=== PATIENT | female | born 1995 | race Caucasian/White ===

== ENCOUNTER 2019-02-02 14:21 | Emergency (ER) | payer MEDICAID, SELFPAY ==
[2019-02-02 14:28] VITALS: BP 111/59; PULSE 93; RESP 16; TEMP 37; O2SAT 98
--- NOTE | 2019-02-02 15:21 | DI.CT_ITS ---
EXAM: CT ABDOMEN PELVIS W CLINICAL HISTORY: abdominal pain after IUD placement TECHNIQUE: Imaging Protocol: Axial computed tomography images with coronal and sagittal reformatted images were created and reviewed CONTRAST MATERIAL: Intravenous: Omnipaque 350 Contrast volume:100 mL contrast route:IV - Oral: No COMPARISON: ABD PELVIS WITH CONTRAST from 06/05/2016 FINDINGS: ABDOMEN: Lung Bases: Normal where visualized. Liver: Normal density. No measurable mass. Gallbladder and biliary tract: No radiodense calculus or dilation. Pancreas: Normal density, no abnormal calcifications or inflammatory process. Spleen: Normal. Kidneys: Normal size, contour and axis. No radiodense stones or obstructive uropathy. No masses seen. Adrenal glands: No masses seen. Abdominal Aorta: Abdominal portion non-dilated. PELVIS: Bladder: Symmetric distention, no gross wall thickening. Bowel: No obstruction or bowel wall thickening. The appendix is normal in size without evidence of ad jacent mesenteric fat stranding or adjacent fluid collection. Peritoneal cavity: No ascites, collection or mesenteric inflammatory response. Bones: Within normal limits. Reproductive organs: Within normal limits. Note is made of an intrauterine device within the endometr ial cavity. The IUD appears well positioned. Follicles are seen in the ovaries bilaterally. Lymph nodes: Unremarkable. Impression: No evidence of an acute abdomen. DATA REPOSITORY: All CT scans at this facility are submitted to the National Radiology Data Registry (NRDR) Dose Index Registry (DIR) with the [employer] (A[employer]). RADIATION OPTIMIZATION: All CT scans at this facility use at least one of these dose optimization te chniques: automated exposure control; mA and/or kV adjustment per patient size (includes targeted exa ms where dose is matched to clinical indication); or iterative reconstruction.
[2019-02-02] MEDS: Normal Saline 1,000 ML 1000 ML IV ×2 (15:32→16:05)
[2019-02-02 15:40] LABS: Abs Immature Grans 0.02 k/cumm (0.0-0.09); Absolute Basophil Count 0.04 k/cumm (0.0-0.2); Absolute Eosinophil Count 0.25 k/cumm (0.0-0.7); Absolute Lymphocyte Count 1.66 k/cumm (1.2-3.4); Absolute Monocyte Count 0.81 k/cumm (0.11-0.7); Basophils % 0.4; Eosinophils % 2.5; HCT 38.7 % (36.0-46.0); HGB 12.6 g/dL (12.0-15.5); Immature Grans % 0.2; Lactate 0.7 mmol/L (0.6-1.4); Lymphocytes % 16.5; Mean Corp. HGB Concentration 32.6 g/dL (32.0-36.0); Mean Corpuscular Hemoglobin 29.6 pg (27.0-33.0); Mean Corpuscular Volume 91.1 fL (80-95); Mean Platelet Volume 10.8 fL (8.0-11.0); Neutrophils % 72.4; Platelet Count 304 x1000/uL (130-400); RBC 4.25 m/cumm (4.00-5.20); RBC Distribution Width 12.7 % (11.7-14.6); White Blood Cell Count 10.08 k/cumm (4.4-10.8)
[2019-02-02 15:57] LABS: ALT 13 U/L (14-59); AST 10 U/L (15-37); Albumin 3.5 g/dL (3.4-5.0); Alkaline Phosphatase 74 U/L (46-116); Anion Gap 6.3 mmol/L (3-11); BUN 7 mg/dL (7-18); Bilirubin, Total 0.3 mg/dL (0.2-1.0); CO2 28.7 mmol/L (21.0-32.0); CREATININE 0.81 mg/dL (0.55-1.02); Calcium 8.8 mg/dL (8.5-10.1); Chloride 105 mmol/L (98-107); Glucose 78 mg/dL (74-106); Potassium 3.9 mmol/L (3.5-5.1); Sodium 140 mmol/L (136-145); Total Protein 7.6 g/dL (6.4-8.2)
--- NOTE | 2019-02-02 16:02 | ED.GENADUL_ITS ---
Discharge Plan Disposition Patient Disposition: HOME Condition: Stable Discharge Details Chief Complaint: RN OUTPATIENT SURGERY Clinical Impression: Pelvic pain, Endometritis Primary Care Provider: April,Local ED Provider: Alice Leung Home Meds and New Rx's Prescriptions: New amoxicillin-pot clavulanate [Augmentin] 875-125 mg tablet 1 tab PO BID Qty: 19 RF: 0 Continued ibuprofen 600 MG tablet 600 mg PO TID Qty: 30 RF: 0 sertraline [Zoloft] 25 mg Tablet 25 mg PO DAILY RF: 0 Discharge Instructions Instructions: Amoxicillin/Clavulanate Potassium (By mouth), Endometritis (ED), Pelvic Pain (ED) Additional Instructions: Please return immediately to the emergency department if you develop any new or worsening symptoms or if you become otherwise concerned. It is extremely important that you call soon as possible to make an appointment to be seen in follow-up for this visit by your chief of police and also by your primary care doctor. Referrals: Nighat Balderas MD [[facility] STAFF PHYSICIAN] - Discharge Data Discharge Date/Time-TO BE ENTERED AT DEPARTURE: 02/02/19 18:04 Medical Decision Making <Alice Leung MD - Last Filed: 02/02/19 18:06> Beryl Porras is a 23-year-old woman with a history of CHF, UTI who presented to the emergency department with pelvic pain since recent IUD placement, patient signed out to me at time of shift change by GABRIELLA Martino pending CT abdomen pelvis, labs, pelvic exam, and discussion with Dr. Balderas of gynecology conducted prior to signout, plan for CT abdomen pelvis and if negative treat for endometritis. Please see her note for initial H&P. CT abdomen/pelvis nondiagnostic. Patient very well and nontoxic appearing on reassessment. Concern for endometritis based on pelvic exam as performed by Ramonita Alvarez. Exam/history is not consistent with sepsis, other acute emergent life-threatening process. I did discuss these results with Dr. Balderas of gynecology, who recommended Augmentin for endometritis, outpatient follow-up, leave IUD in place at this time. I had a lengthy discussion with the patient regarding return to emergency department precautions, importance of outpatient follow-up with her PCP and also with gynecology, and home care. Patient verbalized understanding of the plan and was amenable. All questions were answered. Patient was discharged home with clear plan for outpatient follow-up. Medical Records Medical records reviewed: Yes I reviewed the patient's medical records. Imaging Data Radiologic Study: Attestation: I personally reviewed and interpreted this imaging study as follows: Radiologist's impression: Exam: CT Abdomen And Pelvis With Contrast Exam date and time: 02/02/2019 3:23 PM Age: 23 years old Clinical history: Abdominal pain; Patient HX: Pain after iud placement on 02/01 TECHNIQUE: Imaging protocol: Computed tomography of the abdomen and pelvis with intravenous contrast. COMPARISON: CT ABD PELVIS WITH CONTRAST 06/05/2016 11:06 PM FINDINGS: Liver: Normal. No mass. Gallbladder and bile ducts: Normal. No calcified stones. No ductal dilation. Pancreas: Normal. No ductal dilation. Spleen: Normal. No splenomegaly. Adrenals: Normal. No mass. Kidneys and ureters: Normal. No hydronephrosis. Stomach and bowel: Unremarkable. No obstruction. No mucosal thickening. Appendix: No evidence of appendicitis. Intraperitoneal space: There is a small are free fluid in the cul-de-sac. Vasculature: Unremarkable. No abdominal aortic aneurysm. Lymph nodes: Unremarkable. No enlarged lymph nodes. Bladder: Unremarkable as visualized. Reproductive: The uterus is retroverted. There is a T-shaped IUD within the endometrial cavity. The bars of the IUD are well-positioned within the fundus. The ovaries contain multiple small follicles. Bones/joints: Unremarkable. No acute fracture. Soft tissues: Unremarkable. IMPRESSION: No etiology of the patient's pain is demonstrated. The IUD appears to be in good position. Lab Data Lab results reviewed: Yes I reviewed the patient's lab results. Labs: 02/02/19 17:18 Urine - Reflex from Ua Urine Culture - Pending 02/02/19 15:26 Vaginal Vaginitis Screen - Final Laboratory Tests Range/Units 02/02/19 02/02/19 02/02/19 15:26 15:26 15:26 WBC (4.4-10.8) k/cumm 10.08 RBC (4.00-5.20) m/cumm 4.25 Hgb (12.0-15.5) g/dL 12.6 Hct (36.0-46.0) % 38.7 MCV (80-95) fL 91.1 MCH (27.0-33.0) pg 29.6 MCHC (32.0-36.0) g/dL 32.6 RDW (11.7-14.6) % 12.7 Plt Count (130-400) x1000/uL 304 MPV (8.0-11.0) fL 10.8 Immature Gran % 0.2 Neutrophils % 72.4 Lymphocytes % 16.5 Monocytes % 8.0 Eosinophils % 2.5 Basophils % 0.4 Absolute Neutrophils (1.2-6.7) k/cumm 7.30 H Absolute Lymphocytes (1.2-3.4) k/cumm 1.66 Absolute Monocytes (0.11-0.7) k/cumm 0.81 H Absolute Eosinophils (0.0-0.7) k/cumm 0.25 Absolute Basophils (0.0-0.2) k/cumm 0.04 Sodium (136-145) mmol/L 140 Potassium (3.5-5.1) mmol/L 3.9 Chloride (98-107) mmol/L 105 Carbon Dioxide (21.0-32.0) mmol/L 28.7 Anion Gap (3-11) mmol/L 6.3 BUN (7-18) mg/dL 7 Creatinine (0.55-1.02) mg/dL 0.81 Estimated GFR/1.73 m2 (mL/min/1.73m2) >= 60.00 Glucose (74-106) mg/dL 78 Lactate (0.6-1.4) mmol/L 0.7 Calcium (8.5-10.1) mg/dL 8.8 Total Bilirubin (0.2-1.0) mg/dL 0.3 AST (15-37) U/L 10 L ALT (14-59) U/L 13 L Alkaline Phosphatase (46-116) U/L 74 Total Protein (6.4-8.2) g/dL 7.6 Albumin (3.4-5.0) g/dL 3.5 Urine Color (Yellow) Urine Clarity (Clear) Urine pH (5-8) Ur Specific [place] (1.005-1.025) Urine Protein (Negative) mg/dL Urine Ketones (Negative) mg/dL Urine Blood (Negative) Urine Nitrite (Negative) Urine Bilirubin (Negative) Urine Urobilinogen (Up TO 0.2) EU/dL Ur Leukocyte Esterase (Negative) Urine RBC (0-2) HPF Urine WBC (0-5) HPF Ur Epithelial Cells (Negative) HPF Urine Crystals (Negative) HPF Urine Bacteria (Negative) HPF Urine Mucus (Negative) Ur Culture Indicated? Urine Glucose (Negative) mg/dL Chlamydia/GC Source Chlamydia DNA Probe N.gonorrhoeae DNA Probe Range/Units 02/02/19 02/02/19 15:26 17:18 WBC (4.4-10.8) k/cumm RBC (4.00-5.20) m/cumm Hgb (12.0-15.5) g/dL Hct (36.0-46.0) % MCV (80-95) fL MCH (27.0-33.0) pg MCHC (32.0-36.0) g/dL RDW (11.7-14.6) % Plt Count (130-400) x1000/uL MPV (8.0-11.0) fL Immature Gran % Neutrophils % Lymphocytes % Monocytes % Eosinophils % Basophils % Absolute Neutrophils (1.2-6.7) k/cumm Absolute Lymphocytes (1.2-3.4) k/cumm Absolute Monocytes (0.11-0.7) k/cumm Absolute Eosinophils (0.0-0.7) k/cumm Absolute Basophils (0.0-0.2) k/cumm Sodium (136-145) mmol/L Potassium (3.5-5.1) mmol/L Chloride (98-107) mmol/L Carbon Dioxide (21.0-32.0) mmol/L Anion Gap (3-11) mmol/L BUN (7-18) mg/dL Creatinine (0.55-1.02) mg/dL Estimated GFR/1.73 m2 (mL/min/1.73m2) Glucose (74-106) mg/dL Lactate (0.6-1.4) mmol/L Calcium (8.5-10.1) mg/dL Total Bilirubin (0.2-1.0) mg/dL AST (15-37) U/L ALT (14-59) U/L Alkaline Phosphatase (46-116) U/L Total Protein (6.4-8.2) g/dL Albumin (3.4-5.0) g/dL Urine Color (Yellow) Yellow Urine Clarity (Clear) Clear Urine pH (5-8) 7.0 Ur Specific [place] (1.005-1.025) 1.015 Urine Protein (Negative) mg/dL Negative Urine Ketones (Negative) mg/dL Trace H Urine Blood (Negative) Negative Urine Nitrite (Negative) Positive H Urine Bilirubin (Negative) Negative Urine Urobilinogen (Up TO 0.2) EU/dL 0.2 Ur Leukocyte Esterase (Negative) Negative Urine RBC (0-2) HPF 0-2 Urine WBC (0-5) HPF 5-10 Ur Epithelial Cells (Negative) HPF Few Urine Crystals (Negative) HPF Negative Urine Bacteria (Negative) HPF Many Urine Mucus (Negative) Negative Ur Culture Indicated? Yes Urine Glucose (Negative) mg/dL Negative Chlamydia/GC Source Cancelled Chlamydia DNA Probe Cancelled N.gonorrhoeae DNA Probe Cancelled <GABRIELLA Arora - Last Filed: 02/03/19 16:08> Is a 23-year-old patient who presents for 2 weeks of abdominal pain and vaginal bleeding status post IUD insertion at [facility]. Patient reports mo derate vaginal bleeding, using 2 boxes of tampons in the last 2 week. Patient reports increasing abdominal pain as well as abdominal distention noted. Patient reports cramping pain. Patient reports initially noting a fever for the first 3 days which has since resolved. Patient reports persistent chills and nausea without vomiting. Patient is concerned with a complication after IUD placement due to persistence of pain and bleeding. Patient denies significant dizziness. Is eating and drink without difficulty. Has no urinary or bowel changes. I spoke with Dr. Balderas of [facility] regarding patient's case and presentation. She recommended CT with IV contrast for best initial testing. Discussed the possibility of endometritis Labs as well as CT pending for patient signout. HPI <Alice Leung MD - Last Filed: 02/02/19 18:06> General Date/Time Provider Initiated Documentation: 02/02/19 14:30 . Related Data Home Medications Medication Instructions Recorded Confirmed ibuprofen 600 mg PO TID #30 tab 08/29/14 02/02/19 amoxicillin-pot clavulanate 1 tab PO BID #19 tab 02/02/19 [Augmentin] sertraline [Zoloft] 25 mg PO DAILY 02/02/19 02/02/19 Previous Rx's Medication Instructions Recorded ibuprofen 600 mg PO TID #30 tab 08/29/14 amoxicillin-pot clavulanate 1 tab PO BID #19 tab 02/02/19 [Augmentin] Allergies Allergy/AdvReac Type Severity Reaction Status Date / Time No Known Allergies Allergy Unverified 02/02/19 14:32 <GABRIELLA Arora - Last Filed: 02/03/19 16:08> HPI Narrative: Is a 23-year-old patient who presents to the emergency room for 2 weeks of abdominal pain. Patient also complaining of vaginal bleeding. Patient reports she recently had an IUD placed 2 weeks ago. Patient admits to painful insertion. Patient reports persistent abdominal pain since that time. Patient reports lower abdominal pain noting abdominal bloating and vaginal bleeding for the last 2 weeks. Patient reports a mucousy discharge in addition to blood which was noted. Patient reports she used 2 boxes of tampons. Patient denies heavy bleeding at this time. Patient does report fever for approximately 3 days after IUD was inserted up to 102. Patient reports fever since have entirely resolved. Patient reports nausea without active vomiting. Patient denies any recent sexual activity. She is not concerned with at this time. She did have a negative test at time of IUD insertion has not had intercourse since. Patient denies significant headache or dizziness. Patient has been able to eat and drink without difficulty. No significant diarrhea. General Stated Complaint: RN OUTPATIENT SURGERY GABRIEL: 3 <GABRIELLA Arora - Last Filed: 02/03/19 16:08> All systems reviewed & are unremarkable except as noted in HPI and below Constitutional Constitutional: Reports chills and Reports malaise ENT Ears, Nose, Mouth, and Throat: Denies sinus pain and Denies sore throat Cardiovascular Cardiovascular: Denies dyspnea Respiratory Respiratory: Denies cough, Denies pain on inspiration, Denies pain with cough and Denies dyspnea Gastrointestinal Gastrointestinal: Reports abdominal pain, Reports cramping, Reports nausea and Denies vomiting Genitourinary Genitourinary: Reports abnormal vaginal bleeding, Denies dysuria, Denies urinary hesitancy, Denies urinary urgency, Reports vaginal discharge and Denies vaginal pruritus PENDING SALE TO [facility] <Alice Leung MD - Last Filed: 02/02/19 18:06> Social History Smoking/Tobacco Use Status: Current-Occasional Tobacco Type: cigarettes and e- cigarettes Alcohol Intake: never Drug use: Daily Substance use type: marijuana Do you feel safe at home: Yes Do you feel safe in your relationship?: Yes <GABRIELLA Arora - Last Filed: 02/03/19 16:08> Narrative Exam Narrative: CONST: Healthy appearing patient, in no acute distress. Well hydrated. Alert and alert. HENMT: Head nomocephalic, normal to inspection. Atraumatic. Hearing grossly normal. External ear canal no erythema or swelling. TM normal bilaterally. Nose normal to inspection. No rhinnorhea. Normal facial exam. Oral mucosa normal. Tounge normal. Dentition normal. Normal posterior oropharynx. Uvula midline. EYES: General normal appearance. Alignment normal. Eyelids normal. Conjunctiva normal. Sclera normal. PERRL. NECK: Normal visual inspection. FROM. No lymphadenopathy. Trachea midline. No Midline tenderness. GI: Normal inspection of abdomen. No distension. Soft. Lower abdominal discomfort with palpation.. Bowel sounds present in all 4 quadrants. No rebound. No gaurding. /pelvic: Patient has IUD string present at the cervix. Patient has a mucus and purulent discharge present with no significant active bleeding at this time. Cervix is closed. Cervical motion tenderness noted on exam. MUSCULOSKELETAL: Normal Gait. FROM of all extremities. Distal neurovascularly intact. Sensation intact distally. SKIN: Normal. Dry. No rashes. NEURO: Alert and awake. Speech clear. PSYCH: Normal affect. Cooperative. <GABRIELLA Arora - Last Filed: 02/03/19 16:08> Vital Signs Vital signs: Vital Signs Temperature 37.0 C 02/02/19 14:28 Pulse 93 H 02/02/19 14:28 Respiratory Rate 16 02/02/19 14:28 Blood Pressure 111/59 L 02/02/19 14:28 Pulse Oximetry 98 02/02/19 14:28 Temperature 37.0 C 02/02/19 14:28 Temperature Source Skin 02/02/19 14:28 Pulse 93 H 02/02/19 14:28 Respiratory Rate 16 02/02/19 14:28 Respiratory Effort Non-Labored 02/02/19 14:28 Blood Pressure 111/59 L 02/02/19 14:28 Blood Pressure Position Sitting 02/02/19 14:28 Pulse Oximetry 98 02/02/19 14:28 Oxygen Delivery Method Room Air 02/02/19 14:28 Oxygen Flow Rate 0 02/02/19 14:28 Pain Level 8 02/02/19 14:28 Lab/Test Results Lab/Test Results: 02/02/19 15:26 Vaginal Vaginitis Screen - Pending Laboratory Tests Range/Units 02/02/19 02/02/19 02/02/19 15:26 15:26 15:26 WBC (4.4-10.8) k/cumm 10.08 RBC (4.00-5.20) m/cumm 4.25 Hgb (12.0-15.5) g/dL 12.6 Hct (36.0-46.0) % 38.7 MCV (80-95) fL 91.1 MCH (27.0-33.0) pg 29.6 MCHC (32.0-36.0) g/dL 32.6 RDW (11.7-14.6) % 12.7 Plt Count (130-400) x1000/uL 304 MPV (8.0-11.0) fL 10.8 Immature Gran % 0.2 Neutrophils % 72.4 Lymphocytes % 16.5 Monocytes % 8.0 Eosinophils % 2.5 Basophils % 0.4 Absolute Neutrophils (1.2-6.7) k/cumm 7.30 H Absolute Lymphocytes (1.2-3.4) k/cumm 1.66 Absolute Monocytes (0.11-0.7) k/cumm 0.81 H Absolute Eosinophils (0.0-0.7) k/cumm 0.25 Absolute Basophils (0.0-0.2) k/cumm 0.04 Sodium (136-145) mmol/L 140 Potassium (3.5-5.1) mmol/L 3.9 Chloride (98-107) mmol/L 105 Carbon Dioxide (21.0-32.0) mmol/L 28.7 Anion Gap (3-11) mmol/L 6.3 BUN (7-18) mg/dL 7 Creatinine (0.55-1.02) mg/dL 0.81 Estimated GFR/1.73 m2 (mL/min/1.73m2) >= 60.00 Glucose (74-106) mg/dL 78 Lactate (0.6-1.4) mmol/L 0.7 Calcium (8.5-10.1) mg/dL 8.8 Total Bilirubin (0.2-1.0) mg/dL 0.3 AST (15-37) U/L 10 L ALT (14-59) U/L 13 L Alkaline Phosphatase (46-116) U/L 74 Total Protein (6.4-8.2) g/dL 7.6 Albumin (3.4-5.0) g/dL 3.5 Sign Out <Alice Leung MD - Last Filed: 02/02/19 18:06> Sign Out Data: Sign Out Comment: Patient signed out pending CT with IV contrast for vaginal bleeding and abdominal pain after IUD insertion 2 weeks ago. Last updated by Anusha Alvarez PA at 02/02/19 16:03
[2019-02-02] MEDS: Ondansetron 4 MG/2 ML VIAL IVP (16:05)
[2019-02-02] MEDS: Omnipaque 350 MG/ML 100 ML BTL IJ (16:34)
[2019-02-02 16:39] VITALS: BP 98/58; PULSE 75; O2SAT 98
--- NOTE | 2019-02-02 16:40 | NUR.NOTE ---
Nursing Note: returned from ct. pt a little more comfortable.
[2019-02-02 16:41] VITALS: O2SAT 99
[2019-02-02 16:45] VITALS: BP 100/60; PULSE 73; O2SAT 99
[2019-02-02 16:50] VITALS: O2SAT 97
[2019-02-02 17:01] VITALS: O2SAT 98
--- NOTE | 2019-02-02 17:02 | DI.VRAD_ITS ---
PROCEDURE INFORMATION: Exam: CT Abdomen And Pelvis With Contrast Exam date and time: 02/02/2019 3:23 PM Age: 23 years old Clinical history: Abdominal pain; Patient HX: Pain after iud placement on 02/01 TECHNIQUE: Imaging protocol: Computed tomography of the abdomen and pelvis with intravenous contrast. COMPARISON: CT ABD PELVIS WITH CONTRAST 06/05/2016 11:06 PM FINDINGS: Liver: Normal. No mass. Gallbladder and bile ducts: Normal. No calcified stones. No ductal dilation. Pancreas: Normal. No ductal dilation. Spleen: Normal. No splenomegaly. Adrenals: Normal. No mass. Kidneys and ureters: Normal. No hydronephrosis. Stomach and bowel: Unremarkable. No obstruction. No mucosal thickening. Appendix: No evidence of appendicitis. Intraperitoneal space: There is a small are free fluid in the cul-de-sac. Vasculature: Unremarkable. No abdominal aortic aneurysm. Lymph nodes: Unremarkable. No enlarged lymph nodes. Bladder: Unremarkable as visualized. Reproductive: The uterus is retroverted. There is a T-shaped IUD within the endometrial cavity. The bars of the IUD are well-positioned within the fundus. The ovaries contain multiple small follicles. Bones/joints: Unremarkable. No acute fracture. Soft tissues: Unremarkable. IMPRESSION: No etiology of the patient's pain is demonstrated. The IUD appears to be in good position. Dictated and Authenticated by: Reuben Rosales MD. Ordering:DEZ Tavares MD
[2019-02-02 17:28] LABS: Bilirubin Negative (Negative); Blood Negative (Negative); Clarity Clear (Clear); Glucose Negative (Negative); Ketones Trace mg/dL (Negative); Leukocyte Esterase Negative (Negative); Nitrite Positive (Negative); Specific Gravity 1.015 (1.005-1.025); Urobilinogen 0.2 EU/dL (Up TO 0.2)
[2019-02-02 17:35] LABS: Bacteria Many HPF (Negative); C & S Indicated? Yes; Crystals Negative HPF (Negative); Epithelial Cells Few HPF (Negative); Mucus Negative (Negative); RBC 0-2 HPF (0-2)
[2019-02-02] MEDS: Amoxicillin 875/Clav. 125 TAB PO (17:58)
--- NOTE | 2019-02-06 14:43 | ED.FU.B_ITS ---
Follow Up Plan: Received call back from lab, patient pelvic cultures positive for chlamydia, negative for gonorrhea. I discussed prior patient presentation and lab results with Dr. Crisostomo of gynecology, who requested that patient schedule an appointment to be seen within the next 2 to 3 days for IUD removal and possible alternative antibiotic treatment depending on patient exam. I called patient at [facility] on the phone and relayed lab results to her. Patient patient reports that her abdominal pain has resolved since starting antibiotics, but she continues to have vaginal discharge. I discussed plan for her to have outpatient follow-up with gynecology for removal of IUD and further evaluation. Patient verbalized understanding of the plan, number for women's wellness provided, patient states she will call directly after speaking with me. I did give her the emergency department number for call back if she has any difficulty scheduling that appointment.
[2019-02-06 15:11] LABS: Chlamydia Result Positive (Negative); GC Result Negative (Negative)
== END 2019-02-02 18:04 | disposition home or self-care (01) ==
PROVIDERS: Physician Assistant; Emergency Provider Student in an Organized Health Care Education/Training Program
DX: A56.11 Chlamydial female pelvic inflammatory disease (principal); R10.2 Pelvic and perineal pain; T83.84XA Pain due to genitourinary prosthetic devices, implants and grafts, initial encounter; Z97.5 Presence of (intrauterine) contraceptive device
CPT/HCPCS: 36415; 80053; 81025; 87077; 87491; 87591; 96361; 96374; 96375; 99285; 74177; 81003; 81015; 83605; 85025; 87086; 87186; 87480; 87510; 87660; 99284; J2405; J3490

== ENCOUNTER 2019-03-23 14:58 | Emergency (ER) | payer MEDICAID, SELFPAY ==
[2019-03-23 15:05] VITALS: BP 112/71; PULSE 85; RESP 14; TEMP 36.3; O2SAT 100
--- NOTE | 2019-03-23 15:25 | W.ED.GENAD ---
Discharge Plan Disposition Patient Disposition: HOME Condition: Stable Discharge Details Chief Complaint: Orthopedic Clinical Impression: Sprain of toe Primary Care Provider: April,Local ED Provider: Reuben Rose Home Meds and New Rx's Prescriptions: Continued ibuprofen 600 MG tablet 600 mg PO TID Qty: 30 RF: 0 sertraline [Zoloft] 25 mg Tablet 25 mg PO DAILY RF: 0 Discharge Instructions Additional Instructions: you can take 1000mg tylenol and 600mg ibuprofen every 6 hours for pain as needed if pain continues next week see your primary care provider if you have high fevers, severe worsening pain or spreading redness up the foot return to the emergency department Medical Decision Making 23 yo female comes in with right toe pain. Denies any known trauma but has had more walking in the recent past than normal. Denies fevers or chills or rash. She has no erythema of the right middle toe, does have pain with palpation of the right distal toe with full rom and intact sensation and no warmth to touch. Suspect strain but will xray to eval for fx xray negative for fx, will d/c home and advised f/u with pcp if pain continues next week Differential Diagnosis Differential Diagnosis: contusion, fx, strain Imaging Data Radiologic Study: Attestation: I personally reviewed and interpreted this imaging study as follows: Imaging: X-Ray Radiologist's impression: no acute findings HPI General Mode of arrival: ambulatory. Date/Time Provider Initiated Documentation: 03/23/19 15:03. Limitations to Documentation: no limitations. Information obtained by: patient. History of Present Illness 23 year old F presents to the emergency department with the chief complaint of right middle toe pain, described as moderate, Quality is described as aching, and is localized to the right and lower extremity. Patient reports no radiation. Patient started experiencing this day(s) (2) and it has been constant. Rest improves symptom(s), Movement worsens symptoms . Patient notes no other symptoms.. Patient did receive the following treatments prior to arrival, none Related Data Home Medications Medication Instructions Recorded Confirmed ibuprofen 600 mg PO TID #30 tab 08/29/14 03/23/19 sertraline [Zoloft] 25 mg PO DAILY 02/02/19 03/23/19 Previous Rx's Medication Instructions Recorded ibuprofen 600 mg PO TID #30 tab 08/29/14 Allergies Allergy/AdvReac Type Severity Reaction Status Date / Time No Known Allergies Allergy Unverified 03/23/19 15:08 General Stated Complaint: Orthopedic GABRIEL: 4 Review of Systems All systems reviewed & are unremarkable except as noted in HPI and below Constitutional Constitutional: Denies chills, Denies fever(s) and Denies weakness Cardiovascular Cardiovascular: Denies chest pain and Denies dyspnea Respiratory Respiratory: Denies cough and Denies dyspnea Gastrointestinal Gastrointestinal: Denies abdominal pain, Denies nausea and Denies vomiting Musculoskeletal Musculoskeletal: Denies joint swelling Neurologic Neurologic: Denies weakness Endocrine Endocrine: Denies heat intolerance [facility] Social History Smoking/Tobacco Use Status: Current-Occasional Tobacco Type: cigarettes and e-cigarettes Alcohol Intake: never Drug use: Daily Substance use type: marijuana Do you feel safe at home: Yes Do you feel safe in your relationship?: Yes History History 2 Para 1 Hx # Term Pregnancies Multiple births Hx # Pregnancies Ectopic pregnancies AB induced Hx Number of Living Children AB spontaneous Exam Const General: no acute distress Orientation: alert HENMT Head: normal to inspection Ears: external ears normal General nose exam: external nose normal Mouth: moist mucous membranes Eyes General: appearance normal, both eyes and all related structures Neck Neck: normal visual inspection Resp Effort & Inspection: normal respiratory effort and able to speak in complete sentences Cardio Rate: regular rate Skin General skin exam: no rashes or lesions noted Neuro General: alert and oriented x3 Extrem General: normal to inspection Psych Mental Status: mental status grossly normal Course Vital Signs Vital signs: Vital Signs Temperature 36.3 C L 03/23/19 15:05 Pulse 85 03/23/19 15:05 Respiratory Rate 14 03/23/19 15:05 Blood Pressure 112/71 03/23/19 15:05 Pulse Oximetry 100 03/23/19 15:05 Temperature 36.3 C L 03/23/19 15:05 Temperature Source Temporal Artery Scan 03/23/19 15:05 Pulse 85 03/23/19 15:05 Respiratory Rate 14 03/23/19 15:05 Respiratory Effort Non-Labored 03/23/19 15:07 Blood Pressure 112/71 03/23/19 15:05 Blood Pressure Position Sitting 03/23/19 15:05 Pulse Oximetry 100 03/23/19 15:05 Oxygen Delivery Method Room Air 03/23/19 15:05 Oxygen Flow Rate 0 03/23/19 15:05 Pain Level 4 03/23/19 15:05
[2019-03-23] MEDS: Acetaminophen 500 MG TAB 1000 MG PO (15:29)
--- NOTE | 2019-03-23 15:33 | DI.RAD_ITS ---
EXAM: XR TOE RT THIRD CLINICAL HISTORY: pain TECHNIQUE: COMPARISON: LEFT FOOT COMPLETE from 06/05/2016 FINDINGS: Three views were obtained no fracture is seen. IMPRESSION:
[2019-03-23 16:07] VITALS: BP 112/71; PULSE 85; RESP 14; TEMP 36.3; O2SAT 100
== END 2019-03-23 16:24 | disposition home or self-care (01) ==
LOC: ER 16:21
PROVIDERS: Emergency Provider Emergency Medicine
DX: S93.504A Unspecified sprain of right lesser toe(s), initial encounter (principal); X58.XXXA Exposure to other specified factors, initial encounter
CPT/HCPCS: 81025; 99283; 73660

== ENCOUNTER 2019-05-01 11:47 | Emergency (ER) | payer MEDICAID, SELFPAY ==
[2019-05-01 11:57] VITALS: BP 106/60; PULSE 81; RESP 16; TEMP 36.4; O2SAT 97
--- NOTE | 2019-05-01 12:44 | W.ED.GENAD ---
Discharge Plan Disposition Patient Disposition: HOME Condition: Stable Discharge Details Chief Complaint: Nk/Back Pain Clinical Impression: Buttock pain, Sciatica Primary Care Provider: April,Local ED Provider: Alice Leung Home Meds and New Rx's Prescriptions: New cyclobenzaprine 10 mg tablet 10 mg PO TID PRN (Reason: muscle spasm) Qty: 15 RF: 0 Continued ibuprofen 600 MG tablet 600 mg PO TID Qty: 30 RF: 0 sertraline [Zoloft] 25 mg Tablet 25 mg PO DAILY RF: 0 Discharge Instructions Instructions: Ibuprofen (By mouth), Cyclobenzaprine (By mouth), Sciatica (ED), Lumbar Radiculopathy (ED), Leg Pain (ED), Lower Back Exercises (ED) Additional Instructions: Please return immediately to the emergency department if you develop any new or worsening symptoms, if your condition does not improve as expected, or if you become otherwise concerned. It is extremely important that you call soon as possible to make an appointment to be seen in follow-up for this visit by your primary care doctor and by a physical therapist. Please do not drive, make important decisions, care for small children, or operate machinery while taking cyclobenzaprine. Do not take cyclobenzaprine with alcohol or any other sedating drugs or medications. You may take 600 mg of ibuprofen 3 times a day for pain as we discussed. 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 On exam patient is very well and nontoxic-appearing. Back is nontender to palpation, mild tenderness left buttock that reproduces pain. Concern for sciatica. Exam/history is not consistent with cauda equina syndrome, epidural abscess, epidural hematoma, other cord compression, myositis, other infectious etiology of symptoms. Plan for cyclobenzaprine, outpatient follow-up. I had a lengthy discussion with Patient regarding return to emergency department precautions, home care, and importance of outpatient follow-up. Pt verbalizes understanding of the plan and is amenable. Patient discharged to home with clear plan for outpatient follow-up. All questions were answered. Disposition decision was made weighing the risks and benefits of hospitalization versus outpatient treatment, the risk for further decompensation, and the patient's wishes. Medical Records Medical records reviewed: Yes I reviewed the patient's medical records. HPI General Mode of arrival: ambulatory. Date/Time Provider Initiated Documentation: 05/01/19 12:12. Limitations to Documentation: no limitations. Information obtained by: patient, RN notes reviewed and old records reviewed. HPI Narrative: Beryl Porras is a 23-year-old woman with a history of CHF resulting from infection as an now with essentially normal ejection fraction, no other reported medical problems, presenting to the emergency department with buttock and leg pain. Patient reports that she has had 3 weeks of constant unchanged sharp/burning sensation that starts in her left buttock and radiates down the back of her left leg. Patient reports that pain is worse with changing positions. Patient reports that she had several days of the same pain at age 15 after riding horse for 3 hours, but has not had similar pain since. Patient reports no trauma or known inciting event, but she does frequently lift and carry her son who weighs 70 pounds. She denies any other pain, fever, vomiting, diarrhea, shortness of breath, cough, numbness of the legs, saddle region, or genitals, urinary incontinence or hesitancy, constipation, weakness lower legs. Patient reports that she feels otherwise in her usual state of health. Has been able to walk and go about her usual daily activities. Related Data Home Medications Medication Instructions Recorded Confirmed ibuprofen 600 mg PO TID #30 tab 08/29/14 05/01/19 sertraline [Zoloft] 25 mg PO DAILY 02/02/19 05/01/19 cyclobenzaprine 10 mg PO TID PRN #15 tab 05/01/19 Previous Rx's Medication Instructions Recorded ibuprofen 600 mg PO TID #30 tab 08/29/14 cyclobenzaprine 10 mg PO TID PRN #15 tab 05/01/19 Allergies Allergy/AdvReac Type Severity Reaction Status Date / Time No Known Allergies Allergy Unverified 05/01/19 12:00 General Stated Complaint: Nk/Back Pain GABRIEL: 4 Review of Systems Narrative: Constitutional: denies fevers Eyes: denies eye pain ENT: denies ear pain, dental pain, sore throat Cardiovascular: denies chest pain Respiratory: denies SOB, cough GI: denies abdominal pain, vomiting, diarrhea, constipation : denies flank pain, urinary hesitancy, incontinence MSK: denies neck pain, arthralgias, myalgias, reports back pain Skin: denies rash Neuro: denies headaches, numbness, weakness PFSH Social History Smoking/Tobacco Use Status: Current-Occasional Tobacco Type: cigarettes Alcohol Intake: never Drug use: Daily Substance use type: marijuana Do you feel safe at home: Yes Do you feel safe in your relationship?: Yes History History 2 Para 1 Hx # Term Pregnancies Multiple births Hx # Pregnancies Ectopic pregnancies AB induced Hx Number of Living Children AB spontaneous Exam Narrative Exam Narrative: Constitutional: well and [id number], pleasant, conversing normally HENT: head atraumatic/normocephalic/normal inspection, mucous membranes moist Eyes: conjunctiva normal, sclera normal, pupils 3mm b/l Neck: no stridor, normal ROM, trachea midline Resp: normal work of breathing, LCTAB Cardio: normal rate, normal rhythm, no murmur appreciated Back: normal inspection, no rash, no midline lumbar or sacral tenderness palpation, no paraspinal tenderness palpation Skin: warm, dry, normal color, no rash Neuro: alert, not altered, grossly non-focal, normal tone, motor 5 out of 5 bilateral lower extremities, normal sensation bilateral extremities including saddle region Ext: Mild tenderness palpation that somewhat reproduces pain over the left buttock Psych: normal mood, normal affect, normal behavior Course Vital Signs Vital signs: Vital Signs Temperature 36.4 C L 05/01/19 11:57 Pulse 81 05/01/19 11:57 Respiratory Rate 16 05/01/19 11:57 Blood Pressure 106/60 05/01/19 11:57 Pulse Oximetry 97 05/01/19 11:57 Temperature 36.4 C L 05/01/19 11:57 Temperature Source Skin 05/01/19 11:57 Pulse 81 05/01/19 11:57 Respiratory Rate 16 05/01/19 11:57 Respiratory Effort Non-Labored 05/01/19 11:57 Blood Pressure 106/60 05/01/19 11:57 Blood Pressure Position Sitting 05/01/19 11:57 Pulse Oximetry 97 05/01/19 11:57 Oxygen Delivery Method Room Air 05/01/19 11:57 Oxygen Flow Rate 0 05/01/19 11:57 Pain Level 8 05/01/19 12:01
== END 2019-05-01 13:27 | disposition home or self-care (01) ==
PROVIDERS: Emergency Provider Student in an Organized Health Care Education/Training Program
DX: M54.42 Lumbago with sciatica, left side (principal); M54.16 Radiculopathy, lumbar region
CPT/HCPCS: 99283

== ENCOUNTER 2019-05-15 23:28 | Emergency (ER) | payer MEDICAID, SELFPAY ==
--- NOTE | 2019-05-15 23:36 | ED.GENADUL_ITS ---
Discharge Plan Disposition Patient Disposition: HOME Condition: Good Discharge Details Chief Complaint: Chest Pain Clinical Impression: Dyspnea, Palpitations Primary Care Provider: None,None ED Provider: Rustam Johnson Meds and New Rx's Prescriptions: Continued sertraline [Zoloft] 25 mg Tablet 25 mg PO DAILY RF: 0 Discharge Instructions Additional Instructions: EKG, chest x-ray, laboratory studies all look good tonight. Radiology will call you with appointment for echo. Will refer you to cardiology clinic here for follow-up. Care management will assist in arranging for primary care follow-up as well. Return to ED for increasing shortness of breath, weight gain, extremity swelling, chest pain, other concerns or problems. Referrals: Care Management [Provider Group] [facility] [Provider Group] Medical Decision Making Patient presenting with complaints of shortness of breath especially with exertion or lying down as well as palpitations. She has history of CHF and nonischemic cardiomyopathy. She is not on ZEUS inhibitor or beta-sunitha as cardiology would like her to be. She has not seen cardiology for 1 year. Last echo was about a year ago and she had an EF around 50%. She does not look to be in any distress. Her room air saturation at rest is 100%. Her lungs are clear. Her EKG is normal. PERC negative. We will get laboratory studies and chest x-ray. If nothing of significance found will order outpatient echo and refer to cardiology clinic. We will also refer to care management for primary care physician. Patient laboratory studies look fine other than potassium which is low at 3. This is replaced orally. White count is normal. Hemoglobin is normal. BNP is normal. Kidney function normal. Chest x-ray normal per my review with normal- sized heart and no interstitial lung markings. Discussed above with patient. We will plan discharge with order for outpatient echo and follow-up in cardiology clinic. We will also need care management to work on getting primary care follow-up. Return to ED for increasing shortness of breath, syncope, extremity swelling, other concerns or problems. Medical Records Medical records reviewed: Yes I reviewed the patient's medical records. Lab Data Lab results reviewed: Yes I reviewed the patient's lab results. ECG Data Attestation: I personally reviewed and interpreted this ECG (s) as follows: Prior ECG tracings: not available for review Interpretation: Normal sinus rhythm at 84. Normal axis and intervals. Normal ST segments. Normal EKG. HPI General Mode of arrival: ambulatory . Date/Time Provider Initiated Documentation: 05/15/19 23:36 . Limitations to Documentation: no limitations . Information obtained by: patient, RN notes reviewed and old records reviewed . HPI Narrative: Patient presents to ED with complaints of shortness of breath and palpitations. 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 She last saw cardiology about a year ago. She is not currently on any medications except for her Zoloft. Over the last few weeks she has noticed increased shortness of breath especially with exertion or with lying flat. She is noticed palpitations and heart racing. She has not had chest pain. She had fever and URI symptoms a week prior to onset of current symptoms. She continues to make urine. She has not noticed any leg edema. She has noti laura blue fingertips with no good reason why. She does not have a PCP in the area. 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 Related Data Home Medications Medication Instructions Recorded Confirmed sertraline [Zoloft] 25 mg PO DAILY 02/02/19 05/15/19 Allergies Allergy/AdvReac Type Severity Reaction Status Date / Time No Known Allergies Allergy Unverified 05/01/19 12:00 General GABRIEL: 4 Review of Systems Narrative: As documented in HPI otherwise negative as below. Const: no fever, chills, weakness Resp: cough, SOB; no pleuritic pain CV: no CP, diaphoresis, edema, syncope GI: no abdominal pain, nausea, vomiting, diarrhea Neuro: no headache, numbness, focal weakness, confusion [facility] Medical History Anxiety (Chronic) CHF (congestive heart failure) (Chronic) Nonischemic cardiomyopathy (Chronic) Surgical History History of section (Chronic) S/P hernia repair (Chronic) Social History Smoking/Tobacco Use Status: Current every day Tobacco Type: cigarettes Alcohol Intake: never Drug use: Daily Substance use type: marijuana Do you feel safe at home: Yes Do you feel safe in your relationship?: Yes History History 2 Para 1 Hx # Term Pregnancies Multiple births Hx # Pregnancies Ectopic pregnancies AB induced Hx Number of Living Children AB spontaneous Exam Narrative Exam Narrative: Vitals: Afebrile. Elevated blood pressure otherwise normal vitals and normal room air pulse oximetry. Const: WDWN female in NAD. HEENT: NC/AT. Normal facial exam. Eyes: Normal conjunctiva and sclera. Neck: Supple. Trachea midline. Lungs: Normal respiratory effort. Lungs are clear. No rales, rhonchi or wheezes. Cor: RRR without murmur/gallop. Good radial pulses. Neuro: A+O x 3. Normal speech, mentation, gait. Cranial nerves II - XII grossly intact. No gross motor or sensory deficit. Ext: No C/C/E. Skin: Warm and dry without rash.
[2019-05-15 23:37] VITALS: BP 153/93; PULSE 106; PULSE 87; RESP 14; O2SAT 100
[2019-05-15 23:44] VITALS: BP 153/93; PULSE 88; RESP 18; TEMP 36.8
[2019-05-15 23:46] VITALS: BP 121/81; PULSE 81; PULSE 87; RESP 22; O2SAT 100
--- NOTE | 2019-05-16 | DI.RAD_ITS ---
EXAM: CHEST XRAY CLINICAL HISTORY: SOB TECHNIQUE: 2D digital imaging was performed. COMPARISON: No exams were available for comparison FINDINGS: The cardiac and mediastinal contours have a normal appearance. The lungs are well inflated and clear . No infiltrate, effusion or pneumothorax is seen. No spine or rib fracture is identified. IMPRESSION: Negative chest x-ray.
[2019-05-16 00:01] VITALS: BP 117/83; PULSE 81; PULSE 82; RESP 13; O2SAT 98
[2019-05-16 00:04] LABS: Abs Immature Grans 0.01 k/cumm (0.0-0.09); Absolute Basophil Count 0.06 k/cumm (0.0-0.2); Absolute Eosinophil Count 0.43 k/cumm (0.0-0.7); Absolute Lymphocyte Count 3.18 k/cumm (1.2-3.4); Absolute Monocyte Count 0.77 k/cumm (0.11-0.7); Absolute Neutrophil Count 5.19 k/cumm (1.2-6.7); Basophils % 0.6; Eosinophils % 4.5; HCT 37.9 % (36.0-46.0); HGB 12.8 g/dL (12.0-15.5); Immature Grans % 0.1 %; Mean Corp. HGB Concentration 33.8 g/dL (32.0-36.0); Mean Corpuscular Hemoglobin 29.9 pg (27.0-33.0); Mean Corpuscular Volume 88.6 fL (80-95); Mean Platelet Volume 11.2 fL (8.0-11.0); Neutrophils % 53.8; Platelet Count 279 x1000/uL (130-400); RBC 4.28 m/cumm (4.00-5.20); RBC Distribution Width 13.3 % (11.7-14.6); White Blood Cell Count 9.64 k/cumm (4.4-10.8)
[2019-05-16 00:16] VITALS: PULSE 86; RESP 11
[2019-05-16 00:18] LABS: ALT 13 U/L (14-59); AST 12 U/L (15-37); Albumin 3.9 g/dL (3.4-5.0); Alkaline Phosphatase 67 U/L (46-116); Anion Gap 7.1 mmol/L (3-11); BUN 12 mg/dL (7-18); Bilirubin, Total 0.2 mg/dL (0.2-1.0); CO2 30.9 mmol/L (21.0-32.0); CREATININE 0.95 mg/dL (0.55-1.02); Chloride 105 mmol/L (98-107); Glucose 59 mg/dL (74-106); Sodium 143 mmol/L (136-145); Total Protein 7.6 g/dL (6.4-8.2)
[2019-05-16 00:25] LABS: NT-proBNP 144 pg/mL (<300); Troponin I < 0.05 ng/Ml (<0.06)
[2019-05-16] MEDS: Potassium Chloride 20 MEQ TABCR 40 MEQ PO (00:41)
--- NOTE | 2019-05-16 00:51 | DI.VRAD_ITS ---
PROCEDURE INFORMATION: Exam: XR Chest, 2 Views Exam date and time: 05/15/2019 12:33 AM Age: 23 years old Clinical indication: Shortness of breath; Patient HX: SOB, HX chf and nonischemic cardiomyopathy TECHNIQUE: Imaging protocol: XR of the chest Views: 2 views. COMPARISON: CR CHEST 2 VIEWS PA,LAT 08/15/2016 8:21 PM FINDINGS: Lungs: Unremarkable. No consolidation. Pleural space: Unremarkable. No pleural effusion. No pneumothorax. Heart/Mediastinum: Unremarkable. No cardiomegaly. Bones/joints: Unremarkable. IMPRESSION: No acute findings. Dictated and Authenticated by: Bright Gomez MD. Ordering:YUNI Easton MD
[2019-05-16 01:19] VITALS: BP 121/76; PULSE 86; RESP 16; TEMP 36.8; O2SAT 99
== END 2019-05-16 01:25 | disposition home or self-care (01) ==
PROVIDERS: Emergency Provider Emergency Medicine
DX: R06.00 Dyspnea, unspecified (principal); R00.2 Palpitations; E87.6 Hypokalemia
CPT/HCPCS: 80053; 81025; 93005; 99284; 71046; 83735; 83880; 84484; 85025; 93010

== ENCOUNTER 2019-09-14 22:44 | Emergency (ER) | payer MEDICAID, SELFPAY ==
[2019-09-14 22:49] VITALS: BP 109/79; PULSE 107; RESP 18; TEMP 37.2; O2SAT 97
--- NOTE | 2019-09-14 22:58 | ED.GENADUL_ITS ---
Discharge Plan Disposition Patient Disposition: HOME Condition: Good Discharge Details Chief Complaint: Abd Prob Clinical Impression: UTI (urinary tract infection) Primary Care Provider: None,None ED Provider: Chetna Reynoso Home Meds and New Rx's Prescriptions: New cephalexin [Keflex] 500 mg capsule 500 mg PO BID Qty: 6 RF: 0 Continued sertraline [Zoloft] 25 mg Tablet 25 mg PO DAILY RF: 0 Discharge Instructions Instructions: Cephalexin (By mouth), Urinary Tract Infection in Women (ED) Additional Instructions: Encourage water intake. You may use Tylenol and ibuprofen as needed for discomfort. Please take the Keflex as prescribed. Even if symptoms improve, please take entire course. Referral has been sent for local primary care provider. If you develop fever/chills, back pain, increased discomfort or other new/worsening symptoms please seek care urgently once again. Discharge Data Discharge Date/Time-TO BE ENTERED AT DEPARTURE: 09/15/19 01:05 Medical Decision Making Patient is a pleasant 24-year-old female presenting today with chief complaint of abdominal discomfort. She reports abdominal discomfort began this morning. She reports robust appetite throughout the course of the day today with no change in her discomfort after eating. Denies any nausea and vomiting. Had normal bowel movement this morning. Denies noting any blood in her stool. No fevers or chills. States that she is not had pain like this historically. Den ies any dysuria, increased frequency urgency. Denies any back pain. Denies any vaginal discharge. Patient reports that these cramps feel very similar to menstrual cramps but reports that her last menses was 2 weeks ago. She does report that she is sexually active with a stable partner. Denies any personal history of STI. States that she has been tested recently with no positive findings. Denies any vaginal discharge. On exam, patient appears nontoxic. She does appear slightly anxious. Lungs are clear:, Normal cardiac exam, no CVA tenderness. Abdomen is benign. No peritoneal findings. No guarding or rebound tenderness. However, the patient does endorse fairly diffuse discomfort maximal low central area. She does not have any severe pain or pain but more so on the right of the left suggestive of ovarian torsion. No known ovarian cysts. Patient is . Differential diagnosis include colitis, muscular pain, UTI. She does not have findings suggestive of appendicitis or diverticulitis. In an effort to reduce radiation, particularly as there is no peritoneal findings, will hold off on CT imaging. Will plan for basic labs for screening, will hydrate the patient and offer analgesia. Labs reviewed. No leukocytosis. CBC stable. CMP without abnormality. Lipase is within normal limits. Patient does have a nitrite positive urinalysis with moderate leukocyte esterase and moderate bacteria. This has been sent for culture. This is likely the source of the patient's low central Cramping. She denies having had a UTI historically. Plan to treat the patient with Keflex. She was given her first dose here this evening and was given dosing for tomorrow morning as pharmacies are currently closed. She does not have any CVA tenderness to suggest nephrolithiasis nor is the patient appear acutely ill. She is feeling improved. She does not have a local primary care, I have referred for a local PCP. Encouraged water intake. Patient was given return precautions. All of her questions and concerns were addressed and she is in agreement with this plan. HPI General Mode of arrival: ambulatory . Date/Time Provider Initiated Documentation: 09/14/19 22:58 . Limitations to Documentation: no limitations . Information obtained by: patient and RN notes reviewed . History of Present Illness 24 year old F presents to the emergency department with the chief complaint of abdominal cramping, described as moderate, with intensity rated at 7. Quality is described as other (cramping), and is localized to the abdomen. Patient reports no radiation. Patient started experiencing this hour(s) (started this morning) and it has been constant. No relieving factors improve symptom(s), No exacerbating factors reported . Patient notes no other symptoms.. Patient did receive the following treatments prior to arrival, none Related Data Home Medications Medication Instructions Recorded Confirmed sertraline [Zoloft] 25 mg PO DAILY 02/02/19 09/14/19 cephalexin [Keflex] 500 mg PO BID #6 cap 09/15/19 Previous Rx's Medication Instructions Recorded cephalexin [Keflex] 500 mg PO BID #6 cap 09/15/19 Allergies Allergy/AdvReac Type Severity Reaction Status Date / Time No Known Allergies Allergy Unverified 09/14/19 22:53 General Stated Complaint: Abd Prob GABRIEL: 3 Review of Systems Constitutional Constitutional: Reports as per HPI, Denies chills, Denies fatigue, Denies fever(s) and Denies headache(s) ENT Ears, Nose, Mouth, and Throat: Denies headache(s) Cardiovascular Cardiovascular: Reports as per HPI, Denies chest pain and Denies dyspnea Respiratory Respiratory: Reports as per HPI, Denies cough and Denies dyspnea Gastrointestinal Gastrointestinal: Reports as per HPI Genitourinary Genitourinary: Reports as per HPI (LMP 08/25/19), Denies abnormal menses, Denies abnormal vaginal bleeding, Denies metrorrhagia, Denies hematuria, Denies difficulty voiding, Denies genital pruritis, Denies genital lesions, Denies dysuria, Denies pelvic pain, Denies flank pain, Denies urinary urgency, Denies vaginal discharge (states typical white discharge, no change from her baseline), Denies vaginal odor and Denies vaginal pruritus Musculoskeletal Musculoskeletal: Reports as per HPI and Denies back pain Integumentary/Breasts Skin/Breast: Reports as per HPI and Denies rash Neurologic Neurologic: Reports as per HPI and Denies headache(s) Endocrine Endocrine: Denies fatigue [facility] Medical History Anxiety (Chronic) CHF (congestive heart failure) (Chronic) Nonischemic cardiomyopathy (Chronic) Surgical History History of section (Chronic) S/P hernia repair (Chronic) Social History Smoking/Tobacco Use Status: Current every day Tobacco Type: cigarettes Alcohol Intake: current Drug use: Daily Substance use type: marijuana Do you feel safe at home: Yes Do you feel safe in your relationship?: Yes History History 2 Para 1 Hx # Term Pregnancies Multiple births Hx # Pregnancies Ectopic pregnancies AB induced Hx Number of Living Children AB spontaneous Exam Const General: cooperative, healthy appearing, comfortable, no acute distress and well developed Nutritional Appearance: average body habitus and well nourished Orientation: alert and awake HENMT Head: normal to inspection Mouth: moist mucous membranes Resp Effort & Inspection: normal respiratory effort, able to speak in complete sentences and no respiratory distress Auscultation: clear to auscultation bilaterally, no rales, no rhonchi and no wheezes Cardio Rate: regular rate Rhythm: regular rhythm Heart Sounds: S1 normal and S2 normal Back/Spine/Pelvis Back: no CVA tenderness Skin General skin exam: no rashes or lesions noted Trauma: no lacerations or abrasions Neuro General: patient alert and patient awake Cognition: normal cognition Speech: speech normal Gait: normal gait Psych Appearance: grossly normal and well kempt Mental Status: mental status grossly normal Speech and Movement: speech and movement normal Course Vital Signs Vital signs: Vital Signs Temperature 37.2 C 09/14/19 22:49 Pulse 107 H 09/14/19 22:49 Respiratory Rate 18 09/14/19 22:49 Blood Pressure 109/79 09/14/19 22:49 Pulse Oximetry 97 09/14/19 22:49 Temperature 37.2 C 09/14/19 22:49 Temperature Source Skin 09/14/19 22:49 Pulse 107 H 09/14/19 22:49 Respiratory Rate 18 09/14/19 22:49 Respiratory Effort Non-Labored 09/14/19 22:54 Blood Pressure 109/79 09/14/19 22:49 Blood Pressure Position Sitting 09/14/19 22:49 Pulse Oximetry 97 09/14/19 22:49 Oxygen Delivery Method Room Air 09/14/19 22:49 Oxygen Flow Rate 0 09/14/19 22:49 Pain Level 7 09/14/19 22:49
[2019-09-14] MEDS: Lactated Ringers 1,000 ML 1000 ML IV (23:38)
[2019-09-14] MEDS: Acetaminophen 500 MG TAB 1000 MG PO (23:39)
[2019-09-14 23:42] LABS: Abs Immature Grans 0.01 k/cumm (0.0-0.09); Absolute Basophil Count 0.06 k/cumm (0.0-0.2); Absolute Eosinophil Count 0.33 k/cumm (0.0-0.7); Absolute Lymphocyte Count 2.68 k/cumm (1.2-3.4); Absolute Monocyte Count 0.67 k/cumm (0.11-0.7); Absolute Neutrophil Count 3.39 k/cumm (1.2-6.7); Basophils % 0.8; Eosinophils % 4.6; HCT 41.7 % (36.0-46.0); HGB 14.1 g/dL (12.0-15.5); Immature Grans % 0.1 %; Lymphocytes % 37.5; Mean Corp. HGB Concentration 33.8 g/dL (32.0-36.0); Mean Corpuscular Hemoglobin 30.1 pg (27.0-33.0); Mean Corpuscular Volume 88.9 fL (80-95); Mean Platelet Volume 11.4 fL (8.0-11.0); Monocytes % 9.4; Neutrophils % 47.6; Platelet Count 252 x1000/uL (130-400); RBC 4.69 m/cumm (4.00-5.20); RBC Distribution Width 13.2 % (11.7-14.6); White Blood Cell Count 7.14 k/cumm (4.4-10.8)
[2019-09-15 00:02] LABS: ALT 23 U/L (14-59); AST 16 U/L (15-37); Albumin 4.3 g/dL (3.4-5.0); Alkaline Phosphatase 60 U/L (46-116); Anion Gap 10.3 mmol/L (3-11); BUN 7 mg/dL (7-18); Bilirubin, Total 0.4 mg/dL (0.2-1.0); CO2 26.7 mmol/L (21.0-32.0); CREATININE 0.92 mg/dL (0.55-1.02); Calcium 9.3 mg/dL (8.5-10.1); Chloride 102 mmol/L (98-107); Glucose 101 mg/dL (74-106); Lipase 143 U/L (73-393); Potassium 3.5 mmol/L (3.5-5.1); Sodium 139 mmol/L (136-145); Total Protein 8.2 g/dL (6.4-8.2)
[2019-09-15 00:38] LABS: Bilirubin Negative (Negative); Blood Negative (Negative); Clarity Sl Cloudy (Clear); Glucose Negative (Negative); Ketones Negative (Negative); Leukocyte Esterase Moderate (Negative); Nitrite Positive (Negative); Urobilinogen 0.2 EU/dL (Up TO 0.2); pH 6.5 (5-8)
[2019-09-15 00:39] LABS: Bacteria Moderate HPF (Negative); Crystals Negative HPF (Negative); Epithelial Cells Rare HPF (Negative); Mucus Trace (Negative); RBC Negative HPF (0-2)
[2019-09-15 00:40] LABS: C & S Indicated? Yes; Casts Negative LPF (Negative)
[2019-09-15 00:55] VITALS: BP 103/55; PULSE 75; TEMP 36.7; O2SAT 98
[2019-09-15] MEDS: Cephalexin 500 MG CAP 1000 MG PO (01:06)
--- NOTE | 2019-09-19 11:47 | W.ED.FU ---
Reviewed urine culture growing E. coli greater than 100,000, resistant to first generation cephalosporins, sensitive to nitrofurantoin. I called the patient who notes she is feeling better. I recommended discontinuing Keflex and starting nitrofurantoin. I called her prescription for nitrofurantoin 100 mg twice daily x5 days to her [facility]. Patient was encouraged to return should have any worsening or new concerning symptoms.
== END 2019-09-15 01:05 | disposition home or self-care (01) ==
PROVIDERS: Emergency Provider Physician Assistant
DX: N39.0 Urinary tract infection, site not specified (principal)
CPT/HCPCS: 80053; 81025; 83690; 87077; 96360; 99284; 81003; 81015; 85025; 87086; 87186

== ENCOUNTER 2020-07-11 11:20 | Outpatient (REF) | payer MEDICAID, SELFPAY ==
[2020-07-12 14:55] LABS: Chlamydia Result Negative (Negative); GC Result Negative (Negative)
== END 2020-07-11 11:21 | disposition home or self-care (01) ==
LOC: NCHCN 11:20
PROVIDERS: PCP Physician Assistant; Visit Provider Physician Assistant
DX: R10.9 Unspecified abdominal pain (principal); Z11.3 Encounter for screening for infections with a predominantly sexual mode of transmission; R82.998 Other abnormal findings in urine
CPT/HCPCS: 87077; 87491; 87591; 87086; 87186; 87480; 87510; 87660

== ENCOUNTER 2020-07-11 15:05 | Outpatient (REF) | payer MEDICAID, SELFPAY ==
[2020-07-11 21:19] LABS: Abs Immature Grans 0.01 10^3/uL (0.0-0.06); Absolute Basophil Count 0.06 10^3/uL (0.0-0.2); Absolute Eosinophil Count 0.13 10^3/uL (0.0-0.7); Absolute Monocyte Count 0.58 10^3/uL (0.1-0.8); Absolute Neutrophil Count 4.56 10^3/uL (1.2-6.7); Basophils % 0.9; Eosinophils % 1.8; HCT 39.1 % (36.0-46.0); HGB 12.9 g/dL (11.2-15.7); Immature Grans % 0.1; Lymphocytes % 24.1; MCH 30.3 pg (27.0-33.0); MCV 91.8 fL (80-95); MPV 11.8 fL (8.0-11.0); Monocytes % 8.2; Neutrophils % 64.9; Nucleated RBC 0 %; Platelet Count 257 10^3/uL (130-400); RBC 4.26 10^6/uL (3.93-5.22); RDW 12.9 % (11.7-14.6); RDW-SD 43.6 fL; WBC 7.04 10^3/uL (4.4-10.8)
[2020-07-11 22:01] LABS: ALT 18 U/L (14-59); AST 7 U/L (15-37); Albumin 3.9 g/dL (3.4-5.0); Alkaline Phosphatase 51 U/L (46-116); Anion Gap 6.9 mmol/L (3-11); BUN 7 mg/dL (7-18); Bilirubin, Total 0.5 mg/dL (0.2-1.0); CO2 28.1 mmol/L (21.0-32.0); CREATININE 0.7 mg/dL (0.55-1.02); Calcium 8.9 mg/dL (8.5-10.1); Chloride 105 mmol/L (98-107); Glucose 82 mg/dL (74-106); Potassium 4.6 mmol/L (3.5-5.1); Sodium 140 mmol/L (136-145); Total Protein 7.2 g/dL (6.4-8.2)
[2020-07-11 22:13] LABS: HCG Quant, Pregnancy 27437 mIU/mL (1-3)
== END 2020-07-11 15:06 | disposition home or self-care (01) ==
LOC: LBN 15:05
PROVIDERS: PCP Physician Assistant; Visit Provider Physician Assistant
DX: R10.9 Unspecified abdominal pain (principal)
CPT/HCPCS: 80053; 84702; 85025

== ENCOUNTER 2020-07-12 06:28 | Outpatient (CLI) | payer MEDICAID, SELFPAY ==
--- NOTE | 2020-07-12 06:29 | DI.US_ITS ---
Exam(s) US ABD PELV TRANSVAG NON-OB EXAM: US ABD PELV TRANSVAG NON-OB CLINICAL HISTORY: UPPER abdominal pain,R10.9,RECENT ,? RETAINED PRODUCTS TECHNIQUE: Ultrasound of the abdomen, pelvic, both abdmonal and tranvaginal was performed using sta ndard protocol. COMPARISON: US PELVIS TRANSVAG from 05/13/[address] ABDOMEN PELVIS W from 02/02/2019 FINDINGS: LIVER: Normal. GALLBLADDER: No evidence of cholelithiasis. No evidence of wall thickening. No pericholecystic fluid identified. KIDNEYS: Kidneys are symmetric in size. No evidence of renal calculi. No evidence of hydronephrosis. No renal mass or cyst identified. BILIARY SYSTEM: Common bile duct measures < 7 mm. No intrahepatic biliary ductal dilation. MESSINA'S SIGN: Negative. PANCREAS: Normal where visualized. SPLEEN: Not enlarged. ABDOMINAL AORTA AND IVC: Visualized portions normal caliber. ASCITES: None seen. UTERUS: Position: Anteverted. Size: 8.0 long by 5.9 AP by 7.2 transverse cm Endometrium: There is an intrauterine gestational sac present. Estimated sonographic age is 5 weeks 6 days. heart rate is 103 beats per minute. Yolk sac was identified as was a pole. No evidence of a subchorionic hemorrhage is noted. Myometrium: Unremarkable. Cervix: Unremarkable. OVARIES: Right: 3.1 x 1.9 x 1.3 cm Cyst or mass: Small functional cysts are present. Left: 3.2 x 2.6 x 2.2 cm Cyst or mass: There is a 2.4 x 2 x 2 cm corpus luteal cyst. DOPPLER: Color: Symmetric and uniform flow to both ovaries. No hyperemia. Duplex: Normal ovarian arterial waveforms visualized. CUL-DE-SAC: Free fluid: There is a small amount of free fluid seen adjacent to the right ovary in the fundus of t he uterus. IMPRESSION: 1. Normal sonographic appearance of the upper abdomen. 2. Single living intrauterine gestation of estimated sonographic age 5 weeks 6 days. 3. 2.4 cm left ovarian corpus luteal cyst. 4. Small amount of free fluid in the pelvis. DATA REPOSITORY:
== END 2020-07-12 06:48 ==
PROVIDERS: PCP Physician Assistant; Visit Provider Physician Assistant
DX: R10.11 Right upper quadrant pain (principal); N83.12 Corpus luteum cyst of left ovary; N83.291 Other ovarian cyst, right side; Z33.1 Pregnant state, incidental; Z3A.01 Less than 8 weeks gestation of pregnancy
CPT/HCPCS: 76700; 76830; 76856

== ENCOUNTER 2020-07-12 07:51 | Emergency (ER) | payer MEDICAID, SELFPAY ==
[2020-07-12 08:03] VITALS: BP 137/97; PULSE 80; RESP 20; TEMP 36.5; O2SAT 98
--- NOTE | 2020-07-12 08:19 | ED.GENADUL_ITS ---
Discharge Plan Disposition Patient Disposition: HOME Condition: Good Discharge Details Clinical Impression: Miscarriage, threatened, early Primary Care Provider: Pietro Son ED Provider: Sierra Ruby Home Meds and New Rx's Prescriptions: New metoclopramide HCl [Reglan] 10 mg tablet 10 mg PO Q6H Qty: 14 RF: 0 No Action cephalexin 500 mg capsule 500 mg PO QID Qty: 28 RF: 0 sucralfate [Carafate] 1 gram tablet 1 g PO TID Qty: 15 RF: 0 omeprazole 20 mg capsule,delayed release(DR/EC) 20 mg PO DAILY Qty: 14 RF: 0 Discharge Instructions Additional Instructions: Take Reglan as needed for nausea and vomiting You may take doxylamine if your nausea is not controlled with the Reglan Take a magnesium supplement, this is [id number] Follow[facility] with [facility] should do decide that you would like to continue on with an elective Your baby has a low heart rate and discussed you at increased risk for having a miscarriage I do recommend close follow-up and vitamin Please return earlier should you have new or worsening complaints Medical Decision Making Patient feeling symptomatically improved, able to tolerate p.o. Diagnostic lab significant acute abnormality Patient does have a threatened miscarriage on ultrasound with a low heart rate, 103 She is referred to [facility] should she choose to continue with assisted Discussed with Dr. Ulloa given possible failure of medication assisted who recommends outpatient follow-up with [facility] and further evaluation Patient is hemodynamically stable, she is B+ for her blood type, she is not actively bleeding There is no evidence of additional acute pathology Patient given prescription for Reglan for home Return precautions discussed and patient expressed understanding Differential Diagnosis Differential Diagnosis: Threatened , retained products of conception, hyperemesis gravidaru Medical Records Medical records reviewed: Yes I reviewed the patient's medical records. Lab Data Lab results reviewed: Yes I reviewed the patient's lab results. HPI General Mode of arrival: ambulatory . Date/Time Provider Initiated Documentation: 07/12/20 07:59 . Limitations to Documentation: no limitations . Information obtained by: patient . HPI Narrative: This 25-year-old female 2 para 1 presents with report of elective being performed 6 weeks ago. Patient states she had 5 days of bleeding 2 days after taking medication assisted treatment. She states that she has been persistently nauseous since that time. She denies any additional vaginal bleeding and missed her June menses. She states that she subsequently went to urgent care yesterday and had ultrasounds and labs ordered. She was told that her hCG was elevated which concerned her because she medication assisted . She denies any chest pain or shortness of breath. She denies any dizziness or weakness. She has had several episodes of diarrhea. She denies any additional complaints at this time. She denies any pelvic pain. She denies any dysuria or frequency. Related Data Home Medications Medication Instructions Recorded Confirmed cephalexin 500 mg capsule 500 mg PO QID #28 cap 07/11/20 07/12/20 omeprazole 20 mg capsule,delayed 20 mg PO DAILY #14 cap 07/11/20 07/12/20 release sucralfate 1 gram tablet 1 g PO TID #15 tab 07/11/20 07/12/20 metoclopramide HCl [Reglan] 10 mg PO Q6H #14 tab 07/12/20 Previous Rx's Medication Instructions Recorded cephalexin 500 mg capsule 500 mg PO QID #28 cap 07/11/20 omeprazole 20 mg capsule,delayed 20 mg PO DAILY #14 cap 07/11/20 release sucralfate 1 gram tablet 1 g PO TID #15 tab 07/11/20 metoclopramide HCl [Reglan] 10 mg PO Q6H #14 tab 07/12/20 Allergies Allergy/AdvReac Type Severity Reaction Status Date / Time No Known Allergies Allergy Verified 07/12/20 08:08 General Stated Complaint: Nausea/Vomit/Diar GABRIEL: 3 Review of Systems Narrative: Review of systems obtained x7 aside from where indicated in [facility] Medical History (Updated 07/12/20 @ 09:31 by GABRIELLA Lugo) Anxiety CHF (congestive heart failure) Nonischemic cardiomyopathy Surgical History History of section S/P hernia repair Social History Smoking/Tobacco Use Status: Current every day Tobacco Type: e-cigarettes Smoking risk assessment performed?: Yes Alcohol Intake: current Drug use: Daily Substance use type: marijuana Do you feel safe at home: Yes Do you feel safe in your relationship?: Yes History History 2 Para 1 Hx # Term Pregnancies Multiple births Hx # Pregnancies Ectopic pregnancies AB induced Hx Number of Living Children AB spontaneous Exam Const General: cooperative and no acute distress HENMT Other: Moist mucous membranes Eyes Pupils: PERRL Chest Chest: normal inspection of the chest Resp Effort & Inspection: normal respiratory effort Auscultation: clear to auscultation bilaterally Cardio Rate: regular rate Rhythm: regular rhythm GI Inspection: normal to inspection Palpation: nontender Skin General skin exam: no rashes or lesions noted Neuro General: patient alert and patient oriented x3 Extrem Other: No peripheral edema Course Vital Signs Vital signs: Vital Signs Temperature 36.5 C 07/12/20 08:03 Pulse 80 07/12/20 08:03 Respiratory Rate 20 07/12/20 08:03 Blood Pressure 137/97 H 07/12/20 08:03 Pulse Oximetry 98 07/12/20 08:03 Temperature 36.5 C 07/12/20 08:03 Temperature Source Skin 07/12/20 08:03 Pulse 80 07/12/20 08:03 Respiratory Rate 20 07/12/20 08:03 Respiratory Effort Non-Labored 07/12/20 08:08 Blood Pressure 137/97 H 07/12/20 08:03 Blood Pressure Position Sitting 07/12/20 08:03 Pulse Oximetry 98 07/12/20 08:03 Oxygen Delivery Method Room Air 07/12/20 08:03 Oxygen Flow Rate 0 07/12/20 08:03
[2020-07-12] MEDS: Normal Saline 1,000 ML 1000 ML IV (08:32)
[2020-07-12] MEDS: Metoclopramide 10 MG/2 ML VIAL IVP (08:39)
[2020-07-12 08:44] LABS: Abs Immature Grans 0.01 10^3/uL (0.0-0.06); Absolute Basophil Count 0.04 10^3/uL (0.0-0.2); Absolute Eosinophil Count 0.09 10^3/uL (0.0-0.7); Absolute Lymphocyte Count 1.09 10^3/uL (1.2-3.4); Absolute Monocyte Count 0.53 10^3/uL (0.1-0.8); Basophils % 0.5; Eosinophils % 1.1; HCT 35.6 % (36.0-46.0); HGB 12.2 g/dL (11.2-15.7); Immature Grans % 0.1; Lymphocytes % 13.5; MCH 30.5 pg (27.0-33.0); MCHC 34.3 % (32.0-36.0); MPV 11.4 fL (8.0-11.0); Monocytes % 6.6; Neutrophils % 78.2; Nucleated RBC 0 %; Platelet Count 246 10^3/uL (130-400); RDW 12.8 % (11.7-14.6); RDW-SD 42.1 fL; WBC 8.06 10^3/uL (4.4-10.8)
[2020-07-12 08:59] LABS: ALT 14 U/L (14-59); AST 11 U/L (15-37); Albumin 3.6 g/dL (3.4-5.0); Alkaline Phosphatase 47 U/L (46-116); Anion Gap 7.9 mmol/L (3-11); BUN 7 mg/dL (7-18); Bilirubin, Total 0.5 mg/dL (0.2-1.0); CO2 27.1 mmol/L (21.0-32.0); CREATININE 0.7 mg/dL (0.55-1.02); Calcium 8.7 mg/dL (8.5-10.1); Chloride 105 mmol/L (98-107); Glucose 86 mg/dL (74-106); Magnesium 1.7 mg/dL (1.8-2.4); Sodium 140 mmol/L (136-145); Total Protein 6.9 g/dL (6.4-8.2)
[2020-07-12 09:14] LABS: Bilirubin Negative (Negative); Blood Negative (Negative); Clarity Clear (Clear); Glucose Negative (Negative); Ketones 15 mg/dL (Negative); Leukocyte Esterase Negative (Negative); Nitrite Negative (Negative); Specific Gravity 1.015 (1.005-1.025); Urobilinogen 0.2 EU/dL (Up TO 0.2); pH 7.5 (5-8)
[2020-07-12 09:41] VITALS: BP 100/62; PULSE 69; RESP 18; TEMP 36.6; O2SAT 96
== END 2020-07-12 09:44 | disposition home or self-care (01) ==
PROVIDERS: Emergency Provider Physician Assistant; PCP Physician Assistant
DX: O07.4 Failed attempted termination of pregnancy without complication (principal); R11.0 Nausea
CPT/HCPCS: 80053; 96361; 96374; 99284; 81003; 83735; 85025; 99283; J2765

== ENCOUNTER 2020-08-16 01:07 | Outpatient (CLI) | payer MEDICAID, SELFPAY ==
[2020-08-16 11:17] LABS: Kit/Specimen SENT
[2020-08-16 11:36] LABS: Abs Immature Grans 0.04 10^3/uL (0.0-0.06); Absolute Basophil Count 0.04 10^3/uL (0.0-0.2); Absolute Eosinophil Count 0.14 10^3/uL (0.0-0.7); Absolute Lymphocyte Count 2.03 10^3/uL (1.2-3.4); Absolute Neutrophil Count 7.12 10^3/uL (1.2-6.7); Basophils % 0.4; Eosinophils % 1.4; HCT 36.8 % (36.0-46.0); HGB 12.7 g/dL (11.2-15.7); Immature Grans % 0.4; Lymphocytes % 20.4; MCH 30.8 pg (27.0-33.0); MCHC 34.5 % (32.0-36.0); MCV 89.3 fL (80-95); MPV 11.4 fL (8.0-11.0); Neutrophils % 71.4; Nucleated RBC 0 %; Platelet Count 251 10^3/uL (130-400); RBC 4.12 10^6/uL (3.93-5.22); RDW 12.8 % (11.7-14.6); RDW-SD 42.2 fL; WBC 9.97 10^3/uL (4.4-10.8)
[2020-08-16 12:29] LABS: TSH (W/Ref FT4) 0.53 uIU/mL (0.36-3.74)
[2020-08-18 14:11] LABS: Syphilis Total Ab w/Reflex Nonreactive (Nonreactive)
[2020-08-19 10:25] LABS: HIV-1/2 Ag & Ab Screen Negative (Negative)
[2020-08-19 10:42] LABS: Hepatitis B Surface Ag Negative (Negative)
[2020-08-19 10:59] LABS: Hepatitis C Ab w Rflx HCV PCR Negative (Negative)
[2020-08-19 11:08] LABS: Varicella IgG Antibody Negative (See Note)
[2020-08-19 11:12] LABS: Rubella IgG Ab (UVM) Positive (See Note)
[2020-08-24 00:11] LABS: Result Summary NEGATIVE; Specimen WB Whole Blood
== END 2020-08-16 01:08 | disposition home or self-care (01) ==
LOC: LBO 01:07
PROVIDERS: PCP Physician Assistant; Visit Provider Advanced Practice Midwife
DX: O99.321 Drug use complicating pregnancy, first trimester (principal); F41.9 Anxiety disorder, unspecified; Z11.4 Encounter for screening for human immunodeficiency virus [HIV]; Z11.59 Encounter for screening for other viral diseases; Z01.84 Encounter for antibody response examination
CPT/HCPCS: 36415; 86787; 86803; 86850; 86900; 86901; 87340; 87389; 81220; 84443; 85025; 86762; 86780

== ENCOUNTER 2020-08-16 12:36 | Outpatient (REF) | payer MEDICAID, SELFPAY ==
--- NOTE | 2020-08-16 10:20 | PAPFT_PTH ---
PATIENT: Mary Porras LOC: [facility] U#:[id number] AGE/SX: 25/F ROOM: RE08/16/[address]: Vicky Manuel : 1995 BED: DIS: 08/16/2020 SPEC #: [id number] RECD: 08/16/20 12:50 STATUS: BILL REQ #: [id number] [place]: 08/16/20 10:[address]: Vicky Manuel DEPT: [facility] Cytology RECD BY: Sierra Chavarria ENTERED: 08/16/20 12:50 SP TYPE: PAPFT OTHR DR: Pietro Son Tissues: 1 - CX/ENDOCX FOR PAP SMEARS Procedures: PAP THIN PREP/UVM Screening Comments: [id number]
--- OUTSIDE RECORDS SUMMARY | 2020-08-16 12:40 | XMS_ITS | Encounter Summary ---
:1995 Author Reason for Visit procedure termination of , mandrel cleaner- acc epted; consent for procedure has been signed Assessment and Plan 1. Routine care She was here with the intent o f having a termination of , but she decided that she could not go through wi th it due to the discomfort of the last termination. She would rather keep the p regnancy and put the baby up for adoption. 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 With her last in 2013, there was significant risk of cardiac decompensation. She reports that most recently the community health director told her that she no longer had a cardiomyopathy. We certainly need to get the records fro cardiology at [facility] [place]. In addition, it would make sense for her to be seen by both ca rdiology and maternal- medicine. Of note, at the of the child, she cur rently does not want to see the baby. Also of note, she is aware that the misoprostol may actually induce a miscarriage. She understands all of this and still wishes to maintain the . She is due to return in about 2 weeks. She is very ear ly in the now, so I did not yet order the labs. When I see her in 2 week s, we can order the labs and set up the referrals at [facility]. I spent 30 minut es in preparation and discussion with the patient. 2. Uterine scar from previous chen rgery affecting Discussion Note: None recorded.Patient educational handouts: No information available. Plan of Care Reminders Provider Appointments None ? ? recorded. Lab None ? ? recorded. Referral None ? ? recorded. Procedures None ? ? recorded. Surgeries None ? ? recorded. Imaging None ? ? recorded. Medications No Medications Reported Medications Administered None recorded. Vitals None recorded. Results Lab Results None recorded. Allergies Code Code System Name Reaction Severity Onset NKDA ? ? ? Problems Name Status Onset Date Source ? Active 05/30/2020 ? Uterine Scar from Previous Surgery Affecting Active ? Routine Care Active 05/31/2020 ? 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 Procedures Date Name Performed by ? 10/08/2013 Section Information not avai lable Vaccine List None recorded. Social History None recorded. Functional Status Unknown. Past Encounters 05/31/2020 Routine Care; Uterine Scar fro m Previous Surgery Affecting Ventura Miles MD: [address] [place] [phone], Ph. History of Present Illness Note: <p>She is currently with an EGA of 5.2 weeks. She would like to have a termination of . She has thought about her options and was sure that this is what she would like to do.</p> Review of Systems None recorded. Physical Exam None recorded.
--- OUTSIDE RECORDS SUMMARY | 2020-08-16 12:40 | XMS_ITS ---
:1995 Author Care Team Providers Name Role Phone Jd Primary Care Provider Unavailable Allergies Code Code System Name Reaction Severity Status Onset NKDA ? Medications Name Status Start Date Stop Date ? ? doxycycline hyclate 100 mg capsule Completed ? 06/12/2020 Take 2 capsules by oral route as directed. TAKE 2 TABLETS 2 HOURS AFTER PROCEDURE doxycycline hyclate 100 mg tablet Completed 05/17/2015 06/06/2015 2 (two) Tablet: Take 2 hours after procedure misoprostol 200 mcg tablet Completed ? 05/31 2 (two) Tablet: 2 Hours before Procedure TAKE 2 TABLETS 2 HOURS BEFORE PROCEDURE Carrie-BE 0.35 mg tablet Completed 11/30/2013 6 1 (one) Tablet: daily Valium 5 mg tablet Completed ? 06/12/2020 Take 1 tab 2 hour prior; 1 tab upon arrival; 1 tab bedtime if n eeded Problems Name Status Onset Date Source ? Active 05/30/2020 ? Uterine Scar from Previous Surgery Affecting Active ? Routine Care Active 05/31/2020 ? 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 Procedures Date Name Performed by ? 10/08/2013 Section Information not avai lable Results Lab Results Date Name Specimen Result Interpretation Description Value Range Status Address ? 05/30/2020 Type + BLD ? Abo B ? Final [facility] Screen, Hospital Lab Blood (Internal) : [address] ? ? BLD ? Rh positive ? Final [facility] L ab (Internal) : [address] ? ? BLD ? Ab negative negative Final [facility] L ab (Internal) : [address] 05/30/2020 beta-HCG, S High HCG, 93.5 2.0-6.0 Final No rth Country Quantitati Quant [IU]/mL [IU]/mL Hosp ital Lab ve, Serum (Admitting Interviewer al): or Plasma [address], [address] t Past Encounters 05/31/2020 Routine Care; Uterine Scar fro m Previous Surgery Affecting Ventura Miles MD: [address] [place] [phone], Ph. Social History None recorded. Vaccine List None recorded. Plan of Care Reminders Provider Appointments None ? ? recorded. Lab None ? ? recorded. Referral None ? ? recorded. Procedures None ? ? recorded. Surgeries None ? ? recorded. Imaging None ? ? recorded. Vitals 05/23/2015 Blood Pressure 106/60 mm[Hg] 10/23/2013 Weight Blood Pressure 98.7 kg 96/58 mm[Hg] 10/16/2013 Blood Pressure 102/72 mm[Hg] 04/21/2013 Height Weight Blood Pressure 173.36 cm 79.47 kg 118/66 mm[Hg]
[2020-08-16 14:07] LABS: *AMPHETAMINES SCREEN URINE Negative (Negative); *BARBITURATES SCREEN URINE Negative (Negative); *BENZODIAZEPINES SCREEN URINE Negative (Negative); Cannabinoids THC Positive (Negative); Cocaine Screen,Urine Negative (Negative); METHADONE URINE SCREEN Negative (Negative); OPIATES URINE SCREEN Negative (Negative)
[2020-08-16 14:10] LABS: Tricyclic Antidepressants Negative (Negative)
[2020-08-19 14:57] LABS: Chlamydia Result Negative (Negative); GC Result Negative (Negative)
== END 2020-08-16 12:37 | disposition home or self-care (01) ==
LOC: LBN 12:36
PROVIDERS: PCP Physician Assistant; Visit Provider Advanced Practice Midwife
DX: Z34.91 Encounter for supervision of normal pregnancy, unspecified, first trimester (principal); Z11.3 Encounter for screening for infections with a predominantly sexual mode of transmission; Z12.4 Encounter for screening for malignant neoplasm of cervix; Z3A.10 10 weeks gestation of pregnancy
CPT/HCPCS: 80307; 87491; 87591; 88142; 87086; 87480; 87510; 87660

== ENCOUNTER 2021-01-10 14:41 | Emergency (ER) | payer MEDICAID, SELFPAY ==
--- NOTE | 2021-01-10 14:45 | RT.EKG_ITS ---
APPROVED REPORT Exam: Resting ECG Reason for Exam: Hx CHF, SOB Patient Location: E HR:87 bpm ECG Measurements Heart Rate 87 AXIS OR 138 P 6 QRSd 91 QRS 0 QT 361 T [id number] QTc 436 Conclusion Sinus rhythm...normal P axis, V-rate 60- 99 Indeterminate axis...QRS axis indeterminate Nonspecific T abnormalities, inferior leads...T <-0.10mV, II III aVF
[2021-01-10 14:47] VITALS: BP 124/69; PULSE 94; TEMP 37.4; O2SAT 100
[2021-01-10 15:13] LABS: Bilirubin Negative (Negative); Blood Negative (Negative); Clarity Clear (Clear); Glucose Negative (Negative); Ketones Negative (Negative); Leukocyte Esterase Negative (Negative); Nitrite Negative (Negative); Specific Gravity 1.015 (1.005-1.025); Urobilinogen 0.2 EU/dL (Up TO 0.2)
--- NOTE | 2021-01-10 15:16 | ED.GENADUL_ITS ---
Discharge Plan Disposition Patient Disposition: HOME Condition: Stable Discharge Details Clinical Impression: Leg swelling in in third trimester, CHF (congestive heart failure) Primary Care Provider: Pietro Son ED Provider: Idalmis Olmedo Home Meds and New Rx's Prescriptions: No Action One A Day Women's DHA 28 mg iron- 800 mcg combo pack PO DAILY RF: 0 Colace Clear 50 mg capsule 50 mg PO BID Qty: 60 RF: 5 ferrous sulfate [Iron (ferrous sulfate)] 325 mg (65 mg iron) Tablet 325 mg PO DAILY RF: 0 magnesium 250 mg Tablet 250 mg PO DAILY RF: 0 Discharge Instructions Instructions: Leg Edema (ED), at 31 to 34 Weeks (ED) Additional Instructions: I spoke with [facility] GRAPHOTYPE OPERATOR who encourage you to keep your appt as previously scheduled on WednesdayJan 14 at 0830 am. You also have a Echo scheduled Wednesday at 1000 am. Please keep these appointments. At this time there is no evidence for an emergent condition requiring intervention. Rest, keep legs elevated. Continue with your previously scheduled medications. Return to ED and consider going to [facility] for chest pain, dizziness lightheadedness, Vaginal fluid leaking, not feeling baby move, worsening pain or concerns. Stand Alone Forms: Work Release Referrals: Rustam Hoffman MD [Other] (Keep January 14 Appt at 0800) Pietro Son [Primary Care Provider] - Discharge Data Discharge Date/Time-TO BE ENTERED AT DEPARTURE: 01/10/21 17:25 Medical Decision Making 25 year old female presents to the ED with chief C/O bilateral lower extremity swelling, SOB, STROUD and Fatigue which worsened over last 24 hours. Hx of CHF, 32 weeks , sees ELECTRICAL AND INSTRUMENT TECHNICIAN at [facility]. Denies Chest pain. VSS, takes metoprolol, and magnesium 250 mg PO. Shx includes .2+ non pitting edema noted bilaterally, Denies abd cramping reports low back pain which started 1 hour ago. She reports intermittant back pain on and off x 1 month. 1554: Spoke with Dr. Vaca ELECTRICAL AND INSTRUMENT TECHNICIAN office manager receptionist, pt was seen by [facility] in August and referred to [facility] for high risk . She does not recommend monitoring unless back pain is cyclical. I will re-assess and Consult with [facility] GRAPHOTYPE OPERATOR. At this time, no proteinuria, CBC largely unremarkable, CMP and Pro-BNP pending. FHT 141. BNP WNL. Patient reports intermittant lower back pain x 1 month. Denies leaking fluid, or vaginal bleeding. Pt reports good movement. 1646: Spoke with Dr. Calle with [facility] regarding patient she has a upcoming appt on WednesdayJan 14 at 0800 am along with maternal cardiac echocardiogram at 1000 am at [facility]. Due to no signs of eclampsia, no chest pain, BP WNL, I do agree that patient is safe to be discharged home with strict return instructions and instructions to keep her upcoming appt. Patient alert, oriented, conversive and appears much more comfortable. HPI General Mode of arrival: ambulatory . Date/Time Provider Initiated Documentation: 01/10/21 14:44 . Limitations to Documentation: no limitations . Information obtained by: patient . HPI Narrative: 25 year old female presents to the ED with chief C/O bilateral lower extremity swelling, SOB, STROUD and Fatigue which worsened over last 24 hours. Hx of CHF, 32 weeks , sees ELECTRICAL AND INSTRUMENT TECHNICIAN at [facility]. Denies Chest pain. VSS, takes metoprolol, and magnesium 250 mg PO. Shx includes .2+ non pitting edema noted bilaterally, Denies abd cramping reports low back pain which started 1 hour ago. She reports intermittant back pain on and off x 1 month. Related Data Home Medications Medication Instructions Recorded Confirmed docusate sodium 50 mg capsule 50 mg PO BID #60 cap 08/16/20 01/10/21 vits 75-iron 28 mg-folic pkg PO DAILY ea 08/16/20 08/16/20 acid 800 mcg-omega-3 oral combo pack ferrous sulfate [Iron (ferrous 325 mg PO DAILY 01/10/21 01/10/21 sulfate)] magnesium 250 mg PO DAILY 01/10/21 01/10/21 Previous Rx's Medication Instructions Recorded docusate sodium 50 mg capsule 50 mg PO BID #60 cap 08/16/20 Allergies Allergy/AdvReac Type Severity Reaction Status Date / Time No Known Allergies Allergy Verified 08/16/20 09:24 General Stated Complaint: RespSymp GABRIEL: 3 Review of Systems All systems reviewed & are unremarkable except as noted in HPI and below Constitutional Constitutional: Reports as per HPI, Denies excessive sweating, Reports fatigue, Denies fever(s) and Reports headache(s) ENT Ears, Nose, Mouth, and Throat: Reports headache(s) Cardiovascular Cardiovascular: Reports dyspnea and Reports dyspnea on exertion Respiratory Respiratory: Denies cough, Denies hemoptysis, Reports dyspnea and Reports dyspnea on exertion Gastrointestinal Gastrointestinal: Denies abdominal pain Genitourinary Genitourinary: Denies difficulty voiding and Denies vaginal pruritus Comments: Denies leaking fluid, Vaginal bleeding, Neurologic Neurologic: Reports headache(s) Endocrine Endocrine: Denies excessive sweating and Reports fatigue [facility] Medical History (Updated 01/10/21 @ 17:01 by Idalmis Olmedo) Anxiety CHF (congestive heart failure) History of posttraumatic stress disorder (PTSD) therapy in the past, sertraline in the past HRP (high risk ) History of cardiomyopathy and congestive heart failure. Has been seen at [facility]. Careful evaluation of cardiac function. High likelihood for delivery at a tertiary facility Nonischemic cardiomyopathy Surgical History History of section S/P hernia repair Family History (Updated 08/16/20 @ 09:54 by Vicky Manuel CNM) Maternal Grandfather Congestive heart disease Mother Bipolar 1 disorder Degenerative disc disease Paternal Cousin Seizures Brother Schizophrenia Father Schizophrenia Paternal Grandmother Breast cancer Social History (Updated 08/16/20 @ 12:34 by Vicky Manuel CNM) Smoking/Tobacco Use Status: Former Tobacco Use Quit Date: 06/05/20 Smoking risk assessment performed?: Yes Alcohol Intake: never Drug use: Occasionally Substance use type: marijuana Pets and animals: Yes Pets and animals: cat(s) Sexually active: Yes Do you feel safe at home: Yes Do you feel safe in your relationship?: Yes History History 4 Para 1 Hx # Term Pregnancies Multiple births Hx # Pregnancies Ectopic pregnancies 1 AB induced 2 Hx Number of Living Children AB spontaneous Past Pregnancies Del. Date GA/Weeks # Outcome Route Wgt Sex Labor Lgth Anesthes ia Location Prov Complic 10/08/13 37 No Successful 3005.049 g Male [facility] Delivery Date: 10/08/13 IOL due to cardiomyopathy, FHR decellerations, emergency under epidural analgesia. Vicky Manuel Exam Const General: cooperative, comfortable, well developed and well groomed Nutritional Appearance: average body habitus Orientation: alert, awake and oriented x3 Resp Effort & Inspection: able to speak in complete sentences, no audible wheezes, no cough, labored (With exertion), no respiratory distress, no tripod positioning and no use of accessory muscles Auscultation: diminished lung sounds, no rales, no rhonchi and no wheezes Cardio Palpation: normal PMI Rhythm: regular rhythm Heart Sounds: S1 normal and S2 normal GI Inspection: other (Consistent with 32 weeks gravidum) Palpation: nontender Skin General skin exam: pallor Lesions: no lesions Rashes: no rashes Extrem Right lower extremity: edema Details: non-pitting and 2+ Left lower extremity: edema Details: non-pitting and 2+ Course Vital Signs Vital signs: Vital Signs Temperature 37.4 C 01/10/21 14:47 Pulse 94 H 01/10/21 14:47 Blood Pressure 124/69 01/10/21 14:47 Pulse Oximetry 100 01/10/21 14:47 Temperature 37.4 C 01/10/21 14:47 Temperature Source Temporal Artery Scan 01/10/21 14:47 Pulse 94 H 01/10/21 14:47 Respiratory Effort Non-Labored 01/10/21 14:56 Blood Pressure 124/69 01/10/21 14:47 Blood Pressure Position Sitting 01/10/21 14:47 Pulse Oximetry 100 01/10/21 14:47 Oxygen Delivery Method Room Air 01/10/21 14:47 Oxygen Flow Rate 0 01/10/21 14:47 Pain Level 2 01/10/21 14:47 Lab/Test Results Lab/Test Results: Laboratory Tests Range/Units 01/10/21 15:08 Urine Color (Yellow) Yellow Urine Clarity (Clear) Clear Urine pH (5-8) 7.0 Ur Specific [place] (1.005-1.025) 1.015 Urine Protein (Negative) mg/dL Negative Urine Ketones (Negative) mg/dL Negative Urine Blood (Negative) Negative Urine Nitrite (Negative) Negative Urine Bilirubin (Negative) Negative Urine Urobilinogen (Up TO 0.2) EU/dL 0.2 Ur Leukocyte Esterase (Negative) Negative Urine Glucose (Negative) mg/dL Negative
[2021-01-10 15:34] LABS: Abs Immature Grans 0.25 10^3/uL (0.0-0.06); Absolute Basophil Count 0.04 10^3/uL (0.0-0.2); Absolute Eosinophil Count 0.25 10^3/uL (0.0-0.7); Absolute Lymphocyte Count 1.89 10^3/uL (1.2-3.4); Absolute Monocyte Count 0.78 10^3/uL (0.1-0.8); Absolute Neutrophil Count 7.16 10^3/uL (1.2-6.7); Basophils % 0.4; Eosinophils % 2.4; HCT 30.6 % (36.0-46.0); Immature Grans % 2.4; Lymphocytes % 18.2; MCH 28.7 pg (27.0-33.0); MCHC 32.7 % (32.0-36.0); MCV 87.9 fL (80-95); Monocytes % 7.5; Neutrophils % 69.1; Nucleated RBC 0 %; Platelet Count 248 10^3/uL (130-400); RBC 3.48 10^6/uL (3.93-5.22); RDW 13.5 % (11.7-14.6); WBC 10.37 10^3/uL (4.4-10.8)
[2021-01-10 15:52] LABS: ALT 13 U/L (14-59); AST 19 U/L (15-37); Albumin 2.5 g/dL (3.4-5.0); Alkaline Phosphatase 92 U/L (46-116); Anion Gap 9.6 mmol/L (3-11); BUN 6 mg/dL (7-18); Bilirubin, Total 0.1 mg/dL (0.2-1.0); CO2 24.4 mmol/L (21.0-32.0); CREATININE 0.6 mg/dL (0.55-1.02); Calcium 8.7 mg/dL (8.5-10.1); Chloride 105 mmol/L (98-107); Glucose 83 mg/dL (74-106); Magnesium 1.8 mg/dL (1.8-2.4); NT-proBNP 62 pg/mL (<300); Potassium 3.8 mmol/L (3.5-5.1); Sodium 139 mmol/L (136-145); Total Protein 6.7 g/dL (6.4-8.2)
[2021-01-10 17:18] VITALS: BP 106/75; PULSE 90; RESP 18; TEMP 36.6; O2SAT 100
[2021-01-10 17:20] VITALS: RESP 18
[2021-01-10 17:24] VITALS: BP 106/75; PULSE 90; RESP 18; TEMP 36.6; O2SAT 100
== END 2021-01-10 17:25 | disposition home or self-care (01) ==
PROVIDERS: Emergency Provider Registered Nurse Emergency; PCP Physician Assistant
DX: O99.413 Diseases of the circulatory system complicating pregnancy, third trimester (principal); O26.893 Other specified pregnancy related conditions, third trimester; Z3A.32 32 weeks gestation of pregnancy; I50.9 Heart failure, unspecified; R60.0 Localized edema; M54.50 Low back pain, unspecified
CPT/HCPCS: 36415; 80053; 93005; 99283; 81003; 83735; 83880; 85025; 93010; 99284

== ENCOUNTER 2021-03-25 14:59 | Outpatient (REF) | payer MEDICAID, SELFPAY ==
[2021-03-25 19:22] LABS: Anion Gap 9.2 mmol/L (3-11); BUN 11 mg/dL (7-18); CO2 27.8 mmol/L (21.0-32.0); CREATININE 0.8 mg/dL (0.55-1.02); Calcium 9.1 mg/dL (8.5-10.1); Chloride 101 mmol/L (98-107); Glucose 68 mg/dL (74-106); Potassium 4.2 mmol/L (3.5-5.1); Sodium 138 mmol/L (136-145)
== END 2021-03-25 15:00 | disposition home or self-care (01) ==
LOC: NCHCN 14:59
PROVIDERS: PCP Physician Assistant; Visit Provider Physician Assistant
DX: I42.8 Other cardiomyopathies (principal)
CPT/HCPCS: 80048

== ENCOUNTER 2021-04-23 05:47 | Emergency (ER) | payer MEDICAID, SELFPAY ==
[2021-04-23 05:55] VITALS: BP 108/90; PULSE 92; RESP 16; TEMP 36.4; O2SAT 100
--- NOTE | 2021-04-23 06:07 | ED.GENADUL_ITS ---
Discharge Plan Disposition Patient Disposition: HOME Condition: Stable Discharge Details Clinical Impression: COVID, Nausea & vomiting Primary Care Provider: Pietro Son ED Provider: Reuben Rose Home Meds and New Rx's Prescriptions: New ondansetron 4 mg tablet,disintegrating 4 mg PO Q8H PRN (Reason: nausea and vomiting) Qty: 30 RF: 0 Continued One A Day Women's DHA 28 mg iron- 800 mcg combo pack PO DAILY RF: 0 Colace Clear 50 mg capsule 50 mg PO BID Qty: 60 RF: 5 ferrous sulfate [Iron (ferrous sulfate)] 325 mg (65 mg iron) Tablet 325 mg PO DAILY RF: 0 magnesium 250 mg Tablet 250 mg PO DAILY RF: 0 enalapril maleate 5 mg tablet 5 mg PO DAILY RF: 0 sertraline 100 mg tablet 150 mg PO DAILY RF: 0 spironolactone 25 mg tablet 25 mg PO DAILY RF: 0 losartan 25 mg tablet 25 mg PO DAILY RF: 0 metoprolol succinate 25 mg tablet extended release 24 hr 25 mg PO DAILY RF: 0 Discharge Instructions Instructions: COVID-19 (Coronavirus Disease 2019) (ED) Additional Instructions: drink fluids to stay hydrated if you feel more ill, have severe worsening pain or difficulty breathing return to the emergency department if symptoms not improving within a week follow up with your primary care provider Stand Alone Forms: POSITIVE COVID-19/TO BE TESTED Medical Decision Making 25 yo female with hx of heart failure since she was a child per patient, who states since yesterday has had body aches and general malaise and took an at home covid test that was positive comes in with continued aches and also had a bloody nose and nausea on her way to work. Denies fevers, chills. HAs a frontal headache that has slowly been worsening since yesterday, denies worse of her life and no neck stiffness/pain. She is vaccinated though has not had covid booster. She arrives stable in no distress with stable vitals, 100% on room air. Clear lungs, soft nontender abdomen, no epistaxis on exam and no evidence of recent bleeding. She has no meninigismus, eomi, perrl. Symptoms seem consistent with covid, will evaluate for thrombocytopenia and treat symptoms with toradol and zofran and fluids and reassess. 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 Will d/c and discussed quarantine guidelines, return precautions given Differential Diagnosis Differential Diagnosis: covid, flu, thrombocytopenia Medical Records Medical records reviewed: Yes I reviewed the patient's medical records. Lab Data Lab results reviewed: Yes I reviewed the patient's lab results. HPI General Mode of arrival: ambulatory . Date/Time Provider Initiated Documentation: 04/23/21 05:49 . Limitations to Documentation: no limitations . Information obtained by: patient . History of Present Illness 25 year old F presents to the emergency department with the chief complaint of body aches, described as moderate, Patient started experiencing this day(s) (1) and it has been constant. No relieving factors improve symptom(s), No exacerbating factors reported . Patient notes weakness. Patient did receive the following treatments prior to arrival, none Related Data Home Medications Medication Instructions Recorded Confirmed docusate sodium 50 mg capsule 50 mg PO BID #60 cap 08/16/20 01/10/21 vits 75-iron 28 mg-folic pkg PO DAILY ea 08/16/20 08/16/20 acid 800 mcg-omega-3 oral combo pack ferrous sulfate [Iron (ferrous 325 mg PO DAILY 01/10/21 04/23/21 sulfate)] magnesium 250 mg PO DAILY 01/10/21 04/23/21 enalapril maleate 5 mg PO DAILY 04/23/21 04/23/21 losartan 25 mg PO DAILY 04/23/21 04/23/21 metoprolol succinate 25 mg PO DAILY 04/23/21 04/23/21 ondansetron 4 mg PO Q8H PRN #30 tab 04/23/21 sertraline 150 mg PO DAILY 04/23/21 04/23/21 spironolactone 25 mg PO DAILY 04/23/21 04/23/21 Previous Rx's Medication Instructions Recorded docusate sodium 50 mg capsule 50 mg PO BID #60 cap 08/16/20 ondansetron 4 mg PO Q8H PRN #30 tab 04/23/21 Allergies Allergy/AdvReac Type Severity Reaction Status Date / Time No Known Allergies Allergy Verified 04/23/21 05:59 General Stated Complaint: Headache GABRIEL: 3 Review of Systems All systems reviewed & are unremarkable except as noted in HPI and below Constitutional Constitutional: Denies chills and Denies fever(s) Cardiovascular Cardiovascular: Denies chest pain and Denies dyspnea Respiratory Respiratory: Denies cough and Denies dyspnea Gastrointestinal Gastrointestinal: Denies abdominal pain, Denies nausea and Denies vomiting Musculoskeletal Musculoskeletal: Denies joint swelling PFSH All Active Problems (Updated 04/23/21 @ 06:13 by Reuben Rose MD) Leg swelling in in third trimester (Acute) CHF (congestive heart failure) (Chronic) COVID (Acute) Nausea & vomiting (Acute) HRP (high risk ) (Acute) History of cardiomyopathy and congestive heart failure. Has been seen at [facility]. Careful evaluation of cardiac function. High likelihood for delivery at a tertiary facility History of posttraumatic stress disorder (PTSD) (Acute) therapy in the past, sertraline in the past (Acute) Miscarriage, threatened, early (Acute) CHF (congestive heart failure) (Chronic) S/P hernia repair (Chronic) History of section (Chronic) Anxiety (Chronic) Nonischemic cardiomyopathy (Chronic) Buttock pain (Acute) Sciatica (Acute) Family History (Updated 08/16/20 @ 09:54 by Vicky Manuel CNM) Maternal Grandfather Congestive heart disease Mother Bipolar 1 disorder Degenerative disc disease Paternal Cousin Seizures Brother Schizophrenia Father Schizophrenia Paternal Grandmother Breast cancer Social History (Updated 08/16/20 @ 12:34 by Vicky Manuel CNM) Smoking/Tobacco Use Status: Former Tobacco Use Quit Date: 06/05/20 Smoking risk assessment performed?: Yes Alcohol Intake: never Drug use: Occasionally Substance use type: marijuana Pets and animals: Yes Pets and animals: cat(s) Sexually active: Yes Do you feel safe at home: Yes Do you feel safe in your relationship?: Yes History History 4 Para 1 Hx # Term Pregnancies Multiple births Hx # Pregnancies Ectopic pregnancies 1 AB induced 2 Hx Number of Living Children AB spontaneous Past Pregnancies Del. Date GA/Weeks # Outcome Route Wgt Sex Labor Lgth Anesthes ia Location Prov Complic 10/08/13 37 No Successful 3005.049 g Male [facility] Delivery Date: 10/08/13 IOL due to cardiomyopathy, FHR decellerations, emergency under epidural analgesia. Vicky Manuel Exam Const General: no acute distress Orientation: alert HENMT Head: normal to inspection Ears: external ears normal General nose exam: external nose normal Mouth: moist mucous membranes Eyes General: appearance normal, both eyes and all related structures Neck Neck: normal visual inspection Resp Effort & Inspection: normal respiratory effort and able to speak in complete sentences Cardio Rate: regular rate Skin General skin exam: no rashes or lesions noted Neuro General: patient alert and patient oriented x3 Extrem General: normal to inspection Psych Mental Status: mental status grossly normal Course Vital Signs Vital signs: Vital Signs Temperature 36.4 C L 04/23/21 05:55 Pulse 92 H 04/23/21 05:55 Respiratory Rate 16 04/23/21 05:55 Blood Pressure 108/90 04/23/21 05:55 Pulse Oximetry 100 04/23/21 05:55 Temperature 36.4 C L 04/23/21 05:55 Pulse 92 H 04/23/21 05:55 Respiratory Rate 16 04/23/21 05:55 Respiratory Effort Non-Labored 04/23/21 06:02 Blood Pressure 108/90 04/23/21 05:55 Blood Pressure Position Sitting 04/23/21 05:55 Pulse Oximetry 100 04/23/21 05:55 Pain Level 6 04/23/21 06:02
[2021-04-23] MEDS: Normal Saline 1,000 ML 1000 ML IV (06:10)
[2021-04-23] MEDS: Ondansetron 4 MG/2 ML VIAL IVP (06:11)
[2021-04-23] MEDS: Ketorolac 15 MG/ML VIAL IVP (06:13)
[2021-04-23 06:15] LABS: Abs Immature Grans 0.01 10^3/uL (0.0-0.06); Absolute Basophil Count 0.06 10^3/uL (0.0-0.2); Absolute Eosinophil Count 0.28 10^3/uL (0.0-0.7); Absolute Monocyte Count 0.52 10^3/uL (0.1-0.8); Absolute Neutrophil Count 3.94 10^3/uL (1.2-6.7); Eosinophils % 4.4; HCT 42.6 % (36.0-46.0); HGB 13.5 g/dL (11.2-15.7); Immature Grans % 0.2; Lymphocytes % 23.8; MCH 28.4 pg (27.0-33.0); MCHC 31.7 % (32.0-36.0); MCV 89.7 fL (80-95); MPV 10.4 fL (8.0-11.0); Monocytes % 8.2; Neutrophils % 62.4; Nucleated RBC 0 %; Platelet Count 300 10^3/uL (130-400); RBC 4.75 10^6/uL (3.93-5.22); RDW 14.5 % (11.7-14.6); RDW-SD 47.8 fL; WBC 6.31 10^3/uL (4.4-10.8)
[2021-04-23 06:24] LABS: Anion Gap 5.5 mmol/L (3-11); BUN 10 mg/dL (7-18); CO2 27.5 mmol/L (21.0-32.0); CREATININE 0.8 mg/dL (0.55-1.02); Chloride 105 mmol/L (98-107); Glucose 93 mg/dL (74-106); Potassium 4.7 mmol/L (3.5-5.1); Sodium 138 mmol/L (136-145)
[2021-04-23 06:43] VITALS: BP 100/48; PULSE 76; RESP 16; O2SAT 100
[2021-04-24 13:06] LABS: COVID-19 RT-PCR UVMMC Result Negative (Negative)
--- NOTE | 2021-04-25 12:19 | NUR.NOTE ---
negativge covid result left on her message machine.Nursing Note:
== END 2021-04-23 06:55 | disposition home or self-care (01) ==
PROVIDERS: Emergency Provider Emergency Medicine; PCP Physician Assistant
DX: R11.2 Nausea with vomiting, unspecified (principal); R51.9 Headache, unspecified; R53.81 Other malaise; Z20.822 Contact with and (suspected) exposure to COVID-19
CPT/HCPCS: 80048; 96361; 96374; 96375; 99283; 99284; U0003; 85025; J1885; J2405

== ENCOUNTER → 2021-07-07 03:02 | Outpatient (CLI) | payer MEDICAID, SELFPAY | PROVIDERS: PCP Physician Assistant; Visit Provider Physician Assistant ==

== ENCOUNTER 2021-09-17 09:45 | Emergency (ER) | payer MEDICAID, SELFPAY ==
[2021-09-17 09:53] VITALS: BP 118/81; PULSE 100; RESP 17; TEMP 36.3; O2SAT 96
--- NOTE | 2021-09-17 10:21 | W.ED.GENAD ---
Discharge Plan Disposition Patient Disposition: HOME Condition: Stable Discharge Details Chief Complaint: RespSymp Clinical Impression: COVID-19 Primary Care Provider: Pietro Son ED Provider: Vincent Smyth Home Meds and New Rx's Prescriptions: No Action cyclobenzaprine 10 mg tablet 10 mg PO HS PRN (Reason: muscle spasm) Qty: 5 0RF ferrous sulfate [Iron (ferrous sulfate)] 325 mg (65 mg iron) Tablet 325 mg PO DAILY magnesium 250 mg Tablet 250 mg PO DAILY spironolactone 25 mg tablet 25 mg PO DAILY Label Comments: TAKE ONE TABLET BY MOUTH EVERY DAY losartan 25 mg tablet 25 mg PO DAILY Label Comments: TAKE ONE TABLET BY MOUTH EVERY DAY Discharge Instructions Instructions: Viral Syndrome (ED) Additional Instructions: Please follow-up with your primary care physician. Please return to the emergency department if you develop worsening respiratory symptoms. Medical Decision Making 26-year-old female history of CHF, congenital, presents with shortness of breath and cough as well as fevers over the last week, currently resting comfortably afebrile nontoxic lungs clear no peripheral edema. Likely symptomatic COVID. Low suspicion for superimposed pneumonia or CHF exacerbation. Low suspicion for ACS or PE. Trial of dexamethasone. Home care instructions and strict return precautions given. HPI General Date/Time Provider Initiated Documentation: 09/17/21 09:50. HPI Narrative: 26-year-old female history of CHF congenital, presents with shortness of breath and cough for the last week, tested positive for COVID, denies ankle swelling or pain. Related Data Home Medications Medication Instructions Recorded Confirmed ferrous sulfate 325 mg (65 mg 325 mg PO DAILY 01/10/21 09/17/21 iron) tablet (Iron (ferrous sulfate)) magnesium 250 mg tablet 250 mg PO DAILY 01/10/21 09/17/21 losartan 25 mg tablet 25 mg PO DAILY 04/23/21 09/17/21 spironolactone 25 mg tablet 25 mg PO DAILY 04/23/21 09/17/21 cyclobenzaprine 10 mg tablet 10 mg PO HS PRN muscle spasm #5 07/01/21 09/17/21 tabs Previous Rx's Medication Instructions Recorded cyclobenzaprine 10 mg tablet 10 mg PO HS PRN muscle spasm #5 07/01/21 tabs Allergies Allergy/AdvReac Type Severity Reaction Status Date / Time No Known Allergies Allergy Verified 09/17/21 10:07 General Stated Complaint: RespSymp GABRIEL: 4 Review of Systems Narrative: Review of Systems Constitutional: Fever fatigue Eyes: negative ENT: negative Cardiovascular: negative Respiratory: Shortness of breath Gastrointestinal: negative : negative Musculoskeletal: negative Skin: negative Neurologic: negative Psych: negative PFSH All Active Problems (Updated 09/17/21 @ 10:24 by Vincent Smyth MD) Leg swelling in in third trimester (Acute) CHF (congestive heart failure) (Chronic) COVID (Acute) COVID-19 (Acute) HRP (high risk ) (Acute) History of cardiomyopathy and congestive heart failure. Has been seen at [facility]. Careful evaluation of cardiac function. High likelihood for delivery at a tertiary facility History of posttraumatic stress disorder (PTSD) (Acute) therapy in the past, sertraline in the past (Acute) Miscarriage, threatened, early (Acute) CHF (congestive heart failure) (Chronic) S/P hernia repair (Chronic) History of section (Chronic) Anxiety (Chronic) Nonischemic cardiomyopathy (Chronic) Buttock pain (Acute) Sciatica (Acute) Family History Maternal Grandfather Congestive heart disease Mother Bipolar 1 disorder Degenerative disc disease Paternal Cousin Seizures Brother Schizophrenia Father Schizophrenia Paternal Grandmother Breast cancer Social History Smoking/Tobacco Use Status: Former Tobacco Use Quit Date: 06/05/20 Smoking risk assessment performed?: Yes Alcohol Intake: never Drug use: Occasionally Substance use type: marijuana Pets and animals: Yes Pets and animals: cat(s) Sexually active: Yes Do you feel safe at home: Yes Do you feel safe in your relationship?: Yes History History 4 Para 1 Hx # Term Pregnancies Multiple births Hx # Pregnancies Ectopic pregnancies 1 AB induced 2 Hx Number of Living Children AB spontaneous Past Pregnancies Del. Date GA/Weeks # Preg Succ Route Wgt Sex Labor Lgth Anesthesia Location Prov Complic 10/08/13 37 No 3005.049 g Male [facility] [place] Delivery Date: 10/08/13 Last Updated by: Vicky Manuel CNM IOL due to cardiomyopathy, FHR decellerations, emergency under epidural analgesia. Exam Narrative Exam Narrative: Physical Examination General: alert, awake, cooperative, resting comfortably, no acute distress HEENT: normocephalic, atraumatic; PERRL, EOM intact, conjunctiva normal; no nasal discharge; moist mucous membranes, oral and pharyngeal mucosa normal, tolerating secretions Neck: supple, trachea midline; full ROM Chest: normal to inspection Respiratory: normal respiratory effort, speaking in full sentences, clear to auscultation, no wheezing, rales or rhonchi Cardiac: regular rate, regular rhythm, S1S2 intact, no murmurs rubs or gallops GI: abdomen soft, non-tender, non-distended; no palpable mass or hepatosplenomegaly Skin: no lesions, rashes or trauma appreciated Neuro: AAOx3, normal speech, moving all extremities Extremities: No peripheral edema Psych: Appropriate mood and affect Course Vital Signs Vital signs: Vital Signs Temperature 36.3 C L 09/17/21 09:53 Pulse 100 H 09/17/21 09:53 Respiratory Rate 17 09/17/21 09:53 Blood Pressure 118/81 09/17/21 09:53 Pulse Oximetry 96 09/17/21 09:53 Temperature 36.3 C L 09/17/21 09:53 Temperature Source Temporal Artery Scan 09/17/21 09:53 Pulse 100 H 09/17/21 09:53 Respiratory Rate 17 09/17/21 09:53 Respiratory Effort Non-Labored 09/17/21 10:04 Respiratory Depth Normal 09/17/21 10:04 Blood Pressure 118/81 09/17/21 09:53 Blood Pressure Position Sitting 09/17/21 09:53 Pulse Oximetry 96 09/17/21 09:53 Oxygen Delivery Method Room Air 09/17/21 09:53 Oxygen Flow Rate 0 09/17/21 09:53 Pain Level 5 09/17/21 09:53
[2021-09-17] MEDS: Dexamethasone 10 MG/ML VIAL IVP (10:26)
== END 2021-09-17 10:35 | disposition home or self-care (01) ==
PROVIDERS: Emergency Provider Emergency Medicine; PCP Physician Assistant
DX: U07.1 COVID-19 (principal)
CPT/HCPCS: 99283; J1100

== ENCOUNTER 2021-11-22 17:22 | Emergency (ER) | payer MEDICAID, SELFPAY ==
[2021-11-22 17:23] VITALS: BP 106/69; PULSE 101; RESP 18; TEMP 36.6; O2SAT 97
--- NOTE | 2021-11-22 18:09 | ED.GENADUL_ITS ---
Discharge Plan Disposition Patient Disposition: HOME Condition: Stable Discharge Details Clinical Impression: URI (upper respiratory infection) Primary Care Provider: Pietro Son ED Provider: Idalims Olmedo Home Meds and New Rx's Prescriptions: New amoxicillin-pot clavulanate 875-125 mg tablet 1 tab PO BID 7 Days Qty: 14 0RF Rx Instructions: Take one tablet twice daily with yogurt or a probiotic. Continued cyclobenzaprine 10 mg tablet 10 mg PO HS PRN (Reason: muscle spasm) Qty: 5 0RF ferrous sulfate [Iron (ferrous sulfate)] 325 mg (65 mg iron) Tablet 325 mg PO DAILY magnesium 250 mg Tablet 250 mg PO DAILY spironolactone 25 mg tablet 25 mg PO DAILY Label Comments: TAKE ONE TABLET BY MOUTH EVERY DAY losartan 25 mg tablet 25 mg PO DAILY Label Comments: TAKE ONE TABLET BY MOUTH EVERY DAY Entresto 24-26 mg tablet 1 tab PO BID Label Comments: TAKE ONE TABLET BY MOUTH TWICE A DAY Discharge Instructions Instructions: Upper Respiratory Infection (ED) Additional Instructions: At this time the strep swab is negative and the COVID test is negative. Please take the antibiotic twice daily with yogurt or probiotic x7 days. You are given the first dose here. Please take Tylenol or Ibuprofen with food every 4-6 hours as needed for pain and swelling. Follow up with primary care provider in 3-5 days. Return to ED sooner if any worsening or concerns. Increase oral fluids. Referrals: Pietro Son [Primary Care Provider] - 5 days HPI General Mode of arrival: ambulatory . Date/Time Provider Initiated Documentation: 11/22/21 17:32 . Limitations to Documentation: no limitations . Information obtained by: patient, RN notes reviewed and old records reviewed . HPI Narrative: 26-year-old female presents to the ER with a chief complaint of headache, sore throat, body aches for the last 48 hours. She reports T-max fever of 102. She reports mild cough. She reports sensitivity to light and sound. Denies any recent injuries. She does have a past medical history of CHF, anxiety, sciatica. No significant history of migraines. Related Data Home Medications Medication Instructions Recorded Confirmed ferrous sulfate 325 mg (65 mg 325 mg PO DAILY 01/10/21 11/22/21 iron) tablet (Iron (ferrous sulfate)) magnesium 250 mg tablet 250 mg PO DAILY 01/10/21 11/22/21 losartan 25 mg tablet 25 mg PO DAILY 04/23/21 11/22/21 spironolactone 25 mg tablet 25 mg PO DAILY 04/23/21 11/22/21 cyclobenzaprine 10 mg tablet 10 mg PO HS PRN muscle spasm #5 07/01/21 11/22/21 tabs amoxicillin 875 mg-potassium 1 tab PO BID 7 days #14 tabs 11/22/21 clavulanate 125 mg tablet sacubitril 24 mg-valsartan 26 mg 1 tab PO BID 11/22/21 11/22/21 tablet (Entresto) Previous Rx's Medication Instructions Recorded cyclobenzaprine 10 mg tablet 10 mg PO HS PRN muscle spasm #5 07/01/21 tabs amoxicillin 875 mg-potassium 1 tab PO BID 7 days #14 tabs 11/22/21 clavulanate 125 mg tablet Allergies Allergy/AdvReac Type Severity Reaction Status Date / Time No Known Allergies Allergy Verified 11/22/21 17:28 General Stated Complaint: GenMedical GABRIEL: 3 Review of Systems All systems reviewed & are unremarkable except as noted in HPI and below Constitutional Constitutional: Reports body ache(s), Reports fever(s) and Reports headache(s) ENT Ears, Nose, Mouth, and Throat: Reports headache(s) Neurologic Neurologic: Reports headache(s) [facility] All Active Problems (Updated 11/22/21 @ 20:01 by Idalmis Olmedo NP) Leg swelling in in third trimester (Acute) CHF (congestive heart failure) (Chronic) COVID (Acute) COVID-19 (Acute) URI (upper respiratory infection) (Acute) HRP (high risk ) (Acute) History of cardiomyopathy and congestive heart failure. Has been seen at [facility]. Careful evaluation of cardiac function. High likelihood for delivery at a tertiary facility History of posttraumatic stress disorder (PTSD) (Acute) therapy in the past, sertraline in the past (Acute) Miscarriage, threatened, early (Acute) CHF (congestive heart failure) (Chronic) S/P hernia repair (Chronic) History of section (Chronic) Anxiety (Chronic) Nonischemic cardiomyopathy (Chronic) Buttock pain (Acute) Sciatica (Acute) Family History Maternal Grandfather Congestive heart disease Mother Bipolar 1 disorder Degenerative disc disease Paternal Cousin Seizures Brother Schizophrenia Father Schizophrenia Paternal Grandmother Breast cancer Social History Smoking/Tobacco Use Status: Former Tobacco Use Quit Date: 06/05/20 Smoking risk assessment performed?: Yes Alcohol Intake: never Drug use: Occasionally Substance use type: marijuana Pets and animals: Yes Pets and animals: cat(s) Sexually active: Yes Do you feel safe at home: Yes Do you feel safe in your relationship?: Yes History History 4 Para 1 Hx # Term Pregnancies Multiple births Hx # Pregnancies Ectopic pregnancies 1 AB induced 2 Hx Number of Living Children AB spontaneous Past Pregnancies Del. Date GA/Weeks # Preg Succ Route Wgt Sex Labor Lgth Anesth esia Location Prov Complic 10/08/13 37 No 3005.049 g Male [facility] Delivery Date: 10/08/13 Last Updated by: Vicky Manuel CNM IOL due to cardiomyopathy, FHR decellerations, emergency under epidural analgesia. Exam Narrative Exam Narrative: Constitutional: Alert and oriented x3. Appears stated age. Normal body habitus. Head: Normocephalic, no trauma. Eyes: Pupils PERRL, Red reflex noted, EOM's intact. Eyelids symmetrical without lesions, discharge, or swelling. ENT: Bilateral TM's WNL, External ear normal to inspection, no mastoid TTP, swelling, or erythema, Nasal turbinates WNL, no nasal discharge. Normal dentition, Posterior pharynx WNL, no exudate. Chest: RRR, Normal S1, S2, distal pulses intact. Resp: Lungs clear to auscultation bilaterally, no wheezes, rales, or rhonchi. Abdomen: Soft, non-distended, Normoactive bowel sounds all 4 quads. Musculoskeletal: Normal gait, 5/5 strength to all four extremities. Skin: No suspicious rashes or lesions. Capillary refill less than 2 sec. Neurologic: Cranial nerves II-XII intact. Alert and oriented x 3. Motor: No deficits noted. Sensory: Intact bilaterally all 4 extremities. Reflexes: DTR's intact bilaterally.. Hematologic/Lymphatic: No ecchymosis, no lymphadenopathy. Course Vital Signs Vital signs: Vital Signs Temperature 36.6 C 11/22/21 17:23 Pulse 101 H 11/22/21 17:23 Respiratory Rate 18 11/22/21 17:23 Blood Pressure 106/69 11/22/21 17:23 Pulse Oximetry 97 11/22/21 17:23 Temperature 36.6 C 11/22/21 17:23 Temperature Source Temporal Artery Scan 11/22/21 17:23 Pulse 101 H 11/22/21 17:23 Respiratory Rate 18 11/22/21 17:23 Respiratory Effort Non-Labored 11/22/21 17:31 Blood Pressure 106/69 11/22/21 17:23 Blood Pressure Position Sitting 11/22/21 17:23 Pulse Oximetry 97 11/22/21 17:23 Oxygen Delivery Method Room Air 11/22/21 17:23 Oxygen Flow Rate 0 11/22/21 17:23 Pain Level 6 11/22/21 17:23
[2021-11-22] MEDS: Ketorolac 15 MG/ML VIAL IVP (18:43)
[2021-11-22] MEDS: Normal Saline 1,000 ML 1000 ML IV (18:43)
[2021-11-22 18:44] VITALS: RESP 17
[2021-11-22] MEDS: Ondansetron 4 MG/2 ML VIAL IVP (18:44)
[2021-11-22 18:47] LABS: Source Nasal/Nares
[2021-11-22 19:20] LABS: Bilirubin Negative (Negative); Blood Negative (Negative); Clarity Clear (Clear); Glucose Negative (Negative); Ketones Negative (Negative); Leukocyte Esterase Negative (Negative); Nitrite Negative (Negative); Specific Gravity 1.025 (1.005-1.025); Urobilinogen 0.2 EU/dL (Up TO 0.2); pH 6.5 (5-8)
[2021-11-22 19:42] LABS: COVID-19 PCR Negative (Negative)
[2021-11-22] MEDS: ACETAMINOPHEN 1,000 MG/100 ML BTL 400 MG IVPB (20:06)
[2021-11-22] MEDS: Amoxicillin 875/Clav. 125 TAB PO (20:07)
[2021-11-22] MEDS: Amox. 875/Clav. 125, 2 TABS/BTL 1 TAB PO (20:07)
[2021-11-22 20:10] VITALS: BP 98/47; PULSE 74; TEMP 37.1; O2SAT 98
[2021-11-22 20:22] VITALS: PULSE 80; RESP 18; TEMP 36.7; O2SAT 99
== END 2021-11-22 20:26 | disposition home or self-care (01) ==
PROVIDERS: Emergency Provider Registered Nurse Emergency; PCP Physician Assistant
DX: J06.9 Acute upper respiratory infection, unspecified (principal); Z20.822 Contact with and (suspected) exposure to COVID-19; Z87.891 Personal history of nicotine dependence
CPT/HCPCS: 87635; 87880; 96361; 96374; 96375; 99284; 81003; 87081; J0131; J1885; J2405

== ENCOUNTER 2022-01-19 18:09 | Outpatient (REF) | payer MEDICAID, SELFPAY ==
[2022-01-19 18:25] LABS: HCT 38.8 % (36.0-46.0); HGB 12.4 g/dL (11.2-15.7); MCH 28.4 pg (27.0-33.0); MCV 89 fL (80-95); MPV 11.3 fL (8.0-11.0); Platelet Count 344 10^3/uL (130-400); RBC 4.36 10^6/uL (3.93-5.22); RDW 12.3 % (11.7-14.6); RDW-SD 40.3 fL; WBC 8.46 10^3/uL (4.4-10.8)
== END 2022-01-19 18:10 | disposition home or self-care (01) ==
LOC: NCHCN 18:09
PROVIDERS: PCP Physician Assistant; Visit Provider Physician Assistant
DX: I42.8 Other cardiomyopathies (principal)
CPT/HCPCS: 80053; 85027; 84439; 84443

== ENCOUNTER 2022-01-20 19:38 | Outpatient (REF) | payer MEDICAID, SELFPAY ==
[2022-01-20 20:00] LABS: ALT 13 U/L (14-59); AST 14 U/L (15-37); Albumin 3.8 g/dL (3.4-5.0); Alkaline Phosphatase 73 U/L (46-116); Anion Gap 8.1 mmol/L (3-11); BUN 13 mg/dL (7-18); Bilirubin, Total 0.2 mg/dL (0.2-1.0); CO2 28.9 mmol/L (21.0-32.0); CREATININE 0.9 mg/dL (0.55-1.02); Calcium 9.3 mg/dL (8.5-10.1); Chloride 104 mmol/L (98-107); Estimated GFR 90.98 (mL/min/1.73m2); Glucose 105 mg/dL (74-106); Potassium 3.9 mmol/L (3.5-5.1); Sodium 141 mmol/L (136-145); TSH 1.28 uIU/mL (0.36-3.74); Total Protein 7.3 g/dL (6.4-8.2)
== END 2022-01-20 19:39 | disposition home or self-care (01) ==
LOC: NCHCN 19:38
PROVIDERS: PCP Physician Assistant; Visit Provider Physician Assistant
DX: I42.8 Other cardiomyopathies (principal)
CPT/HCPCS: 80053; 84439; 84443

== ENCOUNTER 2022-05-20 00:04 | Emergency (ER) | payer MEDICAID, SELFPAY ==
[2022-05-20] VITALS (40 sets, daily range): BP systolic 72–109; BP diastolic 36–63; PULSE 97–145; RESP 11–28; TEMP 36.8; O2SAT 95–100
--- NOTE | 2022-05-20 01:00 | DI.CT_ITS ---
Exam(s) CT ABDOMEN PELVIS W EXAM: CT ABDOMEN PELVIS W CLINICAL HISTORY: diarhea, ruq pain, eval GB/colitis. TECHNIQUE: Imaging Protocol: Axial computed tomography images with coronal and sagittal reformatted images were created and reviewed CONTRAST MATERIAL: Intravenous: Omnipaque 350 Contrast volume:100 ml Oral: no COMPARISON: CT CT ABDOMEN PELVIS W from 02/02/2019 FINDINGS: ABDOMEN: Lung Bases: Small patchy infiltrate versus atelectasis left lung base. Liver: Normal density. No measurable mass. Gallbladder and biliary tract: No radiodense calculus or dilation. Pancreas: Normal density, no abnormal calcifications or inflammatory process. Spleen: Normal. Kidneys: Normal size, contour and axis. No radiodense stones or obstructive uropathy. No suspicious m asses seen. Adrenal glands: No masses seen. Abdominal Aorta: Abdominal portion non-dilated. Soft tissues: Unremarkable. PELVIS: Bladder: Not well distended however the wall appears thickened. No calculi.No focal mass. Bowel: Fluid in ascending colon and distal small bowel loops. No obstruction. No bowel wall thicken ing. Appendix normal. Peritoneal cavity: No ascites, collection or mesenteric inflammatory response. Bones: Within normal limits for age. Reproductive organs: Within normal limits. Lymph nodes: Numerous mildly enlarged mesenteric lymph nodes, consistent with reactive lymph nodes. M esenteric adenitis could also be considered. Impression: Thick-walled urinary bladder, suspicious for cystitis. Mildly enlarged mesenteric lymph nodes could indicate mesenteric adenitis or could be reactive second alec to gastritis or colitis. Fluid in distal small bowel and colon. No evidence of wall thickening or obstruction. RADIATION DOSE DELIVERED: 1,525.52mGy.cm Total DLP DATA REPOSITORY: All CT scans at this facility are submitted to the National Radiology Data Registry (NRDR) Dose Index Registry (DIR) with the [employer] (ACR). RADIATION OPTIMIZATION: All CT scans at this facility use at least one of these dose optimization te chniques: automated exposure control; mA and/or kV adjustment per patient size (includes targeted exa ms where dose is matched to clinical indication); or iterative reconstruction.
--- NOTE | 2022-05-20 01:04 | ED.GENADUL_ITS ---
Discharge Plan Disposition Patient Disposition: Home Discharge Details Clinical Impression: Diarrhea, Enteritis, Dehydration Primary Care Provider: Pietro Son ED Provider: Rufino To Home Meds and New Rx's Prescriptions: Continued cyclobenzaprine 10 mg tablet 10 mg PO HS PRN (Reason: muscle spasm) Qty: 5 0RF Fish Oil 120-180 mg capsule 1 cap PO DAILY Alive Hair, Skin and Nails 1,250 mcg-50 mg -67.5 mg-15 mg tablet,chewable PO metoprolol succinate 25 mg tablet extended release 24 hr 25 mg PO DAILY ferrous sulfate [Iron (ferrous sulfate)] 325 mg (65 mg iron) Tablet 325 mg PO DAILY magnesium 250 mg Tablet 250 mg PO DAILY spironolactone 25 mg tablet 25 mg PO DAILY Patient Comments: TAKE ONE TABLET BY MOUTH EVERY DAY losartan 25 mg tablet 25 mg PO DAILY Patient Comments: TAKE ONE TABLET BY MOUTH EVERY DAY Entresto 24-26 mg tablet 1 tab PO BID Patient Comments: TAKE ONE TABLET BY MOUTH TWICE A DAY Discharge Instructions Instructions: Dehydration (ED), Acute Diarrhea (ED) Additional Instructions: At this time your labs have stabilized. Please continue to drink plenty fluids at home. As we discussed together, please take a probiotic, crackers and high- fiber foods. Avoid any tomato-based product spicy foods or greasy foods. When you do have a bowel movement again, please take it into the lab for testing. We have given you the lab slip. If you notice any worsening of your symptoms, or any new symptoms such as vomiting, diarrhea, fever, chills, shortness of breath, chest pain, numbness, weakness, or fainting , please return immediately to the emergency department for reevaluation. Please follow up with your primary care provider as soon as possible for reassessment and reevaluation. As always, it was a pleasure participating in your medical care today. Referrals: Pietro Son [Primary Care Provider] - Medical Decision Making 26-year-old female with a past medical history of congestive heart failure since she was a child, PTSD, nonischemic cardiomyopathy, tubal ligation, presents today for evaluation of diarrhea. Patient states that 4 days ago on Wednesday her child came home from daycare with diarrhea. Shortly after that the patient began having diarrhea. She was initially having a few watery episodes per day, but then today starting at 6 PM (for the last 6 hours) she has had 20 episodes of watery diarrhea. No blood. She has not eaten anything for the last 48 hours. Whenever she drinks a small amount of liquid it comes right through. She denies any blood, vomiting, or shortness of breath. She denies any numbness or tingling. She does feel generally weak. She denies family history or any personal history of celiac disease, Crohn's disease, or ulcerative colitis. Patient has no other complaints at this time. Her child symptoms have resolved. Patient denies any foreign travel or drinking or eating from water from a pond or oscar. Additionally she does admit to some mild right upper quadrant pain which is new. Exam demonstrates a fatigued appearing female. Heart rate in the 140s, blood pr essure 102 systolic. Notably dry mucous membranes. Pain is present in the right upper quadrant. No evidence of guarding or rebound otherwise. Differential is highest for likely viral gastroenteritis causing dehydration, however her right upper quadrant tenderness is concerning for gallbladder pathology, or acute cholecystitis. We will rehydrate gently, get a CT scan of the abdomen, evaluate for electrolyte abnormalities, monitor closely and reassess. 3:12 AM On reassessment the patient is clinically feeling much better. Heart rate has gone from the 140s to the low 100s. Blood pressure is slightly low, but the patient feels clinically much better. We will give an additional liter of fluids. Laboratory work-up demonstrates no white count or bandemia. Electrolytes stable, lactate normal. Lipase normal. CT scan shows evidence of enteritis, there is some bladder wall thickening, but the patient has no symptoms of cystitis or UTI. There is also evidence of some mild mesenteric adenitis. Patient otherwise feels well. She has not had any bowel movements here. We will send her home with an outpatient stool study form. We will finish the fluids and reassess. 4:42 AM Laboratory work-up is returned normal, lactate normal, on reassessment the patient is feeling much better she got up ambulated around did very well. CT scan shows evidence of enteritis, no acute process otherwise. Heart rate has normalized, blood pressures in the 90s systolic, but the patient states that she feels well and would like to go home. We did offer additional IV fluids, but she states that at this stage she would like to go home and sleep and she feels that she has been resuscitated enough. Patient is stable for discharge otherwise. No syncope or lightheadedness. We will send stool studies, recommend high-fiber diet, probiotic, small amount of yogurt with live culture. Discussed red flags for which to return. Suspect enteritis likely from food or virus like she got from her child, as a source of her symptoms. I have extensively reviewed the treatment plan and discharge instructions with the patient. I have addressed all patient concerns at this time. The patient was mad e aware of what symptoms to monitor for that would warrant a return to the emergency department. Discussed the plan with the patient, they demonstrate verbal understanding and agreement with our assessment and plan at this time. The documentation in this chart was dictated using [employer] dictation software. Please excuse any dictation errors. FINDINGS: Lungs: 9 mm nodule in the left lower lobe with adjacent ground-glass and branching opacity, not imaged on prior study and of questionable significance in this 26 year patient. Comparison with additional prior studies may be helpful. Liver: No focal hepatic lesion identified. Gallbladder and bile ducts: No radiodense gallbladder calculi seen. Pancreas: No CT evidence for acute pancreatitis. Spleen: Splenomegaly. Adrenal glands: No mass. Kidneys and ureters: No hydronephrosis or evidence for pyelonephritis. Stomach and bowel: No intestinal obstruction is evident. Fluid in nondilated small bowel. Moderate colonic fluid. Appendix: No evidence of appendicitis Intraperitoneal space: No free air. Vasculature: No abdominal aortic aneurysm. Lymph nodes: Mesenteric lymphadenopathy. Urinary bladder: Bladder wall thickening. Reproductive: Small corpus luteum cyst in the right ovary. Bones/joints: No pertinent acute abnormality seen. Soft tissues: No pertinent acute abnormality seen. IMPRESSION: 1. Bladder wall thickening consistent with cystitis. 2. Fluid-filled small bowel, nonspecific and can be a normal finding or reflective of mild enteritis. 3. Mesenteric lymphadenopathy may reflect bowel pathology and/or mesenteric adenitis. 4. Nonacute findings as outlined above. Thank you for allowing us to participate in the care of your patient. Dictated and Authenticated by: Michelle Parson MD 05/20/2022 2:52 AM Eastern Time ([place] & [place]) HPI General Date/Time Provider Initiated Documentation: 05/20/22 00:35 . HPI Narrative: 26-year-old female with a past medical history of congestive heart failure since she was a child, PTSD, nonischemic cardiomyopathy, tubal ligation, presents today for evaluation of diarrhea. Patient states that 4 days ago on Wednesday her child came home from daycare with diarrhea. Shortly after that the patient began having diarrhea. She was initially having a few watery episodes per day, but then today starting at 6 PM (for the last 6 hours) she has had 20 episodes of watery diarrhea. No blood. She has not eaten anything for the last 48 hours. Whenever she drinks a small amount of liquid it comes right through. She denies any blood, vomiting, or shortness of breath. She denies any numbness or tingling. She does feel generally weak. She denies family history or any personal history of celiac disease, Crohn's disease, or ulcerative colitis. Patient has no other complaints at this time. Her child symptoms have resolved. Patient denies any foreign travel or drinking or eating from water from a pond or oscar. Additionally she does admit to some mild right upper quadrant pain which is new. Related Data Home Medications Medication Instructions Recorded Confirmed ferrous sulfate 325 mg (65 mg 325 mg PO DAILY 01/10/21 11/22/21 iron) tablet (Iron (ferrous sulfate)) magnesium 250 mg tablet 250 mg PO DAILY 01/10/21 11/22/21 losartan 25 mg tablet 25 mg PO DAILY 04/23/21 11/22/21 spironolactone 25 mg tablet 25 mg PO DAILY 04/23/21 11/22/21 cyclobenzaprine 10 mg tablet 10 mg PO HS PRN muscle spasm #5 07/01/21 11/22/21 tabs sacubitril 24 mg-valsartan 26 mg 1 tab PO BID 11/22/21 11/22/21 tablet (Entresto) biotin 1,250 mcg-collagen 50 tab PO 12/24/21 mg-vit C 67.5 mg-vit E-herbal chew tablet (Alive Hair, Skin and Nails) docosahexaenoic acid (dha)-epa 120 1 cap PO DAILY 12/24/21 mg-180 mg capsule (Fish Oil) metoprolol succinate 25 mg 25 mg PO DAILY 12/24/21 tablet,extended release 24 hr Previous Rx's Medication Instructions Recorded cyclobenzaprine 10 mg tablet 10 mg PO HS PRN muscle spasm #5 07/01/21 tabs Allergies Allergy/AdvReac Type Severity Reaction Status Date / Time No Known Allergies Allergy Verified 11/22/21 17:28 General Stated Complaint: Abd Prob GABRIEL: 3 Review of Systems All systems reviewed & are unremarkable except as noted in HPI and below PFSH All Active Problems (Updated 05/20/22 @ 03:55 by Rufino To DO) Diarrhea (Acute) Enteritis (Acute) Dehydration (Acute) Leg swelling in in third trimester (Acute) CHF (congestive heart failure) (Chronic) COVID (Acute) COVID-19 (Acute) HRP (high risk ) (Acute) History of cardiomyopathy and congestive heart failure. Has been seen at [facility]. Careful evaluation of cardiac function. High likelihood for delivery at a tertiary facility History of posttraumatic stress disorder (PTSD) (Acute) therapy in the past, sertraline in the past (Acute) Miscarriage, threatened, early (Acute) CHF (congestive heart failure) (Chronic) S/P hernia repair (Chronic) History of section (Chronic) Anxiety (Chronic) Nonischemic cardiomyopathy (Chronic) Buttock pain (Acute) Sciatica (Acute) Medical History (Updated 05/20/22 @ 03:55 by Rufino To DO) Chronic depression Low back pain Menorrhagia Family History Maternal Grandfather Congestive heart disease Mother Bipolar 1 disorder Degenerative disc disease Paternal Cousin Seizures Brother Schizophrenia Father Schizophrenia Paternal Grandmother Breast cancer Social History Smoking/Tobacco Use Status: Former Tobacco Use Quit Date: 06/05/20 Smoking risk assessment performed?: Yes Alcohol Intake: never Drug use: Occasionally Substance use type: marijuana Pets and animals: Yes Pets and animals: cat(s) Sexually active: Yes Do you feel safe at home: Yes Do you feel safe in your relationship?: Yes History History 4 Para 1 Hx # Term Pregnancies Multiple births Hx # Pregnancies Ectopic pregnancies 1 AB induced 2 Hx Number of Living Children AB spontaneous Past Pregnancies Del. Date GA/Weeks # Preg Succ Route Wgt Sex Labor Lgth Anesth esia Location Prov Complic 10/08/13 37 No 3005.049 g Male [facility] Delivery Date: 10/08/13 Last Updated by: Vicky Manuel CNM IOL due to cardiomyopathy, FHR decellerations, emergency under epidural analgesia. Exam Narrative Exam Narrative: 1.Const: Well-nourished, Well-developed, appearing stated age 2.Eyes: PERRL, no conjunctival injection, and symmetrical lids. 3.ENT: Atraumatic external nose and ears. Notably dry MM. Neck: Symmetric, trachea midline, No thyromegaly. 4.CVS: +S1/S2, No murmurs or gallops. Peripheral pulses 2+ and equal in all extremities. Brisk capillary refill in all extremities. 5.RESP: Unlabored respiratory effort. Clear to auscultation bilaterally. No wheezes rales or rhonchi 6.GI: Soft, nondistended, mild tenderness in the right upper quadrant on palpation. No guarding. No pain to McBurney's point. 7.MSK: Normocephalic/Atraumatic, Extremities w/o deformity or ttp No cyanosis or clubbing, Normal movement of all extremities 8.Skin: Warm, Dry. No rashes or lesions. 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 Sensation grossly intact, no focal neurologic deficits. 10.Psych: (AAO) x3. Appropriate mood and affect Course Vital Signs Vital signs: Vital Signs Temperature 36.8 C 05/20/22 00:57 Pulse 145 H 05/20/22 00:57 Respiratory Rate 18 05/20/22 00:57 Blood Pressure 102/57 L 05/20/22 00:57 Pulse Oximetry 97 05/20/22 00:57 Temperature 36.8 C 05/20/22 00:57 Temperature Source Temporal Artery Scan 05/20/22 00:57 Pulse 145 H 05/20/22 00:57 Respiratory Rate 18 05/20/22 00:57 Blood Pressure 102/57 L 05/20/22 00:57 Blood Pressure Position Sitting 05/20/22 00:57 Pulse Oximetry 97 05/20/22 00:57 Oxygen Delivery Method Room Air 05/20/22 00:57 Oxygen Flow Rate 0 05/20/22 00:57
[2022-05-20 01:12] LABS: Lactate 1.3 mmol/L (0.6-1.4)
[2022-05-20 01:14] LABS: Abs Immature Grans 0.03 10^3/uL (0.0-0.06); Absolute Basophil Count 0.03 10^3/uL (0.0-0.2); Absolute Eosinophil Count 0.06 10^3/uL (0.0-0.7); Absolute Monocyte Count 0.31 10^3/uL (0.1-0.8); Absolute Neutrophil Count 9.12 10^3/uL (1.2-6.7); Basophils % 0.3; Eosinophils % 0.6; HCT 42.3 % (36.0-46.0); HGB 13.5 g/dL (11.2-15.7); Immature Grans % 0.3; MCH 27.9 pg (27.0-33.0); MCHC 31.9 % (32.0-36.0); MCV 87 fL (80-95); MPV 10.2 fL (8.0-11.0); Monocytes % 3.1; Neutrophils % 91.7; Platelet Count 251 10^3/uL (130-400); RBC 4.84 10^6/uL (3.93-5.22); RDW 12.5 % (11.7-14.6); RDW-SD 39.6 fL; WBC 9.95 10^3/uL (4.4-10.8)
[2022-05-20] MEDS: Normal Saline 1,000 ML 1000 ML IV (01:15)
[2022-05-20 01:30] LABS: ALT 20 U/L (14-59); AST 21 U/L (15-37); Albumin 3.6 g/dL (3.4-5.0); Alkaline Phosphatase 85 U/L (46-116); Anion Gap 10.2 mmol/L (3-11); BUN 8 mg/dL (7-18); Bilirubin, Total 0.6 mg/dL (0.2-1.0); CO2 26.8 mmol/L (21.0-32.0); Calcium 8.6 mg/dL (8.5-10.1); Chloride 102 mmol/L (98-107); Estimated GFR 80.18 (mL/min/1.73m2); Glucose 119 mg/dL (74-106); Lipase 21 U/L (16-77); Potassium 3.4 mmol/L (3.5-5.1); Sodium 139 mmol/L (136-145); Total Protein 8.1 g/dL (6.4-8.2)
[2022-05-20] MEDS: Omnipaque 350 MG/ML 100 ML BTL IJ (01:55)
[2022-05-20] MEDS: ACETAMINOPHEN 1,000 MG/100 ML BTL 400 MG IVPB (02:39)
[2022-05-20] MEDS: Normal Saline 500 ML IV (02:47)
--- NOTE | 2022-05-20 02:53 | DI.VRAD_ITS ---
PROCEDURE INFORMATION: Exam: CT Abdomen And Pelvis With Contrast Exam date and time: 05/20/2022 1:56 AM Age: 26 years old Clinical indication: Abdominal pain; Localized; Right upper quadrant (ruq); Prior surgery; Surgery date: 6+ months; Surgery type: , hernia repair; Patient HX: Diarhea, ruq pain, eval gb/colitis TECHNIQUE: Imaging protocol: Computed tomography of the abdomen and pelvis with contrast. Radiation optimization: All CT scans at this facility use at least one of these dose optimization techniques: automated exposure control; mA and/or kV adjustment per patient size (includes targeted exams where dose is matched to clinical indication); or iterative reconstruction. Contrast material: OMNIPAQUE 350; Contrast volume: 100 ml; Contrast route: INTRAVENOUS (IV); COMPARISON: CT ABDOMEN PELVIS W 02/02/2019 4:26 PM FINDINGS: Lungs: 9 mm nodule in the left lower lobe with adjacent ground-glass and branching opacity, not imaged on prior study and of questionable significance in this 26 year patient. Comparison with additional prior studies may be helpful. Liver: No focal hepatic lesion identified. Gallbladder and bile ducts: No radiodense gallbladder calculi seen. Pancreas: No CT evidence for acute pancreatitis. Spleen: Splenomegaly. Adrenal glands: No mass. Kidneys and ureters: No hydronephrosis or evidence for pyelonephritis. Stomach and bowel: No intestinal obstruction is evident. Fluid in nondilated small bowel. Moderate colonic fluid. Appendix: No evidence of appendicitis. Intraperitoneal space: No free air. Vasculature: No abdominal aortic aneurysm. Lymph nodes: Mesenteric lymphadenopathy. Urinary bladder: Bladder wall thickening. Reproductive: Small corpus luteum cyst in the right ovary. Bones/joints: No pertinent acute abnormality seen. Soft tissues: No pertinent acute abnormality seen. IMPRESSION: 1. Bladder wall thickening consistent with cystitis. 2. Fluid-filled small bowel, nonspecific and can be a normal finding or reflective of mild enteritis. 3. Mesenteric lymphadenopathy may reflect bowel pathology and/or mesenteric adenitis. 4. Nonacute findings as outlined above. Dictated and Authenticated by: Michelle Parson MD. Ordering:HELIO Joy MD
--- NOTE | 2022-05-20 04:34 | NUR.NOTE ---
Nursing Note: MD aware of bp 89/50, hr 101, states ok for discharge, pt requesting to go home, states she feels better
[2022-05-20 05:20] LABS: C Diff PCR Negative (Negative)
[2022-05-21 11:11] LABS: Campylobacter PCR Negative (Negative); Salmonella PCR Negative (Negative); Shiga Toxin PCR Negative (Negative); Shigella/Enteroinvasive Ecoli Negative (Negative)
== END 2022-05-20 04:36 | disposition home or self-care (01) ==
PROVIDERS: Emergency Provider Student in an Organized Health Care Education/Training Program; PCP Physician Assistant
DX: R19.7 Diarrhea, unspecified (principal); E86.0 Dehydration; R10.11 Right upper quadrant pain
CPT/HCPCS: 80053; 83690; 87329; 87493; 87505; 96361; 96365; 99284; 99285; 74177; 83605; 85025; 87177; J0131; J3490

== ENCOUNTER 2022-12-08 10:16 | Outpatient (CLI) | payer MEDICAID, SELFPAY ==
--- NOTE | 2022-12-08 10:15 | RT.EKG_ITS ---
APPROVED REPORT Exam: Resting ECG Reason for Exam: chest discomfort Patient Location: O HR:90 bpm ECG Measurements Heart Rate 90 AXIS OH 145 P 31 QRSd 93 QRS 29 QT 346 T 29 QTc 424 Conclusion Sinus rhythm...normal P axis, V-rate 50- 99 Normal Electrocardiogram
--- NOTE | 2022-12-08 10:30 | DI.RAD_ITS ---
Exam(s) XR CHEST 2V PA LATERAL EXAM: XR CHEST 2V PA LATERAL CLINICAL HISTORY: eval pathology,SOB, R06.02 TECHNIQUE: 2D digital imaging was performed of the chest. Two images were obtained. PA and lateral views were obtained. COMPARISON: CR,XR XR CHEST 2V PA LATERAL from 05/16/2019 FINDINGS: MEDIASTINUM: Normal. HEART: Normal. PULMONARY VASCULATURE: Normal. LUNGS: Clear. PLEURAL SPACE: No pleural effusion or pneumothorax. BONE:Within normal limits for the patient's age. OTHER FINDINGS:Normal. IMPRESSION: No acute pulmonary findings. DATA REPOSITORY: RADIATION DOSE DELIVERED:
== END 2022-12-08 10:17 | disposition home or self-care (01) ==
PROVIDERS: PCP Physician Assistant; Visit Provider Nurse Practitioner Family
DX: R07.89 Other chest pain (principal); R06.02 Shortness of breath
CPT/HCPCS: 93010; 71046

== ENCOUNTER 2023-04-08 12:15 | Emergency (ER) | payer MEDICAID, SELFPAY ==
[2023-04-08] VITALS (34 sets, daily range): BP systolic 94–149; BP diastolic 59–91; PULSE 73–152; RESP 10–30; O2SAT 96–100
--- NOTE | 2023-04-08 12:15 | RT.EKG_ITS ---
APPROVED REPORT Exam: Resting ECG Reason for Exam: racing heart rate Patient Location: E HR:144 bpm ECG Measurements Heart Rate [address] 162 P 86 QRSd 87 QRS 53 QT 306 T -81 QTc 474 Conclusion Sinus tachycardia...rate> 99 Nonspecific repol abnormality, diffuse leads...ST dep, T flat/neg, ant/lat/inf
[2023-04-08 12:38] LABS: Abs Immature Grans 0.04 10^3/uL (0.0-0.06); Absolute Basophil Count 0.06 10^3/uL (0.0-0.2); Absolute Eosinophil Count 0.32 10^3/uL (0.0-0.7); Absolute Lymphocyte Count 3.13 10^3/uL (1.2-3.4); Absolute Neutrophil Count 5.57 10^3/uL (1.2-6.7); Basophils % 0.6; Eosinophils % 3.3; HCT 35.1 % (36.0-46.0); HGB 11.4 g/dL (11.2-15.7); Immature Grans % 0.4; Lymphocytes % 31.9; MCH 27.7 pg (27.0-33.0); MCHC 32.5 % (32.0-36.0); MCV 85 fL (80-95); MPV 10.2 fL (8.0-11.0); Monocytes % 7.1; Neutrophils % 56.7; Platelet Count 318 10^3/uL (130-400); RBC 4.11 10^6/uL (3.93-5.22); RDW 13.2 % (11.7-14.6); RDW-SD 40.8 fL; WBC 9.82 10^3/uL (4.4-10.8)
[2023-04-08 12:58] LABS: ALT 15 U/L (14-59); AST 12 U/L (15-37); Albumin 3.7 g/dL (3.4-5.0); Alkaline Phosphatase 71 U/L (46-116); Anion Gap 11.2 mmol/L (3-11); BUN 9 mg/dL (7-18); Bilirubin, Total 0.3 mg/dL (0.2-1.0); CO2 25.8 mmol/L (21.0-32.0); Calcium 9.5 mg/dL (8.5-10.1); Chloride 104 mmol/L (98-107); Estimated GFR 79.68 (mL/min/1.73m2); Glucose 98 mg/dL (74-106); Sodium 141 mmol/L (136-145); Total Protein 7.4 g/dL (6.4-8.2); Troponin I < 50 ng/L (< or =60)
[2023-04-08 13:07] LABS: D-Dimer 317 ng/mlFEU (<500)
[2023-04-08] MEDS: LORazepam 2 MG/ML VIAL 1 MG IVP (13:26)
[2023-04-08] MEDS: Lactated Ringers 500 ML IV (13:26)
[2023-04-08] MEDS: Potassium Chloride 20 MEQ TABCR 40 MEQ PO (14:06)
--- NOTE | 2023-04-08 14:32 | ED.GENADUL_ITS ---
HPI General Mode of arrival: ambulatory . Date/Time Provider Initiated Documentation: 04/08/23 12:22 . Limitations to Documentation: no limitations . Information obtained by: patient . HPI Narrative: 27yo female his history of anxiety disorder and cardiomyopathy, chronic since childhood, here with chief complaint of panic attack. Patient notes severe anxiety with associated chest pressure and palpitations that started just prior to arrival. Symptoms are severe. No modifiers. Related Data Home Medications Medication Instructions Recorded Confirmed spironolactone 25 mg tablet 25 mg PO DAILY 04/23/21 04/08/23 sacubitril 24 mg-valsartan 26 mg 1 tab PO BID 11/22/21 04/08/23 tablet (Entresto) metoprolol succinate 25 mg 25 mg PO DAILY 12/24/21 04/08/23 tablet,extended release 24 hr inhalational spacing device #1 ea 12/08/22 04/08/23 (Aerochamber MV spacer) Previous Rx's Medication Instructions Recorded inhalational spacing device #1 ea 12/08/22 (Aerochamber MV spacer) Allergies Allergy/AdvReac Type Severity Reaction Status Date / Time No Known Allergies Allergy Verified 04/08/23 12:22 General Stated Complaint: Chest Pain GABRIEL: 3 Review of Systems All systems reviewed & are unremarkable except as noted in HPI and below Constitutional Constitutional: Denies fever(s) Cardiovascular Cardiovascular: Reports as per HPI Exam Const General: cooperative and no acute distress HENMT Mouth: moist mucous membranes Eyes Conjunctivae: normal conjunctivae Sclera: normal sclerae Neck Neck: trachea midline and supple Thyroid: thyroid normal Resp Auscultation: clear to auscultation bilaterally, no rales, no rhonchi and no wheezes Cardio Rate: tachycardic Rhythm: regular rhythm GI Palpation: soft, not firm, no guarding, no masses, not rigid and nontender Skin General skin exam: no rashes or lesions noted Neuro General: patient alert, patient awake, patient oriented x3 and tone normal Extrem General: no edema Psych Appearance: grossly normal Mental Status: mental status grossly normal Speech and Movement: speech and movement normal Mood: anxious mood Affect: anxious affect Thought Process: normal Thought Content: normal Insight: insight good Judgment: judgment good Course Vital Signs Vital signs: Vital Signs Pulse 140 H 04/08/23 12:19 Respiratory Rate 15 04/08/23 12:19 Blood Pressure 149/68 H 04/08/23 12:19 Pulse Oximetry 100 04/08/23 12:19 Pulse 128 H 04/08/23 12:31 Pulse 126 H 04/08/23 12:40 Respiratory Rate 12 04/08/23 12:40 Respiratory Effort Normal 04/08/23 12:26 Respiratory Depth Normal 04/08/23 12:26 Respiratory Pattern Normal 04/08/23 12:26 Blood Pressure 132/73 04/08/23 12:31 Blood Pressure Mean 92 04/08/23 12:31 Blood Pressure Position Sitting 04/08/23 12:19 Pulse Oximetry 100 04/08/23 12:40 Oxygen Delivery Method Room Air 04/08/23 12:19 Oxygen Flow Rate 0 04/08/23 12:19 Lab/Test Results Lab/Test Results: Laboratory Tests Range/Units 04/08/23 12:30 WBC (4.4-10.8) 10^3/uL 9.82 RBC (3.93-5.22) 10^6/uL 4.11 Hgb (11.2-15.7) g/dL 11.4 Hct (36.0-46.0) % 35.1 L MCV (80-95) fL 85 MCH (27.0-33.0) pg 27.7 MCHC (32.0-36.0) % 32.5 RDW (11.7-14.6) % 13.2 Plt Count (130-400) 10^3/uL 318 MPV (8.0-11.0) fL 10.2 Immature Gran % 0.4 Neutrophils % 56.7 Lymphocytes % 31.9 Monocytes % 7.1 Eosinophils % 3.3 Basophils % 0.6 Nucleated RBC % (0.0-0.3) % 0.0 Absolute Neutrophils (1.2-6.7) 10^3/uL 5.57 Absolute Lymphocytes (1.2-3.4) 10^3/uL 3.13 Absolute Monocytes (0.1-0.8) 10^3/uL 0.70 Absolute Eosinophils (0.0-0.7) 10^3/uL 0.32 Absolute Basophils (0.0-0.2) 10^3/uL 0.06 D-Dimer (<500) ng/mlFEU 317 Sodium (136-145) mmol/L 141 Potassium (3.5-5.1) mmol/L 3.0 L Chloride (98-107) mmol/L 104 Carbon Dioxide (21.0-32.0) mmol/L 25.8 Anion Gap (3-11) mmol/L 11.2 H BUN (7-18) mg/dL 9 Creatinine (0.55-1.02) mg/dL 1.0 Est GFR (CKD-EPI 2020) (mL/min/1.73m2) 79.68 Glucose (74-106) mg/dL 98 Calcium (8.5-10.1) mg/dL 9.5 Magnesium (1.8-2.4) mg/dL 2.0 Total Bilirubin (0.2-1.0) mg/dL 0.3 AST (15-37) U/L 12 L ALT (14-59) U/L 15 Alkaline Phosphatase (46-116) U/L 71 Troponin I (< or =60) ng/L < 50 Total Protein (6.4-8.2) g/dL 7.4 Albumin (3.4-5.0) g/dL 3.7 TSH (0.36-3.74) uIU/mL 1.00 Medical Decision Making 1445 -- 27-year-old female with history of anxiety disorder, cardiomyopathy, here with severe anxiety with palpitations and chest tightness. Patient is tachycardic. Saturating well in no respiratory distress. Normotensive. Considered electrolyte abnormalities. Labs reviewed and hypokalemia noted with potassium of 3.0. I will give potassium chloride orally. Considered pulmonary embolism. Patient is low risk. D-dimer negative. EKG was reviewed and interpreted by me: Please report, sinus tachycardia 144 bpm, nonspecific repolarization abnormality diffuse leads. Troponin negative. Patient was given Ativan 1 mg IV for anxiety. IV fluid bolus was given. --I reviewed outside hospital records: [facility] [place]/06 showed LVEF 39% with global hypokinesis. 1555 --patient reassessed and symptoms completely resolved. Feeling much better. Delta troponin negative. -- Repeat EKG reviewed and interpreted by me: Please see report, Suspect panic attack. Plan for discharge with outpatient follow-up. Usual customary discharge instructions reviewed with the patient. Lab Data Lab results reviewed: Yes I reviewed the patient's lab results. Labs: Laboratory Tests Range/Units 04/08/23 12:30 WBC (4.4-10.8) 10^3/uL 9.82 RBC (3.93-5.22) 10^6/uL 4.11 Hgb (11.2-15.7) g/dL 11.4 Hct (36.0-46.0) % 35.1 L MCV (80-95) fL 85 MCH (27.0-33.0) pg 27.7 MCHC (32.0-36.0) % 32.5 RDW (11.7-14.6) % 13.2 Plt Count (130-400) 10^3/uL 318 MPV (8.0-11.0) fL 10.2 Immature Gran % 0.4 Neutrophils % 56.7 Lymphocytes % 31.9 Monocytes % 7.1 Eosinophils % 3.3 Basophils % 0.6 Nucleated RBC % (0.0-0.3) % 0.0 Absolute Neutrophils (1.2-6.7) 10^3/uL 5.57 Absolute Lymphocytes (1.2-3.4) 10^3/uL 3.13 Absolute Monocytes (0.1-0.8) 10^3/uL 0.70 Absolute Eosinophils (0.0-0.7) 10^3/uL 0.32 Absolute Basophils (0.0-0.2) 10^3/uL 0.06 D-Dimer (<500) ng/mlFEU 317 Sodium (136-145) mmol/L 141 Potassium (3.5-5.1) mmol/L 3.0 L Chloride (98-107) mmol/L 104 Carbon Dioxide (21.0-32.0) mmol/L 25.8 Anion Gap (3-11) mmol/L 11.2 H BUN (7-18) mg/dL 9 Creatinine (0.55-1.02) mg/dL 1.0 Est GFR (CKD-EPI 2020) (mL/min/1.73m2) 79.68 Glucose (74-106) mg/dL 98 Calcium (8.5-10.1) mg/dL 9.5 Magnesium (1.8-2.4) mg/dL 2.0 Total Bilirubin (0.2-1.0) mg/dL 0.3 AST (15-37) U/L 12 L ALT (14-59) U/L 15 Alkaline Phosphatase (46-116) U/L 71 Troponin I (< or =60) ng/L < 50 Total Protein (6.4-8.2) g/dL 7.4 Albumin (3.4-5.0) g/dL 3.7 TSH (0.36-3.74) uIU/mL 1.00 Quality:SDOH Health Related Social Needs: No Data to Display PFSH All Active Problems (Updated 04/08/23 @ 14:48 by Ervin Leung MD) Acute hypokalemia (Acute) Anxiety attack (Acute) Leg swelling in in third trimester (Acute) CHF (congestive heart failure) (Chronic) COVID (Acute) COVID-19 (Acute) HRP (high risk ) (Acute) History of cardiomyopathy and congestive heart failure. Has been seen at [facility]. Careful evaluation of cardiac function. High likelihood for delivery at a tertiary facility History of posttraumatic stress disorder (PTSD) (Acute) therapy in the past, sertraline in the past (Acute) Miscarriage, threatened, early (Acute) CHF (congestive heart failure) (Chronic) S/P hernia repair (Chronic) History of section (Chronic) Anxiety (Chronic) Nonischemic cardiomyopathy (Chronic) Buttock pain (Acute) Sciatica (Acute) Medical History Low back pain Chronic depression Menorrhagia Family History Maternal Grandfather Congestive heart disease Mother Bipolar 1 disorder Degenerative disc disease Paternal Cousin Seizures Brother Schizophrenia Father Schizophrenia Paternal Grandmother Breast cancer Social History Smoking/Tobacco Use Status: Former Tobacco Use Quit Date: 06/05/20 Smoking risk assessment performed?: Yes Alcohol Intake: never Drug use: Occasionally Substance use type: marijuana Pets and animals: Yes Pets and animals: cat(s) Sexually active: Yes Do you feel safe at home: Yes Do you feel safe in your relationship?: Yes History History 4 Para 1 Hx # Term Pregnancies Multiple births Hx # Pregnancies Ectopic pregnancies 1 AB induced 2 Hx Number of Living Children AB spontaneous Past Pregnancies Del. Date GA/Weeks # Preg Succ Route Wgt Sex Labor Lgth Anesth esia Location Prov Complic 10/08/13 37 No 3005.049 g Male [facility] Delivery Date: 10/08/13 Last Updated by: Vicky Manuel CNM IOL due to cardiomyopathy, FHR decellerations, emergency under epidural analgesia. Discharge Plan Disposition Patient Disposition: Home Condition: Stable Discharge Details Clinical Impression: Anxiety attack, Acute hypokalemia Primary Care Provider: Pietro Son ED Provider: Ervin Leung Home Meds and New Rx's Prescriptions: Continued metoprolol succinate 25 mg tablet extended release 24 hr 25 mg PO DAILY spironolactone 25 mg tablet 25 mg PO DAILY Patient Comments: TAKE ONE TABLET BY MOUTH EVERY DAY Entresto 24-26 mg tablet 1 tab PO BID Patient Comments: TAKE ONE TABLET BY MOUTH TWICE A DAY Discontinued Fish Oil 120-180 mg capsule 1 cap PO DAILY Hold Instructions: Pt Stopped/Never Started Alive Hair, Skin and Nails 1,250 mcg-50 mg -67.5 mg-15 mg tablet,chewable 1 tab PO DAILY Hold Instructions: Pt Stopped/Never Started ferrous sulfate [Iron (ferrous sulfate)] 325 mg (65 mg iron) Tablet 325 mg PO DAILY Hold Instructions: Pt Stopped/Never Started magnesium 250 mg Tablet 250 mg PO DAILY Hold Instructions: Pt Stopped/Never Started No Action (DME) Aerochamber MV Spacer See Rx Instructions .Route Qty: 1 0RF Rx Instructions: As directed Discharge Instructions Instructions: Hypokalemia (ED), Panic Attack (ED) Additional Instructions: Please contact your primary care physician to arrange follow-up. Return to the ER immediately for any worsening or new concerning symptoms. Referrals: Pietro Son [Primary Care Provider] -
[2023-04-08 15:38] LABS: Troponin I < 50 ng/L (< or =60)
--- NOTE | 2023-04-08 15:45 | RT.EKG_ITS ---
APPROVED REPORT Exam: Resting ECG Reason for Exam: palpitations Patient Location: E HR:65 bpm ECG Measurements Heart Rate 65 AXIS MS 147 P 40 QRSd 93 QRS 67 QT 417 T 36 QTc 434 Conclusion Sinus rhythm...normal P axis, V-rate 60- 99
== END 2023-04-08 16:30 | disposition home or self-care (01) ==
PROVIDERS: Emergency Provider Student in an Organized Health Care Education/Training Program; PCP Physician Assistant
DX: R07.9 Chest pain, unspecified (principal); E87.6 Hypokalemia; I42.9 Cardiomyopathy, unspecified; F41.9 Anxiety disorder, unspecified; Z87.891 Personal history of nicotine dependence
CPT/HCPCS: 36415; 80053; 93005; 96361; 96374; 99284; 83735; 84443; 84484; 85025; 85379; 93010; J2060

== ENCOUNTER 2023-04-13 15:00 | Outpatient (REF) | payer MEDICAID, SELFPAY ==
[2023-04-13 15:58] LABS: ESR 37 mm/hr (0-20)
[2023-04-13 15:59] LABS: HGB 13.3 g/dL (11.2-15.7); MCH 27.7 pg (27.0-33.0); MCHC 32.4 % (32.0-36.0); MCV 85 fL (80-95); MPV 11.4 fL (8.0-11.0); Platelet Count 316 10^3/uL (130-400); RBC 4.81 10^6/uL (3.93-5.22); RDW 13.4 % (11.7-14.6); RDW-SD 41.6 fL
[2023-04-13 16:46] LABS: ALT 19 U/L (14-59); AST 15 U/L (15-37); Albumin 3.7 g/dL (3.4-5.0); Alkaline Phosphatase 77 U/L (46-116); Anion Gap 9.8 mmol/L (3-11); BUN 8 mg/dL (7-18); Bilirubin, Total 0.3 mg/dL (0.2-1.0); C-Reactive Protein 0.96 mg/dL (0.0-0.3); CO2 25.2 mmol/L (21.0-32.0); CREATININE 0.7 mg/dL (0.55-1.02); Calcium 9.6 mg/dL (8.5-10.1); Chloride 103 mmol/L (98-107); Estimated GFR 122.25 (mL/min/1.73m2); Glucose 87 mg/dL (74-106); Potassium 4.5 mmol/L (3.5-5.1); Sodium 138 mmol/L (136-145); Total Protein 7.6 g/dL (6.4-8.2)
== END 2023-04-13 15:01 | disposition home or self-care (01) ==
LOC: NCHCN 15:00
PROVIDERS: PCP Physician Assistant; Visit Provider Physician Assistant
DX: R50.9 Fever, unspecified (principal); R70.0 Elevated erythrocyte sedimentation rate; R79.82 Elevated C-reactive protein (CRP)
CPT/HCPCS: 80053; 85027; 85652; 86140

== ENCOUNTER 2024-01-03 12:40 | Emergency (ER) | payer MEDICAID, SELFPAY ==
[2024-01-03] VITALS (12 sets, daily range): BP systolic 120; BP diastolic 80; PULSE 70–86; RESP 12–23; TEMP 36.2; O2SAT 98
--- NOTE | 2024-01-03 12:30 | RT.EKG_ITS ---
APPROVED REPORT Exam: Resting ECG Reason for Exam: palpitations Patient Location: E HR:95 bpm ECG Measurements Heart Rate 95 AXIS PA 147 P 49 QRSd 86 QRS 33 QT 364 T 11 QTc 458 Conclusion Sinus rhythm...normal P axis, V-rate 60- 99 Borderline T abnormalities, diffuse leads...T flat/neg
--- OUTSIDE RECORDS SUMMARY | 2024-01-03 13:08 | XMS_ITS | Encounter Summary ---
Author Organization [facility] Address [address] [place] [address] Care Team Providers Care Manager Strategic Name Role Phone Unknown, Provider Primary Care Provider [phone] Encounter Details Date Type Department Care Team (Late st Contact Info) Description 08/16/2020 Lab Requisition [facility] Pathology & Laboratory Medicine - [address] [id number] Outr Resulting Lab, Provider Social History Tobacco Use Types Packs/Day Years Used Date Smoking Tobacco: Every Day Cigarettes Smokeless Tobacco: Never Alcohol Use Standard Drinks/Week Comments Yes 0 (1 standard drink = 0.6 oz pur e alcohol) rare use PHQ-2 Answer Date Recorded PHQ-2 Score 0 10/15/2019 Interpersonal Safety Answer Date Record ed Physically Hurt Never 10/15/2019 Verbally Threaten Not on file 10/15/2019 Sex and Gender Information Value Date Recorded Sex Assigned at Not on file Gender Identity Not on file Sexual Orientation Not on file documented as of this encounter Functional Status Functional Status Response Date of Assess ment Because of a physical, menta l, or emotional condition, does this person have difficulty doing errands alone such as visiting a doctor's office or shopping? No 10/27/2017 Cognitive Status Response Date of Assessm ent Because of a physical, menta l, or emotional condition, does this person have serious difficulty concentrating, remembering, or making decisions? No 10/27/2017 documented as of this encounter Plan of Treatment Not on file documented as of this encounter Procedures Procedure Name Priority Date/Time Associated Diagnosis Comments CHLAMYDIA/N. GONORRHOEAE AMPLIFIED NUCLEIC ACID Routine 08/16/2020 10:20 EDT documented in this encounter Results * CHLAMYDIA/N. GONORRHOEAE AMPLIFIED RNA (08/16/2020 10:20 EDT) Neisseria gonorrhoeae Result Negative Negative 08/19/2020 14:52 EDT [facility] Chlamydia trachomatis Result Negative Negative 08/19/2020 14:52 EDT [facility] Swab ENTIRE ENDOCERVIX / Unknown 08/16/2020 10:20 EDT 08/16/2020 22:38 EDT Provider Outr Resulting Lab MICROBIOLOGY - GENERAL ORDERABLES Performing Organization Address City/State/[facility] Co de Phone Number [facility] [address] [place] [address] documented in this encounter Visit Diagnoses Not on filedocumented in this encounter Care Teams Manager Strategic Relationship Specialty Start Date End Date Unknown, Provider, PCP - General 12/31/18 documented as of this encounter
--- OUTSIDE RECORDS SUMMARY | 2024-01-03 13:08 | XMS_ITS | Encounter Summary ---
Author Organization [facility] Address [address] [place] [address] Care Team Providers Care Drill Press Tender Name Role Phone Unknown, Provider Primary Care Provider [phone] Encounter Details Date Type Department Care Team (Late st Contact Info) Description 04/23/2021 Lab Requisition [facility] Pathology & Laboratory Medicine - [address] [id number] Outr Resulting Lab, Provider Social History Tobacco [...] Procedure Name Priority Date/Time Associated Diagnosis Comments ZZCOVID-19 TEST [facility] PCR Today 04/23/2021 6:08 EST COVID-19 TESTING Routine 04/23/2021 6:08 EST documented in this encounter Results * COVID-19 TEST [facility] PCR (04/23/2021 6:08 EST) Swab 04/23/2021 6:08 EST 04/23/2021 20:20 EST Provider Outr Resulting Lab MICROBIOLOGY - GENERAL ORDERABLES Performing Organization Address [facility] Co de Phone Number [facility] [address] [place] [address] * COVID-19 TESTING (04/23/2021 6:08 EST) COVID-19 rt-PCR Result Negative Negative 04/24/2021 13:01 EST [facility] Comment: This test has not been FDA cleared or approved. This test has been authorized by FDA under an EUA for use by authorized laboratories. This test has been authorized only for detection of nucleic acid from 2019-nCoV, not for any other viruses or pathogens. This test is only authorized for the duration of the declaration that circumstances exist justifying the authorization of emergency use of in vitro diagnostic tests for detection and/or diagnosis of 2019-nCoV under section 564(b)(1) of Act, 21 U.S.C ?? 360bbb-3(b) (1), unless the authorization is terminated or revoked sooner. Negative results do not preclude 2019-nCoV infection and should not be used as the sole basis for treatment or other patient management decisions. Negative results must be combined with clinical observations, patient history, and epidemiological information. Testing was performed using the chong SARS-CoV-2 assay ([employer] on the Chong 6800 System Performing Lab Chong [address] [facility] 04/24/2021 13:01 EST [facility] Swab 04/23/2021 6:08 EST 04/23/2021 20:20 EST Provider Outr Resulting Lab MICROBIOLOGY - GENERAL ORDERABLES Performing Organization Address [facility]/ZIP Co de Phone Number [facility] [address] [place] [address] documented in this encounter Visit Diagnoses Not on filedocumented in this encounter Care Teams Drill Press Tender Relationship Specialty Start Date End Date Unknown, Provider, PCP - General 12/31/18 documented as of this encounter
--- OUTSIDE RECORDS SUMMARY | 2024-01-03 13:08 | XMS_ITS | Encounter Summary ---
Author Organization [facility] Address [address] [place] [address] Care Team Providers Care Architectural Administrative Assistant Name Role Phone Unknown, Provider Primary Care Provider [phone] Reason for Visit * Reason Onset Date Comments Medications Refill 02/24/2019 Encounter Details Date Type Department Care Team (Late st Contact Info) Description 02/24/[address] [place] [id number] Unknown, Provider, Medications Refill Social History Tobacco Use Types Packs/Day Years Used Date Smoking Tobacco: Every Day Cigarettes Smokeless Tobacco: Never Alcohol Use Standard Drinks/Week Comments Yes 0 (1 standard drink = 0.6 oz pur e alcohol) rare use Sex and Gender Information Value Date Recorded [...] No 10/27/2017 documented as of this encounter Miscellaneous Notes * Telephone Encounter - Heaven Bah, WILLOW - 02/24/2019 6284 EST Outgoing call to [facility], facilitated transfer of medication. Pt notified. * Telephone Encounter - Luther Garber - 02/24/2019 1512 EST Pt called in prior to the last note, unable to track at the time. Pt was stating that she couldn't get her meds transferred to [facility]. * Telephone Encounter - Tianna Hicks - 02/24/2019 1406 EST Call to patient. Patient confirmed she just need to transfer refills to new pharmacy. Advised that if she calls her pharmacy, they can facilitate the transfer. Patient agreed to plan and verbalized understanding with no barriers. * Telephone Encounter - Luther Garber - 02/24/2019 1344 EST Medication(s) Requested: ZOLOFT Preferred Pharmacy: [facility], [place] Last refill date: 01/11/2019 Last appointment with PCP: Is patient out of medication? 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
--- OUTSIDE RECORDS SUMMARY | 2024-01-03 13:08 | XMS_ITS | Encounter Summary ---
Author Organization [facility] Address [address] [place] [address] Care Team Providers Care French Pastry Cook Name Role Phone Unknown, Provider Primary Care Provider Encounter Details Date Type Department Care Team (Late st Contact Info) Description 05/20/2022 Lab Requisition [facility] Pathology & Laboratory Medicine - [address] [phone] Outr Resulting Lab, Provider Social History Tobacco [...] Procedure Name Priority Date/Time Associated Diagnosis Comments FECAL BACTERIAL PATHOGENS BY PCR Routine 05/20/2022 4:22 EST GIARDIA AND CRYPTOSPORIDIUM ANTIGENS Routine 05/20/2022 4:22 EST OVA/PARASITE EXAM Routine 05/20/2022 4:2 2 EST documented in this encounter Results * GIARDIA AND CRYPTOSPORIDIUM ANTIGENS (05/20/2022 4:22 EST) Giardia and Cryptosporidium Cryptosporidium Antigen Neg and Giardia Antigen Neg Cryptosporidium Antigen Neg and Giardia Antigen Neg 10:57 EST [facility] Feces SPECIMEN FROM RECTUM / Unknown 05/20/2022 4:22 EST 05/20/2022 17:30 EST Provider Outr Resulting Lab MICROBIOLOGY - GENERAL ORDERABLES Performing Organization Address City/[facility] Co de Phone Number [facility] [address] [place] [address] * FECAL BACTERIAL PATHOGENS BY PCR (05/20/2022 4:22 EST) Salmonella PCR Negative Negative 05/21/2022 11:06 EST [facility] Shigella/Enteroin vasive E. coli Negative Negative 05/21/2022 11:06 EST [facility] HN LAB CAMPYLOBACTER PCR Negative Negative 05/21/2022 11:06 EST [facility] Shiga Toxin PCR Negative Negative 11:06 EST [facility] Feces SPECIMEN FROM RECTUM / Unknown 05/20/2022 4:22 EST 05/20/2022 17:30 EST Provider Outr Resulting Lab MICROBIOLOGY - GENERAL ORDERABLES Performing Organization Address City/[facility]/ZIP Co de Phone Number [facility] [address] [place] [address] * OVA/PARASITE EXAM (05/20/2022 4:22 EST) Parasite No ova and parasites seen. 05/21/2022 11:20 EST [facility] Feces SPECIMEN FROM RECTUM / Unknown 05/20/2022 4:22 EST 05/20/2022 17:30 EST Narrative [facility] - 05/21/2022 11:20 EST (If Cryptosporidium, Cyclospora, or Microsporidium are suspected, specific tests must be requested.) Single negative specimen does not rule out the possibility of a parasitic infection. Provider Outr Resulting Lab MICROBIOLOGY - GENERAL ORDERABLES Performing Organization Address City/State/[facility] Co de Phone Number [facility] [address] [place] [phone] documented in this encounter Visit Diagnoses Not on filedocumented in this encounter Care Teams French Pastry Cook Relationship Specialty Start Date End Date Unknown, Provider, PCP - General 12/31/18 documented as of this encounter
--- OUTSIDE RECORDS SUMMARY | 2024-01-03 13:08 | XMS_ITS | Referral Summary ---
Author Organization [facility] Address [address] [place] [address] Care Team Providers Care Organ Grinder Name Role Phone Unknown, Provider MD Primary Care Provider Allergies No known active allergies Medications Medication Sig Dispensed Refills Start Date End Date Status sertraline (ZOLOFT) 25 mg tabletIndications:Mixed anxiety depressive disorder Take 1 Tab by mouth daily. 30 Tab 3 01/11/2019 Active Active Problems Problem Noted Date Diagnosed Date PTSD (post-traumatic stress disorder) 06/27/2018 Mixed anxiety depressive disorder 06/27/2018 Umbilical hernia without obstruction and without gangrene 05/24/2018 Sinus tachycardia 06/25/2017 Cardiomyopathy (HCC-CMS) 06/25/2017 Resolved Problems Problem Noted Date Diagnosed Date Resolved Date High risk teen 06/25/2017 Immunizations Name Administration Dates Next Due Hepatitis B Vaccine Ped/Adol escent 3-dose IM 06/22/1997,1996,1996 Hib PRP-T Conjugate Vaccine 4 Dose IM ,10/15/1997,1996,09/20 Historical DTaP Vaccine, Unspecified ,10/15/1997,06/22/1997,11/02,1996 Human Papillomavirus (HPV9) 9-Valent Vaccine (GARDASIL-9) IM 07/23/2011,05/12/2011 Influenza (split) 04/07/2006 Influenza Vaccine Quad (AFLU JOSE ANTONIO) PF 0.5 ml IM (3 yrs+) 01/31/2018 MMR Vaccine SQ 07/26/2001,10/15/1997 Poliovirus Vaccine IPV IM OR SQ 02,10/15/1997,06/22/1997,11/02,1996 Tdap Vaccine =>7YO IM 02/17/2011 Varicella (Chickenpox) vacci ne (VARIVAX) SQ 02/17/2011,10/15/1997 Social History Tobacco Use Types Packs/Day Years Used Date Smoking Tobacco: Every Day Cigarettes Smokeless Tobacco: Never Tobacco Cessation:Counseling Given: Yes Alcohol Use Standard Drinks/Week Comments Yes 0 [...] on file Sexual Orientation Not on file Last Filed Vital Signs Vital Sign Reading Time Taken Comments Blood Pressure 95/66 12/31/2018 1957 EDT Pulse 92 12/20/2018 165 EDT Temperature 36.8 ??C (98.2 ??F) 12/31/2018 170 EDT Respiratory Rate 16 12/31/20181708 EDT Oxygen Saturation 100% 12/31/20182000 EDT Inhaled Oxygen Concentration - - Weight 74.8 kg (165 lb) 12/31/20181708 EDT Height 177.8 cm (5' 10) 12/31/2018 170 EDT Body Mass Index 23.68 12/31/2018 170 EDT Functional Status Functional Status Response Date of [...] concentrating, remembering, or making decisions? No 10/27/2017 Plan of Treatment Not on file Procedures Procedure Name Priority Date/Time Associated Diagnosis Comments HEPATITIS C AB W REFLEX TO HCV RNA BY PCR Routine 08/16/2020 11:07 EDT HIV 1/2 ANTIGEN AND ANTIBODY, 4TH GENERATION Routine 08/16/2020 11:07 EDT PAP TEST Today 08/16/2020 10:20 EDT Encounter for other general examination CHLAMYDIA/N. GONORRHOEAE AMPLIFIED NUCLEIC ACID Routine 08/16/2020 10:20 EDT from Last 3 Months or Most Recently Relevant to Health Maintenance Results * HEPATITIS C AB W REFLEX TO HCV RNA BY PCR (08/16/2020 11:07 EDT) Hep C Antibody Negative Negative 08/19/2020 10:55 EDT [facility] Blood VENOUS BLOOD / Unknown 08/16/2020 11:07 EDT 08/16/2020 15:49 EDT Provider Outr Resulting Lab CHEMISTRY & BLOOD GAS ORDERABLES Performing Organization Address [facility] Co de Phone Number [facility] [address] [place] [address] * HIV 1/2 ANTIGEN AND ANTIBODY, 4TH GENERATION (08/16/2020 11:07 EDT) HIV 1 and 2 Antibody/p24 Antigen, 4th Generation Negative Negative 08/19/2020 10:21 EDT [facility] Comment: If acute HIV-1 infection is suspected in a high risk ??patient, submit plasma specimen for HIV-1 RNA quantitation test. Fourth Generation assay performed on the Siemens Centaur. Blood VENOUS BLOOD / Unknown 08/16/2020 11:07 EDT 08/16/2020 15:50 EDT Provider Outr Resulting Lab IMMUNOLOGY A ND SEROLOGY ORDERABLES Performing Organization Address City/[facility]/ZIP Co de Phone Number [facility] [address] [place] [address] * PAP TEST (08/16/2020 10:20 EDT) Specimens A. Cervix and/or Endocervix , ThinPrep Imaging System with Manual Evaluation 08/29/2020 10:20 EDT [facility] Specimen Adequacy Satisfactory for Evaluation - transformation zone component present 08/29/2020 10:20 EDT [facility] General Categorization Negative for intraepithelial lesion or malignancy 08/29/2020 10:20 EDT [facility] Attestation . 08/29/2020 10:20 EDT [facility] at 1020 Clinical History See below 08/30/19 10:20 EDT [facility] Performing Lab [facility] 08/29/2020 10:20 EDT [facility] Scanned Images 08/29/2020 10:20 EDT [facility] Papanicolaou smear specimen (specimen) CERVIX UTERI STRUCTURE / Unknown 08/16/2020 10:20 EDT 08/19/2020 13:33 EDT Vicky Manuel [facility] ORDE SAUL [facility] [address] [place] [address] * CHLAMYDIA/N. GONORRHOEAE AMPLIFIED RNA (08/16/2020 10:20 EDT) Neisseria gonorrhoeae Result Negative Negative 08/19/2020 14:52 EDT [facility] Chlamydia trachomatis Result Negative Negative 08/19/2020 14:52 EDT [facility] Swab ENTIRE ENDOCERVIX / Unknown 08/16/2020 10:20 EDT 08/16/2020 22:38 EDT Provider Outr Resulting Lab MICROBIOLOGY - GENERAL ORDERABLES [facility] [address] [place] [address] from Last 3 Months or Most Recently Relevant to Health Maintenance Advance Directives For more information, please contact: [phone] Documents on File Type Date Recorded Patient Program Director Group Work Expl anation Advance Directive 11/11/2017 7:44 Appointm ent Of A Health Care Agent signed 2017-09-26 Care Teams Organ Grinder Relationship Specialty Start Date End Date Unknown, Provider, PCP - General 12/31/18
--- OUTSIDE RECORDS SUMMARY | 2024-01-03 13:08 | XMS_ITS | Clinical Summary ---
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 CHF (congestive heart failure) ([facility]) Migraines High risk teen 06/25/2017 Hypertension Family History Medical History Relation Comments Drug Abuse Brother 1 Mental Illness Brother 1 Anxiety Disorder Brother 2 Mental Illness Father Mental Illness Mother bipolar Relation Status Comments Brother 1 Alive Brother 2 Alive Father Alive Mother Alive Sister Alive Social History Tobacco Use Types Packs/Day Years [...] on file Sexual Orientation Not on file Obstetrics History Last Filed Vital Signs Vital Sign Reading Time Taken Comments Blood Pressure 95/66 12/31/2018 1957 EDT Pulse 92 12/20/2018 1652 EDT Temperature 36.8 ??C (98.2 ??F) 12/31/2018 1709 EDT Respiratory Rate 16 12/31/2018 1709 EDT Oxygen Saturation 100% 12/31/20182000 EDT Inhaled Oxygen Concentration - - Weight 74.8 kg (165 lb) 12/31/2018 170 EDT Height 177.8 cm (5' 10) 12/31/2018 170 EDT Body Mass Index 23.68 12/31/2018 1709 EDT Plan of Treatment Health Maintenance Due Date Last Done Comments Social Determinants Of Healt h (SDOH) 1996 Pneumococcal Immunization (1 of 2 - PCV) 2002 Depression Screening 2019 06/27/2018, 06/27/2018, 10/27/2017, Additional history exists Preventive Care Visit 10/28/2019 10/27/2017 Tetanus (Adult) Immunization 02/17/2021 02/17/2011 COVID-19 Vaccine (2 4 season) 2022 Cervical Cancer Screening 08/17/2023 Pap Smear (Cervical Cancer Screening) 08/17/2023 08/16/2020 Influenza Immunization (Adul t) (#1) 2023 01/31/2018, 04/07/2006 Hepatitis B Vaccine Completed 06/22/1997, 1996, 1996 Pertussis (Adult) Immunization Completed 02/17/2011 HPV Vaccines Discontinued 07/23/2011, 05/12/2011 Chlamydia Screening Discontinued 08/16/2020, 07/11/2020, 02/02/2019, Additional history exists HIV Screening Completed 08/16/2020 Hepatitis C Screen Completed 08/16/2020 Procedures Procedure Name Priority Date/Time Associated Diagnosis [...] Antibody Negative Negative 08/19/2020 10:55 EDT [facility] Blood VENOUS BLOOD / Unknown 08/16/2020 11:07 EDT 08/16/2020 15:49 EDT Provider Outr Resulting Lab CHEMISTRY & BLOOD GAS ORDERABLES [facility] [address] [place] [address] * HIV 1/2 ANTIGEN AND ANTIBODY, 4TH GENERATION (08/16/2020 11:07 EDT) HIV 1 and 2 Antibody/p24 Antigen, 4th Generation Negative Negative 08/19/2020 10:21 EDT [facility] Comment: If acute HIV-1 infection is suspected in a high risk ??patient, submit plasma specimen for HIV-1 RNA quantitation test. Fourth Generation assay performed on the Siemens Centaur. Blood VENOUS BLOOD / Unknown 08/16/2020 11:07 EDT 08/16/2020 15:50 EDT Provider Outr Resulting Lab IMMUNOLOGY A ND SEROLOGY ORDERABLES [facility] [address] [place] [address] * PAP TEST (08/16/2020 10:20 EDT) Specimens A. Cervix and/or Endocervix , ThinPrep Imaging System with Manual Evaluation 08/29/2020 10:20 EDT [facility] Specimen Adequacy Satisfactory for Evaluation - transformation zone component present 08/29/2020 10:20 EDT [facility] General Categorization Negative for intraepithelial lesion or malignancy 08/29/2020 10:20 EDT [facility] Attestation . 08/29/2020 10:20 [facility] at 1020 Clinical History See below 08/30/19 21 10:20 EDT [facility] Performing Lab [facility] 08/29/2020 10:20 T [facility] Scanned Images 08/29/2020 10:20 EDT [facility] Papanicolaou smear specimen (specimen) CERVIX UTERI STRUCTURE / Unknown 08/16/2020 10:20 EDT 08/19/2020 13:33 EDT Vicky Manuel [facility] ORDE SAUL [facility] [address] [place] [address] * CHLAMYDIA/N. GONORRHOEAE AMPLIFIED RNA (08/16/2020 10:20 EDT) Neisseria gonorrhoeae Result Negative Negative 08/19/2020 14:52 EDT [facility] Chlamydia trachomatis Result Negative Negative 08/19/2020 14:52 EDT [facility] Swab ENTIRE ENDOCERVIX / Unknown 08/16/2020 10:20 EDT 08/16/2020 22:38 EDT Provider Outr Resulting Lab MICROBIOLOGY - GENERAL ORDERABLES [facility] [address] [place] [address] from Last 3 Months or Most Recently Relevant to Health Maintenance Advance Directives For more information, please contact: [phone] Documents on File Type Date Recorded Patient Ramp Lead Expl anation Advance Directive 11/11/2017 7:44 Appointm ent Of A Health Care Agent signed 2017-09-26 Care Teams Computer Support Specialist Instructor Relationship Specialty Start Date End Date Unknown, Provider, PCP - General 12/31/18
--- OUTSIDE RECORDS SUMMARY | 2024-01-03 13:08 | XMS_ITS | Encounter Summary ---
Author Organization [facility] Address [address] [place] [address] Care Team Providers Care Certified Technician Name Role Phone Unknown, Provider Primary Care Provider [phone] Encounter Details Date Type Department Care Team (Late st Contact Info) Description 02/02/2019 Lab Requisition [facility] Pathology & Laboratory Medicine - [address] [address] Unknown, Provider, Social History Tobacco Use Types Packs/Day Years [...] documented as of this encounter Visit Diagnoses Not on filedocumented in this encounter Care Teams Certified Technician Relationship Specialty Start Date End Date Unknown, ProviderMD PCP - General 12/31/18 documented as of this encounter
--- OUTSIDE RECORDS SUMMARY | 2024-01-03 13:08 | XMS_ITS | Encounter Summary ---
Author Organization [facility] Address [address] [place] [address] Care Team Providers Care Blood Coordinator Name Role Phone Unknown, Provider Primary Care Provider Encounter Details Date Type Department Care Team (Late st Contact Info) Description 08/19/2020 Lab Requisition [facility] Pathology & Laboratory Medicine - [address] [address] [id number] Encounter for other general examination Social History Tobacco Use Types Packs/Day Years [...] Procedure Name Priority Date/Time Associated Diagnosis Comments PAP TEST Today 08/16/2020 10:20 EDT Encounter for other general examination documented in this encounter Results * PAP TEST (08/16/2020 10:20 EDT) Specimens A. Cervix and/or Endocervix , ThinPrep Imaging System with Manual Evaluation 08/29/2020 10:[address] [facility] Specimen Adequacy Satisfactory for Evaluation - transformation zone component present 08/29/2020 10:[address] [facility] General Categorization Negative for intraepithelial lesion or malignancy 08/29/2020 10:[address] [facility] Attestation . 08/29/2020 10:[address] [facility] at 1020 Clinical History See below 08/30/19 10:[address] [facility] Performing Lab [facility] 08/29/2020 10:[address] [facility] Scanned Images 08/29/2020 10:[address] [facility] Papanicolaou smear specimen (specimen) CERVIX UTERI STRUCTURE / Unknown 08/16/2020 10:20 EDT 08/19/2020 13:33 EDT Vicky Manuel [facility] [address] [place] [address] documented in this encounter Visit Diagnoses Diagnosis Encounter for other general examination documented in this encounter Care Teams Blood Coordinator Relationship Specialty Start Date End Date Unknown, Provider, PCP - General 12/31/18 documented as of this encounter
--- OUTSIDE RECORDS SUMMARY | 2024-01-03 13:08 | XMS_ITS | Encounter Summary ---
Author Organization [facility] Address [address] [place] [address] Care Team Providers Care Grades 7 And 8 Visiting Teacher Name Role Phone Unknown, Provider Primary Care Provider Encounter Details Date Type Department Care Team (Late st Contact Info) Description 08/16/2020 Lab Requisition [facility] Pathology & Laboratory Medicine - [address] [phone] Outr Resulting Lab, Provider Social History Tobacco [...] Procedure Name Priority Date/Time Associated Diagnosis Comments RUBELLA IGG ANTIBODY Routine 08/16/2020 11:07 EDT VARICELLA IGG ANTIBODY Routine 08/16/2020 11:07 EDT documented in this encounter Results * VARICELLA IGG ANTIBODY (08/16/2020 11:07 EDT) Varicella IgG Ab Negative See Note 08/19/2020 11:[address] [facility] Comment:Absence of detectabl e Varicella Zoster virus IgG antibodies. A negative result generally indicates no detectable antibody, but does not rule out acute infection. If VZV exposure is suspected, a second sample should be collected and tested no less than one or two weeks later. Blood VENOUS BLOOD / Unknown 08/16/2020 11:07 EDT 08/16/2020 15:50 EDT Provider Outr Resulting Lab IMMUNOLOGY A ND SEROLOGY ORDERABLES Performing Organization Address [facility] Co de Phone Number [facility] [address] [place] [address] * RUBELLA IGG ANTIBODY (08/16/2020 11:07 EDT) Rubella IgG Ab Positive See Note 08/19/2020 11:[address] [facility] Comment:Positive for IgG ant ibodies to Rubella virus. Blood VENOUS BLOOD / Unknown 08/16/2020 11:07 EDT 08/16/2020 15:50 EDT Provider Outr Resulting Lab CHEMISTRY & BLOOD GAS ORDERABLES Performing Organization Address City/[facility] Co de Phone Number [facility] [address] [place] [address] documented in this encounter Visit Diagnoses Not on filedocumented in this encounter Care Teams Grades 7 And 8 Visiting Teacher Relationship Specialty Start Date End Date Unknown, Provider, PCP - General 12/31/18 documented as of this encounter
--- OUTSIDE RECORDS SUMMARY | 2024-01-03 13:08 | XMS_ITS | Encounter Summary ---
Author Organization [facility] Address [address] [place] [address] Care Team Providers Care Automation Technologist Name Role Phone Unknown, Provider Primary Care Provider [phone] Encounter Details Date Type Department Care Team (Late st Contact Info) Description 02/02/2019 Lab Requisition [facility] Pathology & Laboratory Medicine - [address] [phone] Anusha Alvarez PA-C [address] [place] [phone] Encounter for other general examination Social History [...] as of this encounter Visit Diagnoses Diagnosis Encounter for other general examination documented in this encounter Care Teams Automation Technologist Relationship Specialty Start Date End Date Unknown, Provider, PCP - General 12/31/18 documented as of this encounter
--- OUTSIDE RECORDS SUMMARY | 2024-01-03 13:08 | XMS_ITS | Encounter Summary ---
Author Organization [facility] Address [address] [place] [address] Care Team Providers Care Paper Folding Machine Operator Name Role Phone Unknown, Provider Primary Care Provider [phone] Encounter Details Date Type Department Care Team (Late st Contact Info) Description 02/03/2019 Lab Requisition [facility] Pathology & Laboratory Medicine - [address] [address] Unknown, Provider, Social History Tobacco Use Types [...] Comments CHLAMYDIA/N. GONORRHOEAE AMPLIFIED NUCLEIC ACID Routine 02/02/2019 15:26 EST documented in this encounter Results * (ABNORMAL) CHLAMYDIA/N. GONORRHOEAE AMPLIFIED RNA (02/02/2019 15:26 EST) Neisseria gonorrhoeae Result Negative Negative 02/06/2019 13:51 EST [facility] Chlamydia trachomatis Result Positive(A) Negative 02/06/2019 13:51 EST [facility] Swab SPECIMEN FROM UTERINE CERVIX / Unknown 02/02/2019 15:26 EST 02/03/2019 18:50 EST Provider Unknown MICROBIOLOGY - GENER AL ORDERABLES [facility] [address] [place] [address] documented in this encounter Visit Diagnoses Not on filedocumented in this encounter Care Teams Paper Folding Machine Operator Relationship Specialty Start Date End Date Unknown, Provider, PCP - General 12/31/18 documented as of this encounter
--- OUTSIDE RECORDS SUMMARY | 2024-01-03 13:08 | XMS_ITS | Encounter Summary ---
Author Organization [facility] Address [address] [place] [address] Care Team Providers Care Director Cloud Transformation Name Role Phone Unknown, Provider Primary Care Provider Encounter Details Date Type Department Care Team (Late st Contact Info) Description 08/16/2020 Lab Requisition [facility] Pathology & Laboratory Medicine - [address] [phone] Outr Resulting Lab, Provider Social History Tobacco [...] Procedure Name Priority Date/Time Associated Diagnosis Comments HIV 1/2 ANTIGEN AND ANTIBODY, 4TH GENERATION Routine 08/16/2020 11:07 EDT documented in this encounter Results * HIV 1/2 ANTIGEN AND ANTIBODY, 4TH GENERATION (08/16/2020 11:07 EDT) HIV 1 and 2 Antibody/p24 Antigen, 4th Generation Negative Negative 08/19/2020 10:21 EDT [facility] Comment: If acute HIV-1 infection is suspected in a high risk ??patient, submit plasma specimen for HIV-1 RNA quantitation test. Fourth Generation assay performed on the Siemens Actixaur. Blood VENOUS BLOOD / Unknown 08/16/2020 11:07 EDT 08/16/2020 15:50 EDT Provider Outr Resulting Lab IMMUNOLOGY A ND SEROLOGY ORDERABLES Performing Organization Address City/State/[facility] Co de Phone Number [facility] [address] [place] [address] documented in this encounter Visit Diagnoses Not on filedocumented in this encounter Care Teams Director Cloud Transformation Relationship Specialty Start Date End Date Unknown, Provider, PCP - General 12/31/18 documented as of this encounter
--- OUTSIDE RECORDS SUMMARY | 2024-01-03 13:08 | XMS_ITS | Encounter Summary ---
Author Organization [facility] Address [address] [place] [address] Care Team Providers Care Photo Mask Pattern Generator Name Role Phone Unknown, Provider Primary Care Provider Encounter Details Date Type Department Care Team (Late st Contact Info) Description 07/11/2020 Lab Requisition [facility] Pathology & Laboratory Medicine - [address] [id number] Outr Resulting Lab, Provider Social History Tobacco [...] Comments CHLAMYDIA/N. GONORRHOEAE AMPLIFIED NUCLEIC ACID Routine 07/11/2020 10:00 EDT documented in this encounter Results * CHLAMYDIA/N. GONORRHOEAE AMPLIFIED RNA (07/11/2020 10:00 EDT) Neisseria gonorrhoeae Result Negative Negative 07/12/2020 14:50 EDT [facility] Chlamydia trachomatis Result Negative Negative 07/12/2020 14:50 EDT [facility] Swab ENTIRE WALL OF CERVIX / Unknown 07/11/2020 10:00 EDT 07/11/2020 22:27 EDT Provider Outr Resulting Lab MICROBIOLOGY - GENERAL ORDERABLES Performing Organization Address City/State/[facility] Co de Phone Number [facility] [address] [place] [address] documented in this encounter Visit Diagnoses Not on filedocumented in this encounter Care Teams Photo Mask Pattern Generator Relationship Specialty Start Date End Date Unknown, Provider, PCP - General 12/31/18 documented as of this encounter
--- OUTSIDE RECORDS SUMMARY | 2024-01-03 13:08 | XMS_ITS | Encounter Summary ---
Author Organization [facility] Address [address] [place] [address] Care Team Providers Care Mirror Maker Name Role Phone Unknown, Provider Primary Care Provider [phone] Reason for Referral * Referral (Routine/Next Available) - Authorization Not Required Specialty Diagnoses / Procedures Referred By Contac t Referred To Contact Cardiology Diagnoses Cardiomyopathy, unspecified type ([facility]) Chad Middleton MD [address] [place] [phone] [facility] Cardiology [address] [place] [address] [place] [address] Referral ID Status Reason Start Date Expiration Date Visits Requested Visits Authorized [id number] Authorization Not Required Specialty Services Required 01/11/20 19 1 1 Question Answer Reason for Request: cardiomyopathy, Reason for Visit * Reason Onset Date Comments Advice Only 01/09/2019 Encounter Details Date Type Department Care Team ([facility] st Contact Info) Description 01/09/2019 Telephone [facility] Pediatric Cardiology - Main [address] [address] Chad Middleton MD [address] [place] [phone] Advice Only Social History Tobacco Use Types Packs/Day Years [...] encounter Miscellaneous Notes * Telephone Encounter - Kathy Sanchez RN - 01/09/2019 1519 EDT Message routed to Dr. Middleton. (Last note from 12/22/2007) 01/10: Discussed with Dr. Middleton, referral placed to adult cardiology. Called Mary and gave # tocall to schedule. Referral order routed to cardiology scheduling pool. * Telephone Encounter - Jessica Tang - 01/09/2019 1504 EDT Is Is it safe to have another baby? (Already has one) documented in this encounter Plan of Treatment Scheduled Referrals Name Type Priority Associated Diagnoses Orde r Schedule AMB CONS/FOLLOW UP CARDIOLOGY Outpatient Referral Routine Cardiomyopathy, unspecified type (HCC-CMS) Ordered: 01/10/2019 documented as of this encounter Visit Diagnoses Diagnosis Cardiomyopathy, unspecified type (HCC-CMS)- Primary documented in this encounter Care Teams Mirror Maker Relationship Specialty Start Date End Date Unknown, Provider, PCP - General 12/31/18 documented as of this encounter
--- OUTSIDE RECORDS SUMMARY | 2024-01-03 13:08 | XMS_ITS | Encounter Summary ---
Author Organization [facility] Address [address] [place] [address] Care Team Providers Care Nutritionist Public Health Name Role Phone Unknown, Provider Primary Care Provider [phone] Reason for Visit * Reason Onset Date Comments Community Health Team 01/11/2019 relocation to [place]; out of [facility] Encounter Details Date Type Department Care Team ([facility] Contact Info) Description 01/11/[address] [place] [id number] Erma Becerra Community Health Team (relocation to [place]; out of [facility]) Social History Tobacco Use Types Packs/Day Years [...] No 10/27/2017 documented as of this encounter Ordered Prescriptions Prescription Sig Dispensed Refills Start Date End Da te sertraline (ZOLOFT) 25 mg tabletIndications:Mixed anxiety depressive disorder Take 1 Tab by mouth daily. 30 Tab 3 01/11/2019 documented in this encounter Miscellaneous Notes * Telephone Encounter - Seth Gay - 01/12/2019 0838 EDT Called pt advising * Telephone Encounter - Chela Crook Aprn - 01/11/2019 1724 EDT Med renewed to get her to April. Please let her know. * Telephone Encounter - Erma Becerra - 01/11/2019 1422 EDT CHT referral to check in with patient regarding appropriate supports following her move to [place]. I called and spoke to patient. She has a new provider but does not have an appointment until early April. Patient is also looking for a therapist. I gave her information about finding a therapist using psychology today website. Patient states she will give this a try. Patient is working 6 days/week. She only has Sundays off. [facility]. Patient has been out of Zoloft for about 2 months. She got a 2 week supply from ED and made that last as long as she could. She asked new provider office if they could help with prescription and theysaid no, so she wonders if Chela can help get her through until April. I let her know I would pass on request to Chela. I gave her my contact information so she can be in touch with any further questions or concerns. documented in this encounter Plan of Treatment Not on file documented as of this encounter Visit Diagnoses Diagnosis Mixed anxiety depressive disorder- Primary Dysthymic disorder documented in this encounter Discontinued Medications Medication Sig Discontinue Reason Start Date End Da te sertraline (ZOLOFT) 25 mg tablet Take 25 mg by mouth daily. Reorder 01/11/2019 documented as of this encounter Care Teams Nutritionist Public Health Relationship Specialty Start Date End Date Unknown, Provider, PCP - General 12/31/18 documented as of this encounter
--- OUTSIDE RECORDS SUMMARY | 2024-01-03 13:08 | XMS_ITS | Encounter Summary ---
Author Organization [facility] Address [address] [place] [address] Care Team Providers Care System Support Administrator Name Role Phone Unknown, Provider Primary Care Provider Encounter Details Date Type Department Care Team (Late st Contact Info) Description 08/16/2020 Lab Requisition [facility] Pathology & Laboratory Medicine - [address] [phone] Outr Resulting Lab, Provider Social History Tobacco [...] RNA BY PCR Routine 08/16/2020 11:07 EDT HEPATITIS B SURFACE ANTIGEN Routine 08/16/2020 11:07 EDT documented in this encounter Results * HEPATITIS B SURFACE ANTIGEN (08/16/2020 11:07 EDT) Hep B Surface Ag Negative Negative 08/19/2020 10:38 EDT [facility] Blood VENOUS BLOOD / Unknown 08/16/2020 11:07 EDT 08/16/2020 15:49 EDT Provider Outr Resulting Lab CHEMISTRY & BLOOD GAS ORDERABLES Performing Organization Address City/[facility]/ZIP Co de Phone Number [facility] [address] [place] [address] * HEPATITIS C AB W REFLEX TO HCV RNA BY PCR (08/16/2020 11:07 EDT) Hep C Antibody Negative Negative 08/19/2020 10:55 EDT [facility] Blood VENOUS BLOOD / Unknown 08/16/2020 11:07 EDT 08/16/2020 15:49 EDT Provider Outr Resulting Lab CHEMISTRY & BLOOD GAS ORDERABLES [facility] [address] [place] [address] documented in this encounter Visit Diagnoses Not on filedocumented in this encounter Care Teams System Support Administrator Relationship Specialty Start Date End Date Unknown, Provider, PCP - General 12/31/18 documented as of this encounter
--- OUTSIDE RECORDS SUMMARY | 2024-01-03 13:09 | XMS_ITS | Encounter Summary ---
Author Organization [facility] Address [address] [place] [address] Care Team Providers Care Precision Instrument Maker Name Role Phone Chela Crook NP Primary Care Provider [phone] Reason for Visit * Reason Comments Emesis hx CHF (admitted in Apr--not at [facility]; was admitted at [facility]). Now with vomiting x 3 weeks and feels like the symptoms are coming back. Unable to keep any foods down. Has not seen her PMD. Appears in no distress. Very emotional and tearful. C/O abd. Pain across her entire abd. with buring. Encounter Details Date Type Department Care Team (Late st Contact Info) Description 09/15/2018 15:16 EDT - 09/15/2018 16:57 EDT Emergency [facility] Emergency Department - Main [place] [address] [place], [place] [id number] Vicky Reyna PA-C [address] [place] [phone] Emergency, MD [facility] Non-intractable vomiting with nausea, unspecified vomiting type (Primary Dx) Discharge Disposition: Left Against Medical Advice Social History Tobacco Use Types Packs/Day Years Used Date Smoking Tobacco: Never Smokeless Tobacco: Never Alcohol Use Standard Drinks/Week Comments Yes 0 (1 standard drink = 0.6 oz pur e alcohol) rare use Sex and Gender Information Value Date Recorded Sex Assigned at Not on file Gender Identity Not on file Sexual Orientation Not on file documented as of this encounter Last Filed Vital Signs Vital Sign Reading Time Taken Comments Blood Pressure 131/87 09/15/2018 1520 EDT Pulse 106 09/15/2018 1520 EDT Temperature 36.5 ??C (97.7 ??F) 09/15/2018 1520 EDT Respiratory Rate 12 09/15/2018 1520 EDT Oxygen Saturation 100% 09/15/2018 1520 EDT Inhaled Oxygen Concentration - - Weight 79.4 kg (175 lb) 09/15/2018 1520 EDT Height - - Body Mass Index 25.84 05/24/2018 1102 EDT documented in this encounter Functional Status Functional Status Response [...] No 10/27/2017 documented as of this encounter Discharge Diagnoses Diagnosis R11.2 Nausea with vomiting, unspecified-R11.2[ICD-10-CM] R10.13 Epigastric pain-R10.13[ICD-10-CM] R19.7 Diarrhea, unspecified-R19.7[ICD-10-CM] F41.9 Anxiety disorder, unspecified-F41.9[ICD-10-CM] I11.0 Hypertensive heart disease with heart failure-I11.0[ICD-10-CM] I50.9 Heart failure, unspecified-I50.9[ICD-10-CM] Z79.899 Other custodial (current) drug therapy-Z79.899[ICD-10-CM] documented in this encounter Medications at Time of Discharge Medication Sig Dispensed Refills Start Date End Date ethinyl estradiol-etonogestrel (NUVARING) 0.12-0.015 mg/24 hr vaginal ringIndications:Encount er for surveillance of vaginal ring hormonal contraceptive device Start the Wednesday after period starts. Insert one (1) ring vaginally and leave in place for three (3) weeks, then remove for one (1) week. 3 each 1 06/27/2018 12/07/2018 levonorgestrel (PLAN B ONE STEP) 1.5 mg tabletIndications:Gener al counseling and advice for contraceptive management Take 1 Tab by mouth once for 1 dose. One 1.5 mg tablet as soon as possible within 72 hours of unprotected sexual intercourse 1 Tab 5 10/27/2017 12/31/2018 sertraline (ZOLOFT) 25 mg tabletIndications:Mixed anxiety depressive disorder Take 1 tablet by mouth daily. 30 tablet 2 06/27/2018 12/05/2018 documented as of this encounter Discharge Disposition Disposition Code Departure Means Destination Left Against Medical Advice Home documented in this encounter ED Notes * Kylah Mosquera RN - 09/15/2018 1612 EDT 12 Lead EKG Performed by Kylah Mosquera RN and shown to Vicky Reyna PA. And Nadir Casas MD. * Vicky Reyna PA - 09/15/2018 1536 EDT DOS: 09/15/2018 Chief Complaint Patient presents with ??? Emesis hx CHF (admitted in Apr--not at [facility]; was admitted at [facility]). Now with vomiting x 3 weeks and feels like the symptoms are coming back. Unable to keep any foods down. Has not seen her PMD. Appears in no distress. Very emotional and tearful. C/O abd. Pain across her entire abd. with buring. HPI The patient is a 23 y.o. female who presents today with Emesis (hx CHF (admitted in Apr--not at [facility]; was admitted at [facility]). Now with vomiting x 3 weeks and feels like the symptoms are coming back. Unable to keep any foods down. Has not seen her PMD. Appears in no distress. Very emotional andtearful. C/O abd. Pain across her entire abd. with buring. ) HPI Ms. 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 She notes that up to one week ago she was smoking 2 oz of weed daily. She stopped smoking one week ago as she was concerned it was contributing to her symptoms. Her epigastric pain is diffuse and burning in nature She denies fevers, chills, CP, SOB, recent illness, recent travel, sick contacts, unusual foods, changes in bladder, rashes, injury. Review of Systems Review of Systems My standard 10 pt review of systems was performed for this type of chief complaint and was negativeother than noted above. The patient's past medical, family and social history was reviewed and updated as needed. No Known Allergies Vital Signs Temp: 36.5 ??C (97.7 ??F) Temp src: Oral Pulse: (!) 106 Resp: 12 SpO2: 100 % BP: 131/87 Physical Exam Constitutional: She is oriented to person, place, and time. She appears well- developed and well-nourished. No distress. HENT: Head: Normocephalic and atraumatic. Mouth/Throat: Oropharynx is clear and moist. Eyes: Pupils are equal, round, and reactive to light. Neck: Normal range of motion. Neck supple. Cardiovascular: Normal rate, regular rhythm, normal heart sounds and intact distal pulses. Exam reveals no gallop and no friction rub. No murmur heard. Pulmonary/Chest: Effort normal and breath sounds normal. No respiratory distress. Abdominal: Soft. Bowel sounds are normal. She exhibits no distension and no mass. There is tenderness (diffuse). There is no rebound and no guarding. Musculoskeletal: She exhibits no edema. Neurological: She is alert and oriented to person, place, and time. Skin: Skin is warm and dry. Capillary refill takes less than 2 seconds. No erythema. Psychiatric: She has a normal mood and affect. Her behavior is normal. Nursing note and vitals reviewed. RESULTS EKG orders: EKG 12-LEAD Normal Sinus Rhythm, rate of 83 bpm QTc of 415 with no evidence ischemia reviewed by myself and Dr.Keith Casas. Radiology orders: None Procedures ED COURSE A medical screening exam was performed. Concern Cholelithiasis, cholecystitis, gastritis, colitis, cannabis hyperemesis syndrome(more likely), pancreatitis, viral syndrome. Labs, Urine, UPT, EKG ordered to assess QT prior to administration of Haldol for nausea. 1L fluid ordered to be administered at a slow rate due to patient hx of CHF. No active signs of CHF at this time with no reported CAMPUZANO, PND, CP, edema, weight gain. Labs reassuring. Pt improved with 2 mg Haldol and IV fluids. PA informed by RN that patient has eloped. Pt notes getting a message that her dog had been bitten,feeling improved, and had to leave immediately. She left prior to discussion about her medical status and need for further evaluation or treatment. AMA discussion was performed by RN with paperwork signed while I was evaluating another rpt. Pt was no longer on site at attempted reevaluation. Final diagnoses: Non-intractable vomiting with nausea, unspecified vomiting type DISPOSITION: AMA The patient's pain was managed to an adequate level weighing risk vs. benefit of further medications. Upon departure from the Emergency Department, the patient's pain was 3 on a zero to ten scale. Any further pain treatment will be at the discretion of the provider following up with the patient based on their clinical assessment. Condition at departure from the Emergency Department: Improved PCP: Chela Casas 09/16/2018 12:49 No flowsheet data found. * Maria Elena Hoffmann, WILLOW - 09/15/2018 1520 EDT Chief Complaint Patient presents with ??? Emesis hx CHF (admitted in Apr--not at [facility]; was admitted at [facility]). Now with vomiting x 3 weeks and feels like the symptoms are coming back. Unable to keep any foods down. Has not seen her PMD. Appears in no distress. Very emotional and tearful. C/O abd. Pain across her entire abd. with buring. documented in this encounter Plan of Treatment Not on file documented as of this encounter Procedures Procedure Name Priority Date/Time Associated Diagnosis Comments ECG REPORT - SCANNED 09/30/2018 12:53 EDT COMPLETE BLOOD COUNT AND DIFFERENTIAL STAT 09/15/2018 16:09 EDT NT PRO BNP STAT 09/15/2018 16:09 EDT LIPASE STAT 09/15/2018 16:09 EDT HEPATIC FUNCTION PANEL (ALB,ALK PHOS,ALT,AST,DBIL,TOT DALI,TOT PROT) STAT 09/15/2018 16:09 EDT BASIC METABOLIC PANEL (BMP) STAT 09/15/2018 16:09 EDT EKG 12-LEAD STAT 09/15/2018 16:08 EDT documented in this encounter Results * ECG REPORT - SCANNED (09/30/2018 12:53 EDT) 09/30/2018 12:5 3 EDT Scan 2 Pressure Washer PROCEDURE/MINOR MADELYN GICAL ORDERABLES * NT PRO BNP (09/15/2018 16:09 EDT) NT Pro BNP 127 <300 pg/ml 09/15/2018 16:53 EDT [facility] Comment: Reference Range: NT-proBNP values less than 300 pg/ml have a 99% negative predictive value for excluding acute congestive heart failure. A diagnostic NT-proBNP cutoff of 900 pg/ml has been suggested in adults over 50 years of age in the absence of renal failure. A cutoff of 1200 pg/ml for patients with an eGFR <60 yields a diagnostic sensitivity and specificity of 89% and 72% for acute congestive failure. The results of this assay can be falsely lowered due to the consumption of Biotin. Blood specimen (specimen) BLOOD SPECIMEN / Unknown 09/15/2018 16:09 EDT 09/15/2018 16:26 EDT Vicky Reyna PA-C CHEMISTRY & B LOOD GAS ORDERABLES [facility] [address] [place] [address] * LIPASE (09/15/2018 16:09 EDT) Lipase 105 <251 U/L 09/15/2018 16:43 EDT [facility] Blood specimen (specimen) BLOOD SPECIMEN / Unknown 09/15/2018 16:09 EDT 09/15/2018 16:26 EDT Vicky Reyna PA-C CHEMISTRY & B LOOD GAS ORDERABLES Performing Organization Address [facility] de Phone Number [facility] [address] [place] [address] * HEPATIC FUNCTION PANEL (ALB,ALK PHOS,ALT,AST,DBIL,TOT DALI,TOT PROT) (09/15/2018 16:09 EDT) Albumin 4.4 3.4 - 4.9 g/dl 09/15/2018 16:43 T [facility] Total Protein 7.2 6.3 - 8.2 g/dl 09/15/2018 16:43 T [facility] Total Alkaline Phosphatase 55 38 - 126 U/L 09/15/2018 16:43 T [facility] ALT 25 <53 U/L 09/15/2018 16:43 T [facility] AST 20 15 - 46 U/L 09/15/2018 16:43 [facility] Unconjugated Bilirubin 0.4 0.0 - 1.1 mg/dl 09/15/2018 16:43 T [facility] Conjugated Bilirubin 0.0 0.0 - 0.3 mg/dl 09/15/2018 16:43 [facility] Bilirubin, Total 0.7 <1.4 mg/dl 09/16/19 19 16:43 T [facility] Blood specimen (specimen) BLOOD SPECIMEN / Unknown 09/15/2018 16:09 EDT 09/15/2018 16:26 EDT Vicky Reyna PA-C CHEMISTRY & B LOOD GAS ORDERABLES Performing Organization Address [facility] Co de Phone Number [facility] [address] [place] [address] * (ABNORMAL) BASIC METABOLIC PANEL (BMP) (09/15/2018 16:09 EDT) Sodium 140 136 - 145 mEq/L 09/15/2018 16:43 [facility] Potassium 3.8 3.5 - 5.0 mEq/L 09/15/2018 16:43 [facility] Chloride 106 96 - 110 mEq/L 09/15/2018 16:43 [facility] CO2 26 22 - 32 mEq/L 09/15/2018 16:43 [facility] BUN 7(L) 10 - 26 mg/dl 09/15/2018 16:43 [facility] Creatinine 0.70 0.52 - 1.04 mg/dl 09/15/2018 16:43 [facility] GFR, Calculated 123 >60 ml/min/1.7 3m2 09/15/2018 16:43 [facility] Comment: eGFR calculated using CKD-EPI equation for non Americans. Multiply eGFR by 1.16 for Americans. Calcium 9.6 8.5 - 10.5 mg/dl 09/15/2018 16:43 [facility] Calculated Calcium 9.3 8.5 - 10.5 mg/dl 09/15/2018 16:43 [facility] Glucose, Serum 81 70 - 100 mg/dl 09/15/2018 16:43 [facility] Fasting? Unknown 09/15/2018 16:27 [facility] Blood specimen (specimen) BLOOD SPECIMEN / Unknown 09/15/2018 16:09 EDT 09/15/2018 16:26 EDT Vicky Reyna PA-C CHEMISTRY & B LOOD GAS ORDERABLES [facility] [address] [place] [address] * COMPLETE BLOOD COUNT AND DIFFERENTIAL (09/15/2018 16:09 EDT) WBC 7.60 4.0 - 12.4 K/cmm 09/15/2018 16:37 [facility] RBC 4.54 3.86 - 5.04 M/cmm 09/15/2018 16:37 [facility] Hemoglobin 13.7 11.6 - 15.2 gm/dl 09/15/2018 16:37 [facility] HCT 40.0 34.9 - 44.4 % 09/15/2018 16:37 [facility] MCV 88 81 - 98 fl 09/15/2018 16:37 [facility] MCH 30.2 26.7 - 33.3 pg 09/15/2018 16:37 [facility] MCHC 34.3 32.1 - 35.9 gm/dl 09/15/2018 16:37 [facility] RDW-CV 13.0 <14.7 % 09/15/2018 16:37 [facility] RDW-SD 41.8 <50.4 fl 09/15/2018 16:37 [facility] PLT 235 141 - 377 K/[facility] 09/15/2018 16:37 [facility] MPV 11.5 9.5 - 12.7 fl 09/15/2018 16:37 [facility] % Neutrophils 70.4 % 09/15/2018 16:37 [facility] % Lymphocytes 17.8 % 09/15/2018 16:37 [facility] % Monocytes 7.9 % 09/15/2018 16:37 [facility] % Eosinophils 2.9 % 09/15/2018 16:37 [facility] % Basophils 0.7 % 09/15/2018 16:37 [facility] % Immature Grans 0.3 % 09/15/2018 16:37 [facility] ABS Neutrophils 5.36 2.20 - 8.85 K/[facility] 09/15/2018 16:37 [facility] ABS Lymphs 1.35 1.09 - 3.30 K/[facility] 09/15/2018 16:37 [facility] ABS Monocytes 0.60 0.1 - 0.8 K/[facility] 09/15/2018 16:37 [facility] ABS Eosinophils 0.22 0.03 - 0.61 K/cmm 09/15/2018 16:37 EDT [facility] ABS Basophils 0.05 0.01 - 0.11 K/cmm 09/15/2018 16:37 EDT [facility] ABS Immature Grans 0.02 0 - 0.06 K/cmm 09/15/2018 16:37 EDT [facility] Type of Diff: Automated 09/15/2018 16:37 EDT [facility] Blood specimen (specimen) BLOOD SPECIMEN / Unknown 09/15/2018 16:09 EDT 09/15/2018 16:26 EDT Vicky Reyna PA-C PACKAGES & DN A PROBE ORDERABLES Performing Organization Address City/State/[facility] Co de Phone Number [facility] [address] [place] [address] * EKG 12-LEAD (09/15/2018 16:08 EDT) 09/15/2018 16:0 8 EDT Narrative [facility] EKG - 09/30/2018 12:48 EDT ?[facility] Emergency ? Test Date: ?2018-09-15 Pat Name: ? MARY PORRAS ?Department: ?? ED ? Room: ? GT22 Gender: ? Female ? Ampoule Filler And Sealer: ?? [id number] : ?1995 ? Requested By: BRIANNA VILLARREAL Order Number: [id number] ? Reading : ?? DHRUV CAGLE MD ? Measurements Intervals ?Xenia ? Rate: ? 83 ? P: ?52 NE: ? 144 ?QRS: ?41 QRSD: ? 90 ? T: ?40 QT: ? 376 ? QTc: ?442 ? Interpretive Statements SINUS RHYTHM Compared to ECG 08/25/1999 12:16:00 No significant changes I reviewed the tracing and have either agreed or edited the findings in this report. Electronically Signed On 09-30-2018 12:48:16 EDT by DHRUV CAGLE MD. Procedure Note Dhruv Cagle MD, - 09/30/2018 [facility] Emergency Test Date: 2018-09-15 Pat Name: MARY PORRAS Department: ED Room: GT22 Gender: Female Ampoule Filler And Sealer: [id number] : 1995 Requested By: BRIANNA VILLARREAL Order Number: [id number] Charles MD: DHRUV GONZALEZ Measurements Intervals Xenia Rate: 83 P: 52 NE: 144 QRS: 41 QRSD: 90 T: 40 QT: 376 QTc: 442 Interpretive Statements SINUS RHYTHM Compared to ECG 08/25/1999 12:16:00 No significant changes I reviewed the tracing and have either agreed or edited the findings inthis report. Electronically Signed On 09-30-2018 12:48:16 EDT by MARTITA MEDINA. Vicky Reyna PA-C CARDIAC ECG O RDERABLES [facility] EKG documented in this encounter Visit Diagnoses Diagnosis Non-intractable vomiting with nausea, unspecified vomiting type- Primary documented in this encounter Administered Medications Inactive Administered Medications - up to 3 most recent administrations Medication Order MAR Action Action Date Dose Rate Site haloperidol lactate (HALDOL) injection 2 mg 2 mg, intravenous, NOW X1, 1 dose, On Angel[place] 09/15/18 at 1600, STAT Given 09/15/2018 16:19 EDT 2 mg lactated ringers BOLUS 1,000 mL 1,000 mL, intravenous, NOW X1, 1 dose, On [place] 09/15/18 at 1600, STAT New Bag 09/15/2018 16:19 EDT 1,000 mL documented in this encounter Active and Recently Administered Medications Times are shown in EDT. Scheduled Medication Order 09/13/2018 09/14/2018 09/15/2018 haloperidol lactate (HALDOL) injection 2 mg (COMPLETED) 2 mg, intravenous, NOW X1, 1 dose, On Angel[place] 09/15/18 at 1600, STAT 1619 (Given - Provid er: Tash Youngblood RN) lactated ringers BOLUS 1,000 mL (COMPLETED) 1,000 mL, intravenous, NOW X1, 1 dose, On [place] 09/15/18 at 1600, STAT 1619 (New Bag - Prov ider: Tash Youngblood RN)1647 (Completed - Provider: Kami Perez, RN - Comment: [email or web address]) documented in this encounter Care Teams Precision Instrument Maker Relationship Specialty Start Date End Date Chela Crook, AMADOU [address] [place] [phone] PCP - General 06/04/17 12/30/18 documented as of this encounter
--- OUTSIDE RECORDS SUMMARY | 2024-01-03 13:09 | XMS_ITS | Encounter Summary ---
Author Organization [facility] Address [address] [place] [address] Care Team Providers Care Associate Publisher Name Role Phone Rustam Coppola MD Primary Care Provider [phone] Reason for Visit * Reason Onset Date Comments Appointment Related 03/10/2013 Encounter Details Date Type Department Care Team (Late st Contact Info) Description 03/10/2013 Telephone [facility] Pediatric Cardiology - Main [place] [address] [place] [phone] Chad Middleton MD [address] [place] [phone] Appointment Related Social History Tobacco Use Types Packs/Day Years Used Date Smoking Tobacco: Never Assessed Sex and Gender Information Value Date Recorded Sex Assigned at Not on file Gender Identity Not on file Sexual Orientation Not on file documented as of this encounter Miscellaneous Notes * Telephone Encounter - Dannielle Escobar - 03/10/2013 1453 EST I returned Perla Duncan's called and set up a follow up appointment with Dr. Middleton. * Telephone Encounter - Manoj Merritt - 03/10/2013 1355 EST Calling to schedule a new patient with Dr. Vargas. documented in this encounter Plan of Treatment Not on file documented as of this encounter Visit Diagnoses Not on filedocumented in this encounter Care Teams Associate Publisher Relationship Specialty Start Date End Date Rustam Coppola MD [address] [place] [address] PCP - General 12/19/08 06/03/17 documented as of this encounter
--- OUTSIDE RECORDS SUMMARY | 2024-01-03 13:09 | XMS_ITS | Encounter Summary ---
Author Organization [facility] Address [address] [place] [address] Care Team Providers Care Automatic Riveting Machine Operator Name Role Phone Chela Crook NP Primary Care Provider [phone] Encounter Details Date Type Department Care Team (Late st Contact Info) Description 02/11/2018 Results Only [facility] [phone] Dejuan Mohr MD [address] [place] [phone] Social History Tobacco Use Types Packs/Day Years Used Date Smoking Tobacco: Never Smokeless Tobacco: Never Alcohol Use Standard Drinks/Week Comments No 0 (1 standard drink = 0.6 oz [...] Procedure Name Priority Date/Time Associated Diagnosis Comments COMPREHENSIVE METABOLIC PANEL ([facility]) Routine 02/11/2018 12:55 EST documented in this encounter Results * COMPREHENSIVE METABOLIC PANEL ([facility]) (02/11/2018 12:55 EST) Albumin, External 4.8 3.4 - 4.9 g/dL [facility] Total Alkaline Phosphatase, External 63 38 - 126 U/L [facility] Bilirubin, Total, External 0.6 0.2 - 1.3 mg/dL [facility] Bun, External 12 10 - 26 mg/dL [facility] Calcium, External 9.9 8.5 - 10.5 mg/dL [facility] Chloride, External 102 96 - 110 mmol/L [facility] CO2, External 28 22 - 32 mEq/L [facility] Creatinine, External 0.77 0.52 - 1.04 mg/dL [facility] GFR, Richard/Est., External >60 [facility] Comment: Chronic renal impairment is defined as GFR <60 Multiply result by 1.210 for patients. eGFR calculated using the IDMS-traceable MDRD Study Equation. ??(effective 01/15/2014) Glucose, Serum, External 78 70 - 100 mg/dL [facility] Potassium, External 4.4 3.5 - 5.0 mEq/L [facility] Sodium, External 140 136 - 145 mEq/L [facility] AST, External 25 14 - 36 U/L [facility] ALT, External 21 9 - 52 U/L [facility] 02/11/2018 12:5 5 EST 02/11/2018 13:48 EST Dejuan Mohr MD CHEMISTRY & BL OOD GAS ORDERABLES [facility] documented in this encounter Visit Diagnoses Not on filedocumented in this encounter Care Teams Automatic Riveting Machine Operator Relationship Specialty Start Date End Date Chela Crook NP [address] [place] [phone] PCP - General 06/04/17 12/30/18 documented as of this encounter
--- OUTSIDE RECORDS SUMMARY | 2024-01-03 13:09 | XMS_ITS | Encounter Summary ---
Author Organization [facility] Address [address] [place] [address] Care Team Providers Care Formal Waiter/Waitress Name Role Phone Chela Crook NP Primary Care Provider [phone] Reason for Visit * Reason Onset Date Comments No Show 07/27/2017 Encounter Details Date Type Department Care Team (Late st Contact Info) Description 07/27/[address] [facility] Medicine [facility] [address] [address] Chela Crook NP [address] [phone] No Show Social History Tobacco Use Types Packs/Day Years Used Date Smoking Tobacco: Never Smokeless Tobacco: Never Sex and Gender Information Value Date Recorded Sex Assigned at Not on file Gender Identity Not on file Sexual Orientation Not on file documented as of this encounter Miscellaneous Notes * Telephone Encounter - Chela Grider - 08/13/2017 0846 EDT Have left two messages for pt to call us back, If she does call us back I will reschedule at that time. * Telephone Encounter - Chela Crook NP - 07/27/2017 0923 EDT Yes, please. Thanks. * Telephone Encounter - Gina Coto - 07/27/2017 0911 EDT Pt no showed for her new patient appt on 06/29/17 with Chela York, please advise? Call to review no show policy and reschedule? documented in this encounter Plan of Treatment Not on file documented as of this encounter Visit Diagnoses Not on filedocumented in this encounter Care Teams Formal Waiter/Waitress Relationship Specialty Start Date End Date Chela Crook, INTERNET SALES DIRECTOR [address] [place] [phone] PCP - General 06/04/17 12/30/18 documented as of this encounter
--- OUTSIDE RECORDS SUMMARY | 2024-01-03 13:09 | XMS_ITS | Encounter Summary ---
Author Organization [facility] Address [address] [place] [address] Care Team Providers Care Driller Machine Name Role Phone Chela Crook NP Primary Care Provider [phone] Unknown, Provider Primary Care Provider [phone] Encounter Details Date Type Department Care Team ([facility] st Contact Info) Description 02/11/2018 Historical Results Only [facility] - Main [address] [address] Dejuan Mohr MD [address] [place] [phone] Social History Tobacco Use Types Packs/Day [...] Procedure Name Priority Date/Time Associated Diagnosis Comments COMPLETE BLOOD COUNT WITH DIFFERENTIAL (AUTO) Routine 02/11/2018 12:55 EST TROPONIN I Routine 02/11/2018 12:55 EST NT PRO BNP Routine 02/11/2018 12:55 EST MAGNESIUM Routine 02/11/2018 12:55 EST COMPREHENSIVE METABOLIC PANEL (CMP) Routine 02/11/2018 12:55 EST documented in this encounter Results * MAGNESIUM (02/11/2018 12:55 EST) Magnesium 1.90 1.7 - 2.8 mg/dL 02/11/2018 14:08 [facility] 02/11/2018 12:5 5 EST 02/11/2018 13:48 EST Dejuan Mohr MD CHEMISTRY & BL OOD GAS ORDERABLES [facility] * (ABNORMAL) COMPREHENSIVE METABOLIC PANEL (CMP) (02/11/2018 12:55 EST) Albumin % 4.8 3.4 - 4.9 g/dL 02/11/2018 14:08 [facility] ALKALINE PHOSPHATASE - [facility] 63 38 - 126 U/L 02/11/2018 14:08 [facility] BILIRUBIN TOTAL 0.6 0.2 - 1.3 mg/dL 02/11/2018 14:08 [facility] BUN - [facility] 12 10 - 26 mg/dL 02/11/2018 14:08 [facility] CALCIUM - [facility] 9.9 8.5 - 10.5 mg/dL 02/11/2018 14:08 [facility] Chloride 102 96 - 110 mmol/L 02/11/2018 14:08 [facility] CO2 Total 28 22 - 32 mEq/L 02/11/2018 14:08 [facility] CREATININE 0.77 0.52 - 1.04 mg/dL 02/11/2018 14:08 [facility] eGFR >60 02/11/2018 14:08 [facility] Comment: Chronic renal impairment is defined as GFR <60 Multiply result by 1.210 for patients. eGFR calculated using the IDMS-traceable MDRD Study Equation. ??(effective 01/15/2014) Anion Gap 10 0 - 18 02/11/2018 14:08 [facility] GLUCOSE - [facility] 78 70 - 100 mg/dL 02/11/2018 14:08 [facility] Potassium 4.4 3.5 - 5.0 mEq/L 02/11/2018 14:08 [facility] Sodium 140 136 - 145 mEq/L 02/11/2018 14:08 [facility] TOTAL PROTEIN - [facility] 8.5(H) 6.2 - 8.2 gm/dL 02/11/2018 14:08 [facility] SGOT/AST - [facility] 25 14 - 36 U/L 02/11/2018 14:08 [facility] SGPT/ALT - [facility] 21 9 - 52 U/L 8 14:08 [facility] 02/11/2018 12:5 5 EST 02/11/2018 13:48 EST Dejuan Mohr MD CHEMISTRY & BL OOD GAS ORDERABLES [facility] * NT PRO BNP (02/11/2018 12:55 EST) NT-pro BNP 95 <300 pg/mL 02/11/2018 14:18 [facility] Comment: NT-proBNP values less than 300 pg/ml have a 99% negative predictive value for excluding acute congestive heart failure. A diagnostic NT-proBNP cutoff of 900 pg/ml has been suggested in adults over 50 years of age in the absence of renal failure. A cutoff of 1200 pg/ml for patients with eGFR <60 yields a diagnostic sensitivity and specificity of 89% and 72% for acute congestive failure. (OCD Lencho Alberto, PhD, The International Collaborative of NT-proBNP (ICON) Study The results of this assay can be falsely lowered due to the consumption of Biotin. 02/11/2018 12:5 5 EST 02/11/2018 13:48 EST Dejuan Mohr MD CHEMISTRY & BL OOD GAS ORDERABLES Performing Organization Address [facility] Co de Phone Number [facility] * TROPONIN I (02/11/2018 12:55 EST) Pathologist [facility] Troponin I (ng/mL) <0.012 0.000 - 0.034 ng/mL 02/11/2018 14:20 [facility] Comment: Interpretation comments: ??Cutoff for a positive troponin result is set at the 99th percentile of the upper reference limit. ??Elevated troponin must always be interpreted in the context of the clinical presentation. ?Serial troponin testing 3-6 hr from baseline is favored over relying on a single troponin level. ?? The results of this assay can be falsely lowered due to the consumption of Biotin. 02/11/2018 12:5 5 EST 02/11/2018 13:48 EST Dejuan Mohr MD CHEMISTRY & BL OOD GAS ORDERABLES Performing Organization Address [facility] Co de Phone Number [facility] * COMPLETE BLOOD COUNT WITH DIFFERENTIAL (AUTO) (02/11/2018 12:55 EST) Pathologist [facility] ABSOLUTE NEUTROPHIL COUN - [facility] 6.11 1.7 - 7.0 10e3/ul 02/11/2018 13:57 [facility] BASO # - [facility] 0.03 0.0 - 0.3 10e3/uL 02/11/2018 13:57 [facility] BASO % - [facility] 0 0 - 2 % 02/11/2018 13:57 [facility] EOS # - [facility] 0.33 0.05 - 0.5 10e3/uL 02/11/2018 13:57 [facility] EOS % - [facility] 4 0 - 5 % 02/11/2018 13:57 [facility] GRAN % - [facility] 68 40 - 80 % 02/11/2018 13:57 [facility] HEMATOCRIT - [facility] 44.3 34.0 - 47.0 % 02/11/2018 13:57 [facility] HEMOGLOBIN - [facility] 14.7 11.2 - 15.7 g/dl 02/11/2018 13:57 [facility] IG# - [facility] 0.03 0 - 0.07 10e3/uL 02/11/2018 13:57 [facility] IG% - [facility] 0.3 0 - 0.9 % 02/11/2018 13:57 [facility] LYMPH # - [facility] 1.77 0.9 - 2.9 10e3/uL 02/11/2018 13:57 [facility] LYMPH% - [facility] 20 20 - 40 % 02/11/2018 13:57 [facility] MEAN CORPUSCULAR HGB - [facility] 30.4 26 - 34 pg 02/11/2018 13:57 [facility] MEAN CORPUSCULAR HGB CONC - [facility] 33.2 31 - 36 g/dL 02/11/2018 13:57 [facility] MEAN CELL VOLUME - [facility] 91.5 77 - 100 fl 02/11/2018 13:57 [facility] MONO # - [facility] 0.71 0.3 - 0.9 10e3/uL 02/11/2018 13:57 [facility] MONO% - [facility] 8 0 - 12 % 02/11/2018 13:57 [facility] PLATELET COUNT 297 150 - 400 10e3/ul 02/11/2018 13:57 [facility] RED BLOOD COUNT - [facility] 4.84 3.8 - 5.2 10e6/ul 02/11/2018 13:57 [facility] RED CELL DISTRI WIDTH - [facility] 12.7 11.8 - 15.6 % 02/11/2018 13:57 [facility] WHITE BLOOD COUNT - [facility] 9.0 3.5 - 10.5 10e3/ul 02/11/2018 13:57 [facility] 02/11/2018 12:5 5 EST 02/11/2018 13:49 EST Dejuan Mohr MD HEMATOLOGY & P F4 ORDERABLES [facility] documented in this encounter Visit Diagnoses Not on filedocumented in this encounter Care Teams Driller Machine Relationship Specialty Start Date End Date Chela Crook, AMADOU [address] [place] [phone] PCP - General 06/04/17 12/30/18 Unknown, Provider, [address] [place] [phone] PCP - General 12/31/18 documented as of this encounter
--- OUTSIDE RECORDS SUMMARY | 2024-01-03 13:09 | XMS_ITS | Encounter Summary ---
Author Organization [facility] Address [address] [place] [address] Care Team Providers Care Contestant Coordinator Name Role Phone Chela Crook NP Primary Care Provider [phone] Encounter Details Date Type Department Care Team (Latest Contact Info) Description 12/20/2018 Travel Social History Tobacco Use Types Packs/Day Years [...] on filedocumented in this encounter Care Teams Contestant Coordinator Relationship Specialty Start Date End Date Chela Crook NP [address] [place] [address] [phone] PCP - General 06/04/17 12/30/18 documented as of this encounter
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
--- OUTSIDE RECORDS SUMMARY | 2024-01-03 13:09 | XMS_ITS | Encounter Summary ---
Author Organization [facility] Address [address] [place] [address] Care Team Providers Care Photoengraving Proofer Name Role Phone Unavailable Primary Care Provider Unavailabl e Encounter Details Date Type Department Care Team (Late st Contact Info) Description 12/22/2007 Before PRISM Converted Visit (Maple) [facility] - Maple conversion [address] [place] [address] Chad Middleton MD [address] [place] [phone] Social History Tobacco Use Types Packs/Day Years Used Date Smoking Tobacco: Never Assessed Sex and Gender Information Value Date Recorded Sex Assigned at Not on file Gender Identity Not on file Sexual Orientation Not on file documented as of this encounter Progress Notes * Chad Middleton MD - 10/06/2008 0652 EDT PROGRESS/FOLLOWUP NOTE - 12/22/2007 [place] [address] Dear Ms. Verdugo: I saw Mary on 12/22/2007 in our [facility] clinic. 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 She responded to anticongestive therapy and slowly recovered ventricular function over the following year or two. She has had a borderline enlarged heart since her recovery, with normal tomildly depressed function. Since I last saw andres year ago, she has generally continued to do well. She feels that she gets a little more short of breath with exercise than her peers, but her father has noted no difficulty running up and down stairs and with normal daily activity. She has had no complaints of chest pain and no known palpitations, dizzy spells, or fainting episodes. She has had no chronic coughing, wheezing, or pneumonia. She has had no major illnesses or hospitalizations. She has been on no medications routinely. Her father feels that she is doing very well. Mary says she is doing satisfactorily in school, but does not enjoy it very much. She is currently living with her father. On physical examination today, her height was 154.5 cm and her weight 50.5 kg, both 75th to 90th percentile. Her blood pressure was 102/61 in the right arm. Her pulse was 84 and her resting respiratory rate was 24. Her femoral pulses felt strong and her extremities were warm and well perfused. Her abdomen was soft and nontender. Her liver was not enlarged. No abdominal masses were appreciated. Her precordium was quiet. Her lungs were clear with symmetric aeration. Her neck veins were not distended. Her lips and nailbeds were pink. She had no clubbing or peripheral edema. She had a normal first heart sound and a physiologically split second heart sound of normal intensity. She had no significant murmurs. Her electrocardiogram was normal. A 2-dimensional echo and Doppler study was performed. This demonstrated her left ventricular size in the upper range of normal, with normal to mildly depressed left ventricular function. There was trivial mitral regurgitation. In summary, Mary has basically recovered from her infant illness, although she probably still has some ventricular scarring. I do not think there is any reason to restrict her activity at present.I anticipate putting her on a treadmill in a couple of years to see her response to exercise. I would want to know if she experienced any palpitations or arrhythmic symptoms. She canparticipate in gym class and normal physical activity without restrictions. She does not need SBE prophylaxis or any other medications. I would like to see her again in about a year for routine reevaluation. Please give me a call if you have questions or concerns regarding her cardiac status or about her past history. Sincerely, Total time spent with patient was 25 minutes; over 50% of the time was spent [id number] on counseling and managing care as described above. Signed by Chad Middleton MD 12/26/2007 08:23 Chad Middleton MD Division of Pediatric Cardiology [phone] - Chad Middleotn MD A - [facility] Job ID: [id number] Doc ID: [id number] cc: MARCELO Hobson documented in this encounter Plan of Treatment Not on file documented as of this encounter Visit Diagnoses Not on filedocumented in this encounter
--- OUTSIDE RECORDS SUMMARY | 2024-01-03 13:09 | XMS_ITS | Encounter Summary ---
Author Organization [facility] Address [address] [place] [address] Care Team Providers Care Jewel Bearing Maker Name Role Phone Chela Crook NP Primary Care Provider [phone] Reason for Visit * Reason Onset Date Comments No Show 02/23/2018 Encounter Details Date Type Department Care Team (Late st Contact Info) Description 02/23/2018 Telephone [facility] General Surgery - [address] [address] Arlene Phoenix MD [address] [phone] No Show Social History Tobacco [...] encounter Miscellaneous Notes * Telephone Encounter - Liz Patterson - 02/23/2018 1621 EST FYI: Pt no showed her new patient consult with Dr. Phoenix on 02/22 documented in this encounter Plan of Treatment Not on file documented as of this encounter Visit Diagnoses Not on filedocumented in this encounter Care Teams Jewel Bearing Maker Relationship Specialty Start Date End Date Chela Crook, TIPPLE TENDER [address] [place] [phone] PCP - General 06/04/17 12/30/18 documented as of this encounter
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
--- OUTSIDE RECORDS SUMMARY | 2024-01-03 13:09 | XMS_ITS | Encounter Summary ---
Author Organization [facility] Address [address] [place] [address] Care Team Providers Care Transformer Stock Clerk Name Role Phone Chela Crook NP Primary Care Provider [phone] Reason for Referral * Consult (Routine/Next Available) - Closed Specialty Diagnoses / Procedures Referred By Marvin vo Referred To Contact Diagnoses Mixed anxiety depressive disorder Chela Crook NP [address] [address] Referral ID Status Reason Start Date Expiration Date V isits Requested Visits Authorized [id number] Closed Specialty Services Required 06/27/2018 1 1 Question Answer Concerns Resulting in Behavioral Health Consultation: Mental Health Assessment, Anxiety, Other (Please specifiy in comments field) What goals would you like the patient to meet? meet with Mely Carbajal Requested Appointment Duration: 60 minutes Comments Pt with PTSD, family history of mental illness.She has depression and severe anxiety. Please evaluate. Reason for Visit * Reason Comments Anxiety affecting work, avoi ding people and places, lingering for 2 weeks Other Recently stopped smo pop marijuana Encounter Details Date Type Department Care Team (Latest Contact Info) Description 06/27/2018 11:45 EDT Office Visit [facility] [place] [address] [facility] [address] [address] Chela Crook NP [address] [phone] Mixed anxiety depressive disorder (Primary Dx); Screening for mental disorder and developmental handicaps; Encounter for surveillance of vaginal ring hormonal contraceptive device Social History Tobacco Use Types Packs/Day Years Used Date Smoking Tobacco: Never Smokeless Tobacco: Never Tobacco Cessation:Counseling Given: Yes [...] Sign Reading Time Taken Comments Blood Pressure 116/78 06/27/2018 1152 EDT Pulse 100 06/27/2018 1152 EDT Temperature 36.9 ??C (98.5 ??F) 06/27/2018 1152 EDT Respiratory Rate - - Oxygen Saturation 100% 06/27/2018 1152 EDT Inhaled Oxygen Concentration - - Weight - - Height - - Body Mass Index - - documented in this encounter Functional Status Functional [...] Patient Instructions * Patient Instructions* Chela Crook Aprn - 06/27/2018 11:45 EDT Crisis services are available 24 hours a day, 7 days a week. The [facility] Emergency Team can be reached at [phone]. documented in this encounter Ordered Prescriptions Prescription Sig Dispensed Refills Start Date End Da te sertraline (ZOLOFT) 25 mg tabletIndications:Mixed anxiety depressive disorder Take 1 tablet by mouth daily. 30 tablet 2 06/27/2018 12/05/2018 ethinyl estradiol-etonogestrel (NUVARING) 0.12-0.015 mg/24 hr vaginal ringIndications:Encounte r for surveillance of vaginal ring hormonal contraceptive device Start the Wednesday after period starts. Insert one (1) ring vaginally and leave in place for three (3) weeks, then remove for one (1) week. 3 each 1 06/27/2018 12/07/2018 documented in this encounter Progress Notes * Chela Crook Aprn E - 06/27/2018 1145 EDT Subjective: Patient ID: Mary Porras is an 22 y.o. female. Chief Complaint Patient presents with ??? Anxiety affecting work, avoiding people and places, lingering for 2 weeks ??? Other Recently stopped smoking marijuana HPI Reports a long history of anxiety and depression. She has a history of trauma. No longer in counseling. Tries several calming methods such as a warm bath, mindfulness or breathing. Worries all the time about everything, feeling irritable. Depression at times. She sleeps poorly, has nightmares. Living in her own apartment, but is often with friends. Her son (Julian) lives with her part of the day three times per week, and lives with her parents at other times. He is 4 years old. Endorses possible manic episodes, decreased need for sleep at times, but these do not impact her functioning. No psychosis or disordered thinking. She denies hypersexuality. Had been smoking marijuana daily to cope, but stopped it 2 weeks ago and has abstained since. She endorses alcohol use, will have one drink whenshe goes out with a friend. No other drug use. She denies suicidal ideation or thoughts of self harm. When she was younger (age 11) she was on Zoloft for PTSD. She lived in [place] with her father for a time; apparently her father medicated her with illicit drugs. She was eventually sent to [place] to live with her mother, who has bipolar. She has a dog that she finds to be therapeutic. Requesting note that this animal provides therapeutic benefit. Patient Active Problem List Diagnosis ??? Sinus tachycardia ??? Cardiomyopathy (HCC-CMS) ??? Umbilical hernia without obstruction and without gangrene ??? PTSD (post-traumatic stress disorder) ??? Mixed anxiety depressive disorder Past Medical History: Diagnosis Date ??? CHF (congestive heart failure) (HCC-CMS) ??? High risk teen 06/25/2017 ??? History of myocarditis infancy with severe dysfunction ??? Hypertension ??? Migraines Current Outpatient Medications on File Prior to Visit Medication Sig Dispense Refill ??? levonorgestrel (PLAN B ONE STEP) 1.5 mg tablet Nuvaring Take 1 Tab by mouth once for 1 dose. One 1.5 mg tablet as soon as possible within 72 hoursof unprotected sexual intercourse (Patient not taking: Reported on 05/12/2018) 1 Tab 5 No current facility-administered medications on file prior to visit. No Known Allergies Social Social History Tobacco Use ??? Smoking status: Never Smoker ??? Smokeless tobacco: Never Used Substance Use Topics ??? Alcohol use: Yes Comment: rare use ??? Drug use: Yes Frequency: 21.0 times per week Types: Marijuana Review of Systems Psychiatric/Behavioral: Positive for depression. Negative for substance abuse and suicidal ideas. The patient is nervous/anxious and has insomnia. - See HPI Objective: BP 116/78 Pulse 100 Temp 36.9 ??C (98.5 ??F) (Oral) LMP 06/06/2018 SpO2 100% Physical Exam Constitutional: She is oriented to person, place, and time. She appears well- developed and well-nourished. No distress. Pleasant, no acute distress, tearful at times Pulmonary/Chest: Effort normal. Neurological: She is alert and oriented to person, place, and time. Psychiatric: She has a normal mood and affect. Her behavior is normal. Appropriately groomed for the weather, polite, logical, good eye contact, speech is clear, no suicidal ideation or thoughts of self-harm Nursing note and vitals reviewed. Assessment: Pleasant 23-year-old female with history of trauma here with reports of anxiety and depression. Behavioral health screen reviewed and positive for severe anxiety and moderate depressive symptoms. No psychosis or disordered thinking. She has abstained from regular marijuana use; applauded lifestyle change. No suicidal ideation or self-harm behaviors. She would likely benefit from SSRI therapy. Lowsuspicion for bipolar, but should be careful with titration of an SSRI. She is open to the idea of psychotherapy. She is using the NuvaRing for contraception and is tolerating it well. No contraindications to continued use. Refill provided. Plan: Mary was seen today for anxiety and other. Diagnoses and all orders for this visit: Mixed anxiety depressive disorder -follow-up with Ramonita Carbajal of psychotherapy. Start Zoloft 25 mg once daily. Discussed administration, risks and benefits, including increased risk for suicidal ideation or trigger of lucía. She knows the [facility] crisis hotline. Return in 4 weeks for follow-up, soone r if needed. - AMB CONS/FOLLOW UP BEHAVIORAL HEALTH - sertraline (ZOLOFT) 25 mg tablet; Take 1 tablet by mouth daily. Screening for mental disorder and developmental handicaps Encounter for surveillance of vaginal ring hormonal contraceptive device - ethinyl estradiol-etonogestrel (NUVARING) 0.12-0.015 mg/24 hr vaginal ring; Start the Wednesday after period starts. Insert one (1) ring vaginally and leave in place for three (3) weeks, then remove for one (1) week. Return in about 4 weeks (around 07/25/2018) for [address] Block was the attending physician available in the clinic today if needed. A consultation was not required. documented in this encounter Plan of Treatment Scheduled Referrals Name Type Priority Associated Diagnoses Order Schedule AMB CONS/FOLLOW UP BEHAVIORAL HEALTH Outpatient Referral Routine Mixed anxiety depressive disorder Ordered: 06/27/2018 documented as of this encounter Visit Diagnoses Diagnosis Mixed anxiety depressive disorder- Primary Dysthymic disorder Screening for mental disorder and developmental handicaps Screening for unspecified mental disorder and developmental handicap Encounter for surveillance of vaginal ring hormonal contraceptive device documented in this encounter Care Teams Transformer Stock Clerk Relationship Specialty Start Date End Date Chela Crook NP [address] [place] [phone] PCP - General 06/04/17 12/30/18 documented as of this encounter
--- OUTSIDE RECORDS SUMMARY | 2024-01-03 13:09 | XMS_ITS | Encounter Summary ---
Author Organization [facility] Address [address] [place] [address] Care Team Providers Care Paper Processing Machine Helper Name Role Phone Unknown, Provider Primary Care Provider [phone] Reason for Visit * Reason Comments Vaginal Bleeding Pt with painful heav y vaginal bleeding x 24 hours. A&O. Respirations unlabored. Skin warm & dry. NAD. Encounter Details Date Type Department Care Team ([facility] st Contact Info) Description 12/31/2018 17:04 EDT - 12/31/2018 20:25 EDT [facility] - [address] [id number] Christa Reyna PA-C [address] [place] [address] [phone] Ramonita Lopes MD MPH [address] [phone] Emergency, MD [facility] Vaginal bleeding (Primary Dx) Discharge Disposition: Home or Self Care Social History Tobacco Use Types Packs/Day Years [...] Blood Pressure 95/66 12/31/2018 1957 EDT Pulse - - Temperature 36.8 ??C (98.2 ??F) 12/31/20181708 EDT Respiratory Rate 16 12/31/20181708 EDT Oxygen Saturation 100% 12/31/20182000 EDT Inhaled Oxygen Concentration - - Weight 74.8 kg (165 lb) 12/31/20181708 EDT Height 177.8 cm (5' 10) 12/31/20181708 EDT Body Mass Index 23.68 12/31/20181708 EDT documented in this encounter Functional Status [...] as of this encounter Discharge Diagnoses Diagnosis N93.9 Abnormal uterine and vaginal bleeding, unspecified-N93.9[ICD-10-CM] R10.30 Lower abdominal pain, unspecified-R10.30[ICD-10-CM] R42 Dizziness and giddiness-R42[ICD-10-CM] F17.210 Nicotine dependence, cigarettes, uncomplicated-F17.210[ICD-10-CM] documented in this encounter Discharge Instructions * Discharge Instructions* Christa Melchor PA - 12/31/2018 20:12 EDT Continue to rest, drink plenty of fluids. Take Ibuprofen (600 mg every 6 hours) for pain and inflammation. A urine culture is in process- we will call with positive results and discuss treatment with antibiotics If you bleed completely through one pad every hour, if you feel lightheaded, if you pass out or feel you will pass out then return to the ED for a repeat evaluation. Contact the [facility] for follow up If your pain is not controlled, if you feel dizzy or lightheaded or have a fainting episode, if youdevelop a fever, or if any other concerning symptoms occur, please return to the ED immediately forreevaluation. * Attachments The following attachments cannot be sent through Care Everywhere. * Vaginal Bleeding (Telugu) documented in this encounter Medications at Time of Discharge Medication Sig Dispensed Refills Start Date End Date nitrofurantoin, macrocrystal-monohydrate, (MACROBID) 100 mg capsule Take 1 Cap by mouth every 12 hours for 5 days. 10 Cap 01/02/2019 01/07/2019 sertraline (ZOLOFT) 25 mg tablet Take 25 mg by mouth daily. 01/11/2019 documented as of this encounter Ordered Prescriptions Prescription Sig Dispensed Refills Start Date End Da te nitrofurantoin, macrocrystal-monohydrate, (MACROBID) 100 mg capsule Take 1 Cap by mouth every 12 hours for 5 days. 10 Cap 01/02/2019 01/07/2019 documented in this encounter Discharge Disposition Disposition Code Departure Means Destination Home or Self Care documented in this encounter Progress Notes * Ariela Coronel [facility] - 12/31/20182024 EDT Urine culture obtained on 12/31 reveals >100,000 CFU E Coli. Spoke with patient to inform of result and sent electronic rx for Macrobid 100mg BID x 5 days to [facility] in [place] per GABRIELLA Schmitt.Patient verbalized good understanding of instructions. Ariela Coronel, PharmD Pager [phone] documented in this encounter ED Notes * Tash Youngblood RN - 12/31/20182022 EDT Orders for discharge. AVS reviewed with and provided to patient. Plan to take ibuprofen for pain and bleeding, monitor and return if soaking 1 pad/hour, and to follow up with OB. VSS. IV removed without complications. Ambulated out of ED with steady gait. * Axel Francisco, GABRIELLA Gamboa - 12/31/2018 2013 EDT DOS: 12/31/2018 Chief Complaint Patient presents with ??? Vaginal Bleeding Pt with painful heavy vaginal bleeding x 24 hours. A&O. Respirations unlabored. Skin warm &dry. NAD. HPI The patient is a 23 y.o. female who presents today with Vaginal Bleeding (Pt with painful heavy vaginal bleeding x 24 hours. A&O. Respirations unlabored. Skin warm & dry. NAD.) HPI Patient is a 23-year-old G2, P1 female with past medical history significant for myocarditis, hypertension, status post , who presents to the ED for evaluation of vaginal bleeding. Patient states that she started with vaginal bleeding today, feels as though she is bleeding 1 1/2 to 2 weeksearly. She reports using 7 tampons and 4-5 pads since last evening. She is passing small funmi sizeclots, has some suprapubic cramping. She is sexually active with one partner, denies vaginal discharge or odor, does not currently take oral contraceptives, took a test 1.5 weeks ago that was negative. She has not attempted to get . She reports some lightheadedness, denies headache , chest pain, shortness of breath, urinary symptoms. No blood dyscrasias. Pain is 7/10 in severity,she took Aleve, Midol, and Pamprin last night without improvement of her symptoms. Review of Systems Review of Systems see above No Known Allergies Vital Signs Temp: 36.8 ??C (98.2 ??F) Heart Rate: 90 BPM Resp: 16 SpO2: 100 % BP: 95/66 BP MAP: 75 mm Hg BP Device: BP Machine Patient Position: Sitting BP Cuff Location: Right arm O2 Device: None (Room air) Physical Exam Constitutional: She is oriented to person, place, and time. She appears well- developed and well-nourished. No distress. HENT: Head: Normocephalic and atraumatic. Right Ear: External ear normal. Left Ear: External ear normal. Conjunctiva pink Eyes: Conjunctivae and EOM are normal. Neck: Normal range of motion. Cardiovascular: Normal rate and intact distal pulses. Pulmonary/Chest: Effort normal and breath sounds normal. No stridor. No respiratory distress. She has no wheezes. Abdominal: Soft. Bowel sounds are normal. She exhibits no distension and no mass. There is tenderness. There is no rebound. Genitourinary: Genitourinary Comments: No active bleeding noted, pad in place x 1 hour with minimal blood noted Musculoskeletal: Normal range of motion. Neurological: She is alert and oriented to person, place, and time. Skin: Skin is warm and dry. She is not diaphoretic. Psychiatric: She has a normal mood and affect. Nursing note and vitals reviewed. RESULTS EKG orders: None Radiology orders: None Procedures ED COURSE A medical screening exam was performed. Patient is a 23-year-old G2, P1 female with past medical history significant for myocarditis, hypertension, status post , who presents to the ED for evaluation of vaginal bleeding. Vital signs are stable, patient is resting in stretcher no acute distress. She is generalized suprapubic tenderness palpation without rebound or guarding. She declines a pelvic exam in the ED today. Plan for basic labs, rehydration, and monitoring Her H&H is normal, UPT is negative. She does have positive nitrates and leukocyte esterase in her urine, however denies any urinary symptoms. A culture is in process, and I would treat if positive. After Toradol and fluids she feels significantly improved. She would like to follow-up with [facility] for consideration of a Mirena. We discussed importance of contraception. She will return to the ED as needed VSS, afebrile. PE concerning for vaginal bleeing. Pt rating pain at 7/10, is well-appearing and resting in NAD. Discussed symptomatic measures and discharged to home with detailed instructions and closely recommended follow-up. Supervising Physician: Moses Final diagnoses: Vaginal bleeding DISPOSITION: Discharged The patient's pain was managed to an adequate level weighing risk vs. benefit of further medications. Upon departure from the Emergency Department, the patient's pain was 7 on a zero to ten scale. Any further pain treatment will be at the discretion of the provider following up with the patient based on their clinical assessment. Condition at departure from the Emergency Department: Good PCP: Doctor Unknown MDM 12/31/2018 20:13 No flowsheet data found. * Miranda Navarro MA - 12/31/2018 1826 EDT Blood drawn via saline lock per protocol, tiger and purple tube(s) sent to lab per order. * Ramonita Lopes MD - 12/31/2018 1736 EDT I, Shandra Boyce, am scribing for Ramonita Lopes MD while she is personally performing the service. Shandra Boyce 12/31/2018 17:36 I performed a history and exam of this patient and discussed the case with the PA. I reviewed this individual's note and I concur with the documented findings and plan of care except as documented differently. ROS as per PA chart. Mary Porras is a 23 y.o. female with a history of CHF, endocarditis who presents to the ED for irregular vaginal bleeding. The patient reports that her bleeding began last night and she has since used 7 tampons and 5 pads with periodic funmi-sized clots. She reports that when compared to her normal menses, this period is 1.5 weeks earlier, heavier, and with more severe cramping. She notes associated headache and mild lightheadedness. The patient notes taking Aleve with relief, but currently endorses lower abdominal pain. Additionally, the patient notes that she last had intercourse two weeks ago and took a test one week ago which was negative. The patient had labs that were significant for negative UPT. Blood in urine present, but likely dueto vaginal bleeding. Based on the patient's improving condition, it was decided that the patient was safe for discharge to home care. She was advised to use ibuprofen for pain and informed that she will be notified of the results of her urine culture. She was advised to follow up with [facility] and return to the ED for new or worsening symptoms. This documentation is recorded by Shandra Boyce acting as Scribe under the direction and presence of Ramonita Lopes MD. Ramonita Lopes MD: I personally performed the services recorded by the scribe in my presence. I confirm the scribe's documentation has been reviewed by me to accurately and completely record my work, treatment, procedures, and medical decision making. * Ladarius Lafleur RN - 12/31/2018 1709 EDT Chief Complaint Patient presents with ??? Vaginal Bleeding Pt with painful heavy vaginal bleeding x 24 hours. A&O. Respirations unlabored. Skin warm &dry. NAD. documented in this encounter Plan of Treatment Not on file documented as of this encounter Procedures Procedure Name Priority Date/Time Associated Diagnosis Comments ED/URGENT CARE ADD-ON STAT 12/31/2018 19:00 EDT UA SEDIMENT ONLY STAT 12/31/2018 18:1 0 EDT COMPLETE BLOOD COUNT AND DIFFERENTIAL STAT 12/31/2018 18:10 EDT BACTERIAL CULTURE, URINE Routine 12/31/2018 18:10 EDT BASIC METABOLIC PANEL (BMP) STAT 12/31/2018 18:10 EDT POCT TEST, CLINITEK STAT 12/31/2018 18:06 EDT POCT URINE DIPSTICK, CLINITEK STAT 12/31/2018 17:28 EDT documented in this encounter Results * ED/URGENT CARE ADD-ON (12/31/2018 19:00 EDT) Tests to be added URINE CULTURE 12/31/2018 18:58 EDT [facility] Number for problems [id number] (ED) 12/31/2018 18:58 EDT [facility] TOPOGRAPHY UNKNOWN / Unknown 12/31/2018 19:00 EDT 12/31/2018 19:04 EDT Christa Reyna PA-C HEMATOLOGY & PF4 ORDERABLES [facility] [address] [place] [address] * BACTERIAL CULTURE, URINE (12/31/2018 18:10 EDT) Result Greater than 100,000 CFU/ml ESCHERICHIA COLI 01/02/2019 7:49 EDT [facility] Result Less than 10,000 CFU/ml Usual urogenital phillip. 01/02/2019 7:49 EDT [facility] URINE / Unknown 12/31/2018 1 8:10 EDT 12/31/2018 23:10 EDT Narrative Organism Antibiotic Method Susceptibility Greater than 100,000 cfu/ml escherichia coli Ampicillin SUSCEPTIBILITY (SAURAV) Resistant Greater than 100,000 cfu/ml escherichia coli Trimethoprim-Sulfameth oxazole SUSCEPTIBILITY (SAURAV) Susceptible Greater than 100,000 cfu/ml escherichia coli Nitrofurantoin SUSCEPTIBILITY (SAURAV) Susceptible Greater than 100,000 cfu/ml escherichia coli Ceftriaxone SUSCEPTIBILITY (SAURAV) Susceptible Greater than 100,000 cfu/ml escherichia coli Ciprofloxacin SUSCEPTIBILITY (SAURAV) Susceptible Greater than 100,000 cfu/ml escherichia coli Piperacillin Tazobactam SUSCEPTIBILITY (SAURAV) Intermediate Greater than 100,000 cfu/ml escherichia coli Meropenem SUSCEPTIBILITY (SAURAV) Susceptible Greater than 100,000 cfu/ml escherichia coli Ertapenem SUSCEPTIBILITY (SAURAV) Susceptible Greater than 100,000 cfu/ml escherichia coli Cefazolin SUSCEPTIBILITY (SAURAV) Susceptible Greater than 100,000 cfu/ml escherichia coli Cefazolin SUSCEPTIBILITY (SAURAV) Cefazolin susceptibility results can be used to predict susceptibility results for the following oral cephalosporins when used for therapy of uncomplicated UTIs due to E.coli, K.pneumoniae, and P.mirabilis: cefaclor, cefdinir, cefpodoxime, cefprozil, cefuroxime , cephalexin, loracarbef. Cefdinir, cefpodoxime, and cefuroxime may be tested individually because some isolates may be susceptible to these agents while testing resistant to cefazolin. Please note that only cefpodoxime and cephalexin [facility]. Ramonita Lopes MD MPH MICROBIOLOGY - GENERAL ORDERABLES [facility] [address] [place] [address] * BASIC METABOLIC PANEL (BMP) (12/31/2018 18:10 EDT) Sodium 138 136 - 145 mEq/L 12/31/2018 18:43 [facility] Potassium 4.0 3.5 - 5.0 mEq/L 12/31/2018 18:43 [facility] Chloride 104 96 - 110 mEq/L 12/31/2018 18:43 [facility] CO2 30 22 - 32 mEq/L 12/31/2018 18:43 [facility] BUN 11 10 - 26 mg/dl 12/31/2018 18:43 [facility] Creatinine 0.71 0.52 - 1.04 mg/dl 12/31/2018 18:43 [facility] GFR, Calculated 121 >60 ml/min/1.7 3m2 12/31/2018 18:43 [facility] Comment: eGFR calculated using CKD-EPI equation for non Americans. Multiply eGFR by 1.16 for Americans. Calcium 9.1 8.5 - 10.5 mg/dl 12/31/2018 18:43 [facility] Calculated Calcium 9.3 8.5 - 10.5 mg/dl 12/31/2018 18:43 [facility] Glucose, Serum 90 70 - 100 mg/dl 12/31/2018 18:43 [facility] Fasting? Unknown 12/31/2018 18:28 [facility] Blood specimen (specimen) BLOOD SPECIMEN / Unknown 12/31/2018 18:10 EDT 12/31/2018 18:28 EDT Christa Reyna PA-C CHEMISTRY & BLOOD GAS ORDERABLES [facility] [address] [place] [address] * (ABNORMAL) URINE SEDIMENT ANALYSIS (MICROSCOPIC ONLY) (12/31/2018 18:10 EDT) Urine RBC Count Automated 3 to 10(A) 0 to 2 /HPF 12/31/2018 18:37 [facility] Urine WBC Count Automated 11 to 50(A) 0 to 3 /HPF 12/31/2018 18:37 [facility] Urine Squamous Epithelial Cell Count, Automated Few(A) None seen /LPF 12/31/2018 18:37 EDT [facility] Urine Hyaline Casts, Automated < or = 10 < or = 10 /LPF 12/31/2018 18:37 [facility] Urine Bacteria Count, Automated Few(A) None seen 12/31/2018 18:37 EDT [facility] UA Comment Sediment results 12/31/2018 18:37 T [facility] Comment: are unreliable on urines unrefrig >2hrs or refrig >8hrs. Urine specimen (specimen) URINE / Unknown 12/31/2018 18:10 EDT 12/31/2018 18:15 EDT Christa Reyna PA-C URINALYSIS O RDERABLES [facility] [address] [place] [address] * COMPLETE BLOOD COUNT AND DIFFERENTIAL (12/31/2018 18:10 EDT) WBC 6.80 4.0 - 12.4 K/cmm 12/31/2018 18:37 [facility] RBC 4.25 3.86 - 5.04 M/cmm 12/31/2018 18:37 [facility] Hemoglobin 12.5 11.6 - 15.2 gm/dl 12/31/2018 18:37 [facility] HCT 38.0 34.9 - 44.4 % 12/31/2018 18:37 [facility] MCV 89 81 - 98 fl 12/31/2018 18:37 [facility] MCH 29.4 26.7 - 33.3 pg 12/31/2018 18:37 [facility] MCHC 32.9 32.1 - 35.9 gm/dl 12/31/2018 18:37 [facility] RDW-CV 12.4 <14.7 % 12/31/2018 18:37 [facility] RDW-SD 41.1 <50.4 fl 12/31/2018 18:37 [facility] 233 141 - 377 K/cmm 12/31/2018 18:37 [facility] MPV 10.7 9.5 - 12.7 fl 12/31/2018 18:37 [facility] % Neutrophils 56.4 % 12/31/2018 18:37 [facility] % Lymphocytes 30.7 % 12/31/2018 18:37 [facility] % Monocytes 7.8 % 12/31/2018 18:37 [facility] % Eosinophils 4.6 % 12/31/2018 18:37 [facility] % Basophils 0.4 % 12/31/2018 18:37 [facility] % Immature Grans 0.1 % 12/31/2018 18:37 [facility] ABS Neutrophils 3.83 2.20 - 8.85 K/cmm 12/31/2018 18:37 [facility] ABS Lymphs 2.09 1.09 - 3.30 K/cmm 12/31/2018 18:37 [facility] ABS Monocytes 0.53 0.1 - 0.8 K/cmm 12/31/2018 18:37 [facility] ABS Eosinophils 0.31 0.03 - 0.61 K/cmm 12/31/2018 18:37 [facility] ABS Basophils 0.03 0.01 - 0.11 K/cmm 12/31/2018 18:37 [facility] ABS Immature Grans 0.01 0 - 0.06 K/cmm 12/31/2018 18:37 [facility] Type of Diff: Automated 12/31/2018 18:37 [facility] Blood specimen (specimen) BLOOD SPECIMEN / Unknown 12/31/2018 18:10 EDT 12/31/2018 18:28 EDT Christa Reyna PA-C PACKAGES & D NA PROBE ORDERABLES [facility] [address] [place] [address] * POCT TEST, CLINITEK (12/31/2018 18:06 EDT) UPT Result Neg Neg 12/31/2018 18:09 EDT [facility] home health specialist ID [id number] 12/31/2018 18:09 EDT [facility] Comment:Test performed at [facility] Urine specimen (specimen) URINE / Unknown 12/31/2018 18:06 EDT 12/31/2018 18:09 EDT Christa Reyna PARehana POINT OF CAR E TEST ORDERABLES [facility] [address] [place] [address] * (ABNORMAL) POCT URINE DIPSTICK, CLINITEK (12/31/2018 17:28 EDT) Color YELLOW Yellow 12/31/2018 17:30 T [facility] Clarity, UA Clear Clear 12/31/2018 17:30 [facility] Glucose Neg Neg 12/31/2018 17:30 [facility] Bilirubin 1+(A) Neg 12/31/2018 17:30 [facility] Ketones Neg Neg 12/31/2018 17:30 [facility] Specific [place] 1.025 1.001 - 1.035 12/31/2018 17:30 [facility] Blood 2+(A) Neg 12/31/2018 17:30 [facility] pH 7.0 4.6 - 8.0 12/31/2018 17:30 [facility] Protein 1+(A) Neg 12/31/2018 17:30 [facility] Urobilinogen 0.2 0.2 - 1.0 mg/dL 12/31/2018 17:30 [facility] Nitrite Pos(A) Neg 12/31/2018 17:30 [facility] Leuk Esterase Trace(A) Neg 12/31/2018 17:30 EDT [facility] home health specialist ID [id number] 12/31/2018 17:30 EDT [facility] Comment:Test performed at [facility] Urine specimen (specimen) URINE / Unknown 12/31/2018 17:28 EDT 12/31/2018 17:30 EDT Christa Reyna PA-C POINT OF CAR E TEST ORDERABLES [facility] [address] [place] [address] documented in this encounter Visit Diagnoses Diagnosis Vaginal bleeding- Primary Other specified noninflammatory disorder of vagina documented in this encounter Administered Medications Inactive Administered Medications - up to 3 most recent administrations Medication Order MAR Action Action Date Dose Rate Site ketOROLAC (TORADOL) injection 15 mg 15 mg, intravenous, NOW X1, 1 dose, On 12/31/18 at 1745, STAT Given 12/31/2018 18:40 EDT 15 mg sodium chloride 0.9 % BOLUS 500 mL 500 mL, intravenous, NOW X1, 1 dose, On 12/31/18 at 1745, STAT New Bag 12/31/2018 18:27 EDT 500 mL documented in this encounter Discontinued Medications Medication Sig Discontinue Reason Start Date End Da te benzonatate (TESSALON) 100 mg capsule Take 1 Cap by mouth 3 times daily as needed for Cough. 12/20/2018 12/31/2018 levonorgestrel (PLAN B ONE STEP) 1.5 mg tabletIndications:Gener al counseling and advice for contraceptive management Take 1 Tab by mouth once for 1 dose. One 1.5 mg tablet as soon as possible within 72 hours of unprotected sexual intercourse 10/27/2017 12/31/2018 documented as of this encounter Active and Recently Administered Medications Times are shown in EDT. Scheduled Medication Order 12/29/2018 12/30/2018 12/31/2018 ketOROLAC (TORADOL) injection 15 mg (COMPLETED) 15 mg, intravenous, NOW X1, 1 dose, On 12/31/18 at 1745, STAT 1840 (Given - Provid er: Tash Youngblood RN) sodium chloride 0.9 % BOLUS 500 mL (COMPLETED) 500 mL, intravenous, NOW X1, 1 dose, On 12/31/18 at 1745, STAT 1827 (New Bag - Prov ider: Miranda Navarro MA)[id number] (Completed - Provider: Tash Youngblood RN) documented in this encounter Orders Nursing Count Last Ordered Date First Orde red Date INSERT PERIPHERAL IV 1 12/31/2018 documented in this encounter Care Teams Paper Processing Machine Helper Relationship Specialty Start Date End Date Unknown, Provider, PCP - General 12/31/18 documented as of this encounter
--- OUTSIDE RECORDS SUMMARY | 2024-01-03 13:09 | XMS_ITS | Encounter Summary ---
Author Organization [facility] Address [address] [place] [address] Care Team Providers Care Volleyball Assistant Coach Name Role Phone Chela Crook NP Primary Care Provider [phone] Encounter Details Date Type Department Care Team (Latest Contact Info) Description 06/02/2018 14:15 EDT - 06/02/2018 23:59 EDT Hospital Encounter [facility] [address] [place] [address] Unknown, Provider, Discharge Disposition: Home or Self Care Social [...] No 10/27/2017 documented as of this encounter Medications at Time of Discharge Medication Sig Dispensed Refills Start Date End Date levonorgestrel (PLAN B ONE STEP) 1.5 mg tabletIndications:Genera l counseling and advice for contraceptive management Take 1 Tab by mouth once for 1 dose. One 1.5 mg tablet as soon as possible within 72 hours of unprotected sexual intercourse 1 Tab 5 10/27/2017 12/31/2018 documented as of this encounter Discharge Disposition Disposition Code Departure Means Destination Home or Self Shelter documented in this encounter Plan of Treatment Not on file documented as of this encounter Visit Diagnoses Not on filedocumented in this encounter Care Teams Volleyball Assistant Coach Relationship Specialty Start Date End Date Chela Crook NP [address] [place] [phone] PCP - General 06/04/17 12/30/18 documented as of this encounter
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
--- OUTSIDE RECORDS SUMMARY | 2024-01-03 13:09 | XMS_ITS | Encounter Summary ---
Author Organization [facility] Address [address] [place] [address] Care Team Providers Care Coordinator Hotels Name Role Phone Chela Crook NP Primary Care Provider [phone] Reason for Visit * Reason Comments Sinus Problems frontal and back hea daches treated for sinus infections a couple times a year. vision can be blurry. also has a history of migraines. no imaging. sinus OTC doesnt help. tried flonase no help. does rinses but causes a headach. * Consult (Routine) - Specialty Report Received Specialty Diagnoses / Procedures Referred By Marvin vo Referred To Contact Otolaryngology Diagnoses Chronic nasal congestion Chela Crook NP [address] [place] [phone] Benjie Bedolla MD [address] [place] [phone] Referral ID Status Reason Start Date Expiration Date Visits Requested Visits Authorized [id number] Specialty Report Received Specialty Services Required 10/27/2017 1 1 Encounter Details Date Type Department Care Team (Late st Contact Info) Description 11/30/2017 10:50 EDT Office Visit [facility] ENT - [address] [address] Benjie Bedolla MD [address] [place] [phone] Nasal congestion (Primary Dx) Social History Tobacco Use Types Packs/Day Years [...] Sign Reading Time Taken Comments Blood Pressure 109/68 11/30/2017 1055 EDT Pulse 59 11/30/2017 1055 EDT Temperature - - Respiratory Rate - - Oxygen Saturation - - Inhaled Oxygen Concentration - - Weight 81.6 kg (180 lb) 11/30/2017 1055 EDT Height 171.5 cm (5' 7.5) 11/30/2017 1055 EDT Body Mass Index 27.78 11/30/2017 1055 EDT [...] as of this encounter Progress Notes * Benjie Bedolla MD - 11/30/2017 1050 EDT This is a consult from Chela Crook for evaluation of nasal congestion. Dear Ms Crook: History of Present Illness: This is a 22-year-old female with a long history of bilateral chronic nasal congestion and headaches. She has a history of migraines with intermittent frontal and back headaches with associated blurry vision, treated for sinus infection once or twice a year. She has tried Flonase nasal spray and nasal saline rinses, and [id number] medications without significant benefit. Her symptoms are equal bilaterally, constant. No known modifying factors or other associated signs or symptoms. Past Medical History: Current Medications nclude levonorgestrel, lisinopril and metoprolol. Past medical history significant for migraines, congestive heart failure, history of myocarditis ininfancy. Previous Surgeries onclude central venous catheter and . Family history significant for drug abuse, mental illness, anxiety disorder. Social History: The patient is a nonsmoker. Review of systems significant for headaches, dizziness, light sensitivity, anxiety, depression. Otherwise, negative for a complete review of all systems. Physical Exam: General: Well-developed, well-nourished, alert, oriented, cooperative, adult female in no acute distress. Normal voice. Vital Signs: Height 67-1/2 inches, weight 180. Blood pressure 109/68, pulse 59. Pain level of 7 in the abdomen. Face is normal without lesions. No tenderness to palpation over the sinuses. Salivatory glands are normal. Facial strength is symmetric. Eye exam is normal. Ears: External ears are normal, canals are clear, tympanic membranes are normal. Nose: Nasal dorsum is midline. The airway is patent. There is mild right inferior nasal septal deviation. Oral cavity and posterior pharynx are clear. Neck: No pathologic lymphadenopathy. Trachea is midline. Thyroid is normal. Chest is clear to auscultation. Heart: Regular rate and rhythm. Procedure: Fiberoptic nasal endoscopy was performed with topical anesthesia. This again reveals mild inferior nasal septal deviation off the maxillary crest. Both middle meati are clear. No polyps orpurulence. There is a patent nasal airway bilaterally. The nasopharynx is clear. No adenoid hypertrophy. The base of the tongue, epiglottis, vallecula, piriform sinuses, false vocal cords and true vocal cords are within normal limits. No significant nasal valving. No improvement with the Brown maneuver. Impression: Chronic nasal congestion, unclear etiology. The patient does have a small nose. Plan: Consider trial of a different steroid nasal spray, antihistamine nasal spray, oral decongestants, acupuncture. If the patient fails complete medical therapy, may consider septoplasty and turbinate reduction. Instruction material on this was given to the patient. Followup with ENT p.r.n. Sincerely, CC: Chela Crook APRN documented in this encounter Plan of Treatment Not on file documented as of this encounter Visit Diagnoses Diagnosis Nasal congestion- Primary Other diseases of nasal cavity and sinuses documented in this encounter Care Teams Coordinator Hotels Relationship Specialty Start Date End Date Chela Crook NP [address] [place] [phone] PCP - General 3/23/18 10/18/19 documented as of this encounter
--- OUTSIDE RECORDS SUMMARY | 2024-01-03 13:09 | XMS_ITS | Encounter Summary ---
Author Organization [facility] Address [address] [place] [address] Care Team Providers Care Electrical Service Technician Name Role Phone Chela Crook NP Primary Care Provider [phone] Encounter Details Date Type Department Care Team (Late st Contact Info) Description 08/11/2017 Historical Results Only [facility] Radiology Results [address] [place] [address] Ventura Frye MD Social History Tobacco Use Types Packs/Day Years Used Date Smoking Tobacco: Never Smokeless Tobacco: Never Sex and Gender Information Value Date Recorded Sex Assigned at Not on file Gender Identity Not on file Sexual Orientation Not on file documented as of this encounter Plan of Treatment Not on file documented as of this encounter Procedures Procedure Name Priority Date/Time Associated Diagnosis Comments CT ABDOMEN PELVIS WO CONTRAST 08/11/2017 18:52 EDT documented in this encounter Results * CT ABDOMEN PELVIS WO CONTRAST (08/11/2017 18:52 EDT) Anatomical Region Laterality Modality Other 08/11/2017 18:5 2 EDT Narrative 08/11/2017 18:52 EDT ? EXAM: CAT SCAN/ABDOMEN PELVIS WITHOUT CON EX. D/ (182) ? CLINICAL INFORMATION: ?INCISIONAL HERNIA LLQ ? EXAM: ? CT Abdomen and Pelvis Without Intravenous Contrast ? CLINICAL HISTORY: ? 22 years old, female; Pain; Abdominal pain; Prior surgery; ? Additional info: ? Incisional hernia llq ? TECHNIQUE: ? Axial computed tomography images of the abdomen and pelvis ? without intravenous contrast. ??All CT scans at this facility use ? one or more dose reduction techniques, viz.: automated exposure ? control; ma/kV adjustment per patient size (including targeted ? exams where dose is matched to indication; i.e. head); or ? iterative reconstruction technique. ? COMPARISON: ? US - TRANSVAGINAL - SUPERVISOR FACEPIECE LINE 2017-03-21 17:44 ? FINDINGS: ? Limitations: ??The study is limited due to lack of oral and IV ? contrast. ? Lung bases: ??The visualized lung bases are within normal ? limits. ? Heart: ??The visualized portions of the heart and pericardium ? are unremarkable. ?ABDOMEN: ? Liver: ??The liver is unremarkable. ? Gallbladder and bile ducts: ??The gallbladder is unremarkable. ? No calcified stones. ??No ductal dilation. ? Pancreas: ??The pancreas is unremarkable. ??No ductal dilation. ? Spleen: ??The spleen is within normal limits. ? Adrenals: ??The adrenal glands are within normal limits. ? Kidneys and ureters: ??There is a vague small calcification ? within the right kidney in the lower pole measuring 4 mm. ??This ? is nonobstructing. ??There is mild hydroureteronephrosis of the ? left kidney. ??The left kidney is obstructed secondary to a ? proximal ureteral calculus measuring 5 mm. ? Stomach and bowel: ??There is no evidence of bowel obstruction. ?No mucosal thickening. ?PELVIS: ? Appendix: ??The appendix is visualized and is within normal ? limits. ? Bladder: ??The urinary bladder is unremarkable. ??No stones. ? Reproductive: ??The uterus and ovaries are within normal limits. ?ABDOMEN and PELVIS: ? Intraperitoneal space: ??Unremarkable. ??No free air. ??No ? significant fluid collection. ? Bones/joints: ??There is degenerative disc disease at L5-S1. ? No acute fracture. ??No dislocation. ? Soft tissues: ??There is a small fat containing umbilical ? PAGE 1 ? Signed Report ? (CONTINUED) ? hernia. ? Vasculature: ??The aorta is within normal limits. ??No abdominal ? aortic aneurysm. ? Lymph nodes: ?? No enlarged lymph nodes. ? IMPRESSION: ? Mild hydroureteronephrosis of the left kidney secondary to a ? proximal ureteral calculus measuring 5 mm. ??Right ? nephrolithiasis as above. ? REPORT SIGNED IN OTHER VENDOR SYSTEM 08/11/2017 ?Reported By: Chau Sotelo MD ? CC: ? Transcribed Date/Time: 08/11/2017 (9432) ? Car Cooper: ? Printed Date/Time: 09/02/2018 (1340) ? PAGE 2 ? Signed Report ? Procedure Note Chau Sotelo MD - 01/19/2019 EXAM: CAT SCAN/ABDOMEN PELVIS WITHOUT CON EX. D/ (1826) CLINICAL INFORMATION: ?INCISIONAL HERNIA LLQ EXAM: CT Abdomen and Pelvis Without Intravenous Contrast CLINICAL HISTORY: 22 years old, female; Pain; Abdominal pain; Prior surgery; Additional info: ? Incisional hernia llq TECHNIQUE: Axial computed tomography images of the abdomen and pelvis without intravenous contrast. All CT scans at this facility use one or more dose reduction techniques, viz.: automated exposure control; ma/kV adjustment per patient size (including targeted exams where dose is matched to indication; i.e. head); or iterative reconstruction technique. COMPARISON: US - TRANSVAGINAL - SUPERVISOR FACEPIECE LINE 2017-03-21 17:44 FINDINGS: Limitations: The study is limited due to lack of oral and IV contrast. Lung bases: The visualized lung bases are within normal limits. Heart: The visualized portions of the heart and pericardium are unremarkable. ABDOMEN: Liver: The liver is unremarkable. Gallbladder and bile ducts: The gallbladder is unremarkable. No calcified stones. No ductal dilation. Pancreas: The pancreas is unremarkable. No ductal dilation. Spleen: The spleen is within normal limits. Adrenals: The adrenal glands are within normal limits. Kidneys and ureters: There is a vague small calcification within the right kidney in the lower pole measuring 4 mm. This is nonobstructing. There is mild hydroureteronephrosis of the left kidney. The left kidney is obstructed secondary to a proximal ureteral calculus measuring 5 mm. Stomach and bowel: There is no evidence of bowel obstruction. No mucosal thickening. PELVIS: Appendix: The appendix is visualized and is within normal limits. Bladder: The urinary bladder is unremarkable. No stones. Reproductive: The uterus and ovaries are within normal limits. ABDOMEN and PELVIS: Intraperitoneal space: Unremarkable. No free air. No significant fluid collection. Bones/joints: There is degenerative disc disease at L5-S1. No acute fracture. No dislocation. Soft tissues: There is a small fat containing umbilical PAGE 1 Signed Report (CONTINUED) hernia. Vasculature: The aorta is within normal limits. No abdominal aortic aneurysm. Lymph nodes: No enlarged lymph nodes. IMPRESSION: Mild hydroureteronephrosis of the left kidney secondary to a proximal ureteral calculus measuring 5 mm. Right nephrolithiasis as above. REPORT SIGNED IN OTHER VENDOR SYSTEM 08/11/2017 Reported By: Chau Sotelo MD CC: Transcribed Date/Time: 08/11/2017 (6586) Car Cooper: Printed Date/Time: 09/02/2018 (7311) PAGE 2 Signed Report Ventura Frye MD IMG CT ORDERABLES documented in this encounter Visit Diagnoses Not on filedocumented in this encounter Care Teams Electrical Service Technician Relationship Specialty Start Date End Date Chela Crook NP [address] [place] [phone] PCP - General 06/04/17 12/30/18 documented as of this encounter
--- OUTSIDE RECORDS SUMMARY | 2024-01-03 13:09 | XMS_ITS | Encounter Summary ---
Author Organization [facility] Address [address] [place] [address] Care Team Providers Care High Value Associate Name Role Phone Chela Crook NP Primary Care Provider [phone] Reason for Referral * Consult (Routine) - Closed Specialty Diagnoses / Procedures Referred By Contac t Referred To Contact Diagnoses Activity involving residential relocation Chela Crook NP [address] [phone] Referral ID Status Reason Start Date Expiration Date V isits Requested Visits Authorized [id number] Closed Specialty Services Required 12/14/2018 1 1 Question Answer What areas would you like the CHT to focus on? Automobile Upholstery Trim Installer (If [facility] primary care patient, please refer to [id number] Home Care Management for Social Work support instead) If Yes to Automobile Upholstery Trim Installer, Please Select from the Following: Other - Please Comment What goals would you like the patient to meet? pt has moved out of the area and up to [place], needs new PCP; please check in with pt and ensure appropriate supports are in place Encounter Details Date Type Department Care Team (Late st Contact Info) Description 12/14/2018 Orders Only [facility] Family Medicine - [place] 130 [facility] [address] [address] Chela Crook NP 130 [facility] [address] [phone] Activity involving residential relocation (Primary Dx) Social History Tobacco Use Types [...] as of this encounter Plan of Treatment Scheduled Referrals Name Type Priority Associated Diagnoses Orde r Schedule AMB CONS/FOLLOW UP COMMUNITY [facility] TEAM Outpatient Referral Routine Activity involving residential relocation Ordered: 12/14/2018 documented as of this encounter Visit Diagnoses Diagnosis Activity involving residential relocation- Primary Activities involving residential relocation documented in this encounter Care Teams High Value Associate Relationship Specialty Start Date End Date Chela Crook NP [address] [place] [phone] PCP - General 06/04/17 12/30/18 documented as of this encounter
--- OUTSIDE RECORDS SUMMARY | 2024-01-03 13:09 | XMS_ITS | Encounter Summary ---
Author Organization [facility] Address [address] [place] [address] Care Team Providers Care Wagon Driller Name Role Phone Chela Crook NP Primary Care Provider [phone] Reason for Visit * Reason Comments Cough Recent b/l ear infec tions per pt. Completed steroid course. Now w/ upper resp s/s. Cough, runny nose, fever, congestion, L ear pain. Encounter Details Date Type Department Care Team (Late st Contact Info) Description 12/20/2018 16:42 EDT - 12/20/2018 18:10 EDT Emergency [facility] Emergency Department - [address] [id number] De Haq MD [address] [facility], [address] [place] [phone] Tate Go, CHIKA [address], [place] [id number] Emergency, MD [facility] Viral URI with cough (Primary Dx) Discharge Disposition: Home or Self [...] Sign Reading Time Taken Comments Blood Pressure 128/88 12/20/20181651 EDT Pulse 92 12/20/20181651 EDT Temperature 37 ??C (98.6 ??F) 12/20/20181651 EDT Respiratory Rate 16 12/20/20181651 EDT Oxygen Saturation 98% 12/20/20181651 EDT Inhaled Oxygen Concentration - - Weight 74.8 kg (165 lb) 12/20/20181651 EDT Height 172.7 cm (5' 8) 12/20/20181651 EDT Body Mass Index 25.09 12/20/20181651 EDT documented in this encounter Functional Status [...] as of this encounter Discharge Diagnoses Diagnosis J06.9 Acute upper respiratory infection, unspecified-J06.9[ICD-10-CM] R05 Cough-R05[ICD-10-CM] R09.81 Nasal congestion-R09.81[ICD-10-CM] J34.89 Other specified disorders of nose and nasal sinuses-J34.89[ICD-10-CM] I42.9 Cardiomyopathy, unspecified-I42.9[ICD-10-CM] I11.0 Hypertensive heart disease with heart failure-I11.0[ICD-10-CM] I50.9 Heart failure, unspecified-I50.9[ICD-10-CM] F17.210 Nicotine dependence, cigarettes, uncomplicated-F17.210[ICD-10-CM] documented in this encounter Discharge Instructions * Discharge Instructions* De Haq MD, MD - 12/20/2018 17:59 EDT Keep yourself well hydrated. Use prescription as indicated. Return if symptoms worsen or new symptoms develop. Use Tylenol and/or Advil for discomfort. Thank you for using [facility] emergency department for your healthcare needs. * Attachments The following attachments cannot be sent through Care Everywhere. * URI (Upper Respiratory Infection): Viral (Peruvian) documented in this encounter Medications at Time of Discharge Medication Sig Dispensed Refills Start Date End Date benzonatate (TESSALON) 100 mg capsule Take 1 Cap by mouth 3 times daily as needed for Cough. 12 Cap 12/20/2018 12/31/2018 levonorgestrel (PLAN B ONE STEP) 1.5 mg tabletIndications:Genera l counseling and advice for contraceptive management Take 1 Tab by mouth once for 1 dose. One 1.5 mg tablet as soon as possible within 72 hours of unprotected sexual intercourse 1 Tab 5 10/27/2017 12/31/2018 sertraline (ZOLOFT) 25 mg tablet Take 25 mg by mouth daily. 01/11/2019 documented as of this encounter Ordered Prescriptions Prescription Sig Dispensed Refills Start Date End Da te benzonatate (TESSALON) 100 mg capsule Take 1 Cap by mouth 3 times daily as needed for Cough. 12 Cap 12/20/2018 12/31/2018 documented in this encounter Discharge Disposition Disposition Code Departure Means Destination Home or Self Care documented in this encounter ED Notes * Ceci Hurley RN - 12/20/2018 1809 EDT Pt provided with tessalon pearle prescription. Pt instructed to F/U with PCP as needed and to take APAP & Advil for discomfort. Pt now ready for DC. * De Haq MD, MD - 12/20/2018 1750 EDT DOS: 12/20/2018 Chief Complaint Patient presents with ??? Cough Recent b/l ear infections per pt. Completed steroid course. Now w/ upper resp s/s. Cough, runny nose, fever, congestion, L ear pain. HPI I, Siobhan Garcia, am scribing for De Haq MD while he is personally performing the service. Siobhan Garcia 12/20/2018 17:50 Mary Porras is a 23 y.o. female with a history of cardiomyopathy who presents for persistent productive cough x1 week. She states she has tried every cold medicine and a course of steroids without relief. She also reports associated nasal congestion and rhinorrhea. She notes she had a double ear infection last week and reports her entire immediate family has URI symptoms currently. Patient now presents for further evaluation and treatment. Patient otherwise denies additional symptoms, as noted in ROS. Social History- smokes 2-3 cigarettes daily, rare EtOH consumption, no current drug use The history is provided by the patient and medical records. Review of Systems Review of Systems Constitutional: Negative for chills and fever. HENT: Positive for congestion and rhinorrhea. Eyes: Negative for pain. Respiratory: Positive for cough. Negative for shortness of breath. Cardiovascular: Negative for chest pain. Gastrointestinal: Negative for abdominal pain and nausea. Genitourinary: Negative for flank pain. Musculoskeletal: Negative for back pain. Skin: Negative for rash and wound. Allergic/Immunologic: Negative for immunocompromised state. Neurological: Negative for headaches. Psychiatric/Behavioral: Negative for confusion. All other systems reviewed and are negative. The patient's past medical, family and social history was reviewed and updated as needed. No Known Allergies Vital Signs Temp: 37 ??C (98.6 ??F) Temp src: Temporal Pulse: 92 Resp: 16 SpO2: 98 % BP: 128/88 BP MAP: 94 mm Hg BP Device: BP Machine Patient Position: Sitting BP Cuff Location: Right arm O2 Device: None (Room air) Physical Exam Constitutional: She is oriented to person, place, and time. She appears well- developed and well-nourished. No distress. HENT: Head: Normocephalic and atraumatic. Mouth/Throat: Oropharynx is clear and moist. No oropharyngeal exudate. No erythema or exudates Normal TMs without erythema Eyes: EOM are normal. Right eye exhibits no discharge. Left eye exhibits no discharge. Neck: Normal range of motion. Neck supple. No tracheal deviation present. Cardiovascular: Normal rate, regular rhythm and normal heart sounds. No murmur heard. Pulmonary/Chest: Effort normal and breath sounds normal. No respiratory distress. No wheezes, rales, or rhonchi Abdominal: Soft. Bowel sounds are normal. She exhibits no distension. There is no tenderness. Thereis no rebound. Musculoskeletal: Normal range of motion. She exhibits no edema, tenderness or deformity. Lymphadenopathy: She has no cervical adenopathy. Neurological: She is alert and oriented to person, place, and time. Skin: Skin is warm and dry. She is not diaphoretic. Psychiatric: She has a normal mood and affect. Her behavior is normal. Nursing note and vitals reviewed. Procedures: None ED COURSE A medical screening exam was performed. The patient is a 23 y.o. female with a history of cardiomyopathy who presents for persistent productive cough x1 week. Vital Signs: BP 128/88 (BP Cuff Location: Right arm, Patient Position: Sitting) Pulse 92 Temp 37 ??C (98.6 ??F) (Temporal) Resp 16 Ht 172.7 cm (68) Wt 74.8 kg (165 lb) SpO2 98% BMI 25.09 kg/m?? Physical exam as above. Clear lungs, clear oropharynx, and normal TMs. Differential diagnosis includes but is not limited to: pneumonia, viral uri, sinusitis, pharyngitis, allergy Patient's past medical record reviewed by myself. Discharged with Tessalon pearls for viral URI. Prior to discharge usual and customary precautions were reviewed with the patient including follow-up instructions and reasons to return to the Emergency Department if condition worsens, does not improve as expected, or other new concerns arise. Final diagnoses: Viral URI with cough DISPOSITION: Discharged The patient's pain was managed to an adequate level weighing risk vs. benefit of further medications. Upon departure from the Emergency Department, the patient's pain was 0 on a zero to ten scale. Any further pain treatment will be at the discretion of the provider following up with the patient based on their clinical assessment. Condition at departure from the Emergency Department: Stable PCP: Chela Crook [facility] Number of Diagnoses or Management Options Amount and/or Complexity of Data Reviewed Review and summarize past medical records: yes This documentation is recorded by Siobhan Garcia acting as Scribe under the direction and presence of De Haq MD. De Haq MD: I personally performed the services recorded by the scribe in my presence. I confirm the scribe's documentation has been reviewed by me to accurately and completely record my work,treatment, procedures, and medical decision making. 12/20/2018 17:50 No flowsheet data found. documented in this encounter Plan of Treatment Not on file documented as of this encounter Visit Diagnoses Diagnosis Viral URI with cough- Primary Acute upper respiratory infections of unspecified site documented in this encounter Historical Medications * This list may reflect changes made after this encounter. Medication Sig Dispensed Refills Start Date End Date sertraline (ZOLOFT) 25 mg tablet Take 25 mg by mouth daily. 01/11/2019 added in this encounter Care Teams Wagon Driller Relationship Specialty Start Date End Date Chela Crook NP [address] [place] [phone] PCP - General 06/04/17 12/30/18 documented as of this encounter
--- OUTSIDE RECORDS SUMMARY | 2024-01-03 13:09 | XMS_ITS | Encounter Summary ---
Author Organization [facility] Address [address] [place] [address] Care Team Providers Care Electrician Assistant Name Role Phone Chela Crook NP Primary Care Provider [phone] Reason for Visit * Reason Comments Medications Refill Here for Zoloft Rx, unable to see pcp because patient moved, Encounter Details Date Type Department Care Team ([facility] Contact Info) Description 12/05/2018 10:01 EDT - 12/05/2018 13:04 EDT Emergency [facility] Emergency Department - Main [place] [address] [place] [address] Erma Nguyen PA-C [address] [place] [address] Emergency, MD [facility] Medication refill (Primary Dx) Discharge Disposition: Home or Self [...] Sign Reading Time Taken Comments Blood Pressure 106/66 12/05/2018 1016 EDT Pulse 84 12/05/2018 1016 EDT Temperature 37.1 ??C (98.8 ??F) 12/05/2018 1016 EDT Respiratory Rate 16 12/05/2018 1016 EDT Oxygen Saturation 100% 12/05/2018 1016 EDT Inhaled Oxygen Concentration - - Weight 75.8 kg (167 lb) 12/05/2018 1016 EDT Height 172.7 cm (5' 8) 12/05/2018 1016 EDT Body Mass Index 25.39 12/05/2018 1016 EDT documented in this encounter Functional Status [...] as of this encounter Discharge Diagnoses Diagnosis Z76.0 Encounter for issue of repeat prescription-Z76.0[ICD-10-CM] F41.9 Anxiety disorder, unspecified-F41.9[ICD-10-CM] R10.30 Lower abdominal pain, unspecified-R10.30[ICD-10-CM] I50.9 Heart failure, unspecified-I50.9[ICD-10-CM] I10 Essential (primary) hypertension-I10[ICD-10-CM] Z79.899 Other terminal superintendent (current) drug therapy-Z79.899[ICD-10-CM] documented in this encounter Discharge Instructions * Discharge Instructions* Erma Nguyen - 12/05/2018 12:33 EDT You were evaluated in the Emergency Department. Your test is negative. Take the Sertraline as prescribed. As we discussed, the Emergency Department is not the appropriate place to get refills so further medication refills should be done through a primary care provider. See the list of Primary Care providers provided or call the [facility] listed to coordinate primary care follow-up. Return to the Emergency Department if you have fever, chest pain, difficulty breathing, severe abdominal pain, plans to harm yourself/others or any other concerning symptoms. documented in this encounter Medications at Time of Discharge Medication Sig Dispensed Refills Start Date End Date ethinyl estradiol-etonogestrel (NUVARING) 0.12-0.015 mg/24 hr vaginal ringIndications:Encounte r for surveillance of vaginal ring hormonal contraceptive device Start the Balwinder after period starts. Insert one (1) ring vaginally and leave in place for three (3) weeks, then remove for one (1) week. 3 each 1 06/27/2018 12/07/2018 levonorgestrel (PLAN B ONE STEP) 1.5 mg tabletIndications:Astrid razo counseling and advice for contraceptive management Take 1 Tab by mouth once for 1 dose. One 1.5 mg tablet as soon as possible within 72 hours of unprotected sexual intercourse 1 Tab 5 10/27/2017 12/31/2018 sertraline (ZOLOFT) 25 mg tablet Take 1 Tab by mouth daily for 14 days. 14 Tab 12/05/2018 12/19/2018 documented as of this encounter Ordered Prescriptions Prescription Sig Dispensed Refills Start Date End Da te sertraline (ZOLOFT) 25 mg tablet Take 1 Tab by mouth daily for 14 days. 14 Tab 12/05/2018 12/19/2018 documented in this encounter Discharge Disposition Disposition Code Departure Means Destination Home or Self Care documented in this encounter Progress Notes * Phu Lynch - 12/05/2018 1248 EDT Mary Porras is a 23 y.o. female seen in the [facility] Emergency Department 12/05/18. As part of routine care Mary Porras was screened for substance use and depression. The results and interventions are as follows: The AUDIT-C was not administered because the patient reported using alcohol monthly during the lastyear. The score demonstrated no or minimal risk of alcohol use problems, therefore we recommend normal screening . The Cannabis Intervention Screen (CIS) was not administered because the patient reported using marijuana monthly during the last year. The results of the CIS demonstrated no or minimal risk of Cannabis Use Disorder. Therefore we recommend normal screening . The DAST 10 was not administered because the patient reported using other drugs never during the last year. DAST score demonstrated no or minimal risk of substance use problems, therefore we recommend normal screening . The depression screen completed was the PHQ-2 and demonstrated no or minimal risk of clinical depression. Suicidality was not reported. Therefore we recommend normal screening . The DAVID-7 was completed and demonstrated high risk of generalized anxiety disorder. Therefore we recommend brief intervention during this visit. Provided brief intervention for tobacco use and anxiety. Pt provided with info regarding PCPs accepting new patients. MARTINA Willams #[id number] documented in this encounter ED Notes * Nathalie Terry RN - 12/05/2018 1247 EDT Pt was discharged per plan. AVS and Rx reviewed; pt verbalized understanding. Pt was ambulatory andin NAD upon discharge. Pt to establish a new PCP * Sintia Madrid RN - 12/05/2018 1217 EDT Independent to BR. Urine sample obtained and POCT urine test performed. * Erma Nguyen - 12/05/2018 1216 EDT DOS: 12/05/2018 Chief Complaint Patient presents with ??? Medications Refill Here for Zoloft Rx, unable to see pcp because patient moved, HPI The patient is a 23 y.o. female who presents today with Medications Refill (Here for Zoloft Rx, unable to see pcp because patient moved, ) HPI 23 yo F hx anxiety presents requesting medication refill. Patient states she has been on 25 mg of sertraline daily for about 4 to 5 months. She ran out about 5 days ago. She states she has been feeling more anxious, irritable and had mood swings and a panic attack at work today. She recently moved to [place] and has not been able to establish care yet with a primary care provider and has not been able get a refill on her medication. She denies any other medications. Of note her last normalperiod was the end of October, she took Plan B a few weeks ago and has not had her menses since then. She has had some mild intermittent lower abdominal cramping. Review of Systems Review of Systems Constitutional: Negative for chills and fever. Respiratory: Negative for shortness of breath. Cardiovascular: Negative for chest pain. Gastrointestinal: Negative for diarrhea, nausea and vomiting. Genitourinary: Negative for dysuria and vaginal bleeding. Skin: Negative for rash. The patient's past medical, family and social history was reviewed and updated as needed. No Known Allergies Vital Signs Temp: 37.1 ??C (98.8 ??F) Temp src: Temporal Pulse: 84 Resp: 16 SpO2: 100 % BP: 106/66 BP Device: BP Machine Patient Position: Sitting BP Cuff Location: Left arm O2 Device: None (Room air) Physical Exam Constitutional: She appears well-developed and well-nourished. No distress. HENT: Head: Normocephalic and atraumatic. Cardiovascular: Normal rate and regular rhythm. Pulmonary/Chest: Effort normal and breath sounds normal. Abdominal: Soft. There is no tenderness. Musculoskeletal: She exhibits no edema. Neurological: She is alert. Skin: Skin is warm and dry. She is not diaphoretic. Psychiatric: She has a normal mood and affect. Nursing note and vitals reviewed. RESULTS EKG orders: None Radiology orders: None Procedures ED COURSE A medical screening exam was performed. 23 yo F hx anxiety presents requesting medication refill. Will give short course of pt's Sertraline. She started on 25 mg initially, did not start at lower dose so no concern with restarting at this dose. Discussed with pt that the ED is not the appropriate place for routine medication refills and she states she is working on establishing care with a PCP for further refills. Will provide with list of PCPs accepting patients. Will check UPT prior to prescribing medication. UPT negative. Patient educated on concerning symptoms for which to return. Final diagnoses: Medication refill DISPOSITION: Discharged The patient's pain was managed [...] departure from the Emergency Department: Good PCP: Chela Crook MDM Number of Diagnoses or Management Options Medication refill: Amount and/or Complexity of Data Reviewed Review and summarize past medical records: yes Dr. Haq was available for supervision 12/06/2018 16:36 No flowsheet data found. * Sintia Madrid, WILLOW - 12/05/2018 1204 EDT GABRIELLA Valadez at BS. documented in this encounter Plan of Treatment Not on file documented as of this encounter Procedures Procedure Name Priority Date/Time Associated Diagnosis Comments POCT TEST, CLINITEK STAT 12/05/2018 12:16 EDT documented in this encounter Results * POCT TEST, CLINITEK (12/05/2018 12:16 EDT) UPT Result Neg Neg 12/05/2018 12:21 EDT [facility] mild disabilities teacher ID [id number] 12/05/2018 12:21 EDT [facility] Comment:Test performed at [facility] Department Urine specimen (specimen) URINE / Unknown 12/05/2018 12:16 EDT 12/05/2018 12:21 EDT Erma Nguyen PA-C POINT OF CARE TEST ORDERABLES [facility] [address] [place] [address] documented in this encounter Visit Diagnoses Diagnosis Medication refill- Primary Issue of repeat prescriptions documented in this encounter Discontinued Medications Medication Sig Discontinue Reason Start Date End Da te sertraline (ZOLOFT) 25 mg tabletIndications:Mixed anxiety depressive disorder Take 1 tablet by mouth daily. Therapy completed 06/27/2018 12/05/2018 documented as of this encounter Care Teams Electrician Assistant Relationship Specialty Start Date End Date Chela Crook NP [address] [place] [phone] PCP - General 06/04/17 12/30/18 documented as of this encounter
--- OUTSIDE RECORDS SUMMARY | 2024-01-03 13:09 | XMS_ITS | Encounter Summary ---
Author Organization [facility] Address [address] [place] [address] Care Team Providers Care Last Repairer Name Role Phone Chela Crook NP Primary Care Provider [phone] Reason for Visit * Reason Onset Date Comments Other 05/27/2018 Encounter Details Date Type Department Care Team (Late st Contact Info) Description 05/27/2018 Telephone [facility] [address] [address] Chela Crook NP [address] [phone] Other Social History Tobacco Use Types Packs/Day Years [...] encounter Miscellaneous Notes * Telephone Encounter - Janice Souza - 05/27/2018 2336 EDT Patient called her power plant assistant to ask for written clearance to be sent to Dr. Phoenix. The power plant assistant has decided that the patient should be seen by them. She has an appointment on 05-31-18 @ 1:00pm.She would like to keep her surgery scheduled on 06-02-18. She states the power plant assistant will fax us all the notes from her appointment on Wednesday. * Telephone Encounter - Janice Souza - 05/27/[address] Phoenix needs to have written documentation of clearance from the power plant assistant before scheduling the surgery. This can be directly faxed to our office at [phone]. Patient is scheduling an elective umbilical hernia repair. Please transfer the call to Janice. * Telephone Encounter - Jolene Moscoso - 05/27/2018 1152 EDT Spoke to patient on the phone she states that she called [facility] Patch Press Operator and was told that it's a preexisting condition and that they didn't feel that she needed to see them. She saysthey didn'tseem to worried about it. * Telephone Encounter - Chela Crook Aprn - 05/27/2018 0903 EDT Pt needs pre-op cardiac clearance for hernia repair so please check in with patient to see if she has secured a visit with her power plant assistant at [facility]. Please keep me updated. Thanks. documented in this encounter Plan of Treatment Not on file documented as of this encounter Visit Diagnoses Not on filedocumented in this encounter Care Teams Last Repairer Relationship Specialty Start Date End Date Chela Crook NP [address] [place] [phone] PCP - General 06/04/17 12/30/18 documented as of this encounter
--- OUTSIDE RECORDS SUMMARY | 2024-01-03 13:09 | XMS_ITS | Encounter Summary ---
Author Organization [facility] Address [address] [place] [address] Care Team Providers Care Property Assessment Monitor Name Role Phone Chela Crook NP Primary Care Provider [phone] Reason for Visit * Reason Onset Date Comments No Show 04/22/2018 Encounter Details Date Type Department Care Team (Late st Contact Info) Description 04/22/2018 Telephone [facility] [address] [address] Chela Crook NP [address] [phone] No Show Social History Tobacco [...] encounter Miscellaneous Notes * Telephone Encounter - Bernard Camacho - 04/22/2018 1600 EST No show # 2 Left message for patient regarding the appointment she missed with Chela Crook NP on 01/12/18. The patient was evaluated on 01/31/18, but I wanted to inform her of the no show policy so that she would be aware of the implications of no show appointments in the future. I sent the patient a letter outlining the no show policy. Bernard Camacho documented in this encounter Plan of Treatment Not on file documented as of this encounter Visit Diagnoses Not on filedocumented in this encounter Care Teams Property Assessment Monitor Relationship Specialty Start Date End Date Chela Crook NP [address] [place] [phone] PCP - General 06/04/17 12/30/18 documented as of this encounter
--- OUTSIDE RECORDS SUMMARY | 2024-01-03 13:09 | XMS_ITS | Encounter Summary ---
Author Organization [facility] Address [address] [place] [address] Care Team Providers Care Loading Manager Name Role Phone Chela Crook NP Primary Care Provider [phone] Encounter Details Date Type Department Care Team (Latest Contact Info) Description 08/11/2017 21:08 EDT - 08/11/2017 23:59 EDT Hospital Encounter [address] [address] Unknown, Provider, Discharge Disposition: Home or Self Care Social History Tobacco Use Types Packs/Day Years Used Date Smoking Tobacco: Never Smokeless Tobacco: Never Sex and Gender Information Value Date Recorded Sex Assigned at Not on file Gender Identity Not on file Sexual Orientation Not on file documented as of this encounter Medications at Time of Discharge Medication Sig Dispensed Refills Start Date End Date lisinopril (PRINIVIL, ZESTRIL) 2.5 mg tablet Take 2.5 mg by mouth daily. 05/24/2018 metoprolol XL (TOPROL-XL) 25 mg tablet Take 25 mg by mouth daily. 05/24/2018 documented as of this encounter Discharge Disposition Disposition Code Departure Means Destination Home or Self Retirement documented in this encounter Plan of Treatment Not on file documented as of this encounter Visit Diagnoses Not on filedocumented in this encounter Care Teams Loading Manager Relationship Specialty Start Date End Date Chela Crook NP [address] [place] [address] [address] [place] [phone] PCP - General 06/04/17 12/30/18 documented as of this encounter
--- OUTSIDE RECORDS SUMMARY | 2024-01-03 13:09 | XMS_ITS | Encounter Summary ---
Author Organization [facility] Address [address] [place] [address] Care Team Providers Care Second Steward Name Role Phone Chela Crook NP Primary Care Provider Reason for Visit * Reason Onset Date Comments New Patient Visit 06/08/2017 Encounter Details Date Type Department Care Team (Late st Contact Info) Description 06/08/2017 Telephone [facility] Family Medicine [facility] [address] [address] Chela Crook NP [address] [phone] New Patient Visit Social History Tobacco Use Types Packs/Day Years Used Date Smoking Tobacco: Never Assessed Sex and Gender Information Value Date Recorded Sex Assigned at Not on file Gender Identity Not on file Sexual Orientation Not on file documented as of this encounter Miscellaneous Notes * Telephone Encounter - Chela Grider - 06/25/2017 1307 EDT Received medical records * Telephone Encounter - Bernard Camacho - 06/25/2017 0972 EDT Called [facility] to request notes and was advised the patient has not been seen since before 2014 but they put anything they had in the mail 06/24/17. She no showed 3 visits since 2014so she was listed as an inactive patient. Bernard Camacho * Telephone Encounter - Chela Grider - 06/08/2017 1010 EDT Made NPV, faxed medical release form to [facility]. documented in this encounter Plan of Treatment Not on file documented as of this encounter Visit Diagnoses Not on filedocumented in this encounter Care Teams Second Steward Relationship Specialty Start Date End Date Chela Crook, LANDSCAPE FOREMAN [address] [place] [phone] PCP - General 06/04/17 12/30/18 documented as of this encounter
--- OUTSIDE RECORDS SUMMARY | 2024-01-03 13:09 | XMS_ITS | Encounter Summary ---
Author Organization [facility] Address [address] [place] [address] Care Team Providers Care Statue Carver Name Role Phone Chela Crook NP Primary Care Provider [phone] Reason for Visit * Reason Comments Laceration Laceration of distal third finger of right hand sustained approx. 35 minutes ago while cutting vegetables at work Encounter Details Date Type Department Care Team (Latest Contact Info) Description 12/07/2018 9:48 EDT - 12/07/2018 10:41 EDT Hospital Encounter [facility] - [address] [address] Rolf Galloway MD [address] [place] [phone] Dhruv Mejia MD [address] [place] [phone] Unknown, Provider, Avulsion of fingertip, initial encounter (Primary Dx) Discharge Disposition: Home or Self [...] Sign Reading Time Taken Comments Blood Pressure 116/73 12/07/2018 1007 EDT Pulse 80 12/07/2018 1007 EDT Temperature 36.6 ??C (97.9 ??F) 12/07/2018 1007 EDT Respiratory Rate 18 12/07/2018 1007 EDT Oxygen Saturation - - Inhaled Oxygen Concentration - - Weight - [...] 10/27/2017 documented as of this encounter Discharge Instructions * Discharge Instructions* Dhruv Mejia MD, MD - 12/07/2018 10:43 EDT Keep wound clean and covered. In 2 days soak and remove dressing gently. Reapply dressing if further bleeding and repeat in 2 days. If no trouble with bleeding do a daily dressing change with antibiotic ointment and a non stick dressing. If any sign of infection such as worsening pain or spreading redness please follow up promptly for a re check. documented in this encounter Medications at Time [...] 12/05/2018 12/19/2018 documented as of this encounter Discharge Disposition Disposition Code Departure Means Destination Home or Self Care documented in this encounter ED Notes * Dhruv Mejia MD, MD - 12/07/2018 1100 EDT DOS: 12/07/2018 Chief Complaint Patient presents with ??? Laceration Laceration of distal third finger of right hand sustained approx. 35 minutes ago while cutting vegetables at work The patient is a 23 y.o. female who presents today with Laceration (Laceration of distal third finger of right hand sustained approx. 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 She is been holding pressure but unable tocompletely stop the bleeding. No treatment ACTIVE DIRECTORY ADMINISTRATOR other than that. Had a tetanus booster last year. [id number]. Review of Systems Gastrointestinal: Negative for nausea and vomiting. Musculoskeletal: Negative for back pain and neck pain. Skin: Negative for wound. Neurological: Negative for weakness and numbness. No current facility-administered medications for this encounter. Current Outpatient Medications Medication Sig Dispense Refill ??? levonorgestrel (PLAN B ONE STEP) 1.5 mg tablet Take 1 Tab by mouth once for 1 dose. One 1.5 mg tablet as soon as possible within 72 hours of unprotected sexual intercourse 1 Tab 5 ??? sertraline (ZOLOFT) 25 mg tablet Take 1 Tab by mouth daily for 14 days. 14 Tab 0 No Known Allergies Patient Active Problem List Diagnosis Date Noted ??? PTSD (post-traumatic stress disorder) 06/27/2018 ??? Mixed anxiety depressive disorder 06/27/2018 ??? Umbilical hernia without obstruction and without gangrene 05/24/2018 ??? Sinus tachycardia 06/25/2017 ??? Cardiomyopathy (HCC-CMS) 06/25/2017 Past Medical History: Diagnosis Date ??? CHF (congestive heart failure) ([facility]) ??? High risk teen 06/25/2017 ??? History of myocarditis infancy with severe dysfunction ??? Hypertension ??? Migraines Social History Tobacco Use ??? Smoking status: Never Smoker ??? Smokeless tobacco: Never Used Substance Use Topics ??? Alcohol use: Yes Comment: rare use ??? Drug use: Yes Frequency: 21.0 times per week Types: Marijuana Family History Problem Relation Age of Onset ??? Drug Abuse Brother ??? Mental Illness Brother ??? Anxiety Disorder Brother ??? Mental Illness Mother bipolar ??? Mental Illness Father BP 116/73 Pulse 80 Temp 97.9 ??F (36.6 ??C) (Temporal) Resp 18 Physical Exam Constitutional: She is oriented to person, place, and time. She appears well- developed and well-nourished. No distress. HENT: Head: Normocephalic and atraumatic. Eyes: Conjunctivae are normal. Neck: Normal range of motion. Neck supple. Pulmonary/Chest: Effort normal. No respiratory distress. Musculoskeletal: Normal range of motion. Right third finger very distal finger pad has been avulsed. Gauze removed. There is currently no active bleeding. She got the very distal 1 to 2 mm of a piece of her now with the avulsion. There is no laceration. Normal range of motion. Warm and well-perfused. Neurological: She is alert and oriented to person, place, and time. Skin: Skin is warm and dry. She is not diaphoretic. Psychiatric: She has a normal mood and affect. Her behavior is normal. Consult orders: None PCP: Chela Crook No results found for this visit on 12/07/18. Radiology orders: None Imaging Results None No orders to display Procedures URGENT CARE COURSE A medical screening exam was performed. ASSESSMENT AND PLAN Final diagnoses: Avulsion of fingertip, initial encounter Surgicel dressing. Wound care instructions provided. Reviewed symptomatic treatment and indications for follow up. See discharge instructions. No supervision required. DISPOSITION: Discharged The patient's pain was managed to an adequate level weighing risk vs. benefit of further medications. Upon departure from [facility], the patient's pain was 3 on a zero to ten scale. Any further pain treatment will be at the discretion of the provider following up with the patient based on their clinical assessment . Condition at departure from the [facility] : Stable MDM 12/07/2018 11:05 * Trever Doe MA - 12/07/2018 1059 EDT Finger tip covered per provider request with gelfoam and nonstick dressing. 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 Believes [facility] [place] was last [place] [facility] * Dhruv Trammell MA - 12/07/2018 1015 EDT Irrigated with 500ml saline documented in this encounter Plan of Treatment Not on file documented as of this encounter Visit Diagnoses Diagnosis Avulsion of fingertip, initial encounter- Primary documented in this encounter Discontinued Medications Medication Sig Discontinue Reason Start Date End Da te ethinyl estradiol-etonogestrel (NUVARING) 0.12-0.015 mg/24 hr vaginal ringIndications:Encounte r for surveillance of vaginal ring hormonal contraceptive device Start the Wednesday after period starts. Insert one (1) ring vaginally and leave in place for three (3) weeks, then remove for one (1) week. 06/27/2018 12/07/2018 documented as of this encounter Care Teams Statue Carver Relationship Specialty Start Date End Date Chela Crook NP [address] [place] [phone] PCP - General 06/04/17 12/30/18 documented as of this encounter
--- OUTSIDE RECORDS SUMMARY | 2024-01-03 13:09 | XMS_ITS | Encounter Summary ---
Author Organization [facility] Address [address] [place] [address] Care Team Providers Care Deicer Repairer Pneumatic Name Role Phone Chela Crook NP Primary Care Provider [phone] Encounter Details Date Type Department Care Team (Latest Contact Info) Description 12/05/2018 Travel Social History Tobacco Use Types Packs/Day [...] on filedocumented in this encounter Care Teams Deicer Repairer Pneumatic Relationship Specialty Start Date End Date Chela Crook NP [address] [place] [address] [address] [place] [phone] PCP - General 06/04/17 12/30/18 documented as of this encounter
--- OUTSIDE RECORDS SUMMARY | 2024-01-03 13:09 | XMS_ITS | Encounter Summary ---
Author Organization [facility] Address [address] [place] [address] Care Team Providers Care Credentialing Coordinator Name Role Phone Chela Crook NP Primary Care Provider [phone] Encounter Details Date Type Department Care Team (Latest Contact Info) Description 09/15/2018 Travel Social History Tobacco Use Types Packs/Day [...] on filedocumented in this encounter Care Teams Credentialing Coordinator Relationship Specialty Start Date End Date Chela Crook NP [address] [place] [address] [address] [place] [phone] PCP - General 06/04/17 12/30/18 documented as of this encounter
--- OUTSIDE RECORDS SUMMARY | 2024-01-03 13:09 | XMS_ITS | Encounter Summary ---
Author Organization [facility] Address [address] [place] [address] Care Team Providers Care Grant Administrator Name Role Phone Chela Crook NP Primary Care Provider [phone] Reason for Visit * Reason Onset Date Comments Other 05/25/2018 Encounter Details Date Type Department Care Team (Late st Contact Info) Description 05/25/2018 Telephone [facility] General Surgery - [place] [address] [address] Arlene Phoenix MD [address] [phone] Other Social History Tobacco Use [...] encounter Miscellaneous Notes * Telephone Encounter - Izzy Tobar - 05/25/2018 1240 EDT I contacted the pt to confirm that she would be contacting [facility] Cardiology regarding cardiac clearance for her 06/02/[address] Phoenix. At the time of my call, the pt was on the phone with a nurse from cardiology. The pt states she will take care of obtaining the cardiac clearance. documented in this encounter Plan of Treatment Not on file documented as of this encounter Visit Diagnoses Not on filedocumented in this encounter Care Teams Grant Administrator Relationship Specialty Start Date End Date Chela Crook NP [address] [place] [phone] PCP - General 06/04/17 12/30/18 documented as of this encounter
--- OUTSIDE RECORDS SUMMARY | 2024-01-03 13:09 | XMS_ITS | Encounter Summary ---
Author Organization [facility] Address [address] [place] [address] Care Team Providers Care Health And Fitness Professor Name Role Phone Chela Crook NP Primary Care Provider [phone] Reason for Visit * Reason Comments Post-OP Follow Up Encounter Details Date Type Department Care Team ([facility] st Contact Info) Description 06/15/2018 13:45 EDT Office Visit [facility] General Surgery - [place] [address] [address] Arlene Phoenix MD [address] [phone] Umbilical hernia without obstruction and without gangrene (Primary Dx) Social History Tobacco Use Types [...] Sign Reading Time Taken Comments Blood Pressure 113/74 06/15/2018 1355 EDT Pulse 66 06/15/2018 1355 EDT Temperature - - Respiratory Rate - [...] as of this encounter Progress Notes * Arlene Phoenix MD, MD - 06/15/2018 1345 EDT Chief complaint: Follow-up after primary umbilical hernia repair on 06/02/2018 Subjective: Ms. Porras has been doing very well since surgery. She was tender the first few days after surgery and took in total 2 tablets of narcotic pain medicine, which caused constipation. Otherwise she is completely pain-free and is very happy that she had the hernia repaired. A couple of days ago she scraped the scab off her scar by accident and she is worried that there is some erythema and skin breakdown centrally. She has been trying to keep the wound clean and dry. Objective: BP 113/74 Pulse 66 General: No distress, extremely pleasant and cooperative Abdomen: Soft, nontender, nondistended, infraumbilical incision intact with mild erythema centrallywith 1 mm of fibrinous exudate Assessment/plan: Ms. Porras is a 22-year-old woman 2 weeks status post primary umbilical hernia repair. She is recovering well. The wound looks irritated centrally but not necessarily infected. Because of the fibrinous exudate, she could consider applying a thin layer of bacitracin to this area. But I cautioned that if it seems to be macerating her skin, then she should just continue with the wound care as she is doing now. No heavy lifting for a total of 4 weeks. No further follow-up requiredwith me. Arlene Phoenix MD documented in this encounter Plan of Treatment Not on file documented as of this encounter Visit Diagnoses Diagnosis Umbilical hernia without obstruction and without gangrene- Primary documented in this encounter Care Teams Health And Fitness Professor Relationship Specialty Start Date End Date Chela Crook NP [address] [place] [phone] PCP - General 06/04/17 12/30/18 documented as of this encounter
--- OUTSIDE RECORDS SUMMARY | 2024-01-03 13:09 | XMS_ITS | Encounter Summary ---
Author Organization [facility] Address [address] [place] [address] Care Team Providers Care Strategic Consultant Name Role Phone Chela Crook NP Primary Care Provider [phone] Reason for Visit * Reason Comments Hernia * Consult (Routine) - Specialty Report Received Specialty Diagnoses / Procedures Referred By Marvin vo Referred To Contact General Surgery Diagnoses Umbilical hernia without obstruction and without gangrene Ilir Ghosh MD [address] [facility] [place] [phone] Arlene Phoenix MD [address] [place] [phone] Referral ID Status Reason Start Date Expiration Date Visits Requested Visits Authorized [id number] Specialty Report Received Specialty Services Required 05/12/2018 1 1 Encounter Details Date Type Department Care Team (Late st Contact Info) Description 05/24/2018 11:00 EDT Office Visit [facility] General Surgery - [address] [address] Arlene Phoenix MD [address] [place] [phone] Umbilical hernia without obstruction and without [...] Sign Reading Time Taken Comments Blood Pressure 99/60 05/24/2018 1102 EDT Pulse 94 05/24/2018 1102 EDT Temperature - - Respiratory Rate - - Oxygen Saturation - - Inhaled Oxygen Concentration - - Weight - - Height 175.3 cm (5' 9) 05/24/2018 1102 EDT Body Mass Index - - documented in [...] encounter Progress Notes * Arlene Phoenix MD, - 05/24/2018 1100 EDT [facility] HISTORY AND PHYSICAL EXAMINATION Date of Service: 05/24/2018 PROBLEM: Chief Complaint Patient presents with ??? Hernia SUBJECTIVE: Ms. Porras is a 22-year-old woman with congestive heart failure due to viral illness as an infant, who has noticed pain at her umbilicus since November 2017. She says there is sometimesa bulge at the umbilicus that she can push back in. In July she had pelvic pain and got a CT scan, which showed the tiny umbilical hernia defect. The patient says that the umbilical hernia is uncomfortable and often hurts. She has to wear loose pants otherwise the belt line irritates the hernia. It is made worse with lifting. She is very interested in having it repaired. She moves her bowels regularly and denies obstructive symptoms. PROBLEM LIST: Patient Active Problem List Diagnosis ??? Sinus tachycardia ??? Cardiomyopathy (HCC-CMS) ??? Umbilical hernia without obstruction and without gangrene Past Medical History: Diagnosis Date ??? CHF (congestive heart failure) (HCC-CMS) ??? High risk teen 06/25/2017 ??? History of myocarditis infancy with severe dysfunction ??? Hypertension ??? Migraines Past Surgical History: Procedure Laterality Date ??? CENTRAL VENOUS CATHETER ??? SECTION 10/08/2013 Family History Problem Relation Age of Onset ??? Drug Abuse Brother ??? Mental Illness Brother ??? Anxiety Disorder Brother ??? Mental Illness Mother ??? Mental Illness Father Social History Socioeconomic History ??? Marital status: Single Spouse name: None ??? Number of children: None ??? Years of education: None ??? Highest education level: None Occupational History ??? None Social Needs ??? Financial resource strain: None ??? Food insecurity: Worry: None Inability: None ??? Transportation needs: Medical: None Non-medical: None Tobacco Use ??? Smoking status: Never Smoker ??? Smokeless tobacco: Never Used Substance and Sexual Activity ??? Alcohol use: Yes Comment: rare use ??? Drug use: Yes Frequency: 21.0 times per week Types: Marijuana ??? Sexual activity: Yes Partners: Male control/protection: Condom Lifestyle ??? Physical activity: Days per week: None Minutes per session: None ??? Stress: None Relationships ??? Social connections: Talks on phone: None Gets together: None Attends baptist service: None Active member of club or organization: None Attends meetings of clubs or organizations: None Relationship status: None ??? Intimate partner violence: Fear of current or ex partner: None Emotionally abused: None Physically abused: None Forced sexual activity: None Other Topics Concern ??? None Social History Narrative ??? None Lives in [place] with her 4-year-old son, who weighs 54 pounds. 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 She says she has a potential roommate who would move in with her to help her during her postsurgical period. Current Outpatient Medications: levonorgestrel (PLAN B ONE STEP) 1.5 mg tablet No current facility-administered medications for this visit. ALLERGIES: No Known Allergies REVIEW OF SYSTEMS: A 10-point review of systems was conducted. Pertinent positives are listed in the HPI above and listed below. All other systems are negative. Review of Systems 05/24/2018 Constitutional Weight loss;Malaise/Fatigue Head & Neck Headaches Neurologic Dizziness Respiratory Shortness of breath Psychiatric Depression;Nervous/Anxious Gastrointestinal Nausea PHYSICAL EXAM: BP 99/60 Pulse 94 Ht 175.3 cm (69) BMI 26.58 kg/m?? General: well-nourished, very pleasant, NAD HEENT: head normocephalic, atraumatic, oronasopharynx clear. Eyes: sclera non-icteric Heart: RRR, no M/R/G Lungs: ctab Abd: bowel sounds present, soft, minimally tender with deep palpation at the umbilicus, non-distended, no organomegaly, unable to appreciate a large hernia defect at the umbilicus with Valsalva. Skin: warm and dry, no rashes Musculoskeletal: full range of motion, normal muscle strength and tone for age Psychiatric: A&Ox3, appropriate mood and affect Imaging: I reviewed the images and the report for the CT abdomen pelvis dated 01/08/2018. I also reviewed the images with the patient. There is a tiny umbilical hernia defect containing fat. ASSESSMENT: Encounter Diagnosis Name Primary? Umbilical hernia without obstruction and without gangrene Yes Ms. Porras is a 22-year-old woman with pain at the umbilicus likely due to tiny umbilical hernia defect. We discussed elective repair in the operating room. PLAN: We discussed the pathophysiology of hernias. I explained that her hernia is tiny and I would consider repairing it in an open fashion with IV sedation. It might be so small that it would not accommodate mesh well. There is a chance that she could still have pain at the site even after repair of thehernia defect. Given her cardiac history, I would like official cardiac clearance to perform this el ective procedure with IV sedation. The patient said she is due to see her results technician at [facility] and she thinks she could get in this week. I described the procedure in detail including infection, bleeding, damage to nearby structures, recurrence. She signed a written informed consent. Pos toperative pain control with scheduled acetaminophen, ibuprofen, ice packs. I will also provide herwith a prescription for a few tablets of narcotic. She signed the informed consent for opiates. No driving for 5 days after surgery. No heavy lifting for 4 weeks after surgery. I strongly encouraged her to have someone stay with her and help with her son in the immediate postoperative period. I provided the patient with written materials. The patient demonstrated understanding. There were no barriers to understanding. Arlene Phoenix MD 05/24/2018 documented in this encounter Plan of Treatment Not on file documented as of this encounter Visit Diagnoses Diagnosis Umbilical hernia without obstruction and without gangrene- Primary documented in this encounter Discontinued Medications Medication Sig Discontinue Reason Start Date End Da te ethinyl estradiol-etonogestrel (NUVARING) 0.12-0.015 mg/24 hr vaginal ringIndications:Encounte r for initial prescription of vaginal ring hormonal contraceptive Start the Wednesday after period starts. Insert one (1) ring vaginally and leave in place for three (3) weeks, then remove for one (1) week. Therapy completed 01/31/2018 05/24/2018 lisinopril (PRINIVIL, ZESTRIL) 2.5 mg tablet Take 2.5 mg by mouth daily. Therapy completed 05/24/2018 metoprolol XL (TOPROL-XL) 25 mg tablet Take 25 mg by mouth daily. Therapy completed 05/24/2018 documented as of this encounter Care Teams Strategic Consultant Relationship Specialty Start Date End Date Chela Crook NP [address] [place] [phone] PCP - General 06/04/17 12/30/18 documented as of this encounter
--- OUTSIDE RECORDS SUMMARY | 2024-01-03 13:09 | XMS_ITS | Encounter Summary ---
Author Organization [facility] Address [address] [place] [address] Care Team Providers Care Sandwich Maker Name Role Phone Chela Crook NP Primary Care Provider [phone] Unknown, Provider Primary Care Provider [phone] Encounter Details Date Type Department Care Team (Late st Contact Info) Description 10/01/2017 Historical Results Only [facility] Lab - Main [address] [id number] Elma Castro MD Social History Tobacco Use Types Packs/Day Years Used Date Smoking Tobacco: Never Smokeless Tobacco: Never Sex and Gender Information Value Date Recorded Sex Assigned at Not on file Gender Identity Not on file Sexual Orientation Not on file documented as of this encounter Plan of Treatment Not on file documented as of this encounter Procedures Procedure Name Priority Date/Time Associated Diagnosis Comments SPEC W/O [facility] [place] [facility] Routine 10/01/2017 18:20 EDT documented in this encounter Results * SPEC W/O ORDERS - [facility] (10/01/2017 18:20 EDT) SPEC W/O [facility] SEE NOTE 10/01/2017 18:50 EDT [facility] Comment: ?Emergency Room Specimen(s) without Orders These specimens will be discarded in 8 hours: Gold, green, purple 10/01/2017 18:2 0 EDT 10/01/2017 18:50 EDT Elma Castro MD CHEMISTRY & BLOOD GAS ORDERABLES [facility] documented in this encounter Visit Diagnoses Not on filedocumented in this encounter Care Teams Sandwich Maker Relationship Specialty Start Date End Date Chela Crook NP [address] [place] [phone] PCP - General 06/04/17 12/30/18 Unknown, Provider, [address] [place] [phone] PCP - General 12/31/18 documented as of this encounter
--- OUTSIDE RECORDS SUMMARY | 2024-01-03 13:09 | XMS_ITS | Encounter Summary ---
Author Organization [facility] Address [address] [place] [address] Care Team Providers Care Fire Control Technician Name Role Phone Rustam Coppola MD Primary Care Provider [phone] Chela Crook NP Primary Care Provider [phone] Encounter Details Date Type Department Care Team (Late st Contact Info) Description 03/21/2017 Historical Results Only [facility] Radiology Results [address] [place] [address] Stephanie Heller PA-C [address] [place] [address] Social History Tobacco Use Types Packs/Day Years Used Date Smoking Tobacco: Never Assessed Sex and Gender Information Value Date Recorded Sex Assigned at Not on file Gender Identity Not on file Sexual Orientation Not on file documented as of this encounter Plan of Treatment Not on file documented as of this encounter Procedures Procedure Name Priority Date/Time Associated Diagnosis Comments BACTERIAL CULTURE, URINE Routine 03/21/2017 18:46 EST US PELVIS TRANSVAGINAL COMPLETE 03/21/2017 18:37 EST GC/[place]AMYDIA [place] [facility] Routine 03/21/2017 17:30 EST WET PREP Routine 03/21/2017 17:30 EST documented in this encounter Results * BACTERIAL CULTURE, URINE (03/21/2017 18:46 EST) ESCHERIACHIA COLI - [facility] ESCHERICHIA COLI 03/23/2017 7:39 EST [facility] CitrateConcentration >100,000 CFU/ML 11/2017 7:39 [facility] 03/21/2017 18:4 6 EST 03/21/2017 18:46 EST Comment:VOID Narrative Organism Antibiotic Method Susceptibility Escherichia coli Ampicillin Sulbactam GRAM NEGAT JC SUSCEPTIBILITY - [facility] >=32: Resistant Escherichia coli Ampicillin GRAM NEGATIVE SUSCEPTIBILITY - [facility] >=32: Resistant Escherichia coli Amoxicillin Clavulan ic acid GRAM NEGATIVE SUSCEPTIBILITY - [facility] 16: Intermediate Escherichia coli Ceftriaxone GRAM NEGATIVE SUSCEPTIBILITY - [facility] <=1: Susceptible Escherichia coli Cefazolin GRAM NEGATIVE SUSCEPTIBILITY - [facility] 32: Resistant Escherichia coli Ciprofloxacin GRAM NEGATIVE SUSCEPTIBILITY - [facility] <=0.25: Susceptible Escherichia coli Cefepime GRAM NEGATIVE SUSCEPTIBILITY - [facility] <=1: Susceptible Escherichia coli Ertapenem GRAM NEGATIVE SUSCEPTIBILITY - [facility] <=0.5: Susceptible Escherichia coli Nitrofurantoin GRAM NEGATIVE SUSCEPTIBILITY - [facility] <=16: Susceptible Escherichia coli Gentamicin GRAM NEGATIVE SUSCEPTIBILITY - [facility] 8: Intermediate Escherichia coli Levofloxacin GRAM NEGATIVE SUSCEPTIBILITY - [facility] <=0.12: Susceptible Escherichia coli Piperacillin Tazobactam GRAM NEGATIVE SUSCEPTIBILITY - [facility] 64: Intermediate Escherichia coli Trimethoprim-Sulfame th oxazole GRAM NEGATIVE SUSCEPTIBILITY - [facility] <=20: Susceptible Escherichia coli Tobramycin GRAM NEGATIVE SUSCEPTIBILITY - [facility] 8: Intermediate Comment:See Reason(s) for St udy Stephanie Heller PA-C MICROBIOLOGY - GENER AL ORDERABLES [facility] * US PELVIS TRANSVAGINAL (03/21/2017 18:37 EST) Anatomical Region Laterality Modality Pelvis Other 03/21/2017 18:3 7 EST Narrative 03/21/2017 18:37 EST ? EXAM: ULTRASOUND/TRANSVAGINAL - [employer] W/ DO EX. D/ (181) ? CLINICAL INFORMATION: ? PELVIC PAIN,ASSESS FOR CYSTS,TOSRSION, IUD PLACEMENT ? EXAM: ? US Pelvis, Transvaginal ? CLINICAL HISTORY: ? 21 years old, female; Pain; Pelvic pain; Patient HX: Patient ? has had iud for two years. Had sex after a long abstinence and ? afterwards was covered in blood. ; Additional info: Pelvic ? pain, assess for cysts, tosrsion, iud placement ? TECHNIQUE: ? Real-time transvaginal pelvic ultrasound (complete) with image ? documentation. ??Transvaginal imaging was used for better ? evaluation of the endometrium and adnexa. ? COMPARISON: ? No relevant prior studies available. ? FINDINGS: ? Uterus/cervix: ??The IUD appears to be in the lower uterine ? segment/cervical area. ??8.2 x 4.4 x 4.9 cm uterus. ??3.76 mm ? endometrial stripe which is normal. ??No myometrial mass. ? Right ovary: ??3.9 x 2.0 x 2.6 cm right ovary. ??Normal ovarian ? perfusion bilaterally with no torsion. ? Left ovary: ??3.4 x 1.9 x 2.2 cm left ovary. ? Free fluid: ??No free fluid. ? Bladder: ??Empty bladder which cannot be evaluated with this ? probe. ? IMPRESSION: ? The IUD appears to be in the lower uterine segment/cervical ? area. ? REPORT SIGNED IN OTHER VENDOR SYSTEM 03/21/2017 ?Reported By: Reuben Zuñiga MD ? CC: ? Transcribed Date/Time: 03/21/2017 (1836) ? Crusher And Binder Operator: ? Printed Date/Time: 08/31/2018 (5495) ? PAGE 1 ? Signed Report ? Procedure Note Reuben Zuñiga MD - 01/18/2019 EXAM: ULTRASOUND/TRANSVAGINAL - [employer] W/ DO EX. D/ (1812) CLINICAL INFORMATION: PELVIC PAIN,ASSESS FOR CYSTS,TOSRSION, IUD PLACEMENT EXAM: US Pelvis, Transvaginal CLINICAL HISTORY: 21 years old, female; Pain; Pelvic pain; Patient HX: Patient has had iud for two years. Had sex after a long abstinence and afterwards was covered in blood. ; Additional info: Pelvic pain, assess for cysts, tosrsion, iud placement TECHNIQUE: Real-time transvaginal pelvic ultrasound (complete) with image documentation. Transvaginal imaging was used for better evaluation of the endometrium and adnexa. COMPARISON: No relevant prior studies available. FINDINGS: Uterus/cervix: The IUD appears to be in the lower uterine segment/cervical area. 8.2 x 4.4 x 4.9 cm uterus. 3.76 mm endometrial stripe which is normal. No myometrial mass. Right ovary: 3.9 x 2.0 x 2.6 cm right ovary. Normal ovarian perfusion bilaterally with no torsion. Left ovary: 3.4 x 1.9 x 2.2 cm left ovary. Free fluid: No free fluid. Bladder: Empty bladder which cannot be evaluated with this probe. IMPRESSION: The IUD appears to be in the lower uterine segment/cervical area. REPORT SIGNED IN OTHER VENDOR SYSTEM 03/21/2017 Reported By: Reuben Zuñiga MD CC: Transcribed Date/Time: 03/21/2017 (1836) Crusher And Binder Operator: Printed Date/Time: 08/31/2018 (1520) PAGE 1 Signed Report Stephanie Heller PA-C IMG US OB ORDERABLES * WET PREP (03/21/2017 17:30 EST) CLUE CELLS [place] [facility] CLUE CELLS SEEN 03/21/2017 18:29 EST [facility] SPERM NO SPERM SEEN 03/21/2017 18:29 [facility] TRICHOMONAS - [facility] NO TRICHOMONAS SEEN 03/21/2017 18:29 [facility] YEAST - [facility] NO YEAST SEEN 8 18:29 EST [facility] 03/21/2017 17:3 0 EST 03/21/2017 17:55 EST Narrative [facility] - 03/21/2017 18:29 EST Does PT Have a Latex Allergy? UNKNOWN Stephanie Heller PA-C MICROBIOLOGY - GENER AL ORDERABLES [facility] * GC/CHLAMYDIA PCR [place] [facility] (03/21/2017 17:30 EST) CHLAMYDIA PCR [place] [facility] NOT DETECTED 03/21/2017 19:54 EST [facility] GONORRHEA PCR - [facility] NOT DETECTED 03/21/2017 19:54 [facility] SOURCE VAGINAL 03/21/2017 19:54 [facility] 03/21/2017 17:3 0 EST 03/21/2017 17:55 EST Narrative [facility] - 03/21/2017 19:54 EST Does PT Have a Latex Allergy? UNKNOWN Stephanie Heller PA-C CHEMISTRY & BLOOD GA S ORDERABLES [facility] documented in this encounter Visit Diagnoses Not on filedocumented in this encounter Care Teams Fire Control Technician Relationship Specialty Start Date End Date Rustam Coppola MD [address] [place] [phone] PCP - General 12/19/08 06/03/17 Chela Crook NP [address] [place] [address] [phone] PCP - General 06/04/17 12/30/18 documented as of this encounter
--- OUTSIDE RECORDS SUMMARY | 2024-01-03 13:09 | XMS_ITS | Encounter Summary ---
Author Organization [facility] Address [address] [place] [address] Care Team Providers Care Fire Chief Name Role Phone Chela Crook NP Primary Care Provider [phone] Unknown, Provider Primary Care Provider [phone] Encounter Details Date Type Department Care Team (Late st Contact Info) Description 11/25/2017 Historical Results Only [facility] - Main [place] [address] [place], [place] [phone] Sheila Yarbrough NP [address] [facility] [address] [place], [place] [id number] Social History Tobacco Use Types Packs/Day Years [...] Procedure Name Priority Date/Time Associated Diagnosis Comments PHARYNGITIS SCREEN - [facility] Routine 11/25/2017 15:26 EDT documented in this encounter Results * PHARYNGITIS SCREEN - CV (11/25/2017 15:26 EDT) BETA HEMOLYTIC STREP NOT GRP A - [facility] DIRECTOR TRANSITION 11/27/2017 10:14 EDT [facility] QUANT - [facility] RARE 11/27/2017 10:14 EDT [facility] USUAL ORAL/PHARYNGEA L GEMA - [facility] UTF 11/27/2017 10:14 EDT [facility] - [facility] PRESENT 11/27/2017 10:14 EDT [facility] 11/25/2017 15:2 6 EDT 11/25/2017 17:50 EDT Sheila Yarbrough STRATEGIC DEVELOPMENT MANAGER CHEMISTRY & BLOOD GAS ORDERABLES [facility] documented in this encounter Visit Diagnoses Not on filedocumented in this encounter Care Teams Fire Chief Relationship Specialty Start Date End Date Chela Crook, AMADOU [address] [place] [phone] PCP - General 06/04/17 12/30/18 Unknown, Provider, [address] [place] [phone] PCP - General 12/31/18 documented as of this encounter
--- OUTSIDE RECORDS SUMMARY | 2024-01-03 13:09 | XMS_ITS | Encounter Summary ---
Author Organization [facility] Address [address] [place] [address] Care Team Providers Care Utility Tender Carding Name Role Phone Chela Crook NP Primary Care Provider [phone] Reason for Visit * Reason Onset Date Comments No Show 09/19/2018 Encounter Details Date Type Department Care Team (Late st Contact Info) Description 09/19/2018 Telephone [facility] [address] [address] Chela Crook NP [address] [phone] No Show Social History Tobacco [...] * Telephone Encounter - Bernard Camacho - 09/19/2018 1623 EDT No Show # 4 Spoke to patient regarding the appointment she missed with Chela Crook NP on 09/13/18. The patient states her phone was not working and she was not aware of this appointment. I informed the patient of the no show policy, and expressed how important it is to keep her appointments. She is going to holdoff on rescheduling until she knows her work schedule, but states she will be sure to not miss another appointment. I also sent the patient a letter outlining the no show policy. Bernard Camacho documented in this encounter Plan of Treatment Not on file documented as of this encounter Visit Diagnoses Not on filedocumented in this encounter Care Teams Utility Tender Carding Relationship Specialty Start Date End Date Chela Crook NP [address] [place] [phone] PCP - General 06/04/17 12/30/18 documented as of this encounter
--- OUTSIDE RECORDS SUMMARY | 2024-01-03 13:09 | XMS_ITS | Encounter Summary ---
Author Organization [facility] Address [address] [place] [address] Care Team Providers Care Blending Supervisor Name Role Phone Chela Crook NP Primary Care Provider Reason for Visit * Reason Onset Date Comments Hernia 05/05/2018 Encounter Details Date Type Department Care Team (Late st Contact Info) Description 05/05/2018 Telephone [facility] [address] [address] Chela Crook NP [address] [phone] Hernia Social History Tobacco Use Types Packs/Day Years [...] encounter Miscellaneous Notes * Telephone Encounter - Andria Long RN - 05/05/2018 3545 EST Noted. * Telephone Encounter - Ziyad Mendieta MD - 05/05/2018 1727 EST Agree, concern incarcerated vs strangulated. ER evaluation appropriate * Telephone Encounter - Andria Long RN - 05/05/2018 1648 EST Patient states she has been told she has an umbilical hernia and Chela Crook APRN has shown her how to push it back in place, but I've been trying to do it every day and it's not working. 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 I can't pick up attendant my son because it hurts so bad. Wearing my pants hurts. It hurts 24/7. It hurts to sleep and I can feel it outside of my skin and when I l ay down flat I can feel a bubble at the top of my belly button. I need to know what to do... It hurts. Discussed with the patient that because it's increasingly more painful and is affecting her abilityto work, sleep, care for her child, etc., she should be evaluated. She will go to [facility] ER. * Telephone Encounter - Seth Gay - 05/05/2018 1644 EST Pt complaining of umbilical hernia pain--having a hard time wearing pants, difficult to work-- booked with Dr Ghosh on 05/12/18 as thats first opening available-- but pt needs further outreach GERALDINE documented in this encounter Plan of Treatment Not on file documented as of this encounter Visit Diagnoses Not on filedocumented in this encounter Care Teams Blending Supervisor Relationship Specialty Start Date End Date Chela Crook NP [address] [place] [phone] PCP - General 06/04/17 12/30/18 documented as of this encounter
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
--- OUTSIDE RECORDS SUMMARY | 2024-01-03 13:09 | XMS_ITS | Encounter Summary ---
Author Organization [facility] Address [address] [place] [address] Care Team Providers Care Supervisor Brine Name Role Phone Chela Crook NP Primary Care Provider Reason for Referral * Consult (Routine) - Specialty Report Received Specialty Diagnoses / Procedures Referred By Marvin vo Referred To Contact General Surgery Diagnoses Umbilical hernia without obstruction and without gangrene Ilir Ghosh MD [address] [place] [phone] Arlene Phoenix MD [address] [place] [phone] Referral ID Status Reason Start Date Expiration Date Visits Requested Visits Authorized [id number] Specialty Report Received Specialty Services Required 05/12/2018 1 1 Question Answer Reason for Request: recurring reducable umbilical hernia with frequent painful episodes Reason for Visit * Reason Comments Hernia Pt. here for hernia Encounter Details Date Type Department Care Team (Late st Contact Info) Description 05/12/2018 16:00 EST Office Visit [facility] [address] [place] [address] Ilir Ghosh MD [address] [place] [phone] Umbilical hernia without obstruction and without gangrene [...] Sign Reading Time Taken Comments Blood Pressure 110/80 05/12/2018 1651 EST Pulse 73 05/12/2018 1651 EST Temperature - - Respiratory Rate - - Oxygen Saturation 98% 05/12/2018 1651 EST Inhaled Oxygen Concentration - - Weight - [...] as of this encounter Progress Notes * Ilir Ghosh MD - 05/12/2018 1600 EST Images from the original note were not included. Subjective: Patient ID: Mary Porras is an 22 y.o. female. Chief Complaint Patient presents with ??? Hernia Pt. 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 She had recently been seen at the ER for pain. She had been taking motrin and tylenol intermittently for pain. She does not endorse any nausea vomiting, fevers chills, blood in the stools. Remaining review of system as follows. Patient Active Problem List Diagnosis ??? Sinus tachycardia ??? Cardiomyopathy (HCC-CMS) Past Medical History: Diagnosis Date ??? CHF (congestive heart failure) (HCC-CMS) ??? High risk teen 06/25/2017 ??? History of myocarditis infancy with severe dysfunction ??? Migraines Current Outpatient Medications on File Prior to Visit Medication Sig Dispense Refill ??? ethinyl estradiol-etonogestrel (NUVARING) 0.12-0.015 mg/24 hr vaginal ring Start the Wednesday after period starts. Insert one (1) ring vaginally and leave in place for three (3) weeks, then remove for one (1) week. (Patient not taking: Reported on 05/12/2018) 3 Each 1 ??? levonorgestrel (PLAN B ONE STEP) 1.5 mg tablet Take 1 Tab by mouth once for 1 dose. One 1.5 mg tablet as soon as possible within 72 hours of unprotected sexual intercourse (Patient not taking: Reported on 05/12/2018) 1 Tab 5 ??? lisinopril (PRINIVIL, ZESTRIL) [...] Frequency: 3.0 times per week Types: Marijuana Review of Systems Constitutional: Negative for chills, fever and weight loss. Respiratory: Negative. Cardiovascular: Negative. Gastrointestinal: Positive for abdominal pain. Negative for blood in stool, constipation, diarrhea,heartburn, melena and nausea. Genitourinary: Negative. - See HPI Objective: BP 110/80 (BP Cuff Location: Right arm, Patient Position: Sitting, BP Cuff Sizes: Adult, regular) Pulse 73 SpO2 98% Physical Exam Constitutional: She appears well-developed and well-nourished. Cardiovascular: Normal rate and regular rhythm. Pulmonary/Chest: Effort normal. Abdominal: Soft. There is no hepatosplenomegaly. There is tenderness in the periumbilical area. Did not appreciate any specific bulging with palpation Nursing note and vitals reviewed. Assessment: Plan: Mary was seen today for hernia. Diagnoses and all orders for this visit: Umbilical hernia without obstruction and without gangrene This has been evident on the previous abdominal CT. Recommended general surgery evaluation for possible repair. - AMB CONS/FOLLOW UP GENERAL SURGERY documented in this encounter Plan of Treatment Scheduled Referrals Name Type Priority Associated Diagnoses Orde r Schedule AMB CONS/FOLLOW UP GENERAL SURGERY Outpatient Referral Routine Umbilical hernia without obstruction and without gangrene Ordered: 05/12/2018 documented as of this encounter Visit Diagnoses Diagnosis Umbilical hernia without obstruction and without gangrene- Primary documented in this encounter Care Teams Supervisor Brine Relationship Specialty Start Date End Date Chela Crook NP [address] [place] [phone] PCP - General 06/04/17 12/30/18 documented as of this encounter
--- OUTSIDE RECORDS SUMMARY | 2024-01-03 13:09 | XMS_ITS | Encounter Summary ---
Author Organization [facility] Address [address] [place] [address] Care Team Providers Care Certified Real Estate Appraiser Name Role Phone Chela Crook NP Primary Care Provider [phone] Encounter Details Date Type Department Care Team (Late st Contact Info) Description 06/25/[address] [address] Andria Long RN Social History Tobacco Use Types Packs/Day Years Used Date Smoking Tobacco: Never Smokeless Tobacco: Never Sex and Gender Information Value Date Recorded Sex Assigned at Not on file Gender Identity Not on file Sexual Orientation Not on file documented as of this encounter Plan of Treatment Not on file documented as of this encounter Visit Diagnoses Not on filedocumented in this encounter Historical Medications * This list may reflect changes made after this encounter. Medication Sig Dispensed Refills Start Date End Date lisinopril (PRINIVIL, ZESTRIL) 2.5 mg tablet Take 2.5 mg by mouth daily. 05/24/2018 metoprolol XL (TOPROL-XL) 25 mg tablet Take 25 mg by mouth daily. 05/24/2018 added in this encounter Care Teams Certified Real Estate Appraiser Relationship Specialty Start Date End Date Chela Crook NP [address] [phone] PCP - General 06/04/17 12/30/18 documented as of this encounter
--- OUTSIDE RECORDS SUMMARY | 2024-01-03 13:09 | XMS_ITS | Encounter Summary ---
Author Organization [facility] Address [address] [place] [address] Care Team Providers Care Stamp Press Operator Name Role Phone Chela Crook NP Primary Care Provider [phone] Encounter Details Date Type Department Care Team (Late st Contact Info) Description 06/25/2017 Abstract [facility] [address] [address] Chela Crook NP [address] [address] Social History Tobacco Use Types Packs/Day Years Used Date Smoking Tobacco: Never Smokeless Tobacco: Never Sex and Gender Information Value Date Recorded Sex Assigned at Not on file Gender Identity Not on file Sexual Orientation Not on file documented as of this encounter Plan of Treatment Not on file documented as of this encounter Procedures Procedure Name Priority Date/Time Associated Diagnosis Comments BASIC METABOLIC PANEL (BMP) Routine 04/19/2017 documented in this encounter Results * BASIC METABOLIC PANEL (BMP) (04/19/2017) GFR, Calculated, External >60 [facility] Glucose, Serum, External 70 [facility] Calculated Calcium, External 9.3 [facility] BUN, External 10 [facility] Calcium, External [facility] Chloride, External 102 [facility] CO2, External 29 [facility] Creatinine, External 0.85 [facility] Fasting?, External [facility] Potassium, External 4.1 [facility] Sodium, External 144 [facility] Blood specimen (specimen) 04/19/2017 Historical Provider CHEMISTRY & BLOOD GAS ORDERABLES [facility] documented in this encounter Visit Diagnoses Not on filedocumented in this encounter Care Teams Stamp Press Operator Relationship Specialty Start Date End Date Chela Crook NP [address] [place] [phone] PCP - General 06/04/17 12/30/18 documented as of this encounter
--- OUTSIDE RECORDS SUMMARY | 2024-01-03 13:09 | XMS_ITS | Encounter Summary ---
Author Organization [facility] Address [address] [place] [address] Care Team Providers Care Blackjack Pit Boss Name Role Phone Chela Crook NP Primary Care Provider [phone] Reason for Visit * Reason Onset Date Comments Pharmacy 10/27/2017 Encounter Details Date Type Department Care Team (Late st Contact Info) Description 10/27/[address] [facility] [address] [address] Chela Crook NP [address] [phone] Pharmacy Social History Tobacco Use Types Packs/Day Years [...] Miscellaneous Notes * Telephone Encounter - Chela Crook NP - 10/27/2017 1637 EDT Thank you. She needs emergency contraception if needed. * Telephone Encounter - Andria Long RN - 10/27/2017 1459 EDT Kevin wanted to know if the reason for prescribing the birthcontrol that was chosen this morning. He was informed, according to Chela Crook APRN's OV note from today: Has tried multiple forms of contraception (Paragard, Mirena, Nexplanon) and has had bothersome sideeffects including weight gain and nausea. He was satisfied with that answer. * Telephone Encounter - Dori Gomez - 10/27/2017 1438 EDT Kevin from [facility] calling about the patient's Plan B prescription. He wanted to clarify the rationale behind prescribing it- is the patient unable to use contraceptive pills? documented in this encounter Plan of Treatment Not on file documented as of this encounter Visit Diagnoses Not on filedocumented in this encounter Care Teams Blackjack Pit Boss Relationship Specialty Start Date End Date Chela Crook, AMADOU [address] [place] [phone] PCP - General 06/04/17 12/30/18 documented as of this encounter
--- OUTSIDE RECORDS SUMMARY | 2024-01-03 13:09 | XMS_ITS | Encounter Summary ---
Author Organization [facility] Address [address] [place] [address] Care Team Providers Care Beer Still Runner Compounder Name Role Phone Chela Crook NP Primary Care Provider [phone] Reason for Visit * Reason Onset Date Comments Appointment Related 06/01/2018 Encounter Details Date Type Department Care Team (Late st Contact Info) Description 06/01/2018 Telephone [facility] General Surgery - [address] [address] Arlene Phoenix MD [address] [phone] Appointment Related Social History Tobacco Use Types [...] encounter Miscellaneous Notes * Telephone Encounter - LibbyJanice - 06/01/2018 1406 EDT Spoke with patient to notify her that we received the clearance from her gas distribution and emergency clerk. She has confirmed this information. documented in this encounter Plan of Treatment Not on file documented as of this encounter Visit Diagnoses Not on filedocumented in this encounter Care Teams Beer Still Runner Compounder Relationship Specialty Start Date End Date Chela Crook NP [address] [place] [phone] PCP - General 06/04/17 12/30/18 documented as of this encounter
--- OUTSIDE RECORDS SUMMARY | 2024-01-03 13:09 | XMS_ITS | Encounter Summary ---
Author Organization [facility] Address [address] [place] [address] Care Team Providers Care Rubber And Pounder Name Role Phone Chela Crook NP Primary Care Provider [phone] Reason for Visit * Reason Onset Date Comments No Show 08/02/2018 Encounter Details Date Type Department Care Team (Late st Contact Info) Description 08/02/2018 Telephone [facility] [address] [address] Chela Crook NP [address] [phone] No Show Social History Tobacco [...] * Telephone Encounter - Bernard Camacho - 08/02/2018 2436 EDT Per Chela Toussaint, [employer], the patient will not be discharged from the practice for her no shows at this time. Bernard Camacho documented in this encounter Plan of Treatment Not on file documented as of this encounter Visit Diagnoses Not on filedocumented in this encounter Care Teams Rubber And Pounder Relationship Specialty Start Date End Date Chela Crook NP [address] [place] [phone] PCP - General 06/04/17 12/30/18 documented as of this encounter
--- OUTSIDE RECORDS SUMMARY | 2024-01-03 13:09 | XMS_ITS | Encounter Summary ---
Author Organization [facility] Address [address] [place] [address] Care Team Providers Care Grease Machine Worker Name Role Phone Rustam Coppola MD Primary Care Provider [phone] Encounter Details Date Type Department Care Team (Latest Contact Info) Description 03/21/2017 14:46 EST - 03/21/2017 23:59 EST Hospital Encounter [facility] [address] [place] [address] Unknown, Provider, Discharge Disposition: Home or Self Care Social History Tobacco Use Types Packs/Day Years Used Date Smoking Tobacco: Never Assessed Sex and Gender Information Value Date Recorded Sex Assigned at Not on file Gender Identity Not on file Sexual Orientation Not on file documented as of this encounter Discharge Disposition Disposition Code Departure Means Destination Home or Self Alf documented in this encounter Plan of Treatment Not on file documented as of this encounter Visit Diagnoses Not on filedocumented in this encounter Care Teams Grease Machine Worker Relationship Specialty Start Date End Date Rustam Coppola MD [address] [place] [phone] PCP - General 12/19/08 06/03/17 documented as of this encounter
--- OUTSIDE RECORDS SUMMARY | 2024-01-03 13:10 | XMS_ITS | Encounter Summary ---
Author [facility] [place] [address] Care Team Providers Care Marble Installer Name Role Phone Pietro Son Primary Care Provider [phone] Encounter Details Date Type Department Care Team (Late st Contact Info) Description 01/16/2022 Abstract Cardiology at [address] [phone] Erma Chapin RN Social History Tobacco Use Types Packs/Day Years Used Date Smoking Tobacco: Former Smokeless Tobacco: Never Comments:smokes weed Alcohol Use Standard Drinks/Week Comments Not Currently 0 (1 standard drink = 0.6 oz pur e alcohol) Sex and Gender Information Value Date Recorded Sex Assigned at Female 11/26/2021 10:32 AM EDT Gender Identity Choose not to disclose 10:32 AM EDT Sexual Orientation Straight 11/26/2021 10 :32 AM EDT documented as of this encounter Plan of Treatment Upcoming Encounters Date Type Department Care Team (Late st Contact Info) Description 01/27/2024 1:00 PM EST Appointment Non-Invasive [place] [address] Anton Márquez MD [facility] [place] [address] 01/27/2024 3:00 PM EST Office Visit Cardiology at [address] [phone] Anton Márquez MD [facility] [place] [address] documented as of this encounter Visit Diagnoses Not on filedocumented in this encounter Care Teams Marble Installer Relationship Specialty Start Date End Date Pietro Son PA [address] [place] [phone] PCP - General Internal Medicine 09/27/20 documented as of this encounter
--- OUTSIDE RECORDS SUMMARY | 2024-01-03 13:10 | XMS_ITS | Encounter Summary ---
Author [facility] [place] [address] Care Team Providers Care Customer Resource Specialist Name Role Phone Pietro Son Primary Care Provider [phone] Encounter Details Date Type Department Care Team (Late st Contact Info) Description 11/26/2021 Orders Only Cardiology at [address] [phone] Anton Márquez MD [facility] [place] [address] Chronic systolic heart failure Social History Tobacco Use Types Packs/Day Years [...] 1:00 PM EST Appointment Non-[place] [address] Anton Márquez MD [facility] [place] [address] 01/27/2024 3:00 PM EST Office Visit Cardiology at [address] [place] [address] Anton Márquez MD [facility] [place] [address] documented as of this encounter Visit Diagnoses Diagnosis Chronic systolic heart failure documented in this encounter Care Teams Customer Resource Specialist Relationship Specialty Start Date End Date Pietro Son PA [address] [place] [phone] PCP - General Internal Medicine 09/27/20 documented as of this encounter
--- OUTSIDE RECORDS SUMMARY | 2024-01-03 13:10 | XMS_ITS | Encounter Summary ---
Author Organization [facility] [place] [address] Care Team Providers Care Preschool Teacher Name Role Phone Pietro Son Primary Care Provider [phone] Encounter Details Date Type Department Care Team (Late st Contact Info) Description 02/25/2023 Orders Only Cardiology at [address] [phone] Anton Márquez MD [facility] [place] [address] Chronic systolic heart failure; Peripartum cardiomyopathy Social History Tobacco Use Types Packs/Day Years [...] 1:00 PM EST Appointment Non-Invasive [place] [address] Anton Márquez MD [facility] [place] [address] 01/27/2024 3:00 PM EST Office Visit Cardiology at [address] [phone] Anton Márquez MD [facility] [place] [address] Scheduled Orders Name Type Priority Associated Diagnoses Orde r Schedule Comprehensive metabolic panel (non-fasting) Lab Routine Chronic systolic heart failure Peripartum cardiomyopathy Expected: 02/28/2023, Expires: 02/25/2024 pro-Brain Natriuretic Peptide Lab Routine Chronic systolic heart failure Peripartum cardiomyopathy Expected: 03/04/2023, Expires: 02/26/2024 TSH Lab Routine Chronic systolic heart failure Peripartum cardiomyopathy Expected: 02/25/2023, Expires: 02/25/2024 documented as of this encounter Visit Diagnoses Diagnosis Chronic systolic heart failure Peripartum cardiomyopathy Peripartum cardiomyopathy, unspecified as to episode of care documented in this encounter Care Teams Preschool Teacher Relationship Specialty Start Date End Date Pietro Son PA [address] [place] [address] PCP - General Internal Medicine 09/27/20 documented as of this encounter
--- OUTSIDE RECORDS SUMMARY | 2024-01-03 13:10 | XMS_ITS | Encounter Summary ---
[place] [address] Care Team Providers Care Plastic Fixture Builder Name Role Phone Pietro Son Primary Care Provider [phone] Encounter Details Date Type Department Care Team (Latest Contact Info) Description 01/30/2021 3:25 PM EST Laboratory Appointment Lab [address] [place] [address] Peripartum cardiomyopathy Social History Tobacco Use Types [...] 1:00 PM EST Appointment Non-Invasive [place] [address] Anton Márquez MD [facility] [place] [address] 01/27/2024 3:00 PM EST Office Visit Cardiology at [address] [phone] Anton Márquez MD [facility] [place] [address] documented as of this encounter Procedures Procedure Name Priority Date/Time Associated Diagnosis Comments HC PROBNP Routine 01/30/2021 3:39 PM EST Peripartum cardiomyopathy HC DIGOXIN, SERUM Routine 01/30/2021 3:3 9 PM EST Peripartum cardiomyopathy HC VENIPUNCTURE Routine 01/30/2021 3:39 PM EST Peripartum cardiomyopathy documented in this encounter Results * (ABNORMAL) Digoxin level (01/30/2021 3:39 PM EST) Digoxin <0.3(L) 0.9 - 2.0 mcg/L [facility] Blood 01/30/2021 3:39 PM EST 01/30/2021 4:07 PM EST Narrative Resulting Agency Comment Spec In Lab Anton Márquez MD CHEMISTRY ORDER JERRY Performing Organization Address City/[facility]/ZIP Co de Phone Number [facility] [place] [address] * pro-Brain Natriuretic Peptide (01/30/2021 3:39 PM EST) NT-proBNP 113 <=124 pg/mL [facility] Blood 01/30/2021 3:39 PM EST 01/30/2021 4:07 PM EST Narrative Resulting Agency Comment Spec In Lab Anton Márquez MD CHEMISTRY ORDER JERRY [facility] [place] [address] * Basic Metabolic Panel (non-fasting) (01/30/2021 3:39 PM EST) Glucose 77 65 - 199 mg/dL [facility] Comment:Diabetes: >=200 mg/d L plus symptoms Blood Urea Nitrogen 16 8 - 18 mg/dL [facility] Creatinine 0.82 0.70 - 1.20 mg/dL [facility] Sodium 140 135 - 145 mmol/L [facility] Potassium 4.4 3.5 - 5.0 mmol/L [facility] Comment: Please note: ??Patients with WBC >100,000 may have falsely elevated Potassium levels. ??For accurate Potassium quantification in these patients send serum separator tube (gold top) for subsequent determinations. ??Contact the Clinical Chemistry Laboratory if there are any questions. Chloride 103 98 - 107 mmol/L [facility] Carbon Dioxide 27 22 - 31 mmol/L [facility] Anion Gap 10 5 - 15 mmol/L [facility] Calcium 9.2 8.5 - 10.5 mg/dL [facility] Est Glomerular Filtration Rate 100 >=60 mL/min/1. 73 m?? [facility] Comment: This patient? s estimated glomerular filtration rate (eGFR) is between 100 mL/min/1.73 m2 (patients with less muscle mass) and 116 mL/min/1.73 m2 (patients with more muscle mass) as determined by the CKD-EPI equation. Assessment of eGFR is not appropriate when creatinine concentrations are rapidly changing. For clinical decisions where creatinine clearance will affect therapy, a 24-hour urine creatinine clearance may be advised. Assignment of CKD stage 1 - 5 for patients with an eGFR near the transition point between stages may be based on clinical assessment of muscle mass and symptoms in addition to eGFR. Blood 01/30/2021 3:39 PM EST 01/30/2021 4:07 PM EST Narrative Resulting Agency Comment Spec In Lab Anton Márquez MD [place] [address] documented in this encounter Visit Diagnoses Diagnosis Peripartum cardiomyopathy Peripartum cardiomyopathy, unspecified as to episode of care documented in this encounter Care Teams Plastic Fixture Builder Relationship Specialty Start Date End Date Pietro Son PA [address] [place] [address] PCP - General Internal Medicine 09/27/20 documented as of this encounter
--- OUTSIDE RECORDS SUMMARY | 2024-01-03 13:10 | XMS_ITS | Encounter Summary ---
Author Organization [facility] [place] [address] Care Team Providers Care Oil Well Drilling Manager Name Role Phone Pietro Son Primary Care Provider [phone] Encounter Details Date Type Department Care Team (Latest Contact Info) Description 02/24/2022 Travel Social History Tobacco Use Types Packs/Day [...] 1:00 PM EST Appointment Non-[place] [phone] Anton Márquez MD [facility] [place] [address] 01/27/2024 3:00 PM EST Office Visit Cardiology at [address] [phone] Anton Márquez MD [facility] [place] [address] documented as of this encounter Visit Diagnoses Not on filedocumented in this encounter Care Teams Oil Well Drilling Manager Relationship Specialty Start Date End Date Pietro Son PA [address] [address] PCP - General Internal Medicine 09/27/20 documented as of this encounter
--- OUTSIDE RECORDS SUMMARY | 2024-01-03 13:10 | XMS_ITS | Encounter Summary ---
Author Organization [facility] [place] [address] Care Team Providers Care Rigging Loft Mechanic Name Role Phone Pietro Son Primary Care Provider [phone] Encounter Details Date Type Department Care Team (Late st Contact Info) Description 02/26/2023 Telephone Cardiology at [address] [phone] Anton Márquez MD [facility] [place] [address] [place] [address] Social History Tobacco Use Types Packs/Day Years [...] AM EDT documented as of this encounter Miscellaneous Notes * Telephone Encounter - Ariadna Maldonado - 02/26/2023 12:41 PM EST Patient is calling back and states to please contact her to schedule follow up visit when available. Patient states that she has enough medication left but will need refills of metoprolol succinate XL (Toprol-XL) 25 mg Tablet Sustained Release 24 hr and spironolactone (Aldactone) 25 mg Tablet Sent to [facility] in [facility] please. Patient states that she had recent test and would like to know if her ejection fraction has changed? Please call to advise. documented in this encounter Plan of Treatment Upcoming Encounters Date Type Department Care Team (Late st Contact Info) Description 01/27/2024 1:00 PM EST Appointment Non-[place] [phone] Anton Márquez MD [facility] [place] [address] 01/27/2024 3:00 PM EST Office Visit Cardiology at [address] [phone] Anton Márquez MD [facility] [place] [address] documented as of this encounter Visit Diagnoses Not on filedocumented in this encounter Care Teams Rigging Loft Mechanic Relationship Specialty Start Date End Date Pietro Son PA Dacia [address] [place] [id number] PCP - General Internal Medicine 09/27/20 documented as of this encounter
--- OUTSIDE RECORDS SUMMARY | 2024-01-03 13:10 | XMS_ITS | Encounter Summary ---
[place] [address] Care Team Providers Care Video Machines Mechanic Name Role Phone Pietro Son Primary Care Provider [phone] Encounter Details Date Type Department Care Team (Late st Contact Info) Description 09/30/2021 Telephone Cardiology at [address] [phone] Ariela Solo, RN Social History Tobacco Use Types Packs/Day [...] encounter Miscellaneous Notes * Telephone Encounter - Ariela Solo, RN - 09/30/2021 3:08 PM EDT RTC to Mrs Dixon regarding her Telephone call to make sure her prescription has been sent to [facility]for her, from our pharmacy. Unable to leave , as Box is full Ariela Solo (Jodie), RN, BSN [facility] documented in this encounter Plan of Treatment Upcoming Encounters Date Type Department Care Team (Late st Contact Info) Description 01/27/2024 1:00 PM EST Appointment Non-Invasive [place] [address] Anton Márquez MD [facility] [place] [address] 01/27/2024 3:00 PM EST Office Visit Cardiology at [address] [phone] Anton Márquez MD [facility] [place] [address] documented as of this encounter Visit Diagnoses Not on filedocumented in this encounter Care Teams Video Machines Mechanic Relationship Specialty Start Date End Date Pietro Son PA [address] [place] [address] PCP - General Internal Medicine 09/27/20 documented as of this encounter
--- OUTSIDE RECORDS SUMMARY | 2024-01-03 13:10 | XMS_ITS | Encounter Summary ---
[place] [address] Care Team Providers Care Retail Product Demo Specialist Name Role Phone Pietro Son Primary Care Provider [phone] Reason for Referral * Diagnostic Test (Routine) - Closed Specialty Diagnoses / Procedures Referred By Marvin vo Referred To Contact Cardiology Diagnoses Chronic systolic heart failure Procedures Echocardiogram Transthoracic Anton Márquez MD [facility] [place] [address] [facility] [place] [address] Referral ID Status Reason Start Date Expiration Date V isits Requested Visits Authorized [id number] Closed Specialty Service Requested 11/28/2021 11/28/2022 1 1 Encounter Details Date Type Department Care Team (Late st Contact Info) Description 11/28/2021 9:30 AM EDT Office Visit Cardiology at [address] [phone] Anton Márquez MD [facility] [place] [address] Chronic systolic heart failure Social History Tobacco [...] AM EDT documented as of this encounter Last Filed Vital Signs Vital Sign Reading Time Taken Comments Blood Pressure 126/74 11/28/2021 9:27 AM EDT Pulse 72 11/28/2021 9:27 AM EDT Temperature - - Respiratory Rate - - Oxygen Saturation 100% 11/28/2021 9:2 7 AM EDT Inhaled Oxygen Concentration - - Weight 94.3 kg (207 lb 12.8 oz) 11/28/2021 9:27 AM EDT Height 177.8 cm (5' 10) 11/28/2021 9:2 7 AM EDT patient reported Body Mass Index 29.82 11/28/2021 9:27 AM EDT documented in this encounter Patient Instructions * Patient Instructions* Anton Márquez MD - 11/28/2021 9:30 AM EDT Today we increased your entresto to the next dose up. For now, try taking 2 tablets of the pills you have twice a day. If you get dizzy, please call my office at [phone] and we'll decide what todo together. Keep taking everything else the same way. documented in this encounter Progress Notes * Anton Márquez MD - 11/28/2021 9:30 AM EDT Images from the original note were not included. CARDIOLOGY OUTPATIENT NEW PATIENT NOTE PRIMARY CARE PROVIDER: GABRIELLA Mayer Chief Complaint: Mary Porras is a 26 y.o. 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 LVEF currently 35-40%. -Pre- LVEF, last 04/19/2017 59%. LVEF had dropped to 45% in early . Euvolemic. Started on metoprolol 25mg XL daily. -Her LV function improved mildly to 54% on metoprolol XL monotherapy. -Late LVEF 35% with an LV end-diastolic dimension increasing from 4.9 to 5.9 cm at 32 weeks. -Her TTE 09/2021 shows stable, moderately reduced LVEF 35 to 40%. Pre- weight 160lb. Her weight on admission for delivery was 216 pounds and BNP 77. Weight on discharge 206lb. ProBNP 125. Last visit 09/2021: main complaint is low energy and dyspnea and inability to lose weight. She had increased her spironolactone to 50mg on her own and reports this made her breathing better. I startedentresto. Today she has stable weight again. She is active during the day but does not do any specific exercise. She is interested in starting a swimming program and today we looked up together any local poolsin her area. She has not had any cardiovascular hospitalizations or emergency department visits. Last Wednesday URI- ED visit. Prior time got steroids. This time got amoxicillin and an anti-inflammatory for migraine. Toradol. Had pleuritic chest pain and pressure with breathing. Was there for 4 hours. Current Weight 206-207lb. Cardiac ROS: Denies chest pain, chest tightness, chest pressure, + mild dyspnea on exertion after half mile walking,orthopnea,PND,trace LE edema, palpitations, syncope Systemic: Denies side effects to medications. PROBLEM LIST: Patient Active Problem List Diagnosis ??? Numbness ??? Cardiomyopathy, peripartum, antepartum ??? 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 Chronic systolic heart failure ??? Supervision of high risk in third trimester ??? Sinus tachycardia ??? Cardiomyopathy 1. Nonischemic dilated cardiomyopathy Presented age 4 months (1995) with CHF and severely dilated hypokinetic LV. 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 Treated with immunoglobulin Slow improvement in sx and LV function over years with low normal LVEF, No CHF sx. Treated with vasotec, coumadin, b sunitha, Digoxin, lasix. Meds stopped age 7-8 y. Echo 06/30/2013 (22 weeks ): LVEF 51% with diffuse hypokinesis and mild RV and LV dilitation(LVEDD 6 cm). Trace MR, TR. Est PAS 15. B-sunitha initiated 06/30/13 MEDICATIONS: Current Outpatient Medications Medication Sig Dispense Refill ??? PARoxetine CR (Paxil-CR) 25 mg Tablet Sustained Release 24 hr Take 25 mg by mouth every morning. We'll double check dose ??? sacubitriL-valsartan (Entresto) 49-51 mg Tablet tablet Take 1 tablet by mouth 2 times daily. 90tablet 3 ??? fish oil-omega-3 fatty acids 1,000 mg Capsule Take 2 g by mouth daily. ??? spironolactone (Aldactone) 25 mg Tablet Take 1 tablet by mouth daily. 90 tablet 3 ??? metoprolol succinate XL (Toprol-XL) 25 mg Tablet Sustained Release 24 hr Take 1 tablet by mouthdaily. 90 tablet 5 ??? ibuprofen (Advil) 600 mg Tablet Take 1 tablet by mouth every 6 hours as needed for Pain. 30 tablet 5 ??? polyethylene glycoL (Miralax) 17 gram/dose Powder Take 17 g by mouth daily. 255 g 3 ??? magnesium 250 mg Tablet Take by mouth. ??? iron,carb/vit C/vit B12/folic (IRON 100 PLUS ORAL) Take by mouth. No current facility-administered medications for this visit. Family history: Family History Problem Relation Age of Onset ??? Coronary Artery Disease Unknown ??? Cancer Unknown ??? Type 2 Diabetes Unknown Social history: Social History Tobacco Use ??? Smoking status: Former Smoker ??? Smokeless tobacco: Never Used ??? Tobacco comment: smokes weed Vaping Use ??? Vaping Use: Every day Substance Use Topics ??? Alcohol use: Not Currently ??? Drug use: Yes Types: Marijuana ROS: 11 point ros either negative or per HPI Objective: Patient Vitals for the past 24 hrs: Pulse BP SpO2 11/28/21 0927 72 126/74 100 % Gen: pleasant adult in NAD Eyes: Non-injected, no scleral icterus HEENT: atraumatic, MMM Cor: rrr, s1/s2 of nl character and amplitude, no m/r/g. Estimated RAP 5. Carotids without bruit. Pulm: CTAB. Normal diaphragmatic movement without use of accessory muscles Ab: soft, nt, no hernias Ext: no c/c/e. Dp/pt ++ Neuro: without focal deficit Skin: WWP, no rashes nor ulcers Psych: Well kempt, normal affect and insight TESTING: I have reviewed the pertinent outside records, laboratory data, and imaging studies. I personally reviewed the images and developed my own interpretation of the echocardiogram, stress tests,and CT scan if available, as well as the chest xray, and ECG. Pertinent results for this evaluationare recorded in the HPI. EKG: NSR, normal ekg Assessment and Plan: Problems: #NICM: Recurrent peripartum cardiomyopathy. Acute on chronic systolic heart failure. ACC/AHA stage C. Euvolemic and well compensated on physical exam. NYHA II. The following plan was provided in writin) increase ENTRESTO to 49-51 mg twice daily 2) Continue spironolactone and metoprolol 25mg daily. 3) Get your labs at [facility] when you are on the new dose of entresto.. Call me when you get labs. 4) RTC 3 months with TTE #Palps: Z[employer] monitor Contact information: Best number to reach Mary [phone] (cell) ok to leave messages Best number to reach Anderson Phelan [phone]( boyfriendcell) ok to leave messages Soraya Best [phone]. Return in about 3 months (around 02/27/2022) for In Person in TTE. Anton Márquez MD 11/28/2021 12:55 PM I spent at least 35 minutes of time on this patient encounter on the date of service performing activities related to: ?preparing to see the patient (eg, review of tests) ?obtaining and/or reviewing separately obtained history ?performing a medically appropriate examination and/or evaluation ?counseling and educating the patient/family/caregiver ?ordering medications, tests, or procedures ?referring and communicating with other health day care aide (when not separately reported) ?documenting clinical information in the electronic or other health record ?independently interpreting results (not separately reported) and communicating results to the patient/family/caregiver ?care coordination (not separately reported) documented in this encounter Plan of Treatment Upcoming Encounters Date Type Department Care Team (Late st Contact Info) Description 01/27/2024 1:00 PM EST Appointment Non-[place] [address] Anton Márquez MD [facility] [place] [address] 01/27/2024 3:00 PM EST Office Visit Cardiology at [address] [phone] Anton Márquez MD [facility] [place] [address] documented as of this encounter Results * ECHO COMPLETE W CONTRAST (02/24/2023 2:05 PM EST) [facility] EF 39 HEARTLAB SYSTEM Anatomical Region Laterality Modality Cardiac Other 02/24/2023 12:5 1 PM EST Narrative 02/24/2023 3:25 PM EST [address] [place] [address] ? Echocardiogram Report Name: MARY PORRAS ?Study Date: 02/24/2023 12:51 PMBP: 96/66 mmHg ? Patient Location: : 1995 ? Height: 178 cm ? Account: [id number] Age: 27 yrs ? Weight: 99 kg Gender: Female ?BSA: 2.2 m2 Ordering Physician: ANTON MÁRQUEZ Referring Physician: ANTON MÁRQUEZ Performed By: Almita Jade RDCS Reason For Study: Chronic systolic heart failure Interpreting Fellow: Moises Leach. Exam Location: [facility]. Interpretation Summary The left ventricle is mildly dilated (EDVi 65 mL/m2) with moderately reduced systolic function. The estimated LVEF is 39% by Higginbotham's biplane method. There is moderate global hypokinesis. The right ventricle is normal in size with normal systolic function. The estimated RVSP is 18 mmHg (assuming RAP 3 mmHg). There is no significant valve disease present. Compared to the prior study dated 09/25/2021, there is no significant change in LVEF. If there is concern as to whether this LVEF is really under or over 35%, consider further evaluation with a cardiac MRI. Procedure Complete-96423. Image enhancement Optison was used for left ventricular opacification. Suboptimal quality. There is normal sinus rhythm. Left Ventricle Left ventricle is mildly dilated. Wall thickness is normal. There is no left ventricular outflow tract obstruction. There is no ventricular septal defect. Left ventricular systolic function is moderately reduced. The left ventricular ejection fraction is 39% by Higginbotham's biplane. Moderate global hypokinesis. There is no left ventricular thrombus. Right Ventricle The right ventricle is of normal size. Right ventricular systolic function is normal. Left Atrium The left atrium is normal. No abnormality of the interatrial septum is identified. Right Atrium The right atrium is normal. Aortic Valve The aortic valve is tricuspid. There is no aortic stenosis. There is no aortic regurgitation. Mitral Valve The mitral valve leaflets are thickened. There is no mitral stenosis. There is trace mitral regurgitation. Tricuspid Valve The tricuspid valve is structurally normal. There is trace tricuspid regurgitation. Pulmonic Valve The pulmonic valve appears to be structurally normal. There is trace pulmonic valve regurgitation. Great Arteries The aortic root is of normal size. No abnormalities are identified. The ascending aorta is not well visualized. No abnormalities of the pulmonary artery are identified. Venous Inferior vena cava is normal in size. Inferior vena cava collapse greater than 50% with respiration. Pericardium/Pleural There is no pericardial effusion. Hemodynamics The peak right ventricular systolic pressure is 18 mmHg. The estimated right atrial pressure is 3mmHg. Left ventricular diastolic function is normal. Left ventricular filling pressure is normal. Ejection Fraction ?2D Measurements ? Volumes EF(MOD-bp): 38.9 % ?IVSd: 0.99 cm ?LAV(MOD- bp) Indexed: ?LVIDd: 5.4 cm ?LVIDs: 4.6 cm ?28.0 ml/m2 ?LVPWd: 0.71 cm ? RA A4Cs_phl: 11.2 cm2 ?LV mass(C)d: 165.5 grams ? EDV(MOD- bp) Indexed: ?LV mass(C)dI: 76.5 grams/m2 ?64.9 ml/m2 ?Ao root diam: 3.0 cm ? ESV(MOD-bp) Indexed: ?Ao root diam index: 1.4 ?39.6 ml/m2 ?LVOT diam: 2.2 cm ?SV(LVOT): 68.7 ml ?TAPSE_phl: 1.6 cm ? SI(LVOT): 31.7 ml/m2 Doppler LV V1 VTI: 17.7 cm Ao V2 VTI: 18.7 cm Ao Max: 96.0 cm/sec Ao valve max: 3.7 mmHg Ao valve mean: 2.2 mmHg MV E max jourdan: 81.4 cm/sec MV A max jourdan: 55.1 cm/sec MV E/A: 1.5 MV dec time: 0.18 sec Lat Peak E' Jourdan: 14.8 cm/sec E/ e' (lat): 5.5 Med Peak E' Jourdan: 10.0 cm/sec E/e' (med): 8.1 E/e' Average: 6.8 TREY(I,D): 3.7 cm2 Dimensionless index Aov: 0.95 TR max jourdan: 195.2 cm/sec RVSP(TR): 18.2 mmHg I ?WMSI = 2.00 ? % Normal = 0 ?Segments ??Size X - Cannot ?2 - ?4 - ?1-2 ? small Interpret ?1 - Normal ?? Hypokinetic 3 - Akinetic Dyskinetic ?? 3-5 ? moderate 5 - ? 6-14 ?large Aneurysmal ?15-16 ?? diffuse Procedure Note Eric Bass MD - 02/24/2023 1 [place] [address] Echocardiogram Report Name: MARY PORRAS Study Date: 2:51 PMBP: 96/66 mmHg Patient Location: : 1995 Height: 178 cm Account: [id number] Age: 27 yrs Weight: 99 kg Gender: Female BSA: 2.2 m2 Ordering Physician: ANTON MÁRQUEZ Referring Physician: ANTON MÁRQUEZ Performed By: Almita Jade RDCS Reason For Study: Chronic systolic heart failure Interpreting Fellow: Moises Leach. Exam Location: [facility]. Interpretation Summary The left ventricle is mildly dilated (EDVi 65 mL/m2) with moderatelyreduced systolic function. The estimated LVEF is 39% by Higginbotham's biplane method.There is moderate global hypokinesis. The right ventricle is normal in size with normal systolic function. Theestimated RVSP is 18 mmHg (assuming RAP 3 mmHg). There is no significant valve disease present. Compared to the prior study dated 09/25/2021, there is no significantchange in LVEF. If there is concern as to whether this LVEF is really under or over35%, consider further evaluation with a cardiac MRI. Procedure Complete-[id number]. Image enhancement Optison was used for left ventricular opacification. Suboptimal quality. There is normal sinus rhythm. Left Ventricle Left ventricle is mildly dilated. Wall thickness is normal. There is noleft ventricular outflow tract obstruction. There is no ventricular septaldefect. Left ventricular systolic function is moderately reduced. The left ventricularejection fraction is 39% by Higginbotham's biplane. Moderate global hypokinesis. Thereis no left ventricular thrombus. Right Ventricle The right ventricle is of normal size. Right ventricular systolic functionis normal. Left Atrium The left atrium is normal. No abnormality of the interatrial septum isidentified. Right Atrium The right atrium is normal. Aortic Valve The aortic valve is tricuspid. There is no aortic stenosis. There is noaortic regurgitation. Mitral Valve The mitral valve leaflets are thickened. There is no mitral stenosis.There is trace mitral regurgitation. Tricuspid Valve The tricuspid valve is structurally normal. There is trace tricuspid regurgitation. Pulmonic Valve The pulmonic valve appears to be structurally normal. There is tracepulmonic valve regurgitation. Great Arteries The aortic root is of normal size. No abnormalities are identified. Theascending aorta is not well visualized. No abnormalities of the pulmonary arteryare identified. Venous Inferior vena cava is normal in size. Inferior vena cava collapse greaterthan 50% with respiration. Pericardium/Pleural There is no pericardial effusion. Hemodynamics The peak right ventricular systolic pressure is 18 mmHg. The estimatedright atrial pressure is 3mmHg. Left ventricular diastolic function is normal.Left ventricular filling pressure is normal. Ejection Fraction 2D Measurements Volumes EF(MOD-bp): 38.9 % IVSd: 0.99 cm LAV(MOD-bp)Indexed: LVIDd: 5.4 cm LVIDs: 4.6 cm 28.0 ml/m2 LVPWd: 0.71 cm RA A4Cs_phl: 11.2cm2 LV mass(C)d: 165.5 grams EDV(MOD-bp)Indexed: LV mass(C)dI: 76.5 grams/m2 64.9 ml/m2 Ao root diam: 3.0 cm ESV(MOD-bp)Indexed: Ao root diam index: 1.4 39.6 ml/m2 LVOT diam: 2.2 cm SV(LVOT): 68.7ml TAPSE_phl: 1.6 cm SI(LVOT): 31.7ml/m2 Doppler LV V1 VTI: 17.7 cm Ao V2 VTI: 18.7 cm Ao Max: 96.0 cm/sec Ao valve max: 3.7 mmHg Ao valve mean: 2.2 mmHg MV E max jourdan: 81.4 cm/sec MV A max jourdan: 55.1 cm/sec MV E/A: 1.5 MV dec time: 0.18 sec Lat Peak E' Jourdan: 14.8 cm/sec E/ e' (lat): 5.5 Med Peak E' Jourdan: 10.0 cm/sec E/e' (med): 8.1 E/e' Average: 6.8 TREY(I,D): 3.7 cm2 Dimensionless index Aov: 0.95 TR max jourdan: 195.2 cm/sec RVSP(TR): 18.2 mmHg I WMSI = 2.00 % Normal = 0 SegmentsSize X - Cannot 2 - 4 - 1-2small Interpret 1 - Normal Hypokinetic 3 - Akinetic Dyskinetic 3-5moderate 5 - 6-14large Aneurysmal 15-16diffuse Anton Márquez MD ECHO ORDERABLES documented in this encounter Visit Diagnoses Diagnosis Chronic systolic heart failure Chronic systolic heart failure documented in this encounter Care Teams Retail Product Demo Specialist Relationship Specialty Start Date End Date Pietro Son PA [address] [place] [address] PCP - General Internal Medicine 09/27/20 documented as of this encounter
--- OUTSIDE RECORDS SUMMARY | 2024-01-03 13:10 | XMS_ITS | Encounter Summary ---
[place] [address] Care Team Providers Care Statistician Theoretical Name Role Phone Pietro Son Primary Care Provider [phone] Reason for Referral * Diagnostic Test (Routine) - Closed Specialty Diagnoses / Procedures Referred By Contac t Referred To Contact Cardiology Diagnoses Chronic systolic heart failure Procedures Echocardiogram Transthoracic Sapphire Márquez MD [facility] [place] [address] [facility] [place] [address] Referral ID Status Reason Start Date Expiration Date V isits Requested Visits Authorized [id number] Closed Specialty Service Requested 11/28/2021 11/28/2022 1 1 Reason for Visit * Diagnostic Test (Routine) - Closed Specialty Diagnoses / Procedures Referred By Contac t Referred To Contact Cardiology Diagnoses Chronic systolic heart failure Procedures Echocardiogram Transthoracic Sapphire Márquez MD [facility] [place] [address] [facility] [place] [address] Referral ID Status Reason Start Date Expiration Date V isits Requested Visits Authorized [id number] Closed Specialty Service Requested 11/28/2021 11/28/2022 1 1 Encounter Details Date Type Department Care Team (Late st Contact Info) Description 02/24/2023 12:31 PM EST - 02/24/2023 11:59 PM EST Hospital Encounter Non-[place] [phone] Sapphire Márquez MD [facility] [place] [address] Chronic systolic heart failure Discharge Disposition: Home Social History Tobacco Use Types Packs/Day Years [...] AM EDT documented as of this encounter Medications at Time of Discharge Medication Sig Dispensed Refills Start Date End Date buPROPion XL (Wellbutrin XL) 150 mg Tablet Extended Release 24 hr Take 150 mg by mouth every morning. escitalopram oxalate (LEXAPRO) 5 mg Tablet Take 5 mg by mouth daily. sacubitriL-valsartan (Entresto) 49-51 mg Tablet tablet Take 1 tablet by mouth 2 times daily. Covered on month to month basis only (#60 with 11 refills). 60 tablet 11 02/24/2022 fish oil-omega-3 fatty acids 1,000 mg Capsule Take 2 g by mouth daily. polyethylene glycoL (Miralax) 17 gram/dose Powder Take 17 g by mouth daily. 255 g 3 01/25/2021 magnesium 250 mg Tablet Take by mouth. iron,carb/vit C/vit B12/folic (IRON 100 PLUS ORAL) Take by mouth. metoprolol succinate XL (Toprol-XL) 25 mg Tablet Sustained Release 24 hrIndications:Chronic systolic heart failure,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 Take 1 tablet by mouth daily. 90 tablet 3 02/24/2022 03/11/2023 spironolactone (Aldactone) 25 mg TabletIndications:Chronic systolic heart failure,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 Take 1 tablet by mouth daily. 90 tablet 3 02/24/2022 03/11/2023 documented as of this encounter Plan of Treatment Upcoming Encounters Date Type Department Care Team (Late st Contact Info) Description 01/27/2024 1:00 PM EST Appointment Non-[place] [address] Sapphire Márquez MD [facility] [place] [address] 01/27/2024 3:00 PM EST Office Visit Cardiology at [address] [phone] Sapphire Márquez MD [facility] [place] [address] documented as of this encounter Procedures Procedure Name Priority Date/Time Associated Diagnosis Comments ECHO COMPLETE W CONTRAST Routine 02/24/2023 2:05 PM EST Chronic systolic heart failure documented in this encounter Results * ECHO COMPLETE W CONTRAST (02/24/2023 2:05 PM EST) EF 39 HEARTLAB SYSTEM Anatomical Region Laterality Modality Cardiac Other 02/24/2023 12:5 1 PM EST Narrative 02/24/2023 3:25 PM EST [address] [place] [id number] ? Echocardiogram Report Name: LAYO PORRAS ?Study Date: 02/24/2023 12:51 PMBP: 96/66 mmHg ? Patient Location: : 1995 ? Height: 178 cm ? Account: [id number] Age: 27 yrs ? Weight: 99 kg Gender: Female ?BSA: 2.2 m2 Ordering Physician: SAPPHIRE MÁRQUEZ Referring Physician: SAPPHIRE MÁRQUEZ Performed By: Almita Jade RDCS Reason For Study: Chronic systolic heart failure Interpreting Fellow: Moises Leach. Exam Location: [facility]. Interpretation Summary The left ventricle is mildly [...] further evaluation with a cardiac MRI. Procedure Complete-[id number]. Image enhancement Optison was used for left [...] Note Eric Bass MD - 02/24/2023 [address] [place] [address] Echocardiogram Report Name: LAYO PORRAS Study Date: 2:51 PMBP: 96/66 mmHg Patient Location: : 1995 Height: 178 cm Account: [id number] Age: 27 yrs Weight: 99 kg Gender: Female BSA: 2.2 m2 Ordering Physician: SAPPHIRE MÁRQUEZ Referring Physician: SAPPHIRE MÁRQUEZ Performed By: Almita Jade RDCS Reason For Study: Chronic systolic heart failure Interpreting Fellow: Moises Laech. Exam Location: [facility]. Interpretation Summary The left ventricle is mildly [...] further evaluation with a cardiac MRI. Procedure Complete-[id number]. Image enhancement Optison was used for left [...] Dyskinetic 3-5moderate 5 - 6-14large Aneurysmal 15-16diffuse Sapphire Márquez MD ECHO ORDERABLES documented in this encounter Visit Diagnoses Diagnosis Chronic systolic heart failure documented in this encounter Administered Medications Inactive Administered Medications - up to 3 most recent administrations Medication Order MAR Action Action Date Dose Rate Site perflutren protein-A microsphers (Optison) (0.22 mg/mL) injection 1.5 mL 1.5 mL, Intravenous, ONCE PRN, 1 dose, Starting on Wed02/24/23 at 1405, Until Wed02/24/23 at 1340, for enhancement of sub-optimal echo images, Echo Lab (Intra-Procedure), Routine Given 02/24/2023 1:40 PM EST 1.5 mLs documented in this encounter Care Teams Statistician Theoretical Relationship Specialty Start Date End Date Pietro Son PA [address] [place] [address] PCP - General Internal Medicine 09/27/20 documented as of this encounter
--- OUTSIDE RECORDS SUMMARY | 2024-01-03 13:10 | XMS_ITS | Encounter Summary ---
Author Organization [facility] Address [address] [place] [address] Care Team Providers Care Associate Professor Name Role Phone Rustam Coppola MD Primary Care Provider [phone] Encounter Details Date Type Department Care Team (Late st Contact Info) Description 11/27/2004 Before PRISM Converted Visit (Maple) [facility] - Maple conversion [address] [place] [address] Chad Middleton MD [address] [place] [phone] Social History Tobacco Use Types Packs/Day Years Used Date Smoking Tobacco: Never Assessed Sex and Gender Information Value Date Recorded Sex Assigned at Not on file Gender Identity Not on file Sexual Orientation Not on file documented as of this encounter Progress Notes * Chad Middleton MD - 05/15/2009 3061 EST PROGRESS/FOLLOWUP NOTE- 11/27/2004 DIVISION OF PEDIATRIC CARDIOLOGY November 27, 2004 Rustam Coppola M.D. [facility] [address] [place] [address] Dear Sudhakar, I saw Mary in [facility] on 11/27/2004. She is an 8- 1/2- year- old whom I originally saw in her first year of life with apparent severe myocarditis. She presented in congestive heart failure but responded to anticongestive medications and slowly recovered ventricular function over the following year or two. She has a mild degreeof residual depression of her ventricular function but has been essentially without symptoms. I last saw her a little over a year ago. She says that she will sometimes feel somewhat dizzy after she has been running for a long period. She also will feelsick to her stomach but does not actually vomit. There are other times when she can play fairly actively and not experience any symptoms. She denies a sensation of tachycardia or palpitations at the time. She has also had occasional sharp, brief chest pain associated with exercise. She has had no chronic coughing, wheezing, or other respiratory difficulties. Her overall health has been good. She has not actually fainted at any point. She has not been hospitalized since her last visit here. We discontinued enalapril at her last visit. She is currently in the 3rd grade and says that she likes school. She comes to today's visit with her mother and her grandmother. Her mother feels that she is probably no different than she has been for several years. On physical examination today, she was a well- nourished, cooperative girl who appeared in good health. Her height was 133.2 cm and her weight 32 kg. Her blood pressure was 96/49 in the right arm, her pulse 88, and her resting respiratory rate was 24. Her femoral pulses felt normal, and her extremities were warm and well perfused. Her liver was not enlarged. No abdominal masses were palpated. Herprecordium was quiet. Her lungs were clear with equal aeration. Her neck veins were not visibly distended. Her thyroid did not feel enlarged. She had no clubbing or peripheral edema. She had a normalfirst heart sound and a physiologically split second heart sound of normal intensity. She had no sig nificant murmurs noted. Her electrocardiogram showed a normal axis with normal precordial voltages. Her T- waves were also normal as were her intervals. A 2- dimensional echo and Doppler study was again performed. Her left ventricle was minimally enlarged with mildly depressed ventricular function. There was minimal mitral regurgitation. In summary, Mary probably is unchanged with good ventricular function and excellent recovery from her severe myocarditis. I am not sure whether her symptoms of dizziness with exercise are cardiac related. They do not sound as though they are particularly likely to be arrhythmic in nature. However, I would appreciate it if we could get a 24- hour Holter some time in the next few months. I askedher mother to encourage Mary to be physically active with the Holter on so that we can exclude rhythm abnormalities with exercise. I am planning on seeing her again in another year but will followup if the Holter shows anything of concern. When she is a little older we can put her on a treadmill and see what her response to exercise is. She should continue with SBE prophylaxis as needed but no other medications at this time. If you have any specific concerns prior to her return in a year, please give me a call. Sincerely, Signed by Chad Middleton MD 12/03/2004 10:22 Jsoe Middleton [phone] Middleton MD Chad Middleton MD [phone] - Chad Middleton MD P - O2 Job ID: [id number] Document ID: [id number] cc: Rustam Coppola MD documented in this encounter Plan of Treatment Not on file documented as of this encounter Visit Diagnoses Not on filedocumented in this encounter Care Teams Associate Professor Relationship Specialty Start Date End Date Rustam Coppola MD [address] [place] [address] PCP - General 12/19/08 06/03/17 documented as of this encounter
--- OUTSIDE RECORDS SUMMARY | 2024-01-03 13:10 | XMS_ITS | Encounter Summary ---
[place] [address] Care Team Providers Care Certified Surgical Tech/First Assistant Name Role Phone Pietro Son Primary Care Provider [phone] Encounter Details Date Type Department Care Team (Late st Contact Info) Description 01/28/2021 Orders Only Cardiology at [address] [phone] Anton Márquez MD [facility] [place] [address] Chronic systolic heart failure; Other cardiomyopathy Social History Tobacco Use Types Packs/Day [...] 1:00 PM EST Appointment Non-Invasive [place] [address] Anton Márquez MD [facility] [place] [address] 01/27/2024 3:00 PM EST Office Visit Cardiology at [address] [place] [address] Anton Márquez MD [facility] [place] [address] Scheduled Orders Name Type Priority Associated Diagnoses Orde r Schedule EKG 12 Lead ECG Routine Chronic systolic heart failure Other cardiomyopathy As Needed for 3 Occurrences starting 01/28/2021 until 01/28/2022, 1 completed documented as of this encounter Results * EKG 12 Lead (01/28/2021 11:32 AM EST) Ventricular rate 68 BPM MUSE SYSTEM Atrial Rate 68 BPM MUSE SYSTEM P-R Interval 136 ms MUSE SYSTEM QRS Duration 84 ms MUSE SYSTEM Q-T Interval 400 ms MUSE SYSTEM QTC Calculated (Bezet) 425 ms MUSE SYSTEM Calculated P [place] 6 degrees MUSE SYSTEM Calculated R [place] 63 degrees MUSE SYSTEM Calculated T [place] 48 degrees MUSE SYSTEM INTERPRETATION Normal sinus rhythm Cannot rule out Anterior infarct , age undetermined ??vs lead placement Abnormal ECG When compared with ECG of 17-JAN-2021 20:06, No significant change was found Confirmed by Karen Cook ([id number]) on 01/28/2021 5:04:22 PM MUSE SYSTEM 01/28/2021 11:3 2 AM EST 01/28/2021 5:04 PM EST Anton Márquez MD ECG ORDERABLES MUSE SYSTEM documented in this encounter Visit Diagnoses Diagnosis Chronic systolic heart failure Other cardiomyopathy documented in this encounter Care Teams Certified Surgical Tech/First Assistant Relationship Specialty Start Date End Date Pietro Son PA [address] [place] [address] PCP - General Internal Medicine 09/27/20 documented as of this encounter
--- OUTSIDE RECORDS SUMMARY | 2024-01-03 13:10 | XMS_ITS | Encounter Summary ---
[place] [address] Care Team Providers Care Pathology Laboratory Aides Teacher Name Role Phone Pietro Son Primary Care Provider [phone] Reason for Visit * Reason Onset Date Comments Medication Refill 04/17/2021 Sprionolactone , Metoprolol Encounter Details Date Type Department Care Team (Late st Contact Info) Description 04/17/2021 Refill Cardiology at [address] [phone] Anton Márquez MD [facility] [place] [address] Medication Refill ( Sprionolactone, Metoprolol) Social History Tobacco Use Types Packs/Day Years [...] 1:00 PM EST Appointment Non-[place] [address] Anton Márquez MD [facility] [place] [address] 01/27/2024 3:00 PM EST Office Visit Cardiology at [address] [phone] Anton Márquez MD [facility] [place] [address] documented as of this encounter Visit Diagnoses Diagnosis Chronic systolic heart failure 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 documented in this encounter Care Teams Pathology Laboratory Aides Teacher Relationship Specialty Start Date End Date Pitero Son PA [address] [place] [address] PCP - General Internal Medicine 09/27/20 documented as of this encounter
--- OUTSIDE RECORDS SUMMARY | 2024-01-03 13:10 | XMS_ITS | Encounter Summary ---
[place] [address] Care Team Providers Care Certified Public Accountant Name Role Phone Pietro Son Primary Care Provider [phone] Reason for Visit * Reason Comments Medication Refill Encounter Details Date Type Department Care Team (Late st Contact Info) Description 03/03/2023 Refill Cardiology at [address] [phone] [address]ár[address] [facility] [place] [address] Medication Refill Social History Tobacco Use Types Packs/Day [...] 1:00 PM EST Appointment Non-Invasive Cardiology [place] [facility] [place] [address]árquez MD [facility] [place] [place] [address] 01/27/2024 3:00 PM EST Office Visit Cardiology at [address] [phone] [address] Márquez MD [facility] [place] [address] documented as of this encounter Visit Diagnoses Diagnosis Chronic systolic heart failure 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 documented in this encounter Care Teams Certified Public Accountant Relationship Specialty Start Date End Date Pietro Son PA [address] [place] [address] PCP - General Internal Medicine 09/27/20 documented as of this encounter
--- OUTSIDE RECORDS SUMMARY | 2024-01-03 13:10 | XMS_ITS | Encounter Summary ---
Author Organization [facility] Address [address] [place] [address] Care Team Providers Care Continuous Improvement Facilitator Name Role Phone Unavailable Primary Care Provider Unavailabl e Encounter Details Date Type Department Care Team (Latest Contact Info) Description 08/25/1999 11:00 EDT - 08/25/1999 11:59 EDT Hospital Encounter [address] [address] Chad Middleton MD [address] [place] [phone] Discharge Disposition: Auto Discharge Social History Tobacco Use Types Packs/Day Years Used Date Smoking Tobacco: Never Assessed Sex and Gender Information Value Date Recorded Sex Assigned at Not on file Gender Identity Not on file Sexual Orientation Not on file documented as of this encounter Discharge Disposition Disposition Code Departure Means Destination Auto Discharge documented in this encounter Plan of Treatment Not on file documented as of this encounter Visit Diagnoses Not on filedocumented in this encounter
--- OUTSIDE RECORDS SUMMARY | 2024-01-03 13:10 | XMS_ITS | Encounter Summary ---
[place] [address] Care Team Providers Care Chemical Production Machine Operator Name Role Phone Pietro Son Primary Care Provider [phone] Reason for Visit * Reason Comments Care Encounter Details Date Type Department Care Team (Latest Contact Info) Description 02/11/2021 1:30 PM EST Visit Obstetrics [place] [phone] Zuri Borden MD [facility]ST[facility] [place] [address] Cardiomyopathy, peripartum, antepartum; Encounter for care or examination of mother immediately after delivery Social History Tobacco Use Types Packs/Day Years [...] Sign Reading Time Taken Comments Blood Pressure 105/67 02/11/2021 1:46 PM EST Pulse 88 02/11/2021 1:46 PM EST Temperature 36.4 ??C (97.5 ??F) 02/11/2021 1:46 PM ES T Respiratory Rate 18 02/11/2021 1:46 PM EST Oxygen Saturation 99% 02/11/2021 1:46 PM EST Inhaled Oxygen Concentration - - Weight 91.3 kg (201 lb 3.2 oz) 02/11/2021 1:46 P M EST Height 177.8 cm (5' 10) 02/11/2021 1:46 PM EST Body Mass Index 28.87 02/11/2021 1:46 PM EST documented in this encounter Progress Notes * Selam Middleton MD - 02/11/2021 1:30 PM EST Department of [place]st[place] [address] 2 week Clinic Visit Patient name: Mary Porras Date of : 1995 Date of visit: 02/11/2021 Chief concern: 2 week assessment History of present illness: Mary Porras is a 25 y.o. female who presents for assessment at 2 weeks. On 01/22/2021, she underwent a repeat??Low Transverse Delivery with Bilateral??Salpingectomy, without complications. Her has been??complicated by the following:? 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 OB Hx: prior pLTC/S at 37w0d.? Mary reports she is feeling well. She saw Cardiology last week, and was offered two options--to continue on her triple therapy of metoprolol 25mg, enalapril 5mg and spironolactone 12.5mg daily or to start a one pill regimen called Entresto, which has shown to be superior to other RASi medications. Mary said that that that time, she was hoping to continue and so declined Entresto, however, her supply ran out and she is now formula feeding. She reports a stable mood on Zoloft 50 mg, declines additional psychotherapy. She is well supported at home, ambulating, passing flatus and BM, normal bladder habits, and denies any wew orthopnea, PND, LE edema, no PEC symptoms. No chest pain. No palpitations, presyncope, or syncope. Normal lochia. Pap NILM 08/16/20 Review of systems: All systems reviewed and negative except as above in HPI. Problem list: Patient Active Problem List Diagnosis Code ??? Cardiomyopathy I42.9 ??? High risk teen O09.899 ??? Sinus tachycardia R00.0 ??? Chronic systolic heart failure I50.22 ??? Supervision of high risk in third trimester O09.93 ??? 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 Cardiomyopathy, peripartum, antepartum O90.3 ??? Numbness R20.0 Past surgical history: Past Surgical History: Procedure Laterality Date ??? CENTRAL VENOUS CATHETER ??? HERNIA REPAIR ??? PRO DELIVERY ONLY 10/08/2013 @ DELIVERY performed by Meri Zimmerman MD at [facility] MAIN OR ??? PRO DELIVERY ONLY Midline 01/22/2021 @ DELIVERY (WRVU 16.13) performed by Reuben Cuellar MD at [facility] MAIN OR ??? PRO REMOVAL OF FALLOPIAN TUBE Bilateral 01/22/2021 @SALPINGECTOMY (WRVU 12.95) performed by Reuben Cuellar MD at [facility] MAIN OR Medications: Medications 02/11/21 1348 Medication Sig Taking? enalapriL (Vasotec) 5 mg Tablet Take 1 tablet by mouth daily. Yes spironolactone (Aldactone) 25 mg Tablet Take 0.5 tablets by mouth daily. Yes metoprolol succinate XL (Toprol-XL) 25 mg Tablet Sustained Release 24 hr Take 1 tablet by mouth daily. Yes oxyCODONE (Roxicodone) 5 mg Tablet Take 1 tablet by mouth every 4 hours as needed for Pain. Yes acetaminophen (Tylenol) 325 mg Tablet Take 2 tablets by mouth every 6 hours as needed for Pain. Yes ibuprofen (Advil) 600 mg Tablet Take 1 tablet by mouth every 6 hours as needed for Pain. Yes docusate sodium (Colace) 100 mg Capsule Take 1 capsule by mouth 2 times daily for 40 days. Yes polyethylene glycoL (Miralax) 17 gram/dose Powder Take 17 g by mouth daily. Yes sertraline (Zoloft) 50 mg Tablet Take 0.5 tablets by mouth daily. Yes magnesium 250 mg Tablet Take by mouth. Yes iron,carb/vit C/vit B12/folic (IRON 100 PLUS ORAL) Take by mouth. Yes vit 75/iron/folic/om3 (KHDIOI74-IMIX FUM-FOLIC AC-OM3 ORAL) Take by mouth. Yes lidocaine (Lidoderm) 5% Adhesive Patch, Medicated Apply 1 patch onto the skin daily. (leave on for 12 hours and remove for 12 hours) Patient not taking: Reported on 02/11/2021 Allergies: No Known Allergies Physical exam: BP 105/67 Pulse 88 Temp 36.4 ??C (97.5 ??F) (Temporal) Resp 18 Ht 177.8 cm (5' 10) Wt 91.3 kg (201 lb 3.2 oz) SpO2 99% No BMI 28.87 kg/m?? General: Pleasant, well developed female. Skin: Warm and well-perfused. No rashes. CV: Normal rate, regular rhythm, normal S1 and S2. No murmurs / rubs / gallops. Resp: Clear to auscultation bilaterally. No wheezes or crackles. Abdomen: Bowel sounds present, no masses or hepatosplenomegaly, soft, nontender, nondistended. Pfannenstiel incision closed with dermabond skin glue, no erythema or exudate Pelvic: deferred Extremities: No calf tenderness or lower extremity edema. Neuro: CNII - XII grossly intact. Assessment Mary Porras is a 25 y.o. who presents for her two week visit after her RCS and bilateral salpingectomy in the setting of her nonischemic cardiomyopathy, now well controlled on her threemedication regimen. She is doing well, recovering appropriately. Incision appears well healing, with expected numbness which could be a normal byproduct of her surgery. Discussed that her cardiomyopathy is currently well controlled, but since she is no longer , she can consider touching base with Cardiology to switch her medication to the second option. Message sent to Cards team to touch base with the patient. Recommended she maintain her [address] Zimmerman and her echocardiogram in February 2021. Discussed her plan for COVID vaccination; patient will try to get the vaccination at a local pharmacy given longer wait times here at . Plan: 1. Continue routine care 2. Maintain 6 week PP visit 3. Discuss changing her cardiomyopathy medications given her cessation of 4. Recommended COVID vaccination 5. Reviewed reasons to call or return The patient was discussed with Dr Borden, attending M, with whom the plan was formulated. Selam Middleton MD, PGY4 02/11/2021 * Zuri Borden MD - 02/11/2021 1:30 PM EST The case was discussed at the time of the visit or immediately after the visit. The assessment and plan were formulated in discussion with me and I agree with them as documented. I have reviewed the history, physical exam, assessment and plan with the resident. Major issues discussed today: Stable two weeks post delivery, in complicated by cardiomyopathy. No signs of worsening cardiac status at this time. Plan: Ongoing care as scheduled with cardiology. Scheduled for f/u in February for 6 wk pp and cardiology f/u. Ms. Porras is not yet vaccinated for COVID. The first available appointment for vaccination here at [facility] was in March. She will try to schedule an appointment sooner at [facility] near her home. Zuri BORDEN MD documented in this encounter Plan of Treatment Upcoming Encounters Date Type Department Care Team (Late st Contact Info) Description 01/27/2024 1:00 PM EST Appointment Non-[place]vasive [place] [address] Anton Márquez MD [facility] [place] [address] 01/27/2024 3:00 PM EST Office Visit Cardiology at [address] [phone] Anton Márquez MD [facility] [place] [address] documented as of this encounter Visit Diagnoses Diagnosis Cardiomyopathy, peripartum, antepartum Peripartum cardiomyopathy, antepartum condition or complication Encounter for care or examination of mother immediately after delivery care and examination immediately after delivery documented in this encounter Care Teams Chemical Production Machine Operator Relationship Specialty Start Date End Date Pietro Son PA [address] [place] [id number] PCP - General Internal Medicine 09/27/20 documented as of this encounter
--- OUTSIDE RECORDS SUMMARY | 2024-01-03 13:10 | XMS_ITS | Encounter Summary ---
Author Organization [facility] Address [address] [place] [address] Care Team Providers Care Senior Director Name Role Phone Unavailable Primary Care Provider Unavailabl e Encounter Details Date Type Department Care Team (Latest Contact Info) Description 02/12/2000 11:48 EST - 02/12/2000 11:59 [facility] Hospital Encounter [facility] [address] [place] [address] Peter Andrade, DDS [address] [place] [address] Discharge Disposition: Auto Discharge Social History Tobacco [...]
--- OUTSIDE RECORDS SUMMARY | 2024-01-03 13:10 | XMS_ITS | Encounter Summary ---
Author Organization [facility] Address [address] [place] [address] Care Team Providers Care Brim Pouncing Machine Operator Name Role Phone Rustam Coppola MD Primary Care Provider [phone] Encounter Details Date Type Department Care Team (Late st Contact Info) Description 12/24/2005 Before PRISM Converted Visit (Maple) [facility] - Maple conversion [address] [place] [address] Chad Middleton MD [address] [place] [phone] Social History Tobacco Use Types Packs/Day Years Used Date Smoking Tobacco: Never Assessed Sex and Gender Information Value Date Recorded Sex Assigned at Not on file Gender Identity Not on file Sexual Orientation Not on file documented as of this encounter Progress Notes * Chad Middleton MD - 03/08/2009 1904 EST PROGRESS/FOLLOWUP NOTE - 12/24/2005 December 25, 2005 Rustam Coppola MD [facility] [address] [place] [address] Dear Sudhakar: I saw Mary on December 24, 2005. As you know, she is about a 9-1/2- year- old who presented in infancy with apparent myocarditis and severe ventricular dysfunction. She slowly recovered over her first couple of years of life with return of systolic function to normal. Her left ventricle has been mildly dilatedand appears a little thin but works well and she has essentially been without symptoms. I last saw her a year ago. In the interim things have been going well. Her mother feels that her overall energy level and exercise tolerance are probably near normal.She sometimes says she cannot dophysical activities, but mostly if she wants to be excused from them. She has no difficulty runningup several flights of stairs. She does not have a history of chronic coughing, wheezing or other respiratory difficulties.She has had no reports of palpitations, dizziness or fainting. She says that she sometimes gets some chest pain when she is upset and her mother says that she will get chest pain if she is told to clean her room. Mary is not currently on any medications. She is aware of SBE prophylaxis. She is currently in the 3rd grade. Her mother says she does have a little difficultyfocusing in school. On physical examination today Mary looked very well. Her height was 138.4, the 50th to 75th percentile, and her weight 34.4 kg, the 75th percentile. Her blood pressure was 113/72 in the right arm.Her resting pulse was 88 and her resting respiratory rate was 18. Her femoral pulses felt strong and her extremities were warm and well perfused. Her liver was not palpably enlarged. No abdominal masses were appreciated. Her abdomen was soft and nontender. Her precordium was quiet. Her lungs sounded clear with symmetric aeration. Her neck veins were not distended. Her lips and nailbeds were pink.She had no clubbing or peripheral edema. She had a normal first heart sound and physiologically split second heart sound of normal intensity. She had grade 1 to 2/6 very soft mid systolic murmur nearthe apex. I did not hear a diastolic murmur. Her electrocardiogram was normal. A two- dimensional echo and Doppler study was repeated. This demonstrated a left ventricular size in the upper range of normal with normal systolic function. Her wall thickness appeared a little thincompared to the chamber size. There was a minimal amount of mitral regurgitation and a trace of aortic regurgitation. In summary, Mary remains stable with adequate ventricular performance. She should continue to get SBE prophylaxis and I would like to see her again in another year. She can participate in all physical activities but should be allowed to stop and rest if she feels particularly short of breath or fatigued. Her mother will let us know if she is having any new symptoms or problems. Do not hesitateto give me a call if you have questions about today's visit or our recommendations. Sincerely, Signed by Chad Middleton MD 12/30/2005 08:29 [facility] [id number] B Yeager, MD Chad Middleton MD Division of Pediatric Cardiology [phone] - Chad Middleton MD P - O1 Job ID: [id number] Document ID: [id number] cc: Rustam Coppola MD documented in this encounter Plan of Treatment Not on file documented as of this encounter Visit Diagnoses Not on filedocumented in this encounter Care Teams Brim Pouncing Machine Operator Relationship Specialty Start Date End Date Rustam Coppola MD [address] [place] [address] PCP - General 12/19/08 06/03/17 documented as of this encounter
--- OUTSIDE RECORDS SUMMARY | 2024-01-03 13:10 | XMS_ITS | Encounter Summary ---
[place] [address] Care Team Providers Care Launching Pad Mechanic Name Role Phone Pietro Son Primary Care Provider [phone] Reason for Visit * Reason Comments Medication Refill Encounter Details Date Type Department Care Team (Late st Contact Info) Description 06/26/2023 Refill Cardiology at [address] [address] Anton Márquez MD [facility] [place] [address] Medication Refill Social History Tobacco Use Types [...] 1:00 PM EST Appointment Non-Invasive Cardiology Lab [facility] [place] [address] Anton Márquez MD [facility] [place] [address] 01/27/2024 3:00 PM EST Office Visit Cardiology at [address] [phone] Anton Márquez MD [facility] [place] [address] documented as of this encounter Visit Diagnoses Diagnosis Cardiomyopathy, unspecified type- Primary documented in this encounter Care Teams Launching Pad Mechanic Relationship Specialty Start Date End Date Pietro Son PA [address] [place] [address] PCP - General Internal Medicine 09/27/20 documented as of this encounter
--- OUTSIDE RECORDS SUMMARY | 2024-01-03 13:10 | XMS_ITS | Encounter Summary ---
[place] [address] Care Team Providers Care Toe Laster Name Role Phone Pietro Son Primary Care Provider [phone] Encounter Details Date Type Department Care Team (Late st Contact Info) Description 02/25/2023 Telephone Cardiology at [address] [phone] Ariela Solo, RN Social History [...] Telephone Encounter - Ariela Solo, RN - 02/25/2023 3:12 PM EST TC to Ms Porras to convey message and recommendations from Dr Márquez. Wrote [facility] message also, with message and phone number for Mr Porras to call the cardiology clinic for a follow up appointment, for any questions, as well as, any needed refills. Ariela Solo (Jodie), RN, BSN Cardiology Ambulatory Clinic * Telephone Encounter - Ariela Solo RN - 02/25/2023 3:12 PM EST ----- Message from Anton Márquez MD sent at 02/25/2023 2:20 PM EST ----- Mary has a cardiomyopathy and has not been seen in a year. I don't know if she still has/is taking her medications but her heart muscle needs them (spironolactone, entresto, metop XL). Jenn-can you call and see if she needs refills while waiting for followup? Followup: Next available with me or a blue team EDWIN with labs (ordered). Needs to optimize GDMT. ----- Message ----- From: [facility] Cardiology In Sent: 02/24/2023 3:26 PM EST To: Anton Márquez MD documented in this encounter Plan of Treatment Upcoming Encounters Date Type Department Care Team (Late st Contact Info) Description 01/27/2024 1:00 PM EST Appointment Non-Invasive [place] [phone] Anton Márquez MD [facility] [place] [address] 01/27/2024 3:00 PM EST Office Visit Cardiology at [address] [phone] Anton Márquez MD [facility] [place] [address] documented as of this encounter Visit Diagnoses Not on filedocumented in this encounter Care Teams Toe Laster Relationship Specialty Start Date End Date Pietro Son PA [address] [place] [address] PCP - General Internal Medicine 09/27/20 documented as of this encounter
--- OUTSIDE RECORDS SUMMARY | 2024-01-03 13:10 | XMS_ITS | Encounter Summary ---
[place] [address] Care Team Providers Care Final Coat Sprayer Name Role Phone Pietro Son Primary Care Provider [phone] Encounter Details Date Type Department Care Team (Latest Contact Info) Description 10/20/2021 10:05 AM EDT Laboratory Appointment Lab [address] [place] [address] Vaginal bleeding between periods; Chronic systolic heart failure Social History Tobacco [...] AM EDT documented as of this encounter Progress Notes * Anton Márquez MD - 10/20/2021 10:05 AM EDT Mary, Your labs look good on entresto, aldactone, and metoprolol. I will see you in November. Dr. Lucas documented in this encounter Plan of Treatment Upcoming Encounters Date Type Department Care Team (Late st Contact Info) Description 01/27/2024 1:00 PM EST Appointment Non-Invasive [place] [phone] Anton Márquez MD [facility] [place] [address] 01/27/2024 3:00 PM EST Office Visit Cardiology at [address] [address] Anton Márquez MD [facility] [place] [address] documented as of this encounter Procedures Procedure Name Priority Date/Time Associated Diagnosis Comments HEMOGRAM Routine 10/20/2021 10:08 AM EDT Vaginal bleeding between periods DIFFERENTIAL, AUTOMATED Routine 10/20/2021 10:08 AM EDT Vaginal bleeding between periods HC CBC,PLT & AUTO DIFF Routine 10/20/2021 10:08 AM EDT Vaginal bleeding between periods HC PROBNP Routine 10/20/2021 10:08 AM EDT Chronic systolic heart failure BASIC METABOLIC PANEL Routine 10/20/2021 10:08 AM EDT Chronic systolic heart failure documented in this encounter Results * Differential, Automated (10/20/2021 10:08 AM EDT) Neutrophil % 56.7 % [facility] Neutrophil Absolute 3.95 1.70 - 6.10 x10(3)/[facility] Lymph % 30.0 % [facility] Lymphocytes Abs 2.1 0.9 - 3.2 x10(3)/[facility] Monocyte % 7.3 % [facility] Monocyte Abs 0.5 0.3 - 0.9 x10(3)/[facility] Eos % 5.0 % [facility] Eosinophils Abs 0.4 0.0 - 0.4 x10(3)/[facility] Basophil % 0.9 % [facility] Baso Absolute 0.1 0.0 - 0.1 x10(3)/[facility] Immature Gran % 0.10 % [facility] Comment: Immature granulocytes(IG's)percentage and absolute count will include metamyelocytes, myelocytes, and promyelocytes. Blood smears from CBCs yielding IG's will be scanned manually for concordance. If this scan disagrees with the automated IG or if promyelocytes are noted, a manual differential will be performed. Immature Gran Absolute 0.01 0.00 - 0.04 x10(3)/[facility] Blood 10/20/2021 10:0 8 AM EDT 10/20/2021 10:38 AM EDT Narrative Resulting Agency Comment Spec In Lab Anton Márquez MD HEMATOLOGY FAREED HUGHES [place] Organization Address City/State/ZIP Co de Phone Number [facility] [place] [address] * Hemogram (10/20/2021 10:08 AM EDT) White Blood Cell 7.0 4.0 - 9.5 x10(3)/[facility] Red Blood Cell 4.73 4.00 - 5.21 x10(6)/[facility] Hemoglobin 13.7 11.7 - 15.5 g/dL [facility] Hematocrit 41.3 35.7 - 45.8 % [facility] Mean Cell Volume 87.3 82.6 - 94.4 fL [facility] Mean Cell Hemoglobin 29.0 27.1 - 32.0 pg [facility] Mean Cell Hemoglobin Concentration 33.2 31.7 - 35.0 g/dL [facility] Platelet 309 145 - 357 x10(3)/[facility] RDW Standard Deviation 39.8 37.0 - 46.0 fL [facility] RDW coefficient of variation 12.5 11.5 - 14.1 % [facility] Mean Platelet Volume 10.6 7.6 - 12.9 fL [facility] NRBC% auto 0.0 % [facility] NRBC Absolute 0.000 0.000 - 0.000 x10(3)/[facility] Blood 10/20/2021 10:0 8 AM EDT 10/20/2021 10:38 AM EDT Narrative Resulting Agency Comment Spec In Lab Anton Márquez MD HEMATOLOGY ORDE SAUL Performing Organization Address City/[facility]/ZIP Co de Phone Number [facility] [place] [place] [address] * pro-Brain Natriuretic Peptide (10/20/2021 10:08 AM EDT) NT-proBNP 81 <=124 pg/mL [facility] Blood 10/20/2021 10:0 8 AM EDT 10/20/2021 10:38 AM EDT Narrative Resulting Agency Comment Spec In Lab Anton Márquez MD CHEMISTRY ORDER JERRY Performing Organization Address City/[facility]/ZIP Co de Phone Number [facility] [place] [address] * Basic Metabolic Panel (non-fasting) (10/20/2021 10:08 AM EDT) Glucose 87 65 - 199 mg/dL [facility] Comment:Diabetes: >=200 mg/d L plus symptoms Blood Urea Nitrogen 9 8 - 18 mg/dL [facility] Creatinine 0.73 0.70 - 1.20 mg/dL [facility] Sodium 139 135 - 145 mmol/L [facility] Potassium 4.4 3.5 - 5.0 mmol/L [facility] Comment: Please note: ??Patients with WBC >100,000 may have falsely elevated Potassium levels. ??For accurate Potassium quantification in these patients send serum separator tube (gold top) for subsequent determinations. ??Contact the Clinical Chemistry Laboratory if there are any questions. Chloride 103 98 - 107 mmol/L [facility] Carbon Dioxide 28 22 - 31 mmol/L [facility] Anion Gap 8 5 - 15 mmol/L [facility] Calcium 9.8 8.5 - 10.5 mg/dL [facility] Est Glomerular Filtration Rate 117 >=60 mL/min/1. 73 m?? [facility] Comment: This patient's estimated GFR was calculated using the 2020 CKD-EPI equation. The estimated GFR can vary from the measured GFR by up to 30% in the absence of rapidly changing kidney function. Assessment of the estimated GFR is not appropriate when creatinine concentrations are rapidly changing. For clinical situations in which a more precise estimate of GFR is necessary, consider alternative methods of GFR estimation such as a 24-hour urine creatinine clearance. Assignment of CKD stage 1-5 for patients with an eGFR near the transition point between stages may be based on clinical assessment of muscle mass and symptoms in addition to eGFR. Blood 10/20/2021 10:0 8 AM EDT 10/20/2021 10:38 AM EDT Narrative Resulting Agency Comment Spec In Lab Anton Márquez MD CHEMISTRY ORDER JERRY [facility] [place] [place] [address] documented in this encounter Visit Diagnoses Diagnosis Vaginal bleeding between periods Metrorrhagia Chronic systolic heart failure documented in this encounter Care Teams Final Coat Sprayer Relationship Specialty Start Date End Date Pietro Son PA [address] [place] [address] PCP - General Internal Medicine 09/27/20 documented as of this encounter
--- OUTSIDE RECORDS SUMMARY | 2024-01-03 13:10 | XMS_ITS | Encounter Summary ---
[place] [address] Care Team Providers Care Electric Relay Tester Name Role Phone Pietro Son Primary Care Provider [phone] Encounter Details Date Type Department Care Team (Late st Contact Info) Description 01/28/2021 Telephone Obstetrics [place] [address] Rivka Nichole RN Social History Tobacco Use Types Packs/Day [...] encounter Miscellaneous Notes * Telephone Encounter - Rivka Nichole RN - 01/28/2021 10:14 AM EST Called to patient to check in on her following on 01/22/2021 in the setting of cardiomyopathy. Patient did not answer and I was unable to leave a vm due to patient's mailbox being full. Will send her a BubbleGab message. documented in this encounter Plan of Treatment Upcoming Encounters Date Type Department Care Team (Late st Contact Info) Description 01/27/2024 1:00 PM EST Appointment Non[place] [address] Anton Márquez MD [facility] [place] [address] 01/27/2024 3:00 PM EST Office Visit Cardiology at [address] [phone] Anton Márquez MD [facility] [place] [address] documented as of this encounter Visit Diagnoses Not on filedocumented in this encounter Care Teams Electric Relay Tester Relationship Specialty Start Date End Date Pietro Son PA [address] [place] [address] PCP - General Internal Medicine 09/27/20 documented as of this encounter
--- OUTSIDE RECORDS SUMMARY | 2024-01-03 13:10 | XMS_ITS | Encounter Summary ---
Author Organization [facility] Address [address] [place] [address] Care Team Providers Care Ndt Inspector Name Role Phone Rustam Coppola MD Primary Care Provider [phone] Encounter Details Date Type Department Care Team (Late st Contact Info) Description 12/23/2006 Before PRISM Converted Visit ([place]) [facility] - [place] conversion [address] [place] [address] Chad Middleton MD [address] [place] [phone] Social History Tobacco Use Types Packs/Day Years Used Date Smoking Tobacco: Never Assessed Sex and Gender Information Value Date Recorded Sex Assigned at Not on file Gender Identity Not on file Sexual Orientation Not on file documented as of this encounter Progress Notes * Chad Middleton MD - 01/20/2009 0137 EST PROGRESS/FOLLOWUP NOTE - [facility] Rustam Coppola MD [facility] [address] [place] [address] Dear Sudhakar: I saw Mary on December 23, 2006 in our [facility]. She is now a 11?? 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 She gradually improved over thefollowing year or two and has had normal ventricular function for a number of years. Since her lastvisit with us, she has had no new symptoms or problems. She denies chest pain, palpitations, dizziness, or fainting. She has had no chronic coughing, wheezing, or other respiratory difficulties. She is not involved in any athletic activity, but has no difficulty with routine play. Her mother has noconcerns about her health at this time. She says she enjoys school and is doing well. She came to today's visit with her mother. On physical examination today, her height was 145.9 cm, and her weight 46.1 kg, both around the 75th percentile. Her blood pressure was 115/65 in the right arm. Her resting pulse was 84 and her resting respiratory rate was 20. Her femoral pulses felt normal, and her liver was not enlarged. Her precordium was quiet. Her lungs were clear with symmetric aeration. Her neck veins were not distended. Her lips and nail beds were pink. She had no clubbing or peripheral edema. She had a normal first heart sound and a physiologically split second heart sound of normal intensity. She had a grade 1-2/6 rather soft, somewhat vibratory sounding ejection murmur at the left lower sternal border. I did not hear mitral regurgitation. She did not have a diastolic murmur. Her electrocardiogram was normal. She had normal voltages and normal repolarization. A 2-dimensional echo and Doppler study was performed. This demonstrated normal left ventricular size and systolic function. There was a trace of mitral regurgitation seen. In summary, Mary's electrocardiogram and echocardiogram are normal, and she is havingno symptoms. I think she can participate in sports if she is interested, although if she wants to continue in strenuous sports, I would have her come to [place] for treadmill stress tests when she is a littleolder. We should continue to monitor herannually for now, and I would want to know if she had any new symptoms, particularly any that could be suggestive of an arrhythmia. Based on new recommendations, she would not longer need SBE prophylaxis prior to dental procedures or other interventions that might result in bacteremia. Please give me a call if you have any questions about today's visit or our recommendations. Sincerely, Signed by Chad Middleton MD 12/27/2006 14:15 Chad Middleton MD - Chad Middleton MD P - LBR Job ID: [id number] Doc ID: [id number] cc: Rustam Coppola MD Doc ID: [id number] cc: Rustam Coppola MD documented in this encounter Plan of Treatment Not on file documented as of this encounter Visit Diagnoses Not on filedocumented in this encounter Care Teams Ndt Inspector Relationship Specialty Start Date End Date Rustam Coppola MD [address] [place] [address] PCP - General 12/19/08 06/03/17 documented as of this encounter
--- OUTSIDE RECORDS SUMMARY | 2024-01-03 13:10 | XMS_ITS | Encounter Summary ---
[place] [address] Care Team Providers Care Harness Puller Name Role Phone Pietro Son Primary Care Provider [phone] Encounter Details Date Type Department Care Team (Late st Contact Info) Description 10/14/2021 Telephone Cardiology at [address] [phone] Ariela Solo, RN Social History [...] Miscellaneous Notes * Telephone Encounter - Ariela Solo RN - 10/17/2021 4:34 PM EDT TC to Mrs Dixon regarding having her blood work done ordered by Dr Ugarte. Unable to leave as Mailbox is full. Called [facility] and no results. Ariela Solo (Jodie) RN, BSN [facility] * Telephone Encounter - Ariela Solo RN - 10/14/2021 4:57 PM EDT TC to Mary Porras, and unable to leave a VM as her mailbox is full. TC to [facility], and master motorcycle technician states the labs were received this morning, and have not beenscanned in, at this time. Ariela Solo RN (Jodie), BSN [facility] Amb[facility] * Telephone Encounter - Ariela Solo RN - 10/14/2021 9:21 AM EDT TC to Ms Porras, who states she started her Entresto on 09/30/2021. Labs for Dr Márquez faxed to [facility]. Mary Porras states she will have her blood work done later today. Areila Solo RN (Jodie), BSN [facility] documented in this encounter Plan of Treatment Upcoming Encounters Date Type Department Care Team (Late st Contact Info) Description 01/27/2024 1:00 PM EST Appointment Non-Invasive [place] [address] Anton Márquez MD [facility] [place] [address] 01/27/2024 3:00 PM EST Office Visit Cardiology at [address] [phone] Anton Márquez MD [facility] [place] [address] documented as of this encounter Visit Diagnoses Not on filedocumented in this encounter Care Teams Harness Puller Relationship Specialty Start Date End Date Pietro Son PA [address] [place] [address] PCP - General Internal Medicine 09/27/20 documented as of this encounter
--- OUTSIDE RECORDS SUMMARY | 2024-01-03 13:10 | XMS_ITS | Encounter Summary ---
[place] [address] Care Team Providers Care Soil Expert Name Role Phone Pietro Son Primary Care Provider [phone] Reason for Visit * Reason Comments Prior Authorization Entresto 24-26mg tab lets Encounter Details Date Type Department Care Team (Late st Contact Info) Description 09/26/2021 Specialty [place] [address] Mane Arauz, YULIET Social History Tobacco Use Types Packs/Day Years [...] as of this encounter Progress Notes * Mane Arauz CPHT - 09/26/2021 3:24 PM EDT [facility], Medication Prior Authorization Submission Patient: Mary Polo Chiquita Patient : 1995 Patient Address: [address] [place] [address] Phone: [phone] (home) Medication Name: ENTRESTO 24 MG-26 MG TABLET Medication ID: [id number] Subscriber Insurance: [place] Medicaid Subscriber Insurance Comment: Physician: SAPPHIRE MÁRQUEZ Physician Comment: Sent Via: Fax Gates: N/A Ref/Case/PA#: Unavailable Medication Strength Frequency Requested: Entresto 24-26mg tablets / One tablet twice daily Qty/Day Supply: New Start: New to Therapy Diagnosis & ICD-10 Code: Chronic systolic heart failure, I50.22 Patient Notified: No Submission Notes: Sent PA via fax, awaiting response from insurance. Attempted to call patient to notify her of the required PA process/timeline, but she didn't answer and the mail box was full, so I was unable to leave a voicemail. Mane Arauz 09/26/21 3:27 PM * Mane Arauz CPHT - 09/26/2021 3:24 PM EDT [facility], Prior Authorization Approval Medication Name: ENTRESTO 24 MG-26 MG TABLET Medication ID: [id number] Approval Dates: 09/26/2021 to 09/26/2022 Insurance requirements/notes: None Other Notes: None Case/Reference #: [id number] Approval notification Received via: Fax Copay: $3 Copay assistance: None Copay Notes: Insurance mandated Pharmacy: Unknown [facility] at [facility]: Yes Pharmacy staff will be reaching out to the patient to inform them of their medication's [facility]. If applicable, a pharmacist will speak with the patient to offer our specialty pharmacy services and to arrange delivery of their medication. Mane Arauz 09/29/21 9:30 AM documented in this encounter Plan of Treatment Upcoming Encounters Date Type Department Care Team (Late st Contact Info) Description 01/27/2024 1:00 PM EST Appointment Non-Invasive [place] [address] Sapphire Márquez MD [facility] [place] [address] 01/27/2024 3:00 PM EST Office Visit Cardiology at [address] [phone] Sapphire Márquez MD [facility] [place] [address] documented as of this encounter Visit Diagnoses Not on filedocumented in this encounter Care Teams Soil Expert Relationship Specialty Start Date End Date Pietro Son PA [address] [place] [address] PCP - General Internal Medicine 09/27/20 documented as of this encounter
--- OUTSIDE RECORDS SUMMARY | 2024-01-03 13:10 | XMS_ITS | Encounter Summary ---
Author Organization [facility] Address [address] [place] [address] Care Team Providers Care Laborer Wharf Name Role Phone Unavailable Primary Care Provider Unavailabl e Encounter Details Date Type Department Care Team (Latest Contact Info) Description 07/28/2001 7:12 EDT - 07/28/2001 11:59 EDT Hospital Encounter [address] [address] Teodoro Kay, DDS [address] [place] [address] Discharge Disposition: Auto Discharge Social History Tobacco [...]
--- OUTSIDE RECORDS SUMMARY | 2024-01-03 13:10 | XMS_ITS | Encounter Summary ---
Author Organization [facility] Address [address] [place] [address] Care Team Providers Care Director Instructional Material Name Role Phone Rustam Coppola MD Primary Care Provider [phone] Chela Crook NP Primary Care Provider [phone] Unknown, Provider Primary Care Provider [phone] Encounter Details Date Type Department Care Team (Late st Contact Info) Description 12/23/2006 Before PRISM Converted Visit (Maple) [facility] - Maple conversion [address] [place] [address] Teodoro Umanzor, DDS [address] [place] [address] Social History Tobacco Use Types Packs/Day Years Used Date Smoking Tobacco: Never Assessed Sex and Gender Information Value Date Recorded Sex Assigned at Not on file Gender Identity Not on file Sexual Orientation Not on file documented as of this encounter Plan of Treatment Not on file documented as of this encounter Procedures Procedure Name Priority Date/Time Associated Diagnosis Comments ECHOCARDIOGRAM 12/23/2006 18:20 EDT documented in this encounter Results * ECHOCARDIOGRAM (12/23/2006 18:20 EDT) Anatomical Region Laterality Modality Other 12/23/2006 18:2 0 EDT Narrative 09/03/2008 2:25 EDT color/pulse Doppler Site Location: Date of Appt: , December 23, 2006, 6:20 PM Pediatric Echocardiogram Report Demographics and Visit Data: : 1995. ??Age: 11y/5m/25d. ??BSA (m 2): 1.37. ??Height (cm): 145.9. Weight (kg): 46.1. ??BMI (kg/m 2): 21.66. ??Patient location: [facility]. Height Centile: 74.26. ??Weight Centile: 89.73. ??Person requesting test: TEODORO UMANZOR DDS Chicken Hatchery Helper: Cami Casas. ??Reason for test: color/pulse Doppler. Referral diagnosis: Dilated Cardiomyopath. ??Procedure Description: 2D ECHOCARDIOGRAM W/WO M-MODE. Summary: History of myocarditis with severe dysfunction. Normal left ventricular size, wall thickness and systolic function . Trivial mitral regurgitation. Small secundum atrial septal defect without significant right ventricular volume overload. Compared with last study, no significant change. Atrial Situs: Solitus Ventricular Situs: D - Looped Arterial Situs: Solitus Findings: Veins and Atria: >> Secundum atrial septal defect, small Small secundum atrial septal defect without significant right ventricular volume overload. A-V Canal: >> Mitral regurgitation, trivial Trace of mitral regurgitation from apical views only. Ventricles: >> Cardiomyopathy dilated History of severe myocarditis with subsequent recovery of function. >> Global left ventricular dysfunction, ruled out Normal left ventricular size, wall thickness and systolic function. >> Left ventricular dilation or enlargement, ruled out >> Right ventricular volume overload, ruled out Measures: Systemic Arterial Function: Name ? Value ?Units ?Z-Score ?Min ?Max Systolic BP ? 115 ?mmHg ? 1.09 ?84.87 ?? 123.65 Diastolic BP ? 65 ? mmHg ? 1.09 ?37.06 ?? 72.99 Pulse Pressure ? 50.00 ?mmHg Mean BP ? 81.7 ? mmHg ? 0.45 ?59.56 ?? 95.62 M-Mode: Name ? Value ?Units ?Z-Score ?Min ?Max LV Diastolic Septal Thickness ? 0.65 ? cm ? -1.6 ?0.61 ?1.16 LV Diastolic Dimension ? 4.85 ? cm ? 1.06 ?3.78 ?5.23 LV Diastolic Wall Thickness ? 0.65 ? cm ? -1.73 ? 0.63 ?1.05 LV Systolic Dimension ? 3.30 ? cm ? 1.13 ?2.39 ?3.6 LV Fractional Shortening ? 31.96 ?% ?-0.7 ?28.83 ?? 38.51 LV Systolic Function: Name ? Value ?Units ?Z-Score ?Min ?Max Endocardial FS ? 31.96 ?% ?-0.7 ?28.83 ?? 38.51 FS Vs Stress ? 31.96 ?% Cardiac Geometry: Name ? Value ?Units ?Z-Score ?Min ?Max M-Mode LV Mass ? 99.21 ?g ?-0.82 ? 78.79 ?? 173.49 M-Mode LV Mass Index ? 72.42 ?g/m 2 LV Midwall Diastolic Dimension ? 5.50 ? cm M-Mode LV Mass / Height ? 68 ? g/m M-Mode LV Mass / Height 2.7 ? 35.78 ?g/m ?19.4 ?38.6 Aorta: Name ? Value ?Units ?Z-Score ?Min ?Max Ao Annulus Diameter ? 1.85 ? cm ? 0.49 ?1.48 ?2.07 Ao Root Diameter ? 2.63 ? cm ? 1.28 ?1.87 ?2.79 AV Area (using Diameter) ? 2.69 ? cm 2 Sinotubular Junction Diameter ? 2.04 ? cm ? 0.32 ?1.6 ? 2.35 Ascending Ao Diameter ? 2.19 ? cm ? 0.82 ?1.64 ?2.42 Analysis Aortic Valve Doppler: Name ? Value ?Units AV Area (using Diameter) ? 2.69 ? cm 2 [place]'s Name: CHAD WALTER MD Date/time of reading: Dec 27 2006 - 8:54:00 AM Report created at 8:55:24 AM on Wednesday, December 27, 2006 Procedure Note Chad Walter MD - 09/03/2008 color/pulse Doppler Site Location: Date of Appt: December, 6:20 PM Pediatric Echocardiogram Report Demographics and Visit Data: : 1995. Age: 11y/5m/25d. BSA (m 2): 1.37. Height (cm): 145.9. Weight (kg): 46.1. BMI (kg/m 2): 21.66. Patient location: [facility]. Height Centile: 74.26. Weight Centile: 89.73. Person requesting test: TEODORO UMANZOR DDS Chicken Hatchery Helper: Cami Casas. Reason for test: color/pulse Doppler. Referral diagnosis: Dilated Cardiomyopath. Procedure Description: 2D ECHOCARDIOGRAM W/WO M-MODE. Summary: History of myocarditis with severe dysfunction. Normal left ventricular size, wall thickness and systolic function . Trivial mitral regurgitation. Small secundum atrial septal defect without significant rightventricular volume overload. Compared with last study, no significant change. Atrial Situs: Solitus Ventricular Situs: D - Looped Arterial Situs: Solitus Findings: Veins and Atria: >> Secundum atrial septal defect, small Small secundum atrial septal defect without significant rightventricular volume overload. A-V Canal: >> Mitral regurgitation, trivial Trace of mitral regurgitation from apical views only. Ventricles: >> Cardiomyopathy dilated History of severe myocarditis with subsequent recovery of function. >> Global left ventricular dysfunction, ruled out Normal left ventricular size, wall thickness and systolic function. >> Left ventricular dilation or enlargement, ruled out >> Right ventricular volume overload, ruled out Measures: Systemic Arterial Function: Name Value Units Z-Score Min Max Systolic BP 115 mmHg 1.09 84.87 123.65 Diastolic BP 65 mmHg 1.09 37.06 72.99 Pulse Pressure 50.00 mmHg Mean BP 81.7 mmHg 0.45 59.56 95.62 M-Mode: Name Value Units Z-Score Min Max LV Diastolic Septal Thickness 0.65 cm -1.6 0.61 1.16 LV Diastolic Dimension 4.85 cm 1.06 3.78 5.23 LV Diastolic Wall Thickness 0.65 cm -1.73 0.63 1.05 LV Systolic Dimension 3.30 cm 1.13 2.39 3.6 LV Fractional Shortening 31.96 % -0.7 28.83 38.51 LV Systolic Function: Name Value Units Z-Score Min Max Endocardial FS 31.96 % -0.7 28.83 38.51 FS Vs Stress 31.96 % Cardiac Geometry: Name Value Units Z-Score Min Max M-Mode LV Mass 99.21 g -0.82 78.79 173.49 M-Mode LV Mass Index 72.42 g/m 2 LV Midwall Diastolic Dimension 5.50 cm M-Mode LV Mass / Height 68 g/m M-Mode LV Mass / Height 2.7 35.78 g/m 19.4 38.6 Aorta: Name Value Units Z-Score Min Max Ao Annulus Diameter 1.85 cm 0.49 1.48 2.07 Ao Root Diameter 2.63 cm 1.28 1.87 2.79 AV Area (using Diameter) 2.69 cm 2 Sinotubular Junction Diameter 2.04 cm 0.32 1.6 2.35 Ascending Ao Diameter 2.19 cm 0.82 1.64 2.42 Analysis Aortic Valve Doppler: Name Value Units AV Area (using Diameter) 2.69 cm 2 [place]'s Name: SABA MEDINA,CHAD [place] Date/time of reading: Dec 27 2006 - 8:54:00 AM Report created at 8:55:24 AM on Wednesday, December 27, 2006 Teodoro Umanzor DDS CARDIAC ECHO ORDERAB LES documented in this encounter Visit Diagnoses Not on filedocumented in this encounter Care Teams Director Instructional Material Relationship Specialty Start Date End Date Rustam Coppola MD [address] [place] [address] PCP - General 12/19/08 06/03/17 Chela Crook NP [address] [place] [phone] PCP - General 06/04/17 12/30/18 Unknown, Provider, [address] [place] [phone] PCP - General 12/31/18 documented as of this encounter
--- OUTSIDE RECORDS SUMMARY | 2024-01-03 13:10 | XMS_ITS | Encounter Summary ---
[place] [address] Care Team Providers Care Director Communications Name Role Phone Pietro Son Primary Care Provider [phone] Reason for Visit * Diagnostic Test (Routine) - Closed Specialty Diagnoses / Procedures Referred By Marvin t Referred To Contact Cardiology Diagnoses Chronic systolic heart failure Palpitations Procedures Ziopatch 48 Hrs-15 Days Anton Márquez MD [facility] [place] [place] [address] [facility] [place] [address] Referral ID Status Reason Start Date Expiration Date V isits Requested Visits Authorized [id number] Closed Specialty Service Requested 09/25/2021 09/25/2022 1 1 Encounter Details Date Type Department Care Team (Late st Contact Info) Description 09/25/2021 11:00 AM EDT - 09/25/2021 11:59 PM EDT Hospital Encounter Non[place] [address] Anton Márquez MD [facility] [place] [address] Chronic systolic heart failure; Palpitations Discharge Disposition: Home Social History Tobacco Use [...] Sig Dispensed Refills Start Date End Date fish oil-omega-3 fatty acids 1,000 mg Capsule Take 2 g by mouth daily. polyethylene glycoL (Miralax) 17 gram/dose Powder Take 17 g by mouth daily. 255 g 3 01/25/2021 magnesium 250 mg Tablet Take by mouth. iron,carb/vit C/vit B12/folic (IRON 100 PLUS ORAL) Take by mouth. sacubitriL-valsartan (Entresto) 24-26 mg Tablet tablet Take 1 tablet by mouth 2 times daily. 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 90 tablet 5 09/25/2021 02/24/2022 ibuprofen (Advil) 600 mg Tablet Take 1 tablet by mouth every 6 hours as needed for Pain. 30 tablet 5 01/25/2021 02/24/2022 documented as of this encounter Plan of Treatment Upcoming Encounters Date Type Department Care Team (Late st Contact Info) Description 01/27/2024 1:00 PM EST Appointment Non-[place] [address] Anton Márquez MD [facility] [place] [address] 01/27/2024 3:00 PM EST Office Visit Cardiology at [address] [place] [address] Anton Márquez MD [facility] [place] [address] documented as of this encounter Procedures Procedure Name Priority Date/Time Associated Diagnosis Comments ZIOPATCH LOST Routine 09/25/2021 11:37 AM EDT Chronic systolic heart failure Palpitations documented in this encounter Results * Ziopatch Lost (09/25/2021 11:37 AM EDT) Narrative Dicom, Auditing User - 12/11/2021 9:44 AM EDT The ziopatch was lost. No data collected. Anton Márquez MD CARDIAC SERVICE S ORDERABLES documented in this encounter Visit Diagnoses Diagnosis Chronic systolic heart failure Palpitations documented in this encounter Care Teams Director Communications Relationship Specialty Start Date End Date Pietro Son PA [address] [place] [address] PCP - General Internal Medicine 09/27/20 documented as of this encounter
--- OUTSIDE RECORDS SUMMARY | 2024-01-03 13:10 | XMS_ITS | Encounter Summary ---
Author Organization [facility] Address [address] [place] [address] Care Team Providers Care Well Service Derrick Worker Name Role Phone Rustam Coppola MD Primary Care Provider [phone] Chela Crook NP Primary Care Provider [phone] Unknown, Provider Primary Care Provider [phone] Encounter Details Date Type Department Care Team (Late st Contact Info) Description 12/22/2007 Before PRISM Converted Visit (Maple) [facility] - Maple conversion [address] [place] [address] Ej Muñoz ARNP [address] [place] [address] Social History Tobacco Use Types Packs/Day Years Used Date Smoking Tobacco: Never Assessed Sex and Gender Information Value Date Recorded Sex Assigned at Not on file Gender Identity Not on file Sexual Orientation Not on file documented as of this encounter Plan of Treatment Not on file documented as of this encounter Procedures Procedure Name Priority Date/Time Associated Diagnosis Comments ECHOCARDIOGRAM 12/22/2007 13:20 EDT documented in this encounter Results * ECHOCARDIOGRAM (12/22/2007 13:20 EDT) Anatomical Region Laterality Modality Other 12/22/2007 13:2 0 EDT Narrative 07/30/2008 7:58 EDT color/pulse Doppler Site Location: Date of Appt: , December 22, 2007, 1:20 PM Pediatric Echocardiogram Report Demographics and Visit Data: : 1995. ??Age: 12y/5m/23d. ??BSA (m 2): 1.47. ??Height (cm): 154.5. Weight (kg): 50.5. ??BMI (kg/m 2): 21.16. ??Patient location: [facility]. Height Centile: 82.43. ??Weight Centile: 86.37. ??Person requesting test: EJ HERNANDEZ. Rotogravure Press Operator: CHAD WALTER MD ??Reason for test: color/pulse Doppler. Referral diagnosis: Dilated Cardiomyopath. ??Procedure Description: 2D ECHOCARDIOGRAM W/WO M-MODE. Summary: History of myocarditis with severe dysfunction. Normal left ventricular size and wall thickness with normal to mildly depressed systolic function . Trivial mitral regurgitation. Small secundum atrial septal defect without significant right ventricular volume overload. Compared with last study, probably no significant change. Atrial Situs: Solitus Ventricular Situs: D - Looped Arterial Situs: Solitus Findings: Veins and Atria: >> Secundum atrial septal defect, small Small secundum atrial septal defect without significant right ventricular volume overload. >> Normal Left Atrium >> Normal Right Atrium >> Normal Pulmonary venous connections >> Normal Systemic Veins A-V Canal: >> Mitral regurgitation, trivial Trace of mitral regurgitation from apical views only. 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 >> Global left ventricular dysfunction, mild Normal left ventricular size and wall thickness with normal to mildly depressed systolic function. >> Left ventricular dilation or enlargement, ruled out >> Right ventricular volume overload, ruled out >> Intact Ventricular Septum Conotruncus: >> Normal Aortic Valve >> Normal Pulmonary Valve Great Arteries: >> Normal Pulmonary Artery >> Normal Aorta Pericardium: (No abnormalities seen) Measures: Systemic Arterial Function: Name ? Value ?Units ?Z-Score ?Min ?Max Systolic BP ? 102 ?mmHg ? -0.38 ? 86.38 ?? 125.18 Diastolic BP ? 61 ? mmHg ? 0.57 ?37.8 ?73.74 Pulse Pressure ? 41.00 ?mmHg Mean BP ? 74.7 ? mmHg ? -0.41 ? 60.47 ?? 96.54 M-Mode: Name ? Value ?Units ?Z-Score ?Min ?Max LV Diastolic Septal Thickness ? 0.65 ? cm ? -1.82 ? 0.63 ?1.2 LV Diastolic Dimension ? 5.05 ? cm ? 1.16 ?3.91 ?5.4 LV Diastolic Wall Thickness ? 0.70 ? cm ? -1.43 ? 0.65 ?1.09 LV Systolic Dimension ? 3.70 ? cm ? 1.89 ?2.48 ?3.73 LV Fractional Shortening ? 26.73 ?% ?-2.74 ? 28.63 ?? 38.31 LV Systolic Function: Name ? Value ?Units ?Z-Score ?Min ?Max Endocardial FS ? 26.73 ?% ?-2.74 ? 28.63 ?? 38.31 FS Vs Stress ? 26.73 ?% Cardiac Geometry: Name ? Value ?Units ?Z-Score ?Min ?Max M-Mode LV Mass ? 111.55 ? g ?-0.71 ? 86.71 ?? 190.99 M-Mode LV Mass Index ? 75.89 ?g/m 2 LV Midwall Diastolic Dimension ? 5.75 ? cm M-Mode LV Mass / Height ? 72.2 ? g/m M-Mode LV Mass / Height 2.7 ? 34.46 ?g/m ?19.4 ?38.6 [place]'s Name: CHAD WALTER MD Date/time of reading: Jan 02 2008 - 6:42:17 PM Report created at 6:43:49 PM on Wednesday, January 02, 2008 Procedure Note Chad Walter MD - 07/30/2008 color/pulse Doppler Site Location: Date of Appt: December, 1:20 PM Pediatric Echocardiogram Report Demographics and Visit Data: : 1995. Age: 12y/5m/23d. BSA (m 2): 1.47. Height (cm): 154.5. Weight (kg): 50.5. BMI (kg/m 2): 21.16. Patient location: [facility]. Height Centile: 82.43. Weight Centile: 86.37. Person requesting test: EJ HERNANDEZ. Rotogravure Press Operator: CHAD WALTER MD Reason for test: color/pulse Doppler. Referral diagnosis: Dilated Cardiomyopath. Procedure Description: 2D ECHOCARDIOGRAM W/WO M-MODE. Summary: History of myocarditis with severe dysfunction. Normal left ventricular size and wall thickness with normal to mildly depressed systolic function . Trivial mitral regurgitation. Small secundum atrial septal defect without significant rightventricular volume overload. Compared with last study, probably no significant change. Atrial Situs: Solitus Ventricular Situs: D - Looped Arterial Situs: Solitus Findings: Veins and Atria: >> Secundum atrial septal defect, small Small secundum atrial septal defect without significant rightventricular volume overload. >> Normal Left Atrium >> Normal Right Atrium >> Normal Pulmonary venous connections >> Normal Systemic Veins A-V Canal: >> Mitral regurgitation, trivial Trace of mitral regurgitation from apical views only. 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 >> Global left ventricular dysfunction, mild Normal left ventricular size and wall thickness with normal to mildly depressed systolic function. >> Left ventricular dilation or enlargement, ruled out >> Right ventricular volume overload, ruled out >> Intact Ventricular Septum Conotruncus: >> Normal Aortic Valve >> Normal Pulmonary Valve Great Arteries: >> Normal Pulmonary Artery >> Normal Aorta Pericardium: (No abnormalities seen) Measures: Systemic Arterial Function: Name Value Units Z-Score Min Max Systolic BP 102 mmHg -0.38 86.38 125.18 Diastolic BP 61 mmHg 0.57 37.8 73.74 Pulse Pressure 41.00 mmHg Mean BP 74.7 mmHg -0.41 60.47 96.54 M-Mode: Name Value Units Z-Score Min Max LV Diastolic Septal Thickness 0.65 cm -1.82 0.63 1.2 LV Diastolic Dimension 5.05 cm 1.16 3.91 5.4 LV Diastolic Wall Thickness 0.70 cm -1.43 0.65 1.09 LV Systolic Dimension 3.70 cm 1.89 2.48 3.73 LV Fractional Shortening 26.73 % -2.74 28.63 38.31 LV Systolic Function: Name Value Units Z-Score Min Max Endocardial FS 26.73 % -2.74 28.63 38.31 FS Vs Stress 26.73 % Cardiac Geometry: Name Value Units Z-Score Min Max M-Mode LV Mass 111.55 g -0.71 86.71 190.99 M-Mode LV Mass Index 75.89 g/m 2 LV Midwall Diastolic Dimension 5.75 cm M-Mode LV Mass / Height 72.2 g/m M-Mode LV Mass / Height 2.7 34.46 g/m 19.4 38.6 [place]'s Name: SABA MEDINA,CHAD [place]land Date/time of reading: Jan 02 2008 - 6:42:17 PM Report created at 6:43:49 PM on Wednesday, January 02, 2008 Ej ROBERTSON CARDIAC ECHO ORDERA BLES documented in this encounter Visit Diagnoses Not on filedocumented in this encounter Care Teams Well Service Derrick Worker Relationship Specialty Start Date End Date Rustam Coppola MD [address] [place] [address] PCP - General 12/19/08 06/03/17 Chela Crook NP [address] [place] [phone] PCP - General 06/04/17 12/30/18 Unknown, Provider, [address] [place] [phone] PCP - General 12/31/18 documented as of this encounter
--- OUTSIDE RECORDS SUMMARY | 2024-01-03 13:10 | XMS_ITS | Encounter Summary ---
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 Social History Tobacco Use Types Packs/Day Years [...] 1:00 PM EST Appointment Non-[place] [address] Anton Márquez MD [facility] [place] [address] 01/27/2024 3:00 PM EST Office Visit Cardiology at [address] [phone] Anton Márquez MD [facility] [place] [address] documented as of this encounter Visit Diagnoses Diagnosis Chronic systolic heart failure 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
--- OUTSIDE RECORDS SUMMARY | 2024-01-03 13:10 | XMS_ITS | Encounter Summary ---
[place] [address] Care Team Providers Care Manager Of Product Name Role Phone Pietro Son Primary Care Provider [phone] Reason for Visit * Reason Onset Date Comments Medication Refill 09/30/2021 Entresto Encounter Details Date Type Department Care Team (Late st Contact Info) Description 09/30/2021 Refill Cardiology at [address] [phone] Anton Márquez MD [facility] [place] [address] Medication Refill (Entresto) Social History Tobacco Use Types Packs/Day Years [...] 1:00 PM EST Appointment Non-[place] [address] Anton Márquez MD [facility] [place] [address] 01/27/2024 3:00 PM EST Office Visit Cardiology at [address] [address] Anton Márquez MD [facility] [place] [address] documented as of this encounter Visit Diagnoses Diagnosis Chronic systolic heart failure documented in this encounter Care Teams Manager Of Product Relationship Specialty Start Date End Date Pietro Son PA [address] [place] [address] PCP - General Internal Medicine 09/27/20 documented as of this encounter
--- OUTSIDE RECORDS SUMMARY | 2024-01-03 13:10 | XMS_ITS | Encounter Summary ---
Author Organization [facility] [place] [address] Care Team Providers Care Ice Puller Name Role Phone Pietro Son Primary Care Provider [phone] Encounter Details Date Type Department Care Team (Latest Contact Info) Description 01/31/2021 Encounter Social History Tobacco Use Types Packs/Day Years [...] as of this encounter Miscellaneous Notes * Note - Susannah Malik RN - 01/31/2021 3:32 PM EST This note was copied from a baby's chart. I touched base with this mother today. Per mom she continues to pump about 5 times a day. She obtains about 40 cc's from the left and only about 5 cc's from the right. She states this has always beenthe case that there is always less on the right. She denies block ducts and states the white membrane of the pump is intact and the pump appears to be working well. Mom feel she is eating enough calories and hydrating well. Mom will try to increase her pumping sessions to 8-12 times in a 24 hour day. I explained to mom itmay appears that she pumps less milk as she increases her frequency, but in the end it will increase her volumes. is available to support as needed. documented in this encounter Plan of Treatment Upcoming Encounters Date Type Department Care Team (Late st Contact Info) Description 01/27/2024 1:00 PM EST Appointment Non[place] [phone] Anton Márquez MD [facility] [place] [address] 01/27/2024 3:00 PM EST Office Visit Cardiology at [address] [address] Anton Márquez MD [facility] [place] [address] documented as of this encounter Visit Diagnoses Not on filedocumented in this encounter Care Teams Ice Puller Relationship Specialty Start Date End Date Pietro Son PA [address] [place] [address] PCP - General Internal Medicine 09/27/20 documented as of this encounter
--- OUTSIDE RECORDS SUMMARY | 2024-01-03 13:10 | XMS_ITS | Encounter Summary ---
[facility] Organization [facility] [place] [address] Care Team Providers Care Bi Consultant Name Role Phone Pietro Son Primary Care Provider [phone] Encounter Details Date Type Department Care Team (Late st Contact Info) Description 09/24/2021 Orders Only Cardiology at [address] [phone] Anton Márquez MD [facility] [place] [address] Chronic systolic heart failure Social History Tobacco [...] 1:00 PM EST Appointment [place] [address] Anton Márquez MD [facility] [place] [address] 01/27/2024 3:00 PM EST Office Visit Cardiology at [address] [place] [address] Anton Márquez MD [facility] [place] [address] documented as of this encounter Visit Diagnoses Diagnosis Chronic systolic heart failure documented in this encounter Care Teams Bi Consultant Relationship Specialty Start Date End Date Pietro Son PA [address] [place] [address] PCP - General Internal Medicine 09/27/20 documented as of this encounter
--- OUTSIDE RECORDS SUMMARY | 2024-01-03 13:10 | XMS_ITS | Encounter Summary ---
Author Organization [facility] [place] [address] Care Team Providers Care Agriculture Consultant Name Role Phone Pietro Son Primary Care Provider [phone] Encounter Details Date Type Department Care Team (Latest Contact Info) Description 02/24/2023 Travel Social History Tobacco Use Types Packs/Day [...] 1:00 PM EST Appointment Non-[place] [phone] Anton Márquez MD [facility] [place] [address] 01/27/2024 3:00 PM EST Office Visit Cardiology at [address] [phone] Anton Márquez MD [facility] [place] [address] documented as of this encounter Visit Diagnoses Not on filedocumented in this encounter Care Teams Agriculture Consultant Relationship Specialty Start Date End Date Pietro Son PA [address] [address] PCP - General Internal Medicine 09/27/20 documented as of this encounter
--- OUTSIDE RECORDS SUMMARY | 2024-01-03 13:10 | XMS_ITS | Encounter Summary ---
[place] [address] Care Team Providers Care Sql Analyst Name Role Phone Pietro Son Primary Care Provider [phone] Reason for Visit * Reason Comments Medication Management Encounter Details Date Type Department Care Team (Late st Contact Info) Description 10/06/2021 Specialty [place] [phone] Sangeeta Higginbotham RPH Social History Tobacco Use Types Packs/Day Years [...] as of this encounter Progress Notes * Sangeeta Higginbotham RPH - 10/06/2021 12:41 PM EDT Specialty Pharmacy Referral; Sangeeta Higginbotham RPH Transfer of Services Mary Porras [address] [facility] [address] Telephone Information: Home Phone [phone] Work Phone Not on file. The [facility] has received a prescription for Entresto for patient Ms. Mary Porras 26 y.o. (1995). Patient requested to have this sent to her local [facility]. Patient requested directly from provider and does not need to be notified of this change. A copy of patient's medication profile was offered to the accepting pharmacy. Additional instructions provided to patient about transfer: no The patient has been advised to call the [facility] at [phone] with any questions or concerns on this referral. Thank you, Sangeeta Higginbotham RPH 10/06/21 12:41 PM Patient understands no changes to current drug regimen were made at this time. documented in this encounter Plan of Treatment Upcoming Encounters Date Type Department Care Team (Late st Contact Info) Description 01/27/2024 1:00 PM EST Appointment Non-[place] [phone] Anton Márquez MD [facility] [place] [address] 01/27/2024 3:00 PM EST Office Visit Cardiology at [address] [phone] Anton Márquez MD [facility] [place] [address] documented as of this encounter Visit Diagnoses Not on filedocumented in this encounter Care Teams Sql Analyst Relationship Specialty Start Date End Date Pietro Son PA [address] [place] [address] PCP - General Internal Medicine 09/27/20 documented as of this encounter
--- OUTSIDE RECORDS SUMMARY | 2024-01-03 13:10 | XMS_ITS | Encounter Summary ---
[place] [address] Care Team Providers Care Senior Construction Manager Name Role Phone Pietro Son Primary Care Provider [phone] Encounter Details Date Type Department Care Team (Late st Contact Info) Description 09/26/2021 Telephone Cardiology at [address] [phone] Ariela Solo, RN Social History [...] Telephone Encounter - Ariela Solo, RN - 09/26/2021 2:44 PM EDT TC to Mrs Porras to convey message and recommendations from Dr Márquez: Can you call this patient to remind her to get labs 2 weeks from now? Ask her how her breathing is. If she is taking spironolactone/metop as instructed and if she got her entresto. If she can't afford entresto I will go back to losartan. Thanks! Left VM message stating above message, and left Telephone call back for support teacher. Ariela Solo (Jodie), RN, BSN [facility] documented in this encounter Plan of Treatment Upcoming Encounters Date Type Department Care Team (Late st Contact Info) Description 01/27/2024 1:00 PM EST Appointment Non-[place]vasive [place] [address] Anton Márquez MD [facility] [place] [address] 01/27/2024 3:00 PM EST Office Visit Cardiology at [address] [phone] Anton Márquez MD [facility] [place] [address] documented as of this encounter Visit Diagnoses Not on filedocumented in this encounter Care Teams Senior Construction Manager Relationship Specialty Start Date End Date Pietro Son PA [address] [place] [address] PCP - General Internal Medicine 09/27/20 documented as of this encounter
--- OUTSIDE RECORDS SUMMARY | 2024-01-03 13:10 | XMS_ITS | Encounter Summary ---
[place] [address] Care Team Providers Care Patient Portal Representative Name Role Phone Pietro Son Primary Care Provider [phone] Encounter Details Date Type Department Care Team (Late st Contact Info) Description 09/29/2021 Telephone Cardiology at [address] [phone] Ariela Solo, RN Social History [...] Telephone Encounter - Ariela Solo, RN - 09/29/2021 11:48 AM EDT TC to Ms Porras to let her know her medication Entresto, has been approved by Prior Authorization with her insurance company, and her co pay is 3.00 dollars. Left VM message with call back for social welfare research worker. Ariela Solo (Jodie), RN, BSN Cardiology Ambulatory [facility] documented in this encounter Plan of Treatment Upcoming Encounters Date Type Department Care Team (Late st Contact Info) Description 01/27/2024 1:00 PM EST Appointment Non-Invasive [place] [address] Anton Márquez MD [facility] [place] [address] 01/27/2024 3:00 PM EST Office Visit Cardiology at [address] [phone] Anton Márquez MD [facility] [place] [address] documented as of this encounter Visit Diagnoses Not on filedocumented in this encounter Care Teams Patient Portal Representative Relationship Specialty Start Date End Date Pietro Son PA [address] [place] [address] PCP - General Internal Medicine 09/27/20 documented as of this encounter
--- OUTSIDE RECORDS SUMMARY | 2024-01-03 13:10 | XMS_ITS | Encounter Summary ---
Author Organization [facility] Address [place] [id number] Care Team Providers Care Ward Aide Name Role Phone Pietro Son Primary Care Provider [phone] Reason for Referral * Diagnostic Test (Routine) - Closed Specialty Diagnoses / Procedures Referred By Contac t Referred To Contact Cardiology Diagnoses Chronic systolic heart failure Procedures Echocardiogram Transthoracic([facility] or [facility]) Sapphire Márquez MD [facility] [address] [facility] [place] [address] Referral ID Status Reason Start Date Expiration Date V isits Requested Visits Authorized [id number] Closed Specialty Service Requested 03/10/2021 03/10/2022 1 1 Reason for Visit * Diagnostic Test (Routine) - Closed Specialty Diagnoses / Procedures Referred By Contac t Referred To Contact Cardiology Diagnoses Chronic systolic heart failure Procedures Echocardiogram Transthoracic([facility] or [facility]) Sapphire Márquez MD [facility] [place] [address] [facility] [place] [address] Referral ID Status Reason Start Date Expiration Date V isits Requested Visits Authorized [id number] Closed Specialty Service Requested 03/10/2021 03/10/2022 1 1 Encounter Details Date Type Department Care Team (Late st Contact Info) Description 09/25/2021 8:22 AM EDT - 09/25/2021 10:59 AM EDT Hospital Encounter Non[place] [phone] Sapphire Márquez MD [facility] [place] [address] Chronic systolic heart failure Discharge Disposition: Home [...] mouth daily. 90 tablet 3 09/25/2021 02/24/2022 ibuprofen (Advil) 600 mg Tablet Take 1 tablet by mouth every 6 hours as needed for Pain. 30 tablet 5 01/25/2021 02/24/2022 documented as of this encounter Plan of Treatment Upcoming Encounters Date Type Department Care Team (Late st Contact Info) Description 01/27/2024 1:00 PM EST Appointment Non-[place] [phone] Sapphire Márquez MD [facility] [place] [address] 01/27/2024 3:00 PM EST Office Visit Cardiology at [address] [phone] Sapphire Márquez MD [facility] [place] [address] documented as of this encounter Procedures Procedure Name Priority Date/Time Associated Diagnosis Comments ECHO COMPLETE Routine 09/25/2021 9:20 AM EDT Chronic systolic heart failure documented in this encounter Results * ECHO COMPLETE (09/25/2021 9:20 AM EDT) EF 38 HEARTLAB SYSTEM Anatomical Region Laterality Modality Cardiac Other 09/25/2021 8:42 AM EDT Narrative 09/25/2021 9:44 AM EDT ? Echocardiogram Report Name: LAYO PORRAS ?Study Date: 09/25/2021 08:42 AMBP: 91/53 mmHg ? Patient Location: [address] [place] [address] ? HR: 79 : 1995 ? Height: 178 cm ? Account: [id number] Age: 26 yrs ? Weight: 92 kg Gender: Female ?BSA: 2.1 m2 Ordering Physician: SAPPHIRE MÁRQUEZ Referring Physician: SAPPHIRE MÁRQUEZ Performed By: Bushra Tompkins RDCS Reason For Study: CHF Exam Location: [facility]. Interpretation Summary Left ventricle is normal in size (LVEDV 52 cc/m2), though remains with increased sphericity index. There is moderately reduced systolic function, with an EF by visual estimate of 35-40% and diffuse hypokinesis. Diastology would indicate normal LA pressure. Right ventricle is normal in size and function. No hemodynamically significant valve disease. Compared to prior study dated 02/2021, the endocardium is not as well visualized; however, systolic function remains moderately reduced. There has likely been benefical remodeling in the interim, as evidenced by decreased EDV and less spheroid appearance. Procedure Complete-[id number]. Satisfactory quality. There is normal sinus rhythm. Left Ventricle Left ventricle is of normal size. There is no ventricular septal defect. Wall thickness is normal. Left ventricular systolic function is moderately reduced. The left ventricular ejection fraction is 35-40% by Higginbotham's biplane. Global longitudinal strain is measured at -13.6 %. There is global hypokinesis with regional variation. Right Ventricle The right ventricle is of normal size. Right ventricular systolic function is normal. Left Atrium The left atrium is normal. There is no evidence for a patent foramen ovale. Right Atrium The right atrium is normal. Aortic Valve The aortic valve is structurally normal. There is no aortic stenosis. There is no aortic regurgitation. Mitral Valve The mitral valve is structurally and functionally normal. There is trace mitral regurgitation. Tricuspid Valve The tricuspid valve is structurally normal. There is trace tricuspid regurgitation. Pulmonic Valve The pulmonic valve appears to be structurally and functionally normal. Great Arteries The aortic root is of normal size. No abnormalities are identified. Venous Inferior vena cava is normal in size. Inferior vena cava collapse greater than 50% with respiration. Pericardium/Pleural The pericardium appears normal. Hemodynamics The peak right ventricular systolic pressure is 28 mmHg. The estimated right atrial pressure is 3mmHg. Left ventricular filling pressure is normal. Ejection Fraction ?2D Measurements ? Volumes LV Biplane EF: 39.8 % ? IVSd: 0.85 cm ?LA Volume Index: ?LVIDd: 5.2 cm ?LVIDs: 3.8 cm ?21.1 ml/m2 ?LVPWd: 0.83 cm ? EDV Biplane: 110.3 ml ? EDV Biplane Index: 52.5 ?LV mass(C)d: 156.8 grams ? ESV Biplane: 66.4 ml ?LV mass(C)dI: 74.6 grams/m2 ?ESV Biplane Index: 31.6 ?Ao root diam: 3.0 cm ? SV(LVOT): 50.9 ml ?Ao root diam index: 1.4 ?LV Stroke Volume: 50.8 ml ?asc Aorta Diam: 2.9 cm ?LVOT diam: 2.2 cm ?SI(LVOT): 24.2 ml/m2 Doppler TR max jourdan: 250.6 cm/sec Ao valve max: 3.3 mmHg MV E max jourdan: 61.9 cm/sec MV A max jourdan: 65.5 cm/sec MV E/A: 0.95 MV dec time: 0.12 sec Lat Peak E' Jourdan: 11.6 cm/sec E/ e' (lat): 5.3 Med Peak E' Jourdan: 9.9 cm/sec E/e' (med): 6.3 E/e' Average: 5.8 I ?WMSI = 2.00 ? % Normal = 0 ?Segments ??Size X - Cannot ?2 - ?4 - ?1-2 ? small Interpret ?1 - Normal ?? Hypokinetic 3 - Akinetic Dyskinetic ?? 3-5 ? moderate 5 - ? 6-14 ?large Aneurysmal ?15-16 ?? diffuse Procedure Note Dhruv Greene MD - 09/25/2021 Echocardiogram Report Name: JORDONSHARMILA QUIGLEYNOLVIA Polo Study Date: 208:42 AMBP: 91/53 mmHg Patient Location: [id number] HR: 79 : 1995 Height: 178 cm Account: [id number] Age: 26 yrs Weight: 92 kg Gender: Female BSA: 2.1 m2 Ordering Physician: SAPPHIRE MÁRQUEZ Referring Physician: SAPPHIRE MÁRQUEZ Performed By: Bushra Tompkins RDCS Reason For Study: CHF Exam Location: [facility]. Interpretation Summary Left ventricle is normal in size (LVEDV 52 cc/m2), though remains withincreased sphericity index. There is moderately reduced systolic function, with anEF by visual estimate of 35-40% and diffuse hypokinesis. Diastology wouldindicate normal LA pressure. Right ventricle is normal in size and function. No hemodynamically significant valve disease. Compared to prior study dated 02/2021, the endocardium is not as wellvisualized; however, systolic function remains moderately reduced. There has likelybeen benefical remodeling in the interim, as evidenced by decreased EDV andless spheroid appearance. Procedure Complete-[id number]. Satisfactory quality. There is normal sinus rhythm. Left Ventricle Left ventricle is of normal size. There is no ventricular septal defect.Wall thickness is normal. Left ventricular systolic function is moderatelyreduced. The left ventricular ejection fraction is 35-40% by Higginbotham's biplane.Global longitudinal strain is measured at -13.6 %. There is global hypokinesiswith regional variation. Right Ventricle The right ventricle is of normal size. Right ventricular systolic functionis normal. Left Atrium The left atrium is normal. There is no evidence for a patent foramenovale. Right Atrium The right atrium is normal. Aortic Valve The aortic valve is structurally normal. There is no aortic stenosis.There is no aortic regurgitation. Mitral Valve The mitral valve is structurally and functionally normal. There is tracemitral regurgitation. Tricuspid Valve The tricuspid valve is structurally normal. There is trace tricuspid regurgitation. Pulmonic Valve The pulmonic valve appears to be structurally and functionally normal. Great Arteries The aortic root is of normal size. No abnormalities are identified. Venous Inferior vena cava is normal in size. Inferior vena cava collapse greaterthan 50% with respiration. Pericardium/Pleural The pericardium appears normal. Hemodynamics The peak right ventricular systolic pressure is 28 mmHg. The estimatedright atrial pressure is 3mmHg. Left ventricular filling pressure is normal. Ejection Fraction 2D Measurements Volumes LV Biplane EF: 39.8 % IVSd: 0.85 cm LA VolumeIndex: LVIDd: 5.2 cm LVIDs: 3.8 cm 21.1 ml/m2 LVPWd: 0.83 cm EDV Biplane:110.3 ml EDV BiplaneIndex: 52.5 LV mass(C)d: 156.8 grams ESV Biplane: 66.4ml LV mass(C)dI: 74.6 grams/m2 ESV BiplaneIndex: 31.6 Ao root diam: 3.0 cm SV(LVOT): 50.9ml Ao root diam index: 1.4 LV Stroke Volume:50.8 ml asc Aorta Diam: 2.9 cm LVOT diam: 2.2 cm SI(LVOT): 24.2ml/m2 Doppler TR max jourdan: 250.6 cm/sec Ao valve max: 3.3 mmHg MV E max jourdan: 61.9 cm/sec MV A max jourdan: 65.5 cm/sec MV E/A: 0.95 MV dec time: 0.12 sec Lat Peak E' Jourdan: 11.6 cm/sec E/ e' (lat): 5.3 Med Peak E' Jourdan: 9.9 cm/sec E/e' (med): 6.3 E/e' Average: 5.8 I WMSI = 2.00 % Normal = 0 SegmentsSize X - Cannot 2 - 4 - 1-2small Interpret 1 - Normal Hypokinetic 3 - Akinetic Dyskinetic 3-5moderate 5 - 6-14large Aneurysmal 15-16diffuse Sapphire Márquez MD ECHO ORDERABLES documented in this encounter Visit Diagnoses Diagnosis Chronic systolic heart failure documented in this encounter Care Teams Ward Aide Relationship Specialty Start Date End Date Pietro Son PA [address] [place] [address] PCP - General Internal Medicine 09/27/20 documented as of this encounter
--- OUTSIDE RECORDS SUMMARY | 2024-01-03 13:10 | XMS_ITS | Encounter Summary ---
Author Organization [facility] Address [place] [id number] Care Team Providers Care Fare Enforcement Officer Name Role Phone Pietro Son Primary Care Provider [phone] Reason for Referral * Diagnostic Test (Routine) - Closed Specialty Diagnoses / Procedures Referred By Contac t Referred To Contact Cardiology Diagnoses Peripartum cardiomyopathy Procedures Echocardiogram Transthoracic([facility]) Anton Márquez MD [facility] [place] [address] [facility] [place] [address] Referral ID Status Reason Start Date Expiration Date V isits Requested Visits Authorized [id number] Closed Specialty Service Requested 01/28/2021 01/28/2022 1 1 Reason for Visit * Diagnostic Test (Routine) - Closed Specialty Diagnoses / Procedures Referred By Contac t Referred To Contact Cardiology Diagnoses Peripartum cardiomyopathy Procedures Echocardiogram Transthoracic([facility]) Anton Márquez MD [facility] [place] [address] [facility] [place] [address] Referral ID Status Reason Start Date Expiration Date V isits Requested Visits Authorized [id number] Closed Specialty Service Requested 01/28/2021 01/28/2022 1 1 Encounter Details Date Type Department Care Team (Late st Contact Info) Description 03/10/2021 8:51 AM EST - 03/10/2021 11:59 PM EST Hospital Encounter Non-[place] [phone] Anton Márquez MD [facility] [place] [address] Peripartum cardiomyopathy Discharge Disposition: Home Social History Tobacco Use [...] Sig Dispensed Refills Start Date End Date polyethylene glycoL (Miralax) 17 gram/dose Powder Take 17 g by mouth daily. 255 g 3 01/25/2021 magnesium 250 mg Tablet Take by mouth. iron,carb/vit C/vit B12/folic (IRON 100 PLUS ORAL) Take by mouth. spironolactone (Aldactone) 25 mg Tablet Take 1 tablet by mouth daily. 90 tablet 3 03/10/2021 04/17/2021 losartan (Cozaar) 25 mg TabletIndications:Chronic systolic heart failure Take 1 tablet by mouth daily. 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 90 tablet 5 01/25/2021 04/17/2021 ibuprofen (Advil) 600 mg Tablet Take 1 tablet by mouth every 6 hours as needed for Pain. 30 tablet 5 01/25/2021 02/24/2022 sertraline (Zoloft) 50 mg Tablet Take 0.5 tablets by mouth daily. 90 tablet 3 01/25/2021 09/25/2021 vit 75/iron/folic/om3 ([id number] FUM-FOLIC AC-OM3 ORAL) Take by mouth. 08/16/2020 09/25/2021 documented as of this encounter Plan of Treatment Upcoming Encounters Date Type Department Care Team (Late st Contact Info) Description 01/27/2024 1:00 PM EST Appointment Non-[place] [phone] Anton Márquez MD [facility] [place] [address] 01/27/2024 3:00 PM EST Office Visit Cardiology at [address] [phone] Anton Márquez MD [facility] [place] [address] documented as of this encounter Procedures Procedure Name Priority Date/Time Associated Diagnosis Comments ECHO LMTD W CONTRAST W LMTD SPEC DOPP COLOR DOPP Routine 03/10/2021 9:56 AM EST Peripartum cardiomyopathy documented in this encounter Results * ECHO LMTD W CONTRAST W LMTD SPEC DOPP COLOR DOPP (03/10/2021 9:56 AM EST) EF 36 HEARTLAB SYSTEM Anatomical Region Laterality Modality Other 03/10/2021 Narrative 03/10/2021 10:52 AM EST Procedure: ?Transthoracic Echocardiogram Patient: ?JORDON LAYO C ? (Age): 1995(25y) Med Rec#: ? [id number] ?Sex: ?F ? Site Loc: ? [facility] ?Ht / Wt: ??177(cm)/91(kg) Pt. Loc: ?Echo Lab ?BSA: ?2.08 Study Date: ?? 03/10/2021 ?Pt. Type: Outpatient Tape: ? 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 112/64 SUMMARY: 1. The left ventricle is moderately dilated (LVEDV index 75 mL/m2). Global left ventricular systolic function is moderately reduced. The quantitative left ventricular ejection fraction by biplane Higginbotham's method is 36%. There is diffuse hypokinesis present, except for the basal anterolateral and inferolateral segments which are normal. 2. The right ventricle is mildly dilated. Right ventricular global systolic function is mildly reduced. Pulmonary artery hypertension could not be assessed due to inadequate tricuspid regurgitation jet. 3. There is mild (1+/4+) mitral regurgitation present. 4. Compared to the prior echocardiogram from 01/14/21, there is no significant change. Findings ? : Left Ventricle: ? The left ventricle is moderately dilated. by LVEDV index- 75mL/m2 ?Left ventricular wall thickness is normal. ?Global left ventricular systolic function is moderately reduced. ?The quantitative left ventricular ejection fraction by biplane Higginbotham's method is 36%. ?There is diffuse hypokinesis present. Except for the basal anterolateral and inferolateral segments which are normal. ?Left ventricular diastolic function is probably normal. ?Doppler assessment is consistent with normal left sided filling pressure. Right Ventricle: ? The right ventricle is mildly dilated. ?Right ventricular global systolic function is mildly reduced. ?Pulmonary artery hypertension could not be assessed due to inadequate tricuspid regurgitation jet. Aortic Valve: ? The aortic valve is tricuspid. ?Systolic excursion of the aortic valve is normal. ?There is no evidence of aortic valve stenosis. ?There is no evidence of aortic regurgitation. Mitral Valve: ? The mitral valve leaflets appear normal. ?There is mild (1+/4+) mitral regurgitation present. Tricuspid Valve: ? The tricuspid valve leaflets are morphologically normal. ?There is trace tricuspid regurgitation present. Pericardium: ? The pericardium appears normal and there is no evidence of a pericardial effusion. Misc: ? Two-dimensional echo, limited spectral Doppler and color Doppler performed. ?Definity contrast (one 1.5 ml vial)was used to enhance endocardial definition. Excess contrast was discarded. Chambers 2D ?Value ?Units (Range) ? IVSd (2D) ? 0.57 ? cm ? LVPWd (2D) ?0.66 ? cm ? IVS:LVPW ratio (2D) 0.87 ? ratio ? RWT (2D) ?0.2 ?ratio ? RWT PW (2D) ? 0.21 ? ratio ? LVIDd (2D) ?6.13 ? cm ? LVIDs (2D) ?5.08 ? cm ? LVIDd (2D) index ?2.94 ? cm/m2 ? LVIDs (2D) index ?2.44 ? cm/m2 ? LV FS (2D) ?17.08 ?% ? EF Teichholz (2D) ?? 35.02 ?% ? Volumes/Mass ?Value ?Units (Range) ? LV ESV SP 4CH (MOD) 106.51 ? ml ? LV ESV SP 2CH (MOD) 92.65 ?ml ? LV EDV BP ? 157.12 ? ml ? LV ESV BP ? 101.24 ? ml ? LV EDV BP index ? 75.42 ?ml/m2 ? LV ESV BP index ? 48.6 ? ml/m2 ? BP EF (MOD) ? 35.57 ?% ? LV mass (2D) ?140.4 ?g ? LV mass (2D) index ??67.39 ?g/m2 ? Diastolic/Systolic Function ?Value ?Units (Range) ? MV E-wave Vmax ?0.75 ? m/sec ? MV deceleration mdlc090.21 ? msec ? MV A-wave Vmax ?0.4 ?m/sec ? MV E:A ratio ?1.86 ? ratio ? LV septal e' Vmax ?? 0.09 ? m/sec ? LV lateral e' Vmax ??0.15 ? m/sec ? LV average e' Vmax ??0.12 ? m/sec ? LV E:e' septal ratio8.3 ?ratio ? LV E:e' lateral rati4.98 ? ratio ? LV average E:e' rati6.23 ? ratio ? Aortic Valve ?Value ?Units (Range) ? LVOT Vmax ? 0.6 ?m/sec ? LVOT VTI ?11.95 ?cm ? LVOT peak gradient ??1.46 ? mmHg ? LVOT mean gradient ??0.79 ? mmHg ? This report has been electronically signed by: Adán Beebe MD ? 03/10/2021 10:52:11 Images reviewed and interpretation verified [facility] Cardiac Ultrasound [facility] Procedure Note Adán Beebe MD - 03/10/2021 Procedure: Transthoracic Echocardiogram Patient: JORDON DE LUNA(Age): 1995(25y) Med Rec#: [id number] Sex: F Site Loc: [facility] Ht / Wt: 177(cm)/91(kg) Pt. Loc: Echo Lab BSA: 2.08 Study Date: 03/10/2021 Pt. 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 The left ventricle is moderately dilated (LVEDV index 75 mL/m2). Global left ventricular systolic function is moderately reduced. The quantitative left ventricular ejection fraction by biplane Higginbotham's method is 36%. There is diffuse hypokinesis present, except for the basal anterolateral and inferolateral segments which are normal. 2. The right ventricle is mildly dilated. Right ventricular global systolic function is mildly reduced. Pulmonary artery hypertension could not be assessed due to inadequate tricuspid regurgitation jet. 3. There is mild (1+/4+) mitral regurgitation present. 4. Compared to the prior echocardiogram from 01/14/21, there is no significant change. Findings : Left Ventricle: The left ventricle is moderately dilated. by LVEDV index- 75mL/m2 Left ventricular wall thickness is normal. Global left ventricular systolic function is moderately reduced. The quantitative left ventricular ejection fraction by biplane Higginbotham's method is 36%. There is diffuse hypokinesis present. Except for the basal anterolateral and inferolateral segments which are normal. Left ventricular diastolic function is probably normal. Doppler assessment is consistent with normal left sided filling pressure. Right Ventricle: The right ventricle is mildly dilated. Right ventricular global systolic function is mildly reduced. Pulmonary artery hypertension could not be assessed due to inadequate tricuspid regurgitation jet. Aortic Valve: The aortic valve is tricuspid. Systolic excursion of the aortic valve is normal. There is no evidence of aortic valve stenosis. There is no evidence of aortic regurgitation. Mitral Valve: The mitral valve leaflets appear normal. There is mild (1+/4+) mitral regurgitation present. Tricuspid Valve: The tricuspid valve leaflets are morphologically normal. There is trace tricuspid regurgitation present. Pericardium: The pericardium appears normal and there is no evidence of a pericardial effusion. Misc: Two-dimensional echo, limited spectral Doppler and color Doppler performed. Definity contrast (one 1.5 ml vial)was used to enhance endocardial definition. Excess contrast was discarded. Chambers 2D Value Units (Range) IVSd (2D) 0.57 cm LVPWd (2D) 0.66 cm IVS:LVPW ratio (2D) 0.87 ratio RWT (2D) 0.2 ratio RWT PW (2D) 0.21 ratio LVIDd (2D) 6.13 cm LVIDs (2D) 5.08 cm LVIDd (2D) index 2.94 cm/m2 LVIDs (2D) index 2.44 cm/m2 LV FS (2D) 17.08 % EF Teichholz (2D) 35.02 % Volumes/Mass Value Units (Range) LV ESV SP 4CH (MOD) 106.51 ml LV ESV SP 2CH (MOD) 92.65 ml LV EDV BP 157.12 ml LV ESV BP 101.24 ml LV EDV BP index 75.42 ml/m2 LV ESV BP index 48.6 ml/m2 BP EF (MOD) 35.57 % LV mass (2D) 140.4 g LV mass (2D) index 67.39 g/m2 Diastolic/Systolic Function Value Units (Range) MV E-wave Vmax 0.75 m/sec MV deceleration cdot610.21 msec MV A-wave Vmax 0.4 m/sec MV E:A ratio 1.86 ratio LV septal e' Vmax 0.09 m/sec LV lateral e' Vmax 0.15 m/sec LV average e' Vmax 0.12 m/sec LV E:e' septal ratio8.3 ratio LV E:e' lateral rati4.98 ratio LV average E:e' rati6.23 ratio Aortic Valve Value Units (Range) LVOT Vmax 0.6 m/sec LVOT VTI 11.95 cm LVOT peak gradient 1.46 mmHg LVOT mean gradient 0.79 mmHg This report has been electronically signed by: Adán Beebe MD 03/10/2021 10:52:11 Images reviewed and interpretation verified [facility] Cardiac Ultrasound [facility] Anton Márquez MD ECHO ORDERABLES documented in this encounter Visit Diagnoses Diagnosis Peripartum cardiomyopathy Peripartum cardiomyopathy, unspecified as to episode of care documented in this encounter Administered Medications Inactive Administered Medications - up to 3 most recent administrations Medication Order MAR Action Action Date Dose Rate Site perflutren lipid microspheres (Definity) injection 1.5 mL 1.5 mL, Intravenous, ONCE PRN, 1 dose, Starting on Wed03/10/21 at 0956, Until Wed03/10/21 at 0935, to enhance echo images, Routine Given 03/10/2021 9:35 AM EST 1.5 mLs documented in this encounter Care Teams Fare Enforcement Officer Relationship Specialty Start Date End Date Pietro Son PA [address] [place] [address] PCP - General Internal Medicine 09/27/20 documented as of this encounter
--- OUTSIDE RECORDS SUMMARY | 2024-01-03 13:10 | XMS_ITS | Encounter Summary ---
Author Organization [facility] [address] Care Team Providers Care Medical Driver Name Role Phone Pietro Son Primary Care Provider [phone] Reason for Referral * Diagnostic Test (Routine) - Closed Specialty Diagnoses / Procedures Referred By Marvin vo Referred To Contact Cardiology Diagnoses Chronic systolic heart failure Procedures Echocardiogram Transthoracic Anton Márquez MD [facility] [place] [address] [facility] [place] [address] Referral ID Status Reason Start Date Expiration Date V isits Requested Visits Authorized [id number] Closed Specialty Service Requested 02/24/2022 02/24/2023 1 1 Encounter Details Date Type Department Care Team (Late st Contact Info) Description 02/24/2022 3:00 PM EST Office Visit Cardiology at [address] [phone] [address] Márquez MD [facility] [place] [address] Chronic systolic heart failure; Maternal cardiovascular disease [...] Sign Reading Time Taken Comments Blood Pressure 104/74 02/24/2022 2:59 PM EST Pulse 102 02/24/2022 2:59 PM EST Temperature - - Respiratory Rate - - Oxygen Saturation 99% 02/24/2022 2:59 PM EST Inhaled Oxygen Concentration - - Weight 98.8 kg (217 lb 12.8 oz) 02/24/2022 2:59 PM EST Height - - Body Mass Index 31.25 11/28/2021 9:27 AM EDT documented in this encounter Progress Notes * Anton Márquez MD - 02/24/2022 3:00 PM EST Images from the original note were [...] 77. Weight on discharge 206lb. ProBNP 125. 09/2021: main complaint is low energy and dyspnea and inability to lose weight. She had increased her spironolactone to 50mg on her own and reports this made her breathing better. I started entresto. 11/2021: Weight 206-207lb. NYHA I-II. 02/2022: Started wellbutrin/lexapro. Weight 217.8lb today. Euvolemic on exam. Ran out of medications 1 month ago (metoprolol/spironolactone). Taking entresto. Here with her daughter Debbie who has an ear infection. Mary is active with house cleaning but no specific exercise. No cardiac complaints. Cardiac ROS: Denies chest pain, chest tightness, chest pressure,orthopnea,PND,trace LE edema, palpitations, syncope Systemic: Denies side [...] Outpatient Medications Medication Sig Dispense Refill ??? buPROPion XL (Wellbutrin XL) 150 mg Tablet Extended Release 24 hr Take 150 mg by mouth every morning. ??? escitalopram oxalate (LEXAPRO) 5 mg Tablet Take 5 mg by mouth daily. ??? fish oil-omega-3 fatty acids 1,000 mg Capsule Take 2 g by mouth daily. ??? polyethylene glycoL (Miralax) 17 gram/dose Powder Take 17 g by mouth daily. 255 g 3 ??? magnesium 250 mg Tablet Take by mouth. ??? iron,carb/vit C/vit B12/folic (IRON 100 PLUS ORAL) Take by mouth. ??? metoprolol succinate XL (Toprol-XL) 25 mg Tablet Sustained Release 24 hr Take 1 tablet by mouthdaily. 90 tablet 3 ??? sacubitriL-valsartan (Entresto) 49-51 mg Tablet tablet Take 1 tablet by mouth 2 times daily. Covered on month to month basis only (#60 with 11 refills). 60 tablet 11 ??? spironolactone (Aldactone) 25 mg Tablet Take 1 tablet by mouth daily. 90 tablet 3 No current facility-administered medications for this visit. Family history: Family History Problem Relation Age of Onset ??? Coronary Artery Disease Unknown ??? Cancer Unknown ??? Type 2 Diabetes Unknown Social history: Social History Tobacco Use ??? Smoking status: Former ??? Smokeless tobacco: Never ??? Tobacco comments: smokes weed Vaping Use ??? Vaping Use: Every day Substance Use Topics ??? Alcohol use: Not Currently ??? Drug use: Yes Types: Marijuana ROS: 11 point ros either negative or per HPI Objective: Patient Vitals for the past 24 hrs: Pulse BP SpO2 02/24/22 1459 (!) 102 104/74 99 % Gen: pleasant adult in NAD Eyes: [...] and Plan: Problems: #NICM: Recurrent peripartum cardiomyopathy. Doing well. Acute on chronic systolic heart failure. ACC/AHA stage C. Euvolemic and well compensated on physical exam. NYHA I-II. -continue ENTRESTO to 49-51 mg twice daily -Continue spironolactone and metoprolol 25mg daily. -I asked my team to get her most recent labs from [facility] for her renal function which she states wasnormal. -RTC 6 months with TTE. She missed her TTE appointment today. Contact information: Best number to reach Mary [phone] (cell) ok to leave messages Best number to reach Anderson Phelan [phone]( boyfriendcell) ok to leave messages Soraya Best [phone]. Return in about 6 months (around 08/25/2022) for In Person. Anton Márquze MD 02/24/2022 5:25 PM I spent at least 35 minutes of time on this patient encounter on the date of service performing activities related to: ?preparing to see the patient (eg, review of tests) ?obtaining and/or reviewing separately obtained history ?performing a medically appropriate examination and/or evaluation ?counseling and educating the patient/family/caregiver ?ordering medications, tests, or procedures ?referring and communicating with other health live in caregiver (when not separately reported) ?documenting clinical information in the electronic or other health record ?independently interpreting results (not separately reported) and communicating results to the patient/family/caregiver ?care coordination (not separately reported) documented in this encounter Plan of Treatment Upcoming Encounters Date Type Department Care Team (Late st Contact Info) Description 01/27/2024 1:00 PM EST Appointment Non-Invasive [place] [address] [facility] [place] [address] 01/27/2024 3:00 PM EST Office Visit Cardiology at [address] [place] [address] 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
--- OUTSIDE RECORDS SUMMARY | 2024-01-03 13:10 | XMS_ITS | Encounter Summary ---
[place] [address] Care Team Providers Care Furnace Installer Name Role Phone Pietro Son Primary Care Provider [phone] Encounter Details Date Type Department Care Team (Late st Contact Info) Description 02/03/2021 1:00 PM EST Clinical Support Obstetrics [place] [phone] Tash Lange, RN Numbness Social History Tobacco Use Types Packs/Day Years [...] Sign Reading Time Taken Comments Blood Pressure 109/79 02/03/2021 1:20 PM EST Pulse 72 02/03/2021 1:20 PM EST Temperature 36.7 ??C (98.1 ??F) 02/03/2021 1:20 PM ES T Respiratory Rate 14 02/03/2021 1:20 PM EST Oxygen Saturation 98% 02/03/2021 1:20 PM EST Inhaled Oxygen Concentration - - Weight 92.3 kg (203 lb 6.4 oz) 02/03/2021 1:20 P M EST Height - - Body Mass Index 29.18 01/28/2021 11:24 AM EST documented in this encounter Progress Notes * Tash Lange RN - 02/03/2021 1:00 PM EST Mary Christ Porras, : 1995 presents to clinic for BP check after c- section delivery of baby girl on 01/22/2021. Reports overall doing fine except left side numbness. incision looks to be well healing, denies pain. Reports using ice, tylenol and ibuprofen intermittently as needed. Reports doing both /bottlefeeding. and pumping as able and formula as back up to promote weight gain. Up to 5 pounds in ICN, hoping for discharge this week Reports lochia as none, no longer wearing a pad. Denies any vision changes, RUQ pain, headaches. No edema appreciated, instructed patient to elevate lower extremities as much as possible while at home. PHQ= 0. On Sertraline which has been working well encourage patient to reach out if dosing becomes no longer adequate. Vital Signs Today: BP- 109/79 HR- 72 Temp- 98.1F Resp- 14 Pulse Ox- 98% RA Pain- No Weight- 203.4lbs She states her left leg goes numb with walking or prolonged sitting, L hand ring and pinky finger go numb and goes up to shoulder with holding daughter or cupping motion of fingers (such as holding abottle). This numbness has been ongoing since she started walking after delivery. I think it may be a pinched nerve Good CSM, skin warm and dry, palpable pulses, good cap refill. Neuro assessment: alert and oriented, speaking clearly and appropriately. CALDERON with equal strength, balanced gait. I just walk slow Reviewed with Dr. Zimmerman, who plans to follow up with anesthesia. Patient aware to call clinic with any further questions or concerns. Police Inspector on record notified as well. documented in this encounter Plan of Treatment Upcoming Encounters Date Type Department Care Team (Late st Contact Info) Description 01/27/2024 1:00 PM EST Appointment Non-Invasive [place] [address] Anton Márquez MD [facility] [address] 01/27/2024 3:00 PM EST Office Visit Cardiology at [address] [phone] Anton Márquez MD [facility] [place] [address] documented as of this encounter Visit Diagnoses Diagnosis Numbness Disturbance of skin sensation documented in this encounter Care Teams Furnace Installer Relationship Specialty Start Date End Date Pietro Son PA [address] [place] [address] PCP - General Internal Medicine 09/27/20 documented as of this encounter
--- OUTSIDE RECORDS SUMMARY | 2024-01-03 13:10 | XMS_ITS | Encounter Summary ---
[place] [address] Care Team Providers Care Writing Manager Name Role Phone Pietro Son Primary Care Provider [phone] Reason for Visit * Reason Comments Medication Refill Encounter Details Date Type Department Care Team (Late st Contact Info) Description 03/05/2023 Refill Cardiology at [address] [phone] Anton Márquez MD [facility] [place] [address] Medication Refill Social History Tobacco Use Types [...] 1:00 PM EST Appointment Non-Invasive [place] [address] Anton Márquez MD [facility] [place] [address] 01/27/2024 3:00 PM EST Office Visit Cardiology at [address] [phone] Anton Márquez MD [facility] [place] [address] documented as of this encounter Visit Diagnoses Diagnosis Chronic systolic heart failure 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
--- OUTSIDE RECORDS SUMMARY | 2024-01-03 13:10 | XMS_ITS | Encounter Summary ---
[place] [address] Care Team Providers Care Sales Merchandising Specialist Name Role Phone Pietro Son Primary Care Provider [phone] Encounter Details Date Type Department Care Team (Late st Contact Info) Description 09/25/2021 10:30 AM EDT Office Visit Cardiology at [address] [phone] Anton Márquez MD [facility] [place] [address] Chronic systolic heart failure; 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; Palpitations Social History Tobacco Use Types Packs/Day Years [...] Sign Reading Time Taken Comments Blood Pressure 116/70 09/25/2021 10:24 AM EDT Pulse 84 09/25/2021 10:24 AM EDT Temperature - - Respiratory Rate - - Oxygen Saturation 100% 09/25/2021 10:24 AM EDT Inhaled Oxygen Concentration - - Weight 94.3 kg (208 lb) 09/25/2021 10:24 AM EDT Height 177.8 cm (5' 10) 09/25/2021 10:24 AM EDT Body Mass Index 29.84 09/25/2021 10:24 AM EDT documented in this encounter Patient Instructions * Patient Instructions* Anton Márquez MD - 09/25/2021 10:30 AM EDT Stop LOSARTAN and START ENTRESTO. This new medication is twice a day (morning and night). I sent [facility] pharmacy so they can do the insurance paperwork to get this for you. Restart spironolactone and metoprolol. I sent these to [facility] in [facility]. Ziopatch monitor Get your labs at [facility] when you are on entresto, metoprolol, and spironolactone.Call me when you get labs. documented in this encounter Progress Notes * Anton Márquez MD - 09/25/2021 10:30 AM EDT Images from the original note were not included. CARDIOLOGY OUTPATIENT NEW PATIENT NOTE PRIMARY CARE PROVIDER: GABRIELLA Mayer Chief Complaint: Mary Porras is a 26 y.o. 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 LVEF currently 36%. -Pre- LVEF, last 04/19/2017 59%. LVEF had dropped to 45% in early . Euvolemic. Started on metoprolol 25mg XL daily. -Her LV function improved mildly to 54% on metoprolol XL monotherapy. -Mary had written to me about progressive lower extremity edema and was found to have an LVEF which had reduced from 54 to 35% with an LV end-diastolic dimension increasing from 4.9 to 5.9 cm at 32 weeks. #Delivery: -Admitted for induction of labor from cardio-OB clinic for maternal medical condition (worsening cardiomyopathy with EF 35%). delivery was indicated for nonreassuring status. -Admitted for IOL due to progressive LV dysfunction. delivery for maternal indications (remote from term and worsening maternal status, low likelihood of successful IOL) s/p hysterectomy. Pre- weight 160lb. Her weight on admission for delivery was 216 pounds and BNP 77. Weight on discharge 206lb. ProBNP 125. Current weight 208lb. Last visit: stopped breast feeding due to lactose intolerance/difficulties. Otherwise getting positional orthostasis. Difficulty with medication adherence with a . Today main complaint is low energy and dyspnea and inability to lose weight despite small portions of a healthy diet (which we reviewed in detail). Her TTE shows stable, moderately reduced LVEF. She has run out of medication due to issues with her pharmacy. Last took them 2 weeks ago. She had increased her spironolactone to 50mg on her own and reports this made her breathing better. Cardiac ROS: Denies chest pain, chest tightness, chest pressure, +dyspnea on exertion, +orthopnea, +PND, + trace LE edema, +palpitations, syncope Systemic: Denies side effects to medications. [...] Outpatient Medications Medication Sig Dispense Refill ??? fish oil-omega-3 fatty acids 1,000 mg Capsule Take 2 g by mouth daily. ??? spironolactone (Aldactone) 25 mg Tablet Take 1 tablet by mouth daily. 90 tablet 3 ??? losartan (Cozaar) 25 mg Tablet Take 1 tablet by mouth daily. 90 tablet 3 ??? ibuprofen (Advil) 600 mg Tablet Take [...] 24 hr Take 1 tablet by mouthdaily. (Patient not taking: Reported on 09/25/2021) 90 tablet 5 ??? sertraline (Zoloft) 50 mg Tablet Take 0.5 tablets by mouth daily. (Patient not taking: Reportedon 09/25/2021) 90 tablet 3 ??? vit 75/iron/folic/om3 ([id number] FUM-FOLIC AC-OM3 ORAL) Take by mouth. No current facility-administered [...] the past 24 hrs: Pulse BP SpO2 09/25/21 1024 84 116/70 100 % Gen: pleasant female in NAD Eyes: Non-injected, no scleral icterus [...] The following plan was provided in writin) Stop LOSARTAN and START ENTRESTO. This new medication is twice a day (morning and night). I [facility] to [facility] pharmacy so they can do the insurance paperwork to get this for you. 2) Restart spironolactone and metoprolol 25mg daily. I sent these to [facility] in [facility]. 3) Get your labs at [facility] when you are on entresto, metoprolol, and spironolactone.Call me when youget labs. Based on weight, symptoms, and labs at that time. I will either increase aldactone to 50mg as her diuretic or increase entresto. #Palps: Ziopatch monitor Contact information: Best number to reach Mary [phone] (cell) ok to leave messages Best number to reach Anderson Phelan [phone]( boyfriendcell) ok to leave messages Soraya Best [phone]. Return in about 2 months (around 11/26/2021) for In Person with labs on her way in.. Anton Márquez MD 09/25/2021 10:50 AM I spent at least 45 minutes of time on this patient encounter on the date of service performing activities related to: ?preparing to see the patient (eg, review of tests) ?obtaining and/or reviewing separately obtained history ?performing a medically appropriate examination and/or evaluation ?counseling and educating the patient/family/caregiver ?ordering medications, tests, or procedures ?referring and communicating with other health care coordinator (when not separately reported) ?documenting clinical information in the electronic or other health record ?independently interpreting results (not separately reported) and communicating results to the patient/family/caregiver ?care coordination (not separately reported) documented in this encounter Plan of Treatment Upcoming Encounters Date Type Department Care Team (Late st Contact Info) Description 01/27/2024 1:00 PM EST Appointment Non-Invasive [place] [phone] Anton Márquez MD [facility] [place] [address] [place] [address] 01/27/2024 3:00 PM EST Office Visit Cardiology at [address] [phone] Anton Márquez MD [facility] [place] [address] documented as of this encounter Results * Basic Metabolic Panel (non-fasting) (10/20/2021 10:08 AM EDT) [facility] Glucose 87 65 - 199 mg/dL [facility] Comment:Diabetes: >=200 mg/d L plus symptoms Blood Urea Nitrogen 9 8 - 18 mg/dL [facility] Creatinine 0.73 0.70 - 1.20 mg/dL [facility] Sodium 139 135 - 145 mmol/L [facility] Potassium 4.4 3.5 - 5.0 mmol/L [facility] Comment: Please note: ??Patients with WBC >100,000 may have falsely elevated Potassium levels. ??For accurate Potassium quantification in these patients send serum separator tube (gold top) for subsequent determinations. ??Contact the Clinical Chemistry Laboratory if there are any questions. Chloride 103 98 - 107 mmol/L [facility] Carbon Dioxide 28 22 - 31 mmol/L [facility] Anion Gap 8 5 - 15 mmol/L [facility] Calcium 9.8 8.5 - 10.5 mg/dL [facility] Est Glomerular Filtration Rate 117 >=60 mL/min/1. 73 m?? [facility] Comment: This patient's estimated GFR [...] Lab Anton Márquez MD CHEMISTRY ORDER JERRY [facility] [place] [address] * pro-Brain Natriuretic Peptide (10/20/2021 10:08 AM EDT) NT-proBNP 81 <=124 pg/mL [facility] Blood 10/20/2021 10:0 8 AM EDT 10/20/2021 10:38 AM EDT Narrative Resulting Agency Comment Spec In Lab Anton Márquez MD CHEMISTRY ORDER JERRY [facility] [place] [address] documented in this encounter Visit Diagnoses Diagnosis Chronic systolic heart failure 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 Palpitations documented in this encounter Care Teams Sales Merchandising Specialist Relationship Specialty Start Date End Date Pietro Son PA [address] [place] [address] PCP - General Internal Medicine 09/27/20 documented as of this encounter
--- OUTSIDE RECORDS SUMMARY | 2024-01-03 13:10 | XMS_ITS | Encounter Summary ---
Author Organization [facility] [place] [address] Care Team Providers Care Pedodontist Name Role Phone Pietro Son Primary Care Provider [phone] Reason for Referral * Diagnostic Test (Routine) - Closed Specialty Diagnoses / Procedures Referred By Contac t Referred To Contact Cardiology Diagnoses Chronic systolic heart failure Procedures Echocardiogram Transthoracic([facility]) Anton Márquez MD [facility] [place] [address] [facility] [place] [address] Referral ID Status Reason Start Date Expiration Date V isits Requested Visits Authorized [id number] Closed Specialty Service Requested 03/10/2021 03/10/2022 1 1 Encounter Details Date Type Department Care Team (Late st Contact Info) Description 03/10/2021 10:20 AM EST Office Visit Cardiology at [address] [phone] Anton Márquez MD [facility] [place] [address] Chronic systolic heart failure; Vaginal bleeding between periods Social History Tobacco Use Types Packs/Day Years [...] Sign Reading Time Taken Comments Blood Pressure 108/72 03/10/2021 10:09 AM EST Pulse 85 03/10/2021 10:09 AM EST Temperature - - Respiratory Rate - - Oxygen Saturation 99% 03/10/2021 10:09 AM EST Inhaled Oxygen Concentration - - Weight 92.3 kg (203 lb 6.4 oz) 03/10/2021 10:09 AM EST Height 177.8 cm (5' 10) 03/10/2021 10:09 AM EST Body Mass Index 29.18 03/10/2021 10:09 AM EST documented in this encounter Patient Instructions * Patient Instructions* Anton Márquez MD - 03/10/2021 10:20 AM EST Today we switched your enalapril to losartan 25mg daily. This is at [facility]. Your ultrasound shows some improvement in your heart muscle function, but we still want it to get back to normal. Let me know how you are feeling in between visits. documented in this encounter Progress Notes * Anton Márquez MD - 03/10/2021 10:20 AM EST Images from the original note were not included. CARDIOLOGY OUTPATIENT NEW PATIENT NOTE PRIMARY CARE PROVIDER: GABRIELLA Mayer Chief Complaint: Mary Porras is a 25 y.o. 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 LVEF currently 36%. #Delivery: -Admitted for induction of labor from cardio-OB clinic for maternal medical condition (worsening cardiomyopathy with EF 35%). delivery was indicated for nonreassuring status. -Admitted for IOL due to progressive LV dysfunction. delivery for maternal indications (remote from term and worsening maternal status, low likelihood of successful IOL) s/p hysterectomy. Pre- weight 160lb. Pre- LVEF, last 04/19/2017 59%. LVEF had droppedto 45%. Euvolemic. Started on metoprolol 25mg XL daily. Her LV function improved mildly to 54% on metoprolol XL monotherapy. RHOINI late February.Mary had written to me about progressive lower extremity edema and wasfound to have an LVEF which had reduced from 54 to 35% with an LV end-diastolic dimension increasing from 4.9 to 5.9 cm at 32 weeks. On arrival her BNP was 77 and her exam was reasonably euvolemic and compensated. She received steroids for lung maturation and subsequently underwent delivery for combined maternal and obstetric indications (progressive left ventricular systolic dysfunction, prior prolonged stage II of labor with arrest of delivery). She was seen by our heart failure attending Dr. Toledo and multidisciplinary discussion was had with our [facility] colleagues. She underwent successful delivery to live-born baby girl on 01/22/2021. I personally spoke to her about her options for medical therapy for her left ventricular systolic dysfunction. Option 1) use metoprolol succinate, enalapril, and spironolactone, which are all safe during breast- feeding. Option 2) forego breast-feeding and initiate Entresto as part of her medical therapy. We discussed the limited evidence to support a rationale for Entresto with progressive cardiomyopathy during . Entrestohas been shown to be superior to other RASi like enalapril and other cardiomyopathies. She had a desire to attempt breast-feeding with the contingency that should her symptoms are systolic dysfunction progress we transition to therapies that have been shown to be slightly superior like Entresto andpossibly an SGLT2 inhibitor. She was monitored overnight in the [facility] without incident and was subsequently transferred back to the [facility] to facilitate bonding and breast- feeding. Her weight on admission was 216 pounds and BNP 77. Weight on discharge 206lb. ProBNP 125. Last visit 01/28/21: She is taking metoprolol 25mg, enalapril 5mg and spironolactone 12.5mg daily. Today she is 3 days post discharge and doing well. Weight is 206lbs. No orthopnea, PND, LE edema. Nochest pain. No palpitations, presyncope, or syncope. BNP 113. BMP stable. Interim stopped breast feeding due to lactose intolerance/difficulties. No hospitalizations, procedures, complaints. Asymptomatic, euvolemic, no need for diuretic. Increased spironolactone to 25mg daily because they were difficult to cut. Has had difficulty taking daily medications. If she forgets at night, she'll switch to a morning schedule and take them the next day. Interested in escalating medical therapy for TTE with LVEF 36%. Losartan chosen for ease of use and ease of transition to entresto if needed. Reported one episode of heavy vaginal bleeding and dizziness two weeks ago. Otherwise getting positional orthostasis. Cardiac ROS: Denies chest pain, chest tightness, chest pressure, dyspnea on exertion, orthopnea, PND, LE edema, palpitations, syncope Systemic: Denies side [...] Outpatient Medications Medication Sig Dispense Refill ??? enalapriL (Vasotec) 5 mg Tablet Take 1 tablet by mouth daily. 30 tablet 11 ??? spironolactone (Aldactone) 25 mg Tablet Take 0.5 tablets by mouth daily. 90 tablet 3 ??? metoprolol succinate XL (Toprol-XL) 25 mg Tablet Sustained Release 24 hr Take 1 tablet by mouthdaily. 90 tablet 5 ??? oxyCODONE (Roxicodone) 5 mg Tablet Take 1 tablet by mouth every 4 hours as needed for Pain. 15 tablet 0 ??? acetaminophen (Tylenol) 325 mg Tablet Take 2 tablets by mouth every 6 hours as needed for Pain.30 tablet 3 ??? ibuprofen (Advil) 600 mg Tablet Take 1 tablet by mouth every 6 hours as needed for Pain. 30 tablet 5 ??? polyethylene glycoL (Miralax) 17 gram/dose Powder Take 17 g by mouth daily. 255 g 3 ??? sertraline (Zoloft) 50 mg Tablet Take 0.5 tablets by mouth daily. 90 tablet 3 ??? lidocaine (Lidoderm) 5% Adhesive Patch, Medicated Apply 1 patch onto the skin daily. (leave on for 12 hours and remove for 12 hours) (Patient not taking: Reported on 02/11/2021) 30 patch 0 ??? magnesium 250 mg Tablet Take by mouth. ??? iron,carb/vit C/vit B12/folic (IRON 100 PLUS ORAL) Take by mouth. ??? vit 75/iron/folic/om3 ([id number] FUM-FOLIC AC-OM3 ORAL) Take by mouth. No [...] ros either negative or per HPI Objective: Vitals [place] 08/02/[place] [facility] Weight 72.8 kg (160 lb 9.6 oz) Height 177.8 cm (5' 10) BSA (Calculated - sq m) 1.9 sq meters BMI (Calculated) 23.04 Heart Rate 97 BP 121/76 SpO2 100 % Gen: pleasant female in NAD [...] and well compensated on physical exam. NYHA I. -Continue metoprolol 25 mg XL daily -Switch enalapril 5mg daily to losartan 25mg daily. TTE with LVEF 36%. Losartan chosen for ease of use and ease of transition to entresto if needed. -BMP in 1 week. Increase losartan to 50mg at that time if able. -Asymptomatic, euvolemic, no need for diuretic. Contact information: Best number to reach Mary [phone] (cell) ok to leave messages Best number to reach Anderson Phelan [phone]( boyfriendcell) ok to leave messages Soraya Best [phone]. RTC 2 months with echo on the day. If LVEF remains 35-40% will switch to entresto. Anton Márquez MD 03/10/2021 8:59 AM documented in this encounter Plan of Treatment Upcoming Encounters Date Type Department Care Team (Late st Contact Info) Description 01/27/2024 1:00 PM EST Appointment Non[place] [phone] Anton Márquez MD [facility] [place] [address] 01/27/2024 3:00 PM EST Office Visit Cardiology at [address] [phone] Anton Márquez MD [facility] [place] [address] documented as of this encounter Results * ECHO COMPLETE (09/25/2021 9:20 AM EDT) EF 38 HEARTLAB SYSTEM Anatomical Region Laterality Modality Cardiac Other 09/25/2021 8:42 AM EDT Narrative 09/25/2021 9:44 AM EDT ? Echocardiogram Report Name: MARY PORRAS ?Study Date: 09/25/2021 08:42 AMBP: 91/53 mmHg ? Patient Location: 4A 0000 ? HR: 79 : 1995 ? Height: 178 cm ? Account: [id number] Age: 26 yrs ? Weight: 92 kg Gender: Female ?BSA: 2.1 m2 Ordering Physician: ANTON MÁRQUEZ Referring Physician: ANTON MÁRQUEZ Performed By: Bushra Tompkins RDCS Reason For Study: CHF Exam Location: [facility]. Interpretation Summary Left ventricle is normal in [...] decreased EDV and less spheroid appearance. Procedure Complete-[id number]. Satisfactory quality. There is normal sinus rhythm. [...] Greene MD - 09/25/2021 Echocardiogram Report Name: MARY PORRAS Study Date: 208:42 AMBP: 91/53 mmHg Patient Location: [id number] HR: 79 : 1995 Height: 178 cm Account: [id number] Age: 26 yrs Weight: 92 kg Gender: Female BSA: 2.1 m2 Ordering Physician: ANTON MÁRQUEZ Referring Physician: ANTON MÁRQUEZ Performed By: Bushra Tompkins RDCS Reason For Study: CHF Exam Location: [facility]. Interpretation Summary Left ventricle is normal in [...] by decreased EDV andless spheroid appearance. Procedure Complete-[id number]. Satisfactory quality. There is normal sinus rhythm. [...] Visit Diagnoses Diagnosis Chronic systolic heart failure Vaginal bleeding between periods Metrorrhagia Chronic systolic heart failure documented in this encounter Care Teams Pedodontist Relationship Specialty Start Date End Date Pietro Son PA [address] [place] [address] PCP - General Internal Medicine 09/27/20 documented as of this encounter
--- OUTSIDE RECORDS SUMMARY | 2024-01-03 13:10 | XMS_ITS | Clinical Summary ---
Author Organization [facility] Address [address] [facility] [place] [address] Care Team Providers Care Rehabilitation Consultant Name Role Phone Pietro Son Primary Care Provider [phone] Allergies No known active allergies Medications Medication Sig Dispensed Refills Start Date End Date Status magnesium 250 mg Tablet Take by mouth. Active iron,carb/vit C/vit B12/folic (IRON 100 PLUS ORAL) Take by mouth. Active polyethylene glycoL (Miralax) 17 gram/dose Powder Take 17 g by mouth daily. 255 g 3 01/25/2021 Active fish oil-omega-3 fatty acids 1,000 mg Capsule Take 2 g by mouth daily. Active buPROPion XL (Wellbutrin XL) 150 mg Tablet Extended Release 24 hr Take 150 mg by mouth every morning. Active escitalopram oxalate (LEXAPRO) 5 mg Tablet Take 5 mg by mouth daily. Active sacubitriL-valsartan (Entresto) 49-51 mg Tablet tablet Take 1 tablet by mouth 2 times daily. Covered on month to month basis only (#60 with 11 refills). 60 tablet 11 02/24/2022 Active metoprolol succinate XL (Toprol-XL) 25 mg ER 24 hr tabletIndications:Chron ic systolic heart failure,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 Take 1 tablet by mouth daily. 90 tablet 08/30/2023 Active spironolactone (Aldactone) 25 mg tabletIndications:Chron ic systolic heart failure,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 Take 1 tablet by mouth daily. 90 tablet 08/30/2023 Active Active Problems Problem Noted Date Diagnosed Date Numbness 02/03/2021 Cardiomyopathy, peripartum, antepartum Maternal cardiovascular dise ase affecting in third trimester 08/23/2020 Chronic systolic heart failure 08/04/2020 Supervision of high risk in third trim herilnda 08/04/2020 Sinus tachycardia 10/11/2013 Cardiomyopathy 07/21/2013 Overview (09/19/2020): 1. Nonischemic dilated cardiomyopathy Presented age 4 months (1995) with CHF and severely dilated hypokinetic LV. 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 Treated with immunoglobulin Slow improvement in sx and LV function over years with low normal LVEF, No CHF sx. Treated with vasotec, coumadin, b suintha, Digoxin, lasix. Meds stopped age 7-8 y. Echo 06/30/2013 (22 weeks ): LVEF 51% with diffuse hypokinesis and mild RV and LV dilitation (LVEDD 6 cm). Trace MR, TR. Est PAS 15. 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 08/23/202008/13 Immunizations Name Administration Dates Next Due Influenza Quadrivalent, Preservative Free 2020 Tdap (Adacel, Boostrix) 01/02/2021 Family History Medical History Relation Comments Cancer Other Coronary Artery Disease Other Type 2 Diabetes Other Relation Status Comments Other Social History Tobacco Use Types Packs/Day [...] Orientation Straight 11/26/2021 10 :32 AM EDT Last Filed Vital Signs Vital Sign Reading Time Taken Comments Blood Pressure 104/74 02/24/2022 2:59 PM EST Pulse 102 02/24/2022 2:59 PM EST Temperature 36.4 ??C (97.5 ??F) 02/11/2021 1 :46 PM EST Respiratory Rate 18 02/11/2021 1:46 PM EST Oxygen Saturation 99% 02/24/2022 2:5 9 PM EST Inhaled Oxygen Concentration - - Weight 98.8 kg (217 lb 12.8 oz) 02/24/2022 2:59 PM EST Height 177.8 cm (5' 10) 11/28/2021 9:2 7 AM EDT patient reported Body Mass Index 31.25 11/28/2021 9:27 AM EDT Plan of Treatment Upcoming Encounters Date Type Department Care Team (Late st Contact Info) Description 01/27/2024 1:00 PM EST Appointment [place] [phone]quez MD [facility] [address] 01/27/2024 3:00 PM EST Office Visit Cardiology at [address] [phone] M[address]quez MD [facility] [address] Health Maintenance Due Date Last Done Comments Pneumococcal Vaccine: At-Risk 5-64yrs (1 of 2 - PCV) 0 2002 Hepatitis C Screening 2014 Lipid Screening 2014 Hepatitis B vaccine (0-59 yrs) (1) 06/29/2015 PAP Smear 2017 Covid-19 Vaccine (1 - season) 2023 Influenza (Flu) vaccine (1 o f 1 - Influenza standard series) 11/14/2023 01/02/2021 Tetanus/Diphtheria/Pertussis Vaccines (2 - Td or Tdap) 01/02/2031 01/02/2021 HIV screen Completed 06/22/2013 Procedures Procedure Name Priority Date/Time Associated Diagnosis Comments INITIAL EXTERNAL RESULTS PANEL Routine 06/22/2013 from Last 3 Months or Most Recently Relevant to Health Maintenance Results * (ABNORMAL) - Initial External Results (06/22/2013) ABORH Type B+(Corporate Quality Manager al Lab) Ab Screen Interp Negative( External Lab) Hemoglobin 12.0 - 16.0 Hematocrit 36.0 - 46.0 Mean Cell Volume 82.0 - 108.0 Platelet Rubella Antibody IgG Immune(Ex ternal Lab) Syphilis IgG Negative( External Lab) Hepatitis B Surface Antigen Negative( External Lab) HIV 1/2 Ab Negative( External Lab) Thyroid Stimulating Hormone Hemoglobin A1c Cystic Fibrosis Report Protein, 24 Hour Urine Creatinine Clearance, 24 Hour Urine Creatinine Aspartate Aminotransferase 2 - 40 Alanine Aminotransferase 3 - 30 Uric Acid Urine Culture GC Gene Amp Negative( External Lab) Chlamydia Gene Amp negative( External Lab) Cytopathology Final Report GBS Screen Gluc Baseline Glucose 1 hour Glucose 2 hour Glucose 3 hour Oral Glucose Dose 06/22/2013 Historical Provider POINT OF CARE LYNN Mendoza ORDERABLES from Last 3 Months or Most Recently Relevant to Health Maintenance Advance Directives * Attempt Cardiopulmonary Resuscitation - Inpatient (Latest Code Status on File) Date Activated Date Inactivated Comments 01/23/2021 7:55 AM 01/25/2021 7:18 PM Question Answer Comments Code Status decision made by: Patient * Attempt Cardiopulmonary Resuscitation - Inpatient Date Activated Date Inactivated Comments 01/16/2021 4:07 PM 01/23/2021 7:55 AM Question Answer Comments Code Status decision made by: Patient * Full Code Date Activated Date Inactivated Comments 10/08/2013 10:46 PM 10/12/2013 8:08 PM Question Answer Comments Does patient have decision m aking capacity? Yes, order is based on Patient wishes. * Full Code Date Activated Date Inactivated Comments 10/04/2013 5:51 PM 10/08/2013 8:41 AM Question Answer Comments Order Status: Initial Order Does patient have decision m aking capacity? Yes, Order is based on Patients wishes. Care Teams Rehabilitation Consultant Relationship Specialty Start Date End Date Pietro Son PA [address] [place] [address] PCP - General Internal Medicine 09/27/20
--- OUTSIDE RECORDS SUMMARY | 2024-01-03 13:11 | XMS_ITS | Encounter Summary ---
Author Organization [facility] [place] [address] Care Team Providers Care Vinyl Dipper Name Role Phone Pietro Son Primary Care Provider [phone] Reason for Visit * Auth/Cert Specialty Diagnoses / Procedures Referred By Contcarla t Referred To Contact Diagnoses Cardiomyopathy, peripartum, antepartum AND TUBAL Procedures PRO DELIVERY ONLY PRO REMOVAL OF FALLOPIAN TUBE @ DELIVERY (WRVU 16.13) @SALPINGECTOMY (WRVU 12.95) Referral ID Status Reason Start Date Expiration Date Visits Re quested Visits Authorized [id number] 1 1 Encounter Details Date Type Department Care Team (Latest Contact Info) Description 01/16/2021 2:50 PM EDT - 01/25/2021 5:13 PM [facility] Hospital [place] [address] Grace Desai MD [facility] [place] [address] Malissa Borrero MD [facility] [place] [address] Mandie Mauro MD [facility] [place] [address] Cardiomyopathy, peripartum, antepartum; state; Chronic systolic heart failure; 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; Supervision of high risk in third trimester; Maternal cardiovascular disease affecting in third trimester Discharge Disposition: Home Social History Tobacco Use [...] Sign Reading Time Taken Comments Blood Pressure 124/77 01/25/2021 2:25 PM EST Pulse 95 01/25/2021 2:25 PM EST Temperature 36.6 ??C (97.9 ??F) 01/25/2021 10:[address] Respiratory Rate 16 01/25/2021 10:01 AM EST Oxygen Saturation 98% 01/25/2021 2:25 PM EST Inhaled Oxygen Concentration - - Weight 95.3 kg (210 lb) 01/25/2021 11:08 AM EST Height 177.8 cm (5' 10) 01/20/2021 8:07 AM EST Body Mass Index 30.13 01/20/2021 8:07 AM EST documented in this encounter Discharge Summaries * Thao Whitt MD - 01/25/2021 5:13 PM EST Images from the original note were not included. Discharge Summary Patient Name: Mary Porras Patient Age: 25 y.o. Language: Armenian Race: White Ethnicity: Not nor Admit date: 01/16/2021 Discharge date and time: 01/25/2021 Attending Physician: Mandie Mauro MD Discharge Physician: Grace Desai MD Care Provider: [facility] Maternal Medicine Referring Hospital: N/A Follow-up Recommendations for Providers: - follow up with cardiology 01/27 or 01/28 (to be arranged by Dr. 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 Cardiomyopathy, peripartum, antepartum Resolved Hospital Problems No resolved problems to display. Active Non-Hospital Problems Diagnosis ??? 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 Chronic systolic heart failure ??? Supervision of high risk in third trimester ??? Sinus tachycardia ??? Cardiomyopathy ??? High risk teen Operations/Major Procedures: 01/22/2021 Repeat??Low Transverse Delivery with Bilateral Salpingectomy Indication for Admission: Mary Porras??is a 25 y.o.?? at 32w5d??weeks gestation admitted at the request of MFM & Cardiology??for betamethasone, NST, and cardiology consultation givenrecent reduction in systolic function (45 to 35%) on TTE. ?? History of Presentation: Mary Porras??is a 25 y.o.?? at 32w5d??weeks gestation admitted at the request of M & Cardiology??for betamethasone, NST, and cardiology consultation given recent reduction in systolic function (45 to 35%) on TTE. ?? On interview, patient endorses significant 2 week??SOB,??triggered with light activities (eg.??packing her bags).??Associated with LE bilateral calf swelling and ~60 lb weight gain during this . Endorses recreational marijuana vaping 1-2x/day during this . Denies associated CP, syncope, orthopnea, PORTER, vision changes, recent viral illnesses, GI or symptoms. ?? From a labor standpoint,??No VB. No ctx. No LOF. Good mvt. Her sBP has been in 100s. Currently taking Metoprolol XL 25 mg qHS and was recently asked to start digoxin per Cardiology. She has notgotten chance to bulk picker Digoxin??250 mcg?BID??from the pharmacy.? Her has been??complicated by the following:? 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 TTE (01/14/21): Severely dilated LV. EF 35% (reduced from 54% in 12/10/20). Diffuse hypokinesis, except for basal anterolateral & inferolateral segments nl.? OB Hx: prior pLTC/S at 37w0d.? Review of Systems- Negative to complete review except as noted in the HPI. ?? Obstetric Review of Systems Total Weight Gain this ??29 kg (64 lb) Movement:??normal Contractions:??none Leaking:??None Bleeding;??none now Preeclampsia signs and symptoms:??None Admission History Mary Porras??is a 25 y.o.?? at 32w5d??gestation being admitted for antepartum monitoring for cardiocascular optimization and management given recent finding of significant decline in systolic dysfunction in the setting of known dilated non-ischemic cardiomyopathy. On admission,patient hemodynamically stable on room air, no s/s of right heart failure, however did have CAMPUZANO andlower extremity edema. Not currently in labor. Admission NST stable. Cardiology, neonatology and anesthesiology were consulted upon arrival to coordinate this patient's care. Hospital Course Including Delivery and Events Given the patient's concerning decline in LVEF, the patient was continued on her home metoprolol. She did not require any immediate escalation in her heart failure regimen and was overall stable. In consultation with cardiology and the patient, the team elected to move forward with a planned after betamethasone course was completed for lung maturity. The patient was involved in all decision-making between the OB and cardiology teams and was also inagreement, additionally the patient was wishing to avoid the trauma of her first delivery. Consent was obtained. The patient received antepartum betamethasone and was beta-complete on 01/17. ?? While awaiting surgery, she was closely monitored for volume retention with the steroids and remained on continuous telemetry without any events noted. On 01/17/21, the patient's daily metoprolol was held due to borderline soft but asymptomatic BP, however later that evening developed mild chest pain with mild tachycardia to the low 110s. Her metoprolol was given. She had no EKG changes or arrhythmias noted on telemetry, a negative troponin and a normal pro-BNP (70) at that time. Since that episode, the patient did not have any further episodes of chest pain, and her cardiac status remained stable until her scheduled on 01/22/2021. ?? On 01/22/2021, the patient underwent a scheduled repeat low transverse section with bilateral salpingectomy at 33w4d for complicated by peripartum cardiomyopathy in the setting of history of acute on chronic DCM under epidural anesthesia in the main OR with cardiac anesthesia andOB present for delivery. She had an EBL of 500 cc without complication. She delivered a liveborn female infant, named Debbie, with APGARs of 8 and 9, and weight of 2080 gm; normal uterus, tubes and ovaries. The patient tolerated the procedure well, however did have a mild pressor requirement, and??was??in stable condition at its conclusion.??The infant was taken to the ICN after delivery for stabil ization and monitoring in the setting of prematurity. The patient was taken??to the cardiovascular ICU (CVCC) in stable condition for planned postoperative admission??for careful monitoring given thefluid shifts in the immediate post- period and her reduced LVEF. On postoperative day 1, she was restarted on sertraline at 25 mg daily due to anxiety and her history of depression with plans to increase to her former dose of 50 mg after one week (will start 50 mg on 01/30/21). Given her exacerbated mood symptoms, the patient desired to be seen by theBIT team (medical psychology) after her delivery to help process her unanticipated hospitalization and clinical status. ?? After delivery, she remained stable in the CVCC. She was continued on an epi drip for hemodynamic support in the acute post- setting, which was easily weaned and discontinued overnight after her . On POD1, she had already significantly diuresed and was net negative 3L. Her epidural was removed early on POD#1 and the patient's pain was well controlled on acetaminophen and oxycodone.She briefly used IV toradol, which was later discontinued. She was re- started on metoprolol on POD1, and did not require any additional inotropic support or diuretics during the immediate post-partumperiod. She was transferred [facility] during the afternoon on POD1 due to clinical stability. ?? Upon arrival at the [facility], the patient reported a new sore throat, which was mild. She was re-tested for COVID-19 given that she was having this symptom and requested to visit her infant in the ICN. Her repeat COVID PCR was negative. On POD#2, she was started on enalapril 5 mg once daily in the evening, and her metoprolol tartrate was consolidated to metoprolol succinate 25 mg. She was started on spironolactone 12.4mg on POD#3 and tolerated this well. She remained hemodynamically stable without signs or symptoms of fluid overload and was deemed by collaborative assessment with Dr. Márquez and the Cardiology- Obstetrics Consult service to be stable for discharge home. ?? Her post-operative course was otherwise uneventful. Her post-operative hemoglobin was 10.4, for which she was instructed to continue her vitamins. Her pain was well controlled with oral painmedications. She was tolerating a regular diet, was ambulating and voiding without difficulty, and w as passing flatus. Her fundal exam was as expected, and her lochia was within normal limits. She was establishing of her . Patient underwent salpingectomy during her for future contraception. She was discharged to home on POD#3 with plans for follow up in clinic as above. ?? She will follow up in clinic with cardiology for optimization of her heart failure medication regimen as well as with [facility] OB ([place]). Delivery Information Information for the patient's : Christiano Porras Girl [[id number]] INFORMATION Baby Walt Porras 01/22/2021 3:24 PM by Lower Segment Transverse Sex: female Gestational Age: 33w4d [place] Measurements: Weight: 4 lb 9.4 oz (2080 g) APGARS One Minute Five Minutes Ten Minutes Totals: 8 9 EBL: 500 mL Vital signs at Discharge: BP: 124/77, Heart Rate: 95, Temp: 36.6 ??C (97.9 ??F), Resp: 16, BMI (Calculated): 30.62 Height: 177.8 cm (5' 10) (01/20/21 0807) Weight: 95.3 kg (210 lb) (01/25/21 1108) Functional and Cognitive status: Stable Important Studies and Lab Data: Labs: Last wbc, hgb, hct plt Recent Labs 01/24/21 0319 WBC 11.2* HGB 10.4* HCT 32.6* Recent Results (from the past 72 hour(s)) COVID-19 PCR Specimen: Nasopharyngeal Swab Symptoms->COVID-19 Suspected Result Value Ref Range SARS-CoV-2 RNA PCR Not Detected Not Detected SARS-CoV-2 Source RECORD CHANGER Swab Basic Metabolic Panel (non-fasting) Result Value Ref Range Glucose Lvl 83 65 - 199 mg/dL BUN 15 8 - 18 mg/dL Creatinine 0.59 (L) 0.70 - 1.20 mg/dL Sodium 136 135 - 145 mmol/L Potassium 4.2 3.5 - 5.0 mmol/L Chloride 104 98 - 107 mmol/L CO2 24 22 - 31 mmol/L Anion Gap 8 5 - 15 mmol/L Calcium 9.1 8.5 - 10.5 mg/dL Estimated GFR 128 >=60 mL/min/1.73 m?? Magnesium Result Value Ref Range Magnesium 0.70 0.69 - 1.07 mmol/L Phosphorus Result Value Ref Range Phosphorus 4.2 2.5 - 4.5 mg/dL Hemogram Result Value Ref Range WBC 11.2 (H) 4.0 - 9.5 x10(3)/mcL RBC 3.71 (L) 4.00 - 5.21 x10(6)/mcL Hemoglobin 10.4 (L) 11.7 - 15.5 g/dL Hematocrit 32.6 (L) 35.7 - 45.8 % MCV 87.9 82.6 - 94.4 fL MCH 28.0 27.1 - 32.0 pg MCHC 31.9 31.7 - 35.0 g/dL Platelets 181 145 - 357 x10(3)/mcL RDWSD 43.3 37.0 - 46.0 fL RDWCV 13.6 11.5 - 14.1 % MPV 10.0 7.6 - 12.9 fL nRBC % Auto 0.0 % nRBC Abs Auto 0.000 0.000 - 0.000 x10(3)/mcL Differential, Automated Result Value Ref Range Neutrophils % 61.4 % Neutr Abs (ANC) 6.85 (H) 1.70 - 6.10 x10(3)/mcL Lymphocytes % 23.0 % Lymphocytes Abs 2.6 0.9 - 3.2 x10(3)/mcL Monocytes % 8.1 % Monocyte Abs 0.9 0.3 - 0.9 x10(3)/mcL Eosinophils % 3.4 % Eosinophils Abs 0.4 0.0 - 0.4 x10(3)/mcL Basophils % 0.4 % Basophils Abs 0.0 0.0 - 0.1 x10(3)/mcL Immature Gran % 3.70 % Octavia Gran Abs 0.41 (H) 0.00 - 0.04 x10(3)/mcL Scan, Peripheral Blood Result Value Ref Range Plat Estimate Normal RBC Morphology Abnormal Hypochromia Slight pro-Brain Natriuretic Peptide Result Value Ref Range ProBNP 125 (H) <=124 pg/mL Magnesium Result Value Ref Range Magnesium 0.72 0.69 - 1.07 mmol/L Basic Metabolic Panel (non-fasting) Result Value Ref Range Glucose Lvl 72 65 - 199 mg/dL BUN 15 8 - 18 mg/dL Creatinine 0.51 (L) 0.70 - 1.20 mg/dL Sodium 138 135 - 145 mmol/L Potassium 4.2 3.5 - 5.0 mmol/L Chloride 104 98 - 107 mmol/L CO2 25 22 - 31 mmol/L Anion Gap 9 5 - 15 mmol/L Calcium 9.0 8.5 - 10.5 mg/dL Estimated GFR 135 >=60 mL/min/1.73 m?? Studies: Most Recent Transthoracic Echocardiogram (01/14/21) 1. The left ventricle is severely dilated. Global left ventricular systolic function is moderately reduced. The quantitative left ventricular ejection fraction by biplane Higginobtham's method is 35%. There is diffuse hypokinesis present. ??except for the basal anterolateral and inferolateral segments which are normal. 2. The right ventricle is normal in size. Right ventricular global systolic function is normal. The estimated pulmonary artery systolic pressure is 22 mmHg. The estimated right atrial pressure is 8 mmHg. 3. There is no hemodynamically significant valve disease. 4. See remainder of report for additional findings. Pending Studies and Lab Data: None Discharge Conditions/Prognosis: good Discharge to: Home Contraceptive Plans: bilateral salpingectomy Allergies at Discharge: No Known Allergies Immunizations Given this Hospitalization: Immunization History Administered Date(s) Administered ??? Influenza Vaccine PF, Quadrivalent 01/02/2021 ??? Tdap Vaccine 01/02/2021 Discharge Medications: Your Medications New Medications Dose Details acetaminophen 325 mg Tab Commonly known as: Tylenol Take 2 tablets by mouth every 6 hours as needed for Pain. 650 mg Quantity: 30 tablet Refills: 3 enalapriL 5 mg Tab Commonly known as: Vasotec Take 1 tablet by mouth daily. 5 mg Quantity: 30 tablet Refills: 11 ibuprofen 600 mg Tab Commonly known as: Advil Take 1 tablet by mouth every 6 hours as needed for Pain. 600 mg Quantity: 30 tablet Refills: 5 lidocaine 5% Ptmd Commonly known as: Lidoderm Apply 1 patch onto the skin daily. (leave on for 12 hours and remove for 12 hours) Quantity: 30 patch Refills: 0 oxyCODONE 5 mg Tab Commonly known as: Roxicodone Take 1 tablet by mouth every 4 hours as needed for Pain. 5 mg Quantity: 15 tablet Refills: 0 polyethylene glycoL 17 gram/dose Powd Commonly known as: Miralax Take 17 g by mouth daily. 17 g Quantity: 255 g Refills: 3 sertraline 50 mg Tab Commonly known as: Zoloft Take 0.5 tablets by mouth daily. 25 mg Quantity: 90 tablet Refills: 3 spironolactone 25 mg Tab Commonly known as: Aldactone Take 0.5 tablets by mouth daily. 12.5 mg Quantity: 90 tablet Refills: 3 Continued medications, unchanged Dose Details docusate sodium 100 mg Cap Commonly known as: Colace Take 1 capsule by mouth 2 times daily for 40 days. 100 mg Quantity: 20 capsule Refills: 3 IRON 100 PLUS ORAL Take by mouth. Refills: 0 magnesium 250 mg Tab Take by mouth. Refills: 0 metoprolol succinate XL 25 mg Tablet sr Commonly known as: Toprol-XL Take 1 tablet by mouth daily. 25 mg Quantity: 90 tablet Refills: 5 [id number] FUM-FOLIC AC-OM3 ORAL Take by mouth. Refills: 0 STOPPED Medications digoxin 125 mcg (0.125 mg) Tab Commonly known as: Lanoxin Smoking Status at Discharge: Social History Tobacco Use Smoking Status Former Smoker Smokeless Tobacco Never Used Tobacco Comment smokes weed Instructions Given to Patient at Discharge: Patient Instructions Patient Instructions Follow-up: -- 1-2 week follow-up visit with Maternal Medicine Service -- Follow up with Cardiology as scheduled on 01/[address] Márquez (CALL on Wednesday if this is not scheduled) for labwork and assessment -- 6 week visit -- Continue PO metoprolol 25 mg XL, PO enalapril 5 mg, and PO spironolactone 12.5 mg nightly -- Call with increasing shortness of breath, chest pain, palpitations, worsening swelling Activity: -- Nothing in vagina until bleeding stops -- No heavy lifting (nothing greater than 15 lbs), pushing or pulling for 6 weeks. -- No driving for two weeks if you had a section or if you are taking narcotic medication. Please call your OB provider for the following: -- Fever more than 100.5 degrees -- Heavy bleeding that saturates a pad an hour -- Increased abdominal pain, nausea , shaking chills -- Redness, increased pain, discharge at incision if you had a delivery. -- Hot, hard, tender areas on the breast and feeling generally unwell. -- Depression Contact Numbers: If you see an cutter operator tile call: [phone] 9 am - 5 pm, after 5 pm If you see a support director call: [phone] all hours If you see a family practitioner call: [phone] all hours If you were transferred to our institution for delivery and cannot reach your local OB provider, call the cutter operator tile numbers. Diet: You may resume your regular diet, drink plenty of fluids. Be sure you drink plenty of fluids.Please use Colace 1-2 tablets twice daily for the entire time that you are taking narcotic pain medication to keep your bowel movements soft and regular. If you are constipated or have not had a bowel movement in 3 days, please use milk of magnesia (or Miralax) as directed over the counter. Shower/Bath: Showering is fine. Short baths are OK but you should avoid having any abdominal incision under water for more than 10-15 minutes for the next 2 weeks. When showering, rinse the incision with water, do not use soap on the areas, and pat dry well. Wound Care: You may remove your dressing the day after you leave the hospital if they were not removed for you. Under the dressings will be small pieces of paper tape over your incision. This tape can get wet in the shower, just pat them dry afterwards. These pieces of tape should fall off within 5-7 days; if they have not, please remove them after one week. You have stitches just under the skin and these will dissolve on their own over the next couple of weeks. They do not need to be removed. Pain medications include Ibuprofen, Tylenol and oxycodone ??? Please alternate Ibuprofen 600 mg every 6 hours with food with Tylenol 650 mg every 6 hours around the clock for the next several days and then after that use it only as needed. Drink plenty of fluids while you are home with this medication ??? Please use the oxycodone 5 mg every 4 hours as needed for pain that breaks through the Ibuprofen and Tylenol General Instructions None Future Appointments and Orders Future Orders Complete By Expires Durable Medical Equipment Order [EQ148 Custom] As directed Process Instructions: Scheduling Instructions: Comments: Mary Porras 1995 [address] [facility] [address] (home) Infant's Legal name: Debbie Phelan 's : [birth year] Insurance: [place] Plan Address Payor Plan Phone Number Payor Plan Fax Number Effective Dates [address] 04/26/2019 - None Entered [facility] [address] Subscriber Name Subscriber Date Member ID JORDONMARY Polo 1995 [id number] [employer] # [phone] Symphony breast pump [id number] Length of need: 3 months 's diagnosis: Infant born at 33 weeks 4 days Purpose of Appliance: To Initiate and Maintain Medical Necessity: /Lactating Mother- Z39.1 Breast Engorgement relative to infant born at 33 weeks 4 days gestation Feeding problem of , unspecified P92.9 Premature Infant in ICN from mother P07.30 A standard breast pump will not provide sufficient milk for this baby. [facility] NPI #: [id number] [employer] [place] [facility] [place]ESS [place] MEDICAID MEDICAL NECESSITY FORM (MNF) ORTHOTICS, PROSTHETICS, MEDICAL SUPPLIES & EQUIPMENT All claims for supplies and equipment require a written order. Orders must be signed by a physician, physician visitor services assistant, or nurse practitioner. All home health plans of care require a physician signature. Copies of the order must be kept in the patient record by both the ordering provider and Durable Medical Equipment (DME) supplier. It is the responsibility of the ordering provider to complete or review this Medical Necessity Form (MNF) and provide adequate documentation supporting the medical need for the items listed. The ordering provider must provide this documentation either for the Medicaid beneficiary to take to the DME supplier of choice, or directly to the DME supplier. The DME bernard pplier must be enrolled in [place] Medicaid. The ordering provider must document a description of the device and/or its HCPCs code. If the ordering provider does not provide the HCPCs code, the DME supplier must provide the HCPCs code for all prior authorizations and on all claims, on this form or on other documentation submitted to the [facility] and DXC. The codes submitted to [facility] and DXC must matchthe description documented by the ordering provider. All orders must adhere to state and federal rules and regulations. [place] Medicaid Rules can be found online at [email or web address].[email or web address]-badg-ahacs. Section A: (must be completed or reviewed and signed by ordering provider) Beneficiary's name: Mary Porras Medicaid ID#: Insurance: [place] Pay[place] Plan Address Payor Plan Phone Number Payor Plan Fax Number Effective Dates [address] 04/26/2019 - None Entered [facility] [address] Subscriber Name Subscriber Date Member ID MARY PORRAS 1995 [id number] Diagnoses: /Lactating Mother- Z39.1 Breast Engorgement relative to born at 33 weeks 4 days gestation Feeding problem of , unspecified P92.9 Premature in ICN from mother P07.30 A standard breast pump will not provide sufficient milk for this baby. Place of service: Is the beneficiary living in a senior living facility? Yes [ ] No[x] Is the request part of a home health plan of care? Yes [x] No[ ] 4. HCPCs Code Description Modifier Medical Necessity of Item Expected Length of Need (months) 3 months E0604, Hospital Grade Breast Pump __X_ To Initiate and Maintain . A standard breast pump will not provide adequate milk supply for patient. 1 ___ ___ ___ ___ ___ ___ ___ ___ ___ ___ ___ ___ ___ ___ ___ ___ The HCPCS code(s) may be provided by the supplying provider when the ordering provider has includeda clear description of the required item(s). I CERTIFY THAT THE ITEM(S) PRESCRIBED ABOVE IS(ARE) A MEDICALLY NECESSARY PART OF THE COURSE OF TREATMENT AND NOT FOR CONVENIENCE, COMFORT, OR PRECAUTIONARY PURPOSES 5. Ordering provider's name & address: Please see ordering physician signature below - [facility], [address] [place] [address] 6. Ordering provider's signature: Pl ease see order signature below. Date signed: Please see signedorder date 7. Ordering provider's Medicaid provider #: [id number] Phone#: [phone] See back of form for DME information and instructions --- Section B FOR DURABLE MEDICAL EQUIPMENT AND SUPPLIES (completed by the DME supplier) 8. Date supplies/original equipment first dispensed: ____/____/ 9. Name of DME employee completing above information: 10.Signature of DME employee: Phone#: 11. Medicaid DME provider #: Claims: All DME requires an MNF to be submitted with the claim, with the exception of certain itemsthat are identified in the Provider Manual, available at: [email or web address]. For exceptions, an MNF must be kept on file by the DME supplier. Prior Authorization: The DME supplier must include a copy of an MNF with every Prior Authorization request. Fax the MNF and any other supporting documents to the [facility] at . Use of this [facility] Medical Necessity Form is recommended for all prior authorization requests to ensure timely processing. Medicaid may request a copy of the medical record upon audit. *INSTRUCTIONS FOR SECTIONS A & B* Section A must be completed or reviewed, signed, and dated by the ordering physician/physician visitor services assistant/nurse practitioner. Section B must be completed by the DME supplier when equipment and/or supplies are ordered. Beneficiary's first & last name, and Medicaid ID number. List all relevant diagnoses, including status diagnoses such as colostomy, tracheostomy. If this isan initial order or there have been significant clinical changes, attach documentation reflecting the provider's treatment plan. All DME ordered within a home health plan of care require a physician signature. The place of service in which the item will be used. If it is to be used in a facility, document the facility name and address. A place of service code may be used. List for each item being ordered: HCPCS code (optional for ordering provider, but then must appear on other documentation submitted to [facility] for PA and to [facility] for billing), medical necessity rationale, expected length of need (will be interpreted as months unless stated otherwise), and the number ofitems needed (for example: 2 bottles of sterile saline per month). NOTE: If the quantity ordered ismore than the number allowed (based on customary usage and as listed in the [facility] DME Restriction list, available at: http://[facility].[place].gov/for-providers/szytrrzi-qknqxldg-krwlbjozyf), an explanation from the physician is required. The ordering provider's name and address. The ordering provider's signature must be that of the ordering provider and attests to the validityof the information given. The date of this signature is also required. Medicaid provider number and phone number. To be completed by the DME supplier: the date that the base device was first provided. If there is no base device (for example, incontinence products), document the date the supply was first provided. The name of the DME employee completing the form. DME employee's signature and phone number. DME Medicaid provider number. Questions: Name/Description of requested item: Hospital Grade rental breast pump Size requested: Referral to Home Health - at DISCHARGE [OCG6716 CPT(R)] As directed Process Instructions: Scheduling Instructions: Comments: DOCUMENTATION FOR VNA SERVICES (INCLUDING THOSE PATIENTS WITH MEDICARE COVERAGE REQUIRING HOME VNA SERVICES AND/OR HOSPICE SERVICES) PATIENT'S LOCATION: Mary Porras [address] [facility] [id number] (home) Cell: Telephone Information: [place] [address] [employer] Supervisor's Name: Self In discussion with the attending physician, it is certified that this patient is under their care and that they, or a Nurse Practitioner,Clinical Nurse specialist or Physician Cycle Liaison who is working directly with them, had a face to face encounter that meets the physician face to face encounter requirements with this patient on 01/24/2021 The encounter with the patient was in whole, or in part, for the following medical condition, whichis the primary reason for home health care services: s/p c/s 01/22/21 In discussion with the provider, it is certified that, based on their findings, the following services are medically necessary for home health services. To provide the following care/treatments with the clinical findings supporting the need for services as follows: HOME CARE ORDERS: HOME HEALTH AGENCY: [facility] PHONE: [phone] FAX: [phone] RN orders: 1. Assess /postoperative recovery 2. Assess breast feeding/pumping 3. Assess care management, clinical status including risk for depression. 4. Provide care guidance, anticipatory guidance for maternal post period and assist with connecting to appropriate community resources. Start of care: Upon discharge. Please see the week of January 26 2021. Please note that any additional orders needed or changes will need to be obtained from this patient's PCP: G[address]RIELL[address] [place] [address] OR [facility] OB Team [phone]. All VNA agencies which cover the area of patient's residence have been reviewed, either verbally sharan writing, and patient/family have chosen the home health care agency noted. Questions: Agency name and contact information: [facility] Patient location post discharge: Home What services are requested: Registered Nurse Start date: Responsible MD post discharge contact info: [facility] OB Team Discharge References/Attachments Depression: (Armenian) documented in this encounter Discharge Instructions * Patient Instructions* Thao Whitt MD - 01/25/2021 2:16 PM EST Images from the original note were not included. Patient Instructions Follow-up: -- 1-2 week follow-up visit with Maternal Medicine Service -- Follow up with Cardiology as scheduled on 01/[address] Márquez (CALL on Wednesday if this is not scheduled) for labwork and assessment -- 6 week visit -- Continue PO metoprolol 25 mg XL, PO enalapril 5 mg, and PO spironolactone 12.5 mg nightly -- Call with increasing shortness of breath, chest pain, palpitations, worsening swelling Activity: -- Nothing in vagina until bleeding stops -- No heavy lifting (nothing greater than 15 lbs), pushing or pulling for 6 weeks. -- No driving for two weeks if you had a section or if you are taking narcotic medication. Please call your OB provider for the following: -- Fever more than 100.5 degrees -- Heavy bleeding that saturates a pad an hour -- Increased abdominal pain, nausea , shaking chills -- Redness, increased pain, discharge at incision if you had a delivery. -- Hot, hard, tender areas on the breast and feeling generally unwell. -- Depression Contact Numbers: If you see an cutter operator tile call: [phone] 9 am - 5 pm, after 5 pm If you see a support director call: [phone] all hours If you see a family practitioner call: [phone] all hours If you were transferred to our institution for delivery and cannot reach your local OB provider, call the cutter operator tile numbers. Diet: You may resume your regular diet, drink plenty of fluids. Be sure you drink plenty of fluids.Please use Colace 1-2 tablets twice daily for the entire time that you are taking narcotic pain medication to keep your bowel movements soft and regular. If you are constipated or have not had a bowel movement in 3 days, please use milk of magnesia (or Miralax) as directed over the counter. Shower/Bath: Showering is fine. Short baths are OK but you should avoid having any abdominal incision under water for more than 10-15 minutes for the next 2 weeks. When showering, rinse the incision with water, do not use soap on the areas, and pat dry well. Wound Care: You may remove your dressing the day after you leave the hospital if they were not removed for you. Under the dressings will be small pieces of paper tape over your incision. This tape can get wet in the shower, just pat them dry afterwards. These pieces of tape should fall off within 5-7 days; if they have not, please remove them after one week. You have stitches just under the skin a nd these will dissolve on their own over the next couple of weeks. They do not need to be removed. Pain medications include Ibuprofen, Tylenol and oxycodone ??? Please alternate Ibuprofen 600 mg every 6 hours with food with Tylenol 650 mg every 6 hours around the clock for the next several days and then after that use it only as needed. Drink plenty of fluids while you are home with this medication ??? Please use the oxycodone 5 mg every 4 hours as needed for pain that breaks through the Ibuprofen and Tylenol * Attachments The following attachments cannot be sent through Care Everywhere. * Depression: (Armenian) documented in this encounter Medications at Time of Discharge Medication Sig Dispensed Refills Start Date End Date polyethylene glycoL (Miralax) 17 gram/dose Powder Take 17 g by mouth daily. 255 g 3 01/25/2021 magnesium 250 mg Tablet Take by mouth. iron,carb/vit C/vit B12/folic (IRON 100 PLUS ORAL) Take by mouth. docusate sodium (Colace) 100 mg Capsule Take 1 capsule by mouth 2 times daily for 40 days. 20 capsule 3 01/25/2021 03/06/2021 enalapriL (Vasotec) 5 mg Tablet Take 1 tablet by mouth daily. 30 tablet 11 01/25/2021 03/10/2021 spironolactone (Aldactone) 25 mg Tablet Take 0.5 tablets by mouth daily. 90 tablet 3 01/25/2021 03/10/2021 metoprolol succinate XL (Toprol-XL) 25 mg Tablet Sustained Release 24 hrIndications:Chronic systolic heart failure,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 Take 1 tablet by mouth daily. 90 tablet 5 01/25/2021 04/17/2021 oxyCODONE (Roxicodone) 5 mg Tablet Take 1 tablet by mouth every 4 hours as needed for Pain. 15 tablet 01/25/2021 03/10/2021 acetaminophen (Tylenol) 325 mg Tablet Take 2 tablets by mouth every 6 hours as needed for Pain. 30 tablet 3 01/25/2021 03/10/2021 ibuprofen (Advil) 600 mg Tablet Take 1 tablet by mouth every 6 hours as needed for Pain. 30 tablet 5 01/25/2021 02/24/2022 sertraline (Zoloft) 50 mg Tablet Take 0.5 tablets by mouth daily. 90 tablet 3 01/25/2021 09/25/2021 lidocaine (Lidoderm) 5% Adhesive Patch, Medicated Apply 1 patch onto the skin daily. (leave on for 12 hours and remove for 12 hours) 30 patch 01/25/2021 03/10/2021 vit 75/iron/folic/om3 ([id number] FUM-FOLIC AC-OM3 ORAL) Take by mouth. 08/16/2020 09/25/2021 documented as of this encounter Progress Notes * Shandra Mccormick RN - 01/25/2021 5:01 PM EST Routine PP care provided, goals provided. VSS. Family bonding promoted.Pumping independently. Pump provided. IV removed. Safe sleep discussed with parents. Car seat safety reviewed. AVS and dischargesummary reviewed, all questions answered. Ready for discharge home. * Rivka Henriquez RN - 01/25/2021 2:56 PM EST 01/25/21 1455 [REMOVED] PICC Line - Double Lumen 01/17/211407 basilic vein (medial side of arm), right 5 Fr Removal Date/Time: 01/25/211451 Placement Date/Time: 01/17/211407 Location: basilic vein (medial side of arm), right Device: pressure injectable catheter Size: (c) 5 Fr External Length (cm): 0 cm Internal Length (cm): 38 cm Total Length (cm)... Site Preparation/Maintenance dressing: dry and intact;dressing: transparent semipermeable applied;dressing: CHG gel Securement catheter stabilization device, secured with Phlebitis 0-->no symptoms Infiltration 0-->no symptoms Site Signs/Symptoms no redness;no swelling;no warmth;no pain;no palpable cord;no streak formation;no drainage Interventions other (see comments) (removed per MD order; recovered 38 cm) Picc Catheter Removal: PICC Removal Catheter Removal: Requested for dual lumen PICC removal in RUE per MD order. Date: 01/25/211449 [ x ] Catheter removed intact with 38 cm removed from R arm, per MD order. Reason for removal: [x ] End of Therapy [ ] Phlebitis [ ] Cellulitis [ ] Catheter-related infection: [ ] Suspected [ ] Documented [ ] Thrombus: [ ] Suspected [ ] Documented [ ] Infiltration [ ] Other Description of insertion/exit site: [x ] no signs of infection, no bleeding at site [ ] other (see narrative below) Patient Education: [x ] Patient instructed to observe site for redness, swelling, discomfort and /or exudates and miguel Healthcare Provider if any of these signs/symptoms present. Comments: The following teaching sheet was provided to patient along with education regarding monitoring parameters and limitations. Patient expressed an understanding of teaching. Patient Guidelines for Self-Care after PICC (Peripherally Inserted Central Catheter) Removal Your PICC was removed on 01/25/21 at 1450 A Petroleum ointment was applied to the insertion site (where the PICC went into your skin). The nurse applied gauze and a transparent (see-through) dressing over the insertion site. To help your PICC insertion site heal: *Avoid heavy lifting (for example, no more than a gallon of milk) or vigorous activities for 24 hours * Keep the dressing over the insertion site dry for 24 hours * You can remove the dressing after 24 hours. Call your doctor after your PICC has been removed if you experience any of the following: * Fever (temperature over 100.1F) * Chills * Drainage from the insertion site ( including bleeding). *Redness, warmth, pain, swelling, or a pink/red streak going up your arm *A knot at the insertion site or anywhere in the arm *If bleeding should occur, hold firm pressure for 3-5 minutes. Do not remove the dressing that the nurse put on when the PICC was removed. If needed, apply another dressing over the first dressing. If bleeding does not stop, call or seek medical attention. * Grace Desai MD - 01/25/2021 9:07 AM EST Delivery Note ID: Mary Porras is a 25 y.o. who is POD #3 after repeat delivery and bilateral salpingectomy at 33w4d for exacerbation of chronic non- ischemic dilated cardiomyopathy with EF 30%. She was admitted to [facility] POD#0 to POD#1 and remained clinically stable, transferred to in stablecondition POD#1. S: Mary is doing well today. She has minimal incisional pain which is controlled with PO meds. No shortness of breath or chest pain. No palpitations. She is tolerating a regular diet without nausea or vomiting. She is ambulating without lightheadedness or dizziness. Passing gas, no BM. O: Last value Range last 24 hrs Temperature Temp: 36.6 ??C (97.9 ??F) Temp: [36.5 ??C (97.7 ??F)-36.9 ??C (98.4 ??F)] Heart Rate Heart Rate: 86 Heart Rate: [75-91] Blood Pressure BP: 118/69 BP: (108-120)/(64-78) Respiratory Rate Resp: 16 Resp: [16-18] SpO2 SpO2: 99 % SpO2: [99 %] Intake/Output Summary (Last 24 hours) at 01/25/2021 1207 Last data filed at 01/25/2021 0700 Gross per 24 hour Intake 1275 ml Output 1200 ml Net 75 ml Patient Vitals for the past 168 hrs: Weight 01/25/21 1108 95.3 kg (210 lb) 01/24/21 0607 93.7 kg (206 lb 9.6 oz) 01/23/21 0600 94.9 kg (209 lb 3.5 oz) 01/22/21 0624 96.1 kg (211 lb 13.8 oz) 01/21/21 0614 96.8 kg (213 lb 6.5 oz) 01/20/21 0807 96.8 kg (213 lb 6.5 oz) 01/19/21 0833 98 kg (216 lb) Exam: Gen: NAD Heart: regular rate and rhythm, no murmurs Lungs: clear to auscultation bilaterally, no wheezes, crackles Abdomen: soft, NT/ND, no rebound or guarding, fundus firm 4cm below umbilicus Incision/Dressing: clean/dry/intact, well approximated with Dermabond over subcuticular closure, noerythema/exudate. Lidocaine patches in place Extremities: nontender, +1 nonpitting edema in LE bilaterally. Labs: Recent Labs 01/25/21 0630 01/24/21 0319 01/23/21 0320 WBC -- 11.2* 16.1* HGB -- 10.4* 10.4* HCT -- 32.6* 31.8* PLATELET -- 181 195 CREATININE 0.51* 0.59* 0.47* Assessment: Mary Porras is a 25 y.o. POD #3 after repeat delivery and bilateral salpingectomy at 33w4d for exacerbation of chronic non-ischemic cardiomyopathy with moderate systolic dysfunction and dilation, with decrease in EF from 54 to 35% prompting need for delivery. She required a brief stay in the [facility] postoperatively, and has [facility], Heart Failure Team, and Cardiology following. She has remained stable without significant evidence of fluid overload or decompensated heart failure, with no abnormal findings of telemetry.Her regimen currently includes 25 mg XL metoprolol, 5 mg enalapril, and 12.5 mg spironolactone which appears to be sufficiently managing her heart failure and fluid status at a level stable for discharge home today. Plan: General Care ?? She is meeting appropriate post op milestones. Continue routine post op care. ?? Hgb 10.4 s/p EBL 500mL and stable today. Pt asymptomatic for anemia. Continue to monitor for signs or symptoms of worsening anemia. ?? VTE prophylaxis: SCDs, heparin 5000u BID ?? Immunization needs: COVID-19 ?? : Pumping, feels like her milk has come in ?? Contraception plan: bilateral salpingectomy Chronic non-ischemic cardiomyopathy with moderate systolic dysfunction and dilation, with EF 35% ?? Restarted on home metoprolol tartrate 12.5 q6h, transitioned overnight to enalapril 5 mg nightlywith plan for 25 mg XL PO metoprolol this AM, and spironolactone 12.5 mg daily at noon today. ?? Repeat labs this AM notable for normal electrolytes including mag, normal creatinine, and BNP of125 (up from 70 prior to delivery) ?? Reviewed with Dr. Márquez and she felt given her stable vitals and labs with moderate but not significant increase in BNP, she was relatively euvolemic without signs or symptoms of fluid overload and spironolactone would be sufficient for diuresis at this time ?? per cardiology team will likely start an ACEi as an outpatient ?? Cardiology recommended only a short course of NSAIDs, s/p Toradol for pain control postoperatively yesterday, but continues on only with Tylenol and oxycodone to avoid JOHN. Will give Toradol x 5 doses and then discontinue NSAIDs. Creatinine normal. ?? Will watch closely for fluid shifts and signs/symptoms of worsening heart failure. Important to keep her hemodynamically stable with good rate control. History of depression ?? Started sertraline at 25mg daily on 01/23 for 1week then up-titrate to 50 mg ?? BIT team consult placed Dispo: Anticipated discharge likely this afternoon, pending clinical course and cardiology recommendation. This patient was discussed on rounds. Thao Whitt MD , PGY-3 Obstetrics and Gynecology 01/25/2021 I have seen and examined the patient, providing smith components as outlined below. I have reviewed the resident???s above note; my evaluation of the patient is below: POD#3 RCS cardiomyopathy with declining LVEF. Pain controlled. Lochia light. Ambulating. Toleratingdiet. Voiding. Denies CP, SOB, palp, CAMPUZANO, PND, orthopnea, edema. BP 124/77 Pulse 95 Temp 36.6 ??C (97.9 ??F) (Oral) Resp 16 Ht 177.8 cm (5' 10) Wt 95.3 kg (210 lb) SpO2 98% Unknown BMI 30.13 kg/m?? Lungs CTA CV RRR Abdomen soft, NT Uterus NT Incision CDI Ext NT I/R POD#3 RCS salpingectomy Cardiomyopathy with reduced LVEF. Cardiology f/u. On metoprolol. Starting ZEUS inhibitor. Spironolactone diuretic. Check labs. Will need f/u echocardiogram No clinical evidence of CHF at present. Heparin VTE prophylaxis D/c today Mild anemia GRACE DESAI MD * Home Hester DO - 01/25/2021 7:36 AM EST Brief Inpatient Cardiology Consult Follow-up Note Interval Events: - pt started on enalpril and metoprolol which she has tolerated well - appears euvolemic on exam Recommendations - start spironolactone 12.5 mg QD this afternoon as previously discussed. Jareth Hester DO Analytics Senior Manager; PGY-6 01/25/2021 * Sintia Da Silva RN - 01/24/2021 10:07 PM EST Images from the original note were not included. 01/24/212203 PICC Line - Double Lumen 01/17/21 1408 basilic vein (medial side of arm), right 5 Fr Placement Date/Time: 01/17/211407 Location: basilic vein (medial side of arm), right Device: pressure injectable catheter Size: (c) 5 Fr External Length (cm): 0 cm Internal Length (cm): 38 cm Total Length (cm): 38 cm Placement Verification: p... External Catheter Length (cm) 0 Mid-Upper Arm Circumference (cm) 31 Site Preparation/Maintenance dressing: changed;site cleansed: chlorhexidine solution;dressing: transparent semipermeable applied;dressing: CHG gel;dressing: dry and intact Dressing change due 01/31/21 Securement catheter stabilization device, secured with Distal (Purple) Patency/Maintenance flushed without difficulty;blood return, able to obtain;alcoholimpregnated cap applied Proximal (Red) Patency/Maintenance flushed without difficulty;blood return, able to obtain;alcohol impregnated cap applied Phlebitis 0-->no symptoms Infiltration 0-->no symptoms Site Signs/Symptoms no drainage;no streak formation;no palpable cord;no pain;no warmth;no swelling;no redness Routine PICC dressing change * Arlene Long RN - 01/24/2021 3:17 PM EST OFFICE OF CARE MANAGEMENT/metal sprayer Patient will not be discharging with PICC. VNA orders updated. [facility] notified. Arlene Long RN Case Manager [facility] [phone] Pager [phone] DOCUMENTATION FOR VNA SERVICES (INCLUDING THOSE PATIENTS WITH MEDICARE COVERAGE REQUIRING HOME VNA SERVICES AND/OR HOSPICE SERVICES) PATIENT'S LOCATION: Mary Porras [address] [place] [id number] (home) Cell: Telephone Information: Patient will be staying at [place] [id number] [employer] Supervisor's Name: Self In discussion with the attending physician, it is certified that this patient is under their care and that they, or a Nurse Practitioner,Clinical Nurse specialist or Physician Cycle Liaison who is working directly with them, had a face to face encounter that meets the physician face to face encounter requirements with this patient on 01/24/2021 The encounter with the patient was in whole, or in part, for the following medical condition, whichis the primary reason for home health care services: s/p c/s 01/22/21 In discussion with the provider, it is certified that, based on their findings, the following services are medically necessary for home health services. To provide the following care/treatments with the clinical findings supporting the need for services as follows: HOME CARE ORDERS: HOME HEALTH AGENCY: [facility] PHONE: [phone] FAX: [phone] RN orders: 1. Assess /postoperative recovery 2. Assess breast feeding/pumping 3. Assess care management, clinical status including risk for depression. 4. Provide care guidance, anticipatory guidance for maternal post period and assist with connecting to appropriate community resources. Start of care: Upon discharge. Please see the week of January 26 2021. Please note that any additional orders needed or changes will need to be obtained from this patient's PCP: [address] [place] [address] OR [facility] OB Team [phone]. All VNA agencies which cover the area of patient's residence have been reviewed, either verbally sharan writing, and patient/family have chosen the home health care agency noted. * Anton Márquez MD - 01/24/2021 2:57 PM EST CARDIOLOGY CONSULT NOTE Patient Name: Mary Porras Service: OBTeam Responsible Attending: MD Zunilda PCP: GABRIELLA Mayer PCP phone #: [phone] CC: Peripartum CDMO ON Events: No events overnight. The pt was transferred from the [facility] yesterday as she has been stable in the early post- period. The pt denies any chest pain, sob, or CAMPUZANO. She actually feels like she is breathing much easier. Noquestions today. Problem List/Past Medical History Patient Active Problem List Diagnosis ??? Cardiomyopathy, peripartum, antepartum ??? Maternal cardiovascular [...] TR. Est PAS 15. B-sunitha initiated 06/30/13 ??? High risk teen With known cardiomyopathy Meds: No current facility-administered medications on file prior to encounter. Current Outpatient Medications on File Prior to Encounter Medication Sig Dispense Refill ??? magnesium 250 mg Tablet Take by mouth. ??? iron,carb/vit C/vit B12/folic (IRON 100 PLUS ORAL) Take by mouth. ??? docusate sodium (Colace) 100 mg Capsule Take 100 mg by mouth 2 times daily. ??? metoprolol succinate XL (Toprol-XL) 25 mg Tablet Sustained Release 24 hr Take 1 tablet by mouthdaily. 90 tablet 2 ??? vit 75/iron/folic/om3 ([id number] FUM-FOLIC AC-OM3 ORAL) Take by mouth. Allergies: No Known Allergies Vitals: Last value Range last 24 hrs Temperature Temp: 36.8 ??C (98.2 ??F) Temp: [36.8 ??C (98.2 ??F)-36.9 ??C (98.4 ??F)] Heart Rate Heart Rate: (!) 102 Heart Rate: [68-102] Blood Pressure BP: 121/82 BP: (116-122)/(70-82) Respiratory Rate Resp: 17 Resp: [16-17] SpO2 SpO2: 98 % SpO2: [96 %-100 %] Examination: General - No acute distress. Well-groomed/nourished. Speech is normal HEENT - EOMI. No scleral icterus. Noninjected. Moist membranes. Respiratory: Clear to auscultation bilaterally. Good effort/excursion. Cardiac - RRR, normal S1/S2, no audible murmur, gallop or rubs. No JVD. No KATHERINE. Abdomen - Soft, nontender/nondistended, normal active bowel sounds. Extremities - Warm. No clubbing or cyanosis. Radial Pulses: 2+ B/l Neuro - Limited exam. No deficits. Laboratory: CBC: Recent Labs 01/24/21 0319 01/23/21 0320 01/16/21 1648 WBC 11.2* 16.1* 13.3* HGB 10.4* 10.4* 11.6* PLATELET 181 195 300 Chemistry: Recent Labs 01/24/2131801/23/2131901/16/21 1648 NA 136 136 137 K 4.2 4.2 3.7 CL 104 105 102 CO2 24 22 24 BUN 15 10 7* CREATININE 0.59* 0.47* 0.57* GLUCOSE 83 89 76 Recent Labs 01/24/2131801/23/2131901/16/21 1648 CALCIUM 9.1 8.8 9.4 MAGNESIUM 0.70 0.73 -- PHOS 4.2 -- -- LFT's: Recent Labs 01/16/21 1648 BILITOT <0.2* ALBUMIN 3.9 ALKPHOS 114* ALT 10 AST 15 Coags: No results for input(s): PT, INR, PTT, FIBRINOGEN, DDIMER in the last 168 hours. Invalid input(s): THROMBIN TIME Cardiac enzymes: Recent Labs 01/17/21201801/16/21 1648 TROPONINT <0.01 <0.01 ASSESSMENT: Mary Porras is a 25 yo woman w/ a pmh sig for pediatric viral myocarditis (age 4 months) and previous peripartum cardiomyopathy, presenting today after having found a newly reduced EF of 35% (from 45%) on out-pt f/u echocardiogram. Now s/p section and doing well. Remains clinically stable. Exam was unremarkable today, and the pt is actually feeling much better now s/p delivery. Appears well compensated. Will continue current metoprolol dosing w/ the addition of Enalapril 5 mg daily. ?? Peripartum CDMO: -Care per OB team -Start Enalapril 5 mg tonight -For change in clinical status, please contact the hog killer -See Dr. Márquez's separate documentation for details of the plan. 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 Approval for rental pump received from Sandra ibarra [facility]. Patient given rental breast pump number [id number] from [employer]. Rental of pump is covered by her insurance for 3 months. Arlene Long RN Case Manager Theresa Morelos [phone] Pager [phone] Mary Porras 1995 [address] [place] [address] (home) 's Legal name: Debbie Phelan Infant's : 01/22/21 Insurance: [place] Pay[place] Plan Address Payor Plan Phone Number Payor Plan Fax Number Effective Dates [address] 04/26/2019 - None Entered [facility] [address] Subscriber Name Subscriber Date Member ID MARY PORRAS 1995 [id number] [employer] # [phone] Symphony breast pump [id number] Length of need: 3 months 's diagnosis: born at 33 weeks 4 days Purpose of Appliance: To Initiate and Maintain Medical Necessity: /Lactating Mother- Z39.1 Breast Engorgement relative to infant born at 33 weeks 4 days gestation Feeding problem of , unspecified P92.9 Premature Infant in ICN from mother P07.30 A standard breast pump will not provide sufficient milk for this baby. [facility] NPI #: [id number] [facility] ACCESS [place] MEDICAID MEDICAL NECESSITY FORM (MNF) ORTHOTICS, PROSTHETICS, MEDICAL SUPPLIES & EQUIPMENT All claims for supplies and equipment require a written order. Orders must be signed by a physician, physician visitor services assistant, or nurse practitioner. All home health plans of care require a physician signature. Copies of the order must be kept in the patient record by both the ordering provider and Durable Medical Equipment (DME) supplier. It is the responsibility of the ordering provider to complete or review this Medical Necessity Form (MNF) and provide adequate documentation supporting the medical need for the items listed. The ordering provider must provide this documentation either for the Medicaid beneficiary to take to the DME supplier of choice, or directly to the DME supplier. The DME bernard pplier must be enrolled in [place] Medicaid. The ordering provider must document a description of the device and/or its HCPCs code. If the ordering provider does not provide the HCPCs code, the DME supplier must provide the HCPCs code for all prior authorizations and on all claims, on this form or on other documentation submitted to the DVHA and DXC. The codes submitted to DVHA and DXC must matchthe description documented by the ordering provider. All orders must adhere to state and federal rules and regulations. [place] Medicaid Rules can be found online at [email or web address].[email or web address]/lq-rbad-hwihw. Section A: (must be completed or reviewed and signed by ordering provider) Beneficiary's name: Mary Porras Medicaid ID#: Insurance: [place] Pay[place] Plan Address Payor Plan Phone Number Payor Plan Fax Number Effective Dates [address] 04/26/2019 - None Entered [facility] [phone] Subscriber Name Subscriber Date Member ID MARY PORRAS 1995 [id number] Diagnoses: /Lactating Mother- Z39.1 Breast Engorgement relative to infant born at 33 weeks 4 days gestation Feeding problem of , unspecified P92.9 Premature in ICN from mother P07.30 A standard breast pump will not provide sufficient milk for this baby. Place of service: Is the beneficiary living in a senior living facility? Yes [ ] No[x] Is the request part of a home health plan of care? Yes [x] No[ ] 4. HCPCs Code Description Modifier Medical Necessity of Item Expected Length of Need (months) 3 months E0604, Hospital Grade Breast Pump __X_ To Initiate and Maintain . A standard breast pump will not provide adequate milk supply for patient. 1 ___ ___ ___ ___ ___ ___ ___ ___ ___ ___ ___ ___ ___ ___ ___ ___ [facility] code(s) may be provided by the supplying provider when the ordering provider has includeda clear description of the required item(s). I CERTIFY THAT THE ITEM(S) PRESCRIBED ABOVE IS(ARE) A MEDICALLY NECESSARY PART OF THE COURSE OF TREATMENT AND NOT FOR CONVENIENCE, COMFORT, OR PRECAUTIONARY PURPOSES 5. Ordering provider's name & address: Please see ordering physician signature below - [facility], [address] [place] [address], [place] [address] 6. Ordering provider's signature: Pl ease see order signature below. Date signed: Please see signedorder date 7. Ordering provider's Medicaid provider #: [id number] Phone#: [phone] See back of form for DME information and instructions --- Section B FOR DURABLE MEDICAL EQUIPMENT AND SUPPLIES (completed by the DME supplier) 8. Date supplies/original equipment first dispensed: ____/____/ 9. Name of DME employee completing above information: 10.Signature of DME employee: Phone#: 11. Medicaid DME provider #: Claims: All DME requires an MNF to be submitted with the claim, with the exception of certain itemsthat are identified in the Provider Manual, available at: [email or web address]. For exceptions, an MNF must be kept on file by the DME supplier. Prior Authorization: The DME supplier must include a copy of an MNF with every Prior Authorization request. Fax the MNF and any other supporting documents to the [facility] at . Use of this [facility] Medical Necessity Form is recommended for all prior authorization requests to ensure timely processing. Medicaid may request a copy of the medical record upon audit. *INSTRUCTIONS FOR SECTIONS A & B* Section A must be completed or reviewed, signed, and dated by the ordering physician/physician visitor services assistant/nurse practitioner. Section B must be completed by the DME supplier when equipment and/or supplies are ordered. Beneficiary's first & last name, and Medicaid ID number. List all relevant diagnoses, including status diagnoses such as colostomy, tracheostomy. If this isan initial order or there have been significant clinical changes, attach documentation reflecting the provider's treatment plan. All DME ordered within a home health plan of care require a physician signature. The place of service in which the item will be used. If it is to be used in a facility, document the facility name and address. A place of service code may be used. List for each item being ordered: HCPCS code (optional for ordering provider, but then must appear on other documentation submitted to [facility] for [place] and to [facility] for billing), medical necessity rationale, expected length of need (will be interpreted as months unless stated otherwise), and the number ofitems needed (for example: 2 bottles of sterile saline per month). NOTE: If the quantity ordered ismore than the number allowed (based on customary usage and as listed in the [facility] DME Restriction list, available at: [email or web address].[place].[facility]/for-providers/yadjhfho-zwkknflj-lshfhtbftj), an explanation from the physician is required. The ordering provider's name and address. The ordering provider's signature must be that of the ordering provider and attests to the validityof the information given. The date of this signature is also required. Medicaid provider number and phone number. To be completed by the DME supplier: the date that the base device was first provided. If there is no base device (for example, incontinence products), document the date the supply was first provided. The name of the DME employee completing the form. DME employee's signature and phone number. DME Medicaid provider number. 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 Given information about [facility]. Patient would like VNA services while at [facility]. VNA orders updated. Patient given VNA agency choice. VNA orders pended to: [facility] and [place] PHONE: [phone] FAX: [phone] VNA has confirmed that they can accept referral. Previous VNA orders had been pended to: [facility]. PHONE: [phone] FAX: [phone] This agency has been contacted and informed that patient will be discharging to [facility] and that their services are not needed at this time. Patient is not sure if she will be discharging home with her PICC. Home PICC Line/flush orders have been pended to: [place], [place] or Weekend CM to follow up with OB team and contact [place] if patient does need to go home with the PICC. If she does not need PICC then orders for PICC need to be deleted. Arlene Long RN Case Manager Theresa Morelos [phone] Pager [phone] * Grace Desai MD - 01/24/2021 6:41 AM EST Delivery Note Patient ID: Mary Porras is a 25 y.o. POD #2 after Repeat Delivery with Bilateral salpingectomy at 33w4d , delivered due to worsening status of her known non-ischemic dilated cardiomyopathy. Delivery uncomplicated. Transferred back to from [facility] on POD#1. S: Mary is feeling well this AM. Pain: well controlled with oral medications (Tylenol, Toradol and oxycodone) Diet: tolerating regular diet without n/v Ambulating: yes Voiding: christianson catheter removed yesterday Bowel function: passing flatus Lochia: minimal O: Last value Range last 24 hrs Temperature Temp: 36.8 ??C (98.2 ??F) Temp: [36.7 ??C (98.1 ??F)-37 ??C (98.6 ??F)] Heart Rate Heart Rate: 84 Heart Rate: [76-101] Blood Pressure BP: 118/76 BP: (99-121)/(61-79) Respiratory Rate Resp: 22 Resp: [13-22] SpO2 SpO2: 100 % SpO2: [96 %-100 %] Intake/Output Summary (Last 24 hours) at 01/24/2021 0248 Last data filed at 01/24/2021 0000 Gross per 24 hour Intake 1424.6 ml Output 3730 ml Net -2305.4 ml Exam: Gen: NAD Heart: regular rate and rhythm, no murmurs Lungs: clear to auscultation bilaterally Abdomen: soft, NT/ND, no rebound or guarding, fundus firm 4cm below umbilicus Incision/Dressing: clean/dry/intact, well approximated with Dermabond over subcuticular closure, noerythema/exudate. Lidocaine patches in place Extremities: nontender, no edema. Labs: Recent Labs 01/23/21 0320 WBC 16.1* HGB 10.4* HCT 31.8* PLATELET 195 CREATININE 0.47* Assessment: Mary Porras is a 25 y.o. s/p CS, doing well this morning. Plan: General Care ?? Pt meeting appropriate post op milestones. Continue routine post op care. ?? Hgb 10.4 s/p EBL 500mL and stable today. Pt asymptomatic for anemia. Continue to monitor for signs or symptoms of worsening anemia. ?? VTE prophylaxis: SCDs, heparin 5000u BID ?? Immunization needs: COVID-19 ?? - plans to ?? Contraception plan: bilateral salpingectomy HRrEF: ?? restarted on home metoprolol tartrate 12.5 q6h ?? per cardiology team will likely start an ACEi as an outpatient ?? Cardiology recommended only a short course of NSAIDs, s/p Toradol for pain control postoperatively yesterday, but continues on only with Tylenol and oxycodone to avoid stress on the kidneys. Will give Toradol x 5 doses and then discontinue NSAIDs. Creatinine normal.. ?? Will watch closely for fluid shifts and signs/symptoms of worsening heart failure. Important to keep her hemodynamically stable with good rate control. History of depression ?? Started sertraline at 25mg daily on 01/23 for 1week then up-titrate to 50 mg ?? BIT team consult placed Transferred back to on POD#1 due to stable condition, doing well. Cardiology and anesthesia continue to be involved in her care. Anticipated discharge pending clinical course and cardiology recommendation. This patient was discussed on rounds. Inge Benavides MD , PGY-3 Obstetrics and Gynecology 01/24/2021 have seen and examined the patient, providing smith components as outlined below. I have reviewed the resident???s above note; my evaluation of the patient is below: POD#2 RCS cardiomyopathy with declining LVEF. Pain controlled. Lochia light. Ambulating. Toleratingdiet. Voiding. Denies CP, SOB, palp, CAMPUZANO, PND, orthopnea, edema. AFVSS Lungs CTA CV RRR Abdomen soft, NT Uterus NT Incision CDI Ext NT I/R POD#2 RCS salpingectomy Cardiomyopathy with reduced LVEF. Cardiology f/u. On metoprolol. Check labs. Will need f/u echocardiogram No clinical evidence of CHF at present. Heparin VTE prophylaxis Mild anemia GRACE DESAI MD * Grace Desai MD - 01/23/2021 8:58 AM EST Delivery Note Patient ID: Mary Porras is a 25 y.o. POD #1 after Repeat Delivery with Bilateral salpingectomy at 33w5d , delivered due to worsening status of her known non-ischemic dilated cardiomyopathy. Delivery uncomplicated. S: Mary is feeling well this AM. Pain: well controlled with oral medications (Tylenol and oxycodone) Diet: tolerating regular diet without n/v Ambulating: not yet Voiding: christianson catheter still in place Bowel function: passing flatus Lochia: minimal She is still in the Cardiovascular ICU. Epinephrine gtt was weaned this morning at 0430. Her epidural is still in place and running at a low rate with anesthesia rounding. O: Last value Range last 24 hrs Temperature Temp: 36.7 ??C (98.1 ??F) Temp: [36.6 ??C (97.8 ??F)-36.9 ??C (98.4 ??F)] Heart Rate Heart Rate: 81 Heart Rate: [71-110] Blood Pressure BP: 99/65 BP: (99-111)/(57-65) Respiratory Rate Resp: 13 Resp: [10-19] SpO2 SpO2: 97 % SpO2: [94 %-99 %] Intake/Output Summary (Last 24 hours) at 01/23/2021 0859 Last data filed at 01/23/2021 0800 Gross per 24 hour Intake 2061.66 ml Output 5650 ml Net -3588.34 ml Exam: Gen: NAD Chest: nl respiratory effort Abdomen: soft, NT/ND, no rebound or guarding, fundus firm 4cm below umbilicus Incision/Dressing: clean/dry/intact, well approximated with Dermabond over subcuticular closure, noerythema/exudate Extremities: nontender, no edema, SCDs in place. Labs: Recent Labs 01/23/21 0320 WBC 16.1* HGB 10.4* HCT 31.8* PLATELET 195 CREATININE 0.47* Assessment: Mary Porras is a 25 y.o. s/p CS, doing well this morning. Plan: General Care ?? Pt meeting appropriate post op milestones. Continue routine post op care. ?? Hgb 10.4 s/p EBL 500mL. Pt asymptomatic for anemia. Continue to monitor for signs or symptoms ofworsening anemia. ?? VTE prophylaxis: SCDs, heparin 5000u BID ?? Immunization needs: COVID-19 ?? - plans to ?? Contraception plan: bilateral salpingectomy HRrEF: ?? restarted on home metoprolol succinate 25 mg daily ?? Per cardiology team will likely start an ACEi as an outpatient ?? Cardiology recommended only a short course of NSAIDs, so will give several doses of Toradol for pain control postoperatively today, but then continue only with Tylenol and oxycodone to avoid stress on the kidneys. Creatinine was normal today. ?? Will watch closely for fluid shifts and signs/symptoms of worsening heart failure. Important to keep her hemodynamically stable with good rate control. History of depression ?? Discussed restarting sertraline. Previously on 50 mg daily, we will start at 25mg daily x1 week then up-titrate to 50 mg ?? BIT team consult placed Anticipate transfer back to on POD#1 due to stable condition. Cardiology and anesthesia will continue to be involved in her care. This patient was discussed on rounds. Inge Benavides MD, PGY-3 01/23/2021 8:59 AM POD#1 RCS BTL cardiomyopathy with declining LVEF. Pain controlled. Lochia light. Not ambulatory yet, Tolerating diet. Christianson in place. Denies CP, SOB, palp, CAMPUZANO, PND, orthopnea, edema. AFVSS Lungs CTA CV RRR Abdomen soft, NT Uterus NT Incision CDI Ext NT I/R POD#1 RCS salpingectomy Cardiomyopathy with reduced LVEF. Cardiology f/u. On metoprolol. Check labs. Will need f/u echocardiogram. Possible transfer out of CCU to later today No clinical evidence of CHF at present. Heparin VTE prophylaxis Mild anemia GRACE DESAI MD * Seth Rush MD - 01/23/2021 6:40 AM EST Images from the original note were not included. Cardiology ICU Progress Note Patient info: Name: Mary Porras : 1995 PCP: GABRIELLA Mayer PCP phone number: [phone] Date of Admission: 01/16/2021 ( Hospital Day 7 days ) Attending:Malissa Borrero MD ID: Mary Porras is a 25 y.o. female with a past medical history of with peripartum nonischemic cardiomyopathy (last TTE 01/14 w/ EF of 35%) with a previous high-risk complicated by peripartum cardiomyopathy and presenting at 33w of her second now s/p caesarian section with bilateral salpingectomy who was admitted to the [facility] for monitoring in the post-opsetting. 24 Hour Events/Subjective: Yesterday: Uncomplicated . Admitted to [facility] for post op monitoring. -- Overnight: Maintained on 1mg epi for 6 hours followed by 0.5mg. Did well and epi was turned off at 0430. A-line removed. -- This AM: Denies CP, SOB, lightheadedness this morning. Endorses lower abdominal pain at her incision. Feet are still numb due to epidural. -- Vasoactive & Sedating Medications: Infusions: Continuous Infusions: ??? ROpivacaine 2 mL/hr (01/22/211845) ??? EPINEPHrine Stopped (01/23/21 8616) Ventilator Settings: Mode: , SET RR: TV: PEEP: FiO2: VARIABLES PATIENT RR: PIP: Pplateau: SpO2: OUTPUT Resp: 14 SpO2: 99 % ABG (Arterial Blood Gas) No results for input(s): PHART, FXP6MNV, PO2ART, YQC4YXK, LACTATEVEN, UJE0GIT, PFRATIOART2 in the last 168 hours. VBG (Venous Blood Gas) No results for input(s): PHVEN, GQN7JND, PO2VEN, RHK5ZIJ, LACTATEVEN in the last 168 hours. Mixed Venous Sat No results for input(s): H7SADK3 in the last 168 hours. Objective: Vitals Last value Range last 24 hrs Temperature Temp: 36.6 ??C (97.8 ??F) Temp: [36.6 ??C (97.8 ??F)-36.9 ??C (98.4 ??F)] Heart Rate Heart Rate: 78 Heart Rate: [71-110] Blood Pressure BP: 111/57 BP: (111)/(57) Art Line BP BP (Arterial Line): 119/82 BP (Arterial Line): (102-136)/(51-82) MAP (NBP): [66 mmHg] Respiratory Rate Resp: 14 Resp: [10-19] SpO2 SpO2: 99 % SpO2: [94 %-99 %] Oxygen Delivery Oxygen Therapy O2 Device: None (Room air) Intake/Output Summary (Last 24 hours) at 01/23/2021 0640 Last data filed at 01/23/2021 0600 Gross per 24 hour Intake 1811.66 ml Output 4550 ml Net -2738.34 ml Patient Vitals for the past 168 hrs: Weight 01/23/21 0600 94.9 kg (209 lb 3.5 oz) 01/22/21 0624 96.1 kg (211 lb 13.8 oz) 01/21/21 0614 96.8 kg (213 lb 6.5 oz) 01/20/21 0807 96.8 kg (213 lb 6.5 oz) 01/19/21 0833 98 kg (216 lb) 01/18/21 0822 97 kg (213 lb 14.4 oz) 01/16/21 1832 97.7 kg (215 lb 4.8 oz) 01/16/21 1527 95.7 kg (211 lb) Admit wt: 95.71 kg Physical Exam: Gen: in bed in NAD, alert and conversant HEENT: anicteric, EOMI intact CV: RRR, no murmurs/rubs/gallops Resp: CTAB, no crackles/wheezes/ronchi, normal work of breathing Abd: active bowel sounds Ext: no pedal edema, feet WWP, SCDs in place Neuro: no focal deficits noted, CN II-XII grossly intact, moves all extremities spontaneously Psych: cooperative Skin: no rashes, lesions, or ulcerations noted Lines/Drains/Airways Lines: PICC Line - Double Lumen 01/17/21 1408 basilic vein (medial side of arm), right 5 Fr (Active) External Catheter Length (cm) 0 01/18/21 1742 Mid-Upper Arm Circumference (cm) 29 01/17/21 1409 Indication/Daily Review of Necessity Inadequate peripheral IV access (see comment);Medications known to cause phlebitis (vasopressors, concentrated electrolytes, TPN, chemotherapy) 01/22/211999 Site Preparation/Maintenance dressing: dry and intact;dressing: CHG gel 01/23/21599 Dressing change due 01/24/21 01/19/211413 Needleless Connector change due 01/20/21 01/19/211413 Securement catheter stabilization device, secured with;sutures, secured with 01/23/21599 Distal (Purple) Patency/Maintenance alcohol impregnated cap applied 01/23/21599 Proximal (Red) Patency/Maintenance alcohol impregnated cap applied 01/23/21599 Phlebitis 0-->no symptoms 01/23/21599 Infiltration 0-->no symptoms 01/23/21599 Site Signs/Symptoms no redness;no swelling;no pain;no palpable cord;no streak formation;no warmth;no drainage 01/23/21599 Peripheral IV Line - Single Lumen 01/20/21 0629 cephalic vein (lateral side of arm), left 18 gauge;1 in length;3/4 in length (Active) Indication/Daily Review of Necessity medication therapy intermittent 01/22/211999 Site Preparation/Maintenance dressing: dry and intact 01/23/21599 Securement catheter stabilization device, secured with;sterile tape strips, secured with 01/23/21599 Patency/Maintenance alcohol impregnated cap applied 01/23/21599 Phlebitis 0-->no symptoms 01/23/21599 Infiltration 0-->no symptoms 01/23/21599 Site Signs/Symptoms no redness;no swelling;no warmth;no pain;no palpable cord;no streak formation;no drainage 01/23/21599 Epidural Catheter 01/22/21 1400 thoracic (Active) Infusion Method continuous 01/22/211999 Dressing dressing dry and intact 01/22/211999 Securement catheter securement device utilized;secured with tape 01/22/211999 Safety Interventions catheter connections intact;closed system maintained;excess tubing coiled and taped securely 01/22/211999 Insertion Site clean and dry 01/22/211999 Daily Review of Necessity completed 01/22/211999 Equal: Motor BLE no deficit 01/22/211999 Unequal: Motor LLE no deficit 01/22/211999 Unequal: Motor RLE no deficit 01/22/211999 Bilateral Side Sensory Level (Dermatome) no deficit 01/22/211999 Left Side Sensory Level (Dermatome) other (see comments) 01/22/211999 Right Side Sensory Level (Dermatome) other (see comments) 01/22/211999 Left Level of Sensation other (see comments) 01/22/211999 Right Level of Sensation other (see comments) 01/22/211999 Method of Testing light touch 01/22/211999 Arterial Line 01/22/21 1342 radial artery, right 20 gauge (Active) Daily Review Of Necessity completed 01/22/211999 Dressing dressing dry and intact 01/23/21599 Arterial Catheter Securement secured with sterile tape strips 01/23/21599 Lumen Patency/Care flushed without difficulty;blood return present 01/22/211999 Waveform normal 01/23/21599 Phlebitis 0-->no symptoms 01/23/21599 Infiltration 0-->no symptoms 01/23/21599 Site Signs/Symptoms no redness;no swelling;no warmth;no pain;no palpable cord;no streak formation;no drainage 01/23/21599 Pressure Catheter Interventions line leveled/zeroed;system flushed 01/22/21 1630 Labs: Recent Labs 01/23/2131901/16/21 1648 WBC 16.1* 13.3* HGB 10.4* 11.6* HCT 31.8* 36.8 PLATELET 195 300 MCV 86.6 87.6 Recent Labs 01/23/2131901/16/21 1648 NA 136 137 CL 105 102 CO2 22 24 K 4.2 3.7 CALCIUM 8.8 9.4 BUN 10 7* CREATININE 0.47* 0.57* LFTs Recent Labs 01/16/21 1648 PROT 7.4 ALBUMIN 3.9 AST 15 ALT 10 ALKPHOS 114* BILITOT <0.2* Coags No results for input(s): INR, PT, PTT, FIBRINOGEN, DDIMER in the last 168 hours. Invalid input(s): THROMBIN TIME Cardiac Enzymes Recent Labs 01/17/21201801/16/211647 TROPONINT <0.01 <0.01 PROBNP 70 77 Endocrine No results for input(s): TSH, CORTISOL in the last 7068 hours. Invalid input(s): [id number] No results for input(s): POCGLU in the last 168 hours. Heme No results for input(s): LDH, HAPTOGLOBIN, URICACID in the last 168 hours. ABG (Arterial Blood Gas) No results for input(s): PHART, EPM8UQB, PO2ART, ICB1FUU, LACTATEVEN, DRN6OND, PFRATIOART2 in the last 168 hours. VBG (Venous Blood Gas) No results for input(s): PHVEN, GUP1HJG, PO2VEN, DHO6TJL, LACTATEVEN in the last 168 hours. Mixed Venous Sat No results for input(s): B8NNCE5 in the last 168 hours. Microbiology: Microbiology Results (Last 30 days) Procedure Component Value Units Date/Time Group B Strep Culture Screen [[id number]] (Abnormal) Collected: 01/16/211656 Lab Status: Final result Specimen: Vaginal/Rectal Updated: 01/17/21 1443 Group B Streptococcus Culture Beta Hemolytic Streptococci, Group B isolated COVID-19 PCR [[id number]] Collected: 01/16/211656 Lab Status: Final result Specimen: Nasopharyngeal Swab Updated: 01/16/212057 SARS-CoV-2 RNA PCR Not Detected Comment: This result should be interpreted in combination with the clinical observations, patient history and epidemiological information. For testing of asymptomatic individuals, assay performance characteristics and clinical utility have not been evaluated. Testing for SARS-CoV-2 (Severe acute respiratory syndrome coronavirus 2, formerly known as 2019 novel coronavirus or 2019-nCoV) to aid in the diagnosis of COVID-19 is performed using the Simplexa COVID-19 Direct Assay by [employer] as authorized by the FDA issued Emergency Use Authorization (EUA). This assay is intended for In-vitro Diagnostic (IVD) use with nasopharyngeal swabs collected from individuals meeting the CDC criteria for testing. The assay is performed based on the instructions for use and additional guidance provided by the FDA. Testing is performed in the Microbiology Laboratory within the Department of Pathology and Laboratory Medicine at [facility], certified under the Clinical Laboratory Improvement Amendments of 1988 (CLIA), 42 U.S.C. section 263a, to perform high complexity tests. Assay performance has been verified according to clinical laboratory regulatory requirements. Test results are provided above. A result of Not Detected indicates that the viral RNA target is not present but does not preclude SARS-CoV-2 infection. False negative results may occur if a specimen is improperly collected, transported or handled; if amplification inhibitors are present; or if inadequate numbers of viral particles are present in the specimen. A result of Detected suggests a current or recent infection and the patient is presumed to be infected. Positive and negative predictive values for this test are highly dependent on disease prevalence. A result of Invalid indicates the inability to conclusively determine the presence or absence of SARS-CoV-2 RNA in the sample which can be due to a variety of factors. Recollection is recommended in the case of an invalid result. CDC COVID-19 criteria for testing on human specimens and clinical management guidance information are available at the CDC Coronavirus Disease 2019 (COVID-19) webpage under Information for Healthcare Professionals (https://www.cdc.gov/coronavirus/2019-ncov/hcp/index.html). Additional information about this and other EUA tests can be found in provider and patient fact sheets at the following FDA website: https://www.fda.gov/medical-devices/nuycmlgppja-soijdde-0640-nfpha-17-aukidfamw- urc-hzyiggufudfwxd-sktlwyf-devices/vonue-kmymhiryjub-soof SARS-CoV-2 Source RECORD CHANGER Swab Group B Streptococcus Screen [[id number]] Collected: 01/16/21 1657 Lab Status: Final result Specimen: Vaginal/Rectal Updated: 01/17/21 1443 Group B Strep Screen Pos Imaging: Results for orders placed or performed during the hospital encounter of 01/16/21 US OB Follow Up (Exam End: 01/17/2021 11:52 AM) Impression 3rd Trimester Summary Single intrauterine with a gestational age of 32w 6d based on Early Ultrasound (07/16/20) Composite age based on the current ultrasound alone is 33w 4d. Estimated weight corresponds to the 75th percentile for 32w 6d. Current growth parameters are consistent with prior dating indicating normal growth. Amniotic fluid volume is normal Anatomical survey is limited due to the late gestational age. Thank you for letting us participate in the care of this patient. If you are a health care provider and have any questions regarding this report, please contact the number above. For patients who have questions, please contact the health career development specialist that requested your imaging first. Rustam Hoffman, Staff Physician Electronically Signed Final Report 01/17/2021 01:32 pm XR PICC Placement Over 5 Years with Imaging Guidance (IV Team) (Exam End: 01/17/2021 1:54 PM) Impression right PICC, with the catheter tip projected at the region of SVC/RA. Thank you for letting us participate in the care of this patient. If you are a health care provider and have any questions regarding this report, please contact the number below. For patients who have questions please contact the health career development specialist that requested your imaging first. Medications Scheduled Meds: ??? Neuraxial/Epidural shift total and Settings verification Epidural 2 Times Daily- Neuraxial Shift Total ??? acetaminophen 650 mg Oral Q6H MIKA ??? docusate sodium 100 mg Oral BID ??? heparin (porcine) 5,000 Units Subcutaneous 2 times per day ??? melatonin 12 mg Oral Nightly ??? sodium chloride 0.9 % (flush) 5 mL Intravenous BID Continuous Infusions: ??? ROpivacaine 2 mL/hr (01/22/21 5532) ??? EPINEPHrine Stopped (01/23/21 3173) PRN Meds:.miSOPROStol, oxyCODONE OR oxyCODONE, polyethylene glycoL (MIRALAX) oral powder, simethicone, acetaminophen, lidocaine, lidocaine (pf), sodium chloride 0.9 % (flush), lidocaine, ondansetron, calcium carbonate Assessment & Plan: Mary Porras is a 25 y.o. female with a past medical history of with peripartum nonischemic cardiomyopathy (last TTE 01/14 w/ EF of 35%) with a previous high-risk and now presenting at 33w due to worsening shortness of breath now s/p caesarian section with bilateral s alpingectomy who was admitted to the [facility] for monitoring in the post-op setting. The exact etiology of Mary's heart failure is not entirely understood. It seems likely that she has an underlying cardiac weakness that is unmasked during , a high strain time on her heart. She did very well overnight. She tolerated the 6 hours of planned 1mg epi well and it was able jordan discontinued, as planned, at 0430. Her arterial line was removed. Will restart her metoprolol tartrate 12.5mg q6h today but will hold off on digoxin going forward until reassessed by outpatient soccer referee Dr. Márquez. Will ideally be on an ACEi/ARB as an outpatient. She diuresed extensively overnight with the epinephrine but no other diuretics and appears euvolemic on exam this morning. Pain control was managed with her epidural, acetaminophen, and oxycodone overnight. Anesthesiology team added Toradol this morning; okay for a short course of Toradol but recommend avoiding other or longer term NSAIDS in the setting of HFrEF to avoid renal injury. Started on Zoloft daily by OB team due to history of depression. Plan for transition to birthing pavilion later this afternoonif she continues to do so well throughout this morning. Cardiology consult will continue to follow while she is inpatient. ?? PLAN: ?? Neuro: #Pain Control -Acetaminophen and oxycodone available prn -recommend avoiding alf NSAIDs in the setting of HFrEF -acceptable to receive short term Toradol post op ?? Respiratory: - No acute issue, satting well on RA ?? Cardiac: #HFrEF (LV EF 35% 01/14 down from 54% on 12/10) #Nonischemic cardiomyopathy likely secondary to viral infection in infancy - Medications: - Metoprolol tartrate 12.5 q6h - ideally on ACEi or ARB going forward - no need for digoxin going forward but outpatient cardiology will reassess - tolerated epinephrine well overnight - f/u cardiac function as an outpatient - Strict I/Os - Daily weights - troponin <0.01 - pro-BNP 70 ?? : - s/p 01/22 - OB to follow for post- assessment ?? Renal: - No acute issue at this time. ?? GI: - No acute issue at this time. - bowel regimen in place ?? Heme/Onc: - No acute issue at this time. ?? ID: - No acute issue at this time. Psych: -Zoloft daily for history of depression #Routine Diet: Regular diet DVT Prophylaxis: heparin subQ GI Prophylaxis: n/a Code Status: Attempt Cardiopulmonary Resuscitation - Inpatient Dispo: Pending clinical course Seth Rush MD Internal Medicine, PGY-1 Cardiology, M1-S1, #[id number] 01/23/21 6:40 AM Associated attestation - Malissa Borrero MD - 01/23/2021 1:15 PM EST CARDIOLOGY ATTENDING NOTE Patient: Mary Porras Date of Service: 01/23/2021 Date of Admission: 01/16/2021 Length of Stay Hospital Day 7 days Mary did well overnight and was titrated off epinephrine without significant issue. She diuresedwell and was net negative >3L. Blood pressure has been soft in the setting of epidural, but stable. Epidural turned off on rounds this morning by Anesthesia team. She feels tired and sore, but well. Exam benign with good perfusion and no evidence of volume overload. Would add low dose beta sunitha this morning, then ACEi as tolerated by blood pressure. I'm okay with her moving back to the BP later today if she remains stable, in order to facilitate bonding with her baby and , with cardiology to continuing to follow for guidance on medical management and initiation of therapies. Limited course of toradol for post- pain also okay from my perspective. Rounds were multidisciplinary this morning including myself, cardiac anesthesia, OB anesthesia and OB. Attending Attestation Please see Dr. Rush's note for details of the patient history of presentation and data. I have discussed, reviewed and agree with the documented History, Physical findings, Assessment and Plan of care. I have examined the patient myself and personally reviewed all studies. In addition, I certify thatI am a [facility] credentialed attending provider with admitting privileges and that the patient meets or has met medical necessity to require an inpatient IPI level of care meeting a minimum of two midnights or is on the CMS inpatient only procedure list (status C) due to: monitoring of fluid status given an inability to regulate fluid balance and the need for administration or restriction of fluid Malissa Borrero MD Cardiovascular Medicine Personal Pager [phone] 01/23/2021 1:03 PM * Makayla Inge Jonah - 01/22/2021 7:15 AM EST Obstetrical Antepartum Progress Note Patient ID: Mary Porras is a 25 y.o. at 33w4d by 8w3d US with a PMH significant for nonischemic cardiomyopathy since childhood with peripartum cardiomyopathy in prior who presented for interval worsening in systolic function with exertional dyspnea. HD#7 24 Hour Events --none Subjective: Mary is feeling well today. She reports no vaginal bleeding, loss of fluid or contractions. Feeling good movement. No chest pain or shortness of breath. She has had nothing to eat or drink since midnight. She reiterates her desire for permanent sterilization at the time of section today. Review of Systems: Negative except as detailed above. Objective: Physical Exam Patient Vitals for the past 24 hrs: BP Temp Temp src Pulse Resp SpO2 Weight 01/22/21 0627 -- -- -- -- -- 99 % -- 01/22/21 0624 -- -- -- -- -- -- 96.1 kg (211 lb 13.8 oz) 01/22/21 0623 97/60 36.5 ??C (97.7 ??F) -- 91 -- -- -- 01/22/21 013 111/66 -- -- 89 -- -- -- 01/21/212137 111/63 -- -- 87 16 98 % -- 01/21/212025 -- 36.6 ??C (97.9 ??F) Oral -- -- -- -- 01/21/21 172 -- -- -- -- -- 98 % -- 01/21/21 172 113/66 36.7 ??C (98.1 ??F) Oral 95 16 -- -- 01/21/21 1446 98/59 36.5 ??C (97.7 ??F) Oral 98 -- -- -- 01/21/21 1445 -- -- -- -- -- 99 % -- 01/21/21 1042 103/65 36.8 ??C (98.2 ??F) Oral (!) 101 -- -- -- 01/21/21 1038 -- -- -- -- -- 98 % -- 01/21/21 1033 -- -- -- -- -- 98 % -- 01/21/21 1029 -- -- -- -- -- 97 % -- 01/21/21 1025 -- -- -- -- -- 98 % -- 01/21/21 1021 -- -- -- -- -- 98 % -- 01/21/21 0747 -- -- -- -- -- 97 % -- 01/21/21 0742 98/65 36.6 ??C (97.9 ??F) Oral 87 16 -- -- Gen: appears well, NAD, resting comfortably in bed CV: RRR, no murmurs/rubs/gallops Pulm: CTAB, no wheezes/crackles/rales Uterus: gravid, nontender Heart Rate Interpretation: Please see separate daily NST note. Most Recent Ultrasound Date: 01/17/21 GA: 33w4d FHR: 134 bpm Presentation: cephalic Placenta: anterior Amniotic fluid: within normal limits EFW: 2135g, 1ws27za, 75% Normal limited anatomy Labs Lab Results Component Value Date WBC 13.3 (H) 01/16/2021 HGB 11.6 (L) 01/16/2021 HCT 36.8 01/16/2021 MCV 87.6 01/16/2021 PLATELET 300 01/16/2021 Lab Results Component Value Date NA 137 01/16/2021 K 3.7 01/16/2021 CL 102 01/16/2021 CO2 24 01/16/2021 BUN 7 (L) 01/16/2021 CREATININE 0.57 (L) 01/16/2021 GLUCOSE 76 01/16/2021 GLUCFASTING 81 10/10/2013 CALCIUM 9.4 01/16/2021 ESTGFR 130 01/16/2021 Lab Results Component Value Date ALT 10 01/16/2021 AST 15 01/16/2021 ALKPHOS 114 (H) 01/16/2021 BILITOT <0.2 (L) 01/16/2021 BILIDIR <0.1 09/19/2013 ALBUMIN 3.9 01/16/2021 PROT 7.4 01/16/2021 Pre-eclampsia Labs No results for input(s): WBC, HGB, HCT, PLATELET, AST, ALT, CREATININE, UPROTCREAT in the last 72 hours. Labs ABO/RH B pos, Ab negative Hgb/Hct 11.6/36.8 Platelets 300K Varicella Non-immune 08/16/20 Rubella Immune 08/16/20 Syphillis Not found GC/Chlam Neg/neg Urine Culture Neg HepBsAg Negative 08/16/20 HepC Negative 08/16/20 HIV Negative 08/16/20 1 hr GTT 106 3 hr GTT NA GBS pending Pap NILM 08/16/20 Assessment & Plan: Mary is a 25 y.o. at 33w4d presenting for optimization of cardiac status in the setting of known nonischemic cardiomyopathy in the setting of and prior delivery. Plan for delivery by section with bilateral salpingectomy today followed by recovery in the CVCC. 1. Non-ischemic dilated cardiomyopathy, NYHA Class II ?? 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 Last TTE 01/14/21 showing severely dilated LV EF 35% (reduced from 54% on 12/10/20), diffuse hypokinesis except for basal anterolateral &inferolateral segments ?? Delivery indications: NRFHT, maternal deterioration, progressive labor ?? Delivery plan: repeat section and bilateral salpingectomy today ?? Tocolysis: not indicated ?? Continuous telemetry monitoring, low threshold to transfer to cardiovascular critical care unit ?? Avoid tachycardia, bradycardia, rapid fluid boluses. Careful fluid loading and consider Greenwood catheter to measure PAD pressure ?? Double lumen PICC line in place (R) in anticipation of possible need for vasoactive medication administration ?? Avoid rapid oxytocin bolus, terbutaline, nitrous oxide, methergine, ?? Per cardiology, consider Lasix for progressive SOB or hypoxia in coordination with cardiology team ?? Mild CP on the evening of 01/17/21, resolved. Normal ECG, troponin and BNP at time of pain 2. Status ?? NST: daily ?? presentation: cephalic as of 01/17/21 ?? Last Growth US: morphology. Growth ultrasound ordered. ?? Steroid status: First dose 01/16/21 at 1708 ?? Magnesium for neuroprotection: not applicable ?? Consults obtained: Neonatology, Anesthesiology, Cardiology 3. Other Maternal Concerns ?? Anemia: hgb 11.6 on admission ?? Marijuana use 4. Care ?? labs reviewed and within normal limits ?? GBS status: GBS positive ?? T&S performed on admission, repeated today, Rh positive ?? TDaP: Given 01/02/21 ?? Influenza Vaccine: given 01/02/21 ?? COVID-19 vaccine: has not received. ?? Continue vitamin ?? Contraception Plan: Permanent sterilization. Consent form signed 12/10/2020 5. General Antepartum Care ?? hemorrhage risk: medium ?? Consents obtained: Section with bilateral salpingectomy for sterilization, Opioids ?? Prophylaxis: SCDs in bed, Heparin held since 01/20 at 5pm ?? Anticipated DC date: pending clinical course Patient seen and discussed with Maternal Medicine attending. Inge Benavides MD, PGY-3 01/22/2021 7:15 AM * Lilly Greenfield RN - 01/21/2021 6:02 PM EST OUTCOME EVALUATION NOTE: OUTCOME SUMMARY: Patient doing well, VSS, no loss of fluid, contractions, chest pain or shortness of breath. Telemetry continued today for cardiomyopathy, rhythm consistently NSR or Sinus Tach today. A second shower and scrub was done today with anticipation of but surgery got bumped to tomorrow around 1300. PLAN MOVING FORWARD: NPO after midnight again. Continue to monitor. section tomorrow. INDIVIDUALIZED FALL PREVENTION INTERVENTIONS: Surveillance [continuous indirect monitoring]: Rounding, call núñez within reach. Lilly R Greenfield, RN * Echo Tirado M - 01/21/2021 12:40 PM EST Obstetrical Antepartum Progress Note Patient ID: Mary Porras is a 25 y.o. 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 HD#6 24 Hour Events --none Subjective: Mary is feeling well today. She reports no vaginal bleeding, loss of fluid or contractions. Feeling good movement. No chest pain or shortness of breath. She has had nothing to eat or drink since midnight. She reiterates her desire for permanent sterilization at the time of section today. Review of Systems: Negative except as detailed above. Objective: Physical Exam Patient Vitals for the past 24 hrs: BP Temp Temp src Pulse Resp SpO2 Height Weight 01/20/211999 131/78 36.8 ??C (98.2 ??F) Oral 93 17 -- -- -- 01/20/211958 -- -- -- -- -- 99 % -- -- 01/20/211713 117/69 -- -- 86 -- -- -- -- 01/20/211710 117/69 -- -- 80 -- -- -- -- 01/20/21 1601 -- -- -- -- -- 96 % -- -- 01/20/21 1600 103/62 36.8 ??C (98.2 ??F) Oral 88 16 -- -- -- 01/20/21 1244 -- -- -- -- -- 98 % -- -- 01/20/21 1239 -- -- -- -- -- 98 % -- -- 01/20/21 1234 -- -- -- -- -- 98 % -- -- 01/20/21 1229 -- -- -- -- -- 98 % -- -- 01/20/21 1225 -- -- -- -- -- 98 % -- -- 01/20/21 1221 -- -- -- -- -- 98 % -- -- 01/20/21 1215 113/64 -- -- 90 15 99 % -- -- 01/20/21 0807 -- -- -- -- -- -- 177.8 cm (5' 10) 96.8 kg (213 lb 6.5 oz) 01/20/21 0716 114/66 36.9 ??C (98.4 ??F) Oral 98 16 98 % -- -- 01/20/21 0411 99/56 37 ??C (98.6 ??F) Oral 81 16 100 % -- -- 01/20/21 0002 98/55 -- -- 80 18 -- -- -- Gen: appears well, NAD, resting comfortably in bed CV: RRR, no murmurs/rubs/gallops Pulm: CTAB, no wheezes/crackles/rales Uterus: gravid, nontender Heart Rate Interpretation: Please see separate daily NST note. Most Recent Ultrasound Date: 01/17/21 GA: 33w4d FHR: 134 bpm Presentation: cephalic Placenta: anterior Amniotic fluid: within normal limits EFW: 2135g, 3id35si, 75% Normal limited anatomy Labs Lab Results Component Value Date WBC 13.3 (H) 01/16/2021 HGB 11.6 (L) 01/16/2021 HCT 36.8 01/16/2021 MCV 87.6 01/16/2021 PLATELET 300 01/16/2021 Lab Results Component Value Date NA 137 01/16/2021 K 3.7 01/16/2021 CL 102 01/16/2021 CO2 24 01/16/2021 BUN 7 (L) 01/16/2021 CREATININE 0.57 (L) 01/16/2021 GLUCOSE 76 01/16/2021 GLUCFASTING 81 10/10/2013 CALCIUM 9.4 01/16/2021 ESTGFR 130 01/16/2021 Lab Results Component Value Date ALT 10 01/16/2021 AST 15 01/16/2021 ALKPHOS 114 (H) 01/16/2021 BILITOT <0.2 (L) 01/16/2021 BILIDIR <0.1 09/19/2013 ALBUMIN 3.9 01/16/2021 PROT 7.4 01/16/2021 Pre-eclampsia Labs No results for input(s): WBC, HGB, HCT, PLATELET, AST, ALT, CREATININE, UPROTCREAT in the last 72 hours. Labs ABO/RH B pos, Ab negative Hgb/Hct 11.6/36.8 Platelets 300K Varicella Non-immune 08/16/20 Rubella Immune 08/16/20 Syphillis Not found GC/Chlam Neg/neg Urine Culture Neg HepBsAg Negative 08/16/20 HepC Negative 08/16/20 HIV Negative 08/16/20 1 hr GTT 106 3 hr GTT NA GBS pending Pap NILM 08/16/20 Assessment & Plan: Mary is a 25 y.o. at 33w2d presenting for optimization of cardiac status in the setting of known nonischemic cardiomyopathy in the setting of and prior delivery. Plan for delivery by section with bilateral salpingectomy today followed by recovery in the CVCC. 1. Non-ischemic dilated cardiomyopathy, NYHA Class II ?? 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 Last TTE 01/14/21 showing severely dilated LV EF 35% (reduced from 54% on 12/10/20), diffuse hypokinesis except for basal anterolateral &inferolateral segments ?? Delivery indications: NRFHT, maternal deterioration, progressive labor ?? Delivery plan: repeat section and bilateral salpingectomy today ?? Tocolysis: not indicated ?? Continuous telemetry monitoring, low threshold to transfer to cardiovascular critical care unit ?? Avoid tachycardia, bradycardia, rapid fluid boluses. Careful fluid loading and consider Greenwood catheter to measure PAD pressure ?? Double lumen PICC line in place (R) in anticipation of possible need for vasoactive medication administration ?? Avoid rapid oxytocin bolus, terbutaline, nitrous oxide, methergine, ?? Per cardiology, consider Lasix for progressive SOB or hypoxia in coordination with cardiology team ?? Mild CP on the evening of 01/17/21, resolved. Normal ECG, troponin and BNP at time of pain 2. Status ?? NST: daily ?? presentation: cephalic as of 01/17/21 ?? Last Growth US: morphology. Growth ultrasound ordered. ?? Steroid status: First dose 01/16/21 at 1708 ?? Magnesium for neuroprotection: not applicable ?? Consults obtained: Neonatology, Anesthesiology, Cardiology 3. Other Maternal Concerns ?? Anemia: hgb 11.6 on admission ?? Marijuana use 4. Care ?? labs reviewed and within normal limits ?? GBS status: GBS positive ?? T&S performed on admission, Rh positive ?? TDaP: Given 01/02/21 ?? Influenza Vaccine: given 01/02/21 ?? COVID-19 vaccine: has not received. ?? Continue vitamin ?? Contraception Plan: Permanent sterilization. Consent form signed 12/10/2020 5. General Antepartum Care ?? hemorrhage risk: medium ?? Consents obtained: Section with bilateral salpingectomy for sterilization, Opioids ?? Prophylaxis: SCDs in bed, Heparin held since 01/20 at 5pm ?? Anticipated DC date: pending clinical course Patient seen and discussed with Maternal Medicine attending. Inge Benavides MD, PGY-3 01/20/2021 10:34 PM Associated attestation - Grace Desai MD - 02/07/2021 8:42 AM EST I have seen and examined the patient, providing smith components as outlined below. I have reviewed the resident???s above note; my evaluation of the patient is below: 33 2/7 weeks cardiomyopathy declining LVEF. FM felt, no LOF, no bleeding or robbin. No CP, palps, orthopnea. Has CAMPUZANO and some SOB. AFVSS NAD Lungs CTA Abdomen soft, NT Uterus NT Ext No edema I/R 33 2/7 weeks cardiomyopathy declining LVEF status reassuring S/p BMZ Cardiomyopathy on metoprolol and digoxin. Some increased CAMPUZANO and SOB. Cardiology following. Plan RCS and p Op care in CCU GRACE DESAI MD * Inge Benavides - 01/21/2021 11:00 AM EST Daily NST Note Patient ID: Mary Porras is a 25 y.o. 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 NST Fetus A 01/21/2021 HR (beats/min) 140 HR Variability moderate (amplitude range 6 to 25 bpm) HR Accelerations lasting at least 15 seconds;greater than/equal to 15 bpm HR Decelerations none Contraction Frequency (Minutes) none Nonstress Test Interpretation Reactive, >32 weeks: two 15 bpm accelerations lasting 15 seconds Overall Impression Reassuring for gestational age Comments - D/w Dr. 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 Inge Benavides MD , PGY3 01/21/2021 Associated attestation - Reuben Cuellar MD - 01/22/2021 8:25 AM EST Attending Note: I was the attending physician supervising the resident in the above care and I personally reviewed and interpreted the NST. I agree with the resident's interpretation as noted above. Reuben Cuellar MD 01/22/21 8:25 AM * Ileana Marcial MD - 01/20/2021 1:00 PM EST Daily NST Note ?? Patient ID: Mary Porras??is a 25 y.o. at 33w2d who is for antepartum and management of interval reduced systolic function with known non- ischemic dilated cardiomyopathy and LVEF 35%.?? NST Fetus A 01/20/2021 HR (beats/min) 130 HR Variability moderate (amplitude range 6 to 25 bpm) HR Accelerations present;lasting at least 15 seconds;greater than/equal to 15 bpm HR Decelerations none Contraction Frequency (Minutes) none Nonstress Test Interpretation Reactive, >32 weeks: two 15 bpm accelerations lasting 15 seconds Overall Impression Reassuring for gestational age Comments - D/w Dr. Aniket Benavides MD 01/20/2021 I personally reviewed and interpreted this NST. 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 Previous referrals had been sent to [facility] and [facility] in anticipated of patient being discharged home with PICC line. [facility] and [facility] both informed that patient has not discharged at this time and discharge needs are not yet known. Arlene Long RN Case Manager Birthing [facility] [phone] Pager [phone] * Inge Benavides - 01/20/2021 7:27 AM EST Obstetrical Antepartum Progress Note Patient ID: Mary Porras is a 25 y.o. 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 HD#5 24 Hour Events --none Subjective: Mary is feeling well today. She reports no vaginal bleeding, loss of fluid or contractions. Feeling good movement. She is having regular bowel movements and eating. No chest pain or shortness of breath. She is nervous about her surgery tomorrow. She had a peripheral IV placed this morning. Review of Systems: Negative except as detailed above. Objective: Physical Exam Patient Vitals for the past 24 hrs: BP Temp Temp src Pulse Resp SpO2 Weight 01/20/21 0716 114/66 36.9 ??C (98.4 ??F) Oral 98 16 98 % -- 01/20/21 0411 99/56 37 ??C (98.6 ??F) Oral 81 16 100 % -- 01/20/21 0002 98/55 -- -- 80 18 -- -- 01/19/212001 121/69 36.8 ??C (98.2 ??F) Oral 90 18 98 % -- 01/19/21 1704 120/73 36.4 ??C (97.5 ??F) Oral 89 18 100 % -- 01/19/21 1300 127/65 36.5 ??C (97.7 ??F) Oral 92 18 -- -- 01/19/21 1259 -- -- -- -- -- 97 % -- 01/19/21 0938 -- -- -- -- -- 98 % -- 01/19/21 0934 -- -- -- -- -- 98 % -- 01/19/21 0930 -- -- -- -- -- 98 % -- 01/19/21 0926 -- -- -- -- -- 98 % -- 01/19/21 0921 -- -- -- -- -- 98 % -- 01/19/21 0916 -- -- -- -- -- 99 % -- 01/19/21 0911 -- -- -- -- -- 99 % -- 01/19/21 0906 -- -- -- -- -- 99 % -- 01/19/21 0902 -- -- -- -- -- 98 % -- 01/19/21 0858 -- -- -- -- -- 98 % -- 01/19/21 0854 -- -- -- -- -- 99 % -- 01/19/21 0849 -- -- -- -- -- 98 % -- 01/19/21 0845 -- -- -- -- -- 98 % -- 01/19/21 0833 -- -- -- -- -- -- 98 kg (216 lb) 01/19/21 0829 119/67 36.6 ??C (97.9 ??F) Oral (!) 102 20 -- -- Gen: appears well, NAD, resting comfortably in bed CV: RRR, no murmurs/rubs/gallops Pulm: CTAB, no wheezes/crackles/rales Uterus: gravid, nontender Heart Rate Interpretation: Please see separate daily NST note. Most Recent Ultrasound Date: 01/17/21 GA: 33w4d FHR: 134 bpm Presentation: cephalic Placenta: anterior Amniotic fluid: within normal limits EFW: 2135g, [id number], 75% Normal limited anatomy Labs Lab Results Component Value Date WBC 13.3 (H) 01/16/2021 HGB 11.6 (L) 01/16/2021 HCT 36.8 01/16/2021 MCV 87.6 01/16/2021 PLATELET 300 01/16/2021 Lab Results Component Value Date NA 137 01/16/2021 K 3.7 01/16/2021 CL 102 01/16/2021 CO2 24 01/16/2021 BUN 7 (L) 01/16/2021 CREATININE 0.57 (L) 01/16/2021 GLUCOSE 76 01/16/2021 GLUCFASTING 81 10/10/2013 CALCIUM 9.4 01/16/2021 ESTGFR 130 01/16/2021 Lab Results Component Value Date ALT 10 01/16/2021 AST 15 01/16/2021 ALKPHOS 114 (H) 01/16/2021 BILITOT <0.2 (L) 01/16/2021 BILIDIR <0.1 09/19/2013 ALBUMIN 3.9 01/16/2021 PROT 7.4 01/16/2021 Pre-eclampsia Labs No results for input(s): WBC, HGB, HCT, PLATELET, AST, ALT, CREATININE, UPROTCREAT in the last 72 hours. Labs ABO/RH B pos, Ab negative Hgb/Hct 11.6/36.8 Platelets 300K Varicella Non-immune 08/16/20 Rubella Immune 08/16/20 Syphillis Not found GC/Chlam Neg/neg Urine Culture Neg HepBsAg Negative 08/16/20 HepC Negative 08/16/20 HIV Negative 08/16/20 1 hr GTT 106 3 hr GTT NA GBS pending Pap NILM 08/16/20 Assessment & Plan: Mary is a 25 y.o. at 33w2d presenting for optimization of cardiac status in the setting of known nonischemic cardiomyopathy in the setting of and prior delivery. 1. Non-ischemic dilated cardiomyopathy, NYHA Class II ?? 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 Last TTE 01/14/21 showing severely dilated LV EF 35% (reduced from 54% on 12/10/20), diffuse hypokinesis except for basal anterolateral &inferolateral segments ?? Delivery indications: NRFHT, maternal deterioration, progressive labor ?? Delivery plan: repeat section scheduled 01/21 at 12pm ?? Tocolysis: not indicated ?? Continuous telemetry monitoring, low threshold to transfer to cardiovascular critical care unit ?? Avoid tachycardia, bradycardia, rapid fluid boluses. Careful fluid loading and consider Greenwood catheter to measure PAD pressure ?? Double lumen PICC line in place (R) in anticipation of possible need for vasoactive medication administration ?? Avoid rapid oxytocin bolus, terbutaline, nitrous oxide ?? Per cardiology, consider Lasix for progressive SOB or hypoxia in coordination with cardiology team ?? Mild CP on the evening of 01/17/21, resolved. Normal ECG, troponin and BNP at time of pain 2. Status ?? NST: daily ?? presentation: cephalic as of 01/17/21 ?? Last Growth US: morphology. Growth ultrasound ordered. ?? Steroid status: First dose 01/16/21 at 1708 ?? Magnesium for neuroprotection: not applicable ?? Consults obtained: Neonatology, Anesthesiology, Cardiology 3. Other Maternal Concerns ?? Anemia: hgb 11.6 on admission ?? Marijuana use 4. Care ?? labs reviewed and within normal limits ?? GBS status: GBS positive ?? T&S performed on admission, Rh positive ?? TDaP: Given 01/02/21 ?? Influenza Vaccine: given 01/02/21 ?? COVID-19 vaccine: has not received. ?? Continue vitamin ?? Contraception Plan: Permanent sterilization. Consent form signed 12/10/2020 5. General Antepartum Care ?? hemorrhage risk: medium ?? Consents obtained: Section with bilateral salpingectomy for sterilization, Opioids ?? Prophylaxis: SCDs in bed, on SQH 7500u q12h for VTE prophylaxis ?? Anticipated DC date: pending clinical course Patient seen and discussed with Maternal Medicine attending. Inge Benavides MD, PGY-3 01/20/2021 7:27 AM Associated attestation - Meri Zimmerman MD - 01/20/2021 10:08 AM EST MF attending note I saw and evaluated the patient. I agree with the findings and the plan of care as documented in Dr. Benavides's note. The patient reports feeling well. Denies dyspnea and chest pain. She denies contractions, leaking of fluid or bleeding. She reports good activity. My physical exam confirms and/or revises Dr. Benavides's exam. Temp: [36.4 ??C (97.5 ??F)-37 ??C (98.6 ??F)] Heart Rate: [80-98] Resp: [16-18] BP: (98-127)/(55-73) SpO2: [97 %-100 %] Heart Rate from SpO2: [85 bpm-98 bpm] Nonstress test: Documented elsewhere Abdomen: gravid, soft, nontender Ext: no edema Impression: Cardiomyopathy with stable condition but seems to have the capacity to decompensate easily and requires ongoing hospitalization. No evidence for labor. Reassuring testing Plan: Continue hospitalization for and maternal safety and ongoing assessment regarding need for delivery. Metoprolol Heparin Telemetry Meri Zimmerman MD * Meri Zimmerman MD - 01/19/2021 9:29 AM EST MFM attending note I saw and evaluated the patient. Mary reports feeling unchanged from yesterday. She has not chest pain, palpitations or dyspnea. Has not noted change in edema. She denies contractions, leaking of fluid or bleeding. She reports good activity. 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 Her recent deterioration has not progressed with hospital rest and continued beta sunitha. Prior LTCS at 37 weeks for nonreassuring FHR during long induction of labor. Plan: Given her unstable heart function she requires ongoing hospitalization in preparation for delivery. With long she discussion she has opted for a RCS which I support. She will be evaluated againby cardiology tomorrow with plan for RCS in 2 days. We would plan to transfer her to the [facility] for any decompensation. Meri Zimmerman MD * Inge Benavides - 01/19/2021 9:00 AM EST Daily NST Note Patient ID: Mary Porras is a 25 y.o. at 33w2d who is for antepartum and management ofinterval reduced systolic function with known non- ischemic dilated cardiomyopathy and LVEF 35%. NST Start 0848. Stop 0940 Baseline 135 Large prolonged accels, >15 bpm lasting at least 15 seconds No decels Reactive NST, reassuring for >[address] 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 Inge Benavides MD, PGY-3 01/19/21 Associated attestation - Cami Rowland MD - 01/21/2021 1:29 PM EST I personally reviewed and interpreted this NST. Cami Rowland MD * Inge Benavides - 01/19/2021 8:06 AM EST Obstetrical Antepartum Progress Note Patient ID: Mary Porras is a 25 y.o. 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 HD#4 24 Hour Events --none Subjective: Mary is feeling well today. She reports no vaginal bleeding, loss of fluid or contractions. Feeling good movement. She is having regular bowel movements and eating. No chest pain or shortness of breath. Review of Systems: Negative except as detailed above. Objective: Physical Exam Patient Vitals for the past 24 hrs: BP Temp Temp src Pulse Resp SpO2 Weight 01/19/21 0407 109/55 36.8 ??C (98.2 ??F) Oral 84 18 97 % -- 01/19/21 0048 110/54 -- -- 81 -- 96 % -- 01/18/21 1948 113/52 36.8 ??C (98.2 ??F) Oral 92 20 99 % -- 01/18/21 1710 -- -- -- -- -- 99 % -- 01/18/21 1657 117/66 36.7 ??C (98.1 ??F) Oral 100 20 -- -- 01/18/21 1130 114/56 36.4 ??C (97.5 ??F) Oral 100 18 -- -- 01/18/21 1125 -- -- -- -- -- 98 % -- 01/18/21 1121 -- -- -- -- -- 97 % -- 01/18/21 1117 -- -- -- -- -- 97 % -- 01/18/21 1112 -- -- -- -- -- 97 % -- 01/18/21 1108 -- -- -- -- -- 97 % -- 01/18/21 1104 -- -- -- -- -- 97 % -- 01/18/21 1100 -- -- -- -- -- 98 % -- 01/18/21 1056 -- -- -- -- -- 98 % -- 01/18/21 1052 -- -- -- -- -- 98 % -- 01/18/21 1048 -- -- -- -- -- 98 % -- 01/18/21 1044 -- -- -- -- -- 98 % -- 01/18/21 1040 -- -- -- -- -- 99 % -- 01/18/21 1035 -- -- -- -- -- 99 % -- 01/18/21 0826 110/60 36.5 ??C (97.7 ??F) Oral 92 18 98 % -- 01/18/21 0822 -- -- -- -- -- -- 97 kg (213 lb 14.4 oz) Exam per Dr. Zimmerman Heart Rate Interpretation: Please see separate daily NST note. Most Recent Ultrasound Date: 01/17/21 GA: 33w4d FHR: 134 bpm Presentation: cephalic Placenta: anterior Amniotic fluid: within normal limits EFW: 2135g, [id number], 75% Normal limited anatomy Labs Lab Results Component Value Date WBC 13.3 (H) 01/16/2021 HGB 11.6 (L) 01/16/2021 HCT 36.8 01/16/2021 MCV 87.6 01/16/2021 PLATELET 300 01/16/2021 Lab Results Component Value Date NA 137 01/16/2021 K 3.7 01/16/2021 CL 102 01/16/2021 CO2 24 01/16/2021 BUN 7 (L) 01/16/2021 CREATININE 0.57 (L) 01/16/2021 GLUCOSE 76 01/16/2021 GLUCFASTING 81 10/10/2013 CALCIUM 9.4 01/16/2021 ESTGFR 130 01/16/2021 Lab Results Component Value Date ALT 10 01/16/2021 AST 15 01/16/2021 ALKPHOS 114 (H) 01/16/2021 BILITOT <0.2 (L) 01/16/2021 BILIDIR <0.1 09/19/2013 ALBUMIN 3.9 01/16/2021 PROT 7.4 01/16/2021 Pre-eclampsia Labs Recent Labs 01/16/21 1648 WBC 13.3* HGB 11.6* HCT 36.8 PLATELET 300 AST 15 ALT 10 CREATININE 0.57* Labs ABO/RH B pos, Ab negative Hgb/Hct 11.6/36.8 Platelets 300K Varicella Non-immune 08/16/20 Rubella Immune 08/16/20 Syphillis Not found GC/Chlam Neg/neg Urine Culture Neg HepBsAg Negative 08/16/20 HepC Negative 08/16/20 HIV Negative 08/16/20 1 hr GTT 106 3 hr GTT NA GBS pending Pap NILM 08/16/20 Assessment & Plan: Mary is a 25 y.o. at 33w1d presenting for optimization of cardiac status in the setting of known nonischemic cardiomyopathy in the setting of and prior delivery. 1. Non-ischemic dilated cardiomyopathy, NYHA Class II ?? 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 Last TTE 01/14/21 showing severely dilated LV EF 35% (reduced from 54% on 12/10/20), diffuse hypokinesis except for basal anterolateral &inferolateral segments ?? Delivery indications: NRFHT, maternal deterioration, progressive labor ?? Delivery plan: repeat section scheduled 01/21 at 12pm ?? Tocolysis: not indicated ?? Continuous telemetry monitoring, low threshold to transfer to cardiovascular critical care unit ?? Avoid tachycardia, bradycardia, rapid fluid boluses. Careful fluid loading and consider Greenwood catheter to measure PAD pressure ?? PICC line in place in anticipation of possible need for vasoactive medication administration ?? Avoid rapid oxytocin bolus, terbutaline, nitrous oxide ?? Per cardiology, consider Lasix for progressive SOB or hypoxia in coordination with cardiology team ?? Mild CP on the evening of 01/17/21, resolved. Normal ECG, troponin and BNP at time of pain 2. Status ?? NST: daily ?? presentation: cephalic as of 01/17/21 ?? Last Growth US: morphology. Growth ultrasound ordered. ?? Steroid status: First dose 01/16/21 at 1708 ?? Magnesium for neuroprotection: not applicable ?? Consults obtained: Neonatology, Anesthesiology, Cardiology 3. Other Maternal Concerns ?? Anemia: hgb 11.6 on admission ?? Marijuana use 4. Care ?? labs reviewed and within normal limits ?? GBS status: GBS positive ?? T&S performed on admission, Rh positive ?? TDaP: Given 01/02/21 ?? Influenza Vaccine: given 01/02/21 ?? COVID-19 vaccine: has not received. ?? Continue vitamin ?? Contraception Plan: Permanent sterilization. Consent form signed 12/10/2020 5. General Antepartum Care ?? hemorrhage risk: medium ?? Consents obtained: Section with bilateral salpingectomy for sterilization, Opioids ?? Prophylaxis: SCDs in bed, on SQH 7500u q12h for VTE prophylaxis ?? Anticipated DC date: pending clinical course Patient seen and discussed with Maternal Medicine attending. Inge Benavides MD, PGY-3 01/19/2021 8:06 AM Mayra Rodas MD - 01/18/2021 4:05 PM EDT Obstetrical Antepartum Progress Note Patient ID: Mary Porras is a 25 y.o. 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 HD#3 24 Hour Events -- Episode of tachycardia and chest pain overnight, EKG normal and labs normal. Symptoms resolved with metoprolol. Subjective: Mary is feeling well today. She reports no vaginal bleeding, loss of fluid or contractions. Feeling good movement. She is having regular bowel movements and eating. Feels her cardiac symptoms from last night have resolved. No chest pain or shortness of breath. Review of Systems: Negative except as detailed above. Objective: Physical Exam Patient Vitals for the past 24 hrs: BP Temp Temp src Pulse Resp SpO2 Weight 01/18/21 1130 114/56 36.4 ??C (97.5 ??F) Oral 100 18 -- -- 01/18/21 1125 -- -- -- -- -- 98 % -- 01/18/21 1121 -- -- -- -- -- 97 % -- 01/18/21 1117 -- -- -- -- -- 97 % -- 01/18/21 1112 -- -- -- -- -- 97 % -- 01/18/21 1108 -- -- -- -- -- 97 % -- 01/18/21 1104 -- -- -- -- -- 97 % -- 01/18/21 1100 -- -- -- -- -- 98 % -- 01/18/21 1056 -- -- -- -- -- 98 % -- 01/18/21 1052 -- -- -- -- -- 98 % -- 01/18/21 1048 -- -- -- -- -- 98 % -- 01/18/21 1044 -- -- -- -- -- 98 % -- 01/18/21 1040 -- -- -- -- -- 99 % -- 01/18/21 1035 -- -- -- -- -- 99 % -- 01/18/21 0826 110/60 36.5 ??C (97.7 ??F) Oral 92 18 98 % -- 01/18/21 0822 -- -- -- -- -- -- 97 kg (213 lb 14.4 oz) 01/18/21 0800 -- -- -- 92 -- -- -- 01/18/21 0428 104/54 36.9 ??C (98.4 ??F) Oral 83 17 99 % -- 01/17/21 2325 118/58 36.8 ??C (98.2 ??F) Oral 93 18 96 % -- 01/17/21 1939 106/58 36.6 ??C (97.9 ??F) Oral 100 19 -- -- 01/17/21 1936 -- -- -- -- -- 98 % -- 01/17/21 1657 94/60 -- -- 95 -- -- -- 01/17/21 1655 95/58 -- -- 97 -- 99 % -- Gen: appears well, NAD, resting comfortably in bed CV: RRR, no murmurs/rubs/gallops Pulm: CTAB, no wheezes/crackles/rales Uterus: gravid, nontender Heart Rate Interpretation: Please see separate daily NST note. Most Recent Ultrasound Date: 10/10/20 GA: 18w5d FHR: 148 bpm Presentation: cephalic Placenta: anterior Amniotic fluid: within normal limits EFW: 309g, [id number] Normal detailed anatomy Labs Lab Results Component Value Date WBC 13.3 (H) 01/16/2021 HGB 11.6 (L) 01/16/2021 HCT 36.8 01/16/2021 MCV 87.6 01/16/2021 PLATELET 300 01/16/2021 Lab Results Component Value Date NA 137 01/16/2021 K 3.7 01/16/2021 CL 102 01/16/2021 CO2 24 01/16/2021 BUN 7 (L) 01/16/2021 CREATININE 0.57 (L) 01/16/2021 GLUCOSE 76 01/16/2021 GLUCFASTING 81 10/10/2013 CALCIUM 9.4 01/16/2021 ESTGFR 130 01/16/2021 Lab Results Component Value Date ALT 10 01/16/2021 AST 15 01/16/2021 ALKPHOS 114 (H) 01/16/2021 BILITOT <0.2 (L) 01/16/2021 BILIDIR <0.1 09/19/2013 ALBUMIN 3.9 01/16/2021 PROT 7.4 01/16/2021 Pre-eclampsia Labs Recent Labs 01/16/21 1648 WBC 13.3* HGB 11.6* HCT 36.8 PLATELET 300 AST 15 ALT 10 CREATININE 0.57* Labs ABO/RH B pos, Ab negative Hgb/Hct 11.6/36.8 Platelets 300K Varicella Non-immune 08/16/20 Rubella Immune 08/16/20 Syphillis Not found GC/Chlam Neg/neg Urine Culture Neg HepBsAg Negative 08/16/20 HepC Negative 08/16/20 HIV Negative 08/16/20 1 hr GTT 106 3 hr GTT NA GBS pending Pap NILM 08/16/20 Assessment & Plan: Mary is a 25 y.o. at 33w0d presenting for optimization of cardiac status in the setting of known nonischemic cardiomyopathy in the setting of and prior delivery. 1. Non-ischemic dilated cardiomyopathy, NYHA Class II ?? 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 Last TTE 01/14/21 showing severely dilated LV EF 35% (reduced from 54% on 12/10/20), diffuse hypokinesis except for basal anterolateral &inferolateral segments ?? Delivery indications: NRFHT, maternal deterioration, progressive labor ?? Delivery plan: repeat section scheduled 01/21 at 12pm ?? Tocolysis: not indicated ?? Continuous telemetry monitoring, low threshold to transfer to cardiovascular critical care unit ?? Avoid tachycardia, bradycardia, rapid fluid boluses. Careful fluid loading and consider Greenwood catheter to measure PAD pressure ?? Will place PICC line today in anticipation of possible need for vasoactive medication administration ?? Avoid rapid oxytocin bolus, terbutaline, nitrous oxide ?? Per cardiology, consider Lasix for progressive SOB or hypoxia in coordination with cardiology team 2. Status ?? NST: daily ?? presentation: cephalic as of 01/16/21 ?? Last Growth US: morphology. Growth ultrasound ordered. ?? Steroid status: First dose 01/16/21 at 1708 ?? Magnesium for neuroprotection: not applicable ?? Consults obtained: Neonatology, Anesthesiology, Cardiology 3. Other Maternal Concerns ?? Anemia: hgb 11.6 on admission ?? Marijuana use 4. Care ?? labs reviewed and within normal limits except missing syphillis screening (will order) ?? GBS status: GBS pending (collected 01/16/21) ?? T&S performed on admission, Rh positive ?? TDaP: Given 01/02/21 ?? Influenza Vaccine: given 01/02/21 ?? COVID-19 vaccine: has not received. ?? Continue vitamin ?? Contraception Plan: Mirena IUD vs. Permanent sterilization. Consent form signed 12/10/2020 5. General Antepartum Care ?? hemorrhage risk: medium ?? Consents obtained: Section with bilateral salpingectomy for sterilization, Opioids ?? Prophylaxis: SCDs in bed, started SQH 7500u q12h for VTE prophylaxis today ?? Anticipated DC date: pending clinical course Patient seen and discussed with Maternal Medicine attending. Mayra Solorio MD, PGY-4 01/18/2021 4:05 PM * Mayra Solorio MD - 01/18/2021 3:58 PM EDT Daily NST Note Patient ID: Mary Porras is a 25 y.o. at 33w0d who is for antepartum and management ofinterval reduced systolic function with known non- ischemic dilated cardiomyopathy and LVEF 35%. NST Fetus A 01/18/2021 HR (beats/min) 135 HR Variability moderate (amplitude range 6 to 25 bpm) HR Accelerations present HR Decelerations none Contraction Frequency (Minutes) none Nonstress Test Interpretation Reactive, >32 weeks: two 15 bpm accelerations lasting 15 seconds Overall Impression Reassuring for gestational age Comments - Discussed with Dr. Dimple Mei, attending blast furnace blower. Mayra Solorio MD, PGY-4 01/18/2021 3:58 PM Associated attestation - Emma Mei MD - 01/18/2021 4:12 PM EDT Attending Note: I was the attending physician supervising the resident in the above care and I personally reviewed and interpreted the NST. I agree with the resident's interpretation as noted above. Emma Mei MD * Meri Zimmerman MD - 01/18/2021 11:07 AM EDT [facility] attending note I saw and evaluated the patient. The patient reports feeling well. She has not had recurrent chest pain or dyspnea after she received metoprolol. She did have dyspnea after leangin over to bulk picker something from the floor but does well with ambulation. She denies palpitations. She denies contractions, leaking of fluid or bleeding. She reports good activity. Temp: [36.5 ??C (97.7 ??F)-36.9 ??C (98.4 ??F)] Heart Rate: [83-100] Resp: [17-19] BP: (94-118)/(54-63) SpO2: [96 %-99 %] Heart Rate from SpO2: [82 bpm-103 bpm] Nonstress test: Documented elsewhere Appears well Cheerful Lungs clear Heart RRR Without murmur Abd nontender, uterus soft Ext no edema Impression: 33w0d Longstanding non ischemic cardiomyopathy with recent deterioration in heart function. She has been more stable with hospital rest and continued medication regimen. The fact that she had some chest pain with a delayed dose of metoprolol speaks to the fragility of her heart function and need for hospitalization. There is no evidence for labor. The testing is reassuring. Plan: Continued hospitalization for maternal safety from decreased heart function with longstandingcardiomyopathy. surveillance with nonstress test. Delivery in 3 days. Move to [facility] if decompensation. Meri Zimmerman MD * Sheela Lorenzo RN - 01/18/2021 4:39 AM EDT Patient not wanting to wear SCD states they make her warm, wants to keep them off, discussed reasonfor SCD with patient, patient on heparin * Sheela Lorenzo RN - 01/17/2021 9:23 PM EDT Patient called at 1939 c/ of chest pressure and pain .Lungs clear no SOB, cardiac rythem is sinus tach, Dr. Benavides in to assess patient, metroprol that was held earlier due to BP ordered to be given.EKG and labs done as ordered. Sinus tach on EKG, Troponin and Pro BNP WNL. With in 1/2 hour patientreports pain and pressure is gone * Inge Benavides - 01/17/2021 8:00 PM EDT Interval Progress Note S: Called to evaluate patient in the setting of new chest tightness. Mary describes chest pain as heaviness or tightness for the past 15 minute, mild but noticeable. She denies any shortness of breath or tachypnea. Denies nausea, sweating, abdominal pain, or other symptoms. Metoprolol was held at 1700 for BP in the low 90s/40s but bedside RN believes cuff may have been improperly sized. O: Temp: [36.6 ??C (97.9 ??F)] Heart Rate: [95-100] Resp: [19] BP: (94-106)/(58-60) SpO2: [98 %-99 %] Heart Rate from SpO2: [95 bpm-97 bpm] Gen: comfortable appearing female in NAD, skin warm and dry and not diaphoretic Heart: mildly tachycardiac rate and normal rhythm, no murmurs Lungs: clear to auscultation bilaterally in all lung luque including at bases, no rales/rhonchi/crackles Ext: 1+ nonpitting edema at ankles, no calf tenderness, normal DP pulses Telemetry reviewed: HR 95-123 A/P -give metoprolol now for rate control. BP adequate at 106/68. -stat ECG within normal limits -trop and BNP ordered -no signs/symptoms of fluid overload -monitor closely for worsening tachycardia or new hypoxia -d/w hog killer Inge Benavides MD 01/17/2021 Associated attestation - Isaiah Hernandez MD - 01/18/2021 3:38 AM EDT In to see patient after she had received metoprolol. She appeared comfortable and noted that her chest discomfort had resolved. EKG normal with HR 96. Troponin negative. Will continue to monitor ISAIAH HERNANDEZ MD * Allan Wilkinson Jr., MD - 01/17/2021 2:56 PM EDT The pt is feeling well and has no major complaints. She got up and ambulated a few times without issue. Thinks her breathing is normal. Exam: NAD, speech is normal Lungs are CTABL Cardiac, RRR, no m/r/g Trace to 1+ KATHERINE A/P: Mary Porras is a 25 yo woman w/ a pmh sig for pediatric viral myocarditis (age 4 months) and previous peripartum cardiomyopathy, presenting today after having found a newly reduced EF of 35%(from 45%) on out-pt f/u echocardiogram. Remains clinically stable. The pt is receiving steroids per OB for further development of her casey lungs. Plans are in the works for a C- section early next week in the OR, w/ support of cardiac anesthesia. The pt will then be monitored post-op in the [facility].Continue to monitor closley. In the event the pt does become hypoxic or progressively SOB, would recommend a trial of lasix and contact the hog killer. For now, continue metoprolol as written. 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 Patient may be discharged home with PICC this weekend. Patient has accepted VNA referral. Only one VNA, that offers maternal/child services covers patient's town. VNA orders pended to this agency: [facility] [employer]. PHONE: [phone] FAX: [phone] Patient offered DME choice for PICC line flush supplies. Orders for flush supplies pended to: [place], [place] or Arlene Long RN Case Manager [facility] [phone] Pager [phone] * Rubi Tejeda MD - 01/17/2021 10:55 AM EDT Daily NST Note Patient ID: Mary Porras is a 25 y.o. at 32w6d who is for antepartum and management ofinterval reduced systolic function with known non- ischemic dilated cardiomyopathy and LVEF 35%. NST Fetus A 01/17/2021 HR (beats/min) 125 HR Variability moderate (amplitude range 6 to 25 bpm) HR Accelerations present;greater than/equal to 15 bpm;lasting at least 15 seconds HR Decelerations none Contraction Frequency (Minutes) none Nonstress Test Interpretation Reactive, >32 weeks: two 15 bpm accelerations lasting 15 seconds Overall Impression Reassuring for gestational age Comments - Discussed with Dr. 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 Inge Benavides MD, PGY-3 01/17/2021 10:57 AM I personally reviewed and interpreted this NST. RUBI TEJEDA MD * Inge Benavides - 01/17/2021 9:30 AM EDT Obstetrical Antepartum Progress Note Patient ID: Mary Porras is a 25 y.o. 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 HD#2 24 Hour Events No acute events overnight Subjective: Mary is feeling well today. She reports no vaginal bleeding, loss of fluid or contractions. Feeling good movement. She is having regular bowel movements and eating. She reports mild exertional dyspnea. She cannot lie flat at night to sleep without being short of breath. She denies a cough. She denies any chest pain. Review of Systems: Negative except as detailed above. Objective: Physical Exam Patient Vitals for the past 24 hrs: BP Temp Temp src Pulse Resp SpO2 Height Weight 01/16/212011 101/58 36.5 ??C (97.7 ??F) Oral 94 17 99 % -- -- 01/16/21 183 -- -- -- -- -- 99 % -- 97.7 kg (215 lb 4.8 oz) 01/16/211829 -- -- -- -- -- 99 % -- -- 01/16/21 175 115/70 -- -- 92 -- 100 % -- -- 01/16/21 1757 115/70 -- -- 93 -- -- -- -- 01/16/21 1527 -- -- -- -- -- -- 177.8 cm (5' 10) 95.7 kg (211 lb) 01/16/21 1519 -- -- -- -- -- 99 % -- -- 01/16/21 1518 109/66 -- -- 93 -- -- -- -- 01/16/21 1504 -- 36.7 ??C (98.1 ??F) -- -- -- -- -- -- Gen: appears well, NAD, resting comfortably in bed CV: RRR, no murmurs/rubs/gallops Pulm: CTAB, no wheezes/crackles/rales Uterus: gravid, nontender Heart Rate Interpretation: Please see separate daily NST note. Most Recent Ultrasound Date: 10/10/20 GA: 18w5d FHR: 148 bpm Presentation: cephalic Placenta: anterior Amniotic fluid: within normal limits EFW: 309g, 2gt77sc Normal detailed anatomy Labs Lab Results Component Value Date WBC 13.3 (H) 01/16/2021 HGB 11.6 (L) 01/16/2021 HCT 36.8 01/16/2021 MCV 87.6 01/16/2021 PLATELET 300 01/16/2021 Lab Results Component Value Date NA 137 01/16/2021 K 3.7 01/16/2021 CL 102 01/16/2021 CO2 24 01/16/2021 BUN 7 (L) 01/16/2021 CREATININE 0.57 (L) 01/16/2021 GLUCOSE 76 01/16/2021 GLUCFASTING 81 10/10/2013 CALCIUM 9.4 01/16/2021 ESTGFR 130 01/16/2021 Lab Results Component Value Date ALT 10 01/16/2021 AST 15 01/16/2021 ALKPHOS 114 (H) 01/16/2021 BILITOT <0.2 (L) 01/16/2021 BILIDIR <0.1 09/19/2013 ALBUMIN 3.9 01/16/2021 PROT 7.4 01/16/2021 Pre-eclampsia Labs Recent Labs 01/16/21 1648 WBC 13.3* HGB 11.6* HCT 36.8 PLATELET 300 AST 15 ALT 10 CREATININE 0.57* Labs ABO/RH B pos, Ab negative Hgb/Hct 11..8 Platelets 300K Varicella Non-immune 08/16/20 Rubella Immune 08/16/20 Syphillis Not found GC/Chlam Neg/neg Urine Culture Neg HepBsAg Negative 08/16/20 HepC Negative 08/16/20 HIV Negative 08/16/20 1 hr GTT 106 3 hr GTT NA GBS pending Pap NILM 08/16/20 Assessment & Plan: Mary is a 25 y.o. at 32w5d presenting for optimization of cardiac status in the setting of known nonischemic cardiomyopathy in the setting of and prior delivery. 1. Non-ischemic dilated cardiomyopathy, NYHA Class II ?? 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 Last TTE 01/14/21 showing severely dilated LV EF 35% (reduced from 54% on 12/10/20), diffuse hypokinesis except for basal anterolateral &inferolateral segments ?? Delivery indications: NRFHT, maternal deterioration, progressive labor ?? Delivery plan: repeat section (see discussion below) ?? Tocolysis: not indicated ?? Continuous telemetry monitoring, low threshold to transfer to cardiovascular critical care unit ?? Avoid tachycardia, bradycardia, rapid fluid boluses. Careful fluid loading and consider Greenwood catheter to measure PAD pressure ?? Will place PICC line today in anticipation of possible need for vasoactive medication administration ?? Avoid rapid oxytocin bolus, terbutaline, nitrous oxide ?? Per cardiology, consider Lasix for progressive SOB or hypoxia in coordination with cardiology team Had a long discussion with Beryl about delivery method. She had previously discussed this with Dr. Hernandez and Dr. Lopez overnight and elected to pursue trial of labor after section. Upon further review of her operative note, and the perspective of Dr. Zimmerman who was present at her last delivery, we had a further discussion of the nuances of the decision making between trial of laborafter and planned repeat section. Her prior delivery was at 37w0d for NRFHT remote from delivery during IOL for worsening cardiomyopathy in the third trimester- surgery was notable for difficult extraction of the head after the head was elevated out of the pelvis and converted to breech position within the uterus prior to delivery. The fascia and skin was extended to accommodate delivery of the head which was ultimately successful. The hysterotomy had a 3cm extension at the left inferior angle and a 2-layer closure. We discussed the difference between a planned repeat section and an emergent section for either or maternal indications in the setting of labor and the potential consequences to both herself and her infant if emergency section were required. Due to her dilated cardiomyopathy there are several medications that are contraindicated due to significant ramifications in the setting of hemodynamic changes, for instance nitrous oxide and terbutaline. In the setting of a difficult extraction as she previously experienced with contraction of the uterine muscle we normally would use a medication such as nitrous oxide to allow delivery of the head. Obviously using this medication in her setting would have much deeper ramifications. Due to these nuances and the patient's discomfort with the idea of an emergent section during labor course, which is what happened the last time, she has now elected to proceed with the scheduled repeat section for delivery. After discussion with the cardiology/heart failure team, they feel it is unlikely that her clinicalstatus and cardiomyopathy will improve while she is still , thus we will make a plan to deliver her early next week on Wednesday or Wednesday after her betamethasone course has completed and we have a full staff complement including main OR staff, cardiac anesthesiology, full obstetrical team. It is planned that she will be transferred to the cardiovascular ICU postoperatively with transfer ofcare to the cardiology service for management of her heart failure. 2. Status ?? NST: daily ?? presentation: cephalic as of 01/16/21 ?? Last Growth US: morphology. Growth ultrasound ordered. ?? Steroid status: First dose 01/16/21 at 1708 ?? Magnesium for neuroprotection: not applicable ?? Consults obtained: Neonatology, Anesthesiology, Cardiology 3. Other Maternal Concerns ?? Anemia: hgb 11.6 on admission ?? Marijuana use 4. Care ?? labs reviewed and within normal limits except missing syphillis screening (will order) ?? GBS status: GBS pending (collected 01/16/21) ?? T&S performed on admission, Rh positive ?? TDaP: Given 01/02/21 ?? Influenza Vaccine: given 01/02/21 ?? COVID-19 vaccine: has not received. ?? Continue vitamin ?? Contraception Plan: Mirena IUD vs. Permanent sterilization. Consent form signed 12/10/2020 5. General Antepartum Care ?? hemorrhage risk: medium ?? Consents obtained: Section with bilateral salpingectomy for sterilization, Opioids ?? Prophylaxis: SCDs in bed, started SQH 7500u q12h for VTE prophylaxis today ?? Anticipated DC date: pending clinical course Patient seen and discussed with Maternal Medicine attending. Inge Benavides MD, PGY-3 01/16/2021 9:18 PM Associated attestation - Meri Zimmerman MD - 01/18/2021 11:05 AM EDT MFM attending note I saw and evaluated the patient. I agree with the findings and the plan of care as documented in Dr. Benavides's note. The patient reports feeling well. She has had no chest pain or dyspnea. Her leg edema is better. She denies contractions, leaking of fluid or bleeding. She reports good activity. My physical exam confirms and/or revises Dr. Benavides's exam. Temp: [36.5 ??C (97.7 ??F)-36.9 ??C (98.4 ??F)] Heart Rate: [83-100] Resp: [17-19] BP: (94-118)/(54-63) SpO2: [96 %-99 %] Heart Rate from SpO2: [82 bpm-100 bpm] Nonstress test: Documented elsewhere Abdomen: gravid, soft, nontender Ext: no edema Impression: 32 5/7 weeks here with long history of cardiomyopathy with recent decrease in function based on symptoms and echocardiogram. She has been stable in the past few days with continued beta usnitha and hospital surveillance. She has the high likelihood of worsening cardiac function with ongoing . The safest course of action for her is to deliver her after a few more days of stabilizing her condition. At this gestational age the likelihood of mortality and severe morbidity is very small particularly after a course of steroids. Prior difficult LTCS after long induction of labor. The uterine incision was low transverse but extraction of the fetus was difficult. Plan: I have recommended delivery in 3-4 days. We discussed mode of delivery. She is reluctant to have a long induction without guarantee of a vaginal delivery. I did confirm with her that she is aware that a vaginal delivery would provide the best outcome for her. An additional factor is that if she had upper segment contraction again, agents to release this could cause hemodynamic instability. Her stated preference is a repeat . Meri Zimmerman MD * Jackie Lopez MD - 01/16/2021 9:23 PM EDT Mode of delivery discussion: Went to the bedside to discuss with Mary the possible options for her delivery, although we are hopeful that her cardiovascular status will remain stable and she will be able to continue the further in gestation. She expressed anxiety about her future delivery given the urgent need fora section last time due to non-reassuring heart tones. She is still interested in trying to have a vaginal . She did sign federal consents for a tubal ligation during this , but expresses that she is unsure. She is not hoping to have further pregnancies, but is worried that if this does not go to term she may feel differently. She is hoping for a post-placental Mirena IUD. I had a discussion with the patient with regard to mode of delivery after section. I explained to her the risks, benefits, and alternatives to an elective repeat section and a trialof labor. I reviewed with her that using the [facility] TOLAC success calculator, her chance of a successful is around ~85%, but does not take into consideration her unique cardiovascular pathology andthe risks cannot be totally quantified. I reviewed with her the specific risks of section including bleeding, infection, and damage to internal organs, and the cumulative risks associated with multiple repeat sections. morbidity is greater if the delivery occurs after a trial of labor. I discussed the risks of a trial of labor including uterine rupture with resulting morbidity and mortality and maternal morbidity. I quoted an approximately 0.5% risk of uterine rupture with a trial of labor and a much lower risk with an ERCS. I explained that the risk of catastrophic outcome from a uterine rupture is less than 0.5%. I provided her with our information pamphlet and asked her to review it in detail. I explained that a successful trial of labor carries the least risk of adverse outcome and a failed trial of labor carries the highest risk of adverse outcome. The consent form was also filled out. Reviewed consent with the patient. Discussed risks such as maternal: bleeding, infection, need for blood transfusion, damage to nearby organs such as bladder; bowel; and ureters. Also discussed rare risks such as damage to the baby or maternal hysterectomy. Discussed benefits and alternatives. Patient had time to ask questions which were answered. She would like to trial labor with a section if indicated. TOLAC counseling consent and section consent both were signed and placed in chart. For contraception, she is planning on a post-placental Mirena IUD. We discussed the risks and benefits of the IUD. We discussed a slightly increased risk of IUD expulsion when placed placentally as compared to at six weeks . We also discussed the small risk of IUD migration into the uterine wall or through the uterus into the abdominal cavity and then requiring surgery for removal. I explained that the strings will need to be checked after her first menses, as there is a small risk of expulsion. I explained that with the Mirena IUD, many women experience irregular menstrual spotting, most have lightening of their menses, and 20% develop amenorrhea. Written consent was ob tained and placed in the chart. Discussed with Dr. Hernandez, attending OBGYN Jackie Lopez MD, PGY-1 Obstetrics and Gynecology 01/16/2021 documented in this encounter H&P Notes * Malissa Borrero MD - 01/22/2021 5:07 PM EST Images from the original note were not included. Cardiovascular Medicine Admission History and Physical Patient Name: Mary Porras Service: Cardiology S1 PCP: GABRIELLA Mayer PCP phone #: [phone] Attending: GRACE DESAI DANETTE L ID: Mary Porras is a 25 y.o. female with a past medical history of with peripartum nonischemic cardiomyopathy (last TTE 01/14 w/ EF of 35%) with a previous high-risk teen pregnancyand now again presenting at 33w now s/p caesarian section with bilateral salpingectomy whois being admitted to the [facility] for monitoring in the post-op setting. History of Present Illness: Mary was admitted to the Obstetrical service as per request of MFM and Cardiology on 01/16/21. Pt's previous echo demonstrated an EF of 35%, an acute change from previously known 45%. 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 During her first she experienced peripartum cardiomyopathy with a decline in her LVEF from 50% to 35%. Her cardiac function subsequently recovered. However, her EF has declined during her currentpregnancy. She has been managed with digoxin 250mcg daily and metoprolol succinate 25mg daily priorto her admission. Prior to her admission she notes 2 weeks of shortness of breath on exertion and bilateral calf swelling. She has had some SOB and lightheadedness with moving around her room in the OB unit prior to delivery. Denies fevers, chills, sick contacts, palpitations, chest pain, nausea, diaphoresis, headaches, dysuria, hematochezia. Not vaccinated against COVID. She lives with her boyfriend. He smokes cigarettes but she does not. She endorses smoking marijuana1-2x/day during her . She has a history of PTSD, depression, and anxiety that was originally treated with sertraline until she discontinued it because she did not like how it made her feel. Denies alcohol use during . Her elderly grandfather has CHF but no other family history of cardiac disease. Previous Cardiac Studies: Echo: 01/14 SUMMARY: ?? 1. The left ventricle is severely dilated. Global left ventricular systolic function is moderately reduced. The quantitative left ventricular ejection fraction by biplane Higginbotham's method is 35%. There is diffuse hypokinesis present. except for the basal anterolateral and inferolateral segments which are normal. 2. The right ventricle is normal in size. Right ventricular global systolic function is normal. Theestimated pulmonary artery systolic pressure is 22 mmHg. The estimated right atrial pressure is 8 mmHg. 3. There is no hemodynamically significant valve disease. Review of Systems: Bolaños-negative unless otherwise noted in the HPI above. Problem List/Past Medical History Patient Active Problem List Diagnosis ??? Cardiomyopathy, peripartum, antepartum ??? Maternal cardiovascular [...] TR. Est PAS 15. B-sunitha initiated 06/30/13 ??? High risk teen With known cardiomyopathy Past Medical History: Diagnosis Date ??? H/O chlamydia infection 2019 treated with negative JOSE ??? History of section ??? 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 Non-ischemic cardiomyopathy with peripartum cardiomyopathy 2013 Past Surgical History: Procedure Laterality Date ??? CENTRAL VENOUS CATHETER ??? HERNIA REPAIR ??? PRO DELIVERY ONLY 10/08/2013 @ DELIVERY performed by Meri Zimmerman MD at [facility] MAIN OR Meds: No current facility-administered medications on file prior to encounter. Current Outpatient Medications on File Prior to Encounter Medication Sig Dispense Refill ??? magnesium 250 mg Tablet Take by mouth. ??? iron,carb/vit C/vit B12/folic (IRON 100 PLUS ORAL) Take by mouth. ??? docusate sodium (Colace) 100 mg Capsule Take 100 mg by mouth 2 times daily. ??? metoprolol succinate XL (Toprol-XL) 25 mg Tablet Sustained Release 24 hr Take 1 tablet by mouthdaily. 90 tablet 2 ??? vit 75/iron/folic/om3 ([id number] FUM-FOLIC AC-OM3 ORAL) Take by mouth. Allergies: Allergies Allergen Reactions ??? Unknown [Unclassified Drug] seasonal Family History: Family History Problem Relation Age of Onset ??? Coronary Artery Disease Unknown ??? Cancer Unknown ??? Type 2 Diabetes Unknown Social History: Social History Socioeconomic History ??? Marital status: Single Spouse name: None ??? Number of children: None ??? Years of education: None ??? Highest education level: None Occupational History ??? None Tobacco Use ??? Smoking status: Former Smoker ??? Smokeless tobacco: Never Used ??? Tobacco comment: smokes weed Vaping Use ??? Vaping Use: Every day Substance and Sexual Activity ??? Alcohol use: Not Currently ??? Drug use: Yes Types: Marijuana ??? Sexual activity: Yes Partners: Male Other Topics Concern ??? None Social History Narrative Unmarried. Lives in [facility] with sons grandparents. Smoking MJ 3x per day - none X 1 month. No ETOH. No other drugs. Social Determinants of Health Financial Resource Strain: Not on file Food Insecurity: Not on file Transportation Needs: Not on file Physical Activity: Not on file Housing Stability: Not on file Vitals: Last value Range last 24 hrs Temperature Temp: 36.9 ??C (98.4 ??F) Temp: [36.5 ??C (97.7 ??F)-36.9 ??C (98.4 ??F)] Heart Rate Heart Rate: 100 Heart Rate: [87-100] Blood Pressure BP: 111/57 BP: (97-113)/(57-66) Respiratory Rate Resp: 16 Resp: [16] SpO2 SpO2: 98 % SpO2: [98 %-99 %] Examination: General: Pleasant, alert, appropriate, conversant, in NAD. Appears stated age. HEENT: conjunctiva nl, anicteric sclera. Moist mucous membranes. Neck: supple Cardiac: Normal S1 and S2, Regular rate and rhythm; No murmurs/gallops/rubs appreciated. Respiratory: Nonlabored. Normal work of breathing while lying flat on room air. Abd: +bowel sounds; wound in place with bandage overlying Ext: no LE edema, cyanosis or clubbing. WWP. SCDs in place. Neuro: CN II-XII grossly intact. Alert, no focal deficits. Skin: No rashes or lesions noted on exposed skin. Laboratory: CBC: Recent Labs 01/16/21 1648 01/02/21 1012 WBC 13.3* 15.1* HGB 11.6* 11.1* PLATELET 300 271 Chemistry: Recent Labs 01/16/21 1648 NA 137 K 3.7 CL 102 CO2 24 BUN 7* CREATININE 0.57* GLUCOSE 76 Recent Labs 01/16/21 1648 CALCIUM 9.4 LFTs: Recent Labs 01/16/21 1648 BILITOT <0.2* ALBUMIN 3.9 ALKPHOS 114* ALT 10 AST 15 Coags: No results for input(s): PT, INR, PTT, FIBRINOGEN, DDIMER in the last 168 hours. Invalid input(s): THROMBIN TIME Cardiac enzymes: Recent Labs 01/17/21 2019 01/16/211647 TROPONINT <0.01 <0.01 Endocrine: No results for input(s): TSH, CORTISOL in the last 7068 hours. Invalid input(s): [id number] Heme: No results for input(s): LDH, HAPTOGLOBIN, URICACID in the last 168 hours. Microbiology: Microbiology Results (Last 30 days) Procedure Component Value Units Date/Time Group B Strep Culture Screen [[id number]] (Abnormal) Collected: 01/16/211656 Lab Status: Final result Specimen: Vaginal/Rectal Updated: 01/17/21 1443 Group B Streptococcus Culture Beta Hemolytic Streptococci, Group B isolated COVID-19 PCR [[id number]] Collected: 01/16/211656 Lab Status: Final result Specimen: Nasopharyngeal Swab Updated: 01/16/212057 SARS-CoV-2 RNA PCR Not Detected Comment: This result should be interpreted in combination with the clinical observations, patient history and epidemiological information. For testing of asymptomatic individuals, assay performance characteristics and clinical utility have not been evaluated. Testing for SARS-CoV-2 (Severe acute respiratory syndrome coronavirus 2, formerly known as 2019 novel coronavirus or 2019-nCoV) to aid in the diagnosis of COVID-19 is performed using the Simplexa COVID-19 Direct Assay by [employer] as authorized by the FDA issued Emergency Use Authorization (EUA). This assay is intended for In-vitro Diagnostic (IVD) use with nasopharyngeal swabs collected from individuals meeting the CDC criteria for testing. The assay is performed based on the instructions for use and additional guidance provided by the FDA. Testing is performed in the Microbiology Laboratory within the Department of Pathology and Laboratory Medicine at [facility], certified under the Clinical Laboratory Improvement Amendments of 1988 (CLIA), 42 U.S.C. section 263a, to perform high complexity tests. Assay performance has been verified according to clinical laboratory regulatory requirements. Test results are provided above. A result of Not Detected indicates that the viral RNA target is not present but does not preclude SARS-CoV-2 infection. False negative results may occur if a specimen is improperly collected, transported or handled; if amplification inhibitors are present; or if inadequate numbers of viral particles are present in the specimen. A result of Detected suggests a current or recent infection and the patient is presumed to be infected. Positive and negative predictive values for this test are highly dependent on disease prevalence. A result of Invalid indicates the inability to conclusively determine the presence or absence of SARS-CoV-2 RNA in the sample which can be due to a variety of factors. Recollection is recommended in the case of an invalid result. CDC COVID-19 criteria for testing on human specimens and clinical management guidance information are available at the CDC Coronavirus Disease 2019 (COVID-19) webpage under Information for Healthcare Professionals (https://www.cdc.gov/coronavirus/2019-ncov/hcp/index.html). Additional information about this and other EUA tests can be found in provider and patient fact sheets at the following FDA website: https://www.fda.gov/medical-devices/twjfcvvpjhf-izehohv-7551-uztko-18-ctzvsbkyv- kjh-xlsankuwusvkmb-mnbirbx-devices/fsaqn-ternnetpohg-dpqt SARS-CoV-2 Source RECORD CHANGER Swab Group B Streptococcus Screen [[id number]] Collected: 01/16/21 1657 Lab Status: Final result Specimen: Vaginal/Rectal Updated: 01/17/21 1443 Group B Strep Screen Pos Diagnostic Studies: Results for orders placed or performed during the hospital encounter of 01/16/21 US OB Follow Up (Exam End: 01/17/2021 11:52 AM) Impression 3rd Trimester Summary Single intrauterine with a gestational age of 32w 6d based on Early Ultrasound (07/16/20) Composite age based on the current ultrasound alone is 33w 4d. Estimated weight corresponds to the 75th percentile for 32w 6d. Current growth parameters are consistent with prior dating indicating normal growth. Amniotic fluid volume is normal Anatomical survey is limited due to the late gestational age. Thank you for letting us participate in the care of this patient. If you are a health care provider and have any questions regarding this report, please contact the number above. For patients who have questions, please contact the health career development specialist that requested your imaging first. Rustam Hoffman, Staff Physician Electronically Signed Final Report 01/17/2021 01:32 pm XR PICC Placement Over 5 Years with Imaging Guidance (IV Team) (Exam End: 01/17/2021 1:54 PM) Impression right PICC, with the catheter tip projected at the region of SVC/RA. Thank you for letting us participate in the care of this patient. If you are a health care provider and have any questions regarding this report, please contact the number below. For patients who have questions please contact the health career development specialist that requested your imaging first. SSMENT: Mary Porras is a 25 y.o. female with a past medical history of with peripartum nonischemic cardiomyopathy (last TTE 01/14 w/ EF of 35%) with a previous high-risk teen pregnancyand now again presenting at 33w now s/p caesarian section with bilateral salpingectomy whois being admitted to the CVCC for monitoring in the post-op setting. Mary is doing well post-op. There are no signs of volume overload on exam. Will maintain her on epinephrine 1mg for six hours for hemodynamic support in the acute post- period before decreasing to 0.5mg. If she does well on 0.5mg, will turn off and pull the arterial line. No current needs for diuresis. PLAN: Neuro: #Pain Control -Acetaminophen and oxycodone available prn -avoid NSAIDs in the setting of HFrEF Respiratory: - No acute issue, satting well on RA. 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 If does okay hemodynamically thenstop it and pull the a-line - Strict I/Os - Daily weights - troponin <0.01 - pro-BNP 70 : - s/p 01/22 - OB to follow for post- assessment Renal: - No acute issue at this time. GI: - No acute issue at this time. - bowel regimen in place Heme/Onc: - No acute issue at this time. ID: - No acute issue at this time. #Other - VTE prophylaxis: heparin subQ - GI prophylaxis: n/a - Lytes: goal K>4, Mg>1 - Diet: NPO diet (Give Meds) - Code Status: Attempt Cardiopulmonary Resuscitation - Inpatient - Dispo: pending clinical course Seth Rush MD PGY-1 Internal Medicine Cardiology S1 , Pager #[phone] 01/22/21 3:13 PM -- CARDIOLOGY ATTENDING NOTE Patient: Mary Porras Date of Service: 01/22/2021 Date of Admission: 01/16/2021 Length of Stay Hospital Day 6 days Please see the above note by Dr. Rush for details. I have interviewed and examined the patient independently and I concur with the assessment and plan as documented, with exceptions/additions/emphases as noted below. The case was discussed on cardiology rounds and we reviewed the plan of care with the team and patient. 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 Given therecent decline in her LVEF, she was electively admitted for steroids for lung maturation which was done over the weekend and today at 33w4d she underwent with delivery of a healthy girl, Ember. Partner/FOB, Trevor, is involved. Per Dr. Greene, Cardio-OB Anesthesia, Mary did wellduring the procedure with an EBL of 500mL, and mild pressor (better response to vaso than levo) and epinephrine requirement. Mary was admitted to the CVCC post for careful monitoring given the fluid shifts in the immediate post- period and her reduced LVEF. She has an epidural inplace, as well as a RRA arterial line and has epinephrine gtt @1. She is tired but not distressed and she has no oxygen requirement. Extremities are WWP with good pulses although her complexion is pale (apparently chronic). Will continue care in the CVCC. No indication for PAC or diuresis at this time. Continue epinephrine for ~6h post-op, then can titrate down to 0.5 and if tolerated, off. Once epi is off, okay to DC arterial line as patient finds it very uncomfortable. Continue metoprolol. Post- assessment as per OB team. If patient remains clinically stable will attempt to re-unite her with her child and partner on the BP tomorrow. Attending Attestation Please see Dr. Rush's note for details of the patient history of presentation and data. I have discussed, reviewed and agree with the documented History, Physical findings, Assessment and Plan of care. I have examined the patient myself and personally reviewed all studies. In addition, I certify thatI am a [facility] credentialed attending provider with admitting privileges and that the patient meets or has met medical necessity to require an inpatient IPI level of care meeting a minimum of two midnights or is on the [facility] inpatient only procedure list (status C) due to: dany- cardiomyopathy withrecent decline and urgent elective delivery via - section requiring hemodynamic support and close monitoring for acute cardiac and hemodynamic deterioration. Malissa Borrero MD Cardiovascular Medicine Personal Pager [phone] 01/22/2021 8:47 PM * Inge Benavides - 01/22/2021 1:22 PM EST Inpatient WHARF OPERATOR - Admission Interval Note I have reviewed the admission H&P completed by Grace Desai on 01/16/21. Condition changed since H&P originally performed. See separate interval daily rounding note forupdates. Inge Benavides MD, PGY-3 01/20/2021 10:37 PM * Grace Desai MD - 01/16/2021 4:10 PM EDT Obstetrical Admission Note Referring Hospital: N/A Referring Provider: N/A Initial Care Provider (if early referral or co-managed by MFM): [facility] Chief Complaint: Mary Porras was admitted today for antepartum and medical management of interval reduced systolic function with known cardiomyopathy. Mary Porras is a 25 y.o. at 32w5d weeks gestation admitted at the request of MFM & Cardiology for betamethasone, NST, and cardiology consultation given recent reduction in systolic function (45 to 35%) on TTE. On interview, patient endorses significant 2 week SOB, triggered with light activities (eg. packingher bags). Associated with LE bilateral calf swelling and ~60 lb weight gain during this .Endorses recreational marijuana vaping 1-2x/day during this . Denies associated CP, syncope, orthopnea, PORTER, vision changes, recent viral illnesses, GI or symptoms. From a labor standpoint, No VB. No ctx. No LOF. Good mvt. Her sBP has been in 100s. Currentlytaking Metoprolol XL 25 mg qHS and was recently asked to start digoxin per Cardiology. She has not gotten chance to bulk picker Digoxin 250 mcg BID from the pharmacy. Her has been complicated by the following: ?? 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 Has been ?? TTE (01/14/21): Severely dilated LV. EF 35% (reduced from 54% in 12/10/20). Diffuse hypokinesis, except for basal anterolateral & inferolateral segments nl. ?? OB Hx: prior pLTC/S at 37w0d. Review of Systems- Negative to complete review except as noted in the HPI. Obstetric Review of Systems Total Weight Gain this 29 kg (64 lb) Movement: normal Contractions: none Leaking: None Bleeding; none now Preeclampsia signs and symptoms: None Active Hospital Problems Diagnosis ??? Cardiomyopathy, peripartum, antepartum Resolved Hospital Problems No resolved problems to display. Active Non-Hospital Problems Diagnosis ??? 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 Chronic systolic heart failure ??? Supervision of high risk in third trimester ??? Sinus tachycardia ??? Cardiomyopathy ??? High risk teen Past Medical History: Diagnosis Date ??? 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 CENTRAL VENOUS CATHETER ??? PRO DELIVERY ONLY 10/08/2013 @ DELIVERY performed by Meri Zimmerman MD at [facility] MAIN OR OB History 4 Para 1 Term 1 AB 2 Living 1 SAB IAB 2 Ectopic Multiple Live Births 1 # Outc Date GA Lbr Elvis/2nd Wgt Sex Del Anes PTL Lv 1 IAB 2 IAB 3 Term 09/2013 37w0d 3.01 kg (6 lb 10.2 oz) M LWR SEG ROSARIO EPI Living 4 Current Medications Prior to Admission Medication Sig Dispense Refill Last Dose ??? magnesium 250 mg Tablet Take by mouth. 01/16/2021 at Unknown time ??? iron,carb/vit C/vit B12/folic (IRON 100 PLUS ORAL) Take by mouth. 01/16/2021 at Unknown time ??? docusate sodium (Colace) 100 mg Capsule Take 100 mg by mouth 2 times daily. 01/16/2021 at Unknown time ??? metoprolol succinate XL (Toprol-XL) 25 mg Tablet Sustained Release 24 hr Take 1 tablet by mouthdaily. 90 tablet 2 01/15/2021 at 1900 ??? vit 75/iron/folic/om3 ([id number] FUM-FOLIC AC-OM3 ORAL) Take by mouth. 01/16/2021 at Unknown time ??? digoxin (Lanoxin) 125 mcg (0.125 mg) Tablet Take 2 tablets by mouth daily. 90 tablet 3 Unknown at Unknown time Allergies Allergen Reactions ??? Unknown [Unclassified Drug] seasonal Family History Problem Relation Age of Onset ??? Coronary Artery Disease Unknown ??? Cancer Unknown ??? Type 2 Diabetes Unknown Social History Occupational History ??? Not on file Tobacco Use ??? Smoking status: Former Smoker ??? Smokeless tobacco: Never Used ??? Tobacco comment: smokes weed Vaping Use ??? Vaping Use: Every day Substance and Sexual Activity ??? Alcohol use: Not Currently ??? Drug use: Never ??? Sexual activity: Yes Partners: Male Immunization History Immunization History Administered Date(s) Administered ??? Influenza Vaccine PF, Quadrivalent 01/02/2021 ??? Tdap Vaccine 01/02/2021 Last Set of Vitals: BP 109/66 Pulse 93 Temp 36.7 ??C (98.1 ??F) Ht 177.8 cm (5' 10) Wt 95.7 kg (211 lb) GrE765% BMI 30.28 kg/m?? Physical Exam: Gen: AAO, NAD Cardio: nl rhythm, S1, S2, no M/C/R/G Pulm: CTA BL, no W/C/R Abd: +BS, soft, NT, ND, gravid Ext: warm, well-perfused, no KATHERINE or calf tenderness Neuro: grossly intact Uterine Size: S=D Clinical EFW: 4.5 lb by Robby Sterile Speculum: not indicated Cervix Exam: not indicated at this time Pelvis: average Presentations: cephalic by BSUS Heart Rate Interpretation: Baseline: 130, Variability: moderate, Accels: yes, Decels: none, [place]: none Category: I Record Review Labs Lab Results Component Value Date ABORH B Pos 10/05/2013 HCT 34.5 (L) 01/02/2021 HGB 11.1 (L) 01/02/2021 MCV 90.8 01/02/2021 HEPBSAG Negative (External Lab) 06/22/2013 RUBLIGG Immune (External Lab) 06/22/2013 HIV12 Negative (External Lab) 06/22/2013 GCAMP Negative 10/05/2013 CHLMGENE Negative 10/05/2013 AST 19 09/19/2013 Lab Results Component Value Date [id number] 106 (External Lab) 08/24/2013 Lab Results Component Value Date GBSSCREEN Neg 10/04/2013 Assessment & Plan Mary Porras is a 25 y.o. at 32w5d gestation being admitted for antepartum monitoring for cardiocascular optimization and management given recent finding of significant decline in systolic dysfunction in the setting of known dilated non-ischemic cardiomyopathy. Patient is currently HDS on room air, no s/s of right heart failure, and asymptomatic from a cardiopulmonary standpoint. Not currently in labor. Admission NST stable. 1. Antepartum & cardiovascular monitoring -Labs: CBC, T&S, CMP, EKG, BNP, Troponin -Delivery indications: ?? Pending multidisciplinary discussion between Anesthesiology, OBGYN, and Cardiology ?? At this time, patient is still undecided about vs. section, given prior traumatic with previous C/S. -Tocolysis: Not indicated -GBS status: unknown, ordered GBS collection - status: NST daily, Ultrasound Growth Follow up ordered -Steroid status: ordered betamethasone 12 mg x 2 doses for lung maturity -Magnesium for neuro protection: Not indicated -Consultations: ?? Neonatology: for patient counseling re: implications of delivery ?? Anesthesiology: for neuraxial & fluid recommendation during laboring, vaginal or surgical delivery. ?? Cardiology: for optimization of heart failure medications, fluid management, cardiovascular demand strain during antepartum monitoring, labor, vaginal or surgical delivery. -Consents obtained: not completed at this time. Need C/S and Acute Opioid Consents. 2. Dilated non-ischemic cardiomyopathy: ?? Ordered home Metoprolol XL 25 mg qHS. 3. contraception plan: not discussed at this time. 4. Hemorrhage Risk: Medium for prior C/S. This patient was seen and discussed with Dr. Whtilock, Attending WHARF OPERATOR. Bri No MD 01/16/2021 I have seen and examined the patient, providing smith components as outlined below. I have reviewed the resident???s above note; my evaluation of the patient is below: 32 5/7 weeks dilated cardiomyopathy with worsening LVEF. Has had some CAMPUZANO and LE edema. Denies CP, palps, orthopnea and PND. Has had 60 lb weight gain. (gained 170 lbs in her last . FM felt, no LOF, no bleeding or robbin. BP 109/66 Pulse 93 Temp 36.7 ??C (98.1 ??F) Ht 177.8 cm (5' 10) Wt 95.7 kg (211 lb) QqM639% BMI 30.28 kg/m?? NAD Lungs CTA AP CV RRR, no MRG Abdomen soft, NT Uterus NT Ext trace edema I/R 32 5/7 weeks with dilated cardiomyopathy status reassuring QD NST Will give BMZ as increased chance of needing delivery Cardiology consult. Attempt to improve cardiac function. Continue metoprolol. EKG, Labs. Anesthesia consult Long discussion about vs RCS. She is fearful of a RCS as her previous CS was emergent and she inquired as to whether she was in danger during that CS. We reviewed the risk and benefits of each. James RIVAS GRACE DESAI MD documented in this encounter Procedure Notes * Yanely Schuler RN - 01/17/2021 2:05 PM EDTAssociated Order(s): PLACE PICC LINE: CONTACT VASCULAR ACCESS PICC/Midline Insertion Procedure Note Indications: Medication Administration This insertion was not to replace a malfunctioning catheter. This insertion was not due to a suspected line-associated infection. Location of Procedure: X-Ray Room 11 Risks and Benefits: The risks and benefits of this procedure were reviewed and informed consent was obtained obtained. Time Out: Prior to the start of the procedure, the patient's identity, intended procedure, site/side, correctpatient positioning and presence of the site jaxon was confirmed as applicable. The medical history and chart were reviewed to rule out potential contraindications to the planned procedure. Hand Hygiene: The certified control systems technician did perform hand hygiene prior to line insertion. Catheter type: PICC Lot number: [id number] Procedure Technique: Skin was prepped with chlorhexidine. Skin preparation agent was completely dry at the time of first skin puncture. The following barrier precaution methods were used:large sterile drape, maske/eye shield, large sterile gown, sterile gloves and cap. 3 ml of 1% Lidocaine was used for skin wheal. Ultrasound was used for guidance. Radiographic contrast agent was not injected for vein identification. Procedure Details: Order received for catheter placement. A 5 Fr. double lumen Bard Power catheter was placed into theright basilic vein over a 0.018 inch guidewire using modified seldinger technique and fluoroscopy. Arm circumference was 29 cm at 2 cm above the insertion site. Final catheter length (with trimming): 38 cm Internal: 38 cm External: 0 cm Tip in SVC per Flory The line was not placed over a guidewire. Post Procedure: Diagnosis: Cardiomyopathy Blood return noted on aspiration of line after placement confirmed. 5 mls of normal saline infused free flowing to gravity via PICC after insertion. Sterile dressing applied: CHG Impregnated Tegaderm. Findings: The patient did tolerate the procedure well. No Complications. Procedure Comments: YANELY SCHULER RN 01/17/2021 documented in this encounter Nursing Notes * Lana Freeman RN - 01/22/2021 4:03 PM EST of live baby girl at 1524 8 and 9 documented in this encounter Miscellaneous Notes * Consult Note - Anton Márquez MD - 01/24/2021 6:06 PM EST Images from the original note were not included. CARDIOVASCULAR AND REPRODUCTIVE MEDICINE PROGRESS NOTE Primary Care Provider: GABRIELLA Mayer Referring: No referring provider defined for this encounter. Mary Porras is a 25 y.o. female who is here for iatrogenic early induction of labor due to progressive maternal cardiomyopathy with moderate systolic dysfunction and dilation. I discussed her care with Dr. Hoffman in the outpatient setting last week. Mary had written to me about progressive lower extremity edema and was found to have an LVEF which had reduced from 54 to35% with an LV end-diastolic dimension increasing from 4.9 to 5.9 cm. On arrival her BNP was 77 andher exam was reasonably euvolemic and compensated. She received steroids for lung maturation and subsequently underwent delivery for combined maternal and obstetric indications (progressive left ventricular systolic dysfunction, prior prolonged stage II of labor with arrest of delivery). She was seen by our heart failure attending Dr. Toledo and multidisciplinary discussion was had with our [facility] colleagues. She underwent successful delivery to live-born baby girl on 01/22/2021. I personally spoke to her about her options for medical therapy for her left ventricular systolicdysfunction. Option 1) use metoprolol succinate, enalapril, and spironolactone, which are all safe during breast- feeding. Option 2) forego breast-feeding and initiate Entresto as part of her medical therapy. We discussed the limited evidence to support a rationale for Entresto with progressive cardiomyopathy during . Entresto has been shown to be superior to other RASi like enalapril andother cardiomyopathies. She had a desire to attempt breast-feeding with the contingency that shouldher symptoms are systolic dysfunction progress we transition to therapies that have been shown to be slightly superior like Entresto and possibly an SGLT2 inhibitor. She was monitored overnight in the [facility] without incident and [facility]. Her weight on admission was 216 pounds and BNP 77. Her weight today is 206 pounds. She has been up and walking and denies cardiac symptoms. Over the past day, she has had no chest pain, dyspnea, orthopnea, or PND. Her lower extremity edemahas significantly improved post delivery. Her JVD is noted 3 cm above the clavicle at 45 degrees suggesting a right atrial pressure of 8. There have been no significant new findings on telemetry. MEDICATIONS: Scheduled Meds: ??? [START ON 01/25/2021] metoprolol succinate XL 25 mg Oral Daily ??? enalapriL 5 mg Oral Nightly ??? sertraline 25 mg Oral Daily ??? lidocaine 1 patch Transdermal Q24H And ??? lidocaine 1 patch Transdermal Q24H ??? acetaminophen 650 mg Oral Q6H MIKA ??? docusate sodium 100 mg Oral BID ??? heparin (porcine) 5,000 Units Subcutaneous 2 times per day ??? melatonin 12 mg Oral Nightly ??? sodium chloride 0.9 % (flush) 5 mL Intravenous BID Continuous Infusions: PRN Meds:.oxyCODONE OR oxyCODONE, polyethylene glycoL (MIRALAX) oral powder, simethicone, lidocaine, sodium chloride 0.9 % (flush), lidocaine, ondansetron, calcium carbonate EXAMINATION: Last value Range last 24 hrs Temperature Temp: 36.9 ??C (98.4 ??F) Temp: [36.8 ??C (98.2 ??F)-36.9 ??C (98.4 ??F)] Heart Rate Heart Rate: 75 Heart Rate: [68-102] Blood Pressure BP: 110/69 BP: (110-122)/(69-82) Respiratory Rate Resp: 17 Resp: [16-17] SpO2 SpO2: 98 % SpO2: [96 %-100 %] Well appearing, in no distress Skin: warm and dry. HEENT: benign Neck: Carotid upstrokes and amplitudes normal. No bruits. Chest: Clear to auscultation Cor: Normal S1 and S2. No murmurs, gallops, rubs, thrills, lifts, heaves. Abdomen: benign. Normal bowel sounds. Extremities: No edema. Pulses normal. Neuro: grossly nonfocal. LABS: Electrocardiogram: 01/17/2021 shows normal sinus rhythm with normal intervals and no ST changes. TTE: 01/14/2021: The quantitative leftventricular ejection fraction by biplane Higginbotham's method is 35%. Thereis diffuse hypokinesis present. Lab Results Component Value Date WBC 11.2 (H) 01/24/2021 HGB 10.4 (L) 01/24/2021 HCT 32.6 (L) 01/24/2021 PLATELET 181 01/24/2021 ALT 10 01/16/2021 AST 15 01/16/2021 NA 136 01/24/2021 K 4.2 01/24/2021 CL 104 01/24/2021 CREATININE 0.59 (L) 01/24/2021 BUN 15 01/24/2021 CO2 24 01/24/2021 TSH 1.23 06/30/2013 GLUCFASTING 81 10/10/2013 IMPRESSION: 1. 25-year-old female with a history of myocarditis in infancy with recurrent peripartum cardiomyopathy and left jugular systolic dysfunction who was brought in for induction of labor due to progressive systolic dysfunction and symptomatic heart failure. Increased preload, increased afterload, and increased cardiac output in the early periodincrease the risk of developing pulmonary edema. PLAN: -Start enalapril 5 mg tonight -Consolidate metoprolol tartrate to metoprolol succinate 25 mg XL daily tomorrow morning -Continue continuous telemetry monitoring. This is helpful for us to estimate her risk of ventricular arrhythmias with her left ventricular systolic dysfunction. So far there has been no significant ventricular ectopy. There has been no NSVT or high risk findings. -If Mary tolerates enalapril tonight and metoprolol tomorrow morning (has no obvious change to blood pressure no dizziness) would initiate spironolactone 12.5 mg in the afternoon tomorrow. -Please obtain proBNP and BMP with standing weight tomorrow morning. Our cardiology service will come to examine her to confirm relative euvolemia. -From a cardiac perspective she is still at risk for exacerbation of her heart failure as her systemic vascular resistance, preload, and cardiac output rise post delivery. Would aim to discharge Wednesday morning after making the medication adjustments above. -I will ask my scheduling team to have her see me next week in the office on Wednesday or Wednesday to check in. She is staying at [facility] while her daughter Debbie is monitored at [facility]. . * Note - Susannah Malik RN - 01/24/2021 12:31 PM EST This note was copied from a baby's chart. I met with this family today. Per mom she plans to pump/breast feed this baby. She states she did have breast changes and leaked colostrum during this . I set mom up with a pump and pump kit. She understands to drive in her full milk supply she will need to double pump with the hospital garde pump 8-12 times in a 24 hour day for about 15 minutes. Mom was sized down to a 21 mm flange. She believes she plans to stay at [facility] once discharged. I explained there are hospital garde pumps at her baby's bedside and at [facility], but they an reach out to the insurance case manager in the ICN to discuss options about obtaining a hospital grade pump. RECOMMENDATIONS: Breast massage and hand expression before and during pumping [place] oil to nipples prior to pumping Pump at least 8-10 times per 24 hours and record in pumping log provided Frequent and prolonged maternal-infant skin to skin contact when possible Encouraged mother to let nurse know if pain with pumping develops Close support and follow up Susannah Malik RN, IBCLC Feather Trimmer [facility] Services * Consult Note - Cami Miranda APRN - 01/23/2021 12:20 PM EST BIT Evaluation Referral source: Consult request by primary team physician Reason for referral: Anxiety This staff writer introduced myself and reviewed my role with the BIT team. Patient was very open to additional support during this difficult time. She is missing her baby. Her partner was present and supportive. As we began evaluation patient was notified she was being transferred back to . This staff writer made partner aware that patient may ask for BIT to be contacted tomorrow for additional support ( this staff writer had to start outpatient clinic). Otherwise, I will return Wednesday to discuss ways this staff writer could be helpful. Keena Miranda, PMHNP [facility] - [facility] (Behavioral Intervention Team) Dept. of Psychiatry - Inpatient Psych. Services Pager: [phone] * Op Note - Inge Benavides - 01/22/2021 6:03 PM EST [facility] Operative Note Patient Name: Mary Porras : [id number] MR#: [id number] ?? Case Date: 01/22/2021 ?? Surgeon: Surgeon(s) and Role: * Rustam Hoffman MD - Primary * Inge Benavides MD - Resident ?? Preoperative diagnosis: non ischemic cardiomyopathy, ?? Postoperative diagnosis: non ischemic cardiomyopathy, ?? Procedure(s) (LRB): @ DELIVERY (WRVU 16.13) (Midline) @SALPINGECTOMY (WRVU 12.95) (Bilateral) ?? Repeat low transverse section, bilateral salpingectomy ?? Anesthesia: Epidural ?? Findings: Live female infant in cephalic position, clear fluid, APGARS 8 and 9 per pediatric team, normal appearing uterus, tubes, and ovaries. Minimal adhesions. ?? Complications: none ?? Estimated Blood Loss: 500 mL ?? Specimens removed during surgery: placenta, bilateral fallopian tubes (sent separately) Fluids: 450mL crystalloid ?? PRBCs: none (See Anesthesia Record/Report for Other Blood Products) Urine Output: 350 mL ?? Drains: Christianson ?? Disposition: regional anesthesia administered without incident, transferred to cardiovascular care unit ?? Condition: doing well without problems ?? (Please see the Surgical Encounter Summary for any Implant and Specimen details pertinent to this patient.) ?? Infection Bundle used? Yes Obstetric Infection Bundle: ?? Case Acuity: Elective case Chlorhexidine shower night before surgery?: (not recorded) Chlorhexidine shower morning of surgery on BP?: (not recorded) 2 % Chlorhexadine-alcohol skin prep: Yes Vaginal prep povidone -iodine scrub: Yes Pre op IV antibiotics: Ancef Preop antibiotics given between 15-60 minutes prior to incision? Yes Evidence of chorioamnionitis: No Intra-op antibiotic re-dose (for surgery length >3 hours or EBL >1500cc): N/A Closure of subcutaneous tissue > 2 cm: Yes Subcuticular skin closure: Yes ?? Dr. Hoffman was present and scrubbed for the entire case (does not need to include opening and closing). HPI/Surgical Indications: Mary Porras is a 25-year-old at 33 weeks 4 days who was admitted on 01/16/21 for observation optimization of her longstanding nonischemic dilated cardiomyopathy which has recently worsened in the setting of her third trimester . Her ejection fractionwas 35% which prompted admission to the hospital. After discussion between the cardiology and obstetrics teams, decision was made to proceed with delivery this week in order to allow for optimizationof her cardiovascular function. She was given betamethasone for lung maturity and decision was made for repeat with bilateral salpingectomy for permanent sterilization at the patient request. Risks and benefits of the procedure were discussed in detail informed consent was signed and placed in the chart. Procedure Description: The patient was taken to the Main Operating Room with IV fluids running where an arterial line was placed and epidural anesthesia was placed. The epidural level was achieved slowly per anesthesia team to minimize hemodynamic changes. The patient was given 2 gm of Ancef. The patient was placed in the dorsal supine position with a leftward tilt. SCD's were placed and operating. Christianson catheter was placed into the bladder. The patient was then prepped and draped in the usual sterile fashion. NICU team was assembled. A surgical timeout was performed with all parties in agreement. After epidural anesthesia was confirmed adequate, a Pfannenstiel skin incision was made with a scalpel and carried through to the underlying layer of fascia with the Bovie and blunt dissection. The fascia was nicked in the midline with the scalpel and the incision was extended laterally with the curved Ascencio scissors. The superior aspect of the fascial incision was then grasped with Kostas clamps,elevated, and the rectus muscle was dissected off with blunt dissection and curved Ascencio scissors. Attention was then turned to the inferior aspect of the fascial incision, which was grasped with Kostas clamps, elevated and the underlying rectus and pyramidalis muscles were dissected off in a similar fashion to the level of the pubic symphsis. The rectus muscles were then in the midline and the peritoneum identified and entered digitally. The peritoneal incision was extended with bluntdissection and lysis of the median urachus on the right with the Bovie. The bladder blade was then inserted and the vesicouterine peritoneum identified, grasped with pickups and entered sharply with Metzenbaum scissors. This incision was then extended laterally and the bladder flap created digitally. The bladder blade was replaced and the lower uterine segment incised in a curving transverse fashion with a scalpel. The hysterotomy was extended with upward and downward traction. The bladder blade was then removed and a hand inserted into the uterus. After the head was brought to the hysterotomy, gentle fundal pressure was applied to facilitate delivery of infant. There was a nuchal cord x 1 which reduced easily. The head and shoulders delivered easily. Liveborn female infant was delivered. The cord was doubly clamped and cut. [facility], who assigned Apgars of 8 and 9 and weight was 2080g. Oxytocin was initiated to facilitate uterine contractions. The placenta was then expressed. The uterus then exteriorized and cleared of all clots and debris. Moderate uterine tone was noted, but bleeding from the hysterotomy was controlled. The uterine incision was repaired with 0-Vicryl in a continuous locked fashion. A second layer of the same suture wasused to imbricate the first layer. The tone became boggy but continued to improve with massage and pitocin administration. Excellent hemostasis was appreciated at the hysterotomy. Attention was turned to the fallopian tubes. The left fallopian tube was elevated with Daryl clamps and the Ligasure was used to dessicate and divide the tube from the mesosalpinx along its length. The tube was dessicated and divided at the uterine cornua and the excised fallopian tube was sent for permanent pathology. This same procedure was repeated on the right. The mesosalpinx was hemostatic. The uterus was returned to the abdomen. There hysterotomy and bilateral salpingectomy pedicles were all found to be he mostatic. The bladder flap and fascial surfaces were checked and all found to be hemostatic. The fascia was reapproximated with 0-Vicryl in a running fashion. The subcuticular space was well irrigated. The subcuticular space was loosely reapproximated with 2-0 plain gut suture. The skin was then closed with subcuticular 4-0 Monocryl. Dermabond was applied over the incision. The uterus was expressed of clots. The patient tolerated the procedure well and was in stable condition at its conclusion.The was taken to the ICN after delivery for stabilization and monitoring in the setting of prematurity. Sponge, lap and needle counts were correct times three at case close. The patient was taken to the cardiovascular ICU for planned postoperative admission in stable condition. Prophylactic antibiotics: 2 gm Ancef DVT Prophylaxis: SCD's Dr. Rustam Hoffman, attending blast furnace blower, was present for the entire case without conflicting clinical responsibility. Inge Benavides MD, PGY-3 01/22/2021 9:14 PM Associated attestation - Rustam Hoffman MD - 01/23/2021 7:55 AM EST Attestation: Case Date: 01/22/2021 I was present and I participated during the entire procedure (does not need to include opening and closing). Rustam Hoffman MD 01/23/2021 * L&D Delivery Note - Inge Benavides - 01/22/2021 5:00 PM EST Delivery Note Mary Porras is a 25 y.o. year old woman at 33w5d weeks gestational age with longstanding nonischemic dilated cardiomyopathy which has recently worsened in the setting of her third trimester . Her ejection fraction was 35% which prompted admission to the hospital. After discussion between the cardiology and obstetrics teams, decision was made to proceed with delivery this week in order to allow for optimization of her cardiovascular function. The procedure resulted in the delivery of a liveborn female with Apgars of 8/9 and a weight of 2080g. The uterus, tubes and ovaries were normal. Bilateral salpingectomy was performed at the time of surgery. Estimated blood loss was 500mL. There were no complications. Please see operative note for more details. Cord gases: Results for CHRISTIANO PORRAS ( ) as of 01/23/2021 10:43 Ref. Range 01/22/2021 15:24 pH Cord Art Unknown 7.35 pCO2 Cord Art Latest Units: mmHg 39 pO2 Cord Art Latest Units: mmHg 31 BE Cord Art Latest Units: mmol/L -4.4 O2HB Cord Art Latest Units: % 72.9 pH Cord Odin Unknown 7.31 pCO2 Cord Odin Latest Units: mmHg 55 pO2 Cord Odin Latest Units: mmHg 21 BE Cord Odin Latest Units: mmol/L 0.8 O2HB Cord Odin Latest Units: % 47.8 Dr. Hoffman, attending physician was present for the entire surgery without conflicting clinical responsibility. Inge Benavides MD, PGY-3 01/22/21 Information for the patient's : Christiano Porras [[id number]] DELIVERY SUMMARY FOR Christiano Porras (please note there is a separate summary for each fetus) 01/22/2021 3:24 PM by Lower Segment Transverse Sex: female Gestational Age: 33w4d Labor Events labor?: No GBS colonized: positive GBS prophylaxis: adequate steroids: Full Course Labor onset type: section without labor Maternal procedures with delivery: tubal ligation Mother Delivery Surgical or additional est. blood loss (mL): 500 Combined est. blood loss (mL): 500 Delivery () Delivery Date: 01/22/21 Delivery Time: 3:24:00 PM Sex: Female Presentation: Vertex Attempted ?: No Delivery Type: Delivery Type (Specific): Lower Segment Transverse Major Indications - : maternal medical condition Delivery Comment: maternal peripartum cardiomyopathy Shoulder Dystocia Shoulder dystocia present?: No Delivery Information Delivery Location: OR Delivering Clinician: Inge Benavides MD Other Personnel: Provider Role Chanda Parra, hose coupling joiner Nurse Rustam Hoffman MD Nursery Manager Delivery Assist Anesthesia Method: Epidural Cord Vessels: Unknown Complications: Nuchal x 1 Gases Sent?: Yes Cord Insertion: eccentric Assessment & APGARS Apgars 1 Minute: 5 Minute: 10 Minute 15 Minute 20 Minute Skin Color: 1 1 Heart Rate: 2 2 Reflex Irritability: 2 2 Muscle Tone: 1 2 Respiratory Effort: 2 2 Total: 8 9 Apgars Assigned By: JERRY LARES MD Resuscitation Method: Suctioning, PPV Suctioning Method: bulb syringe Resuscitation Comment: Became tachypneic with retractions, sats in the low 80s so given CPAP of 6 around 6 mol during transport Maternal [place] Feeding and Skin to Skin No data filed [place] Medications No data filed Measurements Weight: 2080 g Placenta No data filed Labor Length No data filed * Brief Op Note - Inge Benavides - 01/22/2021 4:37 PM EST Brief Operative Note Patient Name: Mary Porras : [id number] MR#: [id number] Case Date: 01/22/2021 Surgeon: Surgeon(s) and Role: * Rustam Hoffman MD - Primary * Inge Benavides MD - Resident Preoperative diagnosis: non ischemic cardiomyopathy, Postoperative diagnosis: non ischemic cardiomyopathy, Procedure(s) (LRB): @ DELIVERY (WRVU 16.13) (Midline) @SALPINGECTOMY (WRVU 12.95) (Bilateral) Repeat low transverse section, bilateral salpingectomy Anesthesia: Epidural Findings: Live female in cephalic position, clear fluid, APGARS 8 and 9 per pediatric team, normal appearing uterus, tubes, and ovaries. Minimal adhesions. Complications: none Estimated Blood Loss: 500 mL Specimens removed during surgery: placenta, bilateral fallopian tubes (sent separately) Fluids: 450mL crystalloid PRBCs: none (See Anesthesia Record/Report for Other Blood Products) Urine Output: 350 mL Drains: Christianson Disposition: regional anesthesia administered without incident, transferred to cardiovascular care unit Condition: doing well without problems (Please see the Surgical Encounter Summary for any Implant and Specimen details pertinent to this patient.) Infection Bundle used? Yes Obstetric Infection Bundle: Case Acuity: Elective case Chlorhexidine shower night before surgery?: (not recorded) Chlorhexidine shower morning of surgery on BP?: (not recorded) 2 % Chlorhexadine-alcohol skin prep: Yes Vaginal prep povidone -iodine scrub: Yes Pre op IV antibiotics: Ancef Preop antibiotics given between 15-60 minutes prior to incision? Yes Evidence of chorioamnionitis: No Intra-op antibiotic re-dose (for surgery length >3 hours or EBL >1500cc): N/A Closure of subcutaneous tissue > 2 cm: Yes Subcuticular skin closure: Yes Dr. Hoffman was present and scrubbed for the entire case (does not need to include opening and closing). Inge Benavides MD, PGY-3 01/22/2021 4:40 PM * Plan of Care - Sheela Lorenzo RN - 01/21/2021 12:35 AM EST OUTCOME EVALUATION NOTE: OUTCOME SUMMARY: Vital signs stable, on telemetry for cardiomyopathy rhythm is NSR and sinus tachycardia, chlorhexidene scrub done in preparation for tomorrow. No c/o of chest pain or pressure PLAN MOVING FORWARD: Continue to monitor NPO after midnight INDIVIDUALIZED FALL PREVENTION INTERVENTIONS: Patient-specific fall risk factors per assessment: [current deficits]: none Assistance [level of assistance required for transfers and ambulation]: not needed Supervision [direct monitoring required during toileting and ADLs]: independent Surveillance [continuous indirect monitoring]: purposeful rounding CPG GOAL OUTCOME EVALUATION: * Plan of Care - Christa Prasad RN - 01/20/2021 6:29 AM EST OUTCOME EVALUATION NOTE: OUTCOME SUMMARY: Patient has been doing well overnight without any new complaints. Reports +FM. Denies VB, LOF, contractions, or cramping. Patient had a reactive NST yesterday. Patient denies pain and has been updated on the plan of care. On telemetry NSR throughout the night, with periods of tachycardia when walking. New IV placed this morning per MD request. PLAN MOVING FORWARD: Continue to monitor maternal and status, placing on EFM prn. Monitor VS as ordered and prn. Patient agrees to call for any changes or concerns. INDIVIDUALIZED FALL PREVENTION INTERVENTIONS: Patient-specific fall risk factors per assessment: [current deficits]: None. Assistance [level of assistance required for transfers and ambulation]: Independent. Supervision [direct monitoring required during toileting and ADLs]: Independent. Will call if dizzyor in need of assistance. Surveillance [continuous indirect monitoring]: Call núñez is within reach. Rounding completed by this RN. Patient-specific fall prevention interventions for sensory deficits provided, if applicable: [X] N/A CPG GOAL OUTCOME EVALUATION: * Plan of Care - Sheela Lorenzo RN - 01/18/2021 1:18 AM EDT OUTCOME EVALUATION NOTE: OUTCOME SUMMARY: Pt c/o of chest tightness and pain MD in room cardiology consulted, EKG showed sinus tachycardia, labs WNL, given her dose of metoprolol, symptoms went away PLAN MOVING FORWARD: Continue to monitor, meds as ordered INDIVIDUALIZED FALL PREVENTION INTERVENTIONS: Patient-specific fall risk factors per assessment: [current deficits]: none Assistance [level of assistance required for transfers and ambulation]: not needed Supervision [direct monitoring required during toileting and ADLs]: independent Surveillance [continuous indirect monitoring] Purposeful rounding CPG GOAL OUTCOME EVALUATION: * Consult Note - Jose C Winter MD - 01/17/2021 4:59 PM EDT Requested by Rubi Tejeda MD to provide a consult to Mary Porterckett and discuss the anticipated evaluation and management of an infant born at 32 weeks gestation. 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 She is receiving her second dose of betamethasone this evening. has been complicated by reduced maternal systolic function in setting of dilated cardiomyopathy. I met with Mary and her partner Trevor. They are anticipating the of a daughter named Debbie.She is planning on her infant. We also discussed that parents are considered to be part of the care team and are welcome in the ICN at all times. We discussed the general care and management of an born at 32 weeks gestation, including respiratory distress syndrome, feeding immaturity, thermoregulatory immaturity. We also discussed the potential need for procedures including intubation and umbilical catheter placement. They had no further questions, and I reassured them that a member of the ICN team would be available to come back and address any further questions regarding the care of their son/daughter Jose C Winter MD 01/17/2021 * Plan of Care - Yanely Schuler RN - 01/17/2021 2:05 PM EDT Peripherally Inserted Central Catheter (PICC) Teaching Sheet Peripherally inserted central catheters (tumo-ye-twrc) (PICC) are used when you need IV (intravenous) medicines and fluids. A catheter is a small flexible plastic tube. The catheter is put in througha vein under your skin. A vein is a tube inside your body that carries blood from the body to the heart. The catheter is usually put into a vein on the inside of your upper arm. Then it is threaded up this vein and ends in the blood vessel near your heart. The PICC catheter may be used for taking blood for laboratory tests. You may also get IV fluids andmedicines quickly and easily. Having the catheter may keep your arm from being stuck many times with a needle. The catheter will have 1-3 small tails (tubes) coming from your arm where the catheter was put in. Why do I need a PICC line or midline catheter? PICC lines are used for alf treatments. PICC lines may be used for up to a year. They are often put in to give you IV medicines at home. You may need a PICC catheter because caregivers cannot use smaller veins in your body. Smaller veins may be damaged, or they may have poor blood flow. Catheters are also used in case of emergency when you would need medicines or fluids very quickly. The following are medicines and treatments you may get when you have a PICC line. ?? Antibiotics. These are medicines to prevent infection. ?? Frequent blood sample collection. ?? IV medicines that would make your smaller veins sore or damaged. ?? Receiving IV fluids for a long period of time. ?? Pain medicine. ?? Total Parenteral Nutrition: This is also called TPN. TPN is a special liquid food that goes directly into your veins. ?? Blood ?? Chemotherapy (Medicine for cancer) What are the benefits of having a PICC line put in? Having a PICC line may keep your arm from being stuck many times with a needle to draw blood or start an IV (intravenous catheter) . Through a PICC catheter, you may have blood taken for tests. You may also get IV fluids and medicines quickly and easily. Small veins can be damaged or irritated by certain drugs or nutritional solutions. A PICC line helps to decrease vein irritation from antibiotics, IV pain drugs, or IV cancer drugs. A PICC line can be left in place when you go home. If you go home with a PICC line in place, home care can be set up via the nurse [employer]icker to help you. What are possible complications of having a PICC line put in? Some possible complications are: bruising, swelling, or infection in the arm with the PICC line mal-positioned catheter (catheter tip in wrong place) occlusion (blocked catheter) mechanical phlebitis (vein irritation) and thrombosis (clot) Your doctor is the person you should talk to if you have questions about what would happen if you do not choose to have a PICC line put in. Your doctor can talk to you about other choices you may have. What should I expect when it is put in? A written consent that gives your ok to have it put in needs to be signed after you understand thatyou are going to have a PICC put in, and all your questions about the procedure have been answered to your satisfaction. This is a safety feature that the hospital practices before doing procedures. An experienced nurse who has been through special training and education will be putting this catheter in. The procedure is done in a specially equipped room in Interventional Radiology on the third floor. The PICC nurse will first talk to you about any questions that you may have. The PICC nurse will explain to you what is going to be done before starting. Once you arrive in the procedure room in Interventional Radiology, the PICC nurse will then set up for the procedure. She will unwrap the sterile kit and open the needed supplies. A gown and mask andgloves will be worn while putting it in. An ultrasound machine will be used to help guide the catheter in the right place. This machine uses a handle with sound waves to find the vein. The area on your arm where the catheter will be put in is then numbed with a medicine put under your skin with a tiny needle. The nurse will then put in the catheter using fluoroscopy (a type of x-ray) as a guide. Once the catheter is in your vein, it will be threaded up your arm to the area beforeyour heart. While it is being threaded, you may be asked to turn your head. When the catheter is in, the nurse will place a small dressing on the site along with a little schneider which will help keep the catheter in place. After the procedure is done, a radiologist (doctor in x-ray department) will look at your x-ray to make sure that the end of the catheter is in proper position to give your fluids and/or medications. What should I expect in the care of my PICC? A dressing that is specially made to prevent infections will be put on. After this, the dressing will only be changed once a week unless it needs it sooner. If you go home with the catheter in, you may take a shower as long as you keep the site dry. You can do this by wearing a specially fitted PICC protector that will be provided to you before dischargefrom the hospital. The dressing at the site must be kept clean and dry. It is important that you watch for signs of infection at the site. Your healthcare provider should be notified if these occur: Redness Swelling Pus Pain at the site Other reasons to notify your healthcare provider are: Catheter becomes partially or totally removed Unable to infuse medication/fluid Unable to draw back blood from the catheter. This may be an early sign that a clot is forming on the end of the catheter. If this occurs, a medicine called Cathflo may be used to dissolve this clot. Ask the PICC nurse or your doctor, any questions you may have so you feel secure in consenting to having a PICC line. References: Vascular Access Device Selection, Insertion, and Management, [employer] 12/17. A Review of the Efficacy, Safety, Use, and Administration of Cathflo, [employer] 2005 * Initial Assessments - Ariela Kam MSW - 01/17/2021 10:56 AM EDT Office of Care Management Patricio Initial Assessment MARTINA Casarez reviewed record and discussed patient with Care Team. Source of Information: Mary Introduced self/reviewed role; services accepted. Patient???s Name: Mary Porras Reason for Hospitalization: Present on Admission: ??? Cardiomyopathy, peripartum, antepartum Patient receiving hospital care under Inpatient status. Admission order reviewed by RNCM. Past Medical History: Past Medical History: Diagnosis Date ??? H/O chlamydia infection 2019 treated with negative JOSE ??? History of section ??? 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 Non-ischemic cardiomyopathy with peripartum cardiomyopathy 2014 Hospitalizations Within the Past 30 Days: None Anticipated Length Of Stay (If known): Unknown Patient/Caregiver Goals of Treatment: To deliver her baby safely, and discharge safely with baby Decision-Making Responsibility/Custody: Mary has decision-making over herself DCF/DCYF involvement: None at this time Current Coping/Education/Information Needs: Mary is coping okay with her current status. She is anxious about her health and the safety of her baby. Mary is open to receiving supportive services after discharge and welcomes the support of the social work team. Functional Status Prior to Admission: , ambulating independently Current Functional Ability: , ambulating independently and easy to engage in conversation Home Environment: Lives at [address] [place] [id number] Household members: MOB, FOB Family Supports: Mary's partner's family appears to be supportive and helpful. Social & Community Resources: Food: Mary reported she receives food stamps and WIC Housing: No concerns for housing were reported Transportation: has vehicle Financial: No reported issues Car Seat: Does not have; SW will assist and support family Mental Health: SW will help Mary get a consult from psychiatry and make a referral for a therapist Childcare/School: did not ask Other: [place]: WIC, Children w/ Special Health Needs, Children???s Integrated Services, Early Intervention: Receives WIC Current Medical Services in the home: VNA: Has Infusion Company: N/A DME (including a breast pump): Has Early Intervention: N/A Behavioral Health History/Needs: 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 She reported she used to beon sertraline but is not anymore; Mary agreed she would like to consult with psychiatry during her stay here. Mary requested assistance with obtaining a therapist. Substance Use/Abuse: No concerns reported or observed Other Pertinent/Service Specific Information: None Health/Prescription Coverage: Primary Insurance: MEDICAID [place] Secondary Insurance: N/A Prescription Coverage: Preferred Pharmacy: Other: Primary Care Provider: GABRIELLA Mayer [phone] Potential Needs/referrals for Transition of Care: Need a psychiatry consult and a referral to outpatient community therapist Transportation at discharge: Has transportation from partner who is here supporting her Anticipated Barriers to Discharge/Special Considerations: No anticipated barriers to discharge oncemedically cleared Assessment: Mary is a young mother who is facing several medical concerns as she approaches delivery. She reported having a lot of anxiety about the situation and fear about her health status and the safety/well-being of her baby girl. Mary is here with her partner, RASHEED, who appears to be supportive and attentive to her needs. Mary welcomes the support from [facility] pediatric social workers and is open to working with psychiatry. This SW will work with this patient and her family on an ongoing basis to provide emotional support as well as referrals to community support services for her after discharge. Plan: This SW will remain available to the patient and continue to support her. A member of the Care Management team will continue to monitor progress, follow for continuity of care and assist with transition of care planning. MARTINA Casarez Pager [phone] Work * Consult Note - Allan Wilkinson Jr., MD - 01/16/2021 9:06 PM EDT Mary Porras is a 25 yo woman w/ a pmh sig for pediatric viral myocarditis (age 4 months) and previous peripartum cardiomyopathy, presenting today after having found a newly reduced EF of 35% (from 45%) on out-pt f/u echocardiogram. The pt was directed to the hospital today for further assessment by her soccer referee for further HFrEF management and antepartum monitoring. The pt states she has been doing relatively well over the past few weeks. She notes her weight is up and has swelling in her legs, and is unsure how much of this is related to her heart or alone. 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 She is able to carry out her work duties, which she feels arent very taxing. The pt does note simple tasks can make her SOB, such as ambulating quickly, and this has worsened over the past few weeks, but otherwise feels pretty good. Physical Exam: Well appearing, NAD, speaking in full sentences Lungs: good effort/excursion. CTABL Cardiac: RRR, no m/r/g. JVD flat. 1+ KATHERINE Extremities: warm and well perfused. 2+ b/l Radial pulses Neuro: limited exam, no deficits Notable Labs: trop negative, BNP 77 EKG: NSR, w/ sinus arrhythmia, good R wave progression, normal axis, no sig change from prior TTE 01/14/21: ?? 1. The left ventricle is severely dilated. Global left ventricular systolic function is moderately reduced. The quantitative left ventricular ejection fraction by biplane Higginbotham's method is 35%. There is diffuse hypokinesis present. except for the basal anterolateral and inferolateral segments which are normal. 2. The right ventricle is normal in size. Right ventricular global systolic function is normal. The estimated pulmonary artery systolic pressure is 22 mmHg. The estimated right atrial pressure is 8 mmHg. 3. There is no hemodynamically significant valve disease. 4. See remainder of report for additional findings. A/P:Mary Porras is a 25 yo woman w/ a pmh sig for pediatric viral myocarditis (age 4 months) and previous peripartum cardiomyopathy, presenting today after having found a newly reduced EF of 35% (from 45%) on out-pt f/u echocardiogram. Clinically she is well appearing, and does not appear to bein a CHF exacerbation. Furthermore, objective data such as BNP is WNL. TTE showing reduction in EF is concerning. At this point, we would not make any significant changes to the pts HFrEF regimen. Would favour continue metoprolol for now. Appreciat the insight and support from the OB team. They areplanning on 48 hours of steroids for support surfactant secretion and development of the babies deve loping lungs in the potential scenario requiring early delivery. Would continue to monitor the pt on tele and O2 saturations. Peripartum CDMO: -Monitor on tele w/ O2 sat -Continue metoprolol -remainder per OB team -Appreciate anesthesia recs Associated attestation - Lyndsay Garrido MD - 01/17/2021 12:59 PM EDT Cardiology Attending Addendum I was the assigned attending soccer referee for this clinical encounter. For the purposes of billing,I was directly involved in the clinical decision making and the plan of care is reasonable. Please see the note by Dr. Wilkinson below for full details, in brief: Mary Porras is a 25 y.o. year old female w/ a past medical history of pediatric viral myocarditis and peripartum cardiomyopathy that complicated her first 7 years ago, now being followed in high risk cardio obstetrics clinic with a recent drop in her ejection fraction to 35% who is electively admitted to the obstetrics floor for consideration of delivery options. After her son was born, the patient was placed on guideline directed medical therapy and recovered her ejection fraction to normal. The patient is now 32 weeks with her second child and a drop in ejection fraction to 35% with severe LV dilatation that has been noted in the outpatient setting. She has been continued on metoprolol. 1 day prior to admission, she spoke with one of her obstetricians and reported significant dyspnea with minimal physical activity, new orthopnea and lower extremity edema. By report, when she arrived on the obstetrics floor, she did have significant lower extremity edema which resolved with elevation of her lower extremities. She is received 1 dose of steroids and is relative euvolemic today on exam, though this is quite difficult to determine in a woman who is 32 weeks . Vital signs are notable for heart rate in the 80s to low 90s, blood pressure of 105/56 that occasionally drops into the 90s over 40s, saturations greater than 98% on room air. She does not have an elevated JVP on exam. She has trace nonpitting lower extremity edema that she says is markedly improved from prior. Her lab work is notable for a normal creatinine of 0.57, negative troponin of less than 0.01 and a proBNP of 77. Her LFTs are within normal limits. After discussion with the [facility] team and the patient, we have elected to move forward with the planned likely early next week. The thinking is that we are unlikely to be able to do much to help her ejection fraction improve until she is delivered. Moreover, given her history of peripartum ca rdiomyopathy, delivery itself may help her ejection fraction recover. During her first delivery, she got very sick very quickly as she decompensated from a cardiovascular perspective and thus we would like to avoid that this time around. Therefore, if it is reasonable from the baby's perspective tomove forward with delivery after steroids, I would much rather perform a planned C- section on a compensated woman with an ejection fraction of 30% as compared to decompensated woman with an ejection fraction of 30%. I discussed this plan with the patient and she is also in agreement, wishing to avoid the trauma ofher first delivery. We will work closely with the [facility] team. They will plan for a scheduled C- section, likely early nextweek after completion of steroids. We will monitor the patient in the interim for volume retention with the steroids. We will monitor carefully for any worsening signs or symptoms of volume overload,which she is at high risk for. We will work with the cardiac anesthesiologist in the [facility] and she will plan to recover in the [facility] post early next week. Recommendations: Agree with plan to move forward with planned early next week Monitor carefully for signs and symptoms of volume retention with steroids Continue low-dose metoprolol 25 mg nightly as long as the patient remains compensated No indication to initiate digoxin now given likely impending delivery Would involve cardiac anesthesia for her case as hemodynamic monitoring would likely be helpful We will plan for the patient to transfer to the cardiology service after delivery Will initiate guideline directed medical therapy for heart failure with reduced ejection fraction with a beta-sunitha, ARNI, MRA and SGLT2 inhibitor postdelivery -assuming the patient is not planningto breast-feed, which we would discourage in the situation given the likely contribution from recurrent peripartum cardiomyopathy Thank you for allowing us to participate in the care of this patient. For any additional questions,my pager is #[phone]. Lyndsay Toledo MD MPH Advanced Heart Disease & Cardiac Transplant Attending 01/17/2021, 12:49 PM documented in this encounter Plan of Treatment Upcoming Encounters Date Type Department Care Team (Late st Contact Info) Description 01/27/2024 1:00 PM EST Appointment Non-[place] [phone] Anton Márquez MD [facility] [place] [place] [address] 01/27/2024 3:00 PM EST Office Visit Cardiology at [address] [phone] Anton Márquez MD [facility] [place] [address] documented as of this encounter Procedures Procedure Name Priority Date/Time Associated Diagnosis Comments HC PROBNP Routine 01/25/2021 6:30 AM EST HC MAGNESIUM, SERUM Routine 01/25/2021 6 :30 AM EST BASIC METABOLIC PANEL Routine 01/25/2021 6:30 AM EST SCAN, PERIPHERAL BLOOD STAT 3:19 AM EST HEMOGRAM STAT 01/24/2021 3:19 AM EST DIFFERENTIAL, AUTOMATED STAT 01/24/2021 3:19 AM EST HC CBC,PLT & AUTO DIFF STAT 3:19 AM EST HC PHOSPHORUS, SERUM STAT 01/24/2021 3:19 AM EST HC MAGNESIUM, SERUM STAT 01/24/2021 3 :19 AM EST BASIC METABOLIC PANEL STAT 01/24/2021 3:19 AM EST RAPID COVID-19 PCR ([facility]) Routine 01/23/2021 1:05 PM EST HEMOGRAM Routine 01/23/2021 3:20 AM EST DIFFERENTIAL, AUTOMATED Routine 01/23/2021 3:20 AM EST HC CBC,PLT & AUTO DIFF Routine 3:20 AM EST MAGNESIUM Routine 01/23/2021 3:20 AM EST BASIC METABOLIC PANEL Routine 01/23/2021 3:20 AM EST SPECIMEN TO PATHOLOGY Routine 01/22/2021 4:37 PM EST SPECIMEN TO PATHOLOGY Routine 01/22/2021 4:37 PM EST SPECIMEN TO PATHOLOGY Routine 01/22/2021 4:37 PM EST SALPINGECTOMY Routine 01/22/2021 4:02 PM EST SPECIMEN TO PATHOLOGY Routine 01/22/2021 3:40 PM EST SPECIMEN TO PATHOLOGY Routine 01/22/2021 3:40 PM EST SURGICAL PATHOLOGY REPORT Routine 01/22/2021 3:33 PM EST SPECIMEN TO PATHOLOGY Routine 01/22/2021 3:33 PM EST Removal Of Fallopian Tube (56058) Yes 01/22/2021 1:31 PM EST non ischemic cardiomyopathy, Delivery Only ([id number]) Yes 01/22/2021 1:31 PM EST non ischemic cardiomyopathy, TYPE AND SCREEN VALIDITY STAT 01/22/2021 7:33 AM EST ABORH RECHECK STATUS STAT 01/22/2021 7:33 AM EST ABO/RH TYPING STAT 01/22/2021 7:33 AM EST ANTIBODY SCREEN STAT 01/22/2021 7:33 AM EST HC ANTIBODY DETECTION,CAPTURE-R STAT 01/22/2021 7:33 AM EST DELIVERY Routine 01/20/2021 9:1 2 PM EST HC SYPHILIS ANTIBODY Routine 01/17/2021 8:19 PM EDT HC TROPONIN T STAT 01/17/2021 8:19 PM EDT HC PROBNP STAT 01/17/2021 8:19 PM EDT EKG 12-LEAD STAT 01/17/2021 8:06 PM EDT Cardiomyopathy, peripartum, antepartum PLACE PICC LINE: CONTACT VASCULAR ACCESS Routine 01/17/2021 2:05 PM EDT XR PICC PLACEMENT OVER 5 YEARS (IV TEAM) Routine 01/17/2021 1:54 PM EDT US OB FOLLOW UP Routine 01/17/2021 11:52 AM EDT EKG 12-LEAD Routine 01/16/2021 5:09 PM EDT Cardiomyopathy, peripartum, antepartum GROUP B STREPTOCOCCUS SCREEN Routine 01/16/2021 4:57 PM EDT RAPID COVID-19 PCR ([facility]) Routine 01/16/2021 4:57 PM EDT HC GROUP B STREP SCREEN Routine 01/16/2021 4:57 PM EDT HEMOGRAM Routine 01/16/2021 4:48 PM EDT DIFFERENTIAL, AUTOMATED Routine 01/16/2021 4:48 PM EDT HC CBC,PLT & AUTO DIFF Routine 4:48 PM EDT TROPONIN Routine 01/16/2021 4:48 PM EDT PRO-BRAIN NATRIURETIC PEPTIDE Routine 01/16/2021 4:48 PM EDT COMPREHENSIVE METABOLIC PANEL Routine 01/16/2021 4:48 PM EDT TYPE AND SCREEN VALIDITY Routine 01/16/2021 4:40 PM EDT ABORH RECHECK STATUS Routine 01/16/2021 4:40 PM EDT ABO/RH TYPING Routine 01/16/2021 4:40 PM EDT ANTIBODY SCREEN Routine 01/16/2021 4:40 PM EDT HC ANTIBODY DETECTION,CAPTURE-R Routine 01/16/2021 4:40 PM EDT documented in this encounter Results * (ABNORMAL) Basic Metabolic Panel (non-fasting) (01/25/2021 6:30 AM EST) Glucose 72 65 - 199 mg/dL [facility] Comment:Diabetes: >=200 mg/d L plus symptoms Blood Urea Nitrogen 15 8 - 18 mg/dL [facility] Creatinine 0.51(L) 0.70 - 1.20 mg/dL [facility] Sodium 138 135 - 145 mmol/L [facility] Potassium 4.2 3.5 - 5.0 mmol/L [facility] Comment: Please note: ??Patients with WBC >100,000 may have falsely elevated Potassium levels. ??For accurate Potassium quantification in these patients send serum separator tube (gold top) for subsequent determinations. ??Contact the Clinical Chemistry Laboratory if there are any questions. Chloride 104 98 - 107 mmol/L [facility] Carbon Dioxide 25 22 - 31 mmol/L [facility] Anion Gap 9 5 - 15 mmol/L [facility] Calcium 9.0 8.5 - 10.5 mg/dL [facility] Est Glomerular Filtration Rate 135 >=60 mL/min/1. 73 m?? [facility] Comment: This patient? s estimated glomerular filtration rate (eGFR) is between 135 mL/min/1.73 m2 (patients with less muscle mass) and 156 mL/min/1.73 m2 (patients with more muscle mass) [...] and symptoms in addition to eGFR. Blood 01/25/2021 6:30 AM EST 01/25/2021 6:42 AM EST Narrative Resulting Agency Comment Spec In Lab Mandie Mauro MD CHEMISTRY ORDERABLES [facility] [place] [address] * Magnesium (01/25/2021 6:30 AM EST) Magnesium 0.72 0.69 - 1.07 mmol/L [facility] Blood 01/25/2021 6:30 AM EST 01/25/2021 6:42 AM EST Narrative Resulting Agency Comment Spec In Lab Mandie Mauro MD CHEMISTRY ORDERABLES Performing Organization Address [facility]/ZIP Co de Phone Number [facility] [place] [address] * (ABNORMAL) pro-Brain Natriuretic Peptide (01/25/2021 6:30 AM EST) Pathologist [facility] [place] NT-proBNP 125(H) <=124 pg/mL [facility] Blood 01/25/2021 6:30 AM EST 01/25/2021 6:42 AM EST Narrative Resulting Agency Comment Spec In Lab Mandie Mauro MD CHEMISTRY ORDERABLES Performing Organization Address [facility] Co de Phone Number [facility] [place] [address] * Scan, Peripheral Blood (01/24/2021 3:19 AM EST) Pathologist [facility] Plat estimate Normal [facility] RBC Morphology Abnormal [facility] Hypochromia Slight [facility] Blood 01/24/2021 3:19 AM EST 01/24/2021 3:27 AM EST Narrative Resulting Agency Comment Spec In Lab Mandie Mauro MD HEMATOLOGY ORDERABLE S Performing Organization Address [facility] Co de Phone Number [facility] [place] [address] * (ABNORMAL) Differential, Automated (01/24/2021 3:19 AM EST) [facility] Neutrophil % 61.4 % [facility] Neutrophil Absolute 6.85(H) 1.70 - 6.10 x10(3)/mc L [facility] Lymph % 23.0 % [facility] Lymphocytes Abs 2.6 0.9 - 3.2 x10(3)/mc L [facility] Monocyte % 8.1 % [facility] Monocyte Abs 0.9 0.3 - 0.9 x10(3)/mc L [facility] Eos % 3.4 % [facility] Eosinophils Abs 0.4 0.0 - 0.4 x10(3)/[facility] Basophil % 0.4 % [facility] Baso Absolute 0.0 0.0 - 0.1 x10(3)/[facility] Immature Gran % 3.70 % [facility] Comment: Immature granulocytes(IG's)percentage and absolute count will include metamyelocytes, myelocytes, and promyelocytes. Blood smears from CBCs yielding IG's will be scanned manually for concordance. If this scan disagrees with the automated IG or if promyelocytes are noted, a manual differential will be performed. Immature Gran Absolute 0.41(H) 0.00 - 0.04 x10(3)/[facility] Blood 01/24/2021 3:19 AM EST 01/24/2021 3:27 AM EST Narrative Resulting Agency Comment Spec In Lab Mandie Mauro MD HEMATOLOGY ORDERABLE S [facility] [place] [address] * (ABNORMAL) Hemogram (01/24/2021 3:19 AM EST) White Blood Cell 11.2(H) 4.0 - 9.5 x10(3)/ L [facility] Red Blood Cell 3.71(L) 4.00 - 5.21 x10(6)/ L [facility] Hemoglobin 10.4(L) 11.7 - 15.5 g/dL [facility] Hematocrit 32.6(L) 35.7 - 45.8 % [facility] Mean Cell Volume 87.9 82.6 - 94.4 fL [facility] Mean Cell Hemoglobin 28.0 27.1 - 32.0 pg [facility] Mean Cell Hemoglobin Concentration 31.9 31.7 - 35.0 g/dL [facility] Platelet 181 145 - 357 x10(3)/mc L [facility] RDW Standard Deviation 43.3 37.0 - 46.0 fL [facility] RDW coefficient of variation 13.6 11.5 - 14.1 % [facility] Mean Platelet Volume 10.0 7.6 - 12.9 fL [facility] NRBC% auto 0.0 % [facility] NRBC Absolute 0.000 0.000 - 0.000 x10(3)/mc L [facility] Blood 01/24/2021 3:19 AM EST 01/24/2021 3:27 AM EST Narrative Resulting Agency Comment Spec In Lab Mandie Mauro MD HEMATOLOGY ORDERABLE S Performing Organization Address [facility] Phone Number [facility] [place] [address] * Phosphorus (01/24/2021 3:19 AM EST) Phosphorus 4.2 2.5 - 4.5 mg/dL [facility] Blood 01/24/2021 3:19 AM EST 01/24/2021 3:27 AM EST Narrative Resulting Agency Comment Spec In Lab Mandie Mauro MD CHEMISTRY ORDERABLES Performing Organization Address [facility] de Phone Number [facility] [place] [address] * Magnesium (01/24/2021 3:19 AM EST) Magnesium 0.70 0.69 - 1.07 mmol/L [facility] Blood 01/24/2021 3:19 AM EST 01/24/2021 3:27 AM EST Narrative Resulting Agency Comment Spec In Lab Mandie Mauro MD CHEMISTRY ORDERABLES Performing Organization Address [facility]/ZIP Co de Phone Number [facility] [place] [address] * (ABNORMAL) Basic Metabolic Panel (non-fasting) (01/24/2021 3:19 AM EST) Glucose 83 65 - 199 mg/dL [facility] Comment:Diabetes: >=200 mg/d L plus symptoms Blood Urea Nitrogen 15 8 - 18 mg/dL [facility] Creatinine 0.59(L) 0.70 - 1.20 mg/dL [facility] Sodium 136 135 - 145 mmol/L [facility] Potassium 4.2 3.5 - 5.0 mmol/L [facility] Comment: Please note: ??Patients with WBC >100,000 may have falsely elevated Potassium levels. ??For accurate Potassium quantification in these patients send serum separator tube (gold top) for subsequent determinations. ??Contact the Clinical Chemistry Laboratory if there are any questions. Chloride 104 98 - 107 mmol/L [facility] Carbon Dioxide 24 22 - 31 mmol/L [facility] Anion Gap 8 5 - 15 mmol/L [facility] Calcium 9.1 8.5 - 10.5 mg/dL [facility] Est Glomerular Filtration Rate 128 >=60 mL/min/1. 73 m?? [facility] Comment: This patient? s estimated glomerular filtration rate (eGFR) is between 128 mL/min/1.73 m2 (patients with less muscle mass) and 149 mL/min/1.73 m2 (patients with more muscle mass) [...] and symptoms in addition to eGFR. Blood 01/24/2021 3:19 AM EST 01/24/2021 3:27 AM EST Narrative Resulting Agency Comment Spec In Lab Mandie Mauro MD CHEMISTRY ORDERABLES [facility] [place] [address] * COVID-19 PCR (01/23/2021 1:05 PM EST) SARS-CoV-2 RNA (Rapid) Not Detected Not Detected [facility] Comment: This result should be interpreted in combination with the clinical observations, patient history and epidemiological information. For testing of asymptomatic individuals, assay performance characteristics and clinical utility have not been evaluated. Testing for SARS-CoV-2 (Severe acute respiratory syndrome coronavirus 2, formerly known as 2019 novel coronavirus or 2019-nCoV) to aid in the diagnosis of COVID-19 is performed using the Simplexa COVID-19 Direct Assay by [employer] as authorized by the FDA issued Emergency Use Authorization (EUA). This assay is intended for In-vitro Diagnostic (IVD) use with nasopharyngeal swabs collected from individuals meeting the CDC criteria for testing. The assay is performed based on the instructions for use and additional guidance provided by the FDA. Testing is performed in the Microbiology Laboratory within the Department of Pathology and Laboratory Medicine at [facility], certified under the Clinical Laboratory Improvement Amendments of 1988 (CLIA), 42 U.S.C. section 263a, to perform high complexity tests. Assay performance has been verified according to clinical laboratory regulatory requirements. Test results are provided above. A result of Not Detected indicates that the viral RNA target is not present but does not preclude SARS-CoV-2 infection. False negative results may occur if a specimen is improperly collected, transported or handled; if amplification inhibitors are present; or if inadequate numbers of viral particles are present in the specimen. A result of Detected suggests a current or recent infection and the patient is presumed to be infected. Positive and negative predictive values for this test are highly dependent on disease prevalence. A result of Invalid indicates the inability to conclusively determine the presence or absence of SARS-CoV-2 RNA in the sample which can be due to a variety of factors. Recollection is recommended in the case of an invalid result. CDC COVID-19 criteria for testing on human specimens and clinical management guidance information are available at the CDC Coronavirus Disease 2019 (COVID-19) webpage under Information for Healthcare Professionals (https://www.cdc.gov/coronavirus/2019-ncov/hcp/index.html). Additional information about this and other EUA tests can be found in provider and patient fact sheets at the following FDA website: https://www.fda.gov/medical-devices/eojzuxqsvau-aryigse-7944-mqxkz-20-uwtveqohg- use-a ialoaitqgmzmx-wbkwrpy-vmmnjwb/ankzz-gytvgrqsjno-fimr SARS-CoV-2 Source RECORD CHANGER Swab MA RY [facility] Nasopharyngeal Swab 01/24/20 1:05 PM EST 01/23/2021 2:00 PM EST Comment:Symptoms->COVID-19 S uspected Narrative Resulting Agency Comment Spec In Lab Mandie Mauro MD MICROBIOLOGY - GENER AL ORDERABLES Performing Organization Address City/[facility]/ZIP Co de Phone Number [facility] [place] [address] * Magnesium (01/23/2021 3:20 AM EST) Pathologist [facility] [place] Magnesium 0.73 0.69 - 1.07 mmol/L [facility] Blood Venous Draw / Unknown 01/23/2021 3:20 AM EST 01/23/2021 3:33 AM EST Narrative Resulting Agency Comment Spec In Lab Seth Rush MD CHEMISTRY ORDERABLES Performing Organization Address City/[facility]/ZIP Co de Phone Number [facility] [place] [address] * (ABNORMAL) Differential, Automated (01/23/2021 3:20 AM EST) Neutrophil % 75.4 % [facility] Neutrophil Absolute 12.13(H) 1.70 - 6.10 x10(3)/mc L [facility] Lymph % 12.4 % [facility] Lymphocytes Abs 2.0 0.9 - 3.2 x10(3)/mc L [facility] Monocyte % 7.7 % [facility] Monocyte Abs 1.2(H) 0.3 - 0.9 x10(3)/ L [facility] Eos % 0.9 % [facility] Eosinophils Abs 0.2 0.0 - 0.4 x10(3)/[facility] Basophil % 0.5 % [facility] Baso Absolute 0.1 0.0 - 0.1 x10(3)/[facility] Immature Gran % 3.10 % [facility] Comment: Immature granulocytes(IG's)percentage and absolute count will include metamyelocytes, myelocytes, and promyelocytes. Blood smears from CBCs yielding IG's will be scanned manually for concordance. If this scan disagrees with the automated IG or if promyelocytes are noted, a manual differential will be performed. Immature Gran Absolute 0.50(H) 0.00 - 0.04 x10(3)/[facility] Blood 01/23/2021 3:20 AM EST 01/23/2021 3:27 AM EST Narrative Resulting Agency Comment Spec In Lab Inge Benavides MD HEMATOLOGY ORDERABLE S [facility] [place] [address] * (ABNORMAL) Hemogram (01/23/2021 3:20 AM EST) White Blood Cell 16.1(H) 4.0 - 9.5 x10(3)/[facility] Red Blood Cell 3.67(L) 4.00 - 5.21 x10(6)/[facility] Hemoglobin 10.4(L) 11.7 - 15.5 g/dL [facility] Hematocrit 31.8(L) 35.7 - 45.8 % [facility] Mean Cell Volume 86.6 82.6 - 94.4 fL [facility] Mean Cell Hemoglobin 28.3 27.1 - 32.0 pg [facility] Mean Cell Hemoglobin Concentration 32.7 31.7 - 35.0 g/dL [facility] Platelet 195 145 - 357 x10(3)/mc L [facility] RDW Standard Deviation 41.8 37.0 - 46.0 fL [facility] RDW coefficient of variation 13.4 11.5 - 14.1 % [facility] Mean Platelet Volume 10.1 7.6 - 12.9 fL [facility] NRBC% auto 0.0 % [facility] NRBC Absolute 0.000 0.000 - 0.000 x10(3)/mc L [facility] Blood 01/23/2021 3:20 AM EST 01/23/2021 3:27 AM EST Narrative Resulting Agency Comment Spec In Lab Inge Benavides MD HEMATOLOGY ORDERABLE S Performing Organization Address City/State/[facility] Co de Phone Number [facility] [place] [address] * (ABNORMAL) Basic Metabolic Panel (non-fasting) (01/23/2021 3:20 AM EST) Glucose 89 65 - 199 mg/dL [facility] Comment:Diabetes: >=200 mg/d L plus symptoms Blood Urea Nitrogen 10 8 - 18 mg/dL [facility] Creatinine 0.47(L) 0.70 - 1.20 mg/dL [facility] Sodium 136 135 - 145 mmol/L [facility] Potassium 4.2 3.5 - 5.0 mmol/L [facility] Comment: Please note: ??Patients with WBC >100,000 may have falsely elevated Potassium levels. ??For accurate Potassium quantification in these patients send serum separator tube (gold top) for subsequent determinations. ??Contact the Clinical Chemistry Laboratory if there are any questions. Chloride 105 98 - 107 mmol/L [facility] Carbon Dioxide 22 22 - 31 mmol/L [facility] Anion Gap 9 5 - 15 mmol/L [facility] Calcium 8.8 8.5 - 10.5 mg/dL [facility] Est Glomerular Filtration Rate 138 >=60 mL/min/1. 73 m?? [facility] Comment: This patient? s estimated glomerular filtration rate (eGFR) is between 138 mL/min/1.73 m2 (patients with less muscle mass) and 160 mL/min/1.73 m2 (patients with more muscle mass) [...] and symptoms in addition to eGFR. Blood 01/23/2021 3:20 AM EST 01/23/2021 3:27 AM EST Narrative Resulting Agency Comment Spec In Lab Malissa Borrero MD CHEMISTRY ORDERABLES Performing Organization Address [facility]/ZIP Co de Phone Number [facility] [place] [address] * Specimen to Pathology (01/22/2021 4:37 PM EST) AP Specimen 01/22/2021 4:37 PM EST 01/22/2021 4:37 PM EST Narrative [facility] - 01/22/2021 4:37 PM EST Specimen requisition ordered. ??Separate Pathology report to follow Malissa Borrero MD PATHOLOGY/CYTOLOGY O RDERABLES Performing Organization Address [facility]/ZIP Co de Phone Number [facility] [place] [address] * Specimen to Pathology (01/22/2021 4:37 PM EST) AP Specimen 01/22/2021 4:37 PM EST 01/22/2021 4:37 PM EST Narrative [facility] - 01/22/2021 4:37 PM EST Specimen requisition ordered. ??Separate Pathology report to follow Malissa Borrero MD PATHOLOGY/CYTOLOGY O MAY Performing Organization Address City/[facility]/[place] [address] * Specimen to Pathology (01/22/2021 4:37 PM EST) AP Specimen 01/22/2021 4:37 PM EST 01/22/2021 4:37 PM EST Narrative [facility] - 01/22/2021 4:37 PM EST Specimen requisition ordered. ??Separate Pathology report to follow Malissa Borrero MD PATHOLOGY/CYTOLOGY O MAY Performing Organization Address [facility] [place] [address] * Specimen to Pathology (01/22/2021 3:40 PM EST) AP Specimen 01/22/2021 3:40 PM EST 01/22/2021 3:40 PM EST Narrative [facility] - 01/22/2021 3:40 PM EST Specimen requisition ordered. ??Separate Pathology report to follow Malissa Borrero MD PATHOLOGY/CYTOLOGY O MAY Performing Organization Address [facility] [place] [place] [address] * Specimen to Pathology (01/22/2021 3:40 PM EST) AP Specimen 01/22/2021 3:40 PM EST 01/22/2021 3:40 PM EST Narrative [facility] - 01/22/2021 3:40 PM EST Specimen requisition ordered. ??Separate Pathology report to follow Malissa Borrero MD PATHOLOGY/CYTOLOGY O MAY Performing Organization Address City/[facility]/[place] [address] * Surgical Pathology Report (01/22/2021 3:33 PM EST) Final Diagnosis -[id number] ? Location: ; BP01; A The signing pathologist has (i) examined the relevant preparation(s) for the specimen(s) and (ii) rendered or confirmed the diagnosis(es). . ?Surgical Pathology DIAGNOSIS A - Fallopian tube, right; resection: ?Transected Fallopian tube with benign developmental remnants and rare ?subserosal foci of decidua. B - Fallopian tube, left; resection: ?Transected Fallopian tube with benign paratubal cyst(s), developmental ?remnants and rare subserosal foci of decidua. C - Pre-term placenta, 410 grams: ?Weight between 50th and 75th percentiles for gestation. ?Membranes with 90% marginal/10% circum-marginate insertion. ?No chorioamnionitis. ?Appropriate villous maturation with no focal parenchymal lesion. ?Three vessel umbilical cord with no funisitis. Electronically signed by: ?Erasmo MEDINA, Reuben Wayne Verified: ??01/30/2021 15:34 ??Pathologist Performed at: ??-[facility] Dept. of Pathology, [place], [place] SPECIMEN(S) SUBMITTED A - Right Fallopian tube B - Left Fallopian tube C - Placenta CLINICAL INFORMATION Nonischemic cardiomyopathy, . SPECIMEN PROCESSING A - Labeled/Fixative: Right fallopian tube, fresh. Quantity/Size: ??Single, 7.4 x 0.5 cm. Tissue Description: Segment of fallopian tube fimbriated The serosa is congested with scattered red-brown adhesions, and 0.1 cm paratubal cysts Sections/Processi ng: Police [employer] sections in 3 cassettes as follows: ?A1: ??Fallopian tube, cross sections ?A2-A3: ??Longitudinally bisected fimbria B - Labeled/Fixative: Left fallopian tube, fresh. Quantity/Size: ??Single, 7.5 x 0.3-0.6 cm. Tissue Description: Segment of fallopian tube fimbriated Sections/Processi ng: The serosa is congested with distal tortuosity, adhesions and 0.6 cm translucent fluid filled paratubal cyst [employer] sections in 3 cassettes as follows: ?B1: ??Cross-sections ?B2: ??distal tortuosity demonstrating serosal adhesions and paratubal cyst ?B3: ??Longitudinally bisected fimbria C - Labeled/Fixative: Placenta, fresh. Quantity/Size/Josse ght: Single, 21.0 x 16.5 x 2.5 cm, 410 g. Integrity: Intact. Shape: Discoid. . SPECIMEN PROCESSING Membranes: ? - Insertion: 90% marginal, 10% circummarginate. ? - Color and Clarity: Feather Sound-red and clear. Cord: ? - Size: 22.0 x 1.5 cm-attached; 26.0 x 1.3 cm-detached. ? - Number of Vessels: Three. ? - Insertion site: Central. Surface: ? - Color and Clarity: purple-red and clear. ? - surface abnormalities: Eccentric 2.7 x 1.5 cm pink-white and subchorionic plaque, 2 cm from the cord insertion site. Maternal Surface: Intact, complete with scattered, moderate calcification. ? - Lesions: Loosely adherent peripheral and retroplacental clotted blood, without associated parenchymal compression. The lesions occupy approximately <10% of the surface area. Parenchyma: Red-brown, spongy without additional gross lesions. Sections/Processi ng: Police Magistrate sections in 9 cassettes as follows: ?C1: ??Membrane roll ?C2: ??Proximal and distal cord ?C3-C8: ??Full thickness parenchyma ?C9: ?? surface subchorionic plaque ??shb 01/30/2021 3:34 PM EST [facility] TISSUE SPECIMEN FROM PLACENTA / Unknown 01/22/2021 3:33 PM EST 01/22/2021 3:33 PM EST False Vocal Cords, Bilateral 01/22/2021 3:33 PM EST 01/22/2021 3:33 PM EST TISSUE SPECIMEN FROM PLACENTA / Unknown 01/22/2021 3:33 PM EST 01/22/2021 3:33 PM EST Rustam Hoffman MD PATHOLOGY/CYTOLOGY O RDABRAN Performing Organization Address [facility] Co de Phone Number [facility] [place] [address] * Specimen to Pathology (01/22/2021 3:33 PM EST) AP Specimen 01/22/2021 3:33 PM EST 01/22/2021 3:33 PM EST Narrative [facility] - 01/22/2021 3:33 PM EST Specimen requisition ordered. ??Separate Pathology report to follow Malissa Borrero MD PATHOLOGY/CYTOLOGY O RDABRAN Performing Organization Address [facility] de Phone Number [facility] [place] [address] * Type and Screen Validity (01/22/2021 7:33 AM EST) T&S only valid at [facility] Comment:This Type and Screen result is only valid at the [facility] Blood 01/22/2021 7:33 AM EST 01/22/2021 7:39 AM EST Narrative Resulting Agency Comment Spec In Lab Inge Benavides MD BLOOD BANK LAB ORDER JERRY Performing Organization Address [facility] Co de Phone Number [facility] [place] [address] * ABORH Recheck Status (01/22/2021 7:33 AM EST) ABORH Type Recheck Completed [facility] Blood 01/22/2021 7:33 AM EST 01/22/2021 7:39 AM EST Narrative Resulting Agency Comment Spec In Lab Inge Benavides MD BLOOD BANK LAB ORDER JERRY [facility] [place] [address] * Antibody screen (01/22/2021 7:33 AM EST) Ab Screen Interp Negative [facility] Expires at [id number] on: 01/25/2021 [facility] Blood 01/22/2021 7:33 AM EST 01/22/2021 7:39 AM EST Narrative Resulting Agency Comment Spec In Lab Inge Benavides MD BLOOD BANK LAB ORDER JERRY Performing Organization Address City/[facility]/ZIP Co de Phone Number [facility] [place] [address] * ABO/Rh Typing (01/22/2021 7:33 AM EST) ABORH Type B Pos [facility] Blood 01/22/2021 7:33 AM EST 01/22/2021 7:39 AM EST Narrative Resulting Agency Comment Spec In Lab Inge Benavides MD BLOOD BANK LAB ORDER JERRY Performing Organization Address City/[facility]/ZIP Co de Phone Number [facility] [place] [address] * pro-Brain Natriuretic Peptide (01/17/2021 8:19 PM EDT) NT-proBNP 70 <=124 pg/mL [facility] Blood 01/17/2021 8:19 PM EDT 01/17/2021 8:33 PM EDT Narrative Resulting Agency Comment Spec In Lab Grace Desai MD CHEMISTRY ORDERABL ES Performing Organization Address City/[facility]/ZIP Co de Phone Number [facility] [place] [address] * Troponin (01/17/2021 8:19 PM EDT) Troponin-T <0.01 0.00 - 0.00 ng/mL [facility] Comment: The 99th percentile for Troponin T is less than 0.01 ng/mL, any detectable cTnT concentration using this assay should be considered elevated. According to the third universal definition of myocardial infarction the following criteria with a clinical presentation consistent with acute myocardial ischemia meets the diagnosis for a myocardial infarction (ME). Detection of a rise and/or fall of cTnT, with at least one value greater than the 99th percentile (> or = 0.01) and with at least one of the following ?? Symptoms of ischemia ?? New or presumed new significant GC-murmvjo-F wave (ST-T) changes or new left bundle branch block (LBBB) ?? Development of pathologic Q waves in the ECG ?? Imaging evidence of new loss of viable myocardium or new regional wall motion abnormality ?? Identification of an intracoronary thrombus by angiography or autopsy Samples for cTnT testing should be obtained serially upon first assessment and again 3 to 6 hours later. If the clinical suspicion is high and previous samples have been negative an additional sample may be indicated. Reference: Third [place] Definition of Myocardial Infarction. Journal of the [place] [employer] 2012;60:1581-98 Blood 01/17/2021 8:19 PM EDT 01/17/2021 8:33 PM EDT Narrative Resulting Agency Comment Spec In Lab Grace Desai MD CHEMISTRY ORDERABL ES Performing Organization Address [facility] de Phone Number [facility] [place] [address] * Syphilis Screening Antibody with reflex RPR (01/17/2021 8:19 PM EDT) Syphilis IgG/IgM Negative Negative [facility] Blood 01/17/2021 8:19 PM EDT 01/17/2021 8:33 PM EDT Narrative Resulting Agency Comment Spec In Lab Grace Desai MD CHEMISTRY ORDERABL ES Performing Organization Address [facility] Co de Phone Number [facility] [place] [address] * EKG 12 Lead (01/17/2021 8:06 PM EDT) Ventricular rate 95 BPM MUSE SYSTEM Atrial Rate 95 BPM MUSE SYSTEM P-R Interval 138 ms MUSE SYSTEM QRS Duration 90 ms MUSE SYSTEM Q-T Interval 360 ms MUSE SYSTEM QTC Calculated (Bezet) 452 ms MUSE SYSTEM Calculated P [place] 36 degrees MUSE SYSTEM Calculated R [place] 32 degrees MUSE SYSTEM Calculated T [place] 30 degrees MUSE SYSTEM INTERPRETATION Normal sinus rhythm Normal ECG When compared with ECG of 16-JAN-2021 17:09, No significant change was found Confirmed by MD Borrero Danette ([id number]) on 01/18/2021 1:52:41 PM MUSE SYSTEM 01/17/2021 8:06 PM EDT 01/18/2021 1:52 PM EDT Grace Desai MD ECG ORDERABLES MUSE SYSTEM * Place PICC Line: Contact Vascular Access Page [phone] Extremity to exclude: No restrictions; Is PICC procedure required PRIOR to patients discharge? Yes (01/17/2021 2:05 PM EDT) Narrative Yanely Schuler RN - 01/17/2021 2:05 PM EDT Yanely Schuler RN ? 01/17/2021 ??2:07 PM PICC/Midline Insertion Procedure Note Indications: Medication Administration This insertion was not to replace a malfunctioning catheter. This insertion was not due to a suspected line-associated infection. Location of Procedure: X-Ray Room 11 Risks and Benefits: The risks and benefits of this procedure were reviewed and informed consent was obtained obtained. Time Out: Prior to the start of the procedure, the patient's identity, intended procedure, site/side, correct patient positioning and presence of the site jaxon was confirmed as applicable. The medical history and chart were reviewed to rule out potential contraindications to the planned procedure. Hand Hygiene: The certified control systems technician did perform hand hygiene prior to line insertion. Catheter type: PICC Lot number: [id number] Procedure Technique: Skin was prepped with chlorhexidine. Skin preparation agent was completely dry at the time of first skin puncture. The following barrier precaution methods were used:large sterile drape, maske/eye shield, large sterile gown, sterile gloves and cap. 3 ml of 1% Lidocaine was used for skin wheal. Ultrasound was used for guidance. ??Radiographic contrast agent was not injected for vein identification. Procedure Details: Order received for catheter placement. A 5 Fr. double lumen Bard Power catheter was placed into the right basilic vein over a 0.018 inch guidewire using modified seldinger technique and fluoroscopy. Arm circumference was 29 cm at 2 cm above the insertion site. Final catheter length (with trimming): 38 cm Internal: 38 cm External: 0 cm Tip in SVC per Flory The line was not placed over a guidewire. Post Procedure: Diagnosis: Cardiomyopathy Blood return noted on aspiration of line after placement confirmed. 5 mls of normal saline infused free flowing to gravity via PICC after insertion. Sterile dressing applied: CHG Impregnated Tegaderm. Findings: The patient did tolerate the procedure well. No Complications. Procedure Comments: YANELY SCHULER RN 01/17/2021 Grace Desai MD PROCEDURE/MINOR BERNARD RGICAL ORDERABLES * XR PICC Placement Over 5 Years with Imaging Guidance (IV Team) (01/17/2021 1:54 PM EDT) Anatomical Region Laterality Modality N/A Radio Fluoroscop y Impressions 01/17/2021 1:57 PM EDT right PICC, with the catheter tip projected at the region of SVC/RA. Thank you for letting us participate in the care of this patient. ??If you are a health care provider and have any questions regarding this report, please contact the number below. ??For patients who have questions please contact the health career development specialist that requested your imaging first. ? Narrative 01/17/2021 1:57 PM EDT EXAMINATION: XR PICC PLACEMENT OVER 5 YEARS WITH IMAGING GUIDANCE (IV TEAM) CLINICAL HISTORY: Confirmation of PICC line placement TECHNIQUE: C-arm placement of PICC. Limited view of the line tip only. COMPARISON: None FINDINGS: Intraprocedural frontal radiograph of the mediastinum demonstrates a right PICC, with the catheter tip projected at the region of SVC/RA. Procedure Note Rosa Ruth MD - 01/17/2021 EXAMINATION: XR PICC PLACEMENT OVER 5 YEARS WITH IMAGING GUIDANCE (IVTEAM) CLINICAL HISTORY: Confirmation of PICC line placement TECHNIQUE: C-arm placement of PICC. Limited view of the line tip only. COMPARISON: None FINDINGS: Intraprocedural frontal radiograph of the mediastinumdemonstrates a right PICC, with the catheter tip projected at the region of SVC/RA. IMPRESSION right PICC, with the catheter tip projected at the region of SVC/RA. Thank you for letting us participate in the care of this patient. If youare a health care provider and have any questions regarding this report,please contact the number below. For patients who have questions please contactthe health career development specialist that requested your imaging first. Grace Desai MD IMG FLUORO ORDERAB LES * US OB Follow Up (01/17/2021 11:52 AM EDT) Anatomical Region Laterality Modality Pelvis, Abdomen Ultrasound 01/17/2021 11:5 1 AM EDT Impressions 01/17/2021 1:32 PM EDT 3rd Trimester Summary Single intrauterine with a gestational age of 32w 6d based on Early Ultrasound ??(07/16/20) Composite age based on the current ultrasound alone is 33w 4d. Estimated weight corresponds to the 75th percentile for 32w 6d. Current growth parameters are consistent with prior dating indicating normal growth. Amniotic fluid volume is normal Anatomical survey is limited due to the late gestational age. Thank you for letting us participate in the care of this patient. If you are a health care provider and have any questions regarding this report, please contact the number above. For patients who have questions, please contact the health career development specialist that requested your imaging first. ?Rustam Hoffman, Staff Physician Electronically Signed Final Report ?? 01/17/2021 01:32 pm Narrative 01/17/2021 1:32 PM EDT OBSTETRICS REPORT ?(Signed Final 01/17/2021 01:32 pm) PATIENT INFO: ID #: ? [id number] ?: ??[birth year] (25 yrs)(F) Name: ? MARY Polo ?Visit Date: 01/17/2021 11:51 am ? JORDON PERFORMED BY: Performed By: ? Lucie Villarreal RDMS Attending: ?Yasmin MEDINA, Rustam Mccallum Referred By: ?GRACE DESAI Location: ? [facility] SERVICE(S) PROVIDED: UOBFOL - Efw - Growth ??- [facility] - [id number] INDICATIONS: 32 weeks gestation of ?Z3A.32 systolic HF, third trimester VITAL SIGNS: Weight (lb): 215.0 Height: ?5'10 ?BMI: ? 30.85 EVALUATION: Num Of Fetuses: ? 1 Heart Rate(bpm): ??134 Cardiac Activity: ? Observed, normal rhythm Presentation: ? Cephalic Placenta: ? Anterior P. Cord Insertion: ?Within Normal Limits Amniotic Fluid CHRISTY FV: ?Normal CHRISTY Sum(cm) ? Largest Pocket(cm) 8.4 ? 2.7 RUQ(cm) ? RLQ(cm) ? LUQ(cm) ?LLQ(cm) 2.7 ? 1.2 ? 2.1 ?2.4 --------- BIOMETRY: --------- BPD: ?84.6 ??mm ? G.Age: ?? 34w 0d ?78 ??% OFD: ? 109.1 ??mm HC: ?309.5 ??mm ? G.Age: ?? 34w 4d ?58 ??% AC: ?292.0 ??mm ? G.Age: ?? 33w 1d ?60 ??% FL: ? 62.5 ??mm ? G.Age: ?? 32w 2d ?25 ??% HUM: ?54.7 ??mm ? G.Age: ?? 31w 6d ?37 ??% CER: ?44.1 ??mm ? G.Age: ?? 38w 1d ?> 95 ??% LV: ?4.0 ??mm CM: ?6.4 ??mm CI: ?77.5 ??% ? 70 - 86 FL/HC: ? 20.2 ??% ? 19.9 - 21.5 HC/AC: ? 1.06 ?0.96 - 1.11 FL/BPD: ?73.9 ??% ? 71 - 87 FL/AC: ? 21.4 ??% ? 20 - 24 Est. FW: ?2135 ??gm ?4 lb 11 oz ? 75 ??% GESTATIONAL AGE: U/S Today: ? 33w 4d ?ROHINI: ?? 03/03/21 Best: ?32w 6d ?? Det. By: ??Early ?ROHINI: ?? 03/08/21 ? Ultrasound ? (07/16/20) -------- ANATOMY: -------- Cranium: ? Visualized Cavum: ? Visualized Ventricles: ?Visualized Choroid Plexus: ?Visualized Cerebellum: ?Visualized Posterior Fossa: ? Visualized Nuchal Fold: ? Not evaluated at this gestational age Face: ?Limited views Heart: ? 4-chamber view appears normal RVOT: ?Visualized LVOT: ?Visualized Diaphragm: ? Visualized Stomach: ? Visualized Abdomen: ? Within Normal Limits Abdominal Wall: ?Not seen due to late gestational age Cord Vessels: ?3-vessels- WNL Kidneys: ? Visualized Bladder: ? Visualized Spine: ? Limited views Upper Extremities: ? Limited views Lower Extremities: ? Limited views CERVIX UTERUS ADNEXA: Right Ovary Not visualized Left Ovary Not visualized Procedure Note Rustam Hoffman MD - 01/17/2021 OBSTETRICS REPORT (Signed Final 01/17/2021 01:32 pm) PATIENT INFO: ID #: [id number] : [birth year] (25 yrs)(F) Name: MARY Polo Visit Date: 01/17/2021 11:51 am JORDON PERFORMED BY: Performed By: Lucie Villarreal RDMS Attending: Rustam Hoffman MD Referred By: GARCE DESAI Location: [facility] SERVICE(S) PROVIDED: UOBFOL - Efw - Growth - [facility] - [id number] INDICATIONS: 32 weeks gestation of Z3A.32 systolic HF, third trimester VITAL SIGNS: Weight (lb): 215.0 Height: 5'10 BMI: 30.85 EVALUATION: Num Of Fetuses: 1 Heart Rate(bpm): 134 Cardiac Activity: Observed, normal rhythm Presentation: Cephalic Placenta: Anterior P. Cord Insertion: Within Normal Limits Amniotic Fluid CHRISTY FV: Normal CHRISTY Sum(cm) Largest Pocket(cm) 8.4 2.7 RUQ(cm) RLQ(cm) LUQ(cm) LLQ(cm) 2.7 1.2 2.1 2.4 --------- BIOMETRY: --------- BPD: 84.6 mm G.Age: 34w 0d 78 % OFD: 109.1 mm HC: 309.5 mm G.Age: 34w 4d 58 % AC: 292.0 mm G.Age: 33w 1d 60 % FL: 62.5 mm G.Age: 32w 2d 25 % HUM: 54.7 mm G.Age: 31w 6d 37 % CER: 44.1 mm G.Age: 38w 1d > 95 % LV: 4.0 mm CM: 6.4 mm CI: 77.5 % 70 - 86 FL/HC: 20.2 % 19.9 - 21.5 HC/AC: 1.06 0.96 - 1.11 FL/BPD: 73.9 % 71 - 87 FL/AC: 21.4 % 20 - 24 Est. FW: 2135 gm 4 lb 11 oz 75 % GESTATIONAL AGE: U/S Today: 33w 4d ROHINI: 03/03/21 Best: 32w 6d Det. By: Early ROHINI: 03/08/21 Ultrasound (07/16/20) -------- ANATOMY: -------- Cranium: Visualized Cavum: Visualized Ventricles: Visualized Choroid Plexus: Visualized Cerebellum: Visualized Posterior Fossa: Visualized Nuchal Fold: Not evaluated at this gestational age Face: Limited views Heart: 4-chamber view appears normal RVOT: Visualized LVOT: Visualized Diaphragm: Visualized Stomach: Visualized Abdomen: Within Normal Limits Abdominal Wall: Not seen due to late gestational age Cord Vessels: 3-vessels- WNL Kidneys: Visualized Bladder: Visualized Spine: Limited views Upper Extremities: Limited views Lower Extremities: Limited views CERVIX UTERUS ADNEXA: Right Ovary Not visualized Left Ovary Not visualized IMPRESSION 3rd Trimester Summary Single intrauterine with a gestational age of 32w 6d based on Early Ultrasound (07/16/20) Composite age based on the current ultrasound alone is 33w 4d. Estimated weight corresponds to the 75th percentile for 32w 6d. Current growth parameters are consistent with prior dating indicating normal growth. Amniotic fluid volume is normal Anatomical survey is limited due to the late gestational age. Thank you for letting us participate in the care of this patient. If you are a health care provider and have any questions regarding this report, please contact the number above. For patients who have questions, please contact the health career development specialist that requested your imaging first. Rustam Hoffman, Staff Physician Electronically Signed Final Report 01/17/2021 01:32 pm Grace Desai MD IMG US OB ORDERABL ES * EKG 12 Lead (01/16/2021 5:09 PM EDT) Ventricular rate 88 BPM MUSE SYSTEM Atrial Rate 88 BPM MUSE SYSTEM P-R Interval 142 ms MUSE SYSTEM QRS Duration 90 ms MUSE SYSTEM Q-T Interval 384 ms MUSE SYSTEM QTC Calculated (Bezet) 464 ms MUSE SYSTEM Calculated P [place] 52 degrees MUSE SYSTEM Calculated R [place] 48 degrees MUSE SYSTEM Calculated T [place] 30 degrees MUSE SYSTEM INTERPRETATION Normal sinus rhythm with sinus arrhythmia Normal ECG When compared with ECG of 27-SEP-2020 11:04, No significant change was found Confirmed by MD Concepción, Adán Angelo ([id number]) on 01/16/2021 5:26:04 PM MUSE SYSTEM 01/16/2021 5:09 PM EDT 01/16/2021 5:26 PM EDT Grace Desai MD ECG ORDERABLES MUSE SYSTEM * Group B Streptococcus Screen (01/16/2021 4:57 PM EDT) GBS Screen Pos [facility] Vaginal/Rectal 01/16/2021 4: 57 PM EDT 01/16/2021 5:55 PM EDT Comment:Penicillin Allergy?- >No Narrative Resulting Agency Comment Spec In Lab Bri No MD MICROBIOLOGY - GENER AL ORDERABLES [facility] [place] [address] * COVID-19 PCR (01/16/2021 4:57 PM EDT) SARS-CoV-2 RNA (Rapid) Not Detected Not Detected [facility] Comment: This result should be interpreted in combination with the clinical observations, patient history and epidemiological information. For testing of asymptomatic individuals, assay performance characteristics and clinical utility have not been evaluated. Testing for SARS-CoV-2 (Severe acute respiratory syndrome coronavirus 2, formerly known as 2019 novel coronavirus or 2019-nCoV) to aid in the diagnosis of COVID-19 is performed using the Simplexa COVID-19 Direct Assay by [employer] as authorized by the FDA issued Emergency Use Authorization (EUA). This assay is intended for In-vitro Diagnostic (IVD) use with nasopharyngeal swabs collected from individuals meeting the [facility] criteria for testing. The assay is performed based on the instructions for use and additional guidance provided by the FDA. Testing is performed in the Microbiology Laboratory within the Department of Pathology and Laboratory Medicine at [facility], certified under the Clinical Laboratory Improvement Amendments of 1988 (CLIA), 42 U.S.C. section 263a, to perform high complexity tests. Assay performance has been verified according to clinical laboratory regulatory requirements. Test results are provided above. A result of Not Detected indicates that the viral RNA target is not present but does not preclude SARS-CoV-2 infection. False negative results may occur if a specimen is improperly collected, transported or handled; if amplification inhibitors are present; or if inadequate numbers of viral particles are present in the specimen. A result of Detected suggests a current or recent infection and the patient is presumed to be infected. Positive and negative predictive values for this test are highly dependent on disease prevalence. A result of Invalid indicates the inability to conclusively determine the presence or absence of SARS-CoV-2 RNA in the sample which can be due to a variety of factors. Recollection is recommended in the case of an invalid result. CDC COVID-19 criteria for testing on human specimens and clinical management guidance information are available at the CDC Coronavirus Disease 2019 (COVID-19) webpage under Information for Healthcare Professionals (https://www.cdc.gov/coronavirus/2019-ncov/hcp/index.html). Additional information about this and other EUA tests can be found in provider and patient fact sheets at the following FDA website: https://www.fda.gov/medical-devices/ruwadjlzutv-wqxopcj-0702-vvkup-92-avcgmeloa- use-a sgdmspchqgarc-gqealpv-ojtwkor/riugs-bzdesurcahs-hytu SARS-CoV-2 Source RECORD CHANGER Swab DE RY [facility] Nasopharyngeal Swab 01/17/20 4:57 PM EDT 01/16/2021 6:40 PM EDT Comment:Symptoms->Surveillan ce Narrative Resulting Agency Comment Spec In Lab Grace Desai MD MICROBIOLOGY - GEN ERAL ORDERABLES Performing Organization Address [facility] Co de Phone Number [facility] [place] [address] * (ABNORMAL) Group B Strep Culture Screen (01/16/2021 4:57 PM EDT) [facility] Group B Streptococcus Culture Beta Hemolytic Streptococci, Group B isolated(A) [facility] Organism Beta Hemolytic Streptococci, Group B(A) [facility] Vaginal/Rectal 01/16/2021 4: 57 PM EDT 01/16/2021 5:55 PM EDT Comment:Penicillin Allergy?- >No Narrative Resulting Agency Comment Spec In Lab Grace Desai MD MICROBIOLOGY - GEN ERAL ORDERABLES Performing Organization Address [facility] Co de Phone Number [facility] [place] [address] * Troponin (01/16/2021 4:48 PM EDT) Pathologist [facility] [place] Troponin-T <0.01 0.00 - 0.00 ng/mL [facility] Comment: The 99th percentile for Troponin T is less than 0.01 ng/mL, any detectable cTnT concentration using this assay should be considered elevated. According to the third universal definition of myocardial infarction the following criteria with a clinical presentation consistent with acute myocardial ischemia meets the diagnosis for a myocardial infarction (ME). Detection of a rise and/or fall of cTnT, with at least one value greater than the 99th percentile (> or = 0.01) and with at least one of the following ?? Symptoms of ischemia ?? New or presumed new significant AB-lbxdzed-X wave (ST-T) changes or new left bundle branch block (LBBB) ?? Development of pathologic Q waves in the ECG ?? Imaging evidence of new loss of viable myocardium or new regional wall motion abnormality ?? Identification of an intracoronary thrombus by angiography or autopsy Samples for cTnT testing should be obtained serially upon first assessment and again 3 to 6 hours later. If the clinical suspicion is high and previous samples have been negative an additional sample may be indicated. Reference: Third [place] Definition of Myocardial Infarction. Journal of the [place] [employer] 2012;60:1581-98 Blood Venous Draw / Unknown 01/16/2021 4:48 PM EDT 01/16/2021 4:50 PM EDT Narrative Resulting Agency Comment Spec In Lab Bri No MD CHEMISTRY ORDERABLES Performing Organization Address City/[facility]/ZIP Co de Phone Number [facility] [place] [address] * pro-Brain Natriuretic Peptide (01/16/2021 4:48 PM EDT) NT-proBNP 77 <=124 pg/mL [facility] Blood Venous Draw / Unknown 01/16/2021 4:48 PM EDT 01/16/2021 4:50 PM EDT Narrative Resulting Agency Comment Spec In Lab Bri No MD CHEMISTRY ORDERABLES Performing Organization Address City/[facility]/ZIP Co de Phone Number [facility] [place] [address] * (ABNORMAL) Differential, Automated (01/16/2021 4:48 PM EDT) Neutrophil % 67.9 % [facility] Neutrophil Absolute 9.01(H) 1.70 - 6.10 x10(3)/mc L [facility] Lymph % 18.6 % [facility] Lymphocytes Abs 2.5 0.9 - 3.2 x10(3)/mc L [facility] Monocyte % 8.4 % [facility] Monocyte Abs 1.1(H) 0.3 - 0.9 x10(3)/ L [facility] Eos % 2.0 % [facility] Eosinophils Abs 0.3 0.0 - 0.4 x10(3)/[facility] Basophil % 0.6 % [facility] Baso Absolute 0.1 0.0 - 0.1 x10(3)/[facility] Immature Gran % 2.50 % [facility] Comment: Immature granulocytes(IG's)percentage and absolute count will include metamyelocytes, myelocytes, and promyelocytes. Blood smears from CBCs yielding IG's will be scanned manually for concordance. If this scan disagrees with the automated IG or if promyelocytes are noted, a manual differential will be performed. Immature Gran Absolute 0.33(H) 0.00 - 0.04 x10(3)/[facility] Blood 01/16/2021 4:48 PM EDT 01/16/2021 4:48 PM EDT Narrative Resulting Agency Comment Spec In Lab Bri No MD HEMATOLOGY ORDERABLE S [facility] [place] [address] * (ABNORMAL) Hemogram (01/16/2021 4:48 PM EDT) White Blood Cell 13.3(H) 4.0 - 9.5 x10(3)/ L [facility] Red Blood Cell 4.20 4.00 - 5.21 x10(6)/ L [facility] Hemoglobin 11.6(L) 11.7 - 15.5 g/dL [facility] Hematocrit 36.8 35.7 - 45.8 % [facility] Mean Cell Volume 87.6 82.6 - 94.4 fL [facility] Mean Cell Hemoglobin 27.6 27.1 - 32.0 pg [facility] Mean Cell Hemoglobin Concentration 31.5(L) 31.7 - 35.0 g/dL [facility] Platelet 300 145 - 357 x10(3)/mc L [facility] RDW Standard Deviation 42.7 37.0 - 46.0 fL [facility] RDW coefficient of variation 13.3 11.5 - 14.1 % [facility] Mean Platelet Volume 10.0 7.6 - 12.9 fL [facility] NRBC% auto 0.0 % [facility] NRBC Absolute 0.000 0.000 - 0.000 x10(3)/mc L [facility] Blood 01/16/2021 4:48 PM EDT 01/16/2021 4:48 PM EDT Narrative Resulting Agency Comment Spec In Lab Bri No MD HEMATOLOGY ORDERABLE S [facility] [place] [address] * (ABNORMAL) Comprehensive metabolic panel (non-fasting) (01/16/2021 4:48 PM EDT) Glucose 76 65 - 199 mg/dL [facility] Comment:Diabetes: >=200 mg/d L plus symptoms Blood Urea Nitrogen 7(L) 8 - 18 mg/dL [facility] Creatinine 0.57(L) 0.70 - 1.20 mg/dL [facility] Sodium 137 135 - 145 mmol/L [facility] Potassium 3.7 3.5 - 5.0 mmol/L [facility] Comment: Please note: ??Patients with WBC >100,000 may have falsely elevated Potassium levels. ??For accurate Potassium quantification in these patients send serum separator tube (gold top) for subsequent determinations. ??Contact the Clinical Chemistry Laboratory if there are any questions. Chloride 102 98 - 107 mmol/L [facility] Carbon Dioxide 24 22 - 31 mmol/L [facility] Anion Gap 11 5 - 15 mmol/L [facility] Calcium 9.4 8.5 - 10.5 mg/dL [facility] Protein, Total 7.4 6.1 - 8.0 g/dL [facility] Albumin 3.9 3.2 - 5.2 g/dL [facility] Aspartate Aminotransferase 15 0 - 30 unit/L [facility] Alanine Aminotransferase 10 0 - 30 unit/L [facility] Alkaline Phosphatase 114(H) 35 - 105 unit/L [facility] Bilirubin, Total <0.2(L) 0.2 - 1.3 mg/dL [facility] Est Glomerular Filtration Rate 130 >=60 mL/min/1. 73 m?? [facility] Comment: This patient? s estimated glomerular filtration rate (eGFR) is between 130 mL/min/1.73 m2 (patients with less muscle mass) and 150 mL/min/1.73 m2 (patients with more muscle mass) [...] and symptoms in addition to eGFR. Blood 01/16/2021 4:48 PM EDT 01/16/2021 4:48 PM EDT Narrative Resulting Agency Comment Spec In Lab Grace Desai MD CHEMISTRY ORDERABL ES [facility] [place] [address] * Type and Screen Validity (01/16/2021 4:40 PM EDT) T&S only valid at [facility] Comment:This Type and Screen result is only valid at the [facility] Blood 01/16/2021 4:40 PM EDT 01/16/2021 4:49 PM EDT Narrative Resulting Agency Comment Spec In Lab Bri No MD BLOOD BANK LAB ORDER JERRY [facility] [place] [address] * ABORH Recheck Status (01/16/2021 4:40 PM EDT) ABORH Type Recheck Completed [facility] Blood 01/16/2021 4:40 PM EDT 01/16/2021 4:49 PM EDT Narrative Resulting Agency Comment Spec In Lab Bri No MD BLOOD BANK LAB ORDER JERRY Performing Organization Address City/[facility]/ZIP Co de Phone Number [facility] [place] [address] * Antibody screen (01/16/2021 4:40 PM EDT) Ab Screen Interp Negative [facility] Expires at [id number] on: 01/19/2021 [facility] Blood 01/16/2021 4:40 PM EDT 01/16/2021 4:49 PM EDT Narrative Resulting Agency Comment Spec In Lab Bri No MD BLOOD BANK LAB ORDER JERRY Performing Organization Address City/[facility]/ZIP Co de Phone Number [facility] [place] [address] * ABO/Rh Typing (01/16/2021 4:40 PM EDT) ABORH Type B Pos [facility] Blood 01/16/2021 4:40 PM EDT 01/16/2021 4:49 PM EDT Narrative Resulting Agency Comment Spec In Lab Bri No MD BLOOD BANK LAB ORDER JERRY ARIELA [facility] [place] [address] documented in this encounter Visit Diagnoses Diagnosis Cardiomyopathy, peripartum, antepartum Peripartum cardiomyopathy, antepartum condition or complication state Routine follow-up Chronic systolic heart failure 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 Supervision of high risk in third trimester Unspecified high-risk Maternal cardiovascular disease affecting in third trimester Cardiomyopathy, peripartum, antepartum Peripartum cardiomyopathy, antepartum condition or complication documented in this encounter Admitting Diagnoses Diagnosis Cardiomyopathy, peripartum, antepartum Peripartum cardiomyopathy, antepartum condition or complication documented in this encounter Administered Medications Inactive Administered Medications - up to 3 most recent administrations Medication Order MAR Action Action Date Dose Rate Site acetaminophen (Tylenol) tablet 650 mg 650 mg, Oral, EVERY 6 HOURS PRN, Starting on Wed01/17/21 at 1633, Until Wed01/23/21 at 1852, Pain, Maximum dose of acetaminophen is 4000 mg from all sources in 24 hours. When ordered for pain, acetaminophen should be given even when other ordered pain medications are indicated. , Routine Given 01/22/2021 5:57 PM EST 650 mg Given 01/19/2021 1:05 PM EST 650 mg Given 01/17/2021 4:54 PM EDT 650 mg acetaminophen (Tylenol) tablet 650 mg 650 mg, Oral, EVERY 6 HOURS SCHEDULED, First dose on Wed01/22/21 at 1800, Until Discontinued, Maximum dose of acetaminophen is 4,000 mg from all sources in 24 hours. Both acetaminophen and ibuprofen, if ordered, should be given even when other ordered pain medications are indicated., Routine Given 01/25/2021 2:25 PM EST 650 mg Given 01/25/2021 6:36 AM EST 650 mg Given 01/25/2021 1:09 AM EST 650 mg betamethasone acetate-betamethasone sodium phosphate (Cel[place]) (6 mg/mL) injection 12 mg 12 mg, Intramuscular, EVERY 24 HOURS, 2 doses, First dose on Wed01/16/21 at 1700, Last dose on Wed01/17/21 at 1700, Routine Given 01/17/2021 4:59 PM EDT 12 mg Given 01/16/2021 5:08 PM EDT 12 mg calcium carbonate (Tums) chewable tablet 1,000 mg 1,000 mg (2 tablet), Oral, EVERY 4 HOURS PRN, Starting on Angelita 01/16/21 at 1604, Until 01/25/21 at 1913, Heartburn, If both calcium carbonate (TUMS) and alum-mag hydroxide-simeth (MAALOX) ordered, administer calcium carbonate (TUMS) first, if ineffective administer alum-mag hydroxide-simeth (MAALOX)., Routine Given 01/19/2021 5:16 PM EST 1,000 mg Given 01/18/2021 6:23 PM EDT 1,000 mg Given 01/16/2021 5:56 PM EDT 1,000 mg citric acid-sodium citrate (Bicitra) (100 MG-66.8 mg/mL) oral liquid 30 mL 30 mL, Oral, ONCE, 1 dose, On Wed01/22/21 at 0800, STAT Given 01/22/2021 1:25 PM EST 30 mLs docusate sodium (Colace) capsule 100 mg 100 mg, Oral, 2 TIMES DAILY, First dose on Wed01/22/21 at 2100, Until Discontinued, Routine Given 01/25/2021 10:00 AM EST 100 mg Given 01/24/2021 9:10 PM EST 100 mg Given 01/24/2021 9:20 AM EST 100 mg enalapriL (Vasotec) tablet 5 mg 5 mg, Oral, NIGHTLY, First dose on Wed01/24/21 at 1845, Until Discontinued, Routine Given 01/24/2021 7:21 PM EST 5 mg EPINEPHrine (Adrenalin) (8 mcg/mL) in dextrose 5% 250 mL infusion 1 mcg/min (7.5 mL/hr), Intravenous, CONTINUOUS, Starting on Wed01/22/21 at 1830, Until Angelita 01/23/21 at 0755, Concentration: 8 mcg/mL. Warning Vesicant/Irritant Medication Rate/Dose Verify 01/23/2021 4:00 AM EST 0.507 mcg/min 3.8 mL/hr Rate/Dose Verify 01/23/2021 2:00 AM EST 0.507 mcg/min 3.8 mL/hr Rate/Dose Verify 01/23/2021 12:00 AM EST 0.507 mcg/min 3.8 mL/hr heparin (porcine) (5,000 units/1 mL) subcutaneous injection 5,000 Units 5,000 Units, Subcutaneous, EVERY 12 HOURS SCHEDULED (2 times per day), First dose on Wed01/22/21 at 2100, Until Discontinued, Routine Given 01/25/2021 10:00 AM EST 5,000 Units Given 01/24/2021 9:10 PM EST 5,000 Units A bdominal Tissue Given 01/24/2021 9:20 AM EST 5,000 Units heparin (porcine) (5,000 units/1 mL) subcutaneous injection 7,500 Units 7,500 Units, Subcutaneous, EVERY 12 HOURS SCHEDULED (2 times per day), 7 doses, First dose on Wed01/17/21 at 1115, Last dose on Wed01/20/21 at 1700, Routine Given 01/20/2021 5:08 PM EST 7,500 Units Given 01/20/2021 4:11 AM EST 7,500 Units Given 01/19/2021 5:08 PM EST 7,500 Units R ight Arm ketorolac (Toradol) (15 mg/mL) injection 15 mg 15 mg, Intravenous, EVERY 6 HOURS, 5 doses, First dose on Wed01/23/21 at 0945, Last dose on Wed01/24/21 at 0945, Routine Given 01/24/2021 12:00 PM EST 15 mg Given 01/24/2021 6:00 AM EST 15 mg Given 01/23/2021 11:50 PM EST 15 mg lidocaine (Lidoderm) 5% patch 1 patch 1 patch, Transdermal, EVERY 24 HOURS, First dose (after last modification) on Wed01/23/21 at 2000, Until Discontinued, Apply patch(es) for 12 hours, and then remove for 12 hours., Routine Patch Applied 01/24/2021 9:20 PM EST 1 patch 13- Abdomen (Left) Patch Applied 01/23/2021 9:43 PM EST 1 patch 13- Abdomen (Left) lidocaine (Lidoderm) topical patch REMOVAL Transdermal, EVERY 24 HOURS, First dose (after last modification) on Wed01/24/21 at 0800, Until Discontinued, Remove lidocaine 5% patch lidocaine (Xylocaine) 1% (10 mg/mL) injection 3 mg 3 mg (0.3 mL), Subcutaneous, ONCE PRN, 1 dose, Starting on Wed01/16/21 at 1603, Until 01/25/21 at 1913, for discomfort with PIV insertion, Routine lidocaine (Xylocaine) 2 % jelly 1 Bottle 1 Bottle, Topical (Top), ONCE PRN, Pain, Repair of laceration following delivery and/or prior to urinary catheter placement., Starting on Angelita 01/16/21 at 1552, 1 dose, Until 01/25/21 at 1913 melatonin tablet 12 mg 12 mg, Oral, NIGHTLY, First dose on 01/21/21 at 2145, Until Discontinued, Routine Given 01/24/2021 9:25 PM EST 12 mg Given 01/23/2021 11:49 PM EST 12 mg Given 01/22/2021 8:25 PM EST 12 mg melatonin tablet 3 mg 3 mg, Oral, NIGHTLY, First dose on 01/19/21 at 2100, Until Discontinued, Routine Given 01/20/2021 9:17 PM EST 3 mg Given 01/19/2021 8:36 PM EST 3 mg melatonin tablet 6 mg 6 mg, Oral, NIGHTLY, First dose on 01/20/21 at 2215, Until Discontinued, Routine Given 01/20/2021 9:45 PM EST 3 mg metoprolol succinate XL (Toprol-XL) tablet 25 mg 25 mg, Oral, EVERY EVENING, First dose on Angelita 01/16/21 at 1700, Until Discontinued, DO NOT CRUSH OR OPEN, Routine Given 01/21/2021 5:24 PM EST 25 mg Given 01/20/2021 5:11 PM EST 25 mg Given 01/19/2021 5:07 PM EST 25 mg metoprolol succinate XL (Toprol-XL) tablet 25 mg 25 mg, Oral, DAILY, First dose on 01/25/21 at 0900, Until Discontinued, DO NOT CRUSH OR OPEN, Routine Given 01/25/2021 10:00 AM EST 25 mg metoprolol tartrate (Lopressor) tablet 12.5 mg 12.5 mg, Oral, EVERY 6 HOURS SCHEDULED, First dose on Angelita 01/23/21 at 1200, Until Discontinued, Routine Given 01/24/2021 12:07 PM EST 12.5 mg Given 01/24/2021 6:00 AM EST 12.5 mg Given 01/23/2021 11:48 PM EST 12.5 mg midazolam (pf) (Versed) (1 mg/mL) injection 0.5 mg 0.5 mg, Intravenous, ONCE, 1 dose, On Wed01/17/21 at 1400, Prior to PICC, Routine Given 01/17/2021 1:23 PM EDT 0.5 mg ondansetron (pf) (Zofran) (2 mg/mL) injection 4 mg 4 mg, Intravenous, EVERY 8 HOURS PRN, Starting on Angelita 01/16/21 at 1604, Until 01/25/21 at 1913, Nausea, Vomiting, May repeat in 30 minutes if inefffective oxyCODONE (Roxicodone) tablet 10 mg 10 mg, Oral, EVERY 4 HOURS PRN, Starting on Wed01/22/21 at 1630, Until 01/25/21 at 1913, Pain, for pain scale 9-10, Routine Given 01/24/2021 4:07 PM EST 10 mg Given 01/23/2021 5:49 AM EST 10 mg oxyCODONE (Roxicodone) tablet 5 mg 5 mg, Oral, EVERY 4 HOURS PRN, Starting on Wed01/22/21 at 1630, Until 01/25/21 at 1913, Pain, for pain scale 6-8, Routine Given 01/24/2021 9:33 PM EST 5 mg Given 01/24/2021 9:26 AM EST 5 mg Given 01/23/2021 6:41 PM EST 5 mg polyethylene glycoL (Miralax) packet 17 g 17 g, Oral, DAILY PRN, Starting on Wed01/22/21 at 1630, Until 01/25/21 at 1913, Constipation, Routine Given 01/25/2021 10:14 AM EST 17 g ROpivacaine (Naropin) 0.2% (2 mg/mL) epidural (PCEA) Epidural, PCEA Dose: 2 mL, PCEA Frequency: Every 20 minutes New Bag 01/22/2021 6:46 PM EST 2 mL/hr 2 m L/hr sertraline (Zoloft) tablet 25 mg 25 mg, Oral, DAILY, First dose on Angelita 01/23/21 at 1000, Until Discontinued, Routine Given 01/25/2021 10:00 AM EST 25 mg Given 01/24/2021 9:20 AM EST 25 mg Given 01/23/2021 9:43 AM EST 25 mg simethicone (Mylicon) chewable tablet 80 mg 80 mg, Oral, 4 TIMES DAILY PRN, Starting on Wed01/22/21 at 1630, Until 01/25/21 at 1913, Cramping, gas pain, Routine sodium chloride 0.9 % (flush) (BD PosiFlush Normal Saline 0.9) flush 5 mL 5 mL, Intravenous, 2 TIMES DAILY, First dose on Wed01/16/21 at 2100, Until Discontinued, Routine Given 01/25/2021 10:00 AM EST 5 mLs Given 01/24/2021 9:14 PM EST 5 mLs Given 01/23/2021 9:34 PM EST 5 mLs sodium chloride 0.9 % (flush) (BD PosiFlush Normal Saline 0.9) flush 5-20 mL 5-20 mL, Intravenous, EVERY 1 MIN PRN, Starting on Wed01/16/21 at 1603, Until 01/25/21 at 1913, flush, Flush pertains to all indwelling lines. Flush per protocol found in the job aid using the link provided on this medication record., Routine Given 01/23/2021 9:36 PM EST 10 mLs Given 01/21/2021 8:34 PM EST 10 mLs Given 01/21/2021 8:33 PM EST 10 mLs spironolactone (Aldactone) tablet 12.5 mg 12.5 mg, Oral, DAILY, First dose on 01/25/21 at 1230, Until Discontinued, DO NOT SPLIT, CRUSH OR OPEN, Routine Given 01/25/2021 2:25 PM EST 12.5 mg documented in this encounter Active and Recently Administered Medications Times are shown in EST. Scheduled Medication Order 01/23/2021 01/24/2021 01/25/2021 acetaminophen (Tylenol) tablet 650 mg 650 mg, Oral, EVERY 6 HOURS SCHEDULED, First dose on Wed01/22/21 at 1800, Until Discontinued, Maximum dose of acetaminophen is 4,000 mg from all sources in 24 hours. Both acetaminophen and ibuprofen, if ordered, should be given even when other ordered pain medications are indicated., Routine 0550 (Given - Provider: Tanya Obrien RN)1148 (Given - Provider: Tiana Sun, WILLOW)1724 (Given - Provider: Kiera Saab, WILLOW)2347 (Given - Provider: Chanda Parra, WILLOW) 0600 (Given - Provider: Chanda Parra, WILLOW)1201 (Given - Provider: Sravanthi Ramirez, WILLOW)1921 (Given - Provider: Sravanthi Ramirez, WILLOW) 0109 (Given - Provider: Shi Zendejas RN)0636 (Given - Provider: Shi Zendejas RN)1425 (Given - Provider: Shandra Mccormick, WILLOW) docusate sodium (Colace) capsule 100 mg 100 mg, Oral, 2 TIMES DAILY, First dose on Wed01/22/21 at 2100, Until Discontinued, Routine 0943 (Given - Provider: Tiana Sun RN)2129 (Given - Provider: Wendy Del Valle RN) 09 (Given - Provider: Sravanthi Ramirez RN)2109 (Given - Provider: Shi Zendejas RN) 1000 (Given - Provider: Shandra Mccormick, WILLOW) enalapriL (Vasotec) tablet 5 mg 5 mg, Oral, NIGHTLY, First dose on Wed01/24/21 at 1845, Until Discontinued, Routine 192 (Given - Provider: Sravanthi Ramirez RN) heparin (porcine) (5,000 units/1 mL) subcutaneous injection 5,000 Units 5,000 Units, Subcutaneous, EVERY 12 HOURS SCHEDULED (2 times per day), First dose on Wed01/22/21 at 2100, Until Discontinued, Routine 0943 (Given - Provider: Tiana Sun RN)2130 (Given - Provider: Wendy Del Valle RN) 919 (Given - Provider: Sravanthi Ramirez RN)2109 (Given - Provider: Shi Zendejas RN) 1000 (Given - Provider: Shandra Mccormick, WILLOW) ketorolac (Toradol) (15 mg/mL) injection 15 mg (COMPLETED)(Linked Group 1) 15 mg, Intravenous, EVERY 6 HOURS, 5 doses, First dose on Wed01/23/21 at 0945, Last dose on Wed01/24/21 at 0945, Routine 0943 (Given - Provider: Tiana Sun RN)1725 (Given - Provider: Kiera Saab, WILLOW)2350 (Given - Provider: Chanda Parra RN) 0600 (Given - Provider: Chanda Parra RN)1200 (Given - Provider: Sravanthi Ramirez RN) lidocaine (Lidoderm) 5% patch 1 patch(Linked Group 2) 1 patch, Transdermal, EVERY 24 HOURS, First dose (after last modification) on Wed01/23/21 at 2000, Until Discontinued, Apply patch(es) for 12 hours, and then remove for 12 hours., Routine 214 (Patch Applied - Provider: Chanda Parra RN) 212 (Patch Applied - Provider: Shi Zendejas RN) lidocaine (Lidoderm) topical patch REMOVAL(Linked Group 2) Transdermal, EVERY 24 HOURS, First dose (after last modification) on Wed01/24/21 at 0800, Until Discontinued, Remove lidocaine 5% patch 0900 (Patch Removed - Provider: Sravanthi Ramirez RN) 0800 (Patch Removed - Provider: Shandra Mccormick RN) melatonin tablet 12 mg 12 mg, Oral, NIGHTLY, First dose on Wed01/21/21 at 2145, Until Discontinued, Routine 2349 (Given - Provider: Chanda Parra RN) 212 (Given - Provider: Shi Zendejas RN) metoprolol succinate XL (Toprol-XL) tablet 25 mg 25 mg, Oral, DAILY, First dose on Wed01/25/21 at 0900, Until Discontinued, DO NOT CRUSH OR OPEN, Routine 1000 (Given - Provider: Shandra Mccormick RN) metoprolol tartrate (Lopressor) tablet 12.5 mg (CANCELED) 12.5 mg, Oral, EVERY 6 HOURS SCHEDULED, First dose on Wed01/23/21 at 1200, Until Discontinued, Routine 1148 (Given - Provider: Tiana Sun RN)1724 (Given - Provider: Kiera Saab RN)2348 (Given - Provider: Chanda Parra RN) 0600 (Given - Provider: Chanda Parra RN)1207 (Given - Provider: Sravanthi Ramirez, WILLOW) sertraline (Zoloft) tablet 25 mg 25 mg, Oral, DAILY, First dose on Angelita 01/23/21 at 1000, Until Discontinued, Routine 0943 (Given - Provider: Tiana Sun RN) 0920 (Given - Provider: Sravanthi Ramirez RN) 1000 (Given - Provider: Shandra Mccormick, WILLOW) sodium chloride 0.9 % (flush) (BD PosiFlush Normal Saline 0.9) flush 5 mL 5 mL, Intravenous, 2 TIMES DAILY, First dose on Wed01/16/21 at 2100, Until Discontinued, Routine 0944 (Given - Provider: Tiana Sun RN)2134 (Given - Provider: Wendy Del Valle RN) 0900 (Due - Provider: Yary Roach)2113 (Given - Provider: Shi Zendejas RN) 1000 (Given - Provider: Shandra Mccormick RN) spironolactone (Aldactone) tablet 12.5 mg 12.5 mg, Oral, DAILY, First dose on Wed01/25/21 at 1230, Until Discontinued, DO NOT SPLIT, CRUSH OR OPEN, Routine 1425 (Given - Provider: Shandra Mccormick RN) Continuous Medication Order 01/23/2021 01/24/2021 01/25/2021 EPINEPHrine (Adrenalin) (8 mcg/mL) in dextrose 5% 250 mL infusion (CANCELED) 1 mcg/min (7.5 mL/hr), Intravenous, CONTINUOUS, Starting on Wed01/22/21 at 1830, Until Wed01/23/21 at 0755, Concentration: 8 mcg/mL. Warning Vesicant/Irritant Medication 0000 (Rate/Dose Verify - Provider: Tanya Obrine RN)0200 (Rate/Dose Verify - Provider: Tanya Obrien RN)0400 (Rate/Dose Verify - Provider: Tanya Obrien RN)0419 (Stopped - Provider: Tanya Obrien RN) PRN Medication Order 01/23/2021 01/24/2021 01/25/2021 calcium carbonate (Tums) chewable tablet 1,000 mg 1,000 mg (2 tablet), Oral, EVERY 4 HOURS PRN, Starting on Angelita 01/16/21 at 1604, Until 01/25/21 at 1913, Heartburn, If both calcium carbonate (TUMS) and alum-mag hydroxide-simeth (MAALOX) ordered, administer calcium carbonate (TUMS) first, if ineffective administer alum-mag hydroxide-simeth (MAALOX)., Routine lidocaine (Xylocaine) 1% (10 mg/mL) injection 3 mg 3 mg (0.3 mL), Subcutaneous, ONCE PRN, 1 dose, Starting on Angelita 01/16/21 at 1603, Until 01/25/21 at 1913, for discomfort with PIV insertion, Routine lidocaine (Xylocaine) 2 % jelly 1 Bottle 1 Bottle, Topical (Top), ONCE PRN, Pain, Repair of laceration following delivery and/or prior to urinary catheter placement., Starting on Angelita 01/16/21 at 1552, 1 dose, Until 01/25/21 at 1913 ondansetron (pf) (Zofran) (2 mg/mL) injection 4 mg 4 mg, Intravenous, EVERY 8 HOURS PRN, Starting on Angelita 01/16/21 at 1604, Until 01/25/21 at 1913, Nausea, Vomiting, May repeat in 30 minutes if inefffective oxyCODONE (Roxicodone) tablet 10 mg(Linked Group 3) 10 mg, Oral, EVERY 4 HOURS PRN, Starting on Wed01/22/21 at 1630, Until 01/25/21 at 1913, Pain, for pain scale 9-10, Routine 0549 (Given - Provider: Tanya Obrien RN)1250 (See Alternative - Provider: Kiera Saab RN)1841 (See Alternative - Provider: Kiera Saab RN) 0926 (See Alternative - Provider: Sravanthi Ramirez, WILLOW)1607 (Given - Provider: Sravanthi Ramirez, WILLOW)2133 (See Alternative - Provider: Shi Zendejas RN) oxyCODONE (Roxicodone) tablet 5 mg(Linked Group 3) 5 mg, Oral, EVERY 4 HOURS PRN, Starting on Wed01/22/21 at 1630, Until 01/25/21 at 1913, Pain, for pain scale 6-8, Routine 0549 (See Alternative - Provider: Tanya Obrien, WILLOW)1250 (Given - Provider: Kiera Saab, WILLOW)1841 (Given - Provider: Kiera Saab RN) 0926 (Given - Provider: Sravanthi Ramirez, WILLOW)1607 (See Alternative - Provider: Sravanthi Ramirez, WILLOW)2133 (Given - Provider: Shi Zendejas RN) polyethylene glycoL (Miralax) packet 17 g 17 g, Oral, DAILY PRN, Starting on Wed01/22/21 at 1630, Until 01/25/21 at 1913, Constipation, Routine 1014 (Given - Provider: Shandra Mccormick RN) simethicone (Mylicon) chewable tablet 80 mg 80 mg, Oral, 4 TIMES DAILY PRN, Starting on Wed01/22/21 at 1630, Until 01/25/21 at 1913, Cramping, gas pain, Routine sodium chloride 0.9 % (flush) (BD PosiFlush Normal Saline 0.9) flush 5-20 mL 5-20 mL, Intravenous, EVERY 1 MIN PRN, Starting on Angelita 01/16/21 at 1603, Until 01/25/21 at 1913, flush, Flush pertains to all indwelling lines. Flush per protocol found in the job aid using the link provided on this medication record., Routine 2135 (Given - Provider: Wendy Del Valle, WILLOW) Linked Groups Order Group 1: ketorolac (Toradol) (15 mg/mL) injection 15 mg (COMPLETED)Jump to med 15 mg, Intravenous, EVERY 6 HOURS, 5 doses, First dose on Angelita 01/23/21 at 0945, Last dose on Wed01/24/21 at 0945, Routine Followed by ibuprofen (Advil) tablet 600 mg (CANCELED) 600 mg, Oral, EVERY 6 HOURS, First dose on Wed01/24/21 at 1545, Until Discontinued, - Begin after ketorolac discontinued. , Routine Group 2: lidocaine (Lidoderm) 5% patch 1 patchJump to med 1 patch, Transdermal, EVERY 24 HOURS, First dose (after last modification) on Angelita 01/23/21 at 2000, Until Discontinued, Apply patch(es) for 12 hours, and then remove for 12 hours., Routine And lidocaine (Lidoderm) topical patch REMOVALJump to med Transdermal, EVERY 24 HOURS, First dose (after last modification) on Wed01/24/21 at 0800, Until Discontinued, Remove lidocaine 5% patch Group 3: oxyCODONE (Roxicodone) tablet 5 mgJump to med 5 mg, Oral, EVERY 4 HOURS PRN, Starting on Wed01/22/21 at 1630, Until 01/25/21 at 1913, Pain, for pain scale 6-8, Routine Or oxyCODONE (Roxicodone) tablet 10 mgJump to med 10 mg, Oral, EVERY 4 HOURS PRN, Starting on Wed01/22/21 at 1630, Until 01/25/21 at 1913, Pain, for pain scale 9-10, Routine documented in this encounter Additional Health Concerns Infection Onset Date Last Indicated Resolved Time Rule Out COVID-19 01/23/2021 01/23/2021 01/23/2021 5:16 PM EST documented as of this encounter Care Teams [employer] Relationship Specialty Start Date End Date Pietro Son PA [address] [place] [address] PCP - General Internal Medicine 09/27/20 documented as of this encounter
--- OUTSIDE RECORDS SUMMARY | 2024-01-03 13:11 | XMS_ITS | Encounter Summary ---
Author Organization Formerly [facility] Address [facility] [place] [address] Care Team Providers Care Counter Stitcher Name Role Phone Pietro Son Primary Care Provider [phone] Reason for Visit * Auth/Cert Specialty Diagnoses / Procedures Referred By Contcarla t Referred To Contact Diagnoses Cardiomyopathy, peripartum, antepartum AND TUBAL Procedures PRO DELIVERY ONLY PRO REMOVAL OF FALLOPIAN TUBE @ DELIVERY (WRVU 16.13) @SALPINGECTOMY (WRVU 12.95) Referral ID Status Reason Start Date Expiration Date Visits Re quested Visits Authorized [id number] 1 1 Encounter Details Date Type Department Care Team ([facility] Contact Info) Description 01/22/2021 1:30 PM EST - 01/22/2021 5:15 PM EST [place] [id number] Reuben Cuellar MD [facility] [place] [address] @ DELIVERY (WRVU 16.13) Social History Tobacco Use Types Packs/Day Years [...] Sign Reading Time Taken Comments Blood Pressure 111/57 01/22/2021 9:23 AM EST Pulse 81 01/22/2021 5:15 PM EST Temperature 36.7 ??C (98.1 ??F) 01/22/2021 4:45 PM ES T Respiratory Rate 19 01/22/2021 5:15 PM EST Oxygen Saturation 96% 01/22/2021 5:15 PM EST Inhaled Oxygen Concentration - - Weight 96.1 kg (211 lb 13.8 oz) 01/22/2021 6:24 AM EST Height 177.8 cm (5' 10) 01/20/2021 8:07 AM EST Body Mass Index 30.13 01/20/2021 8:07 AM EST documented in this encounter Discharge Summaries * Thao Whitt MD - 01/25/2021 5:13 PM EST Images from the original note were not included. Discharge Summary Patient Name: Mary Porras Patient Age: 25 y.o. Language: Palauan Race: White Ethnicity: Not nor Admit date: 01/16/2021 Discharge date and time: 01/25/2021 Attending Physician: Mandie Mauro MD Discharge Physician: Grace Desai MD Care Provider: [facility] Maternal Medicine Referring Hospital: N/A Follow-up Recommendations for Providers: - follow up with cardiology 01/27 or 01/28 (to be arranged by Dr. Márquez - 2 week mood check - 6 week follow up (MFM) Inpatient Provider Contact Information: [facility] TELETYPESETTER Department, Discharge Diagnoses (Hospital Problems) and Secondary [...] this . Denies associated CP, syncope, orthopnea, STROUD, vision changes, recent viral illnesses, GI or symptoms. ?? From a labor standpoint,??No VB. No ctx. No LOF. Good mvt. Her sBP has been in 100s. Currently taking Metoprolol XL 25 mg qHS and was recently asked to start digoxin per Cardiology. 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 Her has been??complicated by the following:? 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 TTE (01/14/21): Severely dilated LV. EF 35% (reduced from 54% in 9/28/21). Diffuse hypokinesis, except for basal anterolateral & [...] post-partumperiod. [facility] due to clinical stability. ?? [facility], the patient reported a new sore throat, which was mild. She was re-tested for COVID-19 given that she was having this symptom and requested to visit her in the ICN. Her repeat COVID PCR [...] failure medication regimen as well as with [facility] OB (GIA). Delivery Information Information for the patient's : Steve Porras Girl [[id number]] INFORMATION Baby Walt Porras 01/22/2021 3:24 PM by Lower Segment Transverse Sex: female Gestational Age: 33w4d Measurements: Weight: 4 lb 9.4 oz (2080 [...] PCR Not Detected Not Detected SARS-CoV-2 Source PROFESSOR OF COMMUNICATION ARTS Swab Basic Metabolic Panel (non-fasting) Result Value [...] 25 mg Quantity: 90 tablet Refills: 5 [id number] FUM-FOLIC AC-OM3 ORAL Take by mouth. Refills: [...] Depression Contact Numbers: If you see an drawer waxer call: [phone] 9 am - 5 pm, after 5 pm If you see a banner painter call: [phone] all hours If you see a family practitioner call: [phone] all hours If you were transferred to our institution for delivery and cannot reach your local OB provider, call the drawer waxer numbers. Diet: You may resume your regular [...] directed Process Instructions: Scheduling Instructions: Comments: Mary C Chiquita 1995 [address] [address] (home) Infant's Legal name: Debbie Phelan Infant's : 01/22/21 Insurance: MEDICAID [place] Payor Plan Address Payor Plan Phone Number Payor Plan Fax Number Effective Dates [address] 04/26/2019 - None Entered [facility] [id number] Subscriber Name Subscriber Date Member ID MARY PORRAS 1995 [id number] [employer] # [phone] Symphony breast pump [id number] Length of need: [...] not provide sufficient milk for this baby. [facility] NPI #: [id number] DEPARTMENT [facility] HEALTH ACCESS [place] MEDICA[place] MEDICAL NECESSITY FORM (MNF) ORTHOTICS, PROSTHETICS, MEDICAL SUPPLIES & EQUIPMENT All claims for supplies and equipment require a written order. Orders must be signed by a physician, physician certified medical assistant, or nurse practitioner. All home health [...] or on other documentation submitted to the [facility] and [facility]. The codes submitted to [facility] and C must matchthe description documented by the ordering provider. All orders must adhere to state and federal rules and regulations. [place] Medicaid Rules can be found online at http://humanservices.[place].[facility]/qz-lhra-ftgbe. Section A: (must be completed or reviewed and signed by ordering provider) Beneficiary's name: Mary Porras Medicaid ID#: Insurance: [place] Pay[place] Plan Address Payor Plan Phone Number Payor Plan Fax Number Effective Dates [address] 04/26/2019 - None Entered [facility] [address] Subscriber Name Subscriber Date Member ID MARY PORRAS 1995 [id number] Diagnoses: /Lactating Mother- Z39.1 Breast Engorgement relative to born at 33 weeks 4 days gestation Feeding problem of , unspecified P92.9 Premature in ICN from mother P07.30 A standard breast pump will not provide sufficient milk for this baby. Place of service: Is the beneficiary living in a mcfp facility? Yes [ ] No[x] Is the [...] Please see ordering physician signature below - [facility], [address] [place] [address] 6. Ordering provider's signature: Pl ease see order signature below. Date signed: Please see signedorder date 7. Ordering provider's Medicaid provider #: [id number] Phone#: [phone] See back of form for DME information [...] identified in the Provider Manual, available at: www.[employer], [email or web address].com. For exceptions, an MNF must be kept on file by the DME supplier. Prior Authorization: The DME supplier must include a copy of an MNF with every Prior Authorization request. Fax the MNF and any other supporting documents to the [facility] at . Use of this [facility] Medical Necessity Form is recommended for all prior authorization requests to ensure timely processing. Medicaid may request a copy of the medical record upon audit. *INSTRUCTIONS FOR SECTIONS A & B* Section A must be completed or reviewed, signed, and dated by the ordering physician/physician certified medical assistant/nurse practitioner. Section B must be completed [...] must appear on other documentation submitted to [facility] for PA and to [facility] for billing), medical necessity rationale, expected length of need (will be interpreted as months unless stated otherwise), and the number ofitems needed (for example: 2 bottles of sterile saline per month). NOTE: If the quantity ordered ismore than the number allowed (based on customary usage and as listed in the [facility] DME Restriction list, available at: http://[facility].[place].[facility]/for-providers/sdqvymqh-notdkxwg-edfrtousbo), an explanation from the physician is required. [...] Referral to Home Health - at DISCHARGE [MTC8253 CPT(R)] As directed Process Instructions: Scheduling Instructions: Comments: DOCUMENTATION FOR VNA SERVICES (INCLUDING THOSE PATIENTS WITH MEDICARE COVERAGE REQUIRING HOME VNA SERVICES AND/OR HOSPICE SERVICES) PATIENT'S LOCATION: Mary Porras [address] [place] [address] (home) Cell: Telephone Information: Patient will be staying at [address] [address] Help Desk Team Leader's Name: Self In discussion with the attending physician, it is certified that this patient is under their care and that they, or a Nurse Practitioner,Clinical Nurse specialist or Physician Mattress Renovator who is working directly with them, had [...] AGENCY: [facility] PHONE: [phone] FAX: [phone] RN orders: 1. Assess /postoperative recovery 2. [...] this patient's PCP: GABRIELLA [address] [place] [address] OR [facility] OB Team [phone]. All VNA agencies which cover the area of patient's residence have been reviewed, either verbally sharan writing, and patient/family have chosen the home health care agency noted. Questions: Agency name and contact information: [facility] Patient location post discharge: Home What services are requested: Registered Nurse Start date: Responsible MD post discharge contact info: [facility] OB Team Discharge References/Attachments Depression: (Palauan) documented in this encounter Discharge Instructions * [...] Depression Contact Numbers: If you see an drawer waxer call: [phone] 9 am - 5 pm, after 5 pm If you see a banner painter call: [phone] all hours If you see a family practitioner call: [phone] all hours If you were transferred to our institution for delivery and cannot reach your local OB provider, call the drawer waxer numbers. Diet: You may resume your regular [...] be sent through Care Everywhere. * Depression: (Palauan) documented in this encounter Medications at Time [...] hours) 30 patch 01/25/2021 03/10/2021 vit 75/iron/folic/om3 ([id number] FUM-FOLIC AC-OM3 ORAL) Take by mouth. 08/16/2020 [...] RN - 01/25/2021 2:56 PM EST 01/25/21 145 [REMOVED] PICC Line - Double Lumen 01/17/211407 [...] with EF 30%. She was admitted to [facility] POD#0 to POD#1 and remained clinically stable, [...] [facility] with MFM, Heart Failure Team, and Cardiology following. She [...] afternoon as previously discussed. Jareth Hester DO Gis Physical Scientist; PGY-6 01/25/2021 * Sintia Da Silva RN [...] 01/24/2021 3:17 PM EST OFFICE OF CARE MANAGEMENT/machine sole leveler Patient will not be discharging with PICC. VNA orders updated. [facility] notified. Arlene Long RN Case Manager [facility] [phone] Pager [phone] DOCUMENTATION FOR VNA SERVICES (INCLUDING THOSE PATIENTS WITH MEDICARE COVERAGE REQUIRING HOME VNA SERVICES AND/OR HOSPICE SERVICES) PATIENT'S LOCATION: Mary Porras [address] [address] (home) Cell: Telephone Information: [place] [address] Help Desk Team Leader's Name: Self In discussion with the attending physician, it is certified that this patient is under their care and that they, or a Nurse Practitioner,Clinical Nurse specialist or Physician Mattress Renovator who is working directly with them, had [...] AGENCY: [facility] PHONE: [phone] FAX: [phone] RN orders: 1. Assess /postoperative recovery 2. [...] this patient's PCP: GABRIELLA [address] [place] [address] OR [facility] OB Team [phone]. All VNA agencies which cover the area of patient's residence have been reviewed, either verbally sharan writing, and patient/family have chosen the home health care agency noted. * Anton Márquez MD - 01/24/2021 2:57 PM EST CARDIOLOGY CONSULT NOTE Patient Name: Mary Porras Service: OBTeam Responsible Attending: MD Zunilda PCP: GABRIELLA Mayer PCP phone #: [phone] CC: Peripartum CDMO ON Events: No events overnight. The pt was transferred from the [facility] yesterday as she has been stable in [...] mouthdaily. 90 tablet 2 ??? vit 75/iron/folic/om3 ([id number]-TMIA FUM-FOLIC AC-OM3 ORAL) Take by mouth. Allergies: [...] exam. No deficits. Laboratory: CBC: Recent Labs 01/24/2131801/23/2131901/16/21 1648 WBC 11.2* 16.1* 13.3* HGB 10.4* [...] change in clinical status, please contact the emt/dispatcher -See Dr. Márquez's separate documentation for details of the plan. Allan Wilkinson Gis Physical Scientist * Arlene Long RN - 01/24/2021 2:49 PM EST OFFICE OF CARE MANAGEMENT/machine sole leveler Patient needs hospital grade rental pump. Approval for rental pump received from Sandra at [facility]. Patient given rental breast pump number [id number] from [employer]. Rental of pump is covered by her insurance for 3 months. Arlene Long RN Case Manager [facility] [phone] Pager [phone] Mary Porras 1995 [address] [address] (home) 's Legal name: Debbie Phelan 's : [birth year] Insurance: [place] Pay[place] Plan Address Payor Plan Phone Number Payor Plan Fax Number Effective Dates [address] 04/26/2019 - None Entered [facility] [phone] Subscriber Name Subscriber Date Member ID MARY PORRAS 1995 [id number] [employer] # [phone] Symphony breast pump [id number] Length of need: 3 months Infant's diagnosis: born at 33 weeks 4 days Purpose of Appliance: To Initiate and Maintain Medical Necessity: /Lactating Mother- Z39.1 Breast Engorgement relative to infant born at 33 weeks 4 days gestation Feeding problem of , unspecified P92.9 Premature in ICN from mother P07.30 A standard breast pump will not provide sufficient milk for this baby. [facility] NPI #: [id number] DEPARTMENT [facility] HEALTH [place]ESS [place] MEDICAL NECESSITY FORM (MNF) ORTHOTICS, PROSTHETICS, MEDICAL SUPPLIES & EQUIPMENT All claims for supplies and equipment require a written order. Orders must be signed by a physician, physician certified medical assistant, or nurse practitioner. All home health [...] Medicaid Rules can be found online at http://humanservAktana.[place].gov/yg-maas-wmhbe. Section A: (must be completed or reviewed and signed by ordering provider) Beneficiary's name: Mary Porras Medicaid ID#: Insurance: [place] Pay[place] Plan Address Payor Plan Phone Number Payor Plan Fax Number Effective Dates [address] 04/26/2019 - None Entered [facility] [address] Subscriber Name Subscriber Date Member ID MARY PORRAS 1995 [id number] Diagnoses: /Lactating Mother- Z39.1 Breast Engorgement relative to born at 33 weeks 4 days gestation Feeding problem of , unspecified P92.9 Premature Infant in ICN from mother P07.30 A standard breast pump will not provide sufficient milk for this baby. Place of service: Is the beneficiary living in a mcfp facility? Yes [ ] No[x] Is the [...] Please see ordering physician signature below - [facility], [address] [place] [address] 6. Ordering provider's signature: Pl ease see order signature below. Date signed: Please see signedorder date 7. Ordering provider's Medicaid provider #: [id number] Phone#: [phone] See back of form for DME information [...] identified in the Provider Manual, available at: www.[employer], [email or web address].com. For exceptions, an MNF must be kept on file by the DME supplier. Prior Authorization: The DME supplier must include a copy of an MNF with every Prior Authorization request. Fax the MNF and any other supporting documents to the [facility] at . Use of this [facility] Medical Necessity Form is recommended for all prior authorization requests to ensure timely processing. Medicaid may request a copy of the medical record upon audit. *INSTRUCTIONS FOR SECTIONS A & B* Section A must be completed or reviewed, signed, and dated by the ordering physician/physician certified medical assistant/nurse practitioner. Section B must be completed [...] must appear on other documentation submitted to [facility] for PA and to [facility] for billing), medical necessity rationale, expected length of need (will be interpreted as months unless stated otherwise), and the number ofitems needed (for example: 2 bottles of sterile saline per month). NOTE: If the quantity ordered ismore than the number allowed (based on customary usage and as listed in the [facility] DME Restriction list, available at: http://[facility].[place].gov/for-providers/ermtvmye-nacysdlq-iuuijkqagq), an explanation from the physician is required. [...] 01/24/2021 2:30 PM EST OFFICE OF CARE MANAGEMENT/machine sole leveler Patient to be discharging this weekend to [facility]. Given information about [facility]. Patient would like VNA services while at [facility]. VNA orders updated. Patient given VNA agency choice. VNA orders pended to: [facility] PHONE: [phone] FAX: [phone] VNA has confirmed that they can accept referral. Previous VNA orders had been pended to: [facility]. PHONE: [phone] FAX: [phone] This agency has been contacted and informed that patient will be discharging to [facility] and that their services are not needed at this time. Patient is not sure if she will be discharging home with her PICC. Home PICC Line/flush orders have been pended to: [place], [place] or Weekend CM to follow up with OB team and contact NE if patient does need to go home with the PICC. If she does not need PICC then orders for PICC need to be deleted. Arlene Long RN Case Manager [facility] [phone] Pager [phone] * Grace Desai MD - 01/24/2021 6:41 AM EST Delivery Note Patient ID: Mary Porras is a 25 y.o. POD #2 after Repeat Delivery with Bilateral salpingectomy at 33w4d , delivered due to worsening status of her known non-ischemic dilated cardiomyopathy. Delivery uncomplicated. Transferred back to from [facility] on POD#1. S: Mary is feeling well [...] BIT team consult placed Transferred back to [facility] on POD#1 due to stable condition, doing [...] 1995 PCP: GABRIELLA Mayer PCP phone number: [phone] Date of Admission: 01/16/2021 ( Hospital Day [...] bilateral salpingectomy who was admitted to the [facility] for monitoring in the post-opsetting. 24 Hour Events/Subjective: Yesterday: Uncomplicated . Admitted to [facility] for post op monitoring. -- Overnight: Maintained [...] ROpivacaine 2 mL/hr (01/22/211845) ??? EPINEPHrine Stopped (01/23/21418) Ventilator Settings: Mode: , SET RR: TV: PEEP: FiO2: VARIABLES PATIENT RR: PIP: Pplateau: SpO2: OUTPUT Resp: 14 SpO2: 99 % ABG (Arterial Blood Gas) No results for input(s): PHART, XXS6IYD, PO2ART, YGL8BSA, LACTATEVEN, SZU4TZG, PFRATIOART2 in the last 168 hours. VBG (Venous Blood Gas) No results for input(s): PHVEN, QZX2HKV, PO2VEN, ECI3OMV, LACTATEVEN in the last 168 hours. Mixed Venous Sat No results for input(s): C2MMHC2 in the last 168 hours. Objective: Vitals [...] 01/23/21599 Peripheral IV Line - Single Lumen 01/20/21628 cephalic vein (lateral side of arm), left [...] input(s): THROMBIN TIME Cardiac Enzymes Recent Labs 01/17/21 2019 01/16/21 1648 TROPONINT <0.01 <0.01 PROBNP 70 77 Endocrine No results for input(s): TSH, CORTISOL in the last 7068 hours. Invalid input(s): TPHERPSAKWH9M No results for input(s): POCGLU in the last 168 hours. Heme No results for input(s): LDH, HAPTOGLOBIN, URICACID in the last 168 hours. ABG (Arterial Blood Gas) No results for input(s): PHART, HDN7HIW, PO2ART, EIF2RBR, LACTATEVEN, VNW1XYW, PFRATIOART2 in the last 168 hours. VBG (Venous Blood Gas) No results for input(s): PHVEN, FWT0HVD, PO2VEN, CMT5OZD, LACTATEVEN in the last 168 hours. Mixed Venous Sat No results for input(s): V5CCRE6 in the last 168 hours. Microbiology: Microbiology Results (Last 30 days) Procedure Component Value Units Date/Time Group B Strep Culture Screen [[id number]] (Abnormal) Collected: 01/16/211656 Lab Status: Final result Specimen: Vaginal/Rectal Updated: 01/17/21 144 Group B Streptococcus Culture Beta Hemolytic Streptococci, Group B isolated COVID-19 PCR [[id number]] Collected: 01/16/211656 Lab Status: Final result Specimen: [...] using the Simplexa COVID-19 Direct Assay by [employer] as authorized by the FDA issued Emergency [...] Department of Pathology and Laboratory Medicine at [facility], certified under the Clinical Laboratory Improvement [...] fact sheets at the following FDA website: https://www.fda.gov/medical-devices/lovkbvdhfhs-vnrjsxi-7095-hbnos-76-odfgnctqv- tyi-mgxrlgtiumcbrn-biqzcvr-devices/qvcfd-umiksfwfqpm-nzfy SARS-CoV-2 Source PROFESSOR OF COMMUNICATION ARTS Swab Group B Streptococcus Screen [[id number]] Collected: 01/16/21 1657 Lab Status: Final result [...] who have questions, please contact the health youth care worker that requested your imaging first. Rustam Hoffman, [...] who have questions please contact the health youth care worker that requested your imaging first. Medications Scheduled [...] Continuous Infusions: ??? ROpivacaine 2 mL/hr (01/22/21 859) ??? EPINEPHrine Stopped (01/23/21 4571) PRN Meds:.miSOPROStol, oxyCODONE OR oxyCODONE, polyethylene glycoL [...] digoxin going forward until reassessed by outpatient pneumatic deicer inspector Dr. Márquez. Will ideally be on an [...] -Acetaminophen and oxycodone available prn -recommend avoiding intermediate designer NSAIDs in the setting of HFrEF -acceptable [...] Malissa Borrero MD Cardiovascular Medicine Personal Pager [phone] 01/23/2021 1:03 PM * Inge Benavides - 01/22/2021 7:15 AM EST Obstetrical Antepartum [...] Temp src Pulse Resp SpO2 Weight 01/22/21 06 -- -- -- -- -- 99 % -- 01/22/21 0624 -- -- -- -- -- -- 96.1 kg (211 lb 13.8 oz) 01/22/21 06 97/60 36.5 ??C (97.7 ??F) -- 91 -- -- -- 01/22/21 0132 111/66 -- -- 89 -- -- -- 01/21/21 2138 111/63 -- -- 87 16 98 % -- 01/21/212025 -- 36.6 ??C (97.9 ??F) Oral -- -- -- -- 01/21/21 1724 -- -- -- -- -- 98 % -- 01/21/21 1723 113/66 36.7 ??C (98.1 ??F) Oral 95 [...] Amniotic fluid: within normal limits EFW: 2135g, 7uc79ue, 75% Normal limited anatomy Labs Lab Results [...] fluid boluses. Careful fluid loading and consider [place] catheter to measure PAD pressure ?? Double [...] monitoring]: Rounding, call núñez within reach. Lilly Greenfield RN * Echo Tirado - 01/21/2021 12:40 PM EST Obstetrical Antepartum [...] -- -- -- 99 % -- -- 01/20/21 171 117/69 -- -- 86 -- -- -- -- 01/20/21 171 117/69 -- -- 80 -- -- -- [...] Amniotic fluid: within normal limits EFW: 2135g, 6tm76ye, 75% Normal limited anatomy Labs Lab Results [...] fluid boluses. Careful fluid loading and consider [place] catheter to measure PAD pressure ?? Double [...] for gestational age Comments - D/w Dr. Ceullar, attending welder 2nd shift. Inge Benavides MD , PGY3 01/21/2021 Associated [...] 01/20/2021 11:57 AM EST OFFICE OF CARE MANAGEMENT/machine sole leveler Per MD Team, patient will be delivered by c/s on 01/21/21. Previous referrals had been sent to [facility] and [facility] in anticipated of patient being discharged home with PICC line. [facility] and [facility] both informed that patient has not discharged at this time and discharge needs are not yet known. Arlene Long RN Case Manager [facility] [phone] Pager [phone] * Inge Benavides - 01/20/2021 7:27 AM [...] 98/55 -- -- 80 18 -- -- 01/19/21 2002 121/69 36.8 ??C (98.2 ??F) Oral 90 [...] -- -- -- -- 98 % -- 01/19/2121 -- -- -- -- -- 98 % -- 01/19/21 0916 -- -- -- -- -- 99 % -- 01/19/2111 -- -- -- -- -- 99 % [...] -- -- -- -- 98 % -- 01/19/2133 -- -- -- -- -- -- 98 [...] Amniotic fluid: within normal limits EFW: 2135g, [id number], 75% Normal limited anatomy Labs Lab Results [...] fluid boluses. Careful fluid loading and consider [place] catheter to measure PAD pressure ?? Double [...] Zimmerman MD - 01/20/2021 10:08 AM EST MFM attending note I saw [...] weeks Discussed with Dr. Cami Rowland attending welder 2nd shift. Inge Benavides MD, PGY-3 01/19/21 Associated attestation [...] Amniotic fluid: within normal limits EFW: 2135g, [id number], 75% Normal limited anatomy Labs Lab Results [...] fluid boluses. Careful fluid loading and consider [place] catheter to measure PAD pressure ?? PICC [...] Inge Benavides MD, PGY-3 01/19/2021 8:06 AM * Mayra Solorio MD - 01/18/2021 4:05 PM EDT Obstetrical [...] ??F) Oral 83 17 99 % -- 01/17/215 118/58 36.8 ??C (98.2 ??F) Oral 93 18 96 % -- 01/17/211938 106/58 36.6 ??C (97.9 ??F) Oral 100 19 -- -- 01/17/211935 -- -- -- -- -- 98 % -- 01/17/211656 94/60 -- -- 95 -- -- -- 01/17/211654 95/58 -- -- 97 -- 99 % -- Gen: appears well, NAD, resting comfortably in bed CV: RRR, no murmurs/rubs/gallops Pulm: CTAB, no wheezes/crackles/rales Uterus: gravid, nontender Heart Rate Interpretation: Please see separate daily NST note. Most Recent Ultrasound Date: 10/10/20 GA: 18w5d FHR: 148 bpm Presentation: cephalic Placenta: anterior Amniotic fluid: within normal limits EFW: 309g, [id number] Normal detailed anatomy Labs Lab Results Component [...] fluid boluses. Careful fluid loading and consider [place] catheter to measure PAD pressure ?? Will [...] - Discussed with Dr. Dimple Mei, attending welder 2nd shift. Mayra Solorio MD, PGY-4 01/18/2021 3:58 PM Associated attestation - Emma Mei MD - 01/18/2021 4:12 PM EDT Attending Note: I was the attending physician supervising the resident in the above care and I personally reviewed and interpreted the NST. I agree with the resident's interpretation as noted above. Emma Mei MD * Meri Zimmerman MD - 01/18/2021 11:07 AM EDT [facility] attending note I saw and evaluated the patient. The patient reports feeling well. She has not had recurrent chest pain or dyspnea after she received metoprolol. She did have dyspnea after leangin over to pickup driver something from the floor but does well [...] test. Delivery in 3 days. Move to [facility] if decompensation. Meri Zimmerman MD * Sheela [...] for worsening tachycardia or new hypoxia -d/w emt/dispatcher Inge Benavides MD 01/17/2021 Associated attestation - [...] a trial of lasix and contact the emt/dispatcher. For now, continue metoprolol as written. Peripartum CDMO: -Care per OB team -Coordinate w/ cardiac anesthesia for planned in OR -Post-op care in CVCC -Continue Metoprolol -Would consider Lasix for progressive SOB or hypoxia, in coordination w/ the cardiology team * Arlene Long RN - 01/17/2021 11:28 AM EDT OFFICE OF CARE MANAGEMENT/machine sole leveler Patient will be getting a PICC line placed today at 1pm. Patient may be discharged home with PICC this weekend. Patient has accepted VNA referral. Only one VNA, that offers maternal/child services covers patient's town. VNA orders pended to this agency: [facility]. PHONE: [phone] FAX: [phone] Patient offered DME choice for PICC line flush supplies. Orders for flush supplies pended to: [place], [place] or Arlene Long RN [facility] [phone] Pager [phone] * Rubi Tejeda MD - 01/17/2021 10:55 [...] - Discussed with Dr. Rubi Tejeda, attending welder 2nd shift. Inge Benavides MD, PGY-3 01/17/2021 10:57 AM [...] 94 17 99 % -- -- 01/16/21 1832 -- -- -- -- -- 99 % -- 97.7 kg (215 lb 4.8 oz) 01/16/21 1830 -- -- -- -- -- 99 % -- -- 01/16/21 1759 115/70 -- -- 92 -- 100 % [...] Amniotic fluid: within normal limits EFW: 309g, 5eq25rd Normal detailed anatomy Labs Lab Results Component [...] fluid boluses. Careful fluid loading and consider [place] catheter to measure PAD pressure ?? Will [...] the past few days with continued beta sunitha and hospital surveillance. She has the high [...] I reviewed with her that using the [facility] TOLAC success calculator, her chance of [...] S1 PCP: GABRIELLA Mayer PCP phone #: [phone] Attending: GRACE DESAI DANETTE L ID: Mray Porras is a 25 y.o. female with a past medical history of with peripartum nonischemic cardiomyopathy (last TTE 01/14 w/ EF of 35%) with a previous high-risk teen pregnancyand now again presenting at 33w now s/p caesarian section with bilateral salpingectomy whois being admitted to the CV for monitoring in the post-op setting. History [...] H/O chlamydia infection 2019 treated with negative JSOE ??? History of section ??? 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 Non-ischemic cardiomyopathy with peripartum cardiomyopathy 2013 Past Surgical History: Procedure Laterality Date ??? CENTRAL VENOUS CATHETER ??? HERNIA REPAIR ??? PRO DELIVERY ONLY 10/08/2013 @ DELIVERY performed by Meri Zimmerman MD at [facility] MAIN OR Meds: No current facility-administered medications [...] mouthdaily. 90 tablet 2 ??? vit 75/iron/folic/om3 ([id number] FUM-FOLIC AC-OM3 ORAL) Take by mouth. Allergies: [...] None Social History Narrative Unmarried. Lives in [place] with sons grandparents. Smoking MJ 3x per [...] TIME Cardiac enzymes: Recent Labs 01/17/21 2019 01/16/21 1648 TROPONINT <0.01 <0.01 Endocrine: No results for input(s): TSH, CORTISOL in the last 7068 hours. Invalid input(s): [id number] Heme: No results for input(s): LDH, HAPTOGLOBIN, URICACID in the last 168 hours. Microbiology: Microbiology Results (Last 30 days) Procedure Component Value Units Date/Time Group B Strep Culture Screen [[id number]] (Abnormal) Collected: 01/16/211656 Lab Status: Final result Specimen: Vaginal/Rectal Updated: 01/17/21 1443 Group B Streptococcus Culture Beta Hemolytic Streptococci, Group B isolated COVID-19 PCR [[id number]] Collected: 01/16/211656 Lab Status: Final result Specimen: [...] using the Simplexa COVID-19 Direct Assay by [employer] as authorized by the FDA issued Emergency [...] Department of Pathology and Laboratory Medicine at [facility], certified under the Clinical Laboratory Improvement [...] fact sheets at the following FDA website: https://www.fda.gov/medical-devices/jcxjyonmdcz-isjpxlb-5255-bndpe-67-mjxitcmff- ukj-mgptwvlfisnetr-sjwlqkz-devices/tqiyy-yetabyyzokx-lizw SARS-CoV-2 Source PROFESSOR OF COMMUNICATION ARTS Swab Group B Streptococcus Screen [[id number]] Collected: 01/16/21 1657 Lab Status: Final result [...] who have questions, please contact the health youth care worker that requested your imaging first. Rustam Hoffman, [...] who have questions please contact the health youth care worker that requested your imaging first. SSMENT: Mary Porras is a 25 y.o. female with a past medical history of with peripartum nonischemic cardiomyopathy (last TTE 01/14 w/ EF of 35%) with a previous high-risk teen pregnancyand now again presenting at 33w now s/p caesarian section with bilateral salpingectomy whois being admitted to the CV for monitoring in the post-op setting. Mary [...] PGY-1 Internal Medicine Cardiology S1 , Pager #[phone] 01/22/21 3:13 PM -- CARDIOLOGY ATTENDING NOTE [...] underwent with delivery of a healthy girl, Debbie. Partner/FOB, Trevor, is involved. Per Dr. Greene, [...] of two midnights or is on the [facility] inpatient only procedure list (status C) due to: dany- cardiomyopathy withrecent decline and urgent elective delivery via - section requiring hemodynamic support and close monitoring for acute cardiac and hemodynamic deterioration. Malissa Borrero MD Cardiovascular Medicine Personal Pager [phone] 01/22/2021 8:47 PM * Inge Benavides - 01/22/2021 1:22 PM EST Inpatient TELETYPESETTER - Admission Interval Note I have reviewed the admission H&P completed by Grace Desai on 01/16/21. Condition changed since H&P originally performed. See separate interval daily rounding note forupdates. Inge Benavides MD, PGY-3 01/20/2021 10:37 PM * Grace Desai MD - 01/16/2021 4:10 PM EDT Obstetrical Admission Note Referring Hospital: N/A Referring Provider: N/A Initial Care Provider (if early referral or co-managed by M): [facility] MFM Chief Complaint: Mary Porras was admitted [...] this . Denies associated CP, syncope, orthopnea, STROUD, vision changes, recent viral illnesses, GI or symptoms. From a labor standpoint, No VB. No ctx. No LOF. Good mvt. Her sBP has been in 100s. Currentlytaking Metoprolol XL 25 mg qHS and was recently asked to start digoxin per Cardiology. She has not gotten chance to pickup driver Digoxin 250 mcg BID from the pharmacy. [...] DELIVERY performed by Meri Zimmerman MD at [facility] MAIN OR OB History 4 Para 1 [...] 2 01/15/2021 at 1900 ??? vit 75/iron/folic/om3 ([id number] FUM-FOLIC AC-OM3 ORAL) Take by mouth. 01/16/2021 [...] (5' 10) Wt 95.7 kg (211 lb) MkQ531% BMI 30.28 kg/m?? Physical Exam: Gen: AAO, [...] 130, Variability: moderate, Accels: yes, Decels: none, [place]: none Category: I Record Review Labs Lab Results Component Value Date ABORH B Pos 10/05/2013 HCT 34.5 (L) 01/02/2021 HGB 11.1 (L) 01/02/2021 MCV 90.8 01/02/2021 HEPBSAG Negative (External Lab) 06/22/2013 RUBLIGG Immune (External Lab) 06/22/2013 HIV12 Negative (External Lab) 06/22/2013 GCAMP Negative 10/05/2013 CHLMGENE Negative 10/05/2013 AST 19 09/19/2013 Lab Results Component Value Date [id number] 106 (External Lab) 08/24/2013 Lab Results Component [...] patient was seen and discussed with Dr. Whitlock, Attending TELETYPESETTER. Bri No MD 01/16/2021 I have seen [...] (5' 10) Wt 95.7 kg (211 lb) ZaT305% BMI 30.28 kg/m?? NAD Lungs CTA AP [...] reviewed the risk and benefits of each. Desires Mirena IUD GRACE DESAI MD documented in this encounter Procedure Notes * Yanely Schuler, RN - 01/17/2021 2:05 PM EDTAssociated Order(s): [...] to the planned procedure. Hand Hygiene: The labor delivery specialist did perform hand hygiene prior to line insertion. Catheter type: PICC Lot number: [id number] Procedure Technique: Skin was prepped with chlorhexidine. [...] External: 0 cm Tip in SVC per Mabelff The line was not placed over a [...] Hoffman in the outpatient setting last week. Mray had written to me about progressive lower [...] and multidisciplinary discussion was had with our [facility] colleagues. She underwent successful delivery to [...] and [facility]. Her weight on [...] to check in. She is staying at [facility] while her daughter Debbie is monitored at [facility]. . * Note - Susannah Malik RN [...] She believes she plans to stay at [facility] once discharged. I explained there are hospital garde pumps at her baby's bedside and at [facility], but they an reach out to the case sealer in the ICN to discuss options about obtaining a hospital grade pump. RECOMMENDATIONS: Breast massage and hand expression before and during pumping [place] oil to nipples prior to pumping Pump at least 8-10 times per 24 hours and record in pumping log provided Frequent and prolonged maternal-infant skin to skin contact when possible Encouraged mother to let nurse know if pain with pumping develops Close support and follow up Susannah Malik RN, IBCLC Director Of Vendor Management [facility] Services * Consult Note - Cami Miranda APRN - 01/23/2021 12:20 PM EST BIT Evaluation Referral source: Consult request by primary team physician Reason for referral: Anxiety This short story writer introduced myself and reviewed my role with the BIT team. Patient was very open to additional support during this difficult time. She is missing her baby. Her partner was present and supportive. As we began evaluation patient was notified she was being transferred back to . This short story writer made partner aware that patient may ask for BIT to be contacted tomorrow for additional support ( this short story writer had to start outpatient clinic). Otherwise, I will return Arsen to discuss ways this short story writer could be helpful. Keena Miranda, PMHNP [facility] - [facility] (Behavioral Intervention Team) Dept. of Psychiatry - Inpatient Psych. Services Pager: [phone] * Op Note - Inge Benavides - 01/22/2021 6:03 PM EST [facility] Operative Note Patient Name: Mary Porras : [id number] MR#: [id number] ?? Case Date: 01/22/2021 ?? Surgeon: Surgeon(s) and Role: * Rustam Hoffman MD - Primary * Inge Benavides MD - Resident ?? Preoperative diagnosis: non ischemic cardiomyopathy, ?? Postoperative diagnosis: non ischemic cardiomyopathy, ?? Procedure(s) (LRB): @ DELIVERY (WRVU 16.13) (Midline) @SALPINGECTOMY (WRVU 12.95) (Bilateral) ?? Repeat low transverse section, bilateral salpingectomy ?? Anesthesia: Epidural ?? Findings: Live female in cephalic position, clear [...] pressure was applied to facilitate delivery of . There was a nuchal cord x 1 which reduced easily. The head and shoulders delivered easily. Liveborn female infant was delivered. The cord was doubly clamped and cut. The infant was handed off [facility] pediatricians, who assigned Apgars of 8 [...] The left fallopian tube was elevated with [place] clamps and the Ligasure was used to [...] was in stable condition at its conclusion.The infant was taken to the ICN after delivery for stabilization and monitoring in the setting of prematurity. Sponge, lap and needle counts were correct times three at case close. The patient was taken to the cardiovascular ICU for planned postoperative admission in stable condition. Prophylactic antibiotics: 2 gm Ancef DVT Prophylaxis: SCD's Dr. Rustam Hoffman, attending welder 2nd shift, was present for the entire case without [...] in the delivery of a liveborn female infant with Apgars of 8/9 and a weight of 2080g. The uterus, tubes and ovaries were normal. Bilateral salpingectomy was performed at the time of surgery. Estimated blood loss was 500mL. There were no complications. Please see operative note for more details. Cord gases: Results for CHIQUITA BABY GIRL ( ) as of 01/23/2021 10:43 Ref. [...] PGY-3 01/22/21 Information for the patient's : Steve Porras [[id number]] DELIVERY SUMMARY FOR Baby Walt Porras (please note there is a separate [...] Combined est. blood loss (mL): 500 Delivery ([place]) Delivery Date: 01/22/21 Delivery Time: 3:24:00 PM Sex: Female Presentation: Vertex Attempted ?: No Delivery Type: Delivery Type (Specific): Lower Segment Transverse Major Indications - : maternal medical condition Delivery Comment: maternal peripartum cardiomyopathy Shoulder Dystocia Shoulder dystocia present?: No Delivery Information Delivery Location: OR Delivering Clinician: Inge Benavides MD Other Personnel: Provider Role Chanda Parra RN Delivery Nurse Rustam Hoffman MD Instant Potato Processing Supervisor Delivery Assist Anesthesia Method: Epidural Cord Vessels: [...] 6 around 6 mol during transport Maternal [place] Feeding and Skin to Skin No data filed [place] Medications No data filed Measurements Weight: 2080 g Placenta No data filed Labor Length No data filed * Brief Op Note - Inge Benavides - 01/22/2021 4:37 PM EST Brief Operative Note Patient Name: Mary Porras : [id number] MR#: [id number] Case Date: 01/22/2021 Surgeon: Surgeon(s) and Role: * Rustam Hoffman MD - Primary * Inge Benavides MD - Resident Preoperative diagnosis: non ischemic cardiomyopathy, Postoperative diagnosis: non ischemic cardiomyopathy, Procedure(s) (LRB): @ DELIVERY (WRVU 16.13) (Midline) @SALPINGECTOMY (WRVU 12.95) (Bilateral) Repeat low transverse section, bilateral salpingectomy Anesthesia: Epidural Findings: Live female infant in cephalic position, [...] MD to provide a consult to Mary Porras and discuss the anticipated evaluation and management of an infant born at 32 weeks gestation. Mary is a 25 y/o G 4 P 1 B+/Ab neg/Rubella immune/HBsAg Neg/HIV Neg/Syphilis Neg/GBS Pos/GC Neg/Chlamydia Neg women at 32w weeks gestation and admitted to the [facility] due to maternal dilated cardiomyopathy secondary to [...] daughter named Debbie.She is planning on her . We also discussed that parents are considered to be part of the care team and are welcome in the ICN at all times. We discussed the general care and management of an infant born at 32 weeks gestation, including respiratory [...] MD 01/17/2021 * Plan of Care - [place], Yanely Martin RN - 01/17/2021 2:05 PM EDT Peripherally Inserted Central Catheter (PICC) Teaching Sheet Peripherally inserted central catheters (zupk-vi-rijt) (PICC) are used when you need IV [...] midline catheter? PICC lines are used for half-way treatments. PICC lines may be used for [...] can be set up via the nurse Shot Grinder Operator to help you. What are possible complications [...] Efficacy, Safety, Use, and Administration of [employer], [employer] 2005 * Initial Assessments - Ariela [...] engage in conversation Home Environment: Lives at [address] [place] [id number] Household members: MOB, FOB Family Supports: Mary's [...] Pharmacy: Other: Primary Care Provider: GABRIELLA Mayer [phone] Potential Needs/referrals for Transition of Care: Need [...] her needs. Mary welcomes the support from [facility] pediatric social workers and is open [...] transition of care planning. MARTINA Casarez Pager [phone] Work * Consult Note - Allan Wilkinson [...] hospital today for further assessment by her pneumatic deicer inspector for further HFrEF management and antepartum monitoring. [...] Attending Addendum I was the assigned attending pneumatic deicer inspector for this clinical encounter. For the purposes [...] within normal limits. After discussion with the [facility] team and the patient, we have [...] delivery. We will work closely with the [facility] team. They will plan for a [...] patient. For any additional questions,my pager is #[phone]. Lyndsay Toledo MD MPH Advanced Heart Disease & Cardiac Transplant Attending 01/17/2021, 12:49 PM documented in this encounter Plan of Treatment Upcoming Encounters Date Type Department Care Team (Late st Contact Info) Description 01/27/2024 1:00 PM EST Appointment [place] [phone] Anton Márquez MD [facility] [place] [address] 01/27/2024 3:00 PM EST Office Visit Cardiology at [address] [phone] Anton Márquez MD [facility] [place] [address] documented as of this encounter Procedures Procedure [...] 01/24/2021 3:19 AM EST RAPID COVID-19 PCR ([facility]/APD/[facility]H) Routine 01/23/2021 1:05 PM EST HEMOGRAM Routine [...] 3:33 PM EST Removal Of Fallopian Tube (56516) Yes 01/22/2021 1:31 PM EST non ischemic cardiomyopathy, Delivery Only (82648) Yes 01/22/2021 1:31 PM EST non ischemic [...] 01/16/2021 4:57 PM EDT RAPID COVID-19 PCR ([facility]D/[facility]) Routine 01/16/2021 4:57 PM EDT HC GROUP [...] EST) Glucose 72 65 - 199 mg/dL [facility] Comment:Diabetes: >=200 mg/d L plus symptoms Blood Urea Nitrogen 15 8 - 18 mg/dL [facility] Creatinine 0.51(L) 0.70 - 1.20 mg/dL [facility] Sodium 138 135 - 145 mmol/L [facility] Potassium 4.2 3.5 - 5.0 mmol/L [facility] Comment: Please note: ??Patients with WBC >100,000 may have falsely elevated Potassium levels. ??For accurate Potassium quantification in these patients send serum separator tube (gold top) for subsequent determinations. ??Contact the Clinical Chemistry Laboratory if there are any questions. Chloride 104 98 - 107 mmol/L [facility] Carbon Dioxide 25 22 - 31 mmol/L [facility] Anion Gap 9 5 - 15 mmol/L [facility] Calcium 9.0 8.5 - 10.5 mg/dL [facility] Est Glomerular Filtration Rate 135 >=60 mL/min/1. 73 m?? [facility] Comment: This patient? s estimated [...] In Lab Mandie Mauro MD CHEMISTRY ORDERABLES [facility] [place] [place] [address] * Magnesium (01/25/2021 6:30 AM EST) Magnesium 0.72 0.69 - 1.07 mmol/L [facility] Blood 01/25/2021 6:30 AM EST 01/25/2021 6:42 AM EST Narrative Resulting Agency Comment Spec In Lab Mandie Mauro MD CHEMISTRY ORDERABLES [facility] [place] [place] [address] * (ABNORMAL) pro-Brain Natriuretic Peptide (01/25/2021 6:30 AM EST) NT-proBNP 125(H) <=124 pg/mL [facility] Blood 01/25/2021 6:30 AM EST 01/25/2021 6:42 AM EST Narrative Resulting Agency Comment Spec In Lab Mandie Mauro MD CHEMISTRY ORDERABLES Performing Organization Address City/[facility]/ZIP Co de Phone Number [facility] [place] [place] [address] * Scan, Peripheral Blood (01/24/2021 3:19 AM EST) [facility] Plat estimate Normal [facility] RBC Morphology Abnormal [facility] Hypochromia Slight [facility] Blood 01/24/2021 3:19 AM EST 01/24/2021 3:27 AM EST Narrative Resulting Agency Comment Spec In Lab Mandie Mauro MD HEMATOLOGY ORDERABLE S Performing Organization Address [facility] Co de Phone Number [facility] [place] [address] * (ABNORMAL) Differential, Automated (01/24/2021 3:19 AM EST) [facility] Neutrophil % 61.4 % [facility] Neutrophil Absolute 6.85(H) 1.70 - 6.10 x10(3)/mc L [facility] Lymph % 23.0 % [facility] Lymphocytes Abs 2.6 0.9 - 3.2 x10(3)/mc L [facility] Monocyte % 8.1 % [facility] Monocyte Abs 0.9 0.3 - 0.9 x10(3)/mc L [facility] Eos % 3.4 % [facility] Eosinophils Abs 0.4 0.0 - 0.4 x10(3)/mc L [facility] Basophil % 0.4 % [facility] Baso Absolute 0.0 0.0 - 0.1 x10(3)/mc L [facility] Immature Gran % 3.70 % [facility] Comment: Immature granulocytes(IG's)percentage and absolute count will include metamyelocytes, myelocytes, and promyelocytes. Blood smears from CBCs yielding IG's will be scanned manually for concordance. If this scan disagrees with the automated IG or if promyelocytes are noted, a manual differential will be performed. Immature Gran Absolute 0.41(H) 0.00 - 0.04 x10(3)/mc L [facility] Blood 01/24/2021 3:19 AM EST 01/24/2021 3:27 AM EST Narrative Resulting Agency Comment Spec In Lab Mandie Mauro MD HEMATOLOGY ORDERABLE S [facility] [place] [address] * (ABNORMAL) Hemogram (01/24/2021 3:19 AM EST) White Blood Cell 11.2(H) 4.0 - 9.5 x10(3)/mc L [facility] Red Blood Cell 3.71(L) 4.00 - 5.21 x10(6)/mc L [facility] Hemoglobin 10.4(L) 11.7 - 15.5 g/dL [facility] Hematocrit 32.6(L) 35.7 - 45.8 % [facility] Mean Cell Volume 87.9 82.6 - 94.4 fL [facility] Mean Cell Hemoglobin 28.0 27.1 - 32.0 pg [facility] Mean Cell Hemoglobin Concentration 31.9 31.7 - 35.0 g/dL [facility] Platelet 181 145 - 357 x10(3)/mc L [facility] RDW Standard Deviation 43.3 37.0 - 46.0 fL [facility] RDW coefficient of variation 13.6 11.5 - 14.1 % [facility] Mean Platelet Volume 10.0 7.6 - 12.9 fL [facility] NRBC% auto 0.0 % [facility] [facility] NRBC Absolute 0.000 0.000 - 0.000 x10(3)/mc L [facility] Blood 01/24/2021 3:19 AM EST 01/24/2021 3:27 AM EST Narrative Resulting Agency Comment Spec In Lab Mandie Mauro MD HEMATOLOGY ORDERABLE S Performing Organization Address [facility]/ZIP Co de Phone Number [facility] [place] [address] * Phosphorus (01/24/2021 3:19 AM EST) Phosphorus 4.2 2.5 - 4.5 mg/dL [facility] Blood 01/24/2021 3:19 AM EST 01/24/2021 3:27 AM EST Narrative Resulting Agency Comment Spec In Lab Mandie Mauro MD CHEMISTRY ORDERABLES Performing Organization Address [facility] Co de Phone Number [facility] [place] [address] * Magnesium (01/24/2021 3:19 AM EST) Magnesium 0.70 0.69 - 1.07 mmol/L [facility] Blood 01/24/2021 3:19 AM EST 01/24/2021 3:27 AM EST Narrative Resulting Agency Comment Spec In Lab Mandie Mauro MD CHEMISTRY ORDERABLES Performing Organization Address [facility] Co de Phone Number [facility] [place] [address] * (ABNORMAL) Basic Metabolic Panel (non-fasting) (01/24/2021 3:19 AM EST) Glucose 83 65 - 199 mg/dL [facility] Comment:Diabetes: >=200 mg/d L plus symptoms Blood Urea Nitrogen 15 8 - 18 mg/dL [facility] Creatinine 0.59(L) 0.70 - 1.20 mg/dL [facility] Sodium 136 135 - 145 mmol/L [facility] Potassium 4.2 3.5 - 5.0 mmol/L [facility] Comment: Please note: ??Patients with WBC >100,000 may have falsely elevated Potassium levels. ??For accurate Potassium quantification in these patients send serum separator tube (gold top) for subsequent determinations. ??Contact the Clinical Chemistry Laboratory if there are any questions. Chloride 104 98 - 107 mmol/L [facility] Carbon Dioxide 24 22 - 31 mmol/L [facility] Anion Gap 8 5 - 15 mmol/L [facility] Calcium 9.1 8.5 - 10.5 mg/dL [facility] Est Glomerular Filtration Rate 128 >=60 mL/min/1. 73 m?? [facility] Comment: This patient? s estimated [...] In Lab Mandie Mauro MD CHEMISTRY ORDERABLES [facility] [place] [address] * COVID-19 PCR (01/23/2021 1:05 PM EST) Pathologist [facility] SARS-CoV-2 RNA (Rapid) Not Detected Not Detected [facility] Comment: This result should be interpreted [...] using the Simplexa COVID-19 Direct Assay by Grand Perfecta as authorized by the FDA issued Emergency [...] Department of Pathology and Laboratory Medicine at [facility], certified under the Clinical Laboratory Improvement [...] fact sheets at the following FDA website: https://www.fda.gov/medical-devices/eifjrgpeery-tecznml-9005-zcknu-10-ywsvecjvl- use-a bdetslpgxjvbg-ezgrurs-zskjhwp/qrnme-vdjgxvaublx-bfuj SARS-CoV-2 Source PROFESSOR [employer] COMM[employer]ICATION [employer] Swab [facility] Nasopharyngeal Swab 01/24/20 1:05 PM EST 01/23/2021 2:00 PM EST Comment:Symptoms->COVID-19 S uspected Narrative Resulting Agency Comment Spec In Lab Mandie Mauro MD MICROBIOLOGY - GENER AL ORDERABLES Performing Organization Address City/[facility]/ZIP Co de Phone Number [facility] [place] [address] * Magnesium (01/23/2021 3:20 AM EST) Pathologist [facility] Magnesium 0.73 0.69 - 1.07 mmol/L [facility] Blood Venous Draw / Unknown 01/23/2021 3:20 AM EST 01/23/2021 3:33 AM EST Narrative Resulting Agency Comment Spec In Lab Seth Rush MD CHEMISTRY ORDERABLES Performing Organization Address [facility] Co de Phone Number [facility] [place] [address] * (ABNORMAL) Differential, Automated (01/23/2021 3:20 AM EST) Neutrophil % 75.4 % [facility] Neutrophil Absolute 12.13(H) 1.70 - 6.10 x10(3)/mc L [facility] Lymph % 12.4 % [facility] Lymphocytes Abs 2.0 0.9 - 3.2 x10(3)/mc L [facility] Monocyte % 7.7 % [facility] Monocyte Abs 1.2(H) 0.3 - 0.9 x10(3)/mc L [facility] Eos % 0.9 % [facility] Eosinophils Abs 0.2 0.0 - 0.4 x10(3)/mc L [facility] Basophil % 0.5 % [facility] Baso Absolute 0.1 0.0 - 0.1 x10(3)/mc L [facility] Immature Gran % 3.10 % [facility] Comment: Immature granulocytes(IG's)percentage and absolute count will include metamyelocytes, myelocytes, and promyelocytes. Blood smears from CBCs yielding IG's will be scanned manually for concordance. If this scan disagrees with the automated IG or if promyelocytes are noted, a manual differential will be performed. Immature Gran Absolute 0.50(H) 0.00 - 0.04 x10(3)/mc L [facility] Blood 01/23/2021 3:20 AM EST 01/23/2021 3:27 AM EST Narrative Resulting Agency Comment Spec In Lab Inge Benavides MD HEMATOLOGY ORDERABLE S [facility] [place] [address] * (ABNORMAL) Hemogram (01/23/2021 3:20 AM EST) White Blood Cell 16.1(H) 4.0 - 9.5 x10(3)/mc L [facility] Red Blood Cell 3.67(L) 4.00 - 5.21 x10(6)/mc L [facility] Hemoglobin 10.4(L) 11.7 - 15.5 g/dL [facility] Hematocrit 31.8(L) 35.7 - 45.8 % [facility] Mean Cell Volume 86.6 82.6 - 94.4 fL [facility] Mean Cell Hemoglobin 28.3 27.1 - 32.0 pg [facility] Mean Cell Hemoglobin Concentration 32.7 31.7 - 35.0 g/dL [facility] Platelet 195 145 - 357 x10(3)/mc L [facility] RDW Standard Deviation 41.8 37.0 - 46.0 fL [facility] RDW coefficient of variation 13.4 11.5 - 14.1 % [facility] Mean Platelet Volume 10.1 7.6 - 12.9 fL [facility] NRBC% auto 0.0 % [facility] NRBC Absolute 0.000 0.000 - 0.000 x10(3)/mc L [facility] Blood 01/23/2021 3:20 AM EST 01/23/2021 3:27 AM EST Narrative Resulting Agency Comment Spec In Lab Inge Benavides MD HEMATOLOGY ORDERABLE S [facility] [place] [address] * (ABNORMAL) Basic Metabolic Panel (non-fasting) (01/23/2021 3:20 AM EST) Glucose 89 65 - 199 mg/dL [facility] Comment:Diabetes: >=200 mg/d L plus symptoms Blood Urea Nitrogen 10 8 - 18 mg/dL [facility] Creatinine 0.47(L) 0.70 - 1.20 mg/dL [facility] Sodium 136 135 - 145 mmol/L [facility] Potassium 4.2 3.5 - 5.0 mmol/L [facility] Comment: Please note: ??Patients with WBC >100,000 may have falsely elevated Potassium levels. ??For accurate Potassium quantification in these patients send serum separator tube (gold top) for subsequent determinations. ??Contact the Clinical Chemistry Laboratory if there are any questions. Chloride 105 98 - 107 mmol/L [facility] Carbon Dioxide 22 22 - 31 mmol/L [facility] Anion Gap 9 5 - 15 mmol/L [facility] Calcium 8.8 8.5 - 10.5 mg/dL [facility] Est Glomerular Filtration Rate 138 >=60 mL/min/1. 73 m?? [facility] Comment: This patient? s estimated [...] Borrero MD CHEMISTRY ORDERABLES Performing Organization Address City/[facility] Co de Phone Number [facility] [place] [address] * Specimen to Pathology (01/22/2021 4:37 PM EST) AP Specimen 01/22/2021 4:37 PM EST 01/22/2021 4:37 PM EST Narrative [facility] - 01/22/2021 4:37 PM EST Specimen requisition ordered. ??Separate Pathology report to follow Malissa Borrero MD PATHOLOGY/CYTOLOGY O RDERABLES Performing Organization Address [facility] Co de Phone Number [facility] [place] [address] * Specimen to Pathology (01/22/2021 4:37 PM EST) AP Specimen 01/22/2021 4:37 PM EST 01/22/2021 4:37 PM EST Narrative [facility] - 01/22/2021 4:37 PM EST Specimen requisition ordered. ??Separate Pathology report to follow Malissa Borrero MD PATHOLOGY/CYTOLOGY O RDERABLES Performing Organization Address [facility]/[place] [address] * Specimen to Pathology (01/22/2021 4:37 PM EST) AP Specimen 01/22/2021 4:37 PM EST 01/22/2021 4:37 PM EST Narrative [facility] - 01/22/2021 4:37 PM EST Specimen requisition ordered. ??Separate Pathology report to follow Malissa Borrero MD PATHOLOGY/CYTOLOGY O MAY Performing Organization Address [facility] Phone Number [facility] [place] [address] * Specimen to Pathology (01/22/2021 3:40 PM EST) AP Specimen 01/22/2021 3:40 PM EST 01/22/2021 3:40 PM EST Narrative [facility] - 01/22/2021 3:40 PM EST Specimen requisition ordered. ??Separate Pathology report to follow Malissa Borrero MD PATHOLOGY/CYTOLOGY O MAY Performing Organization Address [facility] [place] [address] * Specimen to Pathology (01/22/2021 3:40 PM EST) AP Specimen 01/22/2021 3:40 PM EST 01/22/2021 3:40 PM EST Narrative [facility] - 01/22/2021 3:40 PM EST Specimen requisition ordered. ??Separate Pathology report to follow Malissa Borrero MD PATHOLOGY/CYTOLOGY O MAY Performing Organization Address [facility] Phone Number [facility] [place] [address] * Surgical Pathology Report (01/22/2021 3:33 PM EST) Final Diagnosis [id number] ? Location: BP; BP01; A The signing pathologist has (i) [...] Wayne Verified: ??01/30/2021 15:34 ??Pathologist Performed at: ??-[facility] Dept. of Pathology, [place], [place] SPECIMEN(S) SUBMITTED A - Right Fallopian tube B - Left Fallopian tube C - Placenta CLINICAL INFORMATION Nonischemic cardiomyopathy, . SPECIMEN PROCESSING A - Labeled/Fixative: Right fallopian tube, fresh. Quantity/Size: ??Single, 7.4 x 0.5 cm. Tissue Description: Segment of fallopian tube fimbriated The serosa is congested with scattered red-brown adhesions, and 0.1 cm paratubal cysts Sections/Processi ng: Formal Service Waiter sections in 3 cassettes as follows: ?A1: ??Fallopian tube, cross sections ?A2-A3: ??Longitudinally bisected fimbria B - Labeled/Fixative: Left fallopian tube, fresh. Quantity/Size: ??Single, 7.5 x 0.3-0.6 cm. Tissue Description: Segment of fallopian tube fimbriated Sections/Processi ng: The serosa is congested with distal tortuosity, adhesions and 0.6 cm translucent fluid filled paratubal cyst Formal Service Waiter sections in 3 cassettes as follows: ?B1: ??Cross-sections ?B2: ??distal tortuosity demonstrating serosal adhesions and paratubal cyst ?B3: ??Longitudinally bisected fimbria C - Labeled/Fixative: Placenta, fresh. Quantity/Size/Josse ght: Single, 21.0 x 16.5 x 2.5 cm, 410 g. Integrity: Intact. Shape: Discoid. . SPECIMEN PROCESSING Membranes: ? - Insertion: 90% marginal, 10% circummarginate. ? - Color and Clarity: Flora-red and clear. Cord: ? - Size: 22.0 [...] spongy without additional gross lesions. Sections/Processi ng: Formal Service Waiter sections in 9 cassettes as follows: ?C1: ??Membrane roll ?C2: ??Proximal and distal cord ?C3-C8: ??Full thickness parenchyma ?C9: ?? surface subchorionic plaque ??shb 01/30/2021 3:34 PM EST [facility] TISSUE SPECIMEN FROM PLACENTA / Unknown 01/22/2021 3:33 PM EST 01/22/2021 3:33 PM EST False Vocal Cords, Bilateral 01/22/2021 3:33 PM EST 01/22/2021 3:33 PM EST TISSUE SPECIMEN FROM PLACENTA / Unknown 01/22/2021 3:33 PM EST 01/22/2021 3:33 PM EST Rustam Hoffman MD PATHOLOGY/CYTOLOGY O RDERABLES [facility] [place] [address] * Specimen to Pathology (01/22/2021 3:33 PM EST) AP Specimen 01/22/2021 3:33 PM EST 01/22/2021 3:33 PM EST Narrative [facility] - 01/22/2021 3:33 PM EST Specimen requisition ordered. ??Separate Pathology report to follow Malissa Borrero MD PATHOLOGY/CYTOLOGY O MAY Performing Organization Address City/[facility]/ZIP Co de Phone Number [facility] [place] [address] * Type and Screen Validity (01/22/2021 7:33 AM EST) T&S only valid at [facility] LABORATORY Comment:This Type and Screen result is only valid at the [facility] Hospital Blood 01/22/2021 7:33 AM EST 01/22/2021 7:39 AM EST Narrative Resulting Agency Comment Spec In Lab Inge Benavides MD BLOOD BANK LAB ORDER JERRY Performing Organization Address City/[facility]/ZIP Co de Phone Number [facility] [place] [address] * ABORH Recheck Status (01/22/2021 7:33 AM EST) ABORH Type Recheck Completed [facility] Blood 01/22/2021 7:33 AM EST 01/22/2021 7:39 AM EST Narrative Resulting Agency Comment Spec In Lab Inge Benavides MD BLOOD BANK LAB ORDER JERRY Performing Organization Address City/[facility]/ZIP Co de Phone Number [facility] [place] [address] * Antibody screen (01/22/2021 7:33 AM EST) Ab Screen Interp Negative [facility] Expires at [id number] on: 01/25/2021 [facility] Blood 01/22/2021 7:33 AM EST 01/22/2021 7:39 AM EST Narrative Resulting Agency Comment Spec In Lab Inge Benavides MD BLOOD BANK LAB ORDER JERRY Performing Organization Address City/[facility]/ZIP Co de Phone Number [facility] [place] [address] * ABO/Rh Typing (01/22/2021 7:33 AM EST) ABORH Type B Pos [facility] Blood 01/22/2021 7:33 AM EST 01/22/2021 7:39 AM EST Narrative Resulting Agency Comment Spec In Lab Inge Benavides MD BLOOD BANK LAB ORDER JERRY Performing Organization Address [facility] Co de Phone Number [facility] [place] [address] * pro-Brain Natriuretic Peptide (01/17/2021 8:19 PM EDT) Pathologist [facility] NT-proBNP 70 <=124 pg/mL [facility] Blood 01/17/2021 8:19 PM EDT 01/17/2021 8:33 PM EDT Narrative Resulting Agency Comment Spec In Lab Grace Desai MD CHEMISTRY ORDERABL ES Performing Organization Address [facility] Co de Phone Number [facility] [place] [address] * Troponin (01/17/2021 8:19 PM EDT) Pathologist [facility] Troponin-T <0.01 0.00 - 0.00 ng/mL [facility] Comment: The 99th percentile for Troponin T is less than 0.01 ng/mL, any detectable cTnT concentration using this assay should be considered elevated. According to the third universal definition of myocardial infarction the following criteria with a clinical presentation consistent with acute myocardial ischemia meets the diagnosis for a myocardial infarction (DC). Detection of a rise and/or fall of cTnT, with at least one value greater than the 99th percentile (> or = 0.01) and with at least one of the following ?? Symptoms of ischemia ?? New or presumed new significant YJ-klnrcsn-Z wave (ST-T) changes or new left bundle [...] additional sample may be indicated. Reference: Third Thompson Definition of Myocardial Infarction. Journal of the [place] [employer] 2012;60:1581-98 Blood 01/17/2021 8:19 PM EDT 01/17/2021 8:33 PM EDT Narrative Resulting Agency Comment Spec In Lab Grace Desai MD CHEMISTRY ORDERABL ES Performing Organization Address [facility] Co de Phone Number [facility] [place] [address] * Syphilis Screening Antibody with reflex RPR (01/17/2021 8:19 PM EDT) Pathologist [facility] Syphilis IgG/IgM Negative Negative [facility] Blood 01/17/2021 8:19 PM EDT 01/17/2021 8:33 PM EDT Narrative Resulting Agency Comment Spec In Lab Grace Desai MD CHEMISTRY ORDERABL ES Performing Organization Address [facility] Co de Phone Number [facility] [place] [address] * EKG 12 Lead (01/17/2021 8:06 PM EDT) Ventricular rate 95 BPM MUSE SYSTEM Atrial Rate 95 BPM MUSE SYSTEM P-R Interval 138 ms MUSE SYSTEM QRS Duration 90 ms MUSE SYSTEM Q-T Interval 360 ms MUSE SYSTEM QTC Calculated (Bezet) 452 ms MUSE SYSTEM Calculated P [place] 36 degrees MUSE SYSTEM Calculated R [place] 32 degrees MUSE SYSTEM Calculated T [place] 30 degrees MUSE SYSTEM INTERPRETATION Normal sinus rhythm Normal ECG When compared with ECG of 16-JAN-2021 17:09, No significant change was found Confirmed by MD Borrero Danette ([id number]) on 01/18/2021 1:52:41 PM MUSE SYSTEM 01/17/2021 8:06 PM EDT 01/18/2021 1:52 PM EDT Grace Desai MD ECG ORDERABLES MUSE SYSTEM * Place PICC Line: Contact Vascular Access Page [phone] Extremity to exclude: No restrictions; Is PICC [...] to the planned procedure. Hand Hygiene: The labor delivery specialist did perform hand hygiene prior to line insertion. Catheter type: PICC Lot number: [id number] Procedure Technique: Skin was prepped with chlorhexidine. [...] who have questions please contact the health youth care worker that requested your imaging first. ? Narrative [...] patients who have questions please contactthe health youth care worker that requested your imaging first. Grace Desai [...] who have questions, please contact the health youth care worker that requested your imaging first. ?Rustam Hoffman, Staff Physician Electronically Signed Final Report ?? 01/17/2021 01:32 pm Narrative 01/17/2021 1:32 PM EDT OBSTETRICS REPORT ?(Signed Final 01/17/2021 01:32 pm) PATIENT INFO: ID #: ? [id number] ?: ??[birth year] (25 yrs)(F) Name: ? MARY Polo ?Visit Date: 01/17/2021 11:51 am ? CHIQUITA PERFORMED BY: Performed By: ? Lucie Villarreal RDMS Attending: ?Yasmin MEDINA, Rustam Mccallum Referred By: ?GRACE DESAI Location: ? [place] SERVICE(S) PROVIDED: UOBFOL - Efw - Growth ??- Carias - [id number] INDICATIONS: 32 weeks gestation of ?Z3A.32 systolic [...] 01/17/2021 01:32 pm) PATIENT INFO: ID #: [id number] : [birth year] (25 yrs)(F) Name: MARY Polo Visit Date: 01/17/2021 11:51 am CHIQUITA PERFORMED BY: Performed By: Lucie Villarreal RDMS Attending: Rustam Hoffman MD Referred By: GRACE DESAI Location: [place] SERVICE(S) PROVIDED: UOBFOL - Efw - Growth - Carias - [id number] INDICATIONS: 32 weeks gestation of Z3A.32 systolic [...] who have questions, please contact the health youth care worker that requested your imaging first. Rustam Hoffman, [...] (Bezet) 464 ms MUSE SYSTEM Calculated P [place] 52 degrees MUSE SYSTEM Calculated R [place] 48 degrees MUSE SYSTEM Calculated T [place] 30 degrees MUSE SYSTEM INTERPRETATION Normal sinus rhythm with sinus arrhythmia Normal ECG When compared with ECG of 27-SEP-2020 11:04, No significant change was found Confirmed by MD Concepción, Adán Angelo ([id number]) on 01/16/2021 5:26:04 PM MUSE SYSTEM 01/16/2021 5:09 PM EDT 01/16/2021 5:26 PM EDT Grace Desai MD ECG ORDERABLES MUSE SYSTEM * Group B Streptococcus Screen (01/16/2021 4:57 PM EDT) Pathologist [facility] GBS Screen Pos [facility] Vaginal/Rectal 01/16/2021 4: 57 PM EDT 01/16/2021 5:55 PM EDT Comment:Penicillin Allergy?- >No Narrative Resulting Agency Comment Spec In Lab Bri No MD MICROBIOLOGY - GENER AL ORDERABLES Performing Organization Address City/[facility]/ZIP Co de Phone Number [facility] [place] [address] * COVID-19 PCR (01/16/2021 4:57 PM EDT) SARS-CoV-2 RNA (Rapid) Not Detected Not Detected [facility] Comment: This result should be interpreted [...] using the Simplexa COVID-19 Direct Assay by Grand Perfecta as authorized by the FDA issued Emergency [...] Department of Pathology and Laboratory Medicine at [facility], certified under the Clinical Laboratory Improvement [...] fact sheets at the following FDA website: https://www.fda.gov/medical-devices/syrmhozcowx-icconwx-5135-pvneg-41-yrthpozoy- use-a xvhmztjpofmdn-leplqmr-xtcarlp/lzxio-vvwdljgvkgg-swvs SARS-CoV-2 Source PROFESSOR OF COMMUNICATION [employer]S Swab [facility] Nasopharyngeal Swab 01/17/20 4:57 PM EDT 01/16/2021 6:40 PM EDT Comment:Symptoms->Surveillan ce Narrative Resulting Agency Comment Spec In Lab Grace Desai MD MICROBIOLOGY - GEN ERAL ORDERABLES [facility] [place] [address] * (ABNORMAL) Group B Strep Culture Screen (01/16/2021 4:57 PM EDT) [facility] Group B Streptococcus Culture Beta Hemolytic Streptococci, Group B isolated(A) [facility] Organism Beta Hemolytic Streptococci, Group B(A) [facility] Vaginal/Rectal 01/16/2021 4: 57 PM EDT 01/16/2021 5:55 PM EDT Comment:Penicillin Allergy?- >No Narrative Resulting Agency Comment Spec In Lab Garce Desai MD MICROBIOLOGY - GEN ERAL ORDERABLES Performing Organization Address [facility] Co de Phone Number [facility] [place] [address] * Troponin (01/16/2021 4:48 PM EDT) [facility] Troponin-T <0.01 0.00 - 0.00 ng/mL [facility] Comment: The 99th percentile for Troponin T is less than 0.01 ng/mL, any detectable cTnT concentration using this assay should be considered elevated. According to the third universal definition of myocardial infarction the following criteria with a clinical presentation consistent with acute myocardial ischemia meets the diagnosis for a myocardial infarction (DC). Detection of a rise and/or fall of cTnT, with at least one value greater than the 99th percentile (> or = 0.01) and with at least one of the following ?? Symptoms of ischemia ?? New or presumed new significant VJ-dknyjpp-I wave (ST-T) changes or new left bundle [...] additional sample may be indicated. Reference: Third Thompson Definition of Myocardial Infarction. Journal of the [place] [employer] 2012;60:1581-98 Blood Venous Draw / Unknown 01/16/2021 4:48 PM EDT 01/16/2021 4:50 PM EDT Narrative Resulting Agency Comment Spec In Lab Bri No MD CHEMISTRY ORDERABLES Performing Organization Address City/[facility]/ZIP Co de Phone Number [facility] [place] [address] * pro-Brain Natriuretic Peptide (01/16/2021 4:48 PM EDT) Pathologist [facility] NT-proBNP 77 <=124 pg/mL [facility] Blood Venous Draw / Unknown 01/16/2021 4:48 PM EDT 01/16/2021 4:50 PM EDT Narrative Resulting Agency Comment Spec In Lab Bri No MD CHEMISTRY ORDERABLES Performing Organization Address City/[facility]/ZIP Co de Phone Number [facility] [place] [address] * (ABNORMAL) Differential, Automated (01/16/2021 4:48 PM EDT) Pathologist [facility] Neutrophil % 67.9 % [facility] Neutrophil Absolute 9.01(H) 1.70 - 6.10 x10(3)/mc L [facility] Lymph % 18.6 % [facility] Lymphocytes Abs 2.5 0.9 - 3.2 x10(3)/mc L [facility] Monocyte % 8.4 % [facility] Monocyte Abs 1.1(H) 0.3 - 0.9 x10(3)/mc L [facility] Eos % 2.0 % [facility] Eosinophils Abs 0.3 0.0 - 0.4 x10(3)/mc L [facility] Basophil % 0.6 % [facility] Baso Absolute 0.1 0.0 - 0.1 x10(3)/mc L [facility] Immature Gran % 2.50 % [facility] Comment: Immature granulocytes(IG's)percentage and absolute count will include metamyelocytes, myelocytes, and promyelocytes. Blood smears from CBCs yielding IG's will be scanned manually for concordance. If this scan disagrees with the automated IG or if promyelocytes are noted, a manual differential will be performed. Immature Gran Absolute 0.33(H) 0.00 - 0.04 x10(3)/ L [facility] Blood 01/16/2021 4:48 PM EDT 01/16/2021 4:48 PM EDT Narrative Resulting Agency Comment Spec In Lab Bri No MD HEMATOLOGY ORDERABLE S [facility] [place] [address] * (ABNORMAL) Hemogram (01/16/2021 4:48 PM EDT) White Blood Cell 13.3(H) 4.0 - 9.5 x10(3)/mc L [facility] Red Blood Cell 4.20 4.00 - 5.21 x10(6)/mc L [facility] Hemoglobin 11.6(L) 11.7 - 15.5 g/dL [facility] Hematocrit 36.8 35.7 - 45.8 % [facility] Mean Cell Volume 87.6 82.6 - 94.4 fL [facility] Mean Cell Hemoglobin 27.6 27.1 - 32.0 pg [facility] Mean Cell Hemoglobin Concentration 31.5(L) 31.7 - 35.0 g/dL [facility] Platelet 300 145 - 357 x10(3)/mc L [facility] RDW Standard Deviation 42.7 37.0 - 46.0 fL [facility] RDW coefficient of variation 13.3 11.5 - 14.1 % [facility] Mean Platelet Volume 10.0 7.6 - 12.9 fL [facility] NRBC% auto 0.0 % [facility] NRBC Absolute 0.000 0.000 - 0.000 x10(3)/mc L [facility] Blood 01/16/2021 4:48 PM EDT 01/16/2021 4:48 PM EDT Narrative Resulting Agency Comment Spec In Lab Bri No MD HEMATOLOGY ORDERABLE S [facility] [place] [address] * (ABNORMAL) Comprehensive metabolic panel (non-fasting) (01/16/2021 4:48 PM EDT) Glucose 76 65 - 199 mg/dL [facility] Comment:Diabetes: >=200 mg/d L plus symptoms Blood Urea Nitrogen 7(L) 8 - 18 mg/dL [facility] Creatinine 0.57(L) 0.70 - 1.20 mg/dL [facility] Sodium 137 135 - 145 mmol/L [facility] Potassium 3.7 3.5 - 5.0 mmol/L [facility] Comment: Please note: ??Patients with WBC >100,000 may have falsely elevated Potassium levels. ??For accurate Potassium quantification in these patients send serum separator tube (gold top) for subsequent determinations. ??Contact the Clinical Chemistry Laboratory if there are any questions. Chloride 102 98 - 107 mmol/L [facility] Carbon Dioxide 24 22 - 31 mmol/L [facility] Anion Gap 11 5 - 15 mmol/L [facility] Calcium 9.4 8.5 - 10.5 mg/dL [facility] Protein, Total 7.4 6.1 - 8.0 g/dL [facility] Albumin 3.9 3.2 - 5.2 g/dL [facility] Aspartate Aminotransferase 15 0 - 30 unit/L [facility] Alanine Aminotransferase 10 0 - 30 unit/L [facility] Alkaline Phosphatase 114(H) 35 - 105 unit/L [facility] Bilirubin, Total <0.2(L) 0.2 - 1.3 mg/dL [facility] Est Glomerular Filtration Rate 130 >=60 mL/min/1. 73 m?? [facility] Comment: This patient? s estimated [...] Lab Grace Desai MD CHEMISTRY ORDERABL ES [facility] [place] [address] * Type and Screen Validity (01/16/2021 4:40 PM EDT) Pathologist [facility] T&S only valid at [facility] LABORATORY Comment:This Type and Screen result is only valid at the [facility] Blood 01/16/2021 4:40 PM EDT 01/16/2021 4:49 PM EDT Narrative Resulting Agency Comment Spec In Lab Bri No MD BLOOD BANK LAB ORDER JERRY [facility] [place] [address] * ABORH Recheck Status (01/16/2021 4:40 PM EDT) ABORH Type Recheck Completed [facility] Blood 01/16/2021 4:40 PM EDT 01/16/2021 4:49 PM EDT Narrative Resulting Agency Comment Spec In Lab Bri No MD BLOOD BANK LAB ORDER JERRY [facility] [place] [address] * Antibody screen (01/16/2021 4:40 PM EDT) Ab Screen Interp Negative [facility] Expires at [id number] on: 01/19/2021 [facility] Blood 01/16/2021 4:40 PM EDT 01/16/2021 4:49 PM EDT Narrative Resulting Agency Comment Spec In Lab Bri No MD BLOOD BANK LAB ORDER JERRY Performing Organization Address City/[facility]/ZIP Co de Phone Number [facility] [place] [address] * ABO/Rh Typing (01/16/2021 4:40 PM EDT) ABORH Type B Pos [facility] Blood 01/16/2021 4:40 PM EDT 01/16/2021 4:49 PM EDT Narrative Resulting Agency Comment Spec In Lab Bri No MD BLOOD BANK LAB ORDER JERRY [facility] [place] [address] documented in this encounter Visit Diagnoses Not on filedocumented in this encounter Admitting Diagnoses Diagnosis Cardiomyopathy, [...] Given 01/25/2021 1:09 AM EST 650 mg calcium carbonate (Tums) chewable tablet 1,000 [...] Given 01/16/2021 5:56 PM EDT 1,000 mg docusate sodium (Colace) capsule 100 mg 100 [...] Given 01/24/2021 7:21 PM EST 5 mg heparin (porcine) (5,000 units/1 mL) subcutaneous injection 5,000 Units 5,000 Units, Subcutaneous, EVERY 12 HOURS SCHEDULED (2 times per day), First dose on Wed01/22/21 at 2100, Until Discontinued, Routine Given 01/25/2021 10:00 AM EST 5,000 Units Given 01/24/2021 9:10 PM EST 5,000 Units A bdominal Tissue Given 01/24/2021 9:20 AM EST 5,000 Units lidocaine (Lidoderm) 5% patch 1 patch 1 [...] on Wed01/21/21 at 2145, Until Discontinued, Routine Given 01/24/2021 9:25 PM EST 12 mg Given 01/23/2021 11:49 PM EST 12 mg Given 01/22/2021 8:25 PM EST 12 mg metoprolol succinate XL (Toprol-XL) tablet 25 mg 25 mg, Oral, DAILY, First dose on 01/25/21 at 0900, Until Discontinued, DO NOT CRUSH OR OPEN, Routine Given 01/25/2021 10:00 AM EST 25 mg ondansetron (pf) (Zofran) (2 mg/mL) injection [...] Given 01/25/2021 10:14 AM EST 17 g sertraline (Zoloft) tablet 25 mg 25 mg, Oral, DAILY, First dose on Wed01/23/21 at 1000, Until Discontinued, Routine Given 01/25/2021 10: 00 AM EST 25 mg Given 01/24/2021 9:20 [...] Tanya Obrien RN)1148 (Given - Provider: Tiana Sun RN)1724 (Given - Provider: Kiera Saab, WILLOW)2347 (Given - Provider: Chanda Parra, WILLOW) 0600 (Given - Provider: Chanda Parra, WILLOW)1201 (Given - Provider: Sravanthi Ramirez, WILLOW)1921 (Given - Provider: Sravanthi Ramirez, WILLOW) 0109 (Given - Provider: Shi Zendejas RN)0636 (Given - Provider: Shi Zendejas RN)1425 (Given - Provider: Shandra Mccormick RN) docusate sodium (Colace) capsule 100 mg 100 mg, Oral, 2 TIMES DAILY, First dose on Wed01/22/21 at 2100, Until Discontinued, Routine 0943 (Given - Provider: Tiana Sun RN)2130 (Given - Provider: Wendy Del Valle RN) 0920 (Given - Provider: Sravanthi Ramirez RN)2110 (Given - Provider: Shi Zendejas RN) 1000 (Given - Provider: Shandra Mccormick, WILLOW) enalapriL (Vasotec) tablet 5 mg 5 mg, Oral, NIGHTLY, First dose on Wed01/24/21 at 1845, Until Discontinued, Routine 1921 (Given - Provider: Sravanthi Ramirez, WILLOW) heparin (porcine) (5,000 units/1 mL) subcutaneous injection 5,000 Units 5,000 Units, Subcutaneous, EVERY 12 HOURS SCHEDULED (2 times per day), First dose on Wed01/22/21 at 2100, Until Discontinued, Routine 0943 (Given - Provider: Tiana Sun RN)213 (Given - Provider: Wendy Del Valle, WILLOW) 0920 (Given - Provider: Sravanthi Ramirez, WILLOW)211 (Given - Provider: Shi Zendejas, WILLOW) 1000 (Given - Provider: Shandra Mccormick, WILLOW) ketorolac (Toradol) (15 mg/mL) injection 15 mg (COMPLETED)(Linked Group 1) 15 mg, Intravenous, EVERY 6 HOURS, 5 doses, First dose on Wed01/23/21 at 0945, Last dose on Wed01/24/21 at 0945, Routine 0943 (Given - Provider: Tiana Sun RN)1725 (Given - Provider: Kiera Saab RN)2350 (Given - Provider: Chanda Parra, WILLOW) 0600 (Given - Provider: Chanda Parra, WILLOW)1200 (Given - Provider: Sravanthi Ramirez, WILLOW) lidocaine (Lidoderm) 5% patch 1 patch(Linked Group 2) 1 patch, Transdermal, EVERY 24 HOURS, First dose (after last modification) on Wed01/23/21 at 2000, Until Discontinued, Apply patch(es) for 12 hours, and then remove for 12 hours., Routine 2142 (Patch Applied - Provider: Chanda Parra RN) 2119 (Patch Applied - Provider: Shi Zendejas RN) lidocaine (Lidoderm) topical patch REMOVAL(Linked Group 2) Transdermal, EVERY 24 HOURS, First dose (after last modification) on Wed01/24/21 at 0800, Until Discontinued, Remove lidocaine 5% patch 0900 (Patch Removed - Provider: Sravanthi Ramirez RN) 0800 (Patch Removed - Provider: Shandra Mccormick, WILLOW) melatonin tablet 12 mg 12 mg, Oral, NIGHTLY, First dose on Wed01/21/21 at 2145, Until Discontinued, Routine 2349 (Given - Provider: Chanda Parra, WILLOW) 2125 (Given - Provider: Shi Zendejas, WILLOW) metoprolol succinate XL (Toprol-XL) tablet 25 mg 25 mg, Oral, DAILY, First dose on Wed01/25/21 at 0900, Until Discontinued, DO NOT CRUSH OR OPEN, Routine 1000 (Given - Provider: Shandra Mccormick, WILLOW) metoprolol tartrate (Lopressor) tablet 12.5 mg (CANCELED) 12.5 mg, Oral, EVERY 6 HOURS SCHEDULED, First dose on Angelita 01/23/21 at 1200, Until Discontinued, Routine 1148 (Given - Provider: Tiana Sun RN)1724 (Given - Provider: Kiera Saab RN)2348 (Given - Provider: Chanda Parra, WILLOW) 0600 (Given - Provider: Chanda Parra, WILLOW)1207 (Given - Provider: Sravanthi Ramirez RN) sertraline (Zoloft) tablet 25 mg 25 mg, Oral, DAILY, First dose on Angelita 01/23/21 at 1000, Until Discontinued, Routine 0943 (Given - Provider: Tiana Sun RN) 0920 (Given - Provider: Sravanthi Ramirez RN) 1000 (Given - Provider: Shandra Mccormick RN) sodium chloride 0.9 % (flush) (BD PosiFlush Normal Saline 0.9) flush 5 mL 5 mL, Intravenous, 2 TIMES DAILY, First dose on Angelita 01/16/21 at 2100, Until Discontinued, Routine 0944 (Given - Provider: Tiana Sun RN)2134 (Given - Provider: Wendy Del Valle RN) 0900 (Due - Provider: Admin Adt)2114 (Given - Provider: Shi Zendejas RN) 1000 [...] mcg/min (7.5 mL/hr), Intravenous, CONTINUOUS, Starting on 01/22/21 at 1830, Until Angelita 01/23/21 at 0755, Concentration: 8 mcg/mL. Warning Vesicant/Irritant Medication 0000 (Rate/Dose Verify - Provider: Tanya Obrien RN)0200 (Rate/Dose Verify - Provider: Tanya Obrien [...] RN)1250 (See Alternative - Provider: Kiera Saab RN)184 (See Alternative - Provider: Kiera Saab RN) 0926 (See Alternative - Provider: Sravanthi Ramirez RN)160 (Given - Provider: Sravanthi Ramirez RN)213 (See Alternative - Provider: Shi Zendejas RN) oxyCODONE (Roxicodone) tablet 5 mg(Linked Group 3) 5 mg, Oral, EVERY 4 HOURS PRN, Starting on Wed01/22/21 at 1630, Until 01/25/21 at 1913, Pain, for pain scale 6-8, Routine 0549 (See Alternative - Provider: Tanya Obrien RN)1250 (Given - Provider: Kiera Saab RN)1841 (Given - Provider: Kiera Saab RN) 0926 (Given - Provider: Sravanthi Ramirez RN)160 (See Alternative - Provider: Sraavnthi Ramirez RN)213 (Given - Provider: Shi Zendejas RN) polyethylene [...] Routine 2135 (Given - Provider: Wendy Del Valle RN) Linked Groups Order Group 1: ketorolac (Toradol) [...] documented as of this encounter Care Teams Counter Stitcher Relationship Specialty Start Date End Date Pietro Son PA [address] [place] [address] PCP - General Internal Medicine 09/27/20 documented as of this encounter
--- OUTSIDE RECORDS SUMMARY | 2024-01-03 13:11 | XMS_ITS | Encounter Summary ---
Author Organization [facility] [place] [address] Care Team Providers Care Strategic Planning Director Name Role Phone Pietro Son Primary Care Provider [phone] Reason for Visit * Auth/Cert Specialty Diagnoses / Procedures Referred By Marvin vo Referred To Contact Diagnoses Cardiomyopathy, peripartum, antepartum AND TUBAL Procedures PRO DELIVERY ONLY PRO REMOVAL OF FALLOPIAN TUBE @ DELIVERY (WRVU 16.13) @SALPINGECTOMY (WRVU 12.95) Referral ID Status Reason Start Date Expiration Date Visits Re quested Visits Authorized [id number] 1 1 Encounter Details Date Type Department Care Team (Late st Contact Info) Description 01/22/2021 1:34 PM EST Anesthesia [place] [address] Alyx Greene MD [facility] [place] [address] Anesthesia Record Procedure Summary Procedure Name Responsible Anesthesiologist Anesthesia Start Time Anesthesia Stop Time @ DELIVERY (WRVU 16.13) (Midline: Abdomen) Alyx Greene MD 01/22/21 1334 01/22/21 1645 Events Date Time Event Comment 01/22/2021 1200 1334 AN Verify 1334 Start 1334 An Start Data 1425 Epidural 1435 L Uterine Displacement 1435 Anesthesia Ready 1456 Quick Note Decreased sensa tion to pinprick up to T6 bilaterally 1514 Skin Incision 1523 Uterine Incision 1524 Baby Delivered 1624 an stop data 1630 Recovery or ICU Handoff Alma ent care was transferred to the destination unit staff after review of the patient's medical history, current anesthetic/surgical status and plan, according to the Provider Handoff Checklist. 1645 Stop Meds Name Total fentaNYL 100 mcg Lidocaine 2% 17 mL EPINEPHrine INF 129 mcg NORepinephrine INF 66 mcg Dexmedetomidine 12 mcg Vasopressin 1.5 Units NORepinephrine 8 mcg Metoclopramide 6 mg oxytocin (Pitocin) (0.06 units/mL) in so dium chloride 0.9% 500 mL infusion 716.67 mL Morphine (PF) 2 mg acetaminophen IV 1,000 mg Lactated Ringers 200 mL Sodium Chloride 0.9% 250 mL * Agents Name O2 Air N2O Isoflurane (et) O2 Auxiliary Flowmeter 1 * Blood No blood administrations on file. Lines, Drains, and Airways Type Details Placement Removal (RETIRED By NOE) Incision 10/08/13; 0400 10/08/13 0400 by Torsetn Schneider RN Incision 01/22/21; 1519; anterior; horizontal 01/22/21 1519 by Lana Freeman RN (RETIRED) PICC Line - Double Lumen 01/17/21; 1408; basilic vein (medial side of arm), right; pressure injectable catheter; 5 Fr ([id number]); 0 cm; 38 cm; 38 cm; placement verified by x-ray; superior vena cava; CCampRNVAS; distraction, intradermal injection; Recovered 38 cm; no longer indicated, removed per physician, removed per policy/procedure, site care per policy/procedure, catheter/device intact; 01/25/21; 1452 01/17/21 1408 by Yanely Singh RN 01/25/21 1452 by Rivka Henriquez RN (RETIRED) Peripheral IV Line - Single Lumen 01/20/21; 0629; cephalic vein (lateral side of arm), left; [id number] catheter system; Ultrasound Guidance; 18 gauge, 1 in length, 3/4 in length; rmt, hardening machine operator-vas; distraction, intradermal injection, tolerated well, appears comfortable; 01/25/21; 1436 01/20/21 0629 by Heaven Angel LPN 01/25/21 1436 by Shandra Truong RN Arterial Line 01/22/21; 1342; radi al artery, right; 20 gauge; Guidewire, Ultrasound Guidance; Yes - US guidance used for evaluation of potential access sites, vessel patency and realtime visualization of needle entry with permanent recording.; continuous blood pressure monitoring, frequent blood gas measurement; Armando; Sterile Gloves, Sterile Prep; 01/23/21; 1000 01/22/21 1342 by Giles Roberts MD 01/23/21 1000 by Tiana Sun RN Epidural 01/22/21; 1400; thoracic; 01/23/21; 1700 01/22/21 1400 by Tiana Sun RN 01/23/21 1700 by Kayleigh Lockwood MD Urethral Catheter 01/22/21; 1458; late x; 14; 1; 5; 10; 01/23/21; 1510 01/22/21 1458 by Lana Freeman RN 01/23/21 1510 by Kiera Saab RN documented in this encounter Social History Tobacco Use Types Packs/Day Years Used Date Smoking Tobacco: Former Smokeless Tobacco: Never Comments:smokes weed Alcohol Use Standard Drinks/Week Comments Not Currently 0 (1 standard drink = 0.6 oz pur e alcohol) Comments Yes Sex and Gender Information Value Date Recorded Sex Assigned at Female 11/26/2021 10:32 AM EDT Gender Identity Choose not to disclose 10:32 AM EDT Sexual Orientation Straight 11/26/2021 10 :32 AM EDT documented as of this encounter OR Notes * Anesthesia Postprocedure Evaluation - Kayleigh Lockwood MD - 01/23/2021 9:02 AM EST Department of Anesthesiology Post-procedure Note Patient: Mary Porras Procedure Summary Date: 01/22/21 Room / Location: [facility] OR [address] [place] [address] MAIN OR Anesthesia Start: 1334 Anesthesia Stop: 1645 Procedures: @ DELIVERY (WRVU 16.13) (Midline Abdomen) @SALPINGECTOMY (WRVU 12.95) (Bilateral Abdomen) Diagnosis: (non ischemic cardiomyopathy, ) Surgeons: Reuben Cuellar MD Responsible Provider: Alyx Greene MD Anesthesia Type: epidural ASA Status: 4 All Anesthesia Providers: Anesthesiologist: Kayleigh Lockwood MD; Alyx Greene MD Cotton Ginner Helper: Giles Roberts MD Vitals Value Taken Time BP 97/60 01/23/21 0901 Temp 36.7 ??C (98.1 ??F) 01/23/21 0800 Pulse 98 01/23/21 0902 Resp 15 01/23/21 0902 SpO2 98 % 01/23/21 0902 Pain Level 0 01/23/21 0800 Vitals shown include unvalidated device data. Patient Location: ICU Level of Consciousness: Awake and Alert Pain Management: Satisfactory Analgesia PONV: None Cardiovascular Status: At Baseline Respiratory Status: At Baseline and Room Air Postoperative Fluid Status: Intravascular EUvolemia Possible Anesthetic Complications: NONE apparent at time of evaluation Final Primary Anesthesia Type: Epidural (The anesthetic type performed was the same as planned.) Comments: Visited patient in ICU, now POD1 from her delivery and bilateral salpingectomy under epidural anesthesia. Patient has been doing very well. Epidural infusion left running overnight(2cc/h 0.2% ropi). Patient reports some soreness this morning. Eating and drinking okay. Pressors weaned off overnight. Net negative 3 L overnight (autodiuresis). Labs normal this morning. On exam, well appearing, lying comfortably in bed, NAD or increased WOB. Lungs clear to auscultation at bases. Plan to start Toradol this morning. Will turn off epidural infusion at this time. Epidural catheterwill be left in place (okay to given morning subQ heparin). We will reassess this afternoon and likely pull epidural at that time if doing well. Please do not start enoxaparin until epidural catheterremoved. Plan discussed with OB and CVCC teams. F/u: Patient now transferred to . Has been ambulating without issue. Pain well controlled. Epidural catheter pulled, tip intact. Kayleigh Lockwood MD Attending Anesthesiologist Pager [phone] 01/23/21 6:09 PM * Anesthesia Postprocedure Evaluation - Alyx Greene MD - 01/22/2021 5:15 PM EST Department of Anesthesiology Post-procedure Note Patient: Mary Porras Procedure Summary Date: 01/22/21 Room / Location: [address] MAIN OR Anesthesia Start: 1334 Anesthesia Stop: Procedures: @ DELIVERY (WRVU 16.13) (Midline Abdomen) @SALPINGECTOMY (WRVU 12.95) (Bilateral Abdomen) Diagnosis: (non ischemic cardiomyopathy, ) Surgeons: Reuben Cuellar MD Responsible Provider: Alyx Greene MD Anesthesia Type: epidural ASA Status: 4 All Anesthesia Providers: Anesthesiologist: Kayleigh Lockwood MD; Alyx Greene MD Cotton Ginner Helper: Giles Roberts MD Vitals Value Taken Time BP Temp 36.7 ??C (98.1 ??F) 01/22/21 1645 Pulse 81 01/22/21 1714 Resp 10 01/22/21 1714 SpO2 98 % 01/22/21 1714 Pain Level Vitals shown include unvalidated device data. Patient Location: [facility] Level of Consciousness: Awake and Alert Pain Management: Satisfactory Analgesia PONV: None Cardiovascular Status: Hemodynamically Stable Respiratory Status: Room Air, Stable Respiratory Status and At Baseline Postoperative Fluid Status: Intravascular EUvolemia Possible Anesthetic Complications: NONE apparent at time of evaluation Final Primary Anesthesia Type: Epidural (The anesthetic type performed was the same as planned.) Comments: The patient's hemodynamics, ventilation and oxygenation were stable during transport. Face to face handoff was performed with the ICU team. Infusions include low dose epinephrine at 0.01 mcg/kg/min and oxytocin. She is doing well, comfortable and feels like her breathing is unlabored and normal. She is having no nausea and otherwise doing well. We discussed running low dose epidural solution to ensure she is comfortable through the night. * Anesthesia Procedure Notes - Alyx Greene MD - 01/22/2021 2:25 PM EST Associated Order(s): Neuraxial Block Procedure: Neuraxial Block Primary Anesthetic Type: Epidural The patient was greeted. The sedation plan, its benefits, risks and alternatives were discussed with the patient. The patient has consented to the procedure. The medical history and chart were reviewed. The timeout was performed. Start time: 01/22/2021 2:05 PM End time: 01/22/2021 2:25 PM Patient Location: Operating Room Patient Prep Position: Right lateral decubitus Prep: Hand Hygiene, Hat, Mask, Sterile Gloves, Chlorhexidine and Patient Draped Injection technique: continuous Skin Anesthetic Lidocaine 1% 5 ml Procedure Technique Level of needle insertion: L2-3 Needle approach: midline Needle Type: Tuohy Gauge: 17 Needle length: 3.5 in Needle insertion depth when AKOSUA achieved: 9 cm Technique for Loss of Resistance: AKOSUA saline A 21 guage epidural catheter introduced into the epidural space. Catheter at skin depth: 16 cm Dressing/Secured with: Chlorhexidine Tegaderm and Tegaderm Number of attempts: 2 Events/Notes Events: unexpected parasthesia, parethesias with first attempt at likely L3-4, re-attempted at L2-3and successful without further symptoms Additional Notes: Patient felt light-headed and pre-syncopal during sitting epidural preparations. We put her in left lateral decubitus to recover. Attempted again to prepare for epidural and again, the patient had anxiety and pre-syncopal symptoms. Third attempt was lateral and we were able to proceed with local injection in the lateral position. Patient tolerated well and remained in communication throughout. First attempt with false loss and paresthesia at L3-4. Second attempt at L2-3 with AKOSUA at 9cm. Positive dural puncture with spinal needle for confirmation. Catheter threaded uneventfully. Aspiration negative. Resident/STONE SAWYER: Giles Roberts MD Second Resident/STONE SAWYER: SRNA: Fellow: Attending Physician: Alyx Greene MD ~~~~~~~~~~~~~~~~~~~~~~~~~~~~~~~~~~~~~~~~~~~~~~~~~~~~~~~~~~~~ * Anesthesia Preprocedure Evaluation - Alyx Greene MD - 01/16/2021 4:51 PM EDT Pre-Anesthesia Evaluation for: Mary Porras a 25 y.o. female. * No procedures listed * Patient Active Problem List Diagnosis ??? Cardiomyopathy, [...] cardiomyopathy Past Medical History: Diagnosis Date ??? 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 CENTRAL VENOUS CATHETER ??? PRO DELIVERY ONLY 10/08/2013 @ DELIVERY performed by Meri Zimmerman MD at [facility] MAIN OR Social History Tobacco Use ??? Smoking status: Former Smoker ??? Smokeless tobacco: Never Used ??? Tobacco comment: smokes weed Substance Use Topics ??? Alcohol use: Not Currently Social History Substance and Sexual Activity Drug Use Never Allergies Allergen Reactions ??? Unknown [Unclassified Drug] seasonal Medications: MAR and/or home medications have been reviewed. Physical Exam: Preprocedure Vitals Current as of 01/16/21 1651 BP: 109/66 Pulse: 93 Resp: SpO2: 99 Temp: 36.7 ??C (98.1 ??F) Height: 177.8 cm (5' 10) (01/16/21) Weight: 95.7 kg (211 lb) (01/16/21) BMI: 30.27 IBW: 68.5 kg (151 lb 0.2 oz) Last edited 01/16/21 1519 by AMARIS Currently displaying vitals information from multiple entries within 90 minutes of most recent vitals. Airway Assessment: Mallampati: I TM distance: >3 FB Neck ROM: full Cardiovascular Assessment: Rhythm: regular Rate: normal (-) murmur Pulmonary Assessment: breath sounds clear to auscultation (-) rhonchi, wheezes and rales Dental Assessment: Misc Assessment: IV access: Peripheral line Last Filed Perioperative Cognitive Screening None Anesthesia Plan: ASA 4 epidural, with a(n) intravenous induction Ms. Porras is a 25 year old, 95 kg (BMI 30) patient presenting for worsening dyspnea on exertion at 32 weeks gestation. She was having more dyspnea while packing her bags at home, but is still able to walk up stairs without significantly worse shortness of breath over the last week. She was admitted due to worsening EF (35%) on her last TTE. She has a history of NICM with her last with acute decompensation and section with recovery in the cardiovascular intensive care unit. She received a slowly loaded chloroprocaine epidural with a dopamine infusion shamar PICC for inotropic support. Non-cardiac related anesthesia considerations: She has a vasovagal response to IVs in her hands andtends to vomit with needles. She had significant pain with epidural placement her last time and didnot feel like the numbing medicine was effective during placement. The tentative plan is to admit her for steroid administration, further optimization and tentative delivery if no improvement in her status after steroid course by in CVCC vs. repeat section in the main OR. Per cardiology, she will undergo a trial of digoxin and further optimization. She is not currently hypertensive or tachycardic. She is SR on ECG. We discussed monitoring in the BP and the rationale for why she may need to be transferred to the CVCC nearer to delivery or post-. We discussed the possibility of central access vs. PICC line,PAC, arterial line and early epidural. She is requesting the arterial line be placed further up herarm (if needed) due to her aversion to needles in her hands. RECOMMENDATIONS: -Telemetry +/- remote pulse oximetry while on BP and adjusting cardiac medications. -Early epidural if is planned with later stages of labor in [facility]. -If is planned we would prefer the main OR with recovery in [facility]. -Consider PAC vs. JULEE for volume management in the event of obstetric hemorrhage. -Consider avoiding rapid boluses of high dose oxytocin if ejection fraction worsens. -These plans are subject to change with patient's improvement or worsening of symptoms and cardiac function and/or attending preference. 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 The left ventricle is severely dilated. [...] There is no hemodynamically significant valve disease. Medications Prior to Admission: magnesium 250 mg Tablet, Take by mouth., Disp: , Rfl: , 01/16/2021 at Unknown time iron,carb/vit C/vit B12/folic (IRON 100 PLUS ORAL), Take by mouth., Disp: , Rfl: , 01/16/2021 at Unknown time docusate sodium (Colace) 100 mg Capsule, Take 100 mg by mouth 2 times daily., Disp: , Rfl: , 01/16/2021 at Unknown time metoprolol succinate XL (Toprol-XL) 25 mg Tablet Sustained Release 24 hr, Take 1 tablet by mouth daily., Disp: 90 tablet, Rfl: 2, 01/15/2021 at 1900 vit 75/iron/folic/om3 ([id number] FUM-FOLIC AC-OM3 ORAL), Take by mouth., Disp: , Rfl: , 01/16/2021 at Unknown time digoxin (Lanoxin) 125 mcg (0.125 mg) Tablet, Take 2 tablets by mouth daily., Disp: 90 tablet, Rfl: 3, Unknown at Unknown time Data ReviewCBC: Lab Results Component Value Date WBC 13.3 (H) 01/16/2021 RBC 4.20 01/16/2021 BMP: Lab Results Component Value Date GLUCOSE 71 05/31/2018 CO2 26 05/31/2018 BUN 10 05/31/2018 CREATININE 0.84 05/31/2018 CALCIUM 9.4 05/31/2018 Coagulation: Cardiac markers: Lab Results Component Value Date TROPONINT <0.03 08/17/2014 Summary and Delivery Plan: Risk of mortality: CARPREG II score = 2 (approximately 10% risk mortality). If NYHA class increasesto III or IV, her CARPREG II score would be significantly higher. Planned mode of delivery: Section Anesthesia Plan: Early neuraxial for before Christianson balloon, and slow epidural loading Fluid and loading conditions: Hemodynamic Management: Avoid volume overload, Avoid tachycardia, Avoid bradycardia and Avoid high afterload Monitoring: Telemetry, Remote pulse oximetry and Arterial line Adaptations for special situations: in main OR with CVCC recovery vs. CVCC . Hemorrhage: Careful fluid loading, consider swan to measure PAD pressure for volume management. Medications to avoid: Peripartum Medications: Rapid administration of oxytocin bolus, Terbutaline and Nitrous Oxide Delivery planning: Date of induction/admission 01/16/21 admission. Estimated Due Date: 03/08/21 Planned Delivery Location Main OR with recovery in [facility] Reservation/Listing Confirmed Main OR Monitoring Telemetry, Remote pulse oximetry and Arterial line Lines Arterial line and Central line (Cordis) Fluid Strict I&O Yes Christianson Yes Consults that have been completed at the time of this note: Cardioobstetric Consult List: Obstetric Anesthesia and Cardiac Anesthesia Consults outstanding: Cardioobstetric Consult List: Cardiology, Obstetric Anesthesia and Cardiac Anesthesia Bedboard Planning: Teams notified of birthing plan and admission bed holds: BP RN Rehabilitation Counselor and Charge and CVCC Team/ICU Team Critical members for huddles prior to delivery: Cardiology Yes Critical Care Yes Anesthesia Yes MFM Yes OBDOC Yes Chief resident Yes BP RN leadership (charge nurse) Yes Critical care nursing leadership Yes The patient was informed of the risks, benefits and alternatives of anesthesia. These risks included, but were not limited to, post-operative nausea and/or vomiting, pain, sore throat, dental/lip injury, and other rare but serious complications such as cardiac instability/arrest, neurologic event, awareness, severe allergic reactions, position-related nerve injuries, and need blood transfusions. All questions sought and answered. Addendum: Plan for in main OR with arterial line, PICC in situ and post-operative recovery in [facility] overnight. Region - Other Informed Consent: Anesthetic plan and risks discussed with patient. Use of blood products discussed with patient who consented to blood products. Plan discussed with attending. Anesthesia Screening documented in this encounter Miscellaneous Notes * Addendum Note - Kayleigh Lockwood MD - 01/23/2021 6:10 PM EST Addendum created 01/23/211809 by Kayleigh Lockwood MD Clinical Note Signed, LDA properties accepted * Addendum Note - Kayleigh Lockwood MD - 01/23/2021 9:22 AM EST Addendum created 01/23/21921 by Kayleigh Lockwood MD Clinical Note Signed * Addendum Note - Alyx Greene MD - 01/22/2021 5:23 PM EST Addendum created 01/22/211722 by Alyx Greene MD Intraprocedure Event edited, Intraprocedure Staff edited documented in this encounter Plan of Treatment Upcoming Encounters Date Type Department Care Team (Late st Contact Info) Description 01/27/2024 1:00 PM EST Appointment Non-Invasive Card[facility] [place] [address] Anton Márquez MD [facility] [place] [address] 01/27/2024 3:00 PM EST Office Visit Cardiology at [address] [phone] Anton Márquez MD [facility] [place] [address] documented as of this encounter Procedures Procedure Name Priority Date/Time Associated Diagnosis Comments ANE NEURAXIAL APS USE Routine 01/22/2021 2:25 PM EST documented in this encounter Results * Neuraxial Block (01/22/2021 2:25 PM EST) Narrative Alyx Greene MD - 01/22/2021 2:25 PM EST Alyx Greene MD ? 01/22/2021 ??5:10 PM Procedure: ?? Neuraxial Block Primary Anesthetic Type: Epidural The patient was greeted. The sedation plan, its benefits, risks and alternatives were discussed with the patient. ??The patient has consented to the procedure. ??The medical history and chart were reviewed. ??The timeout was performed. Start time: 01/22/2021 2:05 PM End time: 01/22/2021 2:25 PM Patient Location: Operating Room Patient Prep Position: Right lateral decubitus Prep: Hand Hygiene, Hat, Mask, Sterile Gloves, Chlorhexidine and Patient Draped Injection technique: continuous Skin Anesthetic Lidocaine 1% ??5 ml Procedure Technique Level of needle insertion: L2-3 Needle approach: midline Needle Type: Tuohy Gauge: 17 Needle length: 3.5 in Needle insertion depth when AKOSUA achieved: 9 cm Technique for Loss of Resistance: AKOSUA saline A 21 guage epidural catheter introduced into the epidural space. Catheter at skin depth: 16 cm Dressing/Secured with: Chlorhexidine Tegaderm and Tegaderm Number of attempts: 2 Events/Notes Events: ??unexpected parasthesia, parethesias with first attempt at likely L3-4, re-attempted at L2-3 and successful without further symptoms Additional Notes: ??Patient felt light-headed and pre-syncopal during sitting epidural preparations. We put her in left lateral decubitus to recover. Attempted again to prepare for epidural and again, the patient had anxiety and pre-syncopal symptoms. Third attempt was lateral and we were able to proceed with local injection in the lateral position. ?? Patient tolerated well and remained in communication throughout. First attempt with false loss and paresthesia at L3-4. Second attempt at L2-3 with AKOSUA at 9cm. Positive dural puncture with spinal needle for confirmation. Catheter threaded uneventfully. Aspiration negative. Resident/STONE SAWYER: ? Giles Roberts MD Second Resident/STONE SAWYER: SRNA: ? Fellow: ? Attending Physician: ? Alyx Greene MD ~~~~~~~~~~~~~~~~~~~~~~~~~~~~~~~~~~~~~~~~~~~~~~~~~~~~~~~~~~~~ Alyx Greene MD [facility]ER [facility] documented in this encounter Visit Diagnoses Not on filedocumented in this encounter Administered Medications Inactive Administered Medications - up to 3 most recent administrations Medication Order MAR Action Action Date Dose Rate Site acetaminophen (Ofirmev) (1000 mg/100 mL) infusion Intravenous, Administer over 15 Minutes, PRN, Starting on Wed01/22/21 at 1606, Until Wed01/22/21 at 1722, Anesthesia Intra-op, Routine Given 01/22/2021 4:06 PM EST 1,000 mg dexmedetomidine (Precedex) (4 mcg/mL) bolus injection (Anesthsia) Intravenous, PRN, Starting on Wed01/22/21 at 1340, Until Wed01/22/21 at 1722, Anesthesia Intra-op, Routine Given 01/22/2021 1:52 PM EST 4 mcg Given 01/22/2021 1:40 PM EST 8 mcg EPINEPHrine (Adrenalin) (8 mcg/mL) in dextrose 5% 250 mL infusion Intravenous, CONTINUOUS PRN, Starting on Wed01/22/21 at 1436, Until Wed01/22/21 at 1722, Anesthesia Intra-op New Bag 01/22/2021 2:36 PM EST 1 mcg/min 7.5 m L/hr fentaNYL (pf) (50 mcg/mL) multi-dose injection Epidural, PRN, Starting on Wed01/22/21 at 1458, Until Wed01/22/21 at 1722, Anesthesia Intra-op, Routine Given 01/22/2021 2:58 PM EST 100 mcg lactated ringers infusion Intravenous, CONTINUOUS PRN, Starting on Wed01/22/21 at 1334, Until Wed01/22/21 at 1722, Anesthesia Intra-op New Bag 01/22/2021 1:34 PM EST lidocaine (pf) (Xylocaine) (20 mg/mL) 2% injection Infiltration, PRN, Starting on Wed01/22/21 at 1434, Until Wed01/22/21 at 1722, Anesthesia Intra-op, Routine Given 01/22/2021 3:42 PM EST 2 mLs Given 01/22/2021 2:44 PM EST 5 mLs Given 01/22/2021 2:41 PM EST 5 mLs metoclopramide (Reglan) (5 mg/mL) injection Intravenous, PRN, Starting on Wed01/22/21 at 1518, Until Wed01/22/21 at 1722, Anesthesia Intra-op, Routine Given 01/22/2021 3:28 PM EST 2 mg Given 01/22/2021 3:18 PM EST 2 mg Given 01/22/2021 3:04 PM EST 2 mg morphine (PF) (0.5 mg/mL) injection Epidural, PRN, Starting on Wed01/22/21 at 1542, Until Wed01/22/21 at 1722, Anesthesia Intra-op, Routine Given 01/22/2021 3:42 PM EST 2 mg NORepinephrine (Levophed) (16 mcg/mL) in dextrose 5% 250 mL infusion Intravenous, CONTINUOUS PRN, Starting on Wed01/22/21 at 1451, Until Wed01/22/21 at 1722, Anesthesia Intra-op, Routine New Bag 01/22/2021 2:51 PM EST 2 mcg/min 7.5 mL/hr NORepinephrine (Levophed) injection Intravenous, PRN, Starting on Wed01/22/21 at 1451, Until Wed01/22/21 at 1722, Anesthesia Intra-op, Routine Given 01/22/2021 2:51 PM EST 8 mcg oxytocin (Pitocin) (0.06 units/mL) in sodium chloride 0.9% 500 mL infusion 30 Units (500 mL), Intravenous, Administer over 1 Hours, ONCE PRN, 1 dose, Starting on Angelita 01/16/21 at 1552, Until Wed01/22/21 at 1525, At the discretion of the provider following delivery., ., Routine Rate/Dose Change 01/22/2021 3:40 PM EST 500 mL/hr 500 mL/hr Rate/Dose Change 01/22/2021 3:28 PM EST 750 mL/hr 750 mL/ hr New Bag 01/22/2021 3:25 PM EST 500 mL/hr 500 mL/hr sodium chloride 0.9% infusion Intravenous, CONTINUOUS PRN, Starting on Wed01/22/21 at 1335, Until Wed01/22/21 at 1722, Anesthesia Intra-op New Bag 01/22/2021 1:35 PM EST vasopressin (Vasostrict) injection Intravenous, PRN, Starting on Wed01/22/21 at 1449, Until Wed01/22/21 at 1722, Anesthesia Intra-op, Routine Given 01/22/2021 3:18 PM EST 0.5 Units Given 01/22/2021 2:49 PM EST 1 Units documented in this encounter Care Teams Strategic Planning Director Relationship Specialty Start Date End Date Pietro Son PA [address] [place] [address] PCP - General Internal Medicine 09/27/20 documented as of this encounter
--- OUTSIDE RECORDS SUMMARY | 2024-01-03 13:11 | XMS_ITS | Encounter Summary ---
[place] [address] Care Team Providers Care Rag Room Supervisor Name Role Phone Pietro Son Primary Care Provider [phone] Encounter Details Date Type Department Care Team (Late st Contact Info) Description 01/16/2021 Telephone Obstetrics [place] [phone] Rustam Hoffman MD [facility] DR OBSTETRICS [place] [address] Social History Tobacco Use Types Packs/Day Years [...] encounter Miscellaneous Notes * Telephone Encounter - Rustam Hoffman MD - 01/16/2021 12:19 PM EDT Attempted to reach patient to discuss results of recent echo and to invite her to the [facility] for further evaluation and management, including possible admission. Unfortunately, the call went to voicemail and the mailbox was full so I couldn't leave a message. Our [facility] nurse will continue to try to reach out to her. MD Jacquelyn documented in this encounter Plan of Treatment Upcoming Encounters Date Type Department Care Team (Late st Contact Info) Description 01/27/2024 1:00 PM EST Appointment Non-[place] [address] Anton Márquez MD [facility] [place] [address] 01/27/2024 3:00 PM EST Office Visit Cardiology at [address] [phone] Anton Márquez MD [facility] [place] [address] documented as of this encounter Visit Diagnoses Not on filedocumented in this encounter Care Teams Rag Room Supervisor Relationship Specialty Start Date End Date Pietro Son PA [address] [place] [address] PCP - General Internal Medicine 09/27/20 documented as of this encounter
--- OUTSIDE RECORDS SUMMARY | 2024-01-03 13:11 | XMS_ITS | Encounter Summary ---
[place] [address] Care Team Providers Care Director Skills Name Role Phone Pietro Son Primary Care Provider [phone] Encounter Details Date Type Department Care Team (Late st Contact Info) Description 01/16/2021 Telephone Cardiology at [address] [phone] Ariela Solo, RN Social History [...] Telephone Encounter - Ariela Solo, RN - 01/16/2021 12:32 PM EDT RTC to Ms Dixon, no answer, and unable to leave Voice Mail, to convey message from dr Márquez, and her FLASHER ADJUSTER team regarding treating her for Cardiomyopathy, as soon as possible. Called her alternate phone number, and left message, for [phone], and called her emergency contact telephone number, and left VM message for her to contact, either Dr Márquez's office or her FLASHER ADJUSTER team as soon as possible. Ariela Solo (Jodie), RN, BSN [facility] documented in this encounter Plan of Treatment Upcoming Encounters Date Type Department Care Team (Late st Contact Info) Description 01/27/2024 1:00 PM EST Appointment Non-[place] [address] Anton Márquez MD [facility] [place] [address] 01/27/2024 3:00 PM EST Office Visit Cardiology at [address] [phone] Anton Márquez MD [facility] [place] [address] documented as of this encounter Visit Diagnoses Not on filedocumented in this encounter Care Teams Director Skills Relationship Specialty Start Date End Date Pietro Son PA [address] [place] [address] PCP - General Internal Medicine 09/27/20 documented as of this encounter
--- OUTSIDE RECORDS SUMMARY | 2024-01-03 13:11 | XMS_ITS | Encounter Summary ---
[place] [address] Care Team Providers Care Hospice Admitting Clerk Name Role Phone Pietro Son Primary Care Provider [phone] Encounter Details Date Type Department Care Team (Latest Contact Info) Description 01/27/2021 Encounter Social History Tobacco Use Types Packs/Day [...] this encounter Miscellaneous Notes * Note - Ariela Bermudez RN - 01/27/2021 12:20 PM EST This note was copied from a baby's chart. ASSESSMENT INPATIENT Encounter Date/Time: 01/27/2021 / 1220 Baby's name: Baby Girl Cihquita Lewis : 01/22/2020 Time of : 3:24 PM Mode of Delivery: Lower Segment Transverse Gestational Age: Gestational Age: 33w4d Baby age: 5 days Birthweight: 4 lb 9.4 oz (2080 g) Weights since : Patient Vitals for the past 168 hrs: Weight 01/27/21 0200 (!) 1.85 kg (4 lb 1.3 oz) 01/26/21 0155 (!) 1.86 kg (4 lb 1.6 oz) 01/25/21 0200 (!) 1.89 kg (4 lb 2.7 oz) 01/24/21 0500 (!) 1.97 kg (4 lb 5.5 oz) 01/22/21 1524 (!) 2.08 kg (4 lb 9.4 oz) Overall weight loss: -11% MATERNAL INFO: Mary Porras [id number] 1995 G 4 P 2 Significant History: Previous experience: None--she was 18 when she had her first baby and did not breastfeed Breast Changes During : Yes Breast Exam : deferred Milk Production: Oversupply Pumping 80 ml per pumping Firm Engorged Nipple Exam : deferred, she has been sized down to a 21mm flange Nipple Care Management: Wall oil or nipple butter to base of nipple prior to pumping OBSERVATION: INFANT ASSESSMENT: Asleep in Isolette - now 34 2/7 weeks Oral Motor Examination/Function: Mouth: Normal Jaw: Normal Lips: Normal Discussed the concept of breast visits where she can hold the baby STS and allow the baby to nuzzle, lick drops, possibly latch briefly. Would not expect the baby to take much milk at a time at this early age. She has not tried this yet. PATIENT EDUCATION AND RECOMMENDATIONS: Pump at least 8-10 times per 24 hours and record in pumping log provided Breast massage and hand expression before and during pumping Brief heat prior to pumping and ice packs after pumping X 48 hours Wall oil to nipples prior to pumping - for engorgement Frequent and prolonged maternal- skin to skin contact Close support and follow up 20 minutes were spent with this family, providing assessment, assistance, education, and support. Mother voices understanding of education and recommendations. Ariela Bermudez RN, IBCLC [facility] Services documented in this encounter Plan of Treatment Upcoming Encounters Date Type Department Care Team (Late st Contact Info) Description 01/27/2024 1:00 PM EST Appointment Non-[place] [phone] Anton Márquez MD [facility] [place] [address] 01/27/2024 3:00 PM EST Office Visit Cardiology at [address] [phone] Anton Márquez MD [facility] [place] [address] documented as of this encounter Visit Diagnoses Not on filedocumented in this encounter Care Teams Hospice Admitting Clerk Relationship Specialty Start Date End Date Pietro Son PA [address] [place] [address] PCP - General Internal Medicine 09/27/20 documented as of this encounter
--- OUTSIDE RECORDS SUMMARY | 2024-01-03 13:11 | XMS_ITS | Encounter Summary ---
Author Organization [place] [address] Care Team Providers Care Documentation Spec Name Role Phone Pietro Son Primary Care Provider [phone] Reason for Referral * Diagnostic Test (Routine) - Closed Specialty Diagnoses / Procedures Referred By Contcarla t Referred To Contact Cardiology Diagnoses Peripartum cardiomyopathy Procedures Echocardiogram Transthoracic([facility] or REPLACED BY [facility]) Anton Márquez MD [facility] [place] [address] [facility] [place] [address] Referral ID Status Reason Start Date Expiration Date V isits Requested Visits Authorized [id number] Closed Specialty Service Requested 01/28/2021 01/28/2022 1 1 Encounter Details Date Type Department Care Team ([facility] st Contact Info) Description 01/28/2021 11:20 AM EST Office Visit Cardiology at [address] [phone] Anton Márquez MD [facility] [place] [address] Peripartum cardiomyopathy; Chronic systolic heart failure; Other cardiomyopathy Social [...] Sign Reading Time Taken Comments Blood Pressure 113/70 01/28/2021 11:24 AM EST Pulse 69 01/28/2021 11:24 AM EST Temperature - - Respiratory Rate - - Oxygen Saturation 98% 01/28/2021 11:24 AM EST Inhaled Oxygen Concentration - - Weight 94.3 kg (208 lb) 01/28/2021 11:24 AM EST Height 177.8 cm (5' 10) 01/28/2021 11:24 AM EST Body Mass Index 29.84 01/28/2021 11:24 AM EST documented in this encounter Progress Notes * Anton Márquez MD - 01/28/2021 11:20 AM EST Images from the original note [...] , recurrent LV dysfunction in thecurrent . #Delivery: -Admitted for induction of labor from cardio-OB clinic for maternal medical condition (worsening cardiomyopathy with EF 35%). delivery was indicated for nonreassuring status. -Admitted for IOL due to progressive LV dysfunction. delivery for maternal indications (remote from term and worsening maternal status, low likelihood of successful IOL) Pre- weight 160lb. Pre- LVEF, last 04/19/2017 59%. LVEF had droppedto 45%. Euvolemic. Started on metoprolol 25mg XL daily. Her LV function improved mildly to 54% on metoprolol XL monotherapy. ROHINI late February.Mary had written to me about [...] and multidisciplinary discussion was had with our [facility] colleagues. She underwent successful delivery to [...] and [facility] and [facility]- feeding. Her weight on admission was 216 pounds and BNP 77. Weight on discharge 206lb. ProBNP 125. She is taking metoprolol 25mg, enalapril 5mg and spironolactone 12.5mg daily. Today she is 3 days post discharge and doing well. Weight is 206lbs. No orthopnea, PND, LE edema. No chest pain. No palpitations, presyncope, or syncope. PROBLEM LIST: Patient Active Problem List Diagnosis ??? Cardiomyopathy, [...] ??? High risk teen With known cardiomyopathy MEDICATIONS: Current Outpatient Medications Medication Sig Dispense [...] needed for Pain. 30 tablet 5 ??? docusate sodium (Colace) 100 mg Capsule Take 1 capsule by mouth 2 times daily for 40 days. 20 capsule 3 ??? polyethylene glycoL (Miralax) 17 gram/dose Powder Take 17 g by mouth daily. 255 g 3 ??? sertraline (Zoloft) 50 mg Tablet Take 0.5 tablets by mouth daily. 90 tablet 3 ??? lidocaine (Lidoderm) 5% Adhesive Patch, Medicated Apply 1 patch onto the skin daily. (leave on for 12 hours and remove for 12 hours) 30 patch 0 ??? magnesium 250 mg Tablet Take by mouth. ??? iron,carb/vit C/vit B12/folic (IRON 100 PLUS ORAL) Take by mouth. ??? vit 75/iron/folic/om3 ([id number] FUM-FOLIC AC-OM3 ORAL) Take by mouth. No [...] Office Visit [place] 08/02/2020 in Cardiology at [facility] Weight 72.8 kg (160 lb 9.6 oz) [...] C. Euvolemic and well compensated on physical exam -Continue metoprolol 25 mg XL daily, enalapril 5mg daily -BMP and proBNP today, increase spironolactone to 25mg daily if K and Cr are stable with another repeat BMP. -Asymptomatic, euvolemic, no need for diuretic. Instructed to call if she develops new symptoms. Contact information in [facility] is outdated. Here are the best contact numbers: Best number to reach Mary [phone] (cell) ok to leave messages Best number to reach Anderson Phelan [phone]( boyfriendcell) ok to leave messages Soraya Best [phone]. RTC 1-2 months with echo on the day Anton Márquez MD 01/28/2021 5:43 PM documented in this encounter Plan of Treatment Upcoming Encounters Date Type Department Care Team (Late st Contact Info) Description 01/27/2024 1:00 PM EST Appointment Non-Invasive [place] [phone] Anton Márquez MD [facility] [place] [address] 01/27/2024 3:00 PM EST Office Visit Cardiology at [address] [phone] Anton Márquez MD [facility] [place] [address] Scheduled Orders Name Type Priority Associated Diagnoses Orde r Schedule Basic Metabolic Panel (non-fasting) Lab Routine Peripartum cardiomyopathy Expected: 01/28/2021, Expires: 01/28/2022 pro-Brain Natriuretic Peptide Lab Routine Peripartum cardiomyopathy Expected: 02/04/2021, Expires: 01/28/2022 documented as of this encounter Procedures Procedure Name Priority Date/Time Associated Diagnosis Comments EKG 12-LEAD Routine 01/28/2021 11:32 AM EST Chronic systolic heart failure Other cardiomyopathy documented in this encounter Results * ECHO LMTD W CONTRAST W LMTD SPEC DOPP COLOR DOPP (03/10/2021 9:56 AM EST) EF 36 HEARTLAB SYSTEM Anatomical Region Laterality Modality Other 03/10/2021 Narrative 03/10/2021 10:52 AM EST Procedure: ?Transthoracic Echocardiogram Patient: ?JORDON Polo ? (Age): 1995(25y) Med Rec#: ? [id number] ?Sex: ?F ? Site Loc: ? [facility] ?Ht / Wt: ??177(cm)/91(kg) Pt. Loc: ?Echo Lab ?BSA: ?2.08 Study Date: ?? 03/10/2021 ?Pt. Type: Outpatient Tape: ? Referring: Anton Márquez ([id number]) Reading: Adán Beebe ??([id number]) Sample Checker: Stephanie Flowers Interpreting Fellow: Fritz Castanon ([id number]) Diagnosis: *Peripartum cardiomyopathy (O90.3) BP: ? 112/64 [...] Vmax ?0.75 ? m/sec ? MV deceleration ibpf764.21 ? msec ? MV A-wave Vmax ?0.4 [...] 03/10/2021 10:52:11 Images reviewed and interpretation verified [facility] Cardiac Ultrasound Laboratory Procedure Note Adán Beebe MD - 03/10/2021 Procedure: Transthoracic Echocardiogram Patient: JORDON Polo (Age): 1995(25y) Med Rec#: [id number] Sex: F Site Loc: [facility] Ht / Wt: 177(cm)/91(kg) Pt. Loc: Echo Lab BSA: 2.08 Study Date: 03/10/2021 Pt. Type: Outpatient Tape: Referring: Anton Márquez ([id number]) Reading: Adán Bebee ([id number]) Sample Checker: Stephanie Flowers Interpreting Fellow: Fritz Castanon ([id number]) Diagnosis: *Peripartum cardiomyopathy (O90.3) BP: 112/64 SUMMARY: [...] MV E-wave Vmax 0.75 m/sec MV deceleration [id number] msec MV A-wave Vmax 0.4 m/sec MV [...] 03/10/2021 10:52:11 Images reviewed and interpretation verified [facility] Cardiac Ultrasound Laboratory Anton Márquez MD ECHO ORDERABLES * EKG 12 Lead (01/28/2021 11:32 AM EST) Ventricular rate 68 BPM MUSE SYSTEM Atrial Rate 68 BPM MUSE SYSTEM P-R Interval 136 ms MUSE SYSTEM QRS Duration 84 ms MUSE SYSTEM Q-T Interval 400 ms MUSE SYSTEM QTC Calculated (Bezet) 425 ms MUSE SYSTEM Calculated P [place] 6 degrees MUSE SYSTEM Calculated R [place] 63 degrees MUSE SYSTEM Calculated T [place] 48 degrees MUSE SYSTEM INTERPRETATION Normal sinus [...] cardiomyopathy, unspecified as to episode of care Chronic systolic heart failure Other cardiomyopathy Peripartum cardiomyopathy Peripartum cardiomyopathy, unspecified as to episode of care documented in this encounter Care Teams Documentation Spec Relationship Specialty Start Date End Date Pietro Son PA [address] [place] [address] PCP - General Internal Medicine 09/27/20 documented as of this encounter
--- OUTSIDE RECORDS SUMMARY | 2024-01-03 13:11 | XMS_ITS | Encounter Summary ---
[place] [address] Care Team Providers Care Ice Cream Freezer Helper Name Role Phone Pietro Son Primary Care Provider [phone] Encounter Details Date Type Department Care Team (Late st Contact Info) Description 01/16/2021 Telephone Cardiology at [address] [phone] Ariela Solo RN Social History Tobacco Use Types Packs/Day [...] Telephone Encounter - Ariela Solo RN - 01/16/2021 4:09 PM EDT Patient admitted, at current time. * Telephone Encounter - Ariela Solo RN - 01/16/2021 1:31 PM EDT RTC to Mary Porras, regarding [facility] team trying to reach her to initiate immediate treatment forCHF, during her . Called alternate telephone number and left message for her. Reviewed chart and patient is responding to [facility] message. documented in this encounter Plan of Treatment Upcoming Encounters Date Type Department Care Team (Late st Contact Info) Description 01/27/2024 1:00 PM EST Appointment Non-[place] [address] Anton Márquez MD [facility] [place] [address] 01/27/2024 3:00 PM EST Office Visit Cardiology at [address] [phone] Anton Márquez MD [facility] [place] [address] documented as of this encounter Visit Diagnoses Not on filedocumented in this encounter Care Teams Ice Cream Freezer Helper Relationship Specialty Start Date End Date Pietro Son PA [address] [place] [address] PCP - General Internal Medicine 09/27/20 documented as of this encounter
--- OUTSIDE RECORDS SUMMARY | 2024-01-03 13:12 | XMS_ITS | Encounter Summary ---
[place] [address] Care Team Providers Care Embossing Press Operator Name Role Phone Rustam Coppola MD Primary Care Provider [phone] Encounter Details Date Type Department Care Team (Late Contact Info) Description 02/17/2018 Telephone Cardiology at [address] [phone] Nancy Baker Social History Tobacco Use Types Packs/Day Years Used Date Smoking Tobacco: Never Smokeless Tobacco: Never Alcohol Use Standard Drinks/Week Comments Not Asked 0 (1 standard drink = 0.6 oz pur e alcohol) Sex and Gender Information Value Date Recorded Sex Assigned at Female 11/26/2021 10:32 AM EDT Gender Identity Choose not to disclose 10:32 AM EDT Sexual Orientation Straight 11/26/2021 10 :32 AM EDT documented as of this encounter Miscellaneous Notes * Telephone Encounter - Nancy Baker - 02/17/2018 3:24 PM EST Received a call from [phone], which was listed as pt's number. It appears this number no longer belongs to her as the person who called said she was not Mary and that she would like the number to be taken out of our contact list for Mary. This number has been taken out of her chart. If pt calls again, please ask her for updated phone number. Will send letter requesting for her to call us. documented in this encounter Plan of Treatment Upcoming Encounters Date Type Department Care Team (Late st Contact Info) Description 01/27/2024 1:00 PM EST Appointment Non-Invasive [place] [phone] Anton Márquez MD [facility] [place] [address] 01/27/2024 3:00 PM EST Office Visit Cardiology at [address] [phone] Anton Márquez MD [facility] [place] [address] documented as of this encounter Visit Diagnoses Not on filedocumented in this encounter Care Teams Embossing Press Operator Relationship Specialty Start Date End Date Rustam Coppola MD [address] [place] [address] PCP - General 06/30/13 05/30/18 documented as of this encounter
--- OUTSIDE RECORDS SUMMARY | 2024-01-03 13:12 | XMS_ITS | Encounter Summary ---
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 Procedures MyChart Weight Flowsheet Anton Márquez MD [facility] [place] [address] Referral ID Status Reason Start Date Expiration Date V isits Requested Visits Authorized [id number] Closed Consult, Test & Treat 09/27/2020 09/27/2021 1 1 * Diagnostic Test (Routine) - Closed Specialty Diagnoses / Procedures Referred By Contac t Referred To Contact Cardiology Diagnoses Other cardiomyopathy Procedures Echocardiogram Transthoracic([facility] or [facility]) Anton Márquez MD [facility] [place] [address] [facility] [place] [address] Referral ID Status Reason Start Date Expiration Date V isits Requested Visits Authorized [id number] Closed Specialty Service Requested 09/27/2020 09/27/2021 1 1 Encounter Details Date Type Department Care Team (Late st Contact Info) Description 09/27/2020 11:00 AM EDT Office Visit Cardiology at [address] [phone] Anton Máruqez MD [facility] [place] [address] Sinus tachycardia; 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; Other cardiomyopathy Social History Tobacco Use Types Packs/Day Years Used Date Smoking Tobacco: Former Smokeless Tobacco: Never Comments:smokes weed Alcohol Use Standard Drinks/Week Comments Not Asked [...] Sign Reading Time Taken Comments Blood Pressure 103/61 09/27/2020 10:47 AM EDT Pulse 81 09/27/2020 10:47 AM EDT Temperature - - Respiratory Rate - - Oxygen Saturation 100% 09/27/2020 10:47 AM EDT Inhaled Oxygen Concentration - - Weight 77.1 kg (170 lb) 09/27/2020 10:47 AM EDT Height 177.8 cm (5' 10) 09/27/2020 10:47 AM EDT Body Mass Index 24.39 09/27/2020 10:47 AM EDT documented in this encounter Patient Instructions * Patient Instructions* Anton Márquez MD - 09/27/2020 11:00 AM EDT -Our clinic can be reached at [phone]. Call us anytime with questions, problems, or importantly new or worsening symptoms. documented in this encounter Progress Notes * Anton Márquez MD - 09/27/2020 11:00 AM EDT Images from the original note [...] , recurrent LV dysfunction in thecurrent . #High risk #Lost to follow-up: There have been intervals were Mary has been lost to care or has reduced hermedical therapy I met Mary when she was 8 weeks in her second . She was accompanied by her boyfriend Anderson. We had a long discussion about the risks, benefits, and alternatives of continuing her and Mary had a strong preference to continue this despite the risk of worsening LV function, arrhythmia, decompensated heart failure, and . It was difficult to schedule her echocardiogram, requiring reaching out to family. She is now returning for a checkup at 16 weeks and is accompanied by her boyfriend's mother. She has not had interim hospitalization for cardiovascular complaints or heart failure. Now 16 weeks . Up to 170lbs from 160.She denies active symptoms of CAMPUZANO, edema, weight gain, orthopnea, PND. She has had no chest pain, syncope or presyncope, or palpitations. She is no longer working and has been physically active hiking without any cardiovascular symptoms. Echocardiogram reviewed from 08/2020 LVEF 45%. GLS -13.8% PROBLEM LIST: Patient Active Problem List Diagnosis ??? 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 Chronic systolic heart failure ??? Supervision of high risk in first trimester ??? Sinus tachycardia ??? Cardiomyopathy 1. [...] Outpatient Medications Medication Sig Dispense Refill ??? metoprolol succinate XL (Toprol-XL) 25 mg Tablet Sustained Release 24 hr Take 1 tablet by mouthdaily. 90 tablet 2 ??? docusate sodium (Colace) 50 mg Capsule Take by mouth. ??? ondansetron (Zofran) 4 mg Tablet ??? vit 75/iron/folic/om3 ([id number] FUM-FOLIC AC-OM3 ORAL) Take by mouth. ??? metoclopramide (Reglan) 10 mg Tablet No current facility-administered medications for this visit. Family history: Family History Problem Relation Age of Onset ??? Coronary Artery Disease Unknown ??? Cancer Unknown ??? Type 2 Diabetes Unknown Social history: Social History Tobacco Use ??? Smoking status: Former Smoker ??? Smokeless tobacco: Never Used ??? Tobacco comment: smokes weed Vaping Use ??? Vaping Use: Never used Substance Use Topics ??? Alcohol use: Not on file ??? 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 2 interim terminated pregnancies. Now again without recent medical therapy or assessment of ventricular function. #High risk Chronic systolic heart failure. ACC/AHA stage C. NYHA functional class I. Euvolemic and well compensated on physical exam -08/2020 LVEF 45%. GLS -13.8% -Continue metoprolol 25 mg XL daily -Repeat TTE prior to next visit - I have emphasized the need for close and frequent followup and delivery at [facility]. I have confirmedthat Mary has my DH and shown her how to message me via the application. I have sent her a weight flowsheet to use and given her instructions to call me if she gains more than 2 to 3 pounds in a day or 5 pounds in a week. ?? Contact information in [employer] is outdated. Here are the best contact numbers: Best number to reach Mary [phone] (cell) ok to leave messages Best number to reach Anderson Phelan [phone]( boyfriendcell) ok to leave messages Soraya Best [phone]. RTC 3 months with echo on the day Anton Márquez MD 09/27/2020 11:15 AM I spent at least 40 minutes of time on this patient encounter on the date of service performing activities related to: ?preparing to see the patient (eg, review of tests) ?obtaining and/or reviewing separately obtained history ?performing a medically appropriate examination and/or evaluation ?counseling and educating the patient/family/caregiver ?ordering medications, tests, or procedures ?referring and communicating with other health manager intensive care (when not separately reported) ?documenting clinical information in the electronic or other health record ?independently interpreting results (not separately reported) and communicating results to the patient/family/caregiver ?care coordination (not separately reported) Thank you for the opportunity to participate in this patient's cardiovascular care. All questions were answered and I look forward to the next visit. documented in this encounter Plan of Treatment Upcoming Encounters Date Type Department Care Team (Late st Contact Info) Description 01/27/2024 1:00 PM EST Appointment Non-[place] [address] Anton Márquez MD [facility] [place] [address] 01/27/2024 3:00 PM EST Office Visit Cardiology at [address] [phone] Antno Márquez MD [facility] [place] [address] Scheduled Orders Name Type Priority Associated Diagnoses Orde r Schedule MyChart Weight Flowsheet Procedures Routine 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 (Age): 1995(25y) Med Rec#: ? [id number] ?Sex: ?F ? Site Loc: ? DH ?Ht / Wt: ??178(cm)/86.18(k Pt. Loc: ?Echo Lab ?BSA: ?2.04 Study Date: ?? 12/10/2020 ?Pt. Type: Outpatient Tape: ? Referring: HAYLEY Reading: Maicol Hart ([id number]) Supervisor/Port Director: Bushra Tompkins RDCS, FASE Diagnosis: *Cardiomyopathy, unspecified (I42.9) Rhythm: ? Sinus BP: ? 108/50 HR: ? 103 SUMMARY: 1. The left ventricular chamber size is normal. ??Left ventricular wall thickness is normal. ??The quantitative left ventricular ejection fraction by biplane Higginbotham's method is 54%. ??GLS -16.5% (GE). 2. The right ventricle is normal in size. ??Right ventricular global systolic function is normal. ??The estimated pulmonary artery systolic pressure is 20 mmHg. 3. The left atrium is normal in size. ??The right atrium is normal in size. 4. The cardiac valves appear structurally and functionally normal. 5. See remainder of report for additional findings. ??Compared to the TTE performed 09/04/20, there has been mild improvement in global LV systolic function. ?? Findings ? : Study Quality: ? Adequate Left Ventricle: ? The left ventricular chamber size is normal. ?Left ventricular wall thickness is normal. ?The quantitative left ventricular ejection fraction by biplane Higginbotham's method is 54%. ?There are no left ventricular segmental wall motion abnormalities. ?Doppler assessment is consistent with normal left sided filling pressure. ?A false chord is observed in the left ventricle. Left Atrium: ? The left atrium is normal in size. 26 ml/m2. Right Ventricle: ? The right ventricle is normal in size. ?Right ventricular global systolic function is normal. ?The estimated pulmonary artery systolic pressure is 20 mmHg. ?The estimated right atrial pressure is 3 mmHg. Right Atrium: ? The right atrium is normal in size. Aortic Valve: ? The aortic valve is tricuspid. ?There is no evidence of aortic valve stenosis. ?There is no evidence of aortic regurgitation. Mitral Valve: ? The mitral valve leaflets appear normal. ?There is trace mitral regurgitation present. Tricuspid Valve: ? The tricuspid valve leaflets are morphologically normal. ?There is trace tricuspid regurgitation present. Pulmonic Valve: ? The pulmonic valve appears normal. Pericardium: ? There is no pericardial effusion. Aorta: ? The aortic root is normal in size. ?The ascending aorta is normal in size. ?There is no evidence of coarctation of the aorta. Pulmonary Artery: ? The main pulmonary artery appears normal. Venous: ? The inferior vena cava appears normal in size. ?There is a greater than 50% respiratory change in the inferior vena cava dimension. Misc: ? The cardiac valves appear structurally and functionally normal. ?See remainder of report for additional findings. ?Two-dimensional echo, spectral Doppler and color Doppler performed. ?Myocardial Strain Imaging Chambers 2D ?Value ?Units (Range) ? IVSd (2D) ? 0.9 ?cm ? LVPWd (2D) ?0.94 ? cm ? IVS:LVPW ratio (2D) 0.96 ? ratio ? RWT (2D) ?0.38 ? ratio ? RWT PW (2D) ? 0.39 ? ratio ? LVIDd (2D) ?4.81 ? cm ? LVIDs (2D) ?3.49 ? cm ? LVIDd (2D) index ?2.35 ? cm/m2 ? LVIDs (2D) index ?1.71 ? cm/m2 ? LV FS (2D) ?27.47 ?% ? EF Teichholz (2D) ?? 53.28 ?% ? Ao root diameter (2D3.04 ? cm (2.1 - 3.6) ? Ascending Ao ?3.09 ? cm (2 - 3.5) ? Volumes/Mass ?Value ?Units (Range) ? LA Area 4 CH ?17 ? cm2 (<21) ? LA ESV BP (A/L) inde26.58 ?ml/m2 ? RA AREA 4CH ? 12 ? cm2 ? LA ESV BP (MOD) inde26 ? ml/m2 ? LV ESV SP 4CH (MOD) 63.18 ?ml ? LV ESV SP 2CH (MOD) 78.97 ?ml ? LV EDV BP ? 157.79 ? ml ? LV ESV BP ? 73.33 ?ml ? LV EDV BP index ? 77.2 ? ml/m2 ? LV ESV BP index ? 35.88 ?ml/m2 ? BP EF (MOD) ? 53.53 ?% ? Global Longiitudinal-16.5 ?% (-30 - -10) ? LV mass (2D) ?152.45 ? g ? LV mass (2D) index ??74.58 ?g/m2 ? Diastolic/Systolic Function ?Value ?Units (Range) ? MV E-wave Vmax ?0.99 ? m/sec ? MV deceleration cryl679.93 ? msec ? MV A-wave Vmax ?0.79 ? m/sec ? MV E:A ratio ?1.25 ? ratio ? LV septal e' Vmax ?? 0.11 ? m/sec ? LV lateral e' Vmax ??0.16 ? m/sec ? LV average e' Vmax ??0.14 ? m/sec ? LV E:e' septal ratio8.96 ? ratio ? LV E:e' lateral rati6.16 ? ratio ? LV average E:e' rati7.3 ?ratio ? Aortic Valve ?Value ?Units (Range) ? AV Vmax ? 1.17 ? m/sec ? AV peak gradient ?5.43 ? mmHg ? LVOT diameter ? 2.02 ? cm ? LVOT Vmax ? 0.91 ? m/sec ? LVOT peak gradient ??3.33 ? mmHg ? DOI (Vmax) ?0.78 ? ratio ? TREY (continuity Vmax2.51 ? cm2 ? TREY (continuity Vmax1.23 ? cm2/m2 ? Tricuspid Valve ?Value ?Units (Range) ? TR Vmax ? 2.06 ? m/sec ? TR peak gradient ?17 ? mmHg ? RAP ? 3 ?mmHg ? RVSP ?20 ? mmHg ? This report has been electronically signed by: Maicol Hart MD ? 12/10/2020 09:11:09 Images reviewed and interpretation verified [facility] Cardiac Ultrasound Laboratory Procedure Note Maicol Hart MD - 12/10/2020 Procedure: Transthoracic Echocardiogram Patient: JORDON Polo DOB(Age): 1995(25y) Med Rec#: [id number] Sex: F Site Loc: [facility] Ht / Wt: 178(cm)/86.18(k Pt. Loc: Echo Lab BSA: 2.04 Study Date: 12/10/2020 Pt. Type: Outpatient Tape: Referring: [facility] Reading: Maicol Hart ([id number]) Supervisor/Port Director: Bushra Tompkins RDCS, GIO Diagnosis: *Cardiomyopathy, unspecified (I42.9) Rhythm: Sinus BP: 108/50 HR: 103 SUMMARY: 1. The left ventricular chamber size is normal. Left ventricular wall thickness is normal. The quantitative left ventricular ejection fraction by biplane Higginbotham's method is 54%. GLS -16.5% (GE). 2. The right ventricle is normal in size. Right ventricular global systolic function is normal. The estimated pulmonary artery systolic pressure is 20 mmHg. 3. The left atrium is normal in size. The right atrium is normal in size. 4. The cardiac valves appear structurally and functionally normal. 5. See remainder of report for additional findings. Compared to the TTE performed 09/04/20, there has been mild improvement in global LV systolic function. Findings : Study Quality: Adequate Left Ventricle: The left ventricular chamber size is normal. Left ventricular wall thickness is normal. The quantitative left ventricular ejection fraction by biplane Higginbotham's method is 54%. There are no left ventricular segmental wall motion abnormalities. Doppler assessment is consistent with normal left sided filling pressure. A false chord is observed in the left ventricle. Left Atrium: The left atrium is normal in size. 26 ml/m2. Right Ventricle: The right ventricle is normal in size. Right ventricular global systolic function is normal. The estimated pulmonary artery systolic pressure is 20 mmHg. The estimated right atrial pressure is 3 mmHg. Right Atrium: The right atrium is normal in size. Aortic Valve: The aortic valve is tricuspid. There is no evidence of aortic valve stenosis. There is no evidence of aortic regurgitation. Mitral Valve: The mitral valve leaflets appear normal. There is trace mitral regurgitation present. Tricuspid Valve: The tricuspid valve leaflets are morphologically normal. There is trace tricuspid regurgitation present. Pulmonic Valve: The pulmonic valve appears normal. Pericardium: There is no pericardial effusion. Aorta: The aortic root is normal in size. The ascending aorta is normal in size. There is no evidence of coarctation of the aorta. Pulmonary Artery: The main pulmonary artery appears normal. Venous: The inferior vena cava appears normal in size. There is a greater than 50% respiratory change in the inferior vena cava dimension. Misc: The cardiac valves appear structurally and functionally normal. See remainder of report for additional findings. Two-dimensional echo, spectral Doppler and color Doppler performed. Myocardial Strain Imaging Chambers 2D Value Units (Range) IVSd (2D) 0.9 cm LVPWd (2D) 0.94 cm IVS:LVPW ratio (2D) 0.96 ratio RWT (2D) 0.38 ratio RWT PW (2D) 0.39 ratio LVIDd (2D) 4.81 cm LVIDs (2D) 3.49 cm LVIDd (2D) index 2.35 cm/m2 LVIDs (2D) index 1.71 cm/m2 LV FS (2D) 27.47 % EF Teichholz (2D) 53.28 % Ao root diameter (2D3.04 cm (2.1 - 3.6) Ascending Ao 3.09 cm (2 - 3.5) Volumes/Mass Value Units (Range) LA Area 4 CH 17 cm2 (<21) LA ESV BP (A/L) inde26.58 ml/m2 RA AREA 4CH 12 cm2 LA ESV BP (MOD) inde26 ml/m2 LV ESV SP 4CH (MOD) 63.18 ml LV ESV SP 2CH (MOD) 78.97 ml LV EDV BP 157.79 ml LV ESV BP 73.33 ml LV EDV BP index 77.2 ml/m2 LV ESV BP index 35.88 ml/m2 BP EF (MOD) 53.53 % Global Longiitudinal-16.5 % (-30 - -10) LV mass (2D) 152.45 g LV mass (2D) index 74.58 g/m2 Diastolic/Systolic Function Value Units (Range) MV E-wave Vmax 0.99 m/sec MV deceleration icjm380.93 msec MV A-wave Vmax 0.79 m/sec MV E:A ratio 1.25 ratio LV septal e' Vmax 0.11 m/sec LV lateral e' Vmax 0.16 m/sec LV average e' Vmax 0.14 m/sec LV E:e' septal ratio8.96 ratio LV E:e' lateral rati6.16 ratio LV average E:e' rati7.3 ratio Aortic Valve Value Units (Range) AV Vmax 1.17 m/sec AV peak gradient 5.43 mmHg LVOT diameter 2.02 cm LVOT Vmax 0.91 m/sec LVOT peak gradient 3.33 mmHg DOI (Vmax) 0.78 ratio TREY (continuity Vmax2.51 cm2 TREY (continuity Vmax1.23 cm2/m2 Tricuspid Valve Value Units (Range) TR Vmax 2.06 m/sec TR peak gradient 17 mmHg RAP 3 mmHg RVSP 20 mmHg This report has been electronically signed by: Maicol Hart MD 12/10/2020 09:11:09 Images reviewed and interpretation verified [facility] Cardiac Ultrasound Laboratory Anton Márquez MD ECHO ORDERABLES * EKG 12 Lead (09/27/2020 11:04 AM EDT) Ventricular rate 71 BPM MUSE SYSTEM Atrial Rate 71 BPM MUSE SYSTEM P-R Interval 142 ms MUSE SYSTEM QRS Duration 88 ms MUSE SYSTEM Q-T Interval 410 ms MUSE SYSTEM QTC Calculated (Bezet) 445 ms MUSE SYSTEM Calculated P Pedro 34 degrees MUSE SYSTEM Calculated R Pedro 52 degrees MUSE SYSTEM Calculated T Pedro 38 degrees MUSE SYSTEM INTERPRETATION Normal sinus rhythm Normal ECG When compared with ECG of 02-AUG-2020 16:36, No significant change was found Confirmed by MD Janie, Rashid ([id number]) on 09/27/2020 12:56:27 PM MUSE SYSTEM 09/27/2020 11:0 4 AM EDT 09/27/2020 12:56 PM EDT Anton Márquez MD ECG ORDERABLES MUSE SYSTEM documented in this encounter Visit Diagnoses Diagnosis Sinus tachycardia Other specified cardiac dysrhythmias 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
--- OUTSIDE RECORDS SUMMARY | 2024-01-03 13:12 | XMS_ITS | Encounter Summary ---
[place] [address] Care Team Providers Care Autism Teacher Name Role Phone Rustam Coppola MD Primary Care Provider [phone] Encounter Details Date Type Department Care Team (Late st Contact Info) Description 04/11/2018 Telephone Cardiology at [address] [phone] Nancy Baker Social History Tobacco [...] * Telephone Encounter - Nancy Baker - 04/11/2018 2:37 PM EST Attempted to call patient, but phone number in system was incorrect on 02/17/18. A letter was sent on 02/17/18 asking for her to call and schedule her appointment. Will send another letter asking forthe patient to call and schedule her appointment. Recall removed. documented in this encounter Plan of Treatment Upcoming Encounters Date Type Department Care Team (Late st Contact Info) Description 01/27/2024 1:00 PM EST Appointment Non-Invasive [place] [phone] Anton Márquez MD [facility] [place] [address] 01/27/2024 3:00 PM EST Office Visit Cardiology at [address] [phone] Anton Márquez MD [facility] [place] [address] documented as of this encounter Visit Diagnoses Not on filedocumented in this encounter Care Teams Autism Teacher Relationship Specialty Start Date End Date Rustam Coppola MD [address] [place] [id number] PCP - General 06/30/13 05/30/18 documented as of this encounter
--- OUTSIDE RECORDS SUMMARY | 2024-01-03 13:12 | XMS_ITS | Encounter Summary ---
[place] [address] Care Team Providers Care Special Tax Auditor Name Role Phone Pietro Son Primary Care Provider [phone] Encounter Details Date Type Department Care Team (Latest Contact Info) Description 01/02/2021 10:15 AM EDT Laboratory Appointment Lab [address] [place] [phone] , unspecified gestational age Social History Tobacco Use Types Packs/Day Years [...] 1:00 PM EST Appointment Non-[place] [phone] Anton Márquez MD [facility] [place] [address] 01/27/2024 3:00 PM EST Office Visit Cardiology at [address] [place] [phone] Anton Márquez MD [facility] [place] [address] documented as of this encounter Procedures Procedure Name Priority Date/Time Associated Diagnosis Comments HC HEMOGRAM Routine 01/02/2021 10:12 AM EDT , unspecified gestational age documented in this encounter Results * (ABNORMAL) Hemogram (01/02/2021 10:12 AM EDT) White Blood Cell 15.1(H) 4.0 - 9.5 x10(3)/mc L [facility] Red Blood Cell 3.80(L) 4.00 - 5.21 x10(6)/mc L [facility] Hemoglobin 11.1(L) 11.7 - 15.5 g/dL [facility] Hematocrit 34.5(L) 35.7 - 45.8 % [facility] Mean Cell Volume 90.8 82.6 - 94.[address] [facility] Mean Cell Hemoglobin 29.2 27.1 - 32.[address] [facility] Mean Cell Hemoglobin Concentration 32.2 31.7 - 35.0 g/dL [facility] Platelet 271 145 - 357 x10(3)/mc L [facility] RDW Standard Deviation 43.8 37.0 - 46.[address] [facility] RDW coefficient of variation 13.5 11.5 - 14.1 % [facility] Mean Platelet Volume 10.2 7.6 - 12.[address] [facility] NRBC% auto 0.1 % [facility] NRBC Absolute 0.020(H) 0.000 - 0.000 x10(3)/mc L [facility] Blood 01/02/2021 10:1 2 AM EDT 01/02/2021 10:27 AM EDT Narrative Resulting Agency Comment Spec In Lab Rustam Hoffman MD HEMATOLOGY ORDERABLE S Performing Organization Address City/State/[facility] Co de Phone Number [facility] [place] [address] documented in this encounter Visit Diagnoses Diagnosis , unspecified gestational age documented in this encounter Care Teams Special Tax Auditor Relationship Specialty Start Date End Date Pietro Son PA [address] [place] [address] PCP - General Internal Medicine 09/27/20 documented as of this encounter
--- OUTSIDE RECORDS SUMMARY | 2024-01-03 13:12 | XMS_ITS | Encounter Summary ---
[place] [address] Care Team Providers Care Home Improvement Advisor Name Role Phone Chela Crook APRN Primary Care Provider [phone] Reason for Visit * Reason Onset Date Comments Other 08/06/[address] Ba ordaz I called patient to schedule echo. Left messages on multiple phone numbers Encounter Details Date Type Department Care Team (Late Contact Info) Description 08/06/2020 Telephone [place] [phone] Belen Ibarra Other (Per Dr. Márquez I called patient to schedule echo. Left messages on multiple phone numbers) Social History Tobacco Use Types Packs/Day Years Used Date Smoking Tobacco: Former Smokeless Tobacco: Never Alcohol Use Standard Drinks/Week [...] Encounters Date Type Department Care Team (Late Contact Info) Description 01/27/2024 1:00 PM EST Appointment Non-[place] [address] Anton Márquez MD [facility] [place] [address] 01/27/2024 3:00 PM EST Office Visit Cardiology at [address] [phone] Anton Márquez MD [facility] [place] [address] documented as of this encounter Visit Diagnoses Not on filedocumented in this encounter Care Teams Home Improvement Advisor Relationship Specialty Start Date End Date Chela Crook APRN [address], [facility] [address] [place] [address] PCP - General Family Medicine 05/31/18 08/14/20 documented as of this encounter
--- OUTSIDE RECORDS SUMMARY | 2024-01-03 13:12 | XMS_ITS | Encounter Summary ---
[place] [address] Care Team Providers Care Terry Cloth Cutter Hand Name Role Phone Pietro Son Primary Care Provider [phone] Reason for Visit * Reason Comments Routine Visit Encounter Details Date Type Department Care Team (Late Contact Info) Description 01/02/2021 9:15 AM EDT Routine Obstetrics [place] [phone] Rustam Hoffman MD [facility] [address] [place] [address] GA: 30w5d Social History Tobacco Use Types Packs/Day Years [...] Sign Reading Time Taken Comments Blood Pressure 104/66 01/02/2021 9:19 AM EDT Pulse - - Temperature - - Respiratory Rate - - Oxygen Saturation - - Inhaled Oxygen Concentration - - Weight 96 kg (211 lb 9.6 oz) 01/02/2021 9:19 AM EDT Height - - Body Mass Index 30.36 12/10/2020 9:19 AM EDT documented in this encounter Progress Notes * Rustam Hoffman MD - 01/02/2021 9:15 AM EDT 25 y at 30w5d with cardiomyopathy and prior c/section. Doing well. Good activity. No bleeding. No SOB, chest pain or palpitations +FH today. tDAP today. Influenza vaccine today. Echo 12/10 = generally reassuring: LV EF = 54% (low normal, but stable) GLS = - 16.5% (borderline) Scheduled for follow up echo on 01/24 Cardiology consult: OK for vaginal delivery. Consider shortened second stage. Desires TL - federal consents signed last visit. Contemplating route of delivery. Tentatively scheduled for c/section and bilateral salpingectomy on03/03 (39+weeks) Planning Covid vaccine before delivery. Hemogram today. RTO 2 weeks. Growth US in 3-4 weeks. MD Jacquelyn documented in this encounter Plan of Treatment Upcoming Encounters Date Type Department Care Team (Late st Contact Info) Description 01/27/2024 1:00 PM EST Appointment Non-Invasive [place]iology [place] [phone] Anton Márquez MD [facility] [address] 01/27/2024 3:00 PM EST Office Visit Cardiology at [address] [phone] Anton Márquez MD [facility] [place] [address] documented as of this encounter Results * (ABNORMAL) Hemogram (01/02/2021 10:12 AM EDT) White Blood Cell 15.1(H) 4.0 - 9.5 x10(3)/mc L [facility] Red Blood Cell 3.80(L) 4.00 - 5.21 x10(6)/mc L [facility] Hemoglobin 11.1(L) 11.7 - 15.5 g/dL [facility] Hematocrit 34.5(L) 35.7 - 45.8 % [facility] Mean Cell Volume 90.8 82.6 - 94.4 fL [facility] Mean Cell Hemoglobin 29.2 27.1 - 32.0 pg [facility] Mean Cell Hemoglobin Concentration 32.2 31.7 - 35.0 g/dL [facility] Platelet 271 145 - 357 x10(3)/ L [facility] RDW Standard Deviation 43.8 37.0 - 46.0 [facility] RDW coefficient of variation 13.5 11.5 - 14.1 % [facility] Mean Platelet Volume 10.2 7.6 - 12.9 fL [facility] NRBC% auto 0.1 % [facility] NRBC Absolute 0.020(H) 0.000 - 0.000 x10(3)/ L [facility] Blood 01/02/2021 10:1 2 AM EDT 01/02/2021 10:27 AM EDT Narrative Resulting Agency Comment Spec In Lab Rustam Hoffman MD HEMATOLOGY ORDERABLE S [facility] [place] [address] documented in this encounter Visit Diagnoses Diagnosis , unspecified gestational age Maternal cardiovascular disease affecting in third trimester Supervision of high risk in third trimester Unspecified high-risk documented in this encounter Care Teams Terry Cloth Cutter Hand Relationship Specialty Start Date End Date Pietro Son PA [address] [place] [address] PCP - General Internal Medicine 09/27/20 documented as of this encounter
--- OUTSIDE RECORDS SUMMARY | 2024-01-03 13:12 | XMS_ITS | Encounter Summary ---
Author Organization [facility] [place] [address] Care Team Providers Care Rn Assessment Name Role Phone Pietro Son Primary Care Provider [phone] Reason for Referral * Diagnostic Test (Routine) - Closed Specialty Diagnoses / Procedures Referred By Contac t Referred To Contact Cardiology Diagnoses Chronic systolic heart failure Procedures Echocardiogram Transthoracic([facility] or [facility]) Anton Márquez MD [facility] [place] [address] [facility] [place] [address] Referral ID Status Reason Start Date Expiration Date V isits Requested Visits Authorized [id number] Closed Specialty Service Requested 12/10/2020 12/10/2021 1 1 Encounter Details Date Type Department Care Team ([facility] st Contact Info) Description 12/10/2020 9:20 AM EDT Office Visit Cardiology at [address] [phone] Anton Márquez MD [facility] [place] [address] Chronic systolic heart failure; Peripartum cardiomyopathy Social [...] Sign Reading Time Taken Comments Blood Pressure 112/60 12/10/2020 9:19 AM EDT Pulse 98 12/10/2020 9:19 AM EDT Temperature - - Respiratory Rate - - Oxygen Saturation 100% 12/10/2020 9:19 AM EDT Inhaled Oxygen Concentration - - Weight 91.1 kg (200 lb 12.8 oz) 12/10/2020 9:19 AM EDT Height 177.8 cm (5' 10) 12/10/2020 9:19 AM EDT Body Mass Index 28.81 12/10/2020 9:19 AM EDT documented in this encounter Patient Instructions * Patient Instructions* Anton Márquez MD - 12/10/2020 9:20 AM EDT -Our clinic can be reached at [phone]. Call us anytime with questions, problems, or importantly new or worsening symptoms. documented in this encounter Progress Notes * Anton Márquez MD - 12/10/2020 9:20 AM EDT Images from the original note [...] , recurrent LV dysfunction in thecurrent . #Last delivery: -Admitted for induction of labor from cardio-OB clinic for maternal medical condition (worsening cardiomyopathy with EF 35%). She underwent serial cervical ripening followed by Pitocin and AROM for induction of labor. She received an early epidural for management of pain. After AROM for meconium stained fluid, FHT were category II and delivery was indicated for nonreassuring status. #High risk #Lost to follow-up: There have been intervals were Mary has been lost to care or has reduced hermedical therapy I met Mary when she was 8 weeks in her second (this one). She was accompaniedby her boyfriend Anderson. We had a long discussion about the risks, benefits, and alternatives of continuing her and Mary had a strong preference to continue this despite the risk of worsening LV function, arrhythmia, decompensated heart failure, and . Pre- weig ht 160lb. Pre- LVEF, last 04/19/2017 59%. She was seen in her first trimester after some difficulty scheduling her, requiring reaching out tofamily. LVEF had dropped from 59% to 45%. Euvolemic. Started on metoprolol 25mg XL daily. She is now returning for a checkup at weeks and is accompanied by her boyfriend's mother.She has not had interim hospitalization for cardiovascular complaints or heart failure. Up to 187 in October (early rapid weight gain of 40lbs), referred to nutrition by MFM. Euvolemic by their description.She denies active symptoms of VEGA, edema, weight gain, orthopnea, PND. She has had no chest pain, syncopeor presyncope, or palpitations. She is no longer working and has been physically active hiking without any cardiovascular symptoms.Her LV function has improved mildly to 54% on metoprolol XL monotherapy. ROHINI late February. Hiking decreased in the summer when the humidity was horrible. Weight gain has slowed. Now total 50lbs. [id number]. Walking on flat ground. Getting really tired with whole body fatigue. Julian, boy age 7, backin school, living with his grandparents. She calls him daily. Mary is not COVID-vaccinated. She is avoiding crowds. Right now only seeing her boyfriend and immediate family. Wears a mask in public, handwashing. Able to clean and move heavy furniture. No longer having nausea or vomiting. Still hav ing heart burn. Taking Tums. NO ED visits or hospitalizations. No chest pain, orthopnea, PND, or LE edema. Sleeping with head ofthe bed up due to back pain. Weight gain in abdomen. No vega, presyncope or syncope. This is 100% easier than her first. She doesn't have a hard time breathing and she doesn't have palpitations like before. She never got a call back from medical nutrition, which OB referred her to for weight gain. Interested in tubal ligation after . Doesn't react well to control. Has discussed this with her boyfriend. Echocardiograms 1st trimester: 08/2020 LVEF 45%. GLS -13.8% 2nd trimester: 11/2020 LVEF 54%. GLS -16.5% (GE). PROBLEM LIST: Patient Active Problem List Diagnosis [...] (Zofran) 4 mg Tablet ??? vit 75/iron/folic/om3 ([id number] FUM-FOLIC AC-OM3 ORAL) Take by mouth. ??? [...] Office Visit from 08/02/2020 in Cardiology at [facility] Weight 72.8 kg (160 lb 9.6 oz) [...] on physical exam -08/2020 LVEF 45%. GLS -13.8%- -11/2020 LVEF 54%. GLS -16.5% (GE). -Continue metoprolol 25 mg XL daily -Asymptomatic, euvolemic, no need for diuretic. Instructed to call if she develops new symptoms. -Ultrasounds for growth with [facility] -Repeat TTE prior to next visit in January for final delivery planning - We will have an [facility] multidisciplinary meeting regarding delivery planning. It is preferrable to avoid a protracted labor (like her first ) regardless of her ventricular function, however, she does not have a cardiac contraindication to a possible vaginal delivery with either an assisted second stage or plan to assist if it is progressing slowly. should be considered for non-reassuring signs or obstetric indications. She is interested in tubal ligation after this as her contraception. ?? Contact information in [facility] is outdated. Here are the best contact numbers: Best number to reach Mary [phone] (cell) ok to leave messages Best number to reach Anderson Phelan [phone]( boyfriendcell) ok to leave messages Soraya Best [phone]. RTC 2 months with echo on the day, delivery planning with [facility] multidisciplinary team. Anton Márquez MD 12/08/2020 3:07 PM documented in this encounter Plan of Treatment Upcoming Encounters Date Type Department Care Team (Late st Contact Info) Description 01/27/2024 1:00 PM EST Appointment Non-[place] [phone] Anton Márquez MD [facility] [place] [address] 01/27/2024 3:00 PM EST Office Visit Cardiology at [address] [phone] Anton Márquez MD [facility] [place] [address] documented as of this encounter Results * ECHO LMTD W/O CONTRAST W LMTD SPEC DOPP COLOR DOPP (01/14/2021 10:39 AM EDT) Anatomical Region Laterality Modality Other 01/14/2021 Narrative 01/14/2021 11:00 AM EDT Procedure: ?Transthoracic Echocardiogram Patient: ?JORDON Polo ? (Age): 1995(25y) Med Rec#: ? [id number] ?Sex: ?F ? Site Loc: ? [facility] ?Ht / Wt: ??177.8(cm)/98(kg Pt. Loc: ?Echo Lab ?BSA: ?2.16 Study Date: ?? 01/14/2021 ?Pt. Type: Inpatient Tape: ? Referring: Anton Márquez ([id number]) Reading: Ean Linares ([id number]) Account Review Specialist: An Soto Diagnosis: *Chronic systolic (congestive) heart failure (I50.22) Rhythm: ? Sinus BP: ? 112/73 SUMMARY: 1. The left ventricle is severely dilated. [...] See remainder of report for additional findings. Findings ? : Study Quality: ? Adequate Left Ventricle: ? The left ventricle is severely dilated. ?Global left ventricular systolic function is moderately reduced. ?The quantitative left ventricular ejection fraction by biplane Higginbotham's method is 35%. ?There is diffuse hypokinesis present. except for the basal anterolateral and inferolateral segments which are normal. Right Ventricle: ? The right ventricle is normal in size. ?Right ventricular global systolic function is normal. ?The estimated pulmonary artery systolic pressure is 22 mmHg. ?The estimated right atrial pressure is 8 mmHg. Aortic Valve: ? The aortic valve is tricuspid. ?There is no evidence of aortic valve stenosis. ?There is a trace of aortic regurgitation present. Mitral Valve: ? There is flattened closure of the mitral valve leaflets. ?There is no evidence of mitral stenosis. ?There is mild (1+/4+) mitral regurgitation present. Tricuspid Valve: ? The tricuspid valve leaflets are morphologically normal. ?There is no tricuspid valve stenosis. ?There is trace tricuspid regurgitation present. Pericardium: ? There is no pericardial effusion. Pulmonary Artery: ? The main pulmonary artery is not well visualized. Venous: ? The inferior vena cava appears normal in size. ?There is less than 50% respiratory change in the inferior vena cava dimension consistent with elevated right atrial pressure. Misc: ? There is no hemodynamically significant valve disease. ?See remainder of report for additional findings. Volumes/Mass ?Value ?Units (Range) ? LV ESV SP 4CH (MOD) 97.69 ?ml ? LV ESV SP 2CH (MOD) 91.79 ?ml ? LV EDV BP ? 149.35 ? ml ? LV ESV BP ? 97.02 ?ml ? LV EDV BP index ? 69.24 ?ml/m2 ? LV ESV BP index ? 44.98 ?ml/m2 ? BP EF (MOD) ? 35.04 ?% ? Diastolic/Systolic Function ?Value ?Units (Range) ? MV E-wave Vmax ?0.69 ? m/sec ? MV deceleration [id number] ? msec ? MV A-wave Vmax ?0.59 ? m/sec ? MV E:A ratio ?1.17 ? ratio ? LV septal e' Vmax ?? 0.06 ? m/sec ? LV E:e' septal ratio11.56 ?ratio ? Aortic Valve ?Value ?Units (Range) ? AV Vmax ? 1.12 ? m/sec ? AV VTI ?20.8 ? cm ? AV peak gradient ?5.02 ? mmHg ? AV mean gradient ?3.16 ? mmHg ? LVOT Vmax ? 0.92 ? m/sec ? LVOT VTI ?16.17 ?cm ? LVOT peak gradient ??3.35 ? mmHg ? LVOT mean gradient ??1.91 ? mmHg ? DOI (VTI) ? 0.78 ? ratio ? DOI (Vmax) ?0.82 ? ratio ? Tricuspid Valve ?Value ?Units (Range) ? TR Vmax ? 1.85 ? m/sec ? TR peak gradient ?13.72 ?mmHg ? RAP ? 8 ?mmHg ? RVSP ?22 ? mmHg ? This report has been electronically signed by: Ean Linares MD ? 01/14/2021 11:00:19 Images reviewed and interpretation verified [facility] Cardiac Ultrasound [facility] Procedure Note Ean Linares MD - 01/14/2021 Procedure: Transthoracic Echocardiogram Patient: JORDON Polo (Age): 1995(25y) Med Rec#: [id number] Sex: F Site Loc: [facility] Ht / Wt: 177.8(cm)/98(kg Pt. Loc: Echo Lab BSA: 2.16 Study Date: 01/14/2021 Pt. Type: Inpatient Tape: Referring: Anton Márquez ([id number]) Reading: Ean Linares ([id number]) Account Review Specialist: An Soto Diagnosis: *Chronic systolic (congestive) heart failure (I50.22) Rhythm: Sinus BP: 112/73 SUMMARY: 1. The left ventricle is severely dilated. [...] See remainder of report for additional findings. Findings : Study Quality: Adequate Left Ventricle: The left ventricle is severely dilated. Global left ventricular systolic function is moderately reduced. The quantitative left ventricular ejection fraction by biplane Higginbotham's method is 35%. There is diffuse hypokinesis present. except for the basal anterolateral and inferolateral segments which are normal. Right Ventricle: The right ventricle is normal in size. Right ventricular global systolic function is normal. The estimated pulmonary artery systolic pressure is 22 mmHg. The estimated right atrial pressure is 8 mmHg. Aortic Valve: The aortic valve is tricuspid. There is no evidence of aortic valve stenosis. There is a trace of aortic regurgitation present. Mitral Valve: There is flattened closure of the mitral valve leaflets. There is no evidence of mitral stenosis. There is mild (1+/4+) mitral regurgitation present. Tricuspid Valve: The tricuspid valve leaflets are morphologically normal. There is no tricuspid valve stenosis. There is trace tricuspid regurgitation present. Pericardium: There is no pericardial effusion. Pulmonary Artery: The main pulmonary artery is not well visualized. Venous: The inferior vena cava appears normal in size. There is less than 50% respiratory change in the inferior vena cava dimension consistent with elevated right atrial pressure. Misc: There is no hemodynamically significant valve disease. See remainder of report for additional findings. Volumes/Mass Value Units (Range) LV ESV SP 4CH (MOD) 97.69 ml LV ESV SP 2CH (MOD) 91.79 ml LV EDV BP 149.35 ml LV ESV BP 97.02 ml LV EDV BP index 69.24 ml/m2 LV ESV BP index 44.98 ml/m2 BP EF (MOD) 35.04 % Diastolic/Systolic Function Value Units (Range) MV E-wave Vmax 0.69 m/sec MV deceleration [id number] msec MV A-wave Vmax 0.59 m/sec MV E:A ratio 1.17 ratio LV septal e' Vmax 0.06 m/sec LV E:e' septal ratio11.56 ratio Aortic Valve Value Units (Range) AV Vmax 1.12 m/sec AV VTI 20.8 cm AV peak gradient 5.02 mmHg AV mean gradient 3.16 mmHg LVOT Vmax 0.92 m/sec LVOT VTI 16.17 cm LVOT peak gradient 3.35 mmHg LVOT mean gradient 1.91 mmHg DOI (VTI) 0.78 ratio DOI (Vmax) 0.82 ratio Tricuspid Valve Value Units (Range) TR Vmax 1.85 m/sec TR peak gradient 13.72 mmHg RAP 8 mmHg RVSP 22 mmHg This report has been electronically signed by: Ean Linares MD 01/14/2021 11:00:19 Images reviewed and interpretation verified [facility] Cardiac Ultrasound Laboratory Anton áMrquez MD ECHO ORDERABLES documented in this encounter Visit Diagnoses Diagnosis Chronic systolic heart failure Peripartum cardiomyopathy Peripartum cardiomyopathy, unspecified as to episode of care Chronic systolic heart failure documented in this encounter Care Teams Rn Assessment Relationship Specialty Start Date End Date Pietro Son PA [address] [place] [address] PCP - General Internal Medicine 09/27/20 documented as of this encounter
--- OUTSIDE RECORDS SUMMARY | 2024-01-03 13:12 | XMS_ITS | Encounter Summary ---
[place] [address] Care Team Providers Care Silk Presser Name Role Phone Pietro Son Primary Care Provider [phone] Reason for Visit * Reason Comments Routine Visit Encounter Details Date Type Department Care Team (Late st Contact Info) Description 10/10/2020 11:30 AM EDT Routine Obstetrics [place] [phone] Meri Zimmerman MD [facility] DR OBSTETRICS [place] [address] GA: 18w5d Social History Tobacco Use Types Packs/Day Years [...] Reading Time Taken Comments Blood Pressure 106/62 10/10/2020 11:36 AM EDT Pulse - - Temperature - - Respiratory Rate - - Oxygen Saturation - - Inhaled Oxygen Concentration - - Weight 78.3 kg (172 lb 11.2 oz) 021 11:36 AM EDT Height - - Body Mass Index 24.78 09/27/2020 10:47 AM EDT documented in this encounter Progress Notes * Meri Zimmerman MD - 10/10/2020 11:30 AM EDT 18 5/7 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 Is followed by Dr. Márquez Did not do well with recent air quality warning (smoke) [place] like she had chest pain but had no issues when she was indoors. She has resumed normal activity without symptoms. Otherwise has had no chest pain, palpitations, dyspnea and edema Patient Vitals for the past 24 hrs: BP 10/10/20 1136 106/62 2nd Trimester - Detailed Morphology - Summary Single intrauterine with a gestational age of 18w 5d based on Early Ultrasound (07/16/20). Composite age based on the current ultrasound alone is 19w 3d. Current growth parameters are consistent with prior dating indicating normal growth. Amniotic fluid volume is subjectively normal for gestational age. Detailed anatomic evaluation was performed and no structural abnormalities are noted. Doing well without evidence for cardiac decompensation She asked for a Rx for a belly band which I gave to her RTC 4 weeks MFM 8 weeks MFM coordinate with currently scheduled cardiology appointment ERB documented in this encounter Plan of Treatment Upcoming Encounters Date Type Department Care Team (Late st Contact Info) Description 01/27/2024 1:00 PM EST Appointment Non-[place] [address] Anton Márquez MD [facility] [place] [address] 01/27/2024 3:00 PM EST Office Visit Cardiology at [address] [phone] Anton Márquez MD [facility] [place] [address] documented as of this encounter Visit Diagnoses Diagnosis Acute midline low back pain without sciatica documented in this encounter Care Teams Silk Presser Relationship Specialty Start Date End Date Pietro Son PA [address] [place] [address] PCP - General Internal Medicine 09/27/20 documented as of this encounter
--- OUTSIDE RECORDS SUMMARY | 2024-01-03 13:12 | XMS_ITS | Encounter Summary ---
[place] [address] Care Team Providers Care Life Enrichment Assistant Name Role Phone Pietro Son Primary Care Provider [phone] Encounter Details Date Type Department Care Team (Latest Contact Info) Description 10/10/2020 10:29 AM EDT - 10/10/2020 11:59 PM EDT Hospital [place] [phone] Zuri Borden MD [facility] [place] [address] 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; Single liveborn, born in hospital, delivered by section Discharge Disposition: Home Social History Tobacco Use [...] Sig Dispensed Refills Start Date End Date metoprolol succinate XL (Toprol-XL) 25 mg Tablet Sustained Release 24 hrIndications:Chronic systolic heart failure,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 Take 1 tablet by mouth daily. 90 tablet 2 09/05/2020 01/25/2021 docusate sodium (Colace) 50 mg Capsule Take by mouth. 08/16/2020 12/10/2020 ondansetron (Zofran) 4 mg Tablet 08/16/2020 12/10/2020 vit 75/iron/folic/om3 ([id number] FUM-FOLIC AC-OM3 ORAL) Take by mouth. 08/16/2020 09/25/2021 metoclopramide (Reglan) 10 mg Tablet 07/25/2020 12/10/2020 documented as of this encounter Plan of Treatment Upcoming Encounters Date Type Department Care Team (Late st Contact Info) Description 01/27/2024 1:00 PM EST Appointment Non-Invasive [place] [phone] Anton Márquez MD [facility] [place] [address] 01/27/2024 3:00 PM EST Office Visit Cardiology at [address] [phone] Anton Márquez MD [facility] [place] [address] documented as of this encounter Procedures Procedure Name Priority Date/Time Associated Diagnosis Comments US OB DETAILED MORPHOLOGY Routine 10/10/2020 11:26 AM EDT 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 Single liveborn, born in hospital, delivered by section documented in this encounter Results * US OB Detailed Morphology (10/10/2020 11:26 AM EDT) Anatomical Region Laterality Modality Pelvis, Abdomen Ultrasound 10/10/2020 11:0 7 AM EDT Impressions 10/10/2020 11:30 AM EDT 2nd Trimester - Detailed Morphology - Summary Single intrauterine with a gestational age of 18w 5d based on Early Ultrasound ??(07/16/20). Composite age based on the current ultrasound alone is 19w 3d. Current growth parameters are consistent with prior dating indicating normal growth. Amniotic fluid volume is subjectively normal for gestational age. Detailed anatomic evaluation was performed and no structural abnormalities are noted. Thank you for letting us participate in the care of this patient. If you are a health care provider and have any questions regarding this report, please contact the number above. For patients who have questions, please contact the health childcare center director that requested your imaging first. ?Meri Zimmerman, Waist Pleater Electronically Signed Final Report ?? 10/10/2020 11:30 am Narrative 10/10/2020 11:30 AM EDT OBSTETRICS REPORT ? (Signed Final 10/10/2020 11:30 am) PATIENT INFO: ID #: ? [id number] ?: ??[birth year] (25 yrs)(F) Name: ? MARY C ?Visit Date: 10/10/2020 11:07 am ? JORDON PERFORMED BY: Performed By: ? Beth Blandon RDMS Attending: ?Erasmo MEDINA, Meri Olvera Referred By: ?E RUSTY BORDEN Location: ? [facility] SERVICE(S) PROVIDED: [facility] - Detailed Morphology - [id number] ? [id number] INDICATIONS: 18 weeks gestation of ? Z3A.18 h/o cardiomyopathy; anatomy; h/o CS VITAL SIGNS: Weight (lb): 170.0 Height: ?5'10 ? BMI: ?24.39 EVALUATION: Num Of Fetuses: ?1 Heart Rate(bpm): ?? 148 Cardiac Activity: ?Observed, normal rhythm Presentation: ?Cephalic Placenta: ?Anterior P. Cord Insertion: ? Within Normal Limits Amniotic Fluid CHRISTY FV: ?Subjectively normal for gestational age --------- BIOMETRY: --------- BPD: ?42.8 ??mm ? G.Age: ?? 19w 0d OFD: ?55.8 ??mm HC: ?159.3 ??mm ? G.Age: ?? 18w 6d AC: ?148.6 ??mm ? G.Age: ?? 20w 1d FL: ? 30.8 ??mm ? G.Age: ?? 19w 4d HUM: ?29.3 ??mm ? G.Age: ?? 19w 4d CER: ?18.6 ??mm ? G.Age: ?? 18w 2d NFT: ?4.48 ??mm NB: ?4.9 ??mm LV: ?8.1 ??mm CM: ?5.8 ??mm CI: ?76.7 ??% ? 70 - 86 FL/HC: ? 19.3 ??% ? 16.1 - 18.3 HC/AC: ? 1.07 ?1.09 - 1.39 FL/BPD: ?72.0 ??% FL/AC: ? 20.7 ??% ? 20 - 24 Est. FW: ? 309 ?? gm ?? 0 lb 11 oz GESTATIONAL AGE: U/S Today: ? 19w 3d ?ROHINI: ?? 03/03/21 Best: ?18w 5d ?? Det. By: ??Early ?ROHINI: ?? 03/08/21 ? Ultrasound ? (07/16/20) TARGETED ANATOMY: Central Nervous System Calvarium/Cranial V.: ??Within Normal Limits Intracranial Tanna: ? Visualized Cavum: ? Visualized Parenchyma: ?Visualized Lateral Ventricles: ?Visualized Choroid Plexus: ?Visualized Cereb./Vermis: ? Within Normal Limits Cisterna Magna: ?Within Normal Limits Midline Falx: ?Visualized Spine Cervical: ?Visualized Thoracic: ?Visualized Lumbar: ?Visualized Sacral: ?Visualized Shape/Curvature: ? Visualized Head/Neck Face: ?Visualized Lips: ?Visualized Neck: ?Visualized Nuchal Fold: ? Within Normal Limits Nasal Bone: ?Present Profile: ? Visualized Orbits/Eyes: ? Visualized Mandible: ?Visualized Maxilla: ? Visualized Thorax Thoracic Contour: ?Visualized Lungs: ? Visualized 4 Chamber View: ?Visualized Cardiac Activity: ?Normal Rhythm Rt Outflow Tract: ?Visualized Lt Outflow Tract: ?Visualized Aortic Arch: ? Visualized Ductal Arch: ? Visualized SVC: ? Visualized Interventr. Septum: ?Visualized Cardiac [place]: ?Visualized Diaphragm: ? Visualized 3 Vessel View: ? Visualized 3 V Trachea View: ?Visualized IVC: ? Visualized Crossing: ?Visualized Abdomen Ventral Wall: ?Visualized Cord Insertion: ?Visualized Situs: ? Normal Stomach: ? Visualized Liver: ? Visualized Lt Kidney: ? Visualized Rt Kidney: ? Visualized Bladder: ? Visualized Bowel: ? Visualized Extremities Lt Humerus: ?Visualized Rt Humerus: ?Visualized Lt Forearm: ?Visualized Rt Forearm: ?Visualized Lt Hand: ? Visualized Rt Hand: ? Visualized Lt Femur: ?Visualized Rt Femur: ?Visualized Lt Lower Leg: ?Visualized Rt Lower Leg: ?Visualized Lt Foot: ? Visualized Rt Foot: ? Visualized Other Umbilical Cord: ?3 vessel cord Genitalia: ? Visualized CERVIX UTERUS ADNEXA: Right Ovary Not visualized Left Ovary Size(cm) ? 2.4 ??x ?? 2.6 ?x ??1.6 ? Vol(ml): 5.2 Visualized Procedure Note Meri Zimmerman MD - 10/10/2020 OBSTETRICS REPORT (Signed Final 10/10/2020 11:30 am) PATIENT INFO: ID #: [id number] : [birth year] (25 yrs)(F) Name: MARY Polo Visit Date: 10/10/2020 11:07 am JORDON PERFORMED BY: Performed By: Beth Blandon RDMS Attending: Meri Zimmerman MD Referred By: [facility] Location: [facility] SERVICE(S) PROVIDED: [facility] - Detailed Morphology - [id number] INDICATIONS: 18 weeks gestation of Z3A.18 h/o cardiomyopathy; anatomy; h/o CS VITAL SIGNS: Weight (lb): 170.0 Height: 5'10 BMI: 24.39 EVALUATION: Num Of Fetuses: 1 Heart Rate(bpm): 148 Cardiac Activity: Observed, normal rhythm Presentation: Cephalic Placenta: Anterior P. Cord Insertion: Within Normal Limits Amniotic Fluid CHRISTY FV: Subjectively normal for gestational age --------- BIOMETRY: --------- BPD: 42.8 mm G.Age: 19w 0d OFD: 55.8 mm HC: 159.3 mm G.Age: 18w 6d AC: 148.6 mm G.Age: 20w 1d FL: 30.8 mm G.Age: 19w 4d HUM: 29.3 mm G.Age: 19w 4d CER: 18.6 mm G.Age: 18w 2d NFT: 4.48 mm NB: 4.9 mm LV: 8.1 mm CM: 5.8 mm CI: 76.7 % 70 - 86 FL/HC: 19.3 % 16.1 - 18.3 HC/AC: 1.07 1.09 - 1.39 FL/BPD: 72.0 % FL/AC: 20.7 % 20 - 24 Est. FW: 309 gm 0 lb 11 oz GESTATIONAL AGE: U/S Today: 19w 3d ROHINI: 03/03/21 Best: 18w 5d Det. By: Early ROHINI: 03/08/21 Ultrasound (07/16/20) TARGETED ANATOMY: Central Nervous System Calvarium/Cranial V.: Within Normal Limits Intracranial Tanna: Visualized Cavum: Visualized Parenchyma: Visualized Lateral Ventricles: Visualized Choroid Plexus: Visualized Cereb./Vermis: Within Normal Limits Cisterna Magna: Within Normal Limits Midline Falx: Visualized Spine Cervical: Visualized Thoracic: Visualized Lumbar: Visualized Sacral: Visualized Shape/Curvature: Visualized Head/Neck Face: Visualized Lips: Visualized Neck: Visualized Nuchal Fold: Within Normal Limits Nasal Bone: Present Profile: Visualized Orbits/Eyes: Visualized Mandible: Visualized Maxilla: Visualized Thorax Thoracic Contour: Visualized Lungs: Visualized 4 Chamber View: Visualized Cardiac Activity: Normal Rhythm Rt Outflow Tract: Visualized Lt Outflow Tract: Visualized Aortic Arch: Visualized Ductal Arch: Visualized SVC: Visualized Interventr. Septum: Visualized Cardiac [place]: Visualized Diaphragm: Visualized 3 Vessel View: Visualized 3 V Trachea View: Visualized IVC: Visualized Crossing: Visualized Abdomen Ventral Wall: Visualized Cord Insertion: Visualized Situs: Normal Stomach: Visualized Liver: Visualized Lt Kidney: Visualized Rt Kidney: Visualized Bladder: Visualized Bowel: Visualized Extremities Lt Humerus: Visualized Rt Humerus: Visualized Lt Forearm: Visualized Rt Forearm: Visualized Lt Hand: Visualized Rt Hand: Visualized Lt Femur: Visualized Rt Femur: Visualized Lt Lower Leg: Visualized Rt Lower Leg: Visualized Lt Foot: Visualized Rt Foot: Visualized Other Umbilical Cord: 3 vessel cord Genitalia: Visualized CERVIX UTERUS ADNEXA: Right Ovary Not visualized Left Ovary Size(cm) 2.4 x 2.6 x 1.6 Vol(ml): 5.2 Visualized IMPRESSION 2nd Trimester - Detailed Morphology - Summary Single intrauterine with a gestational age of 18w 5d based on Early Ultrasound (07/16/20). Composite age based on the current ultrasound alone is 19w 3d. Current growth parameters are consistent with prior dating indicating normal growth. Amniotic fluid volume is subjectively normal for gestational age. Detailed anatomic evaluation was performed and no structural abnormalities are noted. Thank you for letting us participate in the care of this patient. If you are a health care provider and have any questions regarding this report, please contact the number above. For patients who have questions, please contact the health childcare center director that requested your imaging first. Meri Zimmerman, Waist Pleater Electronically Signed Final Report 10/10/2020 11:30 am E Rusty Borden MD [facility] OB ORDERAB LES documented in this encounter Visit Diagnoses Diagnosis 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 Single liveborn, born in hospital, delivered by section Single liveborn, born in hospital, delivered by delivery documented in this encounter Care Teams Life Enrichment Assistant Relationship Specialty Start Date End Date Pietro Son PA [address] [place] [address] PCP - General Internal Medicine 09/27/20 documented as of this encounter
--- OUTSIDE RECORDS SUMMARY | 2024-01-03 13:12 | XMS_ITS | Encounter Summary ---
[place] [address] Care Team Providers Care Combatant Diver Officer Name Role Phone Unknown Primary Care Provider Unavailabl e Reason for Visit * Reason Onset Date Comments Other 09/05/2020 Encounter Details Date Type Department Care Team ([facility] Contact Info) Description 09/05/2020 Telephone Cardiology at [address] [phone] Tanna Corrales RN Other Social History Tobacco Use Types Packs/Day [...] encounter Miscellaneous Notes * Telephone Encounter - Tanna Corrales RN - 09/05/2020 8:[address] Márquez: TTE results received. LVEF has come down from normal. Will need beta sunitha to protect her heart during . Can someone order 25mg metoprolol XL daily to whatever pharmacy she prefers and lether know? Thank you! This RN contacted Mary and explained Dr Márquez's message as noted above,Mary expresses good understanding,all questions answered. Uses [facility] in [facility]. Prescription prepared and forwarded to Dr Márquez for her electronic signature. documented in this encounter Plan of Treatment Upcoming Encounters Date Type Department Care Team (Late st Contact Info) Description 01/27/2024 1:00 PM EST Appointment Non-Invasive [place] [address] Anton Márquez MD [facility] [place] [address] 01/27/2024 3:00 PM EST Office Visit Cardiology at [address] [phone] Anton Márquez MD [facility] [place] [address] documented as of this encounter Visit Diagnoses Not on filedocumented in this encounter Care Teams Combatant Diver Officer Relationship Specialty Start Date End Date Unknown None PCP - General 08/16/20 09/26/20 documented as of this encounter
--- OUTSIDE RECORDS SUMMARY | 2024-01-03 13:12 | XMS_ITS | Encounter Summary ---
[place] [address] Care Team Providers Care Deaf/Hard Of Hearing Specialist Name Role Phone Rustam Coppola MD Primary Care Provider [phone] Encounter Details Date Type Department Care Team (Late st Contact Info) Description 04/19/2017 3:00 PM EST Office Visit Cardiology at [address] [phone] Imelda Durham, TRAINING ASSOCIATE [facility] [place] [address] Chronic systolic heart failure Social History Tobacco [...] Sign Reading Time Taken Comments Blood Pressure 102/59 04/19/2017 2:44 PM EST Pulse 80 04/19/2017 2:44 PM EST Temperature - - Respiratory Rate - - Oxygen Saturation 99% 04/19/2017 2:4 4 PM EST room air Inhaled Oxygen Concentration - - Weight 80.3 kg (177 lb) 04/19/2017 2:44 PM EST w/boots, PT refused to take boots off Height 175.3 cm (5' 9) 04/19/2017 2:44 PM EST Body Mass Index 26.14 04/19/2017 2:44 PM EST documented in this encounter Progress Notes * Imelda Durham, TRAINING ASSOCIATE - 04/19/2017 3:00 PM EST Images from the original note were not included. [facility] Section of Advanced Heart Failure Cardiology [facility] [place] [address] OUTPATIENT VISIT DATE: 04/19/17 OUTPATIENT VISIT TYPE: New Patient PRIMARY CARE PHYSICIAN: Rustam Coppola MD REFERRING PHYSICIAN: None CHIEF COMPLAINT: No chief complaint on file. HISTORY OF PRESENT ILLNESS: (from visit 2 weeks ago) This 21-year-old female presents for follow-up after a 3 year hiatus. 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 We met her during in 2013 when her LVEFdropped from 51% to 35%. She had an uncomplicated 09/2013. She was seen in the heart failure clinic in routine follow-up 7 months after her delivery. Heart failure medical therapy has included enalapril and metoprolol in the past. When she returned to the clinic in 2014 she was on no medical therapy at that time. Wisam inhibitor and beta- sunitha were reinitiated. She returned for an attempted MRI which was unable to be completed. That was our last contact with the patient. Mary returns today to reestablish follow-up. Her son, Julian, is now 4 years old. [facility] [place] [place] (son's father's parents). She has been off cardiac medical therapy since 2014. She reports a several year history of intermittent sharp pain in the center of her chest which is not brought on by any particular activity. She will have intermittent chest pressure and difficulty breathing. Occasionally she will feel palpitations lasting a few minutes in duration. None of her reported symptoms are new and have been present for at least one year. her weight has remained fairly stable. She notes no lower extremity edema. She denies syncope presyncope light headedness or dizziness. She is currently sexually active and is using condoms. She has plans to visit er MANAGER NEW PRODUCT soon and initiate NuvaRing. Since last visit: Since her last visit she started metoprolol and lisinopril as recommended. She has occasional lightheadedness when she stands up quickly. There is no syncope or presyncope. There is no palpitations. Her major complaint is ongoing fatigue. She is here today with her boyfriend. Contact with her new PCP has not been established. RELEVANT CARDIAC HISTORY: ?? Diagnosed with a viral myocarditis at age 4 months- on meds until age 8. ?? EF was 51% at 22 weeks , and then around 35% on 09/2013. (echo data noted below) ?? S/P uncomplicated IOL and at 37 weeks on 10/09/2013 ?? On enalapril and metoprolol in the past - none since 2014 - says that they make her tired. ?? Low-dose metoprolol and lisinopril reinitiated March 2017. OUTPATIENT MEDICATIONS: Current Outpatient Prescriptions Medication Sig Dispense Refill ??? meTOPROLOL succinate (TOPROL-XL) 25 mg Tablet Sustained Release 24 hr Take 1 tablet by mouth daily. 30 tablet 12 ??? lisinopril (PRINIVIL;ZESTRIL) 2.5 mg Tablet Take 1 tablet by mouth daily. 30 tablet 3 ALLERGIES: No Known Allergies PAST MEDICAL HISTORY: Patient Active Problem List Diagnosis ??? Sinus tachycardia ??? Cardiomyopathy 1. Nonischemic [...] ??? High risk teen With known cardiomyopathy PAST SURGICAL HISTORY: Past Surgical History: Procedure Laterality Date ??? CENTRAL VENOUS CATHETER ??? PRO DELIVERY ONLY 10/08/2013 @ DELIVERY performed by Meri Zimmerman MD at [facility] OR FAMILY HISTORY: family history is not on file. SOCIAL HISTORY: Social History Social History Narrative Unmarried. [facility] [place] [facility] with sons grandparents. Smoking MJ 3x per day - none X 1 month. No ETOH. No other drugs. REVIEW OF SYSTEMS: See HPI above for pertinent positives and negatives. All other ROS negative by system (including general, HEENT, pulmonary, gastrointestinal, genitourinary, musculoskeletal, endocrine, hematologic, extremity, skin, neurology, and psychiatric) with exceptions below. PHYSICAL EXAMINATION: VITALS: BP 102/59 Pulse 80 Ht 175.3 cm (5' 9) Wt 80.3 kg (177 lb) Comment: w/boots, PT refused to take boots off SpO2 99% Comment: room air BMI 26.14 kg/m2 GENERAL: Pleasant and in no acute distress. Well appearing. PSYCH: Mood appropriate. LABS: Recent Labs 04/19/17 1315 NA 144 K 4.1 CL 102 CO2 29 BUN 10 CREATININE 0.85 GLUCOSE 70 ProBNP Date Value Ref Range Status 03/29/2017 62 <=125 pg/mL Final 10/07/2013 438 (H) <=125 pg/mL Final 09/19/2013 104 <=125 pg/mL Final CARDIOLOGY RELEVANT STUDIES: CXR EKG 03/2017: NSR 88 bpm. QRS 88 ms. Nl axis Holter monitor 06/2013: no arrhythmia Echo and JULEE 06/2013: LVEF 51%. LVIDd 6. 09/2013: LVEF 35%. LVIDd 6. GLS -9%. RV mildly dil, Nl fx 04/2014: LVEF 34%. LVIDd 6.1 . RV nl size and fx 04/2017: LVEF 59% LVIDd 5.5 RV nl Stress test Coronary Angiography Right Heart Catheterization Endomyocardial Biopsy Cardiac MRI 08/2014 Incomplete evaluation CPET PFT's Sleep Study I thoroughly reviewed the patient's current clinical status, the pertinent laboratory and recent cardiovascular or imaging studies, and the active management plan. IMPRESSION / PLAN: Mary Porras is a 21 y.o. female with history as above, seen in the heart failure clinic todaywith the following impression and plan: 1. History of nonischemic dilated cardiomyopathy- echo today shows LVEF improved from 35% to 59% with normal LV size. 2. Chronic systolic heart failure. ACC/AHA stage C. NYHA functional class II. Tolerating low-dose beta-sunitha and WISAM inhibitor with no current heart failure symptoms other than fatigue which may or may not be heart failure related. Discussed rationale for standard medical therapy. Discussed compliance with low- sodium diet and frequent weight monitoring. Strongly encouraged use of a more reliable control method and discouraged recurrent . Needs to establish with PCP RECOMMEND: Continue metoprolol at current dose. Hold off on lisinopril for now. I am concerned that she is not using reliable control method and is sexually active. COUNSELING: The signs and symptoms to be aware of for more urgent evaluation were discussed and all questions addressed. The patient was counseled to continue cardiovascular care management and self management principles and to notify providers of any change in clinical status. Additionally, we discussed the fo llowing non-pharmacological measures during this visit: ??? Smoking and alcohol abstinence/cessation, if applicable ??? Dietary and medication compliance ??? Monitoring daily weights and blood pressures ??? Exercise regimen ??? When to call our office FOLLOW UP: 6 months with lab work IMELDA DURHAM APRN documented in this encounter Plan of Treatment Upcoming Encounters Date Type Department Care Team (Late st Contact Info) Description 01/27/2024 1:00 PM EST Appointment Non-[place] [address] Anton Márquez MD [facility] [place] [address] 01/27/2024 3:00 PM EST Office Visit Cardiology at [address] [phone] Anton Márquez MD [facility] [place] [address] documented as of this encounter Results * Basic Metabolic Panel (non-fasting) (04/19/2017 1:15 PM EST) Glucose 70 65 - 199 mg/dL [facility] Comment:Diabetes: >=200 mg/d L plus symptoms Blood Urea Nitrogen 10 8 - 18 mg/dL [facility] Creatinine 0.85 0.70 - 1.20 mg/dL [facility] Sodium 144 135 - 145 mmol/L [facility] Potassium 4.1 3.5 - 5.0 mmol/L [facility] Comment: Please note: ??Patients with WBC >100,000 may have falsely elevated Potassium levels. ??For accurate Potassium quantification in these patients send serum separator tube (gold top) for subsequent determinations. ??Contact the Clinical Chemistry Laboratory if there are any questions. Chloride 102 98 - 107 mmol/L [facility] Carbon Dioxide 29 22 - 31 mmol/L [facility] Anion Gap 13 5 - 15 mmol/L [facility] Calcium 9.3 8.5 - 10.5 mg/dL [facility] Est Glomerular Filtration Rate >60 >=60 [facility] Comment: The reported eGFR should be multiplied by 1.2 for patients. The MDRD is not an appropriate measure of renal function for patients with body mass extremes or in patients with acute kidney failure. http://Comfy.Socialite/DHnkdep http://Comfy.com/DHMCnkf Blood specimen (specimen) 04/19/2017 1:15 PM EST 04/19/2017 1:36 PM EST Narrative Resulting Agency Comment Spec In Lab Imelda Durham APR[place] [address] documented in this encounter Visit Diagnoses Diagnosis Chronic systolic heart failure documented in this encounter Care Teams Deaf/Hard Of Hearing Specialist Relationship Specialty Start Date End Date Rustam Coppola MD [address] [place] [id number] PCP - General 06/30/13 05/30/18 documented as of this encounter
--- OUTSIDE RECORDS SUMMARY | 2024-01-03 13:12 | XMS_ITS | Encounter Summary ---
Author Organization [facility] [place] [address] Care Team Providers Care Business Machine Mechanic Name Role Phone Pietro Son Primary Care Provider [phone] Reason for Visit * Reason Comments Routine Visit * Auth/Cert Specialty Diagnoses / Procedures Referred By Contac t Referred To Contact Diagnoses Cardiomyopathy, peripartum, antepartum AND TUBAL Procedures PRO DELIVERY ONLY PRO REMOVAL OF FALLOPIAN TUBE @ DELIVERY (WRVU 16.13) @SALPINGECTOMY (WRVU 12.95) Referral ID Status Reason Start Date Expiration Date Visits Re quested Visits Authorized [id number] 1 1 Encounter Details Date Type Department Care Team ([facility] Contact Info) Description 01/14/2021 8:45 AM EDT Routine Obstetrics [place] [address] Rustam Hoffman MD [facility] DR OBSTETRICS [place] [address] GA: [id number] Social History Tobacco Use Types Packs/Day Years [...] Sign Reading Time Taken Comments Blood Pressure 112/68 01/14/2021 8:55 AM EDT Pulse - - Temperature - - Respiratory Rate - - Oxygen Saturation - - Inhaled Oxygen Concentration - - Weight 97.7 kg (215 lb 4.8 oz) 01/14/2021 8:55 A M EDT Height - - Body Mass Index 30.89 12/10/2020 9:19 AM EDT documented in this encounter Progress Notes * Rustam Hoffman MD - 01/14/2021 8:45 AM EDT 25 yo at 32w3d with cardiomyopathy and prior c/esction. Some increased swelling. Getting a bit short of breath. Last echo with EF of 54% Good activity. No bleeding or fluid. Some weight loss Covid vaccine? Pt plans on getting it. We discussed that the sooner she gets it, the more likely she can produce protective antibodies that will get to the fetus. Scheduled for repeat c/section on 03/03 Sterilization consents signed on 12/10/20 Echo today. Results pending. RTO 1-2 weeks. MD Jacquelyn Addendum: Echo shows dilated LV and EF down to 35%. Discussed with Dr. Márquez (01/16/2021). Plan to invite her in to the to start a course of betamethasone, NST and cardiology consultation. 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
--- OUTSIDE RECORDS SUMMARY | 2024-01-03 13:12 | XMS_ITS | Encounter Summary ---
Author [facility] [place] [address] Care Team Providers Care Solar Electric Practitioner Name Role Phone AmbreenChela benavides ISAI Primary Care Provider [phone] Encounter Details Date Type Department Care Team (Late st Contact Info) Description 07/30/2020 Orders Only Cardiology at [address] [address] Vicky Shepherd, RN Sinus tachycardia Social History Tobacco Use Types Packs/Day Years [...] 1:00 PM EST Appointment Non-Invasive [place] [address] Anton Márquez MD [facility] [place] [address] 01/27/2024 3:00 PM EST Office Visit Cardiology at [address] [address] Anton Márquez MD [facility] [place] [address] documented as of this encounter Results * EKG 12 Lead (09/27/2020 11:04 AM EDT) Ventricular rate 71 BPM MUSE SYSTEM Atrial Rate 71 BPM MUSE SYSTEM P-R Interval 142 ms MUSE SYSTEM QRS Duration 88 ms MUSE SYSTEM Q-T Interval 410 ms MUSE SYSTEM QTC Calculated (Bezet) 445 ms MUSE SYSTEM Calculated P [place] 34 degrees MUSE SYSTEM Calculated R [place] 52 degrees MUSE SYSTEM Calculated T [place] 38 degrees MUSE SYSTEM INTERPRETATION Normal sinus rhythm Normal ECG When compared with ECG of 02-AUG-2020 16:36, No significant change was found Confirmed by MD Janie, [facility] ([id number]) on 09/27/2020 12:56:27 PM MUSE SYSTEM 09/27/2020 11:0 4 AM EDT 09/27/2020 12:56 PM EDT Anton Márquez MD ECG ORDERABLES MUSE SYSTEM documented in this encounter Visit Diagnoses Diagnosis Sinus tachycardia Other specified cardiac dysrhythmias documented in this encounter Care Teams Solar Electric Practitioner Relationship Specialty Start Date End Date Chela Crook APRN [address], [facility] [address] [place] [address] PCP - General Family Medicine 05/31/18 08/14/20 documented as of this encounter
--- OUTSIDE RECORDS SUMMARY | 2024-01-03 13:12 | XMS_ITS | Encounter Summary ---
[place] [address] Care Team Providers Care Sleeve Setter Name Role Phone Pietro Son Primary Care Provider [phone] Encounter Details Date Type Department Care Team (Late st Contact Info) Description 01/16/2021 Telephone Cardiology at [address] [phone] Anton Márquez MD [facility] [place] [address] Social History Tobacco Use Types Packs/Day Years [...] encounter Miscellaneous Notes * Telephone Encounter - Anton Márquez MD - 01/16/2021 11:59 AM EDT Mary's condition was discussed with MFM (Dr. Hoffman). The expedited TTE shows worsening LVEF (45% to 35%) and dilation of her LV (reported dilation severe but needs to be confirmed in side by side comparison as LVEDVi was 77 and is now 69). She has gained 55lbs this and recently become symptomatic, writing in to my team about worsening LE edema and CAMPUZANO. Her Bps are consistently 100s systolic. Her cardiac medications this have thusfar have only been metoprolol XL 25mg daily. Plan: -Expedite plan to augment CHF regimen and bring her into [facility] for management of ADHF as well as forlung maturation with steroids in the event an early delivery is needed. -For medical therapy I was planning to trial digoxin pending renal function but hydralazine/nitratecombination could be used if there is suspicion for elevated SVR by exam findings etc -Will need assessment of intravascular volume status with JVD exam and proBNP and IVC ultrasound todose diuretics. -I have informed our cardiology consult fellow, consult attending, cardio- OB/service attending, CVCC attending, Cardio-OB anesthesia, and CHF attending of this planned admission. -Early engagement of Cardio-OB anesthesia on arrival (Dr. Alyx Greene) recommended. documented in this encounter Plan of Treatment Upcoming Encounters Date Type Department Care Team (Late st Contact Info) Description 01/27/2024 1:00 PM EST Appointment Non[place] [phone] Anton Márquez MD [facility] [place] [address] 01/27/2024 3:00 PM EST Office Visit Cardiology at [address] [phone] Anton Márquez MD [facility] [place] [address] documented as of this encounter Visit Diagnoses Not on filedocumented in this encounter Care Teams Sleeve Setter Relationship Specialty Start Date End Date Pietro Son PA [address] [place] [address] PCP - General Internal Medicine 09/27/20 documented as of this encounter
--- OUTSIDE RECORDS SUMMARY | 2024-01-03 13:12 | XMS_ITS | Encounter Summary ---
Author Organization [facility] [place] [address] Care Team Providers Care Automotive Tire Technician Name Role Phone Chela Crook APRN Primary Care Provider [phone] Encounter Details Date Type Department Care Team (Latest Contact Info) Description 05/31/2018 1:00 PM EDT Office Visit Cardiology at [address] [address] Imelda Durham APRN [facility] [place] [address] Chronic systolic heart failure; Pre-operative cardiovascular examination; Umbilical hernia without obstruction and without gangrene; Other cardiomyopathy Social History Tobacco Use Types [...] Sign Reading Time Taken Comments Blood Pressure 128/80 05/31/2018 1:07 PM EDT Pulse 80 05/31/2018 1:07 PM EDT Temperature - - Respiratory Rate - - Oxygen Saturation 100% 05/31/2018 1:07 PM EDT Inhaled Oxygen Concentration - - Weight 81.6 kg (180 lb) 05/31/2018 1:07 PM EDT Height - - Body Mass Index 26.58 04/19/2017 2:44 PM EST documented in this encounter Progress Notes * Imelda Durham APRN - 05/31/2018 1:00 PM EDT [facility] Section of Advanced Heart Failure Cardiology [facility] [place] [address] OUTPATIENT VISIT DATE: 05/31/18 OUTPATIENT VISIT TYPE: New Patient PRIMARY CARE PHYSICIAN: Chela Crook APRN REFERRING PHYSICIAN: None HISTORY OF PRESENT ILLNESS: This 21-year-old female presents for follow-up after [...] at that time. Wisam inhibitor and beta- sunihta were reinitiated. She returned for an attempted MRI which was unable to be completed. She was last seen 1 yr ago. BB and ACEi were reinitiated and then DC ACEi due to concerns re: birthcontrol and recent unprotected intercourse. Echo showed Nl LV size and function. Since last visit she reports self discontinuation of metoprolol and lisinopril because they made her tired and generally she felt unwell while on the medical therapy. Overall she is feeling well froma heart failure standpoint. She denies symptoms to include CAMPUZANO, edema, weight gain, orthopnea, PND.She occasionally has swelling in her hands or toes when she eats salty snack foods. She has had no c hest pain, syncope or presyncope. She has trialed multiple methods of control to include oral contraceptives, other hormonal contraceptives and Mirena IUD. All methods were unacceptable either to excessive bleeding or she had acervical puncture and early expulsion of her IUD. She currently is using condoms and would use planB if necessary. She plans to explore tubal ligation. She is not currently in a long-term committed relationship. 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 Due to heavy lifting she developed an umbilical hernia and is scheduled to have this repaired at [facility] on June [address] Phoenix RELEVANT CARDIAC HISTORY: ?? Diagnosed with a [...] ?? Low-dose metoprolol and lisinopril reinitiated March 2017 - subsequently self DCd due to fatigue OUTPATIENT MEDICATIONS: No current outpatient medications on file. ALLERGIES: No Known Allergies PAST MEDICAL HISTORY: [...] by Meri Zimmerman MD at [facility] MAIN OR FAMILY HISTORY: family history includes Cancer in her unknown relative; Coronary Artery Disease in her unknown relative; Type 2 Diabetes in her unknown relative. SOCIAL HISTORY: Social History Social History Narrative Unmarried. Lives in [place] with sons grandparents. Smoking MJ 3x per day - none X 1 month. No ETOH. No other drugs. REVIEW OF SYSTEMS: See HPI above for pertinent positives and negatives. All other ROS negative by system (including general, HEENT, pulmonary, gastrointestinal, genitourinary, musculoskeletal, endocrine, hematologic, extremity, skin, neurology, and psychiatric) with exceptions below. PHYSICAL EXAMINATION: VITALS: BP 128/80 Pulse 80 Wt 81.6 kg (180 lb) SpO2 100% BMI 26.58 kg/m?? GENERAL: Pleasant and in no acute distress. Well appearing. Carotid upstrokes are brisk and there are no carotid bruits. JVP is visualized and not elevated. Lungs are clear to auscultation bilaterally. Heart has a regular rate and rhythm with no murmurs rubs or gallops noted. Abdomen is soft and nontender. There is no AJR. Lower extremities are warm and she has no LE edema. Mood appropriate. LABS: Recent Labs 05/31/18 1127 NA 140 K 4.1 CL 104 CO2 26 BUN 10 CREATININE 0.84 GLUCOSE 71 ProBNP Date Value Ref Range Status 05/31/2018 61 <=125 pg/mL Final 03/29/2017 62 <=125 pg/mL Final 10/07/2013 438 (H) <=125 pg/mL Final CARDIOLOGY RELEVANT STUDIES: CXR EKG 03/2017: NSR 88 bpm. QRS 88 ms. Nl axis 05/2018 'NSR 77 bpm Nl [place]. No scute STT abn Holter monitor 06/2013: no arrhythmia Echo and [...] IMPRESSION / PLAN: Mary Porras is a 22 y.o. female with history as above, seen in the heart failure clinic todaywith the following impression and plan: 1. History of nonischemic dilated cardiomyopathy- last echo 1 year ago shows LVEF improved from 35%to 59% with normal LV size. 2. Chronic systolic heart failure. ACC/AHA stage C. NYHA functional class I. Euvolemic and well compensated on physical exam with virtually no heart failure symptoms. Currently on no medical therapy. discussed rationale for standard medical therapy. Strongly encouraged use of a more reliable control method and discouraged recurrent . 3. Preoperative cardiovascular evaluation for umbilical hernia repair. She is at acceptable cardiovascular risk to proceed with surgery this week. RECOMMEND: Regular exercise Reviewed dietary guidelines COUNSELING: The signs and symptoms to be [...] our office FOLLOW UP: 6 months with echo and labs IMELDA DURHAM APRN documented in this encounter Plan of Treatment Upcoming Encounters Date Type Department Care Team (Late st Contact Info) Description 01/27/2024 1:00 PM EST Appointment Non-Invasive [place] [phone] Anton Márquez MD [facility] [place] [address] 01/27/2024 3:00 PM EST Office Visit Cardiology at [address] [phone] Anton Márquez MD [facility] [address] [place], [place] [id number] documented as of this encounter Procedures Procedure Name Priority Date/Time Associated Diagnosis Comments EKG 12-LEAD Routine 05/31/2018 1:37 PM EDT Pre-operative cardiovascular examination Umbilical hernia without obstruction and without gangrene documented in this encounter Results * EKG 12 Lead (05/31/2018 1:37 PM EDT) Ventricular rate 77 BPM MUSE SYSTEM Atrial Rate 77 BPM MUSE SYSTEM P-R Interval 142 ms MUSE SYSTEM QRS Duration 90 ms MUSE SYSTEM Q-T Interval 388 ms MUSE SYSTEM QTC Calculated (Bezet) 439 ms MUSE SYSTEM Calculated P [place] 53 degrees MUSE SYSTEM Calculated R [place] 68 degrees MUSE SYSTEM Calculated T [place] 55 degrees MUSE SYSTEM INTERPRETATION Normal sinus rhythm with sinus arrhythmia Normal ECG When compared with ECG of 29-MAR-2017 15:05, No significant change was found Confirmed by MD Serrano Timothy ([id number]) on 05/31/2018 5:40:27 PM MUSE SYSTEM 05/31/2018 1:37 PM EDT 05/31/2018 5:40 PM EDT Imelda Durham MANAGER FAMILY ECG ORDERABLES MUSE SYSTEM * pro-Brain Natriuretic Peptide (05/31/2018 11:27 AM EDT) NT-proBNP 61 <=125 pg/mL [facility] Blood specimen (specimen) 05/31/2018 11:27 AM EDT 05/31/2018 11:32 AM EDT Narrative Resulting Agency Comment Spec In Lab Imelda Durham MANAGER FAMILY CHEMISTRY ORDERABLES [facility] [place] [address] * Basic Metabolic Panel (non-fasting) (05/31/2018 11:27 AM EDT) Glucose 71 65 - 199 mg/dL [facility] Comment:Diabetes: >=200 mg/d L plus symptoms Blood Urea Nitrogen 10 8 - 18 mg/dL [facility] Creatinine 0.84 0.70 - 1.20 mg/dL [facility] Sodium 140 135 - 145 mmol/L [facility] Potassium 4.1 3.5 - 5.0 mmol/L [facility] Comment: Please note: ??Patients with WBC >100,000 may have falsely elevated Potassium levels. ??For accurate Potassium quantification in these patients send serum separator tube (gold top) for subsequent determinations. ??Contact the Clinical Chemistry Laboratory if there are any questions. Chloride 104 98 - 107 mmol/L [facility] Carbon Dioxide 26 22 - 31 mmol/L [facility] Anion Gap 10 5 - 15 mmol/L [facility] Calcium 9.4 8.5 - 10.5 mg/dL [facility] Est Glomerular Filtration Rate 99 >=60 mL/min/1. 73 m?? [facility] Comment: The eGFR was calculated using the CKD-EPI equation. As with all creatinine based estimates of kidney function, eGFR values calculated with the CKD-EPI equation are not accurate in patients with acute kidney failure, extremes of body mass or the acutely ill. http://Intapp/DHMCnkf eGFR 115 >=60 mL/min/1. 73 m?? [facility] Comment: The eGFR was calculated using the CKD-EPI equation. As with all creatinine based estimates of kidney function, eGFR values calculated with the CKD-EPI equation are not accurate in patients with acute kidney failure, extremes of body mass or the acutely ill. http://Intapp/DHMCnkf Blood specimen (specimen) 05/31/2018 11:27 AM EDT 05/31/2018 11:32 AM EDT Narrative Resulting Agency Comment Spec In Lab Imelda Durham APRN CHEMISTRY ORDERAB[place] [address] documented in this encounter Visit Diagnoses Diagnosis Chronic systolic heart failure Pre-operative cardiovascular examination Umbilical hernia without obstruction and without gangrene Other cardiomyopathy documented in this encounter Care Teams Automotive Tire Technician Relationship Specialty Start Date End Date Chela Crook APRN [address], [facility] [address] [place] [phone] PCP - General Family Medicine 05/31/18 08/14/20 documented as of this encounter
--- OUTSIDE RECORDS SUMMARY | 2024-01-03 13:12 | XMS_ITS | Encounter Summary ---
[place] [address] Care Team Providers Care Re Examiner Name Role Phone Rustam Coppola MD Primary Care Provider [phone] Encounter Details Date Type Department Care Team (Latest Contact Info) Description 04/19/2017 12:30 PM EST Laboratory Appointment Lab [address] [place] [address] Chronic systolic heart failure Social History Tobacco [...] 1:00 PM EST Appointment Non-[place] [address] Anton Márquez MD [facility] [place] [address] 01/27/2024 3:00 PM EST Office Visit Cardiology at [address] [phone] Anton Márquez MD [facility] [place] [address] documented as of this encounter Procedures Procedure Name Priority Date/Time Associated Diagnosis Comments BASIC METABOLIC PANEL STAT 04/19/2017 1:15 PM EST Chronic systolic heart failure documented in this encounter Results * Basic Metabolic Panel (non-fasting) (04/19/2017 1:15 PM EST) Glucose 70 65 - 199 mg/dL [facility] Comment:Diabetes: >=200 mg/d L plus symptoms Blood Urea Nitrogen 10 8 - 18 mg/dL [facility] Creatinine 0.85 0.70 - 1.20 mg/dL [facility] Sodium 144 135 - 145 mmol/L [facility] Potassium 4.1 3.5 - 5.0 mmol/L [facility] Comment: Please note: ??Patients with WBC >100,000 may have falsely elevated Potassium levels. ??For accurate Potassium quantification in these patients send serum separator tube (gold top) for subsequent determinations. ??Contact the Clinical Chemistry Laboratory if there are any questions. Chloride 102 98 - 107 mmol/L [facility] Carbon Dioxide 29 22 - 31 mmol/L [facility] Anion Gap 13 5 - 15 mmol/L [facility] Calcium 9.3 8.5 - 10.5 mg/dL [facility] Est Glomerular Filtration Rate >60 >=60 [facility] Comment: The reported eGFR should be multiplied by 1.2 for patients. The MDRD is not an appropriate measure of renal function for patients with body mass extremes or in patients with acute kidney failure. http://Ostial Solutions.EpiVax/DHnkdep http://Ostial Solutions.com/[facility] SHAWNEEnkf Blood specimen (specimen) 04/19/2017 1:15 PM EST 04/19/2017 1:36 PM EST Narrative Resulting Agency Comment Spec In Lab Imelda Durham AIRCRAFT CAPTAIN [place] [address] documented in this encounter Visit Diagnoses Diagnosis Chronic systolic heart failure documented in this encounter Care Teams Re Examiner Relationship Specialty Start Date End Date Rustam Coppola MD [address] [place] [address] PCP - General 06/30/13 05/30/18 documented as of this encounter
--- OUTSIDE RECORDS SUMMARY | 2024-01-03 13:12 | XMS_ITS | Encounter Summary ---
Author Organization [place] [address] Care Team Providers Care Clothes Presser Name Role Phone Unknown Primary Care Provider Unavailabl e Reason for Visit * Reason Comments Routine Visit Encounter Details Date Type Department Care Team (Late st Contact Info) Description 09/04/2020 10:45 AM EDT Routine Obstetrics [place] [address] Abisai Borden MD [facility] [address] [place] [address] GA: 13w4d Social History Tobacco Use Types Packs/Day Years [...] Sign Reading Time Taken Comments Blood Pressure 104/64 09/04/2020 10:06 AM EDT Pulse - - Temperature - - Respiratory Rate - - Oxygen Saturation - - Inhaled Oxygen Concentration - - Weight 73.3 kg (161 lb 8 oz) 09/04/2020 10:06 AM EDT Height - - Body Mass Index 23.17 08/02/2020 4:23 PM EDT documented in this encounter Progress Notes * Abisai Borden MD - 09/04/2020 10:45 AM EDT 13w4d BP 104/64 Wt 73.3 kg (161 lb 8 oz) BMI 23.17 kg/m?? Possible movement. No contractions/ leaking fluid / bleeding / pain. No headache, vision changes, RUQ pain. No chest pain, no shortness of breath. Echocardiogram later today. Needs f/u appointment with Dr. Márquez to review results of echo. Plan for morphology evaluation in ~5 weeks. Abisai BORDEN MD documented in this encounter Plan of Treatment Upcoming Encounters Date Type Department Care Team (Late st Contact Info) Description 01/27/2024 1:00 PM EST Appointment Non-[place] [address] Anton Márquez MD [facility] [place] [address] 01/27/2024 3:00 PM EST Office Visit Cardiology at [address] [address] Anton Márquez MD [facility] [place] [address] documented as of this encounter Results * US OB Detailed [...] who have questions, please contact the health care nurse rn that requested your imaging first. ?Meri Zimmerman, Toolsmith Electronically Signed Final Report ?? 10/10/2020 11:30 am Narrative 10/10/2020 11:30 AM EDT OBSTETRICS REPORT ? (Signed Final 10/10/2020 11:30 am) PATIENT INFO: ID #: ? [id number] ?: ??[birth year] (25 yrs)(F) Name: ? LAYO Polo ?Visit Date: 10/10/2020 11:07 am ? JORDON PERFORMED BY: Performed By: ? Beth Blandon RDMS Attending: ?Erasmo MEDINA, Meri Olvera Referred By: ?Abisai BORDEN Location: ? [place] SERVICE(S) PROVIDED: [facility] - Detailed Morphology - [id number] ? [id number] INDICATIONS: 18 weeks gestation of ? Z3A.18 [...] SVC: ? Visualized Interventr. Septum: ?Visualized Cardiac Walker: ?Visualized Diaphragm: ? Visualized 3 Vessel View: [...] 10/10/2020 11:30 am) PATIENT INFO: ID #: [id number] : [birth year] (25 yrs)(F) Name: LAYO Polo Visit Date: 10/10/2020 11:07 am JORDON PERFORMED BY: Performed By: Beth Blandon RDMS Attending: Meri Zimmerman MD Referred By: Abisai OJEDA [facility] Location: [place] SERVICE(S) PROVIDED: [facility] - Detailed Morphology - [id number] INDICATIONS: 18 weeks gestation of Z3A.18 h/o [...] Visualized SVC: Visualized Interventr. Septum: Visualized Cardiac Walker: Visualized Diaphragm: Visualized 3 Vessel View: Visualized [...] who have questions, please contact the health care nurse rn that requested your imaging first. Meri Zimmerman, Toolsmith Electronically Signed Final Report 10/10/2020 11:30 am E Cami Borden MD IMG US OB ORDERAB LES documented in this encounter Visit Diagnoses Diagnosis 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 Single liveborn, born in hospital, delivered by section Single liveborn, born in hospital, delivered by delivery 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 Single liveborn, born in hospital, delivered by section Single liveborn, born in hospital, delivered by delivery documented in this encounter Care Teams Clothes Presser Relationship Specialty Start Date End Date Unknown None PCP - General 08/16/20 09/26/20 documented as of this encounter
--- OUTSIDE RECORDS SUMMARY | 2024-01-03 13:12 | XMS_ITS | Encounter Summary ---
[place] [address] Care Team Providers Care Farm Machinery Engine Mechanic Name Role Phone Unknown Primary Care Provider Unavailabl e Reason for Visit * Reason Comments Routine Visit * Consultation (Routine) - Closed Specialty Diagnoses / Procedures Referred By Contac t Referred To Contact Obstetrics and Gynecology Diagnoses Supervision of high risk in first trimester CARDIOMYOPATHY, HX HEART FAILURE Anton Márquez MD [facility] [place] [address] [facility] [place] [address] [place] [address] Referral ID Status Reason Start Date Expiration Date V isits Requested Visits Authorized [id number] Closed Consult, Test & Treat PCP Updated and/or Approved 08/04/2020 08/04/2021 6 6 Encounter Details Date Type Department Care Team (Late st Contact Info) Description 08/23/2020 11:15 AM EDT Initial Obstetrics [place] [address] Rustam Hoffman MD [facility] [place] [address] GA: 11w6d Social History Tobacco Use Types Packs/Day Years [...] Sign Reading Time Taken Comments Blood Pressure 112/65 08/23/2020 11:00 AM EDT Pulse 87 08/23/2020 11:00 AM EDT Temperature - - Respiratory Rate 16 08/23/2020 11:00 AM EDT Oxygen Saturation 100% 08/23/2020 11:00 AM EDT Inhaled Oxygen Concentration - - Weight 72.8 kg (160 lb 9.6 oz) 08/23/2020 11:00 AM EDT Height - - Body Mass Index 23.04 08/02/2020 4:23 PM EDT documented in this encounter Progress Notes * Rustam Hoffman MD - 08/23/2020 11:15 AM EDT Asked by Vicky Manuel CNM, to see this 25 yo at 11w6d with prior c/section and hx/o cardiomyopathy for [facility] visit. OB: Seen in [facility] for 2 visits. Not all of those records seem available. labs were drawn then. No bleeding. +FH today. 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 Treated with immunoglogulin at that time and has made slow improvements in her LV function over the years. She currently has alow normal EF and no symptoms of heart failure. Pt had a in 2013. She was induced at 36 weeks due to worsening cardiac symptoms. She ended up with a primary c/section due to nonreassuring status. PP course was complicated by worsening EF. She required inpatient diuresis. Her EF dropped as low as 35% during that hospitalization.. Her last visit in 2019 to [facility] cardiology, she had discontinued all heart meds. She had 2 1st trimester interruptions. She was seen by Dr. Márqeuz of cardiology recently (08/02) who reviewed with her the risks of continued , including worsening heart failure, progressive cardiomyopathy, dysrhythmias and maternal/ mortality. Last echo available to me is from 2017 with EF of 59% with normal global left ventricular systolic function. She hasn't had a recent echo. It has been ordered but not yet scheduled. A/P: Very high risk . Degree of risk will depend on current cardiac function. If the left ventricular function has deteriorated, the risks of continuing will be dramatically increased. Of course, even if the left ventricular function continues to be in the low normal range, thereis a significant chance of peripartum deterioration. Although she ultimately did well in 2013, there is no guarantee that she will have as good an outcome. If she continues the , she will probably be best served by a planned repeat c/section. Mary seems quite committed to continuing the in spite of the risks. Maternal echo is scheduled for 09/04/2020 with follow up [facility] visit at that time. Should she decide to continue the (which I think is likely), she may be a candidate for [facility] model of care, but with ultimate delivery at [facility]. MD Jacquelyn 20 minutes of this 30 minute consultation was spent directly counseling the patient. documented in this encounter Plan of Treatment Upcoming Encounters Date Type Department Care Team (Late st Contact Info) Description 01/27/2024 1:00 PM EST Appointment Non[place] [address] Anton Márquez MD [facility] [place] [address] 01/27/2024 3:00 PM EST Office Visit Cardiology at [address] [address] Anton Márquez MD [facility] [place] [address] documented as of this encounter Procedures Procedure Name Priority Date/Time Associated Diagnosis Comments HC URINE CULTURE Routine 08/23/2020 11:1 5 AM EDT 12 weeks gestation of POCT URINE DIPSTICK Routine 08/23/2020 12 weeks gestation of documented in this encounter Results * Urine culture Clean Catch Urine (08/23/2020 11:15 AM EDT) Urine Culture 1,000-9,000 cfu/ml Insignificant growth [facility] Clean Catch Urine 08/23/2020 11:15 AM EDT 08/23/2020 2:14 PM EDT Narrative Resulting Agency Comment Spec In Lab Rustam Hoffman MD MICROBIOLOGY - GENER AL ORDERABLES [facility] [place] [id number] * POCT urine dipstick (08/23/2020) POC Sp Marshall 1.01 1.002 - 1.030 POC pH, UA 7 5.0 - 8.5 POC Leuk, UA neg Negative - Negative POC Nitrite, UA neg Negative - Negative POC Protein, UA neg Negative - Negative mg/dL POC Glucose, UA norm Normal - Normal mg/dL POC Ketone, UA neg Negative - Negative POC Urobil, UA norm 0.2 - 1.0 mg/dL POC Bili, UA neg Negative - Negative POC Blood, UA 7 Negative - Negative carmella/uL Rustam Hoffman MD POINT OF CARE TEST O RDERABLES documented in this encounter Visit Diagnoses Diagnosis 12 weeks gestation of state, incidental 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 documented in this encounter Care Teams Farm Machinery Engine Mechanic Relationship Specialty Start Date End Date Unknown None PCP - General 08/16/20 09/26/20 documented as of this encounter
--- OUTSIDE RECORDS SUMMARY | 2024-01-03 13:12 | XMS_ITS | Encounter Summary ---
[place] [address] Care Team Providers Care Hairpiece Stylist Name Role Phone Pietro Son Primary Care Provider [phone] Encounter Details Date Type Department Care Team (Late st Contact Info) Description 12/20/2020 Telephone Obstetrics [place] [address] Rivka Nichole RN Social History [...] Telephone Encounter - Rivka Nichole RN - 12/20/2020 1:39 PM EDT Called to patient after recvieving mydh message re: decreased movement. Left vm for patient to call office. documented in this encounter Plan of Treatment Upcoming Encounters Date Type Department Care Team (Late st Contact Info) Description 01/27/2024 1:00 PM EST Appointment Non-Invasive [place] [phone] Anton Márquez MD [facility] [place] [address] 01/27/2024 3:00 PM EST Office Visit Cardiology at [address] [phone] Anton Márquez MD [facility] [place] [address] documented as of this encounter Visit Diagnoses Not on filedocumented in this encounter Care Teams Hairpiece Stylist Relationship Specialty Start Date End Date Pietro Son PA [address] [place] [address] PCP - General Internal Medicine 09/27/20 documented as of this encounter
--- OUTSIDE RECORDS SUMMARY | 2024-01-03 13:12 | XMS_ITS | Encounter Summary ---
[place] [address] Care Team Providers Care Traveling Missionary Name Role Phone Pietro Son Primary Care Provider [phone] Encounter Details Date Type Department Care Team (Late st Contact Info) Description 01/15/2021 Telephone Cardiology at [address] [address] Ariela Solo, RN Social History [...] Telephone Encounter - Ariela Solo RN - 01/15/2021 4:32 PM EDT Called Ms Dixon to convey DR Márquez's message stating her EF has dropped to 35% by [place]ocardi[place] [facility] [place]. Please advise that Dr Márquez would like to start Ms Dixon on Digoxin, see note: It looks like this patient's LV ejection fraction has decreased to 35%, which explains her swellingand weight gain. I'd like to add digoxin to her regimen, but I need her to get the labs I ordered (BMP, proBNP). She lives near [facility], so she can go there to get these, ideally today or tomorrow so I can see the results and get her on the digoxin. I NEED to know her renal function before she should start this drug. Plan: Can you call her to tell her that her heart failure is worsening and we need to increase her medications. Tell her to get labs done today or tomorrow near home and fax the lab slips wherever she'd like to go. Once I see that her kidney function is normal I will start her on digoxin, which I orderedto her pharmacy already. Next week, she should DEFINITELY come in for our visit and have labs on the way in (I ordered a digoxin level and BMP). VM message left asking Ms Porras to call [facility] team and let us know where she would like her blood work done, and we will fax for her, hopefully to have drawn tomorrow, if possible. Ariela Solo (Jodie) RN, BSN [facility] documented in this encounter Plan of Treatment Upcoming Encounters Date Type Department Care Team (Late st Contact Info) Description 01/27/2024 1:00 PM EST Appointment Non-[place] [address] Anton Márquez MD [facility] [place] [address] 01/27/2024 3:00 PM EST Office Visit Cardiology at [address] [phone] Anton Márquez MD [facility] [place] [address] documented as of this encounter Visit Diagnoses Not on filedocumented in this encounter Additional Health Concerns Infection Onset Date Last Indicated Resolved Time Rule Out COVID-19 01/23/2021 01/23/2021 01/23/2021 5:16 PM EST documented as of this encounter Care Teams Traveling Missionary Relationship Specialty Start Date End Date Pietro Son PA [address] [place] [address] PCP - General Internal Medicine 09/27/20 documented as of this encounter
--- OUTSIDE RECORDS SUMMARY | 2024-01-03 13:12 | XMS_ITS | Encounter Summary ---
[place] [address] Care Team Providers Care Can Crimper Name Role Phone Chela Crook APRN Primary Care Provider [phone] Encounter Details Date Type Department Care Team (Late Contact Info) Description 08/07/2020 Telephone Non-Invasive [place] [address] Belen Ibarra Social History Tobacco Use Types Packs/Day Years [...] encounter Miscellaneous Notes * Telephone Encounter - Belen Ibarra - 08/07/2020 8:23 AM EDT Called patient again and left multiple messages again on multiple phones. documented in this encounter Plan of Treatment Upcoming Encounters Date Type Department Care Team (Late Contact Info) Description 01/27/2024 1:00 PM EST Appointment Non-Invasive [place] [address] Anton Márquez MD [facility] [place] [address] 01/27/2024 3:00 PM EST Office Visit Cardiology at [address] [address] Anton Márquez MD [facility] [place] [address] documented as of this encounter Visit Diagnoses Not on filedocumented in this encounter Care Teams Can Crimper Relationship Specialty Start Date End Date Chela Crook APRN [address] [place] [address] PCP - General Family Medicine 05/31/18 08/14/20 documented as of this encounter
--- OUTSIDE RECORDS SUMMARY | 2024-01-03 13:12 | XMS_ITS | Encounter Summary ---
[place] [address] Care Team Providers Care Tungsten Refiner Name Role Phone Unknown Primary Care Provider Unavailabl e Reason for Visit * Reason Onset Date Comments Medication Refill 09/05/2020 Encounter Details Date Type Department Care Team (Late st Contact Info) Description 09/05/2020 Refill Cardiology at [address] [address] Anton Márquez MD [facility] [place] [address] Medication Refill Social History Tobacco Use Types [...] 1:00 PM EST Appointment Non-[place]vasive [place] [address] Anton Márquez MD [facility] [place] [address] 01/27/2024 3:00 PM EST Office Visit Cardiology at [address] [address] Anton Márquez MD [facility] [place] [address] documented as of this encounter Visit Diagnoses Diagnosis Chronic systolic heart failure 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 documented in this encounter Care Teams Tungsten Refiner Relationship Specialty Start Date End Date Unknown None PCP - General 08/16/20 09/26/20 documented as of this encounter
--- OUTSIDE RECORDS SUMMARY | 2024-01-03 13:12 | XMS_ITS | Encounter Summary ---
Author Organization [facility] [place] [address] Care Team Providers Care Glass Glazier Name Role Phone Rustam Coppola MD Primary Care Provider + [phone] Reason for Referral * Diagnostic Test (Routine) - Closed Specialty Diagnoses / Procedures Referred By Marvin vo Referred To Contact Cardiology Diagnoses Other cardiomyopathy Procedures Echocardiogram Transthoracic(Leb) Imelda Durham APRN [facility] [place] [address] [facility] [place] [address] Referral ID Status Reason Start Date Expiration Date V isits Requested Visits Authorized [id number] Closed Specialty Service Requested 04/07/2017 07/06/2017 1 1 Reason for Visit * Reason Comments Shortness of Breath Encounter Details Date Type Department Care Team (Late st Contact Info) Description 03/29/2017 3:20 PM EST Office Visit Cardiology at [address] [address] Imelda Durham APRN [facility] [place] [address] Other cardiomyopathy; Chronic systolic heart failure Social History Tobacco [...] Sign Reading Time Taken Comments Blood Pressure 112/72 03/29/2017 2:57 PM EST Pulse 91 03/29/2017 2:57 PM EST Temperature - - Respiratory Rate - - Oxygen Saturation 97% 03/29/2017 2:57 PM EST room air Inhaled Oxygen Concentration - - Weight 76.2 kg (168 lb) 03/29/2017 2:57 PM EST Height 175.3 cm (5' 9) 03/29/2017 2:57 PM EST Body Mass Index 24.81 03/29/2017 2:57 PM EST documented in this encounter Patient Instructions * Patient Instructions* Imelda Durham APRN - 03/29/2017 3:20 PM EST Begin metoprolol 25 mg daily at night If ok after 3-4 days on metoprolol start lisinopril 2.5 mg daily in the morning documented in this encounter Progress Notes * Imelda Durham APRN - 03/29/2017 3:20 PM EST Images from the original note were not included. [facility] Section of Advanced Heart Failure Cardiology [facility] [place] [address] [address] OUTPATIENT VISIT DATE: 03/29/17 OUTPATIENT VISIT TYPE: New Patient PRIMARY CARE PHYSICIAN: Rustam Coppola MD REFERRING PHYSICIAN: None CHIEF COMPLAINT: Chief Complaint Patient presents with ??? Shortness of Breath HISTORY OF PRESENT ILLNESS: This 21-year-old female [...] now 5 years old. She is living [facility] with her son's grandparents (son's [...] condoms. She has plans to visit er HEALTH PLAN SPECIALIST soon and initiate NuvaRing. RELEVANT CARDIAC HISTORY: ?? Diagnosed with a [...] - says that they make her tired. OUTPATIENT MEDICATIONS: No current outpatient prescriptions on file. ALLERGIES: No Known Allergies PAST [...] DELIVERY performed by Meri Zimmerman MD at [facility] MA[facility] OR FAMILY HISTORY: family history is not on file. SOCIAL HISTORY: Social History Social History Narrative Unmarried. Lives in [facility] with sons grandparents. Smoking MJ 3x per day - none X 1 month. No ETOH. No other drugs. REVIEW OF SYSTEMS: See HPI above for pertinent positives and negatives. All other ROS negative by system (including general, HEENT, pulmonary, gastrointestinal, genitourinary, musculoskeletal, endocrine, hematologic, extremity, skin, neurology, and psychiatric) with exceptions below. PHYSICAL EXAMINATION: VITALS: BP 112/72 Pulse 91 Ht 175.3 cm (5' 9) Wt 76.2 kg (168 lb) SpO2 97% Comment: room air BMI 24.81 kg/m2 GENERAL: Pleasant and in no acute distress. Well appearing HEENT: PERRL, anicteric sclerae, no injection. Throat clear. NECK: Supple with full ROM. No LAD. Trachea midline. Normal thyroid no masses noted. JVP visualizedand is not elevated. CARDIAC: No abnormal precordial movements. RRR with normal S1 and S2. No murmurs, rub, or gallops noted. VASCULAR: Normal carotid upstroke, no bruits. Normal radial pulse b/l. Normal DP and PT pulses b/l. PULMONARY: symmetrical expansion. Clear lungs bilaterally. ABDOMEN: Positive bowel sounds. Soft, NT, ND. No rebound or guarding. No masses or hepatosplenomegaly. EXTREMITY: Warm and well perfused. No clubing, cyanosis. No edema. No erythema. SKIN: No concerning lesions noted on areas of skin visualized during exam. LYMPHATICS: No cervical or supraclavicular lymphadenopathy noted. NEUROLOGICAL: Alert and oriented to person, place, date. PSYCH: Mood appropriate. LABS: Recent Labs 03/29/17 1448 NA 143 K 4.2 CL 100 CO2 23 BUN 8 CREATININE 0.72 GLUCOSE 81 ProBNP Date Value Ref Range Status 03/29/2017 [...] 6.1 . RV nl size and fx Stress test Coronary Angiography Right Heart Catheterization [...] and plan: 1. 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 2. Chronic systolic heart failure. ACC/AHA stage C. NYHA functional class II. Though she does describe symptoms that can be associated with heart failure she looks euvolemic on physical exam. Will begin to reinitiate standard heart failure medical therapy. Discussed rationale for standard medical therapy, briefly discussed prophylactic ICD should LVEF remain at 35% or below. Discussed compliance with low-sodium diet and frequent weight monitoring. Strongly encouraged use of a more reliable control method and discouraged recurrent . RECOMMEND: Begin metoprolol succinate 25 mg daily at night If feeling ok after 3-4 days on metoprolol start lisinopril 2.5 mg daily in the morning Update echocardiogram Strict use of contraception F/U on day of echo COUNSELING: The signs and symptoms to be [...] When to call our office FOLLOW UP: On day of echo IMELDA DURHAM APRN documented in this encounter Plan of Treatment Upcoming Encounters Date Type Department Care Team (Late st Contact Info) Description 01/27/2024 1:00 PM EST Appointment Non-[place]vasive [place] [phone] Anton Márquez MD [facility] [place] [address] 01/27/2024 3:00 PM EST Office Visit Cardiology at [address] [phone] Anton Márquez MD [facility] [place] [address] documented as of this encounter Procedures Procedure Name Priority Date/Time Associated Diagnosis Comments EKG 12-LEAD Routine 03/29/2017 3:05 PM EST Other cardiomyopathy documented in this encounter Results * ECHO COMPLETE (04/19/2017 1:52 PM EST) EF 59 HEARTLAB SYSTEM Anatomical Region Laterality Modality Other 04/19/2017 Narrative 04/19/2017 2:07 PM EST Procedure: ?Transthoracic Echocardiogram Patient: ?JORDON VASQUES C ? (Age): 1995(21y) Med Rec#: ? [id number] ?Sex: ?F ? Site Loc: ? [facility] ?Ht / Wt: ??174(cm)/106(kg) Pt. Loc: ?Echo Lab ?BSA: ?2.2 Study Date: ?? 04/19/2017 ?Pt. Type: Outpatient Tape: ? Referring: Imelda Durham Reading: Boone Serrano ([id number]) Strategic Sourcing Manager: Bushra Tompkins [facility] Diagnosis: *ICD-10-PCS Cardiomyopathy, unspecified (I42.9) Indication: ?? Cardiomyopathy Rhythm: ? Sinus BP: ? 98/45 HR: ? 67 SUMMARY: 1. There is normal global left ventricular systolic function. ??The quantitative left ventricular ejection fraction by biplane Higginbotham's method is 59%. ??There are no left ventricular segmental wall motion abnormalities. 2. Right ventricular chamber size, wall thickness, and systolic function are within normal limits. 3. The cardiac valves appear structurally and functionally normal. 4. See remainder of report for additional findings. Findings ? : Left Ventricle: ? The left ventricular chamber size is normal. ?Left ventricular wall thickness is normal. ?There is no evidence of LVOT obstruction. ?No ventricular septal defect is visualized. ?There is normal global left ventricular systolic function. ?The quantitative left ventricular ejection fraction by biplane Higginbotham's method is 59%. ?There are no left ventricular segmental wall motion abnormalities. ?Doppler assessment is consistent with normal left sided filling pressure. Left Atrium: ? The left atrium is normal in size. 20 ml/m2. ?No atrial septal defect is visualized. Right Ventricle: ? Right ventricular chamber size, wall thickness, and systolic function are within normal limits. ?The estimated pulmonary artery systolic pressure is 25 mmHg. ?The estimated right atrial pressure is 3 mmHg. Right Atrium: ? The right atrium appears normal. Aortic Valve: ? The aortic valve is trileaflet. The leaflets are thin with normal excursion. There is no aortic stenosis or regurgitation present. Mitral Valve: ? The mitral valve appears normal in structure and function. ?There is no evidence of mitral valve leaflet prolapse. ?There is trace mitral regurgitation present. Tricuspid Valve: ? The tricuspid valve appears normal in structure and function. ?There is trace tricuspid regurgitation present. Pulmonic Valve: ? The pulmonic valve appears normal in structure and function. Pericardium: ? The pericardium appears normal and there is no evidence of a pericardial effusion. Aorta: ? The aortic root is normal in size. ?The ascending aorta is normal in size. ?There is no evidence of coarctation of the aorta. Pulmonary Artery: ? The main pulmonary artery appears normal. Venous: ? The inferior vena cava appears normal in size. ?There is a greater than 50% respiratory change in the inferior vena cava dimension. Misc: ? See remainder of report for additional findings. ?Two-dimensional echo, spectral Doppler and color Doppler performed. ?Myocardial Strain Imaging Chambers MM ?Value ?Units (Range) ? IVSd (MM) ? 0.8 ?cm (0.3 - 1.1) ? LVPWd (MM) ?1 ?cm (0.6 - 1.1) ? IVS:LVPW ratio ?0.9 ?ratio ? LVIDs (MM) ?3.9 ?cm (2.3 - 3.9) ? LVIDd (MM) ?5.5 ?cm (2.7 - 5.6) ? LVIDd (MM) index ?2.5 ?cm/m2 ? LVIDs (MM) index ?1.8 ?cm/m2 ? LV FS (MM) ?31 ? % (28 - 42) ? Chambers 2D ?Value ?Units (Range) ? IVSd (2D) ? 0.7 ?cm ? LVPWd (2D) ?0.7 ?cm ? IVS:LVPW ratio (2D) 1 ?ratio ? RWT (2D) ?0.3 ?ratio ? RWT PW (2D) ? 0.3 ?ratio ? LVIDd (2D) ?5.5 ?cm ? LVIDs (2D) ?4.1 ?cm ? LVIDd (2D) index ?2.5 ?cm/m2 ? LVIDs (2D) index ?1.8 ?cm/m2 ? LV FS (2D) ?26 ? % ? EF Teichholz (2D) ?? 51 ? % ? Ao root diameter (2D3 ?cm (2.1 - 3.6) ? Ascending Ao ?2.3 ?cm (2 - 3.5) ? Volumes/Mass ?Value ?Units (Range) ? LA Area 4 CH ?14 ? cm2 (<21) ? LA ESV BP (A/L) inde20.2 ? ml/m2 ? RA AREA 4CH ? 13 ? cm2 ? LA ESV BP (MOD) inde20 ? ml/m2 ? LV ESV SP 4CH (MOD) 57.7 ? ml ? LV ESV SP 2CH (MOD) 52.4 ? ml ? LV EDV BP ? 134.9 ?ml ? LV ESV BP ? 55.8 ? ml ? LV EDV BP index ? 61.3 ? ml/m2 ? LV ESV BP index ? 25.4 ? ml/m2 ? BP EF (MOD) ? 59 ? % ? Global Longiitudinal-17.5 ?% (-30 - -10) ? LV mass (MM) ?187.9 ?g ? LV mass (MM) index ??85.4 ? g/m2 ? LV mass (2D) ?135.5 ?g ? LV mass (2D) index ??61.6 ? g/m2 ? Diastolic/Systolic Function ?Value ?Units (Range) ? MV E-wave Vmax ?0.9 ?m/sec ? MV deceleration cgsr491.2 ?msec ? MV A-wave Vmax ?0.8 ?m/sec ? MV E:A ratio ?1.3 ?ratio ? LV septal e' Vmax ?? 0.1 ?m/sec ? LV lateral e' Vmax ??0.1 ?m/sec ? LV average e' Vmax ??0.1 ?m/sec ? LV E:e' septal ratio7.2 ?ratio ? LV E:e' lateral rati6.7 ?ratio ? LV average E:e' rati6.7 ?ratio ? Aortic Valve ?Value ?Units (Range) ? AV Vmax ? 1 ?m/sec ? AV peak gradient ?3.8 ?mmHg ? LVOT Vmax ? 0.9 ?m/sec ? LVOT peak gradient ??3.4 ?mmHg ? DOI (Vmax) ?0.9 ?ratio ? Tricuspid Valve ?Value ?Units (Range) ? TAPSE ? 2 ?cm ? RV lateral s' Vmax ??0.2 ?m/sec ? TR Vmax ? 2.4 ?m/sec ? TR peak gradient ?22.2 ? mmHg ? RAP ? 3 ?mmHg ? RVSP ?25 ? mmHg ? Wall Motion: Segment Name ?Rest ? Base-Anteroseptal ?? Normal ? Base-Anterior ? Normal ? Base-Anterolateral ??Normal ? Base-Posterolateral Normal ? Base-Inferior ? Normal ? Base-Inferoseptal ?? Normal ? Mid-Anteroseptal ?Normal ? Mid-Anterior ?Normal ? Mid-Anterolateral ?? Normal ? Mid-Posterolateral ??Normal ? Mid-Inferior ?Normal ? Mid-Inferoseptal ?Normal ? Buhl-Septal ? Normal ? Buhl-Anterior ? Normal ? Buhl-Lateral ?Normal ? Buhl-Inferior ? Normal ? Buhl-Tip ?Normal ? This report has been electronically signed by: Boone Serrano M.D. ? 04/19/2017 14:07:22 Images reviewed and interpretation verified [facility] Procedure Note Boone Serrano MD - 04/19/2017 Procedure: Transthoracic Echocardiogram Patient: JORDON DE LUNA(Age): 1995(21y) Med Rec#: [id number] Sex: F [place] Loc: [facility] Ht / Wt: 174(cm)/106(kg) Pt. Loc: Echo Lab BSA: 2.2 Study Date: 04/19/2017 Pt. Type: Outpatient Tape: Referring: Imelda Durham Reading: Boone Serrano ([id number]) Strategic Sourcing Manager: Bushra Tompkins JAYANT Diagnosis: *ICD-10-PCS Cardiomyopathy, unspecified (I42.9) Indication: Cardiomyopathy Rhythm: Sinus BP: 98/45 HR: 67 SUMMARY: 1. There is normal global left ventricular systolic function. The quantitative left ventricular ejection fraction by biplane Higginbotham's method is 59%. There are no left ventricular segmental wall motion abnormalities. 2. Right ventricular chamber size, wall thickness, and systolic function are within normal limits. 3. The cardiac valves appear structurally and functionally normal. 4. See remainder of report for additional findings. Findings : Left Ventricle: The left ventricular chamber size is normal. Left ventricular wall thickness is normal. There is no evidence of LVOT obstruction. No ventricular septal defect is visualized. There is normal global left ventricular systolic function. The quantitative left ventricular ejection fraction by biplane Higginbotham's method is 59%. There are no left ventricular segmental wall motion abnormalities. Doppler assessment is consistent with normal left sided filling pressure. Left Atrium: The left atrium is normal in size. 20 ml/m2. No atrial septal defect is visualized. Right Ventricle: Right ventricular chamber size, wall thickness, and systolic function are within normal limits. The estimated pulmonary artery systolic pressure is 25 mmHg. The estimated right atrial pressure is 3 mmHg. Right Atrium: The right atrium appears normal. Aortic Valve: The aortic valve is trileaflet. The leaflets are thin with normal excursion. There is no aortic stenosis or regurgitation present. Mitral Valve: The mitral valve appears normal in structure and function. There is no evidence of mitral valve leaflet prolapse. There is trace mitral regurgitation present. Tricuspid Valve: The tricuspid valve appears normal in structure and function. There is trace tricuspid regurgitation present. Pulmonic Valve: The pulmonic valve appears normal in structure and function. Pericardium: The pericardium appears normal and there is no evidence of a pericardial effusion. Aorta: The aortic root is normal in size. The ascending aorta is normal in size. There is no evidence of coarctation of the aorta. Pulmonary Artery: The main pulmonary artery appears normal. Venous: The inferior vena cava appears normal in size. There is a greater than 50% respiratory change in the inferior vena cava dimension. Misc: See remainder of report for additional findings. Two-dimensional echo, spectral Doppler and color Doppler performed. Myocardial Strain Imaging Chambers MM Value Units (Range) IVSd (MM) 0.8 cm (0.3 - 1.1) LVPWd (MM) 1 cm (0.6 - 1.1) IVS:LVPW ratio 0.9 ratio LVIDs (MM) 3.9 cm (2.3 - 3.9) LVIDd (MM) 5.5 cm (2.7 - 5.6) LVIDd (MM) index 2.5 cm/m2 LVIDs (MM) index 1.8 cm/m2 LV FS (MM) 31 % (28 - 42) Chambers 2D Value Units (Range) IVSd (2D) 0.7 cm LVPWd (2D) 0.7 cm IVS:LVPW ratio (2D) 1 ratio RWT (2D) 0.3 ratio RWT PW (2D) 0.3 ratio LVIDd (2D) 5.5 cm LVIDs (2D) 4.1 cm LVIDd (2D) index 2.5 cm/m2 LVIDs (2D) index 1.8 cm/m2 LV FS (2D) 26 % EF Teichholz (2D) 51 % Ao root diameter (2D3 cm (2.1 - 3.6) Ascending Ao 2.3 cm (2 - 3.5) Volumes/Mass Value Units (Range) LA Area 4 CH 14 cm2 (<21) LA ESV BP (A/L) inde20.2 ml/m2 RA AREA 4CH 13 cm2 LA ESV BP (MOD) inde20 ml/m2 LV ESV SP 4CH (MOD) 57.7 ml LV ESV SP 2CH (MOD) 52.4 ml LV EDV BP 134.9 ml LV ESV BP 55.8 ml LV EDV BP index 61.3 ml/m2 LV ESV BP index 25.4 ml/m2 BP EF (MOD) 59 % Global Longiitudinal-17.5 % (-30 - -10) LV mass (MM) 187.9 g LV mass (MM) index 85.4 g/m2 LV mass (2D) 135.5 g LV mass (2D) index 61.6 g/m2 Diastolic/Systolic Function Value Units (Range) MV E-wave Vmax 0.9 m/sec MV deceleration [id number] msec MV A-wave Vmax 0.8 m/sec MV E:A ratio 1.3 ratio LV septal e' Vmax 0.1 m/sec LV lateral e' Vmax 0.1 m/sec LV average e' Vmax 0.1 m/sec LV E:e' septal ratio7.2 ratio LV E:e' lateral rati6.7 ratio LV average E:e' rati6.7 ratio Aortic Valve Value Units (Range) AV Vmax 1 m/sec AV peak gradient 3.8 mmHg LVOT Vmax 0.9 m/sec LVOT peak gradient 3.4 mmHg DOI (Vmax) 0.9 ratio Tricuspid Valve Value Units (Range) TAPSE 2 cm RV lateral s' Vmax 0.2 m/sec TR Vmax 2.4 m/sec TR peak gradient 22.2 mmHg RAP 3 mmHg RVSP 25 mmHg Wall Motion: Segment Name Rest Base-Anteroseptal Normal Base-Anterior Normal Base-Anterolateral Normal Base-Posterolateral Normal Base-Inferior Normal Base-Inferoseptal Normal Mid-Anteroseptal Normal Mid-Anterior Normal Mid-Anterolateral Normal Mid-Posterolateral Normal Mid-Inferior Normal Mid-Inferoseptal Normal Buhl-Septal Normal Buhl-Anterior Normal Buhl-Lateral Normal Buhl-Inferior Normal Buhl-Tip Normal This report has been electronically signed by: Boone Serrano M.D. 04/19/2017 14:07:22 Images reviewed and interpretation verified [facility] Imelda Durham APRN ECHO ORDERABLES * EKG 12 Lead (03/29/2017 3:05 PM EST) Ventricular rate 88 BPM MUSE SYSTEM Atrial Rate 88 BPM MUSE SYSTEM P-R Interval 138 ms MUSE SYSTEM QRS Duration 88 ms MUSE SYSTEM Q-T Interval 372 ms MUSE SYSTEM QTC Calculated (Bezet) 450 ms MUSE SYSTEM Calculated P [place] 51 degrees MUSE SYSTEM Calculated R [place] 69 degrees MUSE SYSTEM Calculated T [place] 50 degrees MUSE SYSTEM INTERPRETATION Normal sinus rhythm Normal ECG When compared with ECG of 17-AUG-2014 10:09, T wave amplitude has increased in Anterior leads Confirmed by MD Linares Gregory A. ([id number]) on 03/30/2017 5:27:57 PM MUSE SYSTEM 03/29/2017 3:05 PM EST 03/30/2017 5:27 PM EST Imelda Durham APRN ECG ORDERABLES MUSE SYSTEM * pro-Brain Natriuretic Peptide (03/29/2017 2:48 PM EST) NT-proBNP 62 <=125 pg/mL [facility] Blood specimen (specimen) 03/29/2017 2:48 PM EST 03/29/2017 2:52 PM EST Narrative Resulting Agency Comment Spec In Lab Imelda Durham APRN CHEMISTRY ORDERABLES [facility] [place] [address] * (ABNORMAL) Basic Metabolic Panel (non-fasting) (03/29/2017 2:48 PM EST) Glucose 81 65 - 199 mg/dL [facility] Comment:Diabetes: >=200 mg/d L plus symptoms Blood Urea Nitrogen 8 8 - 18 mg/dL [facility] Creatinine 0.72 0.70 - 1.20 mg/dL [facility] Sodium 143 135 - 145 mmol/L [facility] Potassium 4.2 3.5 - 5.0 mmol/L [facility] Comment: Please note: ??Patients with WBC >100,000 may have falsely elevated Potassium levels. ??For accurate Potassium quantification in these patients send serum separator tube (gold top) for subsequent determinations. ??Contact the Clinical Chemistry Laboratory if there are any questions. Chloride 100 98 - 107 mmol/L [facility] Carbon Dioxide 23 22 - 31 mmol/L [facility] Anion Gap 20(H) 5 - 15 mmol/L [facility] Calcium 9.6 8.5 - 10.5 mg/dL [facility] Est Glomerular Filtration Rate >60 >=60 [facility] Comment: The reported eGFR should be multiplied by 1.2 for patients. The MDRD is not an appropriate measure of renal function for patients with body mass extremes or in patients with acute kidney failure. http://[employer].Nitronex/DHnkdep http://[employer].Nitronex/DHMCnkf Blood specimen (specimen) 03/29/2017 2:48 PM EST 03/29/2017 2:52 PM EST Narrative Resulting Agency Comment Spec In Lab Imelda Durham APRN CHEMISTRY ORDERABLES Performing Organization Address City/State/[facility] Co de Phone Number [facility] [place] [address] documented in this encounter Visit Diagnoses Diagnosis Other cardiomyopathy Chronic systolic heart failure Other cardiomyopathy documented in this encounter Care Teams Glass Glazier Relationship Specialty Start Date End Date Rustam Coppola MD [address] [place] [id number] PCP - General 06/30/13 05/30/18 documented as of this encounter
--- OUTSIDE RECORDS SUMMARY | 2024-01-03 13:12 | XMS_ITS | Encounter Summary ---
Author Organization [facility] [place] [address] Care Team Providers Care Greenhouse Specialist Name Role Phone Rustam Coppola MD Primary Care Provider [phone] Encounter Details Date Type Department Care Team (Latest Contact Info) Description 03/29/2017 2:30 PM EST Laboratory Appointment Lab [address] [place] [address] Other cardiomyopathy Social History Tobacco Use Types [...] 1:00 PM EST Appointment Non-[place] [address] Anton Márquez MD [facility] [place] [address] 01/27/2024 3:00 PM EST Office Visit Cardiology at [address] [phone] Anton Márquez MD [facility] [place] [address] documented as of this encounter Procedures Procedure Name Priority Date/Time Associated Diagnosis Comments PRO-BRAIN NATRIURETIC PEPTIDE STAT 03/29/2017 2:48 PM EST Other cardiomyopathy BASIC METABOLIC PANEL STAT 03/29/2017 2:48 PM EST Other cardiomyopathy documented in this encounter Results * pro-Brain Natriuretic Peptide (03/29/2017 2:48 PM EST) NT-proBNP 62 <=125 pg/mL [facility] Blood specimen (specimen) 03/29/2017 2:48 PM EST 03/29/2017 2:52 PM EST Narrative Resulting Agency Comment Spec In Lab Imelda Durham APRN CHEMISTRY ORDERABLES [facility] [place] [address] * (ABNORMAL) Basic Metabolic Panel (non-fasting) (03/29/2017 2:48 PM EST) Glucose 81 65 - 199 mg/dL [facility] Comment:Diabetes: >=200 mg/d L plus symptoms Blood Urea Nitrogen 8 8 - 18 mg/dL [facility] Creatinine 0.72 0.70 - 1.20 mg/dL [facility] Sodium 143 135 - 145 mmol/L [facility] Potassium 4.2 3.5 - 5.0 mmol/L [facility] Comment: Please note: ??Patients with WBC >100,000 may have falsely elevated Potassium levels. ??For accurate Potassium quantification in these patients send serum separator tube (gold top) for subsequent determinations. ??Contact the Clinical Chemistry Laboratory if there are any questions. Chloride 100 98 - 107 mmol/L [facility] Carbon Dioxide 23 22 - 31 mmol/L [facility] Anion Gap 20(H) 5 - 15 mmol/L [facility] Calcium 9.6 8.5 - 10.5 mg/dL [facility] Est Glomerular Filtration Rate >60 >=60 [facility] Comment: The reported eGFR should be multiplied by 1.2 for patients. The MDRD is not an appropriate measure of renal function for patients with body mass extremes or in patients with acute kidney failure. http://IEMO/DHnkdep http://IEMO/DHMCnkf Blood specimen (specimen) 03/29/2017 2:48 PM EST 03/29/2017 2:52 PM EST Narrative Resulting Agency Comment Spec In Lab Imelda Durham APRN CHEMISTRY ORDERABLES [facility] [place] [address] documented in this encounter Visit Diagnoses Diagnosis Other cardiomyopathy documented in this encounter Care Teams Greenhouse Specialist Relationship Specialty Start Date End Date Rustam Coppola MD [address] [place] [id number] PCP - General 06/30/13 05/30/18 documented as of this encounter
--- OUTSIDE RECORDS SUMMARY | 2024-01-03 13:12 | XMS_ITS | Encounter Summary ---
[place] [address] Care Team Providers Care Porcelain Finish Sprayer Name Role Phone Chela Crook APRN Primary Care Provider [phone] Encounter Details Date Type Department Care Team (Late st Contact Info) Description 08/06/2020 Telephone Non-Invasive [place] [address] Belen Ibarra Social History Tobacco [...] * Telephone Encounter - Belen Ibarra - 08/06/2020 7:[address] Márquez she asked me to call patient and get them in for an echo. I called the patient and left multiple messages on 3 phones. documented in this encounter Plan of Treatment Upcoming Encounters Date Type Department Care Team (Late st Contact Info) Description 01/27/2024 1:00 PM EST Appointment Non-Invasive [place] [address] Anton Márquez MD [facility] [place] [place] [address] 01/27/2024 3:00 PM EST Office Visit Cardiology at [address] [phone] Anton Márquez MD [facility] [place] [place] [address] documented as of this encounter Visit Diagnoses Not on filedocumented in this encounter Care Teams Porcelain Finish Sprayer Relationship Specialty Start Date End Date Chela Crook APRN [address], [facility] [address] [place] [address] PCP - General Family Medicine 05/31/18 08/14/20 documented as of this encounter
--- OUTSIDE RECORDS SUMMARY | 2024-01-03 13:12 | XMS_ITS | Encounter Summary ---
[place] [address] Care Team Providers Care Environmental Science Program Director Name Role Phone Chela Crook APRN Primary Care Provider [phone] Encounter Details Date Type Department Care Team (Latest Contact Info) Description 05/31/2018 12:00 PM EDT Laboratory Appointment Lab [address] [place] [address] Chronic systolic heart failure Social [...] 1:00 PM EST Appointment Non[place] [address] Anton Márquez MD [facility] [place] [address] 01/27/2024 3:00 PM EST Office Visit Cardiology at [address] [phone] Anton Márquez MD [facility] [place] [address] documented as of this encounter Procedures Procedure Name Priority Date/Time Associated Diagnosis Comments PRO-BRAIN NATRIURETIC PEPTIDE STAT 05/31/2018 11:27 AM EDT Chronic systolic heart failure BASIC METABOLIC PANEL STAT 05/31/2018 11:27 AM EDT Chronic systolic heart failure documented in this encounter Results * pro-Brain Natriuretic Peptide (05/31/2018 11:27 AM EDT) NT-proBNP 61 <=125 pg/mL [facility] Blood specimen (specimen) 05/31/2018 11:27 AM EDT 05/31/2018 11:32 AM EDT Narrative Resulting Agency Comment Spec In Lab Imelda Durham APRN CHEMISTRY ORDERABLES [facility] [place] [address] * Basic Metabolic Panel (non-fasting) (05/31/2018 11:27 AM EDT) Glucose 71 65 - 199 mg/dL [facility] Comment:Diabetes: >=200 mg/d L plus symptoms Blood Urea Nitrogen 10 8 - 18 mg/dL [facility] Creatinine 0.84 0.70 - 1.20 mg/dL [facility] Sodium 140 135 - 145 mmol/L [facility] Potassium 4.1 3.5 - 5.0 mmol/L [facility] Comment: Please note: ??Patients with WBC >100,000 may have falsely elevated Potassium levels. ??For accurate Potassium quantification in these patients send serum separator tube (gold top) for subsequent determinations. ??Contact the Clinical Chemistry Laboratory if there are any questions. Chloride 104 98 - 107 mmol/L [facility] Carbon Dioxide 26 22 - 31 mmol/L [facility] Anion Gap 10 5 - 15 mmol/L [facility] Calcium 9.4 8.5 - 10.5 mg/dL [facility] Est Glomerular Filtration Rate 99 >=60 mL/min/1. 73 m?? [facility] Comment: The eGFR was calculated using the CKD-EPI equation. As with all creatinine based estimates of kidney function, eGFR values calculated with the CKD-EPI equation are not accurate in patients with acute kidney failure, extremes of body mass or the acutely ill. [email or web address] eGFR 115 >=60 mL/min/1. 73 m?? [facility] Comment: The eGFR was calculated using the CKD-EPI equation. As with all creatinine based estimates of kidney function, eGFR values calculated with the CKD-EPI equation are not accurate in patients with acute kidney failure, extremes of body mass or the acutely ill. [email or web address] Blood specimen (specimen) 05/31/2018 11:27 AM EDT 05/31/2018 11:32 AM EDT Narrative Resulting Agency Comment Spec In Lab Imelda Durham APRN CHEMISTRY ORDERABLES Performing Organization Address City/State/[facility] Co de Phone Number [facility] [place] [address] documented in this encounter Visit Diagnoses Diagnosis Chronic systolic heart failure documented in this encounter Care Teams Environmental Science Program Director Relationship Specialty Start Date End Date Chela Crook APRN [address], [facility] [address] [place] [phone] PCP - General Family Medicine 05/31/18 08/14/20 documented as of this encounter
--- OUTSIDE RECORDS SUMMARY | 2024-01-03 13:12 | XMS_ITS | Encounter Summary ---
Author Organization [facility] [place] [address] Care Team Providers Care Cashier Associate Name Role Phone Unknown Primary Care Provider Unavailabl e Reason for Referral * Diagnostic Test (Routine) - Closed Specialty Diagnoses / Procedures Referred By Contac t Referred To Contact Cardiology Diagnoses Viral cardiomyopathy Procedures Echocardiogram Transthoracic([facility] or [facility]) Anton Márquez MD [facility] [place] [address] [facility] [place] [address] Referral ID Status Reason Start Date Expiration Date V isits Requested Visits Authorized [id number] Closed Specialty Service Requested 08/02/2020 08/02/2021 1 1 Reason for Visit * Diagnostic Test (Routine) - Closed Specialty Diagnoses / Procedures Referred By Contac t Referred To Contact Cardiology Diagnoses Viral cardiomyopathy Procedures Echocardiogram Transthoracic([facility] or [facility]) Anton Márquez MD [facility] [address] [facility] [place] [address] Referral ID Status Reason Start Date Expiration Date V isits Requested Visits Authorized [id number] Closed Specialty Service Requested 08/02/2020 08/02/2021 1 1 Encounter Details Date Type Department Care Team (Late st Contact Info) Description 09/04/2020 11:40 AM EDT - 09/04/2020 11:59 PM EDT Hospital Encounter Non-Invasive [place] [address] Anton Márquez MD [facility] [place] [address] Viral cardiomyopathy Discharge Disposition: Home Social History Tobacco [...] Sig Dispensed Refills Start Date End Date docusate sodium (Colace) 50 mg Capsule Take by mouth. 08/16/2020 12/10/2020 ondansetron (Zofran) 4 mg Tablet 08/16/2020 12/10/2020 vit 75/iron/folic/om3 ([id number] FUM-FOLIC AC-OM3 ORAL) Take by mouth. 08/16/2020 09/25/2021 metoclopramide (Reglan) 10 mg Tablet 07/25/2020 12/10/2020 documented as of this encounter Plan of Treatment Upcoming Encounters Date Type Department Care Team (Late st Contact Info) Description 01/27/2024 1:00 PM EST Appointment Non-Invasive [place] [address] Anton Márquez MD [facility] [place] [address] 01/27/2024 3:00 PM EST Office Visit Cardiology at [address] [phone] Anton Márquez MD [facility] [place] [address] documented as of this encounter Procedures Procedure Name Priority Date/Time Associated Diagnosis Comments ECHO COMPLETE Routine 09/04/2020 12:48 PM EDT Viral cardiomyopathy documented in this encounter Results * ECHO COMPLETE (09/04/2020 12:48 PM EDT) Anatomical Region Laterality Modality Other 09/04/2020 Narrative 09/04/2020 2:27 PM EDT Procedure: ?Transthoracic Echocardiogram Patient: ?JORDON Polo ? (Age): 1995(25y) Med Rec#: ? [id number] ?Sex: ?F ? Site Loc: ? [facility] ?Ht / Wt: ??178(cm)/73(kg) Pt. Loc: ?Echo Lab ?BSA: ?1.9 Study Date: ?? 09/04/2020 ?Pt. Type: Outpatient Tape: ? 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 112/67 SUMMARY: 1. The left ventricular chamber size is normal.Left ventricular wall thickness is normal.Global left ventricular systolic function is mildly reduced.The quantitative left ventricular ejection fraction by biplane Higginbotham's method is 45%. GLS -13.8%.There is diffuse hypokinesis present with sparing of a few basal segments. Doppler assessment is consistent with normal left sided filling pressure. 2. Right ventricular chamber size, wall thickness, and systolic function are within normal limits.Pulmonary artery hypertension could not be assessed due to inadequate tricuspid regurgitation jet. 3. Normal atrial sizes. 4. No significant valve disease. 5. Normal aorta size. 6. See remainder of report for additional findings. 7. In direct comparison to the prior study from 2018 the left ventricular global systolic function has decreased and is now mildly reduced (59 to 45%). Findings ? : Left Ventricle: ? The left ventricular chamber size is normal. ?Left ventricular wall thickness is normal. ?There is no evidence of LVOT obstruction. ?No ventricular septal defect is visualized. ?Global left ventricular systolic function is mildly reduced. ?The quantitative left ventricular ejection fraction by biplane Higginbotham's method is 45%.GLS -13.8% ?There is diffuse hypokinesis present. with sparing of a few basal segments. ?Left ventricular diastolic function is abnormal. ?Doppler assessment is consistent with normal left sided filling pressure. ?The ??basal anteroseptal, basal anterior, basal inferoseptal, mid anteroseptal, mid anterior, mid anterolateral, mid inferolateral, mid inferior, mid inferoseptal, apical septal, apical anterior, apical lateral, and ??apical inferior wall segments are hypokinetic (score 2). ?Overall wallmotion score index is ??1.81 Left Atrium: ? The left atrium is normal in size.(21 ml/m2) ?No atrial septal defect is visualized. Right Ventricle: ? Right ventricular chamber size, wall thickness, and systolic function are within normal limits. ?Pulmonary artery hypertension could not be assessed due to inadequate tricuspid regurgitation jet. ?The estimated right atrial pressure is 3 mmHg. Right Atrium: ? The right atrium appears normal. Aortic Valve: ? The aortic valve is tricuspid. ?The aortic valve leaflets are mildly thickened. ?Systolic excursion of the aortic valve is normal. ?There is no evidence of aortic valve stenosis. ?There is a trace of aortic regurgitation present. Mitral Valve: ? The mitral valve leaflets are mildly thickened. ?There is no evidence of mitral valve [...] ?Value ?Units (Range) ? IVSd (2D) ? 0.76 ? cm ? LVPWd (2D) ?1.12 ? cm ? IVS:LVPW ratio (2D) 0.68 ? ratio ? RWT (2D) ?0.38 ? ratio ? RWT PW (2D) ? 0.45 ? ratio ? LVIDd (2D) ?4.94 ? cm ? LVIDs (2D) ?3.85 ? cm ? LVIDd (2D) index ?2.59 ? cm/m2 ? LVIDs (2D) index ?2.02 ? cm/m2 ? LV FS (2D) ?22.06 ?% ? EF Teichholz (2D) ?? 44.41 ?% ? Ao root diameter (2D3.2 ?cm (2.1 - 3.6) ? Ascending Ao ?2.5 ?cm (2 - 3.5) ? Volumes/Mass ?Value ?Units (Range) ? LA Area 4 CH ?14.6 ? cm2 (<21) ? LA ESV BP (A/L) inde21 ? ml/m2 ? RA AREA 4CH ? 11.2 ? cm2 ? LA ESV BP (MOD) inde21.26 ?ml/m2 ? LV ESV SP 4CH (MOD) 63.9 ? ml ? LV ESV SP 2CH (MOD) 61.1 ? ml ? LV EDV BP ? 115 ?ml ? LV ESV BP ? 63.1 ? ml ? LV EDV BP index ? 60.38 ?ml/m2 ? LV ESV BP index ? 33.13 ?ml/m2 ? BP EF (MOD) ? 45.13 ?% ? LV mass (2D) ?164.11 ? g ? LV mass (2D) index ??86.16 ?g/m2 ? Diastolic/Systolic Function ?Value ?Units (Range) ? MV E-wave Vmax ?0.6 ?m/sec ? MV deceleration [id number] ?msec ? MV A-wave Vmax ?0.48 ? m/sec ? MV E:A ratio ?1.24 ? ratio ? LV septal e' Vmax ?? 0.08 ? m/sec ? LV lateral e' Vmax ??0.16 ? m/sec ? LV average e' Vmax ??0.12 ? m/sec ? LV E:e' septal ratio7.45 ? ratio ? LV E:e' lateral rati3.73 ? ratio ? LV average E:e' rati4.97 ? ratio ? Aortic Valve ?Value ?Units (Range) ? LVOT diameter ? 2.1 ?cm ? LVOT Vmax ? 0.71 ? m/sec ? LVOT VTI ?11.6 ? cm ? LVOT peak gradient ??2 ?mmHg ? LVOT mean gradient ??1 ?mmHg ? SV LVOT ? 40.16 ?ml ? Tricuspid Valve ?Value ?Units (Range) ? RAP ? 3 ?mmHg ? Wall Motion: Segment Name ?Rest ? Base-Anteroseptal ?? Hypokinetic ? Base-Anterior ? Hypokinetic ? Base-Anterolateral ??Normal ? Base-Posterolateral Normal ? Base-Inferior ? Normal ? Base-Inferoseptal ?? Hypokinetic ? Mid-Anteroseptal ?Hypokinetic ? Mid-Anterior ?Hypokinetic ? Mid-Anterolateral ?? Hypokinetic ? Mid-Posterolateral ??Hypokinetic ? Mid-Inferior ?Hypokinetic ? Mid-Inferoseptal ?Hypokinetic ? Mont[place]-Septal ? Hypokinetic ? [place]-Anterior ? Hypokinetic ? [place]-Lateral ?Hypokinetic ? [place]-Inferior ? Hypokinetic ? [place]-Tip ?Hypokinetic ? This report has been electronically signed by: Anton Márquez MD ? 09/04/2020 14:26:35 Images reviewed and interpretation verified [facility] Cardiac Ultrasound Laboratory Procedure Note Anton Márquez MD - 09/04/2020 Procedure: Transthoracic Echocardiogram Patient: JORDON Polo (Age): 1995(25y) Med Rec#: [id number] Sex: F Site Loc: [facility] Ht / Wt: 178(cm)/73(kg) Pt. Loc: Echo Lab BSA: 1.9 Study Date: 09/04/2020 Pt. 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 The left ventricular chamber size is normal.Left ventricular wall thickness is normal.Global left ventricular systolic function is mildly reduced.The quantitative left ventricular ejection fraction by biplane Higginbotham's method is 45%. GLS -13.8%.There is diffuse hypokinesis present with sparing of a few basal segments. Doppler assessment is consistent with normal left sided filling pressure. 2. Right ventricular chamber size, wall thickness, and systolic function are within normal limits.Pulmonary artery hypertension could not be assessed due to inadequate tricuspid regurgitation jet. 3. Normal atrial sizes. 4. No significant valve disease. 5. Normal aorta size. 6. See remainder of report for additional findings. 7. In direct comparison to the prior study from 2018 the left ventricular global systolic function has decreased and is now mildly reduced (59 to 45%). Findings : Left Ventricle: The left ventricular chamber size is normal. Left ventricular wall thickness is normal. There is no evidence of LVOT obstruction. No ventricular septal defect is visualized. Global left ventricular systolic function is mildly reduced. The quantitative left ventricular ejection fraction by biplane Higginbotham's method is 45%.GLS -13.8% There is diffuse hypokinesis present. with sparing of a few basal segments. Left ventricular diastolic function is abnormal. Doppler assessment is consistent with normal left sided filling pressure. The basal anteroseptal, basal anterior, basal inferoseptal, mid anteroseptal, mid anterior, mid anterolateral, mid inferolateral, mid inferior, mid inferoseptal, apical septal, apical anterior, apical lateral, and apical inferior wall segments are hypokinetic (score 2). Overall wallmotion score index is 1.81 Left Atrium: The left atrium is normal in size.(21 ml/m2) No atrial septal defect is visualized. Right Ventricle: Right ventricular chamber size, wall thickness, and systolic function are within normal limits. Pulmonary artery hypertension could not be assessed due to inadequate tricuspid regurgitation jet. The estimated right atrial pressure is 3 mmHg. Right Atrium: The right atrium appears normal. Aortic Valve: The aortic valve is tricuspid. The aortic valve leaflets are mildly thickened. Systolic excursion of the aortic valve is normal. There is no evidence of aortic valve stenosis. There is a trace of aortic regurgitation present. Mitral Valve: The mitral valve leaflets are mildly thickened. There is no evidence of mitral valve [...] Chambers 2D Value Units (Range) IVSd (2D) 0.76 cm LVPWd (2D) 1.12 cm IVS:LVPW ratio (2D) 0.68 ratio RWT (2D) 0.38 ratio RWT PW (2D) 0.45 ratio LVIDd (2D) 4.94 cm LVIDs (2D) 3.85 cm LVIDd (2D) index 2.59 cm/m2 LVIDs (2D) index 2.02 cm/m2 LV FS (2D) 22.06 % EF Teichholz (2D) 44.41 % Ao root diameter (2D3.2 cm (2.1 - 3.6) Ascending Ao 2.5 cm (2 - 3.5) Volumes/Mass Value Units (Range) LA Area 4 CH 14.6 cm2 (<21) LA ESV BP (A/L) inde21 ml/m2 RA AREA 4CH 11.2 cm2 LA ESV BP (MOD) inde21.26 ml/m2 LV ESV SP 4CH (MOD) 63.9 ml LV ESV SP 2CH (MOD) 61.1 ml LV EDV BP 115 ml LV ESV BP 63.1 ml LV EDV BP index 60.38 ml/m2 LV ESV BP index 33.13 ml/m2 BP EF (MOD) 45.13 % LV mass (2D) 164.11 g LV mass (2D) index 86.16 g/m2 Diastolic/Systolic Function Value Units (Range) MV E-wave Vmax 0.6 m/sec MV deceleration [id number] msec MV A-wave Vmax 0.48 m/sec MV E:A ratio 1.24 ratio LV septal e' Vmax 0.08 m/sec LV lateral e' Vmax 0.16 m/sec LV average e' Vmax 0.12 m/sec LV E:e' septal ratio7.45 ratio LV E:e' lateral rati3.73 ratio LV average E:e' rati4.97 ratio Aortic Valve Value Units (Range) LVOT diameter 2.1 cm LVOT Vmax 0.71 m/sec LVOT VTI 11.6 cm LVOT peak gradient 2 mmHg LVOT mean gradient 1 mmHg SV LVOT 40.16 ml Tricuspid Valve Value Units (Range) RAP 3 mmHg Wall Motion: Segment Name Rest Base-Anteroseptal Hypokinetic Base-Anterior Hypokinetic Base-Anterolateral Normal Base-Posterolateral Normal Base-Inferior Normal Base-Inferoseptal Hypokinetic Mid-Anteroseptal Hypokinetic Mid-Anterior Hypokinetic Mid-Anterolateral Hypokinetic Mid-Posterolateral Hypokinetic Mid-Inferior Hypokinetic Mid-Inferoseptal Hypokinetic Montrose-Septal Hypokinetic [place]-Anterior Hypokinetic [place]-Lateral Hypokinetic [place]-Inferior Hypokinetic [place]-Tip Hypokinetic This report has been electronically signed by: Anton Márquez MD 09/04/2020 14:26:35 Images reviewed and interpretation verified [facility] Cardiac Ultrasound Laboratory Anton Márquez MD ECHO ORDERABLES documented in this encounter Visit Diagnoses Diagnosis Viral cardiomyopathy Other primary cardiomyopathies documented in this encounter Care Teams Cashier Associate Relationship Specialty Start Date End Date Unknown None PCP - General 08/16/20 09/26/20 documented as of this encounter
--- OUTSIDE RECORDS SUMMARY | 2024-01-03 13:12 | XMS_ITS | Encounter Summary ---
[place] [address] Care Team Providers Care Log Roper Name Role Phone Rustam Coppola MD Primary Care Provider [phone] Encounter Details Date Type Department Care Team (Late st Contact Info) Description 02/11/2018 Telephone Cardiology at [address] [phone] Jorgito Li, RN Social History Tobacco Use Types Packs/Day [...] encounter Miscellaneous Notes * Telephone Encounter - Jorgito Li RN - 02/11/2018 12:02 PM EST I spoke with Mary as a hot call today. She states that she has been talking her Metoprolol and Lisinopril as recommended by Imelda Durham APRN at their last visit in April. Mary states that she had to walk the 2 miles to work today and that my heart felt like it was jumping out of my chest and after arriving at work she has been vomiting. She reports that she has a history of her arms t urning blue and that her arms and lips were blue when she arrived at work today and that they were better now while we were talking. She still feels poorly and asked that I speak with my boss about going home. I consulted with Sydni Gates APRN as Imelda Marva was unavailable and her recommendation was for Mary to be seen in the emergency department. I relayed this to Mary who states, Really? I hate that place. 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 documented in this encounter Plan of Treatment Upcoming Encounters Date Type Department Care Team (Late st Contact Info) Description 01/27/2024 1:00 PM EST Appointment Non[place] [address] Anton Márquez MD [facility] [place] [address] 01/27/2024 3:00 PM EST Office Visit Cardiology at [address] [address] Anton Márquez MD [facility] [place] [address] documented as of this encounter Visit Diagnoses Not on filedocumented in this encounter Care Teams Log Roper Relationship Specialty Start Date End Date Rustam Coppola MD [address] [place] [id number] PCP - General 06/30/13 05/30/18 documented as of this encounter
--- OUTSIDE RECORDS SUMMARY | 2024-01-03 13:12 | XMS_ITS | Encounter Summary ---
Author Organization Formerly [facility] [place] [address] Care Team Providers Care Cow Trimmer Name Role Phone Chela Crook APRN Primary Care Provider [phone] Reason for Referral * Consultation (Routine) - Closed Specialty Diagnoses / Procedures Referred By Contac t Referred To Contact Obstetrics and Gynecology Diagnoses Supervision of high risk in first trimester CARDIOMYOPATHY, HX HEART FAILURE Anton Márquez MD [facility] [address] [facility] [employer] [place] [address] Referral ID Status Reason Start Date Expiration Date V isits Requested Visits Authorized [id number] Closed Consult, Test & Treat PCP Updated and/or Approved 08/04/2020 08/04/2021 6 6 * Diagnostic Test (Routine) - Closed Specialty Diagnoses / Procedures Referred By Contac t Referred To Contact Cardiology Diagnoses Viral cardiomyopathy Procedures Echocardiogram Transthoracic([facility] or [facility]) Anton Márquez MD [facility] [address] [facility] [place] [address] Referral ID Status Reason Start Date Expiration Date V isits Requested Visits Authorized [id number] Closed Specialty Service Requested 08/02/2020 08/02/2021 1 1 Encounter Details Date Type Department Care Team (Late st Contact Info) Description 08/02/2020 3:40 PM EDT Office Visit Cardiology at [address] [address] Anton Márquez MD [facility] [address] CARDIOLOGY [place] [phone] Viral cardiomyopathy; Chronic systolic heart failure; Supervision of high risk in first trimester Social History Tobacco Use [...] Sign Reading Time Taken Comments Blood Pressure 121/76 08/02/2020 4:23 PM EDT Pulse 97 08/02/2020 4:23 PM EDT Temperature - - Respiratory Rate - - Oxygen Saturation 100% 08/02/2020 4:23 PM EDT Inhaled Oxygen Concentration - - Weight 72.8 kg (160 lb 9.6 oz) 08/02/2020 4:23 P M EDT Height 177.8 cm (5' 10) 08/02/2020 4:23 PM EDT Body Mass Index 23.04 08/02/2020 4:23 PM EDT documented in this encounter Progress Notes * Anton Márquez MD - 08/02/2020 3:40 PM EDT Images from the original note were not included. CARDIOLOGY OUTPATIENT NEW PATIENT NOTE PRIMARY CARE PROVIDER: Chela Crook APRN Chief Complaint: Mary Porras is a 25 y.o. 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 HPI: She presented at age 4 months with heart failure thought to be secondary to enterovirus myocarditis. She was treated with immunoglobin at that time. She's had slow improvements in her LV function over the years with low normal EF and no heart failure symptoms. She was previously treated with wisam-I,Coumadin, beta sunitha, digoxin. Meds were stopped by age [age]. The advanced heart failure team met her during in 2013 when she developed peripartum cardiomyopathy and her LVEF dropped from 51% to 35%. She had gained>100 lbs with and developed symptoms of heart failure requiring inpatient IV diuresis. She was managed on low-dose beta-sunitha throughout this . She had class I-II CHF symptoms (similar to pre symptoms and thought to be multifactorial including deconditioning as much as heart failure). [facility]. was performed for obstetric indications (meconium in the fluid and nonreassuring heart rate). She was seen in the heart failure clinic in routine follow-up 7 months after her delivery, and ACEi was added to her regimen. When she returned to the clinic in 2014 she was on no medical therapy at that time. Wisam inhibitor and beta-sunitha were reinitiated. She returned for an attempted MRI (due to trabeculations noted on echocardiography) which was unable to be completed. At her last follow-up with the advanced heart failure team in 2018, she reported self discontinuation of her medical therapy because they made her tired and unwell. She reported difficulty with multiple methods of control to include oral contraceptives, other hormonal contraceptives and Mirena IUD. All methods were unacceptable either to excessive bleeding or she had a cervical puncture andearly expulsion of her IUD. [facility] . She is accompanied by her boyfriend Anderson, whom she lives with. She has had 2 interim pregnancies which she elected to terminate due to concern over her heart condition. They arrived today having already discussed the risks of this and Mary voices a strong preference to see this to term. Anderson reports that he will do whatever she wants to do and that he is trying to be supportive. They report stable housing and there are no safety issues at home. Mary's 6-year-old is doing well. She denies interim hospitalization for cardiovascular complaints or heart failure. She denies active symptoms of CAMPUZANO, edema, weight gain, orthopnea, PND. She has had no chest pain, syncope or presyncope, or palpitations. She has nausea in the mornings, but otherwise is tolerating this well. She is not yet taking a vitamin. She currently smoking marijuana daily,but denies other illicits. She specifically denies opiates, cocaine, stimulants, and alcohol. She reports that she was recently terminated from her job due to nausea and vomiting at work. PROBLEM LIST: Patient Active Problem List Diagnosis [...] Outpatient Medications Medication Sig Dispense Refill ??? metoclopramide (Reglan) 10 mg Tablet No current facility-administered medications for this visit. Family history: Family History Problem Relation Age of Onset ??? Coronary Artery Disease Unknown ??? Cancer Unknown ??? Type 2 Diabetes Unknown Social history: Social History Tobacco Use ??? Smoking status: Former Smoker ??? Smokeless tobacco: Never Used Substance Use Topics ??? Alcohol use: Not on file ??? Drug use: Not on file ROS: 11 point ros either negative or per HPI Objective: Vitals Office Visit from 08/02/2020 in Cardiology at [facility] Weight 72.8 kg (160 lb 9.6 oz) [...] for this evaluationare recorded in the HPI. Assessment and Plan: Problems: #NICM: Initially juvenile myocarditis with subsequent peripartum cardiomyopathy at age 18 with recovered LVEF on TTE in 2018. 2 interim terminated pregnancies. Now again without recent medical therapy or assessment of ventricular function. #High risk Chronic systolic heart failure. ACC/AHA stage C. NYHA functional class I. Euvolemic and well compensated on physical exam with virtually no heart failure symptoms. -I discussed the risk of (both with the patient and her boyfriend) which includes worsening heart failure, progressive cardiomyopathy, dysrhythmias, and rarely maternal/ mortality. Among women in whom LV function returns to normal, the risk of subsequent appears lower than for those with persistent LV dysfunction, but elevated compared with the general population. The patient and her boyfriend are both wanting to keep this despite the stated risks. - I have emphasized the need for close and frequent followup and delivery at [facility]. -Currently on no medical therapy, will obtain updated TTE and decide on low dose beta sunitha at that time. -Will CC my [facility] colleagues to get Mary connected at [facility] -Will CC TTE scheduling to coordinate TTE with either [facility] appointment or my next follow up. ?? Contact information in [facility] is outdated. Here are the best contact numbers: Best number to reach Mary [phone] (cell) ok to leave messages Best number to reach Anderson Phelan [phone]( boyfriendcell) ok to leave messages Soraya Best [phone]. RTC 3 months with echo on the day or prior if coming to [facility] for another reason Anton Márquez MD 08/04/2020 12:01 PM Note: Mary and Anderson arrived 29 minutes late to their scheduled appointment today. They were seen with the full 40 minute length of time of face to face time at the end of the clinic session but we were unable to arrange echocardiography. I did state that in the future it might not be possible to accommodate a clinic visit if they arrive that late again, however, we always do our best to see anyone who makes it during their session. I spent at least 40 minutes of time on this patient encounter on the date of service performing activities related to: ?preparing to see the patient (eg, review of tests) ?obtaining and/or reviewing separately obtained history ?performing a medically appropriate examination and/or evaluation ?counseling and educating the patient/family/caregiver ?ordering medications, tests, or procedures ?referring and communicating with other health hospice care sales consultant (when not separately reported) ?documenting clinical information in the electronic or other health record ?independently interpreting results (not separately reported) and communicating results to the patient/family/caregiver ?care coordination (not separately reported) Thank you for the opportunity to participate in this patient's cardiovascular care. All questions were answered and I look forward to the next visit. * Anton Márquez MD - 08/02/2020 3:40 PM EDT Called patient last week to give her the number to schedule TTE and follow up with me and to get MFM visit. She was with her boyfriend who acknowledged this request. There have been several unsuccessful attempts to schedule her from our end. documented in this encounter Plan of Treatment Upcoming Encounters Date Type Department Care Team (Late st Contact Info) Description 01/27/2024 1:00 PM EST Appointment Non-Invasive [place] [phone] Anton Márquez MD [facility] [address] 01/27/2024 3:00 PM EST Office Visit Cardiology at [address] [phone] Anton Márquez MD [facility] [address] Scheduled Referrals Name Type Priority Associated Diagnoses Orde r Schedule Referral to Maternal Medicine Outpatient Referral Routine Supervision of high risk in first trimester Ordered: 08/04/2020 documented as of this encounter Procedures Procedure Name Priority Date/Time Associated Diagnosis Comments EKG 12-LEAD Routine 08/02/2020 4:36 PM EDT documented in this encounter Results * ECHO COMPLETE (09/04/2020 12:48 PM EDT) Anatomical Region Laterality Modality Other 09/04/2020 Narrative 09/04/2020 2:27 PM EDT Procedure: ?Transthoracic Echocardiogram Patient: ?JORDON Polo ? (Age): 1995(25y) Med Rec#: ? [id number] ?Sex: ?F ? Site Loc: ? [facility] ?Ht / Wt: ??178(cm)/73(kg) Pt. Loc: ?Echo Lab ?BSA: ?1.9 Study Date: ?? 09/04/2020 ?Pt. Type: Outpatient Tape: ? Referring: HAYLEY Reading: Anton Márquez ([id number]) Development Spec: Kaylene Villanueva Diagnosis: *Viral cardiomyopathy (B33.24) BP: [...] E-wave Vmax ?0.6 ?m/sec ? MV deceleration [id number] ?msec ? MV A-wave Vmax ?0.48 ? [...] ? Mid-Inferior ?Hypokinetic ? Mid-Inferoseptal ?Hypokinetic ? [place]-Septal ? Hypokinetic ? [place]-Anterior ? Hypokinetic ? [place]-Lateral ?Hypokinetic ? [place]-Inferior ? Hypokinetic ? [place]-Tip ?Hypokinetic ? This report has been electronically signed by: Anton Márquez MD ? 09/04/2020 14:26:35 Images reviewed and interpretation verified [facility] Procedure Note Anton Márquez MD - 09/04/2020 Procedure: Transthoracic Echocardiogram Patient: JORDON Polo (Age): 1995(25y) Med Rec#: [id number] Sex: F Site Loc: [facility] Ht / Wt: 178(cm)/73(kg) Pt. Loc: Echo Lab BSA: 1.9 Study Date: 09/04/2020 Pt. Type: Outpatient Tape: Referring: HAYLEY Soto: Anton Márquez ([id number]) Development Spec: Kaylene Villanueva Diagnosis: *Viral cardiomyopathy (B33.24) BP: [...] MV E-wave Vmax 0.6 m/sec MV deceleration [id number] msec MV A-wave Vmax 0.48 m/sec MV [...] Hypokinetic Mid-Posterolateral Hypokinetic Mid-Inferior Hypokinetic Mid-Inferoseptal Hypokinetic [place]-Septal Hypokinetic [place]-Anterior Hypokinetic [place]-Lateral Hypokinetic [place]-Inferior Hypokinetic [place]-Tip Hypokinetic This report has been electronically signed by: Anton Márquez MD 09/04/2020 14:26:35 Images reviewed and interpretation verified [facility] Anton Márquez MD ECHO ORDERABLES * EKG 12 Lead (08/02/2020 4:36 PM EDT) Ventricular rate 85 BPM MUSE SYSTEM Atrial Rate 85 BPM MUSE SYSTEM P-R Interval 138 ms MUSE SYSTEM QRS Duration 84 ms MUSE SYSTEM Q-T Interval 372 ms MUSE SYSTEM QTC Calculated (Bezet) 442 ms MUSE SYSTEM Calculated P [place] 58 degrees MUSE SYSTEM Calculated R [place] 76 degrees MUSE SYSTEM Calculated T [place] 63 degrees MUSE SYSTEM INTERPRETATION Normal sinus rhythm Normal ECG When compared with ECG of 31-MAY-2018 13:37, No significant change was found Confirmed by MD OLSEN ARMIN ([id number]) on 08/02/2020 4:43:05 PM MUSE SYSTEM 08/02/2020 4:36 PM EDT 08/02/2020 4:43 PM EDT Unknown ECG ORDERABLES MUSE SYSTEM documented in this encounter Visit Diagnoses Diagnosis Viral cardiomyopathy Other primary cardiomyopathies Chronic systolic heart failure Supervision of high risk in first trimester Unspecified high-risk Viral cardiomyopathy Other primary cardiomyopathies documented in this encounter Care Teams Cow Trimmer Relationship Specialty Start Date End Date Chela Crook APRN [address] [place] [phone] PCP - General Family Medicine 05/31/18 08/14/20 documented as of this encounter
--- OUTSIDE RECORDS SUMMARY | 2024-01-03 13:12 | XMS_ITS | Encounter Summary ---
[place] [address] Care Team Providers Care Strategic Manager Name Role Phone Pietro Son Primary Care Provider [phone] Encounter Details Date Type Department Care Team (Late st Contact Info) Description 12/20/2020 Telephone Obstetrics [place] [address] Sheela Long, RN Social History Tobacco Use Types Packs/Day [...] encounter Miscellaneous Notes * Telephone Encounter - Sheela Long RN - 12/20/2020 2:58 PM EDT Pt called in to report decreased movement.1-2 hours ago the baby rolled and has not felt any thing since. She has not been feeling well vomiting and congested denies fever. Covid test came backnegative. She is voiding and having bowel movements. I asked her to drink something cold and lay onher side for an hours. I asked her to call us back if she doesn't feel 10 movements in that time. Pt expressed understanding and agrees with the plan. documented in this encounter Plan of Treatment Upcoming Encounters Date Type Department Care Team (Late st Contact Info) Description 01/27/2024 1:00 PM EST Appointment Non-[place] [address] Anton Márquez MD [facility] [place] [address] 01/27/2024 3:00 PM EST Office Visit Cardiology at [address] [phone] Anton Márquez MD [facility] [place] [address] documented as of this encounter Visit Diagnoses Not on filedocumented in this encounter Care Teams Strategic Manager Relationship Specialty Start Date End Date Pietro Son PA [address] [place] [address] PCP - General Internal Medicine 09/27/20 documented as of this encounter
--- OUTSIDE RECORDS SUMMARY | 2024-01-03 13:12 | XMS_ITS | Encounter Summary ---
[place] [address] Care Team Providers Care Forming Roll Operator Name Role Phone Pietro Son Primary Care Provider [phone] Reason for Referral * Consultation (Routine) - Closed Specialty Diagnoses / Procedures Referred By Marvin vo Referred To Contact Obstetrics and Gynecology Diagnoses 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 Zuri Borden MD [facility] [place] [address] [facility] [place] [employer] [address] [place] [address] Referral ID Status Reason Start Date Expiration Date V isits Requested Visits Authorized [id number] Closed Continuity of Care 11/07/2020 11/07/2021 1 1 Reason for Visit * Reason Comments Routine Visit Encounter Details Date Type Department Care Team (Late st Contact Info) Description 11/07/2020 10:00 AM EDT Routine Obstetrics [place] [phone] Zuri Borden MD [facility] [place] [address] GA: 22w5d Social History Tobacco Use Types Packs/Day Years [...] Sign Reading Time Taken Comments Blood Pressure 118/70 11/07/2020 10:13 AM EDT Pulse - - Temperature - - Respiratory Rate - - Oxygen Saturation - - Inhaled Oxygen Concentration - - Weight 85 kg (187 lb 4.8 oz) 11/07/2020 10:13 AM EDT Height - - Body Mass Index 26.87 09/27/2020 10:47 AM EDT documented in this encounter Progress Notes * Zuri Borden MD - 11/07/2020 10:00 AM EDT 22w5d BP 118/70 Wt 85 kg (187 lb 4.8 oz) BMI 26.87 kg/m?? Good movement. No contractions/ leaking fluid / bleeding / pain. No cardiac symptoms: no chest pain, no shortness of breath, except when walking up multiple flightsof stairs. No headache, vision changes, RUQ pain. Physical Exam General: alert, well appearing, in no apparent distress, oriented to person, place and time HEENT: normocephalic, atraumatic Abdomen: Soft, nontender Extremities: no edema Neurologic:alert, oriented, normal speech, no focal findings or movement disorder noted Psychiatric: Affect is Appropriate. Total weight gain 40 pounds. Similar rapid/excessive weight gain in prior (reviewed vitals from prior ). Referral for nutritional counseling. RTC as scheduled. documented in this encounter Plan of Treatment Upcoming Encounters Date Type Department Care Team (Late st Contact Info) Description 01/27/2024 1:00 PM EST Appointment Non-[place] [address] Anton Márquez MD [facility] [place] [address] 01/27/2024 3:00 PM EST Office Visit Cardiology at [address] [phone] Anton Márquez MD [facility] [place] [address] Scheduled Referrals Name Type Priority Associated Diagnoses Orde r Schedule Referral to Nutrition Services Outpatient Referral Routine 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 Ordered: 11/07/2020 documented as of this encounter Visit Diagnoses Diagnosis 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 documented in this encounter Care Teams Forming Roll Operator Relationship Specialty Start Date End Date Pietro Son PA [address] [place] [address] PCP - General Internal Medicine 09/27/20 documented as of this encounter
--- OUTSIDE RECORDS SUMMARY | 2024-01-03 13:12 | XMS_ITS | Encounter Summary ---
[place] [address] Care Team Providers Care Project Director Name Role Phone Pietro Son Primary Care Provider [phone] Reason for Referral * Diagnostic Test (Routine) - Closed Specialty Diagnoses / Procedures Referred By Contac t Referred To Contact Cardiology Diagnoses Other cardiomyopathy Procedures Echocardiogram Transthoracic([facility]) Anton Márquez MD [facility] [place] [address] [facility] [place] [address] Referral ID Status Reason Start Date Expiration Date V isits Requested Visits Authorized [id number] Closed Specialty Service Requested 09/27/2020 09/27/2021 1 1 Reason for Visit * Diagnostic Test (Routine) - Closed Specialty Diagnoses / Procedures Referred By Contac t Referred To Contact Cardiology Diagnoses Other cardiomyopathy Procedures Echocardiogram Transthoracic([facility]) Anton Márquez MD [facility] [place] [address] [facility] [place] [address] Referral ID Status Reason Start Date Expiration Date V isits Requested Visits Authorized [id number] Closed Specialty Service Requested 09/27/2020 09/27/2021 1 1 Encounter Details Date Type Department Care Team (Late st Contact Info) Description 12/10/2020 7:30 AM EDT - 12/10/2020 11:59 PM EDT Hospital Encounter Non-[place] [address] Anton Márquez MD [facility] [place] [address] Other cardiomyopathy Discharge Disposition: Home Social History Tobacco [...] mouth daily. 90 tablet 2 09/05/2020 01/25/2021 vit 75/iron/folic/om3 ([id number] FUM-FOLIC AC-OM3 ORAL) Take by mouth. 08/16/2020 09/25/2021 documented as of this encounter Plan of Treatment Upcoming Encounters Date Type Department Care Team (Late st Contact Info) Description 01/27/2024 1:00 PM EST Appointment Non-Invasive [place] [address] Anton Márquez MD [facility] [place] [address] 01/27/2024 3:00 PM EST Office Visit Cardiology at [address] [place] [address] Anton Márquez MD [facility] [place] [address] documented as of this encounter Procedures Procedure Name Priority Date/Time Associated Diagnosis Comments ECHO COMPLETE Routine 12/10/2020 8:32 AM EDT Other cardiomyopathy documented in this encounter Results * ECHO COMPLETE (12/10/2020 8:32 AM EDT) EF 54 HEARTLAB SYSTEM Anatomical Region Laterality Modality Other 12/10/2020 Narrative 12/10/2020 9:11 AM EDT Procedure: ?Transthoracic Echocardiogram Patient: ?JORDON VASQUES C ? (Age): 1995(25y) Med Rec#: ? [id number] ?Sex: ?F ? Site Loc: ? [facility] ?Ht / Wt: ??178(cm)/86.18(k Pt. Loc: ?Echo Lab ?BSA: ?2.04 Study Date: ?? 12/10/2020 ?Pt. Type: Outpatient Tape: ? Referring: HAYLEY Reading: Maicol Hart ([id number]) Protection Agent: Bushra Tompkins [facility] Diagnosis: *Cardiomyopathy, unspecified (I42.9) Rhythm: ? Sinus [...] Vmax ?0.99 ? m/sec ? MV deceleration roya363.93 ? msec ? MV A-wave Vmax ?0.79 [...] 12/10/2020 09:11:09 Images reviewed and interpretation verified [facility] Procedure Note Maicol Hart MD - 12/10/2020 Procedure: Transthoracic Echocardiogram Patient: JORDON DE LUNA(Age): 1995(25y) [facility] Rec#: [id number] Sex: F Site Loc: [facility] Ht / Wt: 178(cm)/86.18(k Pt. Loc: Echo Lab BSA: 2.04 Study Date: 12/10/2020 Pt. Type: Outpatient Tape: Referring: [facility] Reading: Maicol Hart ([id number]) Protection Agent: Bushra Tompkins RDCS, FASE Diagnosis: *Cardiomyopathy, unspecified (I42.9) Rhythm: Sinus BP: [...] MV E-wave Vmax 0.99 m/sec MV deceleration dlix997.93 msec MV A-wave Vmax 0.79 m/sec MV [...] 12/10/2020 09:11:09 Images reviewed and interpretation verified [facility] Anton Márquez MD ECHO ORDERABLES documented in this encounter Visit Diagnoses Diagnosis Other cardiomyopathy documented in this encounter Care Teams Project Director Relationship Specialty Start Date End Date Pietro Son PA [address] [place] [address] PCP - General Internal Medicine 09/27/20 documented as of this encounter
--- OUTSIDE RECORDS SUMMARY | 2024-01-03 13:12 | XMS_ITS | Encounter Summary ---
[place] [address] Care Team Providers Care Eight Section Blower Name Role Phone Rustam Coppola MD Primary Care Provider [phone] Reason for Visit * Reason Onset Date Comments Follow-up 04/20/2017 Medication Ford e to communicate after appointment yesterday per S. D'Samia Encounter Details Date Type Department Care Team (Late st Contact Info) Description 04/20/2017 Telephone [place] [phone] Joselyn Loja, RN Follow-up (Medication Change to communicate after appointment yesterday per S. D'Samia) Social History Tobacco Use Types Packs/Day Years [...] encounter Miscellaneous Notes * Telephone Encounter - Joselyn Loja RN - 04/20/2017 11:21 AM EST Telephone call at 11:10am to Mary per SChano Mckeon'Samia to continue the Metoprolol dosing, but to discontinue taking the Lisinopril due to dizziness with position changes, monitor how she is feeling with this. Also, to learn status of her progress with Funeral Service Practitioner/Embalmer appointment for control method. She relays is expecting a return call this week about the appointment. I relayed I would call her next week as to her symptoms of dizziness with position changes and feeling tired. Mary agrees with the medication change, verbalized understanding. documented in this encounter Plan of Treatment Upcoming Encounters Date Type Department Care Team (Late st Contact Info) Description 01/27/2024 1:00 PM EST Appointment Non[place] [address] Anton Márquez MD [facility] [address] 01/27/2024 3:00 PM EST Office Visit Cardiology at [address] [address] Anton Márquez MD [facility] [address] documented as of this encounter Visit Diagnoses Not on filedocumented in this encounter Care Teams Eight Section Blower Relationship Specialty Start Date End Date Rustam Coppola MD [address] [place] [address] PCP - General 06/30/13 05/30/18 documented as of this encounter
--- OUTSIDE RECORDS SUMMARY | 2024-01-03 13:12 | XMS_ITS | Encounter Summary ---
[place] [address] Care Team Providers Care Copper Miner Name Role Phone Pietro Son Primary Care Provider [phone] Encounter Details Date Type Department Care Team (Late st Contact Info) Description 01/15/2021 Orders Only Cardiology at [address] [phone] Anton Márquez MD [facility] [place] [address] Peripartum cardiomyopathy Social History Tobacco Use Types [...] 1:00 PM EST Appointment Non-[place] [address] Anton Márquez MD [facility] [place] [address] 01/27/2024 3:00 PM EST Office Visit Cardiology at [address] [phone] Anton Márquez MD [facility] [place] [address] Scheduled Orders Name Type Priority Associated Diagnoses Orde r Schedule pro-Brain Natriuretic Peptide Lab Routine Peripartum cardiomyopathy Expected: 01/22/2021, Expires: 01/15/2022 Basic Metabolic Panel (non-fasting) Lab Routine Peripartum cardiomyopathy Expected: 01/15/2021, Expires: 01/15/2022 documented as of this encounter Results * pro-Brain Natriuretic Peptide (01/30/2021 3:39 PM EST) Pathologist [facility] NT-proBNP 113 <=124 pg/mL [facility] Blood 01/30/2021 3:39 PM EST 01/30/2021 4:07 PM EST Narrative Resulting Agency Comment Spec In Lab Anton Márquez MD CHEMISTRY ORDER JERRY [facility] [place] [place] [address] * Basic Metabolic Panel (non-fasting) (01/30/2021 3:39 PM EST) Glucose 77 65 - 199 mg/dL [facility] Comment:Diabetes: >=200 mg/d L plus symptoms Blood Urea Nitrogen 16 8 - 18 mg/dL [facility] Creatinine 0.82 0.70 - 1.20 mg/dL [facility] Sodium 140 135 - 145 mmol/L [facility] Potassium 4.4 3.5 - 5.0 mmol/L [facility] Comment: Please note: ??Patients with WBC >100,000 may have falsely elevated Potassium levels. ??For accurate Potassium quantification in these patients send serum separator tube (gold top) for subsequent determinations. ??Contact the Clinical Chemistry Laboratory if there are any questions. Chloride 103 98 - 107 mmol/L [facility] Carbon Dioxide 27 22 - 31 mmol/L [facility] Anion Gap 10 5 - 15 mmol/L [facility] Calcium 9.2 8.5 - 10.5 mg/dL [facility] Est Glomerular Filtration Rate 100 >=60 mL/min/1. 73 m?? [facility] Comment: This patient? s [...] MD CHEMISTRY ORDER JERRY Performing Organization Address City/[facility] Co de Phone Number [facility] [place] [address] * (ABNORMAL) Digoxin level (01/30/2021 3:39 PM EST) Digoxin <0.3(L) 0.9 - 2.0 mcg/L [facility] Blood 01/30/2021 3:39 PM EST 01/30/2021 4:07 PM EST Narrative Resulting Agency Comment Spec In Lab Anton Márquez MD [place] [address] documented in this encounter Visit Diagnoses Diagnosis Peripartum cardiomyopathy Peripartum cardiomyopathy, unspecified as to episode of care documented in this encounter Care Teams Copper Miner Relationship Specialty Start Date End Date Pietro Son PA [address] [place] [address] PCP - General Internal Medicine 09/27/20 documented as of this encounter
--- OUTSIDE RECORDS SUMMARY | 2024-01-03 13:12 | XMS_ITS | Encounter Summary ---
[place] [address] Care Team Providers Care Personal Financial Planner Name Role Phone Pietro Son Primary Care Provider [phone] Reason for Visit * Reason Comments Routine Visit Encounter Details Date Type Department Care Team (Late st Contact Info) Description 12/10/2020 10:00 AM EDT Routine Obstetrics [place] [phone] Rustam Hoffman MD [facility] DR OBSTETRICS [place] [address] GA: 27w3d Social History Tobacco Use Types Packs/Day Years [...] Time Taken Comments Blood Pressure 112/60 12/10/2020 10:00 AM EDT Pulse - - Temperature - - Respiratory Rate - - Oxygen Saturation - - Inhaled Oxygen Concentration - - Weight 91.1 kg (200 lb 13.4 oz) 021 10:00 AM EDT Height - - Body Mass Index 28.82 12/10/2020 9:19 AM EDT documented in this encounter Progress Notes * Rustam Hoffman MD - 12/10/2020 10:00 AM EDT 25 o at 27w3d with cardiomyopathy and prior c/section. Doing well. Denies SOB, palpitations or chest pain. +FH today. Cardiomyopathy: Echo and visit with cardiology today. On metoprolol XL 25mg/day Echo today (12/10/2020): EF = 54% 09/04/2020: EF = 45% 04/19/2017: EF = 59% Follow up echo scheduled for 01/24/2021 Desires in Tubal Ligation. Federal consent form signed today. Desires KAVITA. We discussed the risk of scar separation and that it is a bit higher with induction oflabor and that a scheduled delivery is likely to be woodard since it is important for her to deliver at a tertiary center and she lives some distance away. RTO 3 weeks. MD Jacquelyn documented in this encounter Plan of Treatment Upcoming Encounters Date Type Department Care Team (Late st Contact Info) Description 01/27/2024 1:00 PM EST Appointment Non-Invasive [place] [phone] Anton Márquez MD [facility] [place] [address] 01/27/2024 3:00 PM EST Office Visit Cardiology at [address] [phone] Anton Márquez MD [facility] [place] [address] documented as of this encounter Procedures Procedure Name Priority Date/Time Associated Diagnosis Comments HC VENIPUNCTURE Routine 12/10/2020 11:13 AM EDT , unspecified gestational age documented in this encounter Results * Gestational Diabetes Screen (12/10/2020 11:13 AM EDT) Glucose Gestational Screen, 1 Hour 106 65 - 134 mg/dL [facility] Blood 12/10/2020 11:1 3 AM EDT 12/10/2020 12:19 PM EDT Narrative Resulting Agency Comment Spec In Lab Rustam Hoffman MD CHEMISTRY ORDERABLES [facility] [place] [address] documented in this encounter Visit Diagnoses Diagnosis , unspecified gestational age 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 documented in this encounter Care Teams Personal Financial Planner Relationship Specialty Start Date End Date Pietro Son PA [address] [place] [address] PCP - General Internal Medicine 09/27/20 documented as of this encounter
--- OUTSIDE RECORDS SUMMARY | 2024-01-03 13:12 | XMS_ITS | Encounter Summary ---
[place] [address] Care Team Providers Care Detective Captain Name Role Phone Rustam Coppola MD Primary Care Provider [phone] Reason for Referral * Diagnostic Test (Routine) - Closed Specialty Diagnoses / Procedures Referred By Contac t Referred To Contact Cardiology Diagnoses Other cardiomyopathy Procedures Echocardiogram Transthoracic(Leb) Imelda Durham APRN [facility] [place] [address] [facility] [place] [address] Referral ID Status Reason Start Date Expiration Date V isits Requested Visits Authorized [id number] Closed Specialty Service Requested 04/07/2017 07/06/2017 1 1 Reason for Visit * Diagnostic Test (Routine) - Closed Specialty Diagnoses / Procedures Referred By Contac t Referred To Contact Cardiology Diagnoses Other cardiomyopathy Procedures Echocardiogram Transthoracic(Leb) Imelda Durham APRN [facility] [place] [address] [facility] [place] [address] Referral ID Status Reason Start Date Expiration Date V isits Requested Visits Authorized [id number] Closed Specialty Service Requested 04/07/2017 07/06/2017 1 1 Encounter Details Date Type Department Care Team (Latest Contact Info) Description 04/19/2017 1:00 PM EST - 04/19/2017 11:59 PM EST Hospital Encounter Non-[place]vasive [place] [phone] Other cardiomyopathy Discharge Disposition: Home Social History [...] Sig Dispensed Refills Start Date End Date meTOPROLOL succinate (TOPROL-XL) 25 mg Tablet Sustained Release 24 hr Take 1 tablet by mouth daily. 30 tablet 12 03/29/2017 05/31/2018 lisinopril (PRINIVIL;ZESTRIL) 2.5 mg Tablet Take 1 tablet by mouth daily. 30 tablet 3 03/29/2017 05/31/2018 documented as of this encounter Plan of Treatment Upcoming Encounters Date Type Department Care Team (Late st Contact Info) Description 01/27/2024 1:00 PM EST Appointment Non-Invasive [place] [phone] Anton Márquez MD [facility] [place] [address] 01/27/2024 3:00 PM EST Office Visit Cardiology at [address] [phone] Anton Márquez MD [facility] [place] [address] documented as of this encounter Procedures Procedure Name Priority Date/Time Associated Diagnosis Comments ECHO COMPLETE Routine 04/19/2017 1:52 PM EST Other cardiomyopathy documented in this encounter Results * ECHO COMPLETE (04/19/2017 1:52 PM EST) EF 59 HEARTOpathica SYSTEM Anatomical Region Laterality Modality Other 04/19/2017 Narrative 04/19/2017 2:07 PM EST Procedure: ?Transthoracic Echocardiogram Patient: ?JORDON Polo ? (Age): 1995(21y) Med Rec#: ? [id number] ?Sex: ?F ? Site Loc: ? [facility] ?Ht / Wt: ??174(cm)/106(kg) Pt. Loc: ?Echo Lab ?BSA: ?2.2 Study Date: ?? 04/19/2017 ?Pt. Type: Outpatient Tape: ? Referring: Imelda Durham Reading: Boone Serrano ([id number]) Gas Jockey: Bushra Tompkins RDCS Diagnosis: *ICD-10-PCS Cardiomyopathy, unspecified (I42.9) Indication: ?? [...] E-wave Vmax ?0.9 ?m/sec ? MV deceleration ixmb228.2 ?msec ? MV A-wave Vmax ?0.8 ?m/sec [...] ? Mid-Inferior ?Normal ? Mid-Inferoseptal ?Normal ? Watson-Septal ? Normal ? Watson-Anterior ? Normal ? Watson-Lateral ?Normal ? Watson-Inferior ? Normal ? Watson-Tip ?Normal ? This report has been electronically signed by: Boone Serrano M.D. ? 04/19/2017 14:07:22 Images reviewed and interpretation verified [facility] Procedure Note Boone Serrano MD - 04/19/2017 Procedure: Transthoracic Echocardiogram Patient: JORDON Polo DOB(Age): 1995(21y) Med Rec#: [id number] Sex: F Site Loc: [facility] Ht / Wt: 174(cm)/106(kg) Pt. Loc: Echo Lab BSA: 2.2 Study Date: 04/19/2017 Pt. Type: Outpatient Tape: Referring: Imelda Durham Reading: Boone Serrano ([id number]) Gas Jockey: Bushra Tompkins [facility] Diagnosis: *ICD-10-PCS Cardiomyopathy, unspecified (I42.9) Indication: Cardiomyopathy [...] MV E-wave Vmax 0.9 m/sec MV deceleration zuzw696.2 msec MV A-wave Vmax 0.8 m/sec MV [...] Normal Mid-Posterolateral Normal Mid-Inferior Normal Mid-Inferoseptal Normal Watson-Septal Normal Watson-Anterior Normal Watson-Lateral Normal Watson-Inferior Normal Watson-Tip Normal This report has been electronically signed by: Boone Serrano M.D. 04/19/2017 14:07:22 Images reviewed and interpretation verified [facility] Imelda Durham APRN ECHO ORDERABLES documented in this encounter Visit Diagnoses Diagnosis Other cardiomyopathy documented in this encounter Care Teams Detective Captain Relationship Specialty Start Date End Date Rustam Coppola MD [address] [place] [address] PCP - General 06/30/13 05/30/18 documented as of this encounter
--- OUTSIDE RECORDS SUMMARY | 2024-01-03 13:12 | XMS_ITS | Encounter Summary ---
Author Organization [facility] [place] [address] Care Team Providers Care Title Supervisor Name Role Phone Pietro Son Primary Care Provider [phone] Reason for Referral * Diagnostic Test (Routine) - Closed Specialty Diagnoses / Procedures Referred By Contac t Referred To Contact Cardiology Diagnoses Chronic systolic heart failure Procedures Echocardiogram Transthoracic([facility]) Anton Márquez MD [facility] [place] [place] [address] [facility] [place] [address] Referral ID Status Reason Start Date Expiration Date V isits Requested Visits Authorized [id number] Closed Specialty Service Requested 12/10/2020 12/10/2021 1 1 Reason for Visit * Auth/Cert Specialty Diagnoses / Procedures Referred By Contac t Referred To Contact Diagnoses Cardiomyopathy, peripartum, antepartum AND TUBAL Procedures PRO DELIVERY ONLY PRO REMOVAL OF FALLOPIAN TUBE @ DELIVERY (WRVU 16.13) @SALPINGECTOMY (WRVU 12.95) Referral ID Status Reason Start Date Expiration Date Visits Re quested Visits Authorized [id number] 1 1 Encounter Details Date Type Department Care Team (Late st Contact Info) Description 01/14/2021 9:22 AM EDT - 01/14/2021 11:59 PM EDT Hospital Encounter Non-Invasive Cardiology Lab [facility] [place] [address] Anton Márquez MD [facility] [place] [address] Chronic systolic heart failure Discharge Disposition: Home [...] for 12 hours) 30 patch 01/25/2021 03/10/2021 docusate sodium (Colace) 100 mg Capsule Take 100 mg by mouth 2 times daily. 01/25/2021 metoprolol succinate XL (Toprol-XL) 25 mg Tablet Sustained Release 24 hrIndications:Chronic systolic heart failure,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 Take 1 tablet by mouth daily. 90 tablet 2 09/05/2020 01/25/2021 vit 75/iron/folic/om3 ([id number] FUM-FOLIC AC-OM3 ORAL) Take by mouth. 08/16/2020 09/25/2021 documented as of this encounter Plan of Treatment Upcoming Encounters Date Type Department Care Team (Late st Contact Info) Description 01/27/2024 1:00 PM EST Appointment Non-[place] [address] Anton Márquez MD [facility] [place] [address] 01/27/2024 3:00 PM EST Office Visit Cardiology at [address] [phone] Anton Márquez MD [facility] [place] [address] documented as of this encounter Procedures Procedure Name Priority Date/Time Associated Diagnosis Comments ECHO LMTD W/O CONTRAST W LMTD SPEC DOPP COLOR DOPP Routine 01/14/2021 10:39 AM EDT Chronic systolic heart failure documented in this encounter Results * ECHO LMTD W/O CONTRAST W LMTD SPEC DOPP COLOR DOPP (01/14/2021 10:39 AM EDT) Anatomical Region Laterality Modality Other 01/14/2021 Narrative 01/14/2021 11:00 AM EDT Procedure: ?Transthoracic Echocardiogram Patient: ?JORDON Polo ? (Age): 1995(25y) Med Rec#: ? [id number] ?Sex: ?F ? Site Loc: ? [facility] ?Ht / Wt: ??177.8(cm)/98(kg Pt. Loc: ?Echo Lab ?BSA: ?2.16 Study Date: ?? 01/14/2021 ?Pt. Type: Inpatient Tape: ? Referring: Anton Márquez ([id number]) Reading: Ean Linares ([id number]) Doctorate Of Chiropractic: An [place]oto Diagnosis: *Chronic systolic (congestive) heart [...] Vmax ?0.69 ? m/sec ? MV deceleration eshg413.03 ? msec ? MV A-wave Vmax ?0.59 [...] 01/14/2021 11:00:19 Images reviewed and interpretation verified [facility] Procedure Note Ean Linares MD - 01/14/2021 Procedure: Transthoracic Echocardiogram Patient: JORDON Polo (Age): 1995(25y) Med Rec#: [id number] Sex: F Site Loc: [facility] Ht / Wt: 177.8(cm)/98(kg Pt. Loc: Echo Lab BSA: 2.16 Study Date: 01/14/2021 Pt. Type: Inpatient Tape: Referring: Anton Márquez ([id number]) Reading: Ean Linares ([id number]) Doctorate Of Chiropractic: An Soto Diagnosis: *Chronic systolic (congestive) heart [...] MV E-wave Vmax 0.69 m/sec MV deceleration kvap234.03 msec MV A-wave Vmax 0.59 m/sec MV [...] 01/14/2021 11:00:19 Images reviewed and interpretation verified [facility] Anton Márquez MD ECHO ORDERABLES documented in this encounter Visit Diagnoses Diagnosis Chronic systolic heart failure documented in this encounter Care Teams Title Supervisor Relationship Specialty Start Date End Date Pietro Son PA [address] [place] [address] PCP - General Internal Medicine 09/27/20 documented as of this encounter
--- OUTSIDE RECORDS SUMMARY | 2024-01-03 13:13 | XMS_ITS | Encounter Summary ---
[place] [address] Care Team Providers Care Liquefaction And Regasification Helper Name Role Phone Rustam Coppola MD Primary Care Provider [phone] Encounter Details Date Type Department Care Team (Late st Contact Info) Description 10/08/2013 3:46 AM EDT Anesthesia Event [place] [address] Reuben Escalera MD [facility] [place] [address] Tony Walker MD [facility] [place] [address] Anesthesia Record Procedure Summary Procedure Name Responsible Anesthesiologist Anesthesia Start Time Anesthesia Stop Time @ DELIVERY (WRVU 16.13) (Abdomen) Reuben Escalera MD 10/08/13 0346 10/08/13 0530 Events Date Time Event Comment 10/08/2013 0346 AN Verify 0346 Start 0346 An Start Data 0350 L Uterine Displacement 0403 Anesthesia Ready 0406 Skin Incision 0413 Uterine Incision 0421 Baby Delivered 0507 Quick Note Record here is incomplete due to EDH shutdown during middle of night Summary: To main OR for decels Epidural bolused with chloroprocaine 3% Remberto at 10 mcgs/min dopamine at 5 mcg/kg min Occasional Nitrous by maskl Pitocin for uterine atony mild Used NICOM and CVP for monitorihg 0520 an stop data 0530 Stop 10/10/2013 1053 Meds Name Total ondansetron 4 mg PHENYLephrine INF 585 mcg chloroprocaine 3% 40 mL Lidocaine 2% 10 mL oxytocin 0.06 units/mL INF 20 mL oxytocin 0.06 units/mL INF 143.75 mL metoclopramide 10 mg DOPamine INF 24.39 mg * Agents Name O2 N2O * Blood No blood administrations on file. Lines, Drains, and Airways Type Details Placement Removal (RETIRED By SPR20) Incision 10/08/13; 0400 10/08/13 0400 by Torsten Schneider RN (RETIRED) Peripheral IV Line - Single Lumen 10/06/13; 2222; cephalic vein right (lateral side of arm); [id number] catheter system; 22 gauge; intradermal injection, tolerated well; 10/08/13; 2217 10/06/13 2222 by Chase Ireland LPN 10/08/13 221 by Dannielle Martini APRN (RETIRED) PICC Line - Single Lumen 10/07/13; 1554; basilic vein left (medial side of arm); pressure injectable catheter; 4 Fr; 41 cm; TEODORO NEFF RN; tolerated well; 3; basilic vein (medial side of arm), right, cephalic vein (lateral side of arm), right, no redness, ecchymosis, warmth, swelling, pain, drainage; no longer indicated, removed per policy/procedure, site care per policy/procedure; 10/12/13; 1609 (41 cm out) 10/07/13 1554 by Teodoro Neff RN 10/12/13 1609 by Holly Love RN Epidural 10/07/13; 1925; aashish ar; Dr Beckford; anesthesia/block; 10/10/13; 0800 10/07/13 1926 by Reema Deluna RN 10/10/13 08 by Torsten Schneider RN Urethral Catheter 10/07/13; 2008; indwelling double lumen catheter; drainage bag to dependent drainage; 10/10/13; 1500 10/07/132008 by Torsten Schneider RN 10/10/13 1500 by Lizzette Posey RN Incision 10/08/13; abdomen; horizontal; LDA not present upon assessment; 01/22/21; 1004 10/08/13 0000 by Sydni Bañuelos RN 01/22/21 1004 by Imelda Rowland RN documented in this encounter Social History Tobacco Use Types Packs/Day Years Used Date Smoking Tobacco: Never Alcohol Use Standard Drinks/Week Comments Not Asked 0 (1 standard drink = 0.6 oz pur e alcohol) Comments Yes Sex and Gender Information Value Date Recorded Sex Assigned at Female 11/26/2021 10:32 AM EDT Gender Identity Choose not to disclose 10:32 AM EDT Sexual Orientation Straight 11/26/2021 10 :32 AM EDT documented as of this encounter OR Notes * Anesthesia Preprocedure Evaluation - Reuben Escalera MD - 10/10/2013 10:52 AM EDT Pre-Anesthesia Evaluation for: Mary Porras a 18 y.o. female. Procedure(s): @ DELIVERY Patient Active Problem List Diagnosis ??? Cardiomyopathy 1. Nonischemic dilated cardiomyopathy Presented [...] risk teen With known cardiomyopathy Past Medical History Diagnosis Date ??? 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 Central venous catheter ??? delivery only 10/08/2013 @ DELIVERY performed by Meri Zimmerman MD at [facility] MAIN OR History Substance Use Topics ??? Smoking status: Never Smoker ??? Smokeless tobacco: Not on file ??? Alcohol Use: Not on file History Drug Use Not on file No Known Allergies Medications: MAR and/or home medications have been reviewed. Physical Exam: There were no vitals filed for this visit. There is no height or weight on file to calculate BMI. Airway Assessment: Mallampati: II Cardiovascular Assessment: cardiovascular exam normal Pulmonary Assessment: (+) rhonchi Dental Assessment: Misc Assessment: Anesthesia Plan: ASA 3 epidural, Informed Consent: Anesthetic plan and risks discussed with mother. [facility] Assessment: * Anesthesia Postprocedure Evaluation - Tony Walker - 10/08/2013 5:30 AM EDT Patient: Mary Porras Procedure(s) Performed: Procedure(s): @ DELIVERY Actual Anesthetic: No value filed. Patient location: PACU Post-op pain: Adequate analgesia Post-op nausea: no nausea or vomiting Last Vitals: Filed Vitals: 10/08/13 0200 BP: 123/67 Pulse: 81 Temp: Resp: 18 Post-op cardiovascular and respiratory status: is stable Level of consciousness: awake, alert and oriented Complications: no apparent complications and tolerated the procedure well Fluid Status: normal documented in this encounter Plan of Treatment Upcoming Encounters Date Type Department Care Team (Late st Contact Info) Description 01/27/2024 1:00 PM EST Appointment Non-[place]vasive [place] [address] Anton Márquez MD [facility] [place] [address] 01/27/2024 3:00 PM EST Office Visit Cardiology at [address] [phone] Anton Márquez MD [facility] [place] [address] [phone] (work) documented as of this encounter Visit Diagnoses Not on filedocumented in this encounter Administered Medications Inactive Administered Medications - up to 3 most recent administrations Medication Order MAR Action Action Date Dose Rate Site chloroprocaine (NESACAINE) injection PRN, Starting on 10/08/13 at 0350, Until 10/08/13 at 0530, Anesthesia Intra-op, Routine Given 10/08/2013 4:36 AM EDT 5 mLs Given 10/08/2013 4:23 AM EDT 5 mLs Given 10/08/2013 4:07 AM EDT 5 mLs DOPamine 1,600 mcg/mL (standard ADULT & Patricio greater than 20kg) infusion CONTINUOUS PRN, Starting on 10/08/13 at 0346, Until Wed10/08/13 at 0530, Anesthesia Intra-op, Routine New Bag 10/08/2013 3:46 AM EDT 5 mcg/kg/min 20.3 mL/hr Lidocaine (PF) (XYLOCAINE) 20 mg/mL (2 %) injection PRN, Starting on 10/08/13 at 0447, Until 10/08/13 at 0530, Anesthesia Intra-op, Routine Given 10/08/2013 5:00 AM EDT 5 mLs Given 10/08/2013 4:47 AM EDT 5 mLs metoclopramide (REGLAN) injection PRN, Starting on 10/08/13 at 0349, Until 10/08/13 at 0530, Nausea, Anesthesia Intra-op, Routine Given 10/08/2013 3:49 AM EDT 10 mg ondansetron (ZOFRAN) injection PRN, Starting on 10/08/13 at 0432, Until 10/08/13 at 0530, Nausea, Anesthesia Intra-op, Routine Given 10/08/2013 4:32 AM EDT 4 mg oxytocin (PITOCIN) 30 units in sodium chloride 0.9% 500 mL infusion CONTINUOUS PRN, Starting on 10/08/13 at 0421, Until Wed10/08/13 at 0530, Anesthesia Intra-op, Routine New Bag 10/08/2013 4:21 AM EDT 125 mL/hr 125 mL/hr oxytocin (PITOCIN) 30 units in sodium chloride 0.9% 500 mL infusion PRN, Starting on 10/08/13 at 0421, Until 10/08/13 at 0530, Anesthesia Intra-op, Routine Given 10/08/2013 4:21 AM EDT 20 mLs PHENYLephrine (REMBERTO-SYNEPHRINE) 20 mg in sodium chloride 250 mL infusion CONTINUOUS PRN, Starting on 10/08/13 at 0346, Until 10/08/13 at 0530, Anesthesia Intra-op, Routine New Bag 10/08/2013 3:46 AM EDT 15 mcg/min 11.3 mL/hr documented in this encounter Care Teams Liquefaction And Regasification Helper Relationship Specialty Start Date End Date Rustam Coppola MD [address] [place] [id number] PCP - General 06/30/13 05/30/18 documented as of this encounter
--- OUTSIDE RECORDS SUMMARY | 2024-01-03 13:13 | XMS_ITS | Encounter Summary ---
[place] [address] Care Team Providers Care Packing Room Worker Name Role Phone Rustam Coppola MD Primary Care Provider [phone] Encounter Details Date Type Department Care Team (Late st Contact Info) Description 12/16/2015 Telephone Cardiology at [address] [phone] Joan Fregoso LNA Social History Tobacco Use Types Packs/Day Years [...] encounter Miscellaneous Notes * Telephone Encounter - Joan Fregoso LNA - 12/16/2015 3:17 PM EDT After multiple attempts, I have have been unsuccessful in reaching Ms. Porras by phone. We originally sent an unable to reach letter in 06/2014 after trying unsuccessfully to reach patient. I was again asked to schedule an appointment for Ms. Porras by Ariela Garcia RN on 10/14/2015- who received a prescription refill request for her. I have continuously been trying to reach Ms. Porras and have left several detailed messages and have not heard back from her. I am sending another letter in an effort to reach out to her. Ms. Porras was last seen in 04/2014. Joan Fregoso documented in this encounter Plan of Treatment Upcoming Encounters Date Type Department Care Team (Late st Contact Info) Description 01/27/2024 1:00 PM EST Appointment Non-[place] [address] Anton Márquez MD [facility] [place] [address] 01/27/2024 3:00 PM EST Office Visit Cardiology at [address] [address] Anton Márquez MD [facility] [place] [address] documented as of this encounter Visit Diagnoses Not on filedocumented in this encounter Care Teams Packing Room Worker Relationship Specialty Start Date End Date Rustam Coppola MD [address] [place] [id number] PCP - General 06/30/13 05/30/18 documented as of this encounter
--- OUTSIDE RECORDS SUMMARY | 2024-01-03 13:13 | XMS_ITS | Encounter Summary ---
Author Organization [facility] [place] [address] Care Team Providers Care Early Childhood Education Coordinator Name Role Phone Rustam Coppola MD Primary Care Provider [phone] Encounter Details Date Type Department Care Team (Late st Contact Info) Description 11/06/2013 Abstract Cardiology at [address] [phone] Pao Johnson LPN Social History Tobacco Use Types Packs/Day Years [...] 1:00 PM EST Appointment Non-[place] [address] Anton Márquez MD [facility] [place] [address] 01/27/2024 3:00 PM EST Office Visit Cardiology at [address] [phone] Anton Márquez MD [facility] [place] [address] documented as of this encounter Visit Diagnoses Not on filedocumented in this encounter Care Teams Early Childhood Education Coordinator Relationship Specialty Start Date End Date Rustam Coppola MD [address] [place] [id number] PCP - General 06/30/13 05/30/18 documented as of this encounter
--- OUTSIDE RECORDS SUMMARY | 2024-01-03 13:13 | XMS_ITS | Encounter Summary ---
[place] [address] Care Team Providers Care Cad Manager Name Role Phone Rustam Coppola MD Primary Care Provider [phone] Encounter Details Date Type Department Care Team (Latest Contact Info) Description 05/09/2014 9:50 AM EST - 05/09/2014 11:59 PM EST Hospital Encounter Non-Invasive [place] [phone] CARDIO, ECHO SIXTY MIN APPT None Cardiomyopathy Discharge Disposition: Home Social History Tobacco Use [...] Sig Dispensed Refills Start Date End Date enalapril (VASOTEC) 2.5 mg Tablet Take 1 tablet by mouth 2 times daily. 60 tablet 2 05/09/2014 07/10/2014 metoprolol succinate (TOPROL-XL) 25 mg Tablet Sustained Release 24 hr Take 1 tablet by mouth daily. 30 tablet 2 05/09/2014 03/29/2017 documented as of this encounter Plan of Treatment Upcoming Encounters Date Type Department Care Team (Late st Contact Info) Description 01/27/2024 1:00 PM EST Appointment Non-Invasive [place] [address] Anton Márquez MD [facility] [place] [address] 01/27/2024 3:00 PM EST Office Visit Cardiology at [address] [phone] Anton Márquez MD [facility] [place] [address] documented as of this encounter Procedures Procedure Name Priority Date/Time Associated Diagnosis Comments ECHOCARDIOGRAM TRANSTHORACIC Routine 05/09/2014 11:00 AM EST Cardiomyopathy documented in this encounter Results * Echocardiogram Transthoracic(Leb) (05/09/2014 11:00 AM EST) EF 34 HEARTLAB SYSTEM Anatomical Region Laterality Modality Other 05/09/2014 Narrative 05/09/2014 11:19 AM EST Procedure: ? Transthoracic Echocardiogram Patient: ? JORDON Polo ?(Age): 1995(18) Med Rec#: ?[id number] ? Sex: ?F ? [place] Ht / Wt: ??174(cm)/105.5(k Pt. Loc: ? Echo Lab ? BSA: ?2.26 Study Date: ?05/09/2014 ? Pt. Type: Outpatient Tape: ? Referring: Chau Felder ([id number]) Referring: ABHIJEET CRESPO L Workers Compensation Consultant: Sheree Garcia Diagnosis: ??Cardiomyopathy (425.4) CPT Code(s): ??Spectral Doppler (60865), ??Color Doppler (77760), ??Echo Full (78617), Indication(s): ??Congestive heart failure Rhythm: HR ?BP ?113/70 ?? SUMMARY: 1. Technically difficult study; limited apical imaging window. ??The patient declined contrast imaging. ?? 2. The left ventricle is moderately dilated. ??The apex may have prominent trabeculations. ??The quantitative left ventricular ejection fraction is 34% (modified Gee). ??There is diffuse hypokinesis present. 3. The right ventricle is normal in size. ??Right ventricular global systolic function is mildly reduced. ??Pulmonary artery hypertension could not be assessed due to inadequate tricuspid regurgitation jet. 4. The left atrium is normal in size.(26 ml/m2) 5. There is no hemodynamically significant valve disease. 6. See remainder of report for additional findings. ??Compared to the TTE performed 10/04/13, findings are similar. ?? FINDINGS: Study Quality ?Technically limited Left Ventricle ?The left ventricle is moderately dilated. ?Left ventricular wall thickness is normal. ?Global left ventricular systolic function is moderately reduced. Ejection fraction is estimated to be 35%. ?The quantitative left ventricular ejection fraction is34% (modified Gee). ?There is diffuse hypokinesis present. ?Left sided filling pressure could not be assessed by Doppler. ?The ??basal anteroseptal, basal anterior, basal anterolateral, basal inferolateral, basal inferior, basal inferoseptal, mid anteroseptal, mid anterior, mid anterolateral, mid inferolateral, mid inferior, mid inferoseptal, apical septal, apical anterior, apical lateral and apical inferior wall segments are hypokinetic. ?A false chord is observed in the left ventricle. Left Atrium ?The left atrium is normal in size.(26 ml/m2) Right Ventricle ?The right ventricle is normal in size. ?Right ventricular wall thickness is normal. ?Right ventricular global systolic function is mildly reduced. ?Pulmonary artery hypertension could not be assessed due to inadequate tricuspid regurgitation jet. ?The estimated right atrial pressure is 3 mmHg. Right Atrium ?The right atrium is normal in size. Aortic Valve ?The aortic valve is probably tricuspid. ?There is no evidence of aortic valve stenosis. ?There is no evidence of aortic regurgitation. Mitral Valve ?The mitral valve appears normal in structure and function. ?There is mild (1+/4+) mitral regurgitation present. Tricuspid Valve ?The tricuspid valve appears normal in structure and function. ?There is trace tricuspid regurgitation present. Pulmonic Valve ?The pulmonic valve appears normal in structure and function. Pericardium ?The pericardium appears normal and there is no evidence of a pericardial effusion. Aorta ?The aortic root is normal in size. ?The ascending aorta is normal in size. Pulmonary Artery ?The main pulmonary artery appears normal. Venous ?The inferior vena cava appears normal in size. ?There is a greater than 50% respiratory change in the inferior vena cava dimension. Misc ?There is no hemodynamically significant valve disease. ?Technically difficult study. ?See remainder of report for additional findings. ?Two-dimensional echo, spectral Doppler and color Doppler performed. Wall Motion: Segment Name ?Rest ? Base-Anteroseptal ?? Hypokinetic ? Base-Anterior ? Hypokinetic ? Base-Anterolateral ??Hypokinetic ? Base-Posterolateral Hypokinetic ? Base-Inferior ? Hypokinetic ? Base-Inferoseptal ?? Hypokinetic ? Mid-Anteroseptal ?Hypokinetic ? Mid-Anterior ?Hypokinetic ? Mid-Anterolateral ?? Hypokinetic ? Mid-Posterolateral ??Hypokinetic ? Mid-Inferior ?Hypokinetic ? Mid-Inferoseptal ?Hypokinetic ? [place]-Septal ? Hypokinetic ? [place]-Anterior ? Hypokinetic ? [place]-Lateral ?Hypokinetic ? [place]-Inferior ? Hypokinetic ? [place]-Tip ?Hypokinetic ? Chambers ?Value ?Units (Range) ? LV EF Est ? 35 ? % (55 to 80) ? IVSd 2D ? 0.6 ?cm ? LVIDd 2D ?6.1 ?cm ? PWd 2D ?0.9 ?cm ? LVIDs 2D ?4.9 ?cm ? LVFS 2D ? 19 ? % ? LA area ? 17 ? cm2 (<21) ? RA area ? 14 ? cm2 (<18) ? Ao root ? 2.7 ?cm (2.1 to 3.6) ? Asc Ao ?2.4 ?cm (2 to 3.5) ? Mitral Valve ?Value ?Units (Range) ? E peak ?0.88 ? m/sec ? E/A ratio ? 1.7 ?ratio ? MVDT ?137 ?msec ? E1 ?0.08 ? m/sec ? E/E1 ?11 ? ratio ? Tricuspid/Pulmonic Valves ?Value ?Units (Range) ? RAP ? 3 ?mmHg ? This report has been electronically signed by: Maicol Hart. ? 05/09/2014 11:18:50 Images reviewed and interpretation verified [facility] Cardiac Ultrasound Laboratory Procedure Note Maicol Hart MD - 05/09/2014 Procedure: Transthoracic Echocardiogram Patient: JORDON Polo (Age): 1995(18) Med Rec#: [id number] Sex: F [place] [facility] Ht / Wt: 174(cm)/105.5(k Pt. Loc: Echo Lab BSA: 2.26 Study Date: 05/09/2014 Pt. Type: Outpatient Tape: Referring: Chau Felder ([id number]) Referring: ABHIJEET CRESPO L Workers Compensation Consultant: Sheree Garcia Diagnosis: Cardiomyopathy (425.4) CPT Code(s): Spectral Doppler (14342), Color Doppler (60799), Echo Full (53691), Indication(s): Congestive heart failure Rhythm: HR BP 113/70 SUMMARY: 1. Technically difficult study; limited apical imaging window. The patient declined contrast imaging. 2. The left ventricle is moderately dilated. The apex may have prominent trabeculations. The quantitative left ventricular ejection fraction is 34% (modified Gee). There is diffuse hypokinesis present. 3. The right ventricle is normal in size. Right ventricular global systolic function is mildly reduced. Pulmonary artery hypertension could not be assessed due to inadequate tricuspid regurgitation jet. 4. The left atrium is normal in size.(26 ml/m2) 5. There is no hemodynamically significant valve disease. 6. See remainder of report for additional findings. Compared to the TTE performed 10/04/13, findings are similar. FINDINGS: Study Quality Technically limited Left Ventricle The left ventricle is moderately dilated. Left ventricular wall thickness is normal. Global left ventricular systolic function is moderately reduced. Ejection fraction is estimated to be 35%. The quantitative left ventricular ejection fraction is34% (modified Gee). There is diffuse hypokinesis present. Left sided filling pressure could not be assessed by Doppler. The basal anteroseptal, basal anterior, basal anterolateral, basal inferolateral, basal inferior, basal inferoseptal, mid anteroseptal, mid anterior, mid anterolateral, mid inferolateral, mid inferior, mid inferoseptal, apical septal, apical anterior, apical lateral and apical inferior wall segments are hypokinetic. A false chord is observed in the left ventricle. Left Atrium The left atrium is normal in size.(26 ml/m2) Right Ventricle The right ventricle is normal in size. Right ventricular wall thickness is normal. Right ventricular global systolic function is mildly reduced. Pulmonary artery hypertension could not be assessed due to inadequate tricuspid regurgitation jet. The estimated right atrial pressure is 3 mmHg. Right Atrium The right atrium is normal in size. Aortic Valve The aortic valve is probably tricuspid. There is no evidence of aortic valve stenosis. There is no evidence of aortic regurgitation. Mitral Valve The mitral valve appears normal in structure and function. There is mild (1+/4+) mitral regurgitation present. Tricuspid Valve The tricuspid valve appears normal in structure and function. There is trace tricuspid regurgitation present. Pulmonic Valve The pulmonic valve appears normal in structure and function. Pericardium The pericardium appears normal and there is no evidence of a pericardial effusion. Aorta The aortic root is normal in size. The ascending aorta is normal in size. Pulmonary Artery The main pulmonary artery appears normal. Venous The inferior vena cava appears normal in size. There is a greater than 50% respiratory change in the inferior vena cava dimension. Misc There is no hemodynamically significant valve disease. Technically difficult study. See remainder of report for additional findings. Two-dimensional echo, spectral Doppler and color Doppler performed. Wall Motion: Segment Name Rest Base-Anteroseptal Hypokinetic Base-Anterior Hypokinetic Base-Anterolateral Hypokinetic Base-Posterolateral Hypokinetic Base-Inferior Hypokinetic Base-Inferoseptal Hypokinetic Mid-Anteroseptal Hypokinetic Mid-Anterior Hypokinetic Mid-Anterolateral Hypokinetic Mid-Posterolateral Hypokinetic Mid-Inferior Hypokinetic Mid-Inferoseptal Hypokinetic [place]-Septal Hypokinetic [place]-Anterior Hypokinetic [place]-Lateral Hypokinetic [place]-Inferior Hypokinetic [place]-Tip Hypokinetic Chambers Value Units (Range) LV EF Est 35 % (55 to 80) IVSd 2D 0.6 cm LVIDd 2D 6.1 cm PWd 2D 0.9 cm LVIDs 2D 4.9 cm LVFS 2D 19 % LA area 17 cm2 (<21) RA area 14 cm2 (<18) Ao root 2.7 cm (2.1 to 3.6) Asc Ao 2.4 cm (2 to 3.5) Mitral Valve Value Units (Range) E peak 0.88 m/sec E/A ratio 1.7 ratio MVDT 137 msec E1 0.08 m/sec E/E1 11 ratio Tricuspid/Pulmonic Valves Value Units (Range) RAP 3 mmHg This report has been electronically signed by: Maicol Hart 05/09/2014 11:18:50 Images reviewed and interpretation verified [facility] Cardiac Ultrasound Laboratory Chau Felder MD ECHO ORDERABLES documented in this encounter Visit Diagnoses Diagnosis Cardiomyopathy Other primary cardiomyopathies documented in this encounter Care Teams Cad Manager Relationship Specialty Start Date End Date Rustam Coppola MD [address] [address] PCP - General 06/30/13 05/30/18 documented as of this encounter
--- OUTSIDE RECORDS SUMMARY | 2024-01-03 13:13 | XMS_ITS | Encounter Summary ---
[place] [address] Care Team Providers Care Director Cardiovascular Name Role Phone David Aldrich MD Primary Care Provider [phone] Encounter Details Date Type Department Care Team (Latest Contact Info) Description 10/04/2013 3:01 PM EDT - 10/12/2013 6:06 PM EDT [place] [id number] Mare Smith MD [facility] [place] [address] Alexandr Castaneda MD [facility] [place] [address] Cardiomyopathy; High risk teen , third trimester; High risk teen , unspecified trimester; Sinus tachycardia Discharge Disposition: Home Social History Tobacco Use [...] Sign Reading Time Taken Comments Blood Pressure 118/67 10/12/2013 3:42 PM EDT Pulse 95 10/12/2013 11:52 AM EDT Temperature 37 ??C (98.6 ??F) 10/12/2013 8:10 AM EDT Respiratory Rate 18 10/12/2013 11:5 2 AM EDT Oxygen Saturation 97% 10/12/2013 11: 52 AM EDT Inhaled Oxygen Concentration - - Weight 105.5 kg (232 lb 9.4 oz) 014 10:14 AM EDT Height 174 cm (5' 8.5) 10/04/2013 4:25 PM EDT Body Mass Index 34.88 10/04/2013 4:25 PM EDT Body Mass Index Percentile 97.68% 10/11/2013 6:2 6 AM EDT Growth Chart: [facility] (Girls, 2- 20 Years) documented in this encounter Discharge Instructions * Discharge Instructions* Clarence Otto RN - 10/12/2013 3:49 PM EDT Nursing Inpatient Progress C - Section Follow-up Follow-ups: 6 week follow up appointment will be scheduled for you and your appointment card will come in the mail. If you do not receive your appointment card within 4 weeks please call your OB provider. Maternal Discharge Instructions Rest: Although it may seem impossible to get enough rest, simple planning will help. Try to get at least one four hour block of uninterrupted sleep in 24 hours; then plan to rest, and/or sleep when your baby does. Limiting visitors also helps. Fathers and other family members can help by doing housework, caring for other children and/or helping limit visitors. Activity: After delivery, it is safe to climb stairs at home. Do not lift anything heavierthan your baby for two weeks. Do not drive for two weeks or while taking pain medicine that contains a narcotic as your reaction time may be decreased. Nutrition: Your diet following the of your baby is as important as it was before the baby wasborn. Drink a minimum of 6-8 glasses a day. Do not attempt to lose weight during the first six weeks. Continue taking your vitamins until they are gone. Lochia: (Flow) Your flow should be no heavier than a normal period. It will be bright red for 2-3 days and then pinkish and finally colorless. If your flow becomes bright red again, decrease your activity. Do not use tampons until your care provider advises you it is OK. Incision: Wash the incision with soap and water and pat dry. It is normal to have clear or pinkish fluid seep from the incision. Gauze pads or sanitary napkins may help to keep the incision dry if itis located in a fold under your tummy. If the incision has more redness, yellow drainage, or becomes more painful, contact the obstetrics clinic. Breast Care for Formula feeding mothers: Wear a well fitting bra to support your breasts. Ice packsto your breasts and Tylenol or Ibuprofen may be used to relieve discomfort from engorgement. Avoid stimulating your breasts: Do not let warm water from the shower fall on them; avoid holding your baby near your breasts until your milk begins to decrease and engorgement is relieved. Breast feeding mothers: Practice careful positioning and frequent feeding as demonstrated in the hospital. The printed information in your packet covers this in detail. Call your doctor or gas distribution plant operator for: Fever more than 100.5 Heavy bleeding that saturates a pad an hour Clots larger than a plum Increased abdominal pain, nausea, shaking chills Increased redness or soreness over your incision Breast with hot, hard, tender areas on the breast plus flu-like symptom depression occurs in a large percentage of women. We encourage you to contact your provider or a member of the nursing staff if you are feeling so overwhelmed that you are unable to care for yourself or your baby. Keep your follow up appointment. You may call the [facility] at any time for guidance or for answers to questions that come up prior to you follow up appointment. Your [facility] Provider can be reached during office hours at [facility] Follow-up Clinic AFTER OFFICE HOURS for the critical care paramedic or gas distribution plant operator web content manager Provider electronic signature confirms that discharge instructions were reviewed with the patient. A copy was printed and given to the patient. * Patient Instructions* Yue Wyatt MD - 10/12/2013 4:06 PM EDT Specific instructions related to your condition: 1) Please keep track of your body weight and breathing. If your weight is increasing, you are breathing heavily during exertion, and/or your legs are swelling, you may need a medication to help your body get rid of extra fluid because of your heart condition. If you have any of these symptoms, please call Dr. Gallegos right away. 2) Please take enalapril 2.5 mg (1 tablet) twice a day, and the increased dose of metoprolol XL (100mg) once daily documented in this encounter Medications at Time of Discharge Medication Sig Dispensed Refills Start Date End Date enalapril (VASOTEC) 2.5 mg tablet Take 1 tablet by mouth 2 times daily. 60 tablet 11 10/12/2013 05/09/2014 metoprolol succinate (TOPROL-XL) 100 mg XL tablet Take 1 tablet by mouth daily. 30 tablet 12 10/12/2013 05/09/2014 oxyCODONE-acetaminophen (PERCOCET) 5-325 mg per tablet Take 1-2 tablets by mouth every 4 hours as needed for Pain. 30 tablet 0 10/12/2013 05/09/2014 pediatric multivitamin with iron chewable tablet Take 1 tablet by mouth daily. 05/09/2014 documented as of this encounter Progress Notes * Alexandr Castaneda MD - 10/12/2013 11:09 AM EDT Inpatient Cardiology Progress Note Patient: On License Of [facility] Day 8 days 24 hour Events/Subjective: - Developed maculopapular rash, determined to be PUPS, given lotion - Denies CP/SOB/CAMPUZANO/n/v/diaphoresis - Leg pain improving today with ambulation. Physical Examination: Vitals: 37 85-101 16-18 91-119/60-65 98% Intake/Output Summary (Last 24 hours) at 10/12/13 1115 Last data filed at 10/12/13 1000 Gross per 24 hour Intake 900 ml Output 200 ml Net 700 ml cumulative I/O's since admission: Patient Vitals for the past 168 hrs: Weight 10/12/13 1014 105.5 kg (232 lb 9.4 oz) 10/11/13 0626 105.6 kg (232 lb 12.9 oz) 10/10/13 0900 109.7 kg (241 lb 13.5 oz) Gen: NAD breathing comfortably on room air. CV: Regular rate, rhythm, no murmurs/rubs/gallops; equal distal pulses Pulm: CTA-B, no wheezes rales or rhonchi Abd: Incision line appropriately tender to palpation, c/d/i. Ext: No C/C, mild LE edema, PICC line in place, maculopapular rash over shoulders. Laboratory: Recent Labs Basename 10/10/13 0805 WBC 13.5* HGB 9.1* PLATELET 227 Recent Labs Basename 10/10/13 0805 NA 139 K 4.2 CL 103 CO2 25 BUN 8* CREATININE 0.46 Recent Labs Basename 10/10/13 0805 CALCIUM 8.9 MAGNESIUM 0.69 PHOS -- Diagnostics: None MEDICATIONS: Continuous Infusions: ??? [DISCONTINUED] fentaNYL 2 mcg/mL with BUpivacaine 0.125% (1.25 mg/mL) (1/8%) in NS(PF) 7 mL/hr (10/09/13 0650) Scheduled Meds: ??? enalapril 2.5 mg Oral BID ??? metoprolol tartrate 25 mg Oral Q6H MIKA ??? [] metoprolol tartrate 12.5 mg Oral Once ??? enoxaparin 40 mg Subcutaneous Daily ??? docusate sodium 100 mg Oral BID ??? polyethylene glycol (MIRALAX)oral powder 17 g Oral Daily ??? [DISCONTINUED] lisinopril 10 mg Oral Daily ??? pediatric multivitamin 1 tablet Oral Daily ??? sodium chloride 0.9 % 5 mL Intravenous BID PRN Meds:.ibuprofen, bisacodyl, oxyCODONE, camphor-menthol, simethicone, acetaminophen Assessment/Plan: 18yo F with PMHx viral cardiomyopathy at 4 months of age, presenting at 36 weeks gestation forinduction of high risk with decline in LVEF to 35- 40%, now s/p POD 2, no clinical evidence of heart failure. No tachycardia overnight. Added enalapril 10/12 based on recommendations by OB, safe in . Concern that she may not be diuresing enough based on daily weights,however her I/O has met expectations, she is net negative about 5 L over the course of hospitalization. We will continue to take daily weights on a standing scale only in order to improve accuracy. We have a low threshold to diurese. Plan as below: CHF: - Increased lopressor to 25 Q6 hours - Added enalapril 2.5 BID - Continue to monitor for symptoms of CHF exacerbation during post- diuresis - Have daily weights taken on standing scale for accuracy s/p C/S: -OBGYN following, we will follow their recs. - Oxycodone PO for pain. FEN/PPX: -DVT: ambulating -FEN/Diet: Regular diet replace K/Mg for goal 06/13 -Access: PICC -Code Status: Full code -DISPO: pending OB recs, likely Tomorrow Jayde Humphries PGY-1 Internal Medicine S1 TEAM PAGER #[phone] 10/12/2013 Staff Rounding Addendum: I interviewed and examined the patient during comprehensive bedside rounds with Dr. Humphries. I agree with the summary of interval events, active hospital- focused problem list and plan of care. I personally reviewed the medications, laboratory results, treatment decisions and updated the patient on all of these elements. The assessment and plan were developed in discussion between Dr. Humphries and myself. Alexandr Castaneda MD Staff Overhead [employer]ane Truck Loader Pager #[phone] * Astrid Lopez, DIRECTOR EXTERNAL COMMUNICATIONS - 10/12/2013 10:14 AM EDT S/O: Met with Pt Mary in room on BP. Mary's cousin was present and holding the baby during this encounter. Mary gave to baby boy Julian on 10/08 at 37 weeks gestation. Mary lives in [place], [place] with her mother, step father and two younger siblings. The FOB, Petr, also lives with them in the home. Mary stated that it is a very large 3 bedroom apartment and that there is enough room for all of them. Mary is currently taking online classes to complete her high school education. Petr is two classes away from completion and is working on this as well. Neither Mary nor Petr are employed but he is actively looking while Mary will seek employment after spending some time with her baby. She reports having excellent supports at home and has a good network of extended family and friends outside the home. She denies any concern regarding PPD nor does she have a history of depression or anxiety. Briefly discussed PPD and encouraged her to review the information on it that is enclosed in her packet of information. Mary reported having everything she needs for the baby and that she is taking him to [facility] because she doesn't like any of the pediatricians in [facility]. A: Mary is a 18 year old teenage mother who is recovering from the of her first child on 10/08 via . Mary was pleasant although challenging to engage. She was not verbose nor did she volunteer much information even when asked. There are several risk factors in this situation including: teenage parents with their first child; maternal history of cardiomyopathy which resulted russ difficult recovery from delivery; limited financial means; questionable transportation availability and at risk for PPD. The strengths include: good family support; good support from the FOB; stable housing; no known history of depression or anxiety and no known history of ETOH or illicit drug use. Overall Mary seems to be doing well but would be worth a 2 or 6 week post check up to determine how things are going. P: No further SW intervention is needed at this time. MARTINA Atkins, [facility] Pager #[phone] * Marita Sprague MD - 10/12/2013 7:42 AM EDT Obstetrics Consultation / Delivery Note ID: 18yo F with PMH of viral cardiomyopathy s/p induction of labor at 37 weeks, now s/p for non-reassuring status, under cardiology supervision due to worsening cardiomyopathy (LVEF 35%) without clinical e/o heart failure. Today is POD#4 Interval Events: - patient started on ACEI (lisinopril) per cardiology team Subjective: The patient has no complaints this morning and reports feeling well. Incisional pain well controlled on tylenol, motrin, and oxycodone. Ambulating without weakness/dizziness, tolerating aregular diet without nausea/vomiting, voiding spontaneously, and passing flatus and had a bowel movement. She denies chest pain, shortness of breath. Lochia moderate. and bottle feedingfor infant nutrition. Review of Systems: 6 systems reviewed, otherwise negative Weight - Scale: 105.6 kg (232 lb 12.9 oz) Physical Exam: Last value Range last 24 hrs Temperature Temp: 37 ??C (98.6 ??F) Temp: [36.5 ??C (97.7 ??F)-37 ??C (98.6 ??F)] Heart Rate Heart Rate: 102 Heart Rate: [85-113] Blood Pressure BP: 117/53 mmHg BP: (91-119)/(31-71) Respiratory Rate Resp: 18 Resp: [16-18] SpO2 SpO2: 98 % SpO2: [98 %] No intake or output data in the 24 hours ending 10/12/13 0742 Gen: appears well, in no acute distress Cardiac: RRR, S1, S2, no rub/gallop/murmur Pulm: CTAB, no rales/wheeze/rhonchi Abd: soft, symmetric, mildly tender at incision, nondistended, BS hypoactive Incision: clean/dry/intact, well approximated with glynn (T-skin incision/vertical extension of Pfannensteil), no erythenma/exudate Extremities: symmetric, nontender, trace edema Recent Labs Basename 10/10/13 0805 10/09/13 0335 10/08/13 0700 WBC 13.5* 12.9 18.0* HGB 9.1* 9.8* 10.3* HCT 29.6* 31.1* 33.1* PLATELET 227 224 264 Recent Labs Basename 10/10/13 0805 10/09/13 0335 10/08/13 0700 NA 139 133* 139 K 4.2 4.0 4.1 CL 103 100 106 CO2 25 25 21* BUN 8* 9* 9* CREATININE 0.46 0.63 0.57 MAGNESIUM 0.69 -- -- PHOS -- -- -- Immunization status: Up to date for rubella per admission labs Assessment & Plan 18 y.o. woman who presented as a female w/history of cardiomyopathy with LVEF 35%, now POD #4 s/p primary C/S for NRFHT complicated by difficult extraction of the head. Patient is doing well in the postoperative period. UOP not recorded in past 24 hours, but clinically euvolemic and hemodynamically stable. o Will discuss need for strict I/O with nursing given patient's risk of volume overload Infant nutrition: breast Cardiac: Management per cardiology team. Continue Lopressor 12.5 BID, lisinopril (relatively contraindicated in ) - if pt. Still , will recommend switching to captropil or enalapril (safe with breastfeeding0 Contraception: patient considering mirena IUD (info provided) and would like to f/u with primary/referring OB (Leon Hoang MD) for insertion/6wk visit Right leg pain: Now resolved Pain: oxycodone, tylenol, ibuprofen care: 6 week visit with ?mirena IUD insertion. Cardiology f/u per primary team PPX: Lovenox 40mg subq daily until discharge Disposition: continue care, anticipate d/c tomorrow. o Will arrange for f/u visit 7-10 days after discharge for staple removal and for cardiology f/u Assessment Management of Additional Medical Issues ?? Anemia: Iron po daily upon discharge ?? Immunization: f/u varicella titers, f/u TDaP last dose This patient was seen and discussed on rounds SIDNEY CANELA MD PGY-4 10/12/2013 Feels well. Ambulating without difficulty. No chest pain, dyspnea or palpitations. Bleeding is minimal. Tolerating diet. Urinating without difficulty. Temp: [37 ??C (98.6 ??F)] Heart Rate: [95-102] Resp: [18] BP: (91-117)/(31-65) SpO2: [97 %-98 %] Appears well, cheerful Abd: obese, nontender. Wound clean dry and intact Ext: no edema Skin Diffuse pale papular rash Impression POD4 after primary for nonreassuring heart rate pattern. The procedure was complicated by difficulty extracting the head. The baby has done very well. Her recovery hasbeen normal Longstanding diagnosis of dilated cardiomyopathy. She tolerated and delivery very well including the diuresis. Never had any evidence of left or right heart failure Plan: Discharge today or tomorrow pending the baby's discharge planning Rest of wound care supervision by her local critical care paramedic Will take an ZEUS inhibitor and beta sunitha Contraception plan to be formalized by Dr. Hoang. Marita Sprague MD * Kami Valladares RN - 10/11/2013 5:08 PM EDT Pt arrived to room with FOB and infant from [facility]. VSS. Patient rating abd pain 2/10 and denying needfor PRN pain medications. Pt denies chest pain/shortness of breath, dizziness, and/or headaches. See flow sheet for head to toe assessment. Spoke to patient about/encouraged hydration, diet, ambulation, hygiene, frequent hand-washing, and rest. Pt verbalizes an understanding. Pt instructed to ring c all núñez for assistance; pt verbalizes an understanding. 1711 - Dr. Sprague at bedside. * Kami Valladares RN - 10/11/2013 2:54 PM EDT 1442 - Received report on patient and assumed care of patient. 1450 - Pt not in room at this time. Will assess patient when patient returns. * Sylvie Hurst RN - 10/11/2013 2:42 PM EDT Pt arrive to floor via w/c accompanied by s.o. Oriented to room, VS taken and settled in. Pt showing facial grimacing with movement, and noted pt had not received pain medication since 2100 last night. Discussed with pt pain management to be able to function her role when her infant came to the room with her. Pt agreed to take oxycodone 10mg for discomfort. Pt c/o her incision feeling like it wasripping apart. Incision well approximated, glynn intact, but some pulling up from the skin. notified, and stated she would assess incision. Pt also c/o increased pain on right side, noted small broken blisters where tape was. Report given to Gi Valladares Rn who assumed care. * Marita Sprague MD - 10/11/2013 7:30 AM EDT Obstetrics Consultation / Delivery Note ID: 18yo F with PMH of viral cardiomyopathy s/p induction of labor at 37 weeks, now s/p for non-reassuring status, under cardiology supervision due to worsening cardiomyopathy (LVEF 35%) without clinical e/o heart failure. Today is POD#3 Interval Events: - none Subjective: The patient has no complaints this morning. She reports incisional pain mostly R sided,well controlled with oral oxycodone and tylenol. She is ambulating without weakness/dizziness, tolerating a regular diet without nausea/vomiting, voiding spontaneously, and passing flatus. No BM yet.She denies chest pain, shortness of breath. Lochia moderate. LE pain now resolved. Review of Systems: 6 systems reviewed, otherwise negative Weight - Scale: 105.6 kg (232 lb 12.9 oz) Physical Exam: Vitals Last value Range last 24 hrs Temperature Temp: 37 ??C (98.6 ??F) Temp: [36.3 ??C (97.3 ??F)-37.3 ??C (99.1 ??F)] Heart Rate Heart Rate: 111 Heart Rate: [102-111] Blood Pressure BP: 110/66 mmHg BP: (96-119)/(55-77) Respiratory Rate Resp: 18 Resp: [16-20] SpO2 SpO2: 95 % SpO2: [95 %-99 %] Intake/Output Summary (Last 24 hours) at 10/11/13 0710 Last data filed at 10/11/13 0626 Gross per 24 hour Intake 1190 ml Output 1500 ml Net -310 ml Gen: appears well, in no acute distress Cardiac: RRR, S1, S2, no rub/gallop/murmur Pulm: CTAB, no rales/wheeze/rhonchi Abd: soft, symmetric, mildly tender at incision, nondistended, BS hypoactive Incision: clean/dry/intact, well approximated with glynn (T-skin incision/vertical extension of Pfannensteil), no erythenma/exudate Extremities: symmetric, nontender, trace edema Recent Labs Basename 10/10/13 0805 10/09/13 0335 10/08/13 0700 WBC 13.5* 12.9 18.0* HGB 9.1* 9.8* 10.3* HCT 29.6* 31.1* 33.1* PLATELET 227 224 264 Recent Labs Basename 10/10/13 0805 10/09/13 0335 10/08/13 0700 NA 139 133* 139 K 4.2 4.0 4.1 CL 103 100 106 CO2 25 25 21* BUN 8* 9* 9* CREATININE 0.46 0.63 0.57 MAGNESIUM 0.69 -- -- PHOS -- -- -- Immunization status: Up to date for rubella per admission labs Assessment & Plan 18 y.o. woman who presented as a female w/history of cardiomyopathy with LVEF 35%, now POD #3 s/p primary C/S for NRFHT complicated by difficult extraction of the head. Patient is doing well in the postoperative period. Patient with decreased UOP over the past 24 hrs,but clinically euvolemic and hemodynamically stable. nutrition: breast Cardiac: Management per cardiology team. Continue Lopressor 12.5 BID, ACEI held for Contraception: patient considering mirena IUD vs. Combined OCPs Right leg pain: Improved now with ambulation - if recurrent/persistent, consider duplex LE Pain: oxycodone, tylenol, dilaudid prn, consider addition of ibuprofen today care: 6 week visit with ?mirena IUD insertion. Cardiology f/u per primary team PPX: Lovenox 40mg subq daily until discharge Disposition: continue care, anticipate d/c POD #4 Assessment Management of Additional Medical Issues ?? Anemia: Iron po daily upon discharge ?? Immunization: f/u varicella titers, f/u TDaP last dose This patient was seen and discussed on rounds SIDNEY CANELA MD PGY-4 10/11/2013 --- Attending note I saw patient on rounds and agree with Dr. Canela's note above. The patient reports feeling well. Her bleeding is diminishing, and she is voiding without difficulty. She has adequate analgesia. She denies chest pain, shortness of breath or palpitations. She is able to ambulate. Temp: [36.5 ??C (97.7 ??F)-37.3 ??C (99.1 ??F)] Heart Rate: [96-113] Resp: [16-20] BP: (96-114)/(55-71) SpO2: [95 %-99 %] Abdomen: soft, appropriately tender, fundus below umbilicus Wound: clean, dry, intact Ext: nontender, mod edema Impression: POD 3 after primary low transvere at 36 weeks for nonreassuring heart rate pattern complicated by difficult delivery of head at breech extraction. She is now doing well from a surgical standpoint. Longstanding cardiomyopathy. She tolerated and delivery well. She tolerated the postop/ mobilization of fluid. Plan: Continue routine postoperative care. Watch for evidence of pulmonary edema and peripheral edema. Will investigate with cardiology if she can be discharged tomorrow. Marita Sprague MD * Alexandr Castaneda MD - 10/11/2013 5:43 AM EDT Inpatient Cardiology Progress Note Patient: On License Of [facility] Day 7 days Active Problems: 24 hour Events/Subjective: - Developed maculopapular rash, determined to be PUPS, given lotion - Denies CP/SOB/CAMPUZANO/n/v/diaphoresis - Leg pain improving today with ambulation. Physical Examination: Vitals: Last value Range last 24 hrs Temperature Temp: 36.9 ??C (98.4 ??F) Temp: [36.3 ??C (97.3 ??F)-37.3 ??C (99.1 ??F)] Heart Rate Heart Rate: 104 Heart Rate: [102-110] Blood Pressure BP: 111/69 mmHg BP: (96-119)/(55-77) Respiratory Rate Resp: 16 Resp: [16-20] SpO2 SpO2: 95 % SpO2: [95 %-99 %] TELEMETRY: sinus tach 100-140 Intake/Output Summary (Last 24 hours) at 10/11/13 0543 Last data filed at 10/11/13 0000 Gross per 24 hour Intake 1190 ml Output 1000 ml Net 190 ml cumulative I/O's since admission: Patient Vitals for the past 168 hrs: Weight 10/10/13 0900 109.7 kg (241 lb 13.5 oz) 10/05/13 0504 108.4 kg (238 lb 15.7 oz) 10/04/13 1625 108.6 kg (239 lb 6.7 oz) Gen: NAD breathing comfortably on room air. CV: Regular rate, rhythm, no murmurs/rubs/gallops; equal distal pulses Pulm: CTA-B, no wheezes rales or rhonchi Abd: Incision line appropriately tender to palpation, c/d/i. Ext: No C/C, mild LE edema, PICC line in place, maculopapular rash over shoulders. Laboratory: Recent Labs Basename 10/10/13 0810/09/1333410/08/13 0700 WBC 13.5* 12.9 18.0* HGB 9.1* 9.8* 10.3* PLATELET 227 224 264 Recent Labs Basename 10/10/13 0810/09/1333410/08/13 0700 NA 139 133* 139 K 4.2 4.0 4.1 CL 103 100 106 CO2 25 25 21* BUN 8* 9* 9* CREATININE 0.46 0.63 0.57 Recent Labs Basename 10/10/13 0805 10/09/1333410/08/13 0700 CALCIUM 8.9 8.8 8.6 MAGNESIUM 0.69 -- -- PHOS -- -- -- Diagnostics: None MEDICATIONS: Continuous Infusions: ??? fentaNYL 2 mcg/mL with BUpivacaine 0.125% (1.25 mg/mL) (1/8%) in NS(PF) 7 mL/hr (10/09/13 0650) Scheduled Meds: ??? [COMPLETED] enoxaparin 40 mg Subcutaneous Once ??? metoprolol tartrate 12.5 mg Oral Q6H MIKA ??? [DISCONTINUED] metoprolol tartrate 25 mg Oral Q6H MIKA ??? [DISCONTINUED] metoprolol tartrate 12.5 mg Oral Q6H MIKA ??? pediatric multivitamin 1 tablet Oral Daily ??? sodium chloride 0.9 % 5 mL Intravenous BID PRN Meds:.oxyCODONE, HYDROmorphone, camphor-menthol, simethicone, acetaminophen Assessment/Plan: 18yo F with PMHx viral cardiomyopathy at 4 months of age, presenting at 36 weeks gestation forinduction of high risk with decline in LVEF to 35- 40%, now s/p POD 2, no clinical evidence of heart failure. Instance of tachycardia over base line at 2200 at same time she was getting out of bed to see baby, likely sinus tach due to orthostatics vs pain vs anemia. No intervention at this time, will continue to monitor and keep pain controlled. Plan as below: CHF: - Increased lopressor to 25 Q6 hours - Continue to monitor for symptoms of CHF exacerbation during diuresis phase, today is peak phase of diuresis - Not starting ACEI at this time in light of her decision to breastfeed. s/p C/S: -OBGYN following, we will follow their recs. - Hydromorphone PO plus IV for breakthrough pain. FEN/PPX: -DVT: ambulating -FEN/Diet: Regular diet replace K/Mg for goal 06/13 -Access: PICC -Code Status: Full code -DISPO: pending OB recs, likely Jayde Humphries PGY-1 Internal Medicine S1 TEAM PAGER #[phone] 10/11/2013 Staff Rounding Addendum: I interviewed and examined the patient during comprehensive bedside rounds with Dr. Humphries. I agree with the summary of interval events, active hospital- focused problem list and plan of care. I personally reviewed the medications, laboratory results, treatment decisions and updated the patient on all of these elements. The assessment and plan were developed in discussion between Dr. Humphries and myself. Ms. Porras continues to do well without significant heart failure symptoms following her recent . She is increasing her mobility and while she describes some pain, I do not think it unexpected. Her heart rate is elevated associated with exertion and we will increase her beta-sunitha somewhat today. We will also plan to add an ZEUS-I as we hear from OB that a medication in this class could be used by a mother. Her weight has not reduced as much as expected at this phase and we will plan to reweigh her and if still close to her pre-delivery weight will add 20mg of po furosemide. Alexandr Castaneda MD Staff Overhead [employer] Pager #[phone] * Vicky Caballero RN - 10/10/2013 4:16 PM EDT Care Management Assessment (Clinical Field Care Manager) Patient Information has been reviewed in multi-disciplinary rounds with OB and pediatric providers,in medical record, and through patient interview. Introduced self and CRC role to patient and services accepted. Living Situation: Mary is a 18 y.o. Single delivered by Primary C/Section at 37 weeks gestation following IOL for worsening cardiomyopathy and subsequent non-reassuring FHRT. Her was complicated by: Teen , cardiomyopathy with worsening s/s and EF. With Whom: Lives at home with her mom and step father and 2 siblings. RASHEED Minor does not live with them currently. He appears to be same aged, this is his first child. Where: [place], [place] Approx time in community: Year(s) Social Resources: Intact (non-) couple with first child. Petr has been staying in the room with Mary through the [facility] and ICCU stays. Various family members (mom, step dad, grandmother, etc) have been coming from [facility] to visit. Mary states that she has everything she needs for the baby. Extended family in [facility] for support: Yes. Lives with family. Cognitive Resources: Intact Childbirth Education: Yes/No Educational Level: High School (in process of senior year-hopes to complete by February) Functional Status: Ambulatory, Independent, Without limitations. C/S recovery with limitations on lifting/driving x 2 weeks. Complications requiring follow-up: Financial Resources: Limited. OK while living at home. Health Insurance Coverage: [place] Medicaid Woods Manager Chosen: [facility] (pt to find name of provider) Declines list of [facility] providers. Baby's Name: Julian Minor Pt given information on adding baby to [facility]. Anticipated Continuing Care Needs: Physical: Recovery from . Initiation of /pumping for ICN Emotional: Adjustment to period Psychological: No known hx of anxiety/depression. Referred to social insurance administrator for assessment and support while inpatient. Educational: Parenting first Continuing Care Plan Development: At home resources/Discharge supports suggested. Printed materials and suggested community resourcesprovided to patient: Visiting Nurse visits: Offered services of VNA post discharge. Patient accepted on behalf of baby. Didn't really desire VNA for herself. [facility] (n/a) [place] Resource Sheets given. [place] [facility] [place]): [place] [facility] Info provided Provided information on [facility] as local lodging upon discharge. Pt uncertain, but likely to stay to be near her infant. DME ordered : Breast Pump Breast Pump: Rx to [facility] for Lactina breast pump. remains in ICN with [facility]DS at this time. Other: Have car seat, own transportation, and some family support. Referral placed with [facility] upon baby's discharge. [facility] information given. Breast Pump Rx to [facility]. CRC: Priscilla FIORE/ Theresa Morelos. Beeper [phone] * Lelia Del Valle RN - 10/10/2013 2:43 PM EDT Care Management(OCM)/Clinical Field Care Manager(CRC) CRC Service: Cardiology, Cardiothoracic and Thoracic Surgery TORSTEN Larson RN Pager # [phone] Record reviewed and patient discussed with multidisciplinary team. Per OB, anticipate d/c POD #4, . Cardiology team in agreement. Will update OB CRC Priscilla Archer CRC remains available as needed for coordination of care and discharge planning. * Astrid Lopez MSW - 10/10/2013 1:34 PM EDT S/O: Briefly met with Pt Mary and partner Petr in room on ICCU. Mary gave to baby ju Jordan on 10/08 at 37 weeks gestation. The baby is currently in the ICN for respiratory distress and is stable. Mary and Petr live in [place], [place] with her family. Mary is currently not working and it is unclear if Petr is employed. Mary was in the process of going up to the ICN tosee her baby so a full assessment was not completed at this time. Mary was open to another visitfrom this worker when she is not in transit. A: Mary is a 18 year old teenager who is recovering from the of her first child on 10/08 via . Mary appeared tired today and while pleasant was not verbose. Petr seemed a little guarded at first. As they were headed out the door this worker was not able to talk with them for long. Introduced self and role which they both were welcoming of. They both seemed eager to go to the ICN to see their baby so a more thorough assessment will be conducted at a later time. P: Continue to provide support while the baby remains in the ICN. Astrid Toscano. 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 Today is POD#2. Interval Events: s/p epidural with dilaudid DIRECTOR INDEPENDENT, started on oxycodone po Subjective: Complains of incision pain. Pain is well controlled, pain is 3/10 in lower abdomen. Sheis tolerating diet well, urinating via christianson and has ambulated. +Flatus but no BM. For contraception she would like OCPs since she had a previous paraguard failure (missed expulsion) and she did not tolerate depo well. After ambulating she notes right lower extremity pain along anterior leg, which is a cramping discomfort and not a sharp electrical shooting pain. Not worsened with toe dorsiflexion. Review of Systems ROS: No F/C/SOB/CP/N/V/LE swelling Lochia: small Last Set of Vitals: Patient Vitals for the past 24 hrs: BP Temp Temp src Pulse Resp SpO2 10/10/13 0420 115/70 mmHg 37.2 ??C (99 ??F) Oral 112 16 95 % 10/09/13 2329 121/71 mmHg 37 ??C (98.6 ??F) Oral 119 16 92 % 10/09/13 2000 119/67 mmHg 37 ??C (98.6 ??F) Oral 109 18 97 % 10/09/13 1649 110/64 mmHg 36.5 ??C (97.7 ??F) Oral 116 - 98 % 10/09/13 1350 - - - - - 97 % 10/09/13 1222 120/74 mmHg 37.1 ??C (98.8 ??F) Oral 115 18 - 10/09/13 0717 130/81 mmHg 36.5 ??C (97.7 ??F) Oral 117 18 95 % Intake/Output Summary (Last 24 hours) at 10/10/13 0631 Last data filed at 10/10/13 0400 Gross per 24 hour Intake 3170.7 ml Output 5775 ml Net -2604.3 ml Weight - Scale: 108.4 kg (238 lb 15.7 oz) Physical Exam Gen: asleep in bed, NAD CV: Tachycardic, S1/S2 and soft S3 Resp: CTAB, no w/r/r Ext: SCDs in place, LE symmetrical with no erythema or swelling, 1+ trace pitting edema bilaterally. Tender to palpation along anterior thigh and lower extremity. Joaquina's negative Uterine Fundus: firm Dressing: clean, dry and intact, taken down today Incision: T incision intact with glynn, no discharge, bleeding or surrounding erythema Lochia: appropriate Lines: PICC Significant Labs: Lab Results Component Value Date ABORH B Pos 10/05/2013 WBC 12.9 10/09/2013 HCT 31.1* 10/09/2013 HGB 9.8* 10/09/2013 RUBLIGG Immune* 06/22/2013 Immunization status: Up to date for rubella per admission labs Assessment & Plan 18 y.o. woman who presented as a female s/p primary C/S for NRFHT complicated by difficult extraction of the head. C/o right anterior thigh and leg pain which appears to be musculoskeletalwith no e/o DVT or radiculopathy. POD#2. was complicated by cardiomyopathy without heart failure, teenage Patient is doing well in the postoperative period. Stable hemodynamically and tolerating the diuresis phase well. Christianson in place with adequate UOP, from surgical standpoint can be d/c once ambulatory Infant nutrition: breast Cardiac: Lopressor 12.5 BID, ACEI held for , cards primary Contraception: OCPs Right leg pain: ambulate today, if still persistent will consider dopplers or PT for evaluation Pain: oxycodone, tylenol, dilaudid prn care: Will determine with MFM team appropriate follow-up PPX: Lovenox 40mg subq daily Disposition: continue care Assessment Management of Additional Medical Issues ?? Anemia: Iron po daily upon discharge ?? Immunization: f/u varicella titers, f/u TDaP last dose This patient was seen and discussed on rounds with Dr. Sprague Attending and Dr. Oliver PGY-3. CONCHITA ECHOLS MD PGY-1 10/10/2013 Attending note I saw patient on rounds and agree with Dr. Echols's note above. The patient reports feeling well. Her bleeding is diminishing. She has adequate analgesia. She has been to the nursery. Has ambulated to the bathroom and taken a shower. Temp: [36.3 ??C (97.3 ??F)-37.2 ??C (99 ??F)] Heart Rate: [102-119] Resp: [16-20] BP: (110-121)/(64-77) SpO2: [92 %-98 %] Net output 2.3 liters Abdomen: soft, appropriately tender, fundus below umbilicus Wound: clean, dry, intact Ext: nontender, SCD on, no edema Impression: POD 2 after primary low transverse at 36 weeks for nonreassuring testingdoing well in the setting of an induction of labor for maternal cardiomyopathy. The delivery was difficult but the baby is doing very well Plan: Continue routine postoperative care. lovenox Ambulate Pantera christianson Consider discharge on POD 4 Marita Sprague MD * Alexandr Castaneda MD - 10/10/2013 5:38 AM EDT Inpatient Cardiology Progress Note Patient: On License Of [facility] Day 6 days Active Problems: 24 hour Events/Subjective: - No overnight events - No CP, SOB, N/V/D overnight. C/O pain in leg. Physical Examination: Vitals: Last value Range last 24 hrs Temperature Temp: 37.2 ??C (99 ??F) Temp: [36.5 ??C (97.7 ??F)-37.2 ??C (99 ??F)] Heart Rate Heart Rate: 112 Heart Rate: [109-119] Blood Pressure BP: 115/70 mmHg BP: (110-130)/(64-81) Respiratory Rate Resp: 16 Resp: [16-18] SpO2 SpO2: 95 % SpO2: [92 %-98 %] TELEMETRY: sinus tach 100-140 Intake/Output Summary (Last 24 hours) at 10/10/13 0538 Last data filed at 10/10/13 0400 Gross per 24 hour Intake 3170.7 ml Output 5775 ml Net -2604.3 ml cumulative I/O's since admission: Patient Vitals for the past 168 hrs: Weight 10/05/13 0504 108.4 kg (238 lb 15.7 oz) 10/04/13 1625 108.6 kg (239 lb 6.7 oz) Gen: NAD breathing comfortably on room air. CV: Regular rate, rhythm, no murmurs/rubs/gallops; equal distal pulses Pulm: CTA-B, no wheezes rales or rhonchi Abd: Incision line appropriately tender to palpation, c/d/i. Ext: No C/C, mild LE edema, tender over entire R leg especially knee, PICC line in place. Laboratory: Recent Labs Basename 10/09/13 0335 10/08/13 0700 WBC 12.9 18.0* HGB 9.8* 10.3* PLATELET 224 264 Recent Labs Basename 10/09/13 0335 10/08/13 0700 NA 133* 139 K 4.0 4.1 CL 100 106 CO2 25 21* BUN 9* 9* CREATININE 0.63 0.57 Recent Labs Basename 10/09/13 0335 10/08/13 0700 CALCIUM 8.8 8.6 MAGNESIUM -- -- PHOS -- -- Diagnostics: None MEDICATIONS: Continuous Infusions: ??? fentaNYL 2 mcg/mL with BUpivacaine 0.125% (1.25 mg/mL) (1/8%) in NS(PF) 7 mL/hr (10/09/13 0650) ??? [DISCONTINUED] HYDROmorphone Stopped (10/09/13 1100) ??? [DISCONTINUED] DIRECTOR INDEPENDENT smith ??? [DISCONTINUED] lactated ringers Stopped (10/09/13 1100) Scheduled Meds: ??? metoprolol tartrate 12.5 mg Oral Q6H MIKA ??? [] varicella virus (live) 0.5 mL Subcutaneous Once ??? pediatric multivitamin 1 tablet Oral Daily ??? sodium chloride 0.9 % 5 mL Intravenous BID ??? [DISCONTINUED] metoprolol tartrate 12.5 mg Oral BID PRN Meds:.oxyCODONE, HYDROmorphone, camphor-menthol, simethicone, [DISCONTINUED] diphenhydrAMINE, [DISCONTINUED] prochlorperazine, [DISCONTINUED] ondansetron, [DISCONTINUED] nalOXone, [DISCONTINUED] DIRECTOR INDEPENDENT smith, acetaminophen Assessment/Plan: 18yo F with PMHx viral cardiomyopathy at 4 months of age, presenting at 36 weeks gestation forinduction of high risk with decline in LVEF to 35- 40%, now s/p POD 2, no clinical evidence of heart failure. Tachycardic over base line, possibly due to anemia v. Pain v. Fluid shift. No intervention at this time, will continue to monitor and keep pain controlled. Plan as below: CHF: - Continue Lopressor 12.5 BID - Continue to monitor for symptoms of CHF exacerbation during diuresis phase, today is peak phase of diuresis - Not starting ACEI at this time in light of her decision to breastfeed. : -OBGYN following, we will follow their recs. - Hydromorphone PO plus IV for breakthrough pain. FEN/PPX: -DVT: ambulating -FEN/Diet: Regular diet replace K/Mg for goal 06/13 -Access: PICC -Code Status: Full code -DISPO: pending OB recs, likely Jayde Humphries PGY-1 Internal Medicine S1 TEAM PAGER #[phone] 10/10/2013 Staff Rounding Addendum: I interviewed and examined the patient during comprehensive bedside rounds with Dr. Humphries. I concur with the summary of interval events, active hospital- focused problem list and plan of care. I personally reviewed the medications, laboratory results, treatment decisions and updated the patient onall of these elements. The assessment and plan were developed in [facility] Alexandr Castaneda MD Staff Overhead [employer] Pager #[phone] * Marita Graf, RD - 10/09/2013 3:31 PM EDT Nutrition Services - Initial Note Mary Porras : 1995 AGE: 18 y.o. Principal Problem: *High risk teen With known cardiomyopathy Active Problems: Cardiomyopathy 1. Nonischemic dilated cardiomyopathy Presented age [...] TR. Est PAS 15. B-sunitha initiated 06/30/13 Reason for Nutrition Intervention: Diagnosis Diet Order: Regular Appetite: good Food allergies: none Chewing/Swallowing difficulty: none Estimated Body mass index is 35.80 kg/(m^2) as calculated from the following: Height as of this encounter: 5' 8.504(1.74 m). Weight as of this encounter: 238 lb 15.7 oz(108.4 kg). Vitamins/Minerals: Pedi MVI Assessment: Patient denies need for nutrition education at this time and reports she is eating well. Only question was if she can have caffeine while /pumping, which from a nutrition perspective is fine, but I asked her to follow-up with her cardiology team for further recommendations. Nutrition Plan: Diet as ordered. Recommend Daily Multi Vitamins with minerals. Monitor weight. Encourage good po intake. Support and encouragement provided. Nutrition services to follow weekly thru hospital course unless consulted in the interim. TAY NAJERA * Merritt Ramachandran MD - 10/09/2013 3:12 PM EDT Called by RN stating that pt wished to have her epidural d/c'd. On exam pt was still demonstrating signs of motor block on the left but not the right lower extremity. Epidural dressing was c/d/i. I d/c'd the epidural without issue and the tip of the catheter was clearly intact. Pt knows to ask for prn pain meds as her pain may begin to increase as epidural wears off (currently a 2/10). Explained to RN that the majority of the motor and sensory block should resolve by this evening/night. JOSE DE JESUS IVERSON MD I was the attending physician supervising the resident in the above care and I, participated and was present with the resident for the entire procedure. MERRITT RAMACHANDRAN MD * Merritt Ramachandran MD - 10/09/2013 10:05 AM EDT Anesthesia OB Service - Epidural Management Physician: MD Umer Time of Service: 10:05 AM HPI: 18 yo F w/ h/o dilated cardiomyopathy w/ an EF of 35%, POD#1 from for non-reassuring FHTs; epidural was placed on 10/07 and used for surgical block and has been running at lower rate since OR. Epidural day: 2 days s/p placement Subjective: Pt states pain is well controlled. Reports some motor block in right leg but return of function of left leg. VITAL SIGNS: BP 130/81 Pulse 117 Temp 36.5 ??C (97.7 ??F) (Oral) Resp 18 Ht 174 cm (5' 8.5) Wt 108.4 kg (238 lb 15.7 oz) BMI 35.80 kg/m2 SpO2 95% I:O I/O last 3 completed shifts: In: 5343.2 [P.O.:2780; I.V.:2563.2] Out: 4195 [Urine:3095; Other:1100] Physical: Patient is awake and alert. Deep breathing and coughing well. Moves legs without difficulty. Epidural insertion site clean and without signs of infection. epidural level ~T10-L4 Labs: Recent Labs Basename 10/09/1333410/08/13 0710/07/13 0420 WBC 12.9 18.0* 12.8 HGB 9.8* 10.3* 10.6* HCT 31.1* 33.1* 33.7* PLATELET 224 264 276 PT -- -- -- INR -- -- -- PTT -- -- -- Recent Labs Basename 10/09/1333410/08/13 0710/07/13 0420 NA 133* 139 138 K 4.0 4.1 4.1 CL 100 106 103 CO2 25 21* 19* BUN 9* 9* 8* CREATININE 0.63 0.57 0.59 GLUCOSE 100 79 99 CALCIUM 8.8 8.6 9.5 MAGNESIUM -- -- -- PHOS -- -- -- Pertinent Medications: Bupivacaine 1/8 % (1.25 mg/ml) plus Fentanyl 2 micrograms / mixx infusing at 7 mls/hour with no PCEA function Hydromorphone DIRECTOR INDEPENDENT Oral oxycodone Assessment: 18 yo F high-risk teen d/t dilated cardiomyopathy w/ EF of 35% POD#1 s/p , currently hemodynamically stable with adequate pain control. Plan: Coordinated with OB team: continue epidural but will decrease dose to 5cc/hr in hopes of gaining increased motor function in bilateral lower extremities. Continue to transition to PO medications for pain control. Will continue to monitor her hemodynamics closely given the post- fluid shifts that will continue to occur for the next 24-36 hrs. Please call with any questions or concerns. JOSE DE JESUS IVERSON MD 10/09/2013 Pager # [phone] I was the attending physician supervising the resident in the above care and I, participated and was present with the resident for the entire procedure. 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 Today is POD#1. Subjective: Complains of incision pain. Pain is moderatelycontrolled, worst pain is 7/10 mostly on left side of incision, otherwise pain is around 4/10. Has an epidural with dilaudid DIRECTOR INDEPENDENT. She is tolerating diet moderately, urinating via christianson and not ambulating. +Flatus but no BM. Review of Systems ROS: No F/C/SOB/CP/N/V/LE swelling Lochia: small Last Set of Vitals: Patient Vitals for the past 24 hrs: BP Temp Temp src Pulse Resp SpO2 10/09/13 0717 130/81 mmHg 36.5 ??C (97.7 ??F) Oral 117 18 95 % 10/09/13 0315 134/69 mmHg 37.5 ??C (99.5 ??F) Oral 115 18 96 % 10/09/13 0023 110/61 mmHg 37 ??C (98.6 ??F) Oral 103 18 99 % 10/08/13 1938 102/59 mmHg 36.8 ??C (98.2 ??F) Oral 107 20 98 % 10/08/13 1659 101/57 mmHg 37.2 ??C (99 ??F) Oral 99 18 95 % 10/08/13 1500 104/84 mmHg - - 97 - - 10/08/13 1146 110/57 mmHg 37 ??C (98.6 ??F) - 96 18 95 % 10/08/13 1100 107/59 mmHg - - 103 19 92 % 10/08/13 1000 107/56 mmHg 36.8 ??C (98.2 ??F) Oral 105 17 95 % Intake/Output Summary (Last 24 hours) at 10/09/13 0916 Last data filed at 10/09/13 0730 Gross per 24 hour Intake 2882.55 ml Output 3315 ml Net -432.45 ml Weight - Scale: 108.4 kg (238 lb 15.7 oz) Physical Exam Gen: asleep in bed, NAD CV: Tachycardic, S1/S2 and soft S3 Resp: CTAB, no w/r/r Ext: SCDs in place, no LE tenderness/swelling Uterine Fundus: firm Dressing: clean, dry and intact Incision: dressing in place, will remove on POD#2 to view incision Lochia: appropriate Significant Labs: Lab Results Component Value Date ABORH B Pos 10/05/2013 WBC 12.9 10/09/2013 HCT 31.1* 10/09/2013 HGB 9.8* 10/09/2013 RUBLIGG Immune* 06/22/2013 Immunization status: Up to date for rubella per admission labs Assessment & Plan 18 y.o. woman who presented as a female s/p primary C/S for NRFHT complicated by difficult extraction of the head. was complicated by cardiomyopathy without heart failure, teenage ?? Patient is doing well with some pain issues in the postoperative period. Stable hemodynamically and cardiovascularlly. Christianson in place with adequate UOP, continue once ambulatory and can void spontaneously Infant nutrition: breast Contraception: Will discuss with patient Pain: dilaudid DIRECTOR INDEPENDENT likely d/c today and transition to po pain medication, epidural managed by anesthesia care: Will determine with MFM team appropriate follow-up Disposition: continue care Assessment Management of Additional Medical Issues ?? Anemia: Iron po daily upon discharge ?? Immunization: f/u varicella titers, f/u TDaP last dose This patient was seen and discussed on rounds with Dr. Sprague Attending and Dr. Oliver PGY-3. CONCHITA ECHOLS MD PGY-1 10/09/2013 Attending note I saw patient on rounds and agree with Dr. Echols's note above. The patient reports feeling reasonably well. Her bleeding is diminishing. She has adequate analgesia. She denies chest pain and dyspnea. Temp: [36.5 ??C (97.7 ??F)-37.5 ??C (99.5 ??F)] Heart Rate: [103-117] Resp: [18-20] BP: (102-134)/(59-81) SpO2: [95 %-99 %] Abdomen: soft, appropriately tender, fundus below umbilicus Wound/dressing: clean, dry, intact Ext: nontender, mod edema I/O last 3 completed shifts: In: 5285.1 [P.O.:4550; I.V.:735.1] Out: 4815 [Urine:3715; Other:1100] Impression: POD 2 after primary at 36 weeks for nonreassuring testing doing well from a surgical standpoint. Cardiomyopathy with modest depression in ventricular function. No evidence for heart failure Seems to be tolerating the mobilization of fluid. Plan: Continue routine postoperative care. Careful I &O through POD 3. Switch to oral narcotics and wean epidural Lovenox until ambulatory Marita Sprague MD * Zoie Valentin RN - 10/09/2013 6:51 AM EDT Pt pumping close to 3 hour schedule. Positive reinforcement provided. ZOIE P JAMES, RN * Alexandr Castaneda MD - 10/09/2013 5:46 AM EDT Inpatient Cardiology Progress Note Patient: On License Of [facility] Day 5 days Active Problems: 24 hour Events/Subjective: - NF called for tachycardia, low 100s. This is her baseline. - No CP, SOB, N/V/D overnight. Pain in ribs. Physical Examination: Vitals: Last value Range last 24 hrs Temperature Temp: 36.5 ??C (97.7 ??F) Temp: [36.5 ??C (97.7 ??F)-37.5 ??C (99.5 ??F)] Heart Rate Heart Rate: 117 Heart Rate: [96-117] Blood Pressure BP: 130/81 mmHg BP: (101-134)/(57-84) Respiratory Rate Resp: 18 Resp: [18-20] SpO2 SpO2: 95 % SpO2: [92 %-99 %] TELEMETRY: sinus tach 100-103 Intake/Output Summary (Last 24 hours) at 10/09/13 1023 Last data filed at 10/09/13 0730 Gross per 24 hour Intake 2602.55 ml Output 3225 ml Net -622.45 ml cumulative I/O's since admission: Patient Vitals for the past 168 hrs: Weight 10/05/13 0504 108.4 kg (238 lb 15.7 oz) 10/04/13 1625 108.6 kg (239 lb 6.7 oz) Gen: NAD breathing comfortably on room air. CV: Regular rate, rhythm, no murmurs/rubs/gallops; equal distal pulses Pulm: CTA-B, no wheezes rales or rhonchi Abd: Tenderness on ribs. No tenderness to incision line, c/d/i. Ext: No C/C, mild LE edema, PICC line in place. Laboratory: Recent Labs Basename 10/09/13 0335 10/08/13 0700 10/07/13 0420 WBC 12.9 18.0* 12.8 HGB 9.8* 10.3* 10.6* PLATELET 224 264 276 Recent Labs Basename 10/09/13 0335 10/08/13 0700 10/07/13 0420 NA 133* 139 138 K 4.0 4.1 4.1 CL 100 106 103 CO2 25 21* 19* BUN 9* 9* 8* CREATININE 0.63 0.57 0.59 Recent Labs Basename 10/09/13 0335 10/08/13 0700 10/07/13 0420 CALCIUM 8.8 8.6 9.5 MAGNESIUM -- -- -- PHOS -- -- -- Diagnostics: None MEDICATIONS: Continuous Infusions: ??? fentaNYL 2 mcg/mL with BUpivacaine 0.125% (1.25 mg/mL) (1/8%) in NS(PF) 7 mL/hr (10/09/13 0650) ??? [DISCONTINUED] HYDROmorphone ??? [DISCONTINUED] DIRECTOR INDEPENDENT smith ??? lactated ringers 20 mL/hr (10/09/13 0650) Scheduled Meds: ??? [DISCONTINUED] metoprolol tartrate 12.5 mg Oral BID ??? pediatric multivitamin 1 tablet Oral Daily ??? sodium chloride 0.9 % 5 mL Intravenous BID ??? metoprolol tartrate 12.5 mg Oral BID PRN Meds:.oxyCODONE, simethicone, [DISCONTINUED] diphenhydrAMINE, [DISCONTINUED] prochlorperazine, [DISCONTINUED] ondansetron, [DISCONTINUED] nalOXone, [DISCONTINUED] DIRECTOR INDEPENDENT smith, [DISCONTINUED] HYDROmorphone, acetaminophen Assessment/Plan: 18yo F with PMHx viral cardiomyopathy at 4 months of age, presenting at 36 weeks gestation forinduction of high risk with decline in LVEF to 35- 40%, now s/p POD 2, no clinical evidence of heart failure and hemodynamically stable. Plan as below: CHF: - Continue Lopressor 12.5 BID - Continue to monitor for symptoms of CHF exacerbation during diuresis phase - Not starting ACEI at this time in light of her decision to breastfeed. : -OBGYN following, we will follow their recs. - Pain control changed from DIRECTOR INDEPENDENT pump to hydromorphone PO plus IV dilaudid for breakthrough pain. FEN/PPX: -DVT: ambulating -FEN/Diet: Regular diet replace K/Mg for goal 06/13 -Access: PICC -Code Status: Full code -DISPO: pending OB recs Jayde Humphries PGY-1 Internal Medicine S1 TEAM PAGER #[phone] 10/09/2013 Staff Rounding Addendum: I interviewed and examined the patient during comprehensive bedside rounds with Dr. Humphreis. I concur with the summary of interval events, active hospital- focused problem list and plan of care. I personally reviewed the medications, laboratory results, treatment decisions and updated the patient onall of these elements. The assessment and plan were developed in discussion between Dr. Humphries andmindy. Ms. Porras continues to be clinically stable and we would like to start to transition her back to a medicine regimen for her cardiomyopathy. We will start to slowly uptitrate her beta-blockade. As she is considering we will hold off on the addition of an ZEUS-I or ARB for now. Alexandr Castaneda MD Staff Overhead [employer] Pager #[phone] * Alexandr Castaneda MD - 10/08/2013 6:05 AM EDT Inpatient Cardiology Progress Note Hospital Day 4 days ID: 18yo F with PMH of viral cardiomyopathy, presenting at 36 weeks gestation for induction oflabor, now s/p , under cardiology supervision due to worsening cardiomyopathy (EF 35%) without clinical e/o heart failure. 24 Hour Events/Subjective: - Delivered by this AM - Blood loss 1200 cc - Got 2 L fluid - Denies SOB/CP/orthopnea - No change in leg swelling Inpatient Medications: Metoprolol 12.5 BID (home med) Pediatric multivitamin Fentanyl DIRECTOR INDEPENDENT Pitocin gtt Tylenol PRN Cervidil PRN Terbutaline PRN Vitals: Last value Range last 24 hrs Temperature Temp: 37 ??C (98.6 ??F) Temp: [36.7 ??C (98.1 ??F)-37 ??C (98.6 ??F)] Heart Rate Heart Rate: 98 Heart Rate: [74-112] Blood Pressure BP: 108/74 mmHg BP: (86-133)/(42-98) Respiratory Rate Resp: 18 Resp: [13-27] SpO2 SpO2: 97 % SpO2: [93 %-100 %] Gen: NAD breathing comfortably on room air. CV: Regular rate, rhythm, no murmurs/rubs/gallops; equal distal pulses Pulm: CTA-B Abd: No abd tenderness Ext: No C/C/E, PICC line in place. Laboratory: Recent Labs Basename 10/08/13 0700 10/07/13 0420 10/06/13 0440 WBC 18.0* 12.8 11.8 HGB 10.3* 10.6* 10.5* PLATELET 264 276 269 Recent Labs Basename 10/08/13 0700 10/07/13 0420 10/06/13 0440 NA 139 138 137 K 4.1 4.1 4.3 CL 106 103 102 CO2 21* 19* 21* BUN 9* 8* 9* CREATININE 0.57 0.59 0.56 GLUCOSE 79 99 93 Recent Labs Basename 10/08/13 0700 10/07/13 0420 10/06/13 0440 CALCIUM 8.6 9.5 9.2 MAGNESIUM -- -- -- PHOS -- -- -- Recent Labs Basename 09/19/13 1451 06/30/13 1156 BILITOT 0.1 0.1 BILIDIR <0.1 <0.1 ALBUMIN 3.2 3.6 ALKPHOS 106 70 ALT 13 6 AST 19 11 Recent Labs Basename 10/07/13 0420 09/19/13 1451 06/30/13 1156 TROPONINT -- -- -- CK -- -- -- PROBNP 438* 104 342* Microbiology: U/A + for many bacteria, urine culture (P) Diagnostic Studies: None Assessment/Plan: 18yo F with viral cardiomyopathy since 4 months of age, presenting at 36 weeks gestation for induction of high risk with decline in LVEF to 35- 40%, now s/p , no clinical evidence of heart failure and hemodynamically stable. Plan as below: CHF: - Transfer to floor - Continue Lopressor 12.5 BID - Continue to monitor for symptoms of CHF exacerbation during diuresis phase - Consider ZEUS-I in setting of plans. - Consider transfer to floor. : -OBGYN following, we will follow their recs. FEN/PPX: -DVT: Held in light of recent -FEN/Diet: Regular diet replace K/Mg for goal 06/13 -Access: PICC -Code Status: Full code -DISPO: pending labor JAYDE HUMPHRIES MD Cardiology S1/Team Pager [phone] 10/08/2013 Staff Rounding Addendum: I interviewed and examined the patient during comprehensive bedside rounds with Dr. Humphries. I concur with the summary of interval events, active hospital- focused problem list and plan of care. I personally reviewed the medications, laboratory results, treatment decisions and updated the patient onall of these elements. The assessment and plan were developed in discussion between Dr. Humphries andmark. Ms. Porras is clinically stable after her and we are following her volume statusclosely. She has not yet needed aggressive volume management though this could change as she experiences post-surgical volume shifts. Alexandr Castaneda MD Staff Overhead [employer] Pager #[phone] * Marita Sprague MD - 10/07/2013 9:15 PM EDT Labor Progress Note ID: Mary Porras is a 18 y.o. female at 36w6d gestation (by 14 week U/S) admitted for induction of labor for worsening dilated cardiomyopathy with LVEF 35%. She is now HD#4. Subjective: Called by nurse to evaluate FHRT. Patient feels pruritis after epidural placement. Otherwise comfortable. Objective: Temp: 36.7 ??C (98.1 ??F) 24 hr Temp: [36.5 ??C (97.7 ??F)-36.9 ??C (98.4 ??F)] Heart Rate: 83 24 hr Heart Rate: [83-112] BP: 110/71 mmHg 24 hr BP: (96-144)/(53-98) Cervix Exam: Dilation: 2.5 (10/07/136) Effacement: 90 Station: -1 Position: Posterior Consistency: Soft Taylor Score: 8 OB Examiner: Tamara Heart Rate Interpretation: Mode: continuous external (10/07/13 2030) HR (beats/min): 140 Variability: moderate (amplitude range 6 to 25 bpm) Accelerations: absent Decelerations: variable Contraction Frequency (min): occasional Nonstress Test Interpretation: Reactive, >32 weeks: two 15 bpm accelerations lasting 15 seconds Overall Impression: Reassuring for gestational age Comments: irregular contractions GBS Lab Results Component Value Date GBSSCREEN Neg 10/04/2013 Assessment & Plan Mary Porras is a 18 y.o. at 36w6d admitted for IOL in setting of cardiomyopathy with EF of 35%. S/p misoprostol and cervidil for cervical ripening. Pitocin stopped after last exam due to category 2 tracing which has been persistent. Continues to be difficult to picker tender contractions on toco. Pt resuscitated with O2 and LLP. Per anesthesia, will bolus 250cc at this time to see if tracingimproves. ?? Labor Plans: hold pitocin ?? GBS Management: discontinue pcn as pt is GBS neg ?? Pain: epidural in place and functioning well ?? Passive descent with assisted second stage (vacuum vs. Forceps) per cardiology recommendations. ?? Patient has PICC in place Additional Issues Management of cardiomyopathy as per Cardiology F/u GC/CT cx Consent for CS completed with patient and patient's mother (per telephone consent) Discussed with Dr. Sprague. GRACE JUAREZ MD PGY4 10/07/2013 Attending note I have personally reviewed the patient's progress in labor and agree with Dr. Juarez' assessment andplan as documented. Since that note we have given the patient an additional 500 cc bolus. She had aperiod of repetitive decelerations which have resolved. She is very comfortable with her epidural. Filed Vitals: 10/08/13 0030 BP: 108/55 Pulse: 89 Temp: 36.9 ??C (98.4 ??F) Resp: 24 EFM: 140 with minimal variability and occasional accelerations Will start oxytocin and continue as long as the heart rate pattern remains reassuring. Marita Sprague MD * Torsten Schneider RN - 10/07/2013 8:51 PM EDT 1914- report received from WILLOW Varma and care of pt assumed by this RN. Report received at bedside.Pt sitting on side of bed for epidural placement. 1929- epidural placed and started. 1933- pt laid down on left side in bed. FHR deceleration from baseline 145 bpm, to zaki of 125. 1934- epidural stopped while waiting for CVP monitor to be placed. FHR return to baseline without other interventions. Length of deceleration undetermined due to monitor tracing be broken up from positioning pt. 2000- pt on to back for christianson catheter placement. FHR off monitor due to positioning. 2007- FHR tracing again on monitor at 145 bpm. 2048- FHR showing repetitive decelerations from baseline of 145 to zaki of 120. Moderate variability remains. Pt turned to left tilt position. 2099- FHr deceleration from baseline 145 to 125 lasting 2 minutes 30 seconds before dropping to zaki of 90 and returning to baseline. Total deceleration 3 minutes 30 seconds. Pt turned to right tiltposition. 2102- BP charge nurse WILLOW Red notified. MD Erasmo will be down to assess. 2104- O2 administered via simple face mask @ 8 Liters. 2105- MD Erasmo,MD Tamara and MD Mariann all at bedside. 2109- SVE by MD Tamara. No cervical change made. Pt turned all the way to right side. 2110- 250 ML bolus of LR given. 2139- 500 ML bolus of LR given. 215- pt turned to left side by order of MD Tamara. 2245- pt resting comfortably with eyes closed. SO, Petr at bedside. 0045- pt comfortable and resting. SCD placed bilaterally on lower legs. 0100- Pitocin restarted per MD Erasmo. 0130- pt slightly uncomfortable. Turned to right side. 0154- [place] not tracing contractions. Adjusted and now is showing contractions. 5- FHR deceleration from baseline to zaki of 80. Pitocin stopped. BP charge nurse, WILLOW Red notified. Pt turned to left tilt position. 215- WILLOW Red, MD Erasmo present at bedside. 0223- SVE by MD Erasmo. 0230- decision to move pt to OR 22 to attempt AROM. 0245- pt transferred to OR 22. 0304- pt positioned on OR table. Anesthesia staff, ICN staff and OR staff all present. 0314- Time out performed by all staff prior to AROM. 0320- SVE and AROM by MD Tamara. Thin meconium noted. 0336- FHR tracing reviewed by MD Erasmo and MD Tamara. 0340- decision by MD Erasmo to stop induction and perform a section for well being. 0353- gradual FHR deceleration from baseline to zaki of 80. Monitors removed for surgery. 0421- delivery of viable baby boy. Baby limp and pale, transferred to warmer with NICU present. * Marita Sprague MD - 10/07/2013 6:55 PM EDT Labor Progress Note ID: Mary Porras is a 18 y.o. female at 36w6d gestation (by 14 week U/S) admitted for induction of labor for worsening dilated cardiomyopathy with LVEF 35%. She is now HD#4. Subjective: Called by nurse to evaluate FHRT. Patient feels more pain with contractions. Objective: Temp: 36.7 ??C (98.1 ??F) 24 hr Temp: [36.5 ??C (97.7 ??F)-36.9 ??C (98.4 ??F)] Heart Rate: 86 24 hr Heart Rate: [86-112] BP: 111/63 mmHg 24 hr BP: (96-144)/(53-98) Cervix Exam: Dilation: 2.5 (10/07/13 1120) Effacement: 70 Station: -2 Position: Mid-Position Consistency: Soft Taylor Score: 7 OB Examiner: Dr Juarez Heart Rate Interpretation: Mode: continuous external (10/07/13 1750) HR (beats/min): 145 Variability: minimal (detectable: amplitude less than or equal to 5 bpm) Accelerations: absent Decelerations: none Contraction Frequency (min): none Nonstress Test Interpretation: Reactive, >32 weeks: two 15 bpm accelerations lasting 15 seconds Overall Impression: Reassuring for gestational age Comments: irregular contractions GBS Lab Results Component Value Date GBSSCREEN Neg 10/04/2013 Assessment & Plan Mary Porras is a 18 y.o. at 36w6d admitted for IOL in setting of cardiomyopathy with EF of 35%. S/p misoprostol and cervidil for cervical ripening, now on pitocin with mild change in cervical exam. Now with category 2 tracing. Difficult to picker tender contractions on toco. Pt resuscitated with O2 and LLP. Hold IV bolus in setting of cardiomyopathy. ?? Labor Plans: Pitocin at 6mU. Will stop for now until tracing improves. ?? GBS Management: continue pcn for GBS unknown in setting of , cx pending ?? Pain: will request epidural at this time ?? Passive descent with assisted second stage (vacuum vs. Forceps) per cardiology recommendations. ?? Patient has PICC in place Additional Issues Management of cardiomyopathy as per Cardiology F/u GC/CT cx Consent for CS completed with patient and patient's mother (per telephone consent) Discussed with Dr. Sprague. GRACE JUAREZ MD PGY4 10/07/2013 Attending note I have personally reviewed the patient's progress in labor and agree with Dr. Juarez' assessment andplan as documented. She has begun to sense contractions so will ask anesthesiology to place an epidural. Will defer need for IV bolus to them. We have stopped the IV oxytocin as there has been decreasing variability and occasional decelerations. Will restart the infusion after the epidural is placed an functioning well and when the heart rate pattern is reassuring. Marita Sprague MD * Emma Branch RN - 10/07/2013 12:42 PM EDT Pt taken off EFM, up to BR to Void, IV team at , decision to have PICC placement for IV access, will continue monitoring after IV access obtained and restart induction at that time. * Marita Sprague MD - 10/07/2013 11:41 AM EDT Labor Progress Note ID: Mary Porras is a 18 y.o. female at 36w6d gestation (by 14 week U/S) admitted for induction of labor for worsening dilated cardiomyopathy with LVEF 35%. She is now HD#4. Subjective: Mary has no complaints. She is more comfortable with exams s/p IV fentanyl. Objective: Temp: 36.9 ??C (98.4 ??F) 24 hr Temp: [36.5 ??C (97.7 ??F)-36.9 ??C (98.4 ??F)] Heart Rate: 107 24 hr Heart Rate: [91-107] BP: 96/68 mmHg 24 hr BP: (96-144)/(58-90) Cervix Exam: Dilation: 2.5 (10/07/13 1120) Effacement: 70 Station: -2 Position: Mid-Position Consistency: Soft Taylor Score: 7 OB Examiner: Dr Juarez Heart Rate Interpretation: Mode: continuous external (10/07/13 1130) HR (beats/min): 140 Variability: minimal (detectable: amplitude less than or equal to 5 bpm) Accelerations: absent Decelerations: none Contraction Frequency (min): approx 5-6 Nonstress Test Interpretation: Reactive, >32 weeks: two 15 bpm accelerations lasting 15 seconds Overall Impression: Reassuring for gestational age Comments: irregular contractions GBS Lab Results Component Value Date GBSSCREEN Neg 10/04/2013 Assessment & Plan This is Mary Porras who is at 36w6d. Labor Assessment: Early latent labor s/p cervidil removal at 1000. ?? Labor Plans: will start pitocin for continued IOL. ?? GBS Management: continue pcn for GBS unknown in setting of , cx pending ?? Pain: Fentanyl 50mcg IV prn prior to cervical exams due to patient discomfort ?? Plan for early epidural with onset of pain and passive descent with assisted second stage (vacuum vs. Forceps) per cardiology recommendations. ?? Patient has poor IV access. Per Cardiology team, no need for central line at this time. Recommend PICC vs 18-gauge PIV for improved access. Will wait for better access prior to pitocin administration. Additional Issues Management of cardiomyopathy as per Cardiology F/u GC/CT cx Consent for CS completed with patient and patient's mother (per telephone consent) Patient seen, examined, and plan discussed with Dr. Sprague. GRACE JUAREZ MD PGY4 10/07/2013 Attending note I have personally reviewed the patient's progress in labor and agree with Dr. Juarez's assessment and plan as documented. I saw the patient with Dr. Juarez. The patient is comfortable, denies painful contractions. Has not had bleeding Will place an 18 gauge IV prior to continuing with induction. Then will start oxytocin. Marita Sprague MD * Sidney Canela MD - 10/07/2013 7:00 AM EDT Labor Progress Note ID: Mary Porras is a 18 y.o. female at 36w6d gestation (by 14 week U/S) admitted for induction of labor for worsening dilated cardiomyopathy with LVEF 35%. She is now HD#3. Subjective: Patient remains comfortable - feeling some intermittent cramping but not requesting analgesia Objective: Temp: 36.9 ??C (98.4 ??F) 24 hr Temp: [36.5 ??C (97.7 ??F)-36.9 ??C (98.4 ??F)] Heart Rate: 91 24 hr Heart Rate: [91-107] BP: 121/75 mmHg 24 hr BP: (102-144)/(58-90) Cervix Exam: Cervical Exam: Dilation: 1 (10/06/13 2200) Effacement: 75 Station: -2 Position: Anterior Consistency: Soft Taylor Score: 8 OB Examiner: adam Rodriguez placed at 2200 hrs Heart Rate Interpretation: Five hours of tracing reviewed: Baseline wandering 135-145, mod variability, accels to 170, rare isolated shallow spontaneous decels w/late appearance and rare variable decels with immediate return to baseline, no visible contractions on toco. GBS unknown; pending Assessment & Plan 18 y.o. female at 36w6d gestation (by 14 week US) admitted for induction of labor for worsening dilated cardiomyopathy with LVEF 35%. She is now HD#3. Patient remained hemodynamically stable with normal vitals and pulse oximetry indicating compensated cardiomyopathy. Patient now s/p misoprostol x6 for cervical ripening with now good cervical change and cervix more favorable (taylor 8). Cervidil placed for ripening at 2200 hrs. Patient remains comfortable without need for analgesia Labor Assessment: Not in labor. ?? Labor Plans: Repeat exam at 1000 hrs when cervidil due to come out. Consider epidural at that time if cervix more favorable, followed by pitocin ?? GBS Management: Penicillin; cx pending ?? Pain: Fentanyl 50mcg IV prn prior to cervical exams due to patient discomfort ?? Plan for early epidural and passive descent with assisted second stage (vacuum vs. Forceps) per cardiology recommendations. Heart Tracing: Category II due to intermittent isolated late-appearing and variable decelerations, reassuring tracing in between. ?? If decelerations become repetitive, begin usual interventions of oxygen administration, maternalposition change, and assessment of uterine tone. Terbutaline is in room available if needed for tachysystole. Additional Issues ?? Management of cardiomyopathy as per Cardiology ?? F/u GC/CT cx ?? Consent for CS completed with patient and patient's mother (per telephone consent) SIDNEY CANELA MD, PGY4 10/07/2013 * Alexandr Castaneda MD - 10/07/2013 5:27 AM EDT Inpatient Cardiology Progress Note Hospital Day 3 days ID: 18yo F with PMH of viral cardiomyopathy, presenting at 36 weeks gestation for induction oflabor under cardiology supervision due to worsening cardiomyopathy (EF 35%) without clinical e/o heart failure. 24 Hour Events/Subjective: -Cervix dilated to 1 cm with misoprostol -No contractions -Overall feeling well, denies SOB or worsening in KATH[place]INE -Hemodynamically stable overnight Inpatient Medications: Metoprolol 12.5 BID (home med) Pediatric multivitamin PCN G for GBS prophylaxis Tylenol PRN Cervidil PRN Terbutaline PRN Vitals: Last value Range last 24 hrs Temperature Temp: 36.9 ??C (98.4 ??F) Temp: [36.5 ??C (97.7 ??F)-37 ??C (98.6 ??F)] Heart Rate Heart Rate: 100 Heart Rate: [93-107] Blood Pressure BP: 121/75 mmHg BP: (86-144)/(54-90) Respiratory Rate Resp: 22 Resp: [14-24] SpO2 SpO2: 98 % SpO2: [94 %-100 %] Gen: NAD breathing comfortably on room air. CV: Regular rate, rhythm, no murmurs/rubs/gallops; equal distal pulses Pulm: CTA-B Abd: No abd tenderness Ext: No C/C/E Laboratory: Recent Labs Basename 10/07/13 0420 10/06/1343910/05/13 0330 WBC 12.8 11.8 10.1 HGB 10.6* 10.5* 9.9* PLATELET 276 269 264 Recent Labs Basename 10/07/13 0420 10/06/130 10/05/13 0330 NA 138 137 138 K 4.1 4.3 3.9 CL 103 102 103 CO2 19* 21* 22 BUN 8* 9* 8* CREATININE 0.59 0.56 0.57 GLUCOSE 99 93 79 Recent Labs Basename 10/07/13 0420 10/06/13 0440 10/05/13 0330 CALCIUM 9.5 9.2 8.9 MAGNESIUM -- -- -- PHOS -- -- -- Recent Labs Basename 09/19/13 14506/30/13 1156 BILITOT 0.1 0.1 BILIDIR <0.1 <0.1 ALBUMIN 3.2 3.6 ALKPHOS 106 70 ALT 13 6 AST 19 11 Recent Labs Basename 09/19/13 1451 06/30/13 1156 TROPONINT -- -- CK -- -- PROBNP 104 342* Microbiology: U/A + for many bacteria, urine culture (P) Diagnostic Studies: None Assessment/Plan: 18yo F with viral cardiomyopathy since 4 months of age, presenting at 36 weeks gestation for induction of high risk with decline in LVEF to 35- 40%, no clinical evidence of heart failure and hemodynamically stable. Plan as below: CHF: - Lopressor 12.5 BID - Continue to monitor for symptoms of CHF exacerbation - Low threshold for placement of a-line, PA catheter if any e/o hemodynamic instability : -OBGYN following, we will follow their recs. FEN/PPX: -DVT: Ambulating -FEN/Diet: Regular diet replace K/Mg for goal 06/13 -Access: PIV -Code Status: Full code -DISPO: pending labor SRAVANTHI POP MD Cardiology S1/Team Pager [phone] 10/07/2013 Attending Attestation Please see Dr. Pop's note for details of the patient history of presentation and data. I have discussed, reviewed and agree with the documented History, Physical findings, Assessment and Plan ofcare. I have examined the patient myself and personally reviewed all studies. In addition, I certify thatI am a [facility] credentialed attending provider with admitting privileges and that the patient meets or has met medical necessity to require an inpatient IPI level of care meeting a minimum of two midnights or is on the [facility] inpatient only procedure list (status C) due to the need for ongoing observationand management while she undergoes an induced labor. Ms. Porras is a 18 year old woman with dilated cardiomyopathy, essentially at term with her first whom is here for induction of labor. Her cervix had only dilated to 1 cm this morning though the plan is to initiate her on pitocin for induction of labor. She remains stable from a cardiovascular perspective - that is, without worsening edema, orthopnea, PND, dyspnea, arrhythmia and chestdiscomfort. We have made contingency plans should she become hemodynamically unstable during the course of her labor. Alexandr Castaneda M.D. Staff Overhead [employer] [facility] Pager #[phone] * Rod Wyatt RN - 10/07/2013 5:07 AM EDT 0506- Pt c/o discomfort in lower back, and top of back of legs. Several position changes attempted.Hot pack applied to back. Pt in SF position with legs elevated a pillow. Offered pain medicine, pt declines at this time. 0520- pt to BR. * Estephania Heller RN - 10/07/2013 4:19 AM EDT 0445-M. Edmundo resumed care * Estephania Heller RN - 10/07/2013 3:04 AM EDT 0300-assumed care of patient from [facility] 0405-intermittent decels to 135. Pt turned to left side. Pt. Sleeping at this time 0410-Pt. Had move back to flat on her back. Repositioned her to right side. * Rod Wyatt RN - 10/07/2013 2:33 AM EDT 0230- pt up to BR. No complaints. Pt denies cramping or ctxs at this time. Voiding well. Pt repositioned to left side. * Jannie Tenorio MD - 10/07/2013 2:15 AM EDT Labor Progress Note ID: Mary Porras is a 18 y.o. female at 36w6d gestation, ROHINI 10/29/2013 by 14 week US admitted for induction of labor for worsening dilated cardiomyopathy with LVEF 35%. She is now HD#2. Subjective: The patient is sleeping. Objective: Temp: 36.9 ??C (98.4 ??F) 24 hr Temp: [36.6 ??C (97.9 ??F)-37 ??C (98.6 ??F)] Heart Rate: 107 24 hr Heart Rate: [92-107] BP: 102/58 mmHg 24 hr BP: (86-144)/(54-90) Cervix Exam: Cervical Exam: Dilation: 1 (10/06/13 2200) Effacement: 75 Station: -2 Position: Anterior Consistency: Soft Taylor Score: 8 OB Examiner: Tammie Canela, cervidil placed at 2200 hrs Heart Rate Interpretation: Four hours of tracing reviewed. Baseline wandering 135-150, mod variability with periods of minimal variability, accels to 170, 6 total intermittent spontaneous shallow decelerations (variable and late-appearing decels) with immediate return to baseline, no visible contractions on toco. GBS unknown; pending Assessment & Plan 18 y.o. female at 36w6d gestation, ROHINI 10/29/2013 by 14 week US admitted for induction of laborfor worsening dilated cardiomyopathy. HD#2. Patient remained hemodynamically stable with normal vitals and pulse oximetry indicating compensated cardiomyopathy. Patient now s/p misoprostol x6 for cervical ripening with now good cervical change and cervix more favorable (taylor 8). Cervidil placed for ripening at 2200 hrs. Patient remains comfortable and is sleeping without need for analgesia. Labor Assessment: Not in labor. ?? Labor Plans: Repeat exam at 1000 hrs when cervidil due to come out. Likely amniotomy and pitocinat that time ?? GBS Management: Penicillin; cx pending ?? Pain: Fentanyl 50mcg IV prn prior to cervical exams due to patient discomfort ?? ambien 10mg for sleep ?? Plan for early epidural and passive descent with assisted second stage (vacuum vs. Forceps) per cardiology recommendations. Heart Tracing: Category II due to intermittent isolated late-appearing and variable decelerations, reassuring tracing in between. ?? If decelerations become repetitive, begin usual interventions of oxygen administration, maternalposition change, and consider removing Cervidil. Additional Issues ?? Management of cardiomyopathy as per Cardiology ?? F/u GC/CT cx ?? Consent for CS completed with patient and patient's mother (per telephone consent) ?? Terbutaline x 1 prn uterine hyperstimulation with Geriatric Social Work Professor RN in [facility] to carry ZAINAB MEDINA MD, PGY1 10/07/2013 No status change or change in management. Reveiwed with oncoming attending at morning report. * Rod Wyatt RN - 10/07/2013 2:14 AM EDT This note also relates to the following rows which could not be included: Heart Rate - Cannot attach notes to unvalidated device data Resp - Cannot attach notes to unvalidated device data SpO2 - Cannot attach notes to unvalidated device data Pt denies feeling any ctxs. abd palpated, no tightening felt. abd soft. Pt resting comfortably. No complaints. * Rod Wyatt RN - 10/06/2013 11:50 PM EDT This note also relates to the following rows which could not be included: Heart Rate - Cannot attach notes to unvalidated device data Resp - Cannot attach notes to unvalidated device data SpO2 - Cannot attach notes to unvalidated device data Pt repositioned to right side. FHR 150 with mod variability and variable decels to 90-120. FHR return to baseline with position change, no further decels noted. * Rod Wyatt RN - 10/06/2013 11:28 PM EDT Pt repositioned to left side. Pt denies discomfort at this time. * Jannie Tenorio MD - 10/06/2013 10:11 PM EDT Labor Progress Note ID: Mary Porras is a 18 y.o. female at 36w5d gestation, ROHINI 10/29/2013 by 14 week US admitted for induction of labor for worsening dilated cardiomyopathy with LVEF 35%. She is now HD#2. Subjective: The patient notes irregular cramping which is non painful. No complaints. She is interested in ambien for sleep tonight. Objective: Temp: 36.8 ??C (98.2 ??F) 24 hr Temp: [36.6 ??C (97.9 ??F)-37 ??C (98.6 ??F)] Heart Rate: 105 24 hr Heart Rate: [92-111] BP: 136/75 mmHg 24 hr BP: (86-142)/(54-90) Cervix Exam: Cervical Exam: Dilation: 1 (10/06/13 2200) Effacement: 75 Station: -2 Position: Anterior Consistency: Soft Taylor Score: 8 OB Examiner: Tammie Canela, cervidil placed at 2200 hrs Heart Rate Interpretation: Baseline 150, mod variability, accels to 165, no decels, no contractions on toco. GBS unknown; pending Assessment & Plan 18 y.o. female at 36w5d gestation, ROHINI 10/29/2013 by 14 week US admitted for induction of laborfor worsening dilated cardiomyopathy. HD#2. Patient now s/p misoprostol x6 for cervical ripening with now good cervical change and cervix more favorable (taylor 8). Cervidil placed for ripening at 2200 hrs. Patient not yet with significant discomfort to necessitate analgesia. Plan for early epidural and passive descent with assisted second stage (vacuum vs. Forceps) per cardiology recommendations. Labor Assessment: Not in labor. ?? Labor Plans: Repeat exam at 1000 hrs when cervidil due to come out. Likely amniotomy and pitocinat that time ?? GBS Management: Penicillin; cx pending ?? Pain: Fentanyl 50mcg IV prn prior to cervical exams due to patient discomfort ?? ambien 10mg for sleep Additional Issues ?? Management of cardiomyopathy as per Cardiology ?? F/u GC/CT cx ?? Consent for CS completed with patient and patient's mother (per telephone consent) ?? Terbutaline x 1 prn uterine hyperstimulation with Geriatric Social Work Professor RN in [facility] to carry SIDNEY CANELA MD, PGY4 10/06/2013 Dr. Canela and I reviewed the findings and there are no changes to our management plan. Pt. Will be reviewed with oncoming attending at morning rounds. Plan is in place if c/s becomes necessary (main OR room 22 with technician test systems to be called). * Shaneka Wadsworth RN - 10/06/2013 8:43 PM EDT 2000- pt is resting in bed, up to toilet when needed. Pt is drinking water and has ice chips. Pt feels some occasional mild abdominal cramping. Fetus is active. Pt denies headache, visual changes, nausea, epigastric pain, LOF or bleeding. Plan of care explained to pt and family including timing of next cervical exam, medications used for continued induction, s/s to report to staff, and indications for delivery. 2115- FHR monitoring d/c'd by Dr Canela instruction. Will resume when OBs are available for next cervical exam. 2199- SVE by Dr Canela: /. Pt tolerated exam well, was premedicated with IV fentanyl by CVRN. cervadil placed by Dr Canela. Effects of medication, indication for use, and frequency of cervical exams discussed with patient. Pt agrees to plan. Pt currently feels the same mild cramping, fetus is active. * Gloria Menard MD - 10/06/2013 4:40 PM EDT Labor Progress Note ID: Mary Porras is a 18 y.o. female at 36w5d gestation, ROHINI 10/29/2013 by 14 week admitted for induction of labor for worsening dilated cardiomyopathy. HD#2. Subjective: The patient is feeling intermittent cramping pain and contractions, tolerating induction well and using acetaminophen prn pain. Objective: Temp: 36.6 ??C (97.9 ??F) 24 hr Temp: [36.6 ??C (97.9 ??F)-37 ??C (98.6 ??F)] Heart Rate: 101 24 hr Heart Rate: [92-116] BP: 123/77 mmHg 24 hr BP: (86-123)/(54-90) Cervix Exam: 1 cm / 50% / -2 / soft / post +bloody show Misoprostol #6 placed at time of exam Heart Rate Interpretation: 145bpm, mod variability, +accels, -decels Irregular ctx on toco, poorly tracing GBS unknown; pending Assessment & Plan 18 y.o. female at 36w5d gestation, ROHINI 10/29/2013 by 14 week US admitted for induction of laborfor worsening dilated cardiomyopathy. HD#2. Patient now s/p misoprostol x6 for cervical ripening with slight cervical change since beginning induction. Plan for early epidural and passive descent with assisted second stage. Labor Assessment: Not in labor. ?? Labor Plans: Recheck in 4 hrs and consider cervidil versus christianson balloon and Pitocin. Patient may requireadministration of epidural for comfort vs Fentanyl premedication before christianson balloon insertion. ?? GBS Management: Penicillin; cx pending ?? Pain: Fentanyl 50mcg IV prn prior to cervical exams Additional Issues ?? Management of cardiomyopathy as per Cardiology ?? F/u GC/CT cx ?? Consent for CS completed with patient and patient's mother (per telephone consent) ?? Terbutaline x 1 prn uterine hyperstimulation with Geriatric Social Work Professor RN in [facility] to carry MARY BETH OLIVER MD, PGY3 10/06/2013 I have personally reviewed this patients progress in labor and agree with the documentation above. Reassuring surveillance and some progress in cervical ripening GLORIA MENARD MD * Vicky Caballero RN - 10/06/2013 4:13 PM EDT Office of Care Management (OCM) / Clinical Field Care Manager (CRC)/ Initial Assessment Discussed patient with Provider Team and in multidisciplinary discharge-planning rounds. Reviewed record and interviewed patient. Introduced/reviewed CRC role and services accepted. REASON for HOSPITALIZATION: High risk teen Cardiomyopathy. 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 Teen . PREVIOUS FUNCTIONAL STATUS: Active. Was attending high school ([employer]) as combination Jr/Sr year until July when it became too uncomfortable and too much CURRENT FUNCTIONAL STATUS: Bedrest, BRP's. To labor and deliver (if vaginally) in the [facility].with cardiac monitoring. Cervical ripening in progress to be followed by IOL. OB/L&D nurse at bedside. SOCIAL / FAMILY SUPPORTS: Mary is in an intact relationship with RASHEED Gonsalez who lives with Mary and her family (mother and step father) as well as 2 of her 3 siblings (11 year old brother and 5 year old sister) in [place], [place]. She also has a 23 year old brother (born to her mom at the age of 14) Her mom Estephania Muse is a primary support. She also notes her grandmother and step-mother. Wallace is present and appears attentive and supportive. He plans to stay at her bedside throughout the IOL/Delivery process. Mary notes 5-6 other relatives that live in the [facility] that have been to visit her since her admission. Wallace has his tractor trailer truck driver's license, but not a working automobile. He is presently working in carpentry/building-employed by Mary's step-father, so his time off to be with her is not causing difficulties with his job. Mary was trying to complete the school year, but stopped at the end of July. She believes she will be able to graduate high school by February. She states her has been long and kind of hard and that she gained over 65 pounds. She has spent quite a bit of time in bed. Her mom is her legal guardian, and will be available and responsible to make medical decisions as she is a minor and in the event Mary is unableto do so. Her baby is a boy child, to be named Julian. Petr's family lives in [place], [place] and [place] to [place] [facility] [place] as well. ADVANCE DIRECTIVES: None. Pt is under 18 and not able to complete an A.D. of her own. Her mother isher legal decision maker at this time (for consents and decisions should Mary not be able to speak her choices. (Verified with Risk Management) HEALTH /PRESCRIPTION COVERAGE: [place] Medicaid primary, Pt states her step dad (Chad Peterson) hasher as a dependent on his VA policy as a secondary insurance. CURRENT HOME/COMMUNITY SERVICES/EQUIPMENT: DME: None prior to admission Home Health Agency: None prior Other: Pt is applying for WIC/food stamps once baby is born DIRECTOR EXTERNAL COMMUNICATIONS REFERRAL: Notified OB DIRECTOR EXTERNAL COMMUNICATIONS - for Support/Financial/Medication Assistance; See DIRECTOR EXTERNAL COMMUNICATIONS notes for further needs. Will meet with patient after delivery and once stable/recovered. PRIMARY CARE PHYSICIAN: DAVID ALDRICH MD [address] / [facility] [address] POTENTIAL DISCHARGE NEEDS: Pt states she has furniture, stroller, supplies for baby. DOES NOT HAVE AN INFANT CAR SEAT AND MAY NEED ASSISTANCE WITH THIS. [facility] F/U recommended. [facility] resources and referrals. ([facility] referral) PATIENT/FAMILY EDUCATION NEEDS: All aspects of care. Self Care post delivery. Controlplan. ANTICIPATED BARRIERS TO DISCHARGE: None TRANSPORTATION @ D/C: Mother/Step-father PLAN: CRC will continue to monitor progress, follow for continuity of care and assist with discharge planning while hospitalized. DIRECTOR EXTERNAL COMMUNICATIONS will follow as well. . * Alexandr Castaneda MD - 10/06/2013 12:45 PM EDT Inpatient Medicine Progress Note Hospital Day 2 days Active Hospital Problems Diagnosis ??? High risk teen ??? Cardiomyopathy Resolved Hospital Problems Diagnosis Date Resolved No resolved problems to display. ID:Mary Porras is a 18 y.o. year old female with PMHx cardiomyopathy who is at 36 weeks gestation, here for induction of labor with cardiology monitoring. 24 Hour Events: Was moved to [facility] 10/05. OB has begun the process of inducing labor, this may take several days. Subjective: Having some cramping/contractions with some associated SOB, likely 2/2 pain. ROS: Denies fevers/chills, chest pain, diarrhea/vomiting/abdominal pain/constipation, muscle aches or weakness. Inpatient Medications: Scheduled Meds: ??? [COMPLETED] fentaNYL Citrate (PF) ??? pediatric multivitamin 1 tablet Oral Daily ??? [COMPLETED] penicillin G potassium 5 million unit vial attach to sodium chloride 0.9% 100 mL Mini-Bag Plus 5 Million Units Intravenous Once Followed by ??? penicillin G potassium 3 Million Units Intravenous Q4H ??? sodium chloride 0.9 % 5 mL Intravenous BID ??? metoprolol tartrate 12.5 mg Oral BID Vitals: Last value Range last 24 hrs Temperature Temp: 36.7 ??C (98.1 ??F) Temp: [36.6 ??C (97.9 ??F)-37 ??C (98.6 ??F)] Heart Rate Heart Rate: 96 Heart Rate: [92-116] Blood Pressure BP: 110/63 mmHg BP: (86-120)/(54-90) Respiratory Rate Resp: 18 Resp: [16-25] SpO2 SpO2: 98 % SpO2: [96 %-99 %] Ins/Outs: Intake/Output Summary (Last 24 hours) at 10/06/13 1245 Last data filed at 10/06/13 1100 Gross per 24 hour Intake 2890 ml Output 3040 ml Net -150 ml Physical Exam: Gen: Young woman in NAD breathing comfortably on room air. HEENT: EOMI, Oropharynx clear, moist mucus membranes, neck supple, no carotid bruits, JVP within normal limits, equal 2+ carotids CV: Reg rhythm, slightly tachycardic in low 100s. No murmurs/rubs/gallops; equal distal pulses; no carotid/renal/inguinal bruits Pulm: Normal respiratory effort, speaking normally, clear to auscultation bilaterally, no rales/rhonchi/wheezes Thorax: no TTP, no tenderness w/ AP or lateral wall compression Abd: Ext: equal coloration, no pedal edema, 2+ radial/DP pulses, equal warmth Skin: Warm, dry, no rash/livedo Neuro: -alert, appropriate, oriented -sensation to light touch equal/symmetric U/L limbs Laboratory: CBC: Recent Labs Basename 10/06/1343910/05/1332909/19/13 1451 WBC 11.8 10.1 12.3 HGB 10.5* 9.9* 10.0* PLATELET 269 264 296 Chemistry: Recent Labs Basename 10/06/1343910/05/1332909/19/13 1451 NA 137 138 139 K 4.3 3.9 4.1 CL 102 103 104 CO2 21* 22 23 BUN 9* 8* 6* CREATININE 0.56 0.57 0.56 GLUCOSE 93 79 122 Recent Labs Basename 10/06/1343910/05/1332908/14 1451 CALCIUM 9.2 8.9 9.7 MAGNESIUM -- -- -- PHOS -- -- -- LFT's: Recent Labs Basename 09/19/13 1451 06/30/13 1156 BILITOT 0.1 0.1 BILIDIR <0.1 <0.1 ALBUMIN 3.2 3.6 ALKPHOS 106 70 ALT 13 6 AST 19 11 Cardiac enzymes: Recent Labs Basename 09/19/13 1451 06/30/13 1156 TROPONINT -- -- CK -- -- PROBNP 104 342* Endocrine: Recent Labs Basename 06/30/13 1156 TSH 1.23 CORTISOL -- Microbiology: U/A + for many bacteria, urine culture (P) Diagnostic Studies: None Assessment/Plan: This is a 18 y/o at 36 weeks gestation with PMHx of dilated cardiomyopathy with decline in LVEF and worsening heart failure symptoms who presents for induction of labor in light of CHF. She willbe admitted to the cardiology service with OBGYN following. Details of plan to follow: CHF: - Lopressor 12.5 BID - Continue to monitor for symptoms of CHF exacerbation : -OBGYN on board, we will follow their recs. - Induction imminent FEN/PPX: -DVT: Ambulating -FEN/Diet: Regular diet replace K/Mg for goal 06/13 -Access: PIV -Code Status: Full code -DISPO: pending labor Jayde Humphries PGY-1 Internal Medicine [id number] Team Pager #[phone] 10/06/2013 Cardiology Attending Attestation Please see Dr. Humphries's note for details of the patient history [...] of two midnights or is on the [facility] inpatient only procedure list (status C) due to the need for intensive monitoring and management while undergoing labor. Ms. 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 She is currently undergoing cervical ripening and is stable from a cardiovascular perspective (no difficulty breathing, no chest discomfort, no orthopnea, edema as expected).We will continue to monitor her closely in the [facility] unit. Alexandr Castaneda M.D. Staff Overhead Crane Truck Loader [facility] Pager #[phone] * Gloria Menard MD - 10/06/2013 11:48 AM EDT Labor Progress Note ID: Mary Porras is a 18 y.o. female at 36w4d gestation, ROHINI 10/29/2013 by 14 week US admitted for induction of labor for worsening dilated cardiomyopathy. HD#2. Subjective: The patient is tolerating induction well, reports increased cramping. The patient is using acetaminophen currently for pain management and fentanyl iv prn cervix exams. Objective: Temp: 36.7 ??C (98.1 ??F) 24 hr Temp: [36.6 ??C (97.9 ??F)-37 ??C (98.6 ??F)] Heart Rate: 99 24 hr Heart Rate: [92-116] BP: 115/77 mmHg 24 hr BP: (86-120)/(54-90) Cervix Exam: 1 cm / 50% / -2 / soft / post +bloody show Heart Rate Interpretation: Mode: continuous external (10/06/13 1100) HR (beats/min): 145 Variability: moderate (amplitude range 6 to 25 bpm) Accelerations: present Decelerations: none Contraction Frequency (min): 1-4 Nonstress Test Interpretation: Reactive, >32 weeks: two 15 bpm accelerations lasting 15 seconds Overall Impression: Reassuring for gestational age Comments: irregular contractions GBS No results found for this basename: gbsscreen, Assessment & Plan This is Mary Porras who is at 36w5d. Interval cervical change noted; continue with cervical ripening. Miso #5 placed during this exam. Plan for early epidural and passive descent with assisted second stage. Labor Assessment: Not in labor. ?? Labor Plans: Continue present management. ?? GBS Management: Penicillin; cx pending ?? Pain: fentanyl iv prn cervical exam Additional Issues ?? Management of cardiomyopathy as per Cardiology ?? F/u GC/CT cx ?? Consents completed with patient and patient's mother (per telephone consent) ?? Terbutaline x 1 prn, RN in [facility] to carry Patient was seen and evaluated with Dr. Canela PGY-[address] Menard Attending. CONCHITA ECHOLS MD PGY-1 10/06/2013 I saw and reviewed this patients progress in labor and agree with the documentation above. She is stable and has reassuring surveillance GLORIA MENARD MD * Sravanthi Avalos RN - 10/06/2013 8:07 AM EDT 0720- Report received from Gurpreet Weathers RN and care assumed. Patient resting on left side with significant other asleep at bedside. EFM telemetry on patient and tracing. Cardiac monitoring continues. NoIV infusions at this time. 0800- [facility] RN initiating PCN dose, patient continues to sleep soundly. 0840- Patient up to void in room. 0843- Back to bed to eat breakfast, EFM readjusted to trace heart tones and contractions. Uterus palpate soft between contractions which patient describes as crampy. [facility] RN Jayde performed physical assessment as documented. 0900- EFM u/s and toco readjusted due to maternal movement. 0902- Patient turned to right lateral position, heart tracing interrupted. Attempting to readjust to obtain heart tracing. 0910- heart tracing, patient resting on right side. Significant other continues to sleep in chair at bedside. 1007- [place] readjusted, patient reports feeling crampy occasionally, Continues to rest on right side. 1017- Pt requesting Tylenol for abdominal crampiness. 1021- To left side, EFM readjusted. Patient requesting hot pack for lower back. T-Pump requested from stores. 1037- Patient up to void in room, EFM u/s intermittently tracing. 1042- EFM u/s readjusted, patient sitting up in bed. 1110- EFM tracing maternal pulse when patient sitting straight up in bed. Patient readjusted to trace heart rate. 1123- Dr Menard, Dr Canela and Dr Jesus Manuel MEDINA at bedside. EFM strip reviewed by MD's. 1128- Fentanyl IV given by Tiffanie Travis RN as ordered prior to cervical exam. 1133- Cervical exam by Dr. Jesus Manuel MEDINA . Misoprostol # 5 placed at this time. 1150- [place] readjusted following maternal movement. 1152- Alessio Da Silva MD Anesthesia at bedside discussing plan of care with patient. 1249- Patient states that she occasionally feels crampy but nothing consistently. 1254- Up to void, toco tracing maternal movement. 1305- [place] zeroed, patient sitting up eating lunch in bed. States that the T- pump is help to relieve her lower back pain. 1343- Zohaib Hurst RN covering advertising copy writer for break. Dr Canela and Dr Jesus Manuel MEDINA reviewed EFM strip. 1440- Care reassumed by advertising copy writer. Patient resting on left side in bed. Significant other Petr remains supportive at bedside. 1502- Patient sleeping on left side. 1510- Up to void. 1513- Telemetry monitoring removed to charge and bedside monitor placed on patient. 1530- Patient sleeping soundly, not waking with contractions. 1610- Turned to right side. EFM adjusted. 1621- Angel Oliver MD at bedside evaluating patient. heart tracing reviewed. 1627- Repositioned for cervical exam. 1634- Fentanyl IV push given by Tiffanie Travis RN per MD order. Cervical exam unchanged. Misoprostol 25 mcg placed vaginally by Angel Oliver. 1649- Turned to right side, resting. 1731- Repositioned to sitting position to eat dinner. [place] and U/S readjusted. [place] adjusted frequently throughout day in attempt to trace contractions. Patient denies painful contractions at this time. 1744- Up to bathroom to void, telemetry EFM applied. 1826- Patients mother at bedside visiting. 184- Ultrasound EFM adjusted to obtain continuous heart tracing. 181- Report to May Wadsworth RN and care released. * Conchita Echols MD - 10/06/2013 7:05 AM EDT Labor Progress Note ID: Mary Porras is a 18 y.o. female at 36w4d gestation, ROHINI 10/29/2013 by 14 week US admitted for induction of labor for worsening dilated cardiomyopathy. HD#2. Subjective: The patient is tolerating induction well. The patient is using acetaminophen currently for pain management and fentanyl iv prn cervix exams. Objective: Temp: 37 ??C (98.6 ??F) 24 hr Temp: [36.5 ??C (97.7 ??F)-37 ??C (98.6 ??F)] Heart Rate: 97 24 hr Heart Rate: [92-116] BP: 102/54 mmHg 24 hr BP: (102-120)/(54-90) Cervix Exam: Dilation: 0.5 (10/06/13 0701) External os 1 cm Effacement: 0 Station: High -4 Position: Posterior Consistency: Firm Taylor Score: 0 OB Examiner: Dr. Echols Heart Rate Interpretation: Mode: continuous external (10/06/13 0700) HR (beats/min): 145 Variability: moderate (amplitude range 6 to 25 bpm) Accelerations: present Decelerations: none Contraction Frequency (min): irregular Nonstress Test Interpretation: Reactive, >32 weeks: two 15 bpm accelerations lasting 15 seconds Overall Impression: Reassuring for gestational age Comments: irregular contractions GBS No results found for this basename: gbsscreen, Assessment & Plan This is Mary Porras who is at 36w5d. No change in cervical exam; continue with cervical ripening. Miso #4 placed during this exam. Plan for early epidural and passive descent with assisted second stage. Labor Assessment: Not in labor. ?? Labor Plans: Continue present management. ?? GBS Management: Penicillin; cx pending ?? Pain: fentanyl iv prn cervical exam Additional Issues ?? Management of cardiomyopathy as per Cardiology ?? F/u GC/CT cx ?? Consents completed with patient and patient's mother (per telephone consent) ?? Terbutaline x 1 prn, RN in [facility] to carry Patient was seen and evaluated with Dr. Canela PGY-4. CONCHITA ECHOLS MD PGY-1 10/06/2013 * Isaiah Hernandez MD - 10/06/2013 3:02 AM EDT Labor Progress Note ID: Mary Porras is a 18 y.o. female at 36w4d gestation, ROHINI 10/29/2013 by 14 week US admitted for induction of labor for worsening dilated cardiomyopathy. HD#2. Subjective: The patient is tolerating induction well. The patient is using acetaminophen currently for pain management. Objective: Temp: 36.7 ??C (98.1 ??F) 24 hr Temp: [36.4 ??C (97.5 ??F)-37 ??C (98.6 ??F)] Heart Rate: 111 24 hr Heart Rate: [95-116] BP: 113/71 mmHg 24 hr BP: (102-120)/(59-90) Cervix Exam: Dilation: 1 (10/05/13 2238) Effacement: 50 Station: High -4 Consistency: Medium OB Examiner: Angel Ibrahim MD Heart Rate Interpretation: Mode: continuous external (10/06/13 0100) HR (beats/min): 135 Variability: moderate (amplitude range 6 to 25 bpm) Accelerations: present Decelerations: none Contraction Frequency (min): irregular Nonstress Test Interpretation: Reactive, >32 weeks: two 15 bpm accelerations lasting 15 seconds Overall Impression: Reassuring for gestational age Comments: irregular contractions GBS No results found for this basename: gbsscreen, Assessment & Plan This is Mary Porras who is at 36w5d. No change in cervical exam; continue with cervical ripening. Miso #3 placed during this exam. Plan for early epidural and passive descent with assisted second stage. Labor Assessment: Not in labor. ?? Labor Plans: Continue present management. ?? GBS Management:: Penicillin; cx pending Additional Issues ?? Management of cardiomyopathy as per Cardiology. ?? F/u GC/CL cx ?? Consents completed with patient and patient's mother RUFINO IBRAHIM MD PGY-1 This patient seen and discussed with Dr. Heaven Santillan and Dr. Isaiah Hernandez. Patient seen and heart rate tracing reviewed. Agree with plan for continued cervical ripening. ISAIAH HERNANDEZ MD * Rufino Ibrahim MD - 10/05/2013 10:42 PM EDT Labor Progress Note ID: Mary Porras is a 18 y.o. female at 36w4d gestation, ROHINI 10/29/2013 by 14 week US admitted for induction of labor for worsening dilated cardiomyopathy. HD#2. Subjective: The patient is tolerating induction well. The patient is using nothing currently for pain management. Objective: Temp: 36.9 ??C (98.4 ??F) 24 hr Temp: [36.4 ??C (97.5 ??F)-37 ??C (98.6 ??F)] Heart Rate: 99 24 hr Heart Rate: [95-116] BP: 104/67 mmHg 24 hr BP: (102-120)/(54-90) Cervix Exam: Dilation: 1 (10/05/132237) Effacement: 50 Station: High -4 Consistency: Medium OB Examiner: Angel Ibrahim MD Heart Rate Interpretation: Mode: continuous external (10/05/131) HR (beats/min): 155 Variability: moderate (amplitude range 6 to 25 bpm) Accelerations: present (Prolonged) Decelerations: none Contraction Frequency (min): irregular Nonstress Test Interpretation: Reactive, >32 weeks: two 15 bpm accelerations lasting 15 seconds Overall Impression: Reassuring for gestational age Comments: irregular contractions GBS No results found for this basename: gbsscreen, Assessment & Plan This is Mary Porras who is at 36w4d. No change in cervical exam; continue with cervical ripening. Miso #2 placed during this exam. Plan for early epidural and passive descent with assisted second stage. Labor Assessment: Not in labor. ?? Labor Plans: Continue present management. ?? GBS Management:: Penicillin; cx pending Additional Issues ?? Management of cardiomyopathy as per Cardiology. ?? F/u GC/CL cx ?? Consents completed with patient and patient's mother RUFINO IBRAHIM MD PGY-1 This patient seen and discussed with Dr. Heaven Santillan and Dr. Isaiah Hernandez. * Isaiah Hernandez MD - 10/05/2013 10:25 PM EDT In to see patient. She is resting comfortably. She feels some intermittant cramping. Filed Vitals: 10/05/13 2200 BP: 104/67 Pulse: 99 Temp: Resp: 25 EFM shows baseline 140s, moderate variablity, +accels to 180s, no decelerations. Irregular contractions visible on monitor but not appreciated by pt. Patient and her partner and I discussed consent forms. Patient signed section consent formearlier today, but her mom was not available at the time. The patient does not have any further questions about . I called and spoke with her mom, Estephania Muse, on the phone. We reviewed the consentform. We discussed the nature of surgery. We reviewed possible indications including failure to progress and worsening maternal or status. We discussed benefits including delivery of the baby. Risks of surgery such as bleeding requiring transfusion, infection, injury to the bowel or bladder all discussed. Risks of injury to the baby or hysterectomy also reviewed. Patient's mom agreed to plan for if needed and verbal consent obtained. Consent confirmed by patient's nurse, Kathy Weathers RN. ISAIAH HERNANDEZ MD * Kathy Weathers RN - 10/05/2013 8:55 PM EDT 1915 - RN to [facility] 25 for bedside report, RN report received from Angel Avalos RN, pt care assumed, pt on EFM/toco, FHR WNL 1944 - Grace DRU RN to bedside, VS and assessment by [facility] RN as charted 1946 - Pt changing position, EFM adjusted 1950 - Pt given Tylenol for cramping and vitamin as charted 1999 - Pt having irregular ctx, c/o cramping, FHR baseline 135 bpm, moderate variability, accels, no decels 2030 - Pt OOB to void 2101 - Pt given Metoprolol as charted 2129 - Dr. Hernandez and Zohaib Rodriguez Med Student to bedside, plan of care reviewed with pt and her fiance Petr, c/s consent reviewed with pt 2147 - Telephone c/s consent reviewed with pt's mother Estephania & Dr. Hernandez, this RN witnessed & signed with Dr. Hernandez 2199 - Pt having irregular ctx, c/o cramping, tolerating well, reports fetus active, FHR baseline 140 bpm, accels, no decels 2214 - This RN to break, Angel Arriola RN to bedside to assume care of pt, RN report given at bedside 2237 - Dr. Ibrahim & Dr. Santillan to bedside, CE by Dr. Ibrahim (4), Miso #2 placed as charted 2255 - Pt OOB to void 2299 - This RN return to bedside, pt care assumed 0000 - Pt having irregular ctx, c/o cramping, tolerating well, FHR baseline 135 bpm, accels, no decels 010 - RN discussed pain management with Dr. Maykel MD to change frequency of Tylenol for pt's cramping, RN updated [facility] RN Grace 0123 - Pt given Tylenol as charted for cramping 0230 - FHR assessed at 140 bpm, unable to assess continuous baseline due to difficulty tracing FHR,multiple adjustments made to EFM, pt on right side sleeping 0250 - Dr. Ibrahim & Dr. Santillan to bedside, Miso # 3 placed as charted 0424 - Pt OOB to void 0440 - AM labs drawn and sent to lab 0635 - Pt OOB to void 0658 - Dr. Canela & Dr. Echols to bedside 0659 - Fentanyl 50 mcg given for CE 0701 - CE by Dr. Echols (0.5/-4), long, posterior, firm, cephalic, taylor score 0 0702 - Miso #[address] Canela as charted 0730 - Bedside report given to Angel Weathers RN * Rolf Hager RN - 10/05/2013 6:48 PM EDT Patient transferred to [facility] in anticipation of delivery induction. Able to ambulate from wheelchairto bed without assistance. Denies pain at this time; however reports that on occasion, she has had mild stomach discomfort. Oriented patient and significant other to room and room functions. Cardiac monitoring initiated. IV access changed by vascular access nurse. Delivery nurse at bedside assisting patient with childbirth aspects of care. Patient with one episode of retching and vomited a small amount of undigested food during IV insertion; however, she reports feeling hungry following the vomit episode and requests a second dinner tray be brought. Obstetric physician has been in to see patient. * Rod Dukes MD - 10/05/2013 6:48 PM EDT Labor Progress Note ID: Mary Porras is a 18 y.o. female at 36w4d gestation, ROHINI 10/29/2013 by 14 week US admitted for induction of labor for worsening dilated cardiomyopathy. HD#2. Subjective: The patient is tolerating induction well. The patient is using nothing currently for pain management. Objective: Temp: 37 ??C (98.6 ??F) 24 hr Temp: [36.4 ??C (97.5 ??F)-37 ??C (98.6 ??F)] Heart Rate: 116 24 hr Heart Rate: [95-116] BP: 113/69 mmHg 24 hr BP: (103-118)/(54-83) Cervix Exam: Dilation: 1 (10/05/13 1833) Effacement: 50 Station: High -4 Consistency: Medium OB Examiner: Gi Dukes MD Heart Rate Interpretation: Mode: continuous external (10/05/13 1800) HR (beats/min): 140 Variability: moderate (amplitude range 6 to 25 bpm) Accelerations: present Decelerations: none Contraction Frequency (min): irregular Nonstress Test Interpretation: Reactive, >32 weeks: two 15 bpm accelerations lasting 15 seconds Overall Impression: Reassuring for gestational age Comments: irregular contractions GBS No results found for this basename: gbsscreen, Assessment & Plan This is Mary Porras who is at 36w4d. Cervix unfavorable. Will proceed with cervical ripening.Miso x 1 placed during this exam. Plan for early epidural and passive descent with assisted second stage. Labor Assessment: Not in labor. ?? Labor Plans: Continue present management. ?? GBS Management:: Penicillin; cx pending Additional Issues ?? Management of cardiomyopathy as per Cardiology. ?? F/u GC/CL cx ?? Will need additional consent from mother either in person or via phone RUFINO IBRAHIM MD PGY-1 This patient seen and discussed with Dr. Rod Dukes. I evaluated the patient with Dr. Ibrahim and performed the cervical exam. I agree with his A&P. * Sravanthi Avalos RN - 10/05/2013 5:19 PM EDT 1649- Patient in [facility] for induction of labor. Awaiting IV placement and lab draw. EFM explained andplaced on patient. [facility] RN collaborating with advertising copy writer in patients care. Patient and significant other Petr asking appropriate questions. 1710-Patient turned to left tilt. 1732- Repositioned to sitting up for dinner. [place] readjusted. 1756- IV team at bedside attempting IV placement. Patient very anxious and sitting up vomiting. Intermittent tracing maternal pulse. 1807- Angel Ibrahim MD paged to notify of Misoprostol arrival from pharmacy. 1830- Dr Gi Dukes and Angel Ibrahim MD at bedside evaluating patient. 1833- Cervical exam 1 cm/50/ -4 medium. 1838- Misoprostol 25 mcg placed by Angel Ibrahim MD. 1845- Patient sitting up in bed eating dinner. * Lelia Del Valle RN - 10/05/2013 12:28 PM EDT Care Management(OCM)/Clinical Field Care Manager(CRC) CRC Service: Cardiology, Cardiothoracic and Thoracic Surgery TORSTEN Larson RN Pager # [phone] Record reviewed and patient discussed with multidisciplinary team. Pt will transfer to [facility]CC as soonas bed is available. TC with Priscilla Caballero, OB CRC [phone],. She will assist with d/c planning when pt is medically ready for d/c as well as be a resource while on ICCU/CVCC. Astrid Mittal, DIRECTOR EXTERNAL COMMUNICATIONS #[id number], ,will be following pt as well. Priscilla plans to touch base with Astrid regarding AD completion. Rene Herrera DIRECTOR EXTERNAL COMMUNICATIONS, #[id number] for Cardi updated, and can assist with AD if needed. ( Pt is 18). timber feller Zoie relayed that pt appears to have a good support system with pt's Mother and BF present. CRC remains available as needed for coordination of care and discharge planning. PER EP consult note 10/04: IMPRESSION: 1. Nonischemic cardiomyopathy predating with decline in left ventricular function. 2. Fairly stable congestive heart failure symptoms with mild worsening in recent weeks Discussed with maternal- medicine: Given the decline in left ventricular ejection fraction andworsening heart failure symptoms (although mild) we plan admission to the cardiology service with anticipated delivery (in the CCU) in the near future depending on her course. The advantage of waiting another week or 2 for maturity is limited and risks significant maternal decompensation which includes pulmonary edema and hemodynamically significant dysrhythmias which can lead to adverse outcomes. For labor and delivery recommend: Continuous ECG monitoring in the CCU very low threshold for invasive arterial and pulmonary artery monitoring for any evidence of hemodynamic compromise, dysrhythmia, hypoxemia, hypotension Limited pushing/assisted delivery Critical care monitoring for 48 hours postdelivery through the diuretic phase * Mare Smith MD - 10/05/2013 10:07 AM EDT Inpatient Medicine Progress Note Hospital Day 1 day Active Hospital Problems Diagnosis ??? High risk teen ??? Cardiomyopathy Resolved Hospital Problems Diagnosis Date Resolved No resolved problems to display. ID:Mary Porras is a 18 y.o. year old female with PMHx cardiomyopathy who is at 36 weeks gestation, here for induction of labor with cardiology monitoring. 24 Hour Events: No overnight events. Subjective: No SOB, no CAMPUZANO, no PND or orthopnea, otherwise no complaints. ROS: Denies fevers/chills, chest pain, shortness of breath, diarrhea/vomiting/abdominal pain/constipation, muscle aches or weakness. Inpatient Medications: Scheduled Meds: ??? pediatric multivitamin 1 tablet Oral Daily ??? sodium chloride 0.9 % 5 mL Intravenous BID ??? metoprolol tartrate 12.5 mg Oral BID Vitals: Last value Range last 24 hrs Temperature Temp: 36.8 ??C (98.2 ??F) Temp: [36.4 ??C (97.5 ??F)-37 ??C (98.6 ??F)] Heart Rate Heart Rate: 114 Heart Rate: [95-116] Blood Pressure BP: 116/65 mmHg BP: (103-118)/(54-74) Respiratory Rate Resp: 16 Resp: [16-20] SpO2 SpO2: 98 % SpO2: [97 %-98 %] Ins/Outs: Intake/Output Summary (Last 24 hours) at 10/05/13 1016 Last data filed at 10/05/13 0049 Gross per 24 hour Intake 960 ml Output 1200 ml Net -240 ml Physical Exam: Gen: Young woman in NAD breathing comfortably on room air. HEENT: EOMI, Oropharynx clear, moist mucus membranes, neck supple, no carotid bruits, JVP within normal limits, equal 2+ carotids CV: Reg rhythm, slightly tachycardic in low 100s. No murmurs/rubs/gallops; equal distal pulses; no carotid/renal/inguinal bruits Pulm: Normal respiratory effort, speaking normally, clear to auscultation bilaterally, no rales/rhonchi/wheezes Thorax: no TTP, no tenderness w/ AP or lateral wall compression Abd: Ext: equal coloration, no pedal edema, 2+ radial/DP pulses, equal warmth Skin: Warm, dry, no rash/livedo Neuro: -alert, appropriate, oriented -sensation to light touch equal/symmetric U/L limbs Laboratory: CBC: Recent Labs Basename 10/05/13 0330 09/19/13 1451 06/30/13 1156 WBC 10.1 12.3 11.5 HGB 9.9* 10.0* 11.0* PLATELET 264 296 287 Chemistry: Recent Labs Basename 10/05/13 0330 09/19/13 1451 06/30/13 1156 NA 138 139 139 K 3.9 4.1 3.9 CL 103 104 102 CO2 22 23 25 BUN 8* 6* 7* CREATININE 0.57 0.56 0.56 GLUCOSE 79 122 90 Recent Labs Basename 10/05/13 0330 09/19/13 14506/30/13 1156 CALCIUM 8.9 9.7 9.7 MAGNESIUM -- -- -- PHOS -- -- -- LFT's: Recent Labs Basename 09/19/13 14506/30/13 1156 BILITOT 0.1 0.1 BILIDIR <0.1 <0.1 ALBUMIN 3.2 3.6 ALKPHOS 106 70 ALT 13 6 AST 19 11 Cardiac enzymes: Recent Labs Basename 09/19/13 1451 06/30/13 1156 TROPONINT -- -- CK -- -- PROBNP 104 342* Endocrine: Recent Labs Basename 06/30/13 1156 TSH 1.23 CORTISOL -- Microbiology: U/A + for many bacteria, urine culture (P) Diagnostic Studies: None Assessment/Plan: This is a 18 y/o at 36 weeks gestation with PMHx of dilated cardiomyopathy with decline in LVEF and worsening heart failure symptoms who presents for induction of labor in light of CHF. She willbe admitted to the cardiology service with OBGYN following. Details of plan to follow: CHF: - Lopressor 12.5 BID - Continue to monitor for symptoms of CHF exacerbation - Transfer to CCU bed when ready for induction : -OBGYN on board, we will follow their recs. - Timeline of induction based on availability of ICU beds. FEN/PPX: -DVT: Ambulating -FEN/Diet: Regular diet replace K/Mg for goal 06/13 -Access: PIV -Code Status: Full code -DISPO: pending labor Jayde Humphries PGY-1 Internal Medicine S1M1 Team Pager #[phone] 10/05/2013 Attending Addendum: The patient was seen and examined in conjunction with the resident on rounds. My history, physical exam findings, assessment, and plan are reflected in that note, except as noted below. Transfer to [facility] today. Induction and monitoring per OB. optical lab technician is alerted and ready if need for advance cardiac support. Mare Smith MD, [facility], [facility] Attending Overhead Crane Truck Loader Pager [phone] * Grace Reyna MD - 10/05/2013 7:23 AM EDT Obstetrical Antepartum Progress Note Mary Porras is a 18 y.o. female at 36w4d gestation, ROHINI 10/29/2013 by 14 week US admittedfor induction of labor for worsening dilated cardiomyopathy. HD#2. Active Problems: Active Hospital Problems Diagnosis ??? High risk teen With known cardiomyopathy ??? Cardiomyopathy 1. Nonischemic dilated cardiomyopathy Presented [...] Est PAS 15. B-sunitha initiated 06/30/13 Resolved Hospital Problems Diagnosis Date Resolved No resolved problems to display. 24 Hour Events: Admitted to intermediate CCU Subjective: Mary feels well today. She continues to have stable shortness of breath and orthopnea. Denies chest pain, palpitations, coughing, wheezing, paroxysmal nocturnal dyspnea, contractions or cramping. Review of Systems Obstetric Review of Systems Movement: normal Contractions: none Leaking: none Bleeding; none Preeclampsia signs and symptoms: none Physical Exam Gen: Sitting in bed, NAD CV: Normal rate, RR, nl S1 and S2, no m/r/g Resp: CTAB, no w/c Abd: Soft, nontender, nondistended. Prominent stria Uterus: non-tender Cervix Exam: Deferred; previously long/cl/high, firm, posterior Heart Rate Interpretation: NST reactive 10/04/2013 Most Recent Ultrasound Date: 10/04/2013 GA at US: 36w3d Presentation:Vertex EFW: 2984g (71%ile) AFV: MVP 5.74cm Placenta Location: Posterior TTE 10/04/2013: 1. Technically difficult study. 2. The left ventricle is moderately dilated (ROHINI 6 cm). Left ventricular wall thickness is normal. The apex appears to have prominent trabeculations. 3. Global left ventricular systolic function is moderately reduced. Global peak longitudinal strainis -9% and the quantitative left ventricular ejection fraction by biplane Higginbotham's method is 35%, with a visual estimate of 40%. There is diffuse hypokinesis present with sparing of the basal lateral wall segments. Doppler assessment is consistent with elevated left sided filling pressure (based on E/A of 3.3 and DT of 144ms). 4. The right ventricle is mildly dilated. Right ventricular global systolic function is probably normal. Pulmonary artery hypertension could not be assessed due to inadequate tricuspid regurgitation jet. 5. The left atrium is mildly dilated by volume index of 32 ml/m2. The right atrium is normal in size. 6. There is no hemodynamically significant valve disease. 7. See remainder of report for additional findings. Compared to the TTE performed 08/02/13, there isslightly better visualization of the LV; global LV systolic function has not significantly changed;and there is evidence to suggest that LV filling pressure has increased. GBS unknown; pending Assessment & Plan: 18 y.o. female at 36w4d gestational age, HD#2 hospitalized for induction of labor for worsening dilated cardiomyopathy. Awaiting placement in cardiac ICU for initiation of induction. -- Cervix unripe. Plan for early epidural, passive descent, and assisted vaginal delivery. -- Avoid methergine. -- Management of cardiomyopathy as per Cardiology. -- Will follow GC/chlamydia, GBS culture. -- Will consent for delivery. Signed: MARY BETH OLIVER MD, PGY3 10/05/2013 I have seen and examined the patient, providing smith components as outlined below. I have reviewed the resident???s above note; my evaluation of the patient is below: 18 yo at 36 4/7 weeks cardiomyopathy for IOL. FM felt, no LOF, no bleeding or robbin. Still has cardiac symptoms at rest. BP 119/67 Pulse 106 Temp 36.9 ??C (98.4 ??F) (Oral) Resp 23 Ht 174 cm (5' 8.5) Wt 108.4 kg (238 lb 15.7 oz) BMI 35.80 kg/m2 SpO2 98% Abdomen soft, NT, garvid I/R 36 4/7 weeks cardiomyopathy for IOL status reassuring Will start ripening as soon as in CVCC Anesthesia aware of patient Plan early regional anesthesia and assisted second stage * Isaiah Hernandez MD - 10/05/2013 12:58 AM EDT 10/04/13 0057 Nonstress Test, Fetus A HR (beats/min) 140 Variability moderate (amplitude range 6 to 25 bpm) Accelerations present Decelerations none Nonstress Test Interpretation Reactive, >32 weeks: two 15 bpm accelerations lasting 15 seconds Overall Impression Reassuring for gestational age Comments irregular contractions NST Times NST Start Time 2125 NST Stop Time 215 I personally have reviewed the heart rate tracing. It is reassuring and reactive. ISAIAH HERNANDEZ MD * Asmita Ellis RN - 10/04/2013 10:03 PM EDT Pt is on the ICCU (4 east). Met pt to complete an NST and collect a GBS culture. Pt denies crampingor contractions, vaginal bleeding, or leaking of fluid. Pt states she has good movement. NST was completed and noted irregular contractions via TOCO. Pt denied feeling these contractions. documented in this encounter H&P Notes * Mare Smith MD - 10/04/2013 4:47 PM EDT Inpatient Cardiology- Admission Note Patient Name: Mary Porras Patient Age: 18 y.o. Admit date: 10/04/2013 Attending Physician: Mare Smith MD Problem List: Dilated cardiomyopathy, PCP: DAVID ALDRICH MD History of Present Illness (obtained from patient and eDH chart review): Mary Porras is a 18 y.o. year old female who is at 36 weeks EDC 10/29/2013 by 14 week ultrasound. She has a PMHx of dilated caradiomyopathy that presented at 4 months of age that was ascribed to an enteroviral infection. She required lasix, captopril, digoxin and coumadin until age 8 years. She has not been on medications since age 8 years as her cardiac performance improved. She had nophysical restrictions, in fact she was able to play basketball in the 8th grade and was able to keep up with her friends. No history of arrhythmias or syncope. In light of her CHF, she was told never to get . So, she became and was followed by Dr. Leon Hoang in [place]. It seems as though she was fairly well-compensated for the majority of her , until the last several weeks. Per notes she reports recent chest pain and fluttering heart related to stressors in school. The edema started to get worse on Wednesday. She denies PND, swelling, or orthopnea. She can sleep lying flat. She can climb stairs but is finding this more difficult during school and classroom changes. She endorses feeling lightheaded. She also had an episode of 10/10 cramping on Wednesday and saw blood when she wiped. The pain resolved when she went to the bathroom. She was referred to [facility] with [facility] at the request of Dr. Hoang for evaluation of persistent maternal cardiac dysfunction. She is here for induction of labor in the CCU, admitted from Dr. Gallegos's clinic. Review of Systems (positives bold/underlined): Constitutional: Endorses appetite change, fatigue, Denies fevers, chills, sweats HEENT: Denies visual changes, dysphagia, odynophagia,hearing problems. Respiratory: Denies cough, wheeze, shortness of breath. CV: Endorses rare CP, endorses CAMPUZANO and leg swelling,, Denies PND, orthopnea, palpitations, calf cramping GI: Denies heartburn, abdominal pain, N/V, diarrhea, constipation, blood in stool, melena. Genitourinary: Denies dysuria, urgency, frequency Skin:Denies rash. Muskuloskeletal: Denies arthralgia, myalgia. Neurological: Denies headaches, LH, tingling, numbness, weakness, endorses dizziness Hematological: Denies adenopathy, easy bruising. Past Medical and Surgical History: Past Medical History Diagnosis Date ??? 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 Central venous catheter Prior To Admission Medications: Prescriptions prior to admission Medication Sig Dispense Refill ??? metoprolol succinate (TOPROL XL) 25 mg 24 hr tablet Take 1 tablet by mouth daily. 90 tablet 3 ??? pediatric multivitamin with iron chewable tablet Take 1 tablet by mouth daily. Allergies: No Known Allergies Family History: No early CAD hx Social History and Habits: History Social History ??? Marital Status: Single Spouse Name: N/A Number of Children: N/A ??? Years of Education: N/A Occupational History ??? Not on file. Social History Main Topics ??? Smoking status: Never Smoker ??? Smokeless tobacco: Not on file ??? Alcohol Use: Not on file ??? Drug Use: Not on file ??? Sexually Active: Yes -- Male partner(s) Other Topics Concern ??? Not on file Social History Narrative ??? No narrative on file Physical Exam: Last Set of Vitals and range of vitals over past 24 hours: Last value Range last 24 hrs Temperature Temp: 36.5 ??C (97.7 ??F) Temp: [36.5 ??C (97.7 ??F)] Heart Rate Heart Rate: 116 Heart Rate: [110-116] Blood Pressure BP: 118/57 mmHg BP: (110-118)/(57-74) Respiratory Rate Resp: 18 Resp: [18] SpO2 SpO2: 97 % SpO2: [97 %] Gen: Young woman in NAD breathing comfortably on room air. HEENT: EOMI, Oropharynx clear, moist mucus membranes, neck supple, no carotid bruits, JVP within normal limits, equal 2+ carotids CV: Reg rhythm, slightly tachycardic in low 100s. No murmurs/rubs/gallops; equal distal pulses; no carotid/renal/inguinal bruits Pulm: Normal respiratory effort, speaking normally, clear to auscultation bilaterally, no rales/rhonchi/wheezes Thorax: no TTP, no tenderness w/ AP or lateral wall compression Abd: Ext: equal coloration, no pedal edema, 2+ radial/DP pulses, equal warmth, no hematoma in groin Skin: Warm, dry, no rash/livedo Neuro: -alert, appropriate, oriented -sensation to light touch equal/symmetric U/L limbs Laboratory (Last 24 Hours): Pending Other Studies: EKG: Sinus tach Echo:1. Technically difficult study. 2. The left ventricle is moderately dilated (ROHINI 6 cm). Left ventricular wall thickness is normal. The apex appears to have prominent trabeculations. 3. Global left ventricular systolic function is moderately reduced. Global peak longitudinal strain is -9% and the quantitative left ventricular ejection fraction by biplane Higginbotham's method is 35%, with a visual estimate of 40%. There is diffuse hypokinesis present with sparing of the basal lateral wall segments. Doppler assessment is consistent with elevated left sided filling pressure (based on E/A of 3.3 and DT of 144ms). 4. The right ventricle is mildly dilated. Right ventricular global systolic function is probably normal. Pulmonary artery hypertension could not be assessed due to inadequate tricuspid regurgitation jet. 5. The left atrium is mildly dilated by volume index of 32 ml/m2. The right atrium is normal in size. 6. There is no hemodynamically significant valve disease. 7. See remainder of report for additional findings. Compared to the TTE performed 08/02/13, there is slightly better visualization of the LV; global LV systolic function has not significantly changed; and there is evidence to suggest that LV filling pressure has increased. Assessment/Plan This is a 18 y/o at 36 weeks gestation with PMHx of dilated cardiomyopathy with decline in LVEF and worsening heart failure symptoms who presents for induction of labor in light of CHF. She willbe admitted to the cardiology service with OBGYN following. Details of plan to follow: CHF: - Lopressor 12.5 BID - Continue to monitor for symptoms of CHF exacerbation - Transfer to CCU bed when ready for induction : -OBGYN on board, we will follow their recs FEN/PPX: -DVT: Ambulating -FEN/Diet: Regular diet replace K/Mg for goal 06/13 -Access: PIV -Code Status: Full code -DISPO: pending labor JAYDE HUMPHRIES MD PGY-1 Internal Medicine S1 Cardiology Pager #[phone] 10/04/2013 Attending Addendum: The patient was seen and examined in conjunction with the resident on rounds. My history, physical exam findings, assessment, and plan are reflected in that note, except as noted below. This 18-year-old woman is admitted at 36 weeks for a planned induction. She has a long-standing history of an underlying cardiomyopathy which has been idiopathic since her childhood. She's not had significant functional limitations and has tolerated her thus far without significant heart failure symptoms. She's been started on a beta sunitha and has tolerated this reasonably well. Because of the high risk nature of her cardiomyopathy and a hemodynamic and fluid shifts around the time of delivery, she is being admitted for planned induction and delivery. She'll need to be transferred to the Cardiovascular critical Care unit for close monitoring and availability of invasivehemodynamic support in the event of collapse. The plan was reviewed with her primary mysql database administrator, Dr. Gallegos and the obstetrical service. Transferred to [facility] tomorrow for induction Mare Smith MD, [facility], [facility] Attending Overhead Crane Truck Loader Pager [phone] documented in this encounter Procedure Notes * Provider, Lindsey - 10/13/2013 8:24 AM EDTAssociated Order(s): SCAN DOC: REPTILE KEEPER * Teodoro Neff RN - 10/07/2013 3:12 PM EDTAssociated Order(s): PLACE PICC LINE: CONTACT VASCULAR ACCESS PICC/Midline Insertion Procedure Note Indications: Access This insertion was not to replace a [...] to the planned procedure. Hand Hygiene: The tenant relations coordinator did perform hand hygiene prior to line insertion. Catheter type: PICC Lot number: [id number] Procedure Technique: Skin was prepped with chlorhexidine. [...] Details: Order received for catheter placement. A 4 Fr. single lumen Bard Power catheter was placed into theleft basilic vein over a 0.018 inch guidewire using modified seldinger technique and fluoroscopy. Arm circumference was 31 cm at 2 cm above the insertion site. Final catheter length (with trimming): 41 cm Internal: 41 cm External: 0 cm Tip in SVC per DR MENON. The line was not placed over a guidewire. 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 5 mls of normal saline infused free flowing to gravity via PICC after insertion. Sterile dressing applied: Tegaderm and Biopatch. Findings: The patient did tolerate the procedure well. No Complications. Procedure Comments: UNSUCCESSFUL ATTEMPTS ON RIGHT ARM - ONE BASILIC, ONE CEPHALIC. EACH TIME, WIRE WOULD NOT ADVANCE. LEFT BASILIC ACCESSED AND WIRE ADVANCED SUCCESSFULLY. TEODORO NEFF RN 10/07/2013 documented in this encounter Miscellaneous Notes * Miscellaneous - Provider, Scanning - 10/13/2013 8:24 AM EDT * Miscellaneous - Provider, Scanning - 10/13/2013 8:24 AM EDT * Miscellaneous - Provider, Scanning - 10/13/2013 8:24 AM EDT * Plan of Care - Holly Love RN - 10/12/2013 4:10 PM EDT Problem: Health Knowledge, Opportunity for Enhanced (Adult, NICU, , Obstetrics, Pediatric) Goal: Knowledgeable about Health Subject/Topic Patient will demonstrate the desired outcomes. Patient Guidelines for Self-Care after PICC (Peripherally Inserted Central Catheter) Removal Your PICC was removed on at An antibiotic ointment was applied to the insertion site (where the PICC went into your skin). Betadine ointment was used (a dark reddish brown color, and should not be confused with blood) Bacitracin ointment was used. (a clear ointment). The nurse applied gauze and a transparent ( see-through) dressing over the insertion site. To help [...] from the insertion site ( including bleeding). Remember the Betadine antibiotic ointment, if used, was to protect your skin when the PICC was removed, can look like blood! *Redness, warmth, pain, swelling, or a pink/red streak going up your arm *A knot at the insertion site or anywhere in the arm *If bleeding should occur, hold firm pressure for 3-5 minutes. Do not remove the dressing that the nurse put on when the PICC was removed.. If needed, apply another dressing over the first dressing. If bleeding does not stop, call or seek medical attention. Patient Guidelines for Self-Care after PICC (Peripherally Inserted Central Catheter) Removal Your PICC was removed on at An antibiotic ointment was applied to the insertion site (where the PICC went into your skin). Betadine ointment was used (a dark reddish brown color, and should not be confused with blood) Bacitracin ointment was used. (a clear ointment). The nurse applied gauze and a transparent ( see-through) dressing over the insertion site. To help [...] from the insertion site ( including bleeding). Remember the Betadine antibiotic ointment, if used, was to protect your skin when the PICC was removed, can look like blood! *Redness, warmth, pain, swelling, or a pink/red streak going up your arm *A knot at the insertion site or anywhere in the arm *If bleeding should occur, hold firm pressure for 3-5 minutes. Do not remove the dressing that the nurse put on when the PICC was removed.. If needed, apply another dressing over the first dressing. If bleeding does not stop, call or seek medical attention. Patient Guidelines for Self-Care after PICC (Peripherally Inserted Central Catheter) Removal Your PICC was removed on 10/12 at 4pm An antibiotic ointment was applied to the insertion site (where the PICC went into your skin). ___x___Betadine ointment was used (a dark reddish brown color, and should not be confused with blood) Bacitracin ointment was used. (a clear ointment). The nurse applied gauze and a transparent ( see-through) dressing over the insertion site. To help [...] from the insertion site ( including bleeding). Remember the Betadine antibiotic ointment, if used, was to protect your skin when the PICC was removed, can look like blood! *Redness, warmth, pain, swelling, or a pink/red streak going up your arm *A knot at the insertion site or anywhere in the arm *If bleeding should occur, hold firm pressure for 3-5 minutes. Do not remove the dressing that the nurse put on when the PICC was removed.. If needed, apply another dressing over the first dressing. If bleeding does not stop, call or seek medical attention. * Care Management - Marita Sprague MD - 10/10/2013 2:12 PM EDT I called Dr. Hoang with the delivery information. Marita Sprague MD * L&D Delivery Note - Grace Juarez MD - 10/09/2013 8:41 PM EDT Delivery Summary Mary Porras is a 18 y.o. at 37wks with a long-standing history of dilated cardiomyopathy. She underwent an IOL for worsening CHF. She received cervical ripening agents with good effect then transitioned to pitocin. An early epidural was placed at 3-4cm dilation. While on pitocin, the heart rate tracing was category 2 with variable and what appeared like late decelerations, though it was difficult to initially picker tender contractions on toco due to the patient's body habitus. The patient was resuscitated with O2 and position change. Fluid resuscitation was given cautiously dueto the patient's tenuous cardiac status. The tracing recovered. On repeat exam, a tense amniotic sac was noted. The patient was transferred to the OR for amniotomy, which was significant for light meconium. The pitocin was restarted. Shortly thereafter, repetitive late decelerations were noted withminimal variability. The decision was made to proceed with a primary section for NRFHRT. A low-transverse section was performed. EBL 1200cc. A live female infant was delivered. The surgery was complicated by head entrapment. APGARS were 0, 6 and 7 at one, five, and ten minutes respectively, and a weight of 3010g. Please see the operative note for more details. The was handed to awaiting NICU staff. Cord gases were the following: Results for CHRISTIANO PORRAS ( ) as of 10/09/2013 20:53 Ref. Range 10/08/2013 04:25 pH Cord Odin No range found 7.18 pCO2 Cord Odin No range found 72 pO2 Cord Odin No range found 18 BE Cord Odin No range found -2.4 O2HB Cord Odin No range found 8.4 Dr. Marita Sprague was present and participated in all aspects of this delivery without conflicting clinical responsibilities. GRACE JUAREZ MD PGY4 10/12/2013 Information for the patient's : Christiano Porras [[id number]] DELIVERY SUMMARY FOR Christiano Porras (please note there is a separate summary for each fetus) LABOR EVENTS Christiano Porras Labor Onset Type: section without labor Labor Onset Date: Induction: Indications for Induction of Labor: Induction Methods: Augmentation: AROM;Oxytocin Complications: Rupture Date: 10/08/2013 Rupture Time: 3:20 AM Rupture Type: Artificial rupture Fluid Color: meconium present DELIVERY EVENTS Christiano Porras Delivery Type: Delivery Type (Specific):Lower Segment Transverse [[id number]] Presentation/Position Christiano Porras : Breech Failed Operative Delivery: Anesthesia Method :Epidural [254] Analgesic: Episiotomy: Lacerations: Comments: Repair Suture: Repair # of Packets: Blood Loss (ml): 1200 Placenta: Delivered: 10/08/2013 4:23 AM Removal: Expressed Appearance: Intact Comment: Maternal Procedures with Delivery: Attempted ?: no INFORMATION Christiano Porras 10/08/2013 4:21 AM by Lower Segment Transverse Sex: male Gestational Age: 37w0d Measurements: Weight: 6 lb 10.2 oz (3010 g) Height: 18.9 Head Circumference: 34.5 cm ChestCircumference: Observed Anomalies: Delivery Clinician: Marita Sprague Other Providers: Resident Delivery Nurse Charge Nurse Certified Novell Administrator Scrub Nurse Scrub Nurse Registered Nurse Registered Nurse Charge Nurse Grace ORDOÑEZ Staff Present: yes Delivery Location: OR Living?: Yes APGARS One Minute Five Minutes Ten Minutes Skin Color: 0 1 1 Heart Rate: 0 2 2 Grimace: 0 1 1 Muscle Tone: 0 1 1 Breathin 1 2 Totals: 0 6 7 INTERVENTIONS Christiano Porras Resuscitation:PPV Suctioning Intubation Suctioning Method: PPV [4];Suctioning [2];Intubation [5] Vocal Cords Visualized:yes Meconium: meconium below vocal cords Resuscitation Comment: Fishtail Medications: Meds Given: vitamin K erythromycin Naloxone Given?: no Amount (mg): Injection Site: Cord Information: 3 Vessels Disposition of Cord Blood: Blood Gases Sent? Yes Cord Insertion: normalCord Complications: None [1] Cord Comment: LABOR LENGTH 1st Stage (hrs/min): 2nd Stage (hrs/min): 3rd Stage (hrs/min);0.00 2.00 ADDITIONAL DELIVERY DETAILS DELIVERY Major Indications-: non reassuring status Contributing Factors-: Delivery Comment: Uterine Scar Status if Prior Section: * Discharge Summary - Yue Wyatt MD - 10/09/2013 6:34 AM EDT Discharge Summary Patient Name: Mary Porras Patient Age: 18 y.o. Language: Slovak Race: White Ethnicity: Not nor Admit date: 10/04/2013 Discharge date and time: 10/12/2013 Attending Physician: Alexandr Castaneda MD Discharge Physician: Mary Beth Oliver (OB), Yue Wyatt (Cardiology) Care Provider: Dr. Leon Hoang [place], [place] Follow-up Recommendations for Providers: -Follow up 7-10 days for staple removal in clinic with home critical care paramedic -Routine 6 week visit with home critical care paramedic -Follow up with Dr. Gallegos (Cardiology) as scheduled below -Please follow patient's weight and respiratory status closely. She may require lasix if she is fluid overloaded. -She was started on enalapril BID (safer than lisinopril for breast feeding). When she is done , enalapril could be switched to lisinopril once daily for ease of administration. -Metoprolol was up-titrated for sinus tachycardia. Please follow heart rate and blood pressure withthis increase. Inpatient Provider Contact Information: [facility] [place] [facility] Department, Cardiology Department Discharge Diagnoses (Hospital Problems) and Secondary Diagnoses (Chronic Problems) Active Hospital Problems Diagnosis ??? High risk teen ??? Sinus tachycardia ??? Cardiomyopathy Resolved Hospital Problems Diagnosis Date Resolved No resolved problems to display. There are no active non-hospital problems to display for this patient. Operations/Major Procedures: Primary low transverse section with low transverse hysterotomy and T extension of fascial/skin incision Indication for Admission: induction of labor for worsening cardiomyopathy History of Presentation: (per OB admit note cut and paste) Mary Porras is a 18 y.o. female who is at 36w3d weeks gestation by [facility]/S being admitted for induction of labor for maternal medical condition (worsening cardiomyopathy with EF 35%). 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 She required lasix, captopril, digoxin and coumadin until 8 years of age. She has not been on medications since age 8 years as her cardiac performance improved. She had no physical restrictions, and participated in sports in 7th grade; she has not since that time but feels that she was not limited physically in any way. No history of arrhythmias or syncope. In light of her CHF, she was told never to get . She became following the expulsion of a Paraguard IUD, which she was unaware occurred. During her , she did not notice any issues until re cently, at which time she became unable to climb a flight of stairs without shortness of breath. She has had intermittent, mild KATHERINE, and occasionally has orthopnea. She denies chest pain, palpitations, coughing, wheezing, paroxysmal nocturnal dyspnea, contractions or cramping. She has also had 2 episodes of bleeding 4 days ago when urinating, during which she noticed blood on tissue paper after wiping and is unsure if the source was urethral or vaginal. She feels that when she holds her urine for long periods of time she has pain, and that this may have preceded these 2 episodes. Her has been complicated by: - CHF (TTE 10/04/2013 demonstrated EF of 35-40%; previous TTE in 07/2013 demonstrated EF of 50%) - Teen Review of Systems Obstetric Review of Systems Total Weight Gain this Not found. Movement: normal Contractions: none Leaking: None Bleeding; none now Preeclampsia signs and symptoms: None (per Cardiology admit note cut and paste) Mary Porras is a 18 y.o. year old female who is at 36 weeks EDC 10/29/2013 by 14 week ultrasound. She has a PMHx of dilated caradiomyopathy that presented at 4 months of age that was ascribed to an enteroviral infection. She required lasix, captopril, digoxin and coumadin until age 8 years. She has not been on medications since age 8 years as her cardiac performance improved. She had nophysical restrictions, in fact she was able to play basketball in the 8th grade and was able to keep up with her friends. No history of arrhythmias or syncope. In light of her CHF, she was told never to get . So, she became and was followed by Dr. Leon Hoang in [place]. It seems as though she was fairly well-compensated for the majority of her , until the last several weeks. Per notes she reports recent chest pain and fluttering heart related to stressors in school. The edema started to get worse on Wednesday. She denies PND, swelling, or orthopnea. She can sleep lying flat. She can climb stairs but is finding this more difficult during school and classroom changes. She endorses feeling lightheaded. She also had an episode of 10/10 cramping on Wednesday and saw blood when she wiped. The pain resolved when she went to the bathroom. She was referred to Grace Whitlock with M at the request of Dr. Hoang for evaluation of persistent maternal cardiac dysfunction. She is here for induction of labor in the CCU, admitted from Dr. Gallegos's clinic. Hospital Course Including Delivery and Events # , induction of labor, and delivery Patient was admitted to the Cardiology service as below. She was transferred to [facility] on HD#2 for initiation of induction of labor for worsening dilated cardiomyopathy in late . She underwent serial cervical ripening followed by Pitocin and AROM for induction of labor. She received an early epidural for management of pain. After AROM for meconium stained fluid, FHT were category II and delivery was indicated for nonreassuring status. A low transverse section was performed with EBL 1200cc. Procedure was complicated by head entrapment resulting in necessity of vertical midline extension of the skin and fascial incisions for delivery. Procedure resulted in delivery of a viable male , Apgars 0/6/7, weight 3010g. Patient recovered well postoperatively with pain adequately controlled on po pain medications. She was ambulating and urinating withoutdifficulty, tolerating a regular diet, and passing flatus. She will follow up for stapleremoval early next week with her primary critical care paramedic, as well as routine 6 week follow up with same. Patient was considering pumping but was primarily formula feeding. Initial plan for contraception was combined OCPs with condoms; she is considering Mirena IUD insertion. # Cardiomyopathy Mary was admitted to the Cardiology service because of her history of viral cardiomyopathy at age 4 months with residual low EF. A repeat TTE on 10/04/2013 showed a reduced EF from 50% in 07/2012 to35-40% with global hypokinesis. She was monitored closely for fluid status and any clinical signs of heart failure. She never complained of any symptoms of heart failure or chest pain and was ambulating without SOB within days after her . She did have persistent sinus tachycardia after in the low-100's to 1-teens, and once up to 140's during ambulation. The etiology of her sinus tachycardia was felt to be likely a combination of baseline higher HR (likely as compensation for her cardiomyopathy), fluid shifts after delivery, anemia and pain. She auto-diuresed well after delivery. Her home metoprolol was increased from succinate 25mg daily to tartrate 12.5 mg q6, then to 25mg q6, after which HR was better controlled, in 80-90's sinus. She tolerated the increased dose well and BPs were 100-1-teens/60-70's. Enalapril was started as an ZEUS inhibitor is indicated for treatment of her cardiomyopathy and enalapril is safer during per our Pharmacists. However, as enalapril is twice daily dosing, switching to lisinopril with once daily dosing might be warranted to ease of administration and to increase likelihood of compliance once she has stopped breast feeding. Aldactone is probably safe for , but given an EF >30% and no symptoms of heart failure, this was not started either. She will follow up with her primary Overhead Crane Truck Loader Dannielle Gallegos. Delivery Information Information for the patient's : Chiquita, Baby Boy [[id number]] INFORMATION Christiano Porras 10/08/2013 4:21 AM by Lower Segment Transverse Sex: male Gestational Age: 37w0d Fishtail Measurements: Weight: 6 lb 10.2 oz (3010 g) APGARS One Minute Five Minutes Ten Minutes Totals: 0 6 7 EBL: [id number] Vital signs at Discharge: BP: 118/67 mmHg, Heart Rate: 95 , Temp: 37 ??C (98.6 ??F), Resp: 18 , BMI (Calculated): 35.9 Height: 174 cm (5' 8.5) (10/04/13 1625) Weight - Scale: 105.5 kg (232 lb 9.4 oz) (10/12/13 1014) Functional and Cognitive status: Ambulating without shortness of breath or chest pain. Functional status at baseline. Important Studies and Lab Data: Labs: Recent Labs Basename 10/10/13 0810/09/1333410/08/13 0700 WBC 13.5* 12.9 18.0* HGB 9.1* 9.8* 10.3* HCT 29.6* 31.1* 33.1* PLATELET 227 224 264 Recent Labs Basename 10/10/13 0805 10/09/1333410/08/13 0700 NA 139 133* 139 K 4.2 4.0 4.1 CL 103 100 106 CO2 25 25 21* BUN 8* 9* 9* CREATININE 0.46 0.63 0.57 Recent Labs Basename 10/10/13 0805 10/09/1333410/08/13 0700 CALCIUM 8.9 8.8 8.6 MAGNESIUM 0.69 -- -- PHOS -- -- -- Recent Labs Basename 06/30/13 1156 TSH 1.23 Studies: TTE 10/04/2013: 1. Technically difficult study. 2. The left ventricle is moderately dilated (ROHINI 6 cm). Left ventricular wall thickness is normal. The apex appears to have prominent trabeculations. 3. Global left ventricular systolic function is moderately reduced. Global peak longitudinal strainis -9% and the quantitative left ventricular ejection fraction by biplane Higginbotham's method is 35%, with a visual estimate of 40%. There is diffuse hypokinesis present with sparing of the basal lateral wall segments. Doppler assessment is consistent with elevated left sided filling pressure (based on E/A of 3.3 and DT of 144ms). 4. The right ventricle is mildly dilated. Right ventricular global systolic function is probably normal. Pulmonary artery hypertension could not be assessed due to inadequate tricuspid regurgitation jet. 5. The left atrium is mildly dilated by volume index of 32 ml/m2. The right atrium is normal in size. 6. There is no hemodynamically significant valve disease. 7. See remainder of report for additional findings. Compared to the TTE performed 08/02/13, there isslightly better visualization of the LV; global LV systolic function has not significantly changed; and there is evidence to suggest that LVfilling pressure has increased. Pending Studies and Lab Data: Final placental pathology Discharge Conditions/Prognosis: stable Discharge to: Home Contraceptive Plans: IUD Allergies at Discharge: No Known Allergies Immunizations Given this Hospitalization: There is no immunization history for the selected administration types on file for this patient. Discharge Medications: Your Medications As of 10/12/2013 4:17 PM New Medications Dose Details enalapril 2.5 mg tablet Commonly known as: VASOTEC Take 1 tablet by mouth 2 times daily. 2.5 mg Quantity: 60 tablet Refills: 11 oxyCODONE-acetaminophen 5-325 mg per tablet Commonly known as: PERCOCET Take 1-2 tablets by mouth every 4 hours as needed for Pain. 1-2 tablet Quantity: 30 tablet Refills: 0 Continued medications with new dosing Dose Details metoprolol succinate 100 mg XL tablet Commonly known as: TOPROL-XL Take 1 tablet by mouth daily. What changed: - medication strength - dose 100 mg Quantity: 30 tablet Refills: 12 Continued medications, unchanged Dose Details pediatric multivitamin with iron chewable tablet Take 1 tablet by mouth daily. 1 tablet Refills: 0 Smoking Status at Discharge: History Smoking status ??? Never Smoker Smokeless tobacco ??? Not on file Instructions Given to Patient at Discharge: Patient Instructions Specific instructions related to your condition: 1) Please keep track of your body weight and breathing. If your weight is increasing, you are breathing heavily during exertion, and/or your legs are swelling, you may need a medication to help your body get rid of extra fluid because of your heart condition. If you have any of these symptoms, please call Dr. Gallegos right away. 2) Please take enalapril 2.5 mg (1 tablet) twice a day, and the increased dose of metoprolol XL (100mg) once daily General Instructions Nursing Inpatient Progress C - Section Follow-up Follow-ups: 6 week follow up appointment will be scheduled for you and your appointment card will come in the mail. If you do not receive your appointment card within 4 weeks please call your OB provider. Maternal Discharge Instructions Rest: Although it may seem impossible to get enough rest, simple planning will help. Try to get at least one four hour block of uninterrupted sleep in 24 hours; then plan to rest, and/or sleep when your baby does. Limiting visitors also helps. Fathers and other family members can help by doing housework, caring for other children and/or helping limit visitors. Activity: After delivery, it is safe to climb stairs at home. Do not lift anything heavierthan your baby for two weeks. Do not drive for two weeks or while taking pain medicine that contains a narcotic as your reaction time may be decreased. Nutrition: Your diet following the of your baby is as important as it was before the baby wasborn. Drink a minimum of 6-8 glasses a day. Do not attempt to lose weight during the first six weeks. Continue taking your vitamins until they are gone. Lochia: (Flow) Your flow should be no heavier than a normal period. It will be bright red for 2-3 days and then pinkish and finally colorless. If your flow becomes bright red again, decrease your activity. Do not use tampons until your care provider advises you it is OK. Incision: Wash the incision with soap and water and pat dry. It is normal to have clear or pinkish fluid seep from the incision. Gauze pads or sanitary napkins may help to keep the incision dry if itis located in a fold under your tummy. If the incision has more redness, yellow drainage, or becomes more painful, contact the obstetrics clinic. Breast Care for Formula feeding mothers: Wear a well fitting bra to support your breasts. Ice packsto your breasts and Tylenol or Ibuprofen may be used to relieve discomfort from engorgement. Avoid stimulating your breasts: Do not let warm water from the shower fall on them; avoid holding your baby near your breasts until your milk begins to decrease and engorgement is relieved. Breast feeding mothers: Practice careful positioning and frequent feeding as demonstrated in the hospital. The printed information in your packet covers this in detail. Call your doctor or gas distribution plant operator for: Fever more than 100.5 Heavy bleeding that saturates a pad an hour Clots larger than a plum Increased abdominal pain, nausea, shaking chills Increased redness or soreness over your incision Breast with hot, hard, tender areas on the breast plus flu-like symptom depression occurs in a large percentage of women. We encourage you to contact your provider or a member of the nursing staff if you are feeling so overwhelmed that you are unable to care for yourself or your baby. Keep your follow up appointment. You may call the [facility] at any time for guidance or for answers to questions that come up prior to you follow up appointment. Your [facility] Provider can be reached during office hours at [facility] Follow-up Clinic AFTER OFFICE HOURS for the critical care paramedic or gas distribution plant operator web content manager Provider electronic signature confirms that discharge instructions were reviewed with the patient. A copy was printed and given to the patient. Future Appointments and Orders Future Appointments: Provider: Department: Dept Phone: Center: 11/02/2013 2:30 PM Dannielle Gallegos MD Cardiology [phone] [facility] Future Orders Please Complete By Expires Referral to Home Health - at DISCHARGE [[id number] CPT(R)] Process Instructions: Scheduling Instructions: Comments: Mary Porras Being discharged to own home: [address] [facility] [id number] [facility] [address]* [phone] (home) No relevant phone numbers on file. HOME HEALTH AGENCY: [facility]. PHONE: [phone] FAX: [phone] RN orders: 1. Assess postoperative recovery. Assess cardio-respiratory status, intake and output, incisional healing, ambulation, pain management, lovenox administration, medication management. 2. Assess breast feeding/pumping for 3. Assess care management, clinical status including risk for depression. 4. Provide care guidance, anticipatory guidance for maternal post period and assist with connecting to appropriate community resources. Start of care within 24-48hrs of discharge of from N. Please see mom/baby together. Please note that any additional orders needed or changes will need to be obtained from this patient's PCP: DAVID ALDRICH MD [address] [place] [id number] All A agencies which cover the area of patient's residence have been reviewed, either verbally sharan writing, and patient/family have chosen the home health care agency noted Questions: Responses: Agency name and contact information [facility] Patient location post discharge Home: [facility] What services are requested Registered Nurse Start date Responsible MD post discharge contact info Maternal Medicine at [facility] [phone] Discharge References/Attachments None * Plan of Care - Zoie Valentin RN - 10/09/2013 4:00 AM EDT Problem: Pain, Acute (Adult, Obstetrics) Intervention: Pain Management Interventions Pt utilizing DIRECTOR INDEPENDENT, although needs reminding d/t sleeping intermittently between scheduled /nursing assessments. States relief with use of DIRECTOR INDEPENDENT. * Med Student Progress Note - Chela Parker - 10/08/2013 10:16 PM EDT Gynecology - Progress Note- Post Op Check Mary Porras is an 18 y.o. woman post operative day 2 s/p c/s. Subjective: Patient states she is comfortable at rest, but notes lower abdominal pain and tenderness upon palpation. Pain is controlled on hydromorphone and epidural. She has minimal bleeding. She is not ambulating with assistance. She has SCDS on both legs. Patient saw cardiology today and reports they told her she had a little fluid in her lungs, which they are not concerned about, and that her cardiac function is doing better. She denies any chest pain, palpitations, SOB, or h/a. Physical Exam: Last Set of Vitals and range of vitals over past 24 hours: Last value Range last 24 hrs Temperature Temp: 36.8 ??C (98.2 ??F) Temp: [36.8 ??C (98.2 ??F)-37.2 ??C (99 ??F)] Heart Rate Heart Rate: 107 Heart Rate: [74-107] Blood Pressure BP: 102/59 mmHg BP: (86-123)/(42-84) Respiratory Rate Resp: 20 Resp: [13-24] SpO2 SpO2: 98 % SpO2: [92 %-100 %] Date 10/08/13 0700 - 10/09/13 0659 Shift [id number] 9839-0667 4511-4768 24 Hour Total I N T A K E [address] 1160 1880 I.V. (mL/kg/hr) 168.1 (0.2) 189 357.1 Shift Total (mL/kg) 888.1 (8.2) 1349 (12.4) 2237.1 (20.6) O U T P U T Urine (mL/kg/hr) 240 (0.3) 600 840 Shift Total (mL/kg) 240 (2.2) 600 (5.5) 840 (7.7) Weight (kg) 108.4 108.4 108.4 108.4 Physical Exam General appearance: Patient lying in bed appearing fatigued. Abdominal: Bilateral tenderness and pain to palpation in the lower abdomen at level of umbilicus and below. Abdomen soft. No guarding or rebound appreciated. Fundus not palpated due to discomfort. Laboratory (Last 24 Hours): CBC Lab Results Component Value Date WBC 18.0* 10/08/2013 Hemoglobin 10.3* 10/08/2013 Hematocrit 33.1* 10/08/2013 Platelets 264 10/08/2013 Electrolytes Lab Results Component Value Date Potassium 4.1 10/08/2013 CO2 21* 10/08/2013 Renal Lab Results Component Value Date BUN 9* 10/08/2013 Creatinine 0.57 10/08/2013 Glucose Lab Results Component Value Date Glucose Lvl 79 10/08/2013 Assessment and Plan: Mary Porras is an 18 y.o. year old woman POD #2 s/p c/s. Pain Control: -- Hydromorphone DIRECTOR INDEPENDENT and epidural Cardiac: --She is being closely monitored by cardiology. Pulmonary: -Adequate O2 sat Gastrointestinal: no nausea or vomiting. Genitourinary: keep christianson in place. Fluid/ Electrolytes: Continue to closely monitor input/output and watch for decompensation. Ambulation: Hope to have patient ambulating with assistance tomorrow. Disposition: Continue inpatient hospitalization management for post-op c/s with close cardiac monitoring for pre-existing dilated cardiomyopathy. Chela Parker 10/08/2013 RUBI TEJEDA MD * Op Note - Grace Juarez MD - 10/08/2013 8:56 PM EDT Operative Note Patient: Mary Porras : 1995 Case Date: 10/08/2013 Surgeon: Surgeon(s) and Role: * Marita Sprague MD - Primary * Grace Juarez MD - Resident-Surgeon Chief Preoperative diagnosis: nonreassuring status, latent labor Postoperative diagnosis: nonreassuring status, latent labor Procedure(s): Primary section Anesthesia: epidural Findings: liveborn male infant Complications: difficult extraction of head Fluids: 2000 cc crystalloid Estimated Blood Loss:1200 cc UOP: 550cc clear yellow urine Indications: Mary Porras is a 18 y.o. with a long-standing history of dilated cardiomyopathy. She began to decompensate several weeks prior to admission. Due to her worsening CHF, the decision was made to proceed with IOL. She received cervical ripening agents, and eventually was placed on pitocin. However, the tracing became category 2 with low-dose pitocin. Pitocin was discontinued, and the patient was appropriately resuscitated with O2 and positional change. The tracing recovered to category 1. Pitocin was restarted. After a heart rate deceleration the cervix was found to be 3 cm dilated with a tense amniotic sac. Given the tracing and the potential need for urgent cesearean section after amniotomy the decision was made to proceed to the OR for amniotomy and continued augmentation. Cardiac monitoring would be done by the anesthesiology staff in the operating room. Once in the OR and after a timeout was done to confirm patient identity and procedures, an amniotomy was performed, notable for light meconium. Pitocin was restarted, but minimal variability and repetitive subtle late decelerations were noted on 2mU/min. The decision was made to proceed with a primary section. The patient was counseled and consented prior to surgery, and this is documented in a previous encounter. Procedure: Epidural anesthesia was found to be adequate. She was placed in the dorsal supine position with a leftward tilt. A christianson was placed in the bladder. The patient was then prepped and draped in the usual sterile fashion. A Pfannenstiel skin incision was made with the scalpel and carried down to the underlying layer of fascia with the scalpel. The fascia was incised in the midline and the incision extended laterally with Ascencio scissors. The superior aspect of the fascial incision was grasped with Kostas clamps, elevated, and the underlying rectus muscles dissected off bluntly and then cut in the midline with the bovie. Attention was then turned to the inferior aspect of this incision where the rectus muscles weredissected off bluntly and in the midline with the bovie. The rectus muscles were then in the midline and the peritoneum identified and entered bluntly. The rectus muscles were dissected superiorly and inferiorly using Metzenbaum scissors. The peritoneal incision was likewise extended superiorly and inferiorly also using Metzenbaum scissors with good visualization of the bladder. The bladder blade was inserted. The vesicouterine peritoneum was identified and entered sharply with Metzenbaum scissors. The incision was extended laterally sharply and the bladder flap created digitally. The bladder blade was reinserted. The uterine incision was made with a scalpel and the incision extended laterally bluntly. The was found to be initially in vertex position. As the head was elevated out of the pelvis the fetus suddenly converted to a transverse lie then breech. The baby was delivered breech with standard maneuvers. The head became entrapped and was very difficult to deliver. The uterine incision was maximally extended. The rectus fascia was cut superiorly and inferiorly in the midline without success, and the skin incision was also extended superiorly. The head was delivered. No nuchal cord was noted. The cord was clamped and cut. The was handed to the aw aiting NICU team. Cord gases and cord blood were collected. No blood could be obtained from the umbilical artery. The placenta was expressed and noted to be intact. The uterus was exteriorized. All clots and debris were removed from the uterus. A 3cm extension on the left inferior aspect of the hysterotomy was noted, and repaired with 0-vicryl in a running, locked fashion. The hysterotomy was closed with 0-vicryl in a running, locked fashion. A second layer of the same suture was imbricated. Excellent hemostasis was noted at the incision and angles of the incision. The uterus was returned to the abdomen. The fascia was closed with 0-vicryl in a running fashion. This was also done for the transverse incision and the superior and inferior incisions. The subcutaneous tissue was irrigated then closed with 2-0 plain gut in layers. The skin was closed with glynn. The patient tolerated the procedure well. Sponge and needle counts were correct x2. The patient wasbrought to the Cardiac Care Unit in stable condition for prolonged monitoring given her history of cardiomyopathy. She required phenylephrine and dobutamine during surgery, but was weaned prior to termination of the procedure. Dr. Marita Sprague was present and participated in all aspects of this delivery without conflicting clinical responsibilities. * Brief Op Note - Marita Sprague MD - 10/08/2013 5:59 AM EDT Brief Operative Note Patient Name: Mary Porras : [id number] MR#: [id number] Case Date: 10/08/2013 Surgeon: Surgeon(s) and Role: * Marita Sprague MD - Primary * Grace Juarez MD - Resident-Surgeon Chief Preoperative diagnosis: nonreassuring status, latent labor Postoperative diagnosis: nonreassuring status, latent labor Procedure(s): @ DELIVERY Anesthesia: epidural Findings: liveborn male infant Complications: difficult extraction of head Fluids: 2000 Estimated Blood Loss:1200 Drains: bladder catheter Disposition: regional anesthesia adiminstered without incident and patient [facility] to the [facility] Condition: doing well without problems (Please see the Surgical Encounter Summary for any Implant and Specimen details pertinent to this patient.) * OR Attestation - Marita Sprague MD - 10/08/2013 5:59 AM EDT Attestation: Case Date: 10/08/2013 I was present and I participated during the entire procedure (does not need to include opening and closing). MARITA SPRAGUE MD 10/08/2013 * Plan of Care - Torsten Harden RN - 10/07/2013 11:04 PM EDT Problem: Labor (Obstetrics) Goal: Signs and symptoms of listed potential problems will be absent or manageable (reference (Labor (Obstetrics)) CPG) Pt has been comfortable with epidural. FHR has shown decelerations. Pt explained interventions for FHR improvement and she is very compliant with all interventions. * Plan of Care - Lelia Ornelas RN - 10/07/2013 6:46 PM EDT Problem: Peds General Plan of Care Goal: Plan of Care Review Outcome: Present (see interventions, notes) Plan of care reviewed throughout the day with pt, boyfriend and mother. Updated as changes to POC were made. Opportunity for questions to be asked and answered provided. * Plan of Care - Rose Michadu LPN - 10/07/2013 4:32 PM EDT Problem: Health Knowledge, Opportunity for Enhanced (Adult, NICU, , Obstetrics, Pediatric) Goal: Knowledgeable about Health Subject/Topic Patient will demonstrate the desired outcomes. Outcome: Outcome achieved Date Met: 10/07/13 Peripherally Inserted Central Catheter (PICC) Teaching Sheet Peripherally inserted central catheters ([id number]) (PICC) are used when you need IV [...] midline catheter? PICC lines are used for mcfp treatments. PICC lines may be used for up to a year. They areoften put in to give you IV medicines at home. You may need a PICC catheter because caregivers cannot use smaller veins in your body. Smaller veins may be damaged, or they may have poor blood flow. ??? Catheters are also used in case of emergency when you would need medicines or fluids very quickly. ??? The following are medicines and treatments you may get when you have a PICC line. ? Antibiotics. These are medicines to prevent infection. ? Frequent blood sample collection. ? IV medicines that would make your smaller veins sore or damaged. ? Receiving IV fluids for a long period of time. ? Pain medicine. ? Total Parenteral Nutrition: This is also called TPN. TPN is a special liquid food that goes directly into your veins. ? Blood ? Chemotherapy (Medicine for cancer) What are the benefits of having a PICC line put in? Having a PICC line may keep your arm from being stuck many times with a needle to draw blood orstart an IV (intravenous catheter) . ??? Through a PICC catheter, you may have blood taken for tests. You may also get IV fluids and medicines quickly and easily. ??? Small veins can be damaged or irritated by certain drugs or nutritional solutions. A PICC line helps to decrease vein irritation from antibiotics, IV pain drugs, or IV cancer drugs. ??? A PICC line can be left in place when you go home. If you go home with a PICC line in place, home care can be set up via the nurse Safety Admin Assistant to help you. What are possible complications of having a PICC line put in? Some possible complications are: ??? bruising, swelling, or infection in the arm with the PICC line ??? mal-positioned catheter (catheter tip in wrong place) ??? occlusion (blocked catheter) ??? mechanical phlebitis (vein irritation) and thrombosis (clot) [...] provider should be notified if these occur: ??? Redness ??? Swelling ??? Pus ??? Pain at the site Other reasons to notify your healthcare provider are: ??? Catheter becomes partially or totally removed ??? Unable to infuse medication/fluid ??? Unable to draw back blood from the [...] Administration of Cathflo, [employer] 2005 * Plan of Care - Lu Cox RN - 10/07/2013 12:30 PM EDT Problem: Health Knowledge, Opportunity for Enhanced (Adult, NICU, Fishtail, Obstetrics, Pediatric) Goal: Knowledgeable about Health Subject/Topic Patient will demonstrate the desired outcomes. Peripherally Inserted Central Catheter (PICC) Teaching Sheet Peripherally inserted central catheters ([id number]) (PICC) are used when you need IV [...] midline catheter? PICC lines are used for long term care phlebotomist treatments. PICC lines may be used for up to a year. They areoften put in to give you IV medicines at home. You may need a PICC catheter because caregivers cannot use smaller veins in your body. Smaller veins may be damaged, or they may have poor blood flow. ??? Catheters are also used in case of emergency when you would need medicines or fluids very quickly. ??? The following are medicines and treatments you may get when you have a PICC line. ? Antibiotics. These are medicines to prevent infection. ? Frequent blood sample collection. ? IV medicines that would make your smaller veins sore or damaged. ? Receiving IV fluids for a long period of time. ? Pain medicine. ? Total Parenteral Nutrition: This is also called TPN. TPN is a special liquid food that goes directly into your veins. ? Blood ? Chemotherapy (Medicine for cancer) What are the benefits of having a PICC line put in? Having a PICC line may keep your arm from being stuck many times with a needle to draw blood orstart an IV (intravenous catheter) . ??? Through a PICC catheter, you may have blood taken for tests. You may also get IV fluids and medicines quickly and easily. ??? Small veins can be damaged or irritated by certain drugs or nutritional solutions. A PICC line helps to decrease vein irritation from antibiotics, IV pain drugs, or IV cancer drugs. ??? A PICC line can be left in place when you go home. If you go home with a PICC line in place, home care can be set up via the nurse Safety Admin Assistant to help you. What are possible complications of having a PICC line put in? Some possible complications are: ??? bruising, swelling, or infection in the arm with the PICC line ??? mal-positioned catheter (catheter tip in wrong place) ??? occlusion (blocked catheter) ??? mechanical phlebitis (vein irritation) and thrombosis (clot) [...] provider should be notified if these occur: ??? Redness ??? Swelling ??? Pus ??? Pain at the site Other reasons to notify your healthcare provider are: ??? Catheter becomes partially or totally removed ??? Unable to infuse medication/fluid ??? Unable to draw back blood from the [...] Efficacy, Safety, Use, and Administration of Cathflo, [employer] 2005 * Plan of Care - Reema Deluna RN - 10/07/2013 8:02 AM EDT 0720 Bedside report received from Gi Wyatt RN. Pt sleeping on left side. No contractions seen. FHR adjusted and now recording better. Accelerations seen. Respirations easy. Color pink. Left undisturbed at present. Partner in room, sleeping near bedside. 0745 Pt awakened by DRU RN for med. Pt reports lower back discomfort and mild uterine cramping. Tocoadjusted several times, mild contraction palpated. 0750 Dr Tammie Canela in to see pt and review monitor strip. Will remove cervidil at 10 am then page the OB team. Plan will be to place an epidural when pt uncomfortable or decision made to place christianson bulb and start Pitocin. 0900 Sleeping on right side. No contractions seen. 0925 Deceleration down to 135-140 from baseline of 145 noted at 0920 lasting approx 2 min. No contraction seen in relation to this deceleration. 1000 Awakened for breakfast, tolerated eating well. Repositioned self on right side, cervidil removed without problem. OB team notified of removal. Awaiting new orders. Plan of care reviewed with pt.Pt verbalizes understanding. [place] adjusted several times to try and record any uterine activity. Palpates soft, non-tender. 1035 Frequently repositions self due to lower back discomfort and occasional cramping. Now on rightside. Warm moist heat on lower back provides some relief of discomfort. One questionable late deceleration seen with pt supine. 1110 Dr Sprague and Tamara at bedside to discuss plan of care and perform cervical exam. 1115 Medicated with Fentanyl. 1120 Cervical exam. 2-3/70/-2. Decision made to utilize Pitocin but concerns were raised due to theonly PIV access is a 22 gauge angiocath in right ventral forearm. Will speak with Cardiology to develop an alternative plan. Pt back to right side. Understands need for larger IV access for induction. 1130 Spoke with It Applications Analyst to voice need for better IV access. Will have IV team take another look instead of considering a central line at this time. It Applications Analyst also spoke with Dr Juarez regarding above. 1630 Pt had been removed from [facility] earlier in the day as no induction method being employed. IV teamunable to place a larger bore access so pt went for a PICC line placement. Now settled back into her room in the [facility] and ready to have induction with Pitocin started. Pitocin explained. Placed on EFM to obtain strip. 1646 Induction started. Pt comfortable, reports an occasional contraction. Abdomen soft. 1715 Lying on right side. Starting to rest after dose of Tylenol for c/o headache. Also was c/o back ache. Warm compress to back. Encouraged to rest. Baby active. Emotional support provided. 1730 OOB to commode, void 500 ml clear yellow urine. Requested to sit in chair to alleviate back discomfort. 1755 Questionable deceleration when in chair. Improved variability after. No relationship to a contraction. Will monitor closely as pt is finally comfortable and able to doze off. Pitocin at 6 mU andno contractions seen or palpated. 1809 Questionable decelerations continue with pt asleep in the chair. Unable to record any contractions. Turned to right lateral while in chair. Dr Juarez called to come down to review strip. 1819 Pt escorted back to bed. Dr Juarez in to see pt. 1824 Cervical exam done 2-/-1 then repositioned to left side. Mild contraction palpated. Plan for labor discussed. Pt feeling abdominal discomfort but has not eaten dinner yet. Plan is to eat andthen have epidural placed. 1849 Pitocin stopped. O2 via mask added at 10 l/MIN. Had just started an IV bolus for epidural but Dr Juarez called and asked for bolus to be stopped and leave it up to anesthesia to decide. 1854 Anesthesia in to talk with pt. 1904 Pt to sitting position, Dr Maya started epidural placement. 1919 Bedside report to oncoming RN. Still placing epidural. 1925 Test dose. Care assumed by Angel Harden. * Plan of Care - Kathy Weathers RN - 10/06/2013 1:40 AM EDT Problem: Cervical Ripening Prior to the Induction of Labor (Obstetrics) Intervention: Emotional Support *(see this RN's progress note)* Problem: Labor (Obstetrics) Intervention: Antepartum Infection Prevention *(see this RN's progress note)* * Miscellaneous - Provider, Scanning - 10/05/2013 12:56 PM EDT * Consult Note - Isaiah Hernandez MD - 10/04/2013 9:00 PM EDT Obstetrical Consult Note Mary Porras is a 18 y.o. female who is at 36w3d weeks gestation by [facility]/S being admitted for induction of labor for maternal medical condition (worsening cardiomyopathy with EF 35%). 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 She required lasix, captopril, digoxin and coumadin until 8 years of age. She has not been on medications since age 8 years as her cardiac performance improved. She had no physical restrictions, and participated in sports in 7th grade; she has not since that time but feels that she was not limited physically in any way. No history of arrhythmias or syncope. In light of her CHF, she was told never to get . She became following the expulsion of a Paraguard IUD, which she was unaware occurred. During her , she did not notice any issues until re cently, at which time she became unable to climb a flight of stairs without shortness of breath. She has had intermittent, mild KATHERINE, and occasionally has orthopnea. She denies chest pain, palpitations, coughing, wheezing, paroxysmal nocturnal dyspnea, contractions or cramping. She has also had 2 episodes of bleeding 4 days ago when urinating, during which she noticed blood on tissue paper after wiping and is unsure if the source was urethral or vaginal. She feels that when she holds her urine for long periods of time she has pain, and that this may have preceded these 2 episodes. Her has been complicated by: - CHF (TTE 10/04/2013 demonstrated EF of 35-40%; previous TTE in 07/2013 demonstrated EF of 50%) - Teen Review of Systems Obstetric Review of Systems Total Weight Gain this Not found. Movement: normal Contractions: none Leaking: None Bleeding; none now Preeclampsia signs and symptoms: None Active Hospital Problems Diagnosis ??? High risk teen ??? Cardiomyopathy Resolved Hospital Problems Diagnosis Date Resolved No resolved problems to display. There are no active non-hospital problems to display for this patient. Past Medical History Diagnosis Date ??? 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 Central venous catheter OB History Grav Para Term Abortions TAB SAB Ect Mult Living 1 # Outc Date GA Lbr Elvis/2nd Wgt Sex Del Anes PTL Lv 1 CUR Prior to Admission Medications Prescriptions prior to admission Medication Sig Dispense Refill ??? metoprolol succinate (TOPROL XL) 25 mg 24 hr tablet Take 1 tablet by mouth daily. 90 tablet 3 ??? pediatric multivitamin with iron chewable tablet Take 1 tablet by mouth daily. Allergies No Known Allergies Family History Problem Relation Age of Onset ??? Coronary Artery Disease ??? Cancer ??? Type 2 Diabetes Social History Occupational History ??? Not on file. Social History Main Topics ??? Smoking status: Never Smoker ??? Smokeless tobacco: Not on file ??? Alcohol Use: Not on file ??? Drug Use: Not on file ??? Sexually Active: Yes -- Male partner(s) Immunization History There is no immunization history on file for this patient. Last Set of Vitals: Patient Vitals for the past 8 hrs: BP Temp Temp src Pulse Resp SpO2 10/05/13 0412 111/59 mmHg 36.4 ??C (97.5 ??F) Oral 95 18 98 % 10/04/13 2347 108/54 mmHg 37 ??C (98.6 ??F) Oral 103 18 97 % Weight - Scale: 108.6 kg (239 lb 6.7 oz) Physical Exam Gen: NAD, conversant CV: tachycardic, regular rhythm, no murmurs, clicks, rubs, gallops Pulm: CTAB, no course breath sounds Abd: soft, non-tender, appropriate fundal height LE: 1+ pretibial edema bilaterally Cervix Exam: Closed / Thick / Posterior Presentations: Cephalic (by targeted U/S 10/04/2013) Heart Rate Interpretation: Mode: continuous external (NST) (10/04/13 2159) HR (beats/min): 140 Variability: moderate (amplitude range 6 to 25 bpm) Accelerations: present Decelerations: none Contraction Frequency (min): irregular Nonstress Test Interpretation: Reactive, >32 weeks: two 15 bpm accelerations lasting 15 seconds Overall Impression: Reassuring for gestational age Comments: irregular contractions Lab Review Lab Results Component Value Date HCT 31.5* 10/05/2013 HGB 9.9* 10/05/2013 MCV 84.2 10/05/2013 AST 19 09/19/2013 Outside Labs: GC/CL - Negative (06/08/13) Rubella - Positive (06/22/13) RPR - Non-Reactive (06/22/13) HIV - Negative (06/22/13) Hepatitis B Surface Antigen - Negative (06/22/13) Hepatitis C Antibody - Negative (06/22/13) T+S - B Positive (06/22/13) Antibody Screen - Negative (06/22/13) Glucose, 1h PP - 106 (08/24/13) Most Recent Growth Ultrasound Date: 10/04/13 GA at US: 36w3d EFW: 2984g; 71%ile Growth appropriate for gestational age Amniotic fluid volumenormal; CHRISTY 16.5 cm; MVP 5.7 cm Placenta posterior Presentation cephalic Assessment & Plan Mary Porras is a 18 y.o. female who is at 36w3d weeks gestation by early U/S being admitted for induction of labor for maternal medical condition (worsening cardiomyopathy with EF 35%). Plan for vaginal delivery; induction to begin when CCU bed becomes available. Need for cervical ripening indicated by cervical exam. Will await full recommendations from Dr. Gallegos regarding possible early epidural, and passive descent. Methergine will need to be avoided in the case of PPH. ?? Labor State: Not in labor. ?? Heart Rate Assessment: Category 1 ?? Labor management: Cervical Ripening ?? GBS Management: Pending (collected) Additional Issues ?? Monitoring and delivery in CCU bed for continuous monitoring of CV status ?? Patient will be on Lopressor 12.5 BID per Cardiology ?? Patient will need to be consented for PLTCS ?? UA ordered ?? Urine GC/CL ordered because there isn't one for 3rd trimester and she's high risk as a teen RUFINO IBRAHIM MD PGY-1 This patient seen and discussed with Dr. Heaven Santillan and Dr. Isaiah Hernandez. I saw and evaluated the patient with the resident team. I reviewed the patient's medical record andhistory with her. I was supervising during interview and physical exam and formation of the assessment and plan. i reviewed her ultrasound and her from 10/04/13 and her We discussed the rationale for admission for delivery and the need for cervical ripening to begin induction process. We discussed obtaining further recommendations from cardiology team. Also plan to check ua given equivocal historyof hematuria. ISAIAH HERNANDEZ MD * Med Student H&P - Isaiah Hernandez MD - 10/04/2013 7:18 PM EDT Medical Student Obstetrics Consult Note Patient ID: Mary Porras is a 18 y.o. at 36w3d by first trimester ultrasound admitted to the cardiac service for IOL for maternal medical condition of dilated cardiomyopathy. Her has otherwise been complicated by young maternal age. Chief Complaint: 18yo female with history of dilated cardiomyopathy who presents for IOL for decreasing cardiac function History of Present Illness: Mary Porras is a 18 y.o. at 36w3d admitted for IOL for maternal medical condition of dilated cardiomyopathy. Her has otherwise been complicated by young maternal age. The patient states that she is here today because her heart function has been declining. Her most recent echocardiogram done today demonstrated an EF of 35-40%. Her echo in June demonstrated an EF of 51%. Her mysql database administrator recommended that she have her baby earlier so that her heartcondition does not get worse. The patient states that she has been generally feeling well during the . Recently during her she has had increased shortness of breath when climbing one flight of stairs. At school she had been restricted to the first floor because of her SOB. She isnow on summer vacation and has not had increased difficulty with her usual activities as far she can tell. She has some increased swelling in her feet (to the ankles) and hands. She has not had chestpain, racing heart beats, or difficulty lying flat when sleeping. She has not had any cough or wheezing. Mary states that this is an unplanned and she feels fine about it. She had a paraguardplaced, but it fell out without her knowing and this was when she became . She feels that she has not had any other complications during the including high blood pressure or diabetes. She did have a yeast infection in July and was treated for this with a topical cream. It has not recurred. She does not report any history of UTIs. She has not had any contractions, cramping, or bleeding today. She did however have 2 episodes of bleeding on 4 days ago when she went to urinate. Sheis not sure if it was from the urethra or the vagina and noticed the blood when she wiped. She feels that when she holds her urine for long periods of time she has pain and this may have preceded hertwo episodes of bleeding on Wednesday. Breast or bottle feeding: patient would like to breast feed, but is willing to bottle feed if needed. Analgesia plan: will discuss with team and understands that she will likely need an early epidural Contraception Plan: Patient states that she plans to wait until her six week visit and then would like to go back on the oral contraceptives as this has worked well for her in the past. We discussed the mini pill which she can have when she goes home and is safe to use during breast feeding. Review of Systems: movement: normal (baby boy Shad) Contractions: none Vaginal bleeding: none today, but had episode of bleeding on Wednesday. Unsure if it was from urethra or vagina. Pre-eclampsia symptoms: mild headache now which she thinks is from walking around all day. No vision changes or abdominal pain. Cardiac: endorses SOB when walking up stairs (see above), no chest pain, no racing heart beats, no difficulty lying flat when sleeping Resp: no history of asthma GI: no nausea, vomiting, diarrhea, or constipation, no bleeding with BM : no pain with urination, no increased frequency of urination, see note above about bleeding Past Medical History Patient Active Problem List Diagnosis Code ??? Cardiomyopathy 425.4 ??? High risk teen V23.89 Patient states that she has had depression in the past and has felt down a few times during this . She has never taken medication for this, but was meeting with a counselor which has been helpful. She no longer has a counselor at this point. Past Medical History Diagnosis Date ??? Myocarditis, viral age 4 months due to enterovirus infection OB History Grav Para Term Abortions TAB SAB Ect Mult Living 1 Past Surgical History Procedure Date ??? Central venous catheter Patient states that she has had no abdominal surgeries. Medications Current Outpatient Prescriptions on File Prior to Encounter Medication Sig Dispense Refill ??? metoprolol succinate (TOPROL XL) 25 mg 24 hr tablet Take 1 tablet by mouth daily. 90 tablet 3 ??? pediatric multivitamin with iron chewable tablet Take 1 tablet by mouth daily. Allergies: No Known Allergies Immunization History: Influenza: not during Tdap: not during Family History: Mother: deteriorated disks, fractured lumbar vertebrae, high BP, depression, bipolar disease Father: bipolar, depression, PTSD Siblings: 3 siblings. Older brother, fractured lumbar and two disks removed. 2 younger siblings fine. Family History Problem Relation Age of Onset ??? Coronary Artery Disease ??? Cancer ??? Type 2 Diabetes Social History: Tobacco: none during EtoH: none Illicit Drug none: Living Situation: lives with mom and step-dad, it is a supportive situation. Partner is supportive. 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 Will be going half- time in the fall andplans to graduate in 2014. Vitals: Last value Range last 24 hrs Temperature Temp: 36.5 ??C (97.7 ??F) Temp: [36.5 ??C (97.7 ??F)] Heart Rate Heart Rate: 116 Heart Rate: [110-116] Blood Pressure BP: 118/57 mmHg BP: (110-118)/(57-74) Respiratory Rate Resp: 18 Resp: [18] SpO2 SpO2: 97 % SpO2: [97 %] BMI Body mass index is 35.87 kg/(m^2). Physical Examination: Gen: sitting in bed with partner Petr at bedside, conversant, NAD CV: RRR, no murmurs or rubs noted. Lungs: CTAB, breathing non-labored. No wheezes, rhonchi, or crackles. Good aeration Abd: Fundus is appropriate for dates, soft, no tenderness to palpation in all 4 quadrants, Normoactive bowel sounds. Ext: No pedal edema. No cyanosis or clubbing Leopolds Presentation: cephalic Position: back maternal right EFW: 5lbs Cervical Exam- deferred, to be done by resident Heart Rate Tracing- patient will have NST Labs: Will attempt to obtain from [facility] GBS status: will collect today Imaging: Most recent ultrasound Date: 10/04/2013 (today) GA: 36w 3d Presentation: cephalic Placenta: posterior CHRISTY FV: normal, MVP 5.74cm EFW: 2984g (71% for GA) Assessment and Plan: Mary Porras is a 18 y.o. at 36w3d admitted to the cardiology service for induction of labor for maternal medical condition of dilated cardiac myopathy. She is currently stable and does not appear to be in labor. Her fetus is cephalic with a posterior placenta as seenby ultrasound done earlier today. She would be able to proceed with IOL once she is transferred to the [facility] for higher level monitoring. She should have her GBS status checked, her records reviewed, and have an NST as soon as possible. We recommend a UA to investigate her bleeding over theweekend. ?? Labor State: Not in active labor ?? Surveillance: will get NST today ?? Labor management: early epidural, will discuss with cardiology about assisted second-stage delivery and medication recommendations ?? GBS Management: will collect new GBS swab today //Code Status: Full Code Sneha Rodriguez, MS IV [facility] 10/04/13 Patient seen and evaluated with resident team. Agree with description of patient's history and indication for admission. Patient's description is that her symptoms have worsened somewhat since the beginning of the since she is now SOB after one flight of stairs. She is ambulatory and doesn't notice any particular symptoms but she also does not exercise or perform any other activity. Agree with plan to ripen cervix when appropriate team availability ISAIAH HERNANDEZ MD documented in this encounter Plan of Treatment Upcoming Encounters Date Type Department Care Team (Late st Contact Info) Description 01/27/2024 1:00 PM EST Appointment Non-Invasive [place] [address] Anton Márquez MD [facility] [address] [place] [address] 01/27/2024 3:00 PM EST Office Visit Cardiology at [address] [phone] Anton Márquez MD [facility] [address] [place] [address] documented as of this encounter Procedures Procedure Name Priority Date/Time Associated Diagnosis Comments REPTILE KEEPER SCAN 10/13/2013 8:24 AM EDT BMP W/FASTING GLUCOSE Routine 10/10/2013 8:05 AM EDT HEMOGRAM Routine 10/10/2013 8:05 AM EDT DIFFERENTIAL, AUTOMATED Routine 10/10/2013 8:05 AM EDT CBC (WITH DIFF) Routine 10/10/2013 8:05 AM EDT MAGNESIUM Routine 10/10/2013 8:05 AM EDT HEMOGRAM Routine 10/09/2013 3:35 AM EDT DIFFERENTIAL, AUTOMATED Routine 10/09/2013 3:35 AM EDT CBC (WITH DIFF) Routine 10/09/2013 3:35 AM EDT BASIC METABOLIC PANEL Routine 10/09/2013 3:35 AM EDT SPECIMEN TO PATHOLOGY (NON-OR) Routine 10/08/2013 8:42 AM EDT SURGICAL PATHOLOGY REPORT Routine 10/08/2013 7:07 AM EDT SPECIMEN TO PATHOLOGY Routine 10/08/2013 7:07 AM EDT NUCLEATED RED BLOOD CELLS Routine 10/08/2013 7:00 AM EDT HEMOGRAM Routine 10/08/2013 7:00 AM EDT DIFFERENTIAL, AUTOMATED Routine 10/08/2013 7:00 AM EDT CBC (WITH DIFF) Routine 10/08/2013 7:00 AM EDT BASIC METABOLIC PANEL Routine 10/08/2013 7:00 AM EDT @ DELIVERY (WRVU 16.13) 10/08/2013 2:[address] PICC LINE: CONTACT VASCULAR ACCESS Routine 10/07/2013 4:11 PM EDT XR PICC PLACEMENT OVER 5 YEARS (IV TEAM) Routine 10/07/2013 3:50 PM EDT HEMOGRAM Routine 10/07/2013 4:20 AM EDT DIFFERENTIAL, AUTOMATED Routine 10/07/2013 4:20 AM EDT CBC (WITH DIFF) Routine 10/07/2013 4:20 AM EDT PRO-BRAIN NATRIURETIC PEPTIDE Routine 10/07/2013 4:20 AM EDT BASIC METABOLIC PANEL Routine 10/07/2013 4:20 AM EDT NUCLEATED RED BLOOD CELLS Routine 10/06/2013 4:40 AM EDT HEMOGRAM Routine 10/06/2013 4:40 AM EDT DIFFERENTIAL, AUTOMATED Routine 10/06/2013 4:40 AM EDT CBC (WITH DIFF) Routine 10/06/2013 4:40 AM EDT BASIC METABOLIC PANEL Routine 10/06/2013 4:40 AM EDT ABO/RH TYPING Routine 10/05/2013 6:00 PM EDT ANTIBODY SCREEN Routine 10/05/2013 6:00 PM EDT TYPE AND SCREEN ([facility]/ALICJA) Routine 10/05/2013 6:00 PM EDT HEMOGRAM Routine 10/05/2013 3:30 AM EDT DIFFERENTIAL, AUTOMATED Routine 10/05/2013 3:30 AM EDT CBC (WITH DIFF) Routine 10/05/2013 3:30 AM EDT BASIC METABOLIC PANEL Routine 10/05/2013 3:30 AM EDT GC/CHLAMYDIA Routine 10/05/2013 12:55 AM EDT GC/CHLAM Routine 10/05/2013 12:55 AM EDT URINALYSIS WITH REFLEX CULTURE Routine 10/05/2013 12:54 AM EDT GROUP B STREPTOCOCCUS SCREEN Routine 10/04/2013 9:29 PM EDT GROUP B STREP CULTURE SCREEN Routine 10/04/2013 9:29 PM EDT SUBSEQUENT EXTERNAL RESULTS PANEL Routine 08/24/2013 INITIAL EXTERNAL RESULTS PANEL Routine 06/22/2013 documented in this encounter Results * SCAN DOC: REPTILE KEEPER (10/13/2013 8:24 AM EDT) Anatomical Region Laterality Modality Other Narrative 10/13/2013 8:33 AM EDT Procedure Note Provider, Scanning - 10/13/2013 8:24 AM EDT Scanning Provider MEDIA MGR SCAN EXT O RDR/RSLT * Magnesium (10/10/2013 8:05 AM EDT) Magnesium 0.69 0.69 - 1.07 mmol/L CERNER MILLENNIUM Blood specimen (specimen) 10/10/2013 8:05 AM EDT 10/10/2013 8:21 AM EDT Narrative Resulting Agency Comment Spec In Lab Alexandr Castaneda MD CHEMISTRY ORDERAB LES CERNER MILLENNIUM * (ABNORMAL) Differential, Automated (10/10/2013 8:05 AM EDT) Neutrophil % 72.3 37.0 - 77.0 % CERNER MILLENNIUM Neutrophil Absolute 9.79(H) 1.50 - 8.00 x10(3)/mc L CERNER MILLENNIUM Lymph % 14.7(L) 20.0 - 50.0 % CERNER MILLENNIUM Lymphocytes Abs 2.0 1.2 - 5.2 x10(3)/mc L CERNER MILLENNIUM Monocyte % 7.7 2.0 - 12.0 % CERNER MILLENNIUM Monocyte Abs 1.0 0.2 - 1.0 x10(3)/mc L CERNER MILLENNIUM Eos % 4.6 0.0 - 7.0 % CERNER MILLENNIUM Eosinophils Abs 0.6(H) 0.0 - 0.5 x10(3)/mc L CERNER MILLENNIUM Basophil % 0.2 0.0 - 2.0 % CERNER MILLENNIUM Baso Absolute 0.0 0.0 - 0.2 x10(3)/mc L CERNER MILLENNIUM Immature Gran % 0.50 0.00 - 0.66 % CERNER MILLENNIUM Comment: Immature granulocytes(IG's)percentage and absolute count will include metamyelocytes, myelocytes, and promyelocytes. Blood smears from CBCs yielding IG's will be scanned manually for concordance. If this scan disagrees with the automated IG or if promyelocytes are noted, a manual differential will be performed. Immature Gran Absolute 0.07(H) 0.00 - 0.05 x10(3)/mc L CERNER MILLENNIUM Blood specimen (specimen) 10/10/2013 8:05 AM EDT 10/10/2013 8:20 AM EDT Narrative Resulting Agency Comment Spec In Lab Alexandr Castaneda MD HEMATOLOGY ORDERA BLES CERJES[facility] MONTENEGROENNIUM * (ABNORMAL) Hemogram (10/10/2013 8:05 AM EDT) White Blood Cell 13.5(H) 4.5 - 13.0 x10(3)/mc L CERNER MILLENNIUM Red Blood Cell 3.54(L) 4.10 - 5.10 x10(6)/mc L CERNER MILLENNIUM Hemoglobin 9.1(L) 12.0 - 16.0 gm/dL CERNER MILLENNIUM Hematocrit 29.6(L) 36.0 - 46.0 % CERNER MILLENNIUM Mean Cell Volume 83.6 76.0 - 98.0 fL CERNER MILLENNIUM Mean Cell Hemoglobin 25.7 25.0 - 35.0 pg CERNER MILLENNIUM Mean Cell Hemoglobin Concentration 30.7(L) 32.0 - 36.5 gm/dL CERNER MILLENNIUM Platelet 227 145 - 370 x10(3)/mc L CERNER MILLENNIUM RDW Standard Deviation 47.4(H) 35.0 - 46.0 fL CERNER MILLENNIUM RDW coefficient of variation 15.5(H) 10.9 - 14.4 % CERNER MILLENNIUM Mean Platelet Volume 10.0 9.0 - 12.0 fL CERNER MILLENNIUM Blood specimen (specimen) 10/10/2013 8:05 AM EDT 10/10/2013 8:20 AM EDT Narrative Resulting Agency Comment Spec In Lab Alexandr Castaneda MD [facility] M[facility] * (ABNORMAL) BMP w/fasting Glucose (10/10/2013 8:05 AM EDT) Glucose Fasting 81 65 - 99 mg/dL CERNER MILLENNIUM Comment: ?Fasting* Glucose Interpretive Criteria Normal ?65-99 mg/dL Impaired Fasting glucose ?100-125 mg/dL Consistent with Diabetes Mellitus ? >or= 126 mg/dL *Fasting is defined as no caloric intake for at least 8 hours In the absence of unequivocal hyperglycemia a plasma glucose value of >or= 126 mg/dL should be repeated on a subsequent day. Diagnosis and Classification of Diabetes Mellitus, Position Statement from the [place] [employer]. ??Diabetes Care, Volume 33, Supplement 1, Mar 2009 Blood Urea Nitrogen 8(L) 10 - 20 mg/dL CERNER MILLENNIUM Creatinine 0.46 0.20 - 0.70 mg/dL CERNER MILLENNIUM Comment: Please note that the pediatric reference intervals supplied above were [place] validated [place] [facility] Results from pediatric patients should be interpreted in conjunction to the patient's age, height and muscle mass. Sodium 139 135 - 145 mmol/L CERNER MILLENNIUM Potassium 4.2 3.5 - 5.0 mmol/L CERNER MILLENNIUM Comment: Please note: ??Patients with WBC >100,000 may have falsely elevated Potassium levels. ??For accurate Potassium quantification in these patients send serum separator tube (gold top) for subsequent determinations. ??Contact the Clinical Chemistry Laboratory if there are any questions. Chloride 103 98 - 107 mmol/L CERNER MILLENNIUM Carbon Dioxide 25 22 - 31 mmol/L CERNER MILLENNIUM Anion Gap 11 5 - 15 mmol/L CERNER MILLENNIUM Calcium 8.9 8.5 - 10.5 mg/dL CERNER MILLENNIUM Est Glomerular Filtration Rate See note >=60 CERNER MILLENNIUM Comment: Calculated GFR not appropriate for patients less than 18 years of age. This estimated GFR (eGFR) value was calculated using the MDRD equation which has been validated on patients between the ages of 18 and 70. The MDRD should not be used to assess kidney function in patients < 18 years of age or in patients with extremes of body mass, or in patients with acute kidney failure. This value should be multiplied by 1.2 for patients. For further information please copy and paste the following links into your internet browser. http://[employer]/DHnkdep http://[employer]/DHMCnkf Blood specimen (specimen) 10/10/2013 8:05 AM EDT 10/10/2013 8:20 AM EDT Narrative Resulting Agency Comment Spec In Lab Alexandr Castaneda MD CHEMISTRY ORDERAB LES CERNER MONIENNIUM * (ABNORMAL) Differential, Automated (10/09/2013 3:35 AM EDT) Neutrophil % 75.2 37.0 - 77.0 % CERNER MILLENNIUM Neutrophil Absolute 9.67(H) 1.50 - 8.00 x10(3)/mc L CERNER MILLENNIUM Lymph % 12.6(L) 20.0 - 50.0 % CERNER MILLENNIUM Lymphocytes Abs 1.6 1.2 - 5.2 x10(3)/mc L CERNER MILLENNIUM Monocyte % 9.4 2.0 - 12.0 % CERNER MILLENNIUM Monocyte Abs 1.2(H) 0.2 - 1.0 x10(3)/mc L CERNER MILLENNIUM Eos % 2.3 0.0 - 7.0 % CERNER MILLENNIUM Eosinophils Abs 0.3 0.0 - 0.5 x10(3)/mc L CERNER MILLENNIUM Basophil % 0.2 0.0 - 2.0 % CERNER MILLENNIUM Baso Absolute 0.0 0.0 - 0.2 x10(3)/mc L CERNER MILLENNIUM Immature Gran % 0.30 0.00 - 0.66 % CERNER MILLENNIUM Comment: Immature granulocytes(IG's)percentage and absolute count will include metamyelocytes, myelocytes, and promyelocytes. Blood smears from CBCs yielding IG's will be scanned manually for concordance. If this scan disagrees with the automated IG or if promyelocytes are noted, a manual differential will be performed. Immature Gran Absolute 0.04 0.00 - 0.05 x10(3)/mc L CERNER MILLENNIUM Blood specimen (specimen) 10/09/2013 3:35 AM EDT 10/09/2013 3:52 AM EDT Narrative Resulting Agency Comment Spec In Lab Alexandr Castaneda MD HEMATOLOGY ORDERA BLES CERNER MILLENNIUM * (ABNORMAL) Hemogram (10/09/2013 3:35 AM EDT) White Blood Cell 12.9 4.5 - 13.0 x10(3)/mc L CERNER MILLENNIUM Red Blood Cell 3.70(L) 4.10 - 5.10 x10(6)/mc L CERNER MILLENNIUM Hemoglobin 9.8(L) 12.0 - 16.0 gm/dL CERNER MILLENNIUM Hematocrit 31.1(L) 36.0 - 46.0 % CERNER MILLENNIUM Mean Cell Volume 84.1 76.0 - 98.0 fL CERNER MILLENNIUM Mean Cell Hemoglobin 26.5 25.0 - 35.0 pg CERNER MILLENNIUM Mean Cell Hemoglobin Concentration 31.5(L) 32.0 - 36.5 gm/dL CERNER MILLENNIUM Platelet 224 145 - 370 x10(3)/mc L CERNER MILLENNIUM RDW Standard Deviation 47.3(H) 35.0 - 46.0 fL CERNER MILLENNIUM RDW coefficient of variation 15.4(H) 10.9 - 14.4 % CERNER MILLENNIUM Mean Platelet Volume 10.1 9.0 - 12.0 fL CERNER MILLENNIUM Blood specimen (specimen) 10/09/2013 3:35 AM EDT 10/09/2013 3:52 AM EDT Narrative Resulting Agency Comment Spec In Lab Alexandr Castaneda MD HEMATOLOGY ORDERA BLES CERNER MILLENNIUM * (ABNORMAL) Basic Metabolic Panel (non-fasting) (10/09/2013 3:35 AM EDT) Glucose 100 60 - 199 mg/dL CERNER MILLENNIUM Comment:Diabetes: >=200 mg/d L plus symptoms Blood Urea Nitrogen 9(L) 10 - 20 mg/dL CERNER MILLENNIUM Creatinine 0.63 0.20 - 0.70 mg/dL CERNER MILLENNIUM Comment: Please note that the pediatric reference intervals supplied above were not validated [place] [facility] Results from pediatric patients should be interpreted in conjunction to the patient's age, height and muscle mass. Sodium 133(L) 135 - 145 mmol/L CERNER MILLENNIUM Potassium 4.0 3.5 - 5.0 mmol/L CERNER MILLENNIUM Comment: Please note: ??Patients with WBC >100,000 may have falsely elevated Potassium levels. ??For accurate Potassium quantification in these patients send serum separator tube (gold top) for subsequent determinations. ??Contact the Clinical Chemistry Laboratory if there are any questions. Chloride 100 98 - 107 mmol/L CERNER MILLENNIUM Carbon Dioxide 25 22 - 31 mmol/L CERNER MILLENNIUM Anion Gap 8 5 - 15 mmol/L CERNER MILLENNIUM Calcium 8.8 8.5 - 10.5 mg/dL CERNER MILLENNIUM Est Glomerular Filtration Rate See note >=60 CERNER MILLENNIUM Comment: Calculated GFR not appropriate for patients less than 18 years of age. This estimated GFR (eGFR) value was calculated using the MDRD equation which has been validated on patients between the ages of 18 and 70. The MDRD should not be used to assess kidney function in patients < 18 years of age or in patients with extremes of body mass, or in patients with acute kidney failure. This value should be multiplied by 1.2 for patients. For further information please copy and paste the following links into your internet browser. http://[employer]/DHnkdep http://[employer]/DHMCnkf Blood specimen (specimen) 10/09/2013 3:35 AM EDT 10/09/2013 3:52 AM EDT Narrative Resulting Agency Comment Spec In Lab Alexandr Castaneda MD CHEMISTRY ORDERAB LES Performing Organization Address [place]/[facility] Co de Phone Number DARIUS KEITH * Specimen to Pathology (NON-OR) (10/08/2013 8:42 AM EDT) AP Specimen 10/08/2013 8:42 AM EDT 10/08/2013 8:42 AM EDT Narrative DARIUS MONICATYFORMERLY [facility] - 10/08/2013 8:42 AM EDT Specimen requisition ordered. ??Separate Pathology report to follow Alexandr Castaneda MD PATHOLOGY/CYTOLOG Y ORDERABLES Performing Organization Address [place]/[facility] Co de Phone Number DARIUS KEITH * Surgical Pathology Report (10/08/2013 7:07 AM EDT) Final Diagnosis ? [facility] ? Provider: ?? SIDNEY CANELA ??Pt. Name: ?? MARY PORRAS ? Acc #: ?[id number] ?Pt. ? Col Date: ?? 10/08/2013 ? /Sex: ?1995,(18 years),Female ? Rec Date: ?? 10/09/2013 ? LOC: ?BP ? SURGICAL PATHOLOGY ? ---Pathologic Diagnosis--- ? Placenta (398.0 grams): ?1. Third-trimester placenta. ?2. No evidence of acute chorioamnionitis or funisitis. ? CR-0 ? 10/11/13 ? JLG ? 10/11/13 Verified by: ? David MEDINA, Josue Jones ? Pathologist ? (Electronic Signature) ? The attending pathologist whose signature appears on this report has ? reviewed all diagnostic slides and has edited the gross and/or ? microscopic portion of the report in rendering the final pathologic ? diagnosis. ? ---Gross Description--- ? A - Labeled/Fixative: Placenta for exam, fresh. ? Qty/Size/Weight: Single, 27.6 x 25.6 x 3.7 cm, 398 g. ? Tissue Description: Intact discoid placenta with attached and detached ? cord. ? Membranes: [place], semitransparent, marginal insertion. ? Cord: 44.5 x 1.2 cm; three vessels; paracentral insertion. ? Surface: Ray-blue, clear, no focal lesion. ? Maternal Surface: Intact without focal lesion. ? Parenchyma: Red-brown, spongy tissue with no focal lesion. ? Sections/Processing : (1) membrane roll; (2) proximal and distal cord; (3) ? surface; (4) maternal surface. (R4) ??jamil ? ---Clinical Information--- ? Specimen Submitted: ? A - Placenta ? Clinical History: ? C/S at 37 weeks for non-reassuring status, maternal cardiomyopathy. ? Clinical Diagnosis: ? None provided. 10/11/2013 4:02 PM EDT [facility] TISSUE SPECIMEN FROM PLACENTA / Unknown 10/08/2013 7:07 AM EDT 10/08/2013 7:07 AM EDT Sidney Canela MD PATHOLOGY/CYTOLOGY ORDERABLES Performing Organization Address City/[facility]/ZIP Co de Phone Number DARIUS MONICATYIUM [facility] [place] [address] * Specimen to Pathology (surgical or derm) (10/08/2013 7:07 AM EDT) AP Specimen 10/08/2013 7:07 AM EDT 10/08/2013 7:07 AM EDT Narrative DARIUS WEINBERGIUM - 10/08/2013 7:07 AM EDT Specimen requisition ordered. ??Separate Pathology report to follow Alexandr Castaneda MD PATHOLOGY/CYTOLOG Y ORDERABLES Performing Organization Address [place]/[facility] Co de Phone Number CERJESUS MONIENNIUM * Nucleated Red Blood Cells (10/08/2013 7:00 AM EDT) NRBC% auto 0.0 0.0 - 0.2 % CERNER MILLENNIUM NRBC Absolute 0.000 0.000 - 0.012 x10(3)/mcL DARIUS MILLENNIUM Blood specimen (specimen) 10/08/2013 7:00 AM EDT 10/08/2013 7:12 AM EDT Narrative Resulting Agency Comment Spec In Lab Mare Smith MD HEMATOLOGY ORDERABLE S CERNER MILLENNIUM * (ABNORMAL) Differential, Automated (10/08/2013 7:00 AM EDT) Neutrophil % 81.0(H) 37.0 - 77.0 % CERNER MILLENNIUM Neutrophil Absolute 14.58(H) 1.50 - 8.00 x10(3)/mc L CERNER MILLENNIUM Lymph % 9.9(L) 20.0 - 50.0 % CERNER MILLENNIUM Lymphocytes Abs 1.8 1.2 - 5.2 x10(3)/mc L CERNER MILLENNIUM Monocyte % 6.9 2.0 - 12.0 % CERNER MILLENNIUM Monocyte Abs 1.2(H) 0.2 - 1.0 x10(3)/mc L CERNER MILLENNIUM Eos % 1.4 0.0 - 7.0 % CERNER MILLENNIUM Eosinophils Abs 0.2 0.0 - 0.5 x10(3)/mc L CERNER MILLENNIUM Basophil % 0.3 0.0 - 2.0 % CERNER MILLENNIUM Baso Absolute 0.0 0.0 - 0.2 x10(3)/mc L CERNER MILLENNIUM Immature Gran % 0.50 0.00 - 0.66 % CERNER MILLENNIUM Comment: Immature granulocytes(IG's)percentage and absolute count will include metamyelocytes, myelocytes, and promyelocytes. Blood smears from CBCs yielding IG's will be scanned manually for concordance. If this scan disagrees with the automated IG or if promyelocytes are noted, a manual differential will be performed. Immature Gran Absolute 0.09(H) 0.00 - 0.05 x10(3)/mc L CERNER MILLENNIUM Blood specimen (specimen) 10/08/2013 7:00 AM EDT 10/08/2013 7:12 AM EDT Narrative Resulting Agency Comment Spec In Lab Mare Smith MD HEMATOLOGY ORDERABLE S CERJESUS MONTENEGROENNIUM * (ABNORMAL) Hemogram (10/08/2013 7:00 AM EDT) White Blood Cell 18.0(H) 4.5 - 13.0 x10(3)/mc L CERNER MILLENNIUM Red Blood Cell 3.98(L) 4.10 - 5.10 x10(6)/mc L CERNER MILLENNIUM Hemoglobin 10.3(L) 12.0 - 16.0 gm/dL CERNER MILLENNIUM Hematocrit 33.1(L) 36.0 - 46.0 % CERNER MILLENNIUM Mean Cell Volume 83.2 76.0 - 98.0 fL CERNER MILLENNIUM Mean Cell Hemoglobin 25.9 25.0 - 35.0 pg CERNER MILLENNIUM Mean Cell Hemoglobin Concentration 31.1(L) 32.0 - 36.5 gm/dL CERNER MILLENNIUM Platelet 264 145 - 370 x10(3)/mc L CERNER MILLENNIUM RDW Standard Deviation 45.7 35.0 - 46.0 fL CERNER MILLENNIUM RDW coefficient of variation 15.3(H) 10.9 - 14.4 % CERNER MILLENNIUM Mean Platelet Volume 10.7 9.0 - 12.0 fL CERNER MILLENNIUM Blood specimen (specimen) 10/08/2013 7:00 AM EDT 10/08/2013 7:12 AM EDT Narrative Resulting Agency Comment Spec In Lab Mare Smith MD HEMATOLOGY ORDERABLE S CERNER MILLENNIUM * (ABNORMAL) Basic Metabolic Panel (non-fasting) (10/08/2013 7:00 AM EDT) [facility] Glucose 79 60 - 199 mg/dL CERNER MILLENNIUM Comment:Diabetes: >=200 mg/d L plus symptoms Blood Urea Nitrogen 9(L) 10 - 20 mg/dL CERNER MILLENNIUM Creatinine 0.57 0.20 - 0.70 mg/dL CERNER MILLENNIUM Comment: Please note that the pediatric reference intervals supplied above were not validated [place] [facility] Results from pediatric patients should be interpreted in conjunction to the patient's age, height and muscle mass. Sodium 139 135 - 145 mmol/L CERNER MILLENNIUM Potassium 4.1 3.5 - 5.0 mmol/L CERNER MILLENNIUM Comment: Please note: ??Patients with WBC >100,000 may have falsely elevated Potassium levels. ??For accurate Potassium quantification in these patients send serum separator tube (gold top) for subsequent determinations. ??Contact the Clinical Chemistry Laboratory if there are any questions. Chloride 106 98 - 107 mmol/L CERNER MILLENNIUM Carbon Dioxide 21(L) 22 - 31 mmol/L CERNER MILLENNIUM Anion Gap 12 5 - 15 mmol/L CERNER MILLENNIUM Calcium 8.6 8.5 - 10.5 mg/dL CERNER MILLENNIUM Est Glomerular Filtration Rate See note >=60 [facility] Comment: Calculated GFR not appropriate for patients less than 18 years of age. This estimated GFR (eGFR) value was calculated using the MDRD equation which has been validated on patients between the ages of 18 and 70. The MDRD should not be used to assess kidney function in patients < 18 years of age or in patients with extremes of body mass, or in patients with acute kidney failure. This value should be multiplied by 1.2 for patients. For further information please copy and paste the following links into your internet browser. http://[employer]/DHnkdep [email or web address]://[employer]/DHMCnkf Blood specimen (specimen) 10/08/2013 7:00 AM EDT 10/08/2013 7:12 AM EDT Narrative Resulting Agency Comment Spec In Lab Alexandr Castaneda MD CHEMISTRY ORDERAB LES DARIUS KEITH * Place PICC Line: Contact Vascular Access Page [id number] (10/07/2013 4:11 PM EDT) Narrative Teodoro Neff RN - 10/07/2013 4:11 PM EDT Teodoro Neff RN ? 10/07/2013 ??4:11 PM PICC/Midline Insertion Procedure Note Indications: Access This insertion was not to replace a [...] to the planned procedure. Hand Hygiene: The tenant relations coordinator did perform hand hygiene prior to line insertion. Catheter type: PICC Lot number: [id number] Procedure Technique: Skin was prepped with chlorhexidine. [...] Details: Order received for catheter placement. A 4 Fr. single lumen Bard Power catheter was placed into the left basilic vein over a 0.018 inch guidewire using modified seldinger technique and fluoroscopy. Arm circumference was 31 cm at 2 cm above the insertion site. Final catheter length (with trimming): 41 cm Internal: 41 cm External: 0 cm Tip in SVC per DR MENON. The line was not placed over a guidewire. 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 5 mls of normal saline infused free flowing to gravity via PICC after insertion. Sterile dressing applied: Tegaderm and Biopatch. Findings: The patient did tolerate the procedure well. No Complications. Procedure Comments: UNSUCCESSFUL ATTEMPTS ON RIGHT ARM - ONE BASILIC, ONE CEPHALIC. EACH TIME, WIRE WOULD NOT ADVANCE. LEFT BASILIC ACCESSED AND WIRE ADVANCED SUCCESSFULLY. TEODORO NEFF RN 10/07/2013 Procedure Note Teodoro Neff RN - 10/07/2013 3:12 PM EDT PICC/Midline Insertion Procedure Note Indications: Access This insertion was not to replace a malfunctioning catheter. This insertion was not due to a suspected line-associated infection. Location of Procedure: X-Ray Room 11 Risks and Benefits: The risks and benefits of this procedure were reviewed and informedconsent was obtained obtained. Time Out: Prior to the start of the procedure, the patient's identity, intendedprocedure, site/side, correct patient positioning and presence of the sitemark was confirmed as applicable. The medical history and chart werereviewed to rule out potential contraindications to the planned procedure. Hand Hygiene: The tenant relations coordinator did perform hand hygiene prior to line insertion. Catheter type: PICC Lot number: [id number] Procedure Technique: Skin was prepped with chlorhexidine. Skin preparation agent was completely dry at the time of first skinpuncture. The following barrier precaution methods were used:large sterile drape,maske/eye shield, large sterile gown, sterile gloves and cap. 3 ml of 1% Lidocaine was used for skin wheal. Ultrasound was used forguidance. Radiographic contrast agent was not injected for veinidentification. Procedure Details: Order received for catheter placement. A 4 Fr. single lumen Bard Powercatheter was placed into the left basilic vein over a 0.018 inch guidewireusing modified seldinger technique and fluoroscopy. Arm circumference was31 cm at 2 cm above the insertion site. Final catheter length (with trimming): 41 cm Internal: 41 cm External: 0 cm Tip in SVC per DR MENON. The line was not placed over a guidewire. 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 5 mlsof normal saline infused free flowing to gravity via PICC after insertion.Sterile dressing applied: Tegaderm and Biopatch. Findings: The patient did tolerate the procedure well. No Complications. Procedure Comments: UNSUCCESSFUL ATTEMPTS ON RIGHT ARM - ONE BASILIC, ONE CEPHALIC. EACH TIME,WIRE WOULD NOT ADVANCE. LEFT BASILIC ACCESSED AND WIRE ADVANCEDSUCCESSFULLY. TEODORO NEFF RN 10/07/2013 Alexandr Castaneda MD PROCEDURE/MINOR S URGICAL ORDERABLES * XR VAS venous access (PICC placement) (10/07/2013 3:50 PM EDT) Anatomical Region Laterality Modality N/A Radiographic Coco ging 10/07/2013 3:50 PM EDT Narrative 10/07/2013 5:03 PM EDT Examination PLACEMENT PICC LINE (IV TEAM) Over 5 yrs/XCARM Clinical History DILATED CARDIOMYOPATHY/HIGH RISK PREGANCY Technique C-arm placement of a PICC line. Limited view of the line tip only. Findings Intraprocedural frontal radiograph of the mediastinum demonstrates a left upper extremity PICC line, with the catheter tip projected at the mid SVC. Film and interpretation reviewed by the attending Procedure Note Liat Patterson MD - 10/07/2013 Examination PLACEMENT PICC LINE (IV TEAM) Over 5 yrs/XCARM Clinical History DILATED CARDIOMYOPATHY/HIGH RISK PREGANCY Technique C-arm placement of a PICC line. Limited view of the line tip only. Findings Intraprocedural frontal radiograph of the mediastinum demonstrates a leftupper extremity PICC line, with the catheter tip projected at the mid SVC. Film and interpretation reviewed by the attending Alexandr Castaneda MD IMG FLUORO ORDERA BLES * (ABNORMAL) pro-Brain Natriuretic Peptide (10/07/2013 4:20 AM EDT) NT-proBNP 438(H) <=125 pg/mL CERNER MILLENNIUM Blood specimen (specimen) 10/07/2013 4:20 AM EDT 10/07/2013 4:30 AM EDT Narrative Resulting Agency Comment Spec In Lab Mare Smith MD CHEMISTRY ORDERABLES CERNER MILLENNIUM * (ABNORMAL) Differential, Automated (10/07/2013 4:20 AM EDT) Pathologist [facility] Neutrophil % 72.0 37.0 - 77.0 % CERNER MILLENNIUM Neutrophil Absolute 9.24(H) 1.50 - 8.00 x10(3)/mc L CERNER MILLENNIUM Lymph % 13.3(L) 20.0 - 50.0 % CERNER MILLENNIUM Lymphocytes Abs 1.7 1.2 - 5.2 x10(3)/mc L CERNER MILLENNIUM Monocyte % 10.4 2.0 - 12.0 % CERNER MILLENNIUM Monocyte Abs 1.3(H) 0.2 - 1.0 x10(3)/mc L CERNER MILLENNIUM Eos % 3.4 0.0 - 7.0 % CERNER MILLENNIUM Eosinophils Abs 0.4 0.0 - 0.5 x10(3)/mc L CERNER MILLENNIUM Basophil % 0.2 0.0 - 2.0 % CERNER MILLENNIUM Baso Absolute 0.0 0.0 - 0.2 x10(3)/mc L CERNER MILLENNIUM Immature Gran % 0.70(H) 0.00 - 0.66 % CERNER MILLENNIUM Comment: Immature granulocytes(IG's)percentage and absolute count will include metamyelocytes, myelocytes, and promyelocytes. Blood smears from CBCs yielding IG's will be scanned manually for concordance. If this scan disagrees with the automated IG or if promyelocytes are noted, a manual differential will be performed. Immature Gran Absolute 0.09(H) 0.00 - 0.05 x10(3)/mc L CERNER MILLENNIUM Blood specimen (specimen) 10/07/2013 4:20 AM EDT 10/07/2013 4:28 AM EDT Narrative Resulting Agency Comment Spec In Lab Mare Smith MD HEMATOLOGY ORDERABLE S Performing Organization Address City/[facility]/ZIP Co de Phone Number CERJESUS MILLENNIUM * (ABNORMAL) Hemogram (10/07/2013 4:20 AM EDT) White Blood Cell 12.8 4.5 - 13.0 x10(3)/mc L CERNER MILLENNIUM Red Blood Cell 4.06(L) 4.10 - 5.10 x10(6)/mc L CERNER MILLENNIUM Hemoglobin 10.6(L) 12.0 - 16.0 gm/dL CERNER MILLENNIUM Hematocrit 33.7(L) 36.0 - 46.0 % CERNER MILLENNIUM Mean Cell Volume 83.0 76.0 - 98.0 fL CERNER MILLENNIUM Mean Cell Hemoglobin 26.1 25.0 - 35.0 pg CERNER MILLENNIUM Mean Cell Hemoglobin Concentration 31.5(L) 32.0 - 36.5 gm/dL CERNER MILLENNIUM Platelet 276 145 - 370 x10(3)/mc L CERNER MILLENNIUM RDW Standard Deviation 45.3 35.0 - 46.0 fL CERNER MILLENNIUM RDW coefficient of variation 15.2(H) 10.9 - 14.4 % CERNER MILLENNIUM Mean Platelet Volume 10.3 9.0 - 12.0 fL CERNER MILLENNIUM Blood specimen (specimen) 10/07/2013 4:20 AM EDT 10/07/2013 4:28 AM EDT Narrative Resulting Agency Comment Spec In Lab Mare Smith MD HEMATOLOGY ORDERABLE S Performing Organization Address [place]/[facility]/ZIP Co de Phone Number CERJESUS MONTENEGROENNIUM * (ABNORMAL) Basic Metabolic Panel (non-fasting) (10/07/2013 4:20 AM EDT) [facility] Glucose 99 60 - 199 mg/dL CERNER MILLENNIUM Comment:Diabetes: >=200 mg/d L plus symptoms Blood Urea Nitrogen 8(L) 10 - 20 mg/dL CERNER MILLENNIUM Creatinine 0.59 0.20 - 0.70 mg/dL CERNER MILLENNIUM Comment: Please note that the pediatric reference intervals supplied above were not validated at [facility] Results from pediatric patients should be interpreted in conjunction to the patient's age, height and muscle mass. Sodium 138 135 - 145 mmol/L CERNER MILLENNIUM Potassium 4.1 3.5 - 5.0 mmol/L CERNER MILLENNIUM Comment: Please note: ??Patients with WBC >100,000 may have falsely elevated Potassium levels. ??For accurate Potassium quantification in these patients send serum separator tube (gold top) for subsequent determinations. ??Contact the Clinical Chemistry Laboratory if there are any questions. Chloride 103 98 - 107 mmol/L CERNER MILLENNIUM Carbon Dioxide 19(L) 22 - 31 mmol/L CERNER MILLENNIUM Anion Gap 16(H) 5 - 15 mmol/L CERNER MILLENNIUM Calcium 9.5 8.5 - 10.5 mg/dL CERNER MILLENNIUM Est Glomerular Filtration Rate See note >=60 CERNER MILLENNIUM Comment: Calculated GFR not appropriate for patients less than 18 years of age. This estimated GFR (eGFR) value was calculated using the MDRD equation which has been validated on patients between the ages of 18 and 70. The MDRD should not be used to assess kidney function in patients < 18 years of age or in patients with extremes of body mass, or in patients with acute kidney failure. This value should be multiplied by 1.2 for patients. For further information please copy and paste the following links into your internet browser. [email or web address]/DHnkdep [email or web address]/DHnkf Blood specimen (specimen) 10/07/2013 4:20 AM EDT 10/07/2013 4:28 AM EDT Narrative Resulting Agency Comment Spec In Lab Alexandr Castaneda MD CHEMISTRY ORDERAB LES CERNER MILLENNIUM * (ABNORMAL) Nucleated Red Blood Cells (10/06/2013 4:40 AM EDT) NRBC% auto 0.2 0.0 - 0.2 % CERNER MILLENNIUM NRBC Absolute 0.020(H) 0.000 - 0.012 x10(3)/mcL CERNER MILLENNIUM Blood specimen (specimen) 10/06/2013 4:40 AM EDT 10/06/2013 4:45 AM EDT Narrative Resulting Agency Comment Spec In Lab Mare Smith MD HEMATOLOGY ORDERABLE S CERNER MILLENNIUM * (ABNORMAL) Differential, Automated (10/06/2013 4:40 AM EDT) Neutrophil % 66.4 37.0 - 77.0 % CERNER MILLENNIUM Neutrophil Absolute 7.85 1.50 - 8.00 x10(3)/mc L CERNER MILLENNIUM Lymph % 20.9 20.0 - 50.0 % CERNER MILLENNIUM Lymphocytes Abs 2.5 1.2 - 5.2 x10(3)/mc L CERNER MILLENNIUM Monocyte % 8.5 2.0 - 12.0 % CERNER MILLENNIUM Monocyte Abs 1.0 0.2 - 1.0 x10(3)/mc L CERNER MILLENNIUM Eos % 3.2 0.0 - 7.0 % CERNER MILLENNIUM Eosinophils Abs 0.4 0.0 - 0.5 x10(3)/mc L CERNER MILLENNIUM Basophil % 0.3 0.0 - 2.0 % CERNER MILLENNIUM Baso Absolute 0.0 0.0 - 0.2 x10(3)/mc L CERNER MILLENNIUM Immature Gran % 0.70(H) 0.00 - 0.66 % CERNER MILLENNIUM Comment: Immature granulocytes(IG's)percentage and absolute count will include metamyelocytes, myelocytes, and promyelocytes. Blood smears from CBCs yielding IG's will be scanned manually for concordance. If this scan disagrees with the automated IG or if promyelocytes are noted, a manual differential will be performed. Immature Gran Absolute 0.08(H) 0.00 - 0.05 x10(3)/mc L CERNER MILLENNIUM Blood specimen (specimen) 10/06/2013 4:40 AM EDT 10/06/2013 4:45 AM EDT Narrative Resulting Agency Comment Spec In Lab Mare Smith MD HEMATOLOGY ORDERABLE S Performing Organization Address City/[facility]/ZIP Co de Phone Number DARIUS MONTENEGROENNIUM * (ABNORMAL) Hemogram (10/06/2013 4:40 AM EDT) White Blood Cell 11.8 4.5 - 13.0 x10(3)/mc L CERNER MILLENNIUM Red Blood Cell 3.92(L) 4.10 - 5.10 x10(6)/mc L CERNER MILLENNIUM Hemoglobin 10.5(L) 12.0 - 16.0 gm/dL CERNER MILLENNIUM Hematocrit 32.7(L) 36.0 - 46.0 % CERNER MILLENNIUM Mean Cell Volume 83.4 76.0 - 98.0 fL CERNER MILLENNIUM Mean Cell Hemoglobin 26.8 25.0 - 35.0 pg CERNER MILLENNIUM Mean Cell Hemoglobin Concentration 32.1 32.0 - 36.5 gm/dL CERNER MILLENNIUM Platelet 269 145 - 370 x10(3)/mc L CERNER MILLENNIUM RDW Standard Deviation 46.3(H) 35.0 - 46.0 fL CERNER MILLENNIUM RDW coefficient of variation 15.1(H) 10.9 - 14.4 % CERNER MILLENNIUM Mean Platelet Volume 10.5 9.0 - 12.0 fL CERNER MILLENNIUM Blood specimen (specimen) 10/06/2013 4:40 AM EDT 10/06/2013 4:45 AM EDT Narrative Resulting Agency Comment Spec In Lab Mare Smith MD HEMATOLOGY ORDERABLE S Performing Organization Address [place]/[facility]/ZIP Co de Phone Number DARIUS WEINBERGIUM * (ABNORMAL) Basic Metabolic Panel (non-fasting) (10/06/2013 4:40 AM EDT) Glucose 93 60 - 199 mg/dL CERNER MILLENNIUM Comment:Diabetes: >=200 mg/d L plus symptoms Blood Urea Nitrogen 9(L) 10 - 20 mg/dL CERNER MILLENNIUM Creatinine 0.56 0.20 - 0.70 mg/dL CERNER MILLENNIUM Comment: Please note that the pediatric reference intervals supplied above were not validated [place] [facility] Results from pediatric patients should be interpreted in conjunction to the patient's age, height and muscle mass. Sodium 137 135 - 145 mmol/L CERNER MILLENNIUM Potassium 4.3 3.5 - 5.0 mmol/L CERNER MILLENNIUM Comment: Please note: ??Patients with WBC >100,000 may have falsely elevated Potassium levels. ??For accurate Potassium quantification in these patients send serum separator tube (gold top) for subsequent determinations. ??Contact the Clinical Chemistry Laboratory if there are any questions. Chloride 102 98 - 107 mmol/L CERNER MILLENNIUM Carbon Dioxide 21(L) 22 - 31 mmol/L CERNER MILLENNIUM Anion Gap 14 5 - 15 mmol/L CERNER MILLENNIUM Calcium 9.2 8.5 - 10.5 mg/dL CERNER MILLENNIUM Est Glomerular Filtration Rate See note >=60 CERNER MILLENNIUM Comment: Calculated GFR not appropriate for patients less than 18 years of age. This estimated GFR (eGFR) value was calculated using the MDRD equation which has been validated on patients between the ages of 18 and 70. The MDRD should not be used to assess kidney function in patients < 18 years of age or in patients with extremes of body mass, or in patients with acute kidney failure. This value should be multiplied by 1.2 for patients. For further information please copy and paste the following links into your internet browser. http://[employer]/DHnkdep http://[employer]/DHMCnkf Blood specimen (specimen) 10/06/2013 4:40 AM EDT 10/06/2013 4:45 AM EDT Narrative Resulting Agency Comment Spec In Lab Alexandr Castaneda MD [facility]MISTRY [facility]AB LES [facility] * Antibody screen (10/05/2013 6:00 PM EDT) Ab Screen Interp Negative CERNER MILLENNIUM Expires at [id number] on: [id number] CERNER MILLENNIUM Blood specimen (specimen) 10/05/2013 6:00 PM EDT 10/05/2013 6:21 PM EDT Narrative Resulting Agency Comment Spec In Lab Gloria Menard MD BLOOD BANK LAB ORDER JERRY DARIUS MONTENEGROENNIUM * ABO/Rh Typing (10/05/2013 6:00 PM EDT) Pathologist [facility] ABORH Type B Pos CERNER MONIENNIUM Blood specimen (specimen) 10/05/2013 6:00 PM EDT 10/05/2013 6:21 PM EDT Narrative Resulting Agency Comment Spec In Lab Gloria Menard MD BLOOD BANK LAB ORDER JERRY Performing Organization Address [place]/[facility] Co de Phone Number CERJESUS MONTENEGROENNIUM * (ABNORMAL) Differential, Automated (10/05/2013 3:30 AM EDT) Pathologist [facility] Neutrophil % 62.4 37.0 - 77.0 % CERNER MILLENNIUM Neutrophil Absolute 6.29 1.50 - 8.00 x10(3)/mc L CERNER MILLENNIUM Lymph % 25.3 20.0 - 50.0 % CERNER MILLENNIUM Lymphocytes Abs 2.6 1.2 - 5.2 x10(3)/mc L CERNER MILLENNIUM Monocyte % 7.7 2.0 - 12.0 % CERNER MILLENNIUM Monocyte Abs 0.8 0.2 - 1.0 x10(3)/mc L CERNER MILLENNIUM Eos % 3.5 0.0 - 7.0 % CERNER MILLENNIUM Eosinophils Abs 0.4 0.0 - 0.5 x10(3)/mc L CERNER MILLENNIUM Basophil % 0.2 0.0 - 2.0 % CERNER MILLENNIUM Baso Absolute 0.0 0.0 - 0.2 x10(3)/mc L CERNER MILLENNIUM Immature Gran % 0.90(H) 0.00 - 0.66 % CERNER MILLENNIUM Comment: Immature granulocytes(IG's)percentage and absolute count will include metamyelocytes, myelocytes, and promyelocytes. Blood smears from CBCs yielding IG's will be scanned manually for concordance. If this scan disagrees with the automated IG or if promyelocytes are noted, a manual differential will be performed. Immature Gran Absolute 0.09(H) 0.00 - 0.05 x10(3)/mc L CERNER MILLENNIUM Blood specimen (specimen) 10/05/2013 3:30 AM EDT 10/05/2013 4:05 AM EDT Narrative Resulting Agency Comment Spec In Lab Mare Smith MD HEMATOLOGY ORDERABLE S CERNER MILLENNIUM * (ABNORMAL) Hemogram (10/05/2013 3:30 AM EDT) White Blood Cell 10.1 4.5 - 13.0 x10(3)/mc L CERNER MILLENNIUM Red Blood Cell 3.74(L) 4.10 - 5.10 x10(6)/mc L CERNER MILLENNIUM Hemoglobin 9.9(L) 12.0 - 16.0 gm/dL CERNER MILLENNIUM Hematocrit 31.5(L) 36.0 - 46.0 % CERNER MILLENNIUM Mean Cell Volume 84.2 76.0 - 98.0 fL CERNER MILLENNIUM Mean Cell Hemoglobin 26.5 25.0 - 35.0 pg CERNER MILLENNIUM Mean Cell Hemoglobin Concentration 31.4(L) 32.0 - 36.5 gm/dL CERNER MILLENNIUM Platelet 264 145 - 370 x10(3)/mc L CERNER MILLENNIUM RDW Standard Deviation 46.3(H) 35.0 - 46.0 fL CERNER MILLENNIUM RDW coefficient of variation 15.1(H) 10.9 - 14.4 % CERNER MILLENNIUM Mean Platelet Volume 10.4 9.0 - 12.0 fL CERNER MILLENNIUM Blood specimen (specimen) 10/05/2013 3:30 AM EDT 10/05/2013 4:05 AM EDT Narrative Resulting Agency Comment Spec In Lab Mare Smith MD HEMATOLOGY ORDERABLE S DARIUS KEITH * (ABNORMAL) Basic Metabolic Panel (non-fasting) (10/05/2013 3:30 AM EDT) Glucose 79 60 - 199 mg/dL CERNER MILLENNIUM Comment:Diabetes: >=200 mg/d L plus symptoms Blood Urea Nitrogen 8(L) 10 - 20 mg/dL CERNER MILLENNIUM Creatinine 0.57 0.20 - 0.70 mg/dL CERNER MILLENNIUM Comment: Please note that the pediatric reference intervals supplied above were not [place] [facility] Results from pediatric patients should be interpreted in conjunction to the patient's age, height and muscle mass. Sodium 138 135 - 145 mmol/L CERNER MILLENNIUM Potassium 3.9 3.5 - 5.0 mmol/L CERNER MILLENNIUM Comment: Please note: ??Patients with WBC >100,000 may have falsely elevated Potassium levels. ??For accurate Potassium quantification in these patients send serum separator tube (gold top) for subsequent determinations. ??Contact the Clinical Chemistry Laboratory if there are any questions. Chloride 103 98 - 107 mmol/L CERNER MILLENNIUM Carbon Dioxide 22 22 - 31 mmol/L CERNER MILLENNIUM Anion Gap 13 5 - 15 mmol/L CERNER MILLENNIUM Calcium 8.9 8.5 - 10.5 mg/dL CERNER MILLENNIUM Est Glomerular Filtration Rate See note >=60 CERNER MILLENNIUM Comment: Calculated GFR not appropriate for patients less than 18 years of age. This estimated GFR (eGFR) value was calculated using the MDRD equation which has been validated on patients between the ages of 18 and 70. The MDRD should not be used to assess kidney function in patients < 18 years of age or in patients with extremes of body mass, or in patients with acute kidney failure. This value should be multiplied by 1.2 for patients. For further information please copy and paste the following links into your internet browser. http://[employer]/DHnkdep http://[employer]/DHMCnkf Blood specimen (specimen) 10/05/2013 3:30 AM EDT 10/05/2013 4:05 AM EDT Narrative Resulting Agency Comment Spec In Lab Alexandr Castaneda MD CHEMISTRY ORDERAB LES Performing Organization Address [place]/[facility] de Phone Number CERJESUS WEINBERGIUM * GC/Chlam (10/05/2013 12:55 AM EDT) GC Gene Amp Negative Negative CERNER MILLENNIUM Comment: The only FDA approved specimen types for this assay are cervix, vagina, urethra and urine. ??The sensitivity and specificity of the assay for other specimen types has not been determined. GC Source Urine CERNER MILLENNIUM Chlamydia Gene Amp Negative Negative CERNER MILLENNIUM Comment: The only FDA approved specimen types for this assay are cervix, vagina, urethra and urine. ??The sensitivity and specificity of the assay for other specimen types has not been determined. Chlm Source Urine CERNER MILLENNIUM Specimen of unknown material (specimen) 10/05/2013 12:55 AM EDT 10/05/2013 7:20 AM EDT Comment:Dirty urine Narrative Resulting Agency Comment Spec In Lab Mare Smith MD MICROBIOLOGY - GENER AL ORDERABLES Performing Organization Address [place]/[facility] de Phone Number CERJESUS KEITH * (ABNORMAL) Urinalysis with microscopic (10/05/2013 12:54 AM EDT) Glucose, Urine Dipstick Negative Negative mg/dL CERNER MILLENNIUM Protein, Urine Dipstick Negative Negative mg/dL CERNER MILLENNIUM Bilirubin, Urine Dipstick Negative Negative mg/dL CERNER MILLENNIUM Comment: Clinical correlation required for positive Urine Bilirubin results as false positive may occur with some drugs and drug related products. If a false positive is suspected a serum total bilirubin should be considered if clinically indicated. Urobilinogen, Urine Dipstick Normal Normal mg/dL CERNER MILLENNIUM pH, Urn (dipstick) 7.0 5.0 - 8.0 CERNER MILLENNIUM Blood, Urine Dipstick Negative Negative mg/dL CERNER MILLENNIUM Ketone, Urine Dipstick Negative Negative mg/dL CERNER MILLENNIUM Nitrite, Urine Dipstick Negative Negative CERNER MILLENNIUM Leukocytes, Urine Dipstick Negative Negative mcL CERNER MILLENNIUM Appearance, Urine Dipstick Hazy(A) Clear CERNER MILLENNIUM Specific Velma Urine Automated 1.008 1.002 - 1.030 CERNER MILLENNIUM Color, Urine Dipstick Light Yellow Yellow CERNER MILLENNIUM RBC, Urine Not Present 0 - 4 CERNER MILLENNIUM WBC, Urine 2 0 - 5 /HPF CERNER MILLENNIUM Bacteria, Urine Many /HPF CERN ER MILLENNIUM Squamous Epithelial Cells, Urine 1 <=4 /HPF CERNER MILLENNIUM Amorphous Crystals, Urine Rare(A) None /HPF CERNER MILLENNIUM Urine specimen (specimen) 10/05/2013 12:54 AM EDT 10/05/2013 1:11 AM EDT Narrative Resulting Agency Comment Spec In Lab Mare Smith MD URINE ORDERABLES Performing Organization Address [place]/[facility] Co de Phone Number DARIUS MONTENEGROENNIUM * Group B Streptococcus Screen (10/04/2013 9:29 PM EDT) GBS Screen Neg CERNER MILLENNIUM Pooled specimen from vaginal introitus and rectal swab (specimen) 10/04/2013 9:29 PM EDT 10/04/2013 9:47 PM EDT Comment:Penicillin Allergy?- >No Narrative Resulting Agency Comment Spec In Lab Mare Smith MD MICROBIOLOGY - GENER AL ORDERABLES Performing Organization Address [place]/[facility] Co de Phone Number DARIUS WEINBERGIUM * Group B Strep Culture Screen (10/04/2013 9:29 PM EDT) Group B Streptococcus Culture ? Patient Name: MARY PORRAS ? Ordered By: MARE SMITH ? MR#: [id number] ?LOC: ??[facility] ? /Sex: ??1995 (18 years), ? Female ? PROCEDURE: Group B Streptococcus Culture ?SOURCE: Vag/Rectal ? COLLECTED: 10/04/2013 21:29 ?FREE TEXT SOURCE: Penicillin Allergy?->No ? STARTED: 10/04/2013 21:47 ? FINAL REPORT ? Final Report ? Verified: 014 10:13 ? No Group B Streptococci isolated ? PRELIMINARY REPORT ? Preliminary Report ? Verified: 014 10:22 ? Culture in progress ? [facility] Pooled specimen from vaginal introitus and rectal swab (specimen) 10/04/2013 9:29 PM EDT 10/04/2013 9:47 PM EDT Comment:PENICILLIN ALLERGY?- >NO Narrative Resulting Agency Comment Spec In Lab Mare Smith MD MICROBIOLOGY - GENER AL ORDERABLES Performing Organization Address City/State/[facility] Co de Phone Number [facility] * (ABNORMAL) - Subsequent External Results (08/24/2013) Hemoglobin 12.0 - 16.0 Hematocrit 36.0 - 46.0 Platelet GBS Screen Protein, 24 Hour Urine Creatinine, 24 Hour Urine Creatinine Aspartate Aminotransferase 2 - 40 Alanine Aminotransferase 3 - 30 Uric Acid Gluc Baseline Glucose 1 hour 106(Exter nal Lab) Glucose 2 hour Glucose 3 hour Oral Glucose Dose Protein / Creatinine Ratio, Urine 08/24/2013 Historical Provider POINT OF CARE LYNN T ORDERABLES * (ABNORMAL) - Initial External Results (06/22/2013) ABORH Type B+([facility] Work[facility] al Lab) Ab Screen Interp Negative( External [...] 06/22/2013 Historical Provider POINT OF CARE LYNN T ORDERABLES documented in this encounter Visit Diagnoses Diagnosis High risk teen - Primary Supervision of other high-risk Cardiomyopathy Other primary cardiomyopathies High risk teen , third trimester High risk teen , unspecified trimester Sinus tachycardia Other specified cardiac dysrhythmias Cardiomyopathy Other primary cardiomyopathies Sinus tachycardia Other specified cardiac dysrhythmias documented in this encounter Administered Medications Inactive Administered Medications - up to 3 most recent administrations Medication Order MAR Action Action Date Dose Rate Site acetaminophen (TYLENOL) tablet 650 mg 650 mg (6 mg/kg/dose), Oral, EVERY 6 HOURS PRN, Starting on Wed10/05/13 at 1918, Until Wed10/06/13 at 0057, Pain, Not more than 3g in 24h., Maximum dose of acetaminophen is 90 mg/kg (up to 4000 mg maximum) from all sources in 24 hours., Routine Given 10/05/2013 7:51 PM EDT 650 mg acetaminophen (TYLENOL) tablet 650 mg 650 mg (6 mg/kg/dose), Oral, EVERY 4 HOURS PRN, Starting on Wed10/06/13 at 0100, Until Wed10/12/13 at 2008, Pain, Not more than 3g in 24h., Maximum dose of acetaminophen is 90 mg/kg (up to 4000 mg maximum) from all sources in 24 hours., Routine Given 10/07/2013 4:53 PM EDT 650 mg Given 10/06/2013 10:30 AM EDT 650 mg Given 10/06/2013 1:23 AM EDT 650 mg camphor-menthol (SARNA) lotion Topical (Top), 3 TIMES DAILY PRN, Itching, Starting on Wed10/09/13 at 1811, Until Wed10/12/13 at 2008 Given 10/10/2013 9:17 PM EDT Given 10/10/2013 6:08 AM EDT Given 10/09/2013 9:06 PM EDT dinoprostone (CERVIDIL) vaginal insert 10 mg 10 mg (0.0923 mg/kg/dose), Vaginal, ONCE, 1 dose, On Wed10/06/13 at 2200, Routine Given 10/06/2013 10:00 PM EDT 10 mg dinoprostone (CERVIDIL) vaginal insert 10 mg 10 mg (0.0923 mg/kg/dose), Vaginal, EVERY 12 HOURS PRN, Starting on Wed10/06/13 at 2034, Until Wed10/08/13 at 0841, until active labor, Routine Given 10/06/2013 10:00 PM EDT 10 mg docusate sodium (COLACE) capsule 100 mg 100 mg (0.947 mg/kg/dose), Oral, 2 TIMES DAILY, First dose on Wed10/11/13 at 1445, Until Discontinued, Routine Given 10/12/2013 8:31 AM EDT 100 mg Given 10/11/2013 4:47 PM EDT 100 mg enalapril (VASOTEC) tablet 2.5 mg 2.5 mg (0.0237 mg/kg/dose), Oral, 2 TIMES DAILY, First dose on Wed10/12/13 at 1100, Until Discontinued, Routine Given 10/12/2013 3:42 PM EDT 2.5 mg enoxaparin (LOVENOX) injection 40 mg 40 mg (0.369 mg/kg/dose), Subcutaneous, ONCE, 1 dose, On Wed10/10/13 at 0930, Routine Given 10/10/2013 9:57 AM EDT 40 m g enoxaparin (LOVENOX) injection 40 mg 40 mg (0.379 mg/kg/dose), Subcutaneous, DAILY, First dose (after last reorder) on Wed10/11/13 at 1600, Until Discontinued, Routine Given 10/12/2013 8:32 AM EDT 40 mg Given 10/11/2013 5:06 PM EDT 40 mg fentaNYL 2 mcg/mL, BUpivacaine (MARCAINE) 0.125% (1.25 mg/mL)(1/8%) in sodium chloride 0.9% 250 mL epidural Epidural, Maximum rate for continuous infusion 14 mL per hour Patient Controlled Epidural Analgesia (PCEA): Maintain continuous infusion plus: PCEA bolus volume of 5 mL Maximum total epidural rate (continuous and PCEA bolus) is 25 mL per hour Bolus lockout of 20 minutes, Recovery (Recovery-Hospital Unit) New Bag 10/07/2013 8:27 PM EDT 10 mL/hr 10 mL/hr fentaNYL 2 mcg/mL, BUpivacaine (MARCAINE) 0.125% (1.25 mg/mL)(1/8%) in sodium chloride 0.9% 250 mL epidural Epidural, Maximum rate for continuous infusion 14 mL per hour Patient Controlled Epidural Analgesia (PCEA): Maintain continuous infusion plus: PCEA bolus volume of 5 mL Maximum total epidural rate (continuous and PCEA bolus) is 25 mL per hour Bolus lockout of 20 minutes Rate/Dose Verify 10/09/2013 6:50 AM EDT 7 mL/hr 7 mL/hr New Bag 10/09/2013 12:35 AM EDT 7 mL/hr 7 mL/hr Rate/Dose Verify 10/08/2013 11:20 PM EDT 7 mL/hr 7 mL/h r fentaNYL 50mcg/mL injection 50 mcg (0.461 mcg/kg), Intravenous, ONCE PRN, 1 dose, Starting on Wed10/06/13 at 0627, Until Wed10/06/13 at 0600, premedication prior to cervical exam, Routine Given 10/06/2013 6:00 AM EDT 50 mcg fentaNYL 50mcg/mL injection 50 mcg (0.461 mcg/kg), Intravenous, ONCE PRN, 1 dose, Starting on Wed10/06/13 at 1119, Until Wed10/06/13 at 1128, premedication prior to cervical exam, Routine Given 10/06/2013 11:28 AM EDT 50 mcg fentaNYL 50mcg/mL injection 50 mcg (0.461 mcg/kg), Intravenous, ONCE, 1 dose, On Wed10/06/13 at 1645, Routine Given 10/06/2013 4:32 PM EDT 50 mcg fentaNYL 50mcg/mL injection 50 mcg (0.461 mcg/kg), Intravenous, ONCE PRN, 1 dose, Starting on Wed10/06/13 at 2033, Until Wed10/06/13 at 2200, premedication prior to cervical exam, Routine Given 10/06/2013 10:00 PM EDT 50 mcg fentaNYL 50mcg/mL injection 50 mcg (0.461 mcg/kg), Intravenous, ONCE, 1 dose, On 10/07/13 at 1030, Routine Given 10/07/2013 11:15 AM EDT 50 mcg fentaNYL Citrate (PF) 100 mcg/2 mL (50 mcg/mL) syringe Starting on Wed10/06/13 at 0652, 1 dose, Until Wed10/06/13 at 0659, GRACE MALDONADO: cabinet override Given 10/06/2013 6:59 AM EDT 50 mcg furosemide (LASIX) tablet 20 mg 20 mg (0.19 mg/kg/dose), Oral, ONCE, 1 dose, On [place] 10/12/13 at 1400, Routine Given 10/12/2013 3:41 PM EDT 20 mg HYDROmorphone (DILAUDID) 1 mg/mL DIRECTOR INDEPENDENT 30 mL Intravenous, DIRECTOR INDEPENDENT ONLY, Starting on Wed10/08/13 at 0730, Until Wed10/09/13 at 0918 Rate/Dose Verify 10/08/2013 11:18 PM EDT New Syringe/Cartridge 10/08/2013 8:03 AM EDT 30 mg HYDROmorphone (DILAUDID) 2 mg/mL injection 1 dose, Starting on Wed10/08/13 at 0640, Until Wed10/08/13 at 0648, JULINAA GERARD: cabinet override HYDROmorphone (DILAUDID) injection 0.2 mg 0.2 mg (0.18415 mg/kg/dose), Intravenous, EVERY 3 HOURS PRN, 2 doses, Starting on Wed10/08/13 at 0634, Until Wed10/08/13 at 1301, Pain, Routine Given 10/08/2013 6:48 AM EDT 0.2 mg HYDROmorphone (DILAUDID) injection 0.2-0.4 mg 0.2-0.4 mg (0.56938-9.23991 mg/kg/dose), Intravenous, EVERY 2 HOURS PRN, 5 doses, Starting on Wed10/09/13 at 1037, Until Wed10/11/13 at 0826, Pain, Routine Given 10/09/2013 6:15 PM EDT 0.4 mg Given 10/09/2013 1:50 PM EDT 0.2 mg ibuprofen (ADVIL;MOTRIN) tablet 600 mg 600 mg (5.68 mg/kg/dose), Oral, EVERY 6 HOURS PRN, Starting on Wed10/11/13 at 0826, Until [place] 10/12/13 at 2008, Pain, Administer orally with milk or food to minimize GI irritation, Routine Given 10/12/2013 8:31 AM EDT 600 mg ketorolac (TORADOL) injection 30 mg 30 mg (0.277 mg/kg/dose), Intravenous, ONCE, 1 dose, On Wed10/08/13 at 0700, Routine Given 10/08/2013 7:23 AM EDT 30 mg lactated ringers infusion 250 mL 250 mL, Intravenous, ONCE, 1 dose, On [facility] 10/07/13 at 2115 Rate/Dose Change 10/07/2013 9:15 PM EDT 250 mLs lactated ringers infusion 500 mL 500 mL, Intravenous, CONTINUOUS, Starting on Wed10/07/13 at 2215, Until [place] 10/08/13 at 0841 Rate/Dose Change 10/07/2013 9:40 PM EDT 500 mLs lactated ringers infusion 50 mL/hr, Intravenous, CONTINUOUS, Starting on Wed10/07/13 at 1715, Until Wed10/09/13 at 1028, While on pitocin Rate/Dose Verify 10/09/2013 6:50 AM EDT 20 mL/hr 20 mL/hr Rate/Dose Verify 10/08/2013 11:20 PM EDT 20 mL/hr 20 mL/ hr Rate/Dose Verify 10/08/2013 11:19 PM EDT 20 mL/hr 20 mL/ hr lisinopril (PRINIVIL;ZESTRIL) tablet 10 mg 10 mg (0.0947 mg/kg/dose), Oral, DAILY, First dose on Wed10/11/13 at 1700, Until Discontinued, Routine Given 10/11/2013 6:18 PM EDT 10 mg metoprolol (LOPRESSOR) pre-split tablet 12.5 mg 12.5 mg (0.115 mg/kg/dose), Oral, 2 TIMES DAILY, First dose on Wed10/05/13 at 0900, Until Discontinued, Routine Given 10/09/2013 8:33 AM EDT 12.5 mg Given 10/08/2013 8:12 PM EDT 12.5 mg Given 10/08/2013 10:15 AM EDT 12.5 mg metoprolol (LOPRESSOR) pre-split tablet 12.5 mg 12.5 mg (0.115 mg/kg/dose), Oral, EVERY 6 HOURS SCHEDULED, First dose (after last modification) on Wed10/09/13 at 1200, Until Discontinued, Hold for SBP<90 or HR<60, Routine Given 10/10/2013 6:05 AM EDT 12.5 mg Given 10/09/2013 11:27 PM EDT 12.5 mg Given 10/09/2013 6:01 PM EDT 12.5 mg metoprolol (LOPRESSOR) pre-split tablet 12.5 mg 12.5 mg (0.114 mg/kg/dose), Oral, EVERY 6 HOURS SCHEDULED, First dose (after last modification) on Wed10/10/13 at 1300, Until Discontinued, Hold for SBP<90 or HR<60, Routine Given 10/11/2013 6:22 AM EDT 12.5 mg Given 10/11/2013 12:10 AM EDT 12.5 mg Given 10/10/2013 5:28 PM EDT 12.5 mg metoprolol tartrate (LOPRESSOR) tablet 25 mg 25 mg (0.237 mg/kg/dose), Oral, EVERY 6 HOURS SCHEDULED, First dose (after last modification) on Wed10/11/13 at 1200, Until Discontinued, Hold for SBP<90 or HR<60, Routine Given 10/12/2013 11:53 AM EDT 25 mg Given 10/11/2013 11:02 PM EDT 25 mg Given 10/11/2013 5:07 PM EDT 25 mg misoprostol pre-split tablet 25 mcg 25 mcg (0.231 mcg/kg), Vaginal, EVERY 4 HOURS PRN, 6 doses, Starting on Wed10/05/13 at 1800, Until Wed10/06/13 at 1635, until favorable cervix, Until active labor., Routine Given 10/06/2013 4:35 PM EDT 25 mcg Given 10/06/2013 11:33 AM EDT 25 mcg Given 10/06/2013 7:02 AM EDT 25 mcg oxyCODONE (ROXICODONE) immediate release tablet 5-10 mg 5-10 mg (0.0461-0.0923 mg/kg/dose), Oral, EVERY 3 HOURS PRN, Starting on Wed10/09/13 at 1018, Until Wed10/12/13 at 2008, Pain, Routine Given 10/12/2013 8:29 AM EDT 5 m g Given 10/12/2013 1:37 AM EDT 10 mg Given 10/11/2013 2:25 PM EDT 10 mg oxytocin (PITOCIN) 30 units in sodium chloride 0.9% 500 mL infusion 1-40 yaya-units/min (rounded to 1-40 mL/hr), Intravenous, CONTINUOUS, Starting on Wed10/07/13 at 1500, Until Wed10/08/13 at 0841, Piggyback into Lactated Ringers; Start at 2 milliunits/minute and increase by 2 milliunits/minutes every 30 minutes to achieve contractions that are every 2-3 minutes, lasting 60-90 seconds with 1 minute resting tone between contractions palpating strong. Oxytocin may not be initiated until: - 1 hour after Cervidil is removed - 4 hours after last minute misoprostol dose is given, Routine Rate/Dose Verify 10/08/2013 6:00 AM EDT 125 yaya-units/min 125 mL/hr Restarted 10/08/2013 3:30 AM EDT 2 yaya-units/min 2 mL/h r Rate/Dose Change 10/08/2013 1:26 AM EDT 4 yaya-units/min 4 mL/hr pediatric multivitamin pedi chewable tablet 1 tablet 1 tablet, Oral, DAILY, First dose on Wed10/05/13 at 1100, Until Discontinued Given 10/12/2013 8:29 AM EDT 1 tablet Given 10/11/2013 12:03 PM EDT 1 tablet Given 10/10/2013 8:49 AM EDT 1 tablet penicillin G potassium 3 million units in dextrose 5% 50 mL 3 Million Units (0.0277 Million Units/kg), Intravenous, EVERY 4 HOURS, First dose on Wed10/06/13 at 0000, Until Discontinued, Until delivery for GBS prophylaxis, Indication for (Active or Suspected): Prophylaxis Given 10/07/2013 4:30 PM EDT 3 Million Units Given 10/07/2013 12:06 PM EDT 3 Million Units Given 10/07/2013 7:47 AM EDT 3 Million Units penicillin G potassium 5 million unit vial attach to sodium chloride 0.9% 100 mL Mini-Bag Plus 5 Million Units (0.0461 Million Units/kg), Intravenous, ONCE, 1 dose, On Angelita 10/05/13 at 1830, Administer over 60 Minutes, Attach to 100 mL sodium chloride 0.9% Mini-Bag Plus, Indication for (Active or Suspected): Prophylaxis Given 10/05/2013 7:52 PM EDT 5 Million Units 110 mL/hr polyethylene glycol (MIRALAX) packet 17 g 17 g (0.161 g/kg), Oral, DAILY, First dose on Wed10/11/13 at 1600, Until Discontinued, Routine Given 10/11/2013 4:47 PM EDT 17 g sodium chloride 0.9 % flush 5 mL 5 mL, Intravenous, 2 TIMES DAILY, First dose on Wed10/04/13 at 2100, Until Discontinued, Routine Given 10/12/2013 8:24 AM EDT 5 mLs Given 10/11/2013 9:00 PM EDT 5 mLs Given 10/11/2013 9:00 AM EDT 5 mLs zolpidem (AMBIEN) tablet 10 mg 10 mg (0.0923 mg/kg/dose), Oral, ONCE PRN, 1 dose, Starting on Wed10/06/13 at 2220, Until Wed10/06/13 at 2228, Sleep, Routine Given 10/06/2013 10:28 PM EDT 10 mg documented in this encounter Active and Recently Administered Medications Times are shown in EDT. Scheduled Medication Order 10/10/2013 10/11/2013 10/12/2013 docusate sodium (COLACE) capsule 100 mg (CANCELED) 100 mg (0.947 mg/kg/dose), Oral, 2 TIMES DAILY, First dose on Wed10/11/13 at 1445, Until Discontinued, Routine 1647 (Given - Provider: Kami Valladares RN)2100 (Not Given - Provider: Torsten Harden RN - Reason: See comment - Comment: given by WILLOW Patton during day shift) 0831 (Given - Provider: Marita Palma) enalapril (VASOTEC) tablet 2.5 mg 2.5 mg (0.0237 mg/kg/dose), Oral, 2 TIMES DAILY, First dose on Wed10/12/13 at 1100, Until Discontinued, Routine 1542 (Given - Provider: Clarence Otto RN) enoxaparin (LOVENOX) injection 40 mg (COMPLETED) 40 mg (0.369 mg/kg/dose), Subcutaneous, ONCE, 1 dose, On Wed10/10/13 at 0930, Routine 0957 (Given - Provider: Lizzette Posey RN) enoxaparin (LOVENOX) injection 40 mg (CANCELED) 40 mg (0.379 mg/kg/dose), Subcutaneous, DAILY, First dose (after last reorder) on Wed10/11/13 at 1600, Until Discontinued, Routine 1706 (Given - Provider: Kami Valladares RN - Comment: pt was in icn visiting ) 0832 (Given - Provider: Marita Palma) furosemide (LASIX) tablet 20 mg (COMPLETED) 20 mg (0.19 mg/kg/dose), Oral, ONCE, 1 dose, On Wed10/12/13 at 1400, Routine 1541 (Given - Provider: Clarence Otto RN) lisinopril (PRINIVIL;ZESTRIL) tablet 10 mg (CANCELED) 10 mg (0.0947 mg/kg/dose), Oral, DAILY, First dose on Wed10/11/13 at 1700, Until Discontinued, Routine 1818 (Given - Provider: Kami Valladares RN - Comment: medication arrived at this time from pharmacy) 0900 (Not Given - Provider: Marita Palma - Reason: Contraindicated) metoprolol (LOPRESSOR) pre-split tablet 12.5 mg (CANCELED) 12.5 mg (0.115 mg/kg/dose), Oral, EVERY 6 HOURS SCHEDULED, First dose (after last modification) on Wed10/09/13 at 1200, Until Discontinued, Hold for SBP<90 or HR<60, Routine 0605 (Given - Provider: Dannielle Drummond, WILLOW) metoprolol (LOPRESSOR) pre-split tablet 12.5 mg (CANCELED) 12.5 mg (0.114 mg/kg/dose), Oral, EVERY 6 HOURS SCHEDULED, First dose (after last modification) on Wed10/10/13 at 1300, Until Discontinued, Hold for SBP<90 or HR<60, Routine 1214 (Given - Provider: Lizzette Posey RN)1728 (Given - Provider: Lizzette Posey RN) 0010 (Given - Provider: Dannielle Drummond, WILLOW)0622 (Given - Provider: Dannielle Drummond, WILLOW) metoprolol tartrate (LOPRESSOR) tablet 25 mg (CANCELED) 25 mg (0.237 mg/kg/dose), Oral, EVERY 6 HOURS SCHEDULED, First dose (after last modification) on Wed10/11/13 at 1200, Until Discontinued, Hold for SBP<90 or HR<60, Routine 1203 (Given - Provider: Jorgito Li RN)1707 (Given - Provider: Kami Valladares RN)2302 (Given - Provider: Torsten Harden RN) 0600 (Due)1153 (Given - Provider: Marita Palma)1800 (Due) pediatric multivitamin pedi chewable tablet 1 tablet (CANCELED) 1 tablet, Oral, DAILY, First dose on Wed10/05/13 at 1100, Until Discontinued 0849 (Given - Provider: Lizzette Posey RN) 1203 (Given - Provider: Jorgito Li RN) 0829 (Given - Provider: Marita Palma) polyethylene glycol (MIRALAX) packet 17 g (CANCELED) 17 g (0.161 g/kg), Oral, DAILY, First dose on Wed10/11/13 at 1600, Until Discontinued, Routine 1647 (Given - Provider: Kami Valladares RN) 0900 (Due) sodium chloride 0.9 % flush 5 mL (CANCELED) 5 mL, Intravenous, 2 TIMES DAILY, First dose on Wed10/04/13 at 2100, Until Discontinued, Routine 0957 (Given - Provider: Lizzette Posey RN)2115 (Given - Provider: Dannielle Drummond RN) 0900 (Given - Provider: Lizzette Posey, WILLOW)2100 (Given - Provider: Torsten Harden, WILLOW) 0824 (Given - Provider: Marita Palma) PRN Medication Order 10/10/2013 10/11/2013 10/12/2013 camphor-menthol (SARNA) lotion (CANCELED) Topical (Top), 3 TIMES DAILY PRN, Itching, Starting on Wed10/09/13 at 1811, Until Wed10/12/13 at 2008 0608 (Given - Provider: Dannielle Drummond RN)2117 (Given - Provider: Dannielle Drummond RN) ibuprofen (ADVIL;MOTRIN) tablet 600 mg (CANCELED) 600 mg (5.68 mg/kg/dose), Oral, EVERY 6 HOURS PRN, Starting on Wed10/11/13 at 0826, Until Wed10/12/13 at 2007, Pain, Administer orally with milk or food to minimize GI irritation, Routine 0831 (Given - Provider: Marita Palma) oxyCODONE (ROXICODONE) immediate release tablet 5-10 mg (CANCELED) 5-10 mg (0.0461-0.0923 mg/kg/dose), Oral, EVERY 3 HOURS PRN, Starting on Wed10/09/13 at 1018, Until Wed10/12/13 at 2007, Pain, Routine 0418 (Given - Provider: Dannielle Drummond RN)0849 (Given - Provider: Lizzette Posey RN)1453 (Given - Provider: Lizzette Posey RN)2121 (Given - Provider: Dannielle Drummond RN) 1425 (Given - Provider: Sylvie Hurst RN) 0137 (Given - Provider: Leslie Tomlinson RN)0829 (Given - Provider: Marita Palma) documented in this encounter Care Teams Director Cardiovascular Relationship Specialty Start Date End Date David Aldrich MD [address] [place] [id number] PCP - General 06/30/13 05/30/18 documented as of this encounter
--- OUTSIDE RECORDS SUMMARY | 2024-01-03 13:13 | XMS_ITS | Encounter Summary ---
[place] [address] Care Team Providers Care Casing Material Weigher Name Role Phone Rustam Coppola MD Primary Care Provider [phone] Encounter Details Date Type Department Care Team (Latest Contact Info) Description 05/09/2014 11:30 AM EST - 05/09/2014 11:59 PM EST Hospital Encounter Non-[place] [phone] HOOF AND SHOE INSPECTOR, Brooke Stuart APRN [address] [place] [address] Cardiomyopathy Discharge Disposition: Home Social History Tobacco [...] 1:00 PM EST Appointment Non-[place] [phone] Anton Márquez MD [facility] [place] [address] 01/27/2024 3:00 PM EST Office Visit Cardiology at [address] [phone] Anton Márquez MD [facility] [place] [address] documented as of this encounter Procedures Procedure Name Priority Date/Time Associated Diagnosis Comments ZIOPATCH Routine 05/09/2014 12:00 PM EST Cardiomyopathy documented in this encounter Results * ZIOPATCH (05/09/2014 12:00 PM EST) Anatomical Region Laterality Modality Other Narrative 05/21/2014 7:57 AM EDT [facility] ? Zio Patch? Ambulatory Cardiac Event Monitor Report Duration of recording ? 3 days, 8 hour(s) ( 05/09/2014 to 05/12/2014) Summary Data Predominant rhythm ? sinus rhythm Maximum sinus rate 181 bpm ? this appears to be a sinus rhythm at 1009 pm on 05/11/2014 Minimum sinus rate 48 bpm ? this appears to be a sinus bradycardia at 155 am on 05/11/2014 Average heart rate 81 bpm Ectopic beats rare VPC? s 0 APC? s No high grade ectopy Triggered and Patient Diary Events There were 1 triggered and 2 patient diary events: The triggered event appears to be sinus rhythm at 90 bpm, with moderate artifact The first of the patient diary entries 'chest pain, pressure, lightheaded, dizzy' correlate with sinus rhythm at 85 bpm The second diary entry occurred outside of the wear period of the Zio Conclusion(s): ?? 1) The predominant rhythm is sinus rhythm 2) No significant dysrhythmias ?? 3) No correlation of symptoms with dysrhythmia Chau Felder MD [facility] ORD ERABLES documented in this encounter Visit Diagnoses Diagnosis Cardiomyopathy Other primary cardiomyopathies documented in this encounter Care Teams Casing Material Weigher Relationship Specialty Start Date End Date Rustam Coppola MD [address] [place] [id number] PCP - General 06/30/13 05/30/18 documented as of this encounter
--- OUTSIDE RECORDS SUMMARY | 2024-01-03 13:13 | XMS_ITS | Encounter Summary ---
Author Organization Formerly [facility] [place] [address] Care Team Providers Care Ball Points Inspector Name Role Phone Rustam Coppola MD Primary Care Provider [phone] Encounter Details Date Type Department Care Team (Late st Contact Info) Description 05/16/2014 Orders Only Cardiology at [address] [phone] Chau Felder MD [facility] [place] [address] Cardiomyopathy Social History Tobacco Use Types Packs/Day Years [...] 1:00 PM EST Appointment [place] [phone] Anton Márquez MD [facility] [address] 01/27/2024 3:00 PM EST Office Visit Cardiology at [address] [phone] Anton Márquez MD [facility] [address] documented as of this encounter Visit Diagnoses Diagnosis Cardiomyopathy Other primary cardiomyopathies documented in this encounter Care Teams Ball Points Inspector Relationship Specialty Start Date End Date Rustam Coppola MD [address] [place] [id number] PCP - General 06/30/13 05/30/18 documented as of this encounter
--- OUTSIDE RECORDS SUMMARY | 2024-01-03 13:13 | XMS_ITS | Encounter Summary ---
[place] [address] Care Team Providers Care Finance Advisor Name Role Phone Rustam Coppola MD Primary Care Provider [phone] Reason for Visit * Reason Onset Date Comments Other 10/08/2016 appointment Encounter Details Date Type Department Care Team (Late st Contact Info) Description 10/08/2016 Telephone Cardiology at [address] [phone] Nancy Ayon Other (appointment) Social History Tobacco Use Types Packs/Day Years [...] Miscellaneous Notes * Telephone Encounter - Nancy Ayon - 10/08/2016 2:41 PM EDT Patient called and left message, would like to schedule appointment. She left the number of [phone]. It rang busy for two attempts and then the trhird attempt it goes into voicemail which doesn't have a greeting it just beeps. Will try to call back to make an appointment. Nancy documented in this encounter Plan of Treatment Upcoming Encounters Date Type Department Care Team (Late st Contact Info) Description 01/27/2024 1:00 PM EST Appointment Non-Invasive [place] [address] Anton Márquez MD [facility] [place] [address] 01/27/2024 3:00 PM EST Office Visit Cardiology at [address] [phone] Anton Márquez MD [facility] [place] [address] documented as of this encounter Visit Diagnoses Not on filedocumented in this encounter Care Teams Finance Advisor Relationship Specialty Start Date End Date Rustam Coppola MD [address] [place] [phone] PCP - General 06/30/13 05/30/18 documented as of this encounter
--- OUTSIDE RECORDS SUMMARY | 2024-01-03 13:13 | XMS_ITS | Encounter Summary ---
[place] [address] Care Team Providers Care Professional Bass Fisherman Name Role Phone Rustam Coppola MD Primary Care Provider [phone] Reason for Visit * Reason Comments Chest Pain Encounter Details Date Type Department Care Team (Late st Contact Info) Description 08/17/2014 10:04 AM EDT - 08/17/2014 12:23 PM EDT [place] [address] Rivka Kc MD [facility] [place] [address] Chest tightness or pressure Discharge Disposition: Home Social History Tobacco Use [...] Sign Reading Time Taken Comments Blood Pressure 100/67 08/17/2014 12:20 PM EDT Pulse 62 08/17/2014 12:20 PM EDT Temperature 36.7 ??C (98.1 ??F) 08/17/2014 10:09 AM E DT Respiratory Rate 16 08/17/2014 12:20 PM EDT Oxygen Saturation 97% 08/17/2014 12:20 PM EDT Inhaled Oxygen Concentration - - Weight - - Height - - Body Mass Index - - documented in this encounter Discharge Instructions * Discharge Instructions* Ayala Donis Tone - 08/17/2014 12:12 PM EDT Images from the original note were not included. Take the 1 mg of Ativan by mouth 30 minutes prior to your MRI for anxiety. Do not drive, drink, make major life decisions or operative machinery with this medication. [facility] Chest Pain: After Your Visit Your Care Instructions There are many things that can cause chest pain. Some are not serious and will get better on their own in a few days. But some kinds of chest pain need more testing and treatment. Your doctor may have recommended a follow-up visit in the next 8 to 12 hours. If you are not getting better, you may need more tests or treatment. Even though your doctor has released you, you still need to watch for any problems. The doctor carefully checked you, but sometimes problems can develop later. If you have new symptoms or if your symptoms do not get better, get medical care right away. If you have worse or different chest pain or pressure that lasts more than 5 minutes or you passed out (lost consciousness), call 911 or seek other emergency help right away. A medical visit is only one step in your treatment. Even if you feel better, you still need to do what your doctor recommends, such as going to all suggested follow-up appointments and taking medicines exactly as directed. This will help you recover and help prevent future problems. How can you care for yourself at home? ?? Rest until you feel better. ?? Take your medicine exactly as prescribed. Call your doctor if you think you are having a problemwith your medicine. ?? Do not drive after taking a prescription pain medicine. When should you call for help? Call 911 if: ?? You passed out (lost consciousness). ?? You have severe difficulty breathing. ?? You have symptoms of a heart attack. These may include: ?? Chest pain or pressure, or a strange feeling in your chest. ?? Sweating. ?? Shortness of breath. ?? Nausea or vomiting. ?? Pain, pressure, or a strange feeling in your back, neck, jaw, or upper belly or in one or both shoulders or arms. ?? Lightheadedness or sudden weakness. ?? A fast or irregular heartbeat. After you call 911, the gasoline truck crane operator may tell you to chew 1 adult-strength or 2 to 4 low-dose aspirin. Wait for an ambulance. Do not try to drive yourself. Call your doctor today if: ?? You have any trouble breathing. ?? Your chest pain gets worse. ?? You are dizzy or lightheaded, or you feel like you may faint. ?? You are not getting better as expected. ?? You are having new or different chest pain. Where can you learn more? Visit our health information library at [email or web address] You can also view health information on AudioTrip, your personal patient account. Log in or sign up today. Enter A120 in the search box to learn more about Chest Pain: After Your Visit. ?? 2851-2021 [employer]. Care instructions adapted under license by [facility]. This care instruction is for use with your licensed healthcare professional. If you have questions about a medical condition or this instruction, always ask your healthcare professional. [employer] disclaims any warranty or liability for your use of this information. Content Version: 10.4.193028; Current as of: August 16, 2013 documented in this encounter Medications at Time of Discharge Medication Sig Dispensed Refills Start Date End Date LORazepam (ATIVAN) 1 mg Tablet Take 1 tablet by mouth once as needed for Anxiety (To take 30 minutes prior to MRI;) for up to 1 dose. 1 tablet 0 08/17/2014 03/29/2017 enalapril (VASOTEC) 2.5 mg Tablet Take 1 tablet by mouth 2 times daily. 180 tablet 3 07/10/2014 03/29/2017 metoprolol succinate (TOPROL-XL) 25 mg Tablet Sustained Release 24 hr Take 1 tablet by mouth daily. 30 tablet 2 05/09/2014 03/29/2017 documented as of this encounter ED Notes * Ayala Donis - 08/18/2014 11:19 AM EDT Mary Porras is an 19 y.o. female who presents to the ED with: Chief Complaint Patient presents with ??? Chest Pain HPI Mary Porras is a 19 y.o. 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 This started acutely while in the MRI scanner today. States has had panic attackspreviously but this was different. Last EF 35%. Has been off her ZEUS and beta sunitha x 3 days per patient I forgot per mother does not like as they decrease her energy. Patient reports resolution of chest pressure upon arrival to ED and denies current SOB. Denies any recent tick bites or rashes. Weight loss of 30 lbs in last 3 months (intentional) Review of Systems: Review of Systems Constitutional: Positive for fatigue. Negative for fever and diaphoresis. Eyes: Negative for visual disturbance. Respiratory: Episode of SOB and chest tightness Cardiovascular: Negative for palpitations. Gastrointestinal: Negative for nausea and vomiting. Musculoskeletal: Negative for neck pain. Skin: Negative for rash. Neurological: Negative for light-headedness. Psychiatric/Behavioral: The patient is nervous/anxious. Patient Vitals for the past 24 hrs: BP Pulse Resp SpO2 08/17/14 1220 100/67 mmHg 62 16 97 % Physical Exam: Physical Exam Constitutional: She is oriented to person, place, and time. She appears well-developed. Female obese, pleasant conversant HENT: Mouth/Throat: Oropharynx is clear and moist. Tongue ring present Eyes: Pupils are equal, round, and reactive to light. Cardiovascular: Normal rate and regular rhythm. No murmur heard. Pulmonary/Chest: Effort normal and breath sounds normal. No stridor. No respiratory distress. She has no wheezes. Abdominal: Soft. She exhibits no distension. Musculoskeletal: No pitting edema Neurological: She is alert and oriented to person, place, and time. Skin: No rash noted. Psychiatric: Appears anxious Nursing note and vitals reviewed. ED Course: - Patient was evaluated and discussed with Dr. Kc - Medications, allergies and past medical history reviewed - Troponin <0.03 - Normal sinus rhythm on monitor - I reviewed the Chest X-ray: no evidence of opacifications concerning for pneumonia or pleural effusions or pulmonary edema MDM: ACS was considered; thought unlikely given her age. Initial troponin negative. No leg edema and no crackles on exam without evidence of edema on chest x-ray acutely worsening CHF thought unlikely. Recommended to patient and mother to stay for second troponin to rule out; however child protective services specialist issues and given her age and low likelihood of ACS Allowed patient to d/c. No hypoxemia, lack of a-fib,and lack of tachycardia with PERC criteria makes PE highly unlikely. With history of anxiety and claustrophobia high on the differential. Assessment and Plan: Assessment: 19 y.o. female with shortness of breath and chest pressure likely secondary to shortness of breath. Plan: - 1mg ativan rx given to patient to take prior to MRI - Follow up with cardiology as scheduled - Return precautions Ayala Donis MD Resident 08/18/14 1151 Associated attestation - Rivka Kc MD - 08/18/2014 11:59 AM EDT ED ATTENDING ATTESTATION NOTE The patient was seen in conjunction with Dr. Donis, the resident physician. I have independently performed the smith portions of the history and physical exam. I have reviewed the nursing notes, vital signs, and all diagnostic studies personally including labs, imaging studies and EKGs. I have discussed the details of the case with the resident and agree with the assessment and plan as described in the resident note above unless noted otherwise below. documented in this encounter Miscellaneous Notes * ED Triage - Benjie Kelley RN - 08/17/2014 10:11 AM EDT To room 4 for triage. Pt was sent over from MRI after she developed some chest pain and shortness of breath. She has a history of CHF. She is Pt is awake, alert and oriented x 3. Skin color is pink warm and dry. 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 Respirations are regular. Breath sounds areclear and equal bilaterally. documented in this encounter Plan of Treatment Upcoming Encounters Date Type Department Care Team (Late st Contact Info) Description 01/27/2024 1:00 PM EST Appointment Non-[place] [address] Anton Márquez MD [facility] [place] [address] 01/27/2024 3:00 PM EST Office Visit Cardiology at [address] [phone] Anton Márqeuz MD [facility] [place] [address] documented as of this encounter Procedures Procedure Name Priority Date/Time Associated Diagnosis Comments XR CHEST PA AND LATERAL STAT 08/17/2014 11:13 AM EDT HEMOGRAM STAT 08/17/2014 10:55 AM EDT DIFFERENTIAL, AUTOMATED STAT 08/17/2014 10:55 AM EDT GOLD TUBE HOLD STAT 08/17/2014 10:55 AM EDT BLUE TUBE HOLD STAT 08/17/2014 10:55 AM EDT CBC (WITH DIFF) STAT 08/17/2014 10:55 AM EDT TROPONIN STAT 08/17/2014 10:55 AM EDT CK STAT 08/17/2014 10:55 AM EDT BASIC METABOLIC PANEL STAT 08/17/2014 10:55 AM EDT EKG 12-LEAD STAT 08/17/2014 10:09 AM EDT POCT URINE STAT 08/17/2014 documented in this encounter Results * XR chest routine PA & lateral (08/17/2014 11:13 AM EDT) Anatomical Region Laterality Modality Chest N/A Radiographic Coco ging 08/17/2014 11:1 3 AM EDT Impressions 08/17/2014 11:34 AM EDT IMPRESSION: Normal chest radiograph This report was reviewed by Leon Zarate at 08/17/2014 11:28 AM Film and interpretation reviewed by the attending Narrative 08/17/2014 11:34 AM EDT EXAMINATION: CHEST ROUTINE 2 VIEWS CLINICAL HISTORY: significant chest pain TECHNIQUE: PA and lateral upright views of the chest COMPARISON: None FINDINGS: The lungs are clear. Cardiomediastinal silhouette, gab, and pulmonary vasculature are normal. No acute osseous abnormalities. Procedure Note Leon Zarate MD - 08/17/2014 EXAMINATION: CHEST ROUTINE 2 VIEWS CLINICAL HISTORY: significant chest pain TECHNIQUE: PA and lateral upright views of the chest COMPARISON: None FINDINGS: The lungs are clear. Cardiomediastinal silhouette, gab, and pulmonary vasculature are normal. No acute osseous abnormalities. IMPRESSION IMPRESSION: Normal chest radiograph This report was reviewed by Leon Zarate at 08/17/2014 11:28 AM Film and interpretation reviewed by the attending Rivka Kc MD IMG DX ORDERABLES * Gold Tube HOLD (08/17/2014 10:55 AM EDT) Gold Hold Sample in lab. DARIUS KEITH Blood specimen (specimen) Venous Draw / Unknown 08/17/2014 10:55 AM EDT 08/17/2014 11:26 AM EDT Rivka Kc MD CHEMISTRY ORDERABLE S DARIUS KEITH * Blue Tube HOLD (08/17/2014 10:55 AM EDT) Blue Hold Sample in lab. DARIUS KEITH Blood specimen (specimen) Venous Draw / Unknown 08/17/2014 10:55 AM EDT 08/17/2014 11:27 AM EDT Rivka Kc MD HEMATOLOGY ORDERABL ES CERNER MILLENNIUM * Differential, Automated (08/17/2014 10:55 AM EDT) Neutrophil % 57.9 % CERNER MILLENNIUM Neutrophil Absolute 4.18 1.50 - 6.30 x10(3)/mcL CERNER MILLENNIUM Lymph % 32.3 % CERNER MILLENNIUM Lymphocytes Abs 2.3 1.0 - 3.6 x10(3)/mcL CERNER MILLENNIUM Monocyte % 5.1 % CERNER MILLENNIUM Monocyte Abs 0.4 0.2 - 1.0 x10(3)/mcL CERNER MILLENNIUM Eos % 4.0 % CERNER MILLENNIUM Eosinophils Abs 0.3 0.0 - 0.5 x10(3)/mcL CERNER MILLENNIUM Basophil % 0.6 % CERNER MILLENNIUM Baso Absolute 0.0 0.0 - 0.2 x10(3)/mcL CERNER MILLENNIUM Immature Gran % 0.10 % CERN ER MILLENNIUM Comment: Immature granulocytes(IG's)percentage and absolute count will include metamyelocytes, myelocytes, and promyelocytes. Blood smears from CBCs yielding IG's will be scanned manually for concordance. If this scan disagrees with the automated IG or if promyelocytes are noted, a manual differential will be performed. Immature Gran Absolute 0.01 0.00 - 0.05 x10(3)/mcL CERNER MILLENNIUM Blood specimen (specimen) 08/17/2014 10:55 AM EDT 08/17/2014 11:26 AM EDT Narrative Resulting Agency Comment Spec In Lab Rivka Kc MD HEMATOLOGY ORDERABL ES CERNER MILLENNIUM * Hemogram (08/17/2014 10:55 AM EDT) White Blood Cell 7.2 4.0 - 10.0 x10(3)/mcL CERNER MILLENNIUM Red Blood Cell 4.13 3.93 - 5.22 x10(6)/mcL CERNER MILLENNIUM Hemoglobin 11.5 11.2 - 15.7 gm/dL CERNER MILLENNIUM Hematocrit 35.2 34.0 - 45.0 % CERNER MILLENNIUM Mean Cell Volume 85.2 79.0 - 94.0 fL CERNER MILLENNIUM Mean Cell Hemoglobin 27.8 26.6 - 32.2 pg CERNER MILLENNIUM Mean Cell Hemoglobin Concentration 32.7 32.0 - 36.5 gm/dL CERNER MILLENNIUM Platelet 272 145 - 370 x10(3)/mcL CERNER MILLENNIUM RDW Standard Deviation 45.0 35.0 - 46.0 fL CERNER MILLENNIUM RDW coefficient of variation 14.4 10.9 - 14.4 % CERNER MILLENNIUM Mean Platelet Volume 11.2 9.0 - 12.0 fL CERNER MILLENNIUM Blood specimen (specimen) 08/17/2014 10:55 AM EDT 08/17/2014 11:26 AM EDT Narrative Resulting Agency Comment Spec In Lab Rivka Kc MD HEMATOLOGY ORDERABL ES DARIUS KEITH * Troponin T (08/17/2014 10:55 AM EDT) Troponin-T <0.03 <=0.03 ng/mL CERNER MILLENNIUM Comment: 0.03 ng/mL: Represents the 99th percentile upper reference limit for normals. >0.03 ng/mL: Elevated cardiac troponin T level indicative of myocardial damage. Diagnosis of acute, evolving or recent NM requires a typical rise and gradual fall of cTnT with at least ONE of the following: a) Ischemic symptoms b) Development of pathologic Q waves on the ECG c) ECG changes indicative of eschemia (S-T segment elevation/depression) d) Coronary artery intervention Serial bloods should be obtained for testing on admission, at 6 to 9 hrs and again at 12 to 24 hrs if earlier samples are negative and the clinical index of suspicion is high. Reference: [Myocardial infarction redefined? a consensus document of the Joint Society of Cardiology/[place] [employer] Committee for the redefinition of myocardial infarction. ??Journal of the [place] College [employer] 2000; 36: 959-969] Blood specimen (specimen) 08/17/2014 10:55 AM EDT 08/17/2014 11:26 AM EDT Narrative Resulting Agency Comment Spec In Lab Rivka Kc MD CHEMISTRY ORDERABLE S CERNER MILLENNIUM * (ABNORMAL) Basic Metabolic Panel (non-fasting) (08/17/2014 10:55 AM EDT) [facility] Signature Glucose 73 65 - 199 mg/dL CERNER MILLENNIUM Comment:Diabetes: >=200 mg/d L plus symptoms Blood Urea Nitrogen 7(L) 10 - 20 mg/dL CERNER MILLENNIUM Creatinine 0.72(H) 0.20 - 0.70 mg/dL CERNER MILLENNIUM Comment: Please note that the pediatric reference intervals supplied above were not validated at [facility] Results from pediatric patients should be interpreted in conjunction to the patient's age, height and muscle mass. Sodium 144 135 - 145 mmol/L CERNER MILLENNIUM Potassium 4.0 3.5 - 5.0 mmol/L CERNER MILLENNIUM Comment: Please note: ??Patients with WBC >100,000 may have falsely elevated Potassium levels. ??For accurate Potassium quantification in these patients send serum separator tube (gold top) for subsequent determinations. ??Contact the Clinical Chemistry Laboratory if there are any questions. Chloride 109(H) 98 - 107 mmol/L CERNER MILLENNIUM Carbon Dioxide 22 22 - 31 mmol/L CERNER MILLENNIUM Anion Gap 13 5 - 15 mmol/L CERNER MILLENNIUM Calcium 8.0(L) 8.5 - 10.5 mg/dL CERNER MILLENNIUM Est Glomerular Filtration Rate >60 >=60 CERNER MILLENNIUM Comment: This estimated GFR (eGFR) value was calculated [...] the following links into your internet browser. [email or web address] Blood specimen (specimen) 08/17/2014 10:55 AM EDT 08/17/2014 11:26 AM EDT Narrative Resulting Agency Comment Spec In Lab Rivka Kc MD CHEMISTRY ORDERABLE S Performing Organization Address [facility] Co de Phone Number [facility] * CK (08/17/2014 10:55 AM EDT) Creatine Kinase 50 0 - 250 unit/L [facility] Blood specimen (specimen) 08/17/2014 10:55 AM EDT 08/17/2014 11:26 AM EDT Narrative Resulting Agency Comment Spec In Lab Rivka Kc MD CHEMISTRY ORDERABLE S Performing Organization Address [facility] de Phone Number [facility] * EKG 12 Lead (08/17/2014 10:09 AM EDT) Ventricular rate 68 BPM MUSE SYSTEM Atrial Rate 68 BPM MUSE SYSTEM P-R Interval 136 ms MUSE SYSTEM QRS Duration 86 ms MUSE SYSTEM Q-T Interval 440 ms MUSE SYSTEM QTC Calculated (Bezet) 467 ms MUSE SYSTEM Calculated P [place] 26 degrees MUSE SYSTEM Calculated R [place] 24 degrees MUSE SYSTEM Calculated T [place] 21 degrees MUSE SYSTEM INTERPRETATION Normal sinus rhythm Borderline Prolonged QTc When compared with ECG of 04-OCT-2013 13:20, Vent. rate has decreased BY ??51 BPM Confirmed by MD MARILUZ, JOS ([id number]) on 08/28/2014 8:46:43 AM MUSE SYSTEM 08/17/2014 10:0 9 AM EDT 08/28/2014 8:46 AM EDT Rivka Kc MD ECG ORDERABLES Performing Organization Address [facility] Co de Phone Number MUSE SYSTEM * POCT urine (08/17/2014) POC Urine HCG Negative Negative - Negative POC Control Internal Controls Acceptable 08/17/2014 Rivka Kc MD POINT OF CARE TEST ORDERABLES documented in this encounter Visit Diagnoses Diagnosis Chest tightness or pressure Other chest pain documented in this encounter Care Teams Professional Bass Fisherman Relationship Specialty Start Date End Date Rustam Coppola MD [address] [place] [id number] PCP - General 06/30/13 05/30/18 documented as of this encounter
--- OUTSIDE RECORDS SUMMARY | 2024-01-03 13:13 | XMS_ITS | Encounter Summary ---
[facility] [place] [address] Care Team Providers Care Director Of Pediatric Rehabilitation Name Role Phone Rustam Coppola MD Primary Care Provider [phone] Encounter Details Date Type Department Care Team (Latest Contact Info) Description 08/17/2014 8:35 AM EDT - 08/17/2014 11:59 PM EDT Hospital [place] [phone] CLINIC, Chau George MD [facility] [place] [address] Discharge Disposition: Home Social History Tobacco Use [...] 1:00 PM EST Appointment Non[place] [phone] Anton Márquez MD [facility] [place] [address] 01/27/2024 3:00 PM EST Office Visit Cardiology at [address] [phone] Anton Márquez MD [facility] [place] [address] documented as of this encounter Procedures Procedure Name Priority Date/Time Associated Diagnosis Comments MRI CARDIAC MORPHOLOGY FUNCTION WO CONTRAST Routine 08/17/2014 10:00 AM EDT documented in this encounter Results * MRI- Cardiac for morph/func WO contrast (08/17/2014 10:00 AM EDT) Anatomical Region Laterality Modality Chest, Cardiac Magnetic Resonan ce 08/17/2014 10:0 0 AM EDT Impressions 08/17/2014 4:19 PM EDT IMPRESSION: Incomplete noncontrast evaluation, as above. Patient has been rescheduled to complete the examination. Dilated hypokinetic left ventricle. Narrative 08/17/2014 4:19 PM EDT EXAMINATION: MR cardiac for morphology and function without contrast CLINICAL HISTORY: cardiomyopathy nonischemic COMPARISON: None. TECHNIQUE: Axial double inversion recovery without contrast. Axial triple inversion recovery without contrast. Short and long axis cine steady-state free precession without contrast. [place] through the short axis steady state free precession acquisition, the technologist reports that the patient complained of chest pain. The study was aborted and the nursing staff sent the patient to the emergency department. Brooke Patrick, the referring provider, was notified. As the short axis steady-state free precession sequence was aborted, post-processing for evaluation check analysis was not performed. The patient is scheduled for return on 08/23/2014, to complete the examination, specifically the short axis steady state free precession and its accompanying postprocessing, as well as contrast demonstration for delayed enhancement sequence. FINDINGS: Artifacts Magnetic susceptibility:No magnetic susceptibility artifacts. Breath-holding: Rare respiratory motion artifacts. Ectopy/arrhythmia:No significant cardiac motion artifacts. Aliasing:No wrap-around artifacts. Other: No other artifacts identified. Chambers Left ventricle: Mild to moderately dilated left ventricle. Otherwise, normal morphology and function. No findings for noncompaction. Other chambers: Normal morphology and structure. Myocardium Non-contrast series: No abnormal myocardial signal on non-contrast imaging. Wall motion abnormalities: Moderate global hypokinesis of the left ventricle. Note however, incomplete evaluation, as the short axis steady state free precession acquisition was aborted, as above. Valves:No valvulopathy identified. Pericardium:No pericardial thickening or effusion. Aorta: Normal contour and caliber. Other thoracic great vessels: Normal contour and caliber. Left and right coronary arteries both arise from their respective sinuses of Valsal[place], with normal proximal course. Non-cardiovascular structures: No significant findings. QUANTITATIVE DATA: Not obtained, as the steady-state free precession acquisition was aborted, as above. Procedure Note Katharine Judd MD - 08/17/2014 EXAMINATION: MR cardiac for morphology and function without contrast CLINICAL HISTORY: cardiomyopathy nonischemic COMPARISON: None. TECHNIQUE: Axial double inversion recovery without contrast. Axial triple inversion recovery without contrast. Short and long axis cine steady-state free precession without contrast. [place] through the short axis steady state free precession acquisition,the technologist reports that the patient complained of chest pain. The studywas aborted and the nursing staff sent the patient to the emergencydepartment. Brooke Patrick, the referring provider, was notified. As the short axis steady-state free precession sequence was aborted, post-processing for evaluation check analysis was not performed. The patient is scheduled for return on 08/23/2014, to complete theexamination, specifically the short axis steady state free precession and itsaccompanying postprocessing, as well as contrast demonstration for delayedenhancement sequence. FINDINGS: Artifacts Magnetic susceptibility:No magnetic susceptibility artifacts. Breath-holding: Rare respiratory motion artifacts. Ectopy/arrhythmia:No significant cardiac motion artifacts. Aliasing:No wrap-around artifacts. Other: No other artifacts identified. Chambers Left ventricle: Mild to moderately dilated left ventricle. Otherwise,normal morphology and function. No findings for noncompaction. Other chambers: Normal morphology and structure. Myocardium Non-contrast series: No abnormal myocardial signal on non-contrastimaging. Wall motion abnormalities: Moderate global hypokinesis of the leftventricle. Note however, incomplete evaluation, as the short axis steady state free precession acquisition was aborted, as above. Valves:No valvulopathy identified. Pericardium:No pericardial thickening or effusion. Aorta: Normal contour and caliber. Other thoracic great vessels: Normal contour and caliber. Left and right coronary arteries both arise from their respective sinuses of [place],with normal proximal course. Non-cardiovascular structures: No significant findings. QUANTITATIVE DATA: Not obtained, as the steady-state free precessionacquisition was aborted, as above. IMPRESSION IMPRESSION: Incomplete noncontrast evaluation, as above. Patient hasbeen rescheduled to complete the examination. Dilated hypokinetic left ventricle. Brooke Patrick APRN [facility] [place] documented in this encounter Visit Diagnoses Not on filedocumented in this encounter Care Teams Director Of Pediatric Rehabilitation Relationship Specialty Start Date End Date Rustam Coppola MD [address] [place] [phone] PCP - General 06/30/13 05/30/18 documented as of this encounter
--- OUTSIDE RECORDS SUMMARY | 2024-01-03 13:13 | XMS_ITS | Encounter Summary ---
Author Organization [facility] [place] [address] Care Team Providers Care Customer Development Representative Name Role Phone Rustam Coppola MD Primary Care Provider [phone] Encounter Details Date Type Department Care Team (Latest Contact Info) Description 05/09/2014 11:56 AM EST - 05/09/2014 11:59 PM [facility] Hospital [place] [address] Dannielle Gallegos MD [facility] [place] [address] Discharge Disposition: Home Social History Tobacco Use [...] 1:00 PM EST Appointment Non-Invasive [place] [phone] Anton Márquez MD [facility] [place] [address] 01/27/2024 3:00 PM EST Office Visit Cardiology at [address] [phone] Anton Márquez MD [facility] [place] [address] documented as of this encounter Visit Diagnoses Not on filedocumented in this encounter Care Teams Customer Development Representative Relationship Specialty Start Date End Date Rustam Coppola MD [address] [place] [id number] PCP - General 06/30/13 05/30/18 documented as of this encounter
--- OUTSIDE RECORDS SUMMARY | 2024-01-03 13:13 | XMS_ITS | Encounter Summary ---
Author Organization [facility] [place] [address] Care Team Providers Care Non Destructive Evaluation Manager Name Role Phone Rustam Coppola MD Primary Care Provider [phone] Encounter Details Date Type Department Care Team (Late st Contact Info) Description 05/16/2014 Orders Only Cardiology at [address] [phone] Chau Felder MD [facility] [place] [address] Social History Tobacco Use Types Packs/Day Years [...] 1:00 PM EST Appointment Non-[place] [address] Anton Márquez MD [facility] [place] [address] 01/27/2024 3:00 PM EST Office Visit Cardiology at [address] [phone] Anton Márquez MD [facility] [place] [address] documented as of this encounter Visit Diagnoses Not on filedocumented in this encounter Care Teams Non Destructive Evaluation Manager Relationship Specialty Start Date End Date Rustam Coppola MD [address] [place] [id number] PCP - General 06/30/13 05/30/18 documented as of this encounter
--- OUTSIDE RECORDS SUMMARY | 2024-01-03 13:13 | XMS_ITS | Encounter Summary ---
[place] [address] Care Team Providers Care Tack Puller Name Role Phone Rustam Coppola MD Primary Care Provider [phone] Encounter Details Date Type Department Care Team (Late st Contact Info) Description 05/14/2014 Orders Only Cardiology at [address] [phone] Brooke Patrick, [facility] [address] [place] [address] Social History Tobacco Use Types Packs/Day Years [...] 1:00 PM EST Appointment Non-[place] [address] Anton Márquez MD [facility] [place] [address] 01/27/2024 3:00 PM EST Office Visit Cardiology at [address] [phone] Anton Márquez MD [facility] [place] [address] documented as of this encounter Visit Diagnoses Not on filedocumented in this encounter Care Teams Tack Puller Relationship Specialty Start Date End Date Rustam Coppola MD [address] [place] [id number] PCP - General 06/30/13 05/30/18 documented as of this encounter
--- OUTSIDE RECORDS SUMMARY | 2024-01-03 13:13 | XMS_ITS | Encounter Summary ---
Author Organization [facility] [place] [address] Care Team Providers Care Shield Operator Name Role Phone Rustam Coppola MD Primary Care Provider [phone] Reason for Visit * Reason Onset Date Comments Other 05/09/2014 echo order Encounter Details Date Type Department Care Team (Late st Contact Info) Description 05/09/2014 Telephone Cardiology at [address] [phone] Brooke Patrick, ROOM MANAGER [address] [place] [address] Other (echo order) Social History Tobacco Use Types Packs/Day Years [...] encounter Miscellaneous Notes * Telephone Encounter - Leisa Major - 05/09/2014 9:24 AM EST Please sign attached order for upcoming appointment. documented in this encounter Plan of Treatment Upcoming Encounters Date Type Department Care Team (Late st Contact Info) Description 01/27/2024 1:00 PM EST Appointment Non-Invasive [place] [address] Anton Márquez MD [facility] [place] [address] 01/27/2024 3:00 PM EST Office Visit Cardiology at [address] [phone] Anton Márquez MD [facility] [place] [address] documented as of this encounter Visit Diagnoses Diagnosis Other primary cardiomyopathies documented in this encounter Care Teams Shield Operator Relationship Specialty Start Date End Date Rustam Coppola MD [address] [place] [phone] PCP - General 06/30/13 05/30/18 documented as of this encounter
--- OUTSIDE RECORDS SUMMARY | 2024-01-03 13:13 | XMS_ITS | Encounter Summary ---
[place] [address] Care Team Providers Care Director Of Sports Performance Name Role Phone David Aldrich MD Primary Care Provider [phone] Encounter Details Date Type Department Care Team (Late st Contact Info) Description 05/09/2014 10:10 AM EST Follow-Up Cardiology at [address] [phone] Abhijeet Crespo, ISAI [address] [place] [address] Cardiomyopathy Discharge Disposition: Home Social History Tobacco [...] Sign Reading Time Taken Comments Blood Pressure 100/70 05/09/2014 10:51 AM EST Pulse 86 05/09/2014 10:51 AM EST Temperature - - Respiratory Rate - - Oxygen Saturation 95% 05/09/2014 10: 51 AM EST Inhaled Oxygen Concentration - - Weight 96.7 kg (213 lb 3.2 oz) 05/09/19 15 10:51 AM EST Height 174 cm (5' 8.5) 05/09/2014 10:5 1 AM EST Body Mass Index 31.94 05/09/2014 10:51 AM EST Body Mass Index Percentile 95.97% 05/09 10:51 AM EST Growth Chart: CDC (Girls, 2- 20 Years) documented in this encounter Progress Notes * Abhijeet Crespo, VOICE SYSTEMS ENGINEER - 05/09/2014 11:50 AM EST Images from the original note were not included. [facility] [place] [address] [address] CARDIOMYOPATHY/HEART FAILURE SERVICE OUTPATIENT CLINIC NOTE- INITIAL CONSULT Mary Porras 05/09/2014 Primary Care Provider: DAVID ALDRICH MD Referring Provider: David Aldrich CHIEF COMPLAINT: Fatigue, worry re her heart. HISTORY OF PRESENT ILLNESS: Mary Porras is a 18 y.o. patient seen in scheduled (per pt request) follow up in the [facility] Heart Failure Clinic. This is my first visit with Mary, who was last seen by general cardiology while here for delivery of her son, who is now 7 months old. Per notes and patient, she was diagnosed with a viral myocarditis at age 4 months- on meds until age 8. EF was 51% at 22 weeks , and then around 35% on 10/04/14. She has not been seen here since. In Jan, she stopped her heart failure meds(enalapril and metoprolol) because she said her boyfriend threw them out. She has noted fatigue, some lightheadedness. Has occ sx of waking up at night. Sleeps on 1 pillow. Occ chest heaviness, and b elieves she has palpitations-more recently. No abdominal bloating. Notes freq nose bleeds. Pt lives with her mother and her mother's boyfriend. Is here today with her 7 month old and her mother's boyfriend's mother. She is concerned that she might be , although has started what shebelieves is here menses just recently. No periods since delivery. Pt weighed 135 lbs before she got . Gained>100 lbs with . From her follow up with Dr Gallegos Labs noticeable for a BNP 342, sodium of 139, creatinine 0.56 Social history: notable for marijuana smoking until five months before . No history of alcohol, cocaine or heroin abuse. Father is not involved. This is a 18-year-old woman with a history of nonischemic dilated cardiomyopathy who presents for cardiac follow-up 27 weeks into her first . She presented at age 4 months with heart failurethought to be secondary to enterovirus myocarditis. She was treated with immunoglobin at that time.She's had slow improvements in her LV function over the years with low normal EF and no heart failure symptoms. She was previously treated with darlene-I, Coumadin, beta sunitha, digoxin. Meds were stopped by age [age]. Seen [address] Dr. Felder on July 21 where she noted dyspnea with school activities. Risks of were discussed at that time, including worsening heart failure and progression of her cardio myopathy along with dysrhythmias. Metoprolol succinate 25 mg daily was initiated at this visit for cardio protection For the C.M., she notes that she was treated at [facility]. Lives in [facility] her OB care at [place], [place] Echo performed June 30 when she was 22 weeks showed EF 51% with diffuse hypokinesis and mild RV and LV dilatation, trace MR, trace TR an estimated PASP of 15 mmHg. TTE 08/02 c/w above, and EF has increased to 54%. From a consultation with [facility] (per Dr Gallegos): There are limited records available. The patient apparently presented at age 4 months with difficulty breathing and eventually the diagnosis of a dilated cardiomyopathy and congestive heart failure was made. A femoral line was placed and she was eventually treated with warfarin, digoxin, Lasix, Vasotec, potassium, and the mother thinks a beta sunitha. Over the next few years, her cardiac function slowly improved, the symptoms decreased and eventually she became asymptomatic. Echocardiography revealed improvement in left ventricular function with near normalization although there is a mention of persistent left ventricular dilatation and some thinning of the left ventricular sanchez. At age 8 or 9 the medications were eventually tapered and discontinued although there was some mention of a persistent hole in the heart. She moved, living with her father and cardiology followup became less intense. Her last followup was reportedly at age 11 or 12. According to the mother, the patient was told not to become . She has be en on no medications and in general did fairly well with respect to activity tolerance. She is now 22 weeks into her first which to date has been uncomplicated with respect to obstetric issues. The patient continues to go to school although finds it difficult to complete a full day and to climb stairs. She is tired and particularly dyspneic. She has not had difficulty with edema though notes that she has had some heart fluttering particularly when she is stressed which leads to an increase in dyspnea. Workup at the time of her initial presentation was suggestive of an enterovirus myocarditis and shewas apparently treated with immunoglobulin in addition to the cardiac medications. There is a family history of heart trouble which is ill- defined particularly with her maternal grandfather. There isno family history of sudden cardiac . IMPRESSION: History of myocarditis as an infant with significant improvement though not full normalization of left ventricular function. In addition, she is at significant risk for dysrhythmias (atrial and ventricular). We discussed the risk of (both with the patient and her mother and grandmother) which includes worsening heart failure, progressive cardiomyopathy, dysrhythmias, and fortunately rarely but still increased risk of mortality. I have emphasized the need for close and frequent followup and delivery an institution with full cardiology support. The patient's mother had discussed termination of with her sometime ago and the patient declined. PAST MEDICAL HISTORY: Reviewed and updated as appropriate in the medical record. Patient Active Problem List Diagnosis Code ??? Cardiomyopathy 425.4 ??? High risk teen V23.89 ??? Sinus tachycardia 427.89 Patient Active Problem List Diagnosis ??? Sinus [...] ??? High risk teen With known cardiomyopathy SOCIAL HISTORY: Reviewed and updated as appropriate in the medical record. The patient reports thatcapo has never smoked. She has never used smokeless tobacco. FAMILY HISTORY: Reviewed and updated as appropriate in the medical record. Family History Problem Relation Age of Onset ??? Coronary Artery Disease ??? Cancer ??? Type 2 Diabetes ALLERGIES: Reviewed and updated as appropriate in the medical record. No Known Allergies MEDICATIONS: Outpatient Prescriptions Marked as Taking for the 05/09/14 encounter (Follow-Up) with Abhijeet Crespo APRN Medication Sig Dispense Refill ??? enalapril (VASOTEC) 2.5 mg tablet Take 1 tablet by mouth 2 times daily. 60 tablet 11 ??? metoprolol succinate (TOPROL-XL) 100 mg XL tablet Take 1 tablet by mouth daily. 30 tablet 12 PHYSICAL EXAMINATION: Vital Signs: Blood pressure 100/70, pulse 86, height 174 cm (5' 8.5), weight 96.707 kg (213 lb 3.2 oz), SpO2 95%, not currently . BP Readings from Last 3 Encounters: 05/09/14 100/70 10/12/13 118/67 10/12/13 118/67 Pulse Readings from Last 3 Encounters: 05/09/14 86 10/12/13 95 10/12/13 95 SpO2: [95 %] PE: Gen: Pleasant, NAD, elevated BMI HEENT: Head AT/NC; JVP < 7, no HJ reflex Cor: RRR s1 s2 no murmer heard , no S3 Pulm: Lungs CTAB. Abd: s,nt, no HSM Stria. Extremities: No Lower extremity edema- warm LAB STUDIES: Recent Results (from the past 72 hour(s)) ECHOCARDIOGRAM TRANSTHORACIC(LEB) Result Value Ref Range EF 34 ProBNP Date Value Ref Range Status 10/07/2013 438* <=125 pg/mL Final 09/19/2013 104 <=125 pg/mL Final 06/30/2013 342* <=125 pg/mL Final CARDIAC STUDIES 05/09/14: SUMMARY: 1. Technically difficult study; limited apical [...] the TTE performed 10/04/13, findings are similar. 10/04/14 SUMMARY: 1. Technically difficult study. 2. The left [...] to suggest that LV filling pressure has increased LVIDd=6.1 Echo 06/30/13 Index echo during HR BP 121/79 SUMMARY: 1. The left ventricle is mildly dilated. The quantitative left ventricular ejection fraction by biplane Higginbotham's method is 51%. There is diffuse hypokinesis present. 2. The right ventricle is mildly dilated. Right ventricular global systolic function is normal. The estimated pulmonary artery systolic pressure is normal 15 mmHg. 3. Both atria are normal in size. 4. There is no hemodynamically significant valve disease. 5. The pericardium appears normal and there is no evidence of a pericardial effusion. ASSESSMENT: Beta HcG today is negative. Nonischemic cardiomyopathy- initially diagnosed as an - off meds age 8 years and on. EF dropped post delivery this past summer to 35%, where it has remained per echo today. She declined contrast on echo today- interesting to note that echo suggests possible trabeculations. Consider MRI to evaluate trabeculations-? noncompaction Will need to get back on GDMT for heart failure/cardiomyopathy. I don't think she has a lot of extra volume. Placed Zio for palpitation evaluation. If EF doesn't come up- refer to EP for device consideration. Will update EKG next visit Obesity Supportive family Plan RTC 3 weeks Initiated enalapril 2.5 mg BID Toprol XL 25 mg daily Reinforced that she should not get - she understands Cardiac MRI at follow up visit [facility] documented in this encounter Plan of Treatment Upcoming Encounters Date Type Department Care Team (Late st Contact Info) Description 01/27/2024 1:00 PM EST Appointment Non-Invasive [place] [address] Anton Márquez MD [facility] [address] 01/27/2024 3:00 PM EST Office Visit Cardiology at [address] [phone] Anton Márquez MD [facility] [place] [address] documented as of this encounter Procedures Procedure Name Priority Date/Time Associated Diagnosis Comments IRON AND TIBC Routine 05/09/2014 12:01 PM EST Cardiomyopathy BETA HCG, QUANTITATIVE STAT 05/09/2014 12:01 PM EST Cardiomyopathy FERRITIN STAT 05/09/2014 12:01 PM EST documented in this encounter Results * (ABNORMAL) Ferritin (05/09/2014 12:01 PM EST) Pathologist [facility] Ferritin 33(L) 36 - 92 ng/mL [facility] Comment: Pediatric reference ranges not verified at [facility], interpret with caution. Reference ranges for females greater than 50 years of age approach values for men, i.e., 30-400 ng/mL. Blood specimen (specimen) Venous Draw / Unknown 05/09/2014 12:01 PM EST 05/09/2014 12:21 PM EST Narrative Resulting Agency Comment Spec In Lab Chau Felder MD CHEMISTRY ORDERABLES Performing Organization Address [facility] [address]/[facility] Co de Phone Number [facility] * (ABNORMAL) Iron and TIBC (05/09/2014 12:01 PM EST) [facility] Iron 53 20 - 160 mcg/dL [facility] TIBC 322 194 - 372 mcg/dL [facility] Iron Saturation 16(L) 20 - 50 % [facility] Blood specimen (specimen) 05/09/2014 12:01 PM EST 05/09/2014 12:11 PM EST Narrative Resulting Agency Comment Spec In Lab Chau Felder MD CHEMISTRY ORDERABLES Performing Organization Address [facility] [address]/[facility] de Phone Number [facility] * Beta HCG, quantitative (05/09/2014 12:01 PM EST) [facility] Beta Human Chorionic Gonadotropin, Quantitative <1 mlU/ML [facility] Comment: REFERENCE RANGES NON- FEMALE: ??Less than 5 mIU/mL POSTMENOPAUSAL FEMALE: ??Less than 8 mIU/mL ? -- FEMALES -- Weeks of ? HCG range ??(mIU/mL) ? 3 weeks ? 5.8 - 71.2 ? 4 weeks ? 9.5 - 750 ? 5 weeks ? 217 - 7,138 ? 6 weeks ? 158 - 31,795 ? 7 weeks ? 3,697 - 163,563 ? 8 weeks ? 32,065 - 149,571 ? 9 weeks ? 63,803 - 151,410 ?10 weeks ? 46,509 - 186,977 ?12 weeks ? 27,832 - 210,612 ?14 weeks ? 13,950 - 62,530 ?15 weeks ? 12,039 - 70,971 ?16 weeks ? 9,040 - 56,451 ?17 weeks ? 8,175 - 26,685 ?18 weeks ? 8,691 - 55,706 Blood specimen (specimen) 05/09/2014 12:01 PM EST 05/09/2014 12:10 PM EST Narrative Resulting Agency Comment Spec In Lab Chau Felder MD CHEMISTRY ORDERABLES DARIUS KEITH * ZIOPATCH (05/09/2014 12:00 PM EST) Anatomical Region Laterality Modality Other Narrative 05/21/2014 7:57 AM EDT [facility] ? Zio Patch? Ambulatory Cardiac Event [...] Chau Felder MD CARDIAC SERVICES ORD ERABLES * Echocardiogram Transthoracic(Leb) (05/09/2014 11:00 AM EST) EF 34 [facility] Anatomical Region Laterality Modality Other 05/09/2014 Narrative 05/09/2014 11:19 AM EST Procedure: ? Transthoracic Echocardiogram Patient: ? JORDON Polo ?(Age): 1995(18) Med Rec#: ?[id number] ? Sex: ?F ? Site Loc: ?[facility] ? Ht / Wt: ??174(cm)/105.5(k Pt. Loc: ? Echo Lab ? BSA: ?2 Study Date: ?05/09/2014 ? Pt. Type: Outpatient Tape: ? Referring: Chau Felder ([id number]) Referring: ABHIJEET CRESPO L Warning Analyst: Sheree Garcia Diagnosis: ??Cardiomyopathy (425.4) CPT Code(s): ??Spectral Doppler (97233), ??Color Doppler (50186), ??Echo Full (45181), Indication(s): ??Congestive heart failure Rhythm: HR ?BP [...] ? Mid-Inferior ?Hypokinetic ? Mid-Inferoseptal ?Hypokinetic ? Clayton-Septal ? Hypokinetic ? Clayton-Anterior ? Hypokinetic ? Clayton-Lateral ?Hypokinetic ? Clayton-Inferior ? Hypokinetic ? Clayton-Tip ?Hypokinetic ? Chambers ?Value ?Units (Range) ? [...] 05/09/2014 11:18:50 Images reviewed and interpretation verified [facility] Cardiac Ultrasound Laboratory Procedure Note Maicol Hart MD - 05/09/2014 Procedure: Transthoracic Echocardiogram Patient: JORDON DE LUNA(Age): 1995(18) Med Rec#: [id number] Sex: F Site Loc: [facility] Ht / Wt: 174(cm)/105.5(k Pt. Loc: Echo Lab BSA: 2.26 Study Date: 05/09/2014 Pt. Type: Outpatient Tape: Referring: Chau Felder ([id number]) Referring: ABHIJEET CRESPO L Warning Analyst: Sheree Garcia Diagnosis: Cardiomyopathy (425.4) CPT Code(s): Spectral Doppler (50668), Color Doppler (23405), Echo Full (33284), Indication(s): Congestive heart failure Rhythm: HR BP [...] Hypokinetic Mid-Posterolateral Hypokinetic Mid-Inferior Hypokinetic Mid-Inferoseptal Hypokinetic Clayton-Septal Hypokinetic Clayton-Anterior Hypokinetic Clayton-Lateral Hypokinetic Clayton-Inferior Hypokinetic Clayton-Tip Hypokinetic Chambers Value Units (Range) LV EF [...] 05/09/2014 11:18:50 Images reviewed and interpretation verified [facility] Cardiac Ultrasound Laboratory Cahu Felder MD ECHO ORDERABLES documented in this encounter Visit Diagnoses Diagnosis Cardiomyopathy Other primary cardiomyopathies Cardiomyopathy Other primary cardiomyopathies Cardiomyopathy Other primary cardiomyopathies documented in this encounter Care Teams Director Of Sports Performance Relationship Specialty Start Date End Date David Aldrich MD [address] [address] PCP - General 06/30/13 05/30/18 documented as of this encounter
--- OUTSIDE RECORDS SUMMARY | 2024-01-03 13:13 | XMS_ITS | Encounter Summary ---
[place] [address] Care Team Providers Care Health Editor Name Role Phone Rustam Coppola MD Primary Care Provider [phone] Reason for Visit * Reason Onset Date Comments Medication Refill 07/10/2014 Encounter Details Date Type Department Care Team (Late st Contact Info) Description 07/10/2014 Refill Cardiology at [address] [phone] Brooke Patrick, METAL TESTER [address] [place] [address] Medication Refill Social History Tobacco Use Types [...] 1:00 PM EST Appointment [facility] [place] [address] Anton Márquez MD [facility] [place] [address] 01/27/2024 3:00 PM EST Office Visit Cardiology at [address] [phone] Anton Márquez MD [facility] [place] [address] documented as of this encounter Visit Diagnoses Not on filedocumented in this encounter Care Teams Health Editor Relationship Specialty Start Date End Date Rustam Coppola MD [address] [place] [address] PCP - General 06/30/13 05/30/18 documented as of this encounter
--- OUTSIDE RECORDS SUMMARY | 2024-01-03 13:14 | XMS_ITS | Encounter Summary ---
[place] [address] Care Team Providers Care Health Education Teacher Name Role Phone Rustam Coppola MD Primary Care Provider [phone] Encounter Details Date Type Department Care Team (Late st Contact Info) Description 10/04/2013 2:00 PM EDT [place] [address] Anesthesia Record Procedure Summary Procedure Name Responsible Anesthesiologist Anesthesia Start Time Anesthesia Stop Time @ DELIVERY (WRVU 16.13) (Bilateral) Events No events on file. Meds * Agents No agents on file. * Blood No blood administrations on file. Lines, Drains, and Airways Type Details Placement Removal (RETIRED By SPR20) Incision 10/08/13; 0400 10/08/13 0400 by Torsten Schneider RN Incision 01/22/21; 1519; ante rior; horizontal 01/22/21 1519 by Lana Freeman RN documented in this encounter Social History [...] 1:00 PM EST Appointment Non-[place] [address] Anton Márquez MD [facility] [place] [address] 01/27/2024 3:00 PM EST Office Visit Cardiology at [address] [phone] Anton Márquez MD [facility] [place] [address] documented as of this encounter Visit Diagnoses Not on filedocumented in this encounter Care Teams Health Education Teacher Relationship Specialty Start Date End Date Rustam Coppola MD [address] [place] [address] PCP - General 06/30/13 05/30/18 documented as of this encounter
--- OUTSIDE RECORDS SUMMARY | 2024-01-03 13:14 | XMS_ITS | Encounter Summary ---
Author Organization Formerly [facility] [place] [address] Care Team Providers Care School Operations Manager Name Role Phone Rustam Coppola MD Primary Care Provider [phone] Encounter Details Date Type Department Care Team (Late st Contact Info) Description 09/13/2013 Telephone Cardiology at [address] [phone] Dannielle Gallegos MD [facility] [place] [address] Social History Tobacco Use Types Packs/Day Years [...] encounter Miscellaneous Notes * Telephone Encounter - Dori Fregoso - 09/13/2013 1:07 PM EDT Error Staff message sent disregard documented in this encounter Plan of Treatment Upcoming Encounters Date Type Department Care Team (Late st Contact Info) Description 01/27/2024 1:00 PM EST Appointment Non-[place]vasive [place] [phone] Anton Márquez MD [facility] [place] [address] 01/27/2024 3:00 PM EST Office Visit Cardiology at [address] [phone] Anton Márquez MD [facility] [place] [address] documented as of this encounter Visit Diagnoses Not on filedocumented in this encounter Care Teams School Operations Manager Relationship Specialty Start Date End Date Rustam Coppola MD [address] [place] [address] PCP - General 06/30/13 05/30/18 documented as of this encounter
--- OUTSIDE RECORDS SUMMARY | 2024-01-03 13:14 | XMS_ITS | Encounter Summary ---
[place] [address] Care Team Providers Care Administrative Support Specialist Name Role Phone Rustam Coppola MD Primary Care Provider [phone] Reason for Visit * Reason Comments Routine Visit Encounter Details Date Type Department Care Team (Latest Contact Info) Description 10/04/2013 3:45 PM EDT Initial Obstetrics [place] [phone] CLINIC, Rod Watkins MD [facility] OBSTETRICS [place] [address] Discharge Disposition: Home Social History Tobacco Use [...] Sign Reading Time Taken Comments Blood Pressure 112/70 10/04/2013 3:03 PM EDT Pulse - - Temperature - - Respiratory Rate - - Oxygen Saturation - - Inhaled Oxygen Concentration - - Weight 108.7 kg (239 lb 9.6 oz) 10/04/2013 3:03 PM EDT Height - - Body Mass Index 35.9 10/04/2013 1:14 PM EDT Body Mass Index Percentile 98.11% 10/04/2013 3:0 3 PM EDT Growth Chart: [facility] (Girls, 2- 20 Years) documented in this encounter Progress Notes * Rod Dukes MD - 10/04/2013 4:09 PM EDT Mary presents today after cardiology visit. She states that if she holds her urine for too long,she develops bleeding and cramping like a menses. She is uncertain if the blood comes from her vagina or urethra. Echo today shows decline in cardiac function, which correlates with her symptoms. Given the GA and decline in function, IOL would be indicated. US today shows normal growth and fluid. We discussed good analgesia and assisted second stage with no pushing. She will be admitted to the CCU, bed 4t5. The OB team is aware. documented in this encounter Plan of Treatment Upcoming Encounters Date Type Department Care Team (Late st Contact Info) Description 01/27/2024 1:00 PM EST Appointment Non[place] [address] Anton Márquez MD [facility] [address] 01/27/2024 3:00 PM EST Office Visit Cardiology at [address] [phone] Anton Márquez MD [facility] [place] [address] documented as of this encounter Visit Diagnoses Diagnosis Cardiomyopathy Other primary cardiomyopathies High risk teen , third trimester documented in this encounter Care Teams Administrative Support Specialist Relationship Specialty Start Date End Date Rustam Coppola MD [address] [place] [address] PCP - General 06/30/13 05/30/18 documented as of this encounter
--- OUTSIDE RECORDS SUMMARY | 2024-01-03 13:14 | XMS_ITS | Encounter Summary ---
[place] [address] Care Team Providers Care Chiropractic Physician Name Role Phone aDvid Aldrich MD Primary Care Provider [phone] Encounter Details Date Type Department Care Team (Late st Contact Info) Description 10/08/2013 3:00 AM EDT - 10/08/2013 5:05 AM EDT [place] [id number] Marita Sprague MD [facility] [address] [place] [address] @ DELIVERY (WRVU 16.13) Social History Tobacco [...] 10/11/2013 6:2 6 AM EDT Growth Chart: [facility] (Girls, 2- 20 Years) documented in this [...] this in detail. Call your doctor or superintendent of generation for: Fever more than 100.5 Heavy bleeding [...] follow up appointment. You may call the [facility] at any time for guidance or for answers to questions that come up prior to you follow up appointment. Your [facility] Provider can be reached during office hours at [facility]wives [facility]stetric[facility] Follow-up Clinic AFTER OFFICE HOURS for the economic development manager or superintendent of generation instrumentation fitter Provider electronic signature confirms that discharge instructions [...] AM EDT Inpatient Cardiology Progress Note Patient: [facility] Day 8 days 24 hour Events/Subjective: - [...] Humphries PGY-1 Internal Medicine S1 TEAM PAGER #[phone] 10/12/2013 Staff Rounding Addendum: I interviewed and [...] Humphries and myself. Alexandr Castaneda MD Staff Dimensional Integration Engineer Pager #[phone] * Astrid Lopez, PSYCHIATRIC NURSE PRACTITIONER - 10/12/2013 10:14 AM EDT S/O: Met with Pt Mary in room on BP. Mary's cousin was present and holding the baby during this encounter. Mary gave to baby boy Julian on 10/08 at 37 weeks gestation. Mary lives in [place], [place] with her mother, step father and [...] and that she is taking him to [facility] because she doesn't like any of the pediatricians in [facility]. A: Mary is a 18 year [...] is needed at this time. MARTINA Atkins, [facility] Pager #[phone] * Marita Sprauge MD - 10/12/2013 7:42 AM EDT Obstetrics [...] nursing given patient's risk of volume overload nutrition: breast Cardiac: Management per cardiology team. [...] of wound care supervision by her local economic development manager Will take an ZEUS inhibitor and beta sunitha Contraception plan to be formalized by Dr. Hoang. Marita Sprague MD * Kami Valladares RN - 10/11/2013 5:08 PM EDT Pt arrived to room with FOB and infant from N. VSS. Patient rating abd pain 2/10 and denying needfor PRN pain medications. Pt denies chest pain/shortness of breath, dizziness, and/or headaches. See flow sheet for head to toe assessment. Spoke to patient about/encouraged hydration, diet, ambulation, hygiene, frequent hand-washing, and rest. Pt verbalizes an understanding. Pt instructed to ring c ann núñez for assistance; pt verbalizes an understanding. [...] able to function her role when her came to the room with her. Pt [...] Intake/Output Summary (Last 24 hours) at 10/11/13 0723 Last data filed at 10/11/13 0626 Gross [...] 24 hrs,but clinically euvolemic and hemodynamically stable. Infant nutrition: breast Cardiac: Management per cardiology [...] AM EDT Inpatient Cardiology Progress Note Patient: [facility] Day 7 days Active Problems: 24 hour [...] shoulders. Laboratory: Recent Labs Basename 10/10/13 0805 10/09/1333410/08/13 0700 WBC 13.5* 12.9 18.0* HGB 9.1* 9.8* 10.3* PLATELET 227 224 264 Recent Labs Basename 10/10/13 0805 10/09/1333410/08/13 0700 NA 139 133* 139 K 4.2 4.0 4.1 CL 103 100 106 CO2 25 25 21* BUN 8* 9* 9* CREATININE 0.46 0.63 0.57 Recent Labs Basename 10/10/13 0810/09/1333410/08/13 0700 CALCIUM 8.9 8.8 8.6 MAGNESIUM 0.69 [...] Humphries PGY-1 Internal Medicine S1 TEAM PAGER #[phone] 10/11/2013 Staff Rounding Addendum: I interviewed and [...] of po furosemide. Alexandr Castaneda MD Staff Dimensional Integration Engineer Pager #[phone] * Vicky Caballero RN - 10/10/2013 4:16 PM EDT Care Management Assessment (Clinical Editor) Patient Information has been reviewed in multi-disciplinary [...] aged, this is his first child. Where: [place], [place] Approx time in community: Year(s) Social Resources: Intact (non-) couple with first child. Petr has been staying in the room with Mary through the CVCC and ICCU stays. Various family members (mom, step dad, grandmother, etc) have been coming from [facility] to visit. Mary states that she has everything she needs for the baby. Extended family in [facility] for support: Yes. Lives with family. Cognitive Resources: Intact Childbirth Education: Yes/No Educational Level: High School (in process of senior year-hopes to complete by February) Functional Status: Ambulatory, Independent, Without limitations. C/S recovery with limitations on lifting/driving x 2 weeks. Complications requiring follow-up: Financial Resources: Limited. OK while living at home. Health Insurance Coverage: [place] Medicaid [employer] Chosen: [facility] (pt to find name of provider) Declines list of [facility] providers. Baby's Name: Julian Minor Pt given information on adding baby to [facility]. Anticipated Continuing Care Needs: Physical: Recovery from . Initiation of /pumping for ICN Emotional: Adjustment to period Psychological: No known hx of anxiety/depression. Referred to public health social worker for assessment and support while inpatient. Educational: Parenting first Continuing Care Plan Development: At home resources/Discharge supports suggested. Printed materials and suggested community resourcesprovided to patient: Visiting Nurse visits: Offered services of VNA post discharge. Patient accepted on behalf of baby. Didn't really desire VNA for herself. [facility] (n/a) [place] Resource Sheets given. [place] [facility]): [place] [facility]: [facility] ([facility] or [facility]) Info provided Provided information on [facility] as local lodging upon discharge. Pt uncertain, but likely to stay to be near her . DME ordered : Breast Pump Breast Pump: Rx to [facility] for Lactina breast pump. Infant remains in ICN with [facility] at this time. Other: Have car seat, own transportation, and some family support. Referral placed with [facility] upon baby's discharge. [facility] information given. Breast Pump Rx to [facility]. CRC: Priscilla FIORE/ Theresa Morelos. Beeper [id number] * Lelia Del Valle RN - 10/10/2013 2:43 PM EDT Care Management(OCM)/Clinical Editor(CRC) CRC Service: Cardiology, Cardiothoracic and Thoracic Surgery TORSTEN Lrason RN Pager # [phone] Record reviewed and patient discussed with multidisciplinary [...] is stable. Mary and Petr live in [place], [place] with her family. Mary is currently [...] while the baby remains in the ICN. 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 Today is POD#2. Interval Events: s/p epidural with dilaudid ACCOUNTING LECTURER, started on oxycodone po Subjective: Complains of [...] surgical standpoint can be d/c once ambulatory nutrition: breast Cardiac: Lopressor 12.5 BID, ACEI [...] AM EDT Inpatient Cardiology Progress Note Patient: [facility] Day 6 days Active Problems: 24 hour [...] [DISCONTINUED] HYDROmorphone Stopped (10/09/13 1100) ??? [DISCONTINUED] ACCOUNTING LECTURER smith ??? [DISCONTINUED] lactated ringers Stopped (10/09/13 [...] [DISCONTINUED] prochlorperazine, [DISCONTINUED] ondansetron, [DISCONTINUED] nalOXone, [DISCONTINUED] ACCOUNTING LECTURER smith, acetaminophen Assessment/Plan: 18yo F with PMHx [...] Humphries PGY-1 Internal Medicine S1 TEAM PAGER #[phone] 10/10/2013 Staff Rounding Addendum: I interviewed and examined the patient during comprehensive bedside rounds with Dr. Humphries. I concur with the summary of interval events, active hospital- focused problem list and plan of care. I personally reviewed the medications, laboratory results, treatment decisions and updated the patient onall of these elements. The assessment and plan were developed [facility] Alexandr Castaneda MD Staff Dimensional Integration Engineer Pager #[phone] * Marita Graf, RD - 10/09/2013 3:31 [...] level ~T10-L4 Labs: Recent Labs Basename 10/09/1333410/08/13 0700 10/07/13 0420 WBC 12.9 18.0* 12.8 HGB 9.8* 10.3* 10.6* HCT 31.1* 33.1* 33.7* PLATELET 224 264 276 PT -- -- -- INR -- -- -- PTT -- -- -- Recent Labs Basename 10/09/135 10/08/13 0710/07/13 0420 NA 133* 139 138 K [...] 7 mls/hour with no PCEA function Hydromorphone ACCOUNTING LECTURER Oral oxycodone Assessment: 18 yo F high-risk [...] DE JESUS IVERSON MD 10/09/2013 Pager # [phone] I was the attending physician supervising the resident in the above care and I, participated and was present with the resident for the entire procedure. MERRITT RAMACHANDRAN MD * Marita Sprague MD - 10/09/2013 8:01 AM EDT Delivery Note Information for the patient's : Christiano Porras [[id number]] Delivery Date and Time:10/08/2013 4:21 AM Delivery [...] around 4/10. Has an epidural with dilaudid ACCOUNTING LECTURER. She is tolerating diet moderately, urinating via [...] Contraception: Will discuss with patient Pain: dilaudid ACCOUNTING LECTURER likely d/c today and transition to po [...] until ambulatory Marita Sprague MD * Zoie Ramirez RN - 10/09/2013 6:51 AM EDT Pt pumping close to 3 hour schedule. Positive reinforcement provided. ZOIE RAMIREZ, RN * Alexandr Castaneda MD - 10/09/2013 5:46 AM EDT Inpatient Cardiology Progress Note Patient: [facility] Day 5 days Active Problems: 24 hour [...] in place. Laboratory: Recent Labs Basename 10/09/13 03310/08/13 0700 10/07/13 0420 WBC 12.9 18.0* 12.8 [...] (10/09/13 0650) ??? [DISCONTINUED] HYDROmorphone ??? [DISCONTINUED] ACCOUNTING LECTURER smith ??? lactated ringers 20 mL/hr (10/09/13 0650) Scheduled Meds: ??? [DISCONTINUED] metoprolol tartrate 12.5 mg Oral BID ??? pediatric multivitamin 1 tablet Oral Daily ??? sodium chloride 0.9 % 5 mL Intravenous BID ??? metoprolol tartrate 12.5 mg Oral BID PRN Meds:.oxyCODONE, simethicone, [DISCONTINUED] diphenhydrAMINE, [DISCONTINUED] prochlorperazine, [DISCONTINUED] ondansetron, [DISCONTINUED] nalOXone, [DISCONTINUED] ACCOUNTING LECTURER smith, [DISCONTINUED] HYDROmorphone, acetaminophen Assessment/Plan: 18yo F [...] their recs. - Pain control changed from ACCOUNTING LECTURER pump to hydromorphone PO plus IV dilaudid for breakthrough pain. FEN/PPX: -DVT: ambulating -FEN/Diet: Regular diet replace K/Mg for goal 06/13 -Access: PICC -Code Status: Full code -DISPO: pending OB recs Jayde Humphries PGY-1 Internal Medicine S1 TEAM PAGER #[phone] 10/09/2013 Staff Rounding Addendum: I interviewed and examined the patient during comprehensive bedside rounds with Dr. Humphries. I concur with the summary of interval events, active hospital- focused problem list and plan of care. I personally reviewed the medications, laboratory results, treatment decisions and updated the patient onall of these elements. The assessment and plan were developed in discussion between Dr. Alexis calderon. Ms. Porras continues to be clinically stable and we would like to start to transition her back to a medicine regimen for her cardiomyopathy. We will start to slowly uptitrate her beta-blockade. As she is considering we will hold off on the addition of an ZEUS-I or ARB for now. Alexandr Castaneda MD Staff Dimensional Integration Engineer Pager #[phone] * Alexandr Castaneda MD - 10/08/2013 6:05 [...] 12.5 BID (home med) Pediatric multivitamin Fentanyl ACCOUNTING LECTURER Pitocin gtt Tylenol PRN Cervidil PRN Terbutaline [...] labor JAYDE HUMPHRIES MD Cardiology S1/Team Pager [phone] 10/08/2013 Staff Rounding Addendum: I interviewed and [...] discussion between Dr. Humphries andmindy. Ms. Porras is clinically stable after her and we are following her volume statusclosely. She has not yet needed aggressive volume management though this could change as she experiences post-surgical volume shifts. Alexandr Castaneda MD Staff Dimensional Integration Engineer Pager #[phone] * Marita Sprague MD - 10/07/2013 9:15 [...] hr BP: (96-144)/(53-98) Cervix Exam: Dilation: 2.5 (10/07/132115) Effacement: 90 Station: -1 Position: Posterior Consistency: Soft Taylor Score: 8 OB Examiner: Tamara Heart Rate Interpretation: Mode: continuous external (10/07/132029) HR (beats/min): 140 Variability: moderate (amplitude range [...] been persistent. Continues to be difficult to pickle sorter contractions on toco. Pt resuscitated with O2 [...] Schneider RN - 10/07/2013 8:51 PM EDT 1915- report received from WILLOW Varma and care [...] 2139- 500 ML bolus of LR given. 2154- pt turned to left side by order of MD Tamara. 2245- pt resting comfortably with eyes closed. SO, Petr at bedside. 0045- pt comfortable and resting. SCD placed bilaterally on lower legs. 0100- Pitocin restarted per MD Erasmo. 0130- pt slightly uncomfortable. Turned to right side. 0154- [place] not tracing contractions. Adjusted and now is showing contractions. 0215- FHR deceleration from baseline to zaki of 80. Pitocin stopped. BP charge nurse, WILLOW Red notified. Pt turned to left tilt position. 6- WILLOW Red, MD Erasmo present at bedside. [...] boy. Baby limp and pale, transferred to [facility] with NICU present. * Marita Sprague MD [...] Now with category 2 tracing. Difficult to pickle sorter contractions on toco. Pt resuscitated with O2 [...] seen, examined, and plan discussed with Dr. Sprauge. GRACE JUAREZ MD PGY4 10/07/2013 Attending note [...] Consistency: Soft Taylor Score: 8 OB Examiner: brad Rodriguezidil placed at 2200 hrs Heart Rate Interpretation: [...] PLATELET 276 269 264 Recent Labs Basename 10/07/130 10/06/130 10/05/13 0330 NA 138 137 138 K 4.1 4.3 3.9 CL 103 102 103 CO2 19* 21* 22 BUN 8* 9* 8* CREATININE 0.59 0.56 0.57 GLUCOSE 99 93 79 Recent Labs Basename 10/07/130 10/06/130 10/05/13 0330 CALCIUM 9.5 9.2 8.9 MAGNESIUM -- -- -- PHOS -- -- -- Recent Labs Basename 09/19/13 1451 06/30/13 1156 BILITOT 0.1 0.1 BILIDIR <0.1 <0.1 ALBUMIN 3.2 3.6 ALKPHOS 106 70 ALT 13 6 AST 19 11 Recent Labs Basename 09/19/13145006/30/13 1156 TROPONINT -- -- CK -- -- [...] labor SRAVANTHI POP MD Cardiology S1/Team Pager [phone] 10/07/2013 Attending Attestation Please see Dr. Pop's [...] of two midnights or is on the [facility] inpatient only procedure list (status C) [...] of her labor. Alexandr Castaneda M.D. Staff Dimensional Integration Engineer [facility] Heart and Vascular Center [facility] Pager #[phone] * Rod Wyatt RN - 10/07/2013 5:07 AM EDT 0506- Pt c/o discomfort in lower back, and top of back of legs. Several position changes attempted.Hot pack applied to back. Pt in SF position with legs elevated a pillow. Offered pain medicine, pt declines at this time. 0520- pt to BR. * Estephania Heller RN - 10/07/2013 4:19 AM EDT 0445-Gi Wyatt resumed care * Estephania Heller RN - [...] Consistency: Soft Taylor Score: 8 OB Examiner: brad Rodriguezidil placed at 2200 hrs Heart Rate Interpretation: [...] Terbutaline x 1 prn uterine hyperstimulation with Poker In RN in CV to carry ZAINAB MEDINA MD, PGY1 10/07/2013 [...] Terbutaline x 1 prn uterine hyperstimulation with Poker In RN in CVCC to carry SIDNEY CANELA MD, PGY4 10/06/2013 Dr. Canela and I reviewed the findings and there are no changes to our management plan. Pt. Will be reviewed with oncoming attending at morning rounds. Plan is in place if c/s becomes necessary (main OR room 22 with lead maintenance technician to be called). * Shaneka Wadsworth RN - 10/06/2013 8:43 PM EDT 1999- pt is resting in bed, up to [...] cervical exam. 2199- SVE by Dr Canela: /2. Pt tolerated exam well, was premedicated with IV fentanyl by CVCCRN. cervadil placed by Dr Canela. Effects of [...] Terbutaline x 1 prn uterine hyperstimulation with Poker In RN in CVCC to carry MARY BETH OLIVER MD, PGY3 10/06/2013 I have personally reviewed this patients progress in labor and agree with the documentation above. Reassuring surveillance and some progress in cervical ripening GLORIA MENARD MD * Vicky Caballero RN - 10/06/2013 4:13 PM EDT Office of Care Management (OCM) / Clinical Editor (CRC)/ Initial Assessment Discussed patient with Provider Team and in multidisciplinary discharge-planning rounds. Reviewed record and interviewed patient. Introduced/reviewed CRC role and services accepted. REASON for HOSPITALIZATION: High risk teen Cardiomyopathy. Mary is a 18 y.o single at 36 5/7 weeks gestation admitted to the [facility] for induction of labor in a setting [...] labor and deliver (if vaginally) in the [facility].with cardiac monitoring. Cervical ripening in progress to be followed by IOL. OB/L&D nurse at bedside. SOCIAL / FAMILY SUPPORTS: Mary is in an intact relationship with RASHEED Gonsalez who lives with Mary and her family (mother and step father) as well as 2 of her 3 siblings (11 year old brother and 5 year old sister) in [place], [place]. She also has a 23 year old brother (born to her mom at the age of 14) Her mom Estephania Muse is a primary support. She also notes her grandmother and step-mother. Wallace is present and appears attentive and supportive. He plans to stay at her bedside throughout the IOL/Delivery process. Mary notes 5-6 other relatives that live in the [facility] that have been to visit her since her admission. Wallace has his skip load driver's license, but not a working automobile. [...] be named Julian. Petr's family lives in [place], [place] and plans to be at [facility] for the as well. ADVANCE DIRECTIVES: None. Pt is under 18 and not able to complete an A.D. of her own. Her mother isher legal decision maker at this time (for consents and decisions should Mary not be able to speak her choices. (Verified with Risk Management) HEALTH /PRESCRIPTION COVERAGE: [place] Medicaid primary, Pt states her step dad (Chad cain as a dependent on his [employer] policy as a secondary insurance. CURRENT HOME/COMMUNITY SERVICES/EQUIPMENT: DME: None prior to admission Home Health Agency: None prior Other: Pt is applying for WIC/food stamps once baby is born PSYCHIATRIC NURSE PRACTITIONER REFERRAL: Notified OB PSYCHIATRIC NURSE PRACTITIONER - for Support/Financial/Medication Assistance; See PSYCHIATRIC NURSE PRACTITIONER notes for further needs. Will meet with patient after delivery and once stable/recovered. PRIMARY CARE PHYSICIAN: DAVID ALDRICH MD [address] / [facility] [address] POTENTIAL DISCHARGE NEEDS: Pt states she has furniture, stroller, supplies for baby. DOES NOT HAVE AN CAR SEAT AND MAY NEED ASSISTANCE WITH THIS. VNA F/U recommended. [facility] resources and referrals. ([facility] referral) PATIENT/FAMILY EDUCATION NEEDS: All aspects of care. Self Care post delivery. Controlplan. ANTICIPATED BARRIERS TO DISCHARGE: None TRANSPORTATION @ D/C: Mother/Step-father PLAN: CRC will continue to monitor progress, follow for continuity of care and assist with discharge planning while hospitalized. PSYCHIATRIC NURSE PRACTITIONER will follow as well. . * Alexandr [...] monitoring. 24 Hour Events: Was moved to [facility] 10/05. OB has begun the process of [...] U/L limbs Laboratory: CBC: Recent Labs Basename 10/06/1343910/05/13 03309/19/13 1451 WBC 11.8 10.1 12.3 HGB 10.5* 9.9* 10.0* PLATELET 269 264 296 Chemistry: Recent Labs Basename 10/06/1343910/05/13 03309/19/13 1451 NA 137 138 139 K 4.3 3.9 4.1 CL 102 103 104 CO2 21* 22 23 BUN 9* 8* 6* CREATININE 0.56 0.57 0.56 GLUCOSE 93 79 122 Recent Labs Basename 10/06/1343910/05/13 0330 09/19/13 1451 CALCIUM 9.2 8.9 9.7 MAGNESIUM -- [...] Humphries PGY-1 Internal Medicine S1M1 Team Pager #[phone] 10/06/2013 Cardiology Attending Attestation Please see Dr. 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 She is currently undergoing cervical ripening and is stable from a cardiovascular perspective (no difficulty breathing, no chest discomfort, no orthopnea, edema as expected).We will continue to monitor her closely in the CVCC unit. Alexandr Castaneda M.D. Staff Dimensional Integration Engineer [facility] Heart and Vascular Center [facility] Pager #[phone] * Gloria Menard MD - 10/06/2013 11:48 [...] ?? Terbutaline x 1 prn, RN in CC to carry Patient was seen and evaluated with Dr. Canela PGY-[address] Menard Attending. CONCHITA ECHOLS MD PGY-1 10/06/2013 I saw and reviewed this patients progress in labor and agree with the documentation above. She is stable and has reassuring surveillance GLORIA MENARD MD * Sravanthi Avalos RN - 10/06/2013 8:07 AM EDT 07- Report received from Gurpreet Weathers RN and [...] to sleep in chair at bedside. 1007- [place] readjusted, patient reports feeling crampy occasionally, [...] # 5 placed at this time. 1150- [place] readjusted following maternal movement. 1152- Alessio Da Silva MD Anesthesia at bedside discussing plan of care with patient. 1249- Patient states that she occasionally feels crampy but nothing consistently. 1254- Up to void, toco tracing maternal movement. 1305- [place] zeroed, patient sitting up eating lunch in bed. States that the T- pump is help to relieve her lower back pain. 1343- Zohaib Hurst RN covering quality analyst/technical writer for break. Dr Canela and Dr Jesus Manuel MEDINA reviewed EFM strip. 1440- Care reassumed by quality analyst/technical writer. Patient resting on left side in [...] Repositioned to sitting position to eat dinner. [place] and U/S readjusted. [place] adjusted frequently throughout day in attempt to trace contractions. Patient denies painful contractions at this time. 1744- Up to bathroom to void, telemetry EFM applied. 1826- Patients mother at bedside visiting. 1842- Ultrasound EFM adjusted to obtain continuous heart tracing. 1815- Report to May Wadsworth RN and care [...] MD Heart Rate Interpretation: Mode: continuous external (10/05/132230) HR (beats/min): 155 Variability: moderate (amplitude range [...] Weathers RN - 10/05/2013 8:55 PM EDT 1914 - RN to [facility] 25 for bedside report, RN report received from Angel Avalos RN, pt care assumed, pt on EFM/toco, FHR WNL 1944 - Grace RIVAS RN to bedside, VS and assessment by DRU RN as charted 1946 - Pt changing position, EFM adjusted 1950 - Pt given Tylenol for cramping and vitamin as charted 1999 - Pt having irregular ctx, c/o cramping, FHR baseline 135 bpm, moderate variability, accels, no decels 2030 - Pt OOB to void 2101 - Pt given Metoprolol as charted 2129 - Dr. Hernanedz and Zohaib Rodriguez Med Student to bedside, [...] Ibrahim (4), Miso #2 placed as charted 225 - Pt OOB to void 230 - This RN return to bedside, pt care assumed 0000 - Pt having irregular ctx, c/o cramping, tolerating well, FHR baseline 135 bpm, accels, no decels 0100 - RN discussed pain management with Dr. Maykel MD to change frequency of Tylenol for pt's cramping, RN updated CVCC RN Grace 0123 - Pt given Tylenol [...] CE 0701 - CE by Dr. Echols (0.5//-4), long, posterior, firm, cephalic, taylor score 0 0702 - Miso #[address] Canela as charted 0730 - Bedside report given to Angel Weathers RN * Rolf Hager RN - 10/05/2013 6:48 PM EDT Patient transferred to [facility] in anticipation of delivery induction. Able to [...] 36w4d gestation, ROHINI 10/29/2013 by 14 week admitted [...] 10/05/2013 5:19 PM EDT 1649- Patient in [facility] for induction of labor. Awaiting IV placement and lab draw. EFM explained andplaced on patient. [facility] RN collaborating with quality analyst/technical writer in patients care. Patient and significant other Petr asking appropriate questions. 1710-Patient turned to left tilt. 1732- Repositioned to sitting up for dinner. [place] readjusted. 1756- IV team at bedside [...] - 10/05/2013 12:28 PM EDT Care Management(OCM)/Clinical Editor(CRC) CRC Service: Cardiology, Cardiothoracic and Thoracic Surgery TORSTEN Larson RN Pager # [phone] Record reviewed and patient discussed with multidisciplinary team. Pt will transfer to [facility] as soonas bed is available. TC with Priscilla Caballero, OB CRC [phone],. She will assist with d/c planning when pt is medically ready for d/c as well as be a resource while on ICCU/CVCC. Astrid Mittal, PSYCHIATRIC NURSE PRACTITIONER #[id number], ,will be following pt as well. Priscilla plans to touch base with Astrid regarding AD completion. Rene Javier PSYCHIATRIC NURSE PRACTITIONER, #[id number] for Cardi updated, and can assist with AD if needed. ( Pt is 18). 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 My history, physical exam findings, assessment, and plan are reflected in that note, except as noted below. Transfer to [facility] today. Induction and monitoring per OB. labor arbitrator is alerted and ready if need for advance cardiac support. Mare Smith MD, [facility] Attending Dimensional Integration Engineer Pager [phone] * Grace Reyna MD - 10/05/2013 7:23 [...] irregular contractions NST Times NST Start Time 2126 NST Stop Time 2150 I personally have reviewed the heart rate [...] was followed by Dr. Leon Hoang in [place]. It seems as though she was fairly [...] She was referred to Grace Whitlock with MFM at the request of Dr. Hoang for [...] MD PGY-1 Internal Medicine S1 Cardiology Pager #[phone] 10/04/2013 Attending Addendum: The patient was seen [...] The plan was reviewed with her primary property insurance agent, Dr. Gallegos and the obstetrical service. Transferred to [facility] tomorrow for induction Mare Smith MD, [facility] Attending Dimensional Integration Engineer Pager [phone] documented in this encounter Procedure Notes * Provider, Scanning - 10/13/2013 8:24 AM EDTAssociated Order(s): SCAN DOC: ARCHITECTURAL DRAFTER * Teodoro Neff RN - 10/07/2013 3:12 [...] to the planned procedure. Hand Hygiene: The separator inserter did perform hand hygiene prior to line insertion. Catheter type: PICC Lot number: [id number] Procedure Technique: Skin was prepped with chlorhexidine. [...] decelerations, though it was difficult to initially pickle sorter contractions on toco due to the patient's [...] was performed. EBL 1200cc. A live female was delivered. The surgery was complicated by head entrapment. APGARS were 0, 6 and 7 at one, five, and ten minutes respectively, and a weight of 3010g. Please see the operative note for more details. The infant was handed to awaiting NICU staff. Cord [...] Information for the patient's : Christiano Porras [[id number]] DELIVERY SUMMARY FOR Christiano Porras (please note [...] Delivery Type: Delivery Type (Specific):Lower Segment Transverse [[id number]] Presentation/Position Christiano Porras : Breech Failed Operative [...] Other Providers: Resident Delivery Nurse Charge Nurse Guidance Director Scrub Nurse Scrub Nurse Registered Nurse Registered Nurse Charge Nurse Grace Mercado ICDorcas Staff Present: yes Delivery Location: OR Living?: Yes APGARS One Minute Five Minutes Ten Minutes Skin Color: 0 1 1 Heart Rate: 0 2 2 Grimace: 0 1 1 Muscle Tone: 0 1 1 Breathin 1 2 Totals: 0 6 7 INTERVENTIONS Christiano Porras Resuscitation:PPV Suctioning Intubation Suctioning Method: PPV [4];Suctioning [2];Intubation [5] Vocal Cords Visualized:yes Meconium: meconium below vocal cords Resuscitation Comment: Leota Medications: Leota Meds Given: vitamin K erythromycin Naloxone Given?: [...] Mary Porras Patient Age: 18 y.o. Language: Micronesian Race: White Ethnicity: Not nor Admit date: 10/04/2013 Discharge date and time: 10/12/2013 Attending Physician: Alexandr Castaneda MD Discharge Physician: Mary Beth Oliver (OB), Yue Wyatt (Cardiology) Care Provider: Dr. Leon Hoang [place], [place] Follow-up Recommendations for Providers: -Follow up 7-10 days for staple removal in clinic with home economic development manager -Routine 6 week visit with home economic development manager -Follow up with Dr. Gallegos (Cardiology) as [...] pressure withthis increase. Inpatient Provider Contact Information: [facility] FIELD PART[employer] MANAGER Department, Cardiology Department Discharge Diagnoses (Hospital [...] who is at 36w3d weeks gestation by [facility]/S being admitted for induction of labor for [...] Cardiology admit note cut and paste) Mary Porars is a 18 y.o. year old female [...] was followed by Dr. Leon Hoang in [place]. It seems as though she was fairly [...] She was referred to Grace Whitlock with MFM at the request of Dr. Hoang for evaluation of persistent maternal cardiac dysfunction. She is here for induction of labor in the CCU, admitted from Dr. Gallegos's clinic. Hospital Course Including Delivery and Events # , induction of labor, and delivery Patient was admitted to the Cardiology service as below. She was transferred to [facility] on HD#2 for initiation of induction of [...] stapleremoval early next week with her primary economic development manager, as well as routine 6 week follow [...] She will follow up with her primary Dimensional Integration Engineer Dannielle Gallegos. Delivery Information Information for the patient's : Christiano Porras [[id number]] INFORMATION Christiano Porras 10/08/2013 4:21 AM by Lower Segment Transverse Sex: male Gestational Age: 37w0d Measurements: Weight: 6 lb 10.2 oz (3010 g) APGARS One Minute Five Minutes Ten Minutes Totals: 0 6 7 EBL: [id number] Vital signs at Discharge: BP: 118/67 mmHg, [...] Lab Data: Labs: Recent Labs Basename 10/10/13 0805 10/09/13 03310/08/13 0700 WBC 13.5* 12.9 18.0* HGB 9.1* 9.8* 10.3* HCT 29.6* 31.1* 33.1* PLATELET 227 224 264 Recent Labs Basename 10/10/13 0805 10/09/13 0335 10/08/13 0700 NA 139 133* 139 K 4.2 4.0 4.1 CL 103 100 106 CO2 25 25 21* BUN 8* 9* 9* CREATININE 0.46 0.63 0.57 Recent Labs Basename 10/10/13 0805 10/09/13 0335 10/08/13 0700 CALCIUM 8.9 8.8 8.6 MAGNESIUM 0.69 [...] this in detail. Call your doctor or superintendent of generation for: Fever more than 100.5 Heavy bleeding [...] follow up appointment. You may call the [facility] at any time for guidance or for answers to questions that come up prior to you follow up appointment. Your [facility] Provider can be reached during office hours at [facility] Follow-up Clinic AFTER OFFICE HOURS for the economic development manager or superintendent of generation instrumentation fitter Provider electronic signature confirms that discharge instructions were reviewed with the patient. A copy was printed and given to the patient. Future Appointments and Orders Future Appointments: Provider: Department: Dept Phone: Center: 11/02/2013 2:30 PM Dannielle Gallegos MD Cardiology [phone] [facility] Future Orders Please Complete By Expires Referral to Home Health - at DISCHARGE [TPC1274 CPT(R)] Process Instructions: Scheduling Instructions: Comments: Mary Porras Being discharged to own home: [address] [facility] [address] [facility] [address]* [phone] (home) No relevant phone numbers on file. HOME HEALTH AGENCY: [facility] PHONE: [phone] FAX: [phone] RN orders: 1. Assess postoperative recovery. Assess cardio-respiratory status, intake and output, incisional healing, ambulation, pain management, lovenox administration, medication management. 2. Assess breast feeding/pumping for 3. Assess care management, clinical status including risk for depression. 4. Provide care guidance, anticipatory guidance for maternal post period and assist with connecting to appropriate community resources. Start of care within 24-48hrs of discharge of from [facility]. Please see mom/baby together. Please note that any additional orders needed or changes will need to be obtained from this patient's PCP: DAVID ALDRICH MD [address] [place] [id number] All A agencies which cover the area of patient's residence have been reviewed, either verbally sharan writing, and patient/family have chosen the home health care agency noted Questions: Responses: Agency name and contact information [facility] Patient location post discharge Home: [facility] What services are requested Registered Nurse Start date Responsible MD post discharge contact info Maternal Medicine at [facility] [phone] Discharge References/Attachments None * Plan of Care - Zoie Ramirez RN - 10/09/2013 4:00 AM EDT Problem: Pain, Acute (Adult, Obstetrics) Intervention: Pain Management Interventions Pt utilizing ACCOUNTING LECTURER, although needs reminding d/t sleeping intermittently between scheduled /nursing assessments. States relief with use of ACCOUNTING LECTURER. * Med Student Progress Note - Chela [...] Date 10/08/13 0700 - 10/09/13 0659 Shift [id number] [phone] 24 Hour Total I N T A [...] #2 s/p c/s. Pain Control: -- Hydromorphone ACCOUNTING LECTURER and epidural Cardiac: --She is being closely monitored by cardiology. Pulmonary: -Adequate O2 sat Gastrointestinal: no nausea or vomiting. Genitourinary: keep christianson in place. Fluid/ Electrolytes: Continue to closely monitor input/output and watch for decompensation. Ambulation: Hope to have patient ambulating with assistance tomorrow. Disposition: Continue inpatient hospitalization management for post-op c/s with close cardiac monitoring for pre-existing dilated cardiomyopathy. Chela Jenkins Elena 10/08/2013 RUBI TEJEDA MD * Op Note - Grace Juarez MD - 10/08/2013 8:56 PM EDT Operative Note Patient: Mary Porras : 1995 Case Date: 10/08/2013 Surgeon: Surgeon(s) and Role: * Marita Sprague MD - Primary * Grace Juarez MD - Resident-Surgeon Chief Preoperative diagnosis: nonreassuring status, latent labor Postoperative diagnosis: nonreassuring status, latent labor Procedure(s): Primary section Anesthesia: epidural Findings: liveborn male Complications: difficult extraction of head Fluids: 2000 [...] and the incision extended laterally bluntly. The infant was found to be initially in vertex [...] and cut. The was handed to the [facility] NICU team. Cord gases and cord blood [...] Operative Note Patient Name: Mary Porras : [id number] MR#: [id number] Case Date: 10/08/2013 Surgeon: Surgeon(s) and Role: * Marita Sprague MD - Primary * Grace Juarez MD - Resident-Surgeon Chief Preoperative diagnosis: nonreassuring status, latent labor Postoperative diagnosis: nonreassuring status, latent labor Procedure(s): @ DELIVERY Anesthesia: epidural Findings: liveborn male Complications: difficult extraction of head Fluids: 2000 Estimated Blood Loss:1200 Drains: bladder catheter Disposition: regional anesthesia adiminstered without incident and patient returned to the [facility] Condition: doing well without problems (Please see [...] provided. * Plan of Care - Rose Michaud LPN - 10/07/2013 4:32 PM EDT Problem: Health Knowledge, Opportunity for Enhanced (Adult, NICU, [place], Obstetrics, Pediatric) Goal: Knowledgeable about Health Subject/Topic Patient will demonstrate the desired outcomes. Outcome: Outcome achieved Date Met: 10/07/13 Peripherally Inserted Central Catheter (PICC) Teaching Sheet Peripherally inserted central catheters (cczd-ny-jmzn) (PICC) are used when you need IV [...] midline catheter? PICC lines are used for ferry terminal agent treatments. PICC lines may be used for [...] can be set up via the nurse Household Manager to help you. What are possible complications [...] on the site along with a little schnedier which will help keep the catheter in [...] Efficacy, Safety, Use, and Administration of Cathflo, [employer] 2005 * Plan of Care - Lu Cox RN - 10/07/2013 12:30 PM EDT Problem: Health Knowledge, Opportunity for Enhanced (Adult, NICU, , Obstetrics, Pediatric) Goal: Knowledgeable about Health Subject/Topic Patient will demonstrate the desired outcomes. Peripherally Inserted Central Catheter (PICC) Teaching Sheet Peripherally inserted central catheters (jctw-my-ukkp) (PICC) are used when you need IV [...] midline catheter? PICC lines are used for ferry terminal agent treatments. PICC lines may be used for [...] can be set up via the nurse Household Manager to help you. What are possible complications [...] Vascular Access Device Selection, Insertion, and Management, [employer] 12/17. A Review of the Efficacy, Safety, Use, and Administration of Cathflo, [employer] Inc. 2005 * Plan of Care - Reema Deluna RN - 10/07/2013 8:02 AM EDT 0720 Bedside report received from Gi Wyatt RN. Pt sleeping on left side. No contractions seen. FHR adjusted and now recording better. Accelerations seen. Respirations easy. Color pink. Left undisturbed at present. Partner in room, sleeping near bedside. 0745 Pt awakened by CC RN for med. Pt reports lower back [...] of care reviewed with pt.Pt verbalizes understanding. [place] adjusted several times to try and [...] 1115 Medicated with Fentanyl. 1120 Cervical exam. 2-3//-2. Decision made to utilize Pitocin but concerns were raised due to theonly PIV access is a 22 gauge angiocath in right ventral forearm. Will speak with Cardiology to develop an alternative plan. Pt back to right side. Understands need for larger IV access for induction. 1130 Spoke with Tub Operator to voice need for better IV access. Will have IV team take another look instead of considering a central line at this time. Tub Operator also spoke with Dr Juarez regarding above. 1630 Pt had been removed from EF earlier in the day as no induction [...] 6 mU andno contractions seen or palpated. 1810 Questionable decelerations continue with pt asleep in the chair. Unable to record any contractions. Turned to right lateral while in chair. Dr Juarez called to come down to review strip. 1820 Pt escorted back to bed. Dr Juarez in to see pt. 1824 Cervical exam done then repositioned to left side. Mild contraction [...] RN's progress note)* * Miscellaneous - Provider, Lindsey - 10/05/2013 12:56 PM EDT * Consult Note - Isaiah Hernandez MD - 10/04/2013 9:00 PM EDT Obstetrical Consult Note Mary Porras is a 18 y.o. female who is at 36w3d weeks gestation by [facility]/S being admitted for induction of labor for [...] Rate Interpretation: Mode: continuous external (NST) (10/04/13 2859) HR (beats/min): 140 Variability: moderate (amplitude range [...] June demonstrated an EF of 51%. Her property insurance agent recommended that she have her baby earlier [...] NST Labs: Will attempt to obtain from [facility] GBS status: will collect today [...] IOL once she is transferred to the [facility] for higher level monitoring. She should have [...] Status: Full Code Sneha Rodriguez, MS IV [facility] 10/04/13 Patient seen and evaluated with resident [...] 1:00 PM EST Appointment [place] [address] Anton Márquez MD [facility] [place] [address] 01/27/2024 3:00 PM EST Office Visit Cardiology at [address] [address] Anton Márquez MD [facility] [address] documented as of this encounter Procedures Procedure Name Priority Date/Time Associated Diagnosis Comments ARCHITECTURAL DRAFTER SCAN 10/13/2013 8:24 AM EDT BMP W/FASTING [...] in this encounter Results * SCAN DOC: ARCHITECTURAL DRAFTER (10/13/2013 8:24 AM EDT) Anatomical Region Laterality [...] ORDERA BLES CERNER MILLENNIUM * (ABNORMAL) Hemogram (10/10/2013 8:05 AM EDT) [...] In Lab Alexandr Castaneda MD HEMATOLOGY ORDERA ABRAHAMS DARIUS MONTENEGROENNIUM * (ABNORMAL) BMP w/fasting Glucose (10/10/2013 8:05 [...] of Diabetes Mellitus, Position Statement from the [place] [employer]. ??Diabetes Care, Volume 33, Supplement 1, Mar 2009 Blood Urea Nitrogen 8(L) 10 - 20 mg/dL CERNER MILLENNIUM Creatinine 0.46 0.20 - 0.70 mg/dL CERNER MILLENNIUM Comment: Please note that the pediatric reference intervals supplied above were not validated at [facility]. Results from pediatric patients should be interpreted [...] the following links into your internet browser. [email or web address] Blood specimen (specimen) 10/10/2013 8:05 AM EDT 10/10/2013 8:20 AM EDT Narrative Resulting Agency Comment Spec In Lab Alexandr Castaneda MD CHEMISTRY ORDERAB LES CERNER MILLENNIUM * (ABNORMAL) Differential, Automated (10/09/2013 3:35 AM [...] In Lab Alexandr Castaneda MD HEMATOLOGY ORDERA BING CERNER MILLENNIUM * (ABNORMAL) Basic Metabolic Panel (non-fasting) (10/09/2013 3:35 AM EDT) Glucose 100 60 - 199 mg/dL CERNER MILLENNIUM Comment:Diabetes: >=200 mg/d L plus symptoms Blood Urea Nitrogen 9(L) 10 - 20 mg/dL CERNER MILLENNIUM Creatinine 0.63 0.20 - 0.70 mg/dL CERNER MILLENNIUM Comment: Please note that the pediatric reference intervals supplied above were not validated at [facility]. Results from pediatric patients should be interpreted [...] the following links into your internet browser. [email or web address] Blood specimen (specimen) 10/09/2013 3:35 AM EDT 10/09/2013 3:52 AM EDT Narrative Resulting Agency Comment Spec In Lab Alexandr Castaneda MD CHEMISTRY ORDERAB LES Performing Organization Address [facility] de Phone Number [facility] * Specimen to Pathology (NON-OR) (10/08/2013 8:42 AM EDT) AP Specimen 10/08/2013 8:42 AM EDT 10/08/2013 8:42 AM EDT Narrative [facility] - 10/08/2013 8:42 AM EDT Specimen requisition ordered. ??Separate Pathology report to follow Alexandr Castaneda MD PATHOLOGY/CYTOLOG Y ORDERABLES Performing Organization Address [facility] de Phone Number [facility] * Surgical Pathology Report (10/08/2013 7:07 AM EDT) Final Diagnosis ? [facility] ? Provider: ?? SIDNEY CANELA ??Pt. Name: ?? MARY PORRAS ? Acc #: ?[id number] ?Pt. ? Col Date: ?? 10/08/2013 ? /Sex: ?1995,(18 years),Female ? Rec Date: ?? 10/09/2013 ? LOC: ?BP ? SURGICAL PATHOLOGY ? ---Pathologic Diagnosis--- ? Placenta (398.0 grams): ?1. Third-trimester placenta. ?2. No evidence of acute chorioamnionitis or funisitis. ? CR-0 ? 10/11/13 ? [facility] ? 10/11/13 Verified by: ? Josue Hernandez MD. ? Pathologist ? (Electronic Signature) ? The [...] attached and detached ? cord. ? Membranes: [place], semitransparent, marginal insertion. ? Cord: 44.5 x [...] ? None provided. 10/11/2013 4:02 PM EDT [facility] TISSUE SPECIMEN FROM PLACENTA / Unknown 10/08/2013 7:07 AM EDT 10/08/2013 7:07 AM EDT Sidney Canela MD PATHOLOGY/CYTOLOGY ORDERABLES RAFAJESUS MONTENEGROCATYIUM [facility] [place] [address] * Specimen to Pathology (surgical or derm) (10/08/2013 7:07 AM EDT) AP Specimen 10/08/2013 7:07 AM EDT 10/08/2013 7:07 AM EDT Narrative CERNER MILLENNIUM - 10/08/2013 7:07 AM EDT Specimen requisition ordered. ??Separate Pathology report to follow Alexandr Castaneda MD PATHOLOGY/CYTOLOG Y ORDERABLES DARIUS WEINBERGIUM * Nucleated Red Blood Cells (10/08/2013 7:00 AM EDT) NRBC% auto 0.0 0.0 - 0.2 % CERNER MILLENNIUM NRBC Absolute 0.000 0.000 - 0.012 x10(3)/mcL RAFANER MILLENNIUM Blood specimen (specimen) 10/08/2013 7:00 AM EDT 10/08/2013 7:12 AM EDT Narrative Resulting Agency Comment Spec In Lab Mare Smith MD HEMATOLOGY ORDERABLE S Performing Organization Address City/[facility]/ZIP Co de Phone Number CERJESUS MONTENEGROENNIUM * (ABNORMAL) Differential, Automated (10/08/2013 7:00 AM [...] Mare Smith MD HEMATOLOGY ORDERABLE S CERNER MONIENNIUM * (ABNORMAL) Hemogram (10/08/2013 7:00 AM EDT) [...] Metabolic Panel (non-fasting) (10/08/2013 7:00 AM EDT) Glucose 79 60 - 199 mg/dL CERNER MILLENNIUM Comment:Diabetes: >=200 mg/d L plus symptoms Blood Urea Nitrogen 9(L) 10 - 20 mg/dL CERNER MILLENNIUM Creatinine 0.57 0.20 - 0.70 mg/dL CERNER MILLENNIUM Comment: Please note that the pediatric reference intervals supplied above were not validated at [facility]. Results from pediatric patients should be interpreted [...] the following links into your internet browser. [email or web address] Blood specimen (specimen) 10/08/2013 7:00 AM EDT 10/08/2013 7:12 AM EDT Narrative Resulting Agency Comment Spec In Lab Alexandr Castaneda MD CHEMISTRY ORDERAB LES DARIUS KEITH * Place PICC Line: Contact Vascular Access Page [phone] (10/07/2013 4:11 PM EDT) Narrative Teodoro Neff [...] to the planned procedure. Hand Hygiene: The separator inserter did perform hand hygiene prior to line insertion. Catheter type: PICC Lot number: [id number] Procedure Technique: Skin was prepped with chlorhexidine. [...] to the planned procedure. Hand Hygiene: The separator inserter did perform hand hygiene prior to line insertion. Catheter type: PICC Lot number: [id number] Procedure Technique: Skin was prepped with chlorhexidine. [...] In Lab Mare Smith MD CHEMISTRY ORDERABLES CERJESUS MONTENEGROENNIUM * (ABNORMAL) Differential, Automated (10/07/2013 4:20 AM EDT) Neutrophil % 72.0 37.0 - 77.0 % [...] Narrative Resulting Agency Comment Spec In Lab Mrae Smith MD HEMATOLOGY ORDERABLE S Performing Organization Address City/[facility]/ZIP Co de Phone Number DARIUS MONTENEGROENNIUM * (ABNORMAL) Hemogram (10/07/2013 4:20 AM EDT) [...] MD HEMATOLOGY ORDERABLE S Performing Organization Address City/[facility]/ZIP Co de Phone Number DARIUS WEINBERGIUM * (ABNORMAL) Basic Metabolic Panel (non-fasting) (10/07/2013 4:20 AM EDT) Glucose 99 60 - 199 mg/dL CERNER MILLENNIUM Comment:Diabetes: >=200 mg/d L plus symptoms Blood Urea Nitrogen 8(L) 10 - 20 mg/dL CERNER MILLENNIUM Creatinine 0.59 0.20 - 0.70 mg/dL CERNER MILLENNIUM Comment: Please note that the pediatric reference intervals supplied above were not validated at [facility]. Results from pediatric patients should be interpreted [...] the following links into your internet browser. [email or web address] Blood specimen (specimen) 10/07/2013 4:20 AM EDT 10/07/2013 4:28 AM EDT Narrative Resulting Agency Comment Spec In Lab Alexandr Castaneda MD CHEMISTRY ORDERAB LES CERJESUS MONTENEGROENNIUM * (ABNORMAL) Nucleated Red Blood Cells (10/06/2013 [...] MD HEMATOLOGY ORDERABLE S Performing Organization Address City/[facility] Co de Phone Number CERJESUS MILLENNIUM * (ABNORMAL) Hemogram (10/06/2013 4:40 AM EDT) [...] MD HEMATOLOGY ORDERABLE S Performing Organization Address [facility] [facility]/ZIP Co de Phone Number CERJESUS MONTENEGROENNIUM * (ABNORMAL) Basic Metabolic Panel (non-fasting) (10/06/2013 4:40 AM EDT) Glucose 93 60 - 199 mg/dL CERNER MILLENNIUM Comment:Diabetes: >=200 mg/d L plus symptoms Blood Urea Nitrogen 9(L) 10 - 20 mg/dL CERNER MILLENNIUM Creatinine 0.56 0.20 - 0.70 mg/dL CERNER MILLENNIUM Comment: Please note that the pediatric reference intervals supplied above were not validated at [facility]. Results from pediatric patients should be interpreted [...] the following links into your internet browser. [email or web address] Blood specimen (specimen) 10/06/2013 4:40 AM EDT 10/06/2013 4:45 AM EDT Narrative Resulting Agency Comment Spec In Lab Alexandr Castaneda MD CHEMISTRY ORDERAB LES DARIUS WEINBERGIUM * Antibody screen (10/05/2013 6:00 PM EDT) Ab Screen Interp Negative CERJESUS MONTENEGROENNIUM Expires at [id number] on: [id number] RAFANER MILLENNIUM Blood specimen (specimen) 10/05/2013 6:00 PM EDT 10/05/2013 6:21 PM EDT Narrative Resulting Agency Comment Spec In Lab Gloria Menard MD BLOOD BANK LAB ORDER JERRY Performing Organization Address City/[facility]/ZIP Co de Phone Number CERJESUS MONTENEGROENNIUM * ABO/Rh Typing (10/05/2013 6:00 PM EDT) ABORH Type B Pos CERNER MILLENNIUM Blood specimen (specimen) 10/05/2013 6:00 PM EDT 10/05/2013 6:21 PM EDT Narrative Resulting Agency Comment Spec In Lab Gloria Menard MD BLOOD BANK LAB ORDER JERRY Performing Organization Address City/[facility] Co de Phone Number CERJESUS MONTENEGROENNIUM * (ABNORMAL) Differential, Automated (10/05/2013 3:30 AM EDT) Neutrophil % 62.4 37.0 - 77.0 % [...] MD HEMATOLOGY ORDERABLE S Performing Organization Address [facility] Co de Phone Number DARIUS MONTENEGROENNIUM * (ABNORMAL) Hemogram (10/05/2013 3:30 AM EDT) [...] MD HEMATOLOGY ORDERABLE S Performing Organization Address [facility]/ZIP Co de Phone Number DARIUS MONTENEGROENNIUM * (ABNORMAL) Basic Metabolic Panel (non-fasting) (10/05/2013 3:30 AM EDT) [facility] Glucose 79 60 - 199 mg/dL CERNER MILLENNIUM Comment:Diabetes: >=200 mg/d L plus symptoms Blood Urea Nitrogen 8(L) 10 - 20 mg/dL CERNER MILLENNIUM Creatinine 0.57 0.20 - 0.70 mg/dL CERNER MILLENNIUM Comment: Please note that the pediatric reference intervals supplied above were not validated at [facility]. Results from pediatric patients should be interpreted [...] the following links into your internet browser. [email or web address] Blood specimen (specimen) 10/05/2013 3:30 AM EDT 10/05/2013 4:05 AM EDT Narrative Resulting Agency Comment Spec In Lab Alexandr Castaneda MD CHEMISTRY ORDERAB LES DARIUS WEINBERGIUM * GC/Chlam (10/05/2013 12:55 AM EDT) [...] - GENER AL ORDERABLES Performing Organization Address [facility] de Phone Number DARIUS KEITH * (ABNORMAL) Urinalysis with microscopic (10/05/2013 [...] Urine Dipstick Hazy(A) Clear CERNER MILLENNIUM Specific [place] Urine Automated 1.008 1.002 - 1.030 CERNER [...] Smith MD URINE ORDERABLES Performing Organization Address [facility]/ZIP Co de Phone Number DARIUS WEINBERGIUM * Group B Streptococcus Screen (10/04/2013 9:29 PM EDT) GBS Screen Neg CERNER MILLENNIUM Pooled specimen from vaginal introitus and rectal swab (specimen) 10/04/2013 9:29 PM EDT 10/04/2013 9:47 PM EDT Comment:Penicillin Allergy?- >No Narrative Resulting Agency Comment Spec In Lab Mare Smith MD MICROBIOLOGY - GENER AL ORDERABLES Performing Organization Address [facility] Co de Phone Number DARIUS KEITH * Group B Strep Culture Screen (10/04/2013 9:29 PM EDT) Group B Streptococcus Culture ? Patient Name: MARY PORRAS ? Ordered By: MARE SMITH ? MR#: [id number] ?LOC: ??[facility] ? /Sex: ??1995 (18 years), ? Female ? PROCEDURE: Group B Streptococcus Culture ?SOURCE: Vag/Rectal ? COLLECTED: 10/04/2013 21:29 ?FREE TEXT SOURCE: Penicillin Allergy?->No ? STARTED: 10/04/2013 21:47 ? FINAL REPORT ? Final Report ? Verified: 014 10:13 ? No Group B Streptococci isolated ? PRELIMINARY REPORT ? Preliminary Report ? Verified: 014 10:22 ? Culture in progress ? [facility] Pooled specimen from vaginal introitus and rectal swab (specimen) 10/04/2013 9:29 PM EDT 10/04/2013 9:47 PM EDT Comment:PENICILLIN ALLERGY?- >NO Narrative Resulting Agency Comment Spec In Lab Mare Smith MD MICROBIOLOGY - GENER AL ORDERABLES [facility] * (ABNORMAL) - Subsequent External Results [...] 08/24/2013 Historical Provider POINT OF CARE LYNN Mendoza ORDERABLES * (ABNORMAL) - Initial External Results (06/22/2013) ABORH Type B+(Business Intelligence Consultant al Lab) Ab Screen Interp Negative( External [...] Diagnoses Not on filedocumented in this encounter Active and Recently Administered [...] Discontinued, Routine 1542 (Given - Provider: Clarence Otto, WILLOW) enoxaparin (LOVENOX) injection 40 mg (COMPLETED) 40 mg (0.369 mg/kg/dose), Subcutaneous, ONCE, 1 dose, On Wed10/10/13 at 0930, Routine 0957 (Given - Provider: Lizzette Posey, WILLOW) enoxaparin (LOVENOX) injection 40 mg (CANCELED) 40 [...] Posey RN) 0010 (Given - Provider: Dannielle Drummond RN)0622 (Given - Provider: Dannielle Drummond, WILLOW) metoprolol tartrate (LOPRESSOR) tablet 25 mg (CANCELED) 25 mg (0.237 mg/kg/dose), Oral, EVERY 6 HOURS SCHEDULED, First dose (after last modification) on 7/30/14 at 1200, Until Discontinued, Hold for SBP<90 or HR<60, Routine 1203 (Given - Provider: Jorgito Li, RN)1707 (Given - Provider: Kami Valladares, RN)2302 (Given - Provider: Torsten Haredn, WILLOW) 0600 (Due)1153 (Given - Provider: Marita Palma)1800 (Due) pediatric multivitamin pedi chewable tablet 1 tablet (CANCELED) 1 tablet, Oral, DAILY, First dose on Wed10/05/13 at 1100, Until Discontinued 0849 (Given - Provider: Lizzette Posey RN) 1203 (Given - Provider: Jorgito Li, WILLOW) 0829 (Given - Provider: Marita Palma) polyethylene [...] Lizzette Posey RN)2115 (Given - Provider: Dannielle Drummond, WILLOW) 0900 (Given - Provider: Lizzette Posey RN)2100 (Given - Provider: Torsten Harden RN) 0824 (Given - Provider: Marita Palma) PRN Medication Order 10/10/2013 10/11/2013 10/12/2013 camphor-menthol (SARNA) lotion (CANCELED) Topical (Top), 3 TIMES DAILY PRN, Itching, Starting on Wed10/09/13 at 1811, Until Wed10/12/13 at 2007 0608 (Given - Provider: Dannielle Drummond, WILLOW)211 (Given - Provider: Dannielle Drummond RN) ibuprofen [...] Oral, EVERY 3 HOURS PRN, Starting on 10/09/13 at 1018, Until Angelita 10/12/13 at 2007, Pain, Routine 0418 (Given - Provider: Dannielle Drummond, WILLOW)0849 (Given - Provider: Lizzette Posey, WILLOW)1453 (Given - Provider: Lizzette Posey, WILLOW)2121 (Given - Provider: Dannielle Drummond RN) 1425 (Given - Provider: Sylvie Hurst RN) 0137 (Given - Provider: Leslie Tomlinson RN)0829 (Given - Provider: Marita Palma) documented in this encounter Care Teams Chiropractic Physician Relationship Specialty Start Date End Date David Aldrich MD [address] [place] [id number] PCP - General 06/30/13 05/30/18 documented as of this encounter
--- OUTSIDE RECORDS SUMMARY | 2024-01-03 13:14 | XMS_ITS | Encounter Summary ---
[facility] [place] [address] Care Team Providers Care Solution Sales Senior Executive Name Role Phone Pietro Son Primary Care Provider [phone] Encounter Details Date Type Department Care Team (Late st Contact Info) Description 10/06/2013 Surgery [place] [id number] Gloria Menard MD [facility] [place] [address] Not Performed @ DELIVERY (WRVU 16.13) Social History Tobacco [...] Sign Reading Time Taken Comments Blood Pressure 121/71 10/09/2013 11:29 PM EDT Pulse 119 10/09/2013 11:29 PM EDT Temperature 37 ??C (98.6 ??F) 10/09/2013 11: 29 PM EDT Respiratory Rate 16 10/09/2013 11:2 9 PM EDT Oxygen Saturation 92% 10/09/2013 11: 29 PM EDT Inhaled Oxygen Concentration - - Weight 108.4 kg (238 lb 15. 7 oz) 10/05/2013 5:04 AM EDT Height 174 cm (5' 8.5) 10/04/2013 4:25 PM EDT Body Mass Index 34.88 10/04/2013 4:25 PM EDT Body Mass Index Percentile 97.68% 10/11/2013 6:2 6 AM EDT Growth Chart: [facility] (Girls, 2- 20 Years) documented [...] this in detail. Call your doctor or aircraft instrument mechanic for: Fever more than 100.5 Heavy bleeding [...] follow up appointment. You may call the [facility] at any time for guidance or for answers to questions that come up prior to you follow up appointment. Your [facility] [place] [place] Provider can be reached during office hours at [facility] Follow-up Clinic AFTER OFFICE HOURS for the director of retail marketing or aircraft instrument mechanic assembler carbon brushes Provider electronic signature confirms that discharge instructions [...] AM EDT Inpatient Cardiology Progress Note Patient: [facility] 8 days 24 hour Events/Subjective: - [...] Humphries PGY-1 Internal Medicine S1 TEAM PAGER #[phone] 10/12/2013 Staff Rounding Addendum: I interviewed and [...] Humphries and myself. Alexandr Castaneda MD Staff Reset Merchandiser Pager #[phone] * Astrid Lopez, CLOTH BURLER - 10/12/2013 10:14 AM EDT S/O: Met with Pt Mary in room on BP. Mary's cousin was present and holding the baby during this encounter. Mary gave to baby boy Julian on 10/08 at 37 weeks gestation. Mary lives in [place], [place] with her mother, step father and [...] and that she is taking him to [facility] because she doesn't like any of the pediatricians in [facility]. A: Mary is a 18 year [...] is needed at this time. MARTINA Atkins, MANAGER INTERNAL Pager #[phone] * Marita Sprague MD - 10/12/2013 7:42 [...] of breath. Lochia moderate. and bottle feedingfor nutrition. Review of Systems: 6 systems reviewed, [...] of wound care supervision by her local director of retail marketing Will take an ZEUS inhibitor and beta [...] Intake/Output Summary (Last 24 hours) at 10/11/13 0737 Last data filed at 10/11/13 0626 Gross [...] AM EDT Inpatient Cardiology Progress Note Patient: [facility] 7 days Active Problems: 24 hour [...] over shoulders. Laboratory: Recent Labs Basename 10/10/13 0810/09/13 03310/08/13 0700 WBC 13.5* 12.9 18.0* HGB 9.1* 9.8* 10.3* PLATELET 227 224 264 Recent Labs Basename 10/10/13 0810/09/13 03310/08/13 0700 NA 139 133* 139 K 4.2 [...] Humphries PGY-1 Internal Medicine S1 TEAM PAGER #[phone] 10/11/2013 Staff Rounding Addendum: I interviewed and [...] of po furosemide. Alexandr Castaneda MD Staff Reset Merchandiser Pager #[phone] * Vicky Caballero RN - 10/10/2013 4:16 PM EDT Care Management Assessment (Clinical Mail Technician) Patient Information has been reviewed in multi-disciplinary [...] aged, this is his first child. Where: [place], [place] Approx time in community: Year(s) Social Resources: Intact (non-) couple with first child. Petr has been staying in the room with Mary through the CVCC and ICCU stays. Various family members (mom, step dad, grandmother, etc) have been coming from [facility] to visit. Mary states that she has everything she needs for the baby. Extended family in [facility] for support: Yes. Lives with family. Cognitive Resources: Intact Childbirth Education: Yes/No Educational Level: High School (in process of senior year-hopes to complete by February) Functional Status: Ambulatory, Independent, Without limitations. C/S recovery with limitations on lifting/driving x 2 weeks. Complications requiring follow-up: Financial Resources: Limited. OK while living at home. Health Insurance Coverage: [place] Medicaid Post Manager Chosen: [facility] (pt to find name of provider) Declines list of [facility] [place] [facility] providers. Baby's Name: Julian Lobopita Pt given information on adding baby to [facility]. Anticipated Continuing Care Needs: Physical: Recovery from . Initiation of /pumping for ICN infant Emotional: Adjustment to period Psychological: No known hx of anxiety/depression. Referred to social studies department chair for assessment and support while inpatient. Educational: Parenting first Continuing Care Plan Development: At home resources/Discharge supports suggested. Printed materials and suggested community resourcesprovided to patient: Visiting Nurse visits: Offered services of VNA post discharge. Patient accepted on behalf of baby. Didn't really desire VNA for herself. [facility] (n/a) [place] Resource Sheets given. [facility] ([facility]): Md Parent Child Center: [facility] ([facility] [place]) Info provided Provided information on [facility] as local lodging upon discharge. Pt uncertain, but likely to stay to be near her . DME ordered : Breast Pump Breast Pump: Rx to [facility] for Lactina breast pump. remains in ICN with RDS at this time. Other: Have infant car seat, own transportation, and some family support. Referral placed with [facility] upon baby's discharge. [facility] information given. Breast Pump Rx to [facility]. CRC: Priscilla FIORE/ Theresa Morelos. Beeper [phone] * Lelia Del Valle RN - 10/10/2013 2:43 PM EDT Care Management(OCM)/Clinical Mail Technician(CRC) CRC Service: Cardiology, Cardiothoracic and Thoracic Surgery TORSTEN Larson RN Pager # [phone] Record reviewed and patient discussed with multidisciplinary [...] is stable. Mary and Petr live in [place], [place] with her family. Mary is currently [...] baby remains in the ICN. 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 Today is POD#2. Interval Events: s/p epidural with dilaudid PHOTOVOLTAIC INSTALLER, started on oxycodone po Subjective: Complains of [...] AM EDT Inpatient Cardiology Progress Note Patient: [facility] 6 days Active Problems: 24 hour [...] [DISCONTINUED] HYDROmorphone Stopped (10/09/13 1100) ??? [DISCONTINUED] PHOTOVOLTAIC INSTALLER smith ??? [DISCONTINUED] lactated ringers Stopped (10/09/13 [...] [DISCONTINUED] prochlorperazine, [DISCONTINUED] ondansetron, [DISCONTINUED] nalOXone, [DISCONTINUED] PHOTOVOLTAIC INSTALLER smith, acetaminophen Assessment/Plan: 18yo F with PMHx [...] Humphries PGY-1 Internal Medicine S1 TEAM PAGER #[phone] 10/10/2013 Staff Rounding Addendum: I interviewed and examined the patient during comprehensive bedside rounds with Dr. Humphries. I concur with the summary of interval events, active hospital- focused problem list and plan of care. I personally reviewed the medications, laboratory results, treatment decisions and updated the patient onall of these elements. The assessment and plan were developed [facility] Alexandr Castaneda MD Staff Reset Merchandiser Pager #[phone] * Marita Graf, MARCIANO - 10/09/2013 3:31 PM EDT Nutrition Services [...] 7 mls/hour with no PCEA function Hydromorphone PHOTOVOLTAIC INSTALLER Oral oxycodone Assessment: 18 yo F high-risk [...] DE JESUS IVERSON MD 10/09/2013 Pager # [phone] I was the attending physician supervising the resident in the above care and I, participated and was present with the resident for the entire procedure. MERRITT RAMACHANDRAN MD * Marita Sprague MD - 10/09/2013 8:01 AM EDT Delivery Note Information for the patient's : Christiano Porras [[id number]] Delivery Date and Time:10/08/2013 4:21 AM Delivery [...] around 4/10. Has an epidural with dilaudid PHOTOVOLTAIC INSTALLER. She is tolerating diet moderately, urinating via [...] continue once ambulatory and can void spontaneously nutrition: breast Contraception: Will discuss with patient Pain: dilaudid PHOTOVOLTAIC INSTALLER likely d/c today and transition to po [...] 3 hour schedule. Positive reinforcement provided. ZOIE RAMIREZ RN * Alexandr Castaneda MD - 10/09/2013 5:46 AM EDT Inpatient Cardiology Progress Note Patient: [facility] 5 days Active Problems: 24 hour [...] 224 264 276 Recent Labs Basename 10/09/13 03310/08/13 0700 10/07/13 0420 NA 133* 139 138 [...] (10/09/13 0650) ??? [DISCONTINUED] HYDROmorphone ??? [DISCONTINUED] PHOTOVOLTAIC INSTALLER smith ??? lactated ringers 20 mL/hr (10/09/13 0650) Scheduled Meds: ??? [DISCONTINUED] metoprolol tartrate 12.5 mg Oral BID ??? pediatric multivitamin 1 tablet Oral Daily ??? sodium chloride 0.9 % 5 mL Intravenous BID ??? metoprolol tartrate 12.5 mg Oral BID PRN Meds:.oxyCODONE, simethicone, [DISCONTINUED] diphenhydrAMINE, [DISCONTINUED] prochlorperazine, [DISCONTINUED] ondansetron, [DISCONTINUED] nalOXone, [DISCONTINUED] PHOTOVOLTAIC INSTALLER smith, [DISCONTINUED] HYDROmorphone, acetaminophen Assessment/Plan: 18yo F [...] their recs. - Pain control changed from PHOTOVOLTAIC INSTALLER pump to hydromorphone PO plus IV dilaudid for breakthrough pain. FEN/PPX: -DVT: ambulating -FEN/Diet: Regular diet replace K/Mg for goal 06/13 -Access: PICC -Code Status: Full code -DISPO: pending OB recs Jayde Humphries PGY-1 Internal Medicine S1 TEAM PAGER #[phone] 10/09/2013 Staff Rounding Addendum: I interviewed and examined the patient during comprehensive bedside rounds with Dr. Humphries. I concur with the summary of interval events, active hospital- focused problem list and plan of care. I personally reviewed the medications, laboratory results, treatment decisions and updated the patient onall of these elements. The assessment and plan were developed in discussion between Dr. Kristel calderon. Ms. Porras continues to be clinically stable and we would like to start to transition her back to a medicine regimen for her cardiomyopathy. We will start to slowly uptitrate her beta-blockade. As she is considering we will hold off on the addition of an ZEUS-I or ARB for now. Alexandr Castaneda MD Staff Reset Merchandiser Pager #[phone] * Alexandr Castaneda MD - 10/08/2013 6:05 [...] 12.5 BID (home med) Pediatric multivitamin Fentanyl PHOTOVOLTAIC INSTALLER Pitocin gtt Tylenol PRN Cervidil PRN Terbutaline [...] labor JAYDE HUMPHRIES MD Cardiology S1/Team Pager [phone] 10/08/2013 Staff Rounding Addendum: I interviewed and [...] post-surgical volume shifts. Alexandr Castaneda MD Staff Reset Merchandiser Pager #[phone] * Marita Sprague MD - 10/07/2013 9:15 [...] been persistent. Continues to be difficult to apple picker contractions on toco. Pt resuscitated with O2 [...] on side of bed for epidural placement. 1930- epidural placed and started. 1933- pt laid [...] slightly uncomfortable. Turned to right side. 0154- [place] not tracing contractions. Adjusted and now is showing contractions. 0215- FHR deceleration from baseline to zaki of 80. Pitocin stopped. BP charge nurse, NedaRN notified. Pt turned to left tilt position. 6- Neda,RN, MD Erasmo present at bedside. 0223- SVE [...] boy. Baby limp and pale, transferred to warm with NICU present. * Marita Sprague MD [...] Now with category 2 tracing. Difficult to apple picker contractions on toco. Pt resuscitated with O2 [...] Soft Taylor Score: 8 OB Examiner: Tammie Canela cervidil placed at 2200 hrs Heart Rate [...] C/C/E Laboratory: Recent Labs Basename 10/07/13 0420 10/06/13 0440 10/05/13 0330 WBC 12.8 11.8 10.1 HGB 10.6* 10.5* 9.9* PLATELET 276 269 264 Recent Labs Basename 10/07/13 0420 10/06/13 0440 10/05/13 0330 NA 138 137 138 K [...] labor SRAVANTHI POP MD Cardiology S1/Team Pager [phone] 10/07/2013 Attending Attestation Please see Dr. Pop's [...] of two midnights or is on the [facility] inpatient only procedure list (status C) due [...] of her labor. Alexandr Castaneda M.D. Staff Reset Merchandiser [facility] [place] [place] Heart and Vascular Center [facility] [place] [place] Pager #[phone] * Rod Wyatt RN - 10/07/2013 5:07 [...] Terbutaline x 1 prn uterine hyperstimulation with Ripsaw Operator RN in CVCC to carry ZAINAB MEDINA [...] Consistency: Soft Taylor Score: 8 OB Examiner: J Ethan, cervidil placed at 2200 hrs Heart Rate [...] Terbutaline x 1 prn uterine hyperstimulation with Ripsaw Operator RN in CVCC to carry SIDNEY CANELA MD, PGY4 10/06/2013 Dr. Canela and I reviewed the findings and there are no changes to our management plan. Pt. Will be reviewed with oncoming attending at morning rounds. Plan is in place if c/s becomes necessary (main OR room 22 with mail technician to be called). * Shaneka Wadsworth [...] Terbutaline x 1 prn uterine hyperstimulation with Ripsaw Operator RN in CVCC to carry MARY BETH OLIVER MD, PGY3 10/06/2013 I have personally reviewed this patients progress in labor and agree with the documentation above. Reassuring surveillance and some progress in cervical ripening GLORIA MENARD MD * Vicky Caballero RN - 10/06/2013 4:13 PM EDT Office of Care Management (OCM) / Clinical Mail Technician (CRC)/ Initial Assessment Discussed patient with Provider Team and in multidisciplinary discharge-planning rounds. Reviewed record and interviewed patient. Introduced/reviewed CRC role and services accepted. REASON for HOSPITALIZATION: High risk teen Cardiomyopathy. Mary is a 18 y.o single at 36 5/7 weeks gestation admitted to the [facility] for induction of labor in a setting [...] labor and deliver (if vaginally) in the [facility].with cardiac monitoring. Cervical ripening in progress to be followed by IOL. OB/L&D nurse at bedside. SOCIAL / FAMILY SUPPORTS: Mary is in an intact relationship with RASHEED Gonsalez who lives with Mary and her family (mother and step father) as well as 2 of her 3 siblings (11 year old brother and 5 year old sister) in [place], [place]. She also has a 23 year old brother (born to her mom at the age of 14) Her mom Estephania Muse is a primary support. She also notes her grandmother and step-mother. Wallace is present and appears attentive and supportive. He plans to stay at her bedside throughout the IOL/Delivery process. Mary notes 5-6 other relatives that live in the [facility] that have been to visit her since her admission. Wallace has his oil transport driver's license, but not a working automobile. [...] be named Julian. Petr's family lives in [place], [place] and plans to be at [facility] [place] [place] for the as well. ADVANCE DIRECTIVES: None. Pt is under 18 and not able to complete an A.D. of her own. Her mother isher legal decision maker at this time (for consents and decisions should Mary not be able to speak her choices. (Verified with Risk Management) HEALTH /PRESCRIPTION COVERAGE: [place] Medicaid primary, Pt states her step dad (Chad cain as a dependent on his [employer] policy as a secondary insurance. CURRENT HOME/COMMUNITY SERVICES/EQUIPMENT: DME: None prior to admission Home Health Agency: None prior Other: Pt is applying for WIC/food stamps once baby is born CLOTH BURLER REFERRAL: Notified OB CLOTH BURLER - for Support/Financial/Medication Assistance; See CLOTH BURLER notes for further needs. Will meet with patient after delivery and once stable/recovered. PRIMARY CARE PHYSICIAN: DAVID ALDRICH MD [address] / [facility] [id number] POTENTIAL DISCHARGE NEEDS: Pt states she has [...] and assist with discharge planning while hospitalized. CLOTH BURLER will follow as well. . * Alexandr [...] monitoring. 24 Hour Events: Was moved to [facility] 10/05. OB has begun the process of [...] 93 79 122 Recent Labs Basename 10/06/1343910/05/13 03309/19/13 1451 CALCIUM 9.2 8.9 9.7 MAGNESIUM -- [...] Humphries PGY-1 Internal Medicine S1M1 Team Pager #[phone] 10/06/2013 Cardiology Attending Attestation Please see Dr. [...] the CVCC unit. Alexandr Castaneda M.D. Staff Reset Merchandiser [facility] [place] [place] Heart and Vascular Center [facility] [place] [place] Pager #[phone] * Gloria Menard MD - 10/06/2013 11:48 [...] to sleep in chair at bedside. 1007- [place] readjusted, patient reports feeling crampy occasionally, Continues [...] # 5 placed at this time. 1150- [place] readjusted following maternal movement. 1152- Alessio Da Silva MD Anesthesia at bedside discussing plan of care with patient. 1249- Patient states that she occasionally feels crampy but nothing consistently. 1254- Up to void, toco tracing maternal movement. 1305- [place] zeroed, patient sitting up eating lunch in bed. States that the T- pump is help to relieve her lower back pain. 1343- Bakari. Aris DAUGHERTY covering technical proposal writer for break. Dr Canela and Dr Jesus Manuel MEDINA reviewed EFM strip. 1440- Care reassumed by technical proposal writer. Patient resting on left side in [...] Repositioned to sitting position to eat dinner. [place] and U/S readjusted. [place] adjusted frequently throughout day in attempt to [...] Weathers RN - 10/05/2013 8:55 PM EDT 191 - RN to [facility] 25 for bedside report, RN report received from Angel Avalos RN, pt care assumed, pt on EFM/toco, FHR WNL 1944 - Grace DRU RN to bedside, VS and assessment by [facility] RN as charted 1946 - Pt changing [...] FHR baseline 140 bpm, accels, no decels 221 - This RN to break, Angel Arriola [...] 0730 - Bedside report given to Angel Weathers, RN * Rolf Hager RN - 10/05/2013 6:48 PM EDT Patient transferred to [facility] in anticipation of delivery induction. Able [...] 10/05/2013 5:19 PM EDT 1649- Patient in [facility] for induction of labor. Awaiting IV placement and lab draw. EFM explained andplaced on patient. [facility] RN collaborating with technical proposal writer in patients care. Patient and significant other Petr asking appropriate questions. 1710-Patient turned to left tilt. 1732- Repositioned to sitting up for dinner. [place] readjusted. 1756- IV team at bedside attempting IV placement. Patient very anxious and sitting up vomiting. Intermittent tracing maternal pulse. 1807- Angel Ibrahim MD paged to notify of Misoprostol arrival from pharmacy. 1830- Dr Gi Dukes and Angel Ibraihm MD at bedside evaluating patient. 1833- Cervical exam 1 cm/50/ -4 medium. 1838- Misoprostol 25 mcg placed by Angel Ibrahim MD. 1845- Patient sitting up in bed eating dinner. * Lelia Del Valle RN - 10/05/2013 12:28 PM EDT Care Management(OCM)/Clinical Mail Technician(CRC) CRC Service: Cardiology, Cardiothoracic and Thoracic Surgery TORSTEN Larson RN Pager # [phone] Record reviewed and patient discussed with multidisciplinary team. Pt will transfer to [facility] as soonas bed is available. TC with Priscilla Federico, OB CRC [phone],. She will assist with d/c planning when pt is medically ready for d/c as well as be a resource while on ICCU/CVCC. Astrid Mittal, CLOTH BURLER #[id number], ,will be following pt as well. Priscilla plans to touch base with Astrid regarding AD completion. Rene Javier CLOTH BURLER, #[id number] for Cardi updated, and can assist with AD if needed. ( Pt is 18). animal caregiver Zoie relayed that pt appears to have [...] Chemistry: Recent Labs Basename 10/05/13 0330 09/19/13 14506/30/13 1156 NA 138 139 139 K 3.9 [...] Humphries PGY-1 Internal Medicine S1M1 Team Pager #[phone] 10/05/2013 Attending Addendum: The patient was seen and examined in conjunction with the resident on rounds. My history, physical exam findings, assessment, and plan are reflected in that note, except as noted below. Transfer to [facility] today. Induction and monitoring per OB. farm labor contractor is alerted and ready if need for advance cardiac support. Mare Smith MD, [facility], [facility] Attending Reset Merchandiser Pager [phone] * Grace Reyna MD - 10/05/2013 7:23 [...] 2. The left ventricle is moderately dilated (ROHIIN 6 cm). Left ventricular wall thickness is normal. The apex appears to have prominent trabeculations. 3. Global left ventricular systolic function is moderately reduced. Global peak longitudinal strainis -9% and the quantitative left ventricular ejection fraction by biplane Higginbohtam's method is 35%, with a visual estimate [...] irregular contractions NST Times NST Start Time 6 NST Stop Time 2150 I personally have [...] was followed by Dr. Leon Hoang in [place]. It seems as though she was fairly [...] MD PGY-1 Internal Medicine S1 Cardiology Pager #[phone] 10/04/2013 Attending Addendum: The patient was seen [...] The plan was reviewed with her primary copy cutter, Dr. Gallegos and the obstetrical service. Transferred to [facility] tomorrow for induction Mare Smith MD, [facility], [facility] Attending Reset Merchandiser Pager [phone] documented in this encounter Procedure Notes * Lindsey Fried - 10/13/2013 8:24 AM EDTAssociated Order(s): SCAN DOC: OPERATIONS PLANT ATTENDANT * Teodoro Neff RN - 10/07/2013 3:12 [...] to the planned procedure. Hand Hygiene: The research worker encyclopedia did perform hand hygiene prior to line insertion. Catheter type: PICC Lot number: [id number] Procedure Technique: Skin was prepped with chlorhexidine. [...] Health Knowledge, Opportunity for Enhanced (Adult, NICU, [place], Obstetrics, Pediatric) Goal: Knowledgeable about Health Subject/Topic [...] decelerations, though it was difficult to initially apple picker contractions on toco due to the patient's [...] Information for the patient's : Christiano Porras [[id number]] DELIVERY SUMMARY FOR Christiano Porras (please note [...] Delivery Type: Delivery Type (Specific):Lower Segment Transverse [[id number]] Presentation/Position Christiano Porras : Breech Failed Operative [...] Other Providers: Resident Delivery Nurse Charge Nurse Stone Belt Sander Scrub Nurse Scrub Nurse Registered Nurse Registered Nurse Charge Nurse Grace Mercado ICN Staff Present: yes Delivery Location: OR Living?: Yes APGARS One Minute Five Minutes Ten Minutes Skin Color: 0 1 1 Heart Rate: 0 2 2 Grimace: 0 1 1 Muscle Tone: 0 1 1 Breathin 1 2 Totals: 0 6 7 INTERVENTIONS Christiano Porras Resuscitation:PPV Suctioning Intubation Suctioning Method: PPV [4];Suctioning [2];Intubation [5] Vocal Cords Visualized:yes Meconium: meconium below vocal cords Resuscitation Comment: Medications: [place] Meds Given: vitamin K erythromycin Naloxone Given?: [...] Mary Porras Patient Age: 18 y.o. Language: French Race: White Ethnicity: Not nor Admit date: 10/04/2013 Discharge date and time: 10/12/2013 Attending Physician: Alexandr Castaneda MD Discharge Physician: Mary Beth Oliver (OB), Yue Wyatt (Cardiology) Care Provider: Dr. Leon Hoang [place], [place] Follow-up Recommendations for Providers: -Follow up 7-10 days for staple removal in clinic with home director of retail marketing -Routine 6 week visit with home director of retail marketing -Follow up with Dr. Gallegos (Cardiology) as [...] pressure withthis increase. Inpatient Provider Contact Information: [facility] [place] [employer]EARCH ASSOCIATE POLICY Department, Cardiology Department Discharge Diagnoses (Hospital Problems) [...] who is at 36w3d weeks gestation by [facility]/S being admitted for induction of labor [...] was followed by Dr. Leon Hoang in [place]. It seems as though she was fairly [...] service as below. She was transferred to [facility] on HD#2 for initiation of induction of [...] stapleremoval early next week with her primary director of retail marketing, as well as routine 6 week follow [...] She will follow up with her primary Reset Merchandiser Dannielle Gallegos. Delivery Information Information for the patient's : Christiano Porras [[id number]] INFORMATION Christiano Porras 10/08/2013 4:21 AM by Lower Segment Transverse Sex: male Gestational Age: 37w0d [place] Measurements: Weight: 6 lb 10.2 oz (3010 g) APGARS One Minute Five Minutes Ten Minutes Totals: 0 6 7 EBL: [id number] Vital signs at Discharge: BP: 118/67 mmHg, [...] Labs: Recent Labs Basename 10/10/13 0805 10/09/13 0335 [...] 2. The left ventricle is moderately dilated (ROHIIN 6 cm). Left ventricular wall thickness is [...] this in detail. Call your doctor or aircraft instrument mechanic for: Fever more than 100.5 Heavy bleeding [...] follow up appointment. [facility] time for guidance or for answers to questions that come up prior to you follow up appointment. Your [facility] [place] Provider can be reached during office hours at [facility] Follow-up Clinic AFTER OFFICE HOURS for the director of retail marketing or aircraft instrument mechanic assembler carbon brushes Provider electronic signature confirms that discharge instructions were reviewed with the patient. A copy was printed and given to the patient. Future Appointments and Orders Future Appointments: Provider: Department: Dept Phone: Center: 11/02/2013 2:30 PM Dannielle Gallegos MD Cardiology [phone] [facility] Future Orders Please Complete By Expires Referral to Home Health - at DISCHARGE [UFD1394 CPT(R)] Process Instructions: Scheduling Instructions: Comments: Mary Porras Being discharged to own home: [address] [facility] [address] [facility] [address]* [phone] (home) No relevant phone numbers on file. HOME HEALTH AGENCY: [facility]. PHONE: [phone] FAX: [phone] RN orders: 1. Assess postoperative recovery. Assess [...] patient's PCP: DAVID ALDRICH MD [address] [place] [address] All VNA agencies which cover the area of patient's residence have been reviewed, either verbally sharan writing, and patient/family have chosen the home health care agency noted Questions: Responses: Agency name and contact information [facility] Patient location post discharge Home: [facility] What services are requested Registered Nurse Start date Responsible MD post discharge contact info Maternal Medicine at [facility] [place] [phone] Discharge References/Attachments None * Plan of Care - Zoie Ramirez RN - 10/09/2013 4:00 AM EDT Problem: Pain, Acute (Adult, Obstetrics) Intervention: Pain Management Interventions Pt utilizing PHOTOVOLTAIC INSTALLER, although needs reminding d/t sleeping intermittently between scheduled /nursing assessments. States relief with use of PHOTOVOLTAIC INSTALLER. * Med Student Progress Note - Chela [...] Date 10/08/13 0700 - 10/09/13 0659 Shift [id number] 24 Hour Total I N T A [...] #2 s/p c/s. Pain Control: -- Hydromorphone PHOTOVOLTAIC INSTALLER and epidural Cardiac: --She is being closely [...] and cut. The was handed to the [facility] NICU team. Cord gases and cord [...] Operative Note Patient Name: Mary Porras : [id number] MR#: [id number] Case Date: 10/08/2013 Surgeon: Surgeon(s) and Role: [...] without incident and patient returned to the [facility] Condition: doing well without problems (Please see [...] Health Knowledge, Opportunity for Enhanced (Adult, NICU, [place], Obstetrics, Pediatric) Goal: Knowledgeable about Health Subject/Topic Patient will demonstrate the desired outcomes. Outcome: Outcome achieved Date Met: 10/07/13 Peripherally Inserted Central Catheter (PICC) Teaching Sheet Peripherally inserted central catheters (ejgm-lt-nwan) (PICC) are used when you need IV [...] midline catheter? PICC lines are used for intermediate frame tender treatments. PICC lines may be used for [...] can be set up via the nurse Fighting Vehicle Infantryman to help you. What are possible complications [...] Efficacy, Safety, Use, and Administration of Cathflo, [employer] Inc[employer] 2005 * Plan of Care - Lu Cox RN - 10/07/2013 12:30 PM EDT Problem: Health Knowledge, Opportunity for Enhanced (Adult, NICU, [place], Obstetrics, Pediatric) Goal: Knowledgeable about Health Subject/Topic Patient will demonstrate the desired outcomes. Peripherally Inserted Central Catheter (PICC) Teaching Sheet Peripherally inserted central catheters (fwak-ak-oyos) (PICC) are used when you need IV [...] midline catheter? PICC lines are used for intermediate frame tender treatments. PICC lines may be used for [...] can be set up via the nurse Fighting Vehicle Infantryman to help you. What are possible complications [...] Vascular Access Device Selection, Insertion, and Management, [employer] Access [employer] 12/17. A Review of the Efficacy, Safety, Use, and Administration of Cathflo, [employer], Inc. 2005 * Plan of Care - [...] of care reviewed with pt.Pt verbalizes understanding. [place] adjusted several times to try and record [...] 1115 Medicated with Fentanyl. 1120 Cervical exam. /-2. Decision made to utilize Pitocin but concerns were raised due to theonly PIV access is a 22 gauge angiocath in right ventral forearm. Will speak with Cardiology to develop an alternative plan. Pt back to right side. Understands need for larger IV access for induction. 1130 Spoke with Program Administrator to voice need for better IV access. Will have IV team take another look instead of considering a central line at this time. Program Administrator also spoke with Dr Juarez regarding above. 1630 Pt had been removed from [facility] earlier in the day as no [...] 1820 Pt escorted back to bed. Dr Pacis in to see pt. 1825 Cervical exam done 2/- then repositioned to left side. Mild contraction [...] who is at 36w3d weeks gestation by [facility]/S being admitted for induction of labor [...] Rate Interpretation: Mode: continuous external (NST) (10/04/13 7649) HR (beats/min): 140 Variability: moderate (amplitude range [...] June demonstrated an EF of 51%. Her copy cutter recommended that she have her baby earlier [...] in the fall andplans to graduate in 2015. Vitals: Last value Range last 24 hrs [...] IOL once she is transferred to the [facility] for higher level monitoring. She should have [...] Status: Full Code Sneha Rodriguez, MS IV [facility] 10/04/13 Patient seen and evaluated with resident [...] 1:00 PM EST Appointment Non-Invasive [place] [address] Anton Márquez MD [facility] [place] [address] 01/27/2024 3:00 PM EST Office Visit Cardiology at [address] [address] Anton Márquez MD [facility] [place] [address] documented as of this encounter Procedures Procedure Name Priority Date/Time Associated Diagnosis Comments OPERATIONS PLANT ATTENDANT SCAN 10/13/2013 8:24 AM EDT BMP W/FASTING [...] METABOLIC PANEL Routine 10/08/2013 7:[address] PICC LINE: CONTACT VASCULAR ACCESS Routine [...] in this encounter Results * SCAN DOC: OPERATIONS PLANT ATTENDANT (10/13/2013 8:24 AM EDT) Anatomical Region Laterality [...] Spec In Lab Alexandr Castaneda MD HEMATOLOGY ROBERT SMART DARIUS KEITH * (ABNORMAL) BMP w/fasting Glucose (10/10/2013 8:05 [...] of Diabetes Mellitus, Position Statement from the [place] [employer]. ??Diabetes Care, Volume 33, Supplement 1, Mar 2009 Blood Urea Nitrogen 8(L) 10 - 20 mg/dL CERNER MILLENNIUM Creatinine 0.46 0.20 - 0.70 mg/dL CERNER MILLENNIUM Comment: Please note that the pediatric reference intervals supplied above were not validated at [facility] [place]. Results from pediatric patients should be interpreted [...] the following links into your internet browser. [email or web address] Blood specimen (specimen) 10/10/2013 8:05 AM EDT [...] Lab Alexandr Castaneda MD HEMATOLOGY ORDERA ABRAHAMS CERJESUS KEITH * (ABNORMAL) Basic Metabolic Panel (non-fasting) (10/09/2013 3:35 AM EDT) Glucose 100 60 - 199 mg/dL CERNER MILLENNIUM Comment:Diabetes: >=200 mg/d L plus symptoms Blood Urea Nitrogen 9(L) 10 - 20 mg/dL CERNER MILLENNIUM Creatinine 0.63 0.20 - 0.70 mg/dL CERNER MILLENNIUM Comment: Please note that the pediatric reference intervals supplied above were not validated at [facility] [place]. Results from pediatric patients should be interpreted [...] the following links into your internet browser. [email or web address] Blood specimen (specimen) 10/09/2013 3:35 AM EDT 10/09/2013 3:52 AM EDT Narrative Resulting Agency Comment Spec In Lab Alexandr Castaneda MD CHEMISTRY ORDERAB LES Performing Organization Address [facility] Co de Phone Number [facility] * Specimen to Pathology (NON-OR) (10/08/2013 8:42 AM EDT) AP Specimen 10/08/2013 8:42 AM EDT 10/08/2013 8:42 AM EDT Narrative [facility] - 10/08/2013 8:42 AM EDT Specimen requisition ordered. ??Separate Pathology report to follow Alexandr Castaneda MD PATHOLOGY/CYTOLOG Y ORDERABLES Performing Organization Address [facility] de Phone Number [facility] * Surgical Pathology Report (10/08/2013 7:07 AM EDT) Final Diagnosis ? [facility] ? Provider: ?? SIDNEY CANELA ??Pt. Name: ?? MARY PORRAS ? Acc #: ?[id number] ?Pt. ? Col Date: ?? 10/08/2013 ? [...] attached and detached ? cord. ? Membranes: Christine, semitransparent, marginal insertion. ? Cord: 44.5 x [...] ? None provided. 10/11/2013 4:02 PM EDT [facility] TISSUE SPECIMEN FROM PLACENTA / Unknown 10/08/2013 7:07 AM EDT 10/08/2013 7:07 AM EDT Sidney Canela MD PATHOLOGY/CYTOLOGY ORDERABLES CERNER MILLENNIUM [facility] [place] [address] * Specimen to Pathology (surgical or derm) [...] NRBC Absolute 0.000 0.000 - 0.012 x10(3)/mcL CERNER MONIENNIUM Blood specimen (specimen) 10/08/2013 7:00 AM EDT 10/08/2013 7:12 AM EDT Narrative Resulting Agency Comment Spec In Lab Mare Smith MD HEMATOLOGY ORDERABLE S DARIUS WEINBERGIUM * (ABNORMAL) Differential, Automated (10/08/2013 7:00 AM [...] intervals supplied above were not validated at [facility] [place]. Results from pediatric patients should be interpreted [...] the following links into your internet browser. [email or web address] Blood specimen (specimen) 10/08/2013 7:00 AM EDT 10/08/2013 7:12 AM EDT Narrative Resulting Agency Comment Spec In Lab Alexandr Castaneda MD CHEMISTRY ORDERAB LES DARIUS KEITH * Place PICC Line: Contact Vascular Access Page [phone] (10/07/2013 4:11 PM EDT) Narrative Teodoro Neff [...] to the planned procedure. Hand Hygiene: The research worker encyclopedia did perform hand hygiene prior to line insertion. Catheter type: PICC Lot number: [id number] Procedure Technique: Skin was prepped with chlorhexidine. [...] to the planned procedure. Hand Hygiene: The research worker encyclopedia did perform hand hygiene prior to line insertion. Catheter type: PICC Lot number: [id number] Procedure Technique: Skin was prepped with chlorhexidine. [...] 4:20 AM EDT) NT-proBNP 438(H) <=125 pg/mL [facility] Blood specimen (specimen) 10/07/2013 4:20 AM EDT 10/07/2013 4:30 AM EDT Narrative Resulting Agency Comment Spec In Lab Mare Smith MD CHEMISTRY ORDERABLES DARIUS MONTENEGROENNIUM * (ABNORMAL) Differential, Automated (10/07/2013 4:20 [...] MD HEMATOLOGY ORDERABLE S Performing Organization Address [facility]/ZIP Co de Phone Number CERNER MILLENNIUM * (ABNORMAL) Hemogram (10/07/2013 4:20 AM EDT) Pathologist [facility] White Blood Cell 12.8 4.5 - 13.0 [...] MD HEMATOLOGY ORDERABLE S Performing Organization Address City/[facility]/ZIP Co de Phone Number CERJESUS MILLENNIUM * (ABNORMAL) Basic Metabolic Panel (non-fasting) (10/07/2013 4:20 AM EDT) Pathologist [facility] Glucose 99 60 - 199 mg/dL CERNER MILLENNIUM Comment:Diabetes: >=200 mg/d L plus symptoms Blood Urea Nitrogen 8(L) 10 - 20 mg/dL CERNER MILLENNIUM Creatinine 0.59 0.20 - 0.70 mg/dL CERNER MILLENNIUM Comment: Please note that the pediatric reference intervals supplied above were not validated at [facility] [place]. Results from pediatric patients should be interpreted [...] the following links into your internet browser. [email or web address] Blood specimen (specimen) 10/07/2013 4:20 AM EDT [...] Mare Smith MD HEMATOLOGY ORDERABLE S DARIUS MONTENEGROENNIUM * (ABNORMAL) Differential, Automated (10/06/2013 4:40 AM [...] ORDERABLE S CERJESUS MONTENEGROENNIUM * (ABNORMAL) Hemogram (10/06/2013 4:40 AM [...] MD HEMATOLOGY ORDERABLE S Performing Organization Address [facility] Co de Phone Number CERJESUS WEINBERGIUM * (ABNORMAL) Basic Metabolic Panel (non-fasting) (10/06/2013 4:40 AM EDT) Glucose 93 60 - 199 mg/dL CERNER MILLENNIUM Comment:Diabetes: >=200 mg/d L plus symptoms Blood Urea Nitrogen 9(L) 10 - 20 mg/dL CERNER MILLENNIUM Creatinine 0.56 0.20 - 0.70 mg/dL CERNER MILLENNIUM Comment: Please note that the pediatric reference intervals supplied above were not validated at [facility] [place]. Results from pediatric patients should be interpreted [...] the following links into your internet browser. [email or web address] Blood specimen (specimen) 10/06/2013 4:40 AM EDT 10/06/2013 4:45 AM EDT Narrative Resulting Agency Comment Spec In Lab Alexandr Castaneda MD CHEMISTRY ORDERAB LES DARIUS WEINBERGIUM * Antibody screen (10/05/2013 6:00 PM EDT) Ab Screen Interp Negative CERNER MILLENNIUM Expires at [id number] on: [id number] CERNER MILLENNIUM Blood specimen (specimen) 10/05/2013 6:00 PM EDT 10/05/2013 6:21 PM EDT Narrative Resulting Agency Comment Spec In Lab Gloria Menard MD BLOOD BANK LAB ORDER JERRY DARIUS WEINBERGIUM * ABO/Rh Typing (10/05/2013 6:00 PM EDT) ABORH Type B Pos CERNER MILLENNIUM Blood specimen (specimen) 10/05/2013 6:00 PM EDT 10/05/2013 6:21 PM EDT Narrative Resulting Agency Comment Spec In Lab Gloria Menard MD BLOOD BANK LAB ORDER JERRY DARIUS MONTENEGROENNIUM * (ABNORMAL) Differential, Automated (10/05/2013 3:30 AM EDT) Pathologist [facility] Neutrophil % 62.4 37.0 - 77.0 % [...] MD HEMATOLOGY ORDERABLE S Performing Organization Address City/[facility]/ZIP Co de Phone Number CERNER MILLENNIUM * (ABNORMAL) Hemogram (10/05/2013 3:30 [...] MD HEMATOLOGY ORDERABLE S Performing Organization Address City/[facility]/ZIP Co de Phone Number CERJESUS MILLENNIUM * (ABNORMAL) Basic Metabolic Panel (non-fasting) (10/05/2013 3:30 AM EDT) Glucose 79 60 - 199 mg/dL CERNER MILLENNIUM Comment:Diabetes: >=200 mg/d L plus symptoms Blood Urea Nitrogen 8(L) 10 - 20 mg/dL CERNER MILLENNIUM Creatinine 0.57 0.20 - 0.70 mg/dL CERNER MILLENNIUM Comment: Please note that the pediatric reference intervals supplied above were not validated at [facility] [place]. Results from pediatric patients should be interpreted [...] the following links into your internet browser. [email or web address] Blood specimen (specimen) 10/05/2013 3:30 AM EDT 10/05/2013 4:05 AM EDT Narrative Resulting Agency Comment Spec In Lab Alexandr Castaneda MD CHEMISTRY ORDERAB LES DARIUS KEITH * GC/Chlam (10/05/2013 12:55 AM EDT) GC [...] Smith MD MICROBIOLOGY - GENER AL ORDERABLES CERNER MILLENNIUM * (ABNORMAL) Urinalysis with microscopic (10/05/2013 12:54 AM EDT) Pathologist [facility] Glucose, Urine Dipstick Negative Negative mg/dL CERNER [...] Urine Dipstick Hazy(A) Clear CERNER MILLENNIUM Specific [place] Urine Automated 1.008 1.002 - 1.030 CERNER [...] Smith MD URINE ORDERABLES Performing Organization Address [facility] de Phone Number CERJESUS MONTENEGROPHOEN[facility]DREN'[facility]ITALI[facility] * Group B Streptococcus Screen (10/04/2013 9:29 PM EDT) GBS Screen Neg CERNER MILLENNIUM Pooled specimen from vaginal introitus and rectal swab (specimen) 10/04/2013 9:29 PM EDT 10/04/2013 9:47 PM EDT Comment:Penicillin Allergy?- >No Narrative Resulting Agency Comment Spec In Lab Mare Smith MD MICROBIOLOGY - GENER AL ORDERABLES Performing Organization Address [facility] de Phone Number [facility] * Group B Strep Culture Screen (10/04/2013 9:29 PM EDT) Group B Streptococcus Culture ? Patient Name: MARY PORRAS ? Ordered By: MARE SMITH ? MR#: [id number] ?LOC: ??[facility] ? /Sex: ??1995 (18 years), ? Female ? PROCEDURE: Group B Streptococcus Culture ?SOURCE: Vag/Rectal ? COLLECTED: 10/04/2013 21:29 ?FREE TEXT SOURCE: Penicillin Allergy?->No ? STARTED: 10/04/2013 21:47 ? FINAL REPORT ? Final Report ? Verified: 014 10:13 ? No Group B Streptococci isolated ? PRELIMINARY REPORT ? Preliminary Report ? Verified: 014 10:22 ? Culture in progress ? [facility] Pooled specimen from vaginal introitus and rectal swab (specimen) 10/04/2013 9:29 PM EDT 10/04/2013 9:47 PM EDT Comment:PENICILLIN ALLERGY?- >NO Narrative Resulting Agency Comment Spec In Lab Mare Smith MD MICROBIOLOGY - GENER AL ORDERABLES [facility] * (ABNORMAL) - Subsequent External Results (08/24/2013) [...] - Initial External Results (06/22/2013) ABORH Type B+(Chain Hooker al Lab) Ab Screen Interp Negative( External [...] Kami Valladares RN)2302 (Given - Provider: Torsten Harden, WILLOW) 0600 (Due)1153 (Given - Provider: Marita [...] Drummond, WILLOW) 0900 (Given - Provider: Lizzette Posey, WILLOW)2100 (Given - Provider: Torsten Harden RN) 0824 (Given - Provider: Marita Palma) PRN Medication Order 10/10/2013 10/11/2013 10/12/2013 camphor-menthol (SARNA) lotion (CANCELED) Topical (Top), 3 TIMES DAILY PRN, Itching, Starting on Wed10/09/13 at 1811, Until Wed10/12/13 at 2007 0608 (Given - Provider: Dannielle Drummond, WILLOW)2117 (Given - Provider: Dannielle Drummond, WILLOW) ibuprofen (ADVIL;MOTRIN) tablet 600 mg (CANCELED) 600 [...] 10/09/13 at 1018, Until Angelita 10/12/13 at 2008, Pain, Routine 0418 (Given - Provider: Dannielle Drummond, RN)0849 (Given - Provider: Lizzette Posey, RN)1453 (Given - Provider: Lizzette Posey, WILLOW)2121 (Given - Provider: Dannielle Drummond, WILLOW) 1425 (Given - Provider: Sylvie Hurst RN) 0137 (Given - Provider: Leslie Tomlinson RN)0826 (Given - Provider: Marita Palma) documented in this encounter Care Teams Solution Sales Senior Executive Relationship Specialty Start Date End Date Pietro Son PA [address] [place] [address] PCP - General Internal Medicine 09/27/20 documented as of this encounter
--- OUTSIDE RECORDS SUMMARY | 2024-01-03 13:14 | XMS_ITS | Encounter Summary ---
[place] [address] Care Team Providers Care Ux Designer Name Role Phone Rustam Coppola MD Primary Care Provider [phone] Reason for Visit * Reason Onset Date Comments Advice Only 08/04/2013 ? IS PATIENT EXC USED FROM SCHOOL Encounter Details Date Type Department Care Team (Late st Contact Info) Description 08/04/2013 Telephone [place] [phone] New Bobo MD [facility] [place] [address] Advice Only (? IS PATIENT EXCUSED FROM SCHOOL) Social History Tobacco Use Types Packs/Day Years [...] * Telephone Encounter - Dori Fregoso - 08/04/2013 10:[address] Bobo, Arlene Solo, the school counselor, from the [facility] called today. She is requested that we send them the most recent office note, to determine whether Mary shouldbe at home or attending class. At this point she has not been attending. In reading your note, from an appointment on August 02, 2013, or previous notes from others, I am not sure if this was addressed. Would you please determine whether Mary may attend school or should stay at home? Please let us know so that we may tell Arlene. If you would like to speak with Arlene directly, she may be reached at . Her fax number is . Thank You, Dori documented in this encounter Plan of Treatment Upcoming Encounters Date Type Department Care Team (Late st Contact Info) Description 01/27/2024 1:00 PM EST Appointment [place] [address] Anton Márquez MD [facility] [place] [address] 01/27/2024 3:00 PM EST Office Visit Cardiology at [address] [address] Anton Márquez MD [facility] [place] [address] documented as of this encounter Visit Diagnoses Not on filedocumented in this encounter Care Teams Ux Designer Relationship Specialty Start Date End Date Rustam Coppola MD [address] [place] [address] PCP - General 06/30/13 05/30/18 documented as of this encounter
--- OUTSIDE RECORDS SUMMARY | 2024-01-03 13:14 | XMS_ITS | Encounter Summary ---
[facility] Organization [facility] [place] [address] Care Team Providers Care Brand Advocate Name Role Phone Rustam Coppola MD Primary Care Provider [phone] Encounter Details Date Type Department Care Team (Late st Contact Info) Description 10/04/2013 1:10 PM EDT Follow-Up Cardiology at [address] [phone] Dannielle Gallegos MD [facility] [place] [address] Tachycardia, unspecified (Primary Dx); Cardiomyopathy; complicated by cardiac condition, antepartum, third trimester Discharge Disposition: Home Social History [...] Sign Reading Time Taken Comments Blood Pressure 110/74 10/04/2013 1:14 PM EDT Pulse 110 10/04/2013 1:14 PM EDT Temperature - - Respiratory Rate - - Oxygen Saturation 97% 10/04/2013 1:14 PM EDT Inhaled Oxygen Concentration - - Weight 108.9 kg (240 lb) 10/04/2013 1:14 PM EDT Height 174 cm (5' 8.5) 10/04/2013 1:14 PM EDT Body Mass Index 35.96 10/04/2013 1:14 PM EDT Body Mass Index Percentile 98.14% 10/04/2013 1:1 4 PM EDT Growth Chart: [facility] (Girls, 2- 20 Years) documented in this encounter Patient Instructions * Patient Instructions* Dannielle Gallegos MD - 10/04/2013 2:24 PM EDT Patient to be admitted documented in this encounter Progress Notes * Dannielle Gallegos MD - 10/04/2013 1:31 PM EDT CARDIOVASCULAR AND REPRODUCTIVE MEDICINE CLINIC NOTE PROBLEM LIST: Patient Active Problem List Diagnosis Code ??? Cardiomyopathy 425.4 ??? High risk teen V23.89 Mary Porras is a 18 y.o. female who is here for follow up of cardiomyopathy and . She is 36 weeks. She has a known pre-existing cardiomyopathy with good recovery. She was seen earlier in her with stable class I-II congestive heart failure symptoms (similar to pre- symptoms and thought to be related to deconditioning as much as heart failure.) She was managed on low-dose beta sunitha and was able to continue her schooling with modified activity. Over the last few weeks she has noted increasing peripheral edema, worsening dyspnea while lying flat on her back (better when she turns to her side). She says that her activity level remains about the same: She is able to walk around the house in the backyard and go shopping without too much difficulty. ALLERGIES: No Known Allergies MEDICATIONS: Outpatient Encounter Prescriptions as of 10/04/2013 Medication Sig Dispense Refill ??? metoprolol succinate (TOPROL XL) 25 mg 24 hr tablet Take 1 tablet by mouth daily. 90 tablet 3 ??? pediatric multivitamin with iron chewable tablet Take 1 tablet by mouth daily. PHYSICAL EXAMINATION: Filed Vitals: 10/04/13 1314 BP: 110/74 Pulse: 110 General: Well appearing. No distress. Normal affect. Skin: Warm and dry Head/Eyes: Pupils normal ENT: Benign. Mucosa moist. Neck: Jugular venous pressure normal. Lungs: Clear to auscultation. Cor: Regular rhythm. Normal S1 and S2. No murmurs, gallops, rubs, thrills, lifts, heaves. Tachycardic Abdomen: Normal bowel sounds. Ext: 1+ edema Neuro: Grossly nonfocal. LABORATORIES: Electrocardiogram: Sinus tachycardia at 120 beats a minute. No evidence of Brugada, ARVD, LVH, LQTS, pre-excitation. Tracing personally visualized by me. Echocardiogram: Reviewed personally by me today with comparison to previous studies. Her left ventricular ejection fraction is likely around 40% and is at most mildly worse than previous studies. However evidence is significant for increasing ventricular filling pressures and strain. IMPRESSION: 1. Nonischemic cardiomyopathy predating with decline [...] adverse outcomes. For labor and delivery recommend: ?? Continuous ECG monitoring in the CCU ?? very low threshold for invasive arterial and pulmonary artery monitoring for any evidence of hemodynamic compromise, dysrhythmia, hypoxemia, hypotension ?? Limited pushing/assisted delivery ?? Critical care monitoring for 48 hours postdelivery through the diuretic phase PLAN: 1. Admit to cardiology service for management of cardiomyopathy and heart failure in the setting ofpregnancy 2. Anticipate delivery in the near future 3. OB service aware of patient 4. Continue/increase b sunitha 5. Diuretics, vasodilators as needed. Avoid hypotension 45 of the 60 minute visit were spent evaluating the patient, the majority in direct discussion and counseling: CHF and . cc: MD Benjie RAMOS MD, MD documented in this encounter Plan of Treatment Upcoming Encounters Date Type Department Care Team (Late st Contact Info) Description 01/27/2024 1:00 PM EST Appointment Non-Invasive [place] [address] Anton Márquez MD [facility] [address] [place], [place] [id number] 01/27/2024 3:00 PM EST Office Visit Cardiology at [address] [phone] Anton Márquez MD [facility] [place] [address] documented as of this encounter Procedures Procedure Name Priority Date/Time Associated Diagnosis Comments EKG 12-LEAD Routine 10/04/2013 1:20 PM EDT Tachycardia, unspecified documented in this encounter Results * EKG 12 Lead (10/04/2013 1:20 PM EDT) Ventricular rate 119 BPM MUSE SYSTEM Atrial Rate 119 BPM MUSE SYSTEM P-R Interval 134 ms MUSE SYSTEM QRS Duration 84 ms MUSE SYSTEM Q-T Interval 332 ms MUSE SYSTEM QTC Calculated (Bezet) 467 ms MUSE SYSTEM Calculated P [place] 31 degrees MUSE SYSTEM Calculated R [place] 22 degrees MUSE SYSTEM Calculated T [place] 21 degrees MUSE SYSTEM INTERPRETATION Sinus tachycardia Possible Left atrial enlargement Borderline ECG When compared with ECG of 19-SEP-2013 13:40, No significant change was found Confirmed by VICK MENCHACA M.D. ([id number]) on 10/04/2013 4:50:34 PM MUSE SYSTEM 10/04/2013 1:20 PM EDT 10/04/2013 4:50 PM EDT Dannielle Gallegos MD ECG ORDERABLES MUSE SYSTEM documented in this encounter Visit Diagnoses Diagnosis Tachycardia, unspecified- Primary Cardiomyopathy Other primary cardiomyopathies complicated by cardiac condition, antepartum, third trimester documented in this encounter Care Teams Brand Advocate Relationship Specialty Start Date End Date Rustam Coppola MD [address] [place] [address] PCP - General 06/30/13 05/30/18 documented as of this encounter
--- OUTSIDE RECORDS SUMMARY | 2024-01-03 13:14 | XMS_ITS | Encounter Summary ---
[place] [address] Care Team Providers Care Ui Architect Name Role Phone Rustam Coppola MD Primary Care Provider [phone] Encounter Details Date Type Department Care Team (Late st Contact Info) Description 10/04/2013 2:51 PM EDT - 10/04/2013 3:00 PM EDT Hospital [place] [address] Social History Tobacco Use Types Packs/Day Years [...] for Pain. 30 tablet 0 10/12/2013 05/09/2014 metoprolol succinate (TOPROL XL) 25 mg 24 hr tabletIndications:Cardio myopathy Take 1 tablet by mouth daily. 90 tablet 3 09/04/2013 10/12/2013 pediatric multivitamin with iron chewable tablet Take 1 tablet by mouth daily. 05/09/2014 documented as of this encounter Plan of Treatment Upcoming Encounters Date Type Department Care Team (Late st Contact Info) Description 01/27/2024 1:00 PM EST Appointment Non-Invasive [place] [phone] Anton Márquez MD [facility] [place] [address] 01/27/2024 3:00 PM EST Office Visit Cardiology at [address] [phone] Anton Márquez MD [facility] [place] [address] documented as of this encounter Procedures Procedure Name Priority Date/Time Associated Diagnosis Comments US OB DETAILED MORPHOLOGY Routine 10/04/2013 3:56 PM EDT documented in this encounter Results * US OB Targeted Morphology (10/04/2013 3:56 PM EDT) Anatomical Region Laterality Modality Pelvis, Abdomen Ultrasound 10/04/2013 3:56 PM EDT Narrative 10/04/2013 3:57 PM EDT OBSTETRICS REPORT ?(Signed Final 10/04/2013 03:52 ? pm) Patient Info ID #: ? [id number] ?: ??[birth year] (18 yrs) Name: ? LAYO Christ ?Visit Date: 10/04/2013 03:38 pm ? JORDON Performed By Performed By: ?Anuja Perez RDMS Attending: ? Ernst MEDINA, Rod Olvera Referred By: ? E RUSTY SANTIAGO MD Service(s) Provided ??[facility] - Targeted Morphology - Genetics - ? [id number] ??[id number] Indications ?? growth; morphology Evaluation Num Of Fetuses: ? 1 Heart ? 157 Rate(bpm): Cardiac Activity: ?? Observed, normal rhythm Presentation: ? Cephalic Placenta: ? Posterior P. Cord Insertion: ??Not able to evaluate Amniotic Fluid CHRISTY FV: ?Normal CHRISTY Sum: ? 16.52 ?? cm ? Larg Pckt: ?5.74 ??cm RUQ: ?? 5.74 ?cm ?LUQ: ?? 4.68 ?? cm RLQ: ?? 3.63 ?cm ?LLQ: ?? 2.47 ?? cm -------- Biometry -------- BPD: ?89.4 ??mm ?G. Age: ?? 36w 1d ?55 ??% OFD: ? 115.5 ??mm HC: ?323.7 ??mm ?G. Age: ?? 36w 4d ?26 ??% AC: ?309.8 ??mm ?G. Age: ?? 34w 6d ?21 ??% FL: ? 78.2 ??mm ?G. Age: ?? 40w 0d ?> 97 ??% HUM: ?66.2 ??mm ?G. Age: ?? 38w 3d ?> 95 ??% LV: ?6.8 ??mm CI: ?77.4 ??% ? 70 - 86 FL/HC: ? 24.2 ??% ? 20.1 - 22.1 HC/AC: ? 1.04 ?0.93 - 1.11 FL/BPD: ?87.5 ??% ? 71 - 87 FL/AC: ? 25.2 ??% ? 20 - 24 Est. FW: ?2984 ?? gm ? 6 lb 9 oz ?71 ??% Gestational Age Clinical ROHINI: ??36w 3d ?ROHINI: ?? 10/29/13 U/S Today: ? 36w 6d ?ROHINI: ?? 10/26/13 Best: ?36w 3d ?? Det. By: ??Clinical ROHINI ? ROHINI: ?? 10/29/13 Targeted Anatomy Central Nervous System Calvarium: ?Within Normal Limits Intracranial: ? Within Normal Limits Lat. Ventricles: ?Within Normal Limits Cerebellum: ? Limited Views Choroid Plexus: ? Limited Views Cisterna Magna: ? Limited Views Spine Cervical: ? Visualized Thoracic: ? Visualized Lumbar: ? Visualized Sacral: ? Visualized Head/Neck Face: ? Not well seen due to Lips: ? Not well seen due to Nuchal Fold: ?Not visualized due to Thorax Four Chamber: ? Within Normal Limits Cardiac Motion: ? Normal Rhythm R Outflow Tract: ?Visualized L Outflow Tract: ?Not visualized due to Cardiac [place]: ? Visualized Diaphragm: ?Visualized Abdomen Ventral Wall: ? Visualized Stomach: ?Visualized Lt Kidney: ?Visualized Rt Kidney: ?Visualized Bladder: ?Visualized Extremities Lt Humerus: ? Within Nomal Limits Rt Humerus: ? Within Normal Limits Lt Forearm: ? Not visualized due to Rt Forearm: ? Not visualized due to Lt Hand: ?Not visualized due to Rt Hand: ?Not visualized due to Lt Femur: ? Within Normal Limits Rt Femur: ? Within Normal Limits Lt Lower Leg: ? Not visualized due to Rt Lower Leg: ? Not visualized due to Lt Foot: ?Not visualized due to Rt Foot: ?Not visualized due to Other Umbilical Cord: ? 3 vessel cord Cord Insertion: ? Not visualized due to Comment: ? Nasal Bone: Not well seen due to ?postiion Doppler - Uterine Artery Right S/D Ratio: ? RI: ?PI: ?%Tile Left S/D Ratio: ?RI: ?PI: ?%Tile Cervix Uterus Adnexa Left Ovary Not visualized Right Ovary Not visualized Impression 3rd Trimester Summary Single intrauterine with a gestational age of 36w 3d based on outside dates. Composite age based on the current ultrasound alone is 36w 6d. Estimated weight corresponds to the 71th percentile for 36w 3d. Current growth parameters are consistent indicating normal growth. Amniotic fluid volume is Normal, CHRISTY = 16.52 cm Anatomical survey is limited due to the late gestational age. I ??viewed the images and agree with the above interpretation. ? Rod Dukes MD Electronically Signed Final Report ?? 10/04/2013 03:52 pm Procedure Note Rod Dukes MD - 10/04/2013 OBSTETRICS REPORT (Signed Final 10/04/2013 03:52 pm) Patient Info ID #: [id number] : [birth year] (18 yrs) Name: LAYO Polo Visit Date: 10/04/2013 03:38 pm JORDON Performed By Performed By: Anuja Perez RDMS Attending: Rod Dukes MD Referred By: Zuri SANTIAGO MD Service(s) Provided [facility] - Targeted Morphology - Genetics - [id number] Indications growth; morphology Evaluation Num Of Fetuses: 1 Heart 157 Rate(bpm): Cardiac Activity: Observed, normal rhythm Presentation: Cephalic Placenta: Posterior P. Cord Insertion: Not able to evaluate Amniotic Fluid CHRISTY FV: Normal CHRISTY Sum: 16.52 cm Larg Pckt: 5.74 cm RUQ: 5.74 cm LUQ: 4.68 cm RLQ: 3.63 cm LLQ: 2.47 cm -------- Biometry -------- BPD: 89.4 mm G. Age: 36w 1d 55 % OFD: 115.5 mm HC: 323.7 mm G. Age: 36w 4d 26 % AC: 309.8 mm G. Age: 34w 6d 21 % FL: 78.2 mm G. Age: 40w 0d > 97 % HUM: 66.2 mm G. Age: 38w 3d > 95 % LV: 6.8 mm CI: 77.4 % 70 - 86 FL/HC: 24.2 % 20.1 - 22.1 HC/AC: 1.04 0.93 - 1.11 FL/BPD: 87.5 % 71 - 87 FL/AC: 25.2 % 20 - 24 Est. FW: 2984 gm 6 lb 9 oz 71 % Gestational Age Clinical ROHINI: 36w 3d ROHINI: 10/29/13 U/S Today: 36w 6d ROHINI: 10/26/13 Best: 36w 3d Det. By: Clinical ROHINI ROHINI: 10/29/13 Targeted Anatomy Central Nervous System Calvarium: Within Normal Limits Intracranial: Within Normal Limits Lat. Ventricles: Within Normal Limits Cerebellum: Limited Views Choroid Plexus: Limited Views Cisterna Magna: Limited Views Spine Cervical: Visualized Thoracic: Visualized Lumbar: Visualized Sacral: Visualized Head/Neck Face: Not well seen due to Lips: Not well seen due to Nuchal Fold: Not visualized due to Thorax Four Chamber: Within Normal Limits Cardiac Motion: Normal Rhythm R Outflow Tract: Visualized L Outflow Tract: Not visualized due to Cardiac [place]: Visualized Diaphragm: Visualized Abdomen Ventral Wall: Visualized Stomach: Visualized Lt Kidney: Visualized Rt Kidney: Visualized Bladder: Visualized Extremities Lt Humerus: Within Nomal Limits Rt Humerus: Within Normal Limits Lt Forearm: Not visualized due to Rt Forearm: Not visualized due to Lt Hand: Not visualized due to Rt Hand: Not visualized due to Lt Femur: Within Normal Limits Rt Femur: Within Normal Limits Lt Lower Leg: Not visualized due to Rt Lower Leg: Not visualized due to Lt Foot: Not visualized due to Rt Foot: Not visualized due to Other Umbilical Cord: 3 vessel cord Cord Insertion: Not visualized due to Comment: Nasal Bone: Not well seen due to postiion Doppler - Uterine Artery Right S/D Ratio: RI: PI: %Tile Left S/D Ratio: RI: PI: %Tile Cervix Uterus Adnexa Left Ovary Not visualized Right Ovary Not visualized Impression 3rd Trimester Summary Single intrauterine with a gestational age of 36w 3d based on outside dates. Composite age based on the current ultrasound alone is 36w 6d. Estimated weight corresponds to the 71th percentile for 36w 3d. Current growth parameters are consistent indicating normal growth. Amniotic fluid volume is Normal, CHRISTY = 16.52 cm Anatomical survey is limited due to the late gestational age. I viewed the images and agree with the above interpretation. Rod Dukes MD Electronically Signed Final Report 10/04/2013 03:52 pm E Rusty Santiago MD IMG US OB ORDERAB LES documented in this encounter Visit Diagnoses Not on filedocumented in this encounter Care Teams Ui Architect Relationship Specialty Start Date End Date Rustam Coppola MD [address] [address] PCP - General 06/30/13 05/30/18 documented as of this encounter
--- OUTSIDE RECORDS SUMMARY | 2024-01-03 13:14 | XMS_ITS | Encounter Summary ---
Author Organization [facility] [place] [address] Care Team Providers Care Interactive Digital Media Specialist Name Role Phone Rustam Coppola MD Primary Care Provider [phone] Encounter Details Date Type Department Care Team (Late st Contact Info) Description 08/02/2013 Orders Only Cardiology at [address] [phone] [place] Bobo MD [facility] [place] [address] Cardiomyopathy (Primary Dx) Social History Tobacco Use Types [...] 1:00 PM EST Appointment Non-[place] [address] Anton Márquez MD [facility] [place] [address] 01/27/2024 3:00 PM EST Office Visit Cardiology at [address] [place] [address] Anton Márquez MD [facility] [place] [address] Scheduled Orders Name Type Priority Associated Diagnoses Orde r Schedule Basic Metabolic Panel (non-fasting) Lab Routine Cardiomyopathy Expected: 08/02/2013, Expires: 08/02/2014 documented as of this encounter Visit Diagnoses Diagnosis Cardiomyopathy- Primary Other primary cardiomyopathies documented in this encounter Care Teams Interactive Digital Media Specialist Relationship Specialty Start Date End Date Rustam Coppola MD [address] [place] [address] PCP - General 06/30/13 05/30/18 documented as of this encounter
--- OUTSIDE RECORDS SUMMARY | 2024-01-03 13:14 | XMS_ITS | Encounter Summary ---
[place] [address] Care Team Providers Care Service Mechanic Name Role Phone Rustam Coppola MD Primary Care Provider [phone] Reason for Visit * Reason Comments Follow-up Encounter Details Date Type Department Care Team (Late st Contact Info) Description 09/19/2013 3:15 PM EDT Follow-Up Obstetrics [place] [phone] Zuri Borden MD [facility] DR OBSTETRICS [place] [address] High risk teen , third trimester; Cardiomyopathy Discharge Disposition: Home Social History Tobacco [...] Sign Reading Time Taken Comments Blood Pressure 118/68 09/19/2013 2:58 PM EDT Pulse - - Temperature - - Respiratory Rate - - Oxygen Saturation - - Inhaled Oxygen Concentration - - Weight 107.5 kg (237 lb 1.6 oz) 09/19/2013 2:58 PM EDT Height - - Body Mass Index 36.05 09/19/2013 1:30 PM EDT Body Mass Index Percentile 98.19% 09/19/2013 2:5 8 PM EDT Growth Chart: [facility] (Girls, 2- 20 Years) documented in this encounter Progress Notes * Zuri Borden MD - 09/19/2013 3:22 PM EDT Gestational age: 34w2d, returns for follow-up visit, as an add-on. She was scheduled for f/u visit in July 2013, but did not keep that appointment. Ms. Porras saw Dr. Dannielle Gallegos in Cardiology today, who called and asked us to see the patient, to reestablish contact. Ms. Porras reports good movement; no leaking, bleeding, regular contractions or pain. No cardiac symptoms at this time. She reports she has been receiving routine care with Dr. Leon Hoang. Patient Active Problem List Diagnosis Date Noted ??? Cardiomyopathy 07/21/2013 ??? High risk teen 07/21/2013 Physical Exam BP 118/68 Wt 107.548 kg (237 lb 1.6 oz) General: alert, well appearing, in no apparent distress, oriented to person, place and time, overweight HEENT: normocephalic, atraumatic Abdomen: Gravid, soft, nontender Extremities: trace edema Neurologic:alert, oriented, normal speech, no focal findings or movement disorder noted Psychiatric: Affect is Appropriate. Assessment and Recommendations: 18 y.o. year old female at 34w2d weeks gestation, who requires delivery planning here at [facility].Plan for RTC in 2 weeks with next cardiology appointment. At that time, we will obtain ultrasound for growth, as well as anesthesia consultation. We will obtain GBS culture at visit in two weeks. Likely planned delivery in the CCU. I discussed induction of labor between 39 and 40 weeks, if the patient remains undelivered at that time. She will be 39w1d on October 23. I will put herin the calendar for IOL on that date; we did not discuss the date prior to her leaving the office today. This date is of course subject to change based upon the cardiology services recommendations/scheduling conflicts. I appreciate the opportunity to be involved in this patients care, and am available if further questions should arise. Zuri BORDEN MD 09/19/2013 Cc: Leon Hoang MD; Rustam Coppola MD; Dannielle Gallegos MD documented in this encounter Plan of Treatment Upcoming Encounters Date Type Department Care Team (Late st Contact Info) Description 01/27/2024 1:00 PM EST Appointment Non-Invasive [place] [address] Anton Márquez MD [facility] [place] [address] 01/27/2024 3:00 PM EST Office Visit Cardiology at [address] [phone] Anton Márquez MD [facility] [place] [address] documented as of this encounter Visit Diagnoses Diagnosis High risk teen , third trimester Cardiomyopathy Other primary cardiomyopathies documented in this encounter Care Teams Service Mechanic Relationship Specialty Start Date End Date Rustam Coppola MD [address] [place] [id number] PCP - General 06/30/13 05/30/18 documented as of this encounter
--- OUTSIDE RECORDS SUMMARY | 2024-01-03 13:14 | XMS_ITS | Encounter Summary ---
[place] [address] Care Team Providers Care Drainage Inspector Name Role Phone Rustam Coppola MD Primary Care Provider [phone] Reason for Visit * Reason Onset Date Comments Other 09/13/2013 ECG ORDER-NEWSPAPER DISTRIBUTOR SUPERVISOR AL Encounter Details Date Type Department Care Team (Late st Contact Info) Description 09/13/2013 Telephone Cardiology at [address] [phone] Dannielle Gallegos MD [facility] [place] [address] Other (ECG ORDER-EXTERNAL) Social History Tobacco Use Types Packs/Day Years [...] Telephone Encounter - Dori Fregoso - 09/13/2013 3:[address] Gallegos, Please sign the attached ECG order. Per your request, she will have one done today. We are faxing this to [facility], so she may do it close to home. Thank You, Dori documented in this encounter Plan of Treatment Upcoming Encounters Date Type Department Care Team (Late st Contact Info) Description 01/27/2024 1:00 PM EST Appointment Non-[place] [address] Anton Márquez MD [facility] [place] [address] 01/27/2024 3:00 PM EST Office Visit Cardiology at [address] [phone] Anton Márquez MD [facility] [place] [address] Scheduled Orders Name Type Priority Associated Diagnoses Orde r Schedule EKG 12 Lead ECG STAT Tachycardia, unspecified Ordered: 09/13/2013 documented as of this encounter Visit Diagnoses Diagnosis Tachycardia, unspecified Cardiomyopathy Other primary cardiomyopathies documented in this encounter Care Teams Drainage Inspector Relationship Specialty Start Date End Date Rustam Coppola MD [address] [place] [id number] PCP - General 06/30/13 05/30/18 documented as of this encounter
--- OUTSIDE RECORDS SUMMARY | 2024-01-03 13:14 | XMS_ITS | Encounter Summary ---
Author Organization [facility] Address [facility] [place] [address] Care Team Providers Care Radio Time Buyer Name Role Phone Rustam Coppola MD Primary Care Provider [phone] Encounter Details Date Type Department Care Team (Latest Contact Info) Description 09/19/2013 2:44 PM EDT - 09/19/2013 11:59 PM EDT Hospital [place] [phone] Chau Felder MD [facility] [place] [address] Supervision of other high-risk (V23.89); Other primary cardiomyopathies Discharge Disposition: Home Social History Tobacco Use [...] Refills Start Date End Date metoprolol succinate (TOPROL XL) 25 mg 24 hr tabletIndications:Cardiom yopathy Take 1 tablet by mouth daily. 90 tablet 3 09/04/2013 10/12/2013 pediatric multivitamin with iron chewable tablet Take 1 tablet by mouth daily. 05/09/2014 documented as of this encounter Plan of Treatment Upcoming Encounters Date Type Department Care Team (Late st Contact Info) Description 01/27/2024 1:00 PM EST Appointment Non-Invasive [place] [phone] Anton Márquez MD [facility] [place] [address] 01/27/2024 3:00 PM EST Office Visit Cardiology at [address] [phone] Anton Márquez MD [facility] [place] [address] documented as of this encounter Procedures Procedure Name Priority Date/Time Associated Diagnosis Comments HEMOGRAM STAT 09/19/2013 2:51 PM EDT Supervision of other high-risk (V23.89) Other primary cardiomyopathies DIFFERENTIAL, AUTOMATED STAT 09/19/2013 2:51 PM EDT Supervision of other high-risk (V23.89) Other primary cardiomyopathies CBC (WITH DIFF) STAT 09/19/2013 2:51 PM EDT Supervision of other high-risk (V23.89) Other primary cardiomyopathies PRO-BRAIN NATRIURETIC PEPTIDE STAT 09/19/2013 2:51 PM EDT Supervision of other high-risk (V23.89) Other primary cardiomyopathies COMPREHENSIVE METABOLIC PANEL STAT 09/19/2013 2:51 PM EDT Supervision of other high-risk (V23.89) Other primary cardiomyopathies documented in this encounter Results * (ABNORMAL) Differential, Automated (09/19/2013 2:51 PM EDT) Neutrophil % 73.6 37.0 - 77.0 % [facility] Neutrophil Absolute 9.06(H) 1.50 - 8.00 x10(3)/mc L [facility] Lymph % 17.2(L) 20.0 - 50.0 % [facility] Lymphocytes Abs 2.1 1.2 - 5.2 x10(3)/mc L [facility] Monocyte % 5.5 2.0 - 12.0 % [facility] Monocyte Abs 0.7 0.2 - 1.0 x10(3)/mc L [facility] Eos % 2.0 0.0 - 7.0 % [facility] Eosinophils Abs 0.2 0.0 - 0.5 x10(3)/mc L [facility] Basophil % 0.2 0.0 - 2.0 % [facility] Baso Absolute 0.0 0.0 - 0.2 x10(3)/mc L [facility] Immature Gran % 1.50(H) 0.00 - 0.66 % [facility] Comment: Immature granulocytes(IG's)percentage and absolute count will include metamyelocytes, myelocytes, and promyelocytes. Blood smears from CBCs yielding IG's will be scanned manually for concordance. If this scan disagrees with the automated IG or if promyelocytes are noted, a manual differential will be performed. Immature Gran Absolute 0.19(H) 0.00 - 0.05 x10(3)/mc L [facility] Blood specimen (specimen) 09/19/2013 2:51 PM EDT 09/19/2013 3:14 PM EDT Narrative Resulting Agency Comment Spec In Lab Chau Felder MD HEMATOLOGY ORDERABLE S [facility] * (ABNORMAL) Hemogram (09/19/2013 2:51 PM EDT) Pathologist [facility] White Blood Cell 12.3 4.5 - 13.0 x10(3)/mc L [facility] Red Blood Cell 3.74(L) 4.10 - 5.10 x10(6)/mc L [facility] Hemoglobin 10.0(L) 12.0 - 16.0 gm/dL [facility] Hematocrit 31.9(L) 36.0 - 46.0 % [facility] Mean Cell Volume 85.3 76.0 - 98.0 fL [facility] Mean Cell Hemoglobin 26.7 25.0 - 35.0 pg [facility] Mean Cell Hemoglobin Concentration 31.3(L) 32.0 - 36.5 gm/dL [facility] Platelet 296 145 - 370 x10(3)/mc L [facility] RDW Standard Deviation 43.8 35.0 - 46.0 fL [facility] RDW coefficient of variation 14.2 10.9 - 14.4 % [facility] Mean Platelet Volume 10.0 9.0 - 12.0 fL [facility] Blood specimen (specimen) 09/19/2013 2:51 PM EDT 09/19/2013 3:14 PM EDT Narrative Resulting Agency Comment Spec In Lab Chau Felder MD HEMATOLOGY ORDERABLE S [facility] * pro-Brain Natriuretic Peptide (09/19/2013 2:51 PM EDT) Pathologist [facility] NT-proBNP 104 <=125 pg/mL [facility] Blood specimen (specimen) 09/19/2013 2:51 PM EDT 09/19/2013 3:14 PM EDT Narrative Resulting Agency Comment Spec In Lab Chau Felder MD CHEMISTRY ORDERABLES [facility] * (ABNORMAL) Comprehensive metabolic panel (non-fasting) (09/19/2013 2:51 PM EDT) Pathologist [facility] Glucose 122 60 - 199 mg/dL [facility] Comment:Diabetes: >=200 mg/d L plus symptoms Blood Urea Nitrogen 6(L) 10 - 20 mg/dL [facility] Creatinine 0.56 0.20 - 0.70 mg/dL [facility] Comment: Please note that the pediatric reference intervals supplied above were not validated at [facility]. Results from pediatric patients should be interpreted [...] questions. Chloride 104 98 - 107 mmol/L [facility] Carbon Dioxide 23 22 - 31 mmol/L [facility] Anion Gap 12 5 - 15 mmol/L [facility] Calcium 9.7 8.5 - 10.5 mg/dL [facility] Protein, Total 6.4 6.4 - 8.3 gm/dL [facility] Albumin 3.2 3.2 - 5.2 gm/dL [facility] Aspartate Aminotransferase 19 5 - 30 unit/L [facility] Alanine Aminotransferase 13 0 - 25 unit/L [facility] Alkaline Phosphatase 106 55 - 140 unit/L [facility] Bilirubin, Total 0.1 <=1.0 mg/dL [facility] Bilirubin, Direct <0.1 0.0 - 0.3 mg/dL [facility] Est Glomerular Filtration Rate [...] the following links into your internet browser. [email or web address] Blood specimen (specimen) 09/19/2013 2:51 PM EDT 09/19/2013 3:14 PM EDT Narrative Resulting Agency Comment Spec In Lab Chau Felder MD CHEMISTRY ORDERABLES Performing Organization Address City/State/ZIP Co la Phone Number [facility] documented in this encounter Visit Diagnoses Diagnosis Supervision of other high-risk (V23.89) Supervision of other high-risk Other primary cardiomyopathies documented in this encounter Care Teams Radio Time Buyer Relationship Specialty Start Date End Date Rustam Coppola MD [address] [place] [id number] PCP - General 06/30/13 05/30/18 documented as of this encounter
--- OUTSIDE RECORDS SUMMARY | 2024-01-03 13:14 | XMS_ITS | Encounter Summary ---
[place] [address] Care Team Providers Care Concrete Finishing Machine Operator Name Role Phone Rustam Coppola MD Primary Care Provider [phone] Reason for Visit * Reason Onset Date Comments Medication Refill 09/04/2013 Encounter Details Date Type Department Care Team (Late st Contact Info) Description 09/04/2013 Refill Cardiology at [address] [phone] Dannielle Gallegos MD [facility] [address] Medication Refill Social History Tobacco Use Types [...] 1:00 PM EST Appointment Non-[place] [phone] Anton Márquez MD [facility] [place] [address] 01/27/2024 3:00 PM EST Office Visit Cardiology at [address] [phone] Anton Márquez MD [facility] [place] [address] documented as of this encounter Visit Diagnoses Diagnosis Cardiomyopathy- Primary Other primary cardiomyopathies documented in this encounter Care Teams Concrete Finishing Machine Operator Relationship Specialty Start Date End Date Rustam Coppola MD [address] [place] [id number] PCP - General 06/30/13 05/30/18 documented as of this encounter
--- OUTSIDE RECORDS SUMMARY | 2024-01-03 13:14 | XMS_ITS | Encounter Summary ---
[place] [address] Care Team Providers Care Technology Integration Specialist Name Role Phone Rustam Coppola MD Primary Care Provider [phone] Encounter Details Date Type Department Care Team (Late st Contact Info) Description 10/07/2013 8:49 PM EDT Anesthesia Event [place] [phone] Giles Owusu MD [facility] [place] [address] Anesthesia Record Procedure Summary Procedure Name Responsible [...] OR Notes * Anesthesia Postprocedure Evaluation - Giles Owusu MD - 10/11/2013 9:42 AM EDT Patient: Mary Porras Procedure(s) Performed: Procedure(s): @ DELIVERY Actual Anesthetic: Spinal. Patient location: Labor and Delivery Post-op pain: Adequate analgesia Post-op nausea: no nausea or vomiting Last Vitals: Filed Vitals: 10/11/13 0716 BP: 110/66 Pulse: 111 Temp: 37 ??C (98.6 ??F) Resp: 18 Post-op cardiovascular and respiratory status: is stable Level of consciousness: awake, alert and oriented Complications: no apparent complications and tolerated the procedure well Fluid Status: normal * Anesthesia Procedure Notes - Safia Maya MD - 10/07/2013 8:50 PM EDT Associated Order(s): ANE NEURAXIAL UPDATED Procedure: Neuraxial Block Labor Analgesia Type: Epidural The patient was greeted; the risks and benefits were reviewed. The anesthetic consent was obtained.The medical history and chart were reviewed. The timeout was performed. Start time: 10/07/2013 6:49 PM End time: 10/07/2013 7:10 PM Patient Location: Other - add comment below Patient Prep Position: Sitting Prep: Hat, Hand Hygiene, Mask, Sterile Gloves, Chlorhexidine and Patient Draped Injection technique: continuous Skin Anesthetic Lidocaine 1% 10 ml Procedure Technique Level of needle insertion: L3-4 Needle approach: midline Needle Type: Tuohy Needle length: 3.5 in Needle insertion depth when AKOSUA achieved: 8.5 cm Technique for Loss of Resistance: AKOSUA air and AKOSUA saline A 20 guage epidural catheter introduced Catheter at skin depth: 14 cm Dressing/Secured with: Tegaderm and Chlorhexidine Tegaderm Number of attempts: 1 Test dose A test dose of 3 mL was administered. Events/Notes Events: None Resident/SERVICE DISPATCHER: Zulma Fellow: Attending Physician: Lali ~~~~~~~~~~~~~~~~~~~~~~~~~~~~~~~~~~~~~~~~~~~~~~~~~~~~~~~~~~~~ * Anesthesia Preprocedure Evaluation - Giles Owusu MD - 10/04/2013 3:11 PM EDT Pre-Anesthesia Evaluation for: Mary Porras a 18 y.o. female. Patient Active Problem List Diagnosis ??? Cardiomyopathy [...] History Procedure Date ??? Central venous catheter History Substance Use Topics ??? Smoking status: Never Smoker ??? Smokeless tobacco: Not on file ??? Alcohol Use: No History Drug Use No No Known Allergies Medications: MAR and/or home medications have been reviewed. Physical Exam: Heart Rate: [110] BP: (110-112)/(70-74) Resp: -- SpO2: [97 %] There is no height or weight on file to calculate BMI. Airway Assessment: Mallampati: II TM distance: >3 FB Neck ROM: full Cardiovascular Assessment: cardiovascular exam normal Pulmonary Assessment: pulmonary exam normal Dental Assessment: - normal exam Misc Assessment: Labs/Studies: TTE (10/04/2013): 1. Technically difficult study. 2. The left [...] suggest that LV filling pressure has increased. Anesthesia Plan: ASA 3 spinal and epidural, Morbidly obese 18 y.o. female at 36w3d with PMH per above significant for dilated cardiomyopathy with h/o symptomatic CHF; being evaluated in PAT clinic for anesthesia recommendations during labor and delivery. She has been advised by her plant and instrument engineer and yardage control operator forming to allow for an early epidural placement so as to blunt the sympathetic response of labor. We also discussed that this would also allow us to safely obtain a surgical block in a controlled fashion should a be necessary. Patient denies h/o migraines, any current back pain or prior back surgery, LE paresthesia or weakness, or problems with voiding. No history of problems with anesthesia. Allergies: No Known Allergies HGB 10.0 09/19/2013 PLATELET 296 09/19/2013 No results found for this basename: ABORH Risks and benefits of epidural, spinal, and general anesthesia discussed with patient including butnot limited to bleeding, infection, need to repeat a regional procedure, post-dural puncture headache, damage to teeth, and sore throat. Patient expressed understanding and was offered opportunity toask questions. Consent in chart. Informed Consent: Anesthetic plan and risks [facility]: documented in this encounter Plan of Treatment Upcoming Encounters Date Type Department Care Team (Late st Contact Info) Description 01/27/2024 1:00 PM EST Appointment Non-Invasive [place] [phone] Anton Márquez MD [facility] [place] [address] 01/27/2024 3:00 PM EST Office Visit Cardiology at [address] [phone] Anton Márquez MD [facility] [place] [address] documented as of this encounter Procedures Procedure Name Priority Date/Time Associated Diagnosis Comments ANE NEURAXIAL UPDATED Routine 10/07/2013 8:52 PM EDT documented in this encounter Results * ANE NEURAXIAL UPDATED (10/07/2013 8:52 PM EDT) Narrative Safia Maya MD - 10/07/2013 8:52 PM EDT Safia Maya MD ? 10/07/2013 ??8:52 PM Procedure: ?? Neuraxial Block Labor Analgesia Type: Epidural The patient was greeted; the risks and benefits were reviewed. ?? The anesthetic consent was obtained. ??The medical history and chart were reviewed. ??The timeout was performed. Start time: 10/07/2013 6:49 PM End time: 10/07/2013 7:10 PM Patient Location: Other - add comment below Patient Prep Position: Sitting Prep: Hat, Hand Hygiene, Mask, Sterile Gloves, Chlorhexidine and Patient Draped Injection technique: continuous Skin Anesthetic Lidocaine 1% ??10 ml Procedure Technique Level of needle insertion: L3-4 Needle approach: midline Needle Type: Tuohy Needle length: 3.5 in Needle insertion depth when AKOSUA achieved: 8.5 cm Technique for Loss of Resistance: AKOSUA air and AKOSUA saline A 20 guage epidural catheter introduced Catheter at skin depth: 14 cm Dressing/Secured with: Tegaderm and Chlorhexidine Tegaderm Number of attempts: 1 Test dose A test dose of 3 mL was administered. Events/Notes Events: ??None Resident/SERVICE DISPATCHER: Zulma Fellow: Attending Physician: ??Lali ~~~~~~~~~~~~~~~~~~~~~~~~~~~~~~~~~~~~~~~~~~~~~~~~~~~~~~~~~~~~ Procedure Note Safia Maya MD - 10/07/2013 8:50 PM EDT Procedure: Neuraxial Block Labor Analgesia Type: Epidural The patient was greeted; the risks and benefits were reviewed. Theanesthetic consent was obtained. The medical history and chart werereviewed. The timeout was performed. Start time: 10/07/2013 6:49 PM End time: 10/07/2013 7:10 PM Patient Location: Other - add comment below Patient Prep Position: Sitting Prep: Hat, Hand Hygiene, Mask, Sterile Gloves, Chlorhexidine and PatientDraped Injection technique: continuous Skin Anesthetic Lidocaine 1% 10 ml Procedure Technique Level of needle insertion: L3-4 Needle approach: midline Needle Type: Tuohy Needle length: 3.5 in Needle insertion depth when AKOSUA achieved: 8.5 cm Technique for Loss of Resistance: AKOSUA air and AKOSUA saline A 20 guage epidural catheter introduced Catheter at skin depth: 14 cm Dressing/Secured with: Tegaderm and Chlorhexidine Tegaderm Number of attempts: 1 Test dose A test dose of 3 mL was administered. Events/Notes Events: None Resident/SERVICE DISPATCHER: Zulma Fellow: Attending Physician: Lali ~~~~~~~~~~~~~~~~~~~~~~~~~~~~~~~~~~~~~~~~~~~~~~~~~~~~~~~~~~~~ Safia Álvarez MD [employer] [facility] documented in this encounter Visit Diagnoses Not on filedocumented in this encounter Care Teams Technology Integration Specialist Relationship Specialty Start Date End Date Rustam Coppola MD [address] [place] [id number] PCP - General 06/30/13 05/30/18 documented as of this encounter
--- OUTSIDE RECORDS SUMMARY | 2024-01-03 13:14 | XMS_ITS | Encounter Summary ---
[place] [address] Care Team Providers Care Senior Accounting Analyst Name Role Phone Rustam Coppola MD Primary Care Provider [phone] Encounter Details Date Type Department Care Team (Latest Contact Info) Description 08/02/2013 11:41 AM EDT - 08/02/2013 11:59 PM EDT Hospital Encounter [place] [phone] LV dysfunction; Cardiomyopathy Social History Tobacco Use Types Packs/Day [...] Sig Dispensed Refills Start Date End Date pediatric multivitamin with iron chewable tablet Take 1 tablet by mouth daily. 05/09/2014 metoprolol succinate (TOPROL XL) 25 mg 24 hr tablet Take 1 tablet by mouth daily. 30 tablet 12 06/30/2013 09/04/2013 documented as of this encounter Plan of Treatment Upcoming Encounters Date Type Department Care Team ([facility] Contact Info) Description 01/27/2024 1:00 PM EST Appointment [place] [address] Anton Márquez MD [facility] [place] [address] 01/27/2024 3:00 PM EST Office Visit Cardiology at [address] [phone] Anton Márquez MD [facility] [place] [address] documented as of this encounter Procedures Procedure Name Priority Date/Time Associated Diagnosis Comments ECHOCARDIOGRAM TRANSTHORACIC Routine 08/02/2013 1:22 PM EDT LV dysfunction Cardiomyopathy documented in this encounter Results * Echocardiogram Transthoracic(Leb) (08/02/2013 1:22 PM EDT) Pathologist Comfort Line EF 50 HEARTMedialive SYSTEM Anatomical Region Laterality Modality Other 08/04/2013 Narrative 08/04/2013 7:41 PM EDT Amended Report Procedure: ? Transthoracic Echocardiogram Patient: ? JORDON Polo ?(Age): 1995(18) Med Rec#: ?[id number] ? Sex: ?F ? [place] [place] Ht / Wt: ??167(cm)/89(kg) Pt. Loc: ? Echo Lab ? BSA: ?2.03 Study Date: ?08/02/2013 ? Pt. Type: Outpatient Tape: ? Referring: Chau Felder ([id number]) Diagnosis: ??Cardiomyopathy (425.4) CPT Code(s): ??Spectral Doppler (69352), ??Color Doppler (33712), ??Echo Full (76059), Indication(s): ??Congestive heart failure Rhythm: Tachycardia HR ?BP 110 ? 112/59 ?? SUMMARY: 1. The left ventricle is mildly dilated. Global left ventricular systolic function is mildly reduced. The quantitative left ventricular ejection fraction by biplane Higginbotham's method is 50%.There is diffuse hypokinesis present. 2. The right ventricle is not well visualized. Right ventricular global systolic function is probably normal. The estimated right atrial pressure is 8 mmHg. 3. The left atrium is mildly dilated. The right atrium is normal in size. 4. There is no hemodynamically significant valve disease. 5. The pericardium appears normal and there is no evidence of a pericardial effusion. Compared to the images of 30 June 2013, there has been no significant change. FINDINGS: Study Quality ?Adequate Left Ventricle ?The left ventricle is mildly dilated. ?Left ventricular wall thickness is normal. ?Global left ventricular systolic function is mildly reduced. ?The quantitative left ventricular ejection fraction by biplane Higginbotham's method is 50%. ?There is diffuse hypokinesis present. ?Doppler assessment is consistent with normal left sided filling pressure. ?The ??basal anteroseptal, basal anterior, basal anterolateral, basal inferolateral, basal inferior, basal inferoseptal, mid anteroseptal, mid anterior, mid anterolateral, mid inferolateral, mid inferior, mid inferoseptal, apical septal, apical anterior, apical lateral and apical inferior wall segments are hypokinetic. Left Atrium ?The left atrium is mildly dilated. Right Ventricle ?The right ventricle is not well visualized. ?The right ventricle is mildly dilated. ?Right ventricular wall thickness is normal. ?Right ventricular global systolic function is probably normal. ?Pulmonary artery hypertension could not be assessed due to inadequate tricuspid regurgitation jet. ?The estimated right atrial pressure is 8 mmHg. Right Atrium ?The right atrium is normal in size. Aortic Valve ?The aortic valve is trileaflet. The leaflets are thin with normal excursion. There is no aortic stenosis or regurgitation present. Mitral Valve ?The mitral valve appears normal in structure and function. ?There is trace mitral regurgitation present. Tricuspid Valve ?The tricuspid [...] dimension consistent with elevated right atrial pressure. Misc ?There is no hemodynamically significant valve disease. ?See [...] ? Mid-Inferior ?Hypokinetic ? Mid-Inferoseptal ?Hypokinetic ? [place]-Septal ? Hypokinetic ? [place]-Anterior ? Hypokinetic ? [place]-Lateral ?Hypokinetic ? [place]-Inferior ? Hypokinetic ? [place]-Tip ?Hypokinetic ? Chambers ?Value ?Units (Range) ? IVSd 2D ? 1 ?cm ? LVIDd 2D ?5.6 ?cm ? PWd 2D ?0.9 ?cm ? LVIDs 2D ?4.1 ?cm ? LVFS 2D ? 27 ? % ? LA area ? 21 ? cm2 (<21) ? RA area ? 16 ? cm2 (<18) ? Ao root ? 2.8 ?cm (2.1 to 3.6) ? Asc Ao ?2.6 ?cm (2 to 3.5) ? Mitral Valve ?Value ?Units (Range) ? E peak ?0.77 ? m/sec ? E/A ratio ? 1.2 ?ratio ? MVDT ?155 ?msec ? E1 ?0.08 ? m/sec ? E/E1 ?10 ? ratio ? Tricuspid/Pulmonic Valves ?Value ?Units (Range) ? RAP ? 8 ?mmHg ? This report has been electronically signed by: Rogelio Catalan M.D. ? 08/04/2013 19:40:37 Images reviewed and interpretation verified [facility] Cardiac Ultrasound Laboratory Procedure Note Rogelio Catalan MD - 08/04/2013 Amended Report Procedure: Transthoracic Echocardiogram Patient: JORDON Polo DOB(Age): 1995(18) Med Rec#: [id number] Sex: F [place] [facility] [place]t / Wt: 167(cm)/89(kg) Pt. Loc: Echo Lab BSA: 2.03 Study Date: 08/02/2013 Pt. Type: Outpatient Tape: Referring: Chau Felder ([id number]) Diagnosis: Cardiomyopathy (425.4) CPT Code(s): Spectral Doppler (46829), Color Doppler (02528), Echo Full (60055), Indication(s): Congestive heart failure Rhythm: Tachycardia HR BP 110 112/59 SUMMARY: 1. The left ventricle is mildly dilated. Global left ventricular systolic function is mildly reduced. The quantitative left ventricular ejection fraction by biplane Higginbotham's method is 50%.There is diffuse hypokinesis present. 2. The right ventricle is not well visualized. Right ventricular global systolic function is probably normal. The estimated right atrial pressure is 8 mmHg. 3. The left atrium is mildly dilated. The right atrium is normal in size. 4. There is no hemodynamically significant valve disease. 5. The pericardium appears normal and there is no evidence of a pericardial effusion. Compared to the images of 30 June 2013, there has been no significant change. FINDINGS: Study Quality Adequate Left Ventricle The left ventricle is mildly dilated. Left ventricular wall thickness is normal. Global left ventricular systolic function is mildly reduced. The quantitative left ventricular ejection fraction by biplane Higginbotham's method is 50%. There is diffuse hypokinesis present. Doppler assessment is consistent with normal left sided filling pressure. The basal anteroseptal, basal anterior, basal anterolateral, basal inferolateral, basal inferior, basal inferoseptal, mid anteroseptal, mid anterior, mid anterolateral, mid inferolateral, mid inferior, mid inferoseptal, apical septal, apical anterior, apical lateral and apical inferior wall segments are hypokinetic. Left Atrium The left atrium is mildly dilated. Right Ventricle The right ventricle is not well visualized. The right ventricle is mildly dilated. Right ventricular wall thickness is normal. Right ventricular global systolic function is probably normal. Pulmonary artery hypertension could not be assessed due to inadequate tricuspid regurgitation jet. The estimated right atrial pressure is 8 mmHg. Right Atrium The right atrium is normal in size. Aortic Valve The aortic valve is trileaflet. The leaflets are thin with normal excursion. There is no aortic stenosis or regurgitation present. Mitral Valve The mitral valve appears normal in structure and function. There is trace mitral regurgitation present. Tricuspid Valve The tricuspid [...] dimension consistent with elevated right atrial pressure. Misc There is no hemodynamically significant valve disease. See remainder of report for additional findings. Two-dimensional echo, spectral Doppler and color Doppler performed. Wall Motion: Segment Name Rest Base-Anteroseptal Hypokinetic Base-Anterior Hypokinetic Base-Anterolateral Hypokinetic Base-Posterolateral Hypokinetic Base-Inferior Hypokinetic Base-Inferoseptal Hypokinetic Mid-Anteroseptal Hypokinetic Mid-Anterior Hypokinetic Mid-Anterolateral Hypokinetic Mid-Posterolateral Hypokinetic Mid-Inferior Hypokinetic Mid-Inferoseptal Hypokinetic [place]-Septal Hypokinetic [place]-Anterior Hypokinetic [place]-Lateral Hypokinetic [place]-Inferior Hypokinetic [place]-Tip Hypokinetic Chambers Value Units (Range) IVSd 2D 1 cm LVIDd 2D 5.6 cm PWd 2D 0.9 cm LVIDs 2D 4.1 cm LVFS 2D 27 % LA area 21 cm2 (<21) RA area 16 cm2 (<18) Ao root 2.8 cm (2.1 to 3.6) Asc Ao 2.6 cm (2 to 3.5) Mitral Valve Value Units (Range) E peak 0.77 m/sec E/A ratio 1.2 ratio MVDT 155 msec E1 0.08 m/sec E/E1 10 ratio Tricuspid/Pulmonic Valves Value Units (Range) RAP 8 mmHg This report has been electronically signed by: Rogelio Catalan M.D. 08/04/2013 19:40:37 Images reviewed and interpretation verified [facility] Cardiac Ultrasound Laboratory Dannielle Gallegos MD ECHO ORDERABLES documented in this encounter Visit Diagnoses Diagnosis LV dysfunction Heart disease, unspecified Cardiomyopathy Other primary cardiomyopathies documented in this encounter Care Teams Senior Accounting Analyst Relationship Specialty Start Date End Date Rustam Coppola MD [address] [address] PCP - General 06/30/13 05/30/18 documented as of this encounter
--- OUTSIDE RECORDS SUMMARY | 2024-01-03 13:14 | XMS_ITS | Encounter Summary ---
[place] [address] Care Team Providers Care Hoisting Engine Operator Name Role Phone Rustam Coppola MD Primary Care Provider [phone] Encounter Details Date Type Department Care Team (Latest Contact Info) Description 10/04/2013 11:05 AM EDT - 10/04/2013 2:50 PM EDT Hospital Encounter [place] [phone] Heart failure, unspecified; Myocarditis Social History Tobacco Use Types Packs/Day Years [...] 1:00 PM EST Appointment Non-[place] [phone] Anton Márquez MD [facility] [place] [address] 01/27/2024 3:00 PM EST Office Visit Cardiology at [address] [phone] Anton Márquez MD [facility] [place] [address] documented as of this encounter Procedures Procedure Name Priority Date/Time Associated Diagnosis Comments ECHOCARDIOGRAM TRANSTHORACIC Routine 10/04/2013 1:20 PM EDT Heart failure, unspecified Myocarditis documented in this encounter Results * Echocardiogram Transthoracic(Leb) (10/04/2013 1:20 PM EDT) EF 35 HEARTLAB SYSTEM Anatomical Region Laterality Modality Other 10/04/2013 Narrative 10/04/2013 1:56 PM EDT Amended Report Procedure: ? Transthoracic Echocardiogram Patient: ? JORDON Polo ?(Age): 1995(18) Med Rec#: ?[id number] ? Sex: ?F ? [place] Loc: ?[facility] [place] ? Ht / Wt: ??174(cm)/109(kg) Pt. Loc: ? Echo Lab ? BSA: ?2.3 Study Date: ?10/04/2013 ? Pt. Type: Outpatient Tape: ? Referring: Chau Felder ([id number]) Linderman Machine Operator: Kaylene Gimenez Linderman Machine Operator 2: Jan Rivera MS, [facility] Diagnosis: ??Cardiomyopathy (425.4) CPT Code(s): ??Echo Full (49871), ??Spectral Doppler (06190), ??Color Doppler (23273), ??Spectral Doppler (99442), ??Color Doppler (01769), Echo Full (11705), Indication(s): ??Congestive heart failure Rhythm: HR ?BP ?118/68 ?? SUMMARY: 1. Technically difficult study. 2. The left ventricle is moderately dilated (ROHINI 6 cm). ??Left ventricular wall thickness is normal. ??The apex appears to have prominent trabeculations. ?? 3. Global left ventricular systolic function is moderately reduced. Global peak longitudinal strain is -9% and the quantitative left ventricular ejection fraction by biplane Higginbotham's method is 35%, with a visual estimate of 40%. ??There is diffuse hypokinesis present with sparing of the basal lateral wall segments. ??Doppler assessment is consistent with elevated left sided filling pressure (based on E/A of 3.3 and DT of 144ms). 4. The right ventricle is mildly dilated. ??Right ventricular global systolic function is probably normal. ??Pulmonary artery hypertension could not be assessed due to inadequate tricuspid regurgitation jet. 5. The left atrium is mildly dilated by volume index of 32 ml/m2. ??The right atrium is normal in size. 6. There is no hemodynamically significant valve disease. 7. See remainder of report for additional findings. ??Compared to the TTE performed 08/02/13, there is slightly better visualization of the LV; global LV systolic function has not significantly changed; and there is evidence to suggest that LV filling pressure has increased. ?? FINDINGS: Left Ventricle ?The left ventricle is moderately dilated. ?Left ventricular wall thickness is normal. ?Global left ventricular systolic function is moderately reduced. ?The visually estimated left ventricular ejection fraction is 35-40%. ?The quantitative left ventricular ejection fraction by biplane Higginbotham's method is 35%. ?There is diffuse hypokinesis present. ?Doppler assessment is consistent with elevated left sided filling pressure. ?The ??basal anteroseptal, basal anterior, basal inferior, basal inferoseptal, mid anteroseptal, mid anterior, mid anterolateral, mid inferior, mid inferoseptal, apical septal, apical anterior, apical lateral and apical inferior wall segments are hypokinetic. ?A false chord is observed in the left ventricle. Left Atrium ?The left atrium is mildly dilated.by volume index of 32 ml/m2 Right Ventricle ?The right ventricle is mildly dilated. ?Right ventricular wall thickness is normal. ?Right ventricular global systolic function is probably normal. ?Pulmonary artery hypertension could not be assessed due to inadequate tricuspid regurgitation jet. ?The estimated right atrial pressure is 8 mmHg. Right Atrium ?The right atrium is normal in size. Aortic Valve ?The aortic valve is not well visualized. ?The aortic valve is probably tricuspid. ?There [...] inferior vena cava appears normal in size. Misc ?There is no hemodynamically significant valve disease. ?Technically difficult study. ?See remainder of report for additional findings. ?Two-dimensional echo, spectral Doppler and color Doppler performed. Wall Motion: Segment Name ?Rest ? Base-Anteroseptal ?? Hypokinetic ? Base-Anterior ? Hypokinetic ? Base-Anterolateral ??Normal ? Base-Posterolateral Normal ? Base-Inferior ? Hypokinetic ? Base-Inferoseptal ?? Hypokinetic ? Mid-Anteroseptal ?Hypokinetic ? Mid-Anterior ?Hypokinetic ? Mid-Anterolateral ?? Hypokinetic ? Mid-Posterolateral ??Normal ? Mid-Inferior ?Hypokinetic ? Mid-Inferoseptal ?Hypokinetic ? [place]-Septal ? Hypokinetic ? [place]-Anterior ? Hypokinetic ? [place]-Lateral ?Hypokinetic ? [place]-Inferior ? Hypokinetic ? [place]-Tip ?Hypokinetic ? Chambers ?Value ?Units (Range) ? EF ??Bi-p Simp ? 35 ? % (55 to 80) ? IVSd 2D ? 1 ?cm ? LVIDd 2D ?6 ?cm ? PWd 2D ?0.9 ?cm ? LVIDs 2D ?4.9 ?cm ? LVFS 2D ? 19 ? % ? LA area ? 20.9 ? cm2 (<21) ? RA area ? 16 ? cm2 (<18) ? Ao root ? 2.7 ?cm (2.1 to 3.6) ? Asc Ao ?2.5 ?cm (2 to 3.5) ? Mitral Valve ?Value ?Units (Range) ? E peak ?1.1 ?m/sec ? E/A ratio ? 3.2 ?ratio ? MVDT ?144 ?msec ? E1 ?0.09 ? m/sec ? E/E1 ?12.2 ? ratio ? Tricuspid/Pulmonic Valves ?Value ?Units (Range) ? RAP ? 8 ?mmHg ? This report has been electronically signed by: Maicol Hart ? 10/04/2013 14:15:45 Images reviewed and interpretation verified [facility] Cardiac Ultrasound Laboratory Procedure Note Maicol Hart MD - 10/04/2013 Amended Report Procedure: Transthoracic Echocardiogram Patient: JORDON DE LUNA(Age): 1995(18) Med Rec#: [id number] Sex: F Site Loc: [facility] [place] Ht / Wt: 174(cm)/109(kg) Pt. Loc: Echo Lab BSA: 2.3 Study Date: 10/04/2013 Pt. Type: Outpatient Tape: Referring: hCau Felder ([id number]) Linderman Machine Operator: Kaylene Gimenez Linderman Machine Operator 2: Jan Rivera MS, [facility] Diagnosis: Cardiomyopathy (425.4) CPT Code(s): Echo Full (78655), Spectral Doppler (50212), Color Doppler (77274), Spectral Doppler (01017), Color Doppler (25465), Echo Full (01426), Indication(s): Congestive heart failure Rhythm: HR BP 118/68 SUMMARY: 1. Technically difficult study. 2. The [...] suggest that LV filling pressure has increased. FINDINGS: Left Ventricle The left ventricle is moderately dilated. Left ventricular wall thickness is normal. Global left ventricular systolic function is moderately reduced. The visually estimated left ventricular ejection fraction is 35-40%. The quantitative left ventricular ejection fraction by biplane Higginbotham's method is 35%. There is diffuse hypokinesis present. Doppler assessment is consistent with elevated left sided filling pressure. The basal anteroseptal, basal anterior, basal inferior, basal inferoseptal, mid anteroseptal, mid anterior, mid anterolateral, mid inferior, mid inferoseptal, apical septal, apical anterior, apical lateral and apical inferior wall segments are hypokinetic. A false chord is observed in the left ventricle. Left Atrium The left atrium is mildly dilated.by volume index of 32 ml/m2 Right Ventricle The right ventricle is mildly dilated. Right ventricular wall thickness is normal. Right ventricular global systolic function is probably normal. Pulmonary artery hypertension could not be assessed due to inadequate tricuspid regurgitation jet. The estimated right atrial pressure is 8 mmHg. Right Atrium The right atrium is normal in size. Aortic Valve The aortic valve is not well visualized. The aortic valve is probably tricuspid. There [...] inferior vena cava appears normal in size. Misc There is no hemodynamically significant valve disease. Technically difficult study. See remainder of report for additional findings. Two-dimensional echo, spectral Doppler and color Doppler performed. Wall Motion: Segment Name Rest Base-Anteroseptal Hypokinetic Base-Anterior Hypokinetic Base-Anterolateral Normal Base-Posterolateral Normal Base-Inferior Hypokinetic Base-Inferoseptal Hypokinetic Mid-Anteroseptal Hypokinetic Mid-Anterior Hypokinetic Mid-Anterolateral Hypokinetic Mid-Posterolateral Normal Mid-Inferior Hypokinetic Mid-Inferoseptal Hypokinetic [place]-Septal Hypokinetic [place]-Anterior Hypokinetic [place]-Lateral Hypokinetic [place]-Inferior Hypokinetic [place]-Tip Hypokinetic Chambers Value Units (Range) EF Bi-p Simp 35 % (55 to 80) IVSd 2D 1 cm LVIDd 2D 6 cm PWd 2D 0.9 cm LVIDs 2D 4.9 cm LVFS 2D 19 % LA area 20.9 cm2 (<21) RA area 16 cm2 (<18) Ao root 2.7 cm (2.1 to 3.6) Asc Ao 2.5 cm (2 to 3.5) Mitral Valve Value Units (Range) E peak 1.1 m/sec E/A ratio 3.2 ratio MVDT 144 msec E1 0.09 m/sec E/E1 12.2 ratio Tricuspid/Pulmonic Valves Value Units (Range) RAP 8 mmHg This report has been electronically signed by: Maicol Hart 10/04/2013 14:15:45 Images reviewed and interpretation verified [facility] Cardiac Ultrasound Laboratory Chau Felder MD ECHO ORDERABLES documented in this encounter Visit Diagnoses Diagnosis Heart failure, unspecified Myocarditis Myocarditis, unspecified documented in this encounter Care Teams Hoisting Engine Operator Relationship Specialty Start Date End Date Rustam Coppola MD [address] [address] PCP - General 06/30/13 05/30/18 documented as of this encounter
--- OUTSIDE RECORDS SUMMARY | 2024-01-03 13:14 | XMS_ITS | Encounter Summary ---
Author Organization [facility] [place] [address] Care Team Providers Care Water Quality Manager Name Role Phone David Coppola MD Primary Care Provider [phone] Reason for Visit * Reason Comments Congestive Heart Failure Encounter Details Date Type Department Care Team (Late st Contact Info) Description 09/19/2013 2:00 PM EDT Follow-Up Cardiology at [address] [phone] Dannielle Gallegos MD [facility] [address] High risk teen , second trimester (Primary Dx); Cardiomyopathy Discharge Disposition: Home Social History Tobacco [...] Sign Reading Time Taken Comments Blood Pressure 124/70 09/19/2013 1:30 PM EDT Pulse 120 09/19/2013 1:30 PM EDT Temperature - - Respiratory Rate - - Oxygen Saturation 97% 09/19/2013 1:30 PM EDT Inhaled Oxygen Concentration - - Weight 108 kg (238 lb) 09/19/2013 1:30 PM EDT Height 172.7 cm (5' 8) 09/19/2013 1:30 PM EDT Body Mass Index 36.19 09/19/2013 1:30 PM EDT Body Mass Index Percentile 98.24% 09/19/2013 1:3 0 PM EDT Growth Chart: [facility] (Girls, 2- 20 Years) documented in this encounter Progress Notes * Dannielle Gallegos MD - 09/19/2013 3:00 PM EDT Electrophysiology Attending Note I have interviewed and examined the patient and agree with the elements of the history, physical, lab database and assessment/plan as described by Dr. Millan in the note from today. She notes that she feels better now that school is over. She continues to have some shortness of breath with activity as well as fatigue. Tachycardia continues although it does not bother her. ECG reveals continued sinus tachycardia. She is doing reasonably well although I do not think she has much cardiovascular reserve. We plan follow-up in the very near future with echocardiography. Today I've asked her to get the planned basic metabolic panel and BNP. She has not also not followed up with OB and we will arrange this as well.. Dannielle Gallegos MD . * Chilango Millan MD - 09/19/2013 1:40 PM EDT CARDIOLOGY CLINIC Followup VISIT NOTE aMry Porras is a 18 y.o. female PCP: DAVID COPPOLA MD Cardiology Attending for today's visit: Reason for Visit: Follow up of non ischemic cardiomyopathy History of Present Illness: Mary Porras is a 18 y.o. female with h/o dilated cardiomyopathy in her childhood, with recovery to normal LV function by last echo in july/2013(LVEF 50%, no valvular abnormlities, who is 33 weeks presents for routine followup. Recently she had an EKG done at [facility], as she was found to have a rapid heart rate. She denied any symptoms of chest pain or worsening shortness of breath. Shewas told she was dehydrated and sent home. She admits to shortness of breath with activities like, Lifting any thing, bending down, standing and doing dishes makes her short of breath. She feels moretired than usual,. She has only minimal exertional shortness of breath. For example, she had mild shortness of breath when she walked to the office from the parking lot today and this has not worsened in the last couple of months. She does admit to occasional palpitations that were there even before her . Denies any exertional chest pain. No presyncopal or syncopal spells. No blurry vision or headaches. Denies orthopnea or PND. She sleeps on her side. Patient Active Problem List Diagnosis ??? Cardiomyopathy [...] age 4 months due to enterovirus infection Family History Problem Relation Age of Onset ??? Coronary Artery Disease ??? Cancer ??? Type 2 Diabetes History Social History ??? Marital Status: Single Spouse Name: N/A Number of Children: N/A ??? Years of Education: N/A Occupational History ??? Not on file. Social History Main Topics ??? Smoking status: Never Smoker ??? Smokeless tobacco: Not on file ??? Alcohol Use: No ??? Drug Use: No ??? Sexually Active: Not on file Other Topics Concern ??? Not on file Social History Narrative ??? No narrative on file Current Outpatient Prescriptions on File Prior to Visit Medication Sig Dispense Refill ??? metoprolol succinate (TOPROL XL) 25 mg 24 hr tablet Take 1 tablet by mouth daily. 90 tablet 3 ??? pediatric multivitamin with iron chewable tablet Take 1 tablet by mouth daily. No Known Allergies Filed Vitals: 09/19/13 1330 BP: 124/70 Pulse: 120 Wt: 107.96kg, 96% on RA Wt at her previous visit on 08/02/13: 97.1KG Physical Constitutional: well built, sitting up in chair in no apparent HENT:head normocephalic, no evidence of trauma, no nasal or aural discharge, no exudates in oral cavity, oral mucosa appears moist Eyes: EOMI, no icterus or pallor, Neck: supple, no thyromegaly or lymphadenopathy CVS: RRR, normal S1and S2, trace flow murmur heard at right sternal boarder, no gallop or rub, JVP not distended ,Distal pulses 2+ bilaterally Pulmonary: good air entry bilaterally,CTAB. GI: abdomen soft, NT, consistent with 33 weeks of , bowel sounds positive, no rebound or gaurding, no organomegaly Musculoskeletal: no joint swellings or deformities Extremities: no edema Skin: no rashes noted Neuro: no gross focal deficits on limited neuro exam Psych: mood and affect normal. Not anxious looking. Impression: Mary Porras is a 18 y.o. female with h/o dilated cardiomyopathy with recovery of her LV function, who is 33 weeks presents in followup. At present, she is well compensated from a cardiac stand point. Clinically not in heart failure. No recent events of concern. Her EKG today shows sinus tachycardia but no other high risk features. She does have very minimal cardiac reserve for potential decompensation in heart failure and needs close followup. Plan: 1.Close followup in 2 weeks with a repeat echocardiogram. Continue current dose of toprol Xl at 25mg daily. She will also need another echocardiogram closer to her delivery. It is also recommended that she has a normal vaginal delivery as opposed to caesarian section unless indicated for obstetric reasons. 2.Check BMP and BNP today. 3.Close follow up with OBGYN clinic: this was arranged by today(she has an appointment to be seen today). 4.She should have her planned delivery at [facility] [place] [place] were cardiology services including cardiac critical care is readily available if needed. chilango Millan MD Concrete Plant Laborer Pager([phone]) documented in this encounter Miscellaneous Notes * Miscellaneous - Provider, Scanning - 10/20/2013 9:21 AM EDT documented in this encounter Plan of Treatment Upcoming Encounters Date Type Department Care Team (Late st Contact Info) Description 01/27/2024 1:00 PM EST Appointment Non-[place] [address] Anton Márquez MD [facility] [place] [address] 01/27/2024 3:00 PM EST Office Visit Cardiology at [address] [phone] Anton Márquez MD [facility] [place] [address] Scheduled Orders Name Type Priority Associated Diagnoses Order Schedule Basic Metabolic Panel (non-fasting) Lab Routine High risk teen , second trimester Expected: 09/19/2013, Expires: 09/19/2014 pro-Brain Natriuretic Peptide Lab Routine High risk teen , second trimester Expected: 09/26/2013, Expires: 09/19/2014 Echocardiogram Transthoracic(Leb) Echocardiography Routine High risk teen , second trimester Cardiomyopathy One Time for 1 Occurrences starting 09/19/2013 until 09/19/2013 documented as of this encounter Procedures Procedure Name Priority Date/Time Associated Diagnosis Comments EKG 12-LEAD Routine 09/19/2013 1:40 PM EDT High risk teen , second trimester documented in this encounter Results * EKG 12 Lead (09/19/2013 1:40 PM EDT) Ventricular rate 113 BPM MUSE SYSTEM Atrial Rate 113 BPM MUSE SYSTEM P-R Interval 138 ms MUSE SYSTEM QRS Duration 80 ms MUSE SYSTEM Q-T Interval 338 ms MUSE SYSTEM QTC Calculated (Bezet) 463 ms MUSE SYSTEM Calculated P [place] 41 degrees MUSE SYSTEM Calculated R [place] 53 degrees MUSE SYSTEM Calculated T [place] 34 degrees MUSE SYSTEM INTERPRETATION Sinus tachycardia Possible Left atrial enlargement Borderline ECG When compared with ECG of 30-JUN-2013 14:57, No significant change was found Confirmed by MD Juanis, Ventura Patel ([id number]) on 09/19/2013 2:16:05 PM MUSE SYSTEM 09/19/2013 1:40 PM EDT 09/19/2013 2:16 PM EDT Dannielle Gallegos MD ECG ORDERABLES MUSE SYSTEM documented in this encounter Visit Diagnoses Diagnosis High risk teen , second trimester- Primary Cardiomyopathy Other primary cardiomyopathies documented in this encounter Care Teams Water Quality Manager Relationship Specialty Start Date End Date David Coppola MD [address] [place] [address] PCP - General 06/30/13 05/30/18 documented as of this encounter
--- OUTSIDE RECORDS SUMMARY | 2024-01-03 13:15 | XMS_ITS | Encounter Summary ---
[place] [address] Care Team Providers Care Recyclable Materials Collector Name Role Phone Rustam Coppola MD Primary Care Provider [phone] Encounter Details Date Type Department Care Team (Late st Contact Info) Description 07/17/2013 Notes Only Cardiology at [address] [phone] Dannielle Gallegos MD [facility] [place] [address] Social History Tobacco Use Types Packs/Day Years [...] as of this encounter Progress Notes * Dannielle Gallegos MD - 07/17/2013 1:11 PM EDT Problem list updated with unremarkable holter results. Letter sent to patient. PROBLEM LIST: 1. Nonischemic dilated cardiomyopathy ?? Presented age 4 months (1995) with CHF and severely dilated hypokinetic LV. 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 Treated with immunoglobulin ?? Slow improvement in sx and LV function over years with low normal LVEF, No CHF sx. Treated with vasotec, coumadin, b sunitha, Digoxin, lasix. Meds stopped age 7-8 y. ?? Echo 06/30/2013 (22 weeks ): LVEF 51% with diffuse hypokinesis and mild RV and LV dilitation (LVEDD 6 cm). Trace MR, TR. Est PAS 15. 2. No significant arrhythmias ?? Holter 06/30/2013: Sinus with average heart rate 101, range 78-153 beats per minute. One single APC and one single VPC. Chest discomfort/arm pain without change in heart rate or rhythm. 3. Allergies/ADR: none. documented in this encounter Plan of Treatment Upcoming Encounters Date Type Department Care Team (Late st Contact Info) Description 01/27/2024 1:00 PM EST Appointment [place] [address] Anton Márquez MD [facility] [place] [address] 01/27/2024 3:00 PM EST Office Visit Cardiology at [address] [phone] Anton Márquez MD [facility] [place] [address] documented as of this encounter Visit Diagnoses Not on filedocumented in this encounter Care Teams Recyclable Materials Collector Relationship Specialty Start Date End Date Rustam Coppola MD [address] [place] [address] PCP - General 06/30/13 05/30/18 documented as of this encounter
--- OUTSIDE RECORDS SUMMARY | 2024-01-03 13:15 | XMS_ITS | Encounter Summary ---
[place] [address] Care Team Providers Care Steam Turbine Operator Name Role Phone Rustam Coppola MD Primary Care Provider [phone] Reason for Visit * Reason Comments Other Encounter Details Date Type Department Care Team (Late Contact Info) Description 07/11/2013 Telephone [place]stetrics [place] [address] Janna Pak, RN Social History Tobacco Use Types Packs/Day [...] encounter Miscellaneous Notes * Telephone Encounter - Janan Pak, RN - 07/11/2013 2:14 PM EDT Arlene calls for clarification. She states that she has a note for Mary to stay on the first floor, but cardiology and this RN had said that she could ambulate. I have read Dr. Reyna's note for clarification, and it is unclear. Cardiology has put no activity restrictions on Mary. I have called Arlene, but she is unavailable. I have reassured Arlene that if she has a note from Dr. Reyna, that it is likely that this is fine, and that Arlene should remain on the first floor. I have offered my phone number for her to call me back for clarification. * Telephone Encounter - aJnna Pak RN - 07/11/2013 2:13 PM EDT Message copied by JANNA PAK on WedJul 11, 2013 2:13 PM ------ Message from: BUZZ CUI Created: WedJul 11, 2013 12:24 PM Arlene from the [employer] calling. She is trying to clarify if Mary has any restrictions in her . I guess there was a hand written note that her mom had from Dr. Reyna that said she needs to stay on the first floor, but when she talked with you, you had said there were none. Shedid talk with cardiology and they do not have any restrictions. Please call Arlene at [phone]. Maik documented in this encounter Plan of Treatment Upcoming Encounters Date Type Department Care Team (Late st Contact Info) Description 01/27/2024 1:00 PM EST Appointment Non-Invasive [place] [phone] Anton Márquez MD [facility] [place] [address] 01/27/2024 3:00 PM EST Office Visit Cardiology at [address] [phone] Anton Márquez MD [facility] [place] [address] documented as of this encounter Visit Diagnoses Not on filedocumented in this encounter Care Teams Steam Turbine Operator Relationship Specialty Start Date End Date Rustam Coppola MD [address] [address] PCP - General 06/30/13 05/30/18 documented as of this encounter
--- OUTSIDE RECORDS SUMMARY | 2024-01-03 13:15 | XMS_ITS | Encounter Summary ---
Author Organization [facility] [place] [address] Care Team Providers Care Printed Circuit Board Preassembler Name Role Phone Rustam Coppola MD Primary Care Provider [phone] Encounter Details Date Type Department Care Team (Latest Contact Info) Description 06/30/2013 12:06 PM EDT - 06/30/2013 11:59 PM EDT Hospital Encounter Non-[place] [phone] CARDIO, ECHO SIXTY MIN APPT None Chau Felder MD [facility] [place] [address] Discharge Disposition: Home Social History Tobacco Use Types Packs/Day Years Used Date Smoking Tobacco: Never Comments Yes Sex and Gender Information Value [...] 1:00 PM EST Appointment Non-[place] [address] Anton Márquez MD [facility] [place] [address] 01/27/2024 3:00 PM EST Office Visit Cardiology at [address] [phone] Anton Márquez MD [facility] [place] [address] documented as of this encounter Procedures Procedure Name Priority Date/Time Associated Diagnosis Comments ECHOCARDIOGRAM TRANSTHORACIC Routine 06/30/2013 1:38 PM EDT documented in this encounter Results * Echocardiogram Transthoracic(Leb) (06/30/2013 1:38 PM EDT) EF 52 HEARTLAB SYSTEM Anatomical Region Laterality Modality Other 06/30/2013 Narrative 06/30/2013 2:13 PM EDT Procedure: ? Transthoracic Echocardiogram Patient: ? JORDON oPlo ?(Age): 1995(18) Med Rec#: ?[id number] ? Sex: ?F ? Site Loc: ?[facility] ? Ht / Wt: ??173(cm)/88(kg) Pt. Loc: ? Echo Lab ? BSA: ?2.06 Study Date: ?06/30/2013 ? Pt. Type: Outpatient Tape: ? Referring: Rod Dukes Frame Welder Cargo Utility Trailers: Kaylene Gimenez Diagnosis:CPT Code(s): ??Echo Full (34810), ??Spectral Doppler (05375), Color Doppler (58649), Indication(s): ??Congestive heart failure Rhythm: HR ?BP ?121/79 ?? SUMMARY: 1. The left ventricle is [...] is no evidence of a pericardial effusion. FINDINGS: Study Quality ?Adequate Left Ventricle ?The left ventricle is mildly dilated. ?Left ventricular wall thickness is normal. ?Global left ventricular systolic function is mildly reduced. ?The quantitative left ventricular ejection fraction by biplane Higginbotham's method is 51%. ?There is diffuse hypokinesis present. ?Doppler assessment is consistent with normal left sided filling pressure. ?The ??basal anteroseptal, basal anterior, basal anterolateral, basal inferolateral, basal inferior, basal inferoseptal, mid anteroseptal, mid anterior, mid anterolateral, mid inferolateral, mid inferior, mid inferoseptal, apical septal, apical anterior, apical lateral and apical inferior wall segments are hypokinetic. Left Atrium ?The left atrium is normal in size. Right Ventricle ?The right ventricle is mildly dilated. ?Right ventricular wall thickness is normal. ?Right ventricular global systolic function is normal. ?The estimated pulmonary artery systolic pressure is 15 mmHg. ?The estimated right atrial pressure is [...] in structure and function. ?There is trace pulmonic regurgitation present. Pericardium ?The pericardium appears normal and there [...] ? Mid-Inferior ?Hypokinetic ? Mid-Inferoseptal ?Hypokinetic ? [place]-Septal ? Hypokinetic ? [place]-Anterior ? Hypokinetic ? [place]-Lateral ?Hypokinetic ? [place]-Inferior ? Hypokinetic ? [place]-Tip ?Hypokinetic ? Chambers ?Value ?Units (Range) ? EF ??Bi-p Simp ? 51 ? % (55 to 80) ? IVSd 2D ? 0.7 ?cm ? LVIDd 2D ?6 ?cm ? PWd 2D ?0.7 ?cm ? LVIDs 2D ?3.5 ?cm ? LVFS 2D ? 42 ? % ? LA area ? 20.7 ? cm2 (<21) ? RA area ? 16 ? cm2 (<18) ? Ao root ? 2.6 ?cm (2.1 to 3.6) ? Asc Ao ?2.5 ?cm (2 to 3.5) ? Mitral Valve ?Value ?Units (Range) ? E peak ?0.67 ? m/sec ? E/A ratio ? 1.1 ?ratio ? MVDT ?223 ?msec ? E1 ?0.08 ? m/sec ? E/E1 ?8.4 ?ratio ? Tricuspid/Pulmonic Valves ?Value ?Units (Range) ? TR peak loren ? 1.7 ?m/sec ? RAP ? 3 ?mmHg ? RVSP/PASP ? 15 ? mmHg ? This report has been electronically signed by: Rogelio Catalan M.D. ? 06/30/2013 14:13:07 Images reviewed and interpretation verified [facility] Cardiac Ultrasound Laboratory Procedure Note Rogelio Catalan MD - 06/30/2013 Procedure: Transthoracic Echocardiogram Patient: JORDON Polo (Age): 1995(18) Med Rec#: [id number] Sex: F Site Loc: [facility] Ht / Wt: 173(cm)/88(kg) Pt. Loc: Echo Lab BSA: 2.06 Study Date: 06/30/2013 Pt. Type: Outpatient Tape: Referring: Rod Dukes Frame Welder Cargo Utility Trailers: Kaylene Gimenez Diagnosis:CPT Code(s): Echo Full (91332), Spectral Doppler (20730), Color Doppler (45495), Indication(s): Congestive heart failure Rhythm: HR BP 121/79 SUMMARY: 1. The left [...] is no evidence of a pericardial effusion. FINDINGS: Study Quality Adequate Left Ventricle The left ventricle is mildly dilated. Left ventricular wall thickness is normal. Global left ventricular systolic function is mildly reduced. The quantitative left ventricular ejection fraction by biplane Higginbotham's method is 51%. There is diffuse hypokinesis present. Doppler assessment is consistent with normal left sided filling pressure. The basal anteroseptal, basal anterior, basal anterolateral, basal inferolateral, basal inferior, basal inferoseptal, mid anteroseptal, mid anterior, mid anterolateral, mid inferolateral, mid inferior, mid inferoseptal, apical septal, apical anterior, apical lateral and apical inferior wall segments are hypokinetic. Left Atrium The left atrium is normal in size. Right Ventricle The right ventricle is mildly dilated. Right ventricular wall thickness is normal. Right ventricular global systolic function is normal. The estimated pulmonary artery systolic pressure is 15 mmHg. The estimated right atrial pressure is [...] in structure and function. There is trace pulmonic regurgitation present. Pericardium The pericardium appears normal and there [...] Hypokinetic Mid-Posterolateral Hypokinetic Mid-Inferior Hypokinetic Mid-Inferoseptal Hypokinetic [place]-Septal Hypokinetic [place]-Anterior Hypokinetic [place]-Lateral Hypokinetic [place]-Inferior Hypokinetic [place]-Tip Hypokinetic Chambers Value Units (Range) EF Bi-p Simp 51 % (55 to 80) IVSd 2D 0.7 cm LVIDd 2D 6 cm PWd 2D 0.7 cm LVIDs 2D 3.5 cm LVFS 2D 42 % LA area 20.7 cm2 (<21) RA area 16 cm2 (<18) Ao root 2.6 cm (2.1 to 3.6) Asc Ao 2.5 cm (2 to 3.5) Mitral Valve Value Units (Range) E peak 0.67 m/sec E/A ratio 1.1 ratio MVDT 223 msec E1 0.08 m/sec E/E1 8.4 ratio Tricuspid/Pulmonic Valves Value Units (Range) TR peak loren 1.7 m/sec RAP 3 mmHg RVSP/PASP 15 mmHg This report has been electronically signed by: Ramya Catalan M.D. 06/30/2013 14:13:07 Images reviewed and interpretation verified [facility] Cardiac Ultrasound Laboratory Rod Dukes MD ECHO ORDERABLES documented in this encounter Visit Diagnoses Diagnosis state, incidental documented in this encounter Care Teams Printed Circuit Board Preassembler Relationship Specialty Start Date End Date Rustam Coppola MD [address] [address] PCP - General 06/30/13 05/30/18 documented as of this encounter
--- OUTSIDE RECORDS SUMMARY | 2024-01-03 13:15 | XMS_ITS | Encounter Summary ---
Author Organization [facility] [place] [address] Care Team Providers Care Law Enforcement Director Name Role Phone Rustam Coppola MD Primary Care Provider [phone] Encounter Details Date Type Department Care Team (Late st Contact Info) Description 06/30/2013 Orders Only Cardiology at [address] [phone] Pao Johnson LPN Myocarditis (Primary Dx) Social History Tobacco Use Types [...] 1:00 PM EST Appointment Non-Invasive [place] [address] Anton Márquez MD [facility] [place] [address] 01/27/2024 3:00 PM EST Office Visit Cardiology at [address] [address] Anton Márquez MD [facility] [place] [address] documented as of this encounter Procedures Procedure Name Priority Date/Time Associated Diagnosis Comments EKG 12-LEAD Routine 06/30/2013 2:57 PM EDT Myocarditis documented in this encounter Results * EKG 12 Lead (06/30/2013 2:57 PM EDT) Ventricular rate 102 BPM MUSE SYSTEM Atrial Rate 102 BPM MUSE SYSTEM P-R Interval 134 ms MUSE SYSTEM QRS Duration 80 ms MUSE SYSTEM Q-T Interval 352 ms MUSE SYSTEM QTC Calculated (Bezet) 458 ms MUSE SYSTEM Calculated P [place] 31 degrees MUSE SYSTEM Calculated R [place] 32 degrees MUSE SYSTEM Calculated T [place] 29 degrees MUSE SYSTEM INTERPRETATION Sinus tachycardia Otherwise normal ECG No previous ECGs available Confirmed by VICK MENCHACA M.D. ([id number]) on 06/30/2013 5:00:13 PM MUSE SYSTEM 06/30/2013 2:57 PM EDT 06/30/2013 5:00 PM EDT Dannielle Gallegos MD ECG ORDERABLES MUSE SYSTEM documented in this encounter Visit Diagnoses Diagnosis Myocarditis- Primary Myocarditis, unspecified documented in this encounter Care Teams Law Enforcement Director Relationship Specialty Start Date End Date Rustam Coppola MD [address] [place] [address] PCP - General 06/30/13 05/30/18 documented as of this encounter
--- OUTSIDE RECORDS SUMMARY | 2024-01-03 13:15 | XMS_ITS | Encounter Summary ---
[place] [address] Care Team Providers Care Grain Oilseed Or Pasture Farm Worker Name Role Phone Rustam Coppola MD Primary Care Provider [phone] Reason for Visit * Reason Onset Date Comments Other 07/03/2013 Echo Order Encounter Details Date Type Department Care Team (Late st Contact Info) Description 07/03/2013 Telephone Cardiology at [address] [phone] Dannielle Gallegos MD [facility] [place] [address] Other (Echo Order) Social History Tobacco Use Types Packs/Day Years Used Date Smoking Tobacco: Never Comments Yes Sex and Gender Information Value Date Recorded Sex Assigned at Female 11/26/2021 10:32 AM EDT Gender Identity Choose not to disclose 10:32 AM EDT Sexual Orientation Straight 11/26/2021 10 :32 AM EDT documented as of this encounter Miscellaneous Notes * Telephone Encounter - Enedina Kaminski - 07/03/2013 3:13 PM EDT Hi, Please sign the attached echo order. Manny, Radha documented in this encounter Plan of Treatment Upcoming Encounters Date Type Department Care Team (Late st Contact Info) Description 01/27/2024 1:00 PM EST Appointment Non-[place]vasive [place] [phone] Anton Márquez MD [facility] [place] [address] 01/27/2024 3:00 PM EST Office Visit Cardiology at [address] [phone] Anton Márquez MD [facility] [place] [address] documented as of this encounter Results * Echocardiogram Transthoracic(Leb) (08/02/2013 1:22 PM EDT) [employer] EF 50 HEARTSupersonic SYSTEM Anatomical Region Laterality Modality Other 08/04/2013 Narrative 08/04/2013 7:41 PM EDT Amended Report Procedure: ? Transthoracic Echocardiogram Patient: ? JORDON Polo ?(Age): 1995(18) Med Rec#: ?[id number] ? Sex: ?F ? Site Loc: ?[facility] [place] ? Ht / Wt: ??167(cm)/89(kg) Pt. Loc: ? Echo Lab ? BSA: ?2.03 Study Date: ?08/02/2013 ? Pt. Type: Outpatient Tape: ? Referring: Chau Felder ([id number]) Diagnosis: ??Cardiomyopathy (425.4) CPT Code(s): ??Spectral Doppler (03893), ??Color Doppler (27856), ??Echo Full (24077), Indication(s): ??Congestive heart failure Rhythm: Tachycardia HR [...] ? Mid-Inferior ?Hypokinetic ? Mid-Inferoseptal ?Hypokinetic ? [place]-Septal ? Hypokinetic ? [place]-Anterior ? Hypokinetic ? [place]-Lateral ?Hypokinetic ? [place]-Inferior ? Hypokinetic ? [place]-Tip ?Hypokinetic ? Chambers ?Value ?Units (Range) ? [...] 08/04/2013 19:40:37 Images reviewed and interpretation verified [facility] Cardiac Ultrasound Laboratory Procedure Note Rogelio Catalan MD - 08/04/2013 Amended Report Procedure: Transthoracic Echocardiogram Patient: JORDON DE LUNA(Age): 1995(18) Med Rec#: [id number] Sex: F Site Loc: [facility] [place] Ht / Wt: 167(cm)/89(kg) Pt. Loc: Echo Lab BSA: 2.03 Study Date: 08/02/2013 Pt. Type: Outpatient Tape: Referring: Chau Felder ([id number]) Diagnosis: Cardiomyopathy (425.4) CPT Code(s): Spectral Doppler (69864), Color Doppler (31470), Echo Full (04576), Indication(s): Congestive heart failure Rhythm: Tachycardia HR [...] Hypokinetic Mid-Posterolateral Hypokinetic Mid-Inferior Hypokinetic Mid-Inferoseptal Hypokinetic [place]-Septal Hypokinetic [place]-Anterior Hypokinetic [place]-Lateral Hypokinetic [place]-Inferior Hypokinetic [place]-Tip Hypokinetic Chambers Value Units (Range) IVSd 2D [...] 08/04/2013 19:40:37 Images reviewed and interpretation verified [facility] Cardiac Ultrasound Laboratory Dannielle Gallegos MD ECHO ORDERABLES documented in this encounter Visit Diagnoses Diagnosis LV dysfunction Heart disease, unspecified Cardiomyopathy Other primary cardiomyopathies LV dysfunction Heart disease, unspecified Cardiomyopathy Other primary cardiomyopathies documented in this encounter Care Teams Grain Oilseed Or Pasture Farm Worker Relationship Specialty Start Date End Date Rustam Coppola MD [address] [address] PCP - General 06/30/13 05/30/18 documented as of this encounter
--- OUTSIDE RECORDS SUMMARY | 2024-01-03 13:15 | XMS_ITS | Encounter Summary ---
Author Organization [facility] Address [facility] [place] [address] Care Team Providers Care Field Training Manager Name Role Phone Rustam Coppola MD Primary Care Provider [phone] Encounter Details Date Type Department Care Team (Latest Contact Info) Description 06/30/2013 11:51 AM EDT - 06/30/2013 11:59 PM EDT Hospital [place] [phone] Dannielle Gallegos MD [facility] [place] [address] Discharge Disposition: Home Social History Tobacco Use [...] 1:00 PM EST Appointment Non-[place] [phone] Anton Márquez MD [facility] [place] [address] 01/27/2024 3:00 PM EST Office Visit Cardiology at [address] [phone] Anton Márquez MD [facility] [place] [address] documented as of this encounter Visit Diagnoses Not on filedocumented in this encounter Care Teams Field Training Manager Relationship Specialty Start Date End Date Rustam Coppola MD [address] [place] [address] PCP - General 06/30/13 05/30/18 documented as of this encounter
--- OUTSIDE RECORDS SUMMARY | 2024-01-03 13:15 | XMS_ITS | Encounter Summary ---
[place] [address] Care Team Providers Care Tinner Automatic Name Role Phone Deep Chavez MD, Eder Primary Care Provider [phone] Reason for Visit * Reason Onset Date Comments Other 06/29/2013 LAB ORDERS Encounter Details Date Type Department Care Team (Late st Contact Info) Description 06/29/2013 Telephone Non-Invasive [place] [address] Dannielle Gallegos MD [facility] DR CARDIOLOGY DEPT. [place], [place] [phone] Other (LAB ORDERS) Social History Tobacco Use Types Packs/Day Years Used Date Smoking Tobacco: Never Assessed Sex and Gender Information Value Date Recorded Sex Assigned at Female 11/26/2021 10:32 AM EDT Gender Identity Choose not to disclose 10:32 AM EDT Sexual Orientation Straight 11/26/2021 10 :32 AM EDT documented as of this encounter Miscellaneous Notes * Telephone Encounter - Dori Fregoso - 06/29/2013 8:[address] Gallegos, Per our conversation, please sign the attached lab orders. This patient is scheduled to see you tomorrow. Thank You, Dori documented in this encounter Plan of Treatment Upcoming Encounters Date Type Department Care Team (Late st Contact Info) Description 01/27/2024 1:00 PM EST Appointment Non-[place]vasive [place] [address] Anton Márquez MD [facility] [place] [address] 01/27/2024 3:00 PM EST Office Visit Cardiology at [address] [phone] Anton Márquez MD [facility] [place] [address] documented as of this encounter Results * Uric acid (06/30/2013 11:56 AM EDT) Uric Acid 5.0 3.0 - 5.9 mg/dL [facility] [employer] Blood specimen (specimen) 06/30/2013 11:56 AM EDT 06/30/2013 12:10 PM EDT Narrative Resulting Agency Comment Spec In Lab Dannielle Gallegos MD CHEMISTRY ORDERABLE S [facility] * (ABNORMAL) pro-Brain Natriuretic Peptide (06/30/2013 11:56 AM EDT) NT-proBNP 342(H) <=125 pg/mL [facility] [employer] Blood specimen (specimen) 06/30/2013 11:56 AM EDT 06/30/2013 12:10 PM EDT Narrative Resulting Agency Comment Spec In Lab Dannielle Gallegos MD CHEMISTRY ORDERABLE [facility] * (ABNORMAL) Comprehensive metabolic panel (non-fasting) (06/30/2013 11:56 AM EDT) [facility] Glucose 90 60 - 199 mg/dL CERNER MILLENNIUM Comment:Diabetes: [...] - 10.5 mg/dL [facility] Protein, Total 7.0 6.4 - 8.3 gm/dL [facility] MILLEN[facility] Albumin 3.6 3.2 - 5.2 gm/dL [facility] MILLENNIUM Aspartate Aminotransferase 11 5 - 30 unit/L [facility] MILLENNIUM Alanine Aminotransferase 6 0 - 25 unit/L [facility] MILLENNIUM Alkaline Phosphatase 70 55 - 140 unit/L [facility] MILLENNIUM Bilirubin, [...] the following links into your internet browser. http://www.nkdep.nih.gov/lab-evaluation.shtml http://www.kidney.org/professionals/ Blood specimen (specimen) 06/30/2013 11:56 AM EDT 06/30/2013 12:10 PM EDT Narrative Resulting Agency Comment Spec In Lab Dannielle Gallegos MD CHEMISTRY ORDERABLE S [facility] * (ABNORMAL) CBC (with Diff) (06/30/2013 11:56 AM EDT) White Blood Cell 11.5 4.5 - 13.0 x10(3)/mc L [facility] MILLENNIUM Red Blood Cell 3.75(L) 4.10 - 5.10 x10(6)/mc L [facility] MILLENNIUM Hemoglobin 11.0(L) 12.0 - 16.0 gm/dL [facility] MILLENNIUM Hematocrit 33.4(L) 36.0 - 46.0 % CERNER MILLENNIUM Mean Cell Volume 89.1 76.0 - 98.0 fL [facility]ERN[facility] MILLENNIUM Mean Cell Hemoglobin 29.3 25.0 - 35.0 pg [facility]ERN[facility] MILLENNIUM Mean Cell Hemoglobin Concentration 32.9 32.0 - 36.5 gm/dL CERNER MILLENNIUM Platelet 287 145 - 370 x10(3)/mc L CERNER MILLENNIUM RDW Standard Deviation 43.9 35.0 - 46.0 fL CERNER MILLENNIUM RDW coefficient of variation 13.5 10.9 - 14.4 % CERNER MILLENNIUM Mean Platelet Volume 10.2 9.0 - 12.0 fL [facility] MILLENNIUM Blood specimen (specimen) 06/30/2013 11:56 AM EDT 06/30/2013 12:10 PM EDT Narrative Resulting Agency Comment Spec In Lab Dannielle Gallegos MD HEMATOLOGY ORDERABL ES [facility]ER MILLENNIUM documented in this encounter Visit Diagnoses Diagnosis Peripartum cardiomyopathy- Primary Peripartum cardiomyopathy, 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
--- OUTSIDE RECORDS SUMMARY | 2024-01-03 13:15 | XMS_ITS | Encounter Summary ---
[place] [address] Care Team Providers Care Medical Administrator Name Role Phone Deep Chavez MD, Eder Primary Care Provider [phone] Reason for Visit * Reason Onset Date Comments Other 06/14/2013 ECHO ORDER Encounter Details Date Type Department Care Team (Late st Contact Info) Description 06/14/2013 Telephone Cardiology at [address] [phone] Chau Felder MD [facility] [place] [address] Other (ECHO ORDER 06/30/13) Social History Tobacco Use Types Packs/Day Years Used Date Smoking Tobacco: Never Assessed Sex and Gender Information Value Date Recorded Sex Assigned at Female 11/26/2021 10:32 AM EDT Gender Identity Choose not to disclose 10:32 AM EDT Sexual Orientation Straight 11/26/2021 10 :32 AM EDT documented as of this encounter Miscellaneous Notes * Telephone Encounter - Leisa Major - 06/14/2013 10:56 AM EDT Please sign attached order for upcoming appointment. documented in this encounter Plan of Treatment Upcoming Encounters Date Type Department Care Team (Late st Contact Info) Description 01/27/2024 1:00 PM EST Appointment Non-Invasive [place] [address] Anton Márquez MD [facility] [address] [place], [place] [phone] 01/27/2024 3:00 PM EST Office Visit Cardiology at [address] [phone] Anton Márquez MD [facility] [address] documented as of this encounter Results * Echocardiogram Transthoracic(Leb) (10/04/2013 1:20 PM EDT) EF 35 HEARTLAB SYSTEM Anatomical Region Laterality Modality Other 10/04/2013 Narrative 10/04/2013 1:56 PM EDT Amended Report Procedure: ? Transthoracic Echocardiogram Patient: ? JORDON Polo ?(Age): 1995(18) Med Rec#: ?[id number] ? Sex: ?F ? Site Loc: ?[facility] [place] ? Ht / Wt: ??174(cm)/109(kg) Pt. Loc: ? Echo Lab ? BSA: ?2.3 Study Date: ?10/04/2013 ? Pt. Type: Outpatient Tape: ? Referring: Chau Felder ([id number]) Firepot Operator And Tender: Kaylene Gimenez Firepot Operator And Tender 2: Miguel Jan MS, RDCS Diagnosis: ??Cardiomyopathy (425.4) CPT Code(s): ??Echo Full (88070), ??Spectral Doppler (56740), ??Color Doppler (08034), ??Spectral Doppler (41912), ??Color Doppler (23228), Echo Full (96675), Indication(s): ??Congestive heart failure Rhythm: HR ?BP [...] ? Mid-Inferior ?Hypokinetic ? Mid-Inferoseptal ?Hypokinetic ? [place]-Septal ? Hypokinetic ? [place]-Anterior ? Hypokinetic ? [place]-Lateral ?Hypokinetic ? [place]-Inferior ? Hypokinetic ? [place]-Tip ?Hypokinetic ? Chambers ?Value ?Units (Range) ? [...] been electronically signed by: Maicol Hart. ? 10/04/2013 14:15:45 Images reviewed and interpretation verified [facility] Cardiac Ultrasound Laboratory Procedure Note Maicol Hart MD - 10/04/2013 Amended Report Procedure: Transthoracic Echocardiogram Patient: JORDON Polo (Age): 1995(18) Med Rec#: [id number] Sex: F Site Loc: [facility] Ht / Wt: 174(cm)/109(kg) Pt. Loc: Echo Lab BSA: 2.3 Study Date: 10/04/2013 Pt. Type: Outpatient Tape: Referring: Chau Felder ([id number]) Firepot Operator And Tender: Kaylene Gimenez Firepot Operator And Tender 2: Jan Rivera MS, RUST Diagnosis: Cardiomyopathy (425.4) CPT Code(s): Echo Full (45242), Spectral Doppler (45782), Color Doppler (57868), Spectral Doppler (43949), Color Doppler (14237), Echo Full (39921), Indication(s): Congestive heart failure Rhythm: HR BP [...] Hypokinetic Mid-Posterolateral Normal Mid-Inferior Hypokinetic Mid-Inferoseptal Hypokinetic [place]-Septal Hypokinetic [place]-Anterior Hypokinetic [place]-Lateral Hypokinetic [place]-Inferior Hypokinetic [place]-Tip Hypokinetic Chambers Value Units (Range) EF Bi-p [...] 10/04/2013 14:15:45 Images reviewed and interpretation verified [facility] Cardiac Ultrasound Laboratory Chau Felder MD ECHO ORDERABLES documented in this encounter Visit Diagnoses Diagnosis Heart failure, unspecified Myocarditis Myocarditis, unspecified Heart failure, unspecified Myocarditis Myocarditis, unspecified documented in this encounter Care Teams Medical Administrator Relationship Specialty Start Date End Date Eder Adame MD [address] [place] [address] [place] [address] PCP - General 02/04/10 06/29/13 documented as of this encounter
--- OUTSIDE RECORDS SUMMARY | 2024-01-03 13:15 | XMS_ITS | Encounter Summary ---
[place] [address] Care Team Providers Care Heating Engineer Name Role Phone Rustam Coppola MD Primary Care Provider [phone] Encounter Details Date Type Department Care Team (Late st Contact Info) Description 07/07/2013 Telephone Cardiology at [address] [phone] Sandy Ralph RN Social History Tobacco Use Types Packs/Day [...] encounter Miscellaneous Notes * Telephone Encounter - Sandy Ralph RN - 07/07/2013 2:25 PM EDT Itzel in [facility] called to ask: from a cardiac standpoint, does this patient has any activity or physical limitations. Her school has requested some guidance regarding this. Dr. Gallegos is not available this week. Will forward question to Dr. Felder who is due to patient early next month. documented in this encounter Plan of Treatment Upcoming Encounters Date Type Department Care Team (Late st Contact Info) Description 01/27/2024 1:00 PM EST Appointment Non-Invasive [place] [address] Anton Márquez MD [facility] [place] [address] 01/27/2024 3:00 PM EST Office Visit Cardiology at [address] [phone] Anton Márquez MD [facility] [place] [address] documented as of this encounter Visit Diagnoses Not on filedocumented in this encounter Care Teams Heating Engineer Relationship Specialty Start Date End Date Rustam Coppola MD [address] [place] [address] PCP - General 06/30/13 05/30/18 documented as of this encounter
--- OUTSIDE RECORDS SUMMARY | 2024-01-03 13:15 | XMS_ITS | Encounter Summary ---
[place] [address] Care Team Providers Care Partition Setter Name Role Phone Rustam Coppola MD Primary Care Provider [phone] Reason for Visit * Reason Comments Advice Only Encounter Details Date Type Department Care Team ([facility] Contact Info) Description 06/30/2013 2:00 PM EDT Office Visit Obstetrics [place] [phone] Thelma Desai MD [facility] [place] [address] Cardiomyopathy (Primary Dx) Discharge Disposition: Home Social History Tobacco Use [...] Sign Reading Time Taken Comments Blood Pressure 116/64 06/30/2013 2:00 PM EDT Pulse - - Temperature - - Respiratory Rate - - Oxygen Saturation - - Inhaled Oxygen Concentration - - Weight 89.9 kg (198 lb 1.6 oz) 06/30/2013 2:00 P M EDT Height - - Body Mass Index - - documented in this encounter Progress Notes * Thelma Desai MD - 07/04/2013 10:53 AM EDT Diagnosis/Maternal Medicine Consult Note Mary Porras is a 18 y.o. year old female who is at 22 6/7 weeks EDC 10/29/2013 by 14 weekultrasound. The was unplanned but she chose to continue when offered by her mother to terminate. She is seen in consultation at the request of Leon Hoang MD for evaluation of persistent maternal cardiac dysfunction. She was seen today for maternal- medicine consultation. 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 She required lasix, captopril, digoxin and coumadin until age 8 years. She has not been on medications since age 8 years as her cardiac performance improved. She has no physical restrictions but has not participated in sports. No h/o of arrhythmias or syncope. She reports recent chest pain and fluttering heart related to stressors in school. She currently walks. She denies PND, swelling, or orthopnea. She can climb stairs but is finding this more difficultduring school and classroom changes. Review of Systems Constitutional:feels well Movement: normal Contractions: none Leaking: None Bleeding: None There are no active problems to display for this patient. Past Medical History Diagnosis Date ??? 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 Central venous catheter Family History Problem Relation Age of Onset ??? Coronary Artery Disease Social History Occupational History ??? Not on file. Social History Main Topics ??? Smoking status: Never Smoker ??? Smokeless tobacco: Not on file ??? Alcohol Use: No ??? Drug Use: No ??? Sexually Active: Not on file OB History Grav Para Term Abortions TAB SAB Ect Mult Living 1 # Outc Date GA Lbr Elvis/2nd Wgt Sex Del Anes PTL Lv 1 CUR Current Outpatient Prescriptions Medication Sig Dispense Refill ??? pediatric multivitamin with iron chewable tablet Take 1 tablet by mouth daily. ??? metoprolol succinate (TOPROL XL) 25 mg 24 hr tablet Take 1 tablet by mouth daily. 30 tablet 12 No Known Allergies Echocardiogram: SUMMARY: 1. The left ventricle is mildly [...] is no evidence of a pericardial effusion. Physical Exam BP 116/64 Wt 89.858 kg (198 lb 1.6 oz) General: alert, well appearing, in no apparent distress HEENT: normocephalic, atraumatic CV RRR no MRG Abdomen: Soft, nontender, gravid, S=D, FHR heard Extremities: no redness or tenderness in the calves or thighs, no edema Neurologic:alert, oriented, normal speech, no focal findings or movement disorder noted Psychiatric: Affect is Appropriate. Assessment and Recommendations: 18 y.o. year old female at 22 6/7 weeks gestation, referred for counseling regarding maternal cardiac dysfunction. I spent 45 minutes in face to face time with the patient of which 100% was in direct counseling, and a total of 30 minutes in patient care reviewing records and discussing her with other consultants. We reviewed the physiologic changes of and the increase cardiac work required in the third trimester and immediately . These changes may increase her risk of congestive heart failure given her reduced LVEF of 51%. She will require close surveillance both clinically and with serial echocardiograms and may need diuretics or other cardiac medications as well as inpatient care. She is at risk of dysrhythmias and congestive heart failure. The is at risk of premature delivery due to the increased risk decompensation of maternal cardiac status. She should be delivered in a tertiary care center and vaginal delivery is preferred. She may require delivery in a cardiac care unit or labor floor telemetry bed and may need an assisted second stage. I appreciate the opportunity to be involved in this patients care, and am available if further questions should arise. THELMA DESAI MD 07/04/2013 Cc: Leon Hoang MD [address] [place] [address] , with copy of ultrasound report documented in this encounter Miscellaneous Notes * Miscellaneous - Provider, Scanning - 07/17/2013 10:17 AM EDT documented in this encounter Plan of Treatment Upcoming Encounters Date Type Department Care Team (Late st Contact Info) Description 01/27/2024 1:00 PM EST Appointment Non-Invasive [place] [address] Anton Márquez MD [facility] [place] [address] 01/27/2024 3:00 PM EST Office Visit Cardiology at [address] [phone] Anton Márquez MD [facility] [place] [address] documented as of this encounter Visit Diagnoses Diagnosis Cardiomyopathy- Primary Other primary cardiomyopathies documented in this encounter Care Teams Partition Setter Relationship Specialty Start Date End Date Rustam Coppola MD [address] [place] [address] PCP - General 06/30/13 05/30/18 documented as of this encounter
--- OUTSIDE RECORDS SUMMARY | 2024-01-03 13:15 | XMS_ITS | Encounter Summary ---
[facility] [place] [address] Care Team Providers Care Gear Generator Set Up Operator Name Role Phone Rsutam Coppola MD Primary Care Provider [phone] Encounter Details Date Type Department Care Team (Late st Contact Info) Description 08/02/2013 2:00 PM EDT Follow-Up Cardiology at [address] [phone] Dannielle Gallegos MD [facility] [place] [address] Cardiomyopathy; High risk teen , second trimester Discharge Disposition: Home Social History Tobacco [...] Sign Reading Time Taken Comments Blood Pressure 108/64 08/02/2013 1:21 PM EDT Pulse 92 08/02/2013 1:21 PM EDT Temperature - - Respiratory Rate - - Oxygen Saturation 99% 08/02/2013 1:2 1 PM EDT at rest, room air Inhaled Oxygen Concentration - - Weight 95.7 kg (211 lb) 08/02/2013 1:21 PM EDT Height 174 cm (5' 8.5) 08/02/2013 1:21 PM EDT Body Mass Index 31.62 08/02/2013 1:21 PM EDT Body Mass Index Percentile 96.12% 08/02 1:21 PM EDT Growth Chart: CDC (Girls, 2- 20 Years) documented in this encounter Progress Notes * [place] - 08/02/2013 1:18 PM EDT Cardiology Clinic Note Patient Name: Mary Porras This is a 18-year-old woman with a [...] initiated at this visit for cardio protection any vaginal delivery was recommended. For the C.M., she notes that she was treated at [facility]. Lives in [facility] her OB care at [place], [place] Echo performed June 30 when she was 22 weeks showed EF 51% with diffuse hypokinesis and mild RV and LV dilatation, trace MR, trace TR an estimated PASP of 15 mmHg. TTE 08/02 c/w above, and EF has increased to 54%. Holter from June 30 showed sinus but average heart rate of 101, one single APC in one single VPC ECG reviewed: sinus tachycardia, QTC 458, QRS 80 Labs noticeable for a BNP 342, sodium of 139, creatinine 0.56 Social history: notable for marijuana smoking until five months before . No history of alcohol, cocaine or heroin abuse. Father is not involved. Past Surgical History Procedure Date ??? Central venous catheter Meds: Current Outpatient Prescriptions on File Prior to Visit Medication Sig Dispense Refill ??? pediatric multivitamin with iron chewable tablet Take 1 tablet by mouth daily. ??? metoprolol succinate (TOPROL XL) 25 mg 24 hr tablet Take 1 tablet by mouth daily. 30 tablet 12 History Social History ??? Marital Status: Single [...] History Narrative ??? No narrative on file Family History Problem Relation Age of Onset ??? Coronary Artery Disease ??? Cancer ??? Type 2 Diabetes No Known Allergies 24 HR Review of Systems: Constitutional: No fevers; chills or malaise ENT: Notes facial flushing and nosebleeds every day Neck: No neck pain Cardiovascular: See HPI Respiratory: See HPI GI/Abdomen: No Diarrhea; No Constipation; No Nausea/Vomiting Extremities: No swelling; No calf tenderness; no bleeding Neuro: No headaches; No sensory deficits Vitals: Last value Range last 24 hrs Temperature Heart Rate 92 ; 84 standing Heart Rate: -- Blood Pressure 108/62; 90/60 standing BP: ()/() Respiratory Rate Resp: -- SpO2 99% RA SpO2: -- Weight: 95 kg Examination: Gen: Pleasant, NAD, EOMI HEENT: Head AT/NC; JVP < 7, no HJ reflex Cor: RRR s1 s2 no mrg , no S3 Pulm: Lungs CTAB Abd: s,nt, no HSM Consistent with 27 weeks . Extremities: No KATHERINE ASSESSMENT/PLAN: 18 yo woman 27 weeks gestation and with a remote hx of viral myocarditis sp medical mgmt up until age 8 at [facility]. In return visit today she mainly notes fatigue with initiation of beta-blockade, and occasional dyspnea walking up a flight of stairs. At this point in her it is difficult to distinguish these sx's from the physiologic changes that accompany normal (diaphragmatic pressure limiting lung volumes, increased fluid retention leading to edema) but we will nevertheless take caution with her and monitor her sx's carefully. She appears to be a NYHA classification II patient based on symptoms. TTE today reviewed: LV EF up to 54% from 51% with mildly dilated RV and LV, no valvular dysfunction. Do not believe her facial flushing is due to beta-blockade, although her fatigue may be from a heart-rate lowering effect. For further cardioprotection in the pre- state we will continue her on metoprolol succinate 25 mg daily ( class C medication). No fulminant signs of volume overload on her exam today - JVP flat, no KATHERINE, no S3 - therefore no role for diuresis with lasix, however today we will check a BNP as a precaution and consider diuresis if markedly elevated. A vaginal delivery continues to be recommended, with caesarian section reserved for OB considerations Should she have any worsening of heart failure, consideration for labor and delivery in the coronary care unit is recommended. Should she develop significant heart failure symptoms, diuretic such as hydrochlorothiazide or Lasix and vasodilators such as hydralazine or nitrates may be considered. Will plan to follow-up with her in 8 weeks, with a heart failure visit in 4 weeks. Approximately 27 minutes spent with patient in [id number] time. Pt seen and discussed with Dr. Rosy Bobo M.D. [employer] Supervisor Pager: [phone] Electrophysiology Attending Note I have interviewed and examined the patient and agree with the elements of the history, physical, lab database and assessment/plan as described by Dr. Bobo in the note from today. She continues to do reasonably well: fatigue and a slight increase in CAMPUZANO (dyspnea with a large flight of stairs, but ok at home). I suspect sx are more related to than cardiac pathology, but will check bnp and BMP. Follow up with CHF service in 1 month and me/OB clinic in 2 months.. Dannielle Gallegos MD . documented in this encounter Miscellaneous Notes * Miscellaneous - Provider, Scanning - 08/10/2013 3:02 PM EDT documented in this encounter Plan of Treatment Upcoming Encounters Date Type Department Care Team (Late st Contact Info) Description 01/27/2024 1:00 PM EST Appointment Non-[place] [address] Anton Márquez MD [facility] [place] [address] 01/27/2024 3:00 PM EST Office Visit Cardiology at [address] [phone] Anton Márquez MD [facility] [place] [address] Scheduled Orders Name Type Priority Associated Diagnoses Orde r Schedule pro-Brain Natriuretic Peptide Lab Routine Cardiomyopathy Expected: 08/02/2013, Expires: 08/02/2014 documented as of this encounter Visit Diagnoses Diagnosis Cardiomyopathy Other primary cardiomyopathies High risk teen , second trimester documented in this encounter Care Teams Gear Generator Set Up Operator Relationship Specialty Start Date End Date Rustam Coppola MD [address] [place] [id number] PCP - General 06/30/13 05/30/18 documented as of this encounter
--- OUTSIDE RECORDS SUMMARY | 2024-01-03 13:15 | XMS_ITS | Encounter Summary ---
[place] [address] Care Team Providers Care Engineer Rf Deployment Name Role Phone Rustam Coppola MD Primary Care Provider [phone] Encounter Details Date Type Department Care Team (Latest Contact Info) Description 06/30/2013 4:33 PM EDT - 06/30/2013 11:59 PM EDT Hospital Encounter [place] [phone] SHEET WRITER, CM Cardiomyopathy; complicated by cardiac condition, antepartum, unspecified trimester Discharge Disposition: Home Social History Tobacco [...] 1:00 PM EST Appointment [place] [address] Anton Márquez MD [facility] [place] [address] 01/27/2024 3:00 PM EST Office Visit Cardiology at [address] [phone] Anton Márquez MD [facility] [place] [address] documented as of this encounter Procedures Procedure Name Priority Date/Time Associated Diagnosis Comments HOLTER MONITOR 48 HOUR Routine 06/30/2013 4:43 PM EDT Cardiomyopathy complicated by cardiac condition, antepartum, unspecified trimester documented in this encounter Results * Holter Monitor 48hr (06/30/2013 4:43 PM EDT) Anatomical Region Laterality Modality Other Narrative 07/17/2013 1:13 PM EDT HOLTER MONITOR Hookup Date: 06/30/2013 Monitor duration: 29 hours Predominant rhythm: Sinus Average heart rate: 101 beats per minute Minimum sinus rate: 78 beats per minute at 2:17 AM Maximum sinus rate: 153 beats per minute at 3:52 PM Atrial ectopy: Very rare (less than 0.1%) 1 single APC, 0 APC couplets, 0 APC triplets No runs of SVT: Ventricular ectopy: Very rare (less than 0.1%) 1 single VPCs, 0 VPC couplets, 0 VPC triplets No runs of ventricular tachycardia: Bradycardia: There were no significant pauses. Symptoms: chest and arm pain were reported without change in heart rate or rhythm. Procedure Note Dannielle Gallegos MD - 07/17/2013 HOLTER MONITOR Hookup Date: 06/30/2013 Monitor duration: 29 hours Predominant rhythm: Sinus Average heart rate: 101 beats per minute Minimum sinus rate: 78 beats per minute at 2:17 AM Maximum sinus rate: 153 beats per minute at 3:52 PM Atrial ectopy: Very rare (less than 0.1%) 1 single APC, 0 APC couplets, 0 APC triplets No runs of SVT: Ventricular ectopy: Very rare (less than 0.1%) 1 single VPCs, 0 VPC couplets, 0 VPC triplets No runs of ventricular tachycardia: Bradycardia: There were no significant pauses. Symptoms: chest and arm pain were reported without change in heart rate orrhythm. Dannielle Gallegos MD CARDIAC SERVICES OR DERABLES documented in this encounter Visit Diagnoses Diagnosis Cardiomyopathy Other primary cardiomyopathies complicated by cardiac condition, antepartum, unspecified trimester documented in this encounter Care Teams Engineer Rf Deployment Relationship Specialty Start Date End Date Rustam Coppola MD [address] [address] PCP - General 06/30/13 05/30/18 documented as of this encounter
--- OUTSIDE RECORDS SUMMARY | 2024-01-03 13:15 | XMS_ITS | Encounter Summary ---
Author [facility] [place] [address] Care Team Providers Care Meat And Poultry Inspector Name Role Phone Rustam oCppola MD Primary Care Provider [phone] Encounter Details Date Type Department Care Team (Late st Contact Info) Description 06/30/2013 2:40 PM EDT Office Visit Cardiology at [address] [phone] Dannielle Gallegos MD [facility] [place] [address] Peripartum cardiomyopathy; Cardiomyopathy; complicated by cardiac condition, antepartum, unspecified [...] Time Taken Comments Blood Pressure 116/64 06/30/2013 2:50 PM EDT Pulse 105 06/30/2013 2:50 PM EDT Temperature - - Respiratory Rate 16 06/30/2013 2:50 PM EDT Oxygen Saturation 99% 06/30/2013 2:50 PM EDT Inhaled Oxygen Concentration - - Weight 89.9 kg (198 lb 1.6 oz) 06/30/2013 2:50 P M EDT Height 174 cm (5' 8.5) 06/30/2013 2:50 PM EDT Body Mass Index 29.68 06/30/2013 2:50 PM EDT Body Mass Index Percentile 95.04% 06/30/2013 2:5 0 PM EDT Growth Chart: [facility] (Girls, 2- 20 Years) documented in this encounter Patient Instructions * Patient Instructions* Dannielle Gallegos MD - 06/30/2013 3:52 PM EDT 1. Start Toprol XL 25 mg daily. Prescription sent to [facility] 2. Call for worsening shortness of breath, lightheadedness, exercise intolerance, swelling, and anyfainting or near fainting 3. Holter monitor for 48 hours, starting today 4. Follow up in 3-[address] Felder (CHF specialist) 5. Thyroid test today (blood work). We will try to add onto already drawn blood sample. 6. Activity: Given CHF symptoms, would try to limit stairs and long duration days. Half day for school and classes on one floor as much as possible is recommended. documented in this encounter Progress Notes * Dannielle Gallegos MD - 06/30/2013 3:06 PM EDT CARDIOVASCULAR AND REPRODUCTIVE MEDICINE CONSULT NOTE PROBLEM LIST: 1. Nonischemic dilated cardiomyopathy ?? [...] Trace MR, TR. Est PAS 15. 2. Allergies/ADR: none. Mary Porras is a 18 y.o. female who is seen at the request of Dr. Hoang for an opinion regarding: Cardiomyopathy and . History is obtained primarily through a phone conversation with the mother today at the time of thevisit. There are limited records available. The patient [...] isno family history of sudden cardiac . She has had no orthopnea, PND, lightheadedness, LOC, CP, palpitations, or edema. PAST MEDICAL HISTORY: As above FAMILY HISTORY: Ill-defined family history of in her maternal grandfather. No family history of sudden . No family history on file. SOCIAL HISTORY: Smoke marijuana and until 5 months before she became . Denies alcohol, cocaine, heroin. She is planning on nursing the baby. The father of the baby is not involved. She is here today with her grandmother History Social History ??? Marital Status: Single Spouse Name: N/A Number of Children: N/A ??? Years of Education: N/A Occupational History ??? Not on file. Social History Main Topics ??? Smoking status: Never Smoker ??? Smokeless tobacco: Not on file ??? Alcohol Use: Not on file ??? Drug Use: Not on file ??? Sexually Active: Not on file Other Topics Concern ??? Not on file Social History Narrative ??? No narrative on file REVIEW OF SYSTEMS: Extensive ROS was performed and was noncontributory. ALLERGIES: No Known Allergies MEDICATIONS: Outpatient Encounter Prescriptions as of 06/30/2013 Medication Sig Dispense Refill ??? pediatric multivitamin with iron chewable tablet Take 1 tablet by mouth daily. PHYSICAL EXAMINATION: Filed Vitals: 06/30/13 1450 BP: 116/64 Pulse: 105 Resp: 16 Height: 174 cm (5' 8.5) Weight: 89.858 kg (198 lb 1.6 oz) SpO2: 99% General: Well appearing, normal affect. Skin: Warm and dry Head/Eyes: Pupils equal. ENT: Benign. Mucosal membranes moist. Neck: Jugular venous pressure normal. Lungs: Clear to auscultation. Cor: Regular rhythm, but tachycardic. Normal S1 and S2. No murmurs, gallops, rubs, thrills, lifts, heaves. Abdomen: Normal bowel sounds. Consistent with 22 weeks . Ext: No edema Neuro: Grossly nonfocal. LABORATORIES: Electrocardiogram: Sinus tachycardia at 102 beats per minute. Normal intervals. Normal tracing.. Noevidence of Brugada, ARVD, LVH, LQTS, pre-excitation. Tracing personally visualized by me. Recent Results (from the past 24 hour(s)) URIC ACID Component Value Range Uric Acid 5.0 3.0 - 5.9 mg/dL CBC (WITH DIFF) Component Value Range WBC 11.5 4.5 - 13.0 x10(3)/mcL RBC 3.75 (*) 4.10 - 5.10 x10(6)/mcL Hemoglobin 11.0 (*) 12.0 - 16.0 gm/dL Hematocrit 33.4 (*) 36.0 - 46.0 % MCV 89.1 76.0 - 98.0 fL MCH 29.3 25.0 - 35.0 pg MCHC 32.9 32.0 - 36.5 gm/dL Platelets 287 145 - 370 x10(3)/mcL RDWSD 43.9 35.0 - 46.0 fL RDWCV 13.5 10.9 - 14.4 % MPV 10.2 9.0 - 12.0 fL COMPREHENSIVE METABOLIC PANEL (NON-FASTING) Component Value Range Glucose Lvl 90 60 - 199 mg/dL BUN 7 (*) 10 - 20 mg/dL Creatinine 0.56 0.20 - 0.70 mg/dL Sodium 139 135 - 145 mmol/L Potassium 3.9 3.5 - 5.0 mmol/L Chloride 102 98 - 107 mmol/L CO2 25 22 - 31 mmol/L Anion Gap 12 5 - 15 mmol/L Calcium 9.7 8.5 - 10.5 mg/dL Total Protein 7.0 6.4 - 8.3 gm/dL Albumin 3.6 3.2 - 5.2 gm/dL AST 11 5 - 30 unit/L ALT 6 0 - 25 unit/L Alk Phos 70 55 - 140 unit/L Total Bilirubin 0.1 <=1.0 mg/dL Bili, Direct <0.1 0.0 - 0.3 mg/dL Estimated GFR See note >=60 PRO-BRAIN NATRIURETIC PEPTIDE Component Value Range ProBNP 342 (*) <=125 pg/mL DIFFERENTIAL, AUTOMATED Component Value Range Neutrophils % 69.5 37.0 - 77.0 % Neutr Abs (ANC) 8.01 (*) 1.50 - 8.00 x10(3)/mcL Lymphocytes % 20.6 20.0 - 50.0 % Lymphocytes Abs 2.4 1.2 - 5.2 x10(3)/mcL Monocytes % 6.4 2.0 - 12.0 % Monocyte Abs 0.7 0.2 - 1.0 x10(3)/mcL Eosinophils % 2.2 0.0 - 7.0 % Eosinophils Abs 0.2 0.0 - 0.5 x10(3)/mcL Basophils % 0.2 0.0 - 2.0 % Basophils Abs 0.0 0.0 - 0.2 x10(3)/mcL Immature Gran % 1.10 (*) 0.00 - 0.66 % Octavia Gran Abs 0.13 (*) 0.00 - 0.05 x10(3)/mcL IMPRESSION: History of myocarditis as an infant with significant improvement though not full normalization of left ventricular function. She has not had recent cardiac followup soon we do not have a pre-echocardiogram for comparison however she does have mild decrease in left ventricular systolic function with left ventricular dilatation. Elevated pro BMP is consistent with some hemodynamic compromise although she is remarkably compensated. Her symptoms are suggestive of class II congestive symptoms with dyspnea on stairs which is worsened with this . She has heart fluttering but no clear history of dysrhythmias and denies significant lightheadedness or fainting. Her left ventricular systolic function is borderline and I doubt she has significant myocardial reserve. Her volume will continue to increase slightly in towards the end of she will have some reversal of the vasodilatation and therefore her risk for worsening heart failure continues. In addition, she is at significant risk [...] her sometime ago and the patient declined. I have recommended initiation of metoprolol for cardioprotection. At this time she is not significantly congested or volume overloaded and therefore I do not think diuretics or vasodilators are needed. She was cautioned to contact us should she have any increased difficulty with breathing, swelling, exercise intolerance, lightheadedness, and certainly any fainting. Will plan followup in 3 weeks or so with the heart failure team and then with me in 6 or 8 weeks with another echocardiogram (at that time she will be approaching 30-32 weeks.) A vaginal delivery is recommended reserving section for obstetric indications. The specifics regarding labor and delivery will be further defined as we get closer and see how she does. Should she have any worsening of heart failure considerationfor labor and delivery in the coronary care unit will likely be recommended. Should she develop significant heart failure symptoms, diuretic such as hydrochlorothiazide or Lasix and vasodilators suchas hydralazine or nitrates may be considered. PLAN: 1. next cardiology followup with Dr. Kono/Heart Failure team in approximately 3 weeks 2. Followup with me in 6-8 weeks with echocardiogram 3. Begin Toprol-XL 25 mg a day and increase as tolerated (will review at CHF clinic in 3 weeks) cc: Rustam Coppola MD William B Peck, MD Alan Kono MD Virginia Beggs APRN Michele Russell MD documented in this encounter Plan of Treatment Upcoming Encounters Date Type Department Care Team (Late st Contact Info) Description 01/27/2024 1:00 PM EST Appointment Non-[place] [address] Anton Márquez MD [facility] [place] [address] 01/27/2024 3:00 PM EST Office Visit Cardiology at [address] [phone] Anton Márquez MD [facility] [place] [address] documented as of this encounter Procedures Procedure Name Priority Date/Time Associated Diagnosis Comments DIFFERENTIAL, AUTOMATED Routine 06/30/2013 11:56 AM EDT CBC (WITH DIFF) Routine 06/30/2013 11:56 AM EDT Peripartum cardiomyopathy URIC ACID Routine 06/30/2013 11:56 AM EDT Peripartum cardiomyopathy TSH Routine 06/30/2013 11:56 AM EDT PRO-BRAIN NATRIURETIC PEPTIDE Routine 06/30/2013 11:56 AM EDT Peripartum cardiomyopathy COMPREHENSIVE METABOLIC PANEL Routine 06/30/2013 11:56 AM EDT Peripartum cardiomyopathy documented in this encounter Results * Holter [...] Dannielle Gallegos MD CARDIAC SERVICES OR DERABLES * TSH (06/30/2013 11:56 AM EDT) Thyroid Stimulating Hormone 1.23 0.27 - 4.20 mcIU/mL DARIUS KEITH Blood specimen (specimen) 06/30/2013 11:56 AM EDT 06/30/2013 12:18 PM EDT Narrative Resulting Agency Comment Spec In Lab Dannielle Gallegos MD CHEMISTRY ORDERABLE S DARIUS MONTENEGROENNIUM * (ABNORMAL) Differential, Automated (06/30/2013 11:56 AM EDT) Neutrophil % 69.5 37.0 - 77.0 % CERNER MILLENNIUM Neutrophil Absolute 8.01(H) 1.50 - 8.00 x10(3)/mc L CERNER MILLENNIUM Lymph % 20.6 20.0 - 50.0 % CERNER MILLENNIUM Lymphocytes Abs 2.4 1.2 - 5.2 x10(3)/mc L CERNER MILLENNIUM Monocyte % 6.4 2.0 - 12.0 % CERNER MILLENNIUM Monocyte Abs 0.7 0.2 - 1.0 x10(3)/mc L CERNER MILLENNIUM Eos % 2.2 0.0 - 7.0 % CERNER MILLENNIUM Eosinophils Abs 0.2 0.0 - 0.5 x10(3)/mc L CERNER MILLENNIUM Basophil % 0.2 0.0 - 2.0 % CERNER MILLENNIUM Baso Absolute 0.0 0.0 - 0.2 x10(3)/mc L CERNER MILLENNIUM Immature Gran % 1.10(H) 0.00 - 0.66 % CERNER MILLENNIUM Comment: Immature granulocytes(IG's)percentage and absolute count will include metamyelocytes, myelocytes, and promyelocytes. Blood smears from CBCs yielding IG's will be scanned manually for concordance. If this scan disagrees with the automated IG or if promyelocytes are noted, a manual differential will be performed. Immature Gran Absolute 0.13(H) 0.00 - 0.05 x10(3)/mc L CERNER MILLENNIUM Blood specimen (specimen) 06/30/2013 11:56 AM EDT 06/30/2013 12:10 PM EDT Dannielle Gallegos MD HEMATOLOGY ORDERABL ES DARIUS WEINBERGIUM * (ABNORMAL) pro-Brain Natriuretic Peptide (06/30/2013 11:56 AM EDT) NT-proBNP 342(H) <=125 pg/mL CERNER MILLENNIUM Blood specimen (specimen) 06/30/2013 11:56 AM EDT 06/30/2013 12:10 PM EDT Narrative Resulting Agency Comment Spec In Lab Dannielle Gallegos MD [facility]MISTRY ORDERABLE S [facility] * (ABNORMAL) Comprehensive metabolic panel (non-fasting) (06/30/2013 11:56 AM EDT) Glucose 90 60 - 199 mg/dL CERNER MILLENNIUM Comment:Diabetes: >=200 mg/d L plus symptoms Blood Urea Nitrogen 7(L) 10 - 20 mg/dL CERNER MILLENNIUM Creatinine 0.56 0.20 - 0.70 mg/dL CERNER MILLENNIUM Comment: Please note that the pediatric reference intervals supplied above were not validated at [facility]. Results from pediatric patients should be interpreted [...] Platelet Volume 10.2 9.0 - 12.0 fL DARIUS KEITH Blood specimen (specimen) 06/30/2013 11:56 AM EDT 06/30/2013 12:10 PM EDT Narrative Resulting Agency Comment Spec In Lab Dannielle Gallegos MD HEMATOLOGY ORDERABL ES DARIUS KEITH * Uric acid (06/30/2013 11:56 AM EDT) Uric Acid 5.0 3.0 - 5.9 mg/dL DARIUS KEITH Blood specimen (specimen) 06/30/2013 11:56 AM EDT 06/30/2013 12:10 PM EDT Narrative Resulting Agency Comment Spec In Lab Dannielle Gallegos MD CHEMISTRY ORDERABLE S Performing Organization Address City/[facility] Co de Phone Number DARIUS KEITH documented in this encounter Visit Diagnoses Diagnosis Peripartum cardiomyopathy Peripartum cardiomyopathy, unspecified as to episode of care Cardiomyopathy Other primary cardiomyopathies complicated by cardiac condition, antepartum, unspecified trimester Cardiomyopathy Other primary cardiomyopathies complicated by cardiac condition, antepartum, unspecified trimester documented in this encounter Care Teams Meat And Poultry Inspector Relationship Specialty Start Date End Date Rustam Coppola MD [address] [address] PCP - General 06/30/13 05/30/18 documented as of this encounter
--- OUTSIDE RECORDS SUMMARY | 2024-01-03 13:15 | XMS_ITS | Encounter Summary ---
Author Organization [facility] [place] [address] Care Team Providers Care Radiology Ct Technologist Name Role Phone Deep Chavez MD, Eder Primary Care Provider [phone] Encounter Details Date Type Department Care Team (Late st Contact Info) Description 06/12/2013 Orders Only Obstetrics [place] [address] Anusha Pak RN (Primary Dx) Social History Tobacco Use Types [...] 1:00 PM EST Appointment Non-[place] [address] Anton Márquez MD [facility] [place] [address] 01/27/2024 3:00 PM EST Office Visit Cardiology at [address] [address] Anton Márquez MD [facility] [place] [address] documented as of this encounter Results * Echocardiogram Transthoracic(Leb) (06/30/2013 1:38 PM EDT) EF 52 HEARTLAB SYSTEM Anatomical Region Laterality Modality Other 06/30/2013 Narrative 06/30/2013 2:13 PM EDT Procedure: ? Transthoracic Echocardiogram Patient: ? JORDON Polo ?(Age): 1995(18) Med Rec#: ?[id number] ? Sex: ?F ? Site Loc: [place] [place] ? Ht / Wt: ??173(cm)/88(kg) Pt. Loc: ? Echo Lab ? BSA: ?2.06 Study Date: ?06/30/2013 ? Pt. Type: Outpatient Tape: ? Referring: Rod Dukes Filling Hand: Kaylene Gimenez Diagnosis:CPT Code(s): ??Echo Full (04082), ??Spectral Doppler (23850), Color Doppler (28896), Indication(s): ??Congestive heart failure Rhythm: HR ?BP [...] ? Mid-Inferior ?Hypokinetic ? Mid-Inferoseptal ?Hypokinetic ? [place]rt[place]-Septal ? Hypokinetic ? [place]-Anterior ? Hypokinetic ? [place]-Lateral ?Hypokinetic ? [place]-Inferior ? Hypokinetic ? [place]-Tip ?Hypokinetic ? Chambers ?Value ?Units (Range) ? [...] 06/30/2013 14:13:07 Images reviewed and interpretation verified [facility] Cardiac Ultrasound Laboratory Procedure Note Rogelio Catalan MD - 06/30/2013 Procedure: Transthoracic Echocardiogram Patient: JORDON Polo DOB(Age): 1995(18) Med Rec#: [id number] Sex: F Site Loc: [facility] [place] Ht / Wt: 173(cm)/88(kg) Pt. Loc: Echo Lab BSA: 2.06 Study Date: 06/30/2013 Pt. Type: Outpatient Tape: Referring: Rod Dukes Filling Hand: Kaylene Gimenez Diagnosis:CPT Code(s): Echo Full (43886), Spectral Doppler (03490), Color Doppler (16322), Indication(s): Congestive heart failure Rhythm: HR BP [...] Hypokinetic Mid-Posterolateral Hypokinetic Mid-Inferior Hypokinetic Mid-Inferoseptal Hypokinetic Orrt[place]-Septal Hypokinetic Orrt[place]-Anterior Hypokinetic [place]-Lateral Hypokinetic [place]-Inferior Hypokinetic [place]-Tip Hypokinetic Chambers Value Units (Range) EF Bi-p [...] been electronically signed by: Rogelio Catalan M.D. 06/30/2013 14:13:07 Images reviewed and interpretation verified [facility] Cardiac Ultrasound Laboratory Rod Dukes MD ECHO ORDERABLES documented in this encounter Visit Diagnoses Diagnosis - Primary state, incidental state, incidental documented in this encounter Care Teams Radiology Ct Technologist Relationship Specialty Start Date End Date Eder Adame MD [address] [place] [address] [place] [address] PCP - General 02/04/10 06/29/13 documented as of this encounter
[2024-01-03 14:06] LABS: Abs Immature Grans 0.03 10^3/uL (0.0-0.06); Absolute Basophil Count 0.06 10^3/uL (0.0-0.2); Absolute Eosinophil Count 0.16 10^3/uL (0.0-0.7); Absolute Monocyte Count 0.67 10^3/uL (0.1-0.8); Absolute Neutrophil Count 6.64 10^3/uL (1.2-6.7); Basophils % 0.7 %; Eosinophils % 1.8 %; HCT 38.9 % (36.0-46.0); HGB 12.6 g/dL (11.2-15.7); Immature Grans % 0.3 %; Lymphocytes % 16.6 %; MCH 28.1 pg (27.0-33.0); MCHC 32.4 % (32.0-36.0); MCV 87 fL (80-95); MPV 10.7 fL (8.0-11.0); Monocytes % 7.4 %; Neutrophils % 73.2 %; Platelet Count 300 10^3/uL (130-400); RBC 4.49 10^6/uL (3.93-5.22); RDW 12.9 % (11.7-14.6); RDW-SD 40.7 fL; WBC 9.06 10^3/uL (4.4-10.8)
[2024-01-03 14:33] LABS: ALT 14 U/L (14-59); AST 12 U/L (15-37); Albumin 3.5 g/dL (3.4-5.0); Alkaline Phosphatase 76 U/L (46-116); Anion Gap 7.1 mmol/L (3-11); BUN 10 mg/dL (7-18); Bilirubin, Total 0.24 mg/dL (0.2-1.0); CO2 26.9 mmol/L (21.0-32.0); CREATININE 0.9 mg/dL (0.55-1.02); Calcium 9.4 mg/dL (8.5-10.1); Chloride 108 mmol/L (98-107); Estimated GFR 89.86 (mL/min/1.73m2); Glucose 89 mg/dL (74-106); Magnesium 1.9 mg/dL (1.8-2.4); NT-proBNP 97 pg/mL (<300); Sodium 142 mmol/L (136-145); TSH (W/Ref FT4) 1.79 uIU/mL (0.36-3.74); Total Protein 7.8 g/dL (6.4-8.2)
[2024-01-03 14:34] LABS: Troponin I < 4 ng/L (<or=51)
[2024-01-03 14:51] LABS: Troponin I < 4 ng/L (<or=51)
--- NOTE | 2024-01-03 14:51 | ED.GENADUL_ITS ---
Discharge Plan Discharge Details Chief Complaint: Chest Pain Primary Care Provider: Pietro Son ED Provider: Ervin Leung Home Meds and New Rx's Prescriptions: No Action (DME) Aerochamber MV Spacer See Rx Instructions .Route Qty: 1 0RF Rx Instructions: As directed metoprolol succinate 25 mg tablet extended release 24 hr 25 mg PO DAILY spironolactone 25 mg tablet 25 mg PO DAILY Patient Comments: TAKE ONE TABLET BY MOUTH EVERY DAY Entresto 24-26 mg tablet 1 tab PO BID Patient Comments: TAKE ONE TABLET BY MOUTH TWICE A DAY HPI General Mode of arrival: ambulatory . Date/Time Provider Initiated Documentation: 01/03/24 13:39 . Limitations to Documentation: no limitations . Information obtained by: patient . HPI Narrative: 28-year-old female with history of nonischemic cardiomyopathy, anxiety disorder, here with chief complaint of abnormal heartbeat. Patient notes this morning around 2 AM she had an episode where she felt like her heart stopped beating briefly. She then developed chest discomfort and she was quite shaky and distressed. She was able to go back to sleep and when she woke again at 6 AM she noted labile heart rate, continued chest discomfort, presyncope, and severe anxiety. Patient does currently have mild chest discomfort. She has no shortness of breath. Patient does question whether symptoms could be related to anxiety disorder. She does note she has had similar abnormal heartbeats in the past as recent as August that she does not believe were appropriately worked up at [facility]. Related Data Home Medications ?Medication ?Instructions ?Recorded ?Confirmed spironolactone 25 mg tablet 25 mg PO DAILY 04/23/21 01/03/24 sacubitril 24 mg-valsartan 26 mg 1 tab PO BID 11/22/21 01/03/24 tablet (Entresto) metoprolol succinate 25 mg 25 mg PO DAILY 12/24/21 01/03/24 tablet,extended release 24 hr inhalational spacing device #1 ea 12/08/22 01/03/24 (Aerochamber MV spacer) Previous Rx's ?Medication ?Instructions ?Recorded inhalational spacing device #1 ea 12/08/22 (Aerochamber MV spacer) Allergies Allergy/AdvReac Type Severity Reaction Status Date / Time No Known Allergies Allergy Verified 01/03/24 12:46 General Stated Complaint: Chest Pain GABRIEL: 2 Review of Systems All systems reviewed & are unremarkable except as noted in HPI and below Constitutional Constitutional: Denies fever(s) Cardiovascular Cardiovascular: Reports as per HPI and Reports irregular heart rhythm Exam Const General: cooperative HENMT Mouth: moist mucous membranes Eyes Conjunctivae: normal conjunctivae Sclera: normal sclerae Neck Neck: trachea midline and supple Thyroid: thyroid normal Resp Auscultation: clear to auscultation bilaterally, no rales, no rhonchi and no wheezes Cardio Jugular venous pressure: no JVD Rate: regular rate and not tachycardic Rhythm: regular rhythm GI Palpation: soft, not firm, no guarding, no masses, not rigid and nontender Skin General skin exam: no rashes or lesions noted Neuro General: patient alert, patient awake, patient oriented x3 and tone normal Extrem General: no calf tenderness and no edema Psych Appearance: grossly normal Mental Status: mental status grossly normal Speech and Movement: speech and movement normal Affect: anxious affect Course Vital Signs Vital signs: Vital Signs Temperature 36.2 C L 01/03/24 12:42 Pulse 86 01/03/24 12:42 Respiratory Rate 18 01/03/24 12:42 Blood Pressure 120/80 01/03/24 12:42 Pulse Oximetry 98 01/03/24 12:42 Temperature 36.2 C L 01/03/24 12:42 Temperature Source Tympanic 01/03/24 12:42 Pulse 86 01/03/24 12:42 Respiratory Rate 16 01/03/24 13:12 Respiratory Effort Normal, Non-Labored 01/03/24 13:12 Respiratory Depth Normal 01/03/24 13:12 Respiratory Pattern Normal 01/03/24 13:12 Blood Pressure 120/80 01/03/24 12:42 Pulse Oximetry 98 01/03/24 12:42 Oxygen Delivery Method Room Air 01/03/24 12:42 Oxygen Flow Rate 0 01/03/24 12:42 Pain Level 3 01/03/24 13:12 Lab/Test Results Lab/Test Results: Laboratory Tests Range/Units 01/03/24 13:17 WBC (4.4-10.8) 10^3/uL 9.06 RBC (3.93-5.22) 10^6/uL 4.49 Hgb (11.2-15.7) g/dL 12.6 Hct (36.0-46.0) % 38.9 MCV (80-95) fL 87 MCH (27.0-33.0) pg 28.1 MCHC (32.0-36.0) % 32.4 RDW (11.7-14.6) % 12.9 Plt Count (130-400) 10^3/uL 300 MPV (8.0-11.0) fL 10.7 Immature Gran % % 0.3 Neutrophils % % 73.2 Lymphocytes % % 16.6 Monocytes % % 7.4 Eosinophils % % 1.8 Basophils % % 0.7 Nucleated RBC % (0.0-0.3) % 0.0 Absolute Neutrophils (1.2-6.7) 10^3/uL 6.64 Absolute Lymphocytes (1.2-3.4) 10^3/uL 1.50 Absolute Monocytes (0.1-0.8) 10^3/uL 0.67 Absolute Eosinophils (0.0-0.7) 10^3/uL 0.16 Absolute Basophils (0.0-0.2) 10^3/uL 0.06 Sodium (136-145) mmol/L 142 Potassium (3.5-5.1) mmol/L 4.0 Chloride (98-107) mmol/L 108 H Carbon Dioxide (21.0-32.0) mmol/L 26.9 Anion Gap (3-11) mmol/L 7.1 BUN (7-18) mg/dL 10 Creatinine (0.55-1.02) mg/dL 0.9 Est GFR (CKD-EPI 2020) (mL/min/1.73m2) 89.86 Glucose (74-106) mg/dL 89 Calcium (8.5-10.1) mg/dL 9.4 Magnesium (1.8-2.4) mg/dL 1.9 Total Bilirubin (0.2-1.0) mg/dL 0.24 AST (15-37) U/L 12 L ALT (14-59) U/L 14 Alkaline Phosphatase (46-116) U/L 76 Troponin I (<or=51) ng/L < 4 NT-Pro-B Natriuret Pep (<300) pg/mL 97 Total Protein (6.4-8.2) g/dL 7.8 Albumin (3.4-5.0) g/dL 3.5 TSH (0.36-3.74) uIU/mL 1.79 POC- Test(urine) Negative Medical Decision Making 1455 --28-year-old female with history of nonischemic cardiomyopathy, anxiety disorder, here with palpitations and having had an episode around 2 AM where it felt like her heart stopped beating, now with ongoing intermittent palpitations, chest discomfort and anxiety. Patient is hemodynamically stable. She is saturating well in no respiratory distress. EKG was reviewed and interpreted by me: Please report, sinus rhythm 95 bpm, borderline ST depression noted lead II, 3, aVF, V3-V6 which has similar morphology when compared to prior EKG from 04/08/2023. Consider ACS and congestive heart failure. Initial troponin negative. BNP normal. Plan to trend troponin and plan for continuous cardiac monitoring. 1620 --initial labs reviewed. Initial troponin and delta troponin at 1 hour negative. BNP negative. Given patient's history of nonischemic cardiomyopathy, plan for hospitalization for cardiac monitoring overnight. Plan discussed with the patient. She is attempting to contact her significant other to arrange for childcare. Lab Data Lab results reviewed: Yes I reviewed the patient's lab results. Labs: Laboratory Tests Range/Units 01/03/24 01/03/24 13:17 14:23 WBC (4.4-10.8) 10^3/uL 9.06 RBC (3.93-5.22) 10^6/uL 4.49 Hgb (11.2-15.7) g/dL 12.6 Hct (36.0-46.0) % 38.9 MCV (80-95) fL 87 MCH (27.0-33.0) pg 28.1 MCHC (32.0-36.0) % 32.4 RDW (11.7-14.6) % 12.9 Plt Count (130-400) 10^3/uL 300 MPV (8.0-11.0) fL 10.7 Immature Gran % % 0.3 Neutrophils % % 73.2 Lymphocytes % % 16.6 Monocytes % % 7.4 Eosinophils % % 1.8 Basophils % % 0.7 Nucleated RBC % (0.0-0.3) % 0.0 Absolute Neutrophils (1.2-6.7) 10^3/uL 6.64 Absolute Lymphocytes (1.2-3.4) 10^3/uL 1.50 Absolute Monocytes (0.1-0.8) 10^3/uL 0.67 Absolute Eosinophils (0.0-0.7) 10^3/uL 0.16 Absolute Basophils (0.0-0.2) 10^3/uL 0.06 Sodium (136-145) mmol/L 142 Potassium (3.5-5.1) mmol/L 4.0 Chloride (98-107) mmol/L 108 H Carbon Dioxide (21.0-32.0) mmol/L 26.9 Anion Gap (3-11) mmol/L 7.1 BUN (7-18) mg/dL 10 Creatinine (0.55-1.02) mg/dL 0.9 Est GFR (CKD-EPI 2020) (mL/min/1.73m2) 89.86 Glucose (74-106) mg/dL 89 Calcium (8.5-10.1) mg/dL 9.4 Magnesium (1.8-2.4) mg/dL 1.9 Total Bilirubin (0.2-1.0) mg/dL 0.24 AST (15-37) U/L 12 L ALT (14-59) U/L 14 Alkaline Phosphatase (46-116) U/L 76 Troponin I (<or=51) ng/L < 4 < 4 NT-Pro-B Natriuret Pep (<300) pg/mL 97 Total Protein (6.4-8.2) g/dL 7.8 Albumin (3.4-5.0) g/dL 3.5 TSH (0.36-3.74) uIU/mL 1.79 Quality:SDOH Health Related Social Needs: No Data to Display PFSH All Active Problems Leg swelling in in third trimester (Acute) CHF (congestive heart failure) (Chronic) COVID (Acute) COVID-19 (Acute) HRP (high risk ) (Acute) History of cardiomyopathy and congestive heart failure. Has been seen at [facility]. Careful evaluation of cardiac function. High likelihood for delivery at a tertiary facility History of posttraumatic stress disorder (PTSD) (Acute) therapy in the past, sertraline in the past (Acute) Miscarriage, threatened, early (Acute) CHF (congestive heart failure) (Chronic) S/P hernia repair (Chronic) History of section (Chronic) Anxiety (Chronic) Nonischemic cardiomyopathy (Chronic) Buttock pain (Acute) Sciatica (Acute) Medical History Low back pain Chronic depression Menorrhagia Family History Maternal Grandfather Congestive heart disease Mother Bipolar 1 disorder Degenerative disc disease Paternal Cousin Seizures Brother Schizophrenia Father Schizophrenia Paternal Grandmother Breast cancer Social History Smoking/Tobacco Use Status: Former Tobacco Use Quit Date: 06/05/20 Smoking risk assessment performed?: Yes Alcohol Intake: never Drug use: Occasionally Substance use type: marijuana Pets and animals: Yes Pets and animals: cat(s) Sexually active: Yes Do you feel safe at home: Yes Do you feel safe in your relationship?: Yes History History 4 Para 1 Hx # Term Pregnancies Multiple births Hx # Pregnancies Ectopic pregnancies 1 AB induced 2 Hx Number of Living Children AB spontaneous Past Pregnancies Del. Date GA/Weeks # Preg Succ Route Wgt Sex Labor Lgth Anesth esia Location Prov Complic 10/08/13 37 No 3005.049 g Male [facility] Delivery Date: 10/08/13 Last Updated by: Vicky Manuel CNM IOL due to cardiomyopathy, FHR decellerations, emergency under epidural analgesia. POCUS Exam (ED) Limited Cardiac Exam DATE OF EXAM: 01/03/24 TIME OF EXAM: 16:20 PROVIDER THAT PERFORMED THE STUDY: Ervin Leung IS THIS A REPEAT EXAM DURING THIS ENCOUNTER: no REASON FOR EXAM: Chest pain VISUALIZED STRUCTURES: Left atrium, Left ventricle and Right ventricle PERTINENT FINDINGS/IMPRESSION: No pericardial effusion Exam complete
[2024-01-03 17:04] LABS: Troponin I < 4 ng/L (<or=51)
--- NOTE | 2024-01-03 17:21 | W.EDPROG ---
Date of service: 01/03/24 Time of Service: 17:21 Medical Decision Making This dictation utilizes [id number] dictation software and may contain unedited grammatical errors. Patient seen in sign-out from Dr. Ervin Leung, please see his complete note. Essentially this 28 y/o F with a history of nonischemic cardiomyopathy and CHF onset in childhood presents with palpitations throughout the night, woke up late last night felt like her heart went through a long pause, has had alternating subjective tachycardia and bradycardia with palpitations all day today, states that she felt lightheaded and had some mild chest pain on the left side, has a history of chronic anxiety disorder as well. The plan was for the patient to be observed on telemetry overnight, her delta troponins have been negative throughout visit here in no cardiac either arrhythmias were observed on telemetry monitors here in the ED. Patient states she could not arrange for childcare this evening and will be signing out AGAINST MEDICAL ADVICE, the only thing pending is a 3-hour troponin which is negative. Patients EKG had some chronic ST-depressions, no acute dynamic changes. Patients' medical history: Anxiety, CHF, nonischemic cardiomyopathy. Family and social history: Noncontributory. Differential / pathologies of concern include moderate risk palpitations, HEART score 4, not ACS. Diagnostic studies of: -Reviewed prior labs, multiple troponins negative, TSH normal, BNP normal, no electrolyte abnormalities, no signs of infectious etiology. Interventions of: -None. ED Course/Assessment/Plan: 28-year-old female with a history of nonischemic cardiomyopathy and CHF onset in childhood presents with severe palpitations overnight but also has chronic anxiety disorder, has moderate heart score, ACS is likely ruled out at this time with multiple negative troponins, no cardiac arrhythmias were observed on monitor and storage bin tender and patient has been stable for [address] Leung did wish to pursue telemetry ops for this patient with her history but she states she cannot obtain any childcare overnight and will sign out AGAINST MEDICAL ADVICE I stressed strict return criteria for any return of palpitations, chest pain, or any other emergent concerns. Patient acknowledged the risks of leaving AGAINST MEDICAL ADVICE not excluding acute coronary syndrome heart attack, dangerous tachyarrhythmia and even but I stressed that she should return immediately for any return of severe symptoms and she was agreeable with this plan. Findings not consistent with ACS, cardiac arrhythmia. Disposition of Palpitations. Patient verbalized understanding of the plan and return to ED criteria and engaged in shared decision making. Medical Records Medical records reviewed: Yes I reviewed the patient's medical records. Lab Data Lab results reviewed: Yes I reviewed the patient's lab results. Labs: Laboratory Tests Range/Units 01/03/24 01/03/24 01/03/24 13:17 14:23 16:39 WBC (4.4-10.8) 10^3/uL 9.06 RBC (3.93-5.22) 10^6/uL 4.49 Hgb (11.2-15.7) g/dL 12.6 Hct (36.0-46.0) % 38.9 MCV (80-95) fL 87 MCH (27.0-33.0) pg 28.1 MCHC (32.0-36.0) % 32.4 RDW (11.7-14.6) % 12.9 Plt Count (130-400) 10^3/uL 300 MPV (8.0-11.0) fL 10.7 Immature Gran % % 0.3 Neutrophils % % 73.2 Lymphocytes % % 16.6 Monocytes % % 7.4 Eosinophils % % 1.8 Basophils % % 0.7 Nucleated RBC % (0.0-0.3) % 0.0 Absolute Neutrophils (1.2-6.7) 10^3/uL 6.64 Absolute Lymphocytes (1.2-3.4) 10^3/uL 1.50 Absolute Monocytes (0.1-0.8) 10^3/uL 0.67 Absolute Eosinophils (0.0-0.7) 10^3/uL 0.16 Absolute Basophils (0.0-0.2) 10^3/uL 0.06 Sodium (136-145) mmol/L 142 Potassium (3.5-5.1) mmol/L 4.0 Chloride (98-107) mmol/L 108 H Carbon Dioxide (21.0-32.0) mmol/L 26.9 Anion Gap (3-11) mmol/L 7.1 BUN (7-18) mg/dL 10 Creatinine (0.55-1.02) mg/dL 0.9 Est GFR (CKD-EPI 2020) (mL/min/1.73m2) 89.86 Glucose (74-106) mg/dL 89 Calcium (8.5-10.1) mg/dL 9.4 Magnesium (1.8-2.4) mg/dL 1.9 Total Bilirubin (0.2-1.0) mg/dL 0.24 AST (15-37) U/L 12 L ALT (14-59) U/L 14 Alkaline Phosphatase (46-116) U/L 76 Troponin I (<or=51) ng/L < 4 < 4 < 4 NT-Pro-B Natriuret Pep (<300) pg/mL 97 Total Protein (6.4-8.2) g/dL 7.8 Albumin (3.4-5.0) g/dL 3.5 TSH (0.36-3.74) uIU/mL 1.79 Quality:SDOH Health Related Social Needs: No Data to Display Sign Out Sign Out Data: Sign Out Comment: Patient contacting significant other to arrange childcare. Plan for hospitalization for cardiac monitoring. Last updated by Ervin Leung MD at 01/03/24 16:27 Discharge Plan Disposition Patient Disposition: Against Medical Advice Condition: Stable Discharge Details Clinical Impression: Palpitations Primary Care Provider: Pietro Son ED Provider: Rufino Brown Home Meds and New Rx's Prescriptions: Continued (DME) Aerochamber MV Spacer See Rx Instructions .Route Qty: 1 0RF Rx Instructions: As directed metoprolol succinate 25 mg tablet extended release 24 hr 25 mg PO DAILY spironolactone 25 mg tablet 25 mg PO DAILY Patient Comments: TAKE ONE TABLET BY MOUTH EVERY DAY Entresto 24-26 mg tablet 1 tab PO BID Patient Comments: TAKE ONE TABLET BY MOUTH TWICE A DAY Discharge Instructions Instructions: Palpitations ED Additional Instructions: You were seen in the emergency department for your palpitations overnight with some chest pain, your cardiac workup is negative, your EKG had no new changes and you are observed for 4+ hours here without any observed arrhythmia on monitor and storage bin tender. Due to your history of CHF and nonischemic cardiomyopathy we did wish to pursue telemetry observation overnight we could not obtain childcare and will be leaving AGAINST MEDICAL ADVICE. Please do not hesitate to return for further episodes of palpitations and chest pain and any emergent concerns. Please follow-up with your regularly scheduled cardiology visits. Referrals: Pietro Son [Primary Care Provider] -
== END 2024-01-03 17:35 | disposition left against medical advice (07) ==
PROVIDERS: Student in an Organized Health Care Education/Training Program; Emergency Provider Physician Assistant; PCP Physician Assistant
DX: R07.9 Chest pain, unspecified (principal); R00.2 Palpitations; Z53.29 Procedure and treatment not carried out because of patient's decision for other reasons
CPT/HCPCS: 00123; 36415; 80053; 81025; 93005; 93308; 99283; 83735; 83880; 84443; 84484; 85025; 93010

== ENCOUNTER 2024-06-28 03:55 | Emergency (ER) | payer MEDICAID, SELFPAY ==
[2024-06-28] VITALS (39 sets, daily range): BP systolic 79–106; BP diastolic 39–69; PULSE 65–87; RESP 8–25; TEMP 36.6; O2SAT 91–98
--- NOTE | 2024-06-28 03:45 | RT.EKG_ITS ---
APPROVED REPORT Exam: Resting ECG Reason for Exam: SOB/Chest tightness Patient Location: E HR:74 bpm ECG Measurements Heart Rate 74 AXIS CA 154 P 28 QRSd 97 QRS 37 QT 391 T 22 QTc 434 Conclusion Sinus rhythm...normal P axis, V-rate 60- 99 Physician: no stemi
--- NOTE | 2024-06-28 04:10 | ED.GENADUL_ITS ---
Discharge Plan Disposition Patient Disposition: Home Condition: Good Discharge Details Chief Complaint: Anxiety Clinical Impression: Burning reflux Primary Care Provider: Pietro Son ED Provider: Rufino To Home Meds and New Rx's Prescriptions: No Action (DME) Aerochamber MV Spacer See Rx Instructions .Route Qty: 1 0RF Rx Instructions: As directed metoprolol succinate 25 mg tablet extended release 24 hr 25 mg PO DAILY ondansetron HCl 4 mg tablet 4 mg PO Q8H PRN (Reason: nausea and vomiting) Qty: 15 0RF spironolactone 25 mg tablet 25 mg PO DAILY Patient Comments: TAKE ONE TABLET BY MOUTH EVERY DAY Discharge Instructions Instructions: Acid reflux and GERD in adults Additional Instructions: At this time your workup has returned reassuring. There is no signs of heart attack, blood clot or other significant abnormality. I suspect your symptoms are most likely secondary to reflux from the dinner tonight, and potentially esophageal irritation. Please take Tums with every meal for the next few days. Please drink plenty fluids and stay well-hydrated. If you notice any worsening of your symptoms, or any new symptoms such as vomiting, diarrhea, fever, chills, shortness of breath, chest pain, numbness, weakness, or fainting , please return immediately to the emergency department for reevaluation. Please follow up with your primary care provider as soon as possible for reassessment and reevaluation. As always, it was a pleasure participating in your medical care today. Referrals: Pietro Son [Primary Care Provider] - [facility] General Date/Time Provider Initiated Documentation: 06/28/24 04:03 . HPI Narrative: This is a pleasant 29-year-old female with a past medical history of nonischemic cardiomyopathy/congestive heart failure, PTSD, anxiety/panic attacks, tubal ligation, who presents today for evaluation of feeling atypical versus panic attack. Patient states that at around midnight she felt like she was having a panic attack. She felt uneasy, and felt like she previously has had with panic attacks however she states that her heart rate did not go up as it usually does. This continued for the next 3 to 4 hours, however about an hour or so ago she also developed mild left-sided face numbness and tingling, burning in her left chest and left shoulder, and felt atypical. She states she did have an excessive amount of [place] food earlier tonight and is concerned that this may be a component of her symptoms. She denies any tearing or ripping sensation. She denies any weakness. She denies any syncope. She denies any exertional discomfort. No other complaints at this time. No other modifying factors. She denies any drug or alcohol use. Related Data Home Medications ?Medication ?Instructions ?Recorded ?Confirmed spironolactone 25 mg tablet 25 mg PO DAILY 04/23/21 06/28/24 metoprolol succinate 25 mg 25 mg PO DAILY 12/24/21 06/28/24 tablet,extended release 24 hr ondansetron HCl 4 mg tablet 4 mg PO Q8H PRN nausea and 05/10/24 06/28/24 vomiting #15 tabs Previous Rx's ?Medication ?Instructions ?Recorded ondansetron HCl 4 mg tablet 4 mg PO Q8H PRN nausea and 05/10/24 vomiting #15 tabs Allergies Allergy/AdvReac Type Severity Reaction Status Date / Time No Known Allergies Allergy Verified 05/10/24 09:52 General Stated Complaint: Anxiety GABRIEL: 3 Exam Narrative Exam Narrative: 1.Const: Well-nourished, Well-developed, appearing stated age 2.Eyes: PERRL, no conjunctival injection, and symmetrical lids. 3.ENT: Atraumatic external nose and ears. Moist MM. Neck: Symmetric, trachea midline, No thyromegaly. 4.CVS: +S1/S2, Peripheral pulses 2+ and equal in all extremities. Brisk capillary refill in all extremities. No pulse asymmetry 5.RESP: Unlabored respiratory effort. Clear to auscultation bilaterally. No wheezes rales or rhonchi 6.GI: Soft, Nontender/Nondistended, No hepatosplenomegaly. No guarding or rebound. 7.MSK: Normocephalic/Atraumatic, Extremities w/o deformity or ttp No cyanosis or clubbing, Normal movement of all extremities 8.Skin: Warm, Dry. No rashes or lesions. No rash over the shoulder. No evidence of shingles 9.Neuro: accounts receivable processor II-XII grossly intact. Sensation grossly intact, no focal neurologic deficits. All 6 cardinal planes of vision are fully intact. No evidence of rotatory or vertical nystagmus. The patient demonstrated a normal [id number]-uoyv-cdsgse, good dexterity. There was no evidence of dysdiadochokinesia. Patient was able to ambulate without difficulty. There was no wide-based gait. Romberg testing was normal. Kdfb-xm-qfsd testing was normal. Sensation was intact bilaterally as well as muscle strength bilaterally for all extremities. Patient was able to verbalize butter cup with no slurring, or miss pronunciation. 10.Psych: (AAO) x3. Appropriate mood and affect Course Vital Signs Vital signs: Vital Signs Temperature 36.6 C 06/28/24 03:52 Pulse 82 06/28/24 03:52 Respiratory Rate 16 06/28/24 03:52 Blood Pressure 106/60 06/28/24 03:52 Pulse Oximetry 96 06/28/24 03:52 Temperature 36.6 C 06/28/24 03:52 Temperature Source Temporal Artery Scan 06/28/24 03:52 Pulse 82 06/28/24 03:52 Respiratory Rate 16 06/28/24 03:57 Respiratory Effort Normal, Non-Labored 06/28/24 03:57 Respiratory Depth Normal 06/28/24 03:57 Respiratory Pattern Normal 06/28/24 03:57 Blood Pressure 106/60 06/28/24 03:52 Blood Pressure Position Sitting 06/28/24 03:52 Pulse Oximetry 96 06/28/24 03:52 Oxygen Delivery Method Room Air 06/28/24 03:52 Oxygen Flow Rate 0 06/28/24 03:52 Medical Decision Making This is a pleasant 29-year-old female with a past medical history of nonischemic cardiomyopathy/congestive heart failure, PTSD, anxiety/panic attacks, tubal ligation, who presents today for evaluation of feeling atypical versus panic attack. Patient states that at around midnight she felt like she was having a panic attack. She felt uneasy, and felt like she previously has had with panic attacks however she states that her heart rate did not go up as it usually does. This continued for the next 3 to 4 hours, however about an hour or so ago she also developed mild left-sided face numbness and tingling, burning in her left chest and left shoulder, and felt atypical. She states she did have an excessive amount of [place] food earlier tonight and is concerned that this may be a component of her symptoms. She denies any tearing or ripping sensation. She denies any weakness. She denies any syncope. She denies any exertional discomfort. No other complaints at this time. No other modifying factors. She denies any drug or alcohol use. Exam demonstrates well-appearing female, vital signs notably stable, no tachycardia hypotension or hypertension. No pulse asymmetry at the radial pulses to suggest dissection. No tearing or ripping sensation to suggest dissection. She is not currently on any control, and she has no pleuritic chest pain to suggest PE. No tachycardia. PERC and Wells scores are low/negative. Burning in the chest is atypical, she has no rash to suggest shingles. However reflux or esophageal spasm may certainly be a component. EKG shows no evidence of STEMI or other significant abnormality. Symptoms appear unlikely to be ACS or unstable angina given her risk factors and history. Dysrhythmia is certainly of concern but with no syncope, near syncope, or EKG abnormality I feel this is less likely. No neurologic deficits to suggest stroke. We will gently rehydrate, evaluate for electrolyte cardiac abnormalities with labs, get a D-dimer for definitive PE rule out, monitor closely and reassess. 5:22 AM Laboratory workup has returned, no white count bandemia or left shift. Troponins are normal. D-dimer normal suggesting no evidence of PE. Thyroid function normal suggesting no evidence of hyperthyroidism to cause dysrhythmia or other atypical feeling. Lipase normal showing no signs of pancreatitis. On reassessment patient's atypical burning sensation has completely resolved after GI cocktail. She feels much better. She has been rehydrated. Symptoms at this time appear consistent with reflux as the cause coupled with mild dehydration and potential anxiety as well. Patient will be discharged home. Discussed red flags for which to return. I have extensively reviewed the treatment plan and discharge instructions with the patient. I have addressed all patient concerns at this time. The patient was made aware of what symptoms to monitor for that would warrant a return to the emergency department. Discussed the plan with the patient, they demonstrate verbal understanding and agreement with our assessment and plan at this time. The documentation in this chart was dictated using [employer] dictation software. Please excuse any dictation errors. Quality:SDOH Health Related Social Needs: No Data to Display PFSH All Active Problems (Updated 06/28/24 @ 05:22 by Rufino To DO) Burning reflux (Acute) Leg swelling in in third trimester (Acute) CHF (congestive heart failure) (Chronic) COVID (Acute) COVID-19 (Acute) HRP (high risk ) (Acute) History of cardiomyopathy and congestive heart failure. Has been seen at [facility]. Careful evaluation of cardiac function. High likelihood for delivery at a tertiary facility History of posttraumatic stress disorder (PTSD) (Acute) therapy in the past, sertraline in the past (Acute) Miscarriage, threatened, early (Acute) CHF (congestive heart failure) (Chronic) S/P hernia repair (Chronic) History of section (Chronic) Anxiety (Chronic) Nonischemic cardiomyopathy (Chronic) Buttock pain (Acute) Sciatica (Acute) Medical History Low back pain Chronic depression Menorrhagia Family History Maternal Grandfather Congestive heart disease Mother Bipolar 1 disorder Degenerative disc disease Paternal Cousin Seizures Brother Schizophrenia Father Schizophrenia Paternal Grandmother Breast cancer Social History Smoking/Tobacco Use Status: Former Tobacco Use Quit Date: 06/05/20 Smoking risk assessment performed?: Yes Alcohol Intake: never Drug use: Occasionally Substance use type: marijuana Pets and animals: Yes Pets and animals: cat(s) Sexually active: Yes Do you feel safe at home: Yes Do you feel safe in your relationship?: Yes History History 4 Para 1 Hx # Term Pregnancies Multiple births Hx # Pregnancies Ectopic pregnancies 1 AB induced 2 Hx Number of Living Children AB spontaneous Past Pregnancies Del. Date GA/Weeks # Preg Succ Route Wgt Sex Labor Lgth Anesth esia Location Prov Complic 10/08/13 37 No 3005.049 g Male [facility] Delivery Date: 10/08/13 Last Updated by: Vicky Manuel CNM IOL due to cardiomyopathy, FHR decellerations, emergency under epidural analgesia.
[2024-06-28] MEDS: MYLANTA 30 ML, LIDOCAINE 2% VISCOUS UD 15 ML PO (04:21)
[2024-06-28] MEDS: Normal Saline 500 ML IV (04:23)
[2024-06-28 04:24] LABS: Abs Immature Grans 0.03 10^3/uL (0.0-0.06); Absolute Basophil Count 0.06 10^3/uL (0.0-0.2); Absolute Eosinophil Count 0.21 10^3/uL (0.0-0.7); Absolute Lymphocyte Count 1.76 10^3/uL (1.2-3.4); Absolute Monocyte Count 0.45 10^3/uL (0.1-0.8); Absolute Neutrophil Count 5.05 10^3/uL (1.2-6.7); Basophils % 0.8 %; Eosinophils % 2.8 %; HCT 39.5 % (36.0-46.0); HGB 12.6 g/dL (11.2-15.7); Immature Grans % 0.4 %; Lymphocytes % 23.3 %; MCHC 31.9 % (32.0-36.0); MCV 88 fL (80-95); MPV 10.5 fL (8.0-11.0); Neutrophils % 66.7 %; Platelet Count 291 10^3/uL (130-400); RDW 13.2 % (11.7-14.6); RDW-SD 42.7 fL; WBC 7.56 10^3/uL (4.4-10.8)
[2024-06-28 04:50] LABS: ALT 15 U/L (14-59); AST 9 U/L (15-37); Albumin 3.5 g/dL (3.4-5.0); Alkaline Phosphatase 77 U/L (46-116); BUN 12 mg/dL (7-18); Bilirubin, Total 0.2 mg/dL (0.2-1.0); CREATININE 0.9 mg/dL (0.55-1.02); Calcium 8.9 mg/dL (8.5-10.1); Chloride 108 mmol/L (98-107); D-Dimer 282 ng/mlFEU (<500); Glucose 106 mg/dL (74-106); Potassium 3.9 mmol/L (3.5-5.1); Sodium 142 mmol/L (136-145); TSH (W/Ref FT4) 2.79 uIU/mL (0.36-3.74); Total Protein 7.5 g/dL (6.4-8.2); Troponin I 4 ng/L (<or=51)
[2024-06-28 04:57] LABS: Lipase 66 U/L (<78)
[2024-06-28 05:35] LABS: Troponin I 5 ng/L (<or=51)
== END 2024-06-28 05:26 | disposition home or self-care (01) ==
PROVIDERS: Emergency Provider Student in an Organized Health Care Education/Training Program; PCP Physician Assistant
DX: F41.9 Anxiety disorder, unspecified (principal); K21.9 Gastro-esophageal reflux disease without esophagitis; I42.8 Other cardiomyopathies; Z87.891 Personal history of nicotine dependence
CPT/HCPCS: 36415; 80053; 83690; 93005; 96360; 99284; 84443; 84484; 85025; 85379; 93010

== ENCOUNTER 2024-08-16 20:04 | Emergency (ER) | payer MEDICAID, SELFPAY ==
[2024-08-16] VITALS (13 sets, daily range): BP systolic 103–129; BP diastolic 59–89; PULSE 73–97; RESP 10–21; TEMP 36.6; O2SAT 98–100
--- NOTE | 2024-08-16 20:00 | RT.EKG_ITS ---
APPROVED REPORT Exam: Resting ECG Reason for Exam: chest pain Patient Location: E HR:94 bpm ECG Measurements Heart Rate 94 AXIS TN 144 P 32 QRSd 93 QRS 5 QT 359 T 40 QTc 449 Conclusion Sinus rhythm...normal P axis, V-rate 60- 99 Normal Electrocardiogram
--- NOTE | 2024-08-16 20:15 | DI.RAD_ITS ---
Exam(s) XR CHEST 2V PA LATERAL EXAM: XR CHEST 2V PA LATERAL CLINICAL HISTORY: Chest pain TECHNIQUE: 2D digital imaging was performed of the chest. Two images were obtained. PA and lateral views were obtained. COMPARISON: CR XR CHEST 2V PA LATERAL from 12/08/2022 FINDINGS: MEDIASTINUM: Normal. HEART: Normal. PULMONARY VASCULATURE: Normal. LUNGS: Clear. PLEURAL SPACE: No pleural effusion or pneumothorax. BONE:Within normal limits for the patient's age. OTHER FINDINGS:Normal. IMPRESSION: 1. No acute pulmonary findings. 2. The preliminary [facility] report was reviewed. DATA REPOSITORY: RADIATION DOSE DELIVERED:
--- NOTE | 2024-08-16 20:28 | W.ED.GENAD ---
Discharge Plan Disposition Patient Disposition: Home Condition: Stable Discharge Details Clinical Impression: Chest pain Primary Care Provider: Pietro Son ED Provider: Idalmis Olmedo Home Meds and New Rx's Prescriptions: Continued metoprolol succinate 25 mg tablet extended release 24 hr 25 mg PO DAILY ondansetron HCl 4 mg tablet 4 mg PO Q8H PRN (Reason: nausea and vomiting) Qty: 15 0RF spironolactone 25 mg tablet 25 mg PO DAILY Patient Comments: TAKE ONE TABLET BY MOUTH EVERY DAY iron [id number] 150-800-140 mg-mcg-mg tablet PO QDAY Discharge Instructions Instructions: Chest Pain, Adult ED Additional Instructions: At this time the initial troponin is within normal limits however the 1 hour troponin has not resulted yet. I also do not have the radiology report of your chest x-ray. If anything comes back abnormal we will call you. You were given a dose of your metoprolol and the spironolactone here in the ER tonight. Follow up with primary care provider in 3-5 days. Return to ED sooner if any worsening or concerns. Please take Tylenol or Ibuprofen with food every 4-6 hours as needed for pain and swelling. Referrals: Pietro Son [Primary Care Provider] - 3 days Discharge Data Discharge Date/Time-TO BE ENTERED AT DEPARTURE: 08/16/24 21:52 HPI General Mode of arrival: ambulatory. Date/Time Provider Initiated Documentation: 08/16/24 20:08. Limitations to Documentation: no limitations. Information obtained by: patient, RN notes reviewed and old records reviewed. HPI Narrative: 29-year-old female with a past medical history of noncardiogenic cardiomyopathy, CHF, PTSD, anxiety presents to the ER with a chief complaint of chest pain that began while she was eating dinner. She describes it as going into her back and began feeling clammy and having some shortness of breath. She has not been able to take her metoprolol or spironolactone the last 2 days due to pharmacy shortage. She denies any fever chills nausea vomiting diarrhea or cough. She is ANO x 4. She reports that the pain comes and goes. Related Data Home Medications ?Medication ?Instructions ?Recorded ?Confirmed spironolactone 25 mg tablet 25 mg PO DAILY 04/23/21 08/16/24 metoprolol succinate 25 mg 25 mg PO DAILY 10/12/22 06/04/25 tablet,extended release 24 hr ondansetron HCl 4 mg tablet 4 mg PO Q8H PRN nausea and 05/10/24 08/16/24 vomiting #15 tabs iron [id number] thr-succ tab PO QDAY 08/16/24 150 mg-800 mcg-140 mg tablet Previous Rx's ?Medication ?Instructions ?Recorded ondansetron HCl 4 mg tablet 4 mg PO Q8H PRN nausea and 05/10/24 vomiting #15 tabs Allergies Allergy/AdvReac Type Severity Reaction Status Date / Time No Known Allergies Allergy Verified 05/10/24 09:52 General Stated Complaint: Chest Pain GABRIEL: 3 Review of Systems All systems reviewed & are unremarkable except as noted in HPI and below Cardiovascular Cardiovascular: Reports as per HPI, Reports chest pain, Reports lightheadedness and Reports dyspnea Respiratory Respiratory: Reports dyspnea Exam Narrative Exam Narrative: Constitutional: Alert and oriented x3. Appears stated age. Normal body habitus. Head: Normocephalic, no trauma. Eyes: Pupils PERRL, Red reflex noted, EOM's intact. Eyelids symmetrical without lesions, discharge, or swelling. ENT: Bilateral TM's WNL, External ear normal to inspection, no mastoid TTP, swelling, or erythema, Nasal turbinates WNL, no nasal discharge. Normal dentition, Posterior pharynx WNL, no exudate. Chest: RRR, Normal S1, S2, distal pulses intact. Resp: Lungs clear to auscultation bilaterally, no wheezes, rales, or rhonchi. Abdomen: Soft, non-distended, Normoactive bowel sounds all 4 quads. Musculoskeletal: Normal gait, Moves all 4 extremities without difficulty. Skin: No suspicious rashes or lesions. Capillary refill less than 2 sec. Neurologic: Cranial nerves II-XII intact. Alert and oriented x 3. Motor: No deficits noted. Sensory: Intact bilaterally all 4 extremities. Hematologic/Lymphatic: No ecchymosis, no lymphadenopathy. Course Vital Signs Vital signs: Vital Signs Temperature 36.6 C 08/16/24 20:06 Pulse 97 H 08/16/24 20:06 Respiratory Rate 18 08/16/24 20:06 Blood Pressure 129/89 08/16/24 20:06 Pulse Oximetry 98 08/16/24 20:06 Temperature 36.6 C 08/16/24 20:06 Temperature Source Skin 08/16/24 20:06 Pulse 97 H 08/16/24 20:06 Respiratory Rate 18 08/16/24 20:06 Respiratory Effort Normal 08/16/24 20:15 Respiratory Depth Normal 08/16/24 20:15 Respiratory Pattern Normal 08/16/24 20:15 Blood Pressure 129/89 08/16/24 20:06 Pulse Oximetry 98 08/16/24 20:06 Oxygen Delivery Method Room Air 08/16/24 20:06 Oxygen Flow Rate 0 08/16/24 20:06 Pain Level 5 08/16/24 20:06 Medical Decision Making 29-year-old female with a past medical history of noncardiogenic cardiomyopathy, CHF, PTSD, anxiety presents to the ER with a chief complaint of chest pain that began while she was eating dinner. She describes it as going into her back and began feeling clammy and having some shortness of breath. She has not been able to take her metoprolol or spironolactone the last 2 days due to pharmacy shortage. She denies any fever chills nausea vomiting diarrhea or cough. She is ANO x 4. She reports that the pain comes and goes. EKG was reviewed by Dr. Johnson ER attending, old EKG available for review, normal sinus rhythm no ischemic changes noted please see official report. Workup ordered including CBC CMP serial troponins chest x-ray and D-dimer. Patient requesting to be discharged. She is requesting to be discharged home without her lab results. At this time CBC within normal limits D-dimer within normal limits, CMP largely within normal limits initial troponin is 4, the 1 hour troponin is pending at this time. Chest x-ray result is also pending. Serial troponin is less than 4, chest x-ray shows no acute findings. In hemodynamically stable condition, ambulatory from department. This text was generated using [employer] system, please disregard any oddities of phrase or misspellings. Medical Records Medical records reviewed: Yes I reviewed the patient's medical records. Imaging Data Radiologic Study: Imaging: X-Ray Radiologist's impression: TECHNIQUE: Imaging protocol: Radiologic exam of the chest. Views: 2 views. COMPARISON: CR XR CHEST 2V PA LATERAL 12/08/2022 11:26 AM FINDINGS: Lungs: Unremarkable. No consolidation. Pleural spaces: Unremarkable. No pleural effusion. No pneumothorax. Heart/Mediastinum: Unremarkable. No cardiomegaly. Bones/joints: Unremarkable. IMPRESSION: No acute findings. Thank you for allowing us to participate in the care of your patient. Dictated and Authenticated by: Samuel Solitario MD Lab Data Lab results reviewed: Yes I reviewed the patient's lab results. Labs: Laboratory Tests Range/Units 08/16/24 08/16/24 08/16/24 20:50 21:40 23:27 WBC (4.4-10.8) 10^3/uL 8.86 RBC (3.93-5.22) 10^6/uL 4.67 Hgb (11.2-15.7) g/dL 13.0 Hct (36.0-46.0) % 40.6 MCV (80-95) fL 87 MCH (27.0-33.0) pg 27.8 MCHC (32.0-36.0) % 32.0 RDW (11.7-14.6) % 13.0 Plt Count (130-400) 10^3/uL 319 MPV (8.0-11.0) fL 10.6 Immature Gran % % 0.2 Neutrophils % % 60.2 Lymphocytes % % 29.7 Monocytes % % 6.1 Eosinophils % % 2.8 Basophils % % 1.0 Nucleated RBC % (0.0-0.3) % 0.0 Absolute Neutrophils (1.2-6.7) 10^3/uL 5.33 Absolute Lymphocytes (1.2-3.4) 10^3/uL 2.63 Absolute Monocytes (0.1-0.8) 10^3/uL 0.54 Absolute Eosinophils (0.0-0.7) 10^3/uL 0.25 Absolute Basophils (0.0-0.2) 10^3/uL 0.09 D-Dimer (<500) ng/mlFEU 202 Sodium (136-145) mmol/L 141 Potassium (3.5-5.1) mmol/L 3.7 Chloride (98-107) mmol/L 104 Carbon Dioxide (21.0-32.0) mmol/L 30.6 Anion Gap (3-11) mmol/L 6.4 BUN (7-18) mg/dL 11 Creatinine (0.55-1.02) mg/dL 0.8 Est GFR (CKD-EPI 2020) (mL/min/1.73m2) 102.86 Glucose (74-106) mg/dL 88 Calcium (8.5-10.1) mg/dL 9.3 Total Bilirubin (0.2-1.0) mg/dL 0.2 AST (15-37) U/L 11 L ALT (14-59) U/L 15 Alkaline Phosphatase (46-116) U/L 90 Troponin I (<or=51) ng/L 4 < 4 Cancelled Total Protein (6.4-8.2) g/dL 8.3 H Albumin (3.4-5.0) g/dL 3.8 Quality:[facility] Health Related Social Needs: No Data to Display PFSH All Active Problems (Updated 08/16/24 @ 21:48 by Idalmis Olmedo NP) Chest pain (Acute) Leg swelling in in third trimester (Acute) CHF (congestive heart failure) (Chronic) COVID (Acute) COVID-19 (Acute) HRP (high risk ) (Acute) History of cardiomyopathy and congestive heart failure. Has been seen at [facility]. Careful evaluation of cardiac function. High likelihood for delivery at a tertiary facility History of posttraumatic stress disorder (PTSD) (Acute) therapy in the past, sertraline in the past (Acute) Miscarriage, threatened, early (Acute) CHF (congestive heart failure) (Chronic) S/P hernia repair (Chronic) History of section (Chronic) Anxiety (Chronic) Nonischemic cardiomyopathy (Chronic) Buttock pain (Acute) Sciatica (Acute) Medical History Low back pain Chronic depression Menorrhagia Family History Maternal Grandfather Congestive heart disease Mother Bipolar 1 disorder Degenerative disc disease Paternal Cousin Seizures Brother Schizophrenia Father Schizophrenia Paternal Grandmother Breast cancer Social History Smoking/Tobacco Use Status: Former Tobacco Use Quit Date: 06/05/20 Smoking risk assessment performed?: Yes Alcohol Intake: never Drug use: Never Substance use type: marijuana Pets and animals: Yes Pets and animals: cat(s) Sexually active: Yes Do you feel safe at home: Yes Do you feel safe in your relationship?: Yes History History 4 Para 1 Hx # Term Pregnancies Multiple births Hx # Pregnancies Ectopic pregnancies 1 AB induced 2 Hx Number of Living Children AB spontaneous Past Pregnancies Del. Date GA/Weeks # Preg Succ Route Wgt Sex Labor Lgth Anesthesia Location Prov Complic 10/08/13 37 No 3005.049 g Male [facility] Delivery Date: 10/08/13 Last Updated by: Vicky Manuel CNM IOL due to cardiomyopathy, FHR decellerations, emergency under epidural analgesia.
[2024-08-16 20:58] LABS: Abs Immature Grans 0.02 10^3/uL (0.0-0.06); Absolute Basophil Count 0.09 10^3/uL (0.0-0.2); Absolute Eosinophil Count 0.25 10^3/uL (0.0-0.7); Absolute Lymphocyte Count 2.63 10^3/uL (1.2-3.4); Absolute Monocyte Count 0.54 10^3/uL (0.1-0.8); Absolute Neutrophil Count 5.33 10^3/uL (1.2-6.7); Eosinophils % 2.8 %; HCT 40.6 % (36.0-46.0); Immature Grans % 0.2 %; Lymphocytes % 29.7 %; MCH 27.8 pg (27.0-33.0); MCV 87 fL (80-95); MPV 10.6 fL (8.0-11.0); Monocytes % 6.1 %; Neutrophils % 60.2 %; Platelet Count 319 10^3/uL (130-400); RBC 4.67 10^6/uL (3.93-5.22); RDW-SD 40.9 fL; WBC 8.86 10^3/uL (4.4-10.8)
[2024-08-16] MEDS: Spironolactone 25 MG TAB PO (20:59)
[2024-08-16] MEDS: Metoprolol CR 25 MG TABCR PO (20:59)
[2024-08-16 21:23] LABS: ALT 15 U/L (14-59); AST 11 U/L (15-37); Albumin 3.8 g/dL (3.4-5.0); Alkaline Phosphatase 90 U/L (46-116); Anion Gap 6.4 mmol/L (3-11); BUN 11 mg/dL (7-18); Bilirubin, Total 0.2 mg/dL (0.2-1.0); CO2 30.6 mmol/L (21.0-32.0); CREATININE 0.8 mg/dL (0.55-1.02); Calcium 9.3 mg/dL (8.5-10.1); Chloride 104 mmol/L (98-107); Estimated GFR 102.86 (mL/min/1.73m2); Glucose 88 mg/dL (74-106); Potassium 3.7 mmol/L (3.5-5.1); Sodium 141 mmol/L (136-145); Total Protein 8.3 g/dL (6.4-8.2); Troponin I 4 ng/L (<or=51)
[2024-08-16 21:28] LABS: D-Dimer 202 ng/mlFEU (<500)
[2024-08-16 22:11] LABS: Troponin I < 4 ng/L (<or=51)
--- NOTE | 2024-08-16 22:16 | DI.[facility]_ITS ---
PROCEDURE INFORMATION: Exam: XR Chest Exam date and time: 08/16/2024 8:43 PM Age: 29 years old Clinical indication: Other: Chest pain TECHNIQUE: Imaging protocol: Radiologic exam of the chest. Views: 2 views. COMPARISON: CR XR CHEST 2V PA LATERAL 12/08/2022 11:26 AM FINDINGS: Lungs: Unremarkable. No consolidation. Pleural spaces: Unremarkable. No pleural effusion. No pneumothorax. Heart/Mediastinum: Unremarkable. No cardiomegaly. Bones/joints: Unremarkable. IMPRESSION: No acute findings. Dictated and Authenticated by: Samuel Solitario MD. Orderin Honorio Raygoza MD
== END 2024-08-16 21:52 | disposition home or self-care (01) ==
PROVIDERS: Emergency Provider Registered Nurse Emergency; PCP Physician Assistant
DX: R07.9 Chest pain, unspecified (principal); F41.9 Anxiety disorder, unspecified; I42.8 Other cardiomyopathies; Z87.891 Personal history of nicotine dependence
CPT/HCPCS: 80053; 93005; 99285; 71046; 84484; 85025; 85379; 93010; 99284

== ENCOUNTER 2024-10-04 09:23 | Emergency (ER) | payer MEDICAID, SELFPAY ==
[2024-10-04] VITALS (12 sets, daily range): BP systolic 101; BP diastolic 65; PULSE 59–81; RESP 8–20; TEMP 36.9; O2SAT 96–100
--- NOTE | 2024-10-04 09:15 | RT.EKG_ITS ---
APPROVED REPORT Exam: Resting ECG Reason for Exam: dizziness, hx cardiomyopathy Patient Location: E HR:79 bpm ECG Measurements Heart Rate 79 AXIS VA 158 P 21 QRSd 89 QRS 3 QT 376 T 9 QTc 431 Conclusion Sinus rhythm...normal P axis, V-rate 60- 99 No Occlusion AL
--- NOTE | 2024-10-04 09:15 | DI.RAD_ITS ---
Exam(s) XR PORTABLE CHEST AP EXAM: XR PORTABLE CHEST AP CLINICAL HISTORY: Chest pain TECHNIQUE: 2D digital imaging was performed of the chest. One image was obtained. An AP view was obtained. COMPARISON: CR,XR XR CHEST 2V PA LATERAL from 08/16/2024 FINDINGS: The left costophrenic angle is not included on this examination. MEDIASTINUM: Normal. HEART: Normal. PULMONARY VASCULATURE: Normal. LUNGS: Clear. PLEURAL SPACE: No pleural effusion or pneumothorax. BONE:Within normal limits for the patient's age. OTHER FINDINGS:Normal. IMPRESSION: No acute pulmonary findings. DATA REPOSITORY: RADIATION DOSE DELIVERED:
--- NOTE | 2024-10-04 09:20 | W.ED.GENAD ---
Discharge Plan Disposition Patient Disposition: Home Discharge Details Clinical Impression: Pre-syncope Primary Care Provider: Pietro Son ED Provider: Lencho Morris Home Meds and New Rx's Prescriptions: Continued metoprolol succinate 25 mg tablet extended release 24 hr 25 mg PO DAILY ondansetron HCl 4 mg tablet 4 mg PO Q8H PRN (Reason: nausea and vomiting) Qty: 15 0RF spironolactone 25 mg tablet 25 mg PO DAILY Patient Comments: TAKE ONE TABLET BY MOUTH EVERY DAY iron [id number] 150-800-140 mg-mcg-mg tablet PO QDAY Discharge Instructions Additional Instructions: You are seen in the emergency department for your lightheadedness. Your blood work showed no sign of any damage to your heart. As we discussed if you pass out or develop chest pain or shortness of breath please return to the emergency department. Please follow-up with primary care provider. You may or may not benefit from a Holter monitor pending reassessment from your PCP. Your blood work shows your kidneys are working well and your x-ray shows no sign of any pneumonia. Discharge Data Discharge Date/Time-TO BE ENTERED AT DEPARTURE: 10/04/24 11:38 HPI General Date/Time Provider Initiated Documentation: 10/04/24 09:57. HPI Narrative: MDM Emergent evaluation of presyncope in this well-appearing normothermic and not tachycardic female. ECG showing no blocks no dysrhythmias. No signs of arrhythmogenic right ventricular cardiomyopathy. QTc within normal limits. WA within normal limits no signs of WPW. No black or bloody stools to suggest anemia. No focal neurological deficits to suggest CVA. Will assess thyroid function basic electrolytes. Given history of nonischemic cardiomyopathy will obtain troponins to risk stratify. I considered PE however the patient is PERC negative so I did not send a D-dimer. No pain or proportion to suggest necrotizing soft tissue infection. Reassuring vitals and no fever so doubt sepsis. No dysuria or frequency to suggest UTI. No trauma to chest to suggest pneumothorax. Soft nontender abdomen so not suspicious for intra-abdominal infection but do not feel patient requires CT of her abdomen. No tonic-clonic activity or tongue biting to suggest CVA. 10:30 AM CBC lacks anemia thrombocytopenia and leukocytosis. Negative hCG. 11 AM Reassuring initial troponin undetectable. Given recent onset symptoms we will repeat to obtain delta troponin. Comprehensive metabolic panel reassuring no JOHN. No acute electrolyte abnormalities. Magnesium within normal limits. Reassuring TSH. 11:24 AM Patient monitored on telemetry and had reassuring rhythms that were sinus. She had a repeat troponin which was reassuring. She tolerated p.o. We discussed ED return indications for any syncope chest pain shortness of breath. Advised PCP follow-up as needed for her presyncope. She may or may not benefit from Holter monitor pending PCP reassessment. HPI This is a female with a history of cardiomyopathy presenting with dizziness. The patient experienced dizziness while driving, accompanied by blurred vision and blackout spots. She reported a metallic taste in her mouth, reminiscent of blood, during this episode, followed by a brief period of difficulty breathing, which has since resolved. She reports no chest pain but mentions muscle aches. She has not vomited but feels nauseous. She has not had any blood clots in her legs or lungs. She reports no black or bloody stools. She has a persistent cough and reports a racing heart. The patient does not smoke or consume alcohol regularly. She was administered Zofran to alleviate the nausea associated with the dizziness. She has been experiencing palpitations since Wednesday, which have been causing her distress. She reports no current chest pain but is feeling lightheaded. She has a history of cardiomyopathy and was previously diagnosed with heart failure. Her ejection fraction is 50%. Exam General: Well-appearing in no acute distress speaking in complete sentences. Head: Normocephalic, atraumatic. Eye: Extraocular eye movements intact. No conjunctival injection. No scleral icterus. Ear, nose, mouth, throat: Grossly normal inspection. Normal voice, handling secretions normally. Neck: Trachea midline. Cardiovascular: Well-perfused distal extremities. Regular rate and rhythm Respiratory: Nonlabored respiration. Clear lungs bilaterally Gastrointestinal: Nondistended abdomen.Soft nontender Musculoskeletal: No edema. Moving all 4 extremities spontaneously. Skin: Normal for age and race, grossly normal temperature and turgor. No acute rash. Neurologic: Alert and appropriate, no apparent acute deficits. 5 out of 5 bilateral upper and lower extremity strength. Cranial nerves II through XII intact grossly. Psychiatric: Mood and manner are appropriate. Grooming and personal hygiene are appropriate. Related Data Home Medications ?Medication ?Instructions ?Recorded ?Confirmed spironolactone 25 mg tablet 25 mg PO DAILY 04/23/21 08/16/24 metoprolol succinate 25 mg 25 mg PO DAILY 12/24/21 08/16/24 tablet,extended release 24 hr ondansetron HCl 4 mg tablet 4 mg PO Q8H PRN nausea and 05/10/24 08/16/24 vomiting #15 tabs iron [id number] thr-succ tab PO QDAY 08/16/24 150 mg-800 mcg-140 mg tablet Previous Rx's ?Medication ?Instructions ?Recorded ondansetron HCl 4 mg tablet 4 mg PO Q8H PRN nausea and 05/10/24 vomiting #15 tabs Allergies Allergy/AdvReac Type Severity Reaction Status Date / Time pollen extracts AdvReac Mild Other (See Verified 10/04/24 09:47 Comment) General GABRIEL: 3 PFSH All Active Problems (Updated 10/04/24 @ 11:25 by Lencho Morris MD) Pre-syncope (Acute) Leg swelling in in third trimester (Acute) CHF (congestive heart failure) (Chronic) COVID (Acute) COVID-19 (Acute) HRP (high risk ) (Acute) History of cardiomyopathy and congestive heart failure. Has been seen at [facility]. Careful evaluation of cardiac function. High likelihood for delivery at a tertiary facility History of posttraumatic stress disorder (PTSD) (Acute) therapy in the past, sertraline in the past (Acute) Miscarriage, threatened, early (Acute) CHF (congestive heart failure) (Chronic) S/P hernia repair (Chronic) History of section (Chronic) Anxiety (Chronic) Nonischemic cardiomyopathy (Chronic) Buttock pain (Acute) Sciatica (Acute) Medical History Low back pain Chronic depression Menorrhagia Family History Maternal Grandfather Congestive heart disease Mother Bipolar 1 disorder Degenerative disc disease Paternal Cousin Seizures Brother Schizophrenia Father Schizophrenia Paternal Grandmother Breast cancer Social History Smoking/Tobacco Use Status: Former Tobacco Use Quit Date: 06/05/20 Smoking risk assessment performed?: Yes Alcohol Intake: never Drug use: Rarely Substance use type: marijuana Pets and animals: Yes Pets and animals: cat(s) Sexually active: Yes Do you feel safe at home: Yes Do you feel safe in your relationship?: Yes History History 4 Para 1 Hx # Term Pregnancies Multiple births Hx # Pregnancies Ectopic pregnancies 1 AB induced 2 Hx Number of Living Children AB spontaneous Past Pregnancies Del. Date GA/Weeks # Preg Succ Route Wgt Sex Labor Lgth Anesthesia Location Prov Complic 10/08/13 37 No 3005.049 g Male [facility] Delivery Date: 10/08/13 Last Updated by: Vicky Manuel CNM IOL due to cardiomyopathy, FHR decellerations, emergency under epidural analgesia. POCUS Exam (ED) Limited Cardiac Exam DATE OF EXAM: 10/04/24 TIME OF EXAM: 10:29 PROVIDER THAT PERFORMED THE STUDY: Lencho Morris IS THIS A REPEAT EXAM DURING THIS ENCOUNTER: no REASON FOR EXAM: Syncope VISUALIZED STRUCTURES: Four Chambers, Left ventricle and LVOT VIEW OBTAINED: Apical 4-Chamber, Parasternal long-axis and Subxiphoid PERTINENT FINDINGS/IMPRESSION: No pericardial effusion and No RV dilation DIFFERENTIAL DIAGNOSES: Aortic outflow track less than 4 cm, moderate squeeze, RV less than LV, no significant pericardial effusion. Exam complete
[2024-10-04 10:00] LABS: Abs Immature Grans 0.01 10^3/uL (0.0-0.06); HCT 36.9 % (36.0-46.0); HGB 12.2 g/dL (11.2-15.7); Immature Grans % 0.2 %; MCH 28.7 pg (27.0-33.0); MCHC 33.1 % (32.0-36.0); MCV 87 fL (80-95); MPV 10.6 fL (8.0-11.0); Platelet Count 263 10^3/uL (130-400); RBC 4.25 10^6/uL (3.93-5.22); RDW 13.0 % (11.7-14.6); RDW-SD 41.0 fL; WBC 6.53 10^3/uL (4.4-10.8)
[2024-10-04] MEDS: Normal Saline 500 ML IV (10:12)
[2024-10-04 10:19] LABS: HCG Qual (Serum) Negative
[2024-10-04 10:26] LABS: TSH (W/Ref FT4) 1.02 uIU/mL (0.36-3.74)
[2024-10-04 10:26] LABS: INR 1.1 (0.9-1.1); Prothrombin Time 10.8 sec (9.1-11.1)
[2024-10-04 10:29] LABS: ALT 15 U/L (14-59); AST 11 U/L (15-37); Albumin 3.5 g/dL (3.4-5.0); Alkaline Phosphatase 69 U/L (46-116); Anion Gap 7.1 mmol/L (3-11); BUN 11 mg/dL (7-18); Bilirubin, Total 0.4 mg/dL (0.2-1.0); CO2 27.9 mmol/L (21.0-32.0); Calcium 9.0 mg/dL (8.5-10.1); Chloride 106 mmol/L (98-107); Estimated GFR 120.74 (mL/min/1.73m2); Glucose 101 mg/dL (74-106); Magnesium 2.0 mg/dL (1.8-2.4); Potassium 3.9 mmol/L (3.5-5.1); Sodium 141 mmol/L (136-145); Total Protein 7.2 g/dL (6.4-8.2)
[2024-10-04 10:31] LABS: Troponin I < 4 ng/L (<or=51)
[2024-10-04 11:19] LABS: Troponin I < 4 ng/L (<or=51)
== END 2024-10-04 11:38 | disposition home or self-care (01) ==
PROVIDERS: Emergency Provider Emergency Medicine; PCP Physician Assistant
DX: R55 Syncope and collapse (principal); Z87.891 Personal history of nicotine dependence
CPT/HCPCS: 36415; 80053; 93005; 93308; 96360; 99285; 71045; 83735; 84443; 84484; 84703; 85025; 85610; 93010; 99284